=== PATIENT | male | born 1970 | race Caucasian/White ===

== ENCOUNTER 2018-04-14 20:06 | Observation (INO) | payer BC ==
[~2018-04-14] VITALS: Ht 182.9 cm; Wt 141.2 kg
[2018-04-14 20:48] LABS: BASOPHILS % 0.5 % (0.0-1.0); EOSINOPHILS # (AUTO) 0.1 (0.0-0.4); EOSINOPHILS % 0.9 % (0.0-6.0); HEMOGLOBIN 12.7 g/dL (14.0-18.0); LYMPHOCYTES # (AUTO) 1.2 (1.0-3.2); LYMPHOCYTES % 21.1 % (18.0-39.1); MEAN CORPUSCULAR HEMOGLOBIN 32.3 pg (28-32); MEAN CORPUSCULAR HGB CONC 34.3 g/dL (31-35); MEAN CORPUSCULAR VOLUME 94.1 fL (81-99); MONOCYTES # (AUTO) 0.5 (0.2-0.8); MONOCYTES % 8.5 % (4.4-11.3); NEUTROPHILS # (AUTO) 3.9 (2.1-6.9); NEUTROPHILS % 68.8 % (38.7-80.0); PLATELET COUNT 179 x10e3/uL (140-360); RED BLOOD COUNT 3.93 x10e6/uL (4.3-5.7); RED CELL DISTRIBUTION WIDTH 13.4 % (11.7-14.4)
[2018-04-14 20:58] LABS: BILIRUBIN,URINE NEGATIVE (NEGATIVE); CLARITY,URINE CLEAR (CLEAR); COLOR,URINE YELLOW (YELLOW); KETONES,URINE NEGATIVE (NEGATIVE); LEUKOCYTE ESTERASE ,URINE NEGATIVE (NEGATIVE); NITRITE,URINE NEGATIVE (NEGATIVE); PROTEIN,URINE DIPSTICK NEGATIVE (NEGATIVE); URINE UROBILINOGEN 0.2 mg/dL (0.2 - 1)
[2018-04-14 21:00] LABS: AMPHETAMINES SCREEN,URINE NEGATIVE (NEGATIVE); PHENCYCLIDINE SCREEN,URINE NEGATIVE (NEGATIVE)
[2018-04-14 21:01] LABS: BENZODIAZEPINES SCREEN,URINE POSITIVE (NEGATIVE)
[2018-04-14 21:09] LABS: ALBUMIN 3.6 g/dL (3.5-5.0); ALBUMIN/GLOBULIN RATIO 1.1 (0.8-2.0); ANION GAP 16.8 mmol/L (8-16); CALCIUM 9.6 mg/dL (8.4-10.2); CREATININE, SERUM 1.48 mg/dL (0.72-1.25); POTASSIUM 4.8 mmol/L (3.5-5.1)
[2018-04-14 21:14] LABS: B-TYPE NATRIURETIC PEPTIDE2 10.2 pg/mL (0-100)
[2018-04-14 21:16] LABS: CREATINE KINASE MB 0.6 ng/mL (0-5.0)
[2018-04-14] MEDS ORDERED: SODIUM CHLORIDE 0.9% 100 ML 100 ML ONE (22:23)
[2018-04-14] MEDS ORDERED: IOPAMIDOL 370 MG/ML 200 ML INFUS..BTL INJ ONE (22:24)
--- NOTE | 2018-04-14 22:24 | Diagnostic Imaging Report ---
EXAMINATION: Head CT without contrast. HISTORY:Dizziness. COMPARISON:None. TECHNIQUE: Multidetector axial images were obtained from the foramen magnum to the vertex without contrast. The images were reconstructed using brain and bone algorithms. Thin section brain images were reformatted into coronal and sagittal planes. Dose modulation, iterative reconstruction, and/or weight based adjustment of the mA/kV was utilized to reduce the radiation dose to as low as reasonably achievable. Intravenous contrast: None IMAGE QUALITY: Acceptable. FINDINGS: Skull/scalp: No lytic or blastic. lesions. No surgical changes. Parenchyma: No abnormal density. No acute hemorrhage, mass or acute major vascular territorial infarct. Arteries: No density suggestive of thrombosis. Dural sinuses: No abnormal density suggestive of thrombosis. Ventricles: No hydrocephalus or displacement. Extra-axial spaces: No abnormal density. Brain volume: Mild to moderate generalized cerebral volume loss. Craniocervical junction: No mass, Chiari malformation, or basilar invagination. Sella: No mass. Paranasal/mastoid sinuses: Imaged portions unremarkable. IMPRESSION: No acute intracranial abnormality. Mild to moderate generalized cerebral volume loss, advanced for patient's given age. Signed by: Dr. Ada Brandt M.D. on 04/14/2018 10:21 PM
--- NOTE | 2018-04-14 22:34 | Diagnostic Imaging Report ---
CHEST SINGLE (PORTABLE), 04/14/2018 8:15 PM Technique: CHEST SINGLE (PORTABLE) Comparison: None Clinical history: Chest pain Findings: Limited by portable technique and soft tissue attenuation. Normal cardiomediastinal silhouette for technique. Low lung volumes with minimal left basilar atelectasis or scar. No effusion or pneumothorax. Impression: 1. Lines/Tubes: None 2. No acute abnormality. Signed by: Dr Carol Roman MD on 04/14/2018 10:31 PM
--- NOTE | 2018-04-14 22:56 | Diagnostic Imaging Report ---
EXAM: CTA ABD/PELVIS, CTA CHEST INDICATION: \S\CHEST PAIN/BACK PAIN BLACKING OUT \S\Y COMPARISON: None. TECHNIQUE: Chest, abdomen and pelvis were scanned utilizing a multidetector helical scanner from the lung apex to the pubic symphysis. Coronal and sagittal reformations were obtained. CT low dose techniques were utilized, as applicable. 3-D reconstructed images of the vasculature were generated using a specialized workstation. IV CONTRAST: 100 mL Isovue 300/370 FINDINGS: LINES and TUBES: None. LUNGS/AIRWAYS/PLEURA: Linear left basilar atelectasis or scarring. No consolidation or edema. Several incidental 1 to 2 mm nodules, for example in the right middle lobe and lower lobes on image 55, 58, 73, 74. The pleural spaces are clear. HEART AND MEDIASTINUM: No mediastinal, hilar or axillary lymphadenopathy. The heart is normal in size.. There is no pericardial effusion. Scattered coronary artery calcification. HEPATOBILIARY/GALLBLADDER: Possible hepatic steatosis with pericholecystic sparing. No focal lesions SPLEEN: No splenomegaly. PANCREAS: No masses or ductal dilation. ADRENALS: No nodules. KIDNEYS/URETERS: No hydronephrosis. GI TRACT: No obstruction or wall thickening. Normal appendix. PELVIC ORGANS/BLADDER: Unremarkable. LYMPH NODES: No lymphadenopathy. VESSELS: The thoracic aorta and central branch vessels are patent, normal caliber. Left vertebral artery arises from the arch. No significant atherosclerotic change. The abdominal aorta, common iliac, external iliac, visualized internal iliac and common femoral arteries arteries are patent, normal caliber. Minimal right common iliac atherosclerotic calcification. The celiac axis, SMA, bilateral renal arteries, and BRETT are patent. [employer] measurements are as follows: Aortic root, 3.5 cm Mid thoracic aorta, 3.1 cm Transverse aorta 2.6 cm Descending aorta distal to the left subclavian artery takeoff, 2.6 cm Aorta at the diaphragmatic hiatus, 2.4 cm Suprarenal abdominal aorta, 2.1 cm Infrarenal abdominal aorta, 1.7 cm Aorta above the bifurcation, 1.5 cm Right common iliac artery, 0.9 cm Left common iliac artery, 1 cm PERITONEUM / RETROPERITONEUM: No free air or fluid. BONES/SOFT TISSUES: No acute findings. Mild cutaneous/subcutaneous inflammatory changes in the right lower quadrant. IMPRESSION: 1. No acute aortic pathology. 2. No acute abnormality in the chest, abdomen or pelvis. Signed by: Dr Carol Roman MD on 04/14/2018 10:52 PM
[2018-04-15] VITALS (7 sets, daily range): BP systolic 109–149; BP diastolic 77–102
[2018-04-15] MEDS ORDERED: INSULIN REGULAR, HUMAN 100 UNIT/1 ML 3ML VIAL SQ ONE (00:45)
[2018-04-15] MEDS ORDERED: INSULIN REGULAR, HUMAN 100 UNIT/1 ML 3ML VIAL IV ONE (00:45)
[2018-04-15] MEDS ORDERED: DEXTROSE 50% SYRINGE 50 ML IV PRN (01:30)
[2018-04-15] MEDS ORDERED: ONDANSETRON HCL INJ 2 MG/ML VIAL IV PRN (01:30)
[2018-04-15] MEDS ORDERED: ACETAMINOPHEN-1 EAC4 PO (04:27)
[2018-04-15] MEDS ORDERED: LOPRESSOR25 MG PO (04:27)
[2018-04-15] MEDS ORDERED: LISINOPRIL10 MG PO (04:27)
[2018-04-15] MEDS ORDERED: METOPROLOL TART50 MG PO (04:27)
[2018-04-15] MEDS ORDERED: METFORMIN HCL1000 MG PO (04:27)
[2018-04-15] MEDS ORDERED: HYDROCODON-ACE1 EAC9 PO (04:27)
[2018-04-15] MEDS ORDERED: NORTRIPTYLINE H50 MG PO (04:27)
[2018-04-15] MEDS ORDERED: GLIPIZIDE10 MG PO (04:27)
[2018-04-15] MEDS ORDERED: CLOPIDOGREL75 MG PO (04:27)
[2018-04-15] MEDS ORDERED: ATORVASTATIN CA40 MG PO (04:27)
[2018-04-15] MEDS ORDERED: METFORMIN HCL500 MG PO (04:27)
[2018-04-15] MEDS ORDERED: TRAZODONE HCL100 MG PO (04:27)
[2018-04-15] MEDS ORDERED: ZYVOX600 MG (04:27)
[2018-04-15] MEDS ORDERED: PRAZOSIN HCL2 MG PO (04:27)
[2018-04-15] MEDS ORDERED: GABAPENTIN300 MG PO (04:27)
[2018-04-15] MEDS ORDERED: TYLENOL # 31 EA PO (04:27)
[2018-04-15] MEDS ORDERED: DOXAZOSIN MESYLA1 MG (04:27)
[2018-04-15] MEDS ORDERED: PAROXETINE HCL30 MG PO (04:27)
[2018-04-15] MEDS ORDERED: SODIUM CHLORIDE 0.9% 500ML 500 ML IV ONE (04:30)
[2018-04-15 05:37] LABS: CREATINE KINASE MB 0.4 ng/mL (0-5.0)
[2018-04-15 08:05] LABS: BASOPHILS % 0.4 % (0.0-1.0); EOSINOPHILS # (AUTO) 0.1 (0.0-0.4); EOSINOPHILS % 1.6 % (0.0-6.0); HEMATOCRIT 36.8 % (38.2-49.6); HEMOGLOBIN 12.6 g/dL (14.0-18.0); LYMPHOCYTES # (AUTO) 1.7 (1.0-3.2); LYMPHOCYTES % 33.9 % (18.0-39.1); MEAN CORPUSCULAR HEMOGLOBIN 32.1 pg (28-32); MEAN CORPUSCULAR HGB CONC 34.2 g/dL (31-35); MEAN CORPUSCULAR VOLUME 93.6 fL (81-99); MONOCYTES # (AUTO) 0.5 (0.2-0.8); MONOCYTES % 9.4 % (4.4-11.3); NEUTROPHILS # (AUTO) 2.7 (2.1-6.9); NEUTROPHILS % 54.3 % (38.7-80.0); PLATELET COUNT 176 x10e3/uL (140-360); RED BLOOD COUNT 3.93 x10e6/uL (4.3-5.7); RED CELL DISTRIBUTION WIDTH 13.5 % (11.7-14.4)
[2018-04-15 08:25] LABS: ALANINE AMINOTRANSFERASE 43 IU/L (0-55); ALBUMIN 3.6 g/dL (3.5-5.0); ALBUMIN/GLOBULIN RATIO 1.2 (0.8-2.0); ALKALINE PHOSPHATASE 58 IU/L (40-150); ANION GAP 14.1 mmol/L (8-16); BLOOD UREA NITROGEN 12 mg/dL (7-26); BUN/CREATININE RATIO 11 (6-25); CALCIUM 9.7 mg/dL (8.4-10.2); CARBON DIOXIDE 25 mmol/L (22-29); CHLORIDE 99 mmol/L (98-107); CREATININE, SERUM 1.08 mg/dL (0.72-1.25); EST GLOMERULAR FILTRATION RATE > 60 ML/MIN (60-); GLUCOSE 242 mg/dL (74-118); POTASSIUM 4.1 mmol/L (3.5-5.1); SODIUM 134 mmol/L (136-145)
[2018-04-15] MEDS: ASPIRIN 81 MG ENTERIC COATED PO SCH (09:24)
[2018-04-15] MEDS: INSULIN REGULAR, HUMAN 100 UNIT/1 ML 3ML VIAL SQ SCH ×4 (09:24→19:46)
[2018-04-15] MEDS ORDERED: LORAZEPAM INJ 2 MG/ML VIAL IV ONE (13:00)
[2018-04-15] MEDS ORDERED: LORAZEPAM INJ 2 MG/ML VIAL ONE (13:05)
[2018-04-15] MEDS: LORAZEPAM INJ 2 MG/ML VIAL IV PRN ×2 (13:58→19:39)
--- NOTE | 2018-04-15 14:35 | Diagnostic Imaging Report ---
Exam: Brain MRI without IV contrast History: Seizure like activity Comparison studies: Head CT 04/14/2018 Technique: Sagittal axial T2 FS, axial T1, axial DWI, axial T2*GRE and axial T2 FLAIR as well as dedicated coronal T2 and T2 FLAIR sequences through the temporal lobes an hippocampi. Intravenous contrast: None Findings: Exam is moderately limited by artifacts related to patient motion. In spite of this limitation: Scalp: Normal in signal. No masses. Bone marrow: Normal in signal intensity. Brain sulci: Appropriate for age. Ventricles: Normal in size. No hydrocephalus. Extra axial spaces: No mass, no fluid collection. Parenchyma: No mass or hemorrhage. The inferior cerebellum lies outside the imaged [id number] on the DWI sequence. No abnormal restricted diffusion within the included imaged sections through the brain on the DWI sequence. Moreover, no gross signal abnormalities in the cerebellum on the remaining pulse sequences. The hippocampi, forniceal columns and mamillary bodies are grossly normal in size and without gross signal abnormalities. No gross abnormalities of cortical development/cortical migration though the exam is moderately limited evaluation these abnormalities due to degree of motion artifacts. Suprasellar region: No abnormalities. Craniocervical junction: Patent foramen magnum. No Chiari malformation. Vessels: Normal flow-voids in the arteries and sinuses. IMPRESSION: 1. Exam is moderately limited by artifacts related to patient motion. 2. No mass or gross acute abnormalities. If symptoms persist, recommend follow-up MRI when clinically appropriate to further evaluate given the limitations of this exam. Signed by: Dr. Breezy Mena M.D. on 04/15/2018 2:31 PM
[2018-04-15 15:40] LABS: CREATINE KINASE 37 IU/L (30-200)
--- NOTE | 2018-04-15 16:06 | History and Physical ---
Patient in ICU admission. PRIMARY CARE PROVIDER: Is not known. FLIGHT COORDINATOR: Dr. Marion Wilkinson. CHIEF COMPLAINT: Multiple syncopal episodes as evidenced on the emergency room intake. Patient is lethargic now status post MRI of the brain that was done which is unremarkable. The patient may have received benzodiazepines for anxiety and claustrophobia while taking the MRI. HISTORY OF PRESENT ILLNESS: Patient is a 47-year-old male, basically presented through the emergency room with multiple passing-out episodes occurred approximately 2 p.m. on the day of his presentation. The patient subsequently recovered. Event was witnessed by other people. Apparently he may have had episodes apparent of possible seizure. The patient had no seizure activity in the emergency room. He is morbidly obese. Much history is not able to obtain at this time. The patient is only telling that he has lower back pain and he has stopped pain medication some time ago. Baseline diabetes. When he came into the emergency room, his blood sugar was greater than 500. The patient is otherwise stable at this time. PAST MEDICAL HISTORY: Per chart including hypertension, obesity, diabetes type 2, possible COPD, congestive heart failure, recurrent chronic disease spell, osteoarthritis, chronic lower back pain, history of left knee surgery, left wrist surgery, diabetic neuropathy, dyslipidemia, anxiety disorder, possible depression, insomnia, obstructive sleep apnea, morbid obesity. SOCIAL HISTORY: Not available. HOME MEDICATIONS: Prazosin, trazodone, Paxil, nortriptyline, Lipitor, Tylenol No. 4, metoprolol tartrate, metformin, lisinopril, [place], gabapentin, Plavix and Tylenol No. 3. PHYSICAL EXAMINATION: VITAL SIGNS: Temperature is 98. Blood pressure 122/79. Pulse rate is 98. Respirations 20. GENERAL: The patient is sleeping, mildly arousable. HEENT: Normocephalic, atraumatic, anicteric. NECK: Supple grossly. PULMONARY: Diminished breath sounds. CARDIOVASCULAR: Regular rate and rhythm. ABDOMEN: Soft. Morbidly obese. EXTREMITIES: No cyanosis or edema. NEUROLOGIC: Moving all extremities. There is no gross focal deficit. LABORATORY: Urine toxicology including positive for opioid. Valproic acid level is less than 2. Positive for benzodiazepines. Chemistry: Sodium is 134, potassium 4.1, chloride 99, bicarb 25, BUN is 12, creatinine 1.0, glucose is 555. WBC is 5.6, hemoglobin 12.7, hematocrit is 37 and platelet is 179. Urinalysis positive for glucose. IMAGING DONE: Including brain MRI, abdominal and pelvic CTA, brain CT, chest x-ray, chest CTA, otherwise no evidence of acute findings. IMPRESSION: 1. Seizing episode, etiology unclear. This could be drug withdrawal or seizure versus other etiology. 2. Multiple chronic baseline problems, diabetes, hypertension, obesity, obstructive sleep apnea, depression/anxiety, et cetera. 3. Severe hyperglycemia may have contributed to the patient's symptoms as well. PLAN: Insulin sliding-scale coverage. Glycohemoglobin, A1c, TSH. Multiple imaging that is already done, no need for new testing unless needed by Dr. Marion Wilkinson, neurology in consultation. Patient also had an EEG done just now. The results are still pending. The patient is stable. Continue to monitor closely at this time. Resume home medication as appropriate. Job#: [id number] SOL
[2018-04-15] MEDS ORDERED: METOPROLOL TARTRATE 25 MG TAB PO SCH (21:00)
[2018-04-15] MEDS ORDERED: ATORVASTATIN 40 MG TAB PO SCH (21:00)
--- NOTE | 2018-04-15 21:47 | Electroencephalogram ---
DATE OF STUDY: April 15, 2018 REQUESTING PHYSICIAN: Marion Wilkinson MD PATIENT HISTORY: This 47-year-old man with history of possible seizures and posttraumatic stress disorder is having an EEG for evaluation of epileptiform activity. The patient is taking the following medications that might affect the EEG: Ativan. TECHNIQUE: This is a routine, portable EEG, recorded digitally, using the International 10/20 Electrode Placement System, and done in the inpatient setting with the patient awake and drowsy. The EEG is technically limited because of muscle and electrical artifact. DESCRIPTION: Well-organized, well-sustained, 6-7 Hz activity is best seen symmetrically in the posterior head regions. Beta frequency activity is intermixed and is likely due to medication effect. No focal or epileptiform activity is recorded. Sleep is not recorded. Photic stimulation does not produce a driving response. Hyperventilation is not performed. INTERPRETATION: This EEG is abnormal with the patient awake and drowsy due to diffuse slowing of background electrocortical activity compatible with a mild generalized encephalopathy. No epileptiform discharges are seen. Clinical correlation is recommended. Job#: [id number]
[2018-04-15 21:52] LABS: CREATINE KINASE 35 IU/L (30-200)
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
[2018-04-16] VITALS (7 sets, daily range): BP systolic 101–124; BP diastolic 70–89
[2018-04-16] MEDS: ACETAMINOPHEN 325 MG TAB PO PRN ×2 (00:19→08:19)
[2018-04-16 04:37] LABS: BASOPHILS % 0.5 % (0.0-1.0); EOSINOPHILS # (AUTO) 0.1 (0.0-0.4); EOSINOPHILS % 1.5 % (0.0-6.0); HEMATOCRIT 37.5 % (38.2-49.6); HEMOGLOBIN 12.8 g/dL (14.0-18.0); LYMPHOCYTES % 33.5 % (18.0-39.1); MEAN CORPUSCULAR HEMOGLOBIN 32.1 pg (28-32); MEAN CORPUSCULAR HGB CONC 34.1 g/dL (31-35); MONOCYTES # (AUTO) 0.4 (0.2-0.8); MONOCYTES % 6.9 % (4.4-11.3); NEUTROPHILS # (AUTO) 3.4 (2.1-6.9); NEUTROPHILS % 57.3 % (38.7-80.0); PLATELET COUNT 182 x10e3/uL (140-360); RED BLOOD COUNT 3.99 x10e6/uL (4.3-5.7); RED CELL DISTRIBUTION WIDTH 13.5 % (11.7-14.4)
[2018-04-16 05:00] LABS: ALANINE AMINOTRANSFERASE 42 IU/L (0-55); ALBUMIN 3.5 g/dL (3.5-5.0); ALBUMIN/GLOBULIN RATIO 1.1 (0.8-2.0); ALKALINE PHOSPHATASE 52 IU/L (40-150); ANION GAP 15.4 mmol/L (8-16); BLOOD UREA NITROGEN 13 mg/dL (7-26); BUN/CREATININE RATIO 12 (6-25); CALCIUM 9.7 mg/dL (8.4-10.2); CARBON DIOXIDE 25 mmol/L (22-29); CHLORIDE 101 mmol/L (98-107); CREATININE, SERUM 1.08 mg/dL (0.72-1.25); EST GLOMERULAR FILTRATION RATE > 60 ML/MIN (60-); GLUCOSE 205 mg/dL (74-118); POTASSIUM 4.4 mmol/L (3.5-5.1); SODIUM 137 mmol/L (136-145)
[2018-04-16 05:14] LABS: MAGNESIUM 2.2 MG/DL (1.3-2.1); PHOSPHORUS 4.7 MG/DL (2.3-4.7)
[2018-04-16 05:36] LABS: THYROID STIMULATING HORMONE 0.423 uIU/mL (0.350-4.940)
[2018-04-16] MEDS: INSULIN REGULAR, HUMAN 100 UNIT/1 ML 3ML VIAL SQ SCH ×2 (07:30→11:55)
[2018-04-16] MEDS: ASPIRIN 81 MG ENTERIC COATED PO SCH (08:19)
[2018-04-16] MEDS ORDERED: CLOPIDOGREL BISULFATE 75 MG TAB PO SCH (09:00)
[2018-04-16] MEDS ORDERED: LISINOPRIL 10 MG TAB PO SCH (09:00)
--- NOTE | 2018-04-16 16:48 | Discharge Summary ---
FINAL DIAGNOSES: 1. Seizure. 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 2. Multiple chronic baseline problems including posttraumatic stress disorder psychiatric disorder. 3. Chronic pain secondary to lower back pain. SUMMARY: A 47-year-old male came in with a witnessed seizure. Please review the extensive complete comprehensive evaluation by Dr. Marion Wilkinson regarding the patient's both medical and social problems. Patient had a pretty much unremarkable MRI of the brain without any acute finding. He also has a negative EEG as well. The symptoms and event most likely secondary to pseudoseizure. I did discuss with the patient this issue, and he is agreeable to discuss with his psychiatrist upon followup. Patient stable. I will discharge the patient home today. I discussed with the patient at length to follow up with his psychiatrist, and he is very agreeable and expressed understanding of his condition. The patient will discharge home today. Resume home medication. Job#: [id number] EV
== END 2018-04-16 15:13 | disposition home or self-care (01) ==
LOC: ER 20:06 → ERHOLD 04-15 01:36 → ICU 04-15 08:04 → MED/SURG 04-16 13:11
PROVIDERS: ADMIT Internal Medicine; ATTEND Internal Medicine
DX: G40.89 Other seizures (principal); R07.9 Chest pain, unspecified; I50.9 Heart failure, unspecified; E66.01 Morbid (severe) obesity due to excess calories; G47.33 Obstructive sleep apnea (adult) (pediatric); I11.0 Hypertensive heart disease with heart failure; E11.65 Type 2 diabetes mellitus with hyperglycemia; F43.10 Post-traumatic stress disorder, unspecified; Z88.5 Allergy status to narcotic agent; E11.42 Type 2 diabetes mellitus with diabetic polyneuropathy; Z88.0 Allergy status to penicillin; Z82.49 Family history of ischemic heart disease and other diseases of the circulatory system; Z83.3 Family history of diabetes mellitus; Z68.41 Body mass index [BMI] 40.0-44.9, adult
CPT/HCPCS: 36415 ×3; 70450; 70551; 71045; 71275; 74174; 80053 ×3; 80164; 80307; 81001; 82550 ×2; 82553 ×2; 82948 ×2; 83036; 83605; 83735; 83880; 84100; 84443; 84484 ×2; 85025 ×3; 93005; 95812; 99284; G0378 ×2; J2060; J2405 ×2; Q9967

== ENCOUNTER 2018-05-06 01:57 | Emergency (ER) | payer BC ==
[~2018-05-06] VITALS: Ht 182.9 cm; Wt 141.1 kg
[~2018-05-06 01:57] MED LIST: ACETAMINOPHEN-1 EAC4 PO; ATORVASTATIN CA40 MG PO; CLOPIDOGREL75 MG PO; DOXAZOSIN MESYLA1 MG; GABAPENTIN300 MG PO; GLIPIZIDE10 MG PO; HYDROCODON-ACE1 EAC9 PO; LISINOPRIL10 MG PO; LOPRESSOR25 MG PO; METFORMIN HCL1000 MG PO; METFORMIN HCL500 MG PO; METOPROLOL TART50 MG PO; NORTRIPTYLINE H50 MG PO; PAROXETINE HCL30 MG PO; PRAZOSIN HCL2 MG PO; TRAZODONE HCL100 MG PO; TYLENOL # 31 EA PO; ZYVOX600 MG
[2018-05-06] MEDS ORDERED: SODIUM CHLORIDE 0.9% 1000ML 1,000 ML IV STA (02:03)
[2018-05-06] MEDS ORDERED: ASPIRIN 81 MG CHEW TAB PO ONE (02:15)
[2018-05-06 02:29] LABS: BASOPHILS % 0.3 % (0.0-1.0); EOSINOPHILS # (AUTO) 0.1 (0.0-0.4); EOSINOPHILS % 0.7 % (0.0-6.0); HEMATOCRIT 33.9 % (38.2-49.6); HEMOGLOBIN 11.7 g/dL (14.0-18.0); LYMPHOCYTES # (AUTO) 1.4 (1.0-3.2); LYMPHOCYTES % 20.4 % (18.0-39.1); MEAN CORPUSCULAR HEMOGLOBIN 32.1 pg (28-32); MEAN CORPUSCULAR HGB CONC 34.5 g/dL (31-35); MEAN CORPUSCULAR VOLUME 92.9 fL (81-99); MONOCYTES # (AUTO) 0.4 (0.2-0.8); NEUTROPHILS % 72.2 % (38.7-80.0); PLATELET COUNT 154 x10e3/uL (140-360); RED BLOOD COUNT 3.65 x10e6/uL (4.3-5.7); RED CELL DISTRIBUTION WIDTH 13.2 % (11.7-14.4)
--- NOTE | 2018-05-06 02:47 | Diagnostic Imaging Report ---
EXAM: CHEST SINGLE (PORTABLE), AP 1 view INDICATION: Dizzy, fall COMPARISON: AP view the chest vertebra 2017 FINDINGS: LINES/TUBES: None LUNGS: No consolidations or edema. PLEURA: No effusions or pneumothorax. HEART AND MEDIASTINUM: Normal size and contour. BONES AND SOFT TISSUES: No acute findings. IMPRESSION: No acute thoracic abnormality. Signed by: Dr. Erma Calderon M.D. on 05/06/2018 2:44 AM
[2018-05-06 02:50] LABS: ALANINE AMINOTRANSFERASE 36 IU/L (0-55); ALBUMIN 3.6 g/dL (3.5-5.0); ALBUMIN/GLOBULIN RATIO 1.2 (0.8-2.0); ALKALINE PHOSPHATASE 72 IU/L (40-150); BLOOD UREA NITROGEN 10 mg/dL (7-26); BUN/CREATININE RATIO 9 (6-25); CALCIUM 9.5 mg/dL (8.4-10.2); CARBON DIOXIDE 21 mmol/L (22-29); CHLORIDE 100 mmol/L (98-107); CREATINE KINASE 58 IU/L (30-200); CREATININE, SERUM 1.16 mg/dL (0.72-1.25); EST GLOMERULAR FILTRATION RATE > 60 ML/MIN (60-); GLUCOSE 251 mg/dL (74-118); SODIUM 135 mmol/L (136-145)
[2018-05-06] MEDS ORDERED: TETANUS/DIPHTHERIA TOX ADULT 0.5 ML SYR ONE (02:52)
[2018-05-06 03:05] LABS: BILIRUBIN,URINE NEGATIVE (NEGATIVE); CLARITY,URINE CLEAR (CLEAR); COLOR,URINE YELLOW (YELLOW); KETONES,URINE NEGATIVE (NEGATIVE); LEUKOCYTE ESTERASE ,URINE NEGATIVE (NEGATIVE); NITRITE,URINE NEGATIVE (NEGATIVE); PROTEIN,URINE DIPSTICK NEGATIVE (NEGATIVE); RBC,URINE 0-5 /HPF (0-5); URINE UROBILINOGEN 0.2 mg/dL (0.2 - 1); WBC,URINE (MAN) 0-5 /HPF (0-5)
[2018-05-06 03:06] LABS: MUCUS,URINE FEW (RARE)
[2018-05-06] MEDS ORDERED: NITROGLYCERIN0.4 MG SL (03:21)
[2018-05-06] MEDS ORDERED: METOPROLOL TART50 MG PO (03:21)
[2018-05-06] MEDS ORDERED: GABITRIL4 MG PO (03:21)
[2018-05-06] MEDS ORDERED: ATORVASTATIN CA80 MG PO (03:21)
[2018-05-06] MEDS ORDERED: ASPIRIN81 MG PO (03:21)
[2018-05-06] MEDS ORDERED: DIAZEPAM10 MG PO (03:21)
[2018-05-06] MEDS ORDERED: TRAZODONE HCL300 MG PO (03:21)
[2018-05-06] MEDS ORDERED: DOXEPIN HCL25 MG PO (03:21)
[2018-05-06] MEDS ORDERED: DOXAZOSIN MESYLA1 MG PO (03:21)
[2018-05-06] MEDS ORDERED: GLIPIZIDE10 MG PO (03:21)
[2018-05-06] MEDS ORDERED: JANUVIA50 MG PO (03:21)
[2018-05-06] MEDS ORDERED: NORTRIPTYLINE H25 MG PO (03:21)
[2018-05-06] MEDS ORDERED: METOPROLOL SUCC25 MG PO (03:21)
[2018-05-06 05:28] LABS: CREATINE KINASE MB 0.4 ng/mL (0-5.0)
[2018-05-06] MEDS ORDERED: HYDROCODONE/APAP 7.5MG-325MG 1 EA TAB PO STA (06:13)
== END 2018-05-06 06:33 | disposition home or self-care (01) ==
LOC: ER 01:57
DX: R42 Dizziness and giddiness (principal); R53.1 Weakness; R07.2 Precordial pain
CPT/HCPCS: 36415; 71045; 80053; 81001; 82550; 82553; 84484; 85025; 90471; 90714; 93005; 99284; J7030

== ENCOUNTER 2018-05-27 15:43 | Emergency (ER) | payer BC ==
[~2018-05-27] VITALS: Ht 182.9 cm; Wt 141.1 kg
[~2018-05-27 15:43] MED LIST changes: +ASPIRIN81 MG PO; +ATORVASTATIN CA80 MG PO; +DIAZEPAM10 MG PO; +DOXAZOSIN MESYLA1 MG PO; +DOXEPIN HCL25 MG PO; +GABITRIL4 MG PO; +JANUVIA50 MG PO; +METOPROLOL SUCC25 MG PO; +NITROGLYCERIN0.4 MG SL; +NORTRIPTYLINE H25 MG PO; +TRAZODONE HCL300 MG PO
--- OUTSIDE RECORDS SUMMARY | 2018-05-27 15:46 | XMS REPORT | Clinical Summary ---
Author Author [facility] Address Unknown Phone Unavailable Care Team Providers Care Stock And Station Agent Name Role Phone PCP Unavailable Allergies Active Allergy Reactions Severity Noted Date Comments Codeine 05/07/2018 Methylprednisolone Itching 12/24/2016 Penicillins Itching 12/24/2016 Ketorolac Itching 12/24/2016 Current Medications Prescription Sig. Disp. Refills Start End Date Status Date hydrOXYzine (VISTARIL) 50 Take 50 mg by mouth 3 Active MG capsule (three) times daily as needed for Itching. PARoxetine (PAXIL) 40 MG Take 60 mg by mouth every Active tabletIndications: morning. Depression associated with Bipolar Disorder gabapentin (NEURONTIN) Take 300 mg by mouth. Active 300 MG capsule nortriptyline (PAMELOR) Take 50 mg by mouth Active 50 MG capsuleIndications: nightly. depression albuterol HFA (VENTOLIN Inhale 1 puff by mouth Active HFA) 90 mcg/actuation via inhaler every 6 (six) inhaler hours as needed for Wheezing. metoprolol (TOPROL-XL) 25 Take 1.5 tablets (37.5 mg 135 tablet 0 05/09/20 08/07/20 Active MG 24 hr tablet total) by mouth daily for 18 18 90 days. aspirin 81 MG chewable Take 1 tablet (81 mg 30 tablet 1 05/10/20 Active tablet total) by mouth daily. 18 isosorbide mononitrate Take 1 tablet (30 mg 90 tablet 1 05/10/20 Active (IMDUR) 30 MG 24 hr total) by mouth daily. 18 tablet insulin pen needles (BD Use as directed. Dispense 100 each 0 05/09/20 Active ULTRA-FINE LUZ) 4 mm x as written, do not 18 32 G substitute. Brand medically necessary.. HYDROcodone-acetaminophen Take 1 tablet by mouth 2 15 tablet 0 05/09/20 Active (NORCO 5-325) 5-325 mg (two) times daily as 18 per tablet needed for Pain. Max Daily Amount: 2 tablets metFORMIN (GLUCOPHAGE) Take 1 tablet (1,000 mg 60 tablet 0 05/11/20 05/11/20 Active 1000 MG tablet total) by mouth 2 (two) 18 19 times daily with breakfast and dinner. SITagliptin (JANUVIA) 100 Take 1 tablet (100 mg 30 tablet 0 05/11/20 05/11/20 Active MG tablet total) by mouth daily. 18 19 insulin glargine (LANTUS) Inject 25 Units 15 mL 0 05/11/20 06/10/20 Active 100 unit/mL (3 mL) InPn subcutaneously 2 (two) 18 18 times daily for 30 days. insulin lispro (HUMALOG Inject 18 Units 20 mL 0 05/11/20 Active KWIKPEN INSULIN) 100 subcutaneously 3 (three) 18 unit/mL InPn times daily with meals. valsartan (DIOVAN) 160 MG Take 160 mg by mouth 05/09/20 Discontin tablet daily. 18 ued lisinopril Take 10 mg by mouth 05/09/20 Discontin (PRINIVIL,ZESTRIL) 5 MG daily. 18 ued tablet metoprolol (TOPROL-XL) 25 Take 25 mg by mouth. 05/09/20 Discontin MG 24 hr tablet 18 ued glipiZIDE-metFORMIN Take 1 tablet by mouth 2 05/10/20 Discontin (METAGLIP) 5-500 mg per (two) times daily before 18 ued tablet meals. norethindrone (MICRONOR) Take 1 tablet by mouth 05/08/20 Discontin 0.35 mg per tablet daily. 18 ued insulin glargine (LANTUS) Inject 20 Units 6 mL 1 05/09/20 05/11/20 Discontin 100 unit/mL (3 mL) InPn subcutaneously every 18 18 ued morning for 30 days. metFORMIN (GLUCOPHAGE) Take 1 tablet (500 mg 0 05/10/20 05/11/20 Discontin 500 MG tablet total) by mouth 2 (two) 18 18 ued times daily with breakfast and dinner. SITagliptin (JANUVIA) 25 Take 1 tablet (25 mg 0 05/10/20 05/11/20 Discontin MG tablet total) by mouth daily. 18 18 ued Active Problems Problem Noted Date Hyperglycemia 05/10/2018 Chest pain 12/25/2016 Tobacco abuse 12/25/2016 CAD (coronary artery disease) 12/25/2016 Anxiety 12/25/2016 PTSD (post-traumatic stress disorder) 12/25/2016 Encounters Date Type Specialty Care Team Description 05/20/2018 Telephone Cardiology Mouna Krishna RN Diabetes 05/19/2018 Telephone Cardiology Mouna Krishna RN Diabetes 05/07/2018 Hospital Cardiology Juli Saenz MD Precordial pain (Primary - Encounter Jelani Rao);Tobacco abuse;History 05/11/2018 MD [place] of [place] (myocardial MarthaTesfaye MD infarction);Dizziness;Anx iety;Coronary artery disease involving [place] coronary artery of [place] heart with unstable angina pectoris (HCC);PTSD (post-traumatic stress disorder);Hyperglycemia;T ype 2 diabetes mellitus treated with insulin (HCC) 05/07/2018 Orders Only General Internal Medicine after 05/26/2017 Immunizations Name Dates Previously Given Next Due Pneumococcal Conjugate 05/11/2018 (Prevnar) 13-Valent Social History Tobacco Use Types Packs/Day Years Used Date Current Some Day Smoker Sex Assigned at Date Recorded Not on file Last Filed Vital Signs Vital Sign Reading Time Taken Blood Pressure 112/63 05/11/2018 11:51 AM CDT Pulse 92 05/11/2018 11:51 AM CDT Temperature 36.7 C (98.1 F) 05/11/2018 11:51 AM CDT Respiratory Rate 18 05/11/2018 11:51 AM CDT Oxygen Saturation 96% 05/11/2018 11:51 AM CDT Inhaled Oxygen - - Concentration Weight 142 kg (313 lb 1.6 oz) 05/11/2018 8:00 AM CDT Height 182.9 cm (6') 05/07/2018 6:46 PM CDT Body Mass Index 42.46 05/11/2018 8:00 AM CDT Plan of Treatment Not on file Implants Implanted Type Area Manager Supply Chain Device Expiration Model / Identifier Date Serial / Lot Closure Sys Perclose Progl 6fr Cardiovasc Right: GARCIA [employer]:VASC 05/09/2018 [id number] / [id number] - [id number] yanna Partida DEV / Implanted: Qty: 1 on 12/26/2016 by [id number] Kate Loving MD Results * RHYTHM STRIP - SCAN (05/13/2018 2:01 PM) * POC-Glucose meter (05/11/2018 1:59 PM) Only the most recent of 22 results within the time period is included. Component Value Ref Range POC-Glucose Meter 219 (H)Comment: TESTED AT [address] 70 - 110 mg/dL [place] [address] Specimen Performing [place] [address] * Basic metabolic panel (05/10/2018 5:55 AM) Only the most recent of 4 results within the time period is included. Component Value Ref Range Sodium 133 (L) 136 - 145 meq/L Potassium 4.1 3.5 - 5.1 meq/L Chloride 97 (L) 98 - 107 meq/L CO2 26 22 - 29 meq/L BUN 14 7 - 21 mg/dL Creatinine 1.14 0.57 - 1.25 mg/dL Glucose 304 (H) 70 - 105 mg/dL Calcium 9.5 8.4 - 10.2 mg/dL EGFR 69Comment: ESTIMATED GFR IS NOT ACCURATE mL/min/1.73 sq m CREATININE CLEARANCE IN PREDICTING GLOMERULAR FILTRATION RATE. ESTIMATED GFR IS NOT APPLICABLE FOR DIALYSIS PATIENTS. Specimen Performing Laboratory [facility], [place] [address] * Hemoglobin A1c (05/09/2018 1:09 PM) Component Value Ref Range Hemoglobin A1C 8.3 (H) 4.3 - 6.1 % Specimen Performing Laboratory [facility], [place] [address] * MR brain without IV contrast (05/09/2018 12:49 PM) Specimen Performing Laboratory JW Player RIS Narrative FINAL REPORT MRI brain without contrast INDICATION: Headache, dizziness. TECHNIQUE: Multiplanar, multisequence MR imaging of the brain was performed utilizing the following imaging sequences: Axial T2, FLAIR, GRE, and DWI; sagittal and coronal T1 COMPARISON: None available FINDINGS: There is no acute infarct, hematoma, extra-axial collection, hydrocephalus, or mass effect. The major vascular flow voids are maintained. No significant white matter disease is evident. There is generalized parenchymal volume loss. There is minimal chronic sinus mucosal thickening with well aerated mastoid air cells. The globes appear proptotic. The sella, craniocervical junction, and calvarium are unremarkable. IMPRESSION: 1. No evidence of acute infarct, hemorrhage, or hydrocephalus. 2. Additional chronic appearing findings as discussed above. Signed: Raffi Mendez MD Report Verified Date/Time:05/09/2018 11:23:03 Reading Location: [address] Neuro Reading Room Procedure Note Interface, External Ris In - 05/09/2018 12:50 PM CDT FINAL REPORT MRI brain without contrast INDICATION: Headache, dizziness. TECHNIQUE: Multiplanar, multisequence MR imaging of the brain was performed utilizing the following imaging sequences: Axial T2, FLAIR, GRE, and DWI; sagittal and coronal T1 COMPARISON: None available FINDINGS: There is no acute infarct, hematoma, extra-axial collection, hydrocephalus, or mass effect. The major vascular flow voids are maintained. No significant white matter disease is evident. There is generalized parenchymal volume loss. There is minimal chronic sinus mucosal thickening with well aerated mastoid air cells. The globes appear proptotic. The sella, craniocervical junction, and calvarium are unremarkable. IMPRESSION: 1. No evidence of acute infarct, hemorrhage, or hydrocephalus. 2. Additional chronic appearing findings as discussed above. Signed: Raffi Mendez MD Report Verified Date/Time: 05/09/2018 11:23:03 Reading Location: [address] Neuro Reading Room * EEG AWAKE AND DROWSY (05/08/2018 2:27 PM) Specimen Performing Laboratory [facility] Narrative Neurophysiology Electroencephalogram Report DATE OF REPORT: 05/08/18 Date(s) of Study: 05/08/2018 ACC: [id number] Start time: 05/08/2018 at 13:55 Stop time: 05/08/2018 at 14:16 ICD-10: R56.9 CPT Code: 63502 HISTORY: 47 y old male with h/o obesity, HTN, DM, CAD s/p PCI presented with chest pressure. He has h/o dizziness and falls. MEDICATIONS THAT COULD AFFECT EEG: aspirin, gabapentin, metoprolol TECHNICAL SUMMARY: This is a digital video EEG recorded with 32 input channels reviewed with bipolar and referential montages using the modified combinatorial system nomenclature. DESCRIPTION OF RECORD: BACKGROUND: The entire recording is obtained in sleep. There are symmetric sleep spindles and K-complexes. There is no posterior dominant rhythm or anterior-posterior gradient. There are no ictal or inter-ictal epileptiform discharges. HYPERVENTILATION: Hyperventilation was not performed. PHOTIC STIMULATION: Photic stimulation was not performed. EVENTS: None ELECTROCARDIOGRAM: A single lead EKG showed a normal rate, rhythm, and appearance. IMPRESSION:Normal EEG in sleep CLINICAL COMMENT: An EEG without epileptiform discharges does not exclude the possibility of epilepsy.If the clinical suspicion of epilepsy remains, consider additional EEG recordings. Consider further EEG recordings to capture awake state. Wicho Salazar MD Clinical Neurophysiology Fellow oRcky Leija MD, MS Clinical Neurophysiology/Epilepsy Attending Procedure Note Interface, External Ris In - 05/08/2018 3:19 PM CDT Neurophysiology Electroencephalogram Report DATE OF REPORT: 05/08/18 Date(s) of Study: 05/08/2018 ACC: [id number] Start time: 05/08/2018 at 13:55 Stop time: 05/08/2018 at 14:16 ICD-10: R56.9 CPT Code: 01736 HISTORY: 47 y old male with h/o obesity, HTN, DM, CAD s/p PCI presented with chest pressure. He has h/o dizziness and falls. MEDICATIONS THAT COULD AFFECT EEG: aspirin, gabapentin, metoprolol TECHNICAL SUMMARY: This is a digital video EEG recorded with 32 input channels reviewed with bipolar and referential montages using the modified combinatorial system nomenclature. DESCRIPTION OF RECORD: BACKGROUND: The entire recording is obtained in sleep. There are symmetric sleep spindles and K-complexes. There is no posterior dominant rhythm or anterior-posterior gradient. There are no ictal or inter-ictal epileptiform discharges. HYPERVENTILATION: Hyperventilation was not performed. PHOTIC STIMULATION: Photic stimulation was not performed. EVENTS: None ELECTROCARDIOGRAM: A single lead EKG showed a normal rate, rhythm, and appearance. IMPRESSION: Normal EEG in sleep CLINICAL COMMENT: An EEG without epileptiform discharges does not exclude the possibility of epilepsy. If the clinical suspicion of epilepsy remains, consider additional EEG recordings. Consider further EEG recordings to capture awake state. Wicho Salazar MD Clinical Neurophysiology Fellow Rocky Leija MD, MS Clinical Neurophysiology/Epilepsy Attending * CBC with platelet count + automated diff (05/08/2018 6:07 AM) Only the most recent of 2 results within the time period is included. Component Value Ref Range WBC 5.5 3.5 - 10.5 K/L RBC 3.92 (L) 4.63 - 6.08 M/L Hemoglobin 12.2 (L) 13.7 - 17.5 GM/DL Hematocrit 37.5 (L) 40.1 - 51.0 % MCV 95.7 (H) 79.0 - 92.2 fL MCH 31.1 25.7 - 32.2 pg MCHC 32.5 32.3 - 36.5 GM/DL RDW 13.6 11.6 - 14.4 % Platelets 181 150 - 450 K/CU MM MPV 9.0 (L) 9.4 - 12.4 fL nRBC 0 0 - 0 /100 WBC % Neutros 58 % % Lymphs 33 % % Monos 7 % % Eos 1 % % Baso 0 % # Neutros 3.14 1.78 - 5.38 K/L # Lymphs 1.82 1.32 - 3.57 K/L # Monos 0.37 0.30 - 0.82 K/L # Eos 0.07 0.04 - 0.54 K/L # Baso 0.02 0.01 - 0.08 K/L Immature 1 0 - 1 % Granulocytes-Relative Specimen Performing Laboratory [facility] [place], [address] [address] * Troponin I (05/08/2018 6:07 AM) Only the most recent of 3 results within the time period is included. Component Value Ref Range Troponin I <0.01 0.00 - 0.03 ng/mL Specimen Performing Laboratory [facility] [place], [address] [address] Narrative Troponin I (TnI) levels must be interpreted in the context of the presenting symptoms and the clinical findings. Elevated TnI levels indicate myocardial damage, but are not specific for ischemic heart disease. Elevated TnI levels are seen in patients with other cardiac conditions (including myocarditis and congestive heart failure), and slight TnI elevations occur in patients with other conditions, including sepsis, renal failure, acidosis, acute neurological disease, and persistent tachyarrhythmia. * CBC with platelet count + automated diff (05/08/2018 6:07 AM) Only the most recent of 2 results within the time period is included. Specimen Performing Laboratory Blood Narrative The following orders were created for panel order CBC with platelet count + automated diff. Procedure Abnormality Status --------- ------ CBC with platelet count ...[[id number]]AbnormalFinal result Please view results for these tests on the individual orders. * Lipid panel (05/08/2018 6:07 AM) Component Value Ref Range Triglycerides 285 mg/dL Cholesterol 147 mg/dL HDL 35 mg/dL LDL Calculated 55 mg/dL Specimen Performing Laboratory [facility] [place], [address] [address] Narrative Triglyceride Reference Range: Low Risk <150 [id number] High Risk 200-499 Very High Risk>=500 Cholesterol Reference Range: Low Risk <200 [id number] High Risk>240 HDL Cholesterol Reference Range: Low Risk >=60 High Risk <40 LDL Cholesterol Reference Range: Optimal<100 Near [id number] [id number] [id number] Very High >=190 * PT/PTT (05/07/2018 2:01 PM) Component Value Ref Range Protime 13.2 11.7 - 14.7 seconds INR 1.0 <=5.9 PTT 24.3 22.5 - 36.0 seconds Specimen Performing Laboratory [facility] [place], [address] [address] Narrative RECOMMENDED COUMADIN/WARFARIN INR THERAPY RANGES STANDARD DOSE: 2.0 - 3.0 Includes: PROPHYLAXIS for venous thrombosis, systemic embolization; TREATMENT for venous thrombosis and/or pulmonary embolus. HIGH RISK: Target INR is 2.5-3.5 for patients with mechanical heart valves. * B-type Natriuretic Factor (BNP) (05/07/2018 2:01 PM) Component Value Ref Range BNP 20 0 - 100 pg/mL Specimen Performing Laboratory [facility] [place], [address] [address] * Magnesium (05/07/2018 2:01 PM) Component Value Ref Range Magnesium 1.8 1.6 - 2.6 mg/dL Specimen Performing Laboratory [facility] [place], [address] [address] * Creatine Kinase (CK), Total and MB (not available at [facility] [place]) (05/07/2018 2:01 PM) Component Value Ref Range Total CK 56 29 - 200 U/L CK-MB 0.5 0.0 - 6.6 ng/mL MB Relative Index 0.9 % Specimen Performing Laboratory [facility] [place], [address] [address] Narrative CK-MB Reference Range: <6.7Normal 6.7-10.0Borderline >10.0 Abnormal * XR chest 1 view portable / bedside (05/07/2018 1:55 PM) Specimen Performing Laboratory GE RIS Narrative FINAL REPORT TECHNIQUE: Single view of the chest. COMPARISON: 12/31/2016 FINDINGS: The cardiac silhouette is within normal limits.Mediastinum is unremarkable. Lungs are clear.No acute skeletal abnormality. There is mild thoracolumbar scoliosis. Soft tissues appear unremarkable. IMPRESSION: No acute cardiopulmonary disease. Signed: Osiel Snow MD Report Verified Date/Time:05/07/2018 14:53:36 Reading Location: [address] Consult Reading Room Procedure Note Interface, External Ris In - 05/07/2018 3:25 PM CDT FINAL REPORT TECHNIQUE: Single view of the chest. COMPARISON: 12/31/2016 FINDINGS: The cardiac silhouette is within normal limits. Mediastinum is unremarkable. Lungs are clear. No acute skeletal abnormality. There is mild thoracolumbar scoliosis. Soft tissues appear unremarkable. IMPRESSION: No acute cardiopulmonary disease. Signed: Osiel Snow MD Report Verified Date/Time: 05/07/2018 14:53:36 Reading Location: [facility] [id number] Consult Reading Room * ECG 12 lead (05/07/2018 1:36 PM) Specimen Performing Laboratory GE MUSE Narrative Ventricular Rate 100 BPM Atrial Rate 100 BPM P-R Interval 194 ms QRS Duration 114 ms Q-T Interval 346 ms QTC Calculation(Bazett) 446 ms P [place] 59 degrees R [place] 63 degrees T [place] 62 degrees Sinus rhythm with occasional Premature ventricular complexes and Fusion complexes Otherwise normal ECG When compared with ECG of 31-DEC-2016 17:43, Fusion complexes are now Present Premature ventricular complexes are now Present QRS duration has increased ST no longer depressed in Anterior leads Confirmed by MD TELLO JOSEPH P ([id number]) on 05/10/2018 6:12:11 AM Procedure Note Interface, External Ris In - 05/10/2018 6:12 AM CDT Ventricular Rate 100 BPM Atrial Rate 100 BPM P-R Interval 194 ms QRS Duration 114 ms Q-T Interval 346 ms QTC Calculation(Bazett) 446 ms P [place] 59 degrees R [place] 63 degrees T [place] 62 degrees Sinus rhythm with occasional Premature ventricular complexes and Fusion complexes Otherwise normal ECG When compared with ECG of 31-DEC-2016 17:43, Fusion complexes are now Present Premature ventricular complexes are now Present QRS duration has increased ST no longer depressed in Anterior leads Confirmed by MD TELLO JOSEPH P ([id number]) on 05/10/2018 6:12:11 AM after 05/26/2017
--- OUTSIDE RECORDS SUMMARY | 2018-05-27 15:47 | XMS REPORT ---
Author Author [facility] Address Unknown Phone Unavailable Care Team Providers Care Library Customer Service Clerk Name Role Phone UNKNOWN, REFFERING PP Unavailable Maximus YO Unavailable Unavailable Massimo GREER Unavailable Unavailable ERIC BRO Unavailable Unavailable BONITA RODRIGES Unavailable Unavailable AURORA GUERRERO Unavailable Unavailable Payers Payer Name Policy Type Policy Number Effective Date Expiration Date Problems This patient has no known problems. Allergies, Adverse Reactions, Alerts Allergy Name Allergy Type Status Severity Reaction(s) Onset Date Inactive Date Treating Clinician Comments ketorolac tromethamine DA Active MN 2018-05-13 00:00:00 Penicillins DA Active U 2018-05-13 00:00:00 codeine DA Active MO 2018-05-13 00:00:00 hydrocodone DA Active MO 2018-05-13 00:00:00 acetaminophen DA Active MO 2018-05-13 00:00:00 methylprednisolone DA Active SV 2018-05-13 00:00:00 ketorolac tromethamine DA Active MN 2018-05-05 00:00:00 Penicillins DA Active U 2018-05-05 00:00:00 codeine DA Active MO 2018-05-05 00:00:00 methylprednisolone DA Active SV 2018-05-05 00:00:00 ketorolac tromethamine DA Active MN 2018-05-04 00:00:00 Penicillins DA Active U 2018-05-04 00:00:00 codeine DA Active MO 2018-05-04 00:00:00 methylprednisolone DA Active SV 2018-05-04 00:00:00 ketorolac tromethamine DA Active MN 2017-03-21 00:00:00 Penicillins DA Active U 2017-03-21 00:00:00 methylprednisolone DA Active SV 2017-03-21 00:00:00 Medications This patient has no known medications. Encounters Start Date/Time End Date/Time Encounter Type Admission Type Attending [facility] Care Facility Care Department Encounter ID 2017-04-12 23:48:00 2017-04-12 23:48:00 Emergency E BONITA RODRIGES [facility] [id number] Results Test Description Test Time Test Comments Text Results Atomic Results Result Comments POCT-GLUCOSE METER 2018-05-11 20:58:00 POC-GLUCOSE METER (BEAKER) (test zjnz=2040) 219 mg/dL 70-110 TESTED AT [address] [address] POCT-GLUCOSE [id number] 11:52:00* Test Item Value Reference Range Comments POC-GLUCOSE METER (BEAKER) (test lhmq=1867) 259 mg/dL 70-110 TESTED AT [address] [address] POCT-GLUCOSE [id number] 09:29:00* Test Item Value Reference Range Comments POC-GLUCOSE METER (BEAKER) (test qifv=6545) 194 mg/dL 70-110 TESTED AT [address] [address] POCT-GLUCOSE [id number] 08:13:00* Test Item Value Reference Range Comments POC-GLUCOSE METER (BEAKER) (test ckws=9396) 210 mg/dL 70-110 TESTED AT [address] [address] POCT-GLUCOSE [id number] 21:43:00* Test Item Value Reference Range Comments POC-GLUCOSE METER (BEAKER) (test pqqt=3661) 370 mg/dL 70-110 TESTED AT [address] [address] POCT-GLUCOSE [id number] 16:54:00* Test Item Value Reference Range Comments POC-GLUCOSE METER (BEAKER) (test bnwx=4589) 391 mg/dL 70-110 TESTED AT [address] [address] POCT-GLUCOSE [id number] 15:01:00* Test Item Value Reference Range Comments POC-GLUCOSE METER (BEAKER) (test aemp=0188) 482 mg/dL 70-110 Notified RN MD/TESTED AT [address] [address] POCT-GLUCOSE [id number] 14:57:00* Test Item Value Reference Range Comments POC-GLUCOSE METER (BEAKER) (test ffmz=0325) 489 mg/dL 70-110 Notified RN MD/TESTED AT [address] [address] POCT-GLUCOSE [id number] 13:47:00* Test Item Value Reference Range Comments POC-GLUCOSE METER (BEAKER) (test jrbd=4029) 422 mg/dL 70-110 Notified RN MD/TESTED AT [address] [address] POCT-GLUCOSE [id number] 12:20:00* Test Item Value Reference Range Comments POC-GLUCOSE METER (BEAKER) (test reej=3020) 373 mg/dL 70-110 Notified SHANTAL MD/TESTED AT [address] [address] POCT-GLUCOSE [id number] 07:59:00* Test Item Value Reference Range Comments POC-GLUCOSE METER (BEAKER) (test okok=1305) 260 mg/dL 70-110 TESTED AT [address] [address] BASIC METABOLIC [id number] 07:14:00* Test Item Value Reference Range Comments SODIUM (BEAKER) (test ahth=176) 133 meq/L 136-145 POTASSIUM (BEAKER) (test sfrg=523) 4.1 meq/L 3.5-5.1 CHLORIDE (BEAKER) (test sgie=561) 97 meq/L 98-107 CO2 (BEAKER) (test oiyd=310) 26 meq/L 22-29 BLOOD UREA NITROGEN (BEAKER) (test vnuy=037) 14 mg/dL 7-21 CREATININE (BEAKER) (test xjef=374) 1.14 mg/dL 0.57-1.25 GLUCOSE RANDOM (BEAKER) (test wsoh=575) 304 mg/dL 70-105 CALCIUM (BEAKER) (test njbi=237) 9.5 mg/dL 8.4-10.2 EGFR (BEAKER) (test jbiq=6408) 69 mL/min/1.73 sq m ESTIMATED GFR IS NOT ACCURATE CREATININE CLEARANCE IN PREDICTING GLOMERULAR FILTRATION RATE. ESTIMATED GFR IS NOT APPLICABLE FOR DIALYSIS PATIENTS. POCT-GLUCOSE [id number] 21:52:00* Test Item Value Reference Range Comments POC-GLUCOSE METER (BEAKER) (test xdpo=9153) 228 mg/dL 70-110 TESTED AT [place] [address] POCT-GLUCOSE [id number] 19:01:00* Test Item Value Reference Range Comments POC-GLUCOSE METER (BEAKER) (test acnn=7564) 350 mg/dL 70-110 Will Repeat Test/TESTED AT [place] [address] POCT-GLUCOSE [id number] 16:08:00* Test Item Value Reference Range Comments POC-GLUCOSE METER (BEAKER) (test nxzj=9357) 397 mg/dL 70-110 Will Repeat Test/TESTED AT [place] [address] HEMOGLOBIN [id number] 14:30:00* Test Item Value Reference Range Comments HEMOGLOBIN A1C (BEAKER) (test jzyu=554) 8.3 % 4.3-6.1 POCT-GLUCOSE [id number] 14:11:00* Test Item Value Reference Range Comments POC-GLUCOSE METER (BEAKER) (test eupm=0030) 376 mg/dL 70-110 Will Repeat Test/TESTED AT [place] [address] POCT-GLUCOSE [id number] 12:54:00* Test Item Value Reference Range Comments POC-GLUCOSE METER (BEAKER) (test awog=2043) 412 mg/dL 70-110 Will Repeat Test/TESTED AT [place] [address] MR, BRAIN, WITHOUT [id number] 11:23:00FINAL REPORT MRI brain without contrast INDICATION: Headache, dizziness. TECHNIQUE: Multiplanar, multisequence MR imaging of the brain was performed utilizing the following imaging sequences: Axial T2, FLAIR, GRE, and DWI; sagittal and coronal T1 COMPARISON: None available FINDINGS:There is no acute infarct, hematoma, extra-axial collection, [...] findings as discussed above. Signed: Raffi Mendez MDReport Verified Date/Time: 05/09/2018 11:23:03 Reading Location: [address] Neuro Reading Room -GLUCOSE [id number] 07:58:00* Test Item Value Reference Range Comments POC-GLUCOSE METER (BEAKER) (test msyh=6287) 212 mg/dL 70-110 TESTED AT [address] [address] BASIC METABOLIC [id number] 06:19:00* Test Item Value Reference Range Comments SODIUM (BEAKER) (test mwld=125) 133 meq/L 136-145 POTASSIUM (BEAKER) (test yjps=681) 4.2 meq/L 3.5-5.1 CHLORIDE (BEAKER) (test cpjc=967) 98 meq/L 98-107 CO2 (BEAKER) (test kpug=230) 25 meq/L 22-29 BLOOD UREA NITROGEN (BEAKER) (test lmxz=925) 14 mg/dL 7-21 CREATININE (BEAKER) (test kquj=704) 1.11 mg/dL 0.57-1.25 GLUCOSE RANDOM (BEAKER) (test kkky=037) 269 mg/dL 70-105 CALCIUM (BEAKER) (test lrtp=723) 9.7 mg/dL 8.4-10.2 EGFR (BEAKER) (test bzky=0720) 71 mL/min/1.73 sq m ESTIMATED GFR IS NOT ACCURATE CREATININE CLEARANCE IN PREDICTING GLOMERULAR FILTRATION RATE. ESTIMATED GFR IS NOT APPLICABLE FOR DIALYSIS PATIENTS. POCT-GLUCOSE [id number] 21:12:00* Test Item Value Reference Range Comments POC-GLUCOSE METER (BEAKER) (test tyjz=7255) 307 mg/dL 70-110 TESTED AT [place] [id number] [facility] [address] POCT-GLUCOSE [id number] 16:53:00* Test Item Value Reference Range Comments POC-GLUCOSE METER (BEAKER) (test bfcb=0720) 246 mg/dL 70-110 TESTED AT [facility] [address] [facility] [address] EEG AWAKE AND [id number] 15:19:00Reason for exam:->Dizziness with staring spellsNeurophysiology Electroencephalogram Report DATE OF REPORT: 05/08/18Date(s) of Study: 05/08/2018ACC: [id number]: [id number] time: 05/08/2018 at 13:55Stop time: 05/08/2018 at 14:16ICD-10: R56.9CPT Code: 18068 HISTORY: 47 y old male with h/o obesity, HTN, DM, CAD s/p PCI presented with chest pressure. He has h/o dizziness and falls.MEDICATIONS THAT COULD AFFECT EEG: aspirin, gabapentin, metoprolol TECHNICAL SUMMARY: This is a digital video EEG recorded with 32 input channels reviewed with bipolar and referential montages using the modified combinatorial system nomenclature. DESCRIPTION OF RECORD: BACKGROUND: The entire recording is obtained in sleep. There are symmetric sleep spindles and K- complexes. There is no posterior dominant rhythm or anterior-posterior gradient.There are no ictal or inter-ictal epileptiform discharges. HYPERVENTILATION: Hyperventilation was not performed. PHOTIC STIMULATION: Photic stimulation was not performed.EVENTS: NoneELECTROCARDIOGRAM: A single lead EKG showed a normal rate, rhythm, and appearance. IMPRESSION: Normal EEG in sleepCLINICAL COMMENT: An EEG without epileptiform discharges does not exclude the possibility of epilepsy. If the clinical suspicion of epilepsy remains, consider additional EEG recordings. Consider further EEG recordings to capture awake state. Wicho Salazar , [facility] ANTLERSlinical Neurophysiology Fellow Rocky Leija MD, MSClinical Neurophysiology/Epilepsy Attending -GLUCOSE METER 2018-05-08 11:29:00* Test Item Value Reference Range Comments POC-GLUCOSE METER (BEAKER) (test havl=6221) 310 mg/dL 70-110 Notified SHANTAL RUIZ/TESTED AT [place] [id number] [facility] [address] POCT-GLUCOSE [id number] 08:04:00* Test Item Value Reference Range Comments POC-GLUCOSE METER (BEAKER) (test htnh=2670) 321 mg/dL 70-110 Notified SHANTAL RUIZ/TESTED AT [facility] [address] [facility] [address] LIPID [id number] 07:28:00* Test Item Value Reference Range Comments TRIGLYCERIDES (BEAKER) (test wwjt=114) 285 mg/dL CHOLESTEROL (BEAKER) (test habd=695) 147 mg/dL HDL CHOLESTEROL (BEAKER) (test dame=731) 35 mg/dL LDL CHOLESTEROL CALCULATED (BEAKER) (test kyjj=192) 55 mg/dL Triglyceride Reference Range: Low Risk <150 Borderline 150-199 High Risk 200-499 Very High Risk >=500Cholesterol Reference Range: Low Risk <200 Borderline 200-239 High Risk >240HDL Cholesterol Reference Range: Low Risk >=60 High Risk <40LDL Cholesterol Reference Range: Optimal <100 Near Optimal 100-129 Borderline 130-159 High 160-189 Very High >=190 BASIC METABOLIC [id number] 07:28:00* Test Item Value Reference Range Comments SODIUM (BEAKER) (test xrzw=863) 135 meq/L 136-145 POTASSIUM (BEAKER) (test wfou=207) 4.1 meq/L 3.5-5.1 CHLORIDE (BEAKER) (test zlui=588) 99 meq/L 98-107 CO2 (BEAKER) (test hnhq=825) 28 meq/L 22-29 BLOOD UREA NITROGEN (BEAKER) (test avem=708) 12 mg/dL 7-21 CREATININE (BEAKER) (test kqsv=829) 1.17 mg/dL 0.57-1.25 GLUCOSE RANDOM (BEAKER) (test quaw=397) 302 mg/dL 70-105 CALCIUM (BEAKER) (test ikrw=111) 9.9 mg/dL 8.4-10.2 EGFR (BEAKER) (test htdn=4922) 67 mL/min/1.73 sq m ESTIMATED GFR IS NOT ACCURATE CREATININE CLEARANCE IN PREDICTING GLOMERULAR FILTRATION RATE. ESTIMATED GFR IS NOT APPLICABLE FOR DIALYSIS PATIENTS. TROPONIN [id number] 07:26:00* Test Item Value Reference Range Comments TROPONIN I (BEAKER) (test anut=352) < ng/mL 0.00-0.03 Troponin I (TnI) levels must be interpreted in the context of the presenting sym ptoms and the clinical findings. Elevated TnI levels indicate myocardial damage, but are not specific for ischemic heart disease. Elevated TnI levels are seen in patients with other cardiac conditions (including myocarditis and congestive h eart failure), and slight TnI elevations occur in patients with other conditions , including sepsis, renal failure, acidosis, acute neurological disease, and per sistent tachyarrhythmia.CBC W/PLT COUNT & AUTO [id number] 07:06:00* Test Item Value Reference Range Comments WHITE BLOOD CELL COUNT (BEAKER) (test ucow=342) 5.5 K/ L 3.5-10.5 RED BLOOD CELL COUNT (BEAKER) (test yrqb=298) 3.92 M/ L 4.63-6.08 HEMOGLOBIN (BEAKER) (test hafy=370) 12.2 GM/DL 13.7-17.5 HEMATOCRIT (BEAKER) (test eoly=802) 37.5 % 40.1-51.0 MEAN CORPUSCULAR VOLUME (BEAKER) (test zzjt=244) 95.7 fL 79.0-92.2 MEAN CORPUSCULAR HEMOGLOBIN (BEAKER) (test pmmn=164) 31.1 pg 25.7-32.2 MEAN CORPUSCULAR HEMOGLOBIN CONC (BEAKER) (test urmt=095) 32.5 GM/DL 32.3-36.5 RED CELL DISTRIBUTION WIDTH (BEAKER) (test tpdb=632) 13.6 % 11.6-14.4 PLATELET COUNT (BEAKER) (test zrzj=970) 181 K/CU MM 150-450 MEAN PLATELET VOLUME (BEAKER) (test zxmt=976) 9.0 fL 9.4-12.4 NUCLEATED RED BLOOD CELLS (BEAKER) (test arvm=136) 0 /100 WBC 0-0 NEUTROPHILS RELATIVE PERCENT (BEAKER) (test piyd=100) 58 % LYMPHOCYTES RELATIVE PERCENT (BEAKER) (test gyda=980) 33 % MONOCYTES RELATIVE PERCENT (BEAKER) (test gvxa=386) 7 % EOSINOPHILS RELATIVE PERCENT (BEAKER) (test pqne=981) 1 % BASOPHILS RELATIVE PERCENT (BEAKER) (test shjp=844) 0 % NEUTROPHILS ABSOLUTE COUNT (BEAKER) (test csew=877) 3.14 K/ L 1.78-5.38 LYMPHOCYTES ABSOLUTE COUNT (BEAKER) (test rqoz=509) 1.82 K/ L 1.32-3.57 MONOCYTES ABSOLUTE COUNT (BEAKER) (test vpmr=430) 0.37 K/ L 0.30-0.82 EOSINOPHILS ABSOLUTE COUNT (BEAKER) (test hvhd=783) 0.07 K/ L 0.04-0.54 BASOPHILS ABSOLUTE COUNT (BEAKER) (test ncei=470) 0.02 K/ L 0.01-0.08 IMMATURE GRANULOCYTES-RELATIVE PERCENT (BEAKER) (test okau=5298) 1 % 0-1 POCT-GLUCOSE [id number] 19:22:00* Test Item Value Reference Range Comments POC-GLUCOSE METER (BEAKER) (test ogng=2697) 194 mg/dL 70-110 TESTED AT [facility] [address] [facility] [address] TROPONIN [id number] 18:15:00* Test Item Value Reference Range Comments TROPONIN I (BEAKER) (test knhx=732) < ng/mL 0.00-0.03 Troponin I (TnI) levels must be interpreted in the context of the presenting sym ptoms and the clinical findings. Elevated TnI levels indicate myocardial damage, but are not specific for ischemic heart disease. Elevated TnI levels are seen in patients with other cardiac conditions (including myocarditis and congestive h eart failure), and slight TnI elevations occur in patients with other conditions , including sepsis, renal failure, acidosis, acute neurological disease, and per sistent tachyarrhythmia.RAD, CHEST, 1 VIEW, NON [id number] 14:53:00Reason for exam:->CHEST PAINFINAL REPORT TECHNIQUE: Single view of the chest. COMPARISON: 12/31/2016 FINDINGS: The cardiac silhouette is within normal limits. Mediastinum is unremarkable. Lungs are clear. No acute skeletal abnormality. There is mild thoracolumbar scoliosis. Soft tissues appear unremarkable. IMPRESSION: No acute cardiopulmonary disease. Signed: Osiel Snow Verified Date/Time: 05/07/2018 14:53:36 Reading Location: [address] Reading Room TINE KINASE (CK), TOTAL AND [id number] 14:36:00* Test Item Value Reference Range Comments CREATINE KINASE TOTAL (BEAKER) (test tiyd=744) 56 U/L 29-200 CREATINE KINASE-MB (BEAKER) (test drvp=804) 0.5 ng/mL 0.0-6.6 CREATINE KINASE-MB INDEX (BEAKER) (test gmcp=935) 0.9 % CK-MB Reference Range:<6.7 Normal6.7-10.0 Borderline>10.0 Abnormal TROPONIN [id number] 14:36:00* Test Item Value Reference Range Comments TROPONIN I (BEAKER) (test asan=002) < ng/mL 0.00-0.03 Troponin I (TnI) levels must be interpreted in the context of the presenting sym ptoms and the clinical findings. Elevated TnI levels indicate myocardial damage, but are not specific for ischemic heart disease. Elevated TnI levels are seen in patients with other cardiac conditions (including myocarditis and congestive h eart failure), and slight TnI elevations occur in patients with other conditions , including sepsis, renal failure, acidosis, acute neurological disease, and per sistent tachyarrhythmia.B-TYPE NATRIURETIC FACTOR (BNP)2018-05-07 14:36:00* Test Item Value Reference Range Comments B-TYPE NATRIURETIC PEPTIDE (BEAKER) (test ootr=836) 20 pg/mL 0-100 [id number] 14:30:00* Test Item Value Reference Range Comments MAGNESIUM (BEAKER) (test pnwu=580) 1.8 mg/dL 1.6-2.6 BASIC METABOLIC [id number] 14:30:00* Test Item Value Reference Range Comments SODIUM (BEAKER) (test gmga=102) 132 meq/L 136-145 POTASSIUM (BEAKER) (test vfwq=068) 4.6 meq/L 3.5-5.1 CHLORIDE (BEAKER) (test raxt=554) 99 meq/L 98-107 CO2 (BEAKER) (test hxlz=149) 22 meq/L 22-29 BLOOD UREA NITROGEN (BEAKER) (test crii=250) 11 mg/dL 7-21 CREATININE (BEAKER) (test llvr=553) 1.23 mg/dL 0.57-1.25 GLUCOSE RANDOM (BEAKER) (test rcll=064) 282 mg/dL 70-105 CALCIUM (BEAKER) (test ucui=818) 9.5 mg/dL 8.4-10.2 EGFR (BEAKER) (test okrt=6895) 63 mL/min/1.73 sq m ESTIMATED GFR IS NOT ACCURATE CREATININE CLEARANCE IN PREDICTING GLOMERULAR FILTRATION RATE. ESTIMATED GFR IS NOT APPLICABLE FOR DIALYSIS PATIENTS. PT/[id number] 14:17:00* Test Item Value Reference Range Comments PROTIME (BEAKER) (test poaq=521) 13.2 seconds 11.7-14.7 INR (BEAKER) (test vrer=569) 1.0 <=5.9 PARTIAL THROMBOPLASTIN TIME (BEAKER) (test hwvq=141) 24.3 seconds 22.5-36.0 RECOMMENDED COUMADIN/WARFARIN INR THERAPY RANGESSTANDARD DOSE: 2.0 - 3.0 Inclu odin: PROPHYLAXIS for venous thrombosis, systemic embolization; TREATMENT for dipti ous thrombosis and/or pulmonary embolus.HIGH RISK: Target INR is 2.5-3.5 for pat ients with mechanical heart valves.CBC W/PLT COUNT & AUTO [id number] 14:07:00* Test Item Value Reference Range Comments WHITE BLOOD CELL COUNT (BEAKER) (test fmxf=923) 7.1 K/ L 3.5-10.5 RED BLOOD CELL COUNT (BEAKER) (test ioit=811) 3.64 M/ L 4.63-6.08 HEMOGLOBIN (BEAKER) (test pcyb=671) 11.6 GM/DL 13.7-17.5 HEMATOCRIT (BEAKER) (test krzm=899) 34.7 % 40.1-51.0 MEAN CORPUSCULAR VOLUME (BEAKER) (test xkto=458) 95.3 fL 79.0-92.2 MEAN CORPUSCULAR HEMOGLOBIN (BEAKER) (test gzwx=143) 31.9 pg 25.7-32.2 MEAN CORPUSCULAR HEMOGLOBIN CONC (BEAKER) (test sywj=256) 33.4 GM/DL 32.3-36.5 RED CELL DISTRIBUTION WIDTH (BEAKER) (test ylxg=421) 13.4 % 11.6-14.4 PLATELET COUNT (BEAKER) (test emkt=971) 162 K/CU MM 150-450 MEAN PLATELET VOLUME (BEAKER) (test uctn=826) 9.2 fL 9.4-12.4 NUCLEATED RED BLOOD CELLS (BEAKER) (test kfwc=745) 0 /100 WBC 0-0 NEUTROPHILS RELATIVE PERCENT (BEAKER) (test nznl=704) 74 % LYMPHOCYTES RELATIVE PERCENT (BEAKER) (test ihid=737) 18 % MONOCYTES RELATIVE PERCENT (BEAKER) (test vizh=408) 7 % EOSINOPHILS RELATIVE PERCENT (BEAKER) (test opoz=245) 1 % BASOPHILS RELATIVE PERCENT (BEAKER) (test saeo=654) 0 % NEUTROPHILS ABSOLUTE COUNT (BEAKER) (test znzi=162) 5.20 K/ L 1.78-5.38 LYMPHOCYTES ABSOLUTE COUNT (BEAKER) (test bjnx=142) 1.26 K/ L 1.32-3.57 MONOCYTES ABSOLUTE COUNT (BEAKER) (test eblr=065) 0.46 K/ L 0.30-0.82 EOSINOPHILS ABSOLUTE COUNT (BEAKER) (test ucgt=907) 0.07 K/ L 0.04-0.54 BASOPHILS ABSOLUTE COUNT (BEAKER) (test osae=400) 0.03 K/ L 0.01-0.08 IMMATURE GRANULOCYTES-RELATIVE PERCENT (BEAKER) (test wctt=0554) 1 % 0-1 CHEST SINGLE (PORTABLE)2018-05-06 02:43:00 [place] [address] Patient Name: DAVID SAMUELS MR #: [id number] : 1970 Age/Sex: 47/M Req #: [id number] Adm Physician: Ordered by: MARGE GREER MD Report #: [id number] Location: ER Room/Bed: Procedure: [id number] DX/CHEST SINGLE (PORTABLE) Lester mohr Date: 05/06/18 Exam Time: 0232 REPORT STATUS: Signed EXAM: CHEST SINGLE (PORTABLE), AP 1 view INDICATION: Dizzy, fall COMPARISON: AP view the chest vertebra 2017 FINDINGS: LINES/TUBES: None LUNGS: No consolidations or edema. PLEURA: No effusions or pneum othorax. HEART AND MEDIASTINUM: Normal size and contour. BONES AND SOF T TISSUES: No acute findings. IMPRESSION: No acute thoracic abnormality. Signed by: Dr. Todd Calderon M.D. on 05/06/2018 2:44 AM D ictated By: TODD CALDERON MD 3 COPY TO: DARIUS GREER MD MRI BRAIN [id number] 14:22:00 [place] [address] Patient Name: DAVID SAMUELS MR #: [id number] : 1970 Age/Sex: 47/M Req #: [id number] Adm Physician: ERIC BRO MD Ordered by: VIDHI DAI MD Report #: [id number] Location: ICU Room/Bed: ICU [facility] Procedure: [id number] MRI /MRI BRAIN WO Exam Date: Exam Time: REPORT S TATUS: Signed Exam: Brain MRI without IV contrast History: Seizure like activity Comparison studies: Head CT 04/14/2018 Technique: Sagittal axia l T2 FS, axial T1, axial DWI, axial T2*GRE and axial T2 FLAIR as well as dedic ated coronal T2 and T2 FLAIR sequences through the temporal lobes an hippocamp i. Intravenous contrast: None Findings: Exam is moderately limite d by artifacts related to patient motion. In spite of this limitation: Scalp: Normal in signal. No masses. Bone marrow: Normal in signal intensity. Brain sulci: Appropriate for age. Ventricles: Normal in size. No hydrocep halus. Extra axial spaces: No mass, no fluid collection. Parenchyma: No mass or hemorrhage. The inferior cerebellum lies outside the imaged field- of-view on the DWI sequence. No abnormal restricted diffusion within the inclu ded imaged sections through the brain on the DWI sequence. Moreover, no gross signal abnormalities in the cerebellum on the remaining pulse sequences. Th e hippocampi, forniceal columns and mamillary bodies are grossly normal in siz e and without gross signal abnormalities. No gross abnormalities of cortica l development/cortical migration though the exam is moderately limited evaluat ion these abnormalities due to degree of motion artifacts. Suprasellar re gion: No abnormalities. Craniocervical junction: Patent foramen magnum. No Ch iari malformation. Vessels: Normal flow-voids in the arteries and sinuses. IMPRESSION: 1. Exam is moderately limited by artifacts related to patient motion. 2. No mass or gross acute abnormalities. If symptoms persist, recommend follow-up MRI when clinically appropriate to further evaluate given the limitations of this exam. Signed by: Dr. Shawn Clarke M.D. on 8 2:31 PM Dictated By: SHAWN CLARKE MD 1431 Transcribed By: HARSHA on 04/15/18 1431 COPY TO: VIDHI DAI MD [facility] [id number] 22:37:00 [place] [address] Patient Name: DAVID SAMUELS MR #: [id number] : 02/1971 Age/Sex: 47/M Req #: [id number] Adm Physician: Ordered by: VIDHI DAI MD Report #: [id number] Location: Room /Bed: Procedure: [id number] CT/CTA CHEST Exam Date: 04/14/18 Exam Time: 2143 REPORT STATUS: Signed EXAM: CTA ABD/PELVIS, CTA CHEST INDICATION: S CHEST PAIN/BACK PAIN BLACKING OUT S Y COMPARISON: None. TECHNIQUE: Chest, abdomen and pelvis were scanned utilizing a multidetector helical scanner from the lung apex to the pubic sy mphysis. Coronal and sagittal reformations were obtained. CT low dose techniq ues were utilized, as applicable. 3-D reconstructed images of the vasculature were generated using a specialized workstation. IV CONTRAST: 100 mL Isovue 300/370 FINDINGS: LINES and TUBES: None. LUNGS/AIRWAYS /PLEURA: Linear left basilar atelectasis or scarring. No consolidation or sarita a. Several incidental 1 to 2 mm nodules, for example in the right middle lobe and lower lobes on image 55, 58, 73, 74. The pleural spaces are clear. HE ART AND MEDIASTINUM: No mediastinal, hilar or axillary lymphadenopathy. The h eart is normal in size.. There is no pericardial effusion. Scattered coronary artery calcification. HEPATOBILIARY/GALLBLADDER: Possible hepatic steatosis with pericholecystic sparing. No focal lesions SPLEEN: No splenome alverto. PANCREAS: No masses or ductal dilation. ADRENALS: No nodules. KIDNEYS/URETERS: No hydronephrosis. GI TRACT: No obstruction or wall thickening. Normal appendix. PELVIC ORGANS/BLADDER: Unremarkable. LYMPH NODES: No lymphadenopathy. VESSELS: The thoracic aorta and central branch vessels are patent, normal caliber. Left vertebral artery arises from the arch. No significant atherosclerotic change. The abdominal aorta, commo n iliac, external iliac, visualized internal iliac and common femoral arteries arteries are patent, normal caliber. Minimal right common iliac atherosclerot ic calcification. The celiac axis, SMA, bilateral renal arteries, and BRETT are patent. Network Liaison measurements are as follows: Aortic root, 3.5 cm Mid thoracic aorta, 3.1 cm Transverse aorta 2.6 cm Descending aorta distal to the left subclavian artery takeoff, 2.6 cm Aorta at the diaphragmatic hiatu s, 2.4 cm Suprarenal abdominal aorta, 2.1 cm Infrarenal abdominal aorta, 1.7 cm Aorta above the bifurcation, 1.5 cm Right common iliac artery, 0.9 cm Left common iliac artery, 1 cm PERITONEUM / RETROPERITONEUM: No free air or fluid. BONES/SOFT TISSUES: No acute findings. Mild cutaneous/subcutaneous inflammatory changes in the right lower quadrant. IMPRESSION: 1. No a cute aortic pathology. 2. No acute abnormality in the chest, abdomen or pelvi s. Signed by: Dr Jaun Combs MD on 04/14/2018 10:52 PM Dictated By: JAUN COMBS MD 52 Transcribed By: HARSHA on 04/14/18 1751 COPY TO: VIDHI DAI MD CTA ABD/[id number] 22:37:00 [place] [id number] Patient Name: DAVID SAMUELS MR #: [id number] : 1970 Age/Sex: 47/M Req #: [id number] Adm Physician: Ordered by: VIDHI DAI MD Report #: [id number] Location: ER Room/Bed: Procedure: CT/CTA ABD/PELVIS Exam Da te: 04/14/18 Exam Time: 2143 REPORT STATUS: Sig joel EXAM: CTA ABD/PELVIS, CTA CHEST INDICATION: S CHEST PAIN/BACK PAIN FLOWER CKING OUT S Y COMPARISON: None. TECHNIQUE: Chest, abdomen and pelvis were s canned utilizing a multidetector helical scanner from the lung apex to the pub ic symphysis. Coronal and sagittal reformations were obtained. CT low dose te chniques were utilized, as applicable. 3-D reconstructed images of the vascula ture were generated using a specialized workstation. IV CONTRAST : 100 mL Isovue 300/370 FINDINGS: LINES and TUBES: None. LUNGS/AI RWAYS/PLEURA: Linear left basilar atelectasis or scarring. No consolidation or edema. Several incidental 1 to 2 mm nodules, for example in the right middle lobe and lower lobes on image 55, 58, 73, 74. The pleural spaces are clear. HEART AND MEDIASTINUM: No mediastinal, hilar or axillary lymphadenopathy. The heart is normal in size.. There is no pericardial effusion. Scattered coron charlie artery calcification. HEPATOBILIARY/GALLBLADDER: Possible hepatic tegan atosis with pericholecystic sparing. No focal lesions SPLEEN: No spl enomegaly. PANCREAS: No masses or ductal dilation. ADRENALS: No nod ules. KIDNEYS/URETERS: No hydronephrosis. GI TRACT: No obstruction or wall thickening. Normal appendix. PELVIC ORGANS/BLADDER: Unremarkable. LYMPH NODES: No lymphadenopathy. VESSELS: The thoracic aorta and ce ntral branch vessels are patent, normal caliber. Left vertebral artery arises from the arch. No significant atherosclerotic change. The abdominal aorta, common iliac, external iliac, visualized internal iliac and common femoral art eries arteries are patent, normal caliber. Minimal right common iliac atherosc lerotic calcification. The celiac axis, SMA, bilateral renal arteries, and BRETT are patent. Network Liaison measurements are as follows: Aortic root, 3.5 cm Mid thoracic aorta, 3.1 cm Transverse aorta 2.6 cm Descending aorta di stal to the left subclavian artery takeoff, 2.6 cm Aorta at the diaphragmatic hiatus, 2.4 cm Suprarenal abdominal aorta, 2.1 cm Infrarenal abdominal aorta , 1.7 cm Aorta above the bifurcation, 1.5 cm Right common iliac artery, 0.9 cm Left common iliac artery, 1 cm PERITONEUM / RETROPERITONEUM: No free a ir or fluid. BONES/SOFT TISSUES: No acute findings. Mild cutaneous/subcutan eous inflammatory changes in the right lower quadrant. IMPRESSION: 1. No acute aortic pathology. 2. No acute abnormality in the chest, abdomen or pelvis. Signed by: Dr Jaun Combs MD on 04/14/2018 10:52 PM Dictate d By: JAUN COMBS MD 51 COPY TO: HARLEY DAI MD CHEST SINGLE (PORTABLE)2018-04-14 22:30:00 [place] [address] Patient Name: DAVID SAMUELS MR #: [id number] : 1970 Age/Sex: 47/M Req #: [id number] Adm Physician: Ordered by: VIDHI DAI MD Report #: [id number] Location: ER Room /Bed: Procedure: [id number] DX/CHEST SINGLE (PORTABLE) Exam Date: 04/14/18 Exam Time: [address] ATUS: Signed CHEST SINGLE (PORTABLE), 04/14/2018 8:15 PM Technique: CHEST SINGLE (PORTABLE) Comparison: None Clinical history: Chest pain Find ings: Limited by portable technique and soft tissue attenuation. Normal card iomediastinal silhouette for technique. Low lung volumes with minimal left bas ilar atelectasis or scar. No effusion or pneumothorax. Impression: 1. Loan es/Tubes: None 2. No acute abnormality. Signed by: Dr Jaun Combs MD o n 04/14/2018 10:31 PM Dictated By: JAUN COMBS MD Electronically Alisa d By: JAUN COMBS MD on 04/14/182230 Transcribed By: HARSHA on 04/14/18 2 231 COPY TO: VIDHI DAI MD CT BRAIN [id number] 22:17:00 [place] [address] Patient Name: DAVID SAMUELS MR #: [id number] : 1970 Age/Sex: 47/M Req #: [id number] Adm Physician: Ordered by: VIDHI DAI MD Report #: [id number] Location: ER Room/Bed: Procedure: CT/CT BRAIN WO Exam Date: Exam Time: REPORT STATUS: Signed EXAMINAT ION: Head CT without contrast. HISTORY:Dizziness. COMPARISON:None . TECHNIQUE: Multidetector axial images were obtained from the foramen magnum to the vertex without contrast. The images were reconstructed using brain and bone algorithms. Thin section brain images were reformatted into coronal and sagittal planes. Dose modulation, iterative reconstruction, and/or weight ba sed adjustment of the mA/kV was utilized to reduce the radiation dose to as lo w as reasonably achievable. Intravenous contrast: None IMAGE QUALI TY: Acceptable. FINDINGS: Skull/scalp: No lytic or blastic. lesions. No surgical changes. Parenchyma: No abnormal density. No acute hemorrha ge, mass or acute major vascular territorial infarct. Arteries: No density suggestive of thrombosis. Dural sinuses: No abnormal density suggestive of thrombosis. Ventricles: No hydrocephalus or displacement. Extra- axial spaces: No abnormal density. Brain volume: Mild to moderate gene ralized cerebral volume loss. Craniocervical junction: No mass, Chiari mal formation, or basilar invagination. Sella: No mass. Paranasal/mas toid sinuses: Imaged portions unremarkable. IMPRESSION: No acute intracra nial abnormality. Mild to moderate generalized cerebral volume loss, advanc ed for patient's given age. Signed by: Dr. Ada Brandt M.D. on 018 10:21 PM Dictated By: ADA BRANDT MD 20 Transcribed By: HARSHA on 04/14/182220 COPY TO: VIDHI DAI MD CT LUMBAR SPINE LTD W/O CONTRAST 2017-04-13 01:39:44AFTER HOURS SERVICE ON: 04/13/2017 1:39 AMCT of the Lumbar Spine Without ContrastLocation Code [id number]: PainTechnique: Axial and reconstructed coronal and sagittal scans wereobtained on a helical scanner pre IV contrast only. One or more of the following dose reduction techniques were used:Automated exposure control, adjustment of the mA and/or kV according topatient size, and/or utilization of iterative reconstruction technique.Findings:Thoracolumbar junction is intact. There is normal lumbar alignmentwithout spondylolisthesis. No compression fracture or pathologiclesions.There is L4-L5 and L5-S1 facet arthrosis. Mild broad-based bulge isnoted at L4-L5 and L5-S1 without significant stenosis. Pedicles, la efrem,transverse processes and spinous processes are intact. 2 mmnonobstructing r ight upper pole renal calculus is noted.Impression:1. Mild lumbar spondylosis.2 . 2 mm nonobstructing right renal calculus.CT CERVICAL SPINE LTD W/O CONTRAS 2017-04-13 01:36:26AFTER HOURS SERVICE ON: 04/13/2017 1:36 AMCT Scan of the Brain Without ContrastLocation Code [id number]: PainTechnique: Scans were performed on a helical scanner pre IV contrastonly. The study is limited secondary to lack of intravenous contrast,particularly for evaluation of masses. CT images were performed hours at arrival to the facility. One or more of the following dose reduction techniques were used:Automated exposure control, adjustment of the mA and/or kV according topatient size, and/or utilization of iterative reconstruction technique.Findings: There is no hydrocephalus. Basal cisterns are patent. There is nointracranial hyperdense hemorrhage. There is no midline shift or masseffect. No effacement of the soriano-white matter junction to indicateacute infarction. Impression:No acute intracranial CT findings.AFTER HOURS SERVICE ON: 04/13/2017 1:36 AMCT of the Cervical Spine Without ContrastLocation Code [id number]: PainTechnique: Axial and reconstructed coronal and sagittal scans wereobtained on a helical scanner pre IV contrast only. One or more of the following dose reduction techniques were used:Automated exposure control, adjustment of the mA and/or kV according topatient size, and/or utilization of iterative reconstruction technique.Findings:Craniocervical junction is intact. Atlantoaxial joint is unremarkable.C1 ring is normal. Dens is intact. Transverse processes, pedicles andlamina are intact. No compression fracture or pathologic lesions.Impression:Unremarkable cervical spine CT.CT HEAD OR BRAIN WO CONTRAST 2017-04-13 01:36:26AFTER HOURS SERVICE ON: 04/13/2017 1:36 AMCT Scan of the Brain Without ContrastLocation Code [id number]: PainTechnique: Scans were performed on a helical scanner pre IV contrastonly. The study is limited secondary to lack of intravenous contrast,particularly for evaluation of masses. CT images were performed [id number] hours at arrival to the facility. One or more of the following dose reduction techniques were used:Automated exposure control, adjustment of the mA and/or kV according topatient size, and/or utilization of iterative reconstruction technique.Findings: There is no hydrocephalus. Basal cisterns are patent. There is nointracranial hyperdense hemorrhage. There is no midline shift or masseffect. No effacement of the soriano-white matter junction to indicateacute infarction. Impression:No acute intracranial CT findings.AFTER HOURS SERVICE ON: 04/13/2017 1:36 AMCT of the Cervical Spine Without ContrastLocation Code [id number]: PainTechnique: Axial and reconstructed coronal and sagittal scans wereobtained on a helical scanner pre IV contrast only. One or more of the following dose reduction techniques were used:Automated exposure control, adjustment of the mA and/or kV according topatient size, and/or utilization of iterative reconstruction technique.Findings:Craniocervical junction is intact. Atlantoaxial joint is unremarkable.C1 ring is normal. Dens is intact. Transverse processes, pedicles andlamina are intact. No compression fracture or pathologic lesions.Impression:Unremarkable cervical spine CT.CBC with Differential 2017-04-13 01:27:00* Test Item Value Reference Range Comments WBC (test code=WBC) 6.0 K/cumm 4.4-10.5 RBC (test code=RBC) 4.39 M/cumm 4.10-5.70 Hemoglobin (test code=HGB) 13.5 gm/dL 13.4-17.4 Hematocrit (test code=HCT) 38.7 % 38.7-52.0 MCV (test code=MCV) 88.0 fL 80-100 MCH (test code=MCH) 30.8 pg 27.0-32.5 MCHC (test code=MCHC) 35.0 g/dL 32.0-37.5 RDW (test code=RDW) 13.2 % 11.5-14.5 Platelet Count (test code=PLTCT) 175 K/cumm 140-440 MPV (test code=MPV) 6.6 fL Diff Method (test code=DIFFM) Auto Neutrophil (test code=NEUT) 61.4 % 36-70 Lymphocyte (test code=LYMPH) 32.7 % 12-44 Monocyte (test code=MONO) 4.3 % 0-11 Eosinophil (test code=EOS) 1.3 % 0-7 Basophil (test code=BASO) 0.3 % 0-2 Neutro Abs (test code=ANEUT) 3.7 K/cumm 1.6-7.4 Lymph Abs (test code=ALYMPH) 2.0 K/cumm 0.5-4.6 [place] Abs (test code=AMONO) 0.3 K/cumm 0.0-1.2 Eos Abs (test code=AEOS) 0.08 K/cumm 0.00-0.74 Baso Abs (test code=ABASO) 0.0 K/cumm 0.00-0.21 Comprehensive Metabolic [id number] 00:59:00* Test Item Value Reference Range Comments Sodium (test code=NA) 137 mmol/L 135-145 Potassium (test code=K) 3.8 mmol/L 3.5-5.1 Chloride (test code=CL) 103 mmol/L 98-105 Carbon Dioxide (test code=CO2) 22 mmol/L 22-29 Glucose (test code=GLU) 150 mg/dL 70-115 Blood Urea Nitrogen (test code=BUN) 14 mg/dL 6-20 Creatinine (test code=CREAT) 1.3 mg/dL 0.7-1.2 Calcium (test code=CA) 9.4 mg/dL 8.3-10.5 Prot Total (test code=TP) 6.4 g/dL 6.4-8.3 Albumin (test code=ALB) 4.2 g/dL 3.5-5.2 A/G Ratio (test code=AGRATIO) 1.9 Ratio Globulin (test code=GLOB) 2.2 2.9-3.1 Bili Total (test code=TBIL) 0.2 mg/dL 0.1-0.9 Alk Phos (test code=APHOS) 52 U/L 40-129 AST (test code=AST) 23 U/L 1-40 ALT (test code=ALT) 32 U/L 1-41 BUN/Creatinine Ratio (test code=BCRATIO) 10.8 Anion Gap (test code=AGAP) 12 mmol/L 7-16 Estimated GFR (test code=GFR) >60 mL/min/1.73m2 eGFR (estimated Glomerular Filtration Rate) is an estimated value,calculated from the patient's serum creatinine using the MDRD equation.It is NOT the patient's actual GFR. The eGFR provides a more clinicallyuseful measure of kidney disease than serum creatinine alone.This calculation takes sex and race into account, if the informationis provided. If the race is not provided, and the patient isAfrican-Iraqi, multiply by 1.212. If sex is not provided, and thepatient is female, multiply by 0.742. Results for patients <18 years ofage have not been validated by the MDRD study and should be interpretedwith caution.eGFR Result Interpretation:eGFR > or=60 is in the Normal RangeeGFR < 60 may mean kidney diseaseeGFR < 15 may mean kidney failureRanges recommended by the National Kidney Foundat ion,http://nkdep.nih.gov CK [id number] 00:59:00* Test Item Value Reference Range Comments CK (test code=CK) 133 U/L 39-308 Troponin [id number] 00:57:00* Test Item Value Reference Range Comments Troponin T (test code=AIRAM) <0.010 ng/mL 0.000-0.090 XR CHEST 1 [id number] 00:49:38AFTER HOURS SERVICE ON: 04/13/2017 12:49 AMAP Portable ChestLocation Code [id number]: TraumaFINDINGS: Atelectatic changes noted in the lung bases. Inspiration is shallowlimiting the lung bases. There are no pleural effusions. There is nopneumothorax. Cardiac silhouette and mediastinum appear within normallimits. IMPRESSION: Mild bibasilar subsegmental atelectasis.B-TYPE NATRIURETIC FACTOR (BNP)2016-12-31 18:59:00* Test Item Value Reference Range Comments B-TYPE NATRIURETIC PEPTIDE (BEAKER) (test iwvr=279) 15 pg/mL 0-100 CREATINE KINASE (CK), TOTAL AND [id number] 18:59:00* Test Item Value Reference Range Comments CREATINE KINASE TOTAL (BEAKER) (test bbfr=719) 43 U/L 29-200 CREATINE KINASE-MB (BEAKER) (test bzed=860) 0.5 ng/mL 0.0-6.6 CREATINE KINASE-MB INDEX (BEAKER) (test qqgh=869) 1.2 % Effective 06/27/2014: CK-MB Reference Range ChangeNew: 0.0-6.6 Previous: 0.0- 4.9CK-MB Reference Range:<6.7 Normal6.7-10.0 Borderline>10.0 Abnormal TROPONIN [id number] 18:59:00* Test Item Value Reference Range Comments TROPONIN I (BEAKER) (test oubg=009) < ng/mL 0.00-0.03 Effective 06/27/2014: Reference Range ChangeNew: 0.00-0.03 Previous 0.00-0.15T roponin I (TnI) levels must be interpreted in the context of the presenting symp toms and the clinical findings. Elevated TnI levels indicate myocardial damage, but are not specific for ischemic heart disease. Elevated TnI levels are seen in patients with other cardiac conditions (including myocarditis and congestive he art failure), and slight TnI elevations occur in patients with other conditions, including sepsis, renal failure, acidosis, acute neurological disease, and pers istent tachyarrhythmia.[id number] 18:52:00* Test Item Value Reference Range Comments MAGNESIUM (BEAKER) (test jzrn=420) 2.0 mg/dL 1.6-2.6 BASIC METABOLIC [id number] 18:52:00* Test Item Value Reference Range Comments SODIUM (BEAKER) (test kayk=602) 138 meq/L 136-145 POTASSIUM (BEAKER) (test oubk=930) 3.6 meq/L 3.5-5.1 CHLORIDE (BEAKER) (test hxrf=172) 107 meq/L 98-107 CO2 (BEAKER) (test uqxh=880) 21 meq/L 22-29 BLOOD UREA NITROGEN (BEAKER) (test fmvj=162) 11 mg/dL 7-21 CREATININE (BEAKER) (test uuye=002) 1.12 mg/dL 0.57-1.25 GLUCOSE RANDOM (BEAKER) (test imum=316) 110 mg/dL 70-105 CALCIUM (BEAKER) (test pqoc=813) 9.5 mg/dL 8.4-10.2 EGFR (BEAKER) (test vyts=2695) 71 mL/min/1.73 sq m ESTIMATED GFR IS NOT ACCURATE CREATININE CLEARANCE IN PREDICTING GLOMERULAR FILTRATION RATE. ESTIMATED GFR IS NOT APPLICABLE FOR DIALYSIS PATIENTS. PT/[id number] 18:45:00* Test Item Value Reference Range Comments PROTIME (BEAKER) (test mdih=576) 13.5 seconds 11.7-14.7 INR (BEAKER) (test gqma=978) 1.0 <=5.9 PARTIAL THROMBOPLASTIN TIME (BEAKER) (test uzuo=871) 25.8 seconds 22.5-36.0 RECOMMENDED COUMADIN/WARFARIN INR THERAPY RANGESSTANDARD DOSE: 2.0 - 3.0 Inclu odin: PROPHYLAXIS for venous thrombosis, systemic embolization; TREATMENT for dipti ous thrombosis and/or pulmonary embolus.HIGH RISK: Target INR is 2.5-3.5 for pat ients with mechanical heart valves.CBC W/PLT COUNT & AUTO [id number] 18:39:00* Test Item Value Reference Range Comments WHITE BLOOD CELL COUNT (BEAKER) (test ggbe=076) 10.5 K/ L 4.0-10.0 RED BLOOD CELL COUNT (BEAKER) (test autj=671) 4.94 M/ L 4.20-5.80 HEMOGLOBIN (BEAKER) (test hvlz=276) 16.1 GM/DL 13.0-16.8 HEMATOCRIT (BEAKER) (test zedq=799) 47.1 % 40.0-50.0 MEAN CORPUSCULAR VOLUME (BEAKER) (test aofm=479) 95.4 fL 82.0-98.0 MEAN CORPUSCULAR HEMOGLOBIN (BEAKER) (test bmpv=298) 32.6 pg 27.0-33.0 MEAN CORPUSCULAR HEMOGLOBIN CONC (BEAKER) (test rutk=728) 34.2 GM/DL 32.0-36.0 RED CELL DISTRIBUTION WIDTH (BEAKER) (test pjpc=738) 11.9 % 10.3-14.2 PLATELET COUNT (BEAKER) (test ifue=745) 251 K/CU MM 150-430 MEAN PLATELET VOLUME (BEAKER) (test fjah=335) 5.7 fL 6.5-10.5 NUCLEATED RED BLOOD CELLS (BEAKER) (test xeby=157) 0 /100 WBC 0-0 NEUTROPHILS RELATIVE PERCENT (BEAKER) (test hwok=164) 76 % LYMPHOCYTES RELATIVE PERCENT (BEAKER) (test lwxn=787) 18 % MONOCYTES RELATIVE PERCENT (BEAKER) (test ijuf=031) 5 % EOSINOPHILS RELATIVE PERCENT (BEAKER) (test yshi=099) 0 % BASOPHILS RELATIVE PERCENT (BEAKER) (test bvrg=755) 0 % NEUTROPHILS ABSOLUTE COUNT (BEAKER) (test kfne=547) 8.04 K/ L 1.80-8.00 LYMPHOCYTES ABSOLUTE COUNT (BEAKER) (test dtpc=061) 1.88 K/ L 1.48-4.50 MONOCYTES ABSOLUTE COUNT (BEAKER) (test gawp=787) 0.53 K/ L 0.00-1.30 EOSINOPHILS ABSOLUTE COUNT (BEAKER) (test ncbo=366) 0.04 K/ L 0.00-0.50 BASOPHILS ABSOLUTE COUNT (BEAKER) (test ykhd=386) 0.02 K/ L 0.00-0.20 0.00CBC W/PLT COUNT & AUTO [id number] 06:13:00* Test Item Value Reference Range Comments WHITE BLOOD CELL COUNT (BEAKER) (test rjfr=940) 6.8 K/ L 4.0-10.0 RED BLOOD CELL COUNT (BEAKER) (test tabm=902) 4.60 M/ L 4.20-5.80 HEMOGLOBIN (BEAKER) (test nkoa=687) 14.9 GM/DL 13.0-16.8 HEMATOCRIT (BEAKER) (test tiaa=942) 44.5 % 40.0-50.0 MEAN CORPUSCULAR VOLUME (BEAKER) (test lfvr=887) 96.6 fL 82.0-98.0 MEAN CORPUSCULAR HEMOGLOBIN (BEAKER) (test wnzc=918) 32.3 pg 27.0-33.0 MEAN CORPUSCULAR HEMOGLOBIN CONC (BEAKER) (test kotk=582) 33.5 GM/DL 32.0-36.0 RED CELL DISTRIBUTION WIDTH (BEAKER) (test jnat=739) 11.9 % 10.3-14.2 PLATELET COUNT (BEAKER) (test rpnl=054) 167 K/CU MM 150-430 MEAN PLATELET VOLUME (BEAKER) (test gzxm=954) 6.0 fL 6.5-10.5 NUCLEATED RED BLOOD CELLS (BEAKER) (test bllm=571) 0 /100 WBC 0-0 NEUTROPHILS RELATIVE PERCENT (BEAKER) (test kqsb=173) 65 % LYMPHOCYTES RELATIVE PERCENT (BEAKER) (test dtns=201) 27 % MONOCYTES RELATIVE PERCENT (BEAKER) (test qtif=316) 7 % EOSINOPHILS RELATIVE PERCENT (BEAKER) (test tpgu=529) 1 % BASOPHILS RELATIVE PERCENT (BEAKER) (test gvmq=407) 0 % NEUTROPHILS ABSOLUTE COUNT (BEAKER) (test ibln=058) 4.45 K/ L 1.80-8.00 LYMPHOCYTES ABSOLUTE COUNT (BEAKER) (test woni=821) 1.84 K/ L 1.48-4.50 MONOCYTES ABSOLUTE COUNT (BEAKER) (test estz=174) 0.48 K/ L 0.00-1.30 EOSINOPHILS ABSOLUTE COUNT (BEAKER) (test gbpv=602) 0.04 K/ L 0.00-0.50 BASOPHILS ABSOLUTE COUNT (BEAKER) (test xikg=790) 0.00 K/ L 0.00-0.20 [id number] 05:58:00* Test Item Value Reference Range Comments PHOSPHORUS (BEAKER) (test peuq=730) 4.1 mg/dL 2.3-4.7 BASIC METABOLIC [id number] 05:58:00* Test Item Value Reference Range Comments SODIUM (BEAKER) (test rkxk=885) 138 meq/L 136-145 POTASSIUM (BEAKER) (test reov=071) 4.4 meq/L 3.5-5.1 CHLORIDE (BEAKER) (test kvcm=989) 107 meq/L 98-107 CO2 (BEAKER) (test prmn=540) 22 meq/L 22-29 BLOOD UREA NITROGEN (BEAKER) (test hwpq=478) 13 mg/dL 7-21 CREATININE (BEAKER) (test llmd=437) 1.04 mg/dL 0.57-1.25 GLUCOSE RANDOM (BEAKER) (test nfpu=015) 87 mg/dL 70-105 CALCIUM (BEAKER) (test uqxm=638) 9.1 mg/dL 8.4-10.2 EGFR (BEAKER) (test enso=3599) 77 mL/min/1.73 sq m ESTIMATED GFR IS NOT ACCURATE CREATININE CLEARANCE IN PREDICTING GLOMERULAR FILTRATION RATE. ESTIMATED GFR IS NOT APPLICABLE FOR DIALYSIS PATIENTS. HEPATIC FUNCTION [id number] 05:58:00* Test Item Value Reference Range Comments TOTAL PROTEIN (BEAKER) (test jrun=980) 6.5 gm/dL 6.0-8.3 ALBUMIN (BEAKER) (test angb=6536) 4.0 g/dL 3.5-5.0 BILIRUBIN TOTAL (BEAKER) (test prmr=029) 0.8 mg/dL 0.2-1.2 BILIRUBIN DIRECT (BEAKER) (test umgv=678) 0.3 mg/dL 0.1-0.5 ALKALINE PHOSPHATASE (BEAKER) (test ewhh=451) 44 U/L 40-150 AST (SGOT) (BEAKER) (test ksnb=617) 11 U/L 5-34 ALT (SGPT) (BEAKER) (test eorh=298) 15 U/L 6-55 SEDIMENTATION [id number] 11:40:00* Test Item Value Reference Range Comments SEDIMENTATION RATE, ERYTHROCYTE (BEAKER) (test edme=206) 8 mm/HR 0-15 [id number] 04:48:00* Test Item Value Reference Range Comments PHOSPHORUS (BEAKER) (test ykuj=683) 4.2 mg/dL 2.3-4.7 BASIC METABOLIC [id number] 04:48:00* Test Item Value Reference Range Comments SODIUM (BEAKER) (test tjsj=040) 135 meq/L 136-145 POTASSIUM (BEAKER) (test flte=175) 4.1 meq/L 3.5-5.1 CHLORIDE (BEAKER) (test reck=481) 106 meq/L 98-107 CO2 (BEAKER) (test fhie=097) 19 meq/L 22-29 BLOOD UREA NITROGEN (BEAKER) (test kden=024) 18 mg/dL 7-21 CREATININE (BEAKER) (test qave=791) 1.13 mg/dL 0.57-1.25 GLUCOSE RANDOM (BEAKER) (test nwyl=693) 104 mg/dL 70-105 CALCIUM (BEAKER) (test wtgg=662) 9.2 mg/dL 8.4-10.2 EGFR (BEAKER) (test exom=8468) 70 mL/min/1.73 sq m ESTIMATED GFR IS NOT ACCURATE CREATININE CLEARANCE IN PREDICTING GLOMERULAR FILTRATION RATE. ESTIMATED GFR IS NOT APPLICABLE FOR DIALYSIS PATIENTS. HEPATIC FUNCTION [id number] 04:48:00* Test Item Value Reference Range Comments TOTAL PROTEIN (BEAKER) (test puuu=458) 6.4 gm/dL 6.0-8.3 ALBUMIN (BEAKER) (test mrcr=6686) 3.9 g/dL 3.5-5.0 BILIRUBIN TOTAL (BEAKER) (test kdvv=069) 1.0 mg/dL 0.2-1.2 BILIRUBIN DIRECT (BEAKER) (test lwpd=866) 0.4 mg/dL 0.1-0.5 ALKALINE PHOSPHATASE (BEAKER) (test ifoi=091) 40 U/L 40-150 AST (SGOT) (BEAKER) (test icoh=150) 11 U/L 5-34 ALT (SGPT) (BEAKER) (test wqhs=308) 14 U/L 6-55 CBC W/PLT COUNT & AUTO [id number] 04:41:00* Test Item Value Reference Range Comments WHITE BLOOD CELL COUNT (BEAKER) (test zapi=638) 8.5 K/ L 4.0-10.0 RED BLOOD CELL COUNT (BEAKER) (test zbkh=307) 4.44 M/ L 4.20-5.80 HEMOGLOBIN (BEAKER) (test iswa=869) 14.4 GM/DL 13.0-16.8 HEMATOCRIT (BEAKER) (test ssnn=843) 41.8 % 40.0-50.0 MEAN CORPUSCULAR VOLUME (BEAKER) (test fmzc=054) 94.2 fL 82.0-98.0 MEAN CORPUSCULAR HEMOGLOBIN (BEAKER) (test etyw=521) 32.5 pg 27.0-33.0 MEAN CORPUSCULAR HEMOGLOBIN CONC (BEAKER) (test pdff=917) 34.5 GM/DL 32.0-36.0 RED CELL DISTRIBUTION WIDTH (BEAKER) (test iykf=565) 13.0 % 10.3-14.2 PLATELET COUNT (BEAKER) (test kiga=568) 195 K/CU MM 150-430 MEAN PLATELET VOLUME (BEAKER) (test tvwg=808) 6.0 fL 6.5-10.5 NUCLEATED RED BLOOD CELLS (BEAKER) (test vgat=723) 0 /100 WBC 0-0 NEUTROPHILS RELATIVE PERCENT (BEAKER) (test tpbb=252) 63 % LYMPHOCYTES RELATIVE PERCENT (BEAKER) (test vdet=859) 28 % MONOCYTES RELATIVE PERCENT (BEAKER) (test hnbq=296) 8 % EOSINOPHILS RELATIVE PERCENT (BEAKER) (test nbem=197) 1 % BASOPHILS RELATIVE PERCENT (BEAKER) (test nsft=140) 1 % NEUTROPHILS ABSOLUTE COUNT (BEAKER) (test rljv=675) 5.36 K/ L 1.80-8.00 LYMPHOCYTES ABSOLUTE COUNT (BEAKER) (test lfiu=068) 2.37 K/ L 1.48-4.50 MONOCYTES ABSOLUTE COUNT (BEAKER) (test ysse=564) 0.65 K/ L 0.00-1.30 EOSINOPHILS ABSOLUTE COUNT (BEAKER) (test jhby=223) 0.10 K/ L 0.00-0.50 BASOPHILS ABSOLUTE COUNT (BEAKER) (test chpw=322) 0.05 K/ L 0.00-0.20 0.00CREATINE KINASE (CK), TOTAL AND [id number] 18:27:00* Test Item Value Reference Range Comments CREATINE KINASE TOTAL (BEAKER) (test imar=205) 47 U/L 29-200 CREATINE KINASE-MB (BEAKER) (test tnnv=449) 0.8 ng/mL 0.0-6.6 CREATINE KINASE-MB INDEX (BEAKER) (test ydun=429) 1.7 % Effective 06/27/2014: CK-MB Reference Range ChangeNew: 0.0-6.6 Previous: 0.0- 4.9CK-MB Reference Range:<6.7 Normal6.7-10.0 Borderline>10.0 Abnormal TROPONIN [id number] 18:27:00* Test Item Value Reference Range Comments TROPONIN I (BEAKER) (test ihyj=277) < ng/mL 0.00-0.03 Effective 06/27/2014: Reference Range ChangeNew: 0.00-0.03 Previous 0.00-0.15T roponin I (TnI) levels must be interpreted in the context of the presenting symp toms and the clinical findings. Elevated TnI levels indicate myocardial damage, but are not specific for ischemic heart disease. Elevated TnI levels are seen in patients with other cardiac conditions (including myocarditis and congestive he art failure), and slight TnI elevations occur in patients with other conditions, including sepsis, renal failure, acidosis, acute neurological disease, and pers istent tachyarrhythmia.RAPID DRUG SCREEN, [id number] 15:19:00* Test Item Value Reference Range Comments BARBITURATE URINE (BEAKER) (test bghe=725) Negative Negative BENZODIAZEPINE SCREEN URINE (BEAKER) (test wlom=342) Negative Negative COCAINE (METAB.) SCREEN (BEAKER) (test hsnq=3132) Negative Negative METHADONE SCREEN (BEAKER) (test gelr=6997) Negative Negative OPIATE SCREEN URINE (BEAKER) (test bxhp=709) Positive Negative CANNABINOID SCREEN URINE (BEAKER) (test zbrx=401) Negative Negative AMPH/METHAMPH SCREEN (BEAKER) (test uvue=9658) Negative Negative PHENCYCLIDINE SCREEN URINE (BEAKER) (test rdlq=378) Negative Negative OXYCODONE SCREEN URINE (BEAKER) (test rasf=5371) Negative Negative DRUG CUTOFF CONC.Cocaine 300 ng/mL Cannabinoid 50 ng/mL Benzodiazepine 200 ng/mLBarbiturate 200 ng/mLPh encyclidine 25 ng/mLOpiate 300 ng/mLMethadone 300 ng/mLAmphetamine/ 1000 ng/mL MethamphetamineOxycodone 300 ng/mLEOSINOPHIL SMEAR, [id number] 14:54:00* Test Item Value Reference Range Comments EOSINOPHIL SMEAR, URINE (BEAKER) (test xfzw=6658) No EOS seen No EOS seen URINALYSIS W/ [id number] 14:50:00* Test Item Value Reference Range Comments COLOR (BEAKER) (test wdsj=194) Yellow CLARITY (BEAKER) (test wzqf=084) Clear SPECIFIC GRAVITY UA (BEAKER) (test rpkg=741) 1.018 1.001-1.035 PH UA (BEAKER) (test iaup=889) 6.0 5.0-8.0 PROTEIN UA (BEAKER) (test msjn=656) 10 mg/dL Negative GLUCOSE UA (BEAKER) (test klcb=421) Negative Negative KETONES UA (BEAKER) (test ezcr=425) 40 mg/dL Negative BILIRUBIN UA (BEAKER) (test hvbx=714) Negative Negative BLOOD UA (BEAKER) (test zfvn=240) Negative Negative NITRITE UA (BEAKER) (test evlw=381) Negative Negative LEUKOCYTE ESTERASE UA (BEAKER) (test iewt=014) Negative Negative UROBILINOGEN UA (BEAKER) (test ddqs=145) 4.0 mg/dL 0.2-1.0 RBC UA (BEAKER) (test vlhf=607) 1 /HPF WBC UA (BEAKER) (test fonq=397) 1 /HPF MUCUS (BEAKER) (test frjk=9822) Moderate HYALINE CASTS (BEAKER) (test blfj=575) 2 /LPF SOURCE(BEAKER) (test bets=9162) TSH/FREE T4 IF [id number] 13:03:00* Test Item Value Reference Range Comments THYROID STIMULATING HORMONE (BEAKER) (test cbmu=315) 0.56 uIU/mL 0.35-4.94 HEMOGLOBIN [id number] 11:36:00* Test Item Value Reference Range Comments HEMOGLOBIN A1C (BEAKER) (test vkhs=596) 4.6 % 4.3-6.1 CREATINE KINASE (CK), TOTAL AND [id number] 10:49:00* Test Item Value Reference Range Comments CREATINE KINASE TOTAL (BEAKER) (test kiyx=733) 46 U/L 29-200 CREATINE KINASE-MB (BEAKER) (test cklp=248) 0.8 ng/mL 0.0-6.6 CREATINE KINASE-MB INDEX (BEAKER) (test hctc=703) 1.7 % Effective 06/27/2014: CK-MB Reference Range ChangeNew: 0.0-6.6 Previous: 0.0- 4.9CK-MB Reference Range:<6.7 Normal6.7-10.0 Borderline>10.0 Abnormal TROPONIN [id number] 10:49:00* Test Item Value Reference Range Comments TROPONIN I (BEAKER) (test dfza=800) < ng/mL 0.00-0.03 Effective 06/27/2014: Reference Range ChangeNew: 0.00-0.03 Previous 0.00-0.15T roponin I (TnI) levels must be interpreted in the context of the presenting symp toms and the clinical findings. Elevated TnI levels indicate myocardial damage, but are not specific for ischemic heart disease. Elevated TnI levels are seen in patients with other cardiac conditions (including myocarditis and congestive he art failure), and slight TnI elevations occur in patients with other conditions, including sepsis, renal failure, acidosis, acute neurological disease, and pers istent tachyarrhythmia.[id number] 10:42:00* Test Item Value Reference Range Comments MAGNESIUM (BEAKER) (test qbgj=486) 2.3 mg/dL 1.6-2.6 BASIC METABOLIC [id number] 10:42:00* Test Item Value Reference Range Comments SODIUM (BEAKER) (test lqbt=756) 139 meq/L 136-145 POTASSIUM (BEAKER) (test fbnl=938) 4.0 meq/L 3.5-5.1 CHLORIDE (BEAKER) (test evgf=427) 104 meq/L 98-107 CO2 (BEAKER) (test larm=048) 24 meq/L 22-29 BLOOD UREA NITROGEN (BEAKER) (test smdh=090) 17 mg/dL 7-21 CREATININE (BEAKER) (test sery=108) 1.17 mg/dL 0.57-1.25 GLUCOSE RANDOM (BEAKER) (test pabu=724) 125 mg/dL 70-105 CALCIUM (BEAKER) (test toiv=378) 9.5 mg/dL 8.4-10.2 EGFR (BEAKER) (test nuew=3850) 67 mL/min/1.73 sq m ESTIMATED GFR IS NOT ACCURATE CREATININE CLEARANCE IN PREDICTING GLOMERULAR FILTRATION RATE. ESTIMATED GFR IS NOT APPLICABLE FOR DIALYSIS PATIENTS. LIPID [id number] 10:42:00* Test Item Value Reference Range Comments TRIGLYCERIDES (BEAKER) (test erql=097) 111 mg/dL CHOLESTEROL (BEAKER) (test yhoa=429) 163 mg/dL HDL CHOLESTEROL (BEAKER) (test hutt=109) 40 mg/dL LDL CHOLESTEROL CALCULATED (BEAKER) (test ahqt=774) 101 mg/dL Triglyceride Reference Range: Low Risk <150 Borderline 150-199 High Risk 200-499 Very High Risk >=500Cholesterol Reference Range: Low Risk <200 Borderline 200-239 High Risk >240HDL Cholesterol Reference Range: Low Risk >=60 High Risk <40LDL Cholesterol Reference Range: Optimal <100 Near Optimal 100-129 Borderline 130-159 High 160-189 Very High >=190 HEPATIC FUNCTION [id number] 10:42:00* Test Item Value Reference Range Comments TOTAL PROTEIN (BEAKER) (test froa=988) 7.1 gm/dL 6.0-8.3 ALBUMIN (BEAKER) (test srjr=2856) 4.4 g/dL 3.5-5.0 BILIRUBIN TOTAL (BEAKER) (test nmbe=275) 1.2 mg/dL 0.2-1.2 BILIRUBIN DIRECT (BEAKER) (test wxri=313) 0.4 mg/dL 0.1-0.5 ALKALINE PHOSPHATASE (BEAKER) (test awij=005) 45 U/L 40-150 AST (SGOT) (BEAKER) (test cfkg=783) 10 U/L 5-34 ALT (SGPT) (BEAKER) (test pxao=844) 12 U/L 6-55 C-REACTIVE [id number] 10:42:00* Test Item Value Reference Range Comments C-REACTIVE PROTEIN (BEAKER) (test ohca=777) 0.33 mg/dL 0.00-0.50 CBC W/PLT COUNT & AUTO [id number] 10:26:00* Test Item Value Reference Range Comments WHITE BLOOD CELL COUNT (BEAKER) (test mimy=510) 10.7 K/ L 4.0-10.0 RED BLOOD CELL COUNT (BEAKER) (test nwqn=510) 4.66 M/ L 4.20-5.80 HEMOGLOBIN (BEAKER) (test fugk=125) 15.5 GM/DL 13.0-16.8 HEMATOCRIT (BEAKER) (test ubrg=823) 43.8 % 40.0-50.0 MEAN CORPUSCULAR VOLUME (BEAKER) (test gvnm=449) 94.1 fL 82.0-98.0 MEAN CORPUSCULAR HEMOGLOBIN (BEAKER) (test zrox=252) 33.3 pg 27.0-33.0 MEAN CORPUSCULAR HEMOGLOBIN CONC (BEAKER) (test lysh=224) 35.4 GM/DL 32.0-36.0 RED CELL DISTRIBUTION WIDTH (BEAKER) (test bqkg=736) 12.9 % 10.3-14.2 PLATELET COUNT (BEAKER) (test wzxm=333) 192 K/CU MM 150-430 MEAN PLATELET VOLUME (BEAKER) (test vnzo=204) 5.7 fL 6.5-10.5 NUCLEATED RED BLOOD CELLS (BEAKER) (test dzfe=569) 0 /100 WBC 0-0 NEUTROPHILS RELATIVE PERCENT (BEAKER) (test twgm=327) 79 % LYMPHOCYTES RELATIVE PERCENT (BEAKER) (test jjih=053) 15 % MONOCYTES RELATIVE PERCENT (BEAKER) (test ibws=928) 5 % EOSINOPHILS RELATIVE PERCENT (BEAKER) (test wfpy=767) 0 % BASOPHILS RELATIVE PERCENT (BEAKER) (test xccz=128) 0 % NEUTROPHILS ABSOLUTE COUNT (BEAKER) (test vpqs=277) 8.44 K/ L 1.80-8.00 LYMPHOCYTES ABSOLUTE COUNT (BEAKER) (test wkxu=559) 1.65 K/ L 1.48-4.50 MONOCYTES ABSOLUTE COUNT (BEAKER) (test vuow=644) 0.55 K/ L 0.00-1.30 EOSINOPHILS ABSOLUTE COUNT (BEAKER) (test erze=180) 0.05 K/ L 0.00-0.50 BASOPHILS ABSOLUTE COUNT (BEAKER) (test wkgp=092) 0.05 K/ L 0.00-0.20 0.00CREATINE KINASE (CK), TOTAL AND [id number] 02:08:00* Test Item Value Reference Range Comments CREATINE KINASE TOTAL (BEAKER) (test qhfx=607) 50 U/L 29-200 CREATINE KINASE-MB (BEAKER) (test pqqu=321) 0.7 ng/mL 0.0-6.6 CREATINE KINASE-MB INDEX (BEAKER) (test oqvi=168) 1.4 % Effective 06/27/2014: CK-MB Reference Range ChangeNew: 0.0-6.6 Previous: 0.0- 4.9CK-MB Reference Range:<6.7 Normal6.7-10.0 Borderline>10.0 Abnormal TROPONIN [id number] 02:08:00* Test Item Value Reference Range Comments TROPONIN I (BEAKER) (test drpd=285) 0.01 ng/mL 0.00-0.03 Effective 06/27/2014: Reference Range ChangeNew: 0.00-0.03 Previous 0.00-0.15T roponin I (TnI) levels must be interpreted in the context of the presenting symp toms and the clinical findings. Elevated TnI levels indicate myocardial damage, but are not specific for ischemic heart disease. Elevated TnI levels are seen in patients with other cardiac conditions (including myocarditis and congestive he art failure), and slight TnI elevations occur in patients with other conditions, including sepsis, renal failure, acidosis, acute neurological disease, and pers istent tachyarrhythmia.[id number] 01:36:00* Test Item Value Reference Range Comments D-DIMER QUANTITATIVE (BEAKER) (test znmd=371) < MG/L FEU <0.50 Intended Use: The D-Dimer Assay can be used to aid in the diagnosis of Deep Vein Thrombosis (DVT) and Pulmonary Embolism Disease (PED).In patients with low pre- test probability, various studies concerning STA Liatest D-dimer test have repor dionisio that with a cutoff value of 0.50 MG/L FEU, the Negative Predictive Value (FARMHAND V) regarding the exclusion of thrombosis is within 95-100% range.COMPREHENSIVE METABOLIC [id number] 21:22:00* Test Item Value Reference Range Comments TOTAL PROTEIN (BEAKER) (test zelu=143) 7.6 gm/dL 6.0-8.3 ALBUMIN (BEAKER) (test wqie=2375) 4.6 g/dL 3.5-5.0 ALKALINE PHOSPHATASE (BEAKER) (test uruj=253) 51 U/L 40-150 BILIRUBIN TOTAL (BEAKER) (test nvao=307) 0.9 mg/dL 0.2-1.2 SODIUM (BEAKER) (test yhkr=044) 139 meq/L 136-145 POTASSIUM (BEAKER) (test codd=102) 3.8 meq/L 3.5-5.1 CHLORIDE (BEAKER) (test kaax=385) 106 meq/L 98-107 CO2 (BEAKER) (test yxvj=489) 21 meq/L 22-29 BLOOD UREA NITROGEN (BEAKER) (test npef=096) 12 mg/dL 7-21 CREATININE (BEAKER) (test ccuk=882) 1.05 mg/dL 0.57-1.25 GLUCOSE RANDOM (BEAKER) (test pnua=310) 99 mg/dL 70-105 CALCIUM (BEAKER) (test hojs=126) 9.8 mg/dL 8.4-10.2 AST (SGOT) (BEAKER) (test tavx=544) 11 U/L 5-34 ALT (SGPT) (BEAKER) (test njgy=572) 16 U/L 6-55 EGFR (BEAKER) (test buhd=4676) mL/min/1.73 sq m INSUFFICIENT CLINICAL DATA TO CALCULATE ESTIMATED GFR. [id number] 21:19:00* Test Item Value Reference Range Comments PROTIME (BEAKER) (test aohf=472) 12.7 seconds 11.7-14.7 INR (BEAKER) (test gghz=443) 1.0 <=5.9 PARTIAL THROMBOPLASTIN TIME (BEAKER) (test gnzb=700) 25.3 seconds 22.5-36.0 RECOMMENDED COUMADIN/WARFARIN INR THERAPY RANGESSTANDARD DOSE: 2.0 - 3.0 Inclu odin: PROPHYLAXIS for venous thrombosis, systemic embolization; TREATMENT for dipti ous thrombosis and/or pulmonary embolus.HIGH RISK: Target INR is 2.5-3.5 for pat ients with mechanical heart valves.CREATINE KINASE (CK), TOTAL AND [id number] 21:17:00* Test Item Value Reference Range Comments CREATINE KINASE TOTAL (BEAKER) (test nshz=550) 52 U/L 29-200 CREATINE KINASE-MB (BEAKER) (test hayk=512) 0.7 ng/mL 0.0-6.6 CREATINE KINASE-MB INDEX (BEAKER) (test sdec=065) 1.3 % Effective 06/27/2014: CK-MB Reference Range ChangeNew: 0.0-6.6 Previous: 0.0- 4.9CK-MB Reference Range:<6.7 Normal6.7-10.0 Borderline>10.0 Abnormal TROPONIN [id number] 21:17:00* Test Item Value Reference Range Comments TROPONIN I (BEAKER) (test ignk=070) < ng/mL 0.00-0.03 Effective 06/27/2014: Reference Range ChangeNew: 0.00-0.03 Previous 0.00-0.15T roponin I (TnI) levels must be interpreted in the context of the presenting symp toms and the clinical findings. Elevated TnI levels indicate myocardial damage, but are not specific for ischemic heart disease. Elevated TnI levels are seen in patients with other cardiac conditions (including myocarditis and congestive he art failure), and slight TnI elevations occur in patients with other conditions, including sepsis, renal failure, acidosis, acute neurological disease, and pers istent tachyarrhythmia.CBC W/PLT COUNT & AUTO [id number] 20:57:00* Test Item Value Reference Range Comments WHITE BLOOD CELL COUNT (BEAKER) (test dkgq=580) 9.7 K/ L 4.0-10.0 RED BLOOD CELL COUNT (BEAKER) (test rayt=124) 4.90 M/ L 4.20-5.80 HEMOGLOBIN (BEAKER) (test lpgd=911) 16.0 GM/DL 13.0-16.8 HEMATOCRIT (BEAKER) (test ynjm=536) 45.9 % 40.0-50.0 MEAN CORPUSCULAR VOLUME (BEAKER) (test uwjl=888) 93.8 fL 82.0-98.0 MEAN CORPUSCULAR HEMOGLOBIN (BEAKER) (test svuc=286) 32.7 pg 27.0-33.0 MEAN CORPUSCULAR HEMOGLOBIN CONC (BEAKER) (test wcwg=586) 34.9 GM/DL 32.0-36.0 RED CELL DISTRIBUTION WIDTH (BEAKER) (test abzt=906) 12.9 % 10.3-14.2 PLATELET COUNT (BEAKER) (test nzqx=437) 195 K/CU MM 150-430 MEAN PLATELET VOLUME (BEAKER) (test wxzj=237) 5.7 fL 6.5-10.5 NUCLEATED RED BLOOD CELLS (BEAKER) (test sycz=881) 0 /100 WBC 0-0 NEUTROPHILS RELATIVE PERCENT (BEAKER) (test xnxs=333) 70 % LYMPHOCYTES RELATIVE PERCENT (BEAKER) (test wwmt=887) 22 % MONOCYTES RELATIVE PERCENT (BEAKER) (test tepr=124) 7 % EOSINOPHILS RELATIVE PERCENT (BEAKER) (test nrlj=537) 1 % BASOPHILS RELATIVE PERCENT (BEAKER) (test svzd=233) 0 % NEUTROPHILS ABSOLUTE COUNT (BEAKER) (test slqp=410) 6.81 K/ L 1.80-8.00 LYMPHOCYTES ABSOLUTE COUNT (BEAKER) (test fpcy=837) 2.13 K/ L 1.48-4.50 MONOCYTES ABSOLUTE COUNT (BEAKER) (test jyoa=989) 0.68 K/ L 0.00-1.30 EOSINOPHILS ABSOLUTE COUNT (BEAKER) (test mzvv=882) 0.05 K/ L 0.00-0.50 BASOPHILS ABSOLUTE COUNT (BEAKER) (test xbws=297) 0.01 K/ L 0.00-0.20 0.00
--- NOTE | 2018-05-27 18:34 | Diagnostic Imaging Report ---
EXAMINATION: CHEST SINGLE (PORTABLE) INDICATION: Dizziness. Passed out. ^dyspnea COMPARISON: Chest radiograph 05/06/2018 FINDINGS: AP view TUBES and LINES: None. LUNGS: Lungs are well inflated. Lungs are clear. There is no evidence of pneumonia or pulmonary edema. PLEURA: No pleural effusion or pneumothorax. HEART AND MEDIASTINUM: The cardiomediastinal silhouette is unremarkable. BONES AND SOFT TISSUES: No acute osseous lesion. Soft tissues are unremarkable. UPPER ABDOMEN: No free air under the diaphragm. IMPRESSION: No acute thoracic abnormality. Signed by: DR. Cecilio Durand MD on 05/27/2018 6:30 PM
[2018-05-27 19:12] LABS: BASOPHILS % 0.3 % (0.0-1.0); EOSINOPHILS # (AUTO) 0.1 (0.0-0.4); EOSINOPHILS % 0.8 % (0.0-6.0); HEMATOCRIT 39.5 % (38.2-49.6); HEMOGLOBIN 13.6 g/dL (14.0-18.0); LYMPHOCYTES # (AUTO) 1.5 (1.0-3.2); MEAN CORPUSCULAR HEMOGLOBIN 31.3 pg (28-32); MEAN CORPUSCULAR HGB CONC 34.4 g/dL (31-35); MONOCYTES # (AUTO) 0.4 (0.2-0.8); MONOCYTES % 5.8 % (4.4-11.3); NEUTROPHILS # (AUTO) 5.2 (2.1-6.9); NEUTROPHILS % 71.6 % (38.7-80.0); PLATELET COUNT 233 x10e3/uL (140-360); RED BLOOD COUNT 4.34 x10e6/uL (4.3-5.7); RED CELL DISTRIBUTION WIDTH 13.2 % (11.7-14.4)
[2018-05-27] MEDS ORDERED: HYDROCODONE/APAP 10MG-325MG TAB PO NR (19:30)
[2018-05-27 19:33] LABS: ALBUMIN 4.1 g/dL (3.5-5.0); ALBUMIN/GLOBULIN RATIO 1.2 (0.8-2.0); ANION GAP 17.4 mmol/L (8-16); CALCIUM 10.3 mg/dL (8.4-10.2); CREATININE, SERUM 1.33 mg/dL (0.72-1.25); MAGNESIUM 2.2 MG/DL (1.3-2.1); POTASSIUM 4.4 mmol/L (3.5-5.1)
[2018-05-27 19:39] LABS: CREATINE KINASE MB 0.5 ng/mL (0-5.0)
== END 2018-05-27 19:45 | disposition left against medical advice (07) ==
LOC: ER 15:43
DX: R06.00 Dyspnea, unspecified (principal); E10.65 Type 1 diabetes mellitus with hyperglycemia; I50.9 Heart failure, unspecified; I10 Essential (primary) hypertension; E78.5 Hyperlipidemia, unspecified; F43.10 Post-traumatic stress disorder, unspecified; E66.9 Obesity, unspecified
CPT/HCPCS: 36415; 71045; 80053; 82550; 82553; 83735; 84484; 85025; 93005

== ENCOUNTER 2018-09-20 13:31 | Emergency (ER) | payer BC ==
[~2018-09-20] VITALS: Ht 182.9 cm; Wt 141.1 kg
--- OUTSIDE RECORDS SUMMARY | 2018-09-20 13:34 | XMS REPORT | Clinical Summary ---
Author Author [facility] Address Unknown Phone Unavailable Care Team Providers Care Automatic Clipper Name Role Phone Pcp, No PCP Unavailable Allergies Comments Active Allergy Reactions Severity Noted Date Codeine Rash Low 04/29/2018 Ketorolac Tromethamine Itching 01/26/2016 Methylprednisolone Itching, 01/27/2016 Hives Mirtazapine Itching 04/22/2017 Penicillin Itching 11/30/2016 Penicillins Itching 12/24/2016 Ketorolac Itching 12/24/2016 Medications End Date Status Medication Sig Dispensed Refills Start Date Active hydrOXYzine (VISTARIL) 50 Take 50 mg by 0 MG capsule mouth 3 (three) times daily as needed for Itching. Active PARoxetine (PAXIL) 40 MG Take 60 mg by 0 tabletIndications: mouth every Depression associated morning. with Bipolar Disorder Active gabapentin (NEURONTIN) Take 300 mg 0 300 MG capsule by mouth. Active nortriptyline (PAMELOR) Take 50 mg by 0 50 MG capsuleIndications: mouth depression nightly. Active albuterol HFA (VENTOLIN Inhale 1 puff 0 HFA) 90 mcg/actuation by mouth via inhaler inhaler every 6 (six) hours as needed for Wheezing. Active aspirin 81 MG chewable Take 1 tablet 30 tablet 1 tablet (81 mg total) 8 by mouth daily. Active isosorbide mononitrate Take 1 tablet 90 tablet 1 (IMDUR) 30 MG 24 hr (30 mg total) 8 tablet by mouth daily. Active insulin pen needles (BD Use as 100 each 0 ULTRA-FINE LUZ) 4 mm x directed. 8 32 G Dispense as written, do not substitute. Brand medically necessary.. Active HYDROcodone-acetaminophen Take 1 tablet 15 tablet 0 (NORCO 5-325) 5-325 mg by mouth 2 8 per tablet (two) times daily as needed for Pain. Max Daily Amount: 2 tablets 05/11/2019 Active metFORMIN (GLUCOPHAGE) Take 1 tablet 60 tablet 0 1000 MG tablet (1,000 mg 8 total) by mouth 2 (two) times daily with breakfast and dinner. 05/11/2019 Active SITagliptin (JANUVIA) 100 Take 1 tablet 30 tablet 0 MG tablet (100 mg 8 total) by mouth daily. Active insulin lispro (HUMALOG Inject 18 20 mL 0 KWIKPEN INSULIN) 100 Units 8 unit/mL InPn subcutaneousl y 3 (three) times daily with meals. 05/31/2019 Active atorvastatin (LIPITOR) 40 Take 1 tablet 30 tablet 2 MG tablet (40 mg total) 8 by mouth nightly. 05/09/2018 Discontinued valsartan (DIOVAN) 160 MG Take 160 mg 0 tablet by mouth daily. 05/09/2018 Discontinued lisinopril Take 10 mg by 0 (PRINIVIL,ZESTRIL) 5 MG mouth daily. tablet 05/09/2018 Discontinued metoprolol (TOPROL-XL) 25 Take 25 mg by 0 MG 24 hr tablet mouth. 05/10/2018 Discontinued glipiZIDE-metFORMIN Take 1 tablet 0 (METAGLIP) 5-500 mg per by mouth 2 tablet (two) times daily before meals. 05/08/2018 Discontinued norethindrone (MICRONOR) Take 1 tablet 0 0.35 mg per tablet by mouth daily. 08/07/2018 metoprolol (TOPROL-XL) 25 Take 1.5 135 tablet 0 MG 24 hr tablet tablets (37.5 8 mg total) by mouth daily for 90 days. 05/11/2018 Discontinued insulin glargine (LANTUS) Inject 20 6 mL 1 100 unit/mL (3 mL) InPn Units 8 subcutaneousl y every morning for 30 days. 05/11/2018 Discontinued metFORMIN (GLUCOPHAGE) Take 1 tablet 0 500 MG tablet (500 mg 8 total) by mouth 2 (two) times daily with breakfast and dinner. 05/11/2018 Discontinued SITagliptin (JANUVIA) 25 Take 1 tablet 0 MG tablet (25 mg total) 8 by mouth daily. 06/10/2018 insulin glargine (LANTUS) Inject 25 15 mL 0 100 unit/mL (3 mL) InPn Units 8 subcutaneousl y 2 (two) times daily for 30 days. 06/30/2018 lidocaine (LIDODERM) 5 % Place 1 patch 30 patch 0 patch onto the skin 8 daily for 30 days Remove & Discard patch within 12 hours or as directed by MD. Active Problems Problem Noted Date Syncope and collapse 05/29/2018 Hyperglycemia 05/10/2018 Chest pain 12/25/2016 Tobacco abuse 12/25/2016 CAD (coronary artery disease) 12/25/2016 Anxiety 12/25/2016 PTSD (post-traumatic stress disorder) 12/25/2016 Encounters Care Team Description Date Type Specialty Reji Naranjo MD Hyperglycemia (Primary Dx); Other chronic pain 06/06/2018 Emergency Emergency Medicine [facility]/2018 [facility] 06/05/2018 Emergency Emergency Medicine Gagan Mai MD Adio, Titilola R., MD Kulkarni, Mark Anthony Delgado MD Syncope and collapse (Primary Dx); Head injury, acute, initial encounter; Neck pain, acute; Acute bilateral back pain, unspecified back location; Acute hyperglycemia; Tobacco abuse; Coronary artery disease involving [place] coronary artery of [place] heart without angina pectoris; Precordial pain 05/29/2018 Emergency Cardiology - 05/31/2018 Mouna Krishna RN Diabetes 05/20/2018 Telephone Cardiology Mouna Krishna RN Diabetes 05/19/2018 Telephone Cardiology Juli Saenz MD Tirukkovalluri, Srilakshmi, MD Agrawal, Neeraj, MD Precordial pain (Primary Dx); Tobacco abuse; History of [place] (myocardial infarction); Dizziness; Anxiety; Coronary artery disease involving [place] coronary artery of [place] heart with unstable angina pectoris (HCC); PTSD (post-traumatic stress disorder); Hyperglycemia; Type 2 diabetes mellitus treated with insulin (HCC) 05/07/2018 Hospital Cardiology - Encounter 05/11/2018 05/07/2018 Orders Only General Internal Medicine after 09/19/2017 Immunizations Name Dates Previously Given Next Due Pneumococcal Conjugate 05/11/2018 (Prevnar) 13-Valent Social History Date Tobacco Use Types Packs/Day Years Used Former Smoker Smokeless Tobacco: Former User Tobacco Cessation: Counseling Given: No Alcohol Use Drinks/Week oz/Week Comments Yes occasional Sex Assigned at Date Recorded Not on file Industry Job Start Date Occupation Not on file Not on file Not on file Travel End Travel History Travel Start No recent travel history available. Last Filed Vital Signs Time Taken Vital Sign Reading 06/06/2018 7:45 PM CDT Blood Pressure 131/81 06/06/2018 7:45 PM CDT Pulse 97 06/06/2018 7:45 PM CDT Temperature 36.9 C (98.4 F) 06/06/2018 8:15 PM CDT Respiratory Rate 16 06/06/2018 7:45 PM CDT Oxygen Saturation 97% 05/08/2018 3:19 AM CDT Inhaled Oxygen 21% Concentration 06/06/2018 4:46 PM CDT Weight 140.6 kg (310 lb) 06/06/2018 4:46 PM CDT Height 182.9 cm (6') 06/06/2018 4:46 PM CDT Body Mass Index 42.04 Plan of Treatment Not on file Implants Device Identifier Shelf Expiration Date Model / Serial / 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 05/09/2018 [id number] / / [id number] Closure Sys Perclose Progl 6fr Cardiovasc Right: Groin [place] [id number] - [id number] [facility] LAB:VASC Implanted: Qty: 1 on 12/26/2016 by Kate Celeste MD Procedures Comments Procedure Name Priority Date/Time Associated Diagnosis POCT-GLUCOSE METER Routine 06/06/2018 8:02 PM CDT TROPONIN I STAT 06/06/2018 7:18 PM CDT ECG 12-LEAD STAT 06/06/2018 6:44 PM CDT ED ECG INTERPRETATION Routine 06/06/2018 6:32 PM CDT CBC W/PLT COUNT & AUTO STAT 06/06/2018 DIFFERENTIAL 4:36 PM CDT KETONE, BLOOD STAT 06/06/2018 4:36 PM CDT BASIC METABOLIC PANEL (7) STAT 06/06/2018 4:36 PM CDT CBC W/PLT COUNT & AUTO STAT 06/06/2018 DIFFERENTIAL 4:36 PM CDT POCT-GLUCOSE METER Routine 06/06/2018 4:33 PM CDT CBC W/PLT COUNT & AUTO STAT 06/04/2018 DIFFERENTIAL 9:11 PM CDT TROPONIN I STAT 06/04/2018 9:11 PM CDT BASIC METABOLIC PANEL (7) STAT 06/04/2018 9:11 PM CDT CBC W/PLT COUNT & AUTO STAT 06/04/2018 DIFFERENTIAL 9:11 PM CDT PT/APTT STAT 06/04/2018 9:11 PM CDT ECG 12-LEAD Routine 06/04/2018 7:29 PM CDT ECG 12-LEAD Routine 06/04/2018 7:29 PM CDT Procedure Note - Interface, External Ris In - 06/04/2018 7:49 PM CDT Ventricula r Rate 81 BPM Atrial Rate 81 BPM P-R Interval 168 ms QRS Duration 112 ms Q-T Interval 366 ms QTC Calculatio n(Bazett) 425 ms P [place] 17 degrees R [place] 40 degrees T [place] 56 degrees Normal sinus rhythm Incomplete right bundle branch block Borderline ECG When compared with ECG of 8 16:46, Aberrant conduction is no longer Present CT BRAIN WITHOUT IV STAT 06/04/2018 CONTRAST 7:23 PM CDT RHYTHM STRIP - SCAN 06/01/2018 2:40 PM CDT POCT-GLUCOSE METER Routine 05/31/2018 8:43 AM CDT CBC W/PLT COUNT & AUTO Routine 05/31/2018 DIFFERENTIAL 4:37 AM CDT CBC W/PLT COUNT & AUTO Routine 05/31/2018 DIFFERENTIAL 4:37 AM CDT MAGNESIUM Routine 05/31/2018 4:37 AM CDT BASIC METABOLIC PANEL (7) Routine 05/31/2018 4:37 AM CDT POCT-GLUCOSE METER Routine 05/30/2018 11:23 PM CDT URINALYSIS W/ MICROSCOPIC Routine 05/30/2018 8:31 PM CDT RAPID DRUG SCREEN, URINE Routine 05/30/2018 8:31 PM CDT POCT-GLUCOSE METER Routine 05/30/2018 5:42 PM CDT POCT-GLUCOSE METER Routine 05/30/2018 4:08 PM CDT POCT-GLUCOSE METER Routine 05/30/2018 1:29 PM CDT TROPONIN I Routine 05/30/2018 11:07 AM CDT POCT-GLUCOSE METER Routine 05/30/2018 9:30 AM CDT CBC W/PLT COUNT & AUTO Routine 05/30/2018 DIFFERENTIAL 2:45 AM CDT CBC W/PLT COUNT & AUTO Routine 05/30/2018 DIFFERENTIAL 2:45 AM CDT MAGNESIUM Routine 05/30/2018 2:45 AM CDT LIPID PANEL Routine 05/30/2018 2:45 AM CDT BASIC METABOLIC PANEL (7) Routine 05/30/2018 2:45 AM CDT TROPONIN I Routine 05/30/2018 2:45 AM CDT POCT-GLUCOSE METER Routine 05/29/2018 10:50 PM CDT POCT-GLUCOSE METER Routine 05/29/2018 8:29 PM CDT XR SPINE LUMBAR COMPLETE STAT 05/29/2018 MIN 4 VIEWS 6:38 PM CDT XR PELVIS 1 OR 2 VIEWS STAT 05/29/2018 6:37 PM CDT XR RIBS LEFT W/PA CHEST STAT 05/29/2018 MIN 3 VIEWS 6:[address] SPINE CERVICAL WITHOUT STAT 05/29/2018 IV CONTRAST 5:[address] BRAIN WITHOUT IV STAT 05/29/2018 CONTRAST 5:34 PM CDT ECG 12-LEAD Routine 05/29/2018 4:46 PM CDT Procedure Note - Interface, External Ris In - 05/29/2018 7:31 PM CDT Ventricula r Rate 83 BPM Atrial Rate 83 BPM P-R Interval 178 ms QRS Duration 118 ms Q-T Interval 388 ms QTC Calculatio n(Bazett) 455 ms P [place] 38 degrees R [place] 42 degrees T [place] 42 degrees Sinus rhythm with Possible Premature atrial complexes with Aberrant conduction Incomplete right bundle branch block Borderline ECG When compared with ECG of 8 13:36, Fusion complexes are no longer Present Premature ventricula r complexes are no longer Present Aberrant conduction is now Present Incomplete right bundle branch block is now Present ECG 12-LEAD STAT 05/29/2018 4:46 PM CDT CBC W/PLT COUNT & AUTO STAT 05/29/2018 DIFFERENTIAL 4:46 PM CDT CREATINE KINASE (CK), STAT 05/29/2018 TOTAL AND MB 4:46 PM CDT COMPREHENSIVE METABOLIC STAT 05/29/2018 PANEL 4:46 PM CDT TROPONIN I STAT 05/29/2018 4:46 PM CDT CBC W/PLT COUNT & AUTO STAT 05/29/2018 DIFFERENTIAL 4:46 PM CDT PT/APTT STAT 05/29/2018 4:46 PM CDT PHOSPHORUS STAT 05/29/2018 4:46 PM CDT MAGNESIUM STAT 05/29/2018 4:46 PM CDT POCT-GLUCOSE METER Routine 05/29/2018 4:43 PM CDT RHYTHM STRIP - SCAN 05/13/2018 2:01 PM CDT POCT-GLUCOSE METER Routine 05/11/2018 1:59 PM CDT POCT-GLUCOSE METER Routine 05/11/2018 11:50 AM CDT POCT-GLUCOSE METER Routine 05/11/2018 9:28 AM CDT POCT-GLUCOSE METER Routine 05/11/2018 8:10 AM CDT POCT-GLUCOSE METER Routine 05/10/2018 9:41 PM CDT POCT-GLUCOSE METER Routine 05/10/2018 4:52 PM CDT POCT-GLUCOSE METER Routine 05/10/2018 3:00 PM CDT POCT-GLUCOSE METER Routine 05/10/2018 2:56 PM CDT POCT-GLUCOSE METER Routine 05/10/2018 1:46 PM CDT POCT-GLUCOSE METER Routine 05/10/2018 12:17 PM CDT POCT-GLUCOSE METER Routine 05/10/2018 7:58 AM CDT BASIC METABOLIC PANEL (7) Routine 05/10/2018 5:55 AM CDT POCT-GLUCOSE METER Routine 05/09/2018 9:48 PM CDT POCT-GLUCOSE METER Routine 05/09/2018 6:34 PM CDT POCT-GLUCOSE METER Routine 05/09/2018 4:04 PM CDT POCT-GLUCOSE METER Routine 05/09/2018 2:09 PM CDT HEMOGLOBIN A1C Routine 05/09/2018 1:09 PM CDT MR BRAIN WITHOUT IV Routine 05/09/2018 CONTRAST 12:49 PM CDT POCT-GLUCOSE METER Routine 05/09/2018 12:17 PM CDT POCT-GLUCOSE METER Routine 05/09/2018 7:56 AM CDT BASIC METABOLIC PANEL (7) Routine 05/09/2018 5:30 AM CDT POCT-GLUCOSE METER Routine 05/08/2018 9:10 PM CDT POCT-GLUCOSE METER Routine 05/08/2018 4:45 PM CDT EEG AWAKE AND DROWSY Routine 05/08/2018 2:27 PM CDT POCT-GLUCOSE METER Routine 05/08/2018 11:27 AM CDT POCT-GLUCOSE METER Routine 05/08/2018 8:01 AM CDT CBC W/PLT COUNT & AUTO Routine 05/08/2018 DIFFERENTIAL 6:07 AM CDT LIPID PANEL Routine 05/08/2018 6:07 AM CDT CBC W/PLT COUNT & AUTO Routine 05/08/2018 DIFFERENTIAL 6:07 AM CDT BASIC METABOLIC PANEL (7) Routine 05/08/2018 6:07 AM CDT TROPONIN I Routine 05/08/2018 6:07 AM CDT POCT-GLUCOSE METER Routine 05/07/2018 7:21 PM CDT TROPONIN I Routine 05/07/2018 5:46 PM CDT CBC W/PLT COUNT & AUTO STAT 05/07/2018 DIFFERENTIAL 2:01 PM CDT CREATINE KINASE (CK), STAT 05/07/2018 TOTAL AND MB 2:01 PM CDT B-TYPE NATRIURETIC FACTOR STAT 05/07/2018 (BNP) 2:01 PM CDT PT/APTT STAT 05/07/2018 2:01 PM CDT CBC W/PLT COUNT & AUTO STAT 05/07/2018 DIFFERENTIAL 2:01 PM CDT TROPONIN I STAT 05/07/2018 2:01 PM CDT MAGNESIUM STAT 05/07/2018 2:01 PM CDT BASIC METABOLIC PANEL (7) STAT 05/07/2018 2:01 PM CDT XR CHEST 1 VIEW STAT 05/07/2018 PORTABLE/BEDSIDE 1:55 PM CDT ECG 12-LEAD STAT 05/07/2018 1:36 PM CDT after 09/19/2017 Results * POC-Glucose meter (06/06/2018 8:02 PM CDT) Only the most recent of 33 results within the time period is included. POC-Glucose Meter 186 (H)Comment: TESTED AT 70 - 110 mg/dL [address] [id number] Specimen Blood Performing Organization Address City/State/Zipcode Phone Number [address] [address] [facility] * Troponin I (not available at [facility] [place]) (06/06/2018 7:18 PM CDT) Only the most recent of 8 results within the time period is included. Troponin I <0.01 0.00 - 0.03 ng/mL [facility] Specimen Blood Narrative Performed At Troponin I (TnI) levels must be interpreted in the context of the presenting [facility] symptoms and the clinical findings. Elevated TnI levels indicate myocardial [facility] damage, but are not specific for ischemic heart disease. Elevated TnI levels are seen in patients with other cardiac conditions (including myocarditis and congestive heart failure), and slight TnI elevations occur in patients with other conditions, including sepsis, renal failure, acidosis, acute neurological disease, and persistent tachyarrhythmia. Performing Organization Address City/State/Zipcode Phone Number [facility] [address] [place] [address] [facility] * ECG 12 lead (06/06/2018 6:44 PM CDT) Only the most recent of 4 results within the time period is included. Narrative Performed At Ventricular Rate 97 BPM GE MUSE Atrial Rate 97 BPM P-R Interval 172 ms QRS Duration 106 ms Q-T Interval 356 ms QTC Calculation(Bazett) 452 ms P [place] 53 degrees R [place] 125 degrees T [place] 32 degrees Normal sinus rhythm Left posterior fascicular block Incomplete right bundle branch block Inferior infarct , age undetermined Abnormal ECG When compared with ECG of 04-JUN-2018 19:29, Left posterior fascicular block is now Present Inferior infarct is now Present Confirmed by MD ALDANA YOCHAI ([id number]) on 06/07/2018 6:33:54 AM Procedure Note Interface, External Ris In - 06/07/2018 6:34 AM CDT Ventricular Rate 97 BPM Atrial Rate 97 BPM P-R Interval 172 ms QRS Duration 106 ms Q-T Interval 356 ms QTC Calculation(Bazett) 452 ms P [place] 53 degrees R [place] 125 degrees T [place] 32 degrees Normal sinus rhythm Left posterior fascicular block Incomplete right bundle branch block Inferior infarct , age undetermined Abnormal ECG When compared with ECG of 04-JUN-2018 19:29, Left posterior fascicular block is now Present Inferior infarct is now Present Confirmed by MD ALDANA YOCHAI ([id number]) on 06/07/2018 6:33:54 AM Performing Organization Address City/State/[facility] Phone Number GE MUSE * ECG/EKG Interpretation (06/06/2018 6:32 PM CDT) Narrative Performed At Reji Naranjo MD 06/07/2018 10:26 AM ECG/EKG Interpretation Date/Time: 06/06/2018 6:44 PM Performed by: Reji Naranjo MD Authorized by: Reji Naranjo MD The ECG was interpreted by ED physician. The ECG is interpreted as sinus rhythm. Rate is normal rate. Heart rate is 97 BPM. Abnormal conduction noted: LAFB. ST segments normal. T waves abnormal. [place] is normal. Other findings: no other findings. Clinical Impression: abnormal ECGECG reviewed and does not meet STEMI criteria. Patient tolerance: Patient tolerated the procedure well with no immediate complications * CBC with platelet count + automated diff (06/06/2018 4:36 PM CDT) Only the most recent of 7 results within the time period is included. WBC 6.6 3.5 - 10.5 K/L [facility] RBC 4.20 (L) 4.63 - 6.08 M/L [facility] Hemoglobin 12.9 (L) 13.7 - 17.5 GM/DL [facility] Hematocrit 37.6 (L) 40.1 - 51.0 % [facility] MCV 89.5 79.0 - 92.2 fL [facility] MCH 30.7 25.7 - 32.2 pg [facility] MCHC 34.3 32.3 - 36.5 GM/DL [facility] RDW 13.1 11.6 - 14.4 % [facility] Platelets 142 (L) 150 - 450 K/CU MM [facility] MPV 9.0 (L) 9.4 - 12.4 fL [facility] nRBC 0 0 - 0 /100 WBC [facility] % Neutros 74 % [facility] % Lymphs 18 % [facility] % Monos 7 % [facility] % Eos 1 % [facility] % Baso 0 % [facility] # Neutros 4.92 1.78 - 5.38 K/L [facility] # Lymphs 1.20 (L) 1.32 - 3.57 K/L [facility] # Monos 0.44 0.30 - 0.82 K/L [facility] # Eos 0.03 (L) 0.04 - 0.54 K/L [facility] # Baso 0.02 0.01 - 0.08 K/L [facility] Immature 0 0 - 1 % [facility] Granulocytes-Relative [facility] Specimen Blood Performing Organization Address City/State/Zipcode Phone Number [address] [address] [facility] * Ketones, blood (06/06/2018 4:36 PM CDT) Ketones, Blood 0.1 <0.4 mmol/L [facility] Specimen Blood Performing Organization Address City/[facility] [place] [address] [phone] [place] [address] * Basic metabolic panel (Na, K+, Cl, CO2, Glu, Ca, BUN, Cr) (06/06/2018 4:36 PM CDT) Only the most recent of 8 results within the time period is included. Sodium 132 (L) 136 - 145 meq/L [facility] Potassium 3.9 3.5 - 5.1 meq/L [facility] Chloride 103 98 - 107 meq/L [facility] CO2 18 (L) 22 - 29 meq/L [facility] BUN 11 7 - 21 mg/dL [facility] Creatinine 1.25 0.57 - 1.25 mg/dL [facility] Glucose 355 (H) 70 - 105 mg/dL [facility] Calcium 10.3 (H) 8.4 - 10.2 mg/dL [facility] EGFR 62Comment: ESTIMATED GFR IS mL/min/1.[address] [facility] NOT ACCURATE CREATININE [facility] CLEARANCE IN PREDICTING GLOMERULAR FILTRATION RATE. ESTIMATED GFR IS NOT APPLICABLE FOR DIALYSIS PATIENTS. Specimen Blood Performing Organization Address City/State/Zipcode Phone Number [facility] [address] [place] [address] [facility] * PT/aPTT (06/04/2018 9:11 PM CDT) Only the most recent of 3 results within the time period is included. Protime 12.5 11.7 - 14.7 seconds [facility] INR 0.9 <=5.9 [facility] PTT 23.9 22.5 - 36.0 seconds [facility] Specimen Blood Narrative Performed At RECOMMENDED COUMADIN/WARFARIN INR THERAPY RANGES [facility] STANDARD DOSE: 2.0 - 3.0 Includes: PROPHYLAXIS for venous thrombosis, [facility] systemic embolization; TREATMENT for venous thrombosis and/or pulmonary embolus. HIGH RISK: Target INR is 2.5-3.5 for patients with mechanical heart valves. Performing Organization Address City/[facility] Cent[facility] Phone Number [facility] [address] [place], [place] [phone] [facility] * CT brain without IV contrast (06/04/2018 7:23 PM CDT) Only the most recent of 2 results within the time period is included. Narrative Performed At FINAL REPORT [employer] [facility] CT head without contrast INDICATION: Ataxia, head trauma, fall TECHNIQUE: Axial noncontrast CT images through the head were obtained. This exam was performed according to our departmental dose optimization program which includes automated exposure control, adjustment of the mA and/or kV according to patient size and/or use of iterative reconstruction technique. COMPARISON: CT head 05/29/2018 FINDINGS: There is no scalp hematoma or acute calvarial fracture. No acute intra or extra-axial hemorrhage is seen. Generalized parenchymal volume loss is greater than expected for age. Mild vascular calcifications are present. There is no hydrocephalus, mass effect, or midline shift. There is minimal chronic sinus mucosal thickening with well aerated mastoid air cells. The globes remain proptotic. IMPRESSION: No acute intracranial hemorrhage or calvarial fracture. Additional chronic appearing findings as discussed above. Signed: Raffi Mendez MD Report Verified Date/Time:06/04/2018 19:34:16 Reading Location: [facility] Radiology Reading Room Procedure Note Interface, External Ris In - 06/04/2018 7:36 PM CDT FINAL REPORT CT head without contrast INDICATION: Ataxia, head trauma, fall TECHNIQUE: Axial noncontrast CT images through the head were obtained. This exam was performed according to our departmental dose optimization program which includes automated exposure control, adjustment of the mA and/or kV according to patient size and/or use of iterative reconstruction technique. COMPARISON: CT head 05/29/2018 FINDINGS: There is no scalp hematoma or acute calvarial fracture. No acute intra or extra-axial hemorrhage is seen. Generalized parenchymal volume loss is greater than expected for age. Mild vascular calcifications are present. There is no hydrocephalus, mass effect, or midline shift. There is minimal chronic sinus mucosal thickening with well aerated mastoid air cells. The globes remain proptotic. IMPRESSION: No acute intracranial hemorrhage or calvarial fracture. Additional chronic appearing findings as discussed above. Signed: Raffi Mendez MD Report Verified Date/Time: 06/04/2018 19:34:16 Reading Location: [facility] Radiology Reading Room Performing Organization Address City/[facility]/Zipcode Phone Number GE RIS * RHYTHM STRIP - SCAN (06/01/2018 2:40 PM CDT) Only the most recent of 2 results within the time period is included. Narrative Performed At * Magnesium (05/31/2018 4:37 AM CDT) Only the most recent of 4 results within the time period is included. Magnesium 2.4Comment: Specimen slightly 1.6 - 2.6 mg/dL [facility] hemolyzed [facility] Specimen Blood - Arm, Left Performing Organization Address City/[facility]/Zipcode Phone Number [place] [phone] [place] [address] [facility] * Rapid drug screen, urine (05/30/2018 8:31 PM CDT) Barbiturate Screen Negative Negative [facility] Benzodiazepine Screen Positive (A) Negative [facility] Cocaine (Metab.) Screen Negative Negative [facility] Methadone Screen Negative Negative [facility] Opiate Screen Positive (A) Negative [facility] Cannabinoid Screen Negative Negative [facility] Amph/Methamph Screen Negative Negative [facility] Phencyclidine Screen Negative Negative [facility] Oxycodone Screen Negative Negative [facility] Specimen Urine - Urine, Clean Catch Narrative Performed At [facility] Cocaine 300 ng/mL [facility] [id number] ng/mL [id number] ng/mL Barbiturate 200 ng/mL [id number] ng/mL Mebvia029 ng/mL Methadone 300 ng/mL Amphetamine/ 1000 ng/mL Methamphetamine Oxycodone 300 ng/mL This assay provides an unconfirmed qualitative test result for the clinical management of patients in emergency situations. Chain of custody not maintained. Some [id number] medications, as well as adulterants, may cause inaccurate results. Clinical correlation should be applied. A more comprehensive drug screen or confirmation of a detected drug may be performed upon request. Performing Organization Address City/State/Zipcode Phone Number [facility] [address] [place] [address] [facility] * Urinalysis w/Microscopic (05/30/2018 8:31 PM CDT) Color, UA Light Yellow [facility] Clarity, UA Clear [facility] Specific [place], UA 1.013 1.001 - 1.035 [facility] pH, UA 6.0 5.0 - 8.0 [facility] Protein, UA Negative Negative [facility] Glucose, UA >1000 mg/dL (A) Negative [facility] Ketones, UA Negative Negative [facility] Bilirubin, UA Negative Negative [facility] Blood, UA Negative Negative [facility] Nitrite, UA Negative Negative [facility] Leukocytes, UA Negative Negative [facility] Urobilinogen, UA 0.2 0.2 - 1.0 mg/dL [facility] RBC, UA <1 /HPF [facility] WBC, UA 0 /HPF [facility] Specimen Source Urine, Clean Catch [facility] Specimen Urine - Urine, Clean Catch Performing Organization Address [facility] Phone Number [address] [address] [facility] * Lipid panel (05/30/2018 2:45 AM CDT) Only the most recent of 2 results within the time period is included. Triglycerides 287Comment: Specimen slightly mg/dL [facility] Cholesterol 146Comment: Specimen slightly mg/dL [facility] HDL 32 mg/dL [facility] LDL Calculated 57 mg/dL [facility] Specimen Blood - Arm, Right Narrative Performed At Triglyceride Reference Range: [facility] Low Risk <150 [facility] [id number] High Risk 200-499 Very High Risk>=500 Cholesterol Reference Range: Low Risk <200 [id number] High Risk>240 HDL Cholesterol Reference Range: Low Risk >=60 High Risk <40 LDL Cholesterol Reference Range: Optimal<100 Near [id number] Very High >=190 Performing Organization Address City/[facility] Phone Number [facility] [address] [place] [address] [facility] * XR spine lumbar complete 4 views min (05/29/2018 6:38 PM CDT) Narrative Performed At FINAL REPORT [facility] RAD, SPINE, LUMBAR, COMPLETE (MIN 4 VIEWS) CLINICAL INDICATION: FALL FALL COMPARISON: None FINDINGS: Oblique, frontal, lateral and coned lateral radiographs of the lumbar spine. No fracture or loss of vertebral height is identified. The disc spaces are preserved. The lumbar spine alignment is normal.Psoas shadows are in place. IMPRESSION: No acute abnormality of the lumbar spine. Signed: JR Servin Robert MD Report Verified Date/Time:05/29/2018 19:24:24 Reading Location: [facility] C013Y CT Body Reading Room Procedure Note Interface, External Ris In - 05/29/2018 7:26 PM CDT FINAL REPORT RAD, SPINE, LUMBAR, COMPLETE (MIN 4 VIEWS) CLINICAL INDICATION: FALL FALL COMPARISON: None FINDINGS: Oblique, frontal, lateral and coned lateral radiographs of the lumbar spine. No fracture or loss of vertebral height is identified. The disc spaces are preserved. The lumbar spine alignment is normal. Psoas shadows are in place. IMPRESSION: No acute abnormality of the lumbar spine. Signed: JR Servin Robert MD Report Verified Date/Time: 05/29/2018 19:24:24 Reading Location: [facility] C013Y CT Body Reading Room Performing Organization Address City/State/Zipcode Phone Number [facility] * XR pelvis 1 or 2 views (05/29/2018 6:37 PM CDT) Narrative Performed At FINAL REPORT [facility] CLINICAL HISTORY: Trauma and pain. A single view of the pelvis is submitted without comparison. There is no acute fracture or malalignment. No destructive bony lesion, significant degenerative change or radiopaque foreign body is present. The surrounding soft tissues are normal. IMPRESSION: No acute abnormality. Signed: Christian Anderson MD Report Verified Date/Time:05/29/2018 19:16:28 Reading Location: [address] Reading Room Procedure Note Interface, External Ris In - 05/29/2018 7:18 PM CDT FINAL REPORT CLINICAL HISTORY: Trauma and pain. A single view of the pelvis is submitted without comparison. There is no acute fracture or malalignment. No destructive bony lesion, significant degenerative change or radiopaque foreign body is present. The surrounding soft tissues are normal. IMPRESSION: No acute abnormality. Signed: Christian Anderson MD Report Verified Date/Time: 05/29/2018 19:16:28 Reading Location: [address] Reading Room Performing Organization Address City/State/Zipcode Phone Number [facility] * XR ribs with pa chest 3 views min left (05/29/2018 6:33 PM CDT) Narrative Performed At FINAL REPORT [facility] RAD, RIBS, LEFT \T\ PA CHEST, MIN 3 VIEWS INDICATION: FALL FALL COMPARISON: None FINDINGS: Frontal and multiple oblique views of the left rib cage. Dual-energy views were also obtained. Frontal view of the chest reveals clear lungs. There is no effusion or pneumothorax. Mediastinal contours are within normal limits. No rib fracture is identified. The intercostal spaces are preserved and symmetric. IMPRESSION: No rib fracture. Signed: JR Servin Robert MD Report Verified Date/Time:05/29/2018 19:12:04 Reading Location: [facility] C013Y CT Body Reading Room Procedure Note Interface, External Ris In - 05/29/2018 7:20 PM CDT FINAL REPORT RAD, RIBS, LEFT \T\ PA CHEST, MIN 3 VIEWS INDICATION: FALL FALL COMPARISON: None FINDINGS: Frontal and multiple oblique views of the left rib cage. Dual-energy views were also obtained. Frontal view of the chest reveals clear lungs. There is no effusion or pneumothorax. Mediastinal contours are within normal limits. No rib fracture is identified. The intercostal spaces are preserved and symmetric. IMPRESSION: No rib fracture. Signed: JR Servin Robert MD Report Verified Date/Time: 05/29/2018 19:12:04 Reading Location: [facility] C013Y CT Body Reading Room Performing Organization Address City/State/Zipcode Phone Number [facility] * CT spine cervical without IV contrast (05/29/2018 5:34 PM CDT) Narrative Performed At FINAL REPORT [facility] CT cervical spine without contrast INDICATION: DIZZINESS LOSS OF CONSCIOUSNESS trauma COMPARISON: No priors TECHNIQUE: Multiple axial CT images of the cervical spine were obtained without contrast. Sagittal and coronal 2D reconstructions were provided as well. This exam was performed according to our departmental dose optimization program which includes automated exposure control, adjustment of the mA and/or kV according to patient's size and/or use of iterative reconstructive technique. FINDINGS: Vertebral body height is normal, and alignment is maintained. No evidence of acute fracture or dislocation in the cervical spine. Mild levocurvature could be positional. There is no prevertebral edema. No hematoma, or abnormal fluid collection is identified. Visualized paraspinal soft tissues are unremarkable. Visualized thyroid gland and lung apices are unremarkable. IMPRESSION: No acute fracture, or dislocation identified in the cervical spine. CT head without contrast. Reason for exam: DIZZINESS LOSS OF CONSCIOUSNESS trauma Comparisons: MRI dated May 09, 2018 Discussion: Multiple axial CT images of the head are provided without contrast evaluated in brain and bone windows. This exam was performed according to our departmental dose optimization program which includes automated exposure control, adjustment of the mA and/or kV according to patient's size and/or use of iterative reconstructive technique. The soriano-white differentiation is maintained. There is no CT evidence of intracranial hemorrhage, mass-effect, hydrocephalus, shift, or extra-axial collections. The visualized orbital contents, bones and surrounding soft tissues are unremarkable. The visualized paranasal sinuses and mastoid air cells are unremarkable. Impressions: No CT evidence of acute intracranial process. Signed: Todd Hartley MD Report Verified Date/Time:05/29/2018 17:30:29 Reading Location: [facility] C013 Neuro Reading Room Procedure Note Interface, External Ris In - 05/29/2018 5:34 PM CDT FINAL REPORT CT cervical spine without contrast INDICATION: DIZZINESS LOSS OF CONSCIOUSNESS trauma COMPARISON: No priors TECHNIQUE: Multiple axial CT images of the cervical spine were obtained without contrast. Sagittal and coronal 2D reconstructions were provided as well. This exam was performed according to our departmental dose optimization program which includes automated exposure control, adjustment of the mA and/or kV according to patient's size and/or use of iterative reconstructive technique. FINDINGS: Vertebral body height is normal, and alignment is maintained. No evidence of acute fracture or dislocation in the cervical spine. Mild levocurvature could be positional. There is no prevertebral edema. No hematoma, or abnormal fluid collection is identified. Visualized paraspinal soft tissues are unremarkable. Visualized thyroid gland and lung apices are unremarkable. IMPRESSION: No acute fracture, or dislocation identified in the cervical spine. CT head without contrast. Reason for exam: DIZZINESS LOSS OF CONSCIOUSNESS trauma Comparisons: MRI dated May 09, 2018 Discussion: Multiple axial CT images of the head are provided without contrast evaluated in brain and bone windows. This exam was performed according to our departmental dose optimization program which includes automated exposure control, adjustment of the mA and/or kV according to patient's size and/or use of iterative reconstructive technique. The soriano-white differentiation is maintained. There is no CT evidence of intracranial hemorrhage, mass-effect, hydrocephalus, shift, or extra-axial collections. The visualized orbital contents, bones and surrounding soft tissues are unremarkable. The visualized paranasal sinuses and mastoid air cells are unremarkable. Impressions: No CT evidence of acute intracranial process. Signed: Todd Hartley MD Report Verified Date/Time: 05/29/2018 17:30:29 Reading Location: [address] Neuro Reading Room Performing Organization Address City/State/Zipcode Phone Number [facility] * Phosphorus (05/29/2018 4:46 PM CDT) Phosphorus 3.4Comment: Specimen markedly 2.3 - 4.7 mg/dL [facility] hemolyzed [facility] Specimen Blood - Arm, Right Performing Organization Address City/[facility]/Zipcode Phone Number [facility] [address] [place] [address] [facility] * Creatine Kinase (CK), Total and MB (05/29/2018 4:46 PM CDT) Only the most recent of 2 results within the time period is included. Total CK 199 29 - 200 U/L [facility] CK-MB 4.8 0.0 - 6.6 ng/mL [facility] MB Relative Index 2.4 % [facility] Specimen Blood - Arm, Right Narrative Performed At CK-MB Reference Range: [facility] <6.7Normal [facility] 6.7-10.0Borderline >10.0 Abnormal Performing Organization Address City/State/Zipcode Phone Number [facility] [address] [place] [address] [facility] * Comprehensive metabolic panel (05/29/2018 4:46 PM CDT) Protein, Total 7.7Comment: Specimen markedly 6.0 - 8.3 gm/dL [facility] Albumin 4.3Comment: Specimen markedly 3.5 - 5.0 g/dL [facility] Alkaline Phosphatase 71 40 - 150 U/L [facility] Total Bilirubin 0.7Comment: Specimen markedly 0.2 - 1.2 mg/dL [facility] Sodium 132 (L) 136 - 145 meq/L [facility] Potassium 5.2 (H)Comment: Specimen 3.5 - 5.1 meq/L [facility] markedly hemolyzed [facility] Chloride 99 98 - 107 meq/L [facility] CO2 22 22 - 29 meq/L [facility] BUN 13 7 - 21 mg/dL [facility] Creatinine 1.33 (H)Comment: Specimen 0.57 - 1.25 mg/dL [facility] Glucose 261 (H) 70 - 105 mg/dL [facility] Calcium 10.0 8.4 - 10.2 mg/dL [facility] AST 60 (H)Comment: Specimen 5 - 34 U/L [facility] markedly hemolyzed [facility] ALT 39Comment: Specimen markedly 6 - 55 U/L [facility] hemolyzed [facility] EGFR 58Comment: ESTIMATED GFR IS mL/min/1.[address] [facility] NOT ACCURATE CREATININE [facility] CLEARANCE IN PREDICTING GLOMERULAR FILTRATION RATE. ESTIMATED GFR IS NOT APPLICABLE FOR DIALYSIS PATIENTS. Specimen Blood - Arm, Right Performing Organization Address City/State/[place] [address] [phone] [place] [address] * Hemoglobin A1c (05/09/2018 1:09 PM CDT) Hemoglobin A1C 8.3 (H) 4.3 - 6.1 % [facility] Specimen Blood - Arm, Right Performing Organization Address [facility] [place] [address] [phone] * MR brain without IV contrast (05/09/2018 12:49 PM CDT) Narrative Performed At FINAL REPORT [employer] MRI brain without contrast INDICATION: Headache, dizziness. [...] MD Report Verified Date/Time:05/09/2018 11:23:03 Reading Location: [address] Neuro Reading Room Procedure Note Interface, [...] Report Verified Date/Time: 05/09/2018 11:23:03 Reading Location: [address] Neuro Reading Room Performing Organization Address City/State/Zipcode Phone Number [facility] * EEG AWAKE AND DROWSY (05/08/2018 2:27 PM CDT) Narrative Performed At Neurophysiology Electroencephalogram Report [facility] DATE OF REPORT: 05/08/18 Date(s) of Study: 05/08/2018 ACC: [id number] Start time: 05/08/2018 at 13:55 Stop time: 05/08/2018 at 14:16 ICD-10: R56.9 CPT Code: 39574 HISTORY: 47 y old male with h/o [...] Rocky Leija MD, MS Clinical Neurophysiology/Epilepsy Attending Procedure Note Interface, External Ris In - 05/08/2018 3:19 PM CDT Neurophysiology Electroencephalogram Report DATE OF REPORT: 05/08/18 Date(s) of Study: 05/08/2018 ACC: [id number] Start time: 05/08/2018 at 13:55 Stop time: 05/08/2018 at 14:16 ICD-10: R56.9 CPT Code: 53896 HISTORY: 47 y old male with h/o [...] Rocky Leija MD, MS Clinical Neurophysiology/Epilepsy Attending Performing Organization Address City/State/Zipcode Phone Number [facility] * B-type Natriuretic Factor (BNP) (05/07/2018 2:01 PM CDT) BNP 20 0 - 100 pg/mL [facility] Specimen Blood - Arm, Right Performing Organization Address City/State/Zipcode Phone Number [facility] [address] [place] [address] [facility] * XR chest 1 view portable / bedside (05/07/2018 1:55 PM CDT) Narrative Performed At FINAL REPORT [facility] TECHNIQUE: Single view of the chest. COMPARISON: 12/31/2016 FINDINGS: The cardiac silhouette is within normal limits.Mediastinum is unremarkable. Lungs are clear.No acute skeletal abnormality. There is mild thoracolumbar scoliosis. Soft tissues appear unremarkable. IMPRESSION: No acute cardiopulmonary disease. Signed: Osiel Snow MD Report Verified Date/Time:05/07/2018 14:53:36 Reading Location: [facility] C013 Consult Reading Room Procedure Note Interface, External [...] Report Verified Date/Time: 05/07/2018 14:53:36 Reading Location: [facility] B1 C013W Consult Reading Room Performing Organization Address City/State/Zipcode Phone Number ERLINDA after 09/19/2017 Insurance Payer Benefit Subscriber ID Type Phone Address Plan / Group [employer]UE [employer] BCBS ADV xxxxxxxxxxxx [phone] [address] [place] [address] EXCHANGE Advance Directives For more information, please contact: [facility] [address] [place] [id number] Date Inactivated Comments Code Status Date Activated 05/31/2018 2:13 PM Full Code 05/29/2018 8:14 PM This code status was determined by: Patient 05/11/2018 6:00 PM Full Code 05/07/2018 4:35 PM This code status was determined by: Patient 12/27/2016 2:48 PM Full Code 12/25/2016 6:06 AM This code status was determined by: Patient
--- OUTSIDE RECORDS SUMMARY | 2018-09-20 13:35 | XMS REPORT | Continuity of Care Document ---
Author Author [facility] Interface Address Unknown Phone Unavailable Problems Problem Status Onset Date Classification Date Reported Comments Source Wrist pain Active 08/25/2018 Diagnosis 09/11/2018 [facility] Dermatitis due to drug reaction Active 07/23/2018 Diagnosis 09/11/2018 [facility] Acute right otitis media Inactive 07/22/2018 Problem 09/11/2018 [facility] Pain in right shoulder Inactive 07/19/2018 Problem 09/11/2018 [facility] Chronic back pain Active 06/23/2018 Diagnosis 09/11/2018 [facility] Syncope Active 06/15/2018 Diagnosis 09/11/2018 [facility] Congestive heart failure Active 04/23/2018 Diagnosis 09/11/2018 [facility] Tachycardia Active 04/23/2018 Diagnosis 09/11/2018 [facility] DEPRESSIVE DISORDER, MAJOR, RECURRENT EPISODE, UNSPECIFIED Active 04/23/2018 Diagnosis 09/11/2018 [facility] MORBID OBESITY Active 04/12/2018 Diagnosis 09/11/2018 [facility] BMI 40.0-44.9 Active 04/12/2018 Diagnosis 09/11/2018 [facility] Dizziness Active 04/09/2018 Diagnosis 09/11/2018 [facility] Hyperlipidemia Active 03/26/2018 Diagnosis 09/11/2018 [facility] CAD Active 03/26/2018 Diagnosis 09/11/2018 [facility] Insomnia Active 03/26/2018 Diagnosis 09/11/2018 [facility] PTSD Active 03/26/2018 Diagnosis 09/11/2018 [facility] Restless leg syndrome Active 03/26/2018 Diagnosis 09/11/2018 [facility] Hypertension Active 03/26/2018 Diagnosis 09/11/2018 [facility] Seasonal allergies Active 03/26/2018 Diagnosis 09/11/2018 [facility] Diabetes mellitus type II Active 03/26/2018 Diagnosis 09/11/2018 [facility] Panic attack Active 03/26/2018 Diagnosis 09/11/2018 [facility] Generalized anxiety disorder Active 03/26/2018 Diagnosis 09/11/2018 [facility] Diabetic neuropathy Active 03/26/2018 Diagnosis 09/11/2018 [facility] 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 Diagnosis 09/11/2018 [facility] Depression, chronic Inactive 03/26/2018 [facility] 09/11/2018 [facility], type II Inactive 02/18/2018 Problem 09/11/2018 [facility] CHEST PAIN Active 11/30/2016 [facility] Chest pain Active Problem 05/06/2018 [facility] Seizure-like activity Active Problem 05/06/2018 [facility] Hypertension Resolved Problem 12/04/2016 [facility] PTSD (<span ID="[id number]">Confirmed</span>) Resolved Problem 12/04/2016 [facility] Medications Medication Details Route Status Patient Instructions Ordering Provider Order Date Source LANTUS 100 UNIT/ML SUBCUTANEOUS SOLUTION 42 units sq daily Active 42 units sq daily 08/25/2018 [facility] LISINOPRIL 1 by mouth every day Active 1 by mouth every day 08/25/2018 [facility] INSULIN PEN NEEDLE use as directed Active use as directed 08/25/2018 [facility] LANTUS SOLOSTAR 100 UNIT/ML SUBCUTANEOUS SOLUTION PEN-INJECTOR 42 unit sq daily Active 42 unit sq daily 08/25/2018 [facility] VIIBRYD 40 MG ORAL TABLET Take 1 tablet by mouth daily. Active Take 1 tablet by mouth daily. 08/25/2018 [facility] LANTUS SOLOSTAR 100 UNIT/ML SUBCUTANEOUS SOLUTION PEN-INJECTOR 42 unit sq daily No Longer Active 42 unit sq daily 08/25/2018 [facility] AZITHROMYCIN 2 tablets by mouth on day one then one tablet by mouth each day for a total of 5 days No Longer Active 2 tablets by mouth on day one then one tablet by mouth each day for a total of 5 days 07/23/2018 [facility] INSULIN PEN NEEDLE Please use new needle for pen Active Please use new needle for pen 07/22/2018 [facility] CEFDINIR 2 tablets by mouth every day for 10 days No Longer Active 2 tablets by mouth every day for 10 days 07/22/2018 [facility] TYLENOL WITH CODEINE #3 300-30 MG ORAL TABLET 1 by mouth every 8 hours as needed Active 1 by mouth every 8 hours as needed 07/19/2018 [facility] TYLENOL WITH CODEINE #3 300-30 MG ORAL TABLET 1 by mouth every 8 hours as needed No Longer Active 1 by mouth every 8 hours as needed 07/19/2018 [facility] VIIBRYD 20 MG ORAL TABLET Take 1 tablet by mouth daily. Active Take 1 tablet by mouth daily. 06/25/2018 [facility] VIIBRYD 20 MG ORAL TABLET Take 1 tablet by mouth daily. No Longer Active Take 1 tablet by mouth daily. 06/25/2018 [facility] MECLIZINE HCL 1 by mouth 3 times a day as needed for dizziness Active 1 by mouth 3 times a day as needed for dizziness 06/15/2018 [facility] ASPIRIN 1 by mouth every day Active 1 by mouth every day 06/15/2018 [facility] GABITRIL 4 MG ORAL TABLET Take one tablet by mouth twice a day. Active Take one tablet by mouth twice a day. 04/23/2018 [facility] DOXEPIN HCL Take 1-2 capsules at bedtime as needed for sleep. Active Take 1-2 capsules at bedtime as needed for sleep. 04/23/2018 [facility] PAXIL 30 MG ORAL TABLET Take 2 tablets by mouth daily. Active Take 2 tablets by mouth daily. 04/23/2018 [facility] GABITRIL 4 MG ORAL TABLET Take one tablet by mouth twice a day. No Longer Active Take one tablet by mouth twice a day. 04/23/2018 [facility] Doxazosin Mesylate 1 Mg Tablet, Active 04/15/2018 [facility] Glipizide 10 Mg Tablet, 10 Mg Oral Twice A Day Active 04/15/2018 [facility] Linezolid (Zyvox) 600 Mg Tablet, Active 04/15/2018 [facility] Metformin Hcl 1,000 Mg Tablet, 1 Tab Oral Twice A Day Active 04/15/2018 [facility] Metoprolol Tartrate 50 Mg Tablet, 25 Mg Oral Daily Active 04/15/2018 [facility] JANUVIA 100 MG ORAL TABLET 1 tab By Mouth daily Active 1 tab By Mouth daily 03/26/2018 [facility] ATORVASTATIN CALCIUM Take one tablet By Mouth Every Day Active Take one tablet By Mouth Every Day 03/26/2018 [facility] DIVALPROEX SODIUM ER 500 MG ORAL TABLET EXTENDED RELEASE 24 HOUR Takes 3 tablets in the morning and take at bedtime Active Takes 3 tablets in the morning and take at bedtime 03/26/2018 [facility] METOPROLOL TARTRATE 1 by mouth twice a day Active 1 by mouth twice a day 03/26/2018 [facility] METFORMIN HCL 1 by mouth twice a day Active 1 by mouth twice a day 03/26/2018 [facility] LORATADINE 1 By Mouth once a day as needed for allergies Active 1 By Mouth once a day as needed for allergies 03/26/2018 [facility] PLAVIX 75 MG ORAL TABLET 1 by mouth every day Active 1 by mouth every day 03/26/2018 [facility] NORTRIPTYLINE HCL Take one tablet By Mouth take at bedtime Inactive Take one tablet By Mouth take at bedtime 03/26/2018 [facility] GLIPIZIDE Takes one tablet Twice a Day No Longer Active Takes one tablet Twice a Day 03/26/2018 Jesse Molina TRAZODONE HCL 1 by mouth every night No Longer Active 1 by mouth every night 03/26/2018 Jesse Molina PAROXETINE HCL Take 3 tablets By Mouth Every Morning No Longer Active Take 3 tablets By Mouth Every Morning 03/26/2018 [facility]ina[facility] GABAPENTIN take three tablets Every Morning and three tablets take at bedtime No Longer Active take three tablets Every Morning and three tablets take at bedtime 03/26/2018 Jesse Molina DIVALPROEX SODIUM ER 500 MG ORAL TABLET EXTENDED RELEASE 24 HOUR Takes 3 tablets in the morning and take at bedtime No Longer Active Takes 3 tablets in the morning and take at bedtime 03/26/2018 [facility] PRAZOSIN HCL Take 2 tablets By Mouth take at bedtime No Longer Active Take 2 tablets By Mouth take at bedtime 03/26/2018 Jesse Molina JANUVIA 100 MG ORAL TABLET 1 tab By Mouth daily No Longer Active 1 tab By Mouth daily 03/26/2018 [facility] LISINOPRIL 1 by mouth every day No Longer Active 1 by mouth every day 03/26/2018 Jesse Molina Imdur 30 mg, Route: PO, Drug form: ERTAB, QAM, Dosing Weight 112.6, kg, Start date: 12/02/16 9:00:00 CDT, Duration: 30 day, Stop date: 12/31/16 9:00:00 CDT No Longer Active 12/02/2016 [facility] atorvastatin 80 mg oral tablet 80 mg=1 tab, PO, Bedtime, # 30 tab, 0 Refill(s) Active 12/01/2016 [facility] Nitroglycerin 0.4 MG Sublingual Tablet 0.4 mg, 1 tab, Route: SL, Drug form: TAB, PRN, Dosing Weight 112.6, kg, PRN Chest Pain, Start date: 12/01/16 16:53:00 CDT, Duration: 30 day, Stop date: 12/31/16 16:52:00 CDTNotes: (Same as:Nitroquick, Nitrostat) "Do Not Crush" Sublingual tablet Inactive 12/01/2016 [facility] Tylenol 650 mg, 2 tab, Route: PO, Drug form: TAB, Q6H, Dosing Weight 112.6, kg, PRN Pain Score 1-3, Start date: 12/01/16 16:53:00 CDT, Duration: 30 day, Stop date: 12/31/16 16:52:00 CDTNotes: Do not exceed 4 gm/day. (Same as: Tylenol) Inactive 12/01/2016 [facility] pneumococcal capsular polysaccharide type 1 vaccine / pneumococcal capsular polysaccharide type 10A vaccine / pneumococcal capsular polysaccharide type 11A vaccine / pneumococcal capsular polysaccharide type 12F vaccine / pneumococcal capsular polysacchar 0.5 mL, Route: IM, Drug Form: INJ, Daily, Start date: 12/01/16 9:00:00 CDT, Duration: 1 doses or times, Stop date: 12/01/16 9:00:00 CDTNotes: (Same as: Pneumovax 23) Refrigerate Inactive 12/01/2016 [facility] Plavix 75 mg, 1 tab, Route: PO, Drug form: TAB, Daily, Dosing Weight 112.6, kg, Start date: 12/01/16 9:00:00 CDT, Duration: 30 day, Stop date: 12/30/16 9:00:00 CDTNotes: (Same As: Plavix) Inactive 12/01/2016 [facility] metoprolol extended release 25 mg, 1 tab, Route: PO, Drug form: ERTAB, Daily, Start date: 12/01/16 9:00:00 CDT, Duration: 30 day, Stop date: 12/30/16 9:00:00 CDTNotes: (Same as: Toprol XL) Do Not Crush Inactive 12/01/2016 [facility] Lisinopril 10 mg, 1 tab, Route: PO, Drug form: TAB, Daily, Dosing Weight 112.6, kg, Start date: 12/01/16 9:00:00 CDT, Duration: 30 day, Stop date: 12/30/16 9:00:00 CDTNotes: (Same as: Prinivil, Zestril) Inactive 12/01/2016 [facility] Aspirin 81 MG Chewable Tablet 81 mg, 1 tab, Route: PO, Drug form: CHEWTAB, Daily, Dosing Weight 112.6, kg, Start date: 12/01/16 9:00:00 CDT, Duration: 30 day, Stop date: 12/30/16 9:00:00 CDTNotes: Take with food. Inactive 12/01/2016 [facility] atorvastatin 80 mg, 1 tab, Route: PO, Drug form: TAB, Bedtime, Dosing Weight 112.6, kg, Start date: 11/30/16 21:00:00 CDT, Duration: 30 day, Stop date: 12/29/16 21:00:00 CDTNotes: Same as Lipitor No Longer Active 12/01/2016 [facility] Nortriptyline 75 mg, 3 cap, Route: PO, Drug form: CAP, Daily, Dosing Weight 112.6, kg, Start date: 11/30/16 21:00:00 CDT, Duration: 30 day, Stop date: 12/30/16 9:00:00 CDTNotes: (Same as:Pamelor, Aventyl) No Longer Active 12/01/2016 [facility] Tylenol 650 mg, 20.3 mL, Route: PO, Drug form: LIQ, ONCE, Dosing Weight 112.6, kg, Start date: 11/30/16 19:04:00 CDT, Stop date: 11/30/16 19:04:00 CDTNotes: Max [id number]/day (4 gm/day). (Same as: Tylenol) Inactive 12/01/2016 [facility] Lexapro 10 mg, 1 tab, Route: PO, Drug form: TAB, BID, Dosing Weight 112.6, kg, Start date: 11/30/16 17:00:00 CDT, Duration: 30 day, Stop date: 12/30/16 9:00:00 CDTNotes: (Same as: Lexapro) No Longer Active 11/30/2016 [facility] Nitroglycerin 100 mg, 250 mL, Rate: Titrate, Start Dose: 0.25 microgram/kg/min, Titration: 0.2 microgram/kg/min every 5 minutes, Goal(s): Chest pain and SBP between 100 - 150 mmHg, Max Dose: 3 microgram/kg/min, Route: IV, Dosing Weight 112.6 kg, Total Volume: 250,...Notes: (Same as:Tridil) Final conc=0.4 mg/ml. Premix bottle. No Longer Active 11/30/2016 [facility] Morphine 4 mg, 1 mL, Route: IVP, Drug form: INJ, Q6H, Dosing Weight 112.6, kg, PRN Pain Score 7-10, Start date: 11/30/16 15:10:00 CDT, Duration: 30 day, Stop date: 12/30/16 15:09:00 CDTNotes: (Same as:MORPhine Sulfate) No Longer Active 11/30/2016 [facility] Plavix 300 mg, 1 tab, Route: PO, Drug form: TAB, ONCE, Dosing Weight 112.6, kg, Start date: 11/30/16 14:31:00 CDT, Duration: 1 doses or times, Stop date: 11/30/16 14:31:00 CDTNotes: ( Same as: Plavix) Inactive 11/30/2016 [facility] Aspirin 325 mg, Route: PO, ONCE, Dosing Weight 112.6, kg, Start date: 11/30/16 14:22:00 CDT, Stop date: 11/30/16 14:22:00 CDT Inactive 11/30/2016 [facility] Plavix 300 mg, Route: PO, Drug form: TAB, ONCE, Dosing Weight 112.6, kg, Start date: 11/30/16 14:21:00 CDT, Duration: 1 doses or times, Stop date: 11/30/16 14:21:00 CDT Inactive 11/30/2016 [facility] heparin additive 25,000 unit [12 unit/kg/hr] + Premix Diluent Dextrose 5% 500 mL 500 mL, Rate: 21.98 ml/hr, Infuse over: 22.7 hr, Route: IV, Dosing Weight 91.6 kg, Total Volume: 500 mL, Start date: 11/30/16 13:59:00 CDT, Duration: 30 day, Stop date: 12/30/16 13:58:00 CDT No Longer Active 11/30/2016 [facility] Heparin 60 unit/kg Bolus (Heparin Dosing Weight) Route: IVP, PRN, 4,000 unit, 4 mL, Drug form: INJ, PRN, Heparin Protocol, Start date: 11/30/16 13:59:00 CDT Stop date: 12/30/16 13:58:00 CDT, 30 day No Longer Active 11/30/2016 [facility] Heparin 30 unit/kg Bolus (Heparin Dosing Weight) Route: IVP, PRN, 2,700 unit, 2.7 mL, Drug form: INJ, PRN, Heparin Protocol, Start date: 11/30/16 13:59:00 CDT Stop date: 12/30/16 13:58:00 CDT, 30 day No Longer Active 11/30/2016 [facility] Heparin - one time bolus for ACS 4,000 unit, 4 mL, Route: IVP, Drug form: INJ, ONCE, Dosing Weight 112.6, kg, Priority: STAT, Start date: 11/30/16 13:59:00 CDT, Stop date: 11/30/16 13:59:00 CDT Inactive 11/30/2016 [facility] Aspirin 81 MG Chewable Tablet 81 mg=1 tab, PO, Daily, tab, 0 Refill(s) Active 11/30/2016 [facility] Escitalopram 10 MG Oral Tablet [Lexapro] 10 mg=1 tab, PO, BID, 0 Refill(s) Active 11/30/2016 [facility] nortriptyline 75 mg oral capsule 75 mg=1 cap, PO, Daily, # 90 cap, 0 Refill(s) Active 11/30/2016 [facility] lisinopril 10 mg oral tablet 10 mg=1 tab, PO, Daily, # 30 tab, 0 Refill(s) Active 11/30/2016 [facility] metoprolol extended release 25 mg, PO, Daily, 0 Refill(s) Active 11/30/2016 [facility] Acetaminophen With Codeine (Acetaminophen-Cod #4 Tablet) 1 Each Tablet Three Times A Day Active [facility] Acetaminophen/Codeine Phosphate (Tylenol # 3*) 1 Ea Tab Every 6 Hours Active [facility] Atorvastatin Calcium 40 Mg Tablet Bedtime Active [facility] Clopidogrel Bisulfate (Clopidogrel) 75 Mg Tablet Daily Active [facility] Gabapentin 300 Mg Capsule Three Times A Day Active am, noon and bedtime [facility] Hydrocodone Bit/Acetaminophen (Hydrocodon-Acetaminophn 10-325) 1 Each Tablet Every 6 Hours Active [facility] Lisinopril 10 Mg Tablet Daily Active [facility] Metformin Hcl 500 Mg Tablet Twice A Day Active [facility] Metoprolol Tartrate (Lopressor) 25 Mg Tab Bedtime Active Metoprolol ER 25mg PO QHS [facility] Nortriptyline Hcl 50 Mg Capsule Bedtime Active [facility] Paroxetine Hcl 30 Mg Tablet Before Breakfast Active [facility] Prazosin Hcl 2 Mg Capsule Bedtime Active [facility] Trazodone Hcl 100 Mg Tablet Bedtime Active [facility] Aspirin 81 Mg Tab.chew Daily Active [facility] Atorvastatin Calcium 80 Mg Tablet Daily Active [facility] Diazepam 10 Mg Tablet Daily as needed for Anxiety Active [facility] Doxazosin Mesylate 1 Mg Tablet Twice A Day Active [facility] Doxepin Hcl 25 Mg Capsule Bedtime Active [facility] Glipizide 10 Mg Tablet Twice A Day Active [facility] Metoprolol Succinate 25 Mg Tab.er.24h Daily Active [facility] Metoprolol Tartrate 50 Mg Tablet Twice A Day Active [facility] Nitroglycerin 0.4 Mg Tab.subl Every 5 Minutes as needed for Chest Pain Active X3 DOSES [facility] Nortriptyline Hcl 25 Mg Capsule Bedtime Active [facility] Sitagliptin Phosphate (Januvia) 50 Mg Tablet Daily Active [facility] Tiagabine Hcl (Gabitril) 4 Mg Tablet Twice A Day Active [facility] Trazodone Hcl 300 Mg Tablet Daily Active [facility] DIAZEPAM TAKE 1/2 TO 1 TABLET BY MOUTH DAILY NEEDED FOR ANXIETY Active TAKE 1/2 TO 1 TABLET BY MOUTH DAILY NEEDED FOR ANXIETY [facility] Allergies, Adverse Reactions, Alerts Substance Category Reaction Severity Reaction type Status Date Reported Comments Source MEDROL DOSE PACK drug allergy 02/18/2018 [facility] PENICILLIN drug allergy 02/18/2018 [facility] TORADOL drug allergy 02/18/2018 [facility] Penicillin Severe Allergy to Substance Active 04/14/2018 [facility] Methylprednisolone Unknown Allergy to Substance Active 04/14/2018 [facility] Ketorolac Unknown Allergy to Substance Active 04/14/2018 [facility] TYLENOL WITH CODEINE #3 drug allergy Hives 07/14/2018 [facility] CEFDINIR drug allergy - Generalized itching that resolved with Benadryl. 07/23/2018 [facility] penicillins Assertion Drug allergy Active [facility] Toradol Assertion Drug allergy Active [facility] Immunizations Immunization Date Given Site Status Last Updated Comments Source pneumococcal 23-valent vaccine 12/01/2016 Not Given [facility] Results Order Name Results Value Reference Range Date Interpretation Comments Source blood glucose, fasting 177 mg/dL 09/09/2018 [facility] blood glucose, random 202 mg/dL 08/25/2018 [facility] blood glucose, random 202 mg/dL 08/25/2018 [facility] benzodiazepine screen, urine Positive Ixzrrc=745 07/23/2018 [facility] amphetamine screen, urine Negative Adrhtg=[id number] 07/23/2018 [facility] cannabinoid screen, urine Negative Cutoff=50 07/23/2018 [facility] phencyclidine screen, urine Negative Cutoff=25 07/23/2018 [facility] cocaine, urine Negative Jxyyom=079 07/23/2018 [facility] cocaine, urine Negative Mjlvfv=865 07/23/2018 [facility] opiates, urine, semiquantitative See Final Results Ajernv=070 07/23/2018 [facility] barbiturates screen, urine Negative Syivoh=241 07/23/2018 [facility] opiates, urine, semiquantitative See Final Results Wabmjy=[id number] 07/23/2018 [facility] blood glucose, random 233 mg/dL 07/19/2018 [facility] hemoglobin A1C, blood, as % of total hemoglobin 9.3 % 07/14/2018 [facility] hemoglobin A1C, blood, as % of total hemoglobin 9.3 % 07/14/2018 [facility] blood glucose, random 244 mg/dL 06/15/2018 [facility] Serum or plasma creatine kinase MB measurement (mass/volume) Serum or plasma creatine kinase MB measurement (mass/volume) 0.40 0 - 5.0 05/06/2018 [facility] Serum or plasma creatine kinase measurement (enzymatic activity/volume) Serum or plasma creatine kinase measurement (enzymatic activity/volume) 58 30 - 200 05/06/2018 [facility] Troponin I measurement by highly sensitive enzyme immunoassay Troponin I measurement by highly sensitive enzyme immunoassay 0.003 0 - 0.300 05/06/2018 [facility] Automated blood basophil count (count/volume) Automated blood basophil count (count/volume) 0.0 0.0 - 0.1 05/06/2018 [facility] Automated blood basophil count as percentage of total leukocytes Automated blood basophil count as percentage of total leukocytes 0.3 0.0 - 1.0 05/06/2018 [facility] Automated blood eosinophil count Automated blood eosinophil count 0.1 0.0 - 0.4 05/06/2018 [facility] Automated blood eosinophil count as percentage of total leukocytes Automated blood eosinophil count as percentage of total leukocytes 0.7 0.0 - 6.0 05/06/2018 [facility] Automated blood hematocrit (volume fraction) Automated blood hematocrit (volume fraction) 33.9 38.2 - 49.6 05/06/2018 [facility] Automated blood lymphocyte count as percentage ot total leukocytes Automated blood lymphocyte count as percentage ot total leukocytes 20.4 18.0 - 39.1 05/06/2018 [facility] Automated blood monocyte count as percentage of total leukocytes Automated blood monocyte count as percentage of total leukocytes 6.0 4.4 - 11.3 05/06/2018 [facility] Automated blood neutrophil count Automated blood neutrophil count 5.0 2.1 - 6.9 05/06/2018 [facility] Automated blood platelet count (count/volume) Automated blood platelet count (count/volume) 154 140 - 360 05/06/2018 [facility] Automated blood segmented neutrophil count as percentage of total leukocytes Automated blood segmented neutrophil count as percentage of total leukocytes 72.2 38.7 - 80.0 05/06/2018 [facility] Automated erythrocyte mean corpuscular hemoglobin (mass per erythrocyte) Automated erythrocyte mean corpuscular hemoglobin (mass per erythrocyte) 32.1 28 - 32 05/06/2018 [facility] Automated erythrocyte mean corpuscular hemoglobin concentration measurement (mass/volume) Automated erythrocyte mean corpuscular hemoglobin concentration measurement (mass/volume) 34.5 31 - 35 05/06/2018 [facility] Automated erythrocyte mean corpuscular volume Automated erythrocyte mean corpuscular volume 92.9 81 - 99 05/06/2018 [facility] Blood erythrocytes automated count (number/volume) Blood erythrocytes automated count (number/volume) 3.65 4.3 - 5.7 05/06/2018 [facility] Blood hemoglobin measurement (moles/volume) Blood hemoglobin measurement (moles/volume) 11.7 14.0 - 18.0 05/06/2018 [facility] Blood leukocytes automated count (number/volume) Blood leukocytes automated count (number/volume) 6.86 4.8 - 10.8 05/06/2018 [facility] Blood lymphocytes count (number/volume) Blood lymphocytes count (number/volume) 1.4 1.0 - 3.2 05/06/2018 [facility] Blood monocytes automated count (number/volume) Blood monocytes automated count (number/volume) 0.4 0.2 - 0.8 05/06/2018 [facility] Estimated glomerular filtration rate (GFR) determination Estimated glomerular filtration rate (GFR) determination null 60 05/06/2018 [facility] Glucose measurement Glucose measurement 251 74 - 118 05/06/2018 [facility] Plasma globulin measurement (mass/volume) Plasma globulin measurement (mass/volume) 3.0 2.3 - 3.5 05/06/2018 [facility] Serum or plasma alanine aminotransferase measurement (enzymatic activity/volume) Serum or plasma alanine aminotransferase measurement (enzymatic activity/volume) 36 0 - 55 05/06/2018 [facility] Serum or plasma albumin measurement (mass/volume) Serum or plasma albumin measurement (mass/volume) 3.6 3.5 - 5.0 05/06/2018 [facility] Serum or plasma albumin/globulin mass ratio Serum or plasma albumin/globulin mass ratio 1.2 0.8 - 2.0 05/06/2018 [facility] Serum or plasma alkaline phosphatase measurement (enzymatic activity/volume) Serum or plasma alkaline phosphatase measurement (enzymatic activity/volume) 72 40 - 150 05/06/2018 [facility] Serum or plasma anion gap Serum or plasma anion gap 18.0 8 - 16 05/06/2018 [facility] Serum or plasma calcium measurement (mass/volume) Serum or plasma calcium measurement (mass/volume) 9.5 8.4 - 10.2 05/06/2018 [facility] Serum or plasma carbon dioxide, total measurement (moles/volume) Serum or plasma carbon dioxide, total measurement (moles/volume) 21 22 - 29 05/06/2018 [facility] Serum or plasma chloride measurement (moles/volume) Serum or plasma chloride measurement (moles/volume) 100 98 - 107 05/06/2018 [facility] Serum or plasma creatinine measurement (mass/volume) Serum or plasma creatinine measurement (mass/volume) 1.16 0.72 - 1.25 05/06/2018 [facility] Serum or plasma potassium measurement (moles/volume) Serum or plasma potassium measurement (moles/volume) 4.0 3.5 - 5.1 05/06/2018 [facility] Serum or plasma protein measurement (mass/volume) Serum or plasma protein measurement (mass/volume) 6.6 6.5 - 8.1 05/06/2018 [facility] Serum or plasma sodium measurement (moles/volume) Serum or plasma sodium measurement (moles/volume) 135 136 - 145 05/06/2018 [facility] Serum or plasma total bilirubin measurement (mass/volume) Serum or plasma total bilirubin measurement (mass/volume) 0.6 0.2 - 1.2 05/06/2018 [facility] Serum or plasma urea nitrogen measurement (mass/volume) Serum or plasma urea nitrogen measurement (mass/volume) 10 7 - 26 05/06/2018 [facility] Serum or plasma urea nitrogen/creatinine mass ratio Serum or plasma urea nitrogen/creatinine mass ratio 9 6 - 25 05/06/2018 [facility] Red Cell Distribution Width 13.2 11.7 - 14.4 05/06/2018 [facility] IM GRANULOCYTES % 0.4 0.0 - 1.0 05/06/2018 [facility] Absolute Immature Granulocyte (auto 0.03 0 - 0.1 05/06/2018 [facility] Aspartate Amino Transf (AST/SGOT) 27 5 - 34 05/06/2018 [facility] Automated urine sediment leukocyte count by microscopy (number/high power field) Automated urine sediment leukocyte count by microscopy (number/high power field) null 0 - 5 05/06/2018 [facility] Bacteria detection in urine sediment by light microscopy Bacteria detection in urine sediment by light microscopy NONE NONE 05/06/2018 [facility] Epithelial cells detection in urine sediment by light microscopy Epithelial cells detection in urine sediment by light microscopy NONE NONE 05/06/2018 [facility] Erythrocytes detection in urine sediment by light microscopy Erythrocytes detection in urine sediment by light microscopy null 0 - 5 05/06/2018 [facility] Mucus detection in urine sediment by light microscopy Mucus detection in urine sediment by light microscopy FEW RARE 05/06/2018 [facility] Specific gravity of Urine by Test strip Specific gravity of Urine by Test strip 1.005 1.010 - 1.025 05/06/2018 [facility] Urine clarity Urine clarity CLEAR CLEAR 05/06/2018 [facility] Urine color determination Urine color determination YELLOW YELLOW 05/06/2018 [facility] Urine erythrocytes detection Urine erythrocytes detection NEGATIVE NEGATIVE 05/06/2018 [facility] Urine glucose detection Urine glucose detection 3+ NEGATIVE 05/06/2018 [facility] Urine ketones detection by automated test strip Urine ketones detection by automated test strip NEGATIVE NEGATIVE 05/06/2018 [facility] Urine leukocyte esterase detection by dipstick Urine leukocyte esterase detection by dipstick NEGATIVE NEGATIVE 05/06/2018 [facility] Urine nitrite detection Urine nitrite detection NEGATIVE NEGATIVE 05/06/2018 [facility] Urine pH measurement by automated test strip Urine pH measurement by automated test strip 6 5 - 7 05/06/2018 [facility] Urine protein measurement by test strip (mass/volume) Urine protein measurement by test strip (mass/volume) NEGATIVE NEGATIVE 05/06/2018 [facility] Urine total bilirubin measurement (mass/volume) Urine total bilirubin measurement (mass/volume) NEGATIVE NEGATIVE 05/06/2018 [facility] Urine urobilinogen measurement by test strip (mass/volume) Urine urobilinogen measurement by test strip (mass/volume) 0.2 0.2 - 1 05/06/2018 [facility] Capillary blood glucose measurement by glucometer (mass/volume) Capillary blood glucose measurement by glucometer (mass/volume) 226 70 - 120 04/16/2018 [facility] Capillary blood glucose measurement by glucometer (mass/volume) Capillary blood glucose measurement by glucometer (mass/volume) 226 70 - 120 04/16/2018 [facility] Automated blood basophil count (count/volume) Automated blood basophil count (count/volume) 0.0 0.0 - 0.1 04/16/2018 [facility] Automated blood basophil count as percentage of total leukocytes Automated blood basophil count as percentage of total leukocytes 0.5 0.0 - 1.0 04/16/2018 [facility] Automated blood eosinophil count Automated blood eosinophil count 0.1 0.0 - 0.4 04/16/2018 [facility] Automated blood eosinophil count as percentage of total leukocytes Automated blood eosinophil count as percentage of total leukocytes 1.5 0.0 - 6.0 04/16/2018 [facility] Automated blood hematocrit (volume fraction) Automated blood hematocrit (volume fraction) 37.5 38.2 - 49.6 04/16/2018 [facility] Automated blood lymphocyte count as percentage ot total leukocytes Automated blood lymphocyte count as percentage ot total leukocytes 33.5 18.0 - 39.1 04/16/2018 [facility] Automated blood monocyte count as percentage of total leukocytes Automated blood monocyte count as percentage of total leukocytes 6.9 4.4 - 11.3 04/16/2018 [facility] Automated blood neutrophil count Automated blood neutrophil count 3.4 2.1 - 6.9 04/16/2018 [facility] Automated blood platelet count (count/volume) Automated blood platelet count (count/volume) 182 140 - 360 04/16/2018 [facility] Automated blood segmented neutrophil count as percentage of total leukocytes Automated blood segmented neutrophil count as percentage of total leukocytes 57.3 38.7 - 80.0 04/16/2018 [facility] Automated erythrocyte mean corpuscular hemoglobin (mass per erythrocyte) Automated erythrocyte mean corpuscular hemoglobin (mass per erythrocyte) 32.1 28 - 32 04/16/2018 [facility] Automated erythrocyte mean corpuscular hemoglobin concentration measurement (mass/volume) Automated erythrocyte mean corpuscular hemoglobin concentration measurement (mass/volume) 34.1 31 - 35 04/16/2018 [facility] Automated erythrocyte mean corpuscular volume Automated erythrocyte mean corpuscular volume 94.0 81 - 99 04/16/2018 [facility] Blood erythrocytes automated count (number/volume) Blood erythrocytes automated count (number/volume) 3.99 4.3 - 5.7 04/16/2018 [facility] Blood hemoglobin measurement (moles/volume) Blood hemoglobin measurement (moles/volume) 12.8 14.0 - 18.0 04/16/2018 [facility] Blood leukocytes automated count (number/volume) Blood leukocytes automated count (number/volume) 5.94 4.8 - 10.8 04/16/2018 [facility] Blood lymphocytes count (number/volume) Blood lymphocytes count (number/volume) 2.0 1.0 - 3.2 04/16/2018 [facility] Blood monocytes automated count (number/volume) Blood monocytes automated count (number/volume) 0.4 0.2 - 0.8 04/16/2018 [facility] Estimated glomerular filtration rate (GFR) determination Estimated glomerular filtration rate (GFR) determination null 60 04/16/2018 [facility] Glucose measurement Glucose measurement 205 74 - 118 04/16/2018 [facility] Phosphorus measurement Phosphorus measurement 4.7 2.3 - 4.7 04/16/2018 [facility] Phosphorus measurement Phosphorus measurement 4.7 2.3 - 4.7 04/16/2018 [facility] Plasma globulin measurement (mass/volume) Plasma globulin measurement (mass/volume) 3.1 2.3 - 3.5 04/16/2018 [facility] Serum or plasma alanine aminotransferase measurement (enzymatic activity/volume) Serum or plasma alanine aminotransferase measurement (enzymatic activity/volume) 42 0 - 55 04/16/2018 [facility] Serum or plasma albumin measurement (mass/volume) Serum or plasma albumin measurement (mass/volume) 3.5 3.5 - 5.0 04/16/2018 [facility] Serum or plasma albumin/globulin mass ratio Serum or plasma albumin/globulin mass ratio 1.1 0.8 - 2.0 04/16/2018 [facility] Serum or plasma alkaline phosphatase measurement (enzymatic activity/volume) Serum or plasma alkaline phosphatase measurement (enzymatic activity/volume) 52 40 - 150 04/16/2018 [facility] Serum or plasma anion gap Serum or plasma anion gap 15.4 8 - 16 04/16/2018 [facility] Serum or plasma calcium measurement (mass/volume) Serum or plasma calcium measurement (mass/volume) 9.7 8.4 - 10.2 04/16/2018 [facility] Serum or plasma carbon dioxide, total measurement (moles/volume) Serum or plasma carbon dioxide, total measurement (moles/volume) 25 22 - 29 04/16/2018 [facility] Serum or plasma chloride measurement (moles/volume) Serum or plasma chloride measurement (moles/volume) 101 98 - 107 04/16/2018 [facility] Serum or plasma creatinine measurement (mass/volume) Serum or plasma creatinine measurement (mass/volume) 1.08 0.72 - 1.25 04/16/2018 [facility] Serum or plasma magnesium measurement (mass/volume) Serum or plasma magnesium measurement (mass/volume) 2.2 1.3 - 2.1 04/16/2018 [facility] Serum or plasma magnesium measurement (mass/volume) Serum or plasma magnesium measurement (mass/volume) 2.2 1.3 - 2.1 04/16/2018 [facility] Serum or plasma potassium measurement (moles/volume) Serum or plasma potassium measurement (moles/volume) 4.4 3.5 - 5.1 04/16/2018 [facility] Serum or plasma protein measurement (mass/volume) Serum or plasma protein measurement (mass/volume) 6.6 6.5 - 8.1 04/16/2018 [facility] Serum or plasma sodium measurement (moles/volume) Serum or plasma sodium measurement (moles/volume) 137 136 - 145 04/16/2018 [facility] Serum or plasma thyrotropin measurement by detection limit <=0.005 miu/l (units/volume) Serum or plasma thyrotropin measurement by detection limit <=0.005 miu/l (units/volume) 0.423 0.350 - 4.940 04/16/2018 [facility] Serum or plasma thyrotropin measurement by detection limit <=0.005 miu/l (units/volume) Serum or plasma thyrotropin measurement by detection limit <=0.005 miu/l (units/volume) 0.423 0.350 - 4.940 04/16/2018 [facility] Serum or plasma total bilirubin measurement (mass/volume) Serum or plasma total bilirubin measurement (mass/volume) 0.4 0.2 - 1.2 04/16/2018 [facility] Serum or plasma urea nitrogen measurement (mass/volume) Serum or plasma urea nitrogen measurement (mass/volume) 13 7 - 26 04/16/2018 [facility] Serum or plasma urea nitrogen/creatinine mass ratio Serum or plasma urea nitrogen/creatinine mass ratio 12 6 - 25 04/16/2018 [facility] Red Cell Distribution Width 13.5 11.7 - 14.4 04/16/2018 [facility] IM GRANULOCYTES % 0.3 0.0 - 1.0 04/16/2018 [facility] Absolute Immature Granulocyte (auto 0.02 0 - 0.1 04/16/2018 [facility] Hemoglobin A1c Percent 7.0 4.0 - 7.0 04/16/2018 [facility] Aspartate Amino Transf (AST/SGOT) 22 5 - 34 04/16/2018 [facility] Hemoglobin A1c Percent 7.0 4.0 - 7.0 04/16/2018 [facility] sodium, serum 134 mmol/L 134 - 144 04/16/2018 [facility] thyroid stimulating hormone, serum 0.989 u[iU]/mL 0.450 - 4.500 04/16/2018 [facility] thyroid stimulating hormone, serum 0.989 u[iU]/mL 0.450 - 4.500 04/16/2018 [facility] carbon dioxide, venous blood 22 mmol/L 20 - 29 04/16/2018 [facility] very low density lipoproteins 60 mg/dL 5 - 40 04/16/2018 [facility] triglyceride, serum, fasting 298 mg/dL 0 - 149 04/16/2018 [facility] carbon dioxide, venous blood 22 mmol/L 20 - 29 04/16/2018 [facility] urea nitrogen, blood 15 mg/dL 6 - 24 04/16/2018 [facility] chloride, serum 97 mmol/L 96 - 106 04/16/2018 [facility] triglyceride, serum, fasting 298 mg/dL 0 - 149 04/16/2018 [facility] calcium, serum 10.3 mg/dL 8.7 - 10.2 04/16/2018 [facility] urea nitrogen, blood 15 mg/dL 6 - 24 04/16/2018 [facility] alanine aminotransferase (SGPT), serum 50 U/L 0 - 44 04/16/2018 [facility] protein, total, serum 7.2 g/dL 6.0 - 8.5 04/16/2018 [facility] protein, total, serum 7.2 g/dL 6.0 - 8.5 04/16/2018 [facility] alkaline phosphatase, serum 67 U/L 39 - 117 04/16/2018 [facility] LDL cholesterol, serum 89 mg/dL 0 - 99 04/16/2018 [facility] urea nitrogen/creatinine ratio, serum 14 9 - 20 04/16/2018 [facility] albumin/globulin ratio, serum 1.9 1.2 - 2.2 04/16/2018 [facility] creatinine, serum 1.06 mg/dL 0.76 - 1.27 04/16/2018 [facility] HDL cholesterol, serum 53 mg/dL >39 04/16/2018 [facility] HDL cholesterol, serum 53 mg/dL >39 04/16/2018 [facility] eGFR if 97 mL/min/1.73m2 >59 04/16/2018 [facility] globulin, serum 2.5 1.5 - 4.5 04/16/2018 [facility] creatinine, serum 1.06 mg/dL 0.76 - 1.27 04/16/2018 [facility] Estimated Glomerular Filtration Rate (calc) 84 mL/min/1.73m2 >59 04/16/2018 [facility] thyroxine, serum, free 1.16 ng/dL 0.82 - 1.77 04/16/2018 [facility] albumin/globulin ratio, serum 1.9 1.2 - 2.2 04/16/2018 [facility] cholesterol, serum 202 mg/dL 100 - 199 04/16/2018 [facility] aspartate aminotransferase (SGOT), serum 32 U/L 0 - 40 04/16/2018 [facility] aspartate aminotransferase (SGOT), serum 32 U/L 0 - 40 04/16/2018 [facility] potassium, serum 4.6 mmol/L 3.5 - 5.2 04/16/2018 [facility] bilirubin, serum, total 0.3 mg/dL 0.0 - 1.2 04/16/2018 [facility] albumin, serum 4.7 g/dL 3.5 - 5.5 04/16/2018 [facility] Serum or plasma creatine kinase MB measurement (mass/volume) Serum or plasma creatine kinase MB measurement (mass/volume) 0.40 0 - 5.0 04/15/2018 [facility] Serum or plasma creatine kinase measurement (enzymatic activity/volume) Serum or plasma creatine kinase measurement (enzymatic activity/volume) 35 30 - 200 04/15/2018 [facility] Troponin I measurement by highly sensitive enzyme immunoassay Troponin I measurement by highly sensitive enzyme immunoassay null 0 - 0.300 04/15/2018 [facility] Automated urine sediment leukocyte count by microscopy (number/high power field) Automated urine sediment leukocyte count by microscopy (number/high power field) NONE 0 - 5 04/14/2018 [facility] Bacteria detection in urine sediment by light microscopy Bacteria detection in urine sediment by light microscopy NONE NONE 04/14/2018 [facility] Barbiturates screen, urine Barbiturates screen, urine NEGATIVE NEGATIVE 04/14/2018 [facility] Barbiturates screen, urine Barbiturates screen, urine NEGATIVE NEGATIVE 04/14/2018 [facility] Epithelial cells detection in urine sediment by light microscopy Epithelial cells detection in urine sediment by light microscopy NONE NONE 04/14/2018 [facility] Erythrocytes detection in urine sediment by light microscopy Erythrocytes detection in urine sediment by light microscopy NONE 0 - 5 04/14/2018 [facility] Specific gravity of Urine by Test strip Specific gravity of Urine by Test strip 1.005 1.010 - 1.025 04/14/2018 [facility] Urine amphetamines detection by screen method > 1000 ng/mL Urine amphetamines detection by screen method > 1000 ng/mL NEGATIVE NEGATIVE 04/14/2018 [facility] Urine amphetamines detection by screen method > 1000 ng/mL Urine amphetamines detection by screen method > 1000 ng/mL NEGATIVE NEGATIVE 04/14/2018 [facility] Urine benzodiazepines detection by screening method Urine benzodiazepines detection by screening method POSITIVE NEGATIVE 04/14/2018 [facility] Urine benzodiazepines detection by screening method Urine benzodiazepines detection by screening method POSITIVE NEGATIVE 04/14/2018 [facility] Urine cannabinoids detection by screening method Urine cannabinoids detection by screening method NEGATIVE NEGATIVE 04/14/2018 [facility] Urine cannabinoids detection by screening method Urine cannabinoids detection by screening method NEGATIVE NEGATIVE 04/14/2018 [facility] Urine clarity Urine clarity CLEAR CLEAR 04/14/2018 [facility] Urine cocaine measurement (mass/volume) Urine cocaine measurement (mass/volume) NEGATIVE NEGATIVE 04/14/2018 [facility] Urine cocaine measurement (mass/volume) Urine cocaine measurement (mass/volume) NEGATIVE NEGATIVE 04/14/2018 [facility] Urine color determination Urine color determination YELLOW YELLOW 04/14/2018 [facility] Urine erythrocytes detection Urine erythrocytes detection NEGATIVE NEGATIVE 04/14/2018 [facility] Urine glucose detection Urine glucose detection 3+ NEGATIVE 04/14/2018 [facility] Urine ketones detection by automated test strip Urine ketones detection by automated test strip NEGATIVE NEGATIVE 04/14/2018 [facility] Urine leukocyte esterase detection by dipstick Urine leukocyte esterase detection by dipstick NEGATIVE NEGATIVE 04/14/2018 [facility] Urine nitrite detection Urine nitrite detection NEGATIVE NEGATIVE 04/14/2018 [facility] Urine opiates screening test Urine opiates screening test POSITIVE NEGATIVE 04/14/2018 [facility] Urine opiates screening test Urine opiates screening test POSITIVE NEGATIVE 04/14/2018 [facility] Urine pH measurement by automated test strip Urine pH measurement by automated test strip 5 5 - 7 04/14/2018 [facility] Urine phencyclidine detection by screening method Urine phencyclidine detection by screening method NEGATIVE NEGATIVE 04/14/2018 [facility] Urine phencyclidine detection by screening method Urine phencyclidine detection by screening method NEGATIVE NEGATIVE 04/14/2018 [facility] Urine protein measurement by test strip (mass/volume) Urine protein measurement by test strip (mass/volume) NEGATIVE NEGATIVE 04/14/2018 [facility] Urine total bilirubin measurement (mass/volume) Urine total bilirubin measurement (mass/volume) NEGATIVE NEGATIVE 04/14/2018 [facility] Urine urobilinogen measurement by test strip (mass/volume) Urine urobilinogen measurement by test strip (mass/volume) 0.2 0.2 - 1 04/14/2018 [facility] Urine Methamphetamines Screen NEGATIVE NEGATIVE 04/14/2018 [facility] Urine Methamphetamines Screen NEGATIVE NEGATIVE 04/14/2018 [facility] Serum or plasma valproate measurement (mass/volume) Serum or plasma valproate measurement (mass/volume) 2 50 - 100 04/14/2018 [facility] Serum or plasma valproate measurement (mass/volume) Serum or plasma valproate measurement (mass/volume) 2 50 - 100 04/14/2018 [facility] Lactic Acid Level 47.2 4.5 - 19.8 04/14/2018 [facility] B-Type Natriuretic Peptide 10.2 0 - 100 04/14/2018 [facility] Lactic Acid Level 47.2 4.5 - 19.8 04/14/2018 [facility] B-Type Natriuretic Peptide 10.2 0 - 100 04/14/2018 [facility] 12 LEAD EKG 12 LEAD EKG FOR [facility] Test Date:2017-05-24 Pat Name: DAVID SAMUELS Department: : Gender: MTechnician: [id number] :1970 Requested By: Order Number:Reading MD: Nader Conrad M.D. Measurements IntervalsAxis Rate: 61 P:-10 MI: 180QRS:38 QRSD: 115T:30 QT: 404 QTc:409 Interpretive Statements SINUS RHYTHM INCOMPLETE RIGHT BUNDLE BRANCH BLOCK Electronically Signed On 05-25-17 05:56:28 CDT by Nader Conrad M.D. 05/25/2017 [facility] TROPONIN I POC Troponin POC 0.00 ng/mL 0 - 0.08 05/25/2017 [facility] BMP POC CO2 POC 29 mmol/L 21 - 32 05/25/2017 [facility] POC Chloride POC 100 mmol/L 98 - 107 05/25/2017 [facility] POC Potassium POC 5.0 mmol/L 3.5 - 5.1 05/25/2017 [facility] POC Sodium POC 137 mmol/L 136 - 145 05/25/2017 [facility] POC Glucose POC 138 mg/dL 74 - 106 05/25/2017 [facility] POC Urea Nitrogen POC 20 mg/dL 7 - 18 05/25/2017 [facility] POC Creatinine POC 1.4 mg/dL 0.6 - 1.3 05/25/2017 [facility] POC Calcium Ionized POC 1.22 mmol/L 1.15 - 1.29 05/25/2017 [facility] POC Hemoglobin POC 15.6 g/dL 14 - 18 05/25/2017 [facility] POC Hematocrit POC 46.0 % 40 - 54 05/25/2017 [facility] POC GFR, Estimated 55 mL/min/1.73 m2 05/25/2017 [facility] POC GFR, Estim, Afr-Am >60 mL/min/1.73 m2 05/25/2017 [facility] POC Lab Interpretation Abnormal 05/25/2017 [facility] POC CO2 POC 29 mmol/L 21 - 32 05/24/2017 [facility] POC Chloride POC 100 mmol/L 98 - 107 05/24/2017 [facility] POC Potassium POC 5.0 mmol/L 3.5 - 5.1 05/24/2017 [facility] POC Sodium POC 137 mmol/L 136 - 145 05/24/2017 [facility] POC Glucose POC 138 mg/dL 74 - 106 05/24/2017 [facility] POC Urea Nitrogen POC 20 mg/dL 7 - 18 05/24/2017 [facility] POC Creatinine POC 1.4 mg/dL 0.6 - 1.3 05/24/2017 [facility] POC Calcium Ionized POC 1.22 mmol/L 1.15 - 1.29 05/24/2017 [facility] POC Hemoglobin POC 15.6 g/dL 14 - 18 05/24/2017 [facility] POC Hematocrit POC 46.0 % 40 - 54 05/24/2017 [facility] POC GFR, Estimated 55 mL/min/1.73 m2 05/24/2017 [facility] POC GFR, Estim, Afr-Am >60 mL/min/1.73 m2 05/24/2017 [facility] BMP POC Lab Interpretation Abnormal 05/24/2017 [facility] TROPONIN I POC Troponin POC 0.00 ng/mL 0 - 0.08 05/24/2017 [facility] 12 LEAD EKG 12 LEAD EKG FOR P [facility] Test Date:2017-05-24 Pat Name: DAVID SAMUELS Department: : Gender: MTechnician: [id number] :1970 Requested By: Order Number:Reading MD: Nader Conrad M.D. Measurements IntervalsAxis Rate: 61 P:-10 MI: 180QRS:38 QRSD: 115T:30 QT: 404 QTc:409 Interpretive Statements SINUS RHYTHM INCOMPLETE RIGHT BUNDLE BRANCH BLOCK Electronically Signed On 05-25-17 05:56:28 CDT by Nader Conrad M.D. 05/24/2017 [facility] CHEM PANEL Magnesium Lvl 2.2 mg/dL 1.8 - 2.4 12/01/2016 [facility] CHEM PANEL eGFR 79 mL/min/1.73m2 12/01/2016 Result Comment: The eGFR is calculated using the CKD-EPI formula. In most young, healthy individuals the eGFR will be >90 mL/min/1.73m2. The eGFR declines with age. An eGFR of 60-89 may be normal in some populations, particularly the elderly, for whom the CKD-EPI formula has not been extensively validated. Use of the eGFR is not recommended in the following populations: Individuals with unstable creatinine concentrations, including patients and those with serious co-morbid conditions. Patients with extremes in muscle mass or diet. The data above are obtained from the National Kidney Disease Education Program (NKDEP) which additionally recommends that when the eGFR is used in patients with extremes of body mass index for purposes of drug dosing, the eGFR should be multiplied by the estimated BMI. [facility] CHEM PANEL Calcium Lvl 8.9 mg/dL 8.5 - 10.5 12/01/2016 [facility] CHEM PANEL CO2 25 meq/L 24 - 32 12/01/2016 [facility] CHEM PANEL Chloride Lvl 104 meq/L 95 - 109 12/01/2016 [facility] CHEM PANEL Sodium Lvl 139 meq/L 135 - 145 12/01/2016 [facility] CHEM PANEL Potassium Lvl 4.1 meq/L 3.5 - 5.1 12/01/2016 [facility] CHEM PANEL Glucose Lvl 85 mg/dL 70 - 99 12/01/2016 [facility] CHEM PANEL Creatinine Lvl 1.12 mg/dL 0.50 - 1.40 12/01/2016 [facility] CHEM PANEL BUN 15 mg/dL 7 - 22 12/01/2016 [facility] CHEM PANEL AGAP 14.1 meq/L 10.0 - 20.0 12/01/2016 [facility] HEMATOLOGY Eosinophils 0.6 % 0.0 - 4.0 12/01/2016 [facility] HEMATOLOGY Basophils 0.6 % 0.0 - 1.0 12/01/2016 [facility] HEMATOLOGY Monocytes # 0.6 K/CMM 0.0 - 0.8 12/01/2016 [facility] HEMATOLOGY Eosinophils # 0.1 K/CMM 0.0 - 0.5 12/01/2016 [facility] HEMATOLOGY Segs-Bands # 5.9 K/CMM 1.5 - 8.1 12/01/2016 [facility] HEMATOLOGY Lymphocytes # 2.4 K/CMM 1.0 - 5.5 12/01/2016 [facility] HEMATOLOGY Basophils # 0.1 K/CMM 0.0 - 0.2 12/01/2016 [facility] HEMATOLOGY Lymphocytes 27.0 % 20.0 - 40.0 12/01/2016 [facility] HEMATOLOGY Monocytes 6.3 % 2.0 - 12.0 12/01/2016 [facility] HEMATOLOGY Segs 65.5 % 45.0 - 75.0 12/01/2016 [facility] HEMATOLOGY MPV 6.9 fL 7.4 - 10.4 12/01/2016 [facility] HEMATOLOGY Platelet 209 K/CMM 133 - 450 12/01/2016 [facility] HEMATOLOGY MCHC 34.1 g/dL 32.0 - 36.0 12/01/2016 [facility] HEMATOLOGY RDW 13.7 % 11.5 - 14.5 12/01/2016 [facility] HEMATOLOGY WBC 9.0 K/CMM 3.7 - 10.4 12/01/2016 [facility] HEMATOLOGY MCH 31.5 pg 27.0 - 31.0 12/01/2016 [facility] HEMATOLOGY MCV 92.5 fL 80.0 - 94.0 12/01/2016 [facility] HEMATOLOGY Hct 43.3 % 42.0 - 54.0 12/01/2016 [facility] HEMATOLOGY Hgb 14.8 g/dL 14.0 - 18.0 12/01/2016 [facility] HEMATOLOGY RBC 4.68 M/CMM 4.70 - 6.10 12/01/2016 [facility] HEMATOLOGY PTT 45.0 s 22.9 - 35.8 12/01/2016 [facility] HEMATOLOGY INR 1.02 0.85 - 1.17 12/01/2016 [facility] HEMATOLOGY PT 13.6 s 12.0 - 14.7 12/01/2016 [facility] CARDIAC ENZYMES Troponin-I null 0.00 - 0.40 12/01/2016 [facility] CARDIAC ENZYMES Troponin-T null 0.000 - 0.100 12/01/2016 [facility] CARDIAC ENZYMES Total CK 51 unit/L 12 - 191 12/01/2016 [facility] HEMATOLOGY PTT 46.4 s 22.9 - 35.8 12/01/2016 [facility] CARDIAC ENZYMES Total CK 47 unit/L 12 - 191 11/30/2016 [facility] CARDIAC ENZYMES Troponin-I null 0.00 - 0.40 11/30/2016 [facility] CARDIAC ENZYMES Troponin-T null 0.000 - 0.100 11/30/2016 [facility] DRUG SCREEN U Amph Scr Negative *NA* (11/30/16 3:30 PM) Negative 11/30/2016 [facility] DRUG SCREEN U Noemi Scr Negative *NA* (11/30/16 3:30 PM) Negative 11/30/2016 [facility] DRUG SCREEN U Cannab Scr Negative *NA* (11/30/16 3:30 PM) Negative 11/30/2016 [facility] DRUG SCREEN U Phencyc Scr Negative *NA* (11/30/16 3:30 PM) Negative 11/30/2016 [facility] DRUG SCREEN U Opiate Scr Positive *ABN* (11/30/16 3:30 PM) Negative 11/30/2016 [facility] DRUG SCREEN U Benzodia Scr Negative *NA* (11/30/16 3:30 PM) Negative 11/30/2016 [facility] DRUG SCREEN U Cocaine Scr Negative *NA* (11/30/16 3:30 PM) Negative 11/30/2016 [facility] DRUG SCREEN UDS Note See Note (11/30/16 3:30 PM) 11/30/2016 [facility] HEMATOLOGY PT 13.3 s 12.0 - 14.7 11/30/2016 [facility] HEMATOLOGY INR 0.99 0.85 - 1.17 11/30/2016 [facility] HEMATOLOGY PTT 31.1 s 22.9 - 35.8 11/30/2016 [facility] CARDIAC ENZYMES Troponin-I null 0.00 - 0.40 11/30/2016 [facility] CARDIAC ENZYMES Total CK 48 unit/L 12 - 191 11/30/2016 [facility] CARDIAC ENZYMES Troponin-T null 0.000 - 0.100 11/30/2016 [facility] CHEM PANEL eGFR 73 mL/min/1.73m2 11/30/2016 Result Comment: The eGFR is calculated using the CKD-EPI formula. In most young, healthy individuals the eGFR will be >90 mL/min/1.73m2. The eGFR declines with age. An eGFR of 60-89 may be normal in some populations, particularly the elderly, for whom the CKD-EPI formula has not been extensively validated. Use of the eGFR is not recommended in the following populations: Individuals with unstable creatinine concentrations, including patients and those with serious co-morbid conditions. Patients with extremes in muscle mass or diet. The data above are obtained from the National Kidney Disease Education Program (NKDEP) which additionally recommends that when the eGFR is used in patients with extremes of body mass index for purposes of drug dosing, the eGFR should be multiplied by the estimated BMI. [facility] CHEM PANEL CO2 29 meq/L 24 - 32 11/30/2016 [facility] CHEM PANEL Calcium Lvl 9.3 mg/dL 8.5 - 10.5 11/30/2016 [facility] CHEM PANEL BUN 15 mg/dL 7 - 22 11/30/2016 [facility] CHEM PANEL Creatinine Lvl 1.19 mg/dL 0.50 - 1.40 11/30/2016 [facility] CHEM PANEL Glucose Lvl 100 mg/dL 70 - 99 11/30/2016 [facility] CHEM PANEL Chloride Lvl 102 meq/L 95 - 109 11/30/2016 [facility] CHEM PANEL Potassium Lvl 4.5 meq/L 3.5 - 5.1 11/30/2016 [facility] CHEM PANEL Sodium Lvl 140 meq/L 135 - 145 11/30/2016 [facility] CHEM PANEL AGAP 13.5 meq/L 10.0 - 20.0 11/30/2016 [facility] HEMATOLOGY RBC 4.73 M/CMM 4.70 - 6.10 11/30/2016 [facility] HEMATOLOGY Hgb 14.9 g/dL 14.0 - 18.0 11/30/2016 [facility] HEMATOLOGY WBC 9.0 K/CMM 3.7 - 10.4 11/30/2016 [facility] HEMATOLOGY MPV 6.9 fL 7.4 - 10.4 11/30/2016 [facility] HEMATOLOGY MCV 92.0 fL 80.0 - 94.0 11/30/2016 [facility] HEMATOLOGY Hct 43.5 % 42.0 - 54.0 11/30/2016 [facility] HEMATOLOGY MCH 31.6 pg 27.0 - 31.0 11/30/2016 [facility] HEMATOLOGY Platelet 213 K/CMM 133 - 450 11/30/2016 [facility] HEMATOLOGY MCHC 34.3 g/dL 32.0 - 36.0 11/30/2016 [facility] HEMATOLOGY RDW 13.7 % 11.5 - 14.5 11/30/2016 [facility] HEMATOLOGY Lymphocytes # 2.0 K/CMM 1.0 - 5.5 11/30/2016 [facility] HEMATOLOGY Monocytes # 0.5 K/CMM 0.0 - 0.8 11/30/2016 [facility] HEMATOLOGY Basophils 0.7 % 0.0 - 1.0 11/30/2016 [facility] HEMATOLOGY Segs-Bands # 6.4 K/CMM 1.5 - 8.1 11/30/2016 [facility] HEMATOLOGY Basophils # 0.1 K/CMM 0.0 - 0.2 11/30/2016 [facility] HEMATOLOGY Segs 71.4 % 45.0 - 75.0 11/30/2016 [facility] HEMATOLOGY Lymphocytes 21.8 % 20.0 - 40.0 11/30/2016 [facility] HEMATOLOGY Monocytes 5.8 % 2.0 - 12.0 11/30/2016 [facility] HEMATOLOGY Eosinophils 0.3 % 0.0 - 4.0 11/30/2016 [facility] Vital Signs Vital Sign Value Date Comments Source Diastolic (mm Hg) 79 09/09/2018 [facility] Systolic (mm Hg) 118 09/09/2018 [facility] Height 72 09/09/2018 [facility] Heart Rate 82 09/09/2018 [facility] Respitory Rate 19 09/09/2018 [facility] Temperature Oral (F) 98.0 F 09/09/2018 [facility] Weight 305.40 09/09/2018 [facility] Diastolic (mm Hg) 87 08/25/2018 [facility] Systolic (mm Hg) 119 08/25/2018 [facility] Height 72 08/25/2018 [facility] Heart Rate 96 08/25/2018 [facility] Respitory Rate 22 08/25/2018 [facility] Temperature Oral (F) 97.4 F 08/25/2018 [facility] Weight 302.20 08/25/2018 [facility] Diastolic (mm Hg) 92 08/19/2018 [facility] Systolic (mm Hg) 134 08/19/2018 [facility] Height 72 08/19/2018 [facility] Heart Rate 86 08/19/2018 [facility] Respitory Rate 21 08/19/2018 [facility] Temperature Oral (F) 97.8 F 08/19/2018 [facility] Weight 306 08/19/2018 [facility] Diastolic (mm Hg) 80 07/23/2018 [facility] Systolic (mm Hg) 118 07/23/2018 [facility] Height 72 07/23/2018 [facility] Heart Rate 80 07/23/2018 [facility] Respitory Rate 18 07/23/2018 [facility] Temperature Oral (F) 98.5 F 07/23/2018 [facility] Weight 308.40 07/23/2018 [facility] Diastolic (mm Hg) 76 07/22/2018 [facility] Systolic (mm Hg) 115 07/22/2018 [facility] Height 72 07/22/2018 [facility] Heart Rate 84 07/22/2018 [facility] Respitory Rate 16 07/22/2018 [facility] Temperature Oral (F) 98.1 F 07/22/2018 [facility] Weight 291 07/22/2018 [facility] Diastolic (mm Hg) 86 07/19/2018 [facility] Systolic (mm Hg) 119 07/19/2018 [facility] Height 72 07/19/2018 [facility] Heart Rate 103 07/19/2018 [facility] Respitory Rate 20 07/19/2018 [facility] Temperature Oral (F) 97.8 F 07/19/2018 [facility] Weight 300 07/19/2018 [facility] Diastolic (mm Hg) 80 07/14/2018 [facility] Systolic (mm Hg) 116 07/14/2018 [facility] Height 72 07/14/2018 [facility] Heart Rate 69 07/14/2018 [facility] Respitory Rate 18 07/14/2018 [facility] Temperature Oral (F) 97.8 F 07/14/2018 [facility] Weight 310 07/14/2018 [facility] Diastolic (mm Hg) 109 06/25/2018 [facility] Systolic (mm Hg) 173 06/25/2018 [facility] Height 72 06/25/2018 [facility] Heart Rate 111 06/25/2018 [facility] Weight 309 06/25/2018 [facility] Diastolic (mm Hg) 84 06/15/2018 [facility] Systolic (mm Hg) 124 06/15/2018 [facility] Height 72 06/15/2018 [facility] Heart Rate 104 06/15/2018 [facility] Respitory Rate 26 06/15/2018 [facility] Temperature Oral (F) 97.8 F 06/15/2018 [facility] Weight 308 06/15/2018 [facility] Diastolic (mm Hg) 87 05/28/2018 [facility] Systolic (mm Hg) 129 05/28/2018 [facility] Height 72 05/28/2018 [facility] Heart Rate 125 05/28/2018 [facility] Weight 312.80 05/28/2018 [facility] Diastolic (mm Hg) 92 04/23/2018 [facility] Systolic (mm Hg) 137 04/23/2018 [facility] Height 72 04/23/2018 [facility] Heart Rate 99 04/23/2018 [facility] Weight 312.50 04/23/2018 [facility] Temperature Oral (F) 98.2 F 04/23/2018 [facility] Diastolic (mm Hg) 92 04/16/2018 [facility] Systolic (mm Hg) 126 04/16/2018 [facility] Height 72 04/16/2018 [facility] Heart Rate 82 04/16/2018 [facility] Respitory Rate 17 04/16/2018 [facility] Temperature Oral (F) 98.8 F 04/16/2018 [facility] Weight 310.20 04/16/2018 [facility] Diastolic (mm Hg) 85 04/09/2018 [facility] Systolic (mm Hg) 137 04/09/2018 [facility] Height 72 04/09/2018 [facility] Heart Rate 94 04/09/2018 [facility] Respitory Rate 21 04/09/2018 [facility] Temperature Oral (F) 98.2 F 04/09/2018 [facility] Weight 318.60 04/09/2018 [facility] Diastolic (mm Hg) 77 03/26/2018 [facility] Systolic (mm Hg) 118 03/26/2018 [facility] Height 72 03/26/2018 [facility] Heart Rate 106 03/26/2018 [facility] Respitory Rate 24 03/26/2018 [facility] Temperature Oral (F) 98.5 F 03/26/2018 [facility] Weight 308.80 03/26/2018 [facility] Diastolic (mm Hg) 86 02/18/2018 [facility] Systolic (mm Hg) 127 02/18/2018 [facility] Height 72 02/18/2018 [facility] Heart Rate 73 02/18/2018 [facility] Respitory Rate 18 02/18/2018 [facility] Temperature Oral (F) 97.9 F 02/18/2018 [facility] Weight 315 02/18/2018 [facility] Systolic (mm Hg) 126 05/25/2017 [facility] Diastolic (mm Hg) 82 05/25/2017 [facility] Heart Rate 66 05/25/2017 [facility] Temperature Oral (F) 36.94 Muna 05/25/2017 [facility] Respitory Rate 18 05/25/2017 [facility] Temperature Oral (F) 98.2 F 12/01/2016 [facility] Respitory Rate 18 12/01/2016 [facility] Systolic (mm Hg) 129 12/01/2016 [facility] Diastolic (mm Hg) 75 12/01/2016 [facility] Systolic (mm Hg) 129 12/01/2016 [facility] Diastolic (mm Hg) 88 12/01/2016 [facility] Respitory Rate 20 12/01/2016 [facility] Respitory Rate 18 12/01/2016 [facility] Systolic (mm Hg) 99 12/01/2016 [facility] Diastolic (mm Hg) 67 12/01/2016 [facility] Temperature Oral (F) 97.9 F 12/01/2016 [facility] Temperature Oral (F) 97.1 F 12/01/2016 [facility] Height 182.88 cm 11/30/2016 [facility] BMI Calculated 33.67 11/30/2016 [facility] Weight 112.6 11/30/2016 [facility] Encounters Location Location Details Encounter Type Encounter Number Reason For Visit Attending Provider ADM Date DC Date Status Source [facility] Inpatient [id number] Parveen Johnson 11/30/2016 12/01/2016 [facility] BT Emergency [id number] 05/25/2017 05/25/2017 [facility] New Patient Detailed - 13168 [id number] Pepito Boyd MD 02/18/2018 [facility] Est Patient Exp Problem - 85401 [id number] Paula Clay MD 03/27/2018 [facility] Est Patient Exp Problem - 33240 [id number] Oscar Nielson MD (res) 04/09/2018 [facility] (obs) [id number] ERIC BRO MD 04/15/2018 04/16/2018 [facility] Est Patient Detailed - 07256 [id number] Paula Clay MD 04/18/2018 [facility] Est Patient Detailed - 95719 [id number] Lele Suárez MD 04/23/2018 [facility] [id number] MARGE GREER MD 05/06/2018 05/06/2018 [facility] Est Patient Exp Problem - 59909 [id number] Lele Suárez MD 05/28/2018 [facility] Est Patient Exp Problem - 77678 [id number] Juliann Worley MD (res) 06/15/2018 [facility] Est Patient Exp Problem - 01513 [id number] Lele Suárez MD 06/25/2018 [facility] Est Patient Exp Problem - 42657 [id number] Juliann Worley MD (res) 07/14/2018 [facility] Est Patient Exp Problem - 09697 [id number] Bandar Garcia MD R3 07/19/2018 [facility] Est Patient Exp Problem - 06282 [id number] Delicia Meraz MD (res) 07/22/2018 [facility] Est Patient Exp Problem - 49244 [id number] Lele Suárez MD 07/23/2018 [facility] Est Patient Exp Problem - 82336 [id number] Joe Mcmullen MD 07/23/2018 [facility] Est Patient Exp Problem - 41674 [id number] Lele Suárez MD 08/25/2018 [facility] Est Patient Detailed - 24860 [id number] Snehal Gutierrez MD 09/09/2018 [facility] Est Patient Exp Problem - 18400 [id number] Snehal Gutierrez MD 09/09/2018 [facility] Procedure Code Date Perfomer Comments Source Psychotherapy 45 (38-52*) min - 10211 (with patient and/or family member) 19905 08/19/2018 Robert ASSET LIABILITY ANALYST-S, COMMUNITY HEALTH DIRECTOR [facility] INTV Indiv - 85683 95053 07/26/2018 Tarik [id number] [facility] HEMOGLOBIN A1C - In House 61080 07/14/2018 Meir RUIZ (res) [facility] Diagnostic evaluation (no medical) - 37628 18844 07/14/2018 Robert CHARLESFT-S, COMMUNITY HEALTH DIRECTOR [facility] Glucose Stick 19826 06/16/2018 Meir RUIZ (res) [facility] evaluation with medical - 22112 29302 04/23/2018 Kamini RUIZ [facility] Magnetic resonance imaging of brain without contrast [id number] 04/15/[address] [facility] [address] angiography of chest [id number] 04/14/2018 [facility] Computed tomography of brain without radiopaque contrast [id number] 04/14/2018 [facility] Computed tomography angiography of abdomen and pelvis without then withcontrast [id number] 04/14/2018 [facility] BMP POC 53678 05/25/2017 Unknown [facility] TROPONIN I POC 31376 05/25/2017 Unknown [facility] 12 LEAD EKG 25785 05/25/2017 Rai [facility] Hernia repair [id number] [facility] Knee joint operation [id number] [facility] Wrist reconstruction [id number] [facility]
--- OUTSIDE RECORDS SUMMARY | 2018-09-20 13:36 | XMS REPORT ---
Author Author Admin, [place] Organization [facility] Address [address] [address] Phone Allergies, Adverse Reactions, Alerts Allergy Name Reaction Description Start Date Severity Status Provider CEFDINIR - Generalized itching that resolved with Benadryl. Moderate Active Joe Mcmullen MD TYLENOL WITH CODEINE #3 Hives Moderate Active Geovanna Payne MD MEDROL DOSE PACK Critical Active Pepito Boyd MD PENICILLIN Critical Active Pepito Boyd MD TORADOL Critical Active Pepito Boyd MD Conditions or Problems Problem Name Problem Code Onset Date Status Entry Date Provider Comment Standard Description Annotate Dermatitis due to drug reaction 693.0 Active Joe Mcmullen MD Dermatitis due to drugs and medicines taken internally Acute right otitis media 382.9 Active Thalia Jerome D.O. Unspecified otitis media Pain in right shoulder 719.41 Active Paula Clay MD Pain in joint involving shoulder region Chronic back pain 724.5 Active Juliann Worley MD (res) Backache, unspecified Syncope 780.2 Active Juliann Worley MD (res) Syncope and collapse Congestive heart failure 428.0 Active Lele Suárez MD Congestive heart failure, unspecified DEPRESSIVE DISORDER, MAJOR, RECURRENT EPISODE, UNSPECIFIED Active Lele Suárez MD Major depressive disorder, recurrent episode, unspecified degree Tachycardia 785.0 Active Lele Suárez MD Tachycardia, unspecified BMI 40.0-44.9 Active Fredrick Ron MD Body Mass Index 40.0-44.9, adult MORBID OBESITY Active Fredrick Ron MD Morbid obesity Dizziness 780.4 Active Fredrick Ron MD Dizziness and giddiness CAD (coronary artery disease) 414.00 Active Paula Clay MD Coronary atherosclerosis of unspecified type of vessel, mi'kmaq or graft Diabetes mellitus type II 250.00 Active Paula Clay MD Diabetes mellitus without mention of complication, type II or unspecified type, not stated as uncontrolled Diabetic neuropathy 250.60 Active Paula Clay MD Diabetes mellitus with neurological manifestations, type II or unspecified type, not stated as uncontrolled Generalized anxiety disorder 300.02 Active Paula Clay MD Generalized anxiety disorder Hyperlipidemia 272.4 Active Paula Clay MD Other and unspecified hyperlipidemia Hypertension 401.9 Active Paula Clay MD Unspecified essential hypertension Insomnia 780.52 Active Paula Clay MD Insomnia, unspecified 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 Active Paula Clay MD Other dysfunctions of sleep stages or arousal from sleep Panic attack 300.01 Active Paula Caly MD Panic disorder without agoraphobia PTSD 309.81 Active Paula Clay MD Posttraumatic stress disorder Restless leg syndrome 333.94 Active Paula Clay MD Restless legs syndrome (RLS) Seasonal allergies 477.9 Active Paula Clay MD Allergic rhinitis, cause unspecified Depression, chronic ICD-311 Inactive Lele Suárez MD Diabetes mellitus, type II ICD-250.00 Inactive Juliann Worley MD (res) Depression, chronic 311 Resolved Lele Suárez MD Depressive disorder, not elsewhere classified Diabetes mellitus, type II 250.00 Resolved Juliann Worley MD (res) Diabetes mellitus without mention of complication, type II or unspecified type, not stated as uncontrolled Medication List Medication Instructions Start Date Stop Date Generic Name NDC Status Provider Patient Instruction AZITHROMYCIN 250 MG ORAL TABLET 2 tablets by mouth on day one then one tablet by mouth each day for a total of 5 days AZITHROMYCIN 29927910916 Active Joe Mcmullen MD Active BD PEN NEEDLE LUZ U/F 32G X 4 MM Please use new needle for pen INSULIN PEN NEEDLE 78292018970 Active Delicia Meraz MD (res) Active TYLENOL WITH CODEINE #3 300-30 MG ORAL TABLET 1 by mouth every 8 hours as needed ACETAMINOPHEN-CODEINE 77652623187 Active aBndar Garcia MD R3 Active VIIBRYD 20 MG ORAL TABLET Take 1 tablet by mouth daily. VILAZODONE HCL 00731109408 Active Lele Suárez MD Active ASPIRIN 81 MG ORAL TABLET DELAYED RELEASE 1 by mouth every day ASPIRIN 94879590982 Active Juliann Worley MD (res) Active MECLIZINE HCL 25 MG ORAL TABLET 1 by mouth 3 times a day as needed for dizziness MECLIZINE HCL 39427408862 Active Juliann Worley MD (res) Active DOXEPIN HCL 25 MG ORAL CAPSULE Take 1-2 capsules at bedtime as needed for sleep. DOXEPIN HCL 72003644462 Active Lele Suárez MD Active PAXIL 30 MG ORAL TABLET Take 2 tablets by mouth daily. PAROXETINE HCL 95045934786 Active Lele Suárez MD Active ATORVASTATIN CALCIUM 80 MG ORAL TABLET Take one tablet By Mouth Every Day ATORVASTATIN CALCIUM 17558979193 Active Orestes Carrillo MD (res) Active JANUVIA 100 MG ORAL TABLET 1 tab By Mouth daily SITAGLIPTIN PHOSPHATE 88019621429 Active Juliann Worley MD (res) Active LISINOPRIL 10 MG ORAL TABLET 1 by mouth every day LISINOPRIL 09882520538 Active Paula Clay MD Active LORATADINE 10 MG ORAL TABLET 1 By Mouth once a day as needed for allergies LORATADINE 40336470999 Active Paula Clay MD Active METFORMIN HCL 1000 MG ORAL TABLET 1 by mouth twice a day METFORMIN HCL 40684828983 Active Paula Clay MD Active METOPROLOL TARTRATE 25 MG ORAL TABLET 1 by mouth twice a day METOPROLOL TARTRATE 92426422766 Active Orestes Carrillo MD (res) Active PLAVIX 75 MG ORAL TABLET 1 by mouth every day CLOPIDOGREL BISULFATE 52933978807 Active Paula Clay MD Active DIAZEPAM 10 MG TABS TAKE 1/2 TO 1 TABLET BY MOUTH DAILY NEEDED FOR ANXIETY DIAZEPAM 67096306464 Active Lele Suárez MD Active CEFDINIR 300 MG ORAL CAPSULE 2 tablets by mouth every day for 10 days CEFDINIR 300 MG ORAL CAPSULE 091193 CEFDINIR Inactive GABITRIL 4 MG ORAL TABLET Take one tablet by mouth twice a day. GABITRIL 4 MG ORAL TABLET 0740935 TIAGABINE HCL Inactive DIVALPROEX SODIUM ER 500 MG ORAL TABLET EXTENDED RELEASE 24 HOUR Takes 3 tablets in the morning and take at bedtime DIVALPROEX SODIUM ER 500 MG ORAL TABLET EXTENDED RELEASE 24 HOUR DIVALPROEX SODIUM Inactive GABAPENTIN 300 MG ORAL CAPSULE take three tablets Every Morning and three tablets take at bedtime GABAPENTIN 300 MG ORAL CAPSULE 045709 GABAPENTIN Inactive GLIPIZIDE 10 MG ORAL TABLET Takes one tablet Twice a Day GLIPIZIDE 10 MG ORAL TABLET 932259 GLIPIZIDE Inactive NORTRIPTYLINE HCL 25 MG ORAL CAPSULE Take one tablet By Mouth take at bedtime NORTRIPTYLINE HCL 25 MG ORAL CAPSULE 955407 NORTRIPTYLINE HCL Inactive NORTRIPTYLINE HCL 25 MG ORAL CAPSULE Take 2 capsules by mouth at bedtime as needed for sleep. NORTRIPTYLINE HCL 25 MG ORAL CAPSULE 436343 NORTRIPTYLINE HCL Inactive PAROXETINE HCL 20 MG ORAL TABLET Take 3 tablets By Mouth Every Morning PAROXETINE HCL 20 MG ORAL TABLET 0681133 PAROXETINE HCL Inactive PRAZOSIN HCL 2 MG ORAL CAPSULE Take 2 tablets By Mouth take at bedtime PRAZOSIN HCL 2 MG ORAL CAPSULE 571981 PRAZOSIN HCL Inactive TRAZODONE HCL 300 MG ORAL TABLET 1 by mouth every night TRAZODONE HCL 300 MG ORAL TABLET 856708 TRAZODONE HCL Inactive CEFDINIR 300 MG ORAL CAPSULE 2 tablets by mouth every day for 10 days CEFDINIR 90707520127 No Longer Active Joe Mcmullen MD Active GABITRIL 4 MG ORAL TABLET Take one tablet by mouth twice a day. TIAGABINE HCL 91240011090 No Longer Active Lele Suárez MD Active DIVALPROEX SODIUM ER 500 MG ORAL TABLET EXTENDED RELEASE 24 HOUR Takes 3 tablets in the morning and take at bedtime DIVALPROEX SODIUM 15425335306 No Longer Active Lele Suárez MD Active GABAPENTIN 300 MG ORAL CAPSULE take three tablets Every Morning and three tablets take at bedtime GABAPENTIN 22630657177 No Longer Active Lele Suárez MD Active GLIPIZIDE 10 MG ORAL TABLET Takes one tablet Twice a Day GLIPIZIDE 88355846800 No Longer Active Paula Clay MD Active NORTRIPTYLINE HCL 25 MG ORAL CAPSULE Take 2 capsules by mouth at bedtime as needed for sleep. NORTRIPTYLINE HCL 01943033179 No Longer Active Lele Suárez MD Active NORTRIPTYLINE HCL 25 MG ORAL CAPSULE Take one tablet By Mouth take at bedtime NORTRIPTYLINE HCL 09446490898 No Longer Active Paula Clay MD Active PAROXETINE HCL 20 MG ORAL TABLET Take 3 tablets By Mouth Every Morning PAROXETINE HCL 88123756693 No Longer Active Lele Suárez MD Active PRAZOSIN HCL 2 MG ORAL CAPSULE Take 2 tablets By Mouth take at bedtime PRAZOSIN HCL 08607456476 No Longer Active Juliann Worley MD (res) Active TRAZODONE HCL 300 MG ORAL TABLET 1 by mouth every night TRAZODONE HCL 39463410323 No Longer Active Lele Suárez MD Active Vital Signs Date Name Value Unit Range Description blood pressure, diastolic 80 mm[Hg] BP [place] blood pressure, systolic 118 mm[Hg] BP sys height E&M 72 [in_us] Bdy height pulse rate E&M 80 /min Heart rate respiratory rate E&M 18 /min Resp rate temperature E&M 98.5 [degF] Body temperature weight E&M 308.40 [lb_av] Weight Measured blood pressure, diastolic 74 mm[Hg] BP [place] blood pressure, systolic 122 mm[Hg] BP sys height E&M 72 [in_us] Bdy height pulse rate E&M 88 /min Heart rate weight E&M 311.40 [lb_av] Weight Measured blood pressure, diastolic 76 mm[Hg] BP [place] blood pressure, systolic 115 mm[Hg] BP sys height E&M 72 [in_us] Bdy height pulse rate E&M 84 /min Heart rate respiratory rate E&M 16 /min Resp rate temperature E&M 98.1 [degF] Body temperature weight E&M 291 [lb_av] Weight Measured blood pressure, diastolic 86 mm[Hg] BP [place] blood pressure, systolic 119 mm[Hg] BP sys height E&M 72 [in_us] Bdy height pulse rate E&M 103 /min Heart rate respiratory rate E&M 20 /min Resp rate temperature E&M 97.8 [degF] Body temperature weight E&M 300 [lb_av] Weight Measured blood pressure, diastolic 80 mm[Hg] BP [place] blood pressure, systolic 116 mm[Hg] BP sys height E&M 72 [in_us] Bdy height pulse rate E&M 69 /min Heart rate respiratory rate E&M 18 /min Resp rate temperature E&M 97.8 [degF] Body temperature weight E&M 310 [lb_av] Weight Measured blood pressure, diastolic 109 mm[Hg] BP [place] blood pressure, systolic 173 mm[Hg] BP sys height E&M 72 [in_us] Bdy height pulse rate E&M 111 /min Heart rate weight E&M 309 [lb_av] Weight Measured blood pressure, diastolic, second observation 84 mm[Hg] BP [place] blood pressure, diastolic 90 mm[Hg] BP [place] blood pressure, systolic, second observation 124 mm[Hg] BP sys blood pressure, systolic 130 mm[Hg] BP sys height E&M 72 [in_us] Bdy height pulse rate E&M 104 /min Heart rate pulse rate #2 88 Heart rate respiratory rate E&M 26 /min Resp rate temperature E&M 97.8 [degF] Body temperature weight E&M 308 [lb_av] Weight Measured blood pressure, diastolic 87 mm[Hg] BP [place] blood pressure, systolic 129 mm[Hg] BP sys height E&M 72 [in_us] Bdy height pulse rate E&M 125 /min Heart rate weight E&M 312.80 [lb_av] Weight Measured blood pressure, diastolic 92 mm[Hg] BP [place] blood pressure, systolic 137 mm[Hg] BP sys height E&M 72 [in_us] Bdy height pulse rate E&M 99 /min Heart rate weight E&M 312.50 [lb_av] Weight Measured blood pressure, diastolic, second observation 91 mm[Hg] BP [place] blood pressure, diastolic 91 mm[Hg] BP [place] blood pressure, systolic, second observation 136 mm[Hg] BP sys blood pressure, systolic 136 mm[Hg] BP sys height E&M 72 [in_us] Bdy height pulse rate E&M 107 /min Heart rate temperature E&M 98.2 [degF] Body temperature weight E&M 313 [lb_av] Weight Measured blood pressure, diastolic 92 mm[Hg] BP [place] blood pressure, systolic 126 mm[Hg] BP sys height E&M 72 [in_us] Bdy height pulse rate E&M 82 /min Heart rate respiratory rate E&M 17 /min Resp rate temperature E&M 98.8 [degF] Body temperature weight E&M 310.20 [lb_av] Weight Measured blood pressure, diastolic 85 mm[Hg] BP [place] blood pressure, systolic 137 mm[Hg] BP sys height E&M 72 [in_us] Bdy height pulse rate E&M 94 /min Heart rate respiratory rate E&M 21 /min Resp rate temperature E&M 98.2 [degF] Body temperature weight E&M 318.60 [lb_av] Weight Measured blood pressure, diastolic 77 mm[Hg] BP [place] blood pressure, systolic 118 mm[Hg] BP sys height E&M 72 [in_us] Bdy height pulse rate E&M 106 /min Heart rate respiratory rate E&M 24 /min Resp rate temperature E&M 98.5 [degF] Body temperature weight E&M 308.80 [lb_av] Weight Measured blood pressure, diastolic 86 mm[Hg] BP [place] blood pressure, systolic 127 mm[Hg] BP sys height E&M 72 [in_us] Bdy height pulse rate E&M 73 /min Heart rate respiratory rate E&M 18 /min Resp rate temperature E&M 97.9 [degF] Body temperature weight E&M 315 [lb_av] Weight Measured Diagnostic Results Date Name Value Unit Range Description Lab Report: TSH+Free T4, Comp. Metabolic Panel (14), Lipid Panel, Hemogl ... - Chemistry sodium, serum 134 mmol/L 134-144 Lab Report: [id number] 7+Alc-Unbund, Amphetamines Confirmation, Ur, [id number] 7 ... - Toxicology benzodiazepine screen, urine Positive Grxvuh=207 Lab Report: TSH+Free T4, Comp. Metabolic Panel (14), Lipid Panel, Hemogl ... - Chemistry thyroid stimulating hormone, serum 0.989 u[iU]/mL 0.450-4.500 Lab Report: [id number] 7+Alc-Unbund, Amphetamines Confirmation, Ur, [id number] 7 ... - Toxicology amphetamine screen, urine Negative Flcdgr=[id number] Lab Report: TSH+Free T4, Comp. Metabolic Panel (14), Lipid Panel, Hemogl ... - Chemistry very low density lipoproteins 60 mg/dL 5-40 Lab Report: [id number] 7+Alc-Unbund, Amphetamines Confirmation, Ur, [id number] 7 ... - Chemistry cannabinoid screen, urine Negative ng/mL Cutoff=50 Lab Report: TSH+Free T4, Comp. Metabolic Panel (14), Lipid Panel, Hemogl ... - Chemistry carbon dioxide, venous blood 22 mmol/L 20-29 Lab Report: [id number] 7+Alc-Unbund, Amphetamines Confirmation, Ur, [id number] 7 ... - Toxicology phencyclidine screen, urine Negative ng/mL Cutoff=25 Lab Report: TSH+Free T4, Comp. Metabolic Panel (14), Lipid Panel, Hemogl ... - Chemistry chloride, serum 97 mmol/L 96-106 triglyceride, serum, fasting 298 mg/dL 0-149 calcium, serum 10.3 mg/dL 8.7-10.2 urea nitrogen, blood 15 mg/dL 6-24 alanine aminotransferase (SGPT), serum 50 U/L 0-44 protein, total, serum 7.2 g/dL 6.0-8.5 alkaline phosphatase, serum 67 U/L 39-117 LDL cholesterol, serum 89 mg/dL 0-99 urea nitrogen/creatinine ratio, serum 14 9-20 Office Visit: Adult Follow up Dr. Worley - Chemistry hemoglobin A1C, blood, as % of total hemoglobin 9.3 % Lab Report: [id number] 7+Alc-Unbund, Amphetamines Confirmation, Ur, [id number] 7 ... - Toxicology barbiturates screen, urine Negative Vwowzd=010 cocaine, urine Negative Ygewsy=247 Lab Report: TSH+Free T4, Comp. Metabolic Panel (14), Lipid Panel, Hemogl ... - Chemistry HDL cholesterol, serum 53 mg/dL >39 Lab Report: TSH+Free T4, Comp. Metabolic Panel (14), Lipid Panel, Hemogl ... - Genetics/fertility eGFR if 97 mL/min/1.73m2 >59 Lab Report: TSH+Free T4, Comp. Metabolic Panel (14), Lipid Panel, Hemogl ... - Chemistry thyroxine, serum, free 1.16 ng/dL 0.82-1.77 globulin, serum 2.5 1.5-4.5 creatinine, serum 1.06 mg/dL 0.76-1.27 Estimated Glomerular Filtration Rate (calc) 84 mL/min/1.73m2 >59 albumin/globulin ratio, serum 1.9 1.2-2.2 cholesterol, serum 202 mg/dL 655-420 7699/09/07 bilirubin, serum, total 0.3 mg/dL 0.0-1.2 Office Visit: Acute Visit Rm1 - Chemistry blood glucose, random 233 mg/dL Lab Report: TSH+Free T4, Comp. Metabolic Panel (14), Lipid Panel, Hemogl ... - Chemistry aspartate aminotransferase (SGOT), serum 32 U/L 0-40 potassium, serum 4.6 mmol/L 3.5-5.2 albumin, serum 4.7 g/dL 3.5-5.5 Lab Report: [id number] 7+Alc-Unbund, Amphetamines Confirmation, Ur, [id number] 7 ... - Toxicology opiates, urine, semiquantitative See Final Results Ryqwxa=397 Encounters Date Encounter Provider Code Facility 16:17:36 [facility] Est Patient Exp Problem - 48631 Joe Mcmullen MD CPT-09926 [facility] 15:02:34 [facility] Est Patient Exp Problem - 13964 Lele Suárez MD CPT-01827 [facility] 17:20:36 [facility] Est Patient Exp Problem - 34461 Delicia Meraz MD (res) CPT-61060 [facility] 16:35:53 [facility] Est Patient Exp Problem - 76045 Bandar Garcia MD R3 CPT-99718 [facility] 10:34:23 [facility] Est Patient Exp Problem - 13793 Juliann Worley MD (res) CPT-12548 [facility] 15:34:44 [facility] Est Patient Exp Problem - 47737 Lele Suárez MD CPT-52728 [facility] 15:35:27 [facility] Est Patient Exp Problem - 53195 Juliann Worley MD (res) CPT-04195 [facility] 15:12:46 CDT Est Patient Exp Problem - 64736 Lele Suárez MD CPT-52737 [facility] 13:08:51 CDT Est Patient Detailed - 82837 Lele Suárez MD CPT-50329 [facility] 23:10:36 CDT Est Patient Detailed - 25321 Paula Clay MD CPT-26234 [facility] 14:28:27 CDT Est Patient Exp Problem - 76683 Oscar Nielson MD (res) CPT-58950 [facility] 15:02:09 CDT Est Patient Exp Problem - 86897 Paula Clay MD CPT-82997 [facility] 10:56:53 CDT New Patient Detailed - 91115 Pepito Boyd MD CPT-33387 [facility] Procedures Code Procedure Name Date Entry Date Standard Description CPT-01483 Health & Behavior [facility] Indiv - 17473 14:47:42 [facility] CPT-77637 HEMOGLOBIN A1C - In House 10:34:23 [facility] CPT-83506 Diagnostic evaluation (no medical) - 29117 08:53:47 [facility] CPT-64882 Glucose Stick 15:55:29 [facility] CPT-76740 Diagnostic evaluation with medical - 39366 13:48:41 CDT
--- OUTSIDE RECORDS SUMMARY | 2018-09-20 13:36 | XMS REPORT ---
Author Author Admin, [place] Organization [facility] Practice Address [address] [place] [address] Phone Allergies, Adverse Reactions, Alerts Allergy Name [...] Coronary atherosclerosis of unspecified type of vessel, ken[place]ze or graft Diabetes mellitus type II 250.00 [...] from sleep Panic attack 300.01 Active Paula Clay MD Panic disorder without agoraphobia PTSD 309.81 [...] Instructions Start Date Stop Date Generic Name ND Status Provider Patient Instruction AZITHROMYCIN 250 MG ORAL TABLET 2 tablets by mouth on day one then one tablet by mouth each day for a total of 5 days AZITHROMYCIN 69880603001 Active Joe Mcmullen MD Active BD PEN NEEDLE LUZ U/F 32G X 4 MM Please use new needle for pen INSULIN PEN NEEDLE 36243705545 Active Delicia Meraz MD (res) Active TYLENOL WITH CODEINE #3 300-30 MG ORAL TABLET 1 by mouth every 8 hours as needed ACETAMINOPHEN-CODEINE 16477194223 Active Bandar Garcia MD R3 Active VIIBRYD 20 MG ORAL TABLET Take 1 tablet by mouth daily. VILAZODONE HCL 58740659981 Active Lele Suárez MD Active ASPIRIN 81 MG ORAL TABLET DELAYED RELEASE 1 by mouth every day ASPIRIN 41688906398 Active Juliann Worley MD (res) Active MECLIZINE HCL 25 MG ORAL TABLET 1 by mouth 3 times a day as needed for dizziness MECLIZINE HCL 03381326806 Active Juliann Worley MD (res) Active DOXEPIN HCL 25 MG ORAL CAPSULE Take 1-2 capsules at bedtime as needed for sleep. DOXEPIN HCL 30247217607 Active Lele Suárez MD Active PAXIL 30 MG ORAL TABLET Take 2 tablets by mouth daily. PAROXETINE HCL 56601310614 Active Lele Suárez MD Active ATORVASTATIN CALCIUM 80 MG ORAL TABLET Take one tablet By Mouth Every Day ATORVASTATIN CALCIUM 94252200098 Active Orestes Carrillo MD (res) Active JANUVIA 100 MG ORAL TABLET 1 tab By Mouth daily SITAGLIPTIN PHOSPHATE 26730219323 Active Juliann Worley MD (res) Active LISINOPRIL 10 MG ORAL TABLET 1 by mouth every day LISINOPRIL 81010817877 Active Paula Clay MD Active LORATADINE 10 MG ORAL TABLET 1 By Mouth once a day as needed for allergies LORATADINE 04082188608 Active Paula Clay MD Active METFORMIN HCL 1000 MG ORAL TABLET 1 by mouth twice a day METFORMIN HCL 38798376417 Active Paula Clay MD Active METOPROLOL TARTRATE 25 MG ORAL TABLET 1 by mouth twice a day METOPROLOL TARTRATE 47133996962 Active Orestes Carrillo MD (res) Active PLAVIX 75 MG ORAL TABLET 1 by mouth every day CLOPIDOGREL BISULFATE 08416214423 Active Paula Clay MD Active DIAZEPAM 10 MG TABS TAKE 1/2 TO 1 TABLET BY MOUTH DAILY NEEDED FOR ANXIETY DIAZEPAM 92820881375 Active Lele Suárez MD Active CEFDINIR 300 MG ORAL CAPSULE 2 tablets by mouth every day for 10 days CEFDINIR 300 MG ORAL CAPSULE 419416 CEFDINIR Inactive GABITRIL 4 MG ORAL TABLET Take one tablet by mouth twice a day. GABITRIL 4 MG ORAL TABLET 8827104 TIAGABINE HCL Inactive DIVALPROEX SODIUM ER 500 MG ORAL TABLET EXTENDED RELEASE 24 HOUR Takes 3 tablets in the morning and take at bedtime DIVALPROEX SODIUM ER 500 MG ORAL TABLET EXTENDED RELEASE 24 HOUR DIVALPROEX SODIUM Inactive GABAPENTIN 300 MG ORAL CAPSULE take three tablets Every Morning and three tablets take at bedtime GABAPENTIN 300 MG ORAL CAPSULE 555118 GABAPENTIN Inactive GLIPIZIDE 10 MG ORAL TABLET Takes one tablet Twice a Day GLIPIZIDE 10 MG ORAL TABLET 467045 GLIPIZIDE Inactive NORTRIPTYLINE HCL 25 MG ORAL CAPSULE Take one tablet By Mouth take at bedtime NORTRIPTYLINE HCL 25 MG ORAL CAPSULE 239812 NORTRIPTYLINE HCL Inactive NORTRIPTYLINE HCL 25 MG ORAL CAPSULE Take 2 capsules by mouth at bedtime as needed for sleep. NORTRIPTYLINE HCL 25 MG ORAL CAPSULE 097217 NORTRIPTYLINE HCL Inactive PAROXETINE HCL 20 MG ORAL TABLET Take 3 tablets By Mouth Every Morning PAROXETINE HCL 20 MG ORAL TABLET 5875950 PAROXETINE HCL Inactive PRAZOSIN HCL 2 MG ORAL CAPSULE Take 2 tablets By Mouth take at bedtime PRAZOSIN HCL 2 MG ORAL CAPSULE 854208 PRAZOSIN HCL Inactive TRAZODONE HCL 300 MG ORAL TABLET 1 by mouth every night TRAZODONE HCL 300 MG ORAL TABLET 215773 TRAZODONE HCL Inactive CEFDINIR 300 MG ORAL CAPSULE 2 tablets by mouth every day for 10 days CEFDINIR 36195149156 No Longer Active Joe Mcmullen MD Active GABITRIL 4 MG ORAL TABLET Take one tablet by mouth twice a day. TIAGABINE HCL 92498664475 No Longer Active Lele Suárez MD Active DIVALPROEX SODIUM ER 500 MG ORAL TABLET EXTENDED RELEASE 24 HOUR Takes 3 tablets in the morning and take at bedtime DIVALPROEX SODIUM 87202808765 No Longer Active Lele Suárez MD Active GABAPENTIN 300 MG ORAL CAPSULE take three tablets Every Morning and three tablets take at bedtime GABAPENTIN 31219553783 No Longer Active Lele Suárez MD Active GLIPIZIDE 10 MG ORAL TABLET Takes one tablet Twice a Day GLIPIZIDE 01135943091 No Longer Active Paula Clay MD Active NORTRIPTYLINE HCL 25 MG ORAL CAPSULE Take 2 capsules by mouth at bedtime as needed for sleep. NORTRIPTYLINE HCL 10346647751 No Longer Active Lele Suárez MD Active NORTRIPTYLINE HCL 25 MG ORAL CAPSULE Take one tablet By Mouth take at bedtime NORTRIPTYLINE HCL 69927420142 No Longer Active Paula Clay MD Active PAROXETINE HCL 20 MG ORAL TABLET Take 3 tablets By Mouth Every Morning PAROXETINE HCL 51355759579 No Longer Active Lele Suárez MD Active PRAZOSIN HCL 2 MG ORAL CAPSULE Take 2 tablets By Mouth take at bedtime PRAZOSIN HCL 80427603602 No Longer Active Juliann Worley MD (res) Active TRAZODONE HCL 300 MG ORAL TABLET 1 by mouth every night TRAZODONE HCL 82097417681 No Longer Active Lele Suárez MD Active [...] sodium, serum 134 mmol/L 134-144 Lab Report: [id number] 7+Alc-Unbund, Amphetamines Confirmation, Ur, 846579 7 ... - Toxicology benzodiazepine screen, urine Positive Jiadko=151 Lab Report: TSH+Free T4, Comp. Metabolic Panel (14), Lipid Panel, Hemogl ... - Chemistry thyroid stimulating hormone, serum 0.989 u[iU]/mL 0.450-4.500 Lab Report: [id number] 7+Alc-Unbund, Amphetamines Confirmation, Ur, 275434 7 ... - Toxicology amphetamine screen, urine Negative Atlasb=1589 Lab Report: TSH+Free T4, Comp. Metabolic Panel (14), Lipid Panel, Hemogl ... - Chemistry very low density lipoproteins 60 mg/dL 5-40 Lab Report: [id number] 7+Alc-Unbund, Amphetamines Confirmation, Ur, 030147 7 ... - Chemistry cannabinoid screen, urine Negative ng/mL Cutoff=50 Lab Report: TSH+Free T4, Comp. Metabolic Panel (14), Lipid Panel, Hemogl ... - Chemistry carbon dioxide, venous blood 22 mmol/L 20-29 Lab Report: [id number] 7+Alc-Unbund, Amphetamines Confirmation, Ur, 599711 7 ... - Toxicology phencyclidine screen, urine [...] of total hemoglobin 9.3 % Lab Report: [id number] 7+Alc-Unbund, Amphetamines Confirmation, Ur, 654468 7 ... - Toxicology cocaine, urine Negative Xpzdql=913 barbiturates screen, urine Negative Jwaeuz=701 Lab Report: TSH+Free T4, Comp. Metabolic Panel [...] serum 1.9 1.2-2.2 cholesterol, serum 202 mg/dL [phone]/09/07 bilirubin, serum, total 0.3 mg/dL 0.0-1.2 Office Visit: Acute Visit Rm1 - Chemistry blood glucose, random 233 mg/dL Lab Report: TSH+Free T4, Comp. Metabolic Panel (14), Lipid Panel, Hemogl ... - Chemistry aspartate aminotransferase (SGOT), serum 32 U/L 0-40 potassium, serum 4.6 mmol/L 3.5-5.2 albumin, serum 4.7 g/dL 3.5-5.5 Lab Report: [id number] 7+Alc-Unbund, Amphetamines Confirmation, Ur, 856980 7 ... - Toxicology opiates, urine, semiquantitative See Final Results Znwiot=573 Encounters Date Encounter Provider Code Facility 16:17:36 DEXTRINE MIXER Est Patient Exp Problem - 71484 Joe Mcmullen MD CPT-67027 [facility] 15:02:34 DEXTRINE MIXER Est Patient Exp Problem - 48695 Lele Suárez MD CPT-81449 [facility] 17:20:36 DEXTRINE MIXER Est Patient Exp Problem - 49176 Delicia Meraz MD (res) CPT-39361 [facility] 16:35:53 DEXTRINE MIXER Est Patient Exp Problem - 52138 Bandar Garcia MD R3 CPT-13944 [facility] 10:34:23 DEXTRINE MIXER Est Patient Exp Problem - 22654 Juliann Worley MD (res) CPT-29848 [facility] 15:34:44 DEXTRINE MIXER Est Patient Exp Problem - 31772 Lele Suárez MD CPT-89134 [facility] 15:35:27 DEXTRINE MIXER Est Patient Exp Problem - 36307 Juliann Worley MD (res) CPT-34337 [facility] 15:12:46 CDT Est Patient Exp Problem - 31741 Lele Suárez MD CPT-74137 [facility] 13:08:51 CDT Est Patient Detailed - 28989 Lele Suárez MD CPT-07583 [facility] 23:10:36 CDT Est Patient Detailed - 90529 Paula Clay MD CPT-21540 [facility] 14:28:27 CDT Est Patient Exp Problem - 00784 Oscar Nielson MD (res) CPT-77142 [facility] 15:02:09 CDT Est Patient Exp Problem - 47507 Paula Clay MD CPT-65159 [facility] 10:56:53 CDT New Patient Detailed - 23282 Pepito Boyd MD CPT-44423 [facility] Procedures Code Procedure Name Date Entry Date Standard Description CPT-16781 [facility] Indiv - 09151 14:47:42 DEXTRINE MIXER CPT-57882 HEMOGLOBIN A1C - In House 10:34:23 DEXTRINE MIXER CPT-69815 Diagnostic evaluation (no medical) - 36768 08:53:47 DEXTRINE MIXER CPT-26917 Glucose Stick 15:55:29 DEXTRINE MIXER CPT-11457 Diagnostic evaluation with medical - 47063 13:48:41 CDT
--- OUTSIDE RECORDS SUMMARY | 2018-09-20 13:36 | XMS REPORT ---
Author Author Admin, [place] Organization [facility] Practice Address [address] [place] [address] Phone Allergies, Adverse Reactions, Alerts Allergy Name Reaction Description Start Date Severity Status Provider CEFDINIR - Generalized itching that resolved with Benadryl. Moderate Active Joe Mcmullen MD TYLENOL WITH CODEINE #3 Hives Moderate Active Geovanna Payne MD MEDROL DOSE PACK Critical Active Pepito Boyd MD PENICILLIN Critical Active Pepito Body MD TORADOL Critical Active Pepito Boyd MD [...] Coronary atherosclerosis of unspecified type of vessel, [place] or graft Diabetes mellitus type II 250.00 [...] for a total of 5 days AZITHROMYCIN 86304821816 Active Joe Mcmullen MD Active BD PEN NEEDLE LUZ U/F 32G X 4 MM Please use new needle for pen INSULIN PEN NEEDLE 59413516904 Active Delicia Meraz MD (res) Active TYLENOL WITH CODEINE #3 300-30 MG ORAL TABLET 1 by mouth every 8 hours as needed ACETAMINOPHEN-CODEINE 18585324423 Active Bandar Garcia MD R3 Active VIIBRYD 20 MG ORAL TABLET Take 1 tablet by mouth daily. VILAZODONE HCL 06376127100 Active Lele Suárez MD Active ASPIRIN 81 MG ORAL TABLET DELAYED RELEASE 1 by mouth every day ASPIRIN 11744646611 Active Juliann Worley MD (res) Active MECLIZINE HCL 25 MG ORAL TABLET 1 by mouth 3 times a day as needed for dizziness MECLIZINE HCL 18689441072 Active Juliann Worley MD (res) Active DOXEPIN HCL 25 MG ORAL CAPSULE Take 1-2 capsules at bedtime as needed for sleep. DOXEPIN HCL 46919130056 Active Lele Suárez MD Active PAXIL 30 MG ORAL TABLET Take 2 tablets by mouth daily. PAROXETINE HCL 86208714215 Active Lele Suárez MD Active ATORVASTATIN CALCIUM 80 MG ORAL TABLET Take one tablet By Mouth Every Day ATORVASTATIN CALCIUM 78597239318 Active Orestes Carrillo MD (res) Active JANUVIA 100 MG ORAL TABLET 1 tab By Mouth daily SITAGLIPTIN PHOSPHATE 74234392225 Active Juliann Worley MD (res) Active LISINOPRIL 10 MG ORAL TABLET 1 by mouth every day LISINOPRIL 29971365390 Active Paula Clay MD Active LORATADINE 10 MG ORAL TABLET 1 By Mouth once a day as needed for allergies LORATADINE 45686192365 Active Paula Clay MD Active METFORMIN HCL 1000 MG ORAL TABLET 1 by mouth twice a day METFORMIN HCL 92925531536 Active Paula Clay MD Active METOPROLOL TARTRATE 25 MG ORAL TABLET 1 by mouth twice a day METOPROLOL TARTRATE 88582290111 Active Orestes Carrillo MD (res) Active PLAVIX 75 MG ORAL TABLET 1 by mouth every day CLOPIDOGREL BISULFATE 56987458374 Active Paula Clay MD Active DIAZEPAM 10 MG TABS TAKE 1/2 TO 1 TABLET BY MOUTH DAILY NEEDED FOR ANXIETY DIAZEPAM 23196369319 Active Lele Suárez MD Active CEFDINIR 300 MG ORAL CAPSULE 2 tablets by mouth every day for 10 days CEFDINIR 300 MG ORAL CAPSULE 233922 CEFDINIR Inactive GABITRIL 4 MG ORAL TABLET Take one tablet by mouth twice a day. GABITRIL 4 MG ORAL TABLET 0706176 TIAGABINE HCL Inactive DIVALPROEX SODIUM ER 500 MG ORAL TABLET EXTENDED RELEASE 24 HOUR Takes 3 tablets in the morning and take at bedtime DIVALPROEX SODIUM ER 500 MG ORAL TABLET EXTENDED RELEASE 24 HOUR DIVALPROEX SODIUM Inactive GABAPENTIN 300 MG ORAL CAPSULE take three tablets Every Morning and three tablets take at bedtime GABAPENTIN 300 MG ORAL CAPSULE 520164 GABAPENTIN Inactive GLIPIZIDE 10 MG ORAL TABLET Takes one tablet Twice a Day GLIPIZIDE 10 MG ORAL TABLET 844684 GLIPIZIDE Inactive NORTRIPTYLINE HCL 25 MG ORAL CAPSULE Take one tablet By Mouth take at bedtime NORTRIPTYLINE HCL 25 MG ORAL CAPSULE 370914 NORTRIPTYLINE HCL Inactive NORTRIPTYLINE HCL 25 MG ORAL CAPSULE Take 2 capsules by mouth at bedtime as needed for sleep. NORTRIPTYLINE HCL 25 MG ORAL CAPSULE 153270 NORTRIPTYLINE HCL Inactive PAROXETINE HCL 20 MG ORAL TABLET Take 3 tablets By Mouth Every Morning PAROXETINE HCL 20 MG ORAL TABLET 2539883 PAROXETINE HCL Inactive PRAZOSIN HCL 2 MG ORAL CAPSULE Take 2 tablets By Mouth take at bedtime PRAZOSIN HCL 2 MG ORAL CAPSULE 935388 PRAZOSIN HCL Inactive TRAZODONE HCL 300 MG ORAL TABLET 1 by mouth every night TRAZODONE HCL 300 MG ORAL TABLET 721578 TRAZODONE HCL Inactive CEFDINIR 300 MG ORAL CAPSULE 2 tablets by mouth every day for 10 days CEFDINIR 59900408495 No Longer Active Joe Mcmullen MD Active GABITRIL 4 MG ORAL TABLET Take one tablet by mouth twice a day. TIAGABINE HCL 01677630044 No Longer Active Lele Suárze MD Active DIVALPROEX SODIUM ER 500 MG ORAL TABLET EXTENDED RELEASE 24 HOUR Takes 3 tablets in the morning and take at bedtime DIVALPROEX SODIUM 18196009552 No Longer Active Lele Suárez MD Active GABAPENTIN 300 MG ORAL CAPSULE take three tablets Every Morning and three tablets take at bedtime GABAPENTIN 94742888692 No Longer Active Lele Suárez MD Active GLIPIZIDE 10 MG ORAL TABLET Takes one tablet Twice a Day GLIPIZIDE 52752857602 No Longer Active Paula Clay MD Active NORTRIPTYLINE HCL 25 MG ORAL CAPSULE Take 2 capsules by mouth at bedtime as needed for sleep. NORTRIPTYLINE HCL 84257099458 No Longer Active Lele Suárez MD Active NORTRIPTYLINE HCL 25 MG ORAL CAPSULE Take one tablet By Mouth take at bedtime NORTRIPTYLINE HCL 85386967163 No Longer Active Paula Clay MD Active PAROXETINE HCL 20 MG ORAL TABLET Take 3 tablets By Mouth Every Morning PAROXETINE HCL 29024898711 No Longer Active Lele Suárez MD Active PRAZOSIN HCL 2 MG ORAL CAPSULE Take 2 tablets By Mouth take at bedtime PRAZOSIN HCL 83241884168 No Longer Active Juliann Worley MD (res) Active TRAZODONE HCL 300 MG ORAL TABLET 1 by mouth every night TRAZODONE HCL 73398917932 No Longer Active Lele Suárez MD Active [...] sodium, serum 134 mmol/L 134-144 Lab Report: [id number] 7+Alc-Unbund, Amphetamines Confirmation, Ur, 825175 7 ... - Toxicology benzodiazepine screen, urine Positive Nyseng=855 Lab Report: TSH+Free T4, Comp. Metabolic Panel (14), Lipid Panel, Hemogl ... - Chemistry thyroid stimulating hormone, serum 0.989 u[iU]/mL 0.450-4.500 Lab Report: [id number] 7+Alc-Unbund, Amphetamines Confirmation, Ur, 326391 7 ... - Toxicology amphetamine screen, urine Negative Ilbykb=5136 Lab Report: TSH+Free T4, Comp. Metabolic Panel (14), Lipid Panel, Hemogl ... - Chemistry very low density lipoproteins 60 mg/dL 5-40 Lab Report: [id number] 7+Alc-Unbund, Amphetamines Confirmation, Ur, 825622 7 ... - Chemistry cannabinoid screen, urine Negative ng/mL Cutoff=50 Lab Report: TSH+Free T4, Comp. Metabolic Panel (14), Lipid Panel, Hemogl ... - Chemistry carbon dioxide, venous blood 22 mmol/L 20-29 Lab Report: [id number] 7+Alc-Unbund, Amphetamines Confirmation, Ur, 111170 7 ... - Toxicology phencyclidine screen, urine [...] of total hemoglobin 9.3 % Lab Report: [id number] 7+Alc-Unbund, Amphetamines Confirmation, Ur, 437889 7 ... - Toxicology cocaine, urine Negative Wsyiyn=246 barbiturates screen, urine Negative Wtrnxy=020 Lab Report: TSH+Free T4, Comp. Metabolic Panel [...] serum 1.9 1.2-2.2 cholesterol, serum 202 mg/dL 724-173 0753/09/07 bilirubin, serum, total 0.3 mg/dL 0.0-1.2 Office Visit: Acute Visit Rm1 - Chemistry blood glucose, random 233 mg/dL Lab Report: TSH+Free T4, Comp. Metabolic Panel (14), Lipid Panel, Hemogl ... - Chemistry aspartate aminotransferase (SGOT), serum 32 U/L 0-40 potassium, serum 4.6 mmol/L 3.5-5.2 albumin, serum 4.7 g/dL 3.5-5.5 Lab Report: [id number] 7+Alc-Unbund, Amphetamines Confirmation, Ur, 867239 7 ... - Toxicology opiates, urine, semiquantitative See Final Results Gwxsut=355 Encounters Date Encounter Provider Code Facility 16:17:36 EXTERMINATION SUPERVISOR Est Patient Exp Problem - 79747 Joe Mcmullen MD CPT-54647 [facility] 15:02:34 EXTERMINATION SUPERVISOR Est Patient Exp Problem - 26904 Lele Suárez MD CPT-86868 [facility] 17:20:36 EXTERMINATION SUPERVISOR Est Patient Exp Problem - 76318 Delicia Meraz MD (res) CPT-70772 [facility] 16:35:53 EXTERMINATION SUPERVISOR Est Patient Exp Problem - 03773 Bandar Garcia MD R3 CPT-72340 [facility] 10:34:23 EXTERMINATION SUPERVISOR Est Patient Exp Problem - 40750 Juliann Worley MD (res) CPT-14312 [facility] 15:34:44 EXTERMINATION SUPERVISOR Est Patient Exp Problem - 64193 Lele Suárez MD CPT-60609 [facility] 15:35:27 EXTERMINATION SUPERVISOR Est Patient Exp Problem - 54520 Juliann Worley MD (res) CPT-86156 [facility] 15:12:46 CDT Est Patient Exp Problem - 55848 Lele Suárez MD CPT-93242 [facility] 13:08:51 CDT Est Patient Detailed - 85529 Lele Suárez MD CPT-75799 [facility] 23:10:36 CDT Est Patient Detailed - 17721 Paula Clay MD CPT-83593 [facility] 14:28:27 CDT Est Patient Exp Problem - 77418 Oscar Nielson MD (res) CPT-17167 [facility] 15:02:09 CDT Est Patient Exp Problem - 75088 Paula Clay MD CPT-71390 [facility] 10:56:53 CDT New Patient Detailed - 86698 Pepito Boyd MD CPT-34836 [facility] Procedures Code Procedure Name Date Entry Date Standard Description CPT-66978 Health & Behavior [facility] Indiv - 06518 14:47:42 EXTERMINATION SUPERVISOR CPT-18381 HEMOGLOBIN A1C - In House 10:34:23 EXTERMINATION SUPERVISOR CPT-08957 Diagnostic evaluation (no medical) - 70127 08:53:47 EXTERMINATION SUPERVISOR CPT-98296 Glucose Stick 15:55:29 EXTERMINATION SUPERVISOR CPT-74439 Diagnostic evaluation with medical - 85491 13:48:41 CDT
--- OUTSIDE RECORDS SUMMARY | 2018-09-20 13:36 | XMS REPORT ---
Author Author Admin, Sterling Organization [facility] Address [address] [address] Phone Allergies, Adverse Reactions, Alerts Allergy Name Reaction Description Start Date Severity Status Provider MEDROL DOSE PACK Critical Active Pepito Boyd MD PENICILLIN Critical Active Pepito Boyd MD TORADOL Critical Active Pepito Boyd MD Conditions or Problems Problem Name Problem Code Onset Date Status Entry Date Provider Comment Standard Description Annotate Chronic back pain 724.5 Active Juliann Worley [...] Coronary atherosclerosis of unspecified type of vessel, pilot point or graft Diabetes mellitus type II [...] Paula Clay MD Allergic rhinitis, cause unspecified Diabetes mellitus, type II 250.00 Active Pepito Boyd MD Diabetes mellitus without mention of complication, type II or unspecified type, not stated as uncontrolled Depression, chronic ICD-311 Inactive Lele Suárez MD Depression, chronic 311 Resolved Lele Suárez MD Depressive disorder, not elsewhere classified Medication List Medication Instructions Start Date Stop Date Generic Name NDC Status Provider Patient Instruction [id number] 20 MG ORAL TABLET Take 1 tablet by mouth daily. VILAZODONE HCL 70724859079 Active Lele Suárez MD Active ASPIRIN 81 MG ORAL TABLET DELAYED RELEASE 1 by mouth every day ASPIRIN 11509787407 Active Juliann Worley MD (res) Active MECLIZINE HCL 25 MG ORAL TABLET 1 by mouth 3 times a day as needed for dizziness MECLIZINE HCL 56585900123 Active Juliann Worley MD (res) Active DOXEPIN HCL 25 MG ORAL CAPSULE Take 1-2 capsules at bedtime as needed for sleep. DOXEPIN HCL 99007277095 Active Lele Suárez MD Active PAXIL 30 MG ORAL TABLET Take 2 tablets by mouth daily. PAROXETINE HCL 40522952736 Active Lele Suárez MD Active ATORVASTATIN CALCIUM 80 MG ORAL TABLET Take one tablet By Mouth Every Day ATORVASTATIN CALCIUM 70037682091 Active Orestes Carrillo MD (res) Active JANUVIA 100 MG ORAL TABLET 1 tab By Mouth daily SITAGLIPTIN PHOSPHATE 57437654450 Active Juliann Worley MD (res) Active LISINOPRIL 10 MG ORAL TABLET 1 by mouth every day LISINOPRIL 74770622872 Active Paula Clay MD Active LORATADINE 10 MG ORAL TABLET 1 By Mouth once a day as needed for allergies LORATADINE 11098769427 Active Paula Clay MD Active METFORMIN HCL 1000 MG ORAL TABLET 1 by mouth twice a day METFORMIN HCL 59258291065 Active Paula Clay MD Active METOPROLOL TARTRATE 25 MG ORAL TABLET 1 by mouth twice a day METOPROLOL TARTRATE 91549957143 Active Orestes Carrillo MD (res) Active PLAVIX 75 MG ORAL TABLET 1 by mouth every day CLOPIDOGREL BISULFATE 78872127448 Active Paula Clay MD Active DIAZEPAM 10 MG TABS TAKE 1/2 TO 1 TABLET BY MOUTH DAILY NEEDED FOR ANXIETY DIAZEPAM 14086114958 Active Lele Suárez MD Active GABITRIL 4 MG ORAL TABLET Take one tablet by mouth twice a day. GABITRIL 4 MG ORAL TABLET 2265155 TIAGABINE HCL Inactive DIVALPROEX SODIUM ER 500 MG ORAL TABLET EXTENDED RELEASE 24 HOUR Takes 3 tablets in the morning and take at bedtime DIVALPROEX SODIUM ER 500 MG ORAL TABLET EXTENDED RELEASE 24 HOUR DIVALPROEX SODIUM Inactive GABAPENTIN 300 MG ORAL CAPSULE take three tablets Every Morning and three tablets take at bedtime GABAPENTIN 300 MG ORAL CAPSULE 358111 GABAPENTIN Inactive GLIPIZIDE 10 MG ORAL TABLET Takes one tablet Twice a Day GLIPIZIDE 10 MG ORAL TABLET 544422 GLIPIZIDE Inactive NORTRIPTYLINE HCL 25 MG ORAL CAPSULE Take one tablet By Mouth take at bedtime NORTRIPTYLINE HCL 25 MG ORAL CAPSULE 090863 NORTRIPTYLINE HCL Inactive NORTRIPTYLINE HCL 25 MG ORAL CAPSULE Take 2 capsules by mouth at bedtime as needed for sleep. NORTRIPTYLINE HCL 25 MG ORAL CAPSULE 041386 NORTRIPTYLINE HCL Inactive PAROXETINE HCL 20 MG ORAL TABLET Take 3 tablets By Mouth Every Morning PAROXETINE HCL 20 MG ORAL TABLET 0803957 PAROXETINE HCL Inactive PRAZOSIN HCL 2 MG ORAL CAPSULE Take 2 tablets By Mouth take at bedtime PRAZOSIN HCL 2 MG ORAL CAPSULE 997522 PRAZOSIN HCL Inactive TRAZODONE HCL 300 MG ORAL TABLET 1 by mouth every night TRAZODONE HCL 300 MG ORAL TABLET 275431 TRAZODONE HCL Inactive GABITRIL 4 MG ORAL TABLET Take one tablet by mouth twice a day. TIAGABINE HCL 29717399351 No Longer Active Lele Suárez MD Active DIVALPROEX SODIUM ER 500 MG ORAL TABLET EXTENDED RELEASE 24 HOUR Takes 3 tablets in the morning and take at bedtime DIVALPROEX SODIUM 08406463663 No Longer Active Lele Suárez MD Active GABAPENTIN 300 MG ORAL CAPSULE take three tablets Every Morning and three tablets take at bedtime GABAPENTIN 63494951731 No Longer Active Lele Suárez MD Active GLIPIZIDE 10 MG ORAL TABLET Takes one tablet Twice a Day GLIPIZIDE 56236980429 No Longer Active Paula Clay MD Active NORTRIPTYLINE HCL 25 MG ORAL CAPSULE Take 2 capsules by mouth at bedtime as needed for sleep. NORTRIPTYLINE HCL 21711157288 No Longer Active Lele Suárez MD Active NORTRIPTYLINE HCL 25 MG ORAL CAPSULE Take one tablet By Mouth take at bedtime NORTRIPTYLINE HCL 59304567806 No Longer Active Paula Clay MD Active PAROXETINE HCL 20 MG ORAL TABLET Take 3 tablets By Mouth Every Morning PAROXETINE HCL 19702368720 No Longer Active Lele Suárez MD Active PRAZOSIN HCL 2 MG ORAL CAPSULE Take 2 tablets By Mouth take at bedtime PRAZOSIN HCL 01394637467 No Longer Active Juliann Worley MD (res) Active TRAZODONE HCL 300 MG ORAL TABLET 1 by mouth every night TRAZODONE HCL 53968773853 No Longer Active Lele Suárez MD Active Vital Signs Date Name Value Unit Range Description blood pressure, diastolic - 8462-4 109 mm[Hg] BP [place] blood pressure, systolic - 8480-6 173 mm[Hg] BP sys height E&M - 8302-2 72 [in_us] Bdy height pulse rate E&M - 8867-4 111 /min Heart rate weight E&M - 3141-9 309 [lb_av] Weight Measured blood pressure, diastolic, second observation 84 mm[Hg] BP [place] blood pressure, diastolic - 8462-4 90 mm[Hg] BP [place] blood pressure, systolic, second observation 124 mm[Hg] BP sys blood pressure, systolic - 8480-6 130 mm[Hg] BP sys height E&M - 8302-2 72 [in_us] Bdy height pulse rate E&M - 8867-4 104 /min Heart rate pulse rate #2 88 Heart rate respiratory rate E&M - 9279-1 26 /min Resp rate temperature E&M 97.8 [degF] Body temperature weight E&M - 3141-9 308 [lb_av] Weight Measured blood pressure, diastolic - 8462-4 87 mm[Hg] BP [place] blood pressure, systolic - 8480-6 129 mm[Hg] BP sys height E&M - 8302-2 72 [in_us] Bdy height pulse rate E&M - 8867-4 125 /min Heart rate weight E&M - 3141-9 312.80 [lb_av] Weight Measured blood pressure, diastolic - 8462-4 92 mm[Hg] BP [place] blood pressure, systolic - 8480-6 137 mm[Hg] BP sys height E&M - 8302-2 72 [in_us] Bdy height pulse rate E&M - 8867-4 99 /min Heart rate weight E&M - 3141-9 312.50 [lb_av] Weight Measured blood pressure, diastolic, second observation 91 mm[Hg] BP [place] blood pressure, diastolic - 8462-4 91 mm[Hg] BP [place] blood pressure, systolic, second observation 136 mm[Hg] BP sys blood pressure, systolic - 8480-6 136 mm[Hg] BP sys height E&M - 8302-2 72 [in_us] Bdy height pulse rate E&M - 8867-4 107 /min Heart rate temperature E&M 98.2 [degF] Body temperature weight E&M - 3141-9 313 [lb_av] Weight Measured blood pressure, diastolic - 8462-4 92 mm[Hg] BP [place] blood pressure, systolic - 8480-6 126 mm[Hg] BP sys height E&M - 8302-2 72 [in_us] Bdy height pulse rate E&M - 8867-4 82 /min Heart rate respiratory rate E&M - 9279-1 17 /min Resp rate temperature E&M 98.8 [degF] Body temperature weight E&M - 3141-9 310.20 [lb_av] Weight Measured blood pressure, diastolic - 8462-4 85 mm[Hg] BP [place] blood pressure, systolic - 8480-6 137 mm[Hg] BP sys height E&M - 8302-2 72 [in_us] Bdy height pulse rate E&M - 8867-4 94 /min Heart rate respiratory rate E&M - 9279-1 21 /min Resp rate temperature E&M 98.2 [degF] Body temperature weight E&M - 3141-9 318.60 [lb_av] Weight Measured blood pressure, diastolic - 8462-4 77 mm[Hg] BP [place] blood pressure, systolic - 8480-6 118 mm[Hg] BP sys height E&M - 8302-2 72 [in_us] Bdy height pulse rate E&M - 8867-4 106 /min Heart rate respiratory rate E&M - 9279-1 24 /min Resp rate temperature E&M 98.5 [degF] Body temperature weight E&M - 3141-9 308.80 [lb_av] Weight Measured blood pressure, diastolic - 8462-4 86 mm[Hg] BP [place] blood pressure, systolic - 8480-6 127 mm[Hg] BP sys height E&M - 8302-2 72 [in_us] Bdy height pulse rate E&M - 8867-4 73 /min Heart rate respiratory rate E&M - 9279-1 18 /min Resp rate temperature E&M 97.9 [degF] Body temperature weight E&M - 3141-9 315 [lb_av] Weight Measured Diagnostic Results Date Name Value Unit Range Description Lab Report: TSH+Free T4, Comp. Metabolic Panel (14), Lipid Panel, Hemogl ... - Chemistry sodium, serum 134 mmol/L 688-621 9398/09/07 thyroid stimulating hormone, serum 0.989 u[iU]/mL 0.450-4.500 very low density lipoproteins 60 mg/dL 5-40 carbon dioxide, venous blood 22 mmol/L 20-29 chloride, serum 97 mmol/L 96-106 triglyceride, serum, fasting 298 mg/dL 0-149 calcium, serum 10.3 mg/dL 8.7-10.2 urea nitrogen, blood 15 mg/dL 6-24 alanine aminotransferase (SGPT), serum 50 U/L 0-44 protein, total, serum 7.2 g/dL 6.0-8.5 alkaline phosphatase, serum 67 U/L 39-117 LDL cholesterol, serum 89 mg/dL 0-99 urea nitrogen/creatinine ratio, serum 14 9-20 hemoglobin A1C, blood, as % of total hemoglobin 7.5 % 4.8-5.6 HDL cholesterol, serum 53 mg/dL >39 Lab Report: TSH+Free T4, Comp. Metabolic Panel (14), Lipid Panel, Hemogl ... - Genetics/fertility eGFR if 97 mL/min/1.73m2 >59 Lab Report: TSH+Free T4, Comp. Metabolic Panel (14), Lipid Panel, Hemogl ... - Chemistry thyroxine, serum, free 1.16 ng/dL 0.82-1.77 globulin, serum 2.5 1.5-4.5 albumin/globulin ratio, serum 1.9 1.2-2.2 creatinine, serum 1.06 mg/dL 0.76-1.27 Estimated Glomerular Filtration Rate (calc) 84 mL/min/1.73m2 >59 cholesterol, serum 202 mg/dL 889-770 3645/09/07 bilirubin, serum, total 0.3 mg/dL 0.0-1.2 Office Visit: Acute Visit rm 7 - Chemistry blood glucose, random 244 mg/dL Lab Report: TSH+Free T4, Comp. Metabolic Panel (14), Lipid Panel, Hemogl ... - Chemistry aspartate aminotransferase (SGOT), serum 32 U/L 0-40 potassium, serum 4.6 mmol/L 3.5-5.2 albumin, serum 4.7 g/dL 3.5-5.5 Encounters Date Encounter Provider Code Facility 15:34:44 PATTERN DUPLICATOR Est Patient Exp Problem - 23911 Lele Suárez MD CPT-11176 [facility] 15:35:27 PATTERN DUPLICATOR Est Patient Exp Problem - 95472 Juliann Worley MD (res) CPT-73243 [facility] 15:12:46 CDT Est Patient Exp Problem - 29022 Lele Suárez MD CPT-83346 [facility] 13:08:51 CDT Est Patient Detailed - 37517 Lele Suárez MD CPT-83917 [facility] 23:10:36 CDT Est Patient Detailed - 63102 Paula Clay MD CPT-54067 [facility] 14:28:27 CDT Est Patient Exp Problem - 97497 Oscar Nielson MD (res) CPT-27102 [facility] 15:02:09 CDT Est Patient Exp Problem - 51237 Paula Clay MD CPT-59023 [facility] 10:56:53 CDT New Patient Detailed - 20987 Pepito Boyd MD CPT-82373 [facility] Procedures Code Procedure Name Date Entry Date Standard Description CPT-02972 Glucose Stick 15:55:29 PATTERN DUPLICATOR CPT-42112 Diagnostic evaluation with medical - 71270 13:48:41 CDT
--- OUTSIDE RECORDS SUMMARY | 2018-09-20 13:37 | XMS REPORT | Clinical Summary ---
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 Name Role Phone PCP Unavailable Allergies Not on File Current Medications Not on file Active Problems Not on file Encounters Date Type Specialty Care Team Description 05/24/2017 Emergency Emergency Medicine after 03/03/2017 Social History Tobacco Use Types Packs/Day Years Used Date Never Assessed Sex Assigned at Date Recorded Not on file Last Filed Vital Signs Vital Sign Reading Time Taken Blood Pressure 126/82 05/24/2017 7:47 PM CDT Pulse 66 05/24/2017 7:47 PM CDT Temperature 36.9 C (98.5 F) 05/24/2017 7:47 PM CDT Respiratory Rate 18 05/24/2017 7:47 PM CDT Oxygen Saturation 98% 05/24/2017 7:47 PM CDT Inhaled Oxygen - - Concentration Weight - - Height - - Body Mass Index - - Plan of Treatment Health Maintenance Due Date Last Done Comments IMM Influenza Seasonal 05/10/2018May to October (>/=19 yrs) Results * BMP POC (05/24/2017 7:58 PM) Component Value Ref Range CO2 POC 29 21 - 32 mmol/L Chloride POC 100 98 - 107 mmol/L Potassium POC 5.0 3.50 - 5.10 mmol/L Sodium POC 137 136 - 145 mmol/L Glucose POC 138 (H) 74 - 106 mg/dL Urea Nitrogen POC 20 (H) 7 - 18 mg/dL Creatinine POC 1.4 (H) 0.6 - 1.3 mg/dL Calcium Ionized POC 1.22 1.15 - 1.29 mmol/L Hemoglobin POC 15.6 14.0 - 18.0 g/dL Hematocrit POC 46.0 40.0 - 54.0 % GFR, Estimated 55 mL/min/1.73 m2 GFR, Estim, Afr-Am >60 mL/min/1.73 m2 Specimen Performing Laboratory [facility] * TROPONIN I POC (05/24/2017 7:56 PM) Component Value Ref Range Troponin POC 0.00 0.00 - 0.08 ng/mL Specimen Performing Laboratory [facility] * 12 LEAD EKG (05/24/2017 7:52 PM) Component Value Ref Range 12 LEAD EKG FOR [facility] Test Date:2017-05-24 Pat Name: TEJINDER WELSH Department: : Gender: [employer]: [id number] :1970 Requested By: Order Number: Reading MD: Nader Conrad M.D. Measurements Intervals [place] Rate: 61 P:-10 AL: 180QRS :38 QRSD: 115T: 30 QT: 404 QTc:409 Interpretive Statements SINUS RHYTHM INCOMPLETE RIGHT BUNDLE BRANCH BLOCK Electronically Signed On 05-25-17 05:56:28 CDT by Nader Conrad M.D. Specimen Performing Laboratory SMS after 03/03/2017
--- OUTSIDE RECORDS SUMMARY | 2018-09-20 13:37 | XMS REPORT ---
Author Author Admin, [place] Organization [facility] Address [address] [address] Phone Allergies, Adverse Reactions, Alerts Allergy Name [...] Entry Date Provider Comment Standard Description Annotate Wrist pain 719.43 Active Snehal Gutierrez MD Pain in joint involving forearm Dermatitis due to drug reaction 693.0 Active Joe Mcmullen MD Dermatitis due to drugs and medicines taken internally Chronic back pain 724.5 Active Juliann Worley [...] Coronary atherosclerosis of unspecified type of vessel, [place] or graft Diabetes mellitus type II 250.00 [...] Paula Clay MD Allergic rhinitis, cause unspecified Acute right otitis media ICD-382.9 Inactive Bandar Garcia MD R3 Pain in right shoulder ICD-719.41 Inactive Bandar Garcia MD R3 Depression, chronic ICD-311 Inactive Lele Suárez MD Diabetes mellitus, type II ICD-250.00 Inactive Juliann Worley MD (res) Acute right otitis media 382.9 Resolved Snehal Gutierrez MD Unspecified otitis media Pain in right shoulder 719.41 Resolved Snehal Gutierrez MD Pain in joint involving shoulder region Depression, chronic 311 Resolved Lele Suárez MD Depressive disorder, not elsewhere classified Diabetes mellitus, type II 250.00 Resolved Juliann Worley MD (res) Diabetes mellitus without mention of complication, type II or unspecified type, not stated as uncontrolled Medication List Medication Instructions Start Date Stop Date Generic Name NDC Status Provider Patient Instruction LANTUS 100 UNIT/ML SUBCUTANEOUS SOLUTION 42 units sq daily INSULIN GLARGINE 42448013638 Active Snehal Gutierrez MD Active LISINOPRIL 5 MG ORAL TABLET 1 by mouth every day LISINOPRIL 22502916737 Active Snehal Gutierrez MD Active SURE COMFORT PEN NEEDLES 31G X 5 MM use as directed INSULIN PEN NEEDLE 11920297389 Active Snehal Gutierrez MD Active VIIBRYD 40 MG ORAL TABLET Take 1 tablet by mouth daily. VILAZODONE HCL 23483654904 Active Lele Suárez MD Active BD PEN NEEDLE LUZ U/F 32G X 4 MM Please use new needle for pen INSULIN PEN NEEDLE 20574257379 Active Delicia Meraz MD (res) Active ASPIRIN 81 MG ORAL TABLET DELAYED RELEASE 1 by mouth every day ASPIRIN 17679729086 Active Juliann Worley MD (res) Active MECLIZINE HCL 25 MG ORAL TABLET 1 by mouth 3 times a day as needed for dizziness MECLIZINE HCL 14453894359 Active Juliann Worley MD (res) Active DOXEPIN HCL 25 MG ORAL CAPSULE Take 1-2 capsules at bedtime as needed for sleep. DOXEPIN HCL 86955146826 Active Lele Suárez MD Active PAXIL 30 MG ORAL TABLET Take 2 tablets by mouth daily. PAROXETINE HCL 49959352167 Active Lele Suárez MD Active ATORVASTATIN CALCIUM 80 MG ORAL TABLET Take one tablet By Mouth Every Day ATORVASTATIN CALCIUM 85669913373 Active Orestes Carrillo MD (res) Active LORATADINE 10 MG ORAL TABLET 1 By Mouth once a day as needed for allergies LORATADINE 92994242877 Active Paula Clay MD Active METFORMIN HCL 1000 MG ORAL TABLET 1 by mouth twice a day METFORMIN HCL 35538236245 Active Paula Clay MD Active METOPROLOL TARTRATE 25 MG ORAL TABLET 1 by mouth twice a day METOPROLOL TARTRATE 86317374433 Active Orestes Carrillo MD (res) Active PLAVIX 75 MG ORAL TABLET 1 by mouth every day CLOPIDOGREL BISULFATE 38784460448 Active Snehal Gutierrez MD Active DIAZEPAM 10 MG TABS TAKE 1/2 TO 1 TABLET BY MOUTH DAILY NEEDED FOR ANXIETY DIAZEPAM 49735835225 Active Lele Suárez MD Active LANTUS SOLOSTAR 100 UNIT/ML SUBCUTANEOUS SOLUTION PEN-INJECTOR 42 unit sq daily LANTUS SOLOSTAR 100 UNIT/ML SUBCUTANEOUS SOLUTION PEN-INJECTOR INSULIN GLARGINE Inactive AZITHROMYCIN 250 MG ORAL TABLET 2 tablets by mouth on day one then one tablet by mouth each day for a total of 5 days AZITHROMYCIN 250 MG ORAL TABLET 020262 AZITHROMYCIN Inactive CEFDINIR 300 MG ORAL CAPSULE 2 tablets by mouth every day for 10 days CEFDINIR 300 MG ORAL CAPSULE 726759 CEFDINIR Inactive TYLENOL WITH CODEINE #3 300-30 MG ORAL TABLET 1 by mouth every 8 hours as needed TYLENOL WITH CODEINE #3 300-30 MG ORAL TABLET ACETAMINOPHEN-CODEINE Inactive VIIBRYD 20 MG ORAL TABLET Take 1 tablet by mouth daily. VIIBRYD 20 MG ORAL TABLET VILAZODONE HCL Inactive GABITRIL 4 MG ORAL TABLET Take one tablet by mouth twice a day. GABITRIL 4 MG ORAL TABLET 5913526 TIAGABINE HCL Inactive DIVALPROEX SODIUM ER 500 MG ORAL TABLET EXTENDED RELEASE 24 HOUR Takes 3 tablets in the morning and take at bedtime DIVALPROEX SODIUM ER 500 MG ORAL TABLET EXTENDED RELEASE 24 HOUR DIVALPROEX SODIUM Inactive GABAPENTIN 300 MG ORAL CAPSULE take three tablets Every Morning and three tablets take at bedtime GABAPENTIN 300 MG ORAL CAPSULE 454683 GABAPENTIN Inactive GLIPIZIDE 10 MG ORAL TABLET Takes one tablet Twice a Day GLIPIZIDE 10 MG ORAL TABLET 630866 GLIPIZIDE Inactive JANUVIA 100 MG ORAL TABLET 1 tab By Mouth daily JANUVIA 100 MG ORAL TABLET SITAGLIPTIN PHOSPHATE Inactive LISINOPRIL 10 MG ORAL TABLET 1 by mouth every day LISINOPRIL 10 MG ORAL TABLET 749516 LISINOPRIL Inactive NORTRIPTYLINE HCL 25 MG ORAL CAPSULE Take one tablet By Mouth take at bedtime NORTRIPTYLINE HCL 25 MG ORAL CAPSULE 112803 NORTRIPTYLINE HCL Inactive NORTRIPTYLINE HCL 25 MG ORAL CAPSULE Take 2 capsules by mouth at bedtime as needed for sleep. NORTRIPTYLINE HCL 25 MG ORAL CAPSULE 826343 NORTRIPTYLINE HCL Inactive PAROXETINE HCL 20 MG ORAL TABLET Take 3 tablets By Mouth Every Morning PAROXETINE HCL 20 MG ORAL TABLET 5007292 PAROXETINE HCL Inactive PRAZOSIN HCL 2 MG ORAL CAPSULE Take 2 tablets By Mouth take at bedtime PRAZOSIN HCL 2 MG ORAL CAPSULE 285404 PRAZOSIN HCL Inactive TRAZODONE HCL 300 MG ORAL TABLET 1 by mouth every night TRAZODONE HCL 300 MG ORAL TABLET 432024 TRAZODONE HCL Inactive LANTUS SOLOSTAR 100 UNIT/ML SUBCUTANEOUS SOLUTION PEN-INJECTOR 42 unit sq daily INSULIN GLARGINE 51511877064 No Longer Active Snehal Gutierrez MD Active AZITHROMYCIN 250 MG ORAL TABLET 2 tablets by mouth on day one then one tablet by mouth each day for a total of 5 days AZITHROMYCIN 17277777495 No Longer Active Snehal Gutierrez MD Active CEFDINIR 300 MG ORAL CAPSULE 2 tablets by mouth every day for 10 days CEFDINIR 01920066918 No Longer Active Joe Mcmullen MD Active TYLENOL WITH CODEINE #3 300-30 MG ORAL TABLET 1 by mouth every 8 hours as needed ACETAMINOPHEN-CODEINE 09050843066 No Longer Active Snehal Gutiererz MD Active VIIBRYD 20 MG ORAL TABLET Take 1 tablet by mouth daily. VILAZODONE HCL 42342759947 No Longer Active Lele Suárez MD Active GABITRIL 4 MG ORAL TABLET Take one tablet by mouth twice a day. TIAGABINE HCL 95755338185 No Longer Active Lele Suárez MD Active DIVALPROEX SODIUM ER 500 MG ORAL TABLET EXTENDED RELEASE 24 HOUR Takes 3 tablets in the morning and take at bedtime DIVALPROEX SODIUM 60223065482 No Longer Active Lele Suárez MD Active GABAPENTIN 300 MG ORAL CAPSULE take three tablets Every Morning and three tablets take at bedtime GABAPENTIN 16380176440 No Longer Active Lele Suárez MD Active GLIPIZIDE 10 MG ORAL TABLET Takes one tablet Twice a Day GLIPIZIDE 42901896988 No Longer Active Paula Clay MD Active JANUVIA 100 MG ORAL TABLET 1 tab By Mouth daily SITAGLIPTIN PHOSPHATE 09332786525 No Longer Active Snehal Gutierrez MD Active LISINOPRIL 10 MG ORAL TABLET 1 by mouth every day LISINOPRIL 26377709633 No Longer Active Snehal Gutierrez MD Active NORTRIPTYLINE HCL 25 MG ORAL CAPSULE Take 2 capsules by mouth at bedtime as needed for sleep. NORTRIPTYLINE HCL 04704456835 No Longer Active Lele Suárez MD Active NORTRIPTYLINE HCL 25 MG ORAL CAPSULE Take one tablet By Mouth take at bedtime NORTRIPTYLINE HCL 53919314785 No Longer Active Paula Clay MD Active PAROXETINE HCL 20 MG ORAL TABLET Take 3 tablets By Mouth Every Morning PAROXETINE HCL 52534661739 No Longer Active Lele Suárez MD Active PRAZOSIN HCL 2 MG ORAL CAPSULE Take 2 tablets By Mouth take at bedtime PRAZOSIN HCL 54541796186 No Longer Active Juliann Worley MD (res) Active TRAZODONE HCL 300 MG ORAL TABLET 1 by mouth every night TRAZODONE HCL 57372161013 No Longer Active Lele Suárez MD Active Vital Signs Date Name Value Unit Range Description blood pressure, diastolic 79 mm[Hg] BP [place] blood pressure, systolic 118 mm[Hg] BP sys height E&M 72 [in_us] Bdy height pulse rate E&M 82 /min Heart rate respiratory rate E&M 19 /min Resp rate temperature E&M 98.0 [degF] Body temperature weight E&M 305.40 [lb_av] Weight Measured blood pressure, diastolic 87 mm[Hg] BP [place] blood pressure, systolic 119 mm[Hg] BP sys height E&M 72 [in_us] Bdy height pulse rate E&M 96 /min Heart rate respiratory rate E&M 22 /min Resp rate temperature E&M 97.4 [degF] Body temperature weight E&M 302.20 [lb_av] Weight Measured blood pressure, diastolic 85 mm[Hg] BP [place] blood pressure, systolic 138 mm[Hg] BP sys height E&M 72 [in_us] Bdy height pulse rate E&M 97 /min Heart rate weight E&M 300 [lb_av] Weight Measured blood pressure, diastolic 92 mm[Hg] BP [place] blood pressure, systolic 134 mm[Hg] BP sys height E&M 72 [in_us] Bdy height pulse rate E&M 86 /min Heart rate respiratory rate E&M 21 /min Resp rate temperature E&M 97.8 [degF] Body temperature weight E&M 306 [lb_av] Weight Measured blood pressure, diastolic 80 [...] sodium, serum 134 mmol/L 134-144 Lab Report: [id number] 7+Alc-Unbund, Amphetamines Confirmation, Ur, [id number] 7 ... - Toxicology benzodiazepine screen, urine Positive Aewpih=500 Lab Report: TSH+Free T4, Comp. Metabolic Panel (14), Lipid Panel, Hemogl ... - Chemistry thyroid stimulating hormone, serum 0.989 u[iU]/mL 0.450-4.500 Lab Report: [id number] 7+Alc-Unbund, Amphetamines Confirmation, Ur, 276578 7 ... - Toxicology amphetamine screen, urine Negative Bmzfcr=6356 Lab Report: TSH+Free T4, Comp. Metabolic Panel (14), Lipid Panel, Hemogl ... - Chemistry very low density lipoproteins 60 mg/dL 5-40 Lab Report: [id number] 7+Alc-Unbund, Amphetamines Confirmation, Ur, 465930 7 ... - Chemistry cannabinoid screen, urine Negative ng/mL Cutoff=50 Lab Report: TSH+Free T4, Comp. Metabolic Panel (14), Lipid Panel, Hemogl ... - Chemistry carbon dioxide, venous blood 22 mmol/L 20-29 Lab Report: [id number] 7+Alc-Unbund, Amphetamines Confirmation, Ur, 274214 7 ... - Toxicology phencyclidine screen, urine Negative ng/mL Cutoff=25 Lab Report: TSH+Free T4, Comp. Metabolic Panel (14), Lipid Panel, Hemogl ... - Chemistry chloride, serum 97 mmol/L 96-106 triglyceride, serum, fasting 298 mg/dL 0-149 calcium, serum 10.3 mg/dL 8.7-10.2 urea nitrogen, blood 15 mg/dL 6-24 alanine aminotransferase (SGPT), serum 50 U/L 0-44 Office Visit: Acute Visit Rm3 [facility] - Chemistry blood glucose, fasting 177 mg/dL Lab Report: TSH+Free T4, Comp. Metabolic Panel (14), Lipid Panel, Hemogl ... - Chemistry protein, total, serum 7.2 g/dL 6.0-8.5 alkaline phosphatase, serum 67 U/L 39-117 LDL cholesterol, serum 89 mg/dL 0-99 urea nitrogen/creatinine ratio, serum 14 9-20 Office Visit: Adult Follow up Dr. Worley - Chemistry hemoglobin A1C, blood, as % of total hemoglobin 9.3 % Lab Report: [id number] 7+Alc-Unbund, Amphetamines Confirmation, Ur, [id number] 7 ... - Toxicology cocaine, urine Negative Fswydq=362 barbiturates screen, urine Negative Bixgdc=692 Lab Report: TSH+Free T4, Comp. Metabolic Panel [...] serum 1.9 1.2-2.2 cholesterol, serum 202 mg/dL 222-513 9031/09/07 bilirubin, serum, total 0.3 mg/dL 0.0-1.2 Office Visit: Adult Followup rm 2 - Chemistry blood glucose, random 202 mg/dL Lab Report: TSH+Free T4, Comp. Metabolic Panel (14), Lipid Panel, Hemogl ... - Chemistry aspartate aminotransferase (SGOT), serum 32 U/L 0-40 potassium, serum 4.6 mmol/L 3.5-5.2 albumin, serum 4.7 g/dL 3.5-5.5 Lab Report: [id number] 7+Alc-Unbund, Amphetamines Confirmation, Ur, [id number] 7 ... - Toxicology opiates, urine, semiquantitative See Final Results Ibjiph=345 Encounters Date Encounter Provider Code Facility 13:05:06 HVAC PROJECT ENGINEER Est Patient Exp Problem - 44157 Snehal Gutierrez MD CPT-00518 [facility] 11:06:52 HVAC PROJECT ENGINEER Est Patient Detailed - 66393 Snehal Gutierrez MD CPT-37882 [facility] 14:01:37 HVAC PROJECT ENGINEER Est Patient Exp Problem - 24147 Lele Suárez MD CPT-66595 [facility] 16:17:36 HVAC PROJECT ENGINEER Est Patient Exp Problem - 27137 Joe Mcmullen MD CPT-77757 [facility] 15:02:34 HVAC PROJECT ENGINEER Est Patient Exp Problem - 81790 Lele Suárez MD CPT-18179 [facility] 17:20:36 HVAC PROJECT ENGINEER Est Patient Exp Problem - 60101 Delicia Meraz MD (res) CPT-27519 [facility] 16:35:53 HVAC PROJECT ENGINEER Est Patient Exp Problem - 09621 Bandar Garcia MD R3 CPT-92933 [facility] 10:34:23 HVAC PROJECT ENGINEER Est Patient Exp Problem - 77384 Juliann Worley MD (res) CPT-06023 [facility] 15:34:44 HVAC PROJECT ENGINEER Est Patient Exp Problem - 88528 Lele Suárez MD CPT-97700 [facility] 15:35:27 HVAC PROJECT ENGINEER Est Patient Exp Problem - 94677 Juliann Worley MD (res) CPT-91400 [facility] 15:12:46 CDT Est Patient Exp Problem - 50607 Lele Suárez MD CPT-45897 [facility] 13:08:51 CDT Est Patient Detailed - 55550 Lele Suárez MD CPT-71324 [facility] 23:10:36 CDT Est Patient Detailed - 93018 Paula Clay MD CPT-23577 [facility] 14:28:27 CDT Est Patient Exp Problem - 25332 Oscar Nielson MD (res) CPT-22520 [facility] 15:02:09 CDT Est Patient Exp Problem - 68753 Paula Clay MD CPT-89465 [facility] 10:56:53 CDT New Patient Detailed - 06598 Pepito Boyd MD CPT-94398 [facility] Procedures Code Procedure Name Date Entry Date Standard Description CPT-69305 Psychotherapy 45 (38-52*) min - 64207 (with patient and/or family member) 09:39:01 HVAC PROJECT ENGINEER CPT-52845 [facility] Indiv - 93210 14:47:42 HVAC PROJECT ENGINEER CPT-78661 HEMOGLOBIN A1C - In House 10:34:23 HVAC PROJECT ENGINEER CPT-14879 Diagnostic evaluation (no medical) - 64131 08:53:47 HVAC PROJECT ENGINEER CPT-12013 Glucose Stick 15:55:29 HVAC PROJECT ENGINEER CPT-71864 Diagnostic evaluation with medical - 57519 13:48:41 CDT
--- OUTSIDE RECORDS SUMMARY | 2018-09-20 13:37 | XMS REPORT | Clinical Summary ---
Author Author [facility] Organization [facility] Address Unknown Phone Unavailable Care Team Providers Care Staff Genetic Counselor Name Role Phone PCP Unavailable Allergies Not on File Current Medications Not on file Active Problems Not on file Encounters Date Type Specialty Care Team Description 05/24/2017 Emergency Emergency Medicine after 05/03/2017 Social History Tobacco Use Types Packs/Day Years [...] Influenza Seasonal 05/10/2018May to October (>/=19 yrs) Procedures Procedure Name Priority Date/Time Associated Diagnosis Comments BMP POC Routine 05/24/2017 Results for this 7:58 PM CDT procedure are in the results section. TROPONIN I POC Routine 05/24/2017 Results for this 7:56 PM CDT procedure are in the results section. 12 LEAD EKG Routine 05/24/2017 Results for this 7:52 PM CDT procedure are in the results section. after 05/03/2017 Results * BMP POC (05/24/2017 7:58 PM) CO2 POC 29 21 - 32 mmol/L BT MAIN-STATION 1 Chloride POC 100 98 - 107 mmol/L BT MAIN-STATION 1 Potassium POC 5.0 3.50 - 5.10 mmol/L BT MAIN-STATION 1 Sodium POC 137 136 - 145 mmol/L BT MAIN-STATION 1 Glucose POC 138 (H) 74 - 106 mg/dL BT MAIN[facility]ST[facility] 1 Urea Nitrogen POC 20 (H) 7 - 18 mg/dL BT [facility]IN[facility]ATION 1 Creatinine POC 1.4 (H) 0.6 - 1.3 mg/dL BT MAIN-STATION 1 Calcium Ionized POC 1.22 1.15 - 1.29 mmol/L BT MAIN-STATION 1 Hemoglobin POC 15.6 14.0 - 18.0 g/dL BT MAIN-STATION 1 Hematocrit POC 46.0 40.0 - 54.0 % BT MAIN-STATION 1 GFR, Estimated 55 mL/min/1.73 m2 BT MAIN-STATION 1 GFR, Estim, Afr-Am >60 mL/min/1.73 m2 BT MAIN-STATION 1 Performing Organization Address City/State/[employer] Phone Number MISYS [facility] 1 * TROPONIN I POC (05/24/2017 7:56 PM) Troponin POC 0.00 0.00 - 0.08 ng/mL BT MAIN-STATION 1 Performing Organization Address City/[facility]/[employer] Phone Number [facility]-ST[facility] 1 * 12 LEAD EKG (05/24/2017 7:52 PM) 12 LEAD EKG FOR [facility] Test Date:2017-05-24 Pat Name: TEJINDER WELSH Department: Room: Gender: M 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 Measurements Intervals [place] Rate: 61 P:-10 SC: 180 QRS: 38 QRSD: 115 T: 30 QT: 404 QTc:409 Interpretive Statements SINUS RHYTHM INCOMPLETE RIGHT BUNDLE BRANCH BLOCK Electronically Signed On 05-25-17 05:56:28 CDT by Nader Conrad M.D. Performing Organization Address City/State/[employer] Phone Number [facility] after 05/03/2017
--- OUTSIDE RECORDS SUMMARY | 2018-09-20 13:37 | XMS REPORT | Clinical Summary ---
Author Author [facility] Organization [facility] Address Unknown Phone Unavailable Care Team Providers Care Outreach Director Name Role Phone PCP Unavailable Allergies Not on File Current Medications Not on file Active Problems Not on file Encounters Date Type Specialty Care Team Description 05/24/2017 Emergency Emergency Medicine after 05/14/2017 Social History Tobacco Use Types Packs/Day Years [...] procedure are in the results section. after 05/14/2017 Results * BMP POC (05/24/2017 7:58 PM) [...] m2 BT MAIN-STATION 1 Performing Organization Address City/State/[employer] Phone Number MISYS BT MAIN-STATION 1 * TROPONIN I POC (05/24/2017 7:56 PM) Troponin POC 0.00 0.00 - 0.08 ng/mL BT MAIN-STATION 1 Performing Organization Address City/[facility]/[employer] Phone Number MISYS BT MAIN-STATION 1 * 12 LEAD EKG (05/24/2017 7:52 PM) 12 LEAD EKG FOR [facility] Test Date:2017-05-24 Pat Name: TEJINDER WELSH Department: Room: Gender: M 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 Measurements Intervals [place] Rate: 61 P:-10 [place]: 180 QRS: 38 QRSD: 115 T: 30 QT: 404 QTc:409 Interpretive Statements SINUS RHYTHM INCOMPLETE RIGHT BUNDLE BRANCH BLOCK Electronically Signed On 05-25-17 05:56:28 CDT by Nader Conrad M.D. Performing Organization Address City/State/[employer] Phone Number [facility] after 05/14/2017
--- OUTSIDE RECORDS SUMMARY | 2018-09-20 13:37 | XMS REPORT | Clinical Summary ---
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 Measurements Intervals [place] Rate: 61 P:-10 OK: 180QRS :38 QRSD: 115T: 30 QT: 404 QTc:409 Interpretive Statements SINUS RHYTHM INCOMPLETE RIGHT BUNDLE BRANCH BLOCK Electronically Signed On 05-25-17 05:56:28 CDT by Nader Conrad M.D. Specimen Performing Laboratory SMS after 02/27/2017
--- OUTSIDE RECORDS SUMMARY | 2018-09-20 13:37 | XMS REPORT ---
Author Author Admin, Stigler Organization [facility] Address [address] [address] Phone Allergies, Adverse Reactions, Alerts Allergy Name [...] Acute right otitis media 382.9 Active Thalia SousaORoldan Unspecified otitis media Pain in right shoulder [...] Coronary atherosclerosis of unspecified type of vessel, [place] or graft Diabetes mellitus type II 250.00 [...] SOLUTION 42 units sq daily INSULIN GLARGINE 65181696248 Active Snehal Gutierrez MD Active LANTUS SOLOSTAR 100 UNIT/ML SUBCUTANEOUS SOLUTION PEN-INJECTOR 42 unit sq daily INSULIN GLARGINE 81795283907 Active Snehal Gutierrez MD Active LISINOPRIL 5 MG ORAL TABLET 1 by mouth every day LISINOPRIL 44303446583 Active Snehal Gutierrez MD Active SURE COMFORT PEN NEEDLES 31G X 5 MM use as directed INSULIN PEN NEEDLE 12531205763 Active Snehal Gutierrez MD Active VIIBRYD 40 MG ORAL TABLET Take 1 tablet by mouth daily. VILAZODONE HCL 10099509027 Active Lele Suárez MD Active AZITHROMYCIN 250 MG ORAL TABLET 2 tablets by mouth on day one then one tablet by mouth each day for a total of 5 days AZITHROMYCIN 29044412388 Active Joe Mcmullen MD Active BD PEN NEEDLE LUZ U/F 32G X 4 MM Please use new needle for pen INSULIN PEN NEEDLE 99364770244 Active Delicia Meraz MD (res) Active TYLENOL WITH CODEINE #3 300-30 MG ORAL TABLET 1 by mouth every 8 hours as needed ACETAMINOPHEN-CODEINE 61254607516 Active Bandar Garcia MD R3 Active ASPIRIN 81 MG ORAL TABLET DELAYED RELEASE 1 by mouth every day ASPIRIN 85338272539 Active Juliann Worley MD (res) Active MECLIZINE HCL 25 MG ORAL TABLET 1 by mouth 3 times a day as needed for dizziness MECLIZINE HCL 83689230843 Active Juliann Worley MD (res) Active DOXEPIN HCL 25 MG ORAL CAPSULE Take 1-2 capsules at bedtime as needed for sleep. DOXEPIN HCL 21409587967 Active Lele Suárez MD Active PAXIL 30 MG ORAL TABLET Take 2 tablets by mouth daily. PAROXETINE HCL 47839089567 Active Lele Suárez MD Active ATORVASTATIN CALCIUM 80 MG ORAL TABLET Take one tablet By Mouth Every Day ATORVASTATIN CALCIUM 41582436009 Active Orestes Carrillo MD (res) Active JANUVIA 100 MG ORAL TABLET 1 tab By Mouth daily SITAGLIPTIN PHOSPHATE 94924317468 Active Juliann Worley MD (res) Active LISINOPRIL 10 MG ORAL TABLET 1 by mouth every day LISINOPRIL 23320577612 Active Paula Clay MD Active LORATADINE 10 MG ORAL TABLET 1 By Mouth once a day as needed for allergies LORATADINE 08746475593 Active Paula Clay MD Active METFORMIN HCL 1000 MG ORAL TABLET 1 by mouth twice a day METFORMIN HCL 17874630744 Active Paula Clay MD Active METOPROLOL TARTRATE 25 MG ORAL TABLET 1 by mouth twice a day METOPROLOL TARTRATE 62475792263 Active Orestes Carrillo MD (res) Active PLAVIX 75 MG ORAL TABLET 1 by mouth every day CLOPIDOGREL BISULFATE 15131192623 Active Snehal Gutierrez MD Active DIAZEPAM 10 MG TABS TAKE 1/2 TO 1 TABLET BY MOUTH DAILY NEEDED FOR ANXIETY DIAZEPAM 65463613918 Active Lele Suárze MD Active CEFDINIR 300 MG ORAL CAPSULE 2 tablets by mouth every day for 10 days CEFDINIR 300 MG ORAL CAPSULE 495831 CEFDINIR Inactive VIIBRYD 20 MG ORAL TABLET Take 1 tablet by mouth daily. VIIBRYD 20 MG ORAL TABLET VILAZODONE HCL Inactive GABITRIL 4 MG ORAL TABLET Take one tablet by mouth twice a day. GABITRIL 4 MG ORAL TABLET 6069109 TIAGABINE HCL Inactive DIVALPROEX SODIUM ER 500 MG ORAL TABLET EXTENDED RELEASE 24 HOUR Takes 3 tablets in the morning and take at bedtime DIVALPROEX SODIUM ER 500 MG ORAL TABLET EXTENDED RELEASE 24 HOUR DIVALPROEX SODIUM Inactive GABAPENTIN 300 MG ORAL CAPSULE take three tablets Every Morning and three tablets take at bedtime GABAPENTIN 300 MG ORAL CAPSULE 153147 GABAPENTIN Inactive GLIPIZIDE 10 MG ORAL TABLET Takes one tablet Twice a Day GLIPIZIDE 10 MG ORAL TABLET 524444 GLIPIZIDE Inactive NORTRIPTYLINE HCL 25 MG ORAL CAPSULE Take one tablet By Mouth take at bedtime NORTRIPTYLINE HCL 25 MG ORAL CAPSULE 683300 NORTRIPTYLINE HCL Inactive NORTRIPTYLINE HCL 25 MG ORAL CAPSULE Take 2 capsules by mouth at bedtime as needed for sleep. NORTRIPTYLINE HCL 25 MG ORAL CAPSULE 740911 NORTRIPTYLINE HCL Inactive PAROXETINE HCL 20 MG ORAL TABLET Take 3 tablets By Mouth Every Morning PAROXETINE HCL 20 MG ORAL TABLET 7023317 PAROXETINE HCL Inactive PRAZOSIN HCL 2 MG ORAL CAPSULE Take 2 tablets By Mouth take at bedtime PRAZOSIN HCL 2 MG ORAL CAPSULE 997280 PRAZOSIN HCL Inactive TRAZODONE HCL 300 MG ORAL TABLET 1 by mouth every night TRAZODONE HCL 300 MG ORAL TABLET 590307 TRAZODONE HCL Inactive CEFDINIR 300 MG ORAL CAPSULE 2 tablets by mouth every day for 10 days CEFDINIR 58641241869 No Longer Active Joe Mcmullen MD Active VIIBRYD 20 MG ORAL TABLET Take 1 tablet by mouth daily. VILAZODONE HCL 93001972277 No Longer Active Lele Suárez MD Active GABITRIL 4 MG ORAL TABLET Take one tablet by mouth twice a day. TIAGABINE HCL 83369288595 No Longer Active Lele Suárez MD Active DIVALPROEX SODIUM ER 500 MG ORAL TABLET EXTENDED RELEASE 24 HOUR Takes 3 tablets in the morning and take at bedtime DIVALPROEX SODIUM 62420102755 No Longer Active Lele Suárez MD Active GABAPENTIN 300 MG ORAL CAPSULE take three tablets Every Morning and three tablets take at bedtime GABAPENTIN 35132961509 No Longer Active Lele Suárez MD Active GLIPIZIDE 10 MG ORAL TABLET Takes one tablet Twice a Day GLIPIZIDE 20562495567 No Longer Active Paula Clay MD Active NORTRIPTYLINE HCL 25 MG ORAL CAPSULE Take 2 capsules by mouth at bedtime as needed for sleep. NORTRIPTYLINE HCL 87052063711 No Longer Active Lele Suárez MD Active NORTRIPTYLINE HCL 25 MG ORAL CAPSULE Take one tablet By Mouth take at bedtime NORTRIPTYLINE HCL 48982323978 No Longer Active Paula Clay MD Active PAROXETINE HCL 20 MG ORAL TABLET Take 3 tablets By Mouth Every Morning PAROXETINE HCL 07104366032 No Longer Active Lele Suárez MD Active PRAZOSIN HCL 2 MG ORAL CAPSULE Take 2 tablets By Mouth take at bedtime PRAZOSIN HCL 52668731382 No Longer Active Juliann Worley MD (res) Active TRAZODONE HCL 300 MG ORAL TABLET 1 by mouth every night TRAZODONE HCL 68721639086 No Longer Active Lele Suárez MD Active Vital Signs Date Name Value Unit Range Description blood pressure, diastolic 87 mm[Hg] BP [place] [...] sodium, serum 134 mmol/L 134-144 Lab Report: [id number] 7+Alc-Unbund, Amphetamines Confirmation, Ur, 695756 7 ... - Toxicology benzodiazepine screen, urine Positive Cicvao=782 Lab Report: TSH+Free T4, Comp. Metabolic Panel (14), Lipid Panel, Hemogl ... - Chemistry thyroid stimulating hormone, serum 0.989 u[iU]/mL 0.450-4.500 Lab Report: [id number] 7+Alc-Unbund, Amphetamines Confirmation, Ur, 150456 7 ... - Toxicology amphetamine screen, urine Negative Bhtyjf=0117 Lab Report: TSH+Free T4, Comp. Metabolic Panel (14), Lipid Panel, Hemogl ... - Chemistry very low density lipoproteins 60 mg/dL 5-40 Lab Report: [id number] 7+Alc-Unbund, Amphetamines Confirmation, Ur, 787498 7 ... - Chemistry cannabinoid screen, urine Negative ng/mL Cutoff=50 Lab Report: TSH+Free T4, Comp. Metabolic Panel (14), Lipid Panel, Hemogl ... - Chemistry carbon dioxide, venous blood 22 mmol/L 20-29 Lab Report: [id number] 7+Alc-Unbund, Amphetamines Confirmation, Ur, 333153 7 ... - Toxicology phencyclidine screen, urine [...] of total hemoglobin 9.3 % Lab Report: [id number] 7+Alc-Unbund, Amphetamines Confirmation, Ur, 512635 7 ... - Toxicology cocaine, urine Negative Bxyhwd=732 barbiturates screen, urine Negative Qkbkvf=376 Lab Report: TSH+Free T4, Comp. Metabolic Panel (14), Lipid Panel, Hemogl ... - Chemistry HDL cholesterol, serum 53 mg/dL >39 Lab Report: TSH+Free T4, Comp. Metabolic Panel (14), Lipid Panel, Hemogl ... - Genetics/fertility eGFR if 97 mL/min/1.73m2 >59 Lab Report: TSH+Free T4, Comp. Metabolic Panel (14), Lipid Panel, Hemogl ... - Chemistry thyroxine, serum, free 1.16 ng/dL 0.82-1.77 globulin, serum 2.5 1.5-4.5 Estimated Glomerular Filtration Rate (calc) 84 mL/min/1.73m2 >59 creatinine, serum 1.06 mg/dL 0.76-1.27 albumin/globulin ratio, serum 1.9 1.2-2.2 cholesterol, serum 202 mg/dL 652-224 3339/09/07 bilirubin, serum, total 0.3 mg/dL 0.0-1.2 Office Visit: Adult Followup rm 2 - Chemistry blood glucose, random 202 mg/dL Lab Report: TSH+Free T4, Comp. Metabolic Panel (14), Lipid Panel, Hemogl ... - Chemistry aspartate aminotransferase (SGOT), serum 32 U/L 0-40 potassium, serum 4.6 mmol/L 3.5-5.2 albumin, serum 4.7 g/dL 3.5-5.5 Lab Report: [id number] 7+Alc-Unbund, Amphetamines Confirmation, Ur, 100656 7 ... - Toxicology opiates, urine, semiquantitative See Final Results Ycrind=146 Encounters Date Encounter Provider Code Facility 11:06:52 PUTTY WORKER Est Patient Detailed - 92367 Snehal Gutierrez MD CPT-28320 [facility] 14:01:37 PUTTY WORKER Est Patient Exp Problem - 08160 Lele Suárez MD CPT-98139 [facility] 16:17:36 PUTTY WORKER Est Patient Exp Problem - 63704 Joe Mcmullen MD CPT-43894 [facility] 15:02:34 PUTTY WORKER Est Patient Exp Problem - 65872 Lele Suárez MD CPT-18494 [facility] 17:20:36 PUTTY WORKER Est Patient Exp Problem - 64842 Delicia Meraz MD (res) CPT-00502 [facility] 16:35:53 PUTTY WORKER Est Patient Exp Problem - 52712 Bandar Garcia MD R3 CPT-14521 [facility] 10:34:23 PUTTY WORKER Est Patient Exp Problem - 37187 Juliann Worley MD (res) CPT-14431 [facility] 15:34:44 PUTTY WORKER Est Patient Exp Problem - 69807 Lele Suárez MD CPT-39581 [facility] 15:35:27 PUTTY WORKER Est Patient Exp Problem - 43381 Juliann Worley MD (res) CPT-89982 [facility] 15:12:46 CDT Est Patient Exp Problem - 01592 Lele Suárez MD CPT-28444 [facility] 13:08:51 CDT Est Patient Detailed - 07370 Lele Suárez MD CPT-22691 [facility] 23:10:36 CDT Est Patient Detailed - 93618 Paula Clay MD CPT-12575 [facility] 14:28:27 CDT Est Patient Exp Problem - 83927 Oscar Nielson MD (res) CPT-40792 [facility] 15:02:09 CDT Est Patient Exp Problem - 32589 Paula Clay MD CPT-11574 [facility] 10:56:53 CDT New Patient Detailed - 16995 Pepito Boyd MD CPT-24372 [facility] Procedures Code Procedure Name Date Entry Date Standard Description CPT-94074 Psychotherapy 45 (38-52*) min - 42917 (with patient and/or family member) 09:39:01 PUTTY WORKER CPT-75768 Health & Behavior [employer] Indiv - 68236 14:47:42 PUTTY WORKER CPT-45297 HEMOGLOBIN A1C - In House 10:34:23 PUTTY WORKER CPT-36074 Diagnostic evaluation (no medical) - 65015 08:53:47 PUTTY WORKER CPT-47314 Glucose Stick 15:55:29 PUTTY WORKER CPT-90566 Diagnostic evaluation with medical - 63819 13:48:41 CDT
--- OUTSIDE RECORDS SUMMARY | 2018-09-20 13:37 | XMS REPORT | Clinical Summary ---
Author Author [facility] Organization [facility] Address Unknown Phone Unavailable Care Team Providers Care Station Supervisor Name Role Phone PCP Unavailable Allergies Not on File Current Medications Not on file Active Problems Not on file Encounters Date Type Specialty Care Team Description 05/24/2017 Emergency Emergency Medicine after 04/29/2017 Social History Tobacco Use Types Packs/Day Years [...] procedure are in the results section. 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 Measurements Intervals [place] Rate: 61 P:-10 MT: 180 QRS: 38 QRSD: 115 T: 30 QT: 404 QTc:409 Interpretive Statements SINUS RHYTHM INCOMPLETE RIGHT BUNDLE BRANCH BLOCK Electronically Signed On 05-25-17 05:56:28 CDT by Nader Conrad M.D. Performing Organization Address City/State/[employer] Phone Number [facility] after 04/29/2017
--- OUTSIDE RECORDS SUMMARY | 2018-09-20 13:37 | XMS REPORT | Clinical Summary ---
Author Author [facility] Organization [facility] Address Unknown Phone Unavailable Care Team Providers Care Mop Man Name Role Phone PCP Unavailable Allergies Not on File Current Medications Not on file Active Problems Not on file Encounters Date Type Specialty Care Team Description 05/24/2017 Emergency Emergency Medicine after 04/10/2017 Social History Tobacco Use Types Packs/Day Years [...] procedure are in the results section. 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 Measurements Intervals [place] Rate: 61 P:-10 [place]: 180 QRS: 38 QRSD: 115 T: 30 QT: 404 QTc:409 Interpretive Statements SINUS RHYTHM INCOMPLETE RIGHT BUNDLE BRANCH BLOCK Electronically Signed On 05-25-17 05:56:28 CDT by Nader Conrad M.D. Performing Organization Address City/State/[employer] Phone Number [facility] after 04/10/2017
--- OUTSIDE RECORDS SUMMARY | 2018-09-20 13:38 | XMS REPORT | Summary of Care ---
Author Author [facility] Organization [facility] Address Unknown Phone Unavailable Encounter ALL Garcia(BETZAIDA) [id number] Date(s): 11/30/16 - 12/01/16 [facility] [address] [facility] [employer] provided by [facility] [place] [address]- Discharge Disposition: Home or Self Care Attending Physician: Parveen Johnson MD Admitting Physician: Parveen Johnson MD Referring Physician: Judson Liao MD Vital Signs 1 2 3 Most recent to oldest [Reference Range]: 182.88 cm (11/30/16 11:58 AM) Height 98.2 DegF (12/01/16 5:02 PM) 97.9 DegF (12/01/16 4:00 AM) 97.1 DegF (12/01/16 12:00 AM) Temperature Oral [96.4-99.1 DegF] 129/75 mmHg (12/01/16 5:00 PM) 129/88 mmHg (12/01/16 2:00 PM) 99/67 mmHg (12/01/16 7:00 AM) Blood Pressure [90-140/60-90 mmHg] 18 BRMIN (12/01/16 5:00 PM) 20 BRMIN (12/01/16 2:00 PM) 18 BRMIN (12/01/16 7:00 AM) Respiratory Rate [14-20 BRMIN] 112.6 kg (11/30/16 11:58 AM) Weight 33.67 m2 (11/30/16 11:58 AM) Body Mass Index Problem List Condition Effective Dates Status Health Status Informant Chest Resolved pain(Confirmed) Hypertension(Confirm Resolved ed) PTSD (post-traumatic Resolved stress disorder)(Confirmed) Allergies, Adverse Reactions, Alerts Substance Reaction Severity Status penicillins Active Toradol Active Medications aspirin 325 mg, Route: PO, ONCE, Dosing Weight 112.6, kg, Start date: 11/30/16 14:22:00 CDT, Stop date: 11/30/16 14:22:00 CDT Start Date: 11/30/16 Stop Date: 11/30/16 Status: Discontinued aspirin 81 mg tablet, chewable 81 mg=1 tab, PO, Daily, tab, 0 Refill(s) Start Date: 11/30/16 Status: Ordered aspirin 81 mg tablet, chewable 81 mg, 1 tab, Route: PO, Drug form: CHEWTAB, Daily, Dosing Weight 112.6, kg, Sta rt date: 12/01/16 9:00:00 CDT, Duration: 30 day, Stop date: 12/30/16 9:00:00 CDT Notes: Take with food. Start Date: 12/01/16 Stop Date: 12/01/16 Status: Discontinued atorvastatin 80 mg, 1 tab, Route: PO, Drug form: TAB, Bedtime, Dosing Weight 112.6, kg, Start date: 11/30/16 21:00:00 CDT, Duration: 30 day, Stop date: 12/29/16 21:00:00 CDT Notes: Same as Lipitor Start Date: 11/30/16 Stop Date: 12/01/16 Status: Discontinued atorvastatin 80 mg oral tablet 80 mg=1 tab, PO, Bedtime, # 30 tab, 0 Refill(s) Start Date: 12/01/16 Stop Date: 12/31/16 Status: Ordered Heparin - one time bolus for ACS 4,000 unit, 4 mL, Route: IVP, Drug form: INJ, ONCE, Dosing Weight 112.6, kg, Maricruz ority: STAT, Start date: 11/30/16 13:59:00 CDT, Stop date: 11/30/16 13:59:00 CDT Start Date: 11/30/16 Stop Date: 11/30/16 Status: Completed Heparin 30 unit/kg Bolus (Heparin Dosing Weight) Route: IVP, PRN, 2,700 unit, 2.7 mL, Drug form: INJ, PRN, Heparin Protocol, Star t date: 11/30/16 13:59:00 CDT Stop date: 12/30/16 13:58:00 CDT, 30 day Start Date: 11/30/16 Stop Date: 12/01/16 Status: Discontinued Heparin 60 unit/kg Bolus (Heparin Dosing Weight) Route: IVP, PRN, 4,000 unit, 4 mL, Drug form: INJ, PRN, Heparin Protocol, Start date: 11/30/16 13:59:00 CDT Stop date: 12/30/16 13:58:00 CDT, 30 day Start Date: 11/30/16 Stop Date: 12/01/16 Status: Discontinued heparin additive 25,000 unit [12 unit/kg/hr] + Premix Diluent Dextrose 5% 500 mL 500 mL, Rate: 21.98 ml/hr, Infuse over: 22.7 hr, Route: IV, Dosing Weight 91.6 k g, Total Volume: 500 mL, Start date: 11/30/16 13:59:00 CDT, Duration: 30 day, St op date: 12/30/16 13:58:00 CDT Start Date: 11/30/16 Stop Date: 12/01/16 Status: Discontinued Imdur 30 mg, Route: PO, Drug form: ERTAB, QAM, Dosing Weight 112.6, kg, Start date: 9:00:00 CDT, Duration: 30 day, Stop date: 12/31/16 9:00:00 CDT Start Date: 12/02/16 Stop Date: 12/01/16 Status: Canceled Lexapro 10 mg, 1 tab, Route: PO, Drug form: TAB, BID, Dosing Weight 112.6, kg, Start jihan e: 11/30/16 17:00:00 CDT, Duration: 30 day, Stop date: 12/30/16 9:00:00 CDT Notes: (Same as: Lexapro) Start Date: 11/30/16 Stop Date: 12/01/16 Status: Discontinued Lexapro 10 mg oral tablet 10 mg=1 tab, PO, BID, 0 Refill(s) Start Date: 11/30/16 Status: Ordered lisinopril 10 mg, 1 tab, Route: PO, Drug form: TAB, Daily, Dosing Weight 112.6, kg, Start d ate: 12/01/16 9:00:00 CDT, Duration: 30 day, Stop date: 12/30/16 9:00:00 CDT Notes: (Same as: Prinivil, Zestril) Start Date: 12/01/16 Stop Date: 12/01/16 Status: Discontinued lisinopril 10 mg oral tablet 10 mg=1 tab, PO, Daily, # 30 tab, 0 Refill(s) Start Date: 11/30/16 Status: Ordered metoprolol extended release 25 mg, 1 tab, Route: PO, Drug form: ERTAB, Daily, Start date: 12/01/16 9:00:00 C DT, Duration: 30 day, Stop date: 12/30/16 9:00:00 CDT Notes: (Same as: Toprol XL) Do Not Crush Start Date: 12/01/16 Stop Date: 12/01/16 Status: Discontinued metoprolol extended release 25 mg, PO, Daily, 0 Refill(s) Start Date: 11/30/16 Status: Ordered morphine Sulfate 4 mg, 1 mL, Route: IVP, Drug form: INJ, Q6H, Dosing Weight 112.6, kg, PRN Pain S core 7-10, Start date: 11/30/16 15:10:00 CDT, Duration: 30 day, Stop date: 12/30 15:09:00 CDT Notes: (Same as:MORPhine Sulfate) Start Date: 11/30/16 Stop Date: 12/01/16 Status: Discontinued nitroglycerin 0.4 mg sublingual tablet 0.4 mg, 1 tab, Route: SL, Drug form: TAB, PRN, Dosing Weight 112.6, kg, PRN Ches t Pain, Start date: 12/01/16 16:53:00 CDT, Duration: 30 day, Stop date: 12/31/16 16:52:00 CDT Notes: (Same as:Nitroquick, Nitrostat)"Do Not Crush" Sublingual tablet Start Date: 12/01/16 Stop Date: 12/01/16 Status: Discontinued nitroglycerin 100 mg/250ml D5W INJ 100 mg 100 mg, 250 mL, Rate: Titrate, Start Dose: 0.25 microgram/kg/min, Titration: 0.2 microgram/kg/min every 5 minutes, Goal(s): Chest pain and SBP between 100 - 150 mmHg, Max Dose: 3 microgram/kg/min, Route: IV, Dosing Weight 112.6 kg, Total Vo lume: 250,... Notes: (Same as:Tridil) Final conc=0.4 mg/ml. Premix bottle. Start Date: 11/30/16 Stop Date: 12/01/16 Status: Discontinued nortriptyline 75 mg, 3 cap, Route: PO, Drug form: CAP, Daily, Dosing Weight 112.6, kg, Start d ate: 11/30/16 21:00:00 CDT, Duration: 30 day, Stop date: 12/30/16 9:00:00 CDT Notes: (Same as:Pamelor Aventyl) Start Date: 11/30/16 Stop Date: 12/01/16 Status: Discontinued nortriptyline 75 mg oral capsule 75 mg=1 cap, PO, Daily, # 90 cap, 0 Refill(s) Start Date: 11/30/16 Status: Ordered Plavix 300 mg, 1 tab, Route: PO, Drug form: TAB, ONCE, Dosing Weight 112.6, kg, Start d ate: 11/30/16 14:31:00 CDT, Duration: 1 doses or times, Stop date: 11/30/16 14:3 1:00 CDT Notes: ( Same as: Plavix) Start Date: 11/30/16 Stop Date: 11/30/16 Status: Completed Plavix 75 mg, 1 tab, Route: PO, Drug form: TAB, Daily, Dosing Weight 112.6, kg, Start d ate: 12/01/16 9:00:00 CDT, Duration: 30 day, Stop date: 12/30/16 9:00:00 CDT Notes: (Same As: Plavix) Start Date: 12/01/16 Stop Date: 12/01/16 Status: Discontinued Plavix 300 mg, Route: PO, Drug form: TAB, ONCE, Dosing Weight 112.6, kg, Start date: 14:21:00 CDT, Duration: 1 doses or times, Stop date: 11/30/16 14:21:00 CD T Start Date: 11/30/16 Stop Date: 11/30/16 Status: Discontinued pneumococcal 23-valent vaccine 0.5 mL, Route: IM, Drug Form: INJ, Daily, Start date: 12/01/16 9:00:00 CDT, Dura tion: 1 doses or times, Stop date: 12/01/16 9:00:00 CDT Notes: (Same as: Pneumovax 23) Refrigerate Start Date: 12/01/16 Stop Date: 12/01/16 Status: Completed Tylenol 650 mg, 2 tab, Route: PO, Drug form: TAB, Q6H, Dosing Weight 112.6, kg, PRN Pain Score 1-3, Start date: 12/01/16 16:53:00 CDT, Duration: 30 day, Stop date: 12/09 11/24 16:52:00 CDT Notes: Do not exceed 4 gm/day. (Same as: Tylenol) Start Date: 12/01/16 Stop Date: 12/01/16 Status: Discontinued Tylenol 650 mg, 20.3 mL, Route: PO, Drug form: LIQ, ONCE, Dosing Weight 112.6, kg, Start date: 11/30/16 19:04:00 CDT, Stop date: 11/30/16 19:04:00 CDT Notes: Max vjobvkiibinqq=3687rd/day (4 gm/day). (Same as: Tylenol) Start Date: 11/30/16 Stop Date: 11/30/16 Status: Completed Results ELECTROLYTES 1 2 3 Most recent to oldest [Reference Range]: 139 mEq/L (12/01/16 4:05 AM) 140 mEq/L (11/30/16 1:22 PM) Sodium Lvl [135-145 mEq/L] 4.1 mEq/L (12/01/16 4:05 AM) 4.5 mEq/L (11/30/16 1:22 PM) Potassium Lvl [3.5-5.1 mEq/L] 104 mEq/L (12/01/16 4:05 AM) 102 mEq/L (11/30/16 1:22 PM) Chloride Lvl [95-109 mEq/L] 25 mEq/L (12/01/16 4:05 AM) 29 mEq/L (11/30/16 1:22 PM) CO2 [24-32 mEq/L] 14.1 mEq/L (12/01/16 4:05 AM) 13.5 mEq/L (11/30/16 1:22 PM) AGAP [10.0-20.0 mEq/L] CHEM PANEL 1 2 3 Most recent to oldest [Reference Range]: 1.12 mg/dL (12/01/16 4:05 AM) 1.19 mg/dL (11/30/16 1:22 PM) Creatinine Lvl [0.50-1.40 mg/dL] 79 mL/min/1.73m2 1 *NA* (12/01/16 4:05 AM) 73 mL/min/1.73m2 2 *NA* (11/30/16 1:22 PM) eGFR 15 mg/dL (12/01/16 4:05 AM) 15 mg/dL (11/30/16 1:22 PM) BUN [7-22 mg/dL] 85 mg/dL (12/01/16 4:05 AM) 100 mg/dL *HI* (11/30/16 1:22 PM) Glucose Lvl [70-99 mg/dL] 8.9 mg/dL (12/01/16 4:05 AM) 9.3 mg/dL (11/30/16 1:22 PM) Calcium Lvl [8.5-10.5 mg/dL] 2.2 mg/dL (12/01/16 4:05 AM) Magnesium Lvl [1.8-2.4 mg/dL] 1Result Comment: The eGFR is calculated using the [...] from the National Kidney Disease Education Program ( NKDEP) which additionally recommends that when the eGFR is used in patients with extremes of body mass index for purposes of drug dosing, the eGFR should be mul tiplied by the estimated BMI. 2Result Comment: The eGFR is calculated using the [...] from the National Kidney Disease Education Program ( NKDEP) which additionally recommends that when the eGFR is used in patients with extremes of body mass index for purposes of drug dosing, the eGFR should be mul tiplied by the estimated BMI. CARDIAC ENZYMES 1 2 3 Most recent to oldest [Reference Range]: 51 unit/L (11/30/16 9:14 PM) 47 unit/L (11/30/16 5:34 PM) 48 unit/L (11/30/16 1:22 PM) Total CK [12-191 unit/L] <0.010 ng/mL (11/30/16 9:14 PM) <0.010 ng/mL (11/30/16 5:34 PM) <0.010 ng/mL (11/30/16 1:22 PM) Troponin-T [0.000-0.100 ng/mL] <0.02 ng/mL (11/30/16 9:14 PM) <0.02 ng/mL (11/30/16 5:34 PM) <0.02 ng/mL (11/30/16 1:22 PM) Troponin-I [0.00-0.40 ng/mL] DRUG SCREEN 1 2 3 Most recent to oldest [Reference Range]: Negative *NA* (11/30/16 3:30 PM) U Amph Scr [Negative] Negative *NA* (11/30/16 3:30 PM) U Noemi Scr [Negative] Negative *NA* (11/30/16 3:30 PM) U Benzodia Scr [Negative] Negative *NA* (11/30/16 3:30 PM) U Cocaine Scr [Negative] Positive *ABN* (11/30/16 3:30 PM) U Opiate Scr [Negative] Negative *NA* (11/30/16 3:30 PM) U Phencyc Scr [Negative] Negative *NA* (11/30/16 3:30 PM) U Cannab Scr [Negative] See Note (11/30/16 3:30 PM) UDS Note HEMATOLOGY 1 2 3 Most recent to oldest [Reference Range]: 9.0 K/CMM (12/01/16 4:05 AM) 9.0 K/CMM (11/30/16 1:22 PM) WBC [3.7-10.4 K/CMM] 4.68 M/CMM *LOW* (12/01/16 4:05 AM) 4.73 M/CMM (11/30/16 1:22 PM) RBC [4.70-6.10 M/CMM] 14.8 g/dL (12/01/16 4:05 AM) 14.9 g/dL (11/30/16 1:22 PM) Hgb [14.0-18.0 g/dL] 43.3 % (12/01/16 4:05 AM) 43.5 % (11/30/16 1:22 PM) Hct [42.0-54.0 %] 92.5 fL (12/01/16 4:05 AM) 92.0 fL (11/30/16 1:22 PM) MCV [80.0-94.0 fL] 31.5 pg *HI* (12/01/16 4:05 AM) 31.6 pg *HI* (11/30/16 1:22 PM) MCH [27.0-31.0 pg] 34.1 g/dL (12/01/16 4:05 AM) 34.3 g/dL (11/30/16 1:22 PM) MCHC [32.0-36.0 g/dL] 13.7 % (12/01/16 4:05 AM) 13.7 % (11/30/16 1:22 PM) RDW [11.5-14.5 %] 209 K/CMM (12/01/16 4:05 AM) 213 K/CMM (11/30/16 1:22 PM) Platelet [133-450 K/CMM] 6.9 fL *LOW* (12/01/16 4:05 AM) 6.9 fL *LOW* (11/30/16 1:22 PM) MPV [7.4-10.4 fL] 65.5 % (12/01/16 4:05 AM) 71.4 % (11/30/16 1:22 PM) Segs [45.0-75.0 %] 27.0 % (12/01/16 4:05 AM) 21.8 % (11/30/16 1:22 PM) Lymphocytes [20.0-40.0 %] 6.3 % (12/01/16 4:05 AM) 5.8 % (11/30/16 1:22 PM) Monocytes [2.0-12.0 %] 0.6 % (12/01/16 4:05 AM) 0.3 % (11/30/16 1:22 PM) Eosinophils [0.0-4.0 %] 0.6 % (12/01/16 4:05 AM) 0.7 % (11/30/16 1:22 PM) Basophils [0.0-1.0 %] 5.9 K/CMM (12/01/16 4:05 AM) 6.4 K/CMM (11/30/16 1:22 PM) Segs-Bands # [1.5-8.1 K/CMM] 2.4 K/CMM (12/01/16 4:05 AM) 2.0 K/CMM (11/30/16 1:22 PM) Lymphocytes # [1.0-5.5 K/CMM] 0.6 K/CMM (12/01/16 4:05 AM) 0.5 K/CMM (11/30/16 1:22 PM) Monocytes # [0.0-0.8 K/CMM] 0.1 K/CMM (12/01/16 4:05 AM) Eosinophils # [0.0-0.5 K/CMM] 0.1 K/CMM (12/01/16 4:05 AM) 0.1 K/CMM (11/30/16 1:22 PM) Basophils # [0.0-0.2 K/CMM] 13.6 seconds (12/01/16 4:05 AM) 13.3 seconds (11/30/16 2:27 PM) PT [12.0-14.7 seconds] 1.02 (12/01/16 4:05 AM) 0.99 (11/30/16 2:27 PM) INR [0.85-1.17] 45.0 seconds *HI* (12/01/16 4:05 AM) 46.4 seconds *HI* (11/30/16 9:14 PM) 31.1 seconds (11/30/16 2:27 PM) PTT [22.9-35.8 seconds] Immunizations Not Given Vaccine Date Status Refusal Reason pneumococcal 23-valent vaccine 12/01/16 Not Given Patient Refuses Procedures Procedure Date Related Diagnosis Body Site Hernia repair Knee joint operation Wrist reconstruction Social History Social History Type Response Substance Abuse Use: Past. Type: Prescription medications. Recreational Drug Route: Oral. IV drug use: No. Drug use interferes with work/home: Yes. Ready to change: Yes. Household substance abuse concerns: No. Cessation Education Provided: Yes. Smoking Status Smoker, current status unknown; Type: Chewing tobacco; Tobacco use per day: 1; Ready to change: Yes; Exposure to Tobacco Smoke None; Cigarette Smoking Last 365 Days Yes; Reg Smoking Cessation Counseling Yes Assessment and Plan Extracted from: Title: CCU Progress Note Author: Perfecto Singh MD Date: 12/01/16 Impression and Plan 46 yo M PMH HTN, HLD, PTSD, anxiety, MN x3 s/p PCI c/o substernal chest pain/pressure, nausea, SOB, L arm numbness. Transferred here from OSH for concern for ACS. CV #Chest pain - Pt still w/ active CP after nitro and morphine at OSH - Given ASA, 100 mg lovenox at OSH - H/o MN, intermittently takes aspirin - TTE pending - Trop neg x 3 - Aspirin/plavix daily starting tomorrow - Stress test today #HTN - Continue home lisinopril, metoprolol Code: Full Diet: NPO for possible cath Dispo: Pending echo and stress Perfecto Singh MD, MPH Emergency Medicine, PGY-1 # [id number] Extracted from: Title: [facility] History & Physical Author: Jack Núñez MD Date: 11/30/16 Patient: ORIANA MONTILLA## Age: 46 years Sex: Male : 1970 Associated Diagnoses: None Author: Jack Núñez MD Chief Complaint "My chest hurts." History of Present Illness 46 yo M PMH HTN, HLD, PTSD, anxiety, MN x3 s/p PCI c/o substernal chest pain/pressure, nausea, SOB, L arm numbness. Pt felt this way on Thursday night, was relieved w/ 3 nitro. Pt felt this way again while sitting in bed this morning, pain was not relieved by nitro. Says this feels worse than prior MIs. Denies V/D/F. Seen at OSH, transferred here. Pt currently incarcerated, does not get aspirin every day. 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 Review of Systems Constitutional: No fever. Eye: No recent visual problem, No double vision. Ear/Nose/Mouth/Throat: Negative. Respiratory: Shortness of breath, No cough. Cardiovascular: Chest pain, No peripheral edema, No syncope. Gastrointestinal: Nausea, No vomiting, No diarrhea. Genitourinary: No dysuria, No hematuria. Hematology/Lymphatics: Negative. Endocrine: Negative. Immunologic: Negative. Musculoskeletal: No back pain. Integumentary: No rash. Neurologic: Alert and oriented X4. Psychiatric: Negative. Health Status Allergies: No allergies have been recorded., No qualifying data available Current medications: (Selected) Inpatient Medications Ordered pneumococcal 23-valent vaccine: 0.5 mL, IM, Daily Documented Medications Documented Lexapro 10 mg oral tablet: 10 mg, 1 tab, PO, BID, 0 Refill(s) lisinopril 10 mg oral tablet: 10 mg, 1 tab, PO, Daily, 30 tab, 0 Refill(s) metoprolol extended release: 25 mg, PO, Daily, 0 Refill(s) nortriptyline 75 mg oral capsule: 75 mg, 1 cap, PO, Daily, 90 cap, 0 Refill(s), Medications (1) Active Scheduled: (1) pneumococcal 23-polyvalent vaccine SOLN 0.5 mL, IM, Daily Continuous: (0) PRN: (0) Problem list: No qualifying data available Histories Past Medical History: Resolved Hypertension ([id number]): Resolved. Chest pain ([id number]): Resolved. PTSD (post-traumatic stress disorder) ([id number]): Resolved. Family History: COPD Mother Heart attack Father Mother Cardiac arrest Father Procedure history: Knee joint operation ([id number]). Wrist reconstruction ([id number]). Hernia repair ([id number]). Social History Social & Psychosocial Habits Substance Abuse 11/30/2016 Use: Past Type: Prescription medications Route Oral IV drug use: No Has drug use interfered with your work or home life? Yes Ready to change: Yes Concerns about substance abuse in household: No Drug Cessation Education Provided Yes Tobacco 11/30/2016 Use: Smoker, current status un Type: Chewing tobacco Tobacco use per day: 1 Ready to change: Yes Exposure to Tobacco Smoke None Cigarette Smoking Last 365 Days Yes Reg Smoking Cessation Counseling Yes . Physical Examination VS/Measurements Vital Signs (last 24 hrs) Last Charted Temp Oral97.7 DegF (NOV 30 12:00) Heart Rate ApicalL 58bpm (NOV 30:30) Resp Rate 20 BRMIN (NOV 30:) NYN518 mmHg (NOV 30:) DBPH 91mmHg (NOV 30:) Ulszio433.6 kg (NOV 30:58) Upbdji380.88 cm (NOV 30:) BMI33.67 (NOV 30:) General: Alert and oriented, No acute distress. Eye: Pupils are equal, round and reactive to light, Extraocular movements are intact. HENT: Normocephalic. Neck: Supple, Non-tender. Respiratory: Lungs are clear to auscultation, Respirations are non-labored, Breath sounds are equal, Symmetrical chest wall expansion, No chest wall tenderness. Cardiovascular: Normal rate, Regular rhythm, No murmur, Good pulses equal in all extremities, Normal peripheral perfusion, No edema. Gastrointestinal: Soft, Non-tender, Non-distended, Normal bowel sounds. Musculoskeletal Normal range of motion. Integumentary: Warm, Dry, [place], Intact. Neurologic: Alert, Oriented. Cognition and Speech: Oriented, Speech clear and coherent. Psychiatric: Cooperative, Appropriate mood & affect. Review / Management Results review: No qualifying data available. Impression and Plan 46 yo M PMH HTN, HLD, PTSD, anxiety, MN x3 s/p PCI c/o substernal chest pain/pressure, nausea, SOB, L arm numbness. Transferred here from OSH for concern for ACS. CV #Chest pain - Pt still w/ active CP after nitro and morphine at OSH - Given ASA, 100 mg lovenox at OSH - H/o MN, intermittently takes aspirin - TTE pending - Trop <0.034 at OSH, will trend here - EKG w/ no ST/T wave changes - On ACS heparin protocol - Aspirin/plavix daily starting tomorrow #HTN - Continue home lisinopril, metoprolol Code: Full Diet: NPO for possible cath Dispo: Pending further w/u or cath Addendum Case was discussed with the team in detail by Will treat medically for now, trend troponins and plan for stress test in am if trops Carlakiraf negative , Will obtain OSH files regarding prior MIs Say Please obtain TTE today os on 11/30/2016 18:53
--- OUTSIDE RECORDS SUMMARY | 2018-09-20 13:39 | XMS REPORT ---
Author Author [facility] Address Unknown Phone Unavailable Care Team Providers Care Dough Maker Name Role Phone UNKNOWN, REFFERING PP Unavailable Michael Burk Unavailable Unavailable Sorin Pool Unavailable Unavailable OCTAVIO STANTON Unavailable Unavailable BASHIR JIMENEZ Unavailable Unavailable Massimo GREER Unavailable Unavailable Maximus SAENZ Unavailable Unavailable ERIC BRO Unavailable Unavailable BONITA RODRIGES Unavailable Unavailable AURORA GUERRERO Unavailable Unavailable Payers Payer Name Policy Type Policy Number Effective Date Expiration Date Problems This patient has no known problems. Allergies, Adverse Reactions, Alerts Allergy Name Allergy Type Status Severity Reaction(s) Onset Date Inactive Date Treating Clinician Comments ciprofloxacin DA Active SV 2018-09-07 00:00:00 ketorolac tromethamine DA Active WI 2018-09-06 00:00:00 Penicillins DA Active U 2018-09-06 00:00:00 codeine DA Active MO 2018-09-06 00:00:00 hydrocodone DA Active MO 2018-09-06 00:00:00 methylprednisolone DA Active SV 2018-09-06 00:00:00 ketorolac DA Active SV 2018-09-06 00:00:00 ketorolac tromethamine DA Active WI 2018-08-19 00:00:00 Penicillins DA Active U 2018-08-19 00:00:00 codeine DA Active MO 2018-08-19 00:00:00 hydrocodone DA Active MO 2018-08-19 00:00:00 methylprednisolone DA Active SV 2018-08-19 00:00:00 ketorolac DA Active SV 2018-08-19 00:00:00 ketorolac tromethamine DA Active WI 2018-08-17 00:00:00 Penicillins DA Active U 2018-08-17 00:00:00 codeine DA Active MO 2018-08-17 00:00:00 hydrocodone DA Active MO 2018-08-17 00:00:00 methylprednisolone DA Active SV 2018-08-17 00:00:00 ketorolac DA Active SV 2018-08-17 00:00:00 ketorolac tromethamine DA Active WI 2018-08-02 00:00:00 Penicillins DA Active U 2018-08-02 00:00:00 codeine DA Active MO 2018-08-02 00:00:00 hydrocodone DA Active MO 2018-08-02 00:00:00 methylprednisolone DA Active SV 2018-08-02 00:00:00 ketorolac DA Active SV 2018-08-02 00:00:00 ketorolac tromethamine DA Active WI 2018-07-29 00:00:00 Penicillins DA Active U 2018-07-29 00:00:00 codeine DA Active MO 2018-07-29 00:00:00 hydrocodone DA Active MO 2018-07-29 00:00:00 methylprednisolone DA Active SV 2018-07-29 00:00:00 ketorolac DA Active SV 2018-07-29 00:00:00 ketorolac tromethamine DA Active WI 2018-07-27 00:00:00 Penicillins DA Active U 2018-07-27 00:00:00 codeine DA Active MO 2018-07-27 00:00:00 hydrocodone DA Active MO 2018-07-27 00:00:00 methylprednisolone DA Active SV 2018-07-27 00:00:00 ketorolac DA Active SV 2018-07-27 00:00:00 hydrocodone DA Active U 2018-07-20 00:00:00 Penicillins DA Active SV 2018-07-19 00:00:00 codeine DA Active SV 2018-07-19 00:00:00 methylprednisolone DA Active SV 2018-07-19 00:00:00 ketorolac DA Active SV 2018-07-19 00:00:00 ketorolac tromethamine DA Active WI 2018-07-17 00:00:00 Penicillins DA Active U 2018-07-17 00:00:00 morphine DA Active U 2018-07-17 00:00:00 codeine DA Active MO 2018-07-17 00:00:00 hydrocodone DA Active MO 2018-07-17 00:00:00 methylprednisolone DA Active SV 2018-07-17 00:00:00 ketorolac tromethamine DA Active WI 2018-07-11 00:00:00 Penicillins DA Active U 2018-07-11 00:00:00 morphine DA Active U 2018-07-11 00:00:00 codeine DA Active MO 2018-07-11 00:00:00 hydrocodone DA Active MO 2018-07-11 00:00:00 methylprednisolone DA Active SV 2018-07-11 00:00:00 morphine DA Active U 2018-07-09 00:00:00 ketorolac tromethamine DA Active WI 2018-06-29 00:00:00 Penicillins DA Active U 2018-06-29 00:00:00 codeine DA Active MO 2018-06-29 00:00:00 hydrocodone DA Active MO 2018-06-29 00:00:00 methylprednisolone DA Active SV 2018-06-29 00:00:00 acetaminophen DA Active MO 2018-06-29 00:00:00 ketorolac tromethamine DA Active WI 2018-06-13 00:00:00 Penicillins DA Active U 2018-06-13 00:00:00 codeine DA Active MO 2018-06-13 00:00:00 hydrocodone DA Active MO 2018-06-13 00:00:00 acetaminophen DA Active MO 2018-06-13 00:00:00 methylprednisolone DA Active SV 2018-06-13 00:00:00 Penicillins DA Active SV 2018-06-10 00:00:00 codeine DA Active SV 2018-06-10 00:00:00 methylprednisolone DA Active SV 2018-06-10 00:00:00 ketorolac DA Active SV 2018-06-10 00:00:00 ketorolac tromethamine DA Active WI 2018-05-13 00:00:00 Penicillins DA Active U 2018-05-13 00:00:00 codeine DA Active MO 2018-05-13 00:00:00 hydrocodone DA Active MO 2018-05-13 00:00:00 acetaminophen DA Active MO 2018-05-13 00:00:00 methylprednisolone DA Active SV 2018-05-13 00:00:00 ketorolac tromethamine DA Active WI 2018-05-05 00:00:00 Penicillins DA Active U 2018-05-05 00:00:00 codeine DA Active MO 2018-05-05 00:00:00 methylprednisolone DA Active SV 2018-05-05 00:00:00 ketorolac tromethamine DA Active WI 2018-05-04 00:00:00 Penicillins DA Active U 2018-05-04 00:00:00 codeine DA Active MO 2018-05-04 00:00:00 methylprednisolone DA Active 2018-05-04 00:00:00 ketorolac tromethamine DA Active WI 2017-03-21 00:00:00 Penicillins DA Active U 2017-03-21 00:00:00 methylprednisolone DA Active SV 2017-03-21 00:00:00 Medications This patient has no known medications. Encounters Start Date/Time End Date/Time Encounter Type Admission Type Attending [facility] Care Department Encounter ID 2017-04-12 23:48:00 2017-04-12 23:48:00 Emergency E BONITA RODRIGES [facility] MED [id number] Results Test Description Test Time Test Comments Text Results Atomic Results Result Comments COMPREHENSIVE METABOLIC PANEL 2018 17:42:00 SODIUM (test code=NA) 134 mmol/L 134-147 POTASSIUM (test code=K) 4.2 mmol/L 3.4-5.0 CHLORIDE (test code=CL) 101 mmol/L 100-108 CARBON DIOXIDE (test code=CO2) 26 mmol/L 21-32 ANION GAP (test code=GAP) 7.0 GAP calc 4.0-15.0 GLUCOSE (test code=GLU) 342 MG/DL 70-110 BLOOD UREA NITROGEN (test code=BUN) 13 MG/DL 7-18 GLOMERULAR FILTRATION RATE (test code=GFR) >=60 max estimate estGFR >60 CREATININE (test code=CREAT) 1.2 MG/DL 0.8-1.3 TOTAL PROTEIN (test code=PROT) 7.1 G/DL 6.4-8.2 ALBUMIN (test code=ALB) 3.6 G/DL 3.4-5.0 GLOBULIN (test code=GLOB) 3.5 GM/dL ALBUMIN/GLOBULIN RATIO (test code=A/G) 1.0 RATIO 1.2-2.2 CALCIUM (test code=CA) 8.6 MG/DL 8.5-10.1 BILIRUBIN TOTAL (test code=BILT) 0.30 MG/DL 0.2-1.2 SGOT/AST (test code=AST) 12 Unit/L 15-37 SGPT/ALT (test code=ALT) 27 Unit/L 12-78 ALKALINE PHOSPHATASE TOTAL (test code=ALKP) 78 Unit/L 50-136 Completed by Nursing: [id number] 17:42:00* Test Item Value Reference Range Comments TROPONIN-I (test code=TROPI) < 0.015 NG/ML 0.000-0.045 Negative: </=0.045 Positive: >/=0.046 Correlation with serial results, other cardiac markers, and clinical findings is necessary to determine the clinical significance of this result. Quantitative results using different methodologies should not be compared to one another as numerical results may varyby method. Completed by Nursing: NOCOMPREHENSIVE METABOLIC [id number] 17:41:00* Test Item Value Reference Range Comments SODIUM (test code=NA) 134 mmol/L 134-147 POTASSIUM (test code=K) 4.2 mmol/L 3.4-5.0 CHLORIDE (test code=CL) 101 mmol/L 100-108 CARBON DIOXIDE (test code=CO2) 26 mmol/L 21-32 ANION GAP (test code=GAP) 7.0 GAP calc 4.0-15.0 GLUCOSE (test code=GLU) 342 MG/DL 70-110 BLOOD UREA NITROGEN (test code=BUN) 13 MG/DL 7-18 GLOMERULAR FILTRATION RATE (test code=GFR) estGFR >60 CREATININE (test code=CREAT) MG/DL 0.8-1.3 TOTAL PROTEIN (test code=PROT) G/DL 6.4-8.2 ALBUMIN (test code=ALB) G/DL 3.4-5.0 GLOBULIN (test code=GLOB) GM/dL ALBUMIN/GLOBULIN RATIO (test code=A/G) RATIO 1.2-2.2 CALCIUM (test code=CA) 8.6 MG/DL 8.5-10.1 BILIRUBIN TOTAL (test code=BILT) MG/DL 0.2-1.2 SGOT/AST (test code=AST) Unit/L 15-37 SGPT/ALT (test code=ALT) Unit/L 12-78 ALKALINE PHOSPHATASE TOTAL (test code=ALKP) Unit/L 50-136 Completed by Nursing: [id number] 17:41:00* Test Item Value Reference Range Comments TROPONIN-I (test code=TROPI) NG/ML 0.000-0.045 Completed by Nursing: NOCBC W/AUTO [id number] 17:34:00* Test Item Value Reference Range Comments WHITE BLOOD CELL (test code=WBC) 4.8 K/mm3 3.5-11.0 RED BLOOD CELL (test code=RBC) 4.47 M/mm3 4.70-6.10 HEMOGLOBIN (test code=HGB) 13.2 G/DL 12.3-15.9 HEMATOCRIT (test code=HCT) 38.4 % 35.8-46.7 MEAN CELL VOLUME (test code=MCV) 85.9 Fl 86.3-98.9 MEAN CELL HGB (test code=MCH) 29.5 pg 28.9-34.4 MEAN CELL HGB CONCETRATION (test code=MCHC) 34.4 G/DL 32.1-34.5 RED CELL DISTRIBUTION WIDTH (test code=RDW) 14.6 SD 11.5-14.5 PLATELET COUNT (test code=PLT) 169.0 K/mm3 150-450 MEAN PLATELET VOLUME (test code=MPV) 8.70 fL 7.0-9.6 NEUTROPHIL % (test code=NT%) 69.8 % 40-76 LYMPHOCYTE % (test code=LY%) 24.0 % 20.5-51.1 MONOCYTE % (test code=MO%) 4.8 % 1.7-9.3 EOSINOPHIL % (test code=EO%) 1.0 % 0.0-6.0 BASOPHIL % (test code=BA%) 0.4 % 0.0-2.0 NEUTROPHIL # (test code=NT#) 3.37 K/mm3 1.8-7.6 LYMPHOCYTE # (test code=LY#) 1.2 K/mm3 0.6-3.0 MONOCYTE # (test code=MO#) 0.2 K/mm3 0.2-1.5 EOSINOPHIL # (test code=EO#) 0.1 K/mm3 0.0-0.4 BASOPHIL # (test code=BA#) 0.0 K/mm3 0.0-0.2 MANUAL DIFF REQUIRED (test code=MDIFF) NO DIFF/SCN CRITERIA - XR CHEST 1 [id number] 17:12:00 Name: DAVID SAMUELS [facility] : 1970 Age/S: 48 / M [address] Unit #: [id number] Loc: [place] [address] Phys: Ben Griggs MD Acct: [id number] Dis Date: Status: REG ER PHONE #: [phone] Exam Date: 2018 1710 FAX #: Reason: chest pain EXAMS: CPT: [id number] XR CHEST 1 V 70747 Fluoro Time: DAP (Gy m2): Air Kerma (mGy): CHEST X-RAY 1 VIEW Location: N13 CLINICAL HISTORY: chest pain Technique: A single frontal view of the chest was obtained. Comparison made to prior study at 2122 hours FINDINGS: Bony structures are unremarkable. The aortic, hilar and cardiac outlines are normal. The lungs are clear of infiltrates or suspicious nodules. No pleural effusion or pneumothorax. IMPRESSION: Normal chest x-ray. at 1712 Reported and signed by: Jaz Stuart M.D. CC: Ben Griggs MD; Paula Clay MD; Naty Nicolas NP PAGE 1 Signed Report Name: DAVID SAMUELS [facility] : 1970 Age/S: 48 / M [address] Unit #: [id number] Loc: [place] [address] Phys: Ben Griggs MD Acct: [id number] Dis Date: Status: REG ER PHONE #: [phone] Exam Date: 2018 1710 FAX #: Reason: chest pain EXAMS: CPT: [id number] XR CHEST 1 V 27077 Fluoro Time: DAP (Gy m2): Air Kerma (mGy): <Continued> Technologist: Lele Zaldivar, RT(R)(CT) Trnscb Elmo e/Time: 2018 (380) [email or web address] Orig Print D/T: S: (8842) PAGE 2 Signed Report B-TYPE NATRIURETIC PEPTIDE 2018-09-14 02:05:00* Test Item Value Reference Range Comments B-TYPE NATRIURETIC PEPTIDE (test code=BNP) 16.2 PG/ML 0-100 URINALYSIS [id number] 01:58:00* Test Item Value Reference Range Comments UA COLOR (test code=COLU) YELLOW YEL/STRAW UA APPEARANCE (test code=APPU) CLEAR CLEAR UA GLUCOSE DIPSTICK (test code=DGLUU) 3+ NEGATIVE UA BILIRUBIN DIPSTICK (test code=BILU) NEGATIVE NEGATIVE UA KETONE DIPSTICK (test code=KETU) NEGATIVE NEGATIVE UA SPECIFIC GRAVITY (test code=SGU) 1.030 1.005-1.030 UA BLOOD DIPSTICK (test code=KARLOS) NEGATIVE NEGATIVE UA PH DIPSTICK (test code=DARRION) 5.0 5.0-7.0 UA PROTEIN DIPSTICK (test code=PROU) NEGATIVE NEGATIVE UA UROBILINIOGEN DIPSTICK (test code=URO) 0.2 mg/dL 0.2-1.0 UA NITRITE DIPSTICK (test code=JM) NEGATIVE NEGATIVE UA LEUKOCYTE ESTERASE DIPSTICK (test code=LEUU) NEGATIVE NEGATIVE UA WBC (test code=WBCU) 0-3 WBC/HPF 0-3 UA RBC (test code=RBCU) 0-3 RBC/HPF 0-3 UA BACTERIA (test code=BACU) NONE SEEN /HPF NONE SEEN UA SQUAMOUS CELLS (test code=SQU) NONE SEEN /HPF NONE SEEN UA MUCUS (test code=MUCU) TRACE /LPF NONE SEEN COMMENTS: Clean CatchPROTHROMBIN [id number] 01:42:00* Test Item Value Reference Range Comments PROTHROMBIN TIME PATIENT (test code=PTP) 11.9 SECONDS 9.3-12.9 INTERNATIONAL NORMAL RATIO (test code=INR) 1.1 0.8-1.2 TARGET INR BY INDICATION Indication INR1. Prophylaxis of venous thrombosis 2.0 - 3.0 (orthopedic surgery), Prophylaxis of venous thrombosis (other than high-risk surgery), Treatment of Deep Vein Thrombosis/Pulmonary Embolism, Prevention of systemic embolism - Tissue heart valves, Acute Myocardial Infarction (to prevent systemic embolism), Valvular heart disease, Atrial Fibrillation, Bileaflet mechanical valve in aortic position.2. Mechanical prosthetic valves (high risk), 2.5 - 3.5 Presence of Lupus Anticoagulant or Antiphospholipid Antibodies, Prevention of systemic embolism - Acute Myocardial Infarction (to prevent recurrent infarct). THROMBOPLASTIN TIME [id number] 01:42:00* Test Item Value Reference Range Comments THROMBOPLASTIN TIME PARTIAL (test code=PTT) 35.2 Seconds 25.0-39.5 Therapeutic Range: 61.8-83.8 Sec Effective 09/07/2013 CBC W/AUTO [id number] 01:41:00* Test Item Value Reference Range Comments WHITE BLOOD CELL (test code=WBC) 6.60 x10 3/uL 4.5-11.0 RED BLOOD CELL (test code=RBC) 4.58 x10 6/uL 4.00-5.60 HEMOGLOBIN (test code=HGB) 13.6 g/dL 12.5-16.9 HEMATOCRIT (test code=HCT) 41.0 % 37.5-50.7 MEAN CELL VOLUME (test code=MCV) 89.5 fL 81.0-99.0 MEAN CELL HGB (test code=MCH) 29.7 pg 27.0-33.0 MEAN CELL HGB CONCETRATION (test code=MCHC) 33.2 g/dL 33.0-37.0 RED CELL DISTRIBUTION WIDTH CV (test code=RDW) 14.5 % 11.5-14.5 RED CELL DISTRIBUTION WIDTH SD (test code=RDW-SD) 46.7 fL 37.0-54.0 PLATELET COUNT (test code=PLT) 233 x10 3/uL 150-400 MEAN PLATELET VOLUME (test code=MPV) 9.0 fL 7.0-9.0 NEUTROPHIL % (test code=NT%) 62.4 % 56.0-77.0 IMMATURE GRANULOCYTE % (test code=IG%) 0.2 % 0.0-2.0 LYMPHOCYTE % (test code=LY%) 28.8 % 14.0-32.0 MONOCYTE % (test code=MO%) 7.0 % 4.8-9.0 EOSINOPHIL % (test code=EO%) 1.1 % 0.3-3.7 BASOPHIL % (test code=BA%) 0.5 % 0.0-2.0 NUCLEATED RBC % (test code=NRBC%) 0.0 % 0-0 NEUTROPHIL # (test code=NT#) 4.13 x10 3/uL 2.0-7.6 IMMATURE GRANULOCYTE # (test code=IG#) 0.01 x10 3/uL 0.00-0.03 LYMPHOCYTE # (test code=LY#) 1.90 x10 3/uL 1.0-3.8 MONOCYTE # (test code=MO#) 0.46 x10 3/uL 0.1-0.8 EOSINOPHIL # (test code=EO#) 0.07 x10 3/uL 0.0-0.2 BASOPHIL # (test code=BA#) 0.03 x10 3/uL 0.0-0.2 NUCLEATED RBC # (test code=NRBC#) 0.00 x10 3/uL 0.0-0.1 MANUAL DIFF REQUIRED (test code=MDIFF) NO TROPONIN-I [id number] 01:24:00* Test Item Value Reference Range Comments TROPONIN-I RAPID (test code=TROPIRAP) 0.00 ng/mL 0.00-0.08 Performed by certified metal bending machine operator [facility] Global Task Force with joint leadership from the EuropeanSociety of Cardiology (ESC), the [place] [employer] (ACCF), the [place] [employer](AHA) and the World Heart Federation (WHF) refined past criteria of myocardial infarction (WI) with a universal definition of myocardial infarction that supports the use of cTnI as a preferred biomarker for myocardial injury. The universal definition of WI, according to this taskforce, is defined as a typical rise and gradual fall ofcardiac biomarkers (preferably troponin) with at least onevalue above the 99th percentile of the upper reference limit (URL) together with evidence of myocardial ischemia with at least one of the following:* ischemic symptoms,* pathological Q waves on electrocardiogram (ECG),* ischemic ECG changes,* or imaging evidence of new loss of viable myocardium or new regional wall motion abnormality. An elevated troponin value alone is not sufficient todiagnose a myocardial infarction. Rather, the patient sclinical presentation (history, physical exam) and ECGshould be used in conjunction with troponin in thediagnostic evaluation of suspected myocardial infarction. Aserial sampling protocol is recommended to facilitate the identification of temporal changes in troponin levels characteristic of WI. CHEMISTRY 8 [id number] 01:17:00* Test Item Value Reference Range Comments ISTAT-SODIUM (test code=NAP) MMOL/L 134-147 ISTAT-POTASSIUM (test code=KP) MMOL/L 3.4-5.0 ISTAT-CHLORIDE (test code=CLP) MMOL/L 100-108 ISTAT CARBON DIOXIDE (test code=ISTAT-CO2) mmol/L 21-33 ISTAT CALCIUM IONIZED (test code=ISTAT-ZANE) MG/DL 1.12-1.32 ISTAT-GLUCOSE (test code=GLUP) MG/DL 70-110 ISTAT-BUN (test code=BUNP) MG/DL 7-18 BEDSIDE CREATININE (test code=CREATBED) MG/DL 0.6-1.3 GLOMERULAR FILTRATION RATE POC (test code=GFRBED) 77 ML/MIN CHEMISTRY 8 [id number] 01:17:00* Test Item Value Reference Range Comments ISTAT-SODIUM (test code=NAP) 134 MMOL/L 134-147 ISTAT-POTASSIUM (test code=KP) 4.4 MMOL/L 3.4-5.0 ISTAT-CHLORIDE (test code=CLP) 100 MMOL/L 100-108 Performed by certified metal bending machine operator at [facility] ISTAT CARBON DIOXIDE (test code=ISTAT-CO2) 23.0 mmol/L 21-33 ISTAT CALCIUM IONIZED (test code=ISTAT-ZANE) 1.23 MG/DL 1.12-1.32 ISTAT-GLUCOSE (test code=GLUP) 342 MG/DL 70-110 ISTAT-BUN (test code=BUNP) 14 MG/DL 7-18 BEDSIDE CREATININE (test code=CREATBED) 1.1 MG/DL 0.6-1.3 GLOMERULAR FILTRATION RATE POC (test code=GFRBED) 77 ML/MIN - CT L-SPINE W/O [id number] 21:58:00 Name: DAVID SAMUELS [facility] : 1970 Age/S: 47 / M [address] [place], [place] [address] Unit #: [id number] Loc: [place] [address] Phys: Eric Zheng MD Acct: [id number] Dis Date: Status: REG ER PHONE #: [phone] Exam Date: 09/13/20182128 FAX #: [phone] Reason: fall on plavix EXAMS: CPT CODE: [id number] CT L-SPINE W/O CONTRAST 74032 Clinical Indication: fall on Plavix; Comparison: CT lumbar spine September 08, 2018 TECHNIQUE: Sequential trans-axial images were obtained of the lumbar spine with a multi-detector helical CT. Coronal and sagittal reconstructions reconstructions were obtained. CT radiation dose DLP: 2289 mGy-cm. FINDINGS: There are 5 nonrib-bearing lumbar vertebral segments. There is normal alignment of the lumbar spine without fractures or spondylolisthesis. The facet joints are unremarkable. There are no pars interarticularis defects noted. The anterior and posterior paraspinal soft tissues are unremarkable. There are no central or foraminal sten oses. CT myelogram or MRI of the lumbar spine may be performed, if there is further concern. IMPRESSION: No acute fracture or dislocation of the lumbar spine. SL: [id number] at 2158 Reported and signed by: Eddie Saenz M.D. CC: Eric Zheng MD; Paula Clay MD T echnologist:Yessenia Valerio, RT(R) CTDI: DLP: Trnscb Date /Time: 09/13/2018 (2157) [email or web address] Orig Print D/T: S: 11/2018 (2202) CTDI: DLP: PAGE 1 Signed Report - CT C-SPINE W/O [id number] 21:56:00 Name: DAVID SAMUELS [facility] : 1970 Age/S: 47 / M [address] [place] [address] Unit #: [id number] Loc: [place] [address] Phys: Eric Zheng MD Acct: [id number] Dis Date: Status: REG ER PHONE #: [phone] Exam Date: 09/13/20182128 FAX #: [phone] Reason: fall on plavix EXAMS: CPT CODE: [id number] CT C-SPINE W/O CONT 77142 Clinical Indication: fall on Plavix; Comparison: CT head and CT neck September 08, 2018 TECHNIQUE: CT images of the head and cervical neck were obtained. Coronal and sagittal reconstructions were obtained. CT radiation dose DLP: 419 mGy-cm for CT Head. CT radiation dose DLP: 385 mGy-cm for CT Cervical Spine. FINDINGS: CT HEAD: BRAIN PARENCHYMA: There are normal armstrong-white interfaces, sulci and gyri. There are no focal mass lesions on this noncontrast head CT. There is no mass effect, midline shift or edema. There are no intra-axial or extra-axial fluid collections, intraventricular or intraparenchymal hemorrhage. The pineal, sellar, brainstem, cerebellum and skull base regions appear unremarkable. VENTRICLES: The lateral ventricles, third and fourth ventricles appear unremarkable. The basilar cisterns are normal. ORBITS, MASTOIDS AND PARANASAL SINUSES: The visualized orbits and paranasal sinuses are unremarkable. The mastoid air cells are clear. SKULL: There are no osseous abnormalities. If there is further concern for intracranial pathology or acute stroke, MRI of the brain may be performed for complete assessment. CT CERVICAL SPINE There is normal alignment of the cervical spine. The prevertebral soft tissues, atlanto-dental interspace and craniocervical junction are normal. The posterior elements and spinous processes are normal. The facet joint, spinolaminar and spinous process alignment are normal. There are no fractures or subluxations of the cervical spine. The C2-C3 to C7-T1 disc space levels show no disc protrusions within the limits of CT modality assessment. There are no central or foraminal stenoses. The visualized lung apices are unremarkable. PAGE 1 Signed Report (CONTINUED) [facility] 1970 Age/S: 47 / M [address] [place] [address] Unit #: [id number] Loc: [place] [address] Phys: Eric Zheng MD Acct: [id number] Dis Date: Status: REG ER PHONE #: [phone] Exam Date: 09/13/20182128 FAX #: [phone] Reason: fall on plavix EXAMS: CPT CODE: [id number] CT C-SPINE W/O CONT 80535 < Continued> CT myelogram or MRI of the cervical spine may be performed, if there is further concern. IMPRESSION: 1. Unremarkable noncontrast head CT with no mass, hemorrhage or subacute stroke. 2. No acute fracture or dislocation of the cervical spine. SL: [id number] at 2156 Reported and signed by: Eddie Saenz M.D. CC: Eric Zheng MD; Paula Clay MD Technologist:Yessenia Valerio, RT(R) CTDI: DLP: Trnscb Date/Time: 09/13/2018 (2155) [email or web address] Orig Print D/T: S: 09/13/2018 (2158) CTDI: DLP: PAGE 2 Signed Report - CT HEAD/BRAIN W/O [id number] 21:56:00 Name: DAVID SAMUELS [facility] Luke Panda : 1970 Age/S: 47 / M [address] [place] [address] Unit #: [id number] Loc: [place] [address] Phys: Kota Zheng MD Acct: [id number] Di s Date: Status: REG ER PHONE #: [phone] Exam Date: 09/13/20182128 FAX #: Reason: fall on plavix EXAMS: CPT CODE: [id number] CT HEAD/BRAIN W/O CONT 20555 Clinical Indication: fall on Plavix; Comparison: CT head and CT neck September 08, 2018 TECHNIQUE: CT images of the head and cervical neck were obtained. Coronal and sagittal reconstructions were obtained. CT radiation dose DLP: 419 mGy-cm for CT Head. CT radiation dose DLP: 385 mGy-cm for CT Cervical S pine. FINDINGS: CT HEAD: BRAIN PARENCH YMA: There are normal armstrong-white interfaces, sulci and gyri. There are no focal mass lesions on this noncontrast head CT. There is no mass effect, m idline shift or edema. There are no intra-axial or extra-axial fluid colle ctions, intraventricular or intraparenchymal hemorrhage. The pineal, sella r, brainstem, cerebellum and skull base regions appear unremarkable. VENTRICLES: The lateral ventricles, third and fourth ventricles appear unremarkable. The basilar cisterns are normal. ORBITS, MAST OIDS AND PARANASAL SINUSES: The visualized orbits and paranasal sinuses ar e unremarkable. The mastoid air cells are clear. SKULL: There are no osseous abnormalities. If there is further concern for intracr anial pathology or acute stroke, MRI of the brain may be performed for com plete assessment. CT CERVICAL SPINE There is normal alignment of the cervical spine. The prevertebral soft tissues, a tlanto-dental interspace and craniocervical junction are normal. The post erior elements and spinous processes are normal. The facet joint, spinolam inar and spinous process alignment are normal. There are no fractures or s ubluxations of the cervical spine. The C2-C3 to C7-T1 disc space levels show no disc protrusions within the limits of CT modality assessmen t. There are no central or foraminal stenoses. The visualize d lung apices are unremarkable. PAGE 1 Signed Report (CONTINUED) Name: DAVID SAMUELS [facility] : 1970 Age/S: 47 / M [address] [facility] Unit #: [id number] Loc: [place] [address] Phys: Eric Zheng MD Acct: [id number] Dis Date: Status: REG ER PHONE #: [phone] Exam Date: 09/13/20182128 FAX #: [phone] Reason: fall on plavix EXAMS: CPT CODE: [id number] CT HEAD/BRAIN W/O CONT 26819 <Continued> CT myelogram or MRI of the cervical spine may be performed, if there is further concern. IMPRESSION: 1. Unremarkable noncontrast head CT with no mass, hemorrhage or subacute stroke. 2. No acute fracture or dislocation of the cervical spine. SL: [id number] at 2156 Reported and signed by: Edide Saenz M.D. CC: Eric Zheng MD; Paula Clay MD Technologist:Yessenia Valerio, (R) CTDI: DLP: Trnscb Date/Time: 09/13/2018 (2155) [email or web address] Orig Print D/T: S: 09/13/2018 (2158) CTDI: DLP: PAGE 2 Signed Report - XR CHEST 1 [id number] 21:29:00 FAX: Eric Morse MD [phone] [place]: St: REG FAX: Paula Pagan MD [phone] Name: DAVID SAMUELS [facility] : 1970 Age/S: 47/M [address] [place] [address] Unit #: [id number] Loc: [place] [address] Phys: Eric Zheng MD Acct: [id number] Dis Date: Status: REG ER PHONE #: [phone] Exam Date: 09/13/20182124 FAX #: [phone] Reason: Syncope EXAMS: CPT CODE: [id number] XR CHEST 1 V 60968 Clinical Indication: Syncope Comparison: Chest x-ray September 06, 2018 FINDINGS: The frontal chest radiograph shows normal lung volumes without interstitial or airspace opacities, pleu ral effusions or pneumothorax. The heart is normal in size. The tr achea is midline. There are no clinically significant osseous abn ormalities noted. IMPRESSION: No chest radiographic jah dence of acute cardiopulmonary disease. SL: [id number] at 2128 Reported and signed by: Eddie Saenz M.D. CC: Eric Zheng MD; Paula Clay MD Technologist: Kamla Gaspar, RT(R)(M) Trnscrd Date/Time/By: 09/13/2018 (2128) : By: Pat.LNV Orig Print D/T: S: 09/13/2018 (2131) PAGE 1 Signed Report - CT L-SPINE W/O [id number] 19:26:00 Name: DAVID SAMUELS [facility] : 1970 Age/S: 47 / M [address] [place] [address] Unit #: [id number] Loc: [place] [address] Phys: Jace Lan MD Acct: [id number] Dis Date: Status: REG ER PHONE #: [phone] Exam Date: 09/08/2018 1854 FAX #: [phone] Reason: pain - s/p syncopal episode EXAMS: CPT CODE: [id number] CT L-SPINE W/O CONTRAST [address] WITHOUT CONTRAST WITH MULTIPLANAR REFORMATS 09/08/2018 AT 1904 HOURS. CLINICAL HISTORY: Pain. Syncopal episode. COMPARISON STUDIES: Visualized lumbosacral spine in the abdomen CT from 08/13/2018. ADMINISTERED CONTRAST: None. DLP: 1810.46 mGy-cm FINDINGS: Contiguous 2.5 mm axial images of the lumbosacral spine were obtained without IV contrast. The acquired data was used to create sagittal and coronal reformatted images. There is satisfactory alignment of the lumbar vertebral bodies without signs of fracture or subluxation. No vertebral collapse or retropulsion. No perching of the articular facets. Broad-based 2 mm posterior central and bilateral paracentral disc bulges are noted at L4-L5 and L5-S1 with no spinal canal or foraminal stenosis. No acute retroperitoneal findings. Minimal punctate nonobstructive right nephrolithiasis. Urine distended bladder, partially imaged, without filling defects or diverticula along the visualized segments. IMPRESSION: 1. No signs of lumbosacral spine fracture or dislocation. 2. Broad-based 2 mm posterior disc bulges at L4-L5 and L5-S1. No spinal canal or foraminal stenosis. 3. Urine distended bladder, partially imaged. Large bladder capacity versus urinary retention. Correlate with history. ____ CT imaging performed at this location utilizes radiation dose optimization techniques which include one or more of the following: - Automated exposure control -Adjustment of the mA and/or kV according to patient size -Use of iterative reconstruction technique SL: - at 1926 Reported and signed by: Omi Anthony M.D. PAGE 1 Signed Report (CONTINUED) Name: DAVID SAMUELS [facility] : 1970 Age/S: 47 / M [address] [place] [address] Unit #: [id number] Loc: [place] [address] Phys: Jace Lan MD Acct: [id number] Dis Date: Status: REG ER PHONE #: [phone] Exam Date: 09/08/2018 1854 FAX #: [phone] Reason: pain - s/p syncopal episode EXAMS: CPT CODE: [id number] CT L-SPINE W/O CONTRAST 87509 <Continued> CC: Paula Clya MD; Jace Lan MD Technologist:Jossie Berry, RT(R) CTDI: DLP: Trnscb Date/Time: 09/08/2018 (1925) [email or web address] Orig Print D/T: S: 09/08/2018 (1928) CTDI: DLP: PAGE 2 Signed Report - CT HEAD/BRAIN W/O [id number] 19:22:00 Name: DAVID SAMUELS [facility] : 1970 Age/S: 47 / M [address] [place] [address] Unit #: [id number] Loc: [place] [address] Phys: Rossy Lan MD Acct: [id number] Di s Date: Status: REG ER PHONE #: Exam Date: 09/08/2018 1854 FAX #: Reason: pain - s/p syncopal episode EXAMS: CPT CODE: [id number] CT HEAD/BRAIN W/O CONT [address] HEAD, UNENH ANCED CT CERVICAL SPINE INDICATION: Syncope and fall. Head and ne ck pain. TECHNIQUE: Unenhanced CT was performed from the skull danyelle yousif to the foramen magnum with axial, coronal and sagittal reconstructions . Radiation dose length product 420 mGy-cm. Unenhanced CT was performed of the cervical spine with axial, coronal and sagittal reconstructio ns. Radiation dose length product 341 mGy-cm. COMPARISONS: CT hea d 08/31/2018. CT cervical spine 08/31/2018. FINDINGS: CT HEAD: The paranasal sinuses are clear as visualized. The mastoid air c ells and middle ears appear clear as visualized. There is no acute d epressed skull fracture. The cerebral ventricles are normal calibe r. There is mild generalized brain parenchymal volume loss. There is no ce rebral mass effect, midline shift, intracranial hemorrhage or acute large vessel territory cerebral cortical edema. CT CERVICAL SPIN E: There is no acute cervical spine fracture or dislocation. There is suggestion of mild spinal canal stenosis at C5-C6 and C6-C7 due to disc osteophyte bulge complexes. There is no cervical lymphadenopathy, mass or organized fluid collection. IMPRESSION: CT HEAD: 1. There is no acute intracranial process. CT CERVICAL SPINE: 1. There is no acute cervical spine fracture or dislocation. 2. There is sugges tion of mild spinal canal stenosis at C5-C6 and C6-C7 due to disc osteop hyte bulge complexes. PAGE 1 Signed Report (CONTINUED) Name: DAVID SAMUELS [facility] : 1970 Age/S: 47 / M [address] [place] [address] Unit #: [id number] Loc: [place] [address] Phys: Jace Lan MD Acct: [id number] Dis Date: Status: REG ER PHONE #: [phone] Exam Date: 09/08/2018 185 FAX #: [phone] Reason: pain - s/p syncopal episode EXAMS: CPT CODE: [id number] HEAD/BRAIN W/O CONT 18400 < Continued> at 1922 Reported and signed by: Moi Jaramillo D.O. CC: Paula Clay MD; Jace Lan MD Technologist:Jossie Berry, RT(R) CTDI: DLP: Trnscb Date/Time: 09/08/2018 (1921) [email or web address] Orig Print D/T: S: 09/08/2018 (1924) CTDI: DLP: PAGE 2 Signed Report - CT C-SPINE W/O [id number] 19:22:00 Name: DAVID SAMUELS [facility] : 1970 Age/S: 47 / M [address] [place] [address] Blvd Unit #: [id number] Loc: [place] [address] Phys: Rossy Lan MD Acct: [id number] Di s Date: Status: REG ER PHONE #: Exam Date: 09/08/2018 185 FAX #: Reason: pain - s/p syncopal episode EXAMS: CPT CODE: [id number] CT C-SPINE W/O CONT [address] HEAD, UNENH ANCED CT CERVICAL SPINE INDICATION: Syncope and fall. Head and ne ck pain. TECHNIQUE: Unenhanced CT was performed from the skull danyelle yousif to the foramen magnum with axial, coronal and sagittal reconstructions . Radiation dose length product 420 mGy-cm. Unenhanced CT was performed of the cervical spine with axial, coronal and sagittal reconstructio ns. Radiation dose length product 341 mGy-cm. COMPARISONS: CT hea d 08/31/2018. CT cervical spine 08/31/2018. FINDINGS: CT HEAD: The paranasal sinuses are clear as visualized. The mastoid air c ells and middle ears appear clear as visualized. There is no acute d epressed skull fracture. The cerebral ventricles are normal calibe r. There is mild generalized brain parenchymal volume loss. There is no ce rebral mass effect, midline shift, intracranial hemorrhage or acute large vessel territory cerebral cortical edema. CT CERVICAL SPIN E: There is no acute cervical spine fracture or dislocation. There is suggestion of mild spinal canal stenosis at C5-C6 and C6-C7 due to disc osteophyte bulge complexes. There is no cervical lymphadenopathy, mass or organized fluid collection. IMPRESSION: CT HEAD: 1. There is no acute intracranial process. CT CERVICAL SPINE: 1. There is no acute cervical spine fracture or dislocation. 2. There is sugges tion of mild spinal canal stenosis at C5-C6 and C6-C7 due to disc osteop hyte bulge complexes. PAGE 1 Signed Report (CONTINUED) Name: DAVID SAMUELS [facility] : 1970 Age/S: 47 / M [address] [place] [address] Blvd Unit #: [id number] Loc: [place] [address] Phys: Jace Lan MD Acct: [id number] Dis Date: Status: REG ER PHONE #: [phone] Exam Date: 09/08/2018 1853 FAX #: [phone] Reason: pain - s/p syncopal episode EXAMS: CPT CODE: [id number] C-SPINE W/O CONT 37071 < Continued> at 1922 Reported and signed by: Moi Jaramillo D.O. CC: Paula Clay MD; Jace Lan MD Technologist:RT Kavon(R) CTDI: DLP: Trnscb Date/Time: 09/08/2018 (1921) [email or web address] Orig Print D/T: S: 09/08/2018 (1924) CTDI: DLP: PAGE 2 Signed Report COMPREHENSIVE METABOLIC [id number] 18:56:00* Test Item Value Reference Range Comments SODIUM (test code=NA) 137 mEq/L 134-147 POTASSIUM (test code=K) 4.5 mEq/L 3.4-5.0 CHLORIDE (test code=CL) 103 mEq/L 100-108 CARBON DIOXIDE (test code=CO2) 27 mEq/L 21-33 ANION GAP (test code=GAP) 12 0-20 GLUCOSE (test code=GLU) 209 mg/dL 70-110 BLOOD UREA NITROGEN (test code=BUN) 12 mg/dL 7-18 GLOMERULAR FILTRATION RATE (test code=GFR) 65.2 95-105 Units of measure=ml/min/1.73 m2 CREATININE (test code=CREAT) 1.2 mg/dL 0.6-1.3 TOTAL PROTEIN (test code=PROT) 7.1 g/dL 6.4-8.2 ALBUMIN (test code=ALB) 3.60 g/dL 3.4-5.0 CALCIUM (test code=CA) 9.1 mg/dL 8.0-10.5 BILIRUBIN TOTAL (test code=BILT) 0.30 mg/dL 0.0-1.0 SGOT/AST (test code=AST) 20 IUnit/L 15-37 SGPT/ALT (test code=ALT) 38 IUnit/L 15-65 ALKALINE PHOSPHATASE TOTAL (test code=ALKP) 83 IUnit/L 20-125 [id number] 18:56:00* Test Item Value Reference Range Comments TROPONIN-I (test code=TROPI) < 0.015 ng/mL 0.000-0.045 Negative: <=0.045 Positive: >=0.046 Correlation with serial results, other cardiac markers andclinical findings is necessary to determine the clinicalsignificance of this result. Results using different methodologies should not be comparedto one another as quantitative results may vary by method. [id number] 18:56:00* Test Item Value Reference Range Comments ALCOHOL (test code=ALC) < 0.003 G/dL <0.003 Ethyl Alcohol Interpretation: 0.100 gm/dL - Legally Intoxicated 0.300-0.400 gm/dL - Severely Intoxicated >0.400 gm/dL - Potentially LethalResults are for Medical purposes only, and not for Legal orEmployment evaluation purposes. PROTHROMBIN [id number] 18:42:00* Test Item Value Reference Range Comments PROTHROMBIN TIME PATIENT (test code=PTP) 12.8 SECONDS 9.3-12.9 INTERNATIONAL NORMAL RATIO (test code=INR) 1.2 0.8-1.2 TARGET INR BY INDICATION Indication INR1. Prophylaxis of venous thrombosis 2.0 - 3.0 (orthopedic surgery), Prophylaxis of venous thrombosis (other than high-risk surgery), Treatment of Deep Vein Thrombosis/Pulmonary Embolism, Prevention of systemic embolism - Tissue heart valves, Acute Myocardial Infarction (to prevent systemic embolism), Valvular heart disease, Atrial Fibrillation, Bileaflet mechanical valve in aortic position.2. Mechanical prosthetic valves (high risk), 2.5 - 3.5 Presence of Lupus Anticoagulant or Antiphospholipid Antibodies, Prevention of systemic embolism - Acute Myocardial Infarction (to prevent recurrent infarct). CBC W/AUTO [id number] 18:19:00* Test Item Value Reference Range Comments WHITE BLOOD CELL (test code=WBC) 5.54 x10 3/uL 4.5-11.0 RED BLOOD CELL (test code=RBC) 4.26 x10 6/uL 4.00-5.60 HEMOGLOBIN (test code=HGB) 12.5 g/dL 12.5-16.9 HEMATOCRIT (test code=HCT) 38.3 % 37.5-50.7 MEAN CELL VOLUME (test code=MCV) 89.9 fL 81.0-99.0 MEAN CELL HGB (test code=MCH) 29.3 pg 27.0-33.0 MEAN CELL HGB CONCETRATION (test code=MCHC) 32.6 g/dL 33.0-37.0 RED CELL DISTRIBUTION WIDTH CV (test code=RDW) 14.2 % 11.5-14.5 RED CELL DISTRIBUTION WIDTH SD (test code=RDW-SD) 46.3 fL 37.0-54.0 PLATELET COUNT (test code=PLT) 177 x10 3/uL 150-400 MEAN PLATELET VOLUME (test code=MPV) 8.7 fL 7.0-9.0 NEUTROPHIL % (test code=NT%) 74.2 % 56.0-77.0 IMMATURE GRANULOCYTE % (test code=IG%) 0.5 % 0.0-2.0 LYMPHOCYTE % (test code=LY%) 19.0 % 14.0-32.0 MONOCYTE % (test code=MO%) 5.4 % 4.8-9.0 EOSINOPHIL % (test code=EO%) 0.5 % 0.3-3.7 BASOPHIL % (test code=BA%) 0.4 % 0.0-2.0 NUCLEATED RBC % (test code=NRBC%) 0.4 % 0-0 NEUTROPHIL # (test code=NT#) 4.11 x10 3/uL 2.0-7.6 IMMATURE GRANULOCYTE # (test code=IG#) 0.03 x10 3/uL 0.00-0.03 LYMPHOCYTE # (test code=LY#) 1.05 x10 3/uL 1.0-3.8 MONOCYTE # (test code=MO#) 0.30 x10 3/uL 0.1-0.8 EOSINOPHIL # (test code=EO#) 0.03 x10 3/uL 0.0-0.2 BASOPHIL # (test code=BA#) 0.02 x10 3/uL 0.0-0.2 NUCLEATED RBC # (test code=NRBC#) 0.02 x10 3/uL 0.0-0.1 MANUAL DIFF REQUIRED (test code=MDIFF) NO GLUCOSE BEDSIDE [id number] 16:31:00* Test Item Value Reference Range Comments GLUCOSE BEDSIDE TESTING (test code=GLUBED) 331 mg/dL 70-110 GLUCOSE BEDSIDE [id number] 12:02:00* Test Item Value Reference Range Comments GLUCOSE BEDSIDE TESTING (test code=GLUBED) 221 mg/dL 70-110 GLUCOSE BEDSIDE [id number] 07:44:00* Test Item Value Reference Range Comments GLUCOSE BEDSIDE TESTING (test code=GLUBED) 193 mg/dL 70-110 CPK-MB [id number] 05:46:00* Test Item Value Reference Range Comments CREATINE KINASE (CK) (test code=CK) 44 Unit/L 26-192 CKMB (test code=CKMBT) < 1.0 NG/ML 0.0-4.9 RELATIVE % INDEX (test code=REL%) 2.2 % 0.0-2.5 Completed by Nursing: [id number] 05:46:00* Test Item Value Reference Range Comments TROPONIN-I (test code=TROPI) < 0.015 NG/ML 0.000-0.045 Negative: </=0.045 Positive: >/=0.046 Correlation with serial results, other cardiac markers, and clinical findings is necessary to determine the clinical significance of this result. Quantitative results using different methodologies should not be compared to one another as numerical results may varyby method. Completed by Nursing: NOCPK-MB [id number] 02:03:00* Test Item Value Reference Range Comments CREATINE KINASE (CK) (test code=CK) 38 Unit/L 26-192 CKMB (test code=CKMBT) < 1.0 NG/ML 0.0-4.9 RELATIVE % INDEX (test code=REL%) 2.6 % 0.0-2.5 Completed by Nursing: [id number] 02:03:00* Test Item Value Reference Range Comments TROPONIN-I (test code=TROPI) < 0.015 NG/ML 0.000-0.045 Negative: </=0.045 Positive: >/=0.046 Correlation with serial results, other cardiac markers, and clinical findings is necessary to determine the clinical significance of this result. Quantitative results using different methodologies should not be compared to one another as numerical results may varyby method. Completed by Nursing: NOURINALYSIS [id number] 00:36:00* Test Item Value Reference Range Comments UA COLOR (test code=COLU) YELLOW discript YEL/STRAW UA APPEARANCE (test code=APPU) CLEAR discript CLEAR UA GLUCOSE DIPSTICK (test code=DGLUU) 3+ mg/dL NEG UA BILIRUBIN DIPSTICK (test code=BILU) NEGATIVE mg/dL NEG UA KETONE DIPSTICK (test code=KETU) NEGATIVE mg/dL NEG UA SPECIFIC GRAVITY (test code=SGU) 1.010 SG 1.005-1.030 UA BLOOD DIPSTICK (test code=KARLOS) NEGATIVE mg/DL NEG UA PH DIPSTICK (test code=DARRION) 8.0 pH UNITS 5.0-7.0 UA PROTEIN DIPSTICK (test code=PROU) NEGATIVE mg/dL NEG UA UROBILINIOGEN DIPSTICK (test code=URO) 0.2 mg/dL <2.0 UA NITRITE DIPSTICK (test code=JM) NEGATIVE SCREEN NEG UA LEUKOCYTE ESTERASE DIPSTICK (test code=LEUU) NEGATIVE Leuk/mcL NEGATIVE HEPATIC FUNCTION [id number] 21:42:00* Test Item Value Reference Range Comments TOTAL PROTEIN (test code=PROT) 7.3 G/DL 6.4-8.2 ALBUMIN (test code=ALB) 3.6 G/DL 3.4-5.0 BILIRUBIN TOTAL (test code=BILT) 0.30 MG/DL 0.2-1.2 BILIRUBIN DIRECT (test code=BILD) < 0.10 MG/DL 0.00-0.30 BILIRUBIN INDIRECT (test code=BILIND) 0.20 MG/DL 0.2-1.2 SGOT/AST (test code=AST) 23 Unit/L 15-37 SGPT/ALT (test code=ALT) 41 Unit/L 12-78 ALKALINE PHOSPHATASE TOTAL (test code=ALKP) 81 Unit/L 50-136 [id number] 21:42:00* Test Item Value Reference Range Comments LIPASE (test code=LIP) 157 Unit/L 114-286 NT PRO-BRAIN NATRIURETIC [id number] 21:42:00* Test Item Value Reference Range Comments NT PRO-BRAIN NATRIURETIC PEPTI (test code=PROBNP) 83 PG/ML 0-100 CPK-MB [id number] 21:42:00* Test Item Value Reference Range Comments CREATINE KINASE (CK) (test code=CK) 51 Unit/L 26-192 CKMB (test code=CKMBT) < 1.0 NG/ML 0.0-4.9 RELATIVE % INDEX (test code=REL%) 1.9 % 0.0-2.5 - XR CHEST 1 [id number] 21:36:00 Name: DAVID SAMUELS [facility] : 1970 Age/S: 47 / M [address] Unit #: [id number] Loc: [place] [address] Phys: Toney Castaneda MD Acct: [id number] Dis Date: Status: REG ER PHONE #: [phone] Exam Date: 09/06/20182120 FAX #: Reason: chest pain EXAMS: CPT: [id number] XR CHEST 1 V 27321 Fluoro Time: DAP (Gy m2): Air Kerma (mGy): EXAM: - XR CHEST 1 V LOCATION: C3 HISTORY: chest pain COMPARISON: 08/31/2018 FINDINGS: Single view of the chest. No indwelling lines or tubes. No pneumothorax. The lungs are clear. No pleural effusions are present. The mediastinal contours are unremarkable. No acute osseous findings are present. IMPRESSION: No acute cardiopulmonary abnormality. at 2135 Reported and signed by: JOSE HERRERA M.D. CC: Paula Clay MD PAGE 1 Signed Report [place]: [place] : 1970 Age/S: 47 / M [address] Unit #: [id number] Loc: [place] [address] Phys: Toeny Castaneda MD Acct: [id number] Dis Date: Status: REG ER PHONE #: [phone] Exam Date: 09/06/20182120 FAX #: Reason: chest pain EXAMS: CPT: [id number] XR CHEST 1 V 64905 Fluoro Time: DAP (Gy m2): Air Kerma (mGy): <Continued> Technologist: Alpesh Curiel RT(R)(CT) Trnscb Date/Time: 09/06/2018 (2135) [id number] Orig Print D/T: S: 09/06/2018 (2139) PAGE 2 Signed Report TROPONIN I [id number] 21:33:00* Test Item Value Reference Range Comments TROPONIN I RAPID (test code=TROPIRAP) 0.00 ng/mL 0.00-0.08 - The use of serial sampling and testing protocol is a recommended practice- An elevated troponin level alone is often not sufficient for diagnosis of myocardial infarction. CHEMISTRY 8 [id number] 21:26:00* Test Item Value Reference Range Comments ISTAT-SODIUM (test code=NAP) mmol/L 135-146 ISTAT-POTASSIUM (test code=KP) mmol/L 3.5-4.9 ISTAT-CHLORIDE (test code=CLP) mmol/L 98-109 ISTAT-CARBON DIOXIDE (test code=ISTAT-CO2) mmol/L 24-29 ISTAT CALCIUM IONIZED (test code=ISTAT-ZANE) mmol/L 1.12-1.32 ISTAT-GLUCOSE (test code=GLUP) mg/dL 70-105 ISTAT-BUN (test code=BUNP) mg/dL 8-26 BEDSIDE CREATININE (test code=CREATBED) mg/dL 0.6-1.3 GLOMERULAR FILTRATION RATE POC (test code=GFRBED) 69 63-147 CHEMISTRY 8 [id number] 21:26:00* Test Item Value Reference Range Comments ISTAT-SODIUM (test code=NAP) 138 mmol/L 135-146 ISTAT-POTASSIUM (test code=KP) 3.9 mmol/L 3.5-4.9 ISTAT-CHLORIDE (test code=CLP) 96 mmol/L 98-109 ISTAT-CARBON DIOXIDE (test code=ISTAT-CO2) 26 mmol/L 24-29 ISTAT CALCIUM IONIZED (test code=ISTAT-ZANE) 1.24 mmol/L 1.12-1.32 ISTAT-GLUCOSE (test code=GLUP) 312 mg/dL 70-105 ISTAT-BUN (test code=BUNP) 11 mg/dL 8-26 BEDSIDE CREATININE (test code=CREATBED) 1.2 mg/dL 0.6-1.3 GLOMERULAR FILTRATION RATE POC (test code=GFRBED) 69 63-147 CBC W/O [id number] 21:25:00* Test Item Value Reference Range Comments WHITE BLOOD CELL (test code=WBC) 6.0 K/mm3 3.5-11.0 RED BLOOD CELL (test code=RBC) 4.32 M/mm3 4.70-6.10 HEMOGLOBIN (test code=HGB) 13.3 G/DL 12.3-15.9 HEMATOCRIT (test code=HCT) 37.9 % 35.8-46.7 MEAN CELL VOLUME (test code=MCV) 87.7 Fl 86.3-98.9 MEAN CELL HGB (test code=MCH) 30.8 pg 28.9-34.4 MEAN CELL HGB CONCETRATION (test code=MCHC) 35.1 G/DL 32.1-34.5 RED CELL DISTRIBUTION WIDTH (test code=RDW) 14.9 SD 11.5-14.5 PLATELET COUNT (test code=PLT) 172.0 K/mm3 150-450 MEAN PLATELET VOLUME (test code=MPV) 8.20 fL 7.0-9.6 Basic Metabolic [id number] 20:33:00* Test Item Value Reference Range Comments Serum or plasma sodium measurement (moles/volume) (test ttmb=2957-8) 136 mmol/L 136-145 Potassium [Moles/volume] in Serum or Plasma (test bipz=5153-4) 3.7 mmol/L 3.5-5.1 Chloride [Moles/volume] in Serum or Plasma (test ndre=6449-8) 99 mmol/L 98-107 Carbon dioxide, total [Moles/volume] in Serum or Plasma (test xdtu=1118-0) 29 mmol/L 21-32 Glucose [Mass/volume] in Serum or Plasma (test tjij=1673-9) 263 mg/dL 74-106 Urea nitrogen [Mass/volume] in Serum or Plasma (test hwrs=1863-2) 8 mg/dL 7-18 Creatinine [Mass/volume] in Serum or Plasma (test rxid=3549-3) 1.26 mg/dL 0.55-1.3 Glomerular Filtration Rate (test code=GFR) 62 mL =/>90 FOR CHRONIC KIDNEY DISEASE: GFR STAGE DESCRIPTION=/>90 STAGE 1 NORMAL--OR-- MINIMAL KIDNEY DAMAGE WITH NORMAL GFR 60-89 STAGE 2 MILD DECREASE IN GFR 30-59 STAGE 3 MODERATE DECREASE IN GFR 15-29 STAGE 4 SEVERE DECREASE IN GFR <15 STAGE 5 KIDNEY FAILURE The Glomerular Filtration Rate (GFR) has been calculated using the IDMS-Traceable MDRD Study Equation. Calcium [Mass/volume] in Serum or Plasma (test vzdp=48972-3) 8.8 mg/dL 8.5-10.1 Comment Bed:6 Test Ordered to Rule Out VTE/DVT? NLiver (Hepatic) Function 2018-09-04 20:33:00* Test Item Value Reference Range Comments Aspartate aminotransferase [Enzymatic activity/volume] in Serum or Plasma by With P-5 (test lavq=24419-0) 21 U/L 15-37 Alanine aminotransferase [Enzymatic activity/volume] in Serum or Plasma by With P-5'- (test qxaa=5704-4) 35 U/L 12-78 Alkaline phosphatase [Enzymatic activity/volume] in Serum or Plasma (test pqub=3210-8) 87 U/L 45-117 Bilirubin.total [Mass/volume] in Serum or Plasma (test xtpk=9894-8) 0.4 mg/dL 0.2-1.0 Bilirubin.direct [Mass/volume] in Serum or Plasma (test thqp=0123-1) 0.1 mg/dL 0-0.2 Protein [Mass/volume] in Serum or Plasma (test zkkn=1572-3) 6.9 g/dL 6.4-8.2 Albumin [Mass/volume] in Serum or Plasma by Bromocresol purple (BCP) dye binding meth (test cuea=41776-9) 3.6 g/dL 3.4-5.0 Globulin (test code=GLOB) 3.3 g/dL 2.3-3.5 Albumin/Globulin Ratio (test code=A/G) 1.1 1.1-1.8 Comment Bed:6 Test Ordered to Rule Out VTE/DVT? NTroponin I.cardiac [Mass/volume] in Serum or [id number] 20:33:00* Test Item Value Reference Range Comments Troponin I.cardiac [Mass/volume] in Serum or Plasma (test mfoh=76250-8) <0.02 ng/mL 0.0-0.045 Comment Bed:6 Test Ordered to Rule Out VTE/DVT? NNatriuretic peptide.B prohormone N-Terminal [Mass/volume] in Serum or [id number] 20:33:00* Test Item Value Reference Range Comments Natriuretic peptide.B prohormone N-Terminal [Mass/volume] in Serum or Plasma (test fpuz=60437-5) 115 pg/mL <125 Comment Bed:6 Test Ordered to Rule Out VTE/DVT? NMagnesium [Mass/volume] in Serum or [id number] 20:33:00* Test Item Value Reference Range Comments Magnesium [Mass/volume] in Serum or Plasma (test jplp=17107-0) 2.1 mg/dL 1.8-2.4 Comment Bed:6 Test Ordered to Rule Out VTE/DVT? NProthrombin time (PT) with international normalized ratio (INR)2018-09-04 20:06:00* Test Item Value Reference Range Comments PT Prothrombin Time (test code=PROTIME) 11.0 s 9.5-12.5 INR in Blood by Coagulation assay (test krhd=22236-7) 0.93 Monitor pts using INR value (not prothrombin time) INR Coumadin Therapy: Low Range (prophylaxis) 2.0-3.0 High Range (high risk of clot formation) 2.5-3.5 NComplete blood count (CBC) with automated white blood cell (WBC) differential 2018-09-04 19:59:00* Test Item Value Reference Range Comments White blood cell count (test mxuq=EZC0785) 4.9 4.3-10.9 Blood erythrocytes count (number/volume) (test hyyb=84839-5) 4.13 M/ul 4.33-5.43 Hemoglobin measurement (test acbm=OXF8258) 12.3 g/dL 13.6-17.9 Blood hematocrit (volume fraction) (test rkit=05066-9) 36.7 % 39.6-49.0 MCV (test rhre=MSK5626) 88.7 fL 80-100 29.8 MCHC (test code=MCHC) 33.6 g/dL 32.0-36.0 Platelets (test code=PLT) 175 152-406 Red Cell Distribution Width (test code=RDW) 15.7 % 12.1-15.2 Blood platelet mean volume (test aiaa=14211-3) 6.8 fL 7.6-11.3 Neutrophils % (test code=TEJA%) 67.9 % 41.7-73.7 Lymphocytes/leuk NFr Bld (test bmom=75338-9) 21.7 % 15.3-44.8 Monocyte percentage (test lmir=6612-2) 8.4 % 3.3-12.3 Eosinophil % (test smmw=938-8) 1.4 % 0-4.4 Basophil % (test rllc=14478-9) 0.6 % 0-1.3 Absolute neutrophil count (test jjkg=946-3) 3.3 1.8-8.0 Absolute lymphocyte count (test chmq=01450-9) 1.1 0.7-4.9 Absolute monocyte count (test eszl=318-0) 0.4 0.1-1.3 Absolute Eosinophils (test code=EOA) 0.1 0-0.5 Absolute Basophils (test code=BASA) 0.0 0-0.5 Chest Single Iymo3985-68-31 19:09:[address] [address] RADIOLOGY SERVICES REPORT Name: DAVID SAMUELS Acct Number: [id number] :1970 Age:47 Sex:M Ord Phys: Igor Valdivia Unit Number: [id number] [place] [facility] [address]: NONE Status: REG ER ER Exam Date: 09/04/18 EXAM DESCRIPTION: RAD - Chest Single View - 09/04/2018 6:53 pm CLINICAL HISTORY: Chest pain COMPARISON: September 02 TECHNIQUE: AP portable chest image was obtained 1832 hours . FINDINGS: No acute lung parenchymal process. Interstitial pattern is similar to comparison. Heart and vasculature are normal. No measurable pleural effusion and no pneumothorax. No acute bony abnormality seen. No acute aortic findings suspected. IMPRESSION: No acute cardiopulmonary process. No significant interval change. Signed By: Jose Castillo MD Signed AT: 09/04/181909 Epes blmyv9581-42-02 08:25:00Comment Bed:7 Test Ordered to Rule Out VTE/DVT? N<10,000 CFU/ML.^<10,000 CFU/ML.^LUrine culture 2018-09-04 08:25:00* Test Item Value Reference Range Comments Urine culture (test zqqw=883-1) MIXED MEREDITH. Comment Bed:7 Test Ordered to Rule Out VTE/DVT? NGlucose blood fingerstick 2018-09-03 08:26:00* Test Item Value Reference Range Comments Glucose blood fingerstick (test vzyk=ZVC0252) 190 mg/dL 65-120 Hemoglobin A1c/Hemoglobin.total in Snyco1819-41-67 05:37:00* Test Item Value Reference Range Comments Hemoglobin A1c/Hemoglobin.total in Blood (test hbvz=9833-2) 9.5 % 4.2-6.3 Primary Language EnglishMagnesium [Mass/volume] in Serum or Nybaud8001-19-46 05:03:00* Test Item Value Reference Range Comments Magnesium [Mass/volume] in Serum or Plasma (test bmlr=33584-3) 1.7 mg/dL 1.8-2.4 Glucose blood skmszjcshnh2841-42-94 23:33:00* Test Item Value Reference Range Comments Glucose blood fingerstick (test wqil=XZT3437) 241 mg/dL 65-120 Troponin I.cardiac [Mass/volume] in Serum or Buxvqf5293-78-27 19:34:00* Test Item Value Reference Range Comments Troponin I.cardiac [Mass/volume] in Serum or Plasma (test fvzy=96382-9) <0.02 ng/mL 0.0-0.045 Primary Language EnglishGlucose blood ronljmoidwq9352-79-13 17:23:00* Test Item Value Reference Range Comments Glucose blood fingerstick (test xwvw=QFQ6763) 331 mg/dL 65-120 Basic Metabolic Wahxz6388-96-75 16:19:00* Test Item Value Reference Range Comments Serum or plasma sodium measurement (moles/volume) (test gsay=4839-4) 138 mmol/L 136-145 Potassium [Moles/volume] in Serum or Plasma (test rvsw=7982-9) 4.4 mmol/L 3.5-5.1 Chloride [Moles/volume] in Serum or Plasma (test nofy=4271-8) 103 mmol/L 98-107 Carbon dioxide, total [Moles/volume] in Serum or Plasma (test wojr=9641-4) 26 mmol/L 21-32 Glucose [Mass/volume] in Serum or Plasma (test lpsb=1153-4) 292 mg/dL 74-106 Urea nitrogen [Mass/volume] in Serum or Plasma (test vbrf=1499-9) 11 mg/dL 7-18 Creatinine [Mass/volume] in Serum or Plasma (test fwtv=5021-1) 1.32 mg/dL 0.55-1.3 Glomerular Filtration Rate (test code=GFR) 58 mL =/>90 FOR CHRONIC KIDNEY DISEASE: GFR STAGE DESCRIPTION=/>90 STAGE 1 NORMAL--OR-- MINIMAL KIDNEY DAMAGE WITH NORMAL GFR 60-89 STAGE 2 MILD DECREASE IN GFR 30-59 STAGE 3 MODERATE DECREASE IN GFR 15-29 STAGE 4 SEVERE DECREASE IN GFR <15 STAGE 5 KIDNEY FAILURE The Glomerular Filtration Rate (GFR) has been calculated using the IDMS-Traceable MDRD Study Equation. Calcium [Mass/volume] in Serum or Plasma (test cawe=63628-6) 8.5 mg/dL 8.5-10.1 Primary Language EnglishTroponin I.cardiac [Mass/volume] in Serum or Plasma 2018-09-02 13:00:00* Test Item Value Reference Range Comments Troponin I.cardiac [Mass/volume] in Serum or Plasma (test nhoe=65855-0) <0.02 ng/mL 0.0-0.045 Primary Language EnglishGlucose blood mjpctbcuhnc5355-58-99 11:41:00* Test Item Value Reference Range Comments Glucose blood fingerstick (test svps=UOF6727) 304 mg/dL 65-120 Carotid Artery Izahnhiae1217-32-53 11:29:00[place] [address] RADIOLOGY SERVICES REPORT Name: DAVID SAMUELS Acct Number: [id number] :1970 Age:47 Sex:M Ord Phys: Sorin Pool MD Unit Number: [id number] [place] [facility] [address]: NONE Status: ADM IN Exam Date: 09/02/18 EXAM DESCRIPTION: - - 09/02/2018 11:20 am CLINICAL HISTORY: syncope Headache, syncope, head injury COMPARISON: No comparisons TECHNIQUE: Real-time sonographic evaluation of both carotid systems was performed. Doppler interrogation was performed with waveform tracing bilaterally. FINDINGS: Normal high resistance waveforms are noted in both external carotid arteries. The common carotid arteries and internal carotid arteries show normal low resistance waveforms. No significant plaque formation is seen. Peak systolic and end diastolic velocity values and the ICA/CCA ratios are in the non-hemodynamically significant range. Antegrade flow seen in both vertebral arteries. IMPRESSION: No significant atherosclerotic changes noted. No evidence of a hemodynami chi significant stenosis. Signed By: Pantera Bliss MD Signed AT: 0 09/02/18 1130 Glucose blood wahquyuppty1976-58-22 09:12:00* Test Item Value Reference Range Comments Glucose blood fingerstick (test biof=MIX0485) 318 mg/dL 65-120 Angio Aorta For Yrejnmiubt4049-88-63 08:34:00[place] [address] RADIOLOGY SERVICES REPORT Name: DAVID SAMUELS Acct Number: [id number] :1970 Age:47 Sex:M Ord Phys: Judson Liao MD Unit Number: [id number] [address] [facility] [address]: NONE Status: ADM IN Exam Date: 09/01/18 EXAM DESCRIPTION: CT - Angio Aorta For Dissection - 09/02/2018 1:54 am CLINICAL HISTORY: Chest pain radiating to the left side A preliminary report was provided at the time of the study and reviewed prior to final report. COMPARISON: Chest films same date TECHNIQUE: Dynamically enhanced 3 mm thick images of the chest, abdomen, and upper pelvis were obtained during administration of approximately 150mL Isovue 370 IV contrast. Sagittal and coronal reconstruction images were generated using MIP and reviewed. Exam utilizes a protocol to evaluate entire course of the aorta. All CT scans are performed using dose optimization technique as appropriate and may include automated exposure control or mA/KV adjustment according to patient size. FINDINGS: Aorta is normal in d iameter with no dissection or other acute aortic findings. Reconstruction images show no significant findings. Pulmonary arteries are normal as well. No c ardiomegaly, pericardial thickening or pericardial effusion. No mass or in filtrate in the lung parenchyma. No pleural thickening, pleural effusion or pneu mothorax. No abnormal mediastinal or hilar mass or lymphadenopathy seen. N o chest wall mass or abnormal axillary lymphadenopathy. Celiac, SMA and re nal arteries show no suspicious findings. Liver is prominent in size with fatty infiltration. No focal liver lesions seen. Spleen and pancreas without suspiciou s finding. No gallbladder or biliary tree abnormality. No mass or abnormal lymp hadenopathy. No free air, free fluid or inflammatory stranding. No urinary bladd er abnormality. IMPRESSION: No aneurysm, dissection or acute aortic f inding. No other acute or emergent chest abdomen or pelvis findings. Nonac algaaciq findings detailed in the body of the report. Signed By: Jose Castillo MD Signed AT: 09/02/18 0835 Head Brain Wo Htny9216-60-27 07:27:00[place] [address] RADIOLOGY SERVICES REPORT Name: DAVID SAMUELS Acct Number: [id number] :1970 Age:47 Sex:M Ord Phys: Judson Liao MD Unit Number: [id number] [facility] [address]: NONE Status: ADM IN [address] [place] [address]-A Exam Date: 09/01/18 EXAM DESCRIPTION: CT - Head Brain Wo Cont - 09/02/2018 1:54 am CLINICAL HISTORY: Syncope, dizziness, headache A preliminary report was provided at the time of the study and reviewed prior to final report. COMPARISON: None. TECHNIQUE: Axial 5 mm thick images of the head were obtained without IV contrast. All CT scans are performed using dose optimization technique as appropriate and may include automated exposure control or mA/KV adjustment according to patient size. FINDINGS: No intracranial hemorrhage, mass, edema or shift of mid-line structures. No acute infarction changes seen. No abnormal extra-axial fluid collections. Ventricles are normal. Mastoid air cells and visualized portions of the paranasal sinuses are clear. No acute bony findings. IMPRESSION: Negative non- contrast CT head examination. Signed By: Jose Castillo MD Signed AT: 09/02/18 0728 Chest Single Sqld0938-22-00 06:41:00[facility] [place] [address] RADIOLOGY SERVICES REPORT Name: DAVID SAMUELS Acct Number: [id number] :1970 Age:47 Sex:M Ord Phys: Judson Liao MD Unit Number: [id number] [place] [facility] [address]: NONE Status: ADM IN -A Exam Date: 09/01/18 EXAM DESCRIPTIO N: RAD - Chest Single View - 09/02/2018 12:19 am CLINICAL HISTORY: Chest pain COMPARISON: None. TECHNIQUE: AP portable chest image was obta ined 0015 hours . FINDINGS: Lung volumes are low. No focal lung parenchym al process. Interstitial markings are mildly prominent but probably chronic. Hea rt and vasculature are normal. No measurable pleural effusion and no pneumothora x. No acute bony abnormality seen. No acute aortic findings suspected. IMP RESSION: No acute cardiopulmonary process. Signed By: Jose Castillo MD Signed AT: 09/02/18 0641 Hemoglobin A1c/Hemoglobin.total in Rupok2197-04-30 06:09:00* Test Item Value Reference Range Comments Hemoglobin A1c/Hemoglobin.total in Blood (test iokt=0127-6) 9.3 % 4.2-6.3 Primary Language EnglishGlucose blood pgahoazngmj6685-13-49 05:29:00* Test Item Value Reference Range Comments Glucose blood fingerstick (test ijys=JFG8488) 212 mg/dL 65-120 Troponin I.cardiac [Mass/volume] in Serum or Bsfnqf1403-65-69 04:54:00* Test Item Value Reference Range Comments Troponin I.cardiac [Mass/volume] in Serum or Plasma (test mcon=94522-1) <0.02 ng/mL 0.0-0.045 Primary Language EnglishBaarh [facility] Metabolic Qwxkk8661-29-46 01:08:00* Test Item Value Reference Range Comments Serum or plasma sodium measurement (moles/volume) (test pjle=3321-5) 134 mmol/L 136-145 Potassium [Moles/volume] in Serum or Plasma (test wxsi=3565-2) 4.2 mmol/L 3.5-5.1 Chloride [Moles/volume] in Serum or Plasma (test stgu=6451-7) 99 mmol/L 98-107 Carbon dioxide, total [Moles/volume] in Serum or Plasma (test yyfh=3238-7) 24 mmol/L 21-32 Glucose [Mass/volume] in Serum or Plasma (test bwih=0915-2) 414 mg/dL 74-106 Repeated & Called to MICHAEL MASON RN on 09/02/18 at 0108 by ROHINICH1 Was there 100% Readback? Y Urea nitrogen [Mass/volume] in Serum or Plasma (test ovmz=2177-0) 12 mg/dL 7-18 Creatinine [Mass/volume] in Serum or Plasma (test thzh=0786-7) 1.65 mg/dL 0.55-1.3 Glomerular Filtration Rate (test code=GFR) 45 mL =/>90 FOR CHRONIC KIDNEY DISEASE: GFR STAGE DESCRIPTION=/>90 STAGE 1 NORMAL--OR-- MINIMAL KIDNEY DAMAGE WITH NORMAL GFR 60-89 STAGE 2 MILD DECREASE IN GFR 30-59 STAGE 3 MODERATE DECREASE IN GFR 15-29 STAGE 4 SEVERE DECREASE IN GFR <15 STAGE 5 KIDNEY FAILURE The Glomerular Filtration Rate (GFR) has been calculated using the IDMS-Traceable MDRD Study Equation. Calcium [Mass/volume] in Serum or Plasma (test sdot=37647-1) 9.0 mg/dL 8.5-10.1 Test Ordered to Rule Out VTE/DVT? N Test Ordered to Rule Out VTE/DVT? NLiver (Hepatic) Theptixf9673-48-20 01:08:00* Test Item Value Reference Range Comments Aspartate aminotransferase [Enzymatic activity/volume] in Serum or Plasma by With P-5 (test ihoi=68225-6) 17 U/L 15-37 Alanine aminotransferase [Enzymatic activity/volume] in Serum or Plasma by With P-5'- (test dfpd=3123-2) 31 U/L 12-78 Alkaline phosphatase [Enzymatic activity/volume] in Serum or Plasma (test ybrr=7235-9) 86 U/L 45-117 Bilirubin.total [Mass/volume] in Serum or Plasma (test pjpa=5487-2) 0.4 mg/dL 0.2-1.0 Bilirubin.direct [Mass/volume] in Serum or Plasma (test qrjo=7647-0) 0.1 mg/dL 0-0.2 Protein [Mass/volume] in Serum or Plasma (test lyac=4786-5) 6.8 g/dL 6.4-8.2 Albumin [Mass/volume] in Serum or Plasma by Bromocresol purple (BCP) dye binding meth (test thvx=20104-8) 3.5 g/dL 3.4-5.0 Globulin (test code=GLOB) 3.3 g/dL 2.3-3.5 Albumin/Globulin Ratio (test code=A/G) 1.1 1.1-1.8 Test Ordered to Rule Out VTE/DVT? N Test Ordered to Rule Out VTE/DVT? NTroponin I.cardiac [Mass/volume] in Serum or Vawitn0710-91-08 01:08:00* Test Item Value Reference Range Comments Troponin I.cardiac [Mass/volume] in Serum or Plasma (test eeyw=92493-1) <0.02 ng/mL 0.0-0.045 Test Ordered to Rule Out VTE/DVT? N Test Ordered to Rule Out VTE/DVT? N Natriuretic peptide.B prohormone N-Terminal [Mass/volume] in Serum or Plasma 2018-09-02 01:08:00* Test Item Value Reference Range Comments Natriuretic peptide.B prohormone N-Terminal [Mass/volume] in Serum or Plasma (test rufe=91383-1) 23 pg/mL <125 Test Ordered to Rule Out VTE/DVT? N Test Ordered to Rule Out VTE/DVT? NMagnesium [Mass/volume] in Serum or Zgvkdh0542-90-16 01:08:00* Test Item Value Reference Range Comments Magnesium [Mass/volume] in Serum or Plasma (test yate=70108-0) 1.6 mg/dL 1.8-2.4 Test Ordered to Rule Out VTE/DVT? N Test Ordered to Rule Out VTE/DVT? NLipase [Enzymatic activity/volume] in Serum or Vmksrr6375-69-01 01:08:00* Test Item Value Reference Range Comments Lipase [Enzymatic activity/volume] in Serum or Plasma (test cwqs=2784-7) 108 U/L 73-393 Test Ordered to Rule Out VTE/DVT? N Test Ordered to Rule Out VTE/DVT? N Prothrombin time (PT) with international normalized ratio (INR)2018-09-02 00:43:00* Test Item Value Reference Range Comments PT Prothrombin Time (test code=PROTIME) 10.9 s 9.5-12.5 INR in Blood by Coagulation assay (test eofv=08548-6) 0.92 Monitor pts using INR value (not prothrombin time) INR Coumadin Therapy: Low Range (prophylaxis) 2.0-3.0 High Range (high risk of clot formation) 2.5-3.5 NUrine dipstick testing at lalaz-dq-zcke9160-01-24 00:38:00* Test Item Value Reference Range Comments Urine specific gravity measurement (test rcxi=5958-0) 1.010 1.005-1.030 Urine glucose detection (test ezwk=6465-2) 2+ NEG Urine Ketones (test code=UKET) NEGATIVE NEG Urine blood detection (test hurh=78699-1) Negative NEG Urine pH (test zhwy=9966-6) 6.5 5.0-7.0 Urinalysis with microscopy (test atsc=17780-5) NEGATIVE NEG Urine Nitrate (test code=UNIT) NEGATIVE NEG Urine Leukocyte Esterase (test code=UESTR) NEGATIVE NEG Comment Bed:7 aa NEG 2+ NEG NEG NEG 6.5 NEG Y 1.010Complete blood count (CBC) with automated white blood cell (WBC) fkvkcclnnuws3243-75-81 00:36:00* Test Item Value Reference Range Comments White blood cell count (test uhva=VPE6145) 8.0 4.3-10.9 Blood erythrocytes count (number/volume) (test hpyh=69262-8) 4.23 M/ul 4.33-5.43 Hemoglobin measurement (test jlwa=YMW6137) 12.5 g/dL 13.6-17.9 Blood hematocrit (volume fraction) (test cfxg=88798-3) 37.4 % 39.6-49.0 MCV (test jofx=AUI2273) 88.4 fL 80-100 29.6 MCHC (test code=MCHC) 33.5 g/dL 32.0-36.0 Platelets (test code=PLT) 187 152-406 Red Cell Distribution Width (test code=RDW) 16.0 % 12.1-15.2 Blood platelet mean volume (test vahx=99715-5) 7.2 fL 7.6-11.3 Neutrophils % (test code=TEJA%) 73.1 % 41.7-73.7 Lymphocytes/leuk NFr Bld (test sbbi=30210-7) 19.4 % 15.3-44.8 Monocyte percentage (test jbbu=6046-2) 5.8 % 3.3-12.3 Eosinophil % (test tqkn=436-2) 0.9 % 0-4.4 Basophil % (test ktep=97065-7) 0.8 % 0-1.3 Absolute neutrophil count (test mfia=582-5) 5.8 1.8-8.0 Absolute lymphocyte count (test zzzb=30228-3) 1.5 0.7-4.9 Absolute monocyte count (test byyx=481-1) 0.5 0.1-1.3 Absolute Eosinophils (test code=EOA) 0.1 0-0.5 Absolute Basophils (test code=BASA) 0.1 0-0.5 Arterial blood gas tfbnbyhqetj3592-47-67 00:25:00* Test Item Value Reference Range Comments Blood gas pH assay (test yqrw=93680-2) 7.41 7.35-7.45 Blood partial pressure of carbon dioxide measurement (test vtyp=57446-7) 38.3 mm[Hg] 35-45 Blood partial pressure of oxygen measurement (test kedh=23179-8) 77.5 mm[Hg] 75-100 Blood Gas HCO3 (test code=ABGHCO3) 23.7 mmol/L 22-28 Blood base excess determination (test yudv=2578-2) -0.3 mmol/L Arterial blood oxygen saturation measurement (test ilia=8580-2) 95.6 % 92-98.5 Arterial blood fractional oxyhemoglobin (test xxgr=5008-4) 93.2 % 94-97 Arterial blood carboxyhemoglobin measurement (test csiq=4682-0) 1.5 % 0-1.5 Blood Gas Methemoglobin (test code=ABGMETHB) 1.0 % 0-1.5 Blood Gas THB (test code=ABGTHB) 12.3 g/dL 12-18 Blood Gas Inspired Oxygen (test code=ABGFIO2) 21.0 % Repeated & Called to dr. liao on 09/02/18 at 0025 by MALENA Was there 100% Readback? y Comment Bed:7 on room air. + /id/allens test. [facility]. [facility] CNZAZ4212-15-78 23:21:00* Test Item Value Reference Range Comments SODIUM (test code=NA) 138 mEq/L 134-147 POTASSIUM (test code=K) 4.6 mEq/L 3.4-5.0 CHLORIDE (test code=CL) 100 mEq/L 100-108 CARBON DIOXIDE (test code=CO2) 28 mEq/L 21-33 ANION GAP (test code=GAP) 15 0-20 GLUCOSE (test code=GLU) 289 mg/dL 70-110 BLOOD UREA NITROGEN (test code=BUN) 10 mg/dL 7-18 GLOMERULAR FILTRATION RATE (test code=GFR) 65.2 95-105 Units of measure=ml/min/1.73 m2 CREATININE (test code=CREAT) 1.2 mg/dL 0.6-1.3 CALCIUM (test code=CA) 8.8 mg/dL 8.0-10.5 OIXORFXD-S1579-48-22 23:21:00* Test Item Value Reference Range Comments TROPONIN-I (test code=TROPI) < 0.015 ng/mL 0.000-0.045 Negative: <=0.045 Positive: >=0.046 Correlation with serial results, other cardiac markers andclinical findings is necessary to determine the clinicalsignificance of this result. Results using different methodologies should not be comparedto one another as quantitative results may vary by method. JPUDWBJ2250-91-54 23:21:00* Test Item Value Reference Range Comments ALCOHOL (test code=ALC) < 0.003 G/dL <0.003 Ethyl Alcohol Interpretation: 0.100 gm/dL - Legally Intoxicated 0.300-0.400 gm/dL - Severely Intoxicated >0.400 gm/dL - Potentially LethalResults are for Medical purposes only, and not for Legal orEmployment evaluation purposes. M-YHXQP5798-37NAGVB7356-96-10 23:16:00* Test Item Value Reference Range Comments D-DIMER (test code=DDIMER) < 215 ng/mlFEU <=500 THROMBOSIS AND/OR PULMONARY EMBOLISM AND THE CLINICAL CUT- OFF VALUE FOR EXCLUSION (500 ng/mL FEU) OF THESE CONDITIONSIS VALIDATED BY THE REPLENISHMENT MERCHANDISING ASSOCIATE OF THE METHOD. A NEGATIVE D-DIMER RESULT WHEN COMBINED WITH A CLINICALASSESSMENT OF LOW PRETEST PROBABILITY HAS BEEN SHOWN TO HAVEA HIGH NEGATIVE PREDICTIVE VALUE OF DVT OR PE. D-DIMER VALUES >500 ng/mL FEU ARE NOT DIAGNOSTIC FOR DVT, PEor DIC WITHOUT OTHER CONFIRMATORY TESTS AND APPROPRIATECLINICAL EUALUATIONS. CBC W/AUTO BOOR9979-73-02 23:04:00* Test Item Value Reference Range Comments WHITE BLOOD CELL (test code=WBC) 7.13 x10 3/uL 4.5-11.0 RED BLOOD CELL (test code=RBC) 4.51 x10 6/uL 4.00-5.60 HEMOGLOBIN (test code=HGB) 13.2 g/dL 12.5-16.9 HEMATOCRIT (test code=HCT) 40.4 % 37.5-50.7 MEAN CELL VOLUME (test code=MCV) 89.6 fL 81.0-99.0 MEAN CELL HGB (test code=MCH) 29.3 pg 27.0-33.0 MEAN CELL HGB CONCETRATION (test code=MCHC) 32.7 g/dL 33.0-37.0 RED CELL DISTRIBUTION WIDTH CV (test code=RDW) 14.2 % 11.5-14.5 RED CELL DISTRIBUTION WIDTH SD (test code=RDW-SD) 45.8 fL 37.0-54.0 PLATELET COUNT (test code=PLT) 186 x10 3/uL 150-400 MEAN PLATELET VOLUME (test code=MPV) 8.8 fL 7.0-9.0 NEUTROPHIL % (test code=NT%) 74.3 % 56.0-77.0 IMMATURE GRANULOCYTE % (test code=IG%) 0.3 % 0.0-2.0 LYMPHOCYTE % (test code=LY%) 18.5 % 14.0-32.0 MONOCYTE % (test code=MO%) 5.8 % 4.8-9.0 EOSINOPHIL % (test code=EO%) 0.7 % 0.3-3.7 BASOPHIL % (test code=BA%) 0.4 % 0.0-2.0 NUCLEATED RBC % (test code=NRBC%) 0.0 % 0-0 NEUTROPHIL # (test code=NT#) 5.30 x10 3/uL 2.0-7.6 IMMATURE GRANULOCYTE # (test code=IG#) 0.02 x10 3/uL 0.00-0.03 LYMPHOCYTE # (test code=LY#) 1.32 x10 3/uL 1.0-3.8 MONOCYTE # (test code=MO#) 0.41 x10 3/uL 0.1-0.8 EOSINOPHIL # (test code=EO#) 0.05 x10 3/uL 0.0-0.2 BASOPHIL # (test code=BA#) 0.03 x10 3/uL 0.0-0.2 NUCLEATED RBC # (test code=NRBC#) 0.00 x10 3/uL 0.0-0.1 MANUAL DIFF REQUIRED (test code=MDIFF) NO - XR CHEST 1 [id number] 22:47:00 FAX: Paula Pagan MD [phone] [place]: [facility]: [facility] FAX: Medardo Berman MD Name: DAVID SAMUELS [facility] : 1970 Age/S: 47/M [address] [place] [address] Unit #: [id number] Loc: [place] [address] Phys: Medardo Berman MD Acct: [id number] Dis Date: Status: REG ER PHONE #: [phone] Exam Date: 08/31/20188 FAX #: [phone] Reason: CHEST PAIN EXAMS: CPT CODE: [id number] XR CHEST 1 V 76385 Clinical Indication: CHEST PAIN Comparison: Chest x-ray August 29, 2018 FINDINGS: The patient is rotated to the right. The frontal chest radiograph shows normal lung volumes without interstitial or airspace opacities, pleural effusions or pneumothorax. The heart is normal in size. The trachea is midline. There are no clinically significant osseous abnormalities noted. IMPRESSION: No chest radiographic evidence of acute cardiopulmonary disease. SL: [id number] at 3327 Reported and signed by: Eddie Saenz M.D. CC: Paula Clay MD; Medardo Berman MD Technologist: RT Nadya(R) Trnscrd Date/Time/By: 08/31/2018 (918) : By: KushalLNV Orig Print D/T: S: 08/31/2018 (6607) PAGE 1 Signed Report - CT C-SPINE W/O [id number] 22:36:00 Name: DAVDI SAMUELS [facility] : 1970 Age/S: 47 / M [address] [place] [address] Unit #: [id number] Loc: [place] [address] Phys: Medardo Berman MD Acct: [id number] Dis Date: Status: REG ER PHONE #: [phone] Exam Date: 08/31/2018 2216 FAX #: [phone] Reason: NECK PAIN EXAMS: CPT CODE: [id number] CT C-SPINE W/O CONT 50219 Clinical Indication: NECK PAIN; Comparison: CT cervical spine August 13, 2018 Technique: Multi-detector CT imaging of the cervical spine is performed. Coronal and sagittal reconstructions were obtained. CT Radiation Dose DLP: 368 mGy-cm FINDINGS: There is normal alignment of the cervical spine. The prevertebral soft tissues, atlanto-dental interspace and craniocervical junction are normal. The posterior elements and spinous processes are normal. The facet joint, spinolaminar and spinous process alignment are normal. There are no fractures or subluxations of the cervical spine. The C2-C3 to C7- T1 disc space levels show no disc protrusions within the limits of CT modality assessment. There are no central or foraminal stenoses. Nonspecific groundglass opacity is seen in the right lung apex. CT myelogram or MRI of the cervical spine may be performed, if there is further concern. IMPRESSION: No fracture or subluxation of the cervical spine. SL: [id number] at 2236 Reported and signed by: Eddie Saenz M.D. CC: Paula Clay MD; Medardo Berman MD Technologist:RT Scot(R) CTDI: DLP: Trnscb Date/Time: 08/31/2018 (2235) [email or web address] Orig Print D/T: S: 08/31/2018 (4745) CTDI: DLP: PAGE 1 Signed Report - CT HEAD/BRAIN W/O CONT 2018-08-31 22:35:00 Name: DAVID SAMUELS [facility] : 1970 Age/S: 47 / M [address] [place] [address] Unit #: [id number] Loc: [place] [address] Phys: Medardo Berman MD Acct: [id number] Dis Date: Status: REG ER PHONE #: [phone] Exam Date: 08/31/20182215 FAX #: [phone] Reason: HEADACHE EXAMS: CPT CODE: [id number] CT HEAD/BRAIN W/O CONT 53560 CT HEAD WITHOUT CONTRAST INDICATION: Acute headache post injury. Seizure. COMPARISON: 08/30/2018 CT head TECHNIQUE: Noncontrast CT head was performed from skull base to vertex at 3 mm slice collimation. Coronal and sagittal reconstructions performed. DOSE: CT imaging performed at this location utilizes radiation dose optimization technique which includes one or more of the followin) Automated exposure control; 2) Adjustment of the mA and/or kV according to patient's size; 3) Use of iterative reconstruction techniques. DLP: 419 mGy-cm FINDINGS: Motion artifact degrades image quality. BRAIN PARENCHYMA AND VENTRICLES: Armstrong-white matter differentiation is preserved. Ventricles are normal in size. No mass effect or midline shift. No extra-axial fluid collections. No acute intraparenchymal hemorrhage. Posterior fossa and midline structures appear normal. ORBITS, PARANASAL SINUSES, AND MASTOIDS: Visualized portions of the paranasal sinuses and mastoid air cells are clear. SKULL: Calvarium is intact. IMPRESSION: Motion limited study. No acute intracranial findings. SL: GÓMEZ at 2235 Reported and signed by: Alfred Gongora M.D. CC: Paula Clay MD; Medardo Berman MD Technologist:RT Scot(R) CTDI: DLP: Trnscb Date/Time: 08/31/2018 (2234) [email or web address] Orig Print D/T: S: 08/31/2018 (2237) CTDI: DLP: PAGE 1 Signed Report RULE OUT WI PROFILE 2018-08-31 12:26:00* Test Item Value Reference Range Comments CREATINE KINASE (CK) (test code=CK) 43 Unit/L 26-192 TROPONIN-I (test code=TROPI) < 0.015 NG/ML 0.000-0.045 Negative: </=0.045 Positive: >/=0.046 Correlation with serial results, other cardiac markers, and clinical findings is necessary to determine the clinical significance of this result. Quantitative results using different methodologies should not be compared to one another as numerical results may varyby method. GLUCOSE BEDSIDE [id number] 11:46:00* Test Item Value Reference Range Comments GLUCOSE BEDSIDE TESTING (test code=GLUBED) 233 mg/dL 70-110 GLUCOSE BEDSIDE [id number] 08:12:00* Test Item Value Reference Range Comments GLUCOSE BEDSIDE TESTING (test code=GLUBED) 245 mg/dL 70-110 GLUCOSE BEDSIDE [id number] 21:38:00* Test Item Value Reference Range Comments GLUCOSE BEDSIDE TESTING (test code=GLUBED) 198 mg/dL 70-110 - CT HEAD/BRAIN W/O [id number] 18:42:00 Name: DAVID SAMUELS [facility] : 1970 Age/S: 47 / M [address] Unit #: [id number] Loc: [place] [address] Phys: Charlie Brandt MD Acct: [id number] Dis Date: Status: ADM IN PHONE #: [phone] Exam Date: 08/30/20181833 FAX #: Reason: to R/o CVA EXAMS: CPT: [id number] CT HEAD/BRAIN W/O CONT 74678 EXAM: - CT HEAD/BRAIN W/O CONT Location code:B2 HISTORY: 47-year-old male R/o CVA TECHNIQUE: Axial CT images from the skull base to the vertex without intravenous contrast. Coronal and sagittal reformatted images were created from the data set. One or more of the following dose reduction techniques were used: Automated exposure control, adjustment of the mA and/or kV according to patient size, and/or utilization of iter ative reconstruction technique. DLP: 704 mGy-cm. COMPARISO N: Head CT 22 hours earlier FINDINGS: Intracranial: No abnormal brain parenchymal density. No evidence of acute infarction, int racranial hemorrhage, mass or mass effect, or abnormal extra-axial fluid c ollection. The ventricular system and sulci are age appropriate. The density in the larger dural sinuses is grossly normal. Bones: There is no evidence of acute displaced calvarial fracture. Sinuses: The visualized portions of the paranasal sinuses of si gnificant opacification.The mastoid air cells are clear. Orbits/So ft Tissues: The visualized orbits show no significant abnormalities. The visualized soft tissues are unremarkable. IMPRESSION: 1. No CT evidence of acute intracranial abnormality. Elect ronically Signed by Callie Hayward on 08/30/2018 at 1842 Reported and signed by: Nandini Hayward M.D. PAGE 1 Signed Report (CONTINUED) Name: DAVID SAMUELS [facility] : 1970 Age/S: 47 / M [address] Unit #: [id number] Loc: [place] [address] Phys: Charlie Brandt MD Acct: [id number] Dis Date: Status: ADM IN PHONE #: [phone] Exam Date: 2018 1834 FAX #: Reason: to R/o CVA EXAMS: CPT: [id number] CT HEAD/BRAIN W/O CONT 704 50 <Continued> CC: Paula Clay MD; Charlie Brandt MD Technologist:Shawn Saavedra, RT(R)(CT); .. CTDI: DLP: Trnscb Date/Time: 08/30/2018 (1841) t.SDR.JSL Orig Print D/T: S: 08/30/2018 (1845) CTDI: DLP: PAGE 2 Signed Report GLUCOSE BEDSIDE [id number] 17:50:00* Test Item Value Reference Range Comments GLUCOSE BEDSIDE TESTING (test code=GLUBED) 148 mg/dL 70-110 GLUCOSE BEDSIDE [id number] 16:39:00* Test Item Value Reference Range Comments GLUCOSE BEDSIDE TESTING (test code=GLUBED) 168 mg/dL 70-110 - DUP EXTRACRANIAL [id number] 16:03:00 Name: DAVID SAMUELS [facility] : 1970 Age/S: 47 / M [address] Unit #: [id number] Loc: [place] [address] Phys: Ana Alvarez TRACTOR TRAILER OPERATOR Acct: [id number] Dis Date: Status: ADM IN PHONE #: [phone] Exam Date: 08/30/2018 1406 FAX #: Reason: SYNCOPE EXAMS: CPT: [id number] DUP EXTRACRANIAL YAS 83044 R16 CAROTID DUPLEX ULTRASOUND HISTORY: SYNCOPE TECHNIQUE: Grayscale real-time B-mode imaging with spectral and color flow Doppler analysis was performed of the neck to evaluate the extracranial carotid system. COMPARISON: None FINDINGS: Peak systolic velocities in cm/sec: Right CCA: 165 Right ICA: 100 Right ECA: 118 Left CCA: 113 Left ICA: 98 Left ECA: 119 Right IC/CC ratio: 0.6 Left IC/CC ratio: 0.9 Mild scattered atherosclerotic plaque in the right carotid bulb without hemodynamically significant stenosis. Antegrade flow seen in both vertebral arteri es. IMPRESSION: No hemodynamically sig nificant stenosis (greater than 50%) within the extracranial internal ca rotid arteries. NOTE: Degree of stenosis is based on veloci ty criteria as defined by the Society of Radiologists in Ultrasound Cons ensus Conference Radiology 2003. at 1603 Reported and alisa d by: Teddy Bolanos M.D. PAGE 1 Signed Report (CONTINUED) Name: DAVID SAMUELS [facility] : 1970 Age/S: 47 / M [address] Unit #: [id number] Loc: [place] [address] Phys: Ana Alvarez TRACTOR TRAILER OPERATOR Acct: [id number] Dis Date: Status: ADM IN PHONE #: [phone] Exam Date: 08/30/2018 1406 FAX #: Reason: SYNCOPE EXAMS: CPT: [id number] DUP EXTRACRANIAL YAS 90353 < Continued> CC: Paula Clay MD; Charlie Brandt MD; Ana Alvarez NP Technologist: Silva Ortiz [facility] Date/Time: 08/30/2018 (5303) KushalVB7 PAGE 2 Signed Report Name: DAVID SAMUELS [facility] : 1970 Age/S: 47 / M [address] Unit #: [id number] Loc: [place] [address] Phys: Ana Alvarez TRACTOR TRAILER OPERATOR Acct: [id number] Dis Date: Status: ADM IN PHONE #: [phone] Exam Date: 08/30/2018 1406 FAX #: Reason: SYNCOPE EXAMS: CPT: [id number] DUP EXTRACRANIAL YAS 76642 < Continued> Orig Print D/T: S: 08/30/2018 (1606) Probe: PAGE 3 Signed Report LIPID PROFILE (CORONARY RISK)2018-08-30 11:56:00* Test Item Value Reference Range Comments TRIGLYCERIDES (test code=TRIG) 216 MG/DL 0-150 CHOLESTEROL (test code=CHOL) 140 MG/DL 133-200 CHOLESTEROL/HDL RATIO (test code=CHOLHDL) 3.50 RATIO >0 HDL CHOLESTEROL (test code=HDL) 40 MG/DL 40-59 NON-HDL CHOLESTEROL (test code=NHDL) 100 mg/dL <130 LIPOPROTEIN LDL (test code=LDL) 79 MG/DL 0-129 LDL/HDL (test code=LDL/HDL) 1.97 Ratio 1.48-3.22 Avg THYROID STIMULATING [id number] 11:56:00* Test Item Value Reference Range Comments THYROID STIMULATING HORMONE (test code=TSH) 2.500 mcIU/ML 0.340-4.820 GLUCOSE BEDSIDE [id number] 11:36:00* Test Item Value Reference Range Comments GLUCOSE BEDSIDE TESTING (test code=GLUBED) 260 mg/dL 70-110 GLUCOSE BEDSIDE [id number] 07:50:00* Test Item Value Reference Range Comments GLUCOSE BEDSIDE TESTING (test code=GLUBED) 334 mg/dL 70-110 BASIC METABOLIC [id number] 06:20:00* Test Item Value Reference Range Comments SODIUM (test code=NA) 136 mmol/L 134-147 POTASSIUM (test code=K) 3.8 mmol/L 3.4-5.0 CHLORIDE (test code=CL) 102 mmol/L 100-108 CARBON DIOXIDE (test code=CO2) 27 mmol/L 21-32 ANION GAP (test code=GAP) 7.0 GAP calc 4.0-15.0 GLUCOSE (test code=GLU) 200 MG/DL 70-110 BLOOD UREA NITROGEN (test code=BUN) 13 MG/DL 7-18 GLOMERULAR FILTRATION RATE (test code=GFR) >=60 max estimate estGFR >60 CREATININE (test code=CREAT) 1.2 MG/DL 0.8-1.3 CALCIUM (test code=CA) 8.6 MG/DL 8.5-10.1 CBC W/AUTO [id number] 06:04:00* Test Item Value Reference Range Comments WHITE BLOOD CELL (test code=WBC) 6.2 K/mm3 3.5-11.0 RED BLOOD CELL (test code=RBC) 4.36 M/mm3 4.70-6.10 HEMOGLOBIN (test code=HGB) 13.5 G/DL 12.3-15.9 HEMATOCRIT (test code=HCT) 38.7 % 35.8-46.7 MEAN CELL VOLUME (test code=MCV) 88.8 Fl 86.3-98.9 MEAN CELL HGB (test code=MCH) 31.0 pg 28.9-34.4 MEAN CELL HGB CONCETRATION (test code=MCHC) 34.9 G/DL 32.1-34.5 RED CELL DISTRIBUTION WIDTH (test code=RDW) 15.0 SD 11.5-14.5 PLATELET COUNT (test code=PLT) 167.0 K/mm3 150-450 MEAN PLATELET VOLUME (test code=MPV) 8.40 fL 7.0-9.6 NEUTROPHIL % (test code=NT%) 63.2 % 40-76 LYMPHOCYTE % (test code=LY%) 29.1 % 20.5-51.1 MONOCYTE % (test code=MO%) 6.1 % 1.7-9.3 EOSINOPHIL % (test code=EO%) 1.4 % 0.0-6.0 BASOPHIL % (test code=BA%) 0.2 % 0.0-2.0 NEUTROPHIL # (test code=NT#) 3.93 K/mm3 1.8-7.6 LYMPHOCYTE # (test code=LY#) 1.8 K/mm3 0.6-3.0 MONOCYTE # (test code=MO#) 0.4 K/mm3 0.2-1.5 EOSINOPHIL # (test code=EO#) 0.1 K/mm3 0.0-0.4 BASOPHIL # (test code=BA#) 0.0 K/mm3 0.0-0.2 MANUAL DIFF REQUIRED (test code=MDIFF) NO DIFF/SCN CRITERIA [id number] 00:57:00* Test Item Value Reference Range Comments TROPONIN-I (test code=TROPI) < 0.015 NG/ML 0.000-0.045 Negative: </=0.045 Positive: >/=0.046 Correlation with serial results, other cardiac markers, and clinical findings is necessary to determine the clinical significance of this result. Quantitative results using different methodologies should not be compared to one another as numerical results may varyby method. Completed by Nursing: NOCOMPREHENSIVE METABOLIC [id number] 20:28:00* Test Item Value Reference Range Comments SODIUM (test code=NA) 136 mmol/L 134-147 POTASSIUM (test code=K) 3.9 mmol/L 3.4-5.0 CHLORIDE (test code=CL) 103 mmol/L 100-108 CARBON DIOXIDE (test code=CO2) 24 mmol/L 21-32 ANION GAP (test code=GAP) 9.0 GAP calc 4.0-15.0 GLUCOSE (test code=GLU) 148 MG/DL 70-110 BLOOD UREA NITROGEN (test code=BUN) 15 MG/DL 7-18 GLOMERULAR FILTRATION RATE (test code=GFR) >=60 max estimate estGFR >60 CREATININE (test code=CREAT) 1.1 MG/DL 0.8-1.3 TOTAL PROTEIN (test code=PROT) 7.0 G/DL 6.4-8.2 ALBUMIN (test code=ALB) 3.5 G/DL 3.4-5.0 GLOBULIN (test code=GLOB) 3.5 GM/dL ALBUMIN/GLOBULIN RATIO (test code=A/G) 1.0 RATIO 1.2-2.2 CALCIUM (test code=CA) 9.1 MG/DL 8.5-10.1 BILIRUBIN TOTAL (test code=BILT) 0.20 MG/DL 0.2-1.2 SGOT/AST (test code=AST) 23 Unit/L 15-37 SGPT/ALT (test code=ALT) 32 Unit/L 12-78 ALKALINE PHOSPHATASE TOTAL (test code=ALKP) 78 Unit/L 50-136 Completed by Nursing: [id number] 20:28:00* Test Item Value Reference Range Comments LIPASE (test code=LIP) 137 Unit/L 114-286 Completed by Nursing: [id number] 20:28:00* Test Item Value Reference Range Comments TROPONIN-I (test code=TROPI) < 0.015 NG/ML 0.000-0.045 Negative: </=0.045 Positive: >/=0.046 Correlation with serial results, other cardiac markers, and clinical findings is necessary to determine the clinical significance of this result. Quantitative results using different methodologies should not be compared to one another as numerical results may varyby method. Completed by Nursing: NOCOMPREHENSIVE METABOLIC [id number] 20:23:00* Test Item Value Reference Range Comments SODIUM (test code=NA) 136 mmol/L 134-147 POTASSIUM (test code=K) 3.9 mmol/L 3.4-5.0 CHLORIDE (test code=CL) 103 mmol/L 100-108 CARBON DIOXIDE (test code=CO2) 24 mmol/L 21-32 ANION GAP (test code=GAP) 9.0 GAP calc 4.0-15.0 GLUCOSE (test code=GLU) 148 MG/DL 70-110 BLOOD UREA NITROGEN (test code=BUN) 15 MG/DL 7-18 GLOMERULAR FILTRATION RATE (test code=GFR) estGFR >60 CREATININE (test code=CREAT) MG/DL 0.8-1.3 TOTAL PROTEIN (test code=PROT) G/DL 6.4-8.2 ALBUMIN (test code=ALB) G/DL 3.4-5.0 GLOBULIN (test code=GLOB) GM/dL ALBUMIN/GLOBULIN RATIO (test code=A/G) RATIO 1.2-2.2 CALCIUM (test code=CA) 9.1 MG/DL 8.5-10.1 BILIRUBIN TOTAL (test code=BILT) MG/DL 0.2-1.2 SGOT/AST (test code=AST) Unit/L 15-37 SGPT/ALT (test code=ALT) Unit/L 12-78 ALKALINE PHOSPHATASE TOTAL (test code=ALKP) Unit/L 50-136 Completed by Nursing: [id number] 20:23:00* Test Item Value Reference Range Comments LIPASE (test code=LIP) 137 Unit/L 114-286 Completed by Nursing: [id number] 20:23:00* Test Item Value Reference Range Comments TROPONIN-I (test code=TROPI) NG/ML 0.000-0.045 Completed by Nursing: NOCOMPREHENSIVE METABOLIC [id number] 20:16:00* Test Item Value Reference Range Comments SODIUM (test code=NA) 136 mmol/L 134-147 POTASSIUM (test code=K) 3.9 mmol/L 3.4-5.0 CHLORIDE (test code=CL) 103 mmol/L 100-108 CARBON DIOXIDE (test code=CO2) 24 mmol/L 21-32 ANION GAP (test code=GAP) 9.0 GAP calc 4.0-15.0 GLUCOSE (test code=GLU) 148 MG/DL 70-110 BLOOD UREA NITROGEN (test code=BUN) MG/DL 7-18 GLOMERULAR FILTRATION RATE (test code=GFR) estGFR >60 CREATININE (test code=CREAT) MG/DL 0.8-1.3 TOTAL PROTEIN (test code=PROT) G/DL 6.4-8.2 ALBUMIN (test code=ALB) G/DL 3.4-5.0 GLOBULIN (test code=GLOB) GM/dL ALBUMIN/GLOBULIN RATIO (test code=A/G) RATIO 1.2-2.2 CALCIUM (test code=CA) 9.1 MG/DL 8.5-10.1 BILIRUBIN TOTAL (test code=BILT) MG/DL 0.2-1.2 SGOT/AST (test code=AST) Unit/L 15-37 SGPT/ALT (test code=ALT) Unit/L 12-78 ALKALINE PHOSPHATASE TOTAL (test code=ALKP) Unit/L 50-136 Completed by Nursing: [id number] 20:16:00* Test Item Value Reference Range Comments LIPASE (test code=LIP) 137 Unit/L 114-286 Completed by Nursing: [id number] 20:16:00* Test Item Value Reference Range Comments TROPONIN-I (test code=TROPI) NG/ML 0.000-0.045 Completed by Nursing: NOCBC W/AUTO [id number] 20:07:00* Test Item Value Reference Range Comments WHITE BLOOD CELL (test code=WBC) 8.0 K/mm3 3.5-11.0 RED BLOOD CELL (test code=RBC) 4.23 M/mm3 4.70-6.10 HEMOGLOBIN (test code=HGB) 13.1 G/DL 12.3-15.9 HEMATOCRIT (test code=HCT) 37.2 % 35.8-46.7 MEAN CELL VOLUME (test code=MCV) 87.9 Fl 86.3-98.9 MEAN CELL HGB (test code=MCH) 31.0 pg 28.9-34.4 MEAN CELL HGB CONCETRATION (test code=MCHC) 35.2 G/DL 32.1-34.5 RED CELL DISTRIBUTION WIDTH (test code=RDW) 14.6 SD 11.5-14.5 PLATELET COUNT (test code=PLT) 167.0 K/mm3 150-450 MEAN PLATELET VOLUME (test code=MPV) 8.50 fL 7.0-9.6 NEUTROPHIL % (test code=NT%) 75.4 % 40-76 LYMPHOCYTE % (test code=LY%) 17.8 % 20.5-51.1 MONOCYTE % (test code=MO%) 5.6 % 1.7-9.3 EOSINOPHIL % (test code=EO%) 0.8 % 0.0-6.0 BASOPHIL % (test code=BA%) 0.4 % 0.0-2.0 NEUTROPHIL # (test code=NT#) 6.04 K/mm3 1.8-7.6 LYMPHOCYTE # (test code=LY#) 1.4 K/mm3 0.6-3.0 MONOCYTE # (test code=MO#) 0.5 K/mm3 0.2-1.5 EOSINOPHIL # (test code=EO#) 0.1 K/mm3 0.0-0.4 BASOPHIL # (test code=BA#) 0.0 K/mm3 0.0-0.2 MANUAL DIFF REQUIRED (test code=MDIFF) NO DIFF/SCN CRITERIA - CT HEAD/BRAIN W/O [id number] 19:49:00 Name: DAVID SAMUELS [facility] : 1970 Age/S: 47 / M [address] Unit #: [id number] Loc: [place] [address] Phys: Ben Griggs MD Acct: [id number] Dis Date: Status: REG ER PHONE #: [phone] Exam Date: 08/29/2018 193 FAX #: Reason: fall, multiple blood thinners, syncopy EXAMS: CPT: [id number] CT HEAD/BRAIN W/O CONT 25195 C3 TIME OF STUDY: 08/29/2018 7:17 PM REASON FOR EXAM: fall, multiple blood thinners, syncope COMPARISON: 1 day prior. TECHNIQUE: Routine non contrast enhanced axial images were obtained from the skull base to the vertex.Sagittal and coronal reformats were obtained and reviewed. One or more of the following radiation dose reduction techniques was used: automated exposure control, adjustment of mA and/or KV according to patient size, and/or utilization of iterative reconstruction technique. FINDINGS: The ventricles and cortical sulci are age-appropriate. There is no midline shift or mass-effect. No acute intra-axial h emorrhage is seen. There are no abnormal areas of increased or decreased density to suggest acute hemorrhage or edema. No extra-axial masses or co llections are present. The bony calvarium is intact. The visuali zed paranasal sinuses are clear. IMPRESSION: No acute intracranial abnormality. No CT evidence of large acute cortical infarction. No hemorrhage or focal intra-axial mass. at 1949 Reporte d and signed by: Suresh Akers M.D. CC: Ben Griggs MD; Paula carrasco MD Technologist:Judy Marte, RT(R)(CT); .. CTDI: DLP: Trnscb Date/Time: 08/29/2018 (1948) t.SDR.SI1 Orig Print D/T: S: 08/29/2018 (1951) CTDI: DLP: PAGE 1 Signed Report - XR CHEST 1 [id number] 19:44:00 Name: DAVID SAMUELS [facility] : 1970 Age/S: 47 / M [address] Unit #: [id number] Loc: [place] [address] Phys: Ben Griggs MD Acct: [id number] Dis Date: Status: REG ER PHONE #: [phone] Exam Date: 08/29/2018 193 FAX #: Reason: fall, chest pain EXAMS: CPT: [id number] XR CHEST 1 V 27578 Fluoro Time: DAP (Gy m2): Air Kerma (mGy): AFTER HOURS SERVICE ON: 08/29/2018 7:43 PM AP Portable Chest Location Code M12 HISTORY: fall, chest pain FINDINGS: There are no infiltrates. There are no pleural effusions. There is no pneumothorax. Cardiac silhouette and mediastinum appear within normal limits. IMPRESSION: No active intrathoracic findings. at 1944 Reported and signed by: Charmaine Montenegro M.D. CC: Ben Griggs MD; Paula Clay MD PAGE 1 Signed Report Name: DAVID SAMUELS [facility] : 1970 Age/S: 47 / M [address] Unit #: [id number] Loc: [place] [address] Phys: Ben Griggs MD Acct: [id number] Dis Date: Status: REG ER PHONE #: [phone] Exam Date: 08/29/2018 193 FAX #: Reason: fall, chest pain EXAMS: CPT: [id number] XR CHEST 1 V 23783 Fluoro Time: DAP (Gy m2): Air Kerma (mGy): <Continued> Technologist: Judy Marte, RT(R)(CT); ... Trnscb Emlo e/Time: 08/29/2018 (1943) [id number] Orig Print D/T: S: (1946) PAGE 2 Signed Report [id number] 21:09:00 * Test Item Value Reference Range Comments GLUBED (test code=GLUBED) 314 MG/DL 70-110 Performed by certified metal bending machine operator at [facility] DRUGS OF ABUSE SCREEN [id number] 20:44:00* Test Item Value Reference Range Comments URN COCAINE (test code=COCAURN) NEGATIVE NEGATIVE URN CANNABINOIDS (test code=CANNABURN) NEGATIVE NEGATIVE URN AMPHETAMINE (test code=AMPHETURN) NEGATIVE NEGATIVE URN BARBITURATE (test code=BARBITURN) NEGATIVE NEGATIVE URN BENZODIAZEPINE (test code=BENZOURN) POSITIVE NEGATIVE Cut-off value:200 ng/mL URN OPIATES (test code=OPIATURN) NEGATIVE NEGATIVE Cut-off value:2000 ng/mL URN PHENCYCLIDINE (PCP) (test code=PHENCURN) NEGATIVE NEGATIVE Cutoffs:Barbiturates 200 ng/mLBenzodiazepines 200 ng/mLTHC Cannabinoids 50 ng/mLOpiates(Morphine) 2000 ng/mLAmphetamine 1000 ng/mLCocaine 300 ng/mLPCP phencyclidine 25 ng/mL Unconfirmed screening results shouldnot be used for non-medical purposes. DRUGS OF ABUSE SCREEN [id number] 20:32:00* Test Item Value Reference Range Comments URN COCAINE (test code=COCAURN) NEGATIVE NEGATIVE URN CANNABINOIDS (test code=CANNABURN) NEGATIVE NEGATIVE URN AMPHETAMINE (test code=AMPHETURN) NEGATIVE NEGATIVE URN BARBITURATE (test code=BARBITURN) NEGATIVE NEGATIVE URN BENZODIAZEPINE (test code=BENZOURN) NEGATIVE URN OPIATES (test code=OPIATURN) NEGATIVE NEGATIVE Cut-off value:2000 ng/mL URN PHENCYCLIDINE (PCP) (test code=PHENCURN) NEGATIVE NEGATIVE Cutoffs:Barbiturates 200 ng/mLBenzodiazepines 200 ng/mLTHC Cannabinoids 50 ng/mLOpiates(Morphine) 2000 ng/mLAmphetamine 1000 ng/mLCocaine 300 ng/mLPCP phencyclidine 25 ng/mL Unconfirmed screening results shouldnot be used for non-medical purposes. - XR T-SPINE [id number] 20:20:00 FAX: Paula Pagan MD [phone] [place]: St: REG FAX: Dee Henley NP [phone] Name: DAVID SAMUELS [facility] : 1970 Age/S: 47/M [address] [place] [address] Unit #: [id number] Loc: [place] [address] Phys: Dee Henley NP Acct: [id number] Dis Date: Status: REG ER PHONE #: [phone] Exam Date: 08/28/2018 1838 FAX #: [phone] Reason: BACK PAIN EXAMS: CPT CODE: [id number] XR T-SPINE 3V 50702 PROCEDURE: Thoracic spine series radiographs, 3 views and 3 imag es. AP, lateral and swimmer's views. INDICATION: Back pain and syncope. COMPARISON: CT cervical spine dated 08/28/2018. Lumba r spine radiographs dated 08/28/2018. Thoracic spine radiographs dated 07/11/2018. FINDINGS: Stable mild dextroscoliosis of the mid to upper thoracic spine. No spondylolisthesis or dislocation. Multilevel mi nimal endplate osteophytes in the spine. Mediastinal silhouette is unremarkable. No vertebral body compression deformity. No significant ch leslie. IMPRESSION: No acute abnormality identified. SL: [place] at 2020 Reported and signed by: Vidhi Grayson M.D. CC: Paula Clay MD; Dee Henley NP Technolog ist: RT Adryan(R) Trnscrd Date/Time/By : 08/28/2018 (2019) : By: KushalMSR4 Orig Print D/T: S: 08/28/2018 (202 3) PAGE 1 Signed Report URINALYSIS [id number] 20:16:00* Test Item Value Reference Range Comments UA COLOR (test code=COLU) STRAW YEL/STRAW UA APPEARANCE (test code=APPU) CLEAR CLEAR UA GLUCOSE DIPSTICK (test code=DGLUU) 3+ NEGATIVE UA BILIRUBIN DIPSTICK (test code=BILU) NEGATIVE NEGATIVE UA KETONE DIPSTICK (test code=KETU) TRACE NEGATIVE UA SPECIFIC GRAVITY (test code=SGU) 1.020 1.005-1.030 UA BLOOD DIPSTICK (test code=KARLOS) NEGATIVE NEGATIVE UA PH DIPSTICK (test code=DARRION) 5.0 5.0-7.0 UA PROTEIN DIPSTICK (test code=PROU) NEGATIVE NEGATIVE UA UROBILINIOGEN DIPSTICK (test code=URO) 0.2 mg/dL 0.2-1.0 UA NITRITE DIPSTICK (test code=JM) NEGATIVE NEGATIVE UA LEUKOCYTE ESTERASE DIPSTICK (test code=LEUU) NEGATIVE NEGATIVE UA WBC (test code=WBCU) 0-3 WBC/HPF 0-3 UA RBC (test code=RBCU) 0-3 RBC/HPF 0-3 UA BACTERIA (test code=BACU) NONE SEEN /HPF NONE SEEN UA SQUAMOUS CELLS (test code=SQU) 0-5 /HPF NONE SEEN UA MUCUS (test code=MUCU) TRACE /LPF NONE SEEN COMMENTS: Clean Catch- CT C-SPINE W/O [id number] 19:20:00 Name: ARVINDDAVID SAMANTHA [facility] : 1970 Age/S: 47 / M [address] [place] [address] Unit #: [id number] Loc: [place] [address] Phys: Najma Henley TRACTOR TRAILER OPERATOR Acct: [id number] Di s Date: Status: REG ER PHONE #: Exam Date: 08/28/2018 190 FAX #: Reason: NECK PAIN EXAMS: CPT CODE: [id number] CT C-SPINE W/ O CONT 96768 PROCEDURE: CT cerv ical spine without contrast. Reconstruction images. INDICATION: N ila pain. Syncope. TECHNIQUE: Multidetector CT imaging of the ce rvical spine was performed. Coronal and sagittal reconstructions were obt ained. COMPARISON: None. FINDINGS: ALIGNMENT AND GENERAL ASSESSMENT: No visualized fractures. Craniocervical junc tion demonstrates normal alignment. No spondylolisthesis throughout the c ervical spine. Facet joints and spinous processes demonstrate normal alig nment. No dislocation. DISK SPACES AND SOFT TISSUES: Multil evel mild degenerative changes identified. MRI is the gold standard to ass ess for disc disease, central canal and foraminal narrowing. The paravertebral soft tissues are normal. VISUALIZED LUNG APICES : Unremarkable. IMPRESSION: 1. No acute abnormality id entified. SL: [place] Electronically S igned by Callie Grayson on 08/28/2018 at 1920 Reported and signed by: Vidhi osborne M.D. CC: Paula Clay MD; Dee Henley NP Technologist:RT Ronnie(R)(CT) CTDI: DLP: Trnscb D ate/Time: 08/28/2018 (1919) [email or web address] Orig Print D/T: S: 08/28/2018 (1922) CTDI: DLP: PAGE 1 Signed Report B-TYPE NATRIURETIC PEPTIDE 2018-08-28 19:16:00* Test Item Value Reference Range Comments B-TYPE NATRIURETIC PEPTIDE (test code=BNP) 22.2 PG/ML 0-100 - CT HEAD/BRAIN W/O [id number] 19:08:00 Name: DAVID SAMUELS [facility] : 1970 Age/S: 47 / M [address] [place] [address] Unit #: [id number] Loc: [place] [address] Phys: Dee Henley NP Acct: [id number] Dis Date: Status: REG ER PHONE #: [phone] Exam Date: 08/28/20181900 FAX #: [phone] Reason: HEADACHE EXAMS: CPT CODE: [id number] CT HEAD/BRAIN W/O CONT 91737 PROCEDURE: CT head without contrast INDICATION: Headache. Syncope. COMPARISON: CT head without contrast dated 08/19/2018, 08/17/2018. TECHNIQUE: Noncontrast helical imaging performed skull base to the vertex. FINDINGS: BRAIN PARENCHYMA: No evidence for acute infarct. Normal armstrong-white interfaces. No focal mass lesions. No mass effect, midline shift or edema. There are no intra-axial or extra-axial fluid collections, intraventricular or intraparenchymal hemorrhage. Pineal, sellar, brainstem, cerebellum and skull base regions appear unremarkable. VENTRICLES AND CISTERNS: Lateral ventricles, 3rd and 4th ventricles appear unremarkable. Basilar cisterns are normal. ORBITS, MASTOIDS AND PARANASAL SINUSES: The visualized aspects of the orbits appear unremarkable. Visualized aspects of the paranasal sinuses appear un remarkable. The mastoid air cells are clear. SKULL: No acut e osseous abnormalities. IMPRESSION: 1. No evidence for acute intracranial abnormality. SL: BEST-Ophelia at 190 Reported and signed by: Vidhi Grayson M.D. CC: Paula Clay MD; Dee Henley NP Technologist:Corinne Gross, RT(R)(CT) CTDI: DLP: Trnscb Date/Time: 08/28/2018 (1907) [email or web address] Orig Print D/T: S: 08/28/2018 (1910) CTDI: DLP: PAGE 1 Signed Report - XR WRIST 3 + V [id number] 18:54:00 FAX: Neha Ramírez DO [phone] [place]: St: [facility] FAX: Paula Pagan MD [phone] FAX: Dee Henley NP [phone] Name: DAVID SAMUELS [facility] : 1970 Age/S: 47/M [address] [place] [address] Unit #: [id number] Loc: [place] [address] Phys: Dee Henley NP Acct: [id number] Dis Date: Status: REG ER PH ONE #: [phone] Exam Date: 08/28/2018 1839 FAX #: [phone] Reason: fall, wrist pain EXAMS: CPT CODE: [id number] XR WRIST 3 + V RT [id number] Procedure: Rig ht Wrist Radiographs. Clinical Indication: Right wrist pain. Comparison: None. FINDINGS: The 3 views o f the right wrist show dorsal soft tissue swelling. No acute displaced fr acture is identified. IMPRESSION: 1. Soft tissue swelling. SL: KAMRONH at 1854 * * Reported and signed by: Ran Alonso M.D. CC: Neha Clements DO; Paula Clay MD; Dee Henley NP Technologist: Luciano Deleon, RT(R) Trnscrd Date/Time/By: 2018 (1853) : By: KushalTDO Orig Print D/T: S: 08/28/2018 (1857) PAGE 1 Signed Report BASIC METABOLIC [id number] 18:52:00* Test Item Value Reference Range Comments SODIUM (test code=NA) 132 mEq/L 134-147 POTASSIUM (test code=K) 4.9 mEq/L 3.4-5.0 CHLORIDE (test code=CL) 99 mEq/L 100-108 CARBON DIOXIDE (test code=CO2) 23 mEq/L 21-33 ANION GAP (test code=GAP) 15 0-20 GLUCOSE (test code=GLU) 430 mg/dL 70-110 BLOOD UREA NITROGEN (test code=BUN) 17 mg/dL 7-18 GLOMERULAR FILTRATION RATE (test code=GFR) 54.6 95-105 Units of measure=ml/min/1.73 m2 CREATININE (test code=CREAT) 1.4 mg/dL 0.6-1.3 CALCIUM (test code=CA) 8.7 mg/dL 8.0-10.5 CPK-MB [id number] 18:52:00* Test Item Value Reference Range Comments CREATINE KINASE (CK) (test code=CK) 73 35-232 Result is in INTERNATIONAL UNITS/LITER CKMB (test code=CKMBT) < 1.0 ng/mL 0-5.0 CUT OFF:>5 ng/mL is suggested as being consistent with AMI. RELATIVE % INDEX (test code=REL%) 1.3 % 0.0-2.5 *CK-MB INTERPRETATION* NORMAL: <5 ng/ml & <2.5% INDEX ABNORMAL: >5 ng/ml & >2.5% INDEX SANTAMARIA ZONE: >5 ng/ml & <2.5% INDEX - SUGGEST CPK ISOENZYME BY ELECTROPHORESIS *PLEASE NOTE* A LOW TOTAL CK MAY CALCULATE TO A FALSELY ELEVATED INDEX. [id number] 18:52:00* Test Item Value Reference Range Comments ALCOHOL (test code=ALC) < 0.003 G/dL <0.003 Ethyl Alcohol Interpretation: 0.100 gm/dL - Legally Intoxicated 0.300-0.400 gm/dL - Severely Intoxicated >0.400 gm/dL - Potentially LethalResults are for Medical purposes only, and not for Legal orEmployment evaluation purposes. PROTHROMBIN [id number] 18:50:00* Test Item Value Reference Range Comments PROTHROMBIN TIME PATIENT (test code=PTP) 12.3 SECONDS 9.3-12.9 INTERNATIONAL NORMAL RATIO (test code=INR) 1.1 0.8-1.2 TARGET INR BY INDICATION Indication INR1. Prophylaxis of venous thrombosis 2.0 - 3.0 (orthopedic surgery), Prophylaxis of venous thrombosis (other than high-risk surgery), Treatment of Deep Vein Thrombosis/Pulmonary Embolism, Prevention of systemic embolism - Tissue heart valves, Acute Myocardial Infarction (to prevent systemic embolism), Valvular heart disease, Atrial Fibrillation, Bileaflet mechanical valve in aortic position.2. Mechanical prosthetic valves (high risk), 2.5 - 3.5 Presence of Lupus Anticoagulant or Antiphospholipid Antibodies, Prevention of systemic embolism - Acute Myocardial Infarction (to prevent recurrent infarct). THROMBOPLASTIN TIME [id number] 18:50:00* Test Item Value Reference Range Comments THROMBOPLASTIN TIME PARTIAL (test code=PTT) 33.9 Seconds 25.0-39.5 Therapeutic Range: 61.8-83.8 Sec Effective 09/07/2013 - XR L-SPINE 2/3 [id number] 18:49:00 FAX: Paula Pagan MD [phone] [place]: St: [facility] FAX: Dee Henley NP [phone] Name: DAVID SAMUELS [facility] : 1970 Age/S: 47/M [address] [place] [address] Blvd Unit #: [id number] Loc: [place] [address] Phys: Dee Henley NP Acct: [id number] Dis Date: Status: REG ER PHONE #: [phone] Exam Date: 08/28/2018 1839 FAX #: [phone] Reason: BACK PAIN EXAMS: CPT CODE: [id number] XR L-SPINE 2/3 VIEWS [id number] Procedure: Lumbar Spine Radiographs. Clinical Venecia cation: Back pain, syncope. Comparison: Radiographs of the lumbar spine 08/19/2018. FINDINGS: The 3 views of th e lumbar spine show five non rib bearing lumbar vertebral segments. There are no fractures, pars defects, or spondylolisthesis. The disc spaces are normal. The posterior elements, spinous processes and transverse processes are normal. The paraspinal soft tissues are unremarkable. The visualized sacroiliac joints are unremarkable. IMPRESSION: 1 . Unremarkable lumbar spine series. SL: JAMILA at 1844 Reported and signed by: Ran Alonso M.D. CC: Paula Clay MD; Mikael Henley NP Technologist: RT Adryan(R) Trnscrd Date/Time/By: 08/28/2018 (745) : By: Yvon Orig Print D/T: S: 08/28/2018 (3657) PAGE 1 Signed Report CBC W/AUTO DIFF 2018-08-28 18:37:00* Test Item Value Reference Range Comments WHITE BLOOD CELL (test code=WBC) 7.31 x10 3/uL 4.5-11.0 RED BLOOD CELL (test code=RBC) 4.37 x10 6/uL 4.00-5.60 HEMOGLOBIN (test code=HGB) 13.1 g/dL 12.5-16.9 HEMATOCRIT (test code=HCT) 38.9 % 37.5-50.7 MEAN CELL VOLUME (test code=MCV) 89.0 fL 81.0-99.0 MEAN CELL HGB (test code=MCH) 30.0 pg 27.0-33.0 MEAN CELL HGB CONCETRATION (test code=MCHC) 33.7 g/dL 33.0-37.0 RED CELL DISTRIBUTION WIDTH CV (test code=RDW) 13.8 % 11.5-14.5 RED CELL DISTRIBUTION WIDTH SD (test code=RDW-SD) 44.6 fL 37.0-54.0 PLATELET COUNT (test code=PLT) 191 x10 3/uL 150-400 MEAN PLATELET VOLUME (test code=MPV) 9.0 fL 7.0-9.0 NEUTROPHIL % (test code=NT%) 81.6 % 56.0-77.0 IMMATURE GRANULOCYTE % (test code=IG%) 0.7 % 0.0-2.0 LYMPHOCYTE % (test code=LY%) 12.9 % 14.0-32.0 MONOCYTE % (test code=MO%) 4.1 % 4.8-9.0 EOSINOPHIL % (test code=EO%) 0.3 % 0.3-3.7 BASOPHIL % (test code=BA%) 0.4 % 0.0-2.0 NUCLEATED RBC % (test code=NRBC%) 0.0 % 0-0 NEUTROPHIL # (test code=NT#) 5.97 x10 3/uL 2.0-7.6 IMMATURE GRANULOCYTE # (test code=IG#) 0.05 x10 3/uL 0.00-0.03 LYMPHOCYTE # (test code=LY#) 0.94 x10 3/uL 1.0-3.8 MONOCYTE # (test code=MO#) 0.30 x10 3/uL 0.1-0.8 EOSINOPHIL # (test code=EO#) 0.02 x10 3/uL 0.0-0.2 BASOPHIL # (test code=BA#) 0.03 x10 3/uL 0.0-0.2 NUCLEATED RBC # (test code=NRBC#) 0.00 x10 3/uL 0.0-0.1 MANUAL DIFF REQUIRED (test code=MDIFF) NO TROPONIN-I [id number] 18:28:00* Test Item Value Reference Range Comments TROPONIN-I RAPID (test code=TROPIRAP) 0.00 ng/mL 0.00-0.08 Performed by certified metal bending machine operator [facility] Global Task Force with joint leadership from the EuropeanSociety of Cardiology (ESC), the [place] [employer] (ACCF), the [place] [employer](AHA) and the World Heart Federation (WHF) refined past criteria of myocardial infarction (WI) with a universal definition of myocardial infarction that supports the use of cTnI as a preferred biomarker for myocardial injury. The universal definition of WI, according to this taskforce, is defined as a typical rise and gradual fall ofcardiac biomarkers (preferably troponin) with at least onevalue above the 99th percentile of the upper reference limit (URL) together with evidence of myocardial ischemia with at least one of the following:* ischemic symptoms,* pathological Q waves on electrocardiogram (ECG),* ischemic ECG changes,* or imaging evidence of new loss of viable myocardium or new regional wall motion abnormality. An elevated troponin value alone is not sufficient todiagnose a myocardial infarction. Rather, the patient sclinical presentation (history, physical exam) and ECGshould be used in conjunction with troponin in thediagnostic evaluation of suspected myocardial infarction. Aserial sampling protocol is recommended to facilitate the identification of temporal changes in troponin levels characteristic of WI. POCT-GLUCOSE [id number] 20:05:00* Test Item Value Reference Range Comments POC-GLUCOSE METER (BEAKER) (test okio=4223) 186 mg/dL 70-110 TESTED AT [facility] [address] [facility] [address] TROPONIN [id number] 19:45:00* Test Item Value Reference Range Comments TROPONIN I (BEAKER) (test aolm=875) < ng/mL 0.00-0.03 Troponin I (TnI) levels must be interpreted in the context of the presenting sym ptoms and the clinical findings. Elevated TnI levels indicate myocardial damage, but are not specific for ischemic heart disease. Elevated TnI levels are seen i n patients with other cardiac conditions (including myocarditis and congestive h eart failure), and slight TnI elevations occur in patients with other conditions , including sepsis, renal failure, acidosis, acute neurological disease, and per sistent tachyarrhythmia.BASIC METABOLIC [id number] 17:19:00* Test Item Value Reference Range Comments SODIUM (BEAKER) (test khgr=032) 132 meq/L 136-145 POTASSIUM (BEAKER) (test ykbx=388) 3.9 meq/L 3.5-5.1 CHLORIDE (BEAKER) (test vggt=187) 103 meq/L 98-107 CO2 (BEAKER) (test nhip=619) 18 meq/L 22-29 BLOOD UREA NITROGEN (BEAKER) (test ctxu=463) 11 mg/dL 7-21 CREATININE (BEAKER) (test nnyc=418) 1.25 mg/dL 0.57-1.25 GLUCOSE RANDOM (BEAKER) (test rwah=193) 355 mg/dL 70-105 CALCIUM (BEAKER) (test fofb=193) 10.3 mg/dL 8.4-10.2 EGFR (BEAKER) (test fdwm=3963) 62 mL/min/1.73 sq m ESTIMATED GFR IS NOT ACCURATE CREATININE CLEARANCE IN PREDICTING GLOMERULAR FILTRATION RATE. ESTIMATED GFR IS NOT APPLICABLE FOR DIALYSIS PATIENTS. CBC W/PLT COUNT & AUTO [id number] 16:59:00* Test Item Value Reference Range Comments WHITE BLOOD CELL COUNT (BEAKER) (test hyhl=033) 6.6 K/ L 3.5-10.5 RED BLOOD CELL COUNT (BEAKER) (test kcru=922) 4.20 M/ L 4.63-6.08 HEMOGLOBIN (BEAKER) (test yqlr=105) 12.9 GM/DL 13.7-17.5 HEMATOCRIT (BEAKER) (test arzi=333) 37.6 % 40.1-51.0 MEAN CORPUSCULAR VOLUME (BEAKER) (test vigt=551) 89.5 fL 79.0-92.2 MEAN CORPUSCULAR HEMOGLOBIN (BEAKER) (test iebq=301) 30.7 pg 25.7-32.2 MEAN CORPUSCULAR HEMOGLOBIN CONC (BEAKER) (test ejui=161) 34.3 GM/DL 32.3-36.5 RED CELL DISTRIBUTION WIDTH (BEAKER) (test mijt=044) 13.1 % 11.6-14.4 PLATELET COUNT (BEAKER) (test hdsp=924) 142 K/CU MM 150-450 MEAN PLATELET VOLUME (BEAKER) (test aone=131) 9.0 fL 9.4-12.4 NUCLEATED RED BLOOD CELLS (BEAKER) (test tboc=195) 0 /100 WBC 0-0 NEUTROPHILS RELATIVE PERCENT (BEAKER) (test vmac=811) 74 % LYMPHOCYTES RELATIVE PERCENT (BEAKER) (test rpvt=863) 18 % MONOCYTES RELATIVE PERCENT (BEAKER) (test hrud=570) 7 % EOSINOPHILS RELATIVE PERCENT (BEAKER) (test augo=253) 1 % BASOPHILS RELATIVE PERCENT (BEAKER) (test roxq=836) 0 % NEUTROPHILS ABSOLUTE COUNT (BEAKER) (test xyjz=222) 4.92 K/ L 1.78-5.38 LYMPHOCYTES ABSOLUTE COUNT (BEAKER) (test jqns=290) 1.20 K/ L 1.32-3.57 MONOCYTES ABSOLUTE COUNT (BEAKER) (test adyv=383) 0.44 K/ L 0.30-0.82 EOSINOPHILS ABSOLUTE COUNT (BEAKER) (test nrmz=886) 0.03 K/ L 0.04-0.54 BASOPHILS ABSOLUTE COUNT (BEAKER) (test jkfo=123) 0.02 K/ L 0.01-0.08 IMMATURE GRANULOCYTES-RELATIVE PERCENT (BEAKER) (test hgmy=9220) 0 % 0-1 KETONE, [id number] 16:58:00* Test Item Value Reference Range Comments KETONES, BLOOD (BEAKER) (test esyh=8726) 0.1 mmol/L <0.4 POCT-GLUCOSE [id number] 16:50:00* Test Item Value Reference Range Comments POC-GLUCOSE METER (BEAKER) (test dvsf=4169) 337 mg/dL 70-110 TESTED AT [facility] [address] [facility] [address] TROPONIN [id number] 21:45:00* Test Item Value Reference Range Comments TROPONIN I (BEAKER) (test mhgy=824) < ng/mL 0.00-0.03 Troponin I (TnI) levels must be interpreted in the context of the presenting sym ptoms and the clinical findings. Elevated TnI levels indicate myocardial damage, but are not specific for ischemic heart disease. Elevated TnI levels are seen i n patients with other cardiac conditions (including myocarditis and congestive h eart failure), and slight TnI elevations occur in patients with other conditions , including sepsis, renal failure, acidosis, acute neurological disease, and per sistent tachyarrhythmia.BASIC METABOLIC [id number] 21:36:00* Test Item Value Reference Range Comments SODIUM (BEAKER) (test idqc=818) 132 meq/L 136-145 POTASSIUM (BEAKER) (test oocw=882) 4.3 meq/L 3.5-5.1 CHLORIDE (BEAKER) (test sufi=382) 103 meq/L 98-107 CO2 (BEAKER) (test eder=733) 20 meq/L 22-29 BLOOD UREA NITROGEN (BEAKER) (test xais=668) 13 mg/dL 7-21 CREATININE (BEAKER) (test ymta=590) 1.29 mg/dL 0.57-1.25 GLUCOSE RANDOM (BEAKER) (test zsow=693) 279 mg/dL 70-105 CALCIUM (BEAKER) (test rnqo=959) 9.0 mg/dL 8.4-10.2 EGFR (BEAKER) (test njlo=7075) 60 mL/min/1.73 sq m ESTIMATED GFR IS NOT ACCURATE CREATININE CLEARANCE IN PREDICTING GLOMERULAR FILTRATION RATE. ESTIMATED GFR IS NOT APPLICABLE FOR DIALYSIS PATIENTS. [id number] 21:29:00* Test Item Value Reference Range Comments PROTIME (BEAKER) (test wvhq=392) 12.5 seconds 11.7-14.7 INR (BEAKER) (test ccjt=741) 0.9 <=5.9 PARTIAL THROMBOPLASTIN TIME (BEAKER) (test qmhg=043) 23.9 seconds 22.5-36.0 RECOMMENDED COUMADIN/WARFARIN INR THERAPY RANGESSTANDARD DOSE: 2.0 - 3.0 Inclu odin: PROPHYLAXIS for venous thrombosis, systemic embolization; TREATMENT for dipti ous thrombosis and/or pulmonary embolus.HIGH RISK: Target INR is 2.5-3.5 for pat ients with mechanical heart valves.CBC W/PLT COUNT & AUTO [id number] 21:17:00* Test Item Value Reference Range Comments WHITE BLOOD CELL COUNT (BEAKER) (test oesp=207) 6.3 K/ L 3.5-10.5 RED BLOOD CELL COUNT (BEAKER) (test gevp=485) 3.84 M/ L 4.63-6.08 HEMOGLOBIN (BEAKER) (test jrot=735) 11.8 GM/DL 13.7-17.5 HEMATOCRIT (BEAKER) (test bzzw=076) 35.2 % 40.1-51.0 MEAN CORPUSCULAR VOLUME (BEAKER) (test xyeh=521) 91.7 fL 79.0-92.2 MEAN CORPUSCULAR HEMOGLOBIN (BEAKER) (test qors=526) 30.7 pg 25.7-32.2 MEAN CORPUSCULAR HEMOGLOBIN CONC (BEAKER) (test iewu=108) 33.5 GM/DL 32.3-36.5 RED CELL DISTRIBUTION WIDTH (BEAKER) (test asbo=614) 13.2 % 11.6-14.4 PLATELET COUNT (BEAKER) (test xcpi=732) 156 K/CU MM 150-450 MEAN PLATELET VOLUME (BEAKER) (test jyrn=754) 9.0 fL 9.4-12.4 NUCLEATED RED BLOOD CELLS (BEAKER) (test zdrp=263) 0 /100 WBC 0-0 NEUTROPHILS RELATIVE PERCENT (BEAKER) (test ddts=402) 68 % LYMPHOCYTES RELATIVE PERCENT (BEAKER) (test wmpb=581) 24 % MONOCYTES RELATIVE PERCENT (BEAKER) (test twff=163) 6 % EOSINOPHILS RELATIVE PERCENT (BEAKER) (test magk=984) 1 % BASOPHILS RELATIVE PERCENT (BEAKER) (test djzp=800) 1 % NEUTROPHILS ABSOLUTE COUNT (BEAKER) (test dfsi=901) 4.23 K/ L 1.78-5.38 LYMPHOCYTES ABSOLUTE COUNT (BEAKER) (test ienk=216) 1.52 K/ L 1.32-3.57 MONOCYTES ABSOLUTE COUNT (BEAKER) (test zsjq=596) 0.38 K/ L 0.30-0.82 EOSINOPHILS ABSOLUTE COUNT (BEAKER) (test emwe=038) 0.06 K/ L 0.04-0.54 BASOPHILS ABSOLUTE COUNT (BEAKER) (test jrmp=539) 0.03 K/ L 0.01-0.08 IMMATURE GRANULOCYTES-RELATIVE PERCENT (BEAKER) (test cbfc=6777) 1 % 0-1 CT, BRAIN, WITHOUT [id number] 19:34:00Reason for exam:->FALLWhat is the patient's sedation requirement?->No SedationFINAL REPORT CT head without contrast INDICATION: Ataxia, head trauma, fall TECHNIQUE: Axial noncontrast CT images through the head were obtained. This exam was performed according to our departmental dose optimization program which includes automated exposure control, adjustment of the mA and/or kV according to patient size and/or use of iterative reconstruction technique. COMPARISON: CT head 05/29/2018 FINDINGS:There is no scalp hematoma or acute calvarial [...] chronic appearing findings as discussed above. Signed: Fei Mendez MDReport Verified Date/Time: 06/04/2018 19:34:16 Reading Location: [facility] Radiology Reading Room -GLUCOSE [id number] 08:45:00* Test Item Value Reference Range Comments POC-GLUCOSE METER (BEAKER) (test wovk=4955) 172 mg/dL 70-110 TESTED AT [facility] [address] [facility] [address] [id number] 06:06:00* Test Item Value Reference Range Comments MAGNESIUM (BEAKER) (test wfbb=823) 2.4 mg/dL 1.6-2.6 Specimen slightly hemolyzed BASIC METABOLIC [id number] 06:06:00* Test Item Value Reference Range Comments SODIUM (BEAKER) (test heze=626) 136 meq/L 136-145 POTASSIUM (BEAKER) (test uzrq=352) 4.8 meq/L 3.5-5.1 Specimen slightly hemolyzed CHLORIDE (BEAKER) (test nfej=220) 101 meq/L 98-107 CO2 (BEAKER) (test djxo=002) 26 meq/L 22-29 BLOOD UREA NITROGEN (BEAKER) (test jaji=467) 12 mg/dL 7-21 CREATININE (BEAKER) (test plub=605) 1.26 mg/dL 0.57-1.25 Specimen slightly hemolyzed GLUCOSE RANDOM (BEAKER) (test xasv=674) 166 mg/dL 70-105 CALCIUM (BEAKER) (test lgve=089) 10.1 mg/dL 8.4-10.2 EGFR (BEAKER) (test vwox=6563) 62 mL/min/1.73 sq m ESTIMATED GFR IS NOT ACCURATE CREATININE CLEARANCE IN PREDICTING GLOMERULAR FILTRATION RATE. ESTIMATED GFR IS NOT APPLICABLE FOR DIALYSIS PATIENTS. CBC W/PLT COUNT & AUTO [id number] 05:18:00* Test Item Value Reference Range Comments WHITE BLOOD CELL COUNT (BEAKER) (test tony=931) 6.1 K/ L 3.5-10.5 RED BLOOD CELL COUNT (BEAKER) (test flcx=728) 4.19 M/ L 4.63-6.08 HEMOGLOBIN (BEAKER) (test pglk=903) 12.9 GM/DL 13.7-17.5 HEMATOCRIT (BEAKER) (test kmcw=827) 38.7 % 40.1-51.0 MEAN CORPUSCULAR VOLUME (BEAKER) (test ivcn=867) 92.4 fL 79.0-92.2 MEAN CORPUSCULAR HEMOGLOBIN (BEAKER) (test qrdg=932) 30.8 pg 25.7-32.2 MEAN CORPUSCULAR HEMOGLOBIN CONC (BEAKER) (test jefl=942) 33.3 GM/DL 32.3-36.5 RED CELL DISTRIBUTION WIDTH (BEAKER) (test eida=581) 13.0 % 11.6-14.4 PLATELET COUNT (BEAKER) (test uwzx=053) 198 K/CU MM 150-450 MEAN PLATELET VOLUME (BEAKER) (test gbjw=082) 9.1 fL 9.4-12.4 NUCLEATED RED BLOOD CELLS (BEAKER) (test sajy=313) 0 /100 WBC 0-0 NEUTROPHILS RELATIVE PERCENT (BEAKER) (test hbcz=649) 50 % LYMPHOCYTES RELATIVE PERCENT (BEAKER) (test qvmb=129) 39 % MONOCYTES RELATIVE PERCENT (BEAKER) (test qwei=375) 8 % EOSINOPHILS RELATIVE PERCENT (BEAKER) (test wixk=646) 1 % BASOPHILS RELATIVE PERCENT (BEAKER) (test kcdv=570) 1 % NEUTROPHILS ABSOLUTE COUNT (BEAKER) (test eqte=213) 3.05 K/ L 1.78-5.38 LYMPHOCYTES ABSOLUTE COUNT (BEAKER) (test updg=929) 2.38 K/ L 1.32-3.57 MONOCYTES ABSOLUTE COUNT (BEAKER) (test jlcb=212) 0.50 K/ L 0.30-0.82 EOSINOPHILS ABSOLUTE COUNT (BEAKER) (test sbwp=155) 0.08 K/ L 0.04-0.54 BASOPHILS ABSOLUTE COUNT (BEAKER) (test kifm=319) 0.04 K/ L 0.01-0.08 IMMATURE GRANULOCYTES-RELATIVE PERCENT (BEAKER) (test ogwq=6336) 1 % 0-1 POCT-GLUCOSE [id number] 23:25:00* Test Item Value Reference Range Comments POC-GLUCOSE METER (BEAKER) (test atjr=2331) 318 mg/dL 70-110 TESTED AT [facility] [address] [facility] [address] RAPID DRUG SCREEN, [id number] 21:29:00* Test Item Value Reference Range Comments BARBITURATE URINE (BEAKER) (test zhvd=866) Negative Negative BENZODIAZEPINE SCREEN URINE (BEAKER) (test owrh=563) Positive Negative COCAINE (METAB.) SCREEN (BEAKER) (test dpup=8974) Negative Negative METHADONE SCREEN (BEAKER) (test otfq=4479) Negative Negative OPIATE SCREEN URINE (BEAKER) (test czlh=433) Positive Negative CANNABINOID SCREEN URINE (BEAKER) (test leqf=736) Negative Negative AMPH/METHAMPH SCREEN (BEAKER) (test vwip=4166) Negative Negative PHENCYCLIDINE SCREEN URINE (BEAKER) (test zwqd=194) Negative Negative OXYCODONE SCREEN URINE (BEAKER) (test pdpc=6208) Negative Negative DRUG CUTOFF CONC.Cocaine 300 ng/mL Cannabinoid 50 ng/mL Benzodiazepine 200 ng/mLBarbiturate 200 ng/mLPh encyclidine 25 ng/mLOpiate 300 ng/mLMethadone 300 ng/mLAmphetamine/ 1000 ng/mL MethamphetamineOxycodone 300 ng/mLThis assay provides an unconfirmed qualitative test result for the cli nical management of patients in emergency situations. Chain of custody not maint ained. Some umws-uii-iqbwpkz medications, as well as adulterants, may cause inac curate results. Clinical correlation should be applied. A more comprehensive viry g screen or confirmation of a detected drug may be performed upon request. URINALYSIS W/ [id number] 21:04:00* Test Item Value Reference Range Comments COLOR (BEAKER) (test thgh=993) Light Yellow CLARITY (BEAKER) (test jrse=221) Clear SPECIFIC GRAVITY UA (BEAKER) (test aifk=795) 1.013 1.001-1.035 PH UA (BEAKER) (test zxty=024) 6.0 5.0-8.0 PROTEIN UA (BEAKER) (test owjv=048) Negative Negative GLUCOSE UA (BEAKER) (test brxp=666) >1000 mg/dL Negative KETONES UA (BEAKER) (test xirf=658) Negative Negative BILIRUBIN UA (BEAKER) (test owsf=370) Negative Negative BLOOD UA (BEAKER) (test ixbo=926) Negative Negative NITRITE UA (BEAKER) (test wjut=702) Negative Negative LEUKOCYTE ESTERASE UA (BEAKER) (test zkzz=486) Negative Negative UROBILINOGEN UA (BEAKER) (test luqc=079) 0.2 mg/dL 0.2-1.0 RBC UA (BEAKER) (test sxnf=718) < /HPF WBC UA (BEAKER) (test zngp=864) 0 /HPF SOURCE(BEAKER) (test qcok=3742) Urine, Clean Catch POCT-GLUCOSE [id number] 18:06:00* Test Item Value Reference Range Comments POC-GLUCOSE METER (BEAKER) (test mjjr=9047) 315 mg/dL 70-110 Notified SHANTAL RUIZ/TESTED AT [address] [address] POCT-GLUCOSE [id number] 16:10:00* Test Item Value Reference Range Comments POC-GLUCOSE METER (BEAKER) (test gmzk=8587) 325 mg/dL 70-110 TESTED AT [place] [id number] POCT-GLUCOSE [id number] 13:33:00* Test Item Value Reference Range Comments POC-GLUCOSE METER (BEAKER) (test xswn=5018) 334 mg/dL 70-110 TESTED AT [place] [address] TROPONIN [id number] 11:47:00* Test Item Value Reference Range Comments TROPONIN I (BEAKER) (test buto=404) < ng/mL 0.00-0.03 Troponin I (TnI) levels must be interpreted in the context of the presenting sym ptoms and the clinical findings. Elevated TnI levels indicate myocardial damage, but are not specific for ischemic heart disease. Elevated TnI levels are seen i n patients with other cardiac conditions (including myocarditis and congestive h eart failure), and slight TnI elevations occur in patients with other conditions , including sepsis, renal failure, acidosis, acute neurological disease, and per sistent tachyarrhythmia.POCT-GLUCOSE [id number] 09:38:00* Test Item Value Reference Range Comments POC-GLUCOSE METER (BEAKER) (test letf=0068) 257 mg/dL 70-110 TESTED AT [address] [address] POCT-GLUCOSE [id number] 07:50:00* Test Item Value Reference Range Comments POC-GLUCOSE METER (BEAKER) (test zmwq=2950) 251 mg/dL 70-110 TESTED AT [address] [address] TROPONIN [id number] 04:07:00* Test Item Value Reference Range Comments TROPONIN I (BEAKER) (test uagl=638) < ng/mL 0.00-0.03 Troponin I (TnI) levels must be interpreted in the context of the presenting sym ptoms and the clinical findings. Elevated TnI levels indicate myocardial damage, but are not specific for ischemic heart disease. Elevated TnI levels are seen i n patients with other cardiac conditions (including myocarditis and congestive h eart failure), and slight TnI elevations occur in patients with other conditions , including sepsis, renal failure, acidosis, acute neurological disease, and per sistent tachyarrhythmia.[id number] 04:02:00* Test Item Value Reference Range Comments MAGNESIUM (BEAKER) (test vflo=167) 2.0 mg/dL 1.6-2.6 Specimen slightly hemolyzed BASIC METABOLIC [id number] 04:02:00* Test Item Value Reference Range Comments SODIUM (BEAKER) (test atoj=437) 131 meq/L 136-145 POTASSIUM (BEAKER) (test qiyf=399) 4.4 meq/L 3.5-5.1 Specimen slightly hemolyzed CHLORIDE (BEAKER) (test algc=840) 97 meq/L 98-107 CO2 (BEAKER) (test filz=340) 24 meq/L 22-29 BLOOD UREA NITROGEN (BEAKER) (test bgma=059) 13 mg/dL 7-21 CREATININE (BEAKER) (test xodb=624) 1.31 mg/dL 0.57-1.25 Specimen slightly hemolyzed GLUCOSE RANDOM (BEAKER) (test ilin=017) 329 mg/dL 70-105 CALCIUM (BEAKER) (test qhxd=464) 9.3 mg/dL 8.4-10.2 EGFR (BEAKER) (test qpkn=1796) 59 mL/min/1.73 sq m ESTIMATED GFR IS NOT ACCURATE CREATININE CLEARANCE IN PREDICTING GLOMERULAR FILTRATION RATE. ESTIMATED GFR IS NOT APPLICABLE FOR DIALYSIS PATIENTS. LIPID [id number] 04:02:00* Test Item Value Reference Range Comments TRIGLYCERIDES (BEAKER) (test fzxl=589) 287 mg/dL Specimen slightly hemolyzed CHOLESTEROL (BEAKER) (test sbqh=235) 146 mg/dL Specimen slightly hemolyzed HDL CHOLESTEROL (BEAKER) (test yawj=052) 32 mg/dL LDL CHOLESTEROL CALCULATED (BEAKER) (test kgzx=814) 57 mg/dL Triglyceride Reference Range: Low Risk <150 Borderline 150-199 High Risk 200-499 Very High Risk >=500Cholesterol Reference Range: Low Risk <200 Borderline 200-239 High Risk >240HDL Cholesterol Reference Range: Low Risk >=60 High Risk <40LDL Cholesterol Reference Range: Optimal <100 Near Optimal 100-129 Borderline 130-159 High 160-189 Very High >=190 CBC W/PLT COUNT & AUTO [id number] 03:40:00* Test Item Value Reference Range Comments WHITE BLOOD CELL COUNT (BEAKER) (test qveu=279) 5.6 K/ L 3.5-10.5 RED BLOOD CELL COUNT (BEAKER) (test ssva=693) 3.75 M/ L 4.63-6.08 HEMOGLOBIN (BEAKER) (test dwax=408) 11.4 GM/DL 13.7-17.5 HEMATOCRIT (BEAKER) (test dwnj=127) 34.9 % 40.1-51.0 MEAN CORPUSCULAR VOLUME (BEAKER) (test pwve=831) 93.1 fL 79.0-92.2 MEAN CORPUSCULAR HEMOGLOBIN (BEAKER) (test ytig=059) 30.4 pg 25.7-32.2 MEAN CORPUSCULAR HEMOGLOBIN CONC (BEAKER) (test vyzh=267) 32.7 GM/DL 32.3-36.5 RED CELL DISTRIBUTION WIDTH (BEAKER) (test fcrv=318) 13.2 % 11.6-14.4 PLATELET COUNT (BEAKER) (test obon=161) 183 K/CU MM 150-450 MEAN PLATELET VOLUME (BEAKER) (test yycb=869) 9.0 fL 9.4-12.4 NUCLEATED RED BLOOD CELLS (BEAKER) (test xzjj=317) 0 /100 WBC 0-0 NEUTROPHILS RELATIVE PERCENT (BEAKER) (test bvgh=558) 62 % LYMPHOCYTES RELATIVE PERCENT (BEAKER) (test awpf=802) 29 % MONOCYTES RELATIVE PERCENT (BEAKER) (test obbn=396) 8 % EOSINOPHILS RELATIVE PERCENT (BEAKER) (test vjxr=294) 1 % BASOPHILS RELATIVE PERCENT (BEAKER) (test qeea=203) 0 % NEUTROPHILS ABSOLUTE COUNT (BEAKER) (test uepb=827) 3.42 K/ L 1.78-5.38 LYMPHOCYTES ABSOLUTE COUNT (BEAKER) (test mqcq=143) 1.60 K/ L 1.32-3.57 MONOCYTES ABSOLUTE COUNT (BEAKER) (test gjik=529) 0.43 K/ L 0.30-0.82 EOSINOPHILS ABSOLUTE COUNT (BEAKER) (test wfyv=049) 0.06 K/ L 0.04-0.54 BASOPHILS ABSOLUTE COUNT (BEAKER) (test nccf=556) 0.02 K/ L 0.01-0.08 IMMATURE GRANULOCYTES-RELATIVE PERCENT (JEANNIE) (test pgyh=2011) 0 % 0-1 POCT-GLUCOSE [id number] 22:41:00* Test Item Value Reference Range Comments POC-GLUCOSE METER (JEANNIE) (test ebgk=4226) 186 mg/dL 70-110 TESTED AT [facility] [address] [facility] [address] RAD, SPINE, LUMBAR, COMPLETE (MIN 4 VIEWS)2018-05-29 19:24:00Reason for exam:-> FALLReason for exam:->FALLFINAL REPORT RAD, SPINE, LUMBAR, COMPLETE (MIN 4 VIEWS) CLINICAL INDICATION: FALLFALL COMPARISON: None FINDINGS: Oblique, frontal, lateral and coned lateral radiographs of the lumbar spine. No fracture or loss of vertebral height is identified. The disc spaces are preserved. The lumbar spine alignment is normal. Psoas shadows are in place. IMPRESSION: No acute abnormality of the lumbar spine. Signed: JR Servin Robert MDReport Verified Date/Time: 05/29/2018 19:24:24 Reading Location: [address] Body Reading Room , PELVIS, 1 OR 2 VIEWS 2018-05-29 19:16:00Reason for exam:->FALLReason for exam:->FALLFINAL REPORT CLINICAL HISTORY: Trauma and pain. A single view of the pelvis is submitted without comparison. There is no acute fracture or malalignment. No destructive bony lesion, significant degenerative change or radiopaque foreign body is present. The surrounding soft tissues are normal. IM PRESSION: No acute abnormality. Signed: Jose Anderson Verified Date/Caden e: 05/29/2018 19:16:28 Reading Location: [address] Reading Room , RIBS, [id number] 19:12:00Reason for exam:->FALLReason for exam:->FALLFINAL REPORT RAD, RIBS, LEFT \T\ PA CHEST, MIN 3 VIEWS IN DICATION: FALLFALL COMPARISON: None FINDINGS:Frontal and multiple oblique views of the left rib cage. Dual-energy views were also obtained. Frontal view of the chest reveals clear lungs. There is no effusion or pneumothorax. Mediastinal con tours are within normal limits. No rib fracture is identified. The intercostal spaces are preserved and symmetric. IMPRESSION: No rib fracture. Signed: Sherri merrill JR, Jessica Mondragon Verified Date/Time: 05/29/2018 19:12:04 Reading Loca tion: [facility] B1 C013Y CT Body Reading Room TINE KINASE (CK), TOTAL AND [id number] 19:07:00* Test Item Value Reference Range Comments CREATINE KINASE TOTAL (BEAKER) (test vkfq=708) 199 U/L 29-200 CREATINE KINASE-MB (BEAKER) (test soil=272) 4.8 ng/mL 0.0-6.6 CREATINE KINASE-MB INDEX (BEAKER) (test eacq=615) 2.4 % CK-MB Reference Range:<6.7 Normal6.7-10.0 Borderline>10.0 Abnormal POCT-GLUCOSE [id number] 18:17:00* Test Item Value Reference Range Comments POC-GLUCOSE METER (BEAKER) (test zkmh=5251) 269 mg/dL 70-110 TESTED AT [address] [address] [address], BRAIN, WITHOUT [id number] 17:30:00Reason for exam:->DIZZINESSReason for exam:->LOSS OF CONSCIOUSNESSWhat is the patient's sedation requirement?->No SedationFINAL REPORT CT cervical spine without contrast INDICATION: DIZZINESSLOSS OF CONSCIOUSNESStrauma COMPARISON: No priors TECHNIQUE: Multiple axial CT images of the cervical spine were obtained without contrast. Sagittal and coronal 2D reconstructions were provided as well. This exam was performed according to our departmental dose optimization program which includes automated exposure control, adjustment of the mA and/or kV according to patient's size and/or use of iterative reconstructive technique. FINDINGS:Vertebral body height is normal, and alignment is [...] CT head without contrast. Reason for exam: DIZZINESSLOSS OF CONSCIOUSNESStrauma Comparisons: MRI dated May 09, 2018 Discussion: Multiple axial CT images of the head are provided without contrast evaluated in brain and bone windows. This exam was performed according to our departmental dose optimization program which includes automated exposure control, adjustment of the mA and/or kV according to patient's size and/or use of iterative recon structive technique. The armstrong-white differentiation is maintained. There is no C T evidence of intracranial hemorrhage, mass-effect, hydrocephalus, shift, or ext ra-axial collections. The visualized orbital contents, bones and surrounding sof t tissues are unremarkable. The visualized paranasal sinuses and mastoid air garcia ls are unremarkable. Impressions: No CT evidence of acute intracranial process. Signed: Todd Hartley MDReport Verified Date/Time: 05/29/2018 17:30:29 Reading Loc ation: [facility] B1 C013V Neuro Reading Room , SPINE, CERVICAL, WO [id number] 17:30:00Reason for exam:->DIZZINESSReason for exam:->LOSS OF CONSCIOUSNESSWhat is the patient's sedation requirement?->No SedationFINAL REPORT CT cervical spine without contrast INDICATION: DIZZINESSLOSS OF CONSCIOUSNESStrauma COMPARISON: No priors TECHNIQUE: Multiple axial CT images of the cervical spine were obtained without contrast. Sagittal and coronal 2D reconstructions were provided as well. This exam was performed according to our departmental dose optimization program which includes automated exposure control, adjustment of the mA and/or kV according to patient's size and/or use of iterative reconstructive technique. FINDINGS:Vertebral body height is normal, and alignment is maintained. No evidence of acute fracture or dislocation in the cervical spine. Mild levocurvature could be positional. There is no pr evertebral edema. No hematoma, or abnormal fluid collection is identified. Visua lized paraspinal soft tissues are unremarkable. Visualized thyroid gland and demetrius g apices are unremarkable. IMPRESSION: No acute fracture, or dislocation identif ied in the cervical spine. CT head without contrast. Reason for exam: DIZZIN ESSLOSS OF CONSCIOUSNESStrauma Comparisons: MRI dated May 09, 2018 Discuss ion: Multiple axial CT images of the head are provided without contrast evaluate d in brain and bone windows. This exam was performed according to our department al dose optimization program which includes automated exposure control, adjustme nt of the mA and/or kV according to patient's size and/or use of iterative recon structive technique. The armstrong-white differentiation is maintained. There is no C T evidence of intracranial hemorrhage, mass-effect, hydrocephalus, shift, or ext ra-axial collections. The visualized orbital contents, bones and surrounding sof t tissues are unremarkable. The visualized paranasal sinuses and mastoid air garcia ls are unremarkable. Impressions: No CT evidence of acute intracranial process. Signed: Todd Hartleyort Verified Date/Time: 05/29/2018 17:30:29 Reading Loc ation: [facility] B1 C013V Neuro Reading Room ONIN [id number] 17:22:00* Test Item Value Reference Range Comments TROPONIN I (BEAKER) (test lskk=743) < ng/mL 0.00-0.03 Troponin I (TnI) levels must be interpreted in the context of the presenting sym ptoms and the clinical findings. Elevated TnI levels indicate myocardial damage, but are not specific for ischemic heart disease. Elevated TnI levels are seen i n patients with other cardiac conditions (including myocarditis and congestive h eart failure), and slight TnI elevations occur in patients with other conditions , including sepsis, renal failure, acidosis, acute neurological disease, and per sistent tachyarrhythmia.[id number] 17:16:00* Test Item Value Reference Range Comments MAGNESIUM (BEAKER) (test bbsu=885) 2.9 mg/dL 1.6-2.6 Specimen markedly hemolyzed [id number] 17:16:00* Test Item Value Reference Range Comments PHOSPHORUS (BEAKER) (test sjbq=649) 3.4 mg/dL 2.3-4.7 Specimen markedly hemolyzed COMPREHENSIVE METABOLIC [id number] 17:16:00* Test Item Value Reference Range Comments TOTAL PROTEIN (BEAKER) (test fupd=359) 7.7 gm/dL 6.0-8.3 Specimen markedly hemolyzed ALBUMIN (BEAKER) (test apeh=7139) 4.3 g/dL 3.5-5.0 Specimen markedly hemolyzed ALKALINE PHOSPHATASE (BEAKER) (test sesp=822) 71 U/L 40-150 BILIRUBIN TOTAL (BEAKER) (test izaq=278) 0.7 mg/dL 0.2-1.2 Specimen markedly hemolyzed SODIUM (BEAKER) (test nvho=686) 132 meq/L 136-145 POTASSIUM (BEAKER) (test xaji=210) 5.2 meq/L 3.5-5.1 Specimen markedly hemolyzed CHLORIDE (BEAKER) (test nnsc=131) 99 meq/L 98-107 CO2 (BEAKER) (test egam=097) 22 meq/L 22-29 BLOOD UREA NITROGEN (BEAKER) (test yzfi=519) 13 mg/dL 7-21 CREATININE (BEAKER) (test ymcn=519) 1.33 mg/dL 0.57-1.25 Specimen markedly hemolyzed GLUCOSE RANDOM (BEAKER) (test rrmk=876) 261 mg/dL 70-105 CALCIUM (BEAKER) (test mvej=019) 10.0 mg/dL 8.4-10.2 AST (SGOT) (BEAKER) (test zmbq=785) 60 U/L 5-34 Specimen markedly hemolyzed ALT (SGPT) (BEAKER) (test lxma=073) 39 U/L 6-55 Specimen markedly hemolyzed EGFR (BEAKER) (test obji=2073) 58 mL/min/1.73 sq m ESTIMATED GFR IS NOT ACCURATE CREATININE CLEARANCE IN PREDICTING GLOMERULAR FILTRATION RATE. ESTIMATED GFR IS NOT APPLICABLE FOR DIALYSIS PATIENTS. PT/[id number] 17:02:00* Test Item Value Reference Range Comments PROTIME (BEAKER) (test jpql=560) 13.4 seconds 11.7-14.7 INR (BEAKER) (test ypzi=011) 1.0 <=5.9 PARTIAL THROMBOPLASTIN TIME (BEAKER) (test kdpd=519) 24.8 seconds 22.5-36.0 RECOMMENDED COUMADIN/WARFARIN INR THERAPY RANGESSTANDARD DOSE: 2.0 - 3.0 Inclu odin: PROPHYLAXIS for venous thrombosis, systemic embolization; TREATMENT for dipti ous thrombosis and/or pulmonary embolus.HIGH RISK: Target INR is 2.5-3.5 for pat ients with mechanical heart valves.CBC W/PLT COUNT & AUTO [id number] 16:53:00* Test Item Value Reference Range Comments WHITE BLOOD CELL COUNT (BEAKER) (test bdrp=195) 5.0 K/ L 3.5-10.5 RED BLOOD CELL COUNT (BEAKER) (test rksy=623) 4.23 M/ L 4.63-6.08 HEMOGLOBIN (BEAKER) (test rwft=473) 13.0 GM/DL 13.7-17.5 HEMATOCRIT (BEAKER) (test xpcy=942) 39.5 % 40.1-51.0 MEAN CORPUSCULAR VOLUME (BEAKER) (test uzko=915) 93.4 fL 79.0-92.2 MEAN CORPUSCULAR HEMOGLOBIN (BEAKER) (test xmgo=179) 30.7 pg 25.7-32.2 MEAN CORPUSCULAR HEMOGLOBIN CONC (BEAKER) (test cdzp=355) 32.9 GM/DL 32.3-36.5 RED CELL DISTRIBUTION WIDTH (BEAKER) (test cdew=316) 13.2 % 11.6-14.4 PLATELET COUNT (BEAKER) (test ptjf=659) 235 K/CU MM 150-450 MEAN PLATELET VOLUME (BEAKER) (test fzsk=659) 9.9 fL 9.4-12.4 NUCLEATED RED BLOOD CELLS (BEAKER) (test fstv=291) 0 /100 WBC 0-0 NEUTROPHILS RELATIVE PERCENT (BEAKER) (test wktu=277) 70 % LYMPHOCYTES RELATIVE PERCENT (BEAKER) (test sxmx=759) 21 % MONOCYTES RELATIVE PERCENT (BEAKER) (test rezh=754) 7 % EOSINOPHILS RELATIVE PERCENT (BEAKER) (test jnlr=725) 1 % BASOPHILS RELATIVE PERCENT (BEAKER) (test qjsk=751) 0 % NEUTROPHILS ABSOLUTE COUNT (BEAKER) (test vvxb=413) 3.46 K/ L 1.78-5.38 LYMPHOCYTES ABSOLUTE COUNT (BEAKER) (test ilyr=701) 1.06 K/ L 1.32-3.57 MONOCYTES ABSOLUTE COUNT (BEAKER) (test dssn=356) 0.35 K/ L 0.30-0.82 EOSINOPHILS ABSOLUTE COUNT (BEAKER) (test raij=041) 0.04 K/ L 0.04-0.54 BASOPHILS ABSOLUTE COUNT (BEAKER) (test ycay=649) 0.02 K/ L 0.01-0.08 IMMATURE GRANULOCYTES-RELATIVE PERCENT (BEAKER) (test zywd=9086) 1 % 0-1 CHEST SINGLE (PORTABLE)2018-05-27 18:29:00 [place] [id number] Patient Name: DAVID SAMUELS MR #: [id number] : 1970 Age/Sex: 47/M Req #: [id number] Adm Physician: Ordered by: EMILY PARHAM NP Report #: [id number] Location: ER Room/Bed: Procedure: 1018-005 1 DX/CHEST SINGLE (PORTABLE) Exam Date: Exam Time: REPORT STATUS: Signed EXAMINATI ON: CHEST SINGLE (PORTABLE) INDICATION: Dizziness. Passed out. dy spnea COMPARISON: Chest radiograph 05/06/2018 FINDINGS: AP view TUBES and LINES: None. LUNGS: Lungs are well inflated. Lungs are clear. There is no evidence of pneumonia or pulmonary edema. PLEURA: No pleural effusion or pneumothorax. HEART AND MEDIASTINUM: The cardiomedi astinal silhouette is unremarkable. BONES AND SOFT TISSUES: No acute o sseous lesion. Soft tissues are unremarkable. UPPER ABDOMEN: No free air under the diaphragm. IMPRESSION: No acute thoracic abnormality. Signed by: DR. Cecilio Durand MD on 05/27/2018 6:30 PM Dictated By: CECILIO DURAND MD 29 T ranscribed By: HARSHA on 05/27/181829 COPY TO: PARHAM,EMILY L TRACTOR TRAILER OPERATOR POCT-GLUCOSE [id number] 20:58:00* Test Item Value Reference Range Comments POC-GLUCOSE METER (BEAKER) (test dwcm=9989) 219 mg/dL 70-110 TESTED AT [address] [address] POCT-GLUCOSE [id number] 11:52:00* Test Item Value Reference Range Comments POC-GLUCOSE METER (BEAKER) (test itku=6415) 259 mg/dL 70-110 TESTED AT [address] [address] POCT-GLUCOSE [id number] 09:29:00* Test Item Value Reference Range Comments POC-GLUCOSE METER (BEAKER) (test vrza=2143) 194 mg/dL 70-110 TESTED AT [address] [address] POCT-GLUCOSE [id number] 08:13:00* Test Item Value Reference Range Comments POC-GLUCOSE METER (BEAKER) (test urtk=4766) 210 mg/dL 70-110 TESTED AT [address] [address] POCT-GLUCOSE [id number] 21:43:00* Test Item Value Reference Range Comments POC-GLUCOSE METER (BEAKER) (test sjgq=7038) 370 mg/dL 70-110 TESTED AT [address] [address] POCT-GLUCOSE [id number] 16:54:00* Test Item Value Reference Range Comments POC-GLUCOSE METER (BEAKER) (test zxkz=9877) 391 mg/dL 70-110 TESTED AT [address] [address] POCT-GLUCOSE [id number] 15:01:00* Test Item Value Reference Range Comments POC-GLUCOSE METER (BEAKER) (test rhyx=2269) 482 mg/dL 70-110 Notified SHANTAL RUIZ/TESTED AT [address] [address] POCT-GLUCOSE [id number] 14:57:00* Test Item Value Reference Range Comments POC-GLUCOSE METER (BEAKER) (test ilnr=2695) 489 mg/dL 70-110 Notified SHANTAL RUIZ/TESTED AT [address] [address] POCT-GLUCOSE [id number] 13:47:00* Test Item Value Reference Range Comments POC-GLUCOSE METER (BEAKER) (test doir=4357) 422 mg/dL 70-110 Notified SHANTAL RUIZ/TESTED AT [place] [id number] POCT-GLUCOSE [id number] 12:20:00* Test Item Value Reference Range Comments POC-GLUCOSE METER (BEAKER) (test iovc=7608) 373 mg/dL 70-110 Notified SHANTAL RUIZ/TESTED AT [place] [address] POCT-GLUCOSE [id number] 07:59:00* Test Item Value Reference Range Comments POC-GLUCOSE METER (BEAKER) (test soea=7043) 260 mg/dL 70-110 TESTED AT [place] [address] BASIC METABOLIC [id number] 07:14:00* Test Item Value Reference Range Comments SODIUM (BEAKER) (test zrqy=349) 133 meq/L 136-145 POTASSIUM (BEAKER) (test vlol=545) 4.1 meq/L 3.5-5.1 CHLORIDE (BEAKER) (test xqsb=435) 97 meq/L 98-107 CO2 (BEAKER) (test zpbm=605) 26 meq/L 22-29 BLOOD UREA NITROGEN (BEAKER) (test fsyd=551) 14 mg/dL 7-21 CREATININE (BEAKER) (test ejjs=387) 1.14 mg/dL 0.57-1.25 GLUCOSE RANDOM (BEAKER) (test niwh=396) 304 mg/dL 70-105 CALCIUM (BEAKER) (test nfib=285) 9.5 mg/dL 8.4-10.2 EGFR (BEAKER) (test ucqa=8554) 69 mL/min/1.73 sq m ESTIMATED GFR IS NOT ACCURATE CREATININE CLEARANCE IN PREDICTING GLOMERULAR FILTRATION RATE. ESTIMATED GFR IS NOT APPLICABLE FOR DIALYSIS PATIENTS. POCT-GLUCOSE [id number] 21:52:00* Test Item Value Reference Range Comments POC-GLUCOSE METER (BEAKER) (test gepy=6512) 228 mg/dL 70-110 TESTED AT [address] [address] POCT-GLUCOSE [id number] 19:01:00* Test Item Value Reference Range Comments POC-GLUCOSE METER (BEAKER) (test yjti=5685) 350 mg/dL 70-110 Will Repeat Test/TESTED AT [address] [address] POCT-GLUCOSE [id number] 16:08:00* Test Item Value Reference Range Comments POC-GLUCOSE METER (BEAKER) (test lida=1127) 397 mg/dL 70-110 Will Repeat Test/TESTED AT [address] [address] HEMOGLOBIN [id number] 14:30:00* Test Item Value Reference Range Comments HEMOGLOBIN A1C (BEAKER) (test znwa=876) 8.3 % 4.3-6.1 POCT-GLUCOSE [id number] 14:11:00* Test Item Value Reference Range Comments POC-GLUCOSE METER (BEAKER) (test ikdz=4183) 376 mg/dL 70-110 Will Repeat Test/TESTED AT [address] [address] POCT-GLUCOSE [id number] 12:54:00* Test Item Value Reference Range Comments POC-GLUCOSE METER (BEAKER) (test nwrh=7595) 412 mg/dL 70-110 Will Repeat Test/TESTED AT [address] [address] MR, BRAIN, WITHOUT [id number] 11:23:00FINAL REPORT MRI brain without contrast INDICATION: [...] chronic appearing findings as discussed above. Signed: Fei Mendez Verified Date/Time: 05/09/2018 11:23:03 Reading Location: [address] Neuro Reading Room -GLUCOSE [id number] 07:58:00* Test Item Value Reference Range Comments POC-GLUCOSE METER (BEAKER) (test bdgl=4853) 212 mg/dL 70-110 TESTED AT [address] [address] BASIC METABOLIC [id number] 06:19:00* Test Item Value Reference Range Comments SODIUM (BEAKER) (test mkua=738) 133 meq/L 136-145 POTASSIUM (BEAKER) (test xuim=501) 4.2 meq/L 3.5-5.1 CHLORIDE (BEAKER) (test bebb=295) 98 meq/L 98-107 CO2 (BEAKER) (test oygx=291) 25 meq/L 22-29 BLOOD UREA NITROGEN (BEAKER) (test sikc=544) 14 mg/dL 7-21 CREATININE (BEAKER) (test kfhg=745) 1.11 mg/dL 0.57-1.25 GLUCOSE RANDOM (BEAKER) (test jtbb=765) 269 mg/dL 70-105 CALCIUM (BEAKER) (test ixmo=720) 9.7 mg/dL 8.4-10.2 EGFR (BEAKER) (test ttmu=7628) 71 mL/min/1.73 sq m ESTIMATED GFR IS NOT ACCURATE CREATININE CLEARANCE IN PREDICTING GLOMERULAR FILTRATION RATE. ESTIMATED GFR IS NOT APPLICABLE FOR DIALYSIS PATIENTS. POCT-GLUCOSE [id number] 21:12:00* Test Item Value Reference Range Comments POC-GLUCOSE METER (BEAKER) (test qfls=5899) 307 mg/dL 70-110 TESTED AT [address] [address] POCT-GLUCOSE [id number] 16:53:00* Test Item Value Reference Range Comments POC-GLUCOSE METER (BEAKER) (test hado=1172) 246 mg/dL 70-110 TESTED AT [address] [address] EEG AWAKE AND [id number] 15:19:00Reason for exam:->Dizziness with staring spellsNeurophysiology Electroencephalogram Report DATE OF REPORT: 05/08/18Date(s) of Study: 05/08/2018ACC: [id number]: [id number] time: 05/08/2018 at 13:55Stop time: 05/08/2018 at 14:16ICD-10: R56.9CPT Code: 28526 HISTORY: 47 y old male with h/o [...] to capture awake state. Wicho Salazar , [facility] [place] Rocky Worley MD, [facility] [place]/Epilepsy Attending -GLUCOSE METER 2018-05-08 11:29:00* Test Item Value Reference Range Comments POC-GLUCOSE METER (BEAKER) (test gutw=7006) 310 mg/dL 70-110 Notified SHANTAL RUIZ/TESTED AT [address] [address] POCT-GLUCOSE [id number] 08:04:00* Test Item Value Reference Range Comments POC-GLUCOSE METER (BEAKER) (test vylt=1194) 321 mg/dL 70-110 Notified SHANTAL RUIZ/TESTED AT [address] [address] LIPID [id number] 07:28:00* Test Item Value Reference Range Comments TRIGLYCERIDES (BEAKER) (test nois=524) 285 mg/dL CHOLESTEROL (BEAKER) (test iaac=781) 147 mg/dL HDL CHOLESTEROL (BEAKER) (test xzer=017) 35 mg/dL LDL CHOLESTEROL CALCULATED (BEAKER) (test hlsr=336) 55 mg/dL Triglyceride Reference Range: Low Risk <150 Borderline 150-199 High Risk 200-499 Very High Risk >=500Cholesterol Reference Range: Low Risk <200 Borderline 200-239 High Risk >240HDL Cholesterol Reference Range: Low Risk >=60 High Risk <40LDL Cholesterol Reference Range: Optimal <100 Near Optimal 100-129 Borderline 130-159 High 160-189 Very High >=190 BASIC METABOLIC [id number] 07:28:00* Test Item Value Reference Range Comments SODIUM (BEAKER) (test xnsg=683) 135 meq/L 136-145 POTASSIUM (BEAKER) (test yuih=548) 4.1 meq/L 3.5-5.1 CHLORIDE (BEAKER) (test zazn=608) 99 meq/L 98-107 CO2 (BEAKER) (test rqtl=202) 28 meq/L 22-29 BLOOD UREA NITROGEN (BEAKER) (test rriv=325) 12 mg/dL 7-21 CREATININE (BEAKER) (test wesv=651) 1.17 mg/dL 0.57-1.25 GLUCOSE RANDOM (BEAKER) (test ztfc=862) 302 mg/dL 70-105 CALCIUM (BEAKER) (test dwxn=920) 9.9 mg/dL 8.4-10.2 EGFR (BEAKER) (test tufr=9240) 67 mL/min/1.73 sq m ESTIMATED GFR IS NOT ACCURATE CREATININE CLEARANCE IN PREDICTING GLOMERULAR FILTRATION RATE. ESTIMATED GFR IS NOT APPLICABLE FOR DIALYSIS PATIENTS. TROPONIN [id number] 07:26:00* Test Item Value Reference Range Comments TROPONIN I (BEAKER) (test bmzi=439) < ng/mL 0.00-0.03 Troponin I (TnI) levels must be interpreted in the context of the presenting sym ptoms and the clinical findings. Elevated TnI levels indicate myocardial damage, but are not specific for ischemic heart disease. Elevated TnI levels are seen i n patients with other cardiac conditions (including myocarditis and congestive h eart failure), and slight TnI elevations occur in patients with other conditions , including sepsis, renal failure, acidosis, acute neurological disease, and per sistent tachyarrhythmia.CBC W/PLT COUNT & AUTO [id number] 07:06:00* Test Item Value Reference Range Comments WHITE BLOOD CELL COUNT (BEAKER) (test pstx=278) 5.5 K/ L 3.5-10.5 RED BLOOD CELL COUNT (BEAKER) (test vaja=777) 3.92 M/ L 4.63-6.08 HEMOGLOBIN (BEAKER) (test ncuk=091) 12.2 GM/DL 13.7-17.5 HEMATOCRIT (BEAKER) (test adjy=916) 37.5 % 40.1-51.0 MEAN CORPUSCULAR VOLUME (BEAKER) (test fbkf=635) 95.7 fL 79.0-92.2 MEAN CORPUSCULAR HEMOGLOBIN (BEAKER) (test hzrl=605) 31.1 pg 25.7-32.2 MEAN CORPUSCULAR HEMOGLOBIN CONC (BEAKER) (test jppr=727) 32.5 GM/DL 32.3-36.5 RED CELL DISTRIBUTION WIDTH (BEAKER) (test wwty=798) 13.6 % 11.6-14.4 PLATELET COUNT (BEAKER) (test pbzh=886) 181 K/CU MM 150-450 MEAN PLATELET VOLUME (BEAKER) (test fhab=833) 9.0 fL 9.4-12.4 NUCLEATED RED BLOOD CELLS (BEAKER) (test hduj=019) 0 /100 WBC 0-0 NEUTROPHILS RELATIVE PERCENT (BEAKER) (test qzuh=775) 58 % LYMPHOCYTES RELATIVE PERCENT (BEAKER) (test pjwv=476) 33 % MONOCYTES RELATIVE PERCENT (BEAKER) (test yknc=677) 7 % EOSINOPHILS RELATIVE PERCENT (BEAKER) (test sdbf=796) 1 % BASOPHILS RELATIVE PERCENT (BEAKER) (test msha=126) 0 % NEUTROPHILS ABSOLUTE COUNT (BEAKER) (test jxet=039) 3.14 K/ L 1.78-5.38 LYMPHOCYTES ABSOLUTE COUNT (BEAKER) (test lmpc=695) 1.82 K/ L 1.32-3.57 MONOCYTES ABSOLUTE COUNT (BEAKER) (test jrmf=382) 0.37 K/ L 0.30-0.82 EOSINOPHILS ABSOLUTE COUNT (BEAKER) (test grwq=272) 0.07 K/ L 0.04-0.54 BASOPHILS ABSOLUTE COUNT (BEAKER) (test viao=843) 0.02 K/ L 0.01-0.08 IMMATURE GRANULOCYTES-RELATIVE PERCENT (BEAKER) (test blst=3177) 1 % 0-1 POCT-GLUCOSE [id number] 19:22:00* Test Item Value Reference Range Comments POC-GLUCOSE METER (BEAKER) (test hnyh=0043) 194 mg/dL 70-110 TESTED AT [facility] [address] [facility] [id number] TROPONIN [id number] 18:15:00* Test Item Value Reference Range Comments TROPONIN I (BEAKER) (test bzsl=667) < ng/mL 0.00-0.03 Troponin I (TnI) levels must be interpreted in the context of the presenting sym ptoms and the clinical findings. Elevated TnI levels indicate myocardial damage, but are not specific for ischemic heart disease. Elevated TnI levels are seen i n patients with other cardiac conditions (including myocarditis and congestive h eart failure), and slight TnI elevations occur in patients with other conditions , including sepsis, renal failure, acidosis, acute neurological disease, and per sistent tachyarrhythmia.RAD, CHEST, 1 VIEW, NON [id number] 14:53:00Reason for exam:->CHEST PAINFINAL REPORT TECHNIQUE: Single view of the chest. COMPARISON: 12/31/2016 FINDINGS: The cardiac silhouette is within normal limits. Mediastinum is unremarkable. Lungs are clear. No acute skeletal abnormality. There is mild thoracolumbar scoliosis. Soft tissues appear unremarkable. IMPRESSION: No acute cardiopulmonary disease. Signed: Osiel Snow Verified Date/Time: 05/07/2018 14:53:36 Reading Location: [address] Consult Reading Room TINE KINASE (CK), TOTAL AND [id number] 14:36:00* Test Item Value Reference Range Comments CREATINE KINASE TOTAL (BEAKER) (test pixh=573) 56 U/L 29-200 CREATINE KINASE-MB (BEAKER) (test hdyb=878) 0.5 ng/mL 0.0-6.6 CREATINE KINASE-MB INDEX (BEAKER) (test yzaf=248) 0.9 % CK-MB Reference Range:<6.7 Normal6.7-10.0 Borderline>10.0 Abnormal TROPONIN [id number] 14:36:00* Test Item Value Reference Range Comments TROPONIN I (BEAKER) (test kbbv=451) < ng/mL 0.00-0.03 Troponin I (TnI) levels must be interpreted in the context of the presenting sym ptoms and the clinical findings. Elevated TnI levels indicate myocardial damage, but are not specific for ischemic heart disease. Elevated TnI levels are seen i n patients with other cardiac conditions (including myocarditis and congestive h eart failure), and slight TnI elevations occur in patients with other conditions , including sepsis, renal failure, acidosis, acute neurological disease, and per sistent tachyarrhythmia.B-TYPE NATRIURETIC FACTOR (BNP)2018-05-07 14:36:00* Test Item Value Reference Range Comments B-TYPE NATRIURETIC PEPTIDE (BEAKER) (test fvdx=235) 20 pg/mL 0-100 [id number] 14:30:00* Test Item Value Reference Range Comments MAGNESIUM (BEAKER) (test wvbu=487) 1.8 mg/dL 1.6-2.6 BASIC METABOLIC [id number] 14:30:00* Test Item Value Reference Range Comments SODIUM (BEAKER) (test atqa=250) 132 meq/L 136-145 POTASSIUM (BEAKER) (test btwo=690) 4.6 meq/L 3.5-5.1 CHLORIDE (BEAKER) (test ibso=094) 99 meq/L 98-107 CO2 (BEAKER) (test jqzi=863) 22 meq/L 22-29 BLOOD UREA NITROGEN (BEAKER) (test nuzt=819) 11 mg/dL 7-21 CREATININE (BEAKER) (test mxzs=076) 1.23 mg/dL 0.57-1.25 GLUCOSE RANDOM (BEAKER) (test bjwe=927) 282 mg/dL 70-105 CALCIUM (BEAKER) (test wmhu=831) 9.5 mg/dL 8.4-10.2 EGFR (BEAKER) (test etrh=2631) 63 mL/min/1.73 sq m ESTIMATED GFR IS NOT ACCURATE CREATININE CLEARANCE IN PREDICTING GLOMERULAR FILTRATION RATE. ESTIMATED GFR IS NOT APPLICABLE FOR DIALYSIS PATIENTS. PT/[id number] 14:17:00* Test Item Value Reference Range Comments PROTIME (BEAKER) (test xtez=671) 13.2 seconds 11.7-14.7 INR (BEAKER) (test wakx=012) 1.0 <=5.9 PARTIAL THROMBOPLASTIN TIME (BEAKER) (test rjzp=255) 24.3 seconds 22.5-36.0 RECOMMENDED COUMADIN/WARFARIN INR THERAPY RANGESSTANDARD DOSE: 2.0 - 3.0 Inclu odin: PROPHYLAXIS for venous thrombosis, systemic embolization; TREATMENT for dipti ous thrombosis and/or pulmonary embolus.HIGH RISK: Target INR is 2.5-3.5 for pat ients with mechanical heart valves.CBC W/PLT COUNT & AUTO [id number] 14:07:00* Test Item Value Reference Range Comments WHITE BLOOD CELL COUNT (BEAKER) (test ygry=085) 7.1 K/ L 3.5-10.5 RED BLOOD CELL COUNT (BEAKER) (test kscj=048) 3.64 M/ L 4.63-6.08 HEMOGLOBIN (BEAKER) (test aceg=101) 11.6 GM/DL 13.7-17.5 HEMATOCRIT (BEAKER) (test rvcu=668) 34.7 % 40.1-51.0 MEAN CORPUSCULAR VOLUME (BEAKER) (test bfec=307) 95.3 fL 79.0-92.2 MEAN CORPUSCULAR HEMOGLOBIN (BEAKER) (test rxuc=522) 31.9 pg 25.7-32.2 MEAN CORPUSCULAR HEMOGLOBIN CONC (BEAKER) (test iaos=414) 33.4 GM/DL 32.3-36.5 RED CELL DISTRIBUTION WIDTH (BEAKER) (test bkzx=724) 13.4 % 11.6-14.4 PLATELET COUNT (BEAKER) (test sfwb=663) 162 K/CU MM 150-450 MEAN PLATELET VOLUME (BEAKER) (test oqop=217) 9.2 fL 9.4-12.4 NUCLEATED RED BLOOD CELLS (BEAKER) (test rtor=480) 0 /100 WBC 0-0 NEUTROPHILS RELATIVE PERCENT (BEAKER) (test sjgp=916) 74 % LYMPHOCYTES RELATIVE PERCENT (BEAKER) (test qlyo=061) 18 % MONOCYTES RELATIVE PERCENT (BEAKER) (test gulu=746) 7 % EOSINOPHILS RELATIVE PERCENT (BEAKER) (test chrr=281) 1 % BASOPHILS RELATIVE PERCENT (BEAKER) (test ubip=561) 0 % NEUTROPHILS ABSOLUTE COUNT (BEAKER) (test oahb=132) 5.20 K/ L 1.78-5.38 LYMPHOCYTES ABSOLUTE COUNT (BEAKER) (test oyum=116) 1.26 K/ L 1.32-3.57 MONOCYTES ABSOLUTE COUNT (BEAKER) (test kgjg=414) 0.46 K/ L 0.30-0.82 EOSINOPHILS ABSOLUTE COUNT (BEAKER) (test kgjl=440) 0.07 K/ L 0.04-0.54 BASOPHILS ABSOLUTE COUNT (BEAKER) (test nada=588) 0.03 K/ L 0.01-0.08 IMMATURE GRANULOCYTES-RELATIVE PERCENT (BEAKER) (test elkh=9190) 1 % 0-1 CHEST SINGLE (PORTABLE)2018-05-06 02:43:00 [place] [address] Patient Name: DAVID SAMUELS MR #: [id number] : 1970 Age/Sex: 47/M Req #: [id number] Adm Physician: Ordered by: MARGE GREER MD Report #: [id number] Location: ER Room/Bed: Procedure: [id number] DX/CHEST SINGLE (PORTABLE) Exa fani Date: 05/06/18 Exam Time: 023 REPORT STATUS: Signed EXAM: CHEST SINGLE (PORTABLE), [...] COPY TO: DARIUS GREER MD MRI BRAIN [id number] 14:22:00 [place] [address] Patient Name: DAVID SAMUELS MR #: [id number] : 1970 Age/Sex: 47/M Req #: [id number] Adm Physician: ERIC BRO MD Ordered by: VIDHI DAI MD Report #: [id number] Location: ICU Room/Bed: ICU 192 Procedure: [id number] MRI /MRI BRAIN WO Exam Date: Exam [...] is moderately limited by artifacts related to patien t motion. 2. No mass or gross acute abnormalities. If symptoms persist, recommend follow-up MRI when clinically appropriate to further evaluate given the limitations of this exam. Signed by: Dr. Shawn Clarke M.D. on 8 2:31 PM Dictated By: SHAWN CLARKE MD 143 Transcribed By: HARSHA on 04/15/181430 COPY TO: VIDHI DAI MD CTA [id number] 22:37:00 [place] [address] Patient Name: DAVID SAMUELS MR #: [id number] : 02/1971 Age/Sex: 47/M Req #: [id number] Adm Physician: Ordered by: VIDHI DAI MD Report #: [id number] Location: ER Room /Bed: Procedure: [id number] CT/CTA CHEST Exam Date: 04/14/18 Exam Time: 2143 REPORT STATUS: Signed EXAM: CTA ABD/PELVIS, CTA CHEST INDICATION: S CHEST PAIN/BACK PAIN BLACKING OUT S Y COMPARISON: None. TECHNIQUE: Chest, abdomen and pelvis were scanne d utilizing a multidetector helical scanner from the [...] Scattered coronary artery calcification. HEPATOBILIARY/GALLBLADDER: Possible hepatic steatosi s with pericholecystic sparing. No focal lesions SPLEEN: [...] bilateral renal arteries, and BRETT are patent. 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 Th e heart is normal in size.. There is no pericardial effusion. Scattered coron charlie artery calcification. HEPATOBILIARY/GALLBLADDER: Possible hepatic luciano atosis with pericholecystic sparing. No focal lesions [...] bilateral renal arteries, and BRETT are patent. Side Seam Envelope Machine Operator measurements are as follows: Aortic root, 3.5 [...] HARLEY DAI MD CHEST SINGLE (PORTABLE)2018-04-14 22:30:00 [place] [address] Patient Name: DAVID SAMUELS MR #: [id number] : 1970 Age/Sex: 47/M Req #: [id number] Adm Physician: Ordered by: VIDHI DAI MD Report #: [id number] Location: ER Room /Bed: Procedure: [id number] DX/CHEST SINGLE (PORTABLE) Exam Date: 04/14/18 Exam [...] Alisa d By: JAUN COMBS MD on 04/14/18 2231 Transcribed By: HARSHA on 04/14/18 2 231 COPY TO: VIDHI DAI MD CT BRAIN [id number] 22:17:00 [place] [address] Patient Name: DAVID SAMUELS MR #: [id number] : 1970 Age/Sex: 47/M Req #: [id number] Adm Physician: Ordered by: VIDHI DAI MD Report #: [id number] Location: ER Room/Bed: Procedure: [id number] CT/CT BRAIN WO Exam Date: Exam Time: [...] of thrombosis. Dural sinuses: No abnormal density suggestiv e of thrombosis. Ventricles: No hydrocephalus or displacement. Extr a-axial spaces: No abnormal density. Brain volume: Mild to moderate gene ralized cerebral volume loss. Craniocervical junction: No mass, Chiari mal formation, or basilar invagination. Sella: No mass. Paranasal/mas toid sinuses: Imaged portions unremarkable. IMPRESSION: No acute intracra nial abnormality. Mild to moderate generalized cerebral volume loss, advanc ed for patient's given age. Signed by: Dr. Matthew Brandt M.D. on 018 10:21 PM Dictated By: MATTHEW BRANDT MD 20 Transcribed By: HARSHA on 04/14/182220 COPY TO: VIDHI DAI MD CT LUMBAR SPINE LTD W/O CONTRAST 2017-04-13 01:39:44AFTER HOURS SERVICE ON: 04/13/2017 1:39 AMCT of the Lumbar Spine Without ContrastLocation Code L40Bmbsnxd: PainTechnique: Axial and reconstructed coronal and sagittal [...] Scan of the Brain Without ContrastLocation Code Z45Jwsoenx: PainTechnique: Scans were performed on a helical scanner pre IV contrastonly. The study is limited secondary to lack of intravenous contrast,particularly for evaluation of masses. CT images were performed cbkavr93 hours at arrival to the facility. One or more of the following dose reduction techniques were used:Automated exposure control, adjustment of the mA and/or kV according topatient size, and/or utilization of iterative reconstruction technique.Findings: There is no hydrocephalus. Basal cisterns are patent. There is nointracranial hyperdense hemorrhage. There is no midline shift or masseffect. No effacement of the armstrong-white matter junction to indicateacute infarction. Impression:No acute intracranial CT findings.AFTER HOURS SERVICE ON: 04/13/2017 1:36 AMCT of the Cervical Spine Without ContrastLocation Code H01Dxadwah: PainTechnique: Axial and reconstructed coronal and sagittal [...] Scan of the Brain Without ContrastLocation Code G74Lvratwt: PainTechnique: Scans were performed on a helical scanner pre IV contrastonly. The study is limited secondary to lack of intravenous contrast,particularly for evaluation of masses. CT images were performed pozrmq12 hours at arrival to the facility. One or more of the following dose reduction techniques were used:Automated exposure control, adjustment of the mA and/or kV according topatient size, and/or utilization of iterative reconstruction technique.Findings: There is no hydrocephalus. Basal cisterns are patent. There is nointracranial hyperdense hemorrhage. There is no midline shift or masseffect. No effacement of the armstrong-white matter junction to indicateacute infarction. Impression:No acute intracranial CT findings.AFTER HOURS SERVICE ON: 04/13/2017 1:36 AMCT of the Cervical Spine Without ContrastLocation Code H90Vdaazel: PainTechnique: Axial and reconstructed coronal and sagittal [...] Lymph Abs (test code=ALYMPH) 2.0 K/cumm 0.5-4.6 Armstrong Abs (test code=AMONO) 0.3 K/cumm 0.0-1.2 Eos Abs (test code=AEOS) 0.08 K/cumm 0.00-0.74 Baso Abs (test code=ABASO) 0.0 K/cumm 0.00-0.21 Comprehensive Metabolic [id number] 00:59:00* Test Item Value Reference Range Comments [...] race is not provided, and the patient isAfrican-Equatorial [place], multiply by 1.212. If sex is not provided, and thepatient is female, multiply by 0.742. Results for patients <18 years ofage have not been validated by the MDRD study and should be interpretedwith caution.eGFR Result Interpretation:eGFR > or=60 is in the Normal RangeeGFR < 60 may mean kidney diseaseeGFR < 15 may mean kidney failureRanges recommended by the National Kidney Foundat ion,http://nkdep.nih.gov CK [id number] 00:59:00* Test Item Value Reference Range Comments CK (test code=CK) 133 U/L 39-308 Troponin [id number] 00:57:00* Test Item Value Reference Range Comments Troponin T (test code=AIRAM) <0.010 ng/mL 0.000-0.090 XR CHEST 1 [id number] 00:49:38AFTER HOURS SERVICE ON: 04/13/2017 12:49 AMAP Portable ChestLocation Code [id number]: TraumaFINDINGS: Atelectatic changes noted in the lung bases. Inspiration is shallowlimiting the lung bases. There are no pleural effusions. There is nopneumothorax. Cardiac silhouette and mediastinum appear within normallimits. IMPRESSION: Mild bibasilar subsegmental atelectasis.B-TYPE NATRIURETIC FACTOR (BNP)2016-12-31 18:59:00* Test Item Value Reference Range Comments B-TYPE NATRIURETIC PEPTIDE (BEAKER) (test tjzy=977) 15 pg/mL 0-100 CREATINE KINASE (CK), TOTAL AND [id number] 18:59:00* Test Item Value Reference Range Comments CREATINE KINASE TOTAL (BEAKER) (test pfum=779) 43 U/L 29-200 CREATINE KINASE-MB (BEAKER) (test yuiq=755) 0.5 ng/mL 0.0-6.6 CREATINE KINASE-MB INDEX (BEAKER) (test gdrq=480) 1.2 % Effective 06/27/2014: CK-MB Reference Range ChangeNew: 0.0-6.6 Previous: 0.0- 4.9CK-MB Reference Range:<6.7 Normal6.7-10.0 Borderline>10.0 Abnormal TROPONIN [id number] 18:59:00* Test Item Value Reference Range Comments TROPONIN I (BEAKER) (test hqvx=849) < ng/mL 0.00-0.03 Effective 06/27/2014: Reference Range [...] acidosis, acute neurological disease, and pers istent tachyarrhythmia.[id number] 18:52:00* Test Item Value Reference Range Comments MAGNESIUM (BEAKER) (test enaz=502) 2.0 mg/dL 1.6-2.6 BASIC METABOLIC [id number] 18:52:00* Test Item Value Reference Range Comments SODIUM (BEAKER) (test pfux=711) 138 meq/L 136-145 POTASSIUM (BEAKER) (test ixvl=317) 3.6 meq/L 3.5-5.1 CHLORIDE (BEAKER) (test kynh=581) 107 meq/L 98-107 CO2 (BEAKER) (test lngj=004) 21 meq/L 22-29 BLOOD UREA NITROGEN (BEAKER) (test ikor=099) 11 mg/dL 7-21 CREATININE (BEAKER) (test sqbj=500) 1.12 mg/dL 0.57-1.25 GLUCOSE RANDOM (BEAKER) (test cain=201) 110 mg/dL 70-105 CALCIUM (BEAKER) (test lgbh=682) 9.5 mg/dL 8.4-10.2 EGFR (BEAKER) (test ttht=2501) 71 mL/min/1.73 sq m ESTIMATED GFR IS NOT ACCURATE CREATININE CLEARANCE IN PREDICTING GLOMERULAR FILTRATION RATE. ESTIMATED GFR IS NOT APPLICABLE FOR DIALYSIS PATIENTS. PT/[id number] 18:45:00* Test Item Value Reference Range Comments PROTIME (BEAKER) (test qern=175) 13.5 seconds 11.7-14.7 INR (BEAKER) (test tcfl=073) 1.0 <=5.9 PARTIAL THROMBOPLASTIN TIME (BEAKER) (test znbv=839) 25.8 seconds 22.5-36.0 RECOMMENDED COUMADIN/WARFARIN INR THERAPY RANGESSTANDARD DOSE: 2.0 - 3.0 Inclu odin: PROPHYLAXIS for venous thrombosis, systemic embolization; TREATMENT for dipti ous thrombosis and/or pulmonary embolus.HIGH RISK: Target INR is 2.5-3.5 for pat ients with mechanical heart valves.CBC W/PLT COUNT & AUTO [id number] 18:39:00* Test Item Value Reference Range Comments WHITE BLOOD CELL COUNT (BEAKER) (test zuvt=873) 10.5 K/ L 4.0-10.0 RED BLOOD CELL COUNT (BEAKER) (test zlqy=899) 4.94 M/ L 4.20-5.80 HEMOGLOBIN (BEAKER) (test clhj=480) 16.1 GM/DL 13.0-16.8 HEMATOCRIT (BEAKER) (test yfek=785) 47.1 % 40.0-50.0 MEAN CORPUSCULAR VOLUME (BEAKER) (test kfvh=187) 95.4 fL 82.0-98.0 MEAN CORPUSCULAR HEMOGLOBIN (BEAKER) (test mdax=476) 32.6 pg 27.0-33.0 MEAN CORPUSCULAR HEMOGLOBIN CONC (BEAKER) (test ekch=863) 34.2 GM/DL 32.0-36.0 RED CELL DISTRIBUTION WIDTH (BEAKER) (test xxoy=363) 11.9 % 10.3-14.2 PLATELET COUNT (BEAKER) (test eoph=889) 251 K/CU MM 150-430 MEAN PLATELET VOLUME (BEAKER) (test njio=812) 5.7 fL 6.5-10.5 NUCLEATED RED BLOOD CELLS (BEAKER) (test zmjn=624) 0 /100 WBC 0-0 NEUTROPHILS RELATIVE PERCENT (BEAKER) (test ylpp=544) 76 % LYMPHOCYTES RELATIVE PERCENT (BEAKER) (test ewzs=440) 18 % MONOCYTES RELATIVE PERCENT (BEAKER) (test uptf=522) 5 % EOSINOPHILS RELATIVE PERCENT (BEAKER) (test hgpd=566) 0 % BASOPHILS RELATIVE PERCENT (BEAKER) (test ldjo=775) 0 % NEUTROPHILS ABSOLUTE COUNT (BEAKER) (test obvz=524) 8.04 K/ L 1.80-8.00 LYMPHOCYTES ABSOLUTE COUNT (BEAKER) (test mbdr=666) 1.88 K/ L 1.48-4.50 MONOCYTES ABSOLUTE COUNT (BEAKER) (test sgll=943) 0.53 K/ L 0.00-1.30 EOSINOPHILS ABSOLUTE COUNT (BEAKER) (test siej=305) 0.04 K/ L 0.00-0.50 BASOPHILS ABSOLUTE COUNT (BEAKER) (test bkwy=114) 0.02 K/ L 0.00-0.20 0.00CBC W/PLT COUNT & AUTO [id number] 06:13:00* Test Item Value Reference Range Comments WHITE BLOOD CELL COUNT (BEAKER) (test jway=097) 6.8 K/ L 4.0-10.0 RED BLOOD CELL COUNT (BEAKER) (test myoc=510) 4.60 M/ L 4.20-5.80 HEMOGLOBIN (BEAKER) (test smrw=865) 14.9 GM/DL 13.0-16.8 HEMATOCRIT (BEAKER) (test zegs=500) 44.5 % 40.0-50.0 MEAN CORPUSCULAR VOLUME (BEAKER) (test ulvp=613) 96.6 fL 82.0-98.0 MEAN CORPUSCULAR HEMOGLOBIN (BEAKER) (test jimv=908) 32.3 pg 27.0-33.0 MEAN CORPUSCULAR HEMOGLOBIN CONC (BEAKER) (test zyrd=018) 33.5 GM/DL 32.0-36.0 RED CELL DISTRIBUTION WIDTH (BEAKER) (test ktow=030) 11.9 % 10.3-14.2 PLATELET COUNT (BEAKER) (test ymrf=455) 167 K/CU MM 150-430 MEAN PLATELET VOLUME (BEAKER) (test vkir=516) 6.0 fL 6.5-10.5 NUCLEATED RED BLOOD CELLS (BEAKER) (test jcak=286) 0 /100 WBC 0-0 NEUTROPHILS RELATIVE PERCENT (BEAKER) (test ncxl=188) 65 % LYMPHOCYTES RELATIVE PERCENT (BEAKER) (test unfa=394) 27 % MONOCYTES RELATIVE PERCENT (BEAKER) (test ebez=888) 7 % EOSINOPHILS RELATIVE PERCENT (BEAKER) (test expf=448) 1 % BASOPHILS RELATIVE PERCENT (BEAKER) (test lyvh=515) 0 % NEUTROPHILS ABSOLUTE COUNT (BEAKER) (test pqtw=499) 4.45 K/ L 1.80-8.00 LYMPHOCYTES ABSOLUTE COUNT (BEAKER) (test keoe=861) 1.84 K/ L 1.48-4.50 MONOCYTES ABSOLUTE COUNT (BEAKER) (test divr=843) 0.48 K/ L 0.00-1.30 EOSINOPHILS ABSOLUTE COUNT (BEAKER) (test zies=304) 0.04 K/ L 0.00-0.50 BASOPHILS ABSOLUTE COUNT (BEAKER) (test cniz=594) 0.00 K/ L 0.00-0.20 [id number] 05:58:00* Test Item Value Reference Range Comments PHOSPHORUS (BEAKER) (test maiz=678) 4.1 mg/dL 2.3-4.7 BASIC METABOLIC [id number] 05:58:00* Test Item Value Reference Range Comments SODIUM (BEAKER) (test ldnb=959) 138 meq/L 136-145 POTASSIUM (BEAKER) (test ldii=697) 4.4 meq/L 3.5-5.1 CHLORIDE (BEAKER) (test efwf=708) 107 meq/L 98-107 CO2 (BEAKER) (test vahw=281) 22 meq/L 22-29 BLOOD UREA NITROGEN (BEAKER) (test qdmt=097) 13 mg/dL 7-21 CREATININE (BEAKER) (test yfxw=058) 1.04 mg/dL 0.57-1.25 GLUCOSE RANDOM (BEAKER) (test srbn=903) 87 mg/dL 70-105 CALCIUM (BEAKER) (test oacx=158) 9.1 mg/dL 8.4-10.2 EGFR (BEAKER) (test yidw=3075) 77 mL/min/1.73 sq m ESTIMATED GFR IS NOT ACCURATE CREATININE CLEARANCE IN PREDICTING GLOMERULAR FILTRATION RATE. ESTIMATED GFR IS NOT APPLICABLE FOR DIALYSIS PATIENTS. HEPATIC FUNCTION [id number] 05:58:00* Test Item Value Reference Range Comments TOTAL PROTEIN (BEAKER) (test uzjx=557) 6.5 gm/dL 6.0-8.3 ALBUMIN (BEAKER) (test lqfx=6128) 4.0 g/dL 3.5-5.0 BILIRUBIN TOTAL (BEAKER) (test dvfb=205) 0.8 mg/dL 0.2-1.2 BILIRUBIN DIRECT (BEAKER) (test pvpr=061) 0.3 mg/dL 0.1-0.5 ALKALINE PHOSPHATASE (BEAKER) (test zusr=020) 44 U/L 40-150 AST (SGOT) (BEAKER) (test krxp=479) 11 U/L 5-34 ALT (SGPT) (BEAKER) (test zkpn=931) 15 U/L 6-55 SEDIMENTATION [id number] 11:40:00* Test Item Value Reference Range Comments SEDIMENTATION RATE, ERYTHROCYTE (BEAKER) (test abmt=581) 8 mm/HR 0-15 [id number] 04:48:00* Test Item Value Reference Range Comments PHOSPHORUS (BEAKER) (test gahj=532) 4.2 mg/dL 2.3-4.7 BASIC METABOLIC [id number] 04:48:00* Test Item Value Reference Range Comments SODIUM (BEAKER) (test ubur=942) 135 meq/L 136-145 POTASSIUM (BEAKER) (test dtqc=636) 4.1 meq/L 3.5-5.1 CHLORIDE (BEAKER) (test itfq=982) 106 meq/L 98-107 CO2 (BEAKER) (test rtyy=734) 19 meq/L 22-29 BLOOD UREA NITROGEN (BEAKER) (test fhsi=005) 18 mg/dL 7-21 CREATININE (BEAKER) (test lylc=836) 1.13 mg/dL 0.57-1.25 GLUCOSE RANDOM (BEAKER) (test dsag=827) 104 mg/dL 70-105 CALCIUM (BEAKER) (test ggjg=718) 9.2 mg/dL 8.4-10.2 EGFR (BEAKER) (test orbc=1666) 70 mL/min/1.73 sq m ESTIMATED GFR IS NOT ACCURATE CREATININE CLEARANCE IN PREDICTING GLOMERULAR FILTRATION RATE. ESTIMATED GFR IS NOT APPLICABLE FOR DIALYSIS PATIENTS. HEPATIC FUNCTION [id number] 04:48:00* Test Item Value Reference Range Comments TOTAL PROTEIN (BEAKER) (test uxza=205) 6.4 gm/dL 6.0-8.3 ALBUMIN (BEAKER) (test uhun=3068) 3.9 g/dL 3.5-5.0 BILIRUBIN TOTAL (BEAKER) (test qpnm=566) 1.0 mg/dL 0.2-1.2 BILIRUBIN DIRECT (BEAKER) (test hlsx=094) 0.4 mg/dL 0.1-0.5 ALKALINE PHOSPHATASE (BEAKER) (test mttg=540) 40 U/L 40-150 AST (SGOT) (BEAKER) (test jamp=660) 11 U/L 5-34 ALT (SGPT) (BEAKER) (test aqnp=444) 14 U/L 6-55 CBC W/PLT COUNT & AUTO [id number] 04:41:00* Test Item Value Reference Range Comments WHITE BLOOD CELL COUNT (BEAKER) (test dlqh=670) 8.5 K/ L 4.0-10.0 RED BLOOD CELL COUNT (BEAKER) (test ywdf=015) 4.44 M/ L 4.20-5.80 HEMOGLOBIN (BEAKER) (test wihr=377) 14.4 GM/DL 13.0-16.8 HEMATOCRIT (BEAKER) (test cegk=502) 41.8 % 40.0-50.0 MEAN CORPUSCULAR VOLUME (BEAKER) (test gypy=339) 94.2 fL 82.0-98.0 MEAN CORPUSCULAR HEMOGLOBIN (BEAKER) (test vcot=219) 32.5 pg 27.0-33.0 MEAN CORPUSCULAR HEMOGLOBIN CONC (BEAKER) (test empa=290) 34.5 GM/DL 32.0-36.0 RED CELL DISTRIBUTION WIDTH (BEAKER) (test vqmo=290) 13.0 % 10.3-14.2 PLATELET COUNT (BEAKER) (test dged=170) 195 K/CU MM 150-430 MEAN PLATELET VOLUME (BEAKER) (test lrjj=619) 6.0 fL 6.5-10.5 NUCLEATED RED BLOOD CELLS (BEAKER) (test dncd=306) 0 /100 WBC 0-0 NEUTROPHILS RELATIVE PERCENT (BEAKER) (test pkpy=516) 63 % LYMPHOCYTES RELATIVE PERCENT (BEAKER) (test hdsf=046) 28 % MONOCYTES RELATIVE PERCENT (BEAKER) (test bdny=890) 8 % EOSINOPHILS RELATIVE PERCENT (BEAKER) (test rkjl=458) 1 % BASOPHILS RELATIVE PERCENT (BEAKER) (test fxtt=899) 1 % NEUTROPHILS ABSOLUTE COUNT (BEAKER) (test nofq=503) 5.36 K/ L 1.80-8.00 LYMPHOCYTES ABSOLUTE COUNT (BEAKER) (test efyq=241) 2.37 K/ L 1.48-4.50 MONOCYTES ABSOLUTE COUNT (BEAKER) (test mdla=247) 0.65 K/ L 0.00-1.30 EOSINOPHILS ABSOLUTE COUNT (BEAKER) (test ryba=941) 0.10 K/ L 0.00-0.50 BASOPHILS ABSOLUTE COUNT (BEAKER) (test zndn=835) 0.05 K/ L 0.00-0.20 0.00CREATINE KINASE (CK), TOTAL AND [id number] 18:27:00* Test Item Value Reference Range Comments CREATINE KINASE TOTAL (BEAKER) (test dbwq=128) 47 U/L 29-200 CREATINE KINASE-MB (BEAKER) (test sszs=540) 0.8 ng/mL 0.0-6.6 CREATINE KINASE-MB INDEX (BEAKER) (test nneq=723) 1.7 % Effective 06/27/2014: CK-MB Reference Range ChangeNew: 0.0-6.6 Previous: 0.0- 4.9CK-MB Reference Range:<6.7 Normal6.7-10.0 Borderline>10.0 Abnormal TROPONIN [id number] 18:27:00* Test Item Value Reference Range Comments TROPONIN I (BEAKER) (test vsig=988) < ng/mL 0.00-0.03 Effective 06/27/2014: Reference Range [...] disease, and pers istent tachyarrhythmia.RAPID DRUG SCREEN, [id number] 15:19:00* Test Item Value Reference Range Comments BARBITURATE URINE (BEAKER) (test shrq=219) Negative Negative BENZODIAZEPINE SCREEN URINE (BEAKER) (test ceit=959) Negative Negative COCAINE (METAB.) SCREEN (BEAKER) (test weyq=9517) Negative Negative METHADONE SCREEN (BEAKER) (test zlxc=8734) Negative Negative OPIATE SCREEN URINE (BEAKER) (test wpue=767) Positive Negative CANNABINOID SCREEN URINE (BEAKER) (test ahqj=540) Negative Negative AMPH/METHAMPH SCREEN (BEAKER) (test eaex=6047) Negative Negative PHENCYCLIDINE SCREEN URINE (BEAKER) (test cxls=115) Negative Negative OXYCODONE SCREEN URINE (BEAKER) (test sxyq=6945) Negative Negative DRUG CUTOFF CONC.Cocaine 300 ng/mL Cannabinoid 50 ng/mL Benzodiazepine 200 ng/mLBarbiturate 200 ng/mLPh encyclidine 25 ng/mLOpiate 300 ng/mLMethadone 300 ng/mLAmphetamine/ 1000 ng/mL MethamphetamineOxycodone 300 ng/mLEOSINOPHIL SMEAR, [id number] 14:54:00* Test Item Value Reference Range Comments EOSINOPHIL SMEAR, URINE (BEAKER) (test wauo=2316) No EOS seen No EOS seen URINALYSIS W/ [id number] 14:50:00* Test Item Value Reference Range Comments COLOR (BEAKER) (test dcky=189) Yellow CLARITY (BEAKER) (test xhpm=325) Clear SPECIFIC GRAVITY UA (BEAKER) (test pyar=560) 1.018 1.001-1.035 PH UA (BEAKER) (test ffgy=215) 6.0 5.0-8.0 PROTEIN UA (BEAKER) (test uvve=433) 10 mg/dL Negative GLUCOSE UA (BEAKER) (test biaj=515) Negative Negative KETONES UA (BEAKER) (test oqjv=380) 40 mg/dL Negative BILIRUBIN UA (BEAKER) (test vptm=351) Negative Negative BLOOD UA (BEAKER) (test umsp=211) Negative Negative NITRITE UA (BEAKER) (test sneb=598) Negative Negative LEUKOCYTE ESTERASE UA (BEAKER) (test takw=112) Negative Negative UROBILINOGEN UA (BEAKER) (test ukyp=955) 4.0 mg/dL 0.2-1.0 RBC UA (BEAKER) (test jgus=645) 1 /HPF WBC UA (BEAKER) (test qifa=595) 1 /HPF MUCUS (BEAKER) (test ijlj=3521) Moderate HYALINE CASTS (BEAKER) (test znde=329) 2 /LPF SOURCE(BEAKER) (test gqft=2097) TSH/FREE T4 IF [id number] 13:03:00* Test Item Value Reference Range Comments THYROID STIMULATING HORMONE (BEAKER) (test wssg=861) 0.56 uIU/mL 0.35-4.94 HEMOGLOBIN [id number] 11:36:00* Test Item Value Reference Range Comments HEMOGLOBIN A1C (BEAKER) (test ztgp=769) 4.6 % 4.3-6.1 CREATINE KINASE (CK), TOTAL AND [id number] 10:49:00* Test Item Value Reference Range Comments CREATINE KINASE TOTAL (BEAKER) (test isfm=349) 46 U/L 29-200 CREATINE KINASE-MB (BEAKER) (test bzfn=022) 0.8 ng/mL 0.0-6.6 CREATINE KINASE-MB INDEX (BEAKER) (test nqxh=715) 1.7 % Effective 06/27/2014: CK-MB Reference Range ChangeNew: 0.0-6.6 Previous: 0.0- 4.9CK-MB Reference Range:<6.7 Normal6.7-10.0 Borderline>10.0 Abnormal TROPONIN [id number] 10:49:00* Test Item Value Reference Range Comments TROPONIN I (BEAKER) (test hbdw=208) < ng/mL 0.00-0.03 Effective 06/27/2014: Reference Range [...] acidosis, acute neurological disease, and pers istent tachyarrhythmia.[id number] 10:42:00* Test Item Value Reference Range Comments MAGNESIUM (BEAKER) (test qfiv=733) 2.3 mg/dL 1.6-2.6 BASIC METABOLIC [id number] 10:42:00* Test Item Value Reference Range Comments SODIUM (BEAKER) (test jkas=205) 139 meq/L 136-145 POTASSIUM (BEAKER) (test zxyb=879) 4.0 meq/L 3.5-5.1 CHLORIDE (BEAKER) (test tnyj=149) 104 meq/L 98-107 CO2 (BEAKER) (test zrxh=287) 24 meq/L 22-29 BLOOD UREA NITROGEN (BEAKER) (test cvoi=553) 17 mg/dL 7-21 CREATININE (BEAKER) (test luex=064) 1.17 mg/dL 0.57-1.25 GLUCOSE RANDOM (BEAKER) (test ridj=876) 125 mg/dL 70-105 CALCIUM (BEAKER) (test ezjo=775) 9.5 mg/dL 8.4-10.2 EGFR (BEAKER) (test akyc=1949) 67 mL/min/1.73 sq m ESTIMATED GFR IS NOT ACCURATE CREATININE CLEARANCE IN PREDICTING GLOMERULAR FILTRATION RATE. ESTIMATED GFR IS NOT APPLICABLE FOR DIALYSIS PATIENTS. LIPID [id number] 10:42:00* Test Item Value Reference Range Comments TRIGLYCERIDES (BEAKER) (test rlcq=503) 111 mg/dL CHOLESTEROL (BEAKER) (test eekd=054) 163 mg/dL HDL CHOLESTEROL (BEAKER) (test yebc=293) 40 mg/dL LDL CHOLESTEROL CALCULATED (BEAKER) (test zmyi=341) 101 mg/dL Triglyceride Reference Range: Low Risk <150 Borderline 150-199 High Risk 200-499 Very High Risk >=500Cholesterol Reference Range: Low Risk <200 Borderline 200-239 High Risk >240HDL Cholesterol Reference Range: Low Risk >=60 High Risk <40LDL Cholesterol Reference Range: Optimal <100 Near Optimal 100-129 Borderline 130-159 High 160-189 Very High >=190 HEPATIC FUNCTION [id number] 10:42:00* Test Item Value Reference Range Comments TOTAL PROTEIN (BEAKER) (test fgnt=070) 7.1 gm/dL 6.0-8.3 ALBUMIN (BEAKER) (test hitc=2501) 4.4 g/dL 3.5-5.0 BILIRUBIN TOTAL (BEAKER) (test afvc=324) 1.2 mg/dL 0.2-1.2 BILIRUBIN DIRECT (BEAKER) (test igng=159) 0.4 mg/dL 0.1-0.5 ALKALINE PHOSPHATASE (BEAKER) (test quzz=312) 45 U/L 40-150 AST (SGOT) (BEAKER) (test bxqi=259) 10 U/L 5-34 ALT (SGPT) (BEAKER) (test ewnm=939) 12 U/L 6-55 C-REACTIVE [id number] 10:42:00* Test Item Value Reference Range Comments C-REACTIVE PROTEIN (BEAKER) (test emrx=854) 0.33 mg/dL 0.00-0.50 CBC W/PLT COUNT & AUTO [id number] 10:26:00* Test Item Value Reference Range Comments WHITE BLOOD CELL COUNT (BEAKER) (test wlff=080) 10.7 K/ L 4.0-10.0 RED BLOOD CELL COUNT (BEAKER) (test qjlq=599) 4.66 M/ L 4.20-5.80 HEMOGLOBIN (BEAKER) (test vtbw=476) 15.5 GM/DL 13.0-16.8 HEMATOCRIT (BEAKER) (test xilb=867) 43.8 % 40.0-50.0 MEAN CORPUSCULAR VOLUME (BEAKER) (test kngt=380) 94.1 fL 82.0-98.0 MEAN CORPUSCULAR HEMOGLOBIN (BEAKER) (test puyd=438) 33.3 pg 27.0-33.0 MEAN CORPUSCULAR HEMOGLOBIN CONC (BEAKER) (test hluq=657) 35.4 GM/DL 32.0-36.0 RED CELL DISTRIBUTION WIDTH (BEAKER) (test lplm=068) 12.9 % 10.3-14.2 PLATELET COUNT (BEAKER) (test eqhl=944) 192 K/CU MM 150-430 MEAN PLATELET VOLUME (BEAKER) (test ahzm=843) 5.7 fL 6.5-10.5 NUCLEATED RED BLOOD CELLS (BEAKER) (test balh=040) 0 /100 WBC 0-0 NEUTROPHILS RELATIVE PERCENT (BEAKER) (test sbjd=120) 79 % LYMPHOCYTES RELATIVE PERCENT (BEAKER) (test tmjo=679) 15 % MONOCYTES RELATIVE PERCENT (BEAKER) (test kbqs=062) 5 % EOSINOPHILS RELATIVE PERCENT (BEAKER) (test wdus=906) 0 % BASOPHILS RELATIVE PERCENT (BEAKER) (test wsbr=716) 0 % NEUTROPHILS ABSOLUTE COUNT (BEAKER) (test izeu=889) 8.44 K/ L 1.80-8.00 LYMPHOCYTES ABSOLUTE COUNT (BEAKER) (test qkci=449) 1.65 K/ L 1.48-4.50 MONOCYTES ABSOLUTE COUNT (BEAKER) (test kkkc=528) 0.55 K/ L 0.00-1.30 EOSINOPHILS ABSOLUTE COUNT (BEAKER) (test wnxa=040) 0.05 K/ L 0.00-0.50 BASOPHILS ABSOLUTE COUNT (BEAKER) (test abgw=034) 0.05 K/ L 0.00-0.20 0.00CREATINE KINASE (CK), TOTAL AND [id number] 02:08:00* Test Item Value Reference Range Comments CREATINE KINASE TOTAL (BEAKER) (test unic=870) 50 U/L 29-200 CREATINE KINASE-MB (BEAKER) (test blqv=477) 0.7 ng/mL 0.0-6.6 CREATINE KINASE-MB INDEX (BEAKER) (test ifhj=723) 1.4 % Effective 06/27/2014: CK-MB Reference Range ChangeNew: 0.0-6.6 Previous: 0.0- 4.9CK-MB Reference Range:<6.7 Normal6.7-10.0 Borderline>10.0 Abnormal TROPONIN [id number] 02:08:00* Test Item Value Reference Range Comments TROPONIN I (BEAKER) (test lnoh=715) 0.01 ng/mL 0.00-0.03 Effective 06/27/2014: Reference Range [...] acidosis, acute neurological disease, and pers istent tachyarrhythmia.[id number] 01:36:00* Test Item Value Reference Range Comments D-DIMER QUANTITATIVE (BEAKER) (test pxsa=349) < MG/L FEU <0.50 Intended Use: The D-Dimer Assay can be used to aid in the diagnosis of Deep Vein Thrombosis (DVT) and Pulmonary Embolism Disease (PED).In patients with low pre- test probability, various studies concerning STA Liatest D-dimer test have repor dionisio that with a cutoff value of 0.50 MG/L FEU, the Negative Predictive Value (TRACTOR TRAILER OPERATOR V) regarding the exclusion of thrombosis is within 95-100% range.COMPREHENSIVE METABOLIC [id number] 21:22:00* Test Item Value Reference Range Comments TOTAL PROTEIN (BEAKER) (test awtn=320) 7.6 gm/dL 6.0-8.3 ALBUMIN (BEAKER) (test onpp=9554) 4.6 g/dL 3.5-5.0 ALKALINE PHOSPHATASE (BEAKER) (test uruh=734) 51 U/L 40-150 BILIRUBIN TOTAL (BEAKER) (test tqwh=811) 0.9 mg/dL 0.2-1.2 SODIUM (BEAKER) (test arsy=623) 139 meq/L 136-145 POTASSIUM (BEAKER) (test zqde=284) 3.8 meq/L 3.5-5.1 CHLORIDE (BEAKER) (test quim=528) 106 meq/L 98-107 CO2 (BEAKER) (test ajki=979) 21 meq/L 22-29 BLOOD UREA NITROGEN (BEAKER) (test jszl=737) 12 mg/dL 7-21 CREATININE (BEAKER) (test nfvt=875) 1.05 mg/dL 0.57-1.25 GLUCOSE RANDOM (BEAKER) (test potu=206) 99 mg/dL 70-105 CALCIUM (BEAKER) (test fvwy=118) 9.8 mg/dL 8.4-10.2 AST (SGOT) (BEAKER) (test oyqy=739) 11 U/L 5-34 ALT (SGPT) (BEAKER) (test csib=768) 16 U/L 6-55 EGFR (BEAKER) (test etdh=2087) mL/min/1.73 sq m INSUFFICIENT CLINICAL DATA TO CALCULATE ESTIMATED GFR. PT/[id number] 21:19:00* Test Item Value Reference Range Comments PROTIME (BEAKER) (test ocul=366) 12.7 seconds 11.7-14.7 INR (BEAKER) (test mako=740) 1.0 <=5.9 PARTIAL THROMBOPLASTIN TIME (BEAKER) (test zlgx=159) 25.3 seconds 22.5-36.0 RECOMMENDED COUMADIN/WARFARIN INR THERAPY RANGESSTANDARD DOSE: 2.0 - 3.0 Inclu odin: PROPHYLAXIS for venous thrombosis, systemic embolization; TREATMENT for dipti ous thrombosis and/or pulmonary embolus.HIGH RISK: Target INR is 2.5-3.5 for pat ients with mechanical heart valves.CREATINE KINASE (CK), TOTAL AND [id number] 21:17:00* Test Item Value Reference Range Comments CREATINE KINASE TOTAL (BEAKER) (test lmuv=781) 52 U/L 29-200 CREATINE KINASE-MB (BEAKER) (test ztqk=600) 0.7 ng/mL 0.0-6.6 CREATINE KINASE-MB INDEX (BEAKER) (test szsn=789) 1.3 % Effective 06/27/2014: CK-MB Reference Range ChangeNew: 0.0-6.6 Previous: 0.0- 4.9CK-MB Reference Range:<6.7 Normal6.7-10.0 Borderline>10.0 Abnormal TROPONIN [id number] 21:17:00* Test Item Value Reference Range Comments TROPONIN I (BEAKER) (test jphm=704) < ng/mL 0.00-0.03 Effective 06/27/2014: Reference Range [...] pers istent tachyarrhythmia.CBC W/PLT COUNT & AUTO [id number] 20:57:00* Test Item Value Reference Range Comments WHITE BLOOD CELL COUNT (BEAKER) (test jozy=759) 9.7 K/ L 4.0-10.0 RED BLOOD CELL COUNT (BEAKER) (test vklb=454) 4.90 M/ L 4.20-5.80 HEMOGLOBIN (BEAKER) (test hqye=242) 16.0 GM/DL 13.0-16.8 HEMATOCRIT (BEAKER) (test cezg=882) 45.9 % 40.0-50.0 MEAN CORPUSCULAR VOLUME (BEAKER) (test mqei=547) 93.8 fL 82.0-98.0 MEAN CORPUSCULAR HEMOGLOBIN (BEAKER) (test derp=431) 32.7 pg 27.0-33.0 MEAN CORPUSCULAR HEMOGLOBIN CONC (BEAKER) (test babq=220) 34.9 GM/DL 32.0-36.0 RED CELL DISTRIBUTION WIDTH (BEAKER) (test gugn=248) 12.9 % 10.3-14.2 PLATELET COUNT (BEAKER) (test mosd=024) 195 K/CU MM 150-430 MEAN PLATELET VOLUME (BEAKER) (test awws=786) 5.7 fL 6.5-10.5 NUCLEATED RED BLOOD CELLS (BEAKER) (test augg=976) 0 /100 WBC 0-0 NEUTROPHILS RELATIVE PERCENT (BEAKER) (test auaf=107) 70 % LYMPHOCYTES RELATIVE PERCENT (BEAKER) (test esxc=047) 22 % MONOCYTES RELATIVE PERCENT (BEAKER) (test tmee=311) 7 % EOSINOPHILS RELATIVE PERCENT (BEAKER) (test qpln=764) 1 % BASOPHILS RELATIVE PERCENT (BEAKER) (test bewq=570) 0 % NEUTROPHILS ABSOLUTE COUNT (BEAKER) (test iadw=104) 6.81 K/ L 1.80-8.00 LYMPHOCYTES ABSOLUTE COUNT (BEAKER) (test oveg=124) 2.13 K/ L 1.48-4.50 MONOCYTES ABSOLUTE COUNT (BEAKER) (test mbef=632) 0.68 K/ L 0.00-1.30 EOSINOPHILS ABSOLUTE COUNT (BEAKER) (test uuvn=995) 0.05 K/ L 0.00-0.50 BASOPHILS ABSOLUTE COUNT (BEAKER) (test tyyi=956) 0.01 K/ L 0.00-0.20 0.00
--- OUTSIDE RECORDS SUMMARY | 2018-09-20 13:40 | XMS REPORT ---
Author Author Admin, Lynd Organization [facility] Address [address] [place] [address] Phone Allergies, Adverse Reactions, Alerts Allergy Name [...] Coronary atherosclerosis of unspecified type of vessel, [place] or graft Diabetes mellitus type II 250.00 [...] SOLUTION 42 units sq daily INSULIN GLARGINE 40900454808 Active Snehal Gutierrez MD Active LISINOPRIL 5 MG ORAL TABLET 1 by mouth every day LISINOPRIL 33774686041 Active Snehal Gutierrez MD Active SURE COMFORT PEN NEEDLES 31G X 5 MM use as directed INSULIN PEN NEEDLE 24605562453 Active Snehal Gutierrez MD Active VIIBRYD 40 MG ORAL TABLET Take 1 tablet by mouth daily. VILAZODONE HCL 37220075444 Active Lele Suárez MD Active BD PEN NEEDLE LUZ U/F 32G X 4 MM Please use new needle for pen INSULIN PEN NEEDLE 45739384526 Active Delicia Meraz MD (res) Active ASPIRIN 81 MG ORAL TABLET DELAYED RELEASE 1 by mouth every day ASPIRIN 94688631910 Active Juliann Worley MD (res) Active MECLIZINE HCL 25 MG ORAL TABLET 1 by mouth 3 times a day as needed for dizziness MECLIZINE HCL 81101960048 Active Juliann Worley MD (res) Active DOXEPIN HCL 25 MG ORAL CAPSULE Take 1-2 capsules at bedtime as needed for sleep. DOXEPIN HCL 49929920193 Active Lele Suárez MD Active PAXIL 30 MG ORAL TABLET Take 2 tablets by mouth daily. PAROXETINE HCL 18502888497 Active Lele Suárez MD Active ATORVASTATIN CALCIUM 80 MG ORAL TABLET Take one tablet By Mouth Every Day ATORVASTATIN CALCIUM 01386732041 Active Orestes Carrillo MD (res) Active LORATADINE 10 MG ORAL TABLET 1 By Mouth once a day as needed for allergies LORATADINE 26265189881 Active Paula Clay MD Active METFORMIN HCL 1000 MG ORAL TABLET 1 by mouth twice a day METFORMIN HCL 60072515598 Active Paula Clay MD Active METOPROLOL TARTRATE 25 MG ORAL TABLET 1 by mouth twice a day METOPROLOL TARTRATE 84769826121 Active Orestes Carrillo MD (res) Active PLAVIX 75 MG ORAL TABLET 1 by mouth every day CLOPIDOGREL BISULFATE 15079593289 Active Snehal Gutierrez MD Active DIAZEPAM 10 MG TABS TAKE 1/2 TO 1 TABLET BY MOUTH DAILY NEEDED FOR ANXIETY DIAZEPAM 68913368980 Active Lele Suárez MD Active LANTUS SOLOSTAR 100 UNIT/ML SUBCUTANEOUS SOLUTION PEN-INJECTOR 42 unit sq daily LANTUS SOLOSTAR 100 UNIT/ML SUBCUTANEOUS SOLUTION PEN-INJECTOR INSULIN GLARGINE Inactive AZITHROMYCIN 250 MG ORAL TABLET 2 tablets by mouth on day one then one tablet by mouth each day for a total of 5 days AZITHROMYCIN 250 MG ORAL TABLET 569710 AZITHROMYCIN Inactive CEFDINIR 300 MG ORAL CAPSULE 2 tablets by mouth every day for 10 days CEFDINIR 300 MG ORAL CAPSULE 788228 CEFDINIR Inactive TYLENOL WITH CODEINE #3 300-30 [...] a day. GABITRIL 4 MG ORAL TABLET 4489254 TIAGABINE HCL Inactive DIVALPROEX SODIUM ER 500 MG ORAL TABLET EXTENDED RELEASE 24 HOUR Takes 3 tablets in the morning and take at bedtime DIVALPROEX SODIUM ER 500 MG ORAL TABLET EXTENDED RELEASE 24 HOUR DIVALPROEX SODIUM Inactive GABAPENTIN 300 MG ORAL CAPSULE take three tablets Every Morning and three tablets take at bedtime GABAPENTIN 300 MG ORAL CAPSULE 628656 GABAPENTIN Inactive GLIPIZIDE 10 MG ORAL TABLET Takes one tablet Twice a Day GLIPIZIDE 10 MG ORAL TABLET 462931 GLIPIZIDE Inactive JANUVIA 100 MG ORAL TABLET 1 tab By Mouth daily JANUVIA 100 MG ORAL TABLET SITAGLIPTIN PHOSPHATE Inactive LISINOPRIL 10 MG ORAL TABLET 1 by mouth every day LISINOPRIL 10 MG ORAL TABLET 017717 LISINOPRIL Inactive NORTRIPTYLINE HCL 25 MG ORAL CAPSULE Take one tablet By Mouth take at bedtime NORTRIPTYLINE HCL 25 MG ORAL CAPSULE 418601 NORTRIPTYLINE HCL Inactive NORTRIPTYLINE HCL 25 MG ORAL CAPSULE Take 2 capsules by mouth at bedtime as needed for sleep. NORTRIPTYLINE HCL 25 MG ORAL CAPSULE 242272 NORTRIPTYLINE HCL Inactive PAROXETINE HCL 20 MG ORAL TABLET Take 3 tablets By Mouth Every Morning PAROXETINE HCL 20 MG ORAL TABLET 0244752 PAROXETINE HCL Inactive PRAZOSIN HCL 2 MG ORAL CAPSULE Take 2 tablets By Mouth take at bedtime PRAZOSIN HCL 2 MG ORAL CAPSULE 547670 PRAZOSIN HCL Inactive TRAZODONE HCL 300 MG ORAL TABLET 1 by mouth every night TRAZODONE HCL 300 MG ORAL TABLET 256738 TRAZODONE HCL Inactive LANTUS SOLOSTAR 100 UNIT/ML SUBCUTANEOUS SOLUTION PEN-INJECTOR 42 unit sq daily INSULIN GLARGINE 44178946997 No Longer Active Snehal Gutierrez MD Active AZITHROMYCIN 250 MG ORAL TABLET 2 tablets by mouth on day one then one tablet by mouth each day for a total of 5 days AZITHROMYCIN 61823571262 No Longer Active Snehal Gutierrez MD Active CEFDINIR 300 MG ORAL CAPSULE 2 tablets by mouth every day for 10 days CEFDINIR 81848994553 No Longer Active Joe Mcmullen MD Active TYLENOL WITH CODEINE #3 300-30 MG ORAL TABLET 1 by mouth every 8 hours as needed ACETAMINOPHEN-CODEINE 90706938739 No Longer Active Snehal Gutierrez MD Active VIIBRYD 20 MG ORAL TABLET Take 1 tablet by mouth daily. VILAZODONE HCL 81066591180 No Longer Active Lele Suárez MD Active GABITRIL 4 MG ORAL TABLET Take one tablet by mouth twice a day. TIAGABINE HCL 51861435069 No Longer Active Lele Suárez MD Active DIVALPROEX SODIUM ER 500 MG ORAL TABLET EXTENDED RELEASE 24 HOUR Takes 3 tablets in the morning and take at bedtime DIVALPROEX SODIUM 81777329883 No Longer Active Lele Suárez MD Active GABAPENTIN 300 MG ORAL CAPSULE take three tablets Every Morning and three tablets take at bedtime GABAPENTIN 31094138618 No Longer Active Lele Suárez MD Active GLIPIZIDE 10 MG ORAL TABLET Takes one tablet Twice a Day GLIPIZIDE 93384957365 No Longer Active Paula Clay MD Active JANUVIA 100 MG ORAL TABLET 1 tab By Mouth daily SITAGLIPTIN PHOSPHATE 97859150437 No Longer Active Snehal Gutierrez MD Active LISINOPRIL 10 MG ORAL TABLET 1 by mouth every day LISINOPRIL 15375961112 No Longer Active Snehal Gutierrez MD Active NORTRIPTYLINE HCL 25 MG ORAL CAPSULE Take 2 capsules by mouth at bedtime as needed for sleep. NORTRIPTYLINE HCL 85274875683 No Longer Active Lele Suárez MD Active NORTRIPTYLINE HCL 25 MG ORAL CAPSULE Take one tablet By Mouth take at bedtime NORTRIPTYLINE HCL 31489988687 No Longer Active Paula Clay MD Active PAROXETINE HCL 20 MG ORAL TABLET Take 3 tablets By Mouth Every Morning PAROXETINE HCL 79429982671 No Longer Active Lele Suárez MD Active PRAZOSIN HCL 2 MG ORAL CAPSULE Take 2 tablets By Mouth take at bedtime PRAZOSIN HCL 30925581285 No Longer Active Juliann Worley MD (res) Active TRAZODONE HCL 300 MG ORAL TABLET 1 by mouth every night TRAZODONE HCL 81750775092 No Longer Active Lele Suárez MD Active [...] sodium, serum 134 mmol/L 134-144 Lab Report: [id number] 7+Alc-Unbund, Amphetamines Confirmation, Ur, 862735 7 ... - Toxicology benzodiazepine screen, urine Positive Ppvpzd=105 Lab Report: TSH+Free T4, Comp. Metabolic Panel (14), Lipid Panel, Hemogl ... - Chemistry thyroid stimulating hormone, serum 0.989 u[iU]/mL 0.450-4.500 Lab Report: [id number] 7+Alc-Unbund, Amphetamines Confirmation, Ur, [id number] 7 ... - Toxicology amphetamine screen, urine Negative Cgywif=2732 Lab Report: TSH+Free T4, Comp. Metabolic Panel (14), Lipid Panel, Hemogl ... - Chemistry very low density lipoproteins 60 mg/dL 5-40 Lab Report: [id number] 7+Alc-Unbund, Amphetamines Confirmation, Ur, 096964 7 ... - Chemistry cannabinoid screen, urine Negative ng/mL Cutoff=50 Lab Report: TSH+Free T4, Comp. Metabolic Panel (14), Lipid Panel, Hemogl ... - Chemistry carbon dioxide, venous blood 22 mmol/L 20-29 Lab Report: [id number] 7+Alc-Unbund, Amphetamines Confirmation, Ur, [id number] 7 ... - Toxicology phencyclidine screen, urine Negative ng/mL Cutoff=25 Lab Report: TSH+Free T4, Comp. Metabolic Panel (14), Lipid Panel, Hemogl ... - Chemistry chloride, serum 97 mmol/L 96-106 triglyceride, serum, fasting 298 mg/dL 0-149 calcium, serum 10.3 mg/dL 8.7-10.2 urea nitrogen, blood 15 mg/dL 6-24 alanine aminotransferase (SGPT), serum 50 U/L 0-44 Office Visit: Acute Visit [facility] - Chemistry blood glucose, fasting 177 mg/dL [...] of total hemoglobin 9.3 % Lab Report: [id number] 7+Alc-Unbund, Amphetamines Confirmation, Ur, [id number] 7 ... - Toxicology barbiturates screen, urine Negative Yimsmv=685 cocaine, urine Negative Xinlqg=991 Lab Report: TSH+Free T4, Comp. Metabolic Panel [...] serum 1.9 1.2-2.2 cholesterol, serum 202 mg/dL 859-143 7650/09/07 bilirubin, serum, total 0.3 mg/dL 0.0-1.2 Office Visit: Adult Followup rm 2 - Chemistry blood glucose, random 202 mg/dL Lab Report: TSH+Free T4, Comp. Metabolic Panel (14), Lipid Panel, Hemogl ... - Chemistry aspartate aminotransferase (SGOT), serum 32 U/L 0-40 potassium, serum 4.6 mmol/L 3.5-5.2 albumin, serum 4.7 g/dL 3.5-5.5 Lab Report: [id number] 7+Alc-Unbund, Amphetamines Confirmation, Ur, 375731 7 ... - Toxicology opiates, urine, semiquantitative See Final Results Sfoykm=579 Encounters Date Encounter Provider Code Facility 13:05:06 ADHESION TESTER Est Patient Exp Problem - 93401 Snehal Gutierrez MD CPT-86691 [facility] 11:06:52 ADHESION TESTER Est Patient Detailed - 18459 Snehal Gutierrez MD CPT-07709 [facility] 14:01:37 ADHESION TESTER Est Patient Exp Problem - 52194 Lele Suárez MD CPT-24267 [facility] 16:17:36 ADHESION TESTER Est Patient Exp Problem - 47933 Joe Mcmullen MD CPT-46522 [facility] 15:02:34 ADHESION TESTER Est Patient Exp Problem - 83125 Lele Suárez MD CPT-66182 [facility] 17:20:36 ADHESION TESTER Est Patient Exp Problem - 70123 Delicia Meraz MD (res) CPT-20481 [facility] 16:35:53 ADHESION TESTER Est Patient Exp Problem - 17277 Bandar Garcia MD R3 CPT-45992 [facility] 10:34:23 ADHESION TESTER Est Patient Exp Problem - 59535 Juliann Worley MD (res) CPT-52956 [facility] 15:34:44 ADHESION TESTER Est Patient Exp Problem - 88634 Lele Suárez MD CPT-69186 [facility] 15:35:27 ADHESION TESTER Est Patient Exp Problem - 05889 Juliann Worley MD (res) CPT-15116 [facility] 15:12:46 CDT Est Patient Exp Problem - 15281 Lele Suárez MD CPT-32393 [facility] 13:08:51 CDT Est Patient Detailed - 47038 Lele Suárez MD CPT-01046 [facility] 23:10:36 CDT Est Patient Detailed - 36860 Paula Clay MD CPT-95506 [facility] 14:28:27 CDT Est Patient Exp Problem - 69498 Oscar Nielson MD (res) CPT-03990 [facility] 15:02:09 CDT Est Patient Exp Problem - 90610 Paula Clay MD CPT-39585 [facility] 10:56:53 CDT New Patient Detailed - 78187 Pepito Boyd MD CPT-99963 [facility] Procedures Code Procedure Name Date Entry Date Standard Description CPT-70189 Psychotherapy 45 (38-52*) min - 22511 (with patient and/or family member) 09:39:01 ADHESION TESTER CPT-69924 [facility] Indiv - 05868 14:47:42 ADHESION TESTER CPT-26431 HEMOGLOBIN A1C - In House 10:34:23 ADHESION TESTER CPT-04830 Diagnostic evaluation (no medical) - 33698 08:53:47 ADHESION TESTER CPT-59903 Glucose Stick 15:55:29 ADHESION TESTER CPT-33861 Diagnostic evaluation with medical - 39448 13:48:41 CDT
[2018-09-20] MEDS ORDERED: ASPIRIN 81 MG CHEW TAB PO ONE (14:15)
--- NOTE | 2018-09-20 14:39 | NUR ---
BLOOD HEMOLYZED . REDRAWN
[2018-09-20 15:07] LABS: BASOPHILS # (AUTO) 0.1 (0.0-0.1); BASOPHILS % 0.6 % (0.0-1.0); EOSINOPHILS # (AUTO) 0.1 (0.0-0.4); EOSINOPHILS % 0.6 % (0.0-6.0); HEMATOCRIT 40.6 % (38.2-49.6); HEMOGLOBIN 14.2 g/dL (14.0-18.0); LYMPHOCYTES # (AUTO) 1.5 (1.0-3.2); LYMPHOCYTES % 17.7 % (18.0-39.1); MEAN CORPUSCULAR HEMOGLOBIN 29.4 pg (28-32); MEAN CORPUSCULAR VOLUME 84.1 fL (81-99); MONOCYTES # (AUTO) 0.5 (0.2-0.8); MONOCYTES % 5.7 % (4.4-11.3); NEUTROPHILS # (AUTO) 6.4 (2.1-6.9); NEUTROPHILS % 75.2 % (38.7-80.0); PLATELET COUNT 244 x10e3/uL (140-360); RED BLOOD COUNT 4.83 x10e6/uL (4.3-5.7); RED CELL DISTRIBUTION WIDTH 14.4 % (11.7-14.4)
[2018-09-20 15:20] LABS: INR 0.92; PARTIAL THROMBOPLASTIN TIME 30.7 seconds (23.8-35.5); PROTHROMBIN TIME 13.2 seconds (11.9-14.5)
--- NOTE | 2018-09-20 15:32 | Diagnostic Imaging Report ---
EXAMINATION: CHEST SINGLE (PORTABLE) INDICATION: Chest pain. COMPARISON: Chest radiograph 05/27/18. FINDINGS: TUBES and LINES: None. LUNGS: Lungs are well inflated. Lungs are clear. There is no evidence of pneumonia or pulmonary edema. PLEURA: No pleural effusion or pneumothorax. HEART AND MEDIASTINUM: The cardiomediastinal silhouette is unremarkable. BONES AND SOFT TISSUES: No acute osseous lesion. Soft tissues are unremarkable. UPPER ABDOMEN: No free air under the diaphragm. IMPRESSION: No acute radiographic abnormality. Signed by: Dr. Radha Hilliard MD on 09/20/2018 3:29 PM
[2018-09-20 15:33] LABS: ALBUMIN 3.9 g/dL (3.5-5.0); ALBUMIN/GLOBULIN RATIO 1.2 (0.8-2.0); ANION GAP 18.6 mmol/L (8-16); CALCIUM 9.7 mg/dL (8.4-10.2); CREATININE, SERUM 1.48 mg/dL (0.72-1.25); POTASSIUM 4.6 mmol/L (3.5-5.1)
[2018-09-20 15:42] LABS: CREATINE KINASE MB 0.6 ng/mL (0-5.0)
[2018-09-20] MEDS ORDERED: KEPPRA500 MG PO (15:46)
[2018-09-20] MEDS ORDERED: NOVOLOG100 UNIT/1 (15:46)
[2018-09-20] MEDS ORDERED: ELOQUIS PO (15:46)
[2018-09-20] MEDS ORDERED: VYBRID PO (15:46)
[2018-09-20] MEDS ORDERED: LISINOPRIL2.5 MG PO (15:46)
[2018-09-20] MEDS ORDERED: NOVOLOG100 UNIT/1 SC (15:46)
[2018-09-20] MEDS ORDERED: LANTUS 3ML100 UNITS/ SC (15:46)
[2018-09-20] MEDS ORDERED: ONDANSETRON HCL INJ 2MG/ML 2ML 2 MG/ML VIAL IV STA (15:56)
[2018-09-20] MEDS ORDERED: MORPHINE SULFATE 2 MG/ML SYR 1ML IV STA (15:56)
[2018-09-20 16:11] LABS: CLARITY,URINE CLEAR (CLEAR); COLOR,URINE YELLOW (YELLOW); LEUKOCYTE ESTERASE ,URINE NEGATIVE (NEGATIVE); NITRITE,URINE NEGATIVE (NEGATIVE)
[2018-09-20 16:12] LABS: BILIRUBIN,URINE NEGATIVE (NEGATIVE); KETONES,URINE NEGATIVE (NEGATIVE); PROTEIN,URINE DIPSTICK NEGATIVE (NEGATIVE); URINE UROBILINOGEN 0.2 mg/dL (0.2 - 1)
[2018-09-20] MEDS ORDERED: MORPHINE SULFATE INJ 4 MG/ML INJ 1ML IV NR (16:15)
--- NOTE | 2018-09-20 17:26 | NUR ---
Patient has history of visits to [facility] every other day for 'falls' 'syncope' and back pain He has been admitted and worked up and never found problems He was prescribed Hydrocodone 09/09/18 and has received hydrocodone 2-3 time in this ED and now states he is 'allergic' He is exhibiting significant drug-seeking behaviour
== END 2018-09-20 17:59 | disposition home or self-care (01) ==
LOC: ER 13:31
DX: R07.89 Other chest pain (principal); I10 Essential (primary) hypertension; E11.65 Type 2 diabetes mellitus with hyperglycemia; Z79.4 Long term (current) use of insulin; Z79.84 Long term (current) use of oral hypoglycemic drugs; J44.9 Chronic obstructive pulmonary disease, unspecified; F43.10 Post-traumatic stress disorder, unspecified; I45.10 Unspecified right bundle-branch block
CPT/HCPCS: 36415; 71045; 80053; 81001; 82550; 82553; 83880; 84484; 85025; 85610; 85730; 93005; 99284; J2270; J2405

== ENCOUNTER 2018-10-04 21:31 | Emergency (ER) | payer BC ==
[~2018-10-04 21:31] MED LIST changes: +ELOQUIS PO; +KEPPRA500 MG PO; +LANTUS 3ML100 UNITS/ SC; +LISINOPRIL2.5 MG PO; +NOVOLOG100 UNIT/1; +NOVOLOG100 UNIT/1 SC; +VYBRID PO
--- OUTSIDE RECORDS SUMMARY | 2018-10-04 21:34 | XMS REPORT | Clinical Summary ---
Author Author [facility] Address Unknown Phone Unavailable Care Team Providers Care Adz Worker Name Role Phone Pcp, No PCP Unavailable [...] pain 06/06/2018 Emergency Emergency Medicine [facility]2018 [facility] 06/05/2018 Emergency Emergency Medicine Gagan Mai MD Adio, Titilola R., MD Kulkarni, Mark Anthony Delgado MD Syncope and collapse (Primary Dx); Head injury, acute, initial encounter; Neck pain, acute; Acute bilateral back pain, unspecified back location; Acute hyperglycemia; Tobacco abuse; Coronary artery disease involving togiak coronary artery of [place]gi[place] heart without angina pectoris; Precordial pain 05/29/2018 Emergency Cardiology - 05/31/2018 Mouna Krishna RN Diabetes 05/20/2018 Telephone Cardiology Mouna Krishna RN Diabetes 05/19/2018 Telephone Cardiology Juli Saenz MD Tirukkovalluri, Srilakshmi, MD Agrawal, Neeraj, MD Precordial pain (Primary Dx); Tobacco abuse; History of CA (myocardial infarction); Dizziness; Anxiety; 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 (HCC); PTSD (post-traumatic stress disorder); Hyperglycemia; Type 2 diabetes mellitus treated with insulin (HCC) 05/07/2018 Hospital Cardiology - Encounter 05/11/2018 05/07/2018 Orders Only General Internal Medicine after 10/03/2017 Immunizations Name Dates Previously Given Next Due [...] 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 05/09/2018 [id number] / / [id number] Closure Sys Perclose Progl 6fr Cardiovasc Right: Groin HADDAM [id number] - [id number] [facility] LAB:VASC Implanted: Qty: 1 on 12/26/2016 [...] ms QTC Calculatio n(Bazett) 425 ms P Rowlett 17 degrees R Rowlett 40 degrees T Rowlett 56 degrees Normal sinus rhythm Incomplete right [...] ms QTC Calculatio n(Bazett) 455 ms P Rowlett 38 degrees R Rowlett 42 degrees T Rowlett 42 degrees Sinus rhythm with Possible Premature [...] 12-LEAD STAT 05/07/2018 1:36 PM CDT after 10/03/2017 Results * POC-Glucose meter (06/06/2018 8:02 PM CDT) Only the most recent of 33 results within the time period is included. POC-Glucose Meter 186 (H)Comment: TESTED AT 70 - 110 mg/dL [address] [address] Specimen Blood Performing Organization Address City/State/Zipcode Phone Number [address] [address] [facility] * Troponin I (not available at [facility] [employer]) (06/06/2018 7:18 PM CDT) Only the most recent of 8 results within the time period is included. Troponin I <0.01 0.00 - 0.03 ng/mL [facility] Specimen Blood Narrative Performed At Troponin I (TnI) levels must be interpreted in the context of the presenting [facility] symptoms and the clinical findings. Elevated TnI levels indicate myocardial [facility] damage, but are not specific for ischemic heart disease. Elevated TnI levels are seen in patients with other cardiac conditions (including myocarditis and congestive heart failure), and slight TnI elevations occur in patients with other conditions, including sepsis, renal failure, acidosis, acute neurological disease, and persistent tachyarrhythmia. Performing Organization Address City/State/Zipcode Phone Number [facility] [address] [place] [address] [facility] * ECG 12 lead (06/06/2018 6:44 PM CDT) Only the most recent of 4 results within the time period is included. Narrative Performed At Ventricular Rate 97 BPM GE MUSE Atrial Rate 97 BPM P-R Interval 172 ms QRS Duration 106 ms Q-T Interval 356 ms QTC Calculation(Bazett) 452 ms P Rowlett 53 degrees R Rowlett 125 degrees T Rowlett 32 degrees Normal sinus rhythm Left posterior [...] 356 ms QTC Calculation(Bazett) 452 ms P Rowlett 53 degrees R Rowlett 125 degrees T Rowlett 32 degrees Normal sinus rhythm Left posterior fascicular block Incomplete right bundle branch block Inferior infarct , age undetermined Abnormal ECG When compared with ECG of 04-JUN-2018 19:29, Left posterior fascicular block is now Present Inferior infarct is now Present Confirmed by MD ALDANA YOCHAI ([id number]) on 06/07/2018 6:33:54 AM Performing Organization Address City/State/[facility] Phone Number GE MUSE * ECG/EKG Interpretation [...] LAFB. ST segments normal. T waves abnormal. Rowlett is normal. Other findings: no other findings. Clinical Impression: abnormal ECGECG reviewed and does not meet STEMI criteria. Patient tolerance: Patient tolerated the procedure well with no immediate complications * CBC with platelet count + automated diff (06/06/2018 4:36 PM CDT) Only the most recent of 7 results within the time period is included. WBC 6.6 3.5 - 10.5 K/L [facility] RBC 4.20 (L) 4.63 - 6.08 M/L [facility] Hemoglobin 12.9 (L) 13.7 - 17.5 GM/DL [facility] Hematocrit 37.6 (L) 40.1 - 51.0 % [facility] MCV 89.5 79.0 - 92.2 fL [facility] MCH 30.7 25.7 - 32.2 pg [facility] MCHC 34.3 32.3 - 36.5 GM/DL [facility] RDW 13.1 11.6 - 14.4 % [facility] Platelets 142 (L) 150 - 450 K/CU MM [facility] MPV 9.0 (L) 9.4 - 12.4 fL [facility] nRBC 0 0 - 0 /100 WBC [facility] % Neutros 74 % [facility] % Lymphs 18 % [facility] % Monos 7 % [facility] % Eos 1 % [facility] % Baso 0 % [facility] # Neutros 4.92 1.78 - 5.38 K/L [facility] # Lymphs 1.20 (L) 1.32 - 3.57 K/L [facility] # Monos 0.44 0.30 - 0.82 K/L [facility] # Eos 0.03 (L) 0.04 - 0.54 K/L [facility] # Baso 0.02 0.01 - 0.08 K/L [facility] Immature 0 0 - 1 % [facility] Granulocytes-Relative [facility] Specimen Blood Performing Organization Address City/State/Zipcode Phone Number [address] [address] [facility] * Ketones, blood (06/06/2018 4:36 PM CDT) Ketones, Blood 0.1 <0.4 mmol/L [facility] Specimen Blood Performing Organization Address City/[facility] [place] [address] [phone] [place] [address] * Basic metabolic panel (Na, K+, Cl, CO2, Glu, Ca, BUN, Cr) (06/06/2018 4:36 PM CDT) Only the most recent of 8 results within the time period is included. Sodium 132 (L) 136 - 145 meq/L [facility] Potassium 3.9 3.5 - 5.1 meq/L [facility] Chloride 103 98 - 107 meq/L [facility] CO2 18 (L) 22 - 29 meq/L [facility] BUN 11 7 - 21 mg/dL [facility] Creatinine 1.25 0.57 - 1.25 mg/dL [facility] Glucose 355 (H) 70 - 105 mg/dL [facility] Calcium 10.3 (H) 8.4 - 10.2 mg/dL [facility] EGFR 62Comment: ESTIMATED GFR IS mL/min/1.73 sq m [facility] NOT ACCURATE CREATININE [facility] CLEARANCE IN PREDICTING GLOMERULAR FILTRATION RATE. ESTIMATED GFR IS NOT APPLICABLE FOR DIALYSIS PATIENTS. Specimen Blood Performing Organization Address City/State/Zipcode Phone Number [facility] [address] [place] [address] [facility] * PT/aPTT (06/04/2018 9:11 PM CDT) Only the most recent of 3 results within the time period is included. Protime 12.5 11.7 - 14.7 seconds [facility] INR 0.9 <=5.9 [facility] PTT 23.9 22.5 - 36.0 seconds [facility] Specimen Blood Narrative Performed At RECOMMENDED COUMADIN/WARFARIN INR THERAPY RANGES [facility] STANDARD DOSE: 2.0 - 3.0 Includes: PROPHYLAXIS for venous thrombosis, [facility] systemic embolization; TREATMENT for venous thrombosis and/or pulmonary embolus. HIGH RISK: Target INR is 2.5-3.5 for patients with mechanical heart valves. Performing Organization Address City/[facility] Phone Number [facility] [address] [place], [place] [id number] [facility] * CT brain without IV contrast (06/04/2018 7:23 PM CDT) Only the most recent of 2 results within the time period is included. Narrative Performed At FINAL REPORT Barcoding [facility] CT head without contrast INDICATION: Ataxia, head [...] MD Report Verified Date/Time:06/04/2018 19:34:16 Reading Location: [facility] Radiology Reading Room Procedure Note Interface, External [...] Report Verified Date/Time: 06/04/2018 19:34:16 Reading Location: [facility] Radiology Reading Room Performing Organization Address City/[facility]/Zipcode Phone Number GE RIS * RHYTHM STRIP - SCAN (06/01/2018 2:40 PM CDT) Only the most recent of 2 results within the time period is included. Narrative Performed At * Magnesium (05/31/2018 4:37 AM CDT) Only the most recent of 4 results within the time period is included. Magnesium 2.4Comment: Specimen slightly 1.6 - 2.6 mg/dL [facility] hemolyzed [facility] Specimen Blood - Arm, Left Performing Organization Address City/[facility]/Zipcode Phone Number [place] [phone] [place] [address] [facility] * Rapid drug screen, urine (05/30/2018 8:31 PM CDT) Barbiturate Screen Negative Negative [facility] Benzodiazepine Screen Positive (A) Negative [facility] Cocaine (Metab.) Screen Negative Negative [facility] Methadone Screen Negative Negative [facility] Opiate Screen Positive (A) Negative [facility] Cannabinoid Screen Negative Negative [facility] Amph/Methamph Screen Negative Negative [facility] Phencyclidine Screen Negative Negative [facility] Oxycodone Screen Negative Negative [facility] Specimen Urine - Urine, Clean Catch Narrative Performed At [facility] Cocaine 300 ng/mL [facility] Mazettgbwkj29 ng/mL Adwcjguaawtnrz655 ng/mL Barbiturate 200 ng/mL Eemhhdvsaiafs94 ng/mL Llvxmh431 ng/mL Methadone 300 ng/mL Amphetamine/ 1000 ng/mL Methamphetamine Oxycodone 300 ng/mL This assay provides an unconfirmed qualitative test result for the clinical management of patients in emergency situations. Chain of custody not maintained. Some pnpu-eqh-sjrwvdv medications, as well as adulterants, may cause inaccurate results. Clinical correlation should be applied. A more comprehensive drug screen or confirmation of a detected drug may be performed upon request. Performing Organization Address City/State/Zipcode Phone Number [facility] [address] [place] [address] [facility] * Urinalysis w/Microscopic (05/30/2018 8:31 PM CDT) Color, UA Light Yellow [facility] Clarity, UA Clear [facility] Specific [place], UA 1.013 1.001 - 1.035 [facility] pH, UA 6.0 5.0 - 8.0 [facility] Protein, UA Negative Negative [facility] Glucose, UA >1000 mg/dL (A) Negative [facility] Ketones, UA Negative Negative [facility] Bilirubin, UA Negative Negative [facility] Blood, UA Negative Negative [facility] Nitrite, UA Negative Negative [facility] Leukocytes, UA Negative Negative [facility] Urobilinogen, UA 0.2 0.2 - 1.0 mg/dL [facility] RBC, UA <1 /HPF [facility] WBC, UA 0 /HPF [facility] Specimen Source Urine, Clean Catch [facility] Specimen Urine - Urine, Clean Catch Performing Organization Address [facility] Phone Number [address] [address] [facility] * Lipid panel (05/30/2018 2:45 AM CDT) Only the most recent of 2 results within the time period is included. Triglycerides 287Comment: Specimen slightly mg/dL [facility] Cholesterol 146Comment: Specimen slightly mg/dL [facility] HDL 32 mg/dL [facility] LDL Calculated 57 mg/dL [facility] Specimen Blood - Arm, Right Narrative Performed At Triglyceride Reference Range: [facility] Low Risk <150 [facility] Ruyquygbef182-313 High Risk 200-499 Very High Risk>=500 Cholesterol Reference Range: Low Risk <200 Mdnsbyfofg524-816 High Risk>240 HDL Cholesterol Reference Range: Low Risk >=60 High Risk <40 LDL Cholesterol Reference Range: Optimal<100 Near Zyikwnr608-447 Oxhqsudtwb961-944 Badd257-985 Very High >=190 Performing Organization Address City/[facility] Phone Number [facility] [address] [place] [address] [facility] * XR spine lumbar complete 4 views [...] MD Report Verified Date/Time:05/29/2018 19:24:24 Reading Location: [facility] C013Y CT Body Reading Room Procedure Note [...] Report Verified Date/Time: 05/29/2018 19:24:24 Reading Location: [facility] C013Y CT Body Reading Room Performing Organization [...] MD Report Verified Date/Time:05/29/2018 19:16:28 Reading Location: [address] Reading Room Procedure Note Interface, External [...] Report Verified Date/Time: 05/29/2018 19:16:28 Reading Location: [address] Reading Room Performing Organization Address City/State/Zipcode [...] MD Report Verified Date/Time:05/29/2018 19:12:04 Reading Location: [facility] C013Y CT Body Reading Room Procedure Note [...] Report Verified Date/Time: 05/29/2018 19:12:04 Reading Location: [facility] C013Y CT Body Reading Room Performing Organization [...] MD Report Verified Date/Time:05/29/2018 17:30:29 Reading Location: [facility] C013 Neuro Reading Room Procedure Note Interface, [...] Report Verified Date/Time: 05/29/2018 17:30:29 Reading Location: [address] Neuro Reading Room Performing Organization Address City/State/Zipcode Phone Number GE RIS * Phosphorus (05/29/2018 4:46 PM CDT) Phosphorus 3.4Comment: Specimen markedly 2.3 - 4.7 mg/dL [facility] hemolyzed [facility] Specimen Blood - Arm, Right Performing Organization Address City/[facility]/Zipcode Phone Number [facility] [address] [place] [address] [facility] * Creatine Kinase (CK), Total and MB (05/29/2018 4:46 PM CDT) Only the most recent of 2 results within the time period is included. Total CK 199 29 - 200 U/L [facility] CK-MB 4.8 0.0 - 6.6 ng/mL [facility] MB Relative Index 2.4 % [facility] Specimen Blood - Arm, Right Narrative Performed At CK-MB Reference Range: [facility] <6.7Normal [facility] 6.7-10.0Borderline >10.0 Abnormal Performing Organization Address City/State/Zipcode Phone Number [facility] [address] [place] [address] [facility] * Comprehensive metabolic panel (05/29/2018 4:46 PM CDT) Protein, Total 7.7Comment: Specimen markedly 6.0 - 8.3 gm/dL [facility] Albumin 4.3Comment: Specimen markedly 3.5 - 5.0 g/dL [facility] Alkaline Phosphatase 71 40 - 150 U/L [facility] Total Bilirubin 0.7Comment: Specimen markedly 0.2 - 1.2 mg/dL [facility] Sodium 132 (L) 136 - 145 meq/L [facility] Potassium 5.2 (H)Comment: Specimen 3.5 - 5.1 meq/L [facility] markedly hemolyzed [facility] Chloride 99 98 - 107 meq/L [facility] CO2 22 22 - 29 meq/L [facility] BUN 13 7 - 21 mg/dL [facility] Creatinine 1.33 (H)Comment: Specimen 0.57 - 1.25 mg/dL [facility] Glucose 261 (H) 70 - 105 mg/dL [facility] Calcium 10.0 8.4 - 10.2 mg/dL [facility] AST 60 (H)Comment: Specimen 5 - 34 U/L [facility] markedly hemolyzed [facility] ALT 39Comment: Specimen markedly 6 - 55 U/L [facility] hemolyzed [facility] EGFR 58Comment: ESTIMATED GFR IS mL/min/1.73 sq m [facility] NOT ACCURATE CREATININE [facility] CLEARANCE IN PREDICTING GLOMERULAR FILTRATION RATE. ESTIMATED GFR IS NOT APPLICABLE FOR DIALYSIS PATIENTS. Specimen Blood - Arm, Right Performing Organization Address City/State/[place] [address] [phone] [place] [address] * Hemoglobin A1c (05/09/2018 1:09 PM CDT) Hemoglobin A1C 8.3 (H) 4.3 - 6.1 % [facility] Specimen Blood - Arm, Right Performing Organization Address [facility] [place] [address] [phone] * MR brain without IV contrast (05/09/2018 12:49 PM CDT) Narrative Performed At FINAL REPORT [facility] MRI brain without contrast INDICATION: Headache, dizziness. [...] MD Report Verified Date/Time:05/09/2018 11:23:03 Reading Location: [address] Neuro Reading Room Procedure Note Interface, [...] Report Verified Date/Time: 05/09/2018 11:23:03 Reading Location: [address] Neuro Reading Room Performing Organization Address City/State/Zipcode Phone Number [facility] * EEG AWAKE AND DROWSY (05/08/2018 2:27 PM CDT) Narrative Performed At Neurophysiology Electroencephalogram Report [facility] DATE OF REPORT: 05/08/18 Date(s) of Study: 05/08/2018 ACC: [id number] Start time: 05/08/2018 at 13:55 Stop time: 05/08/2018 at 14:16 ICD-10: R56.9 CPT Code: 16681 HISTORY: 47 y old male with h/o [...] REPORT: 05/08/18 Date(s) of Study: 05/08/2018 ACC: [id number] Start time: 05/08/2018 at 13:55 Stop time: 05/08/2018 at 14:16 ICD-10: R56.9 CPT Code: 78692 HISTORY: 47 y old male with h/o [...] CDT) BNP 20 0 - 100 pg/mL [facility] Specimen Blood - Arm, Right Performing Organization Address City/State/Zipcode Phone Number [facility] [address] [place] [address] [facility] * XR chest 1 view [...] MD Report Verified Date/Time:05/07/2018 14:53:36 Reading Location: [facility] C013 Consult Reading Room Procedure Note Interface, [...] Report Verified Date/Time: 05/07/2018 14:53:36 Reading Location: [facility] B1 C013W Consult Reading Room Performing Organization Address City/State/Zipcode Phone Number [place] after 10/03/2017 Insurance Payer Benefit Subscriber ID Type Phone Address Plan / Group BLUE CROSS/BLUE SHIELD BCBS ADV xxxxxxxxxxxx [phone] [address] [place] [address] EXCHANGE Advance Directives For more information, please contact: [facility] [address] [place] [id number] Date Inactivated Comments Code Status Date Activated 05/31/2018 2:13 PM Full Code 05/29/2018 8:14 PM This code status was determined by: Patient 05/11/2018 6:00 PM Full Code 05/07/2018 4:35 PM This code status was determined by: Patient 12/27/2016 2:48 PM Full Code 12/25/2016 6:06 AM This code status was determined by: Patient
--- OUTSIDE RECORDS SUMMARY | 2018-10-04 21:35 | XMS REPORT | Continuity of Care Document ---
Author Author [facility] Interface Address Unknown Phone Unavailable Problems Problem Status Onset Date Classification Date Reported Comments Source Wrist pain Active 08/25/2018 Diagnosis 09/11/2018 [facility] Dermatitis due to drug reaction Active 07/23/2018 Diagnosis 09/11/2018 [facility] Acute right otitis media Inactive 07/22/2018 Problem 09/11/2018 [facility] Pain in right shoulder Inactive 07/19/2018 Problem 09/11/2018 [facility] Chronic back pain Active 06/23/2018 Diagnosis [...] [facility] Depression, chronic Inactive 03/26/2018 [facility] Diabetes mellitus, type II Inactive 02/18/2018 Problem 09/11/2018 [facility] CHEST PAIN Active 11/30/2016 [facility] Chest pain Active Problem 05/06/2018 [facility] Seizure-like activity Active Problem 05/06/2018 [facility] Hypertension Resolved Problem 12/04/2016 [facility] PTSD (<span ID="[id number]">Confirmed</span>) Resolved Problem 12/04/2016 [facility] Medications Medication Details Route Status Patient Instructions [...] Doxazosin Mesylate 1 Mg Tablet, Active 04/15/2018 [facility] Glipizide 10 Mg Tablet, 10 Mg Oral Twice A Day Active 04/15/2018 [facility] Linezolid (Zyvox) 600 Mg Tablet, Active 04/15/2018 [facility] Metformin Hcl 1,000 Mg Tablet, 1 Tab Oral Twice A Day Active 04/15/2018 [facility] Metoprolol Tartrate 50 Mg Tablet, 25 Mg Oral Daily Active 04/15/2018 [facility] JANUVIA 100 MG ORAL TABLET 1 tab [...] 12/31/16 9:00:00 CDT No Longer Active 12/02/2016 [facility] atorvastatin 80 mg oral tablet 80 mg=1 tab, PO, Bedtime, # 30 tab, 0 Refill(s) Active 12/01/2016 [facility] Nitroglycerin 0.4 MG Sublingual Tablet 0.4 mg, 1 tab, Route: SL, Drug form: TAB, PRN, Dosing Weight 112.6, kg, PRN Chest Pain, Start date: 12/01/16 16:53:00 CDT, Duration: 30 day, Stop date: 12/31/16 16:52:00 CDTNotes: (Same as:Nitroquick, Nitrostat) "Do Not Crush" Sublingual tablet Inactive 12/01/2016 [facility] Tylenol 650 mg, 2 tab, Route: PO, Drug form: TAB, Q6H, Dosing Weight 112.6, kg, PRN Pain Score 1-3, Start date: 12/01/16 16:53:00 CDT, Duration: 30 day, Stop date: 12/31/16 16:52:00 CDTNotes: Do not exceed 4 gm/day. (Same as: Tylenol) Inactive 12/01/2016 [facility] pneumococcal capsular polysaccharide type 1 vaccine / pneumococcal capsular polysaccharide type 10A vaccine / pneumococcal capsular polysaccharide type 11A vaccine / pneumococcal capsular polysaccharide type 12F vaccine / pneumococcal capsular polysacchar 0.5 mL, Route: IM, Drug Form: INJ, Daily, Start date: 12/01/16 9:00:00 CDT, Duration: 1 doses or times, Stop date: 12/01/16 9:00:00 CDTNotes: (Same as: Pneumovax 23) Refrigerate Inactive 12/01/2016 [facility] Plavix 75 mg, 1 tab, Route: PO, Drug form: TAB, Daily, Dosing Weight 112.6, kg, Start date: 12/01/16 9:00:00 CDT, Duration: 30 day, Stop date: 12/30/16 9:00:00 CDTNotes: (Same As: Plavix) Inactive 12/01/2016 [facility] metoprolol extended release 25 mg, 1 tab, Route: PO, Drug form: ERTAB, Daily, Start date: 12/01/16 9:00:00 CDT, Duration: 30 day, Stop date: 12/30/16 9:00:00 CDTNotes: (Same as: Toprol XL) Do Not Crush Inactive 12/01/2016 [facility] Lisinopril 10 mg, 1 tab, Route: PO, Drug form: TAB, Daily, Dosing Weight 112.6, kg, Start date: 12/01/16 9:00:00 CDT, Duration: 30 day, Stop date: 12/30/16 9:00:00 CDTNotes: (Same as: Prinivil, Zestril) Inactive 12/01/2016 [facility] Aspirin 81 MG Chewable Tablet 81 mg, 1 tab, Route: PO, Drug form: CHEWTAB, Daily, Dosing Weight 112.6, kg, Start date: 12/01/16 9:00:00 CDT, Duration: 30 day, Stop date: 12/30/16 9:00:00 CDTNotes: Take with food. Inactive 12/01/2016 [facility] atorvastatin 80 mg, 1 tab, Route: PO, Drug form: TAB, Bedtime, Dosing Weight 112.6, kg, Start date: 11/30/16 21:00:00 CDT, Duration: 30 day, Stop date: 12/29/16 21:00:00 CDTNotes: Same as Lipitor No Longer Active 12/01/2016 [facility] Nortriptyline 75 mg, 3 cap, Route: PO, Drug form: CAP, Daily, Dosing Weight 112.6, kg, Start date: 11/30/16 21:00:00 CDT, Duration: 30 day, Stop date: 12/30/16 9:00:00 CDTNotes: (Same as:Pamelor, Aventyl) No Longer Active 12/01/2016 [facility] Tylenol 650 mg, 20.3 mL, Route: PO, Drug form: LIQ, ONCE, Dosing Weight 112.6, kg, Start date: 11/30/16 19:04:00 CDT, Stop date: 11/30/16 19:04:00 CDTNotes: Max [id number]/day (4 gm/day). (Same as: Tylenol) Inactive 12/01/2016 [facility] Lexapro 10 mg, 1 tab, Route: PO, Drug form: TAB, BID, Dosing Weight 112.6, kg, Start date: 11/30/16 17:00:00 CDT, Duration: 30 day, Stop date: 12/30/16 9:00:00 CDTNotes: (Same as: Lexapro) No Longer Active 11/30/2016 [facility] Nitroglycerin 100 mg, 250 mL, Rate: Titrate, Start Dose: 0.25 microgram/kg/min, Titration: 0.2 microgram/kg/min every 5 minutes, Goal(s): Chest pain and SBP between 100 - 150 mmHg, Max Dose: 3 microgram/kg/min, Route: IV, Dosing Weight 112.6 kg, Total Volume: 250,...Notes: (Same as:Tridil) Final conc=0.4 mg/ml. Premix bottle. No Longer Active 11/30/2016 [facility] Morphine 4 mg, 1 mL, Route: IVP, Drug form: INJ, Q6H, Dosing Weight 112.6, kg, PRN Pain Score 7-10, Start date: 11/30/16 15:10:00 CDT, Duration: 30 day, Stop date: 12/30/16 15:09:00 CDTNotes: (Same as:MORPhine Sulfate) No Longer Active 11/30/2016 [facility] Plavix 300 mg, 1 tab, Route: PO, Drug form: TAB, ONCE, Dosing Weight 112.6, kg, Start date: 11/30/16 14:31:00 CDT, Duration: 1 doses or times, Stop date: 11/30/16 14:31:00 CDTNotes: ( Same as: Plavix) Inactive 11/30/2016 [facility] Aspirin 325 mg, Route: PO, ONCE, Dosing Weight 112.6, kg, Start date: 11/30/16 14:22:00 CDT, Stop date: 11/30/16 14:22:00 CDT Inactive 11/30/2016 [facility] Plavix 300 mg, Route: PO, Drug form: TAB, ONCE, Dosing Weight 112.6, kg, Start date: 11/30/16 14:21:00 CDT, Duration: 1 doses or times, Stop date: 11/30/16 14:21:00 CDT Inactive 11/30/2016 [facility] heparin additive 25,000 unit [12 unit/kg/hr] + Premix Diluent Dextrose 5% 500 mL 500 mL, Rate: 21.98 ml/hr, Infuse over: 22.7 hr, Route: IV, Dosing Weight 91.6 kg, Total Volume: 500 mL, Start date: 11/30/16 13:59:00 CDT, Duration: 30 day, Stop date: 12/30/16 13:58:00 CDT No Longer Active 11/30/2016 [facility] Heparin 60 unit/kg Bolus (Heparin Dosing Weight) Route: IVP, PRN, 4,000 unit, 4 mL, Drug form: INJ, PRN, Heparin Protocol, Start date: 11/30/16 13:59:00 CDT Stop date: 12/30/16 13:58:00 CDT, 30 day No Longer Active 11/30/2016 [facility] Heparin 30 unit/kg Bolus (Heparin Dosing Weight) Route: IVP, PRN, 2,700 unit, 2.7 mL, Drug form: INJ, PRN, Heparin Protocol, Start date: 11/30/16 13:59:00 CDT Stop date: 12/30/16 13:58:00 CDT, 30 day No Longer Active 11/30/2016 [facility] Heparin - one time bolus for ACS 4,000 unit, 4 mL, Route: IVP, Drug form: INJ, ONCE, Dosing Weight 112.6, kg, Priority: STAT, Start date: 11/30/16 13:59:00 CDT, Stop date: 11/30/16 13:59:00 CDT Inactive 11/30/2016 [facility] Aspirin 81 MG Chewable Tablet 81 mg=1 tab, PO, Daily, tab, 0 Refill(s) Active 11/30/2016 [facility] Escitalopram 10 MG Oral Tablet [Lexapro] 10 mg=1 tab, PO, BID, 0 Refill(s) Active 11/30/2016 [facility] nortriptyline 75 mg oral capsule 75 mg=1 cap, PO, Daily, # 90 cap, 0 Refill(s) Active 11/30/2016 [facility] lisinopril 10 mg oral tablet 10 mg=1 tab, PO, Daily, # 30 tab, 0 Refill(s) Active 11/30/2016 [facility] metoprolol extended release 25 mg, PO, Daily, 0 Refill(s) Active 11/30/2016 [facility] Aspirin 81 Mg Tab.chew Daily Active [facility] Atorvastatin Calcium 80 Mg Tablet Daily Active [facility] Clopidogrel Bisulfate (Clopidogrel) 75 Mg Tablet Daily Active [facility] Diazepam 10 Mg Tablet Daily as needed for Anxiety Active [facility] Doxazosin Mesylate 1 Mg Tablet Twice A Day Active [facility] Doxepin Hcl 25 Mg Capsule Bedtime Active [facility] Gabapentin 300 Mg Capsule Three Times A Day Active am, noon and bedtime [facility] Glipizide 10 Mg Tablet Twice A Day Active [facility] Lisinopril 10 Mg Tablet Daily Active [facility] Metformin Hcl 500 Mg Tablet Twice A Day Active [facility] Metoprolol Succinate 25 Mg Tab.er.24h Daily Active [facility] Metoprolol Tartrate 50 Mg Tablet Twice A Day Active [facility] Nitroglycerin 0.4 Mg Tab.subl Every 5 Minutes as needed for Chest Pain Active X3 DOSES [facility] Nortriptyline Hcl 25 Mg Capsule Bedtime Active [facility] Paroxetine Hcl 30 Mg Tablet Before Breakfast Active [facility] Sitagliptin Phosphate (Januvia) 50 Mg Tablet Daily Active [facility] Tiagabine Hcl (Gabitril) 4 Mg Tablet Twice A Day Active [facility] Trazodone Hcl 300 Mg Tablet Daily Active [facility] Acetaminophen With Codeine (Acetaminophen-Cod #4 Tablet) 1 Each Tablet Three Times A Day Active [facility] Acetaminophen/Codeine Phosphate (Tylenol # 3*) 1 Ea Tab Every 6 Hours Active [facility] Atorvastatin Calcium 40 Mg Tablet Bedtime Active [facility] Hydrocodone Bit/Acetaminophen (Hydrocodon-Acetaminophn 10-325) 1 Each Tablet Every 6 Hours Active [facility] Metoprolol Tartrate (Lopressor) 25 Mg Tab Bedtime Active Metoprolol ER 25mg PO QHS [facility] Nortriptyline Hcl 50 Mg Capsule Bedtime Active [facility] Prazosin Hcl 2 Mg Capsule Bedtime Active [facility] Trazodone Hcl 100 Mg Tablet Bedtime Active [facility] DIAZEPAM TAKE 1/2 TO 1 TABLET BY [...] Penicillin Severe Allergy to Substance Active 04/14/2018 [facility] Methylprednisolone Unknown Allergy to Substance Active 04/14/2018 [facility] Ketorolac Unknown Allergy to Substance Active 04/14/2018 [facility] TYLENOL WITH CODEINE #3 drug allergy Hives 07/14/2018 [facility] CEFDINIR drug allergy - Generalized itching that resolved with Benadryl. 07/23/2018 [facility] penicillins Assertion Drug allergy Active [facility] Toradol Assertion Drug allergy Active [facility] Immunizations Immunization Date Given Site Status Last Updated Comments Source pneumococcal 23-valent vaccine 12/01/[address] [facility] Results Order Name Results Value Reference Range Date Interpretation Comments Source blood glucose, fasting 177 mg/dL 09/09/2018 [facility] blood glucose, random 202 mg/dL 08/25/2018 [facility] blood glucose, random 202 mg/dL 08/25/2018 [facility] benzodiazepine screen, urine Positive Flnhhs=008 07/23/2018 [facility] amphetamine screen, urine Negative Epzchh=[id number] 07/23/2018 [facility] cannabinoid screen, urine Negative Cutoff=50 07/23/2018 [facility] phencyclidine screen, urine Negative Cutoff=25 07/23/2018 [facility] cocaine, urine Negative Hmjnfj=940 07/23/2018 [facility] cocaine, urine Negative Yulzdy=682 07/23/2018 [facility] opiates, urine, semiquantitative See Final Results Mmostj=290 07/23/2018 [facility] barbiturates screen, urine Negative Lvtdjv=587 07/23/2018 [facility] opiates, urine, semiquantitative See Final Results Lgydxu=180 07/23/2018 [facility] blood glucose, random 233 mg/dL 07/19/2018 [facility] hemoglobin A1C, blood, as % of total hemoglobin 9.3 % 07/14/2018 [facility] hemoglobin A1C, blood, as % of total hemoglobin 9.3 % 07/14/2018 [facility] blood glucose, random 244 mg/dL 06/15/2018 [facility] Serum or plasma creatine kinase MB measurement (mass/volume) Serum or plasma creatine kinase MB measurement (mass/volume) 0.40 0 - 5.0 05/06/2018 [facility] Serum or plasma creatine kinase measurement (enzymatic activity/volume) Serum or plasma creatine kinase measurement (enzymatic activity/volume) 58 30 - 200 05/06/2018 [facility] Troponin I measurement by highly sensitive enzyme immunoassay Troponin I measurement by highly sensitive enzyme immunoassay 0.003 0 - 0.300 05/06/2018 [facility] Automated blood basophil count (count/volume) Automated blood basophil count (count/volume) 0.0 0.0 - 0.1 05/06/2018 [facility] Automated blood basophil count as percentage of total leukocytes Automated blood basophil count as percentage of total leukocytes 0.3 0.0 - 1.0 05/06/2018 [facility] Automated blood eosinophil count Automated blood eosinophil count 0.1 0.0 - 0.4 05/06/2018 [facility] Automated blood eosinophil count as percentage of total leukocytes Automated blood eosinophil count as percentage of total leukocytes 0.7 0.0 - 6.0 05/06/2018 [facility] Automated blood hematocrit (volume fraction) Automated blood hematocrit (volume fraction) 33.9 38.2 - 49.6 05/06/2018 [facility] Automated blood lymphocyte count as percentage ot total leukocytes Automated blood lymphocyte count as percentage ot total leukocytes 20.4 18.0 - 39.1 05/06/2018 [facility] Automated blood monocyte count as percentage of total leukocytes Automated blood monocyte count as percentage of total leukocytes 6.0 4.4 - 11.3 05/06/2018 [facility] Automated blood neutrophil count Automated blood neutrophil count 5.0 2.1 - 6.9 05/06/2018 [facility] Automated blood platelet count (count/volume) Automated blood platelet count (count/volume) 154 140 - 360 05/06/2018 [facility] Automated blood segmented neutrophil count as percentage of total leukocytes Automated blood segmented neutrophil count as percentage of total leukocytes 72.2 38.7 - 80.0 05/06/2018 [facility] Automated erythrocyte mean corpuscular hemoglobin (mass per erythrocyte) Automated erythrocyte mean corpuscular hemoglobin (mass per erythrocyte) 32.1 28 - 32 05/06/2018 [facility] Automated erythrocyte mean corpuscular hemoglobin concentration measurement (mass/volume) Automated erythrocyte mean corpuscular hemoglobin concentration measurement (mass/volume) 34.5 31 - 35 05/06/2018 [facility] Automated erythrocyte mean corpuscular volume Automated erythrocyte mean corpuscular volume 92.9 81 - 99 05/06/2018 [facility] Blood erythrocytes automated count (number/volume) Blood erythrocytes automated count (number/volume) 3.65 4.3 - 5.7 05/06/2018 [facility] Blood hemoglobin measurement (moles/volume) Blood hemoglobin measurement (moles/volume) 11.7 14.0 - 18.0 05/06/2018 [facility] Blood leukocytes automated count (number/volume) Blood leukocytes automated count (number/volume) 6.86 4.8 - 10.8 05/06/2018 [facility] Blood lymphocytes count (number/volume) Blood lymphocytes count (number/volume) 1.4 1.0 - 3.2 05/06/2018 [facility] Blood monocytes automated count (number/volume) Blood monocytes automated count (number/volume) 0.4 0.2 - 0.8 05/06/2018 [facility] Estimated glomerular filtration rate (GFR) determination Estimated glomerular filtration rate (GFR) determination null 60 05/06/2018 [facility] Glucose measurement Glucose measurement 251 74 - 118 05/06/2018 [facility] Plasma globulin measurement (mass/volume) Plasma globulin measurement (mass/volume) 3.0 2.3 - 3.5 05/06/2018 [facility] Serum or plasma alanine aminotransferase measurement (enzymatic activity/volume) Serum or plasma alanine aminotransferase measurement (enzymatic activity/volume) 36 0 - 55 05/06/2018 [facility] Serum or plasma albumin measurement (mass/volume) Serum or plasma albumin measurement (mass/volume) 3.6 3.5 - 5.0 05/06/2018 [facility] Serum or plasma albumin/globulin mass ratio Serum or plasma albumin/globulin mass ratio 1.2 0.8 - 2.0 05/06/2018 [facility] Serum or plasma alkaline phosphatase measurement (enzymatic activity/volume) Serum or plasma alkaline phosphatase measurement (enzymatic activity/volume) 72 40 - 150 05/06/2018 [facility] Serum or plasma anion gap Serum or plasma anion gap 18.0 8 - 16 05/06/2018 [facility] Serum or plasma calcium measurement (mass/volume) Serum or plasma calcium measurement (mass/volume) 9.5 8.4 - 10.2 05/06/2018 [facility] Serum or plasma carbon dioxide, total measurement (moles/volume) Serum or plasma carbon dioxide, total measurement (moles/volume) 21 22 - 29 05/06/2018 [facility] Serum or plasma chloride measurement (moles/volume) Serum or plasma chloride measurement (moles/volume) 100 98 - 107 05/06/2018 [facility] Serum or plasma creatinine measurement (mass/volume) Serum or plasma creatinine measurement (mass/volume) 1.16 0.72 - 1.25 05/06/2018 [facility] Serum or plasma potassium measurement (moles/volume) Serum or plasma potassium measurement (moles/volume) 4.0 3.5 - 5.1 05/06/2018 [facility] Serum or plasma protein measurement (mass/volume) Serum or plasma protein measurement (mass/volume) 6.6 6.5 - 8.1 05/06/2018 [facility] Serum or plasma sodium measurement (moles/volume) Serum or plasma sodium measurement (moles/volume) 135 136 - 145 05/06/2018 [facility] Serum or plasma total bilirubin measurement (mass/volume) Serum or plasma total bilirubin measurement (mass/volume) 0.6 0.2 - 1.2 05/06/2018 [facility] Serum or plasma urea nitrogen measurement (mass/volume) Serum or plasma urea nitrogen measurement (mass/volume) 10 7 - 26 05/06/2018 [facility] Serum or plasma urea nitrogen/creatinine mass ratio Serum or plasma urea nitrogen/creatinine mass ratio 9 6 - 25 05/06/2018 [facility] Red Cell Distribution Width 13.2 11.7 - 14.4 05/06/2018 [facility] IM GRANULOCYTES % 0.4 0.0 - 1.0 05/06/2018 [facility] Absolute Immature Granulocyte (auto 0.03 0 - 0.1 05/06/2018 [facility] Aspartate Amino Transf (AST/SGOT) 27 5 - 34 05/06/2018 [facility] Automated urine sediment leukocyte count by microscopy (number/high power field) Automated urine sediment leukocyte count by microscopy (number/high power field) null 0 - 5 05/06/2018 [facility] Bacteria detection in urine sediment by light microscopy Bacteria detection in urine sediment by light microscopy NONE NONE 05/06/2018 [facility] Epithelial cells detection in urine sediment by light microscopy Epithelial cells detection in urine sediment by light microscopy NONE NONE 05/06/2018 [facility] Erythrocytes detection in urine sediment by light microscopy Erythrocytes detection in urine sediment by light microscopy null 0 - 5 05/06/2018 [facility] Mucus detection in urine sediment by light microscopy Mucus detection in urine sediment by light microscopy FEW RARE 05/06/2018 [facility] Specific gravity of Urine by Test strip Specific gravity of Urine by Test strip 1.005 1.010 - 1.025 05/06/2018 [facility] Urine clarity Urine clarity CLEAR CLEAR 05/06/2018 [facility] Urine color determination Urine color determination YELLOW YELLOW 05/06/2018 [facility] Urine erythrocytes detection Urine erythrocytes detection NEGATIVE NEGATIVE 05/06/2018 [facility] Urine glucose detection Urine glucose detection 3+ NEGATIVE 05/06/2018 [facility] Urine ketones detection by automated test strip Urine ketones detection by automated test strip NEGATIVE NEGATIVE 05/06/2018 [facility] Urine leukocyte esterase detection by dipstick Urine leukocyte esterase detection by dipstick NEGATIVE NEGATIVE 05/06/2018 [facility] Urine nitrite detection Urine nitrite detection NEGATIVE NEGATIVE 05/06/2018 [facility] Urine pH measurement by automated test strip Urine pH measurement by automated test strip 6 5 - 7 05/06/2018 [facility] Urine protein measurement by test strip (mass/volume) Urine protein measurement by test strip (mass/volume) NEGATIVE NEGATIVE 05/06/2018 [facility] Urine total bilirubin measurement (mass/volume) Urine total bilirubin measurement (mass/volume) NEGATIVE NEGATIVE 05/06/2018 [facility] Urine urobilinogen measurement by test strip (mass/volume) Urine urobilinogen measurement by test strip (mass/volume) 0.2 0.2 - 1 05/06/2018 [facility] Capillary blood glucose measurement by glucometer (mass/volume) Capillary blood glucose measurement by glucometer (mass/volume) 226 70 - 120 04/16/2018 [facility] Capillary blood glucose measurement by glucometer (mass/volume) Capillary blood glucose measurement by glucometer (mass/volume) 226 70 - 120 04/16/2018 [facility] Automated blood basophil count (count/volume) Automated blood basophil count (count/volume) 0.0 0.0 - 0.1 04/16/2018 [facility] Automated blood basophil count as percentage of total leukocytes Automated blood basophil count as percentage of total leukocytes 0.5 0.0 - 1.0 04/16/2018 [facility] Automated blood eosinophil count Automated blood eosinophil count 0.1 0.0 - 0.4 04/16/2018 [facility] Automated blood eosinophil count as percentage of total leukocytes Automated blood eosinophil count as percentage of total leukocytes 1.5 0.0 - 6.0 04/16/2018 [facility] Automated blood hematocrit (volume fraction) Automated blood hematocrit (volume fraction) 37.5 38.2 - 49.6 04/16/2018 [facility] Automated blood lymphocyte count as percentage ot total leukocytes Automated blood lymphocyte count as percentage ot total leukocytes 33.5 18.0 - 39.1 04/16/2018 [facility] Automated blood monocyte count as percentage of total leukocytes Automated blood monocyte count as percentage of total leukocytes 6.9 4.4 - 11.3 04/16/2018 [facility] Automated blood neutrophil count Automated blood neutrophil count 3.4 2.1 - 6.9 04/16/2018 [facility] Automated blood platelet count (count/volume) Automated blood platelet count (count/volume) 182 140 - 360 04/16/2018 [facility] Automated blood segmented neutrophil count as percentage of total leukocytes Automated blood segmented neutrophil count as percentage of total leukocytes 57.3 38.7 - 80.0 04/16/2018 [facility] Automated erythrocyte mean corpuscular hemoglobin (mass per erythrocyte) Automated erythrocyte mean corpuscular hemoglobin (mass per erythrocyte) 32.1 28 - 32 04/16/2018 [facility] Automated erythrocyte mean corpuscular hemoglobin concentration measurement (mass/volume) Automated erythrocyte mean corpuscular hemoglobin concentration measurement (mass/volume) 34.1 31 - 35 04/16/2018 [facility] Automated erythrocyte mean corpuscular volume Automated erythrocyte mean corpuscular volume 94.0 81 - 99 04/16/2018 [facility] Blood erythrocytes automated count (number/volume) Blood erythrocytes automated count (number/volume) 3.99 4.3 - 5.7 04/16/2018 [facility] Blood hemoglobin measurement (moles/volume) Blood hemoglobin measurement (moles/volume) 12.8 14.0 - 18.0 04/16/2018 [facility] Blood leukocytes automated count (number/volume) Blood leukocytes automated count (number/volume) 5.94 4.8 - 10.8 04/16/2018 [facility] Blood lymphocytes count (number/volume) Blood lymphocytes count (number/volume) 2.0 1.0 - 3.2 04/16/2018 [facility] Blood monocytes automated count (number/volume) Blood monocytes automated count (number/volume) 0.4 0.2 - 0.8 04/16/2018 [facility] [facility] Estimated glomerular filtration rate (GFR) determination Estimated glomerular filtration rate (GFR) determination null 60 04/16/2018 [facility] Glucose measurement Glucose measurement 205 74 - 118 04/16/2018 [facility] Phosphorus measurement Phosphorus measurement 4.7 2.3 - 4.7 04/16/2018 [facility] Phosphorus measurement Phosphorus measurement 4.7 2.3 - 4.7 04/16/2018 [facility] Plasma globulin measurement (mass/volume) Plasma globulin measurement (mass/volume) 3.1 2.3 - 3.5 04/16/2018 [facility] Serum or plasma alanine aminotransferase measurement (enzymatic activity/volume) Serum or plasma alanine aminotransferase measurement (enzymatic activity/volume) 42 0 - 55 04/16/2018 [facility] Serum or plasma albumin measurement (mass/volume) Serum or plasma albumin measurement (mass/volume) 3.5 3.5 - 5.0 04/16/2018 [facility] Serum or plasma albumin/globulin mass ratio Serum or plasma albumin/globulin mass ratio 1.1 0.8 - 2.0 04/16/2018 [facility] Serum or plasma alkaline phosphatase measurement (enzymatic activity/volume) Serum or plasma alkaline phosphatase measurement (enzymatic activity/volume) 52 40 - 150 04/16/2018 [facility] Serum or plasma anion gap Serum or plasma anion gap 15.4 8 - 16 04/16/2018 [facility] Serum or plasma calcium measurement (mass/volume) Serum or plasma calcium measurement (mass/volume) 9.7 8.4 - 10.2 04/16/2018 [facility] Serum or plasma carbon dioxide, total measurement (moles/volume) Serum or plasma carbon dioxide, total measurement (moles/volume) 25 22 - 29 04/16/2018 [facility] Serum or plasma chloride measurement (moles/volume) Serum or plasma chloride measurement (moles/volume) 101 98 - 107 04/16/2018 [facility] Serum or plasma creatinine measurement (mass/volume) Serum or plasma creatinine measurement (mass/volume) 1.08 0.72 - 1.25 04/16/2018 [facility] Serum or plasma magnesium measurement (mass/volume) Serum or plasma magnesium measurement (mass/volume) 2.2 1.3 - 2.1 04/16/2018 [facility] Serum or plasma magnesium measurement (mass/volume) Serum or plasma magnesium measurement (mass/volume) 2.2 1.3 - 2.1 04/16/2018 [facility] Serum or plasma potassium measurement (moles/volume) Serum or plasma potassium measurement (moles/volume) 4.4 3.5 - 5.1 04/16/2018 [facility] Serum or plasma protein measurement (mass/volume) Serum or plasma protein measurement (mass/volume) 6.6 6.5 - 8.1 04/16/2018 [facility] Serum or plasma sodium measurement (moles/volume) Serum or plasma sodium measurement (moles/volume) 137 136 - 145 04/16/2018 [facility] Serum or plasma thyrotropin measurement by detection limit <=0.005 miu/l (units/volume) Serum or plasma thyrotropin measurement by detection limit <=0.005 miu/l (units/volume) 0.423 0.350 - 4.940 04/16/2018 [facility] Serum or plasma thyrotropin measurement by detection limit <=0.005 miu/l (units/volume) Serum or plasma thyrotropin measurement by detection limit <=0.005 miu/l (units/volume) 0.423 0.350 - 4.940 04/16/2018 [facility] Serum or plasma total bilirubin measurement (mass/volume) Serum or plasma total bilirubin measurement (mass/volume) 0.4 0.2 - 1.2 04/16/2018 [facility] Serum or plasma urea nitrogen measurement (mass/volume) Serum or plasma urea nitrogen measurement (mass/volume) 13 7 - 26 04/16/2018 [facility] Serum or plasma urea nitrogen/creatinine mass ratio Serum or plasma urea nitrogen/creatinine mass ratio 12 6 - 25 04/16/2018 [facility] Hemoglobin A1c Percent 7.0 4.0 - 7.0 04/16/2018 [facility] Red Cell Distribution Width 13.5 11.7 - 14.4 04/16/2018 [facility] IM GRANULOCYTES % 0.3 0.0 - 1.0 04/16/2018 [facility] Absolute Immature Granulocyte (auto 0.02 0 - 0.1 04/16/2018 [facility] Hemoglobin A1c Percent 7.0 4.0 - 7.0 04/16/2018 [facility] Aspartate Amino Transf (AST/SGOT) 22 5 - 34 04/16/2018 [facility] sodium, serum 134 mmol/L 134 - 144 [...] measurement (mass/volume) 0.40 0 - 5.0 04/15/2018 [facility] Serum or plasma creatine kinase measurement (enzymatic activity/volume) Serum or plasma creatine kinase measurement (enzymatic activity/volume) 35 30 - 200 04/15/2018 [facility] Troponin I measurement by highly sensitive enzyme immunoassay Troponin I measurement by highly sensitive enzyme immunoassay null 0 - 0.300 04/15/2018 [facility] Automated urine sediment leukocyte count by microscopy (number/high power field) Automated urine sediment leukocyte count by microscopy (number/high power field) NONE 0 - 5 04/14/2018 [facility] Bacteria detection in urine sediment by light microscopy Bacteria detection in urine sediment by light microscopy NONE NONE 04/14/2018 [facility] Barbiturates screen, urine Barbiturates screen, urine NEGATIVE NEGATIVE 04/14/2018 [facility] Barbiturates screen, urine Barbiturates screen, urine NEGATIVE NEGATIVE 04/14/2018 [facility] Epithelial cells detection in urine sediment by light microscopy Epithelial cells detection in urine sediment by light microscopy NONE NONE 04/14/2018 [facility] Erythrocytes detection in urine sediment by light microscopy Erythrocytes detection in urine sediment by light microscopy NONE 0 - 5 04/14/2018 [facility] Specific gravity of Urine by Test strip Specific gravity of Urine by Test strip 1.005 1.010 - 1.025 04/14/2018 [facility] Urine amphetamines detection by screen method > 1000 ng/mL Urine amphetamines detection by screen method > 1000 ng/mL NEGATIVE NEGATIVE 04/14/2018 [facility] Urine amphetamines detection by screen method > 1000 ng/mL Urine amphetamines detection by screen method > 1000 ng/mL NEGATIVE NEGATIVE 04/14/2018 [facility] Urine benzodiazepines detection by screening method Urine benzodiazepines detection by screening method POSITIVE NEGATIVE 04/14/2018 [facility] Urine benzodiazepines detection by screening method Urine benzodiazepines detection by screening method POSITIVE NEGATIVE 04/14/2018 [facility] Urine cannabinoids detection by screening method Urine cannabinoids detection by screening method NEGATIVE NEGATIVE 04/14/2018 [facility] Urine cannabinoids detection by screening method Urine cannabinoids detection by screening method NEGATIVE NEGATIVE 04/14/2018 [facility] Urine clarity Urine clarity CLEAR CLEAR 04/14/2018 [facility] Urine cocaine measurement (mass/volume) Urine cocaine measurement (mass/volume) NEGATIVE NEGATIVE 04/14/2018 [facility] Urine cocaine measurement (mass/volume) Urine cocaine measurement (mass/volume) NEGATIVE NEGATIVE 04/14/2018 [facility] Urine color determination Urine color determination YELLOW YELLOW 04/14/2018 [facility] Urine erythrocytes detection Urine erythrocytes detection NEGATIVE NEGATIVE 04/14/2018 [facility] Urine glucose detection Urine glucose detection 3+ NEGATIVE 04/14/2018 [facility] Urine ketones detection by automated test strip Urine ketones detection by automated test strip NEGATIVE NEGATIVE 04/14/2018 [facility] Urine leukocyte esterase detection by dipstick Urine leukocyte esterase detection by dipstick NEGATIVE NEGATIVE 04/14/2018 [facility] Urine nitrite detection Urine nitrite detection NEGATIVE NEGATIVE 04/14/2018 [facility] Urine opiates screening test Urine opiates screening test POSITIVE NEGATIVE 04/14/2018 [facility] Urine opiates screening test Urine opiates screening test POSITIVE NEGATIVE 04/14/2018 [facility] Urine pH measurement by automated test strip Urine pH measurement by automated test strip 5 5 - 7 04/14/2018 [facility] Urine phencyclidine detection by screening method Urine phencyclidine detection by screening method NEGATIVE NEGATIVE 04/14/2018 [facility] Urine phencyclidine detection by screening method Urine phencyclidine detection by screening method NEGATIVE NEGATIVE 04/14/2018 [facility] Urine protein measurement by test strip (mass/volume) Urine protein measurement by test strip (mass/volume) NEGATIVE NEGATIVE 04/14/2018 [facility] Urine total bilirubin measurement (mass/volume) Urine total bilirubin measurement (mass/volume) NEGATIVE NEGATIVE 04/14/2018 [facility] Urine urobilinogen measurement by test strip (mass/volume) Urine urobilinogen measurement by test strip (mass/volume) 0.2 0.2 - 1 04/14/2018 [facility] Urine Methamphetamines Screen NEGATIVE NEGATIVE 04/14/2018 [facility] Urine Methamphetamines Screen NEGATIVE NEGATIVE 04/14/2018 [facility] Serum or plasma valproate measurement (mass/volume) Serum or plasma valproate measurement (mass/volume) 2 50 - 100 04/14/2018 [facility] Serum or plasma valproate measurement (mass/volume) Serum or plasma valproate measurement (mass/volume) 2 50 - 100 04/14/2018 [facility] Lactic Acid Level 47.2 4.5 - 19.8 04/14/2018 [facility] B-Type Natriuretic Peptide 10.2 0 - 100 04/14/2018 [facility] Lactic Acid Level 47.2 4.5 - 19.8 04/14/2018 [facility] B-Type Natriuretic Peptide 10.2 0 - 100 04/14/2018 [facility] 12 LEAD EKG 12 LEAD EKG FOR [facility] Test Date:2017-05-24 Pat Name: DAVID SAMUELS Department: : Gender: MTechnician: [id number] :1970 Requested By: Order Number:Reading MD: Nader Conrad M.D. Measurements IntervalsAxis Rate: 61 P:-10 CA: 180QRS:38 QRSD: 115T:30 QT: 404 QTc:409 Interpretive Statements SINUS RHYTHM INCOMPLETE RIGHT BUNDLE BRANCH BLOCK Electronically Signed On 05-25-17 05:56:28 CDT by Nader Conrad M.D. 05/25/2017 [facility] TROPONIN I POC Troponin POC 0.00 ng/mL 0 - 0.08 05/25/2017 [facility] BMP POC CO2 POC 29 mmol/L 21 - 32 05/25/2017 [facility] POC Chloride POC 100 mmol/L 98 - 107 05/25/2017 [facility] POC Potassium POC 5.0 mmol/L 3.5 - 5.1 05/25/2017 [facility] POC Sodium POC 137 mmol/L 136 - 145 05/25/2017 [facility] POC Glucose POC 138 mg/dL 74 - 106 05/25/2017 [facility] POC Urea Nitrogen POC 20 mg/dL 7 - 18 05/25/2017 [facility] POC Creatinine POC 1.4 mg/dL 0.6 - 1.3 05/25/2017 [facility] POC Calcium Ionized POC 1.22 mmol/L 1.15 - 1.29 05/25/2017 [facility] POC Hemoglobin POC 15.6 g/dL 14 - 18 05/25/2017 [facility] POC Hematocrit POC 46.0 % 40 - 54 05/25/2017 [facility] POC GFR, Estimated 55 mL/min/1.73 m2 05/25/2017 [facility] POC GFR, Estim, Afr-Am >60 mL/min/1.73 m2 05/25/2017 [facility] POC Lab Interpretation Abnormal 05/25/2017 [facility] POC CO2 POC 29 mmol/L 21 - 32 05/24/2017 [facility] POC Chloride POC 100 mmol/L 98 - 107 05/24/2017 [facility] POC Potassium POC 5.0 mmol/L 3.5 - 5.1 05/24/2017 [facility] POC Sodium POC 137 mmol/L 136 - 145 05/24/2017 [facility] POC Glucose POC 138 mg/dL 74 - 106 05/24/2017 [facility] POC Urea Nitrogen POC 20 mg/dL 7 - 18 05/24/2017 [facility] POC Creatinine POC 1.4 mg/dL 0.6 - 1.3 05/24/2017 [facility] POC Calcium Ionized POC 1.22 mmol/L 1.15 - 1.29 05/24/2017 [facility] POC Hemoglobin POC 15.6 g/dL 14 - 18 05/24/2017 [facility] POC Hematocrit POC 46.0 % 40 - 54 05/24/2017 [facility] POC GFR, Estimated 55 mL/min/1.73 m2 05/24/2017 [facility] POC GFR, Estim, Afr-Am >60 mL/min/1.73 m2 05/24/2017 [facility] BMP POC Lab Interpretation Abnormal 05/24/2017 [facility] TROPONIN I POC Troponin POC 0.00 ng/mL 0 - 0.08 05/24/2017 [facility] 12 LEAD EKG 12 LEAD EKG FOR P [facility] Test Date:2017-05-24 Pat Name: DAVID SAMUELS Department: : Gender: MTechnician: [id number] :1970 Requested By: Order Number:Reading MD: Nader Conrad M.D. Measurements IntervalsAxis Rate: 61 P:-10 CA: 180QRS:38 QRSD: 115T:30 QT: 404 QTc:409 Interpretive Statements SINUS RHYTHM INCOMPLETE RIGHT BUNDLE BRANCH BLOCK Electronically Signed On 05-25-17 05:56:28 CDT by Nader Conrad M.D. 05/24/2017 [facility] CHEM PANEL Magnesium Lvl 2.2 mg/dL 1.8 - 2.4 12/01/2016 [facility] CHEM PANEL eGFR 79 mL/min/1.73m2 12/01/2016 Result [...] should be multiplied by the estimated BMI. [facility] CHEM PANEL Calcium Lvl 8.9 mg/dL 8.5 - 10.5 12/01/2016 [facility] CHEM PANEL CO2 25 meq/L 24 - 32 12/01/2016 [facility] CHEM PANEL Chloride Lvl 104 meq/L 95 - 109 12/01/2016 [facility] CHEM PANEL Sodium Lvl 139 meq/L 135 - 145 12/01/2016 [facility] CHEM PANEL Potassium Lvl 4.1 meq/L 3.5 - 5.1 12/01/2016 [facility] CHEM PANEL Glucose Lvl 85 mg/dL 70 - 99 12/01/2016 [facility] CHEM PANEL Creatinine Lvl 1.12 mg/dL 0.50 - 1.40 12/01/2016 [facility] CHEM PANEL BUN 15 mg/dL 7 - 22 12/01/2016 [facility] CHEM PANEL AGAP 14.1 meq/L 10.0 - 20.0 12/01/2016 [facility] HEMATOLOGY Eosinophils 0.6 % 0.0 - 4.0 12/01/2016 [facility] HEMATOLOGY Basophils 0.6 % 0.0 - 1.0 12/01/2016 [facility] HEMATOLOGY Monocytes # 0.6 K/CMM 0.0 - 0.8 12/01/2016 [facility] HEMATOLOGY Eosinophils # 0.1 K/CMM 0.0 - 0.5 12/01/2016 [facility] HEMATOLOGY Segs-Bands # 5.9 K/CMM 1.5 - 8.1 12/01/2016 [facility] HEMATOLOGY Lymphocytes # 2.4 K/CMM 1.0 - 5.5 12/01/2016 [facility] HEMATOLOGY Basophils # 0.1 K/CMM 0.0 - 0.2 12/01/2016 [facility] HEMATOLOGY Lymphocytes 27.0 % 20.0 - 40.0 12/01/2016 [facility] HEMATOLOGY Monocytes 6.3 % 2.0 - 12.0 12/01/2016 [facility] HEMATOLOGY Segs 65.5 % 45.0 - 75.0 12/01/2016 [facility] HEMATOLOGY MPV 6.9 fL 7.4 - 10.4 12/01/2016 [facility] HEMATOLOGY Platelet 209 K/CMM 133 - 450 12/01/2016 [facility] HEMATOLOGY MCHC 34.1 g/dL 32.0 - 36.0 12/01/2016 [facility] HEMATOLOGY RDW 13.7 % 11.5 - 14.5 12/01/2016 [facility] HEMATOLOGY WBC 9.0 K/CMM 3.7 - 10.4 12/01/2016 [facility] HEMATOLOGY MCH 31.5 pg 27.0 - 31.0 12/01/2016 [facility] HEMATOLOGY MCV 92.5 fL 80.0 - 94.0 12/01/2016 [facility] HEMATOLOGY Hct 43.3 % 42.0 - 54.0 12/01/2016 [facility] HEMATOLOGY Hgb 14.8 g/dL 14.0 - 18.0 12/01/2016 [facility] HEMATOLOGY RBC 4.68 M/CMM 4.70 - 6.10 12/01/2016 [facility] HEMATOLOGY PTT 45.0 s 22.9 - 35.8 12/01/2016 [facility] HEMATOLOGY INR 1.02 0.85 - 1.17 12/01/2016 [facility] HEMATOLOGY PT 13.6 s 12.0 - 14.7 12/01/2016 [facility] CARDIAC ENZYMES Troponin-I null 0.00 - 0.40 12/01/2016 [facility] CARDIAC ENZYMES Troponin-T null 0.000 - 0.100 12/01/2016 [facility] CARDIAC ENZYMES Total CK 51 unit/L 12 - 191 12/01/2016 [facility] HEMATOLOGY PTT 46.4 s 22.9 - 35.8 12/01/2016 [facility] CARDIAC ENZYMES Total CK 47 unit/L 12 - 191 11/30/2016 [facility] CARDIAC ENZYMES Troponin-I null 0.00 - 0.40 11/30/2016 [facility] CARDIAC ENZYMES Troponin-T null 0.000 - 0.100 11/30/2016 [facility] DRUG SCREEN U Amph Scr Negative *NA* (11/30/16 3:30 PM) Negative 11/30/2016 [facility] DRUG SCREEN U Noemi Scr Negative *NA* (11/30/16 3:30 PM) Negative 11/30/2016 [facility] DRUG SCREEN U Cannab Scr Negative *NA* (11/30/16 3:30 PM) Negative 11/30/2016 [facility] DRUG SCREEN U Phencyc Scr Negative *NA* (11/30/16 3:30 PM) Negative 11/30/2016 [facility] DRUG SCREEN U Opiate Scr Positive *ABN* (11/30/16 3:30 PM) Negative 11/30/2016 [facility] DRUG SCREEN U Benzodia Scr Negative *NA* (11/30/16 3:30 PM) Negative 11/30/2016 [facility] DRUG SCREEN U Cocaine Scr Negative *NA* (11/30/16 3:30 PM) Negative 11/30/2016 [facility] DRUG SCREEN UDS Note See Note (11/30/16 3:30 PM) 11/30/2016 [facility] HEMATOLOGY PT 13.3 s 12.0 - 14.7 11/30/2016 [facility] HEMATOLOGY INR 0.99 0.85 - 1.17 11/30/2016 [facility] HEMATOLOGY PTT 31.1 s 22.9 - 35.8 11/30/2016 [facility] CARDIAC ENZYMES Troponin-I null 0.00 - 0.40 11/30/2016 [facility] CARDIAC ENZYMES Total CK 48 unit/L 12 - 191 11/30/2016 [facility] CARDIAC ENZYMES Troponin-T null 0.000 - 0.100 11/30/2016 [facility] CHEM PANEL eGFR 73 mL/min/1.73m2 11/30/2016 Result [...] should be multiplied by the estimated BMI. [facility] CHEM PANEL CO2 29 meq/L 24 - 32 11/30/2016 [facility] CHEM PANEL Calcium Lvl 9.3 mg/dL 8.5 - 10.5 11/30/2016 [facility] CHEM PANEL BUN 15 mg/dL 7 - 22 11/30/2016 [facility] CHEM PANEL Creatinine Lvl 1.19 mg/dL 0.50 - 1.40 11/30/2016 [facility] CHEM PANEL Glucose Lvl 100 mg/dL 70 - 99 11/30/2016 [facility] CHEM PANEL Chloride Lvl 102 meq/L 95 - 109 11/30/2016 [facility] CHEM PANEL Potassium Lvl 4.5 meq/L 3.5 - 5.1 11/30/2016 [facility] CHEM PANEL Sodium Lvl 140 meq/L 135 - 145 11/30/2016 [facility] CHEM PANEL AGAP 13.5 meq/L 10.0 - 20.0 11/30/2016 [facility] HEMATOLOGY RBC 4.73 M/CMM 4.70 - 6.10 11/30/2016 [facility] HEMATOLOGY Hgb 14.9 g/dL 14.0 - 18.0 11/30/2016 [facility] HEMATOLOGY WBC 9.0 K/CMM 3.7 - 10.4 11/30/2016 [facility] HEMATOLOGY MPV 6.9 fL 7.4 - 10.4 11/30/2016 [facility] HEMATOLOGY MCV 92.0 fL 80.0 - 94.0 11/30/2016 [facility] HEMATOLOGY Hct 43.5 % 42.0 - 54.0 11/30/2016 [facility] HEMATOLOGY MCH 31.6 pg 27.0 - 31.0 11/30/2016 [facility] HEMATOLOGY Platelet 213 K/CMM 133 - 450 11/30/2016 [facility] HEMATOLOGY MCHC 34.3 g/dL 32.0 - 36.0 11/30/2016 [facility] HEMATOLOGY RDW 13.7 % 11.5 - 14.5 11/30/2016 [facility] HEMATOLOGY Lymphocytes # 2.0 K/CMM 1.0 - 5.5 11/30/2016 [facility] HEMATOLOGY Monocytes # 0.5 K/CMM 0.0 - 0.8 11/30/2016 [facility] HEMATOLOGY Basophils 0.7 % 0.0 - 1.0 11/30/2016 [facility] HEMATOLOGY Segs-Bands # 6.4 K/CMM 1.5 - 8.1 11/30/2016 [facility] HEMATOLOGY Basophils # 0.1 K/CMM 0.0 - 0.2 11/30/2016 [facility] HEMATOLOGY Segs 71.4 % 45.0 - 75.0 11/30/2016 [facility] HEMATOLOGY Lymphocytes 21.8 % 20.0 - 40.0 11/30/2016 [facility] HEMATOLOGY Monocytes 5.8 % 2.0 - 12.0 11/30/2016 [facility] HEMATOLOGY Eosinophils 0.3 % 0.0 - 4.0 11/30/2016 [facility] Vital Signs Vital Sign Value Date Comments [...] 02/18/2018 [facility] Systolic (mm Hg) 126 05/25/2017 [facility] Diastolic (mm Hg) 82 05/25/2017 [facility] Heart Rate 66 05/25/2017 [facility] Temperature Oral (F) 36.94 Muna 05/25/2017 [facility] Respitory Rate 18 05/25/2017 [facility] Temperature Oral (F) 98.2 F 12/01/2016 [facility] Respitory Rate 18 12/01/2016 [facility] Systolic (mm Hg) 129 12/01/2016 [facility] Diastolic (mm Hg) 75 12/01/2016 [facility] Systolic (mm Hg) 129 12/01/2016 [facility] Diastolic (mm Hg) 88 12/01/2016 [facility] Respitory Rate 20 12/01/2016 [facility] Respitory Rate 18 12/01/2016 [facility] Systolic (mm Hg) 99 12/01/2016 [facility] Diastolic (mm Hg) 67 12/01/2016 [facility] Temperature Oral (F) 97.9 F 12/01/2016 [facility] Temperature Oral (F) 97.1 F 12/01/2016 [facility] Height 182.88 cm 11/30/2016 [facility] BMI Calculated 33.67 11/30/2016 [facility] Weight 112.6 11/30/2016 [facility] Encounters Location Location Details Encounter Type Encounter Number Reason For Visit Attending Provider ADM Date DC Date Status Source [facility] Inpatient [id number] Parveen Johnson 11/30/2016 12/01/2016 [facility] Emergency Center BT Emergency [id number] 05/25/2017 05/25/2017 [facility] New Patient Detailed - 54058 [id number] Pepito Boyd MD 02/18/2018 [facility] Est Patient Exp Problem - 65512 [id number] Paula Clay MD 03/27/2018 [facility] Est Patient Exp Problem - 09811 [id number] Oscar Nielson MD (res) 04/09/2018 [facility] Discharged Inpatient (obs) [id number] ERIC BRO MD 04/15/2018 04/16/2018 [facility] Est Patient Detailed - 86374 [id number] Paula Clay MD 04/18/2018 [facility] Est Patient Detailed - 26396 [id number] Lele Suárez MD 04/23/2018 [facility] Depart[facility] Room [id number] MARGE GREER MD 05/06/2018 05/06/2018 [facility] Est Patient Exp Problem - 64866 [id number] Lele Suárez MD 05/28/2018 [facility] Est Patient Exp Problem - 20507 [id number] Juliann Worley MD (res) 06/15/2018 [facility] Est Patient Exp Problem - 40660 [id number] Lele Suárez MD 06/25/2018 [facility] Est Patient Exp Problem - 10882 [id number] Juliann Worley MD (res) 07/14/2018 [facility] Est Patient Exp Problem - 41596 [id number] Bandar Garcia MD R3 07/19/2018 [facility] Est Patient Exp Problem - 82301 [id number] Delicia Meraz MD (res) 07/22/2018 [facility] Est Patient Exp Problem - 10051 [id number] Lele Suárez MD 07/23/2018 [facility] Est Patient Exp Problem - 25095 [id number] Joe Mcmullen MD 07/23/2018 [facility] Est Patient Exp Problem - 31712 [id number] Lele Suárez MD 08/25/2018 [facility] Est Patient Detailed - 73306 [id number] Snehal Gutierrez MD 09/09/2018 [facility] Est Patient Exp Problem - 19738 [id number] Snehal Gutierrez MD 09/09/2018 [facility] Procedure Code Date Perfomer Comments Source Psychotherapy 45 (38-52*) min - 14459 (with patient and/or family member) 83962 08/19/2018 Robert ASSEMBLER ARRANGER-S, PUMPMAN [facility] INTV Indiv - 20410 58700 07/26/2018 Tarik TOMPKINSW [facility] HEMOGLOBIN A1C - In House 22700 07/14/2018 Meir RUIZ (res) [facility] Diagnostic evaluation (no medical) - 81156 79441 07/14/2018 Robert CHARLESFT-S, PUMPMAN [facility] Glucose Stick 45340 06/16/2018 Meir RUIZ (res) [facility] evaluation with medical - 95607 70115 04/23/2018 Kamini RUIZ [facility] Magnetic resonance imaging of brain without contrast [id number] 04/15/2018 [facility] CT angiography of chest [id number] 04/14/2018 [facility] Computed tomography of brain without radiopaque contrast [id number] 04/14/2018 [facility] Computed tomography angiography of abdomen and pelvis without then withcontrast [id number] 04/14/2018 [facility] BMP POC 37832 05/25/2017 [facility] [place] [facility] TROPONIN I POC [id number] 05/25/2017 Unknown [facility] 12 LEAD EKG [id number] 05/25/2017 Rai [facility] Hernia repair [id number] [facility] Knee joint operation [id number] [facility] Wrist reconstruction [id number] [facility]
--- OUTSIDE RECORDS SUMMARY | 2018-10-04 21:39 | XMS REPORT ---
Author Author Admin, [place] Organization [facility] Address [address] [address] Phone Allergies, Adverse Reactions, Alerts Allergy Name [...] Coronary atherosclerosis of unspecified type of vessel, [place] or graft Diabetes mellitus type II 250.00 [...] Generic Name NDC Status Provider Patient Instruction TOPAMAX 25 MG ORAL TABLET Take one tablet by mouth twice a day. TOPIRAMATE [id number] Active Lele Suárez MD Active ATIVAN 1 MG ORAL TABLET Take 1-2 tablets by mouth daily as needed for anxiety. LORAZEPAM 33004259707 Active Lele Suárez MD Active LANTUS 100 UNIT/ML SUBCUTANEOUS SOLUTION 42 units sq daily INSULIN GLARGINE 91745910221 Active Snehal Gutierrez MD Active LISINOPRIL 5 MG ORAL TABLET 1 by mouth every day LISINOPRIL 03275411490 Active Gertrude Hickey [facility] IT ACCOUNT MANAGER Active SURE COMFORT PEN NEEDLES 31G X 5 MM use as directed INSULIN PEN NEEDLE 20568172193 Active Snehal Gutierrez MD Active VIIBRYD 40 MG ORAL TABLET Take 1 tablet by mouth daily. VILAZODONE HCL 40514450626 Active Lele Suárez MD Active BD PEN NEEDLE LUZ U/F 32G X 4 MM Please use new needle for pen INSULIN PEN NEEDLE 58858818768 Active Delicia Meraz MD (res) Active ASPIRIN 81 MG ORAL TABLET DELAYED RELEASE 1 by mouth every day ASPIRIN 84040125875 Active Juliann Worley MD (res) Active MECLIZINE HCL 25 MG ORAL TABLET 1 by mouth 3 times a day as needed for dizziness MECLIZINE HCL 93269162382 Active Juliann Worley MD (res) Active DOXEPIN HCL 25 MG ORAL CAPSULE Take 1-2 capsules at bedtime as needed for sleep. DOXEPIN HCL 36407030107 Active Lele Suárez MD Active PAXIL 30 MG ORAL TABLET Take 2 tablets by mouth daily. PAROXETINE HCL 67744915155 Active Lele Suárez MD Active ATORVASTATIN CALCIUM 80 MG ORAL TABLET Take one tablet By Mouth Every Day ATORVASTATIN CALCIUM 21172660336 Active Orestes Carrillo MD (res) Active LORATADINE 10 MG ORAL TABLET 1 By Mouth once a day as needed for allergies LORATADINE 89657947198 Active Paula Clay MD Active METFORMIN HCL 1000 MG ORAL TABLET 1 by mouth twice a day METFORMIN HCL 96030542395 Active Paula Clay MD Active METOPROLOL TARTRATE 25 MG ORAL TABLET 1 by mouth twice a day METOPROLOL TARTRATE 51309628547 Active Orestes Carrillo MD (res) Active PLAVIX 75 MG ORAL TABLET 1 by mouth every day CLOPIDOGREL BISULFATE 46234205496 Active Snehal Gutierrez MD Active ATIVAN 2 MG ORAL TABLET Take 1 tablet by mouth daily as needed for anxiety. ATIVAN 2 MG ORAL TABLET 566012 LORAZEPAM Inactive LANTUS SOLOSTAR 100 UNIT/ML SUBCUTANEOUS SOLUTION PEN-INJECTOR 42 unit sq daily LANTUS SOLOSTAR 100 UNIT/ML SUBCUTANEOUS SOLUTION PEN-INJECTOR INSULIN GLARGINE Inactive AZITHROMYCIN 250 MG ORAL TABLET 2 tablets by mouth on day one then one tablet by mouth each day for a total of 5 days AZITHROMYCIN 250 MG ORAL TABLET 827054 AZITHROMYCIN Inactive CEFDINIR 300 MG ORAL CAPSULE 2 tablets by mouth every day for 10 days CEFDINIR 300 MG ORAL CAPSULE 168128 CEFDINIR Inactive TYLENOL WITH CODEINE #3 300-30 [...] a day. GABITRIL 4 MG ORAL TABLET 3248337 TIAGABINE HCL Inactive DIVALPROEX SODIUM ER 500 MG ORAL TABLET EXTENDED RELEASE 24 HOUR Takes 3 tablets in the morning and take at bedtime DIVALPROEX SODIUM ER 500 MG ORAL TABLET EXTENDED RELEASE 24 HOUR DIVALPROEX SODIUM Inactive GABAPENTIN 300 MG ORAL CAPSULE take three tablets Every Morning and three tablets take at bedtime GABAPENTIN 300 MG ORAL CAPSULE 248675 GABAPENTIN Inactive GLIPIZIDE 10 MG ORAL TABLET Takes one tablet Twice a Day GLIPIZIDE 10 MG ORAL TABLET 287944 GLIPIZIDE Inactive JANUVIA 100 MG ORAL TABLET 1 tab By Mouth daily JANUVIA 100 MG ORAL TABLET SITAGLIPTIN PHOSPHATE Inactive LISINOPRIL 10 MG ORAL TABLET 1 by mouth every day LISINOPRIL 10 MG ORAL TABLET 295114 LISINOPRIL Inactive NORTRIPTYLINE HCL 25 MG ORAL CAPSULE Take one tablet By Mouth take at bedtime NORTRIPTYLINE HCL 25 MG ORAL CAPSULE 539989 NORTRIPTYLINE HCL Inactive NORTRIPTYLINE HCL 25 MG ORAL CAPSULE Take 2 capsules by mouth at bedtime as needed for sleep. NORTRIPTYLINE HCL 25 MG ORAL CAPSULE 558885 NORTRIPTYLINE HCL Inactive PAROXETINE HCL 20 MG ORAL TABLET Take 3 tablets By Mouth Every Morning PAROXETINE HCL 20 MG ORAL TABLET 0381025 PAROXETINE HCL Inactive PRAZOSIN HCL 2 MG ORAL CAPSULE Take 2 tablets By Mouth take at bedtime PRAZOSIN HCL 2 MG ORAL CAPSULE 530604 PRAZOSIN HCL Inactive TRAZODONE HCL 300 MG ORAL TABLET 1 by mouth every night TRAZODONE HCL 300 MG ORAL TABLET 155883 TRAZODONE HCL Inactive DIAZEPAM 10 MG TABS TAKE 1/2 TO 1 TABLET BY MOUTH DAILY NEEDED FOR ANXIETY DIAZEPAM 10 MG TABS 190745 DIAZEPAM Inactive ATIVAN 2 MG ORAL TABLET Take 1 tablet by mouth daily as needed for anxiety. LORAZEPAM 27921778517 No Longer Active Lele Suárez MD Active LANTUS SOLOSTAR 100 UNIT/ML SUBCUTANEOUS SOLUTION PEN-INJECTOR 42 unit sq daily INSULIN GLARGINE 11101759285 No Longer Active Snehal Gutierrez MD Active AZITHROMYCIN 250 MG ORAL TABLET 2 tablets by mouth on day one then one tablet by mouth each day for a total of 5 days AZITHROMYCIN 45030673417 No Longer Active Snehal Gutierrez MD Active CEFDINIR 300 MG ORAL CAPSULE 2 tablets by mouth every day for 10 days CEFDINIR 92202931036 No Longer Active Joe Mcmullen MD Active TYLENOL WITH CODEINE #3 300-30 MG ORAL TABLET 1 by mouth every 8 hours as needed ACETAMINOPHEN-CODEINE 17968311711 No Longer Active Snehal Gutierrez MD Active VIIBRYD 20 MG ORAL TABLET Take 1 tablet by mouth daily. VILAZODONE HCL 82742544668 No Longer Active Lele Suárez MD Active GABITRIL 4 MG ORAL TABLET Take one tablet by mouth twice a day. TIAGABINE HCL 24061760623 No Longer Active Lele Suárez MD Active DIVALPROEX SODIUM ER 500 MG ORAL TABLET EXTENDED RELEASE 24 HOUR Takes 3 tablets in the morning and take at bedtime DIVALPROEX SODIUM 96030455550 No Longer Active Lele Suárez MD Active GABAPENTIN 300 MG ORAL CAPSULE take three tablets Every Morning and three tablets take at bedtime GABAPENTIN 10616540562 No Longer Active Leel Suárez MD Active GLIPIZIDE 10 MG ORAL TABLET Takes one tablet Twice a Day GLIPIZIDE 51805175357 No Longer Active Paula Clay MD Active JANUVIA 100 MG ORAL TABLET 1 tab By Mouth daily SITAGLIPTIN PHOSPHATE 62789886721 No Longer Active Snehal Gutierrez MD Active LISINOPRIL 10 MG ORAL TABLET 1 by mouth every day LISINOPRIL 76861123397 No Longer Active Snehal Gutierrez MD Active NORTRIPTYLINE HCL 25 MG ORAL CAPSULE Take 2 capsules by mouth at bedtime as needed for sleep. NORTRIPTYLINE HCL 96783009425 No Longer Active Lele Suárez MD Active NORTRIPTYLINE HCL 25 MG ORAL CAPSULE Take one tablet By Mouth take at bedtime NORTRIPTYLINE HCL 56075643627 No Longer Active Paula Clay MD Active PAROXETINE HCL 20 MG ORAL TABLET Take 3 tablets By Mouth Every Morning PAROXETINE HCL 94219213324 No Longer Active Lele Suárez MD Active PRAZOSIN HCL 2 MG ORAL CAPSULE Take 2 tablets By Mouth take at bedtime PRAZOSIN HCL 33533881480 No Longer Active Juliann Worley MD (res) Active TRAZODONE HCL 300 MG ORAL TABLET 1 by mouth every night TRAZODONE HCL 71965918583 No Longer Active Lele Suárez MD Active DIAZEPAM 10 MG TABS TAKE 1/2 TO 1 TABLET BY MOUTH DAILY NEEDED FOR ANXIETY DIAZEPAM 40863039277 No Longer Active Lele Suárez MD Active Vital Signs Date Name Value Unit Range Description blood pressure, diastolic 81 mm[Hg] BP [place] blood pressure, systolic 121 mm[Hg] BP sys height E&M 72 [in_us] Bdy height pulse rate E&M 84 /min Heart rate weight E&M 291.40 [lb_av] Weight Measured blood pressure, diastolic 67 mm[Hg] BP [place] blood pressure, systolic 96 mm[Hg] BP sys height E&M 72 [in_us] Bdy height pulse rate E&M 120 /min Heart rate weight E&M 300.50 [lb_av] Weight Measured blood pressure, diastolic 79 mm[Hg] BP [place] [...] sodium, serum 134 mmol/L 134-144 Lab Report: [id number] 7+Alc-Unbund, Amphetamines Confirmation, Ur, [id number] 7 ... - Toxicology benzodiazepine screen, urine Positive Fzdifr=304 Lab Report: TSH+Free T4, Comp. Metabolic Panel (14), Lipid Panel, Hemogl ... - Chemistry thyroid stimulating hormone, serum 0.989 u[iU]/mL 0.450-4.500 Lab Report: [id number] 7+Alc-Unbund, Amphetamines Confirmation, Ur, [id number] 7 ... - Toxicology amphetamine screen, urine Negative Pnoail=3791 Lab Report: TSH+Free T4, Comp. Metabolic Panel (14), Lipid Panel, Hemogl ... - Chemistry very low density lipoproteins 60 mg/dL 5-40 Lab Report: [id number] 7+Alc-Unbund, Amphetamines Confirmation, Ur, [id number] 7 ... - Chemistry cannabinoid screen, urine Negative ng/mL Cutoff=50 Lab Report: TSH+Free T4, Comp. Metabolic Panel (14), Lipid Panel, Hemogl ... - Chemistry carbon dioxide, venous blood 22 mmol/L 20-29 Lab Report: [id number] 7+Alc-Unbund, Amphetamines Confirmation, Ur, [id number] 7 ... - Toxicology phencyclidine screen, urine Negative ng/mL Cutoff=25 Lab Report: TSH+Free T4, Comp. Metabolic Panel (14), Lipid Panel, Hemogl ... - Chemistry chloride, serum 97 mmol/L 96-106 triglyceride, serum, fasting 298 mg/dL 0-149 calcium, serum 10.3 mg/dL 8.7-10.2 urea nitrogen, blood 15 mg/dL 6-24 alanine aminotransferase (SGPT), serum 50 U/L 0-44 Office Visit: Acute Visit Rm3 Jose - Chemistry blood glucose, fasting 177 mg/dL [...] of total hemoglobin 9.3 % Lab Report: [id number] 7+Alc-Unbund, Amphetamines Confirmation, Ur, [id number] 7 ... - Toxicology barbiturates screen, urine Negative Lajvuy=824 cocaine, urine Negative Mdgnin=158 Lab Report: TSH+Free T4, Comp. Metabolic Panel [...] 2.5 1.5-4.5 albumin/globulin ratio, serum 1.9 1.2-2.2 Estimated Glomerular Filtration Rate (calc) 84 mL/min/1.73m2 >59 creatinine, serum 1.06 mg/dL 0.76-1.27 cholesterol, serum 202 mg/dL 106-247 7467/09/07 bilirubin, serum, total 0.3 mg/dL 0.0-1.2 Office Visit: Adult Followup 2 - Chemistry blood glucose, random 202 mg/dL Lab Report: TSH+Free T4, Comp. Metabolic Panel (14), Lipid Panel, Hemogl ... - Chemistry aspartate aminotransferase (SGOT), serum 32 U/L 0-40 potassium, serum 4.6 mmol/L 3.5-5.2 albumin, serum 4.7 g/dL 3.5-5.5 Lab Report: [id number] 7+Alc-Unbund, Amphetamines Confirmation, Ur, [id number] 7 ... - Toxicology opiates, urine, semiquantitative See Final Results Qturaq=[id number] Encounters Date Encounter Provider Code Facility 14:28:44 FIELD TECHNICIAN Est Patient Exp Problem - 02133 Lele Suárez MD CPT-36131 [facility] 14:43:22 FIELD TECHNICIAN Est Patient Exp Problem - 58712 Lele Suárez MD CPT-99702 [facility] 13:05:06 FIELD TECHNICIAN Est Patient Exp Problem - 07543 Snehal Gutierrez MD CPT-63498 [facility] 11:06:52 FIELD TECHNICIAN Est Patient Detailed - 51165 Snehal Gutierrez MD CPT-10834 [facility] 14:01:37 FIELD TECHNICIAN Est Patient Exp Problem - 48992 Lele Suárez MD CPT-15883 [facility] 16:17:36 FIELD TECHNICIAN Est Patient Exp Problem - 86757 Joe Mcmullen MD CPT-78318 [facility] 15:02:34 FIELD TECHNICIAN Est Patient Exp Problem - 55708 Lele Suárez MD CPT-76434 [facility] 17:20:36 FIELD TECHNICIAN Est Patient Exp Problem - 18187 Delicia Meraz MD (res) CPT-14805 [facility] 16:35:53 FIELD TECHNICIAN Est Patient Exp Problem - 03627 Bandar Garcia MD R3 CPT-24412 [facility] 10:34:23 FIELD TECHNICIAN Est Patient Exp Problem - 25864 Juliann Worley MD (res) CPT-26653 [facility] 15:34:44 FIELD TECHNICIAN Est Patient Exp Problem - 65864 Lele Suárez MD CPT-29249 [facility] 15:35:27 FIELD TECHNICIAN Est Patient Exp Problem - 79912 Juliann Worley MD (res) CPT-08772 [facility] 15:12:46 CDT Est Patient Exp Problem - 03626 Lele Suárez MD CPT-92280 [facility] 13:08:51 CDT Est Patient Detailed - 18864 Lele Suárez MD CPT-61228 [facility] 23:10:36 CDT Est Patient Detailed - 80771 Paula Clay MD CPT-81914 [facility] 14:28:27 CDT Est Patient Exp Problem - 33941 Oscar Nielson MD (res) CPT-64334 [facility] 15:02:09 CDT Est Patient Exp Problem - 63592 Paula Clay MD CPT-36880 [facility] 10:56:53 CDT New Patient Detailed - 65518 Pepito Boyd MD CPT-88211 [facility] Practice Procedures Code Procedure Name Date Entry Date Standard Description CPT-47555 Psychotherapy 45 (38-52*) min - 94799 (with patient and/or family member) 14:03:04 FIELD TECHNICIAN CPT-89155 Psychotherapy 45 (38-52*) min - 12109 (with patient and/or family member) 09:39:01 FIELD TECHNICIAN CPT-65746 [facility] - 86091 14:47:42 FIELD TECHNICIAN CPT-39485 HEMOGLOBIN A1C - In House 10:34:23 FIELD TECHNICIAN CPT-48133 Diagnostic evaluation (no medical) - 41377 08:53:47 FIELD TECHNICIAN CPT-10467 Gl[facility] 15:55:29 FIELD TECHNICIAN CPT-96312 Diagnostic evaluation with medical - 68435 13:48:41 CDT
== END 2018-10-04 22:30 | disposition left against medical advice (07) ==
LOC: ER 21:31
DX: S99.912A Unspecified injury of left ankle, initial encounter (principal); W23.0XXA Caught, crushed, jammed, or pinched between moving objects, initial encounter; Y92.003 Bedroom of unspecified non-institutional (private) residence as the place of occurrence of the external cause; E11.9 Type 2 diabetes mellitus without complications; I11.0 Hypertensive heart disease with heart failure; I50.9 Heart failure, unspecified; E78.5 Hyperlipidemia, unspecified; I25.10 Atherosclerotic heart disease of native coronary artery without angina pectoris; J44.9 Chronic obstructive pulmonary disease, unspecified; I25.2 Old myocardial infarction; M54.9 Dorsalgia, unspecified; G89.29 Other chronic pain; Z79.01 Long term (current) use of anticoagulants; Z79.02 Long term (current) use of antithrombotics/antiplatelets; Z79.4 Long term (current) use of insulin; Z88.5 Allergy status to narcotic agent; Z88.8 Allergy status to other drugs, medicaments and biological substances

== ENCOUNTER → 2018-10-20 | Outpatient (CLI) | payer BC ==
--- NOTE | 2018-10-20 16:10 | Diagnostic Imaging Report ---
Exam: Left knee radiographs-3 views History: Left knee pain Comparison: None. Findings: No evidence of acute fracture, malalignment, or soft tissue abnormality. There are minimal medial and patellofemoral compartment degenerative changes. Impression: No acute radiographic abnormality. Minimal medial and patellofemoral compartment osteoarthritis. Signed by: Dr. Radha Hilliard MD on 10/20/2018 4:06 PM
== END ==
LOC: RAD 13:43
PROVIDERS: ATTEND Internal Medicine
DX: M25.562 Pain in left knee (principal); S89.92XA Unspecified injury of left lower leg, initial encounter

== ENCOUNTER 2018-11-16 16:33 | Emergency (ER) | payer BC ==
[~2018-11-16] VITALS: Ht 182.9 cm; Wt 133.8 kg
--- OUTSIDE RECORDS SUMMARY | 2018-11-16 16:36 | XMS REPORT | Clinical Summary ---
Author Author [facility] Address Unknown Phone Unavailable Care Team Providers Care Telephone Service Adviser Name Role Phone Pcp, No PCP Unavailable [...] pain 06/06/2018 Emergency Emergency Medicine [facility]2018 [facility] 06/05/2018 Emergency Emergency Medicine Gagan Mai MD Adio, Titilola R., MD Kulkarni, Mark Anthony Delgado MD Syncope and collapse (Primary Dx); Head injury, acute, initial encounter; Neck pain, acute; Acute bilateral back pain, unspecified back location; Acute hyperglycemia; Tobacco abuse; Coronary artery disease involving [place] coronary artery of [place] heart without angina pectoris; Precordial pain 05/29/2018 Emergency Cardiology - 05/31/2018 Mouna Krishna RN Diabetes 05/20/2018 Telephone Cardiology Mouna Krishna RN Diabetes 05/19/2018 Telephone Cardiology Juli Saenz MD Tirukkovalluri, Srilakshmi, MD Agrawal, Neeraj, MD Precordial pain (Primary Dx); Tobacco abuse; History of VA (myocardial infarction); Dizziness; Anxiety; Coronary artery disease involving [place] coronary artery of [place] heart with unstable angina pectoris (HCC); PTSD (post-traumatic stress disorder); Hyperglycemia; Type 2 diabetes mellitus treated with insulin (HCC) 05/07/2018 Hospital Cardiology - Encounter 05/11/2018 05/07/2018 Orders Only General Internal Medicine after 11/15/2017 Immunizations Name Dates Previously Given Next Due [...] 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 05/09/2018 [id number] / / [id number] Closure Sys Perclose Progl 6fr Cardiovasc Right: Groin WILDWOOD [id number] - [id number] [facility] LAB:VASC Implanted: Qty: 1 on 12/26/2016 by Kate Celeste MD Procedures Comments Procedure Name Priority Date/Time Associated Diagnosis REPORT OF PROCEDURE - 11/11/2018 ENDOSCOPY SCAN 11:34 AM CDT POCT-GLUCOSE METER Routine 06/06/2018 8:02 PM CDT [...] ms QTC Calculatio n(Bazett) 425 ms P [place] 17 degrees R [place] 40 degrees T [place] 56 degrees Normal sinus rhythm Incomplete right [...] ms QTC Calculatio n(Bazett) 455 ms P [place] 38 degrees R [place] 42 degrees T [place] 42 degrees Sinus rhythm with Possible Premature [...] 12-LEAD STAT 05/07/2018 1:36 PM CDT after 11/15/2017 Results * EKG-SCANNED (11/11/2018 11:34 AM CDT) Narrative Performed At * POC-Glucose meter (06/06/2018 8:02 PM CDT) Only the most recent of 33 results within the time period is included. POC-Glucose Meter 186 (H)Comment: TESTED AT 70 - 110 mg/dL [facility] [address] [facility] [address] Specimen Blood Performing Organization Address City/State/Zipcode Phone Number [address] [phone] [facility] * Troponin I (not available at [facility] [place]) (06/06/2018 7:18 PM CDT) Only the most recent of 8 results within the time period is included. Troponin I <0.01 0.00 - 0.03 ng/mL [facility] Specimen Blood Narrative Performed At Troponin I (TnI) levels must be interpreted in the context of the presenting [facility] symptoms and the clinical findings. Elevated TnI levels indicate myocardial [facility] damage, but are not specific for ischemic heart disease. Elevated TnI levels are seen in patients with other cardiac conditions (including myocarditis and congestive heart failure), and slight TnI elevations occur in patients with other conditions, including sepsis, renal failure, acidosis, acute neurological disease, and persistent tachyarrhythmia. Performing Organization Address City/State/Zipcode Phone Number [facility] [address] [place] [address] [facility] * ECG 12 lead (06/06/2018 6:44 PM CDT) Only the most recent of 4 results within the time period is included. Narrative Performed At Ventricular Rate 97 BPM [facility] Atrial Rate 97 BPM P-R Interval 172 ms QRS Duration 106 ms Q-T Interval 356 ms QTC Calculation(Bazett) 452 ms P [place] 53 degrees R [place] 125 degrees T [place] 32 degrees Normal sinus rhythm Left posterior [...] 356 ms QTC Calculation(Bazett) 452 ms P [place] 53 degrees R [place] 125 degrees T [place] 32 degrees Normal sinus rhythm Left posterior fascicular block Incomplete right bundle branch block Inferior infarct , age undetermined Abnormal ECG When compared with ECG of 04-JUN-2018 19:29, Left posterior fascicular block is now Present Inferior infarct is now Present Confirmed by MD ALDANA YOCHAI ([id number]) on 06/07/2018 6:33:54 AM Performing Organization Address City/State/Zipcode Phone Number [facility] * ECG/EKG Interpretation [...] LAFB. ST segments normal. T waves abnormal. [place] is normal. Other findings: no other findings. Clinical Impression: abnormal ECGECG reviewed and does not meet STEMI criteria. Patient tolerance: Patient tolerated the procedure well with no immediate complications * CBC with platelet count + automated diff (06/06/2018 4:36 PM CDT) Only the most recent of 7 results within the time period is included. WBC 6.6 3.5 - 10.5 K/L [facility] RBC 4.20 (L) 4.63 - 6.08 M/L [facility] Hemoglobin 12.9 (L) 13.7 - 17.5 GM/DL [facility] Hematocrit 37.6 (L) 40.1 - 51.0 % [facility] MCV 89.5 79.0 - 92.2 fL [facility] MCH 30.7 25.7 - 32.2 pg [facility] MCHC 34.3 32.3 - 36.5 GM/DL [facility] RDW 13.1 11.6 - 14.4 % [facility] Platelets 142 (L) 150 - 450 K/CU MM [facility] MPV 9.0 (L) 9.4 - 12.4 fL [facility] nRBC 0 0 - 0 /100 WBC [facility] % Neutros 74 % [facility] % Lymphs 18 % [facility] % Monos 7 % [facility] % Eos 1 % [facility] % Baso 0 % [facility] # Neutros 4.92 1.78 - 5.38 K/L [facility] # Lymphs 1.20 (L) 1.32 - 3.57 K/L [facility] # Monos 0.44 0.30 - 0.82 K/L [facility] # Eos 0.03 (L) 0.04 - 0.54 K/L [facility] # Baso 0.02 0.01 - 0.08 K/L [facility] Immature 0 0 - 1 % [facility] Granulocytes-[facility] Specimen Blood Performing Organization Address City/State/[place] [address] [phone] [place] [address] * Ketones, blood (06/06/2018 4:36 PM CDT) Ketones, Blood 0.1 <0.4 mmol/L [facility] Specimen Blood Performing Organization Address City/State/Zipcode Phone Number [address] [address] [phone] [place] [address] * Basic metabolic panel (Na, K+, Cl, CO2, Glu, Ca, BUN, Cr) (06/06/2018 4:36 PM CDT) Only the most recent of 8 results within the time period is included. Sodium 132 (L) 136 - 145 meq/L [facility] Potassium 3.9 3.5 - 5.1 meq/L [facility] Chloride 103 98 - 107 meq/L [facility] CO2 18 (L) 22 - 29 meq/L [facility] BUN 11 7 - 21 mg/dL [facility] Creatinine 1.25 0.57 - 1.25 mg/dL [facility] Glucose 355 (H) 70 - 105 mg/dL [facility] Calcium 10.3 (H) 8.4 - 10.2 mg/dL [facility] EGFR 62Comment: ESTIMATED GFR IS mL/min/1.73 sq m [facility] NOT ACCURATE CREATININE [facility] CLEARANCE IN PREDICTING GLOMERULAR FILTRATION RATE. ESTIMATED GFR IS NOT APPLICABLE FOR DIALYSIS PATIENTS. Specimen Blood Performing Organization Address [facility] Phone Number [place] [phone] [place] [address] [facility] * PT/aPTT (06/04/2018 9:11 PM CDT) Only the most recent of 3 results within the time period is included. Protime 12.5 11.7 - 14.7 seconds [facility] INR 0.9 <=5.9 [facility] PTT 23.9 22.5 - 36.0 seconds [facility] Specimen Blood Narrative Performed At RECOMMENDED COUMADIN/WARFARIN INR THERAPY RANGES [facility] STANDARD DOSE: 2.0 - 3.0 Includes: PROPHYLAXIS for venous thrombosis, [facility] systemic embolization; TREATMENT for venous thrombosis and/or pulmonary embolus. HIGH RISK: Target INR is 2.5-3.5 for patients with mechanical heart valves. Performing Organization Address [facility] Phone Number [address] [phone] [facility] * CT brain without IV contrast (06/04/2018 7:23 PM CDT) Only the most recent of 2 results within the time period is included. Narrative Performed At FINAL REPORT [facility] CT head without contrast INDICATION: Ataxia, head [...] MD Report Verified Date/Time:06/04/2018 19:34:16 Reading Location: [facility] Radiology Reading Room Procedure Note Interface, [...] Report Verified Date/Time: 06/04/2018 19:34:16 Reading Location: [facility] Radiology Reading Room Performing Organization Address City/State/Zipcode Phone Number [facility] * RHYTHM STRIP - SCAN (06/01/2018 2:40 PM CDT) Only the most recent of 2 results within the time period is included. Narrative Performed At * Magnesium (05/31/2018 4:37 AM CDT) Only the most recent of 4 results within the time period is included. Magnesium 2.4Comment: Specimen slightly 1.6 - 2.6 mg/dL [facility] hemolyzed [facility] Specimen Blood - Arm, Left Performing Organization Address [facility]/Zipcode Phone Number [facility] [address] [place] [address] [facility] * Rapid drug screen, urine (05/30/2018 8:31 PM CDT) Barbiturate Screen Negative Negative [facility] Benzodiazepine Screen Positive (A) Negative [facility] Cocaine (Metab.) Screen Negative Negative [facility] Methadone Screen Negative Negative [facility] Opiate Screen Positive (A) Negative [facility] Cannabinoid Screen Negative Negative [facility] Amph/Methamph Screen Negative Negative [facility] Phencyclidine Screen Negative Negative [facility] Oxycodone Screen Negative Negative [facility] Specimen Urine - Urine, Clean Catch Narrative Performed At [facility] Cocaine 300 ng/mL [facility] Gselnajffms07 ng/mL Fyuiaidgfwikki894 ng/mL Barbiturate 200 ng/mL Yvronybisafbx23 ng/mL Dqhlkm817 ng/mL Methadone 300 ng/mL Amphetamine/ 1000 ng/mL Methamphetamine Oxycodone 300 ng/mL This assay provides an unconfirmed qualitative test result for the clinical management of patients in emergency situations. Chain of custody not maintained. Some ulan-rsn-smelnpy medications, as well as adulterants, may cause inaccurate results. Clinical correlation should be applied. A more comprehensive drug screen or confirmation of a detected drug may be performed upon request. Performing Organization Address [facility]/Zipcode Phone Number [facility] [address] [place] [address] [facility] * Urinalysis w/Microscopic (05/30/2018 8:31 PM CDT) Color, UA Light Yellow [facility] Clarity, UA Clear [facility] Specific [place], UA 1.013 1.001 - 1.035 [facility] pH, UA 6.0 5.0 - 8.0 [facility] Protein, UA Negative Negative [facility] Glucose, UA >1000 mg/dL (A) Negative [facility] Ketones, UA Negative Negative [facility] Bilirubin, UA Negative Negative [facility] Blood, UA Negative Negative [facility] Nitrite, UA Negative Negative [facility] Leukocytes, UA Negative Negative [facility] Urobilinogen, UA 0.2 0.2 - 1.0 mg/dL [facility] RBC, UA <1 /HPF [facility] WBC, UA 0 /HPF [facility] Specimen Source Urine, Clean Catch [facility] Specimen Urine - Urine, Clean Catch Performing Organization Address [facility] Phone Number [facility] [address] [place] [address] [facility] * Lipid panel (05/30/2018 2:45 AM CDT) Only the most recent of 2 results within the time period is included. Triglycerides 287Comment: Specimen slightly mg/dL [facility] Cholesterol 146Comment: Specimen slightly mg/dL [facility] HDL 32 mg/dL [facility] LDL Calculated 57 mg/dL [facility] Specimen Blood - Arm, Right Narrative Performed At Triglyceride Reference Range: [facility] Low Risk <150 [facility] [id number] High Risk 200-499 Very High Risk>=500 Cholesterol Reference Range: Low Risk <200 Nslzaawyvs223-944 High Risk>240 HDL Cholesterol Reference Range: Low Risk >=60 High Risk <40 LDL Cholesterol Reference Range: Optimal<100 Near Haohlse370-309 Bxykhkxukj295-759 Vdoa140-770 Very High >=190 Performing Organization Address [facility]/State/Zipcode Phone Number [facility] [address] [place] [address] [facility] * XR spine lumbar complete 4 views min (05/29/2018 6:38 PM CDT) Narrative Performed At FINAL REPORT CodeEval RAD, SPINE, LUMBAR, COMPLETE (MIN 4 VIEWS) [...] MD Report Verified Date/Time:05/29/2018 19:24:24 Reading Location: [facility] C013 CT Body Reading Room Procedure Note Interface, [...] Report Verified Date/Time: 05/29/2018 19:24:24 Reading Location: [facility] C013Y CT Body Reading Room Performing Organization Address City/State/Zipcode Phone Number [facility] * XR pelvis 1 or 2 views (05/29/2018 6:37 PM CDT) Narrative Performed At FINAL REPORT CodeEval CLINICAL HISTORY: Trauma and pain. A single view of the pelvis is submitted without comparison. There is no acute fracture or malalignment. No destructive bony lesion, significant degenerative change or radiopaque foreign body is present. The surrounding soft tissues are normal. IMPRESSION: No acute abnormality. Signed: Christian Anderson MD Report Verified Date/Time:05/29/2018 19:16:28 Reading Location: [address] Reading Room Procedure Note Interface, External [...] Report Verified Date/Time: 05/29/2018 19:16:28 Reading Location: [address] Reading Room Performing Organization Address City/State/Zipcode [...] MD Report Verified Date/Time:05/29/2018 19:12:04 Reading Location: [facility] B1 C013Y CT Body Reading Room Procedure Note [...] Report Verified Date/Time: 05/29/2018 19:12:04 Reading Location: [facility] C013Y CT Body Reading Room Performing Organization Address City/State/Zipcode Phone Number [facility] * CT spine cervical without IV contrast (05/29/2018 5:34 PM CDT) Narrative Performed At FINAL REPORT GlySure CT cervical spine without contrast INDICATION: DIZZINESS [...] MD Report Verified Date/Time:05/29/2018 17:30:29 Reading Location: [facility] B1 C013V Neuro Reading Room Procedure Note Interface, External [...] Report Verified Date/Time: 05/29/2018 17:30:29 Reading Location: [facility] C013V Neuro Reading Room Performing Organization Address City/State/Zipcode Phone Number RIS * Phosphorus (05/29/2018 4:46 PM CDT) Phosphorus 3.4Comment: Specimen markedly 2.3 - 4.7 mg/dL [facility] hemolyzed [facility] Specimen Blood - Arm, Right Performing Organization Address City/[facility]/Zipcode Phone Number [facility] [address] [place], [place] [phone] [facility] * Creatine Kinase (CK), Total and MB (05/29/2018 4:46 PM CDT) Only the most recent of 2 results within the time period is included. Total CK 199 29 - 200 U/L [facility] CK-MB 4.8 0.0 - 6.6 ng/mL [facility] MB Relative Index 2.4 % [facility] Specimen Blood - Arm, Right Narrative Performed At CK-MB Reference Range: [facility] <6.7Normal [facility] 6.7-10.0Borderline >10.0 Abnormal Performing Organization Address City/State/Zipcode Phone Number [facility] [address] [place] [address] [facility] * Comprehensive metabolic panel (05/29/2018 4:46 PM CDT) Protein, Total 7.7Comment: Specimen markedly 6.0 - 8.3 gm/dL [facility] Albumin 4.3Comment: Specimen markedly 3.5 - 5.0 g/dL [facility] Alkaline Phosphatase 71 40 - 150 U/L [facility] Total Bilirubin 0.7Comment: Specimen markedly 0.2 - 1.2 mg/dL [facility] Sodium 132 (L) 136 - 145 meq/L [facility] Potassium 5.2 (H)Comment: Specimen 3.5 - 5.1 meq/L [facility] markedly hemolyzed [facility] Chloride 99 98 - 107 meq/L [facility] CO2 22 22 - 29 meq/L [facility] BUN 13 7 - 21 mg/dL [facility] Creatinine 1.33 (H)Comment: Specimen 0.57 - 1.25 mg/dL [facility] markedly hemolyzed [facility] Glucose 261 (H) 70 - 105 mg/dL [facility] Calcium 10.0 8.4 - 10.2 mg/dL [facility] AST 60 (H)Comment: Specimen 5 - 34 U/L [facility] markedly hemolyzed [facility] ALT 39Comment: Specimen markedly 6 - 55 U/L [facility] hemolyzed [facility] EGFR 58Comment: ESTIMATED GFR IS mL/min/1.73 sq m [facility] NOT ACCURATE CREATININE [facility] CLEARANCE IN PREDICTING GLOMERULAR FILTRATION RATE. ESTIMATED GFR IS NOT APPLICABLE FOR DIALYSIS PATIENTS. Specimen Blood - Arm, Right Performing Organization Address City/State/[place] [address] [phone] [place] [address] * Hemoglobin A1c (05/09/2018 1:09 PM CDT) Hemoglobin A1C 8.3 (H) 4.3 - 6.1 % [facility] Specimen Blood - Arm, Right Performing Organization Address [facility] Phone Number [address] [address] [phone] [place] [address] * MR brain without IV contrast (05/09/2018 12:49 PM CDT) Narrative Performed At FINAL REPORT [employer] MRI brain without contrast INDICATION: Headache, dizziness. [...] MD Report Verified Date/Time:05/09/2018 11:23:03 Reading Location: [facility] C013V Neuro Reading Room Procedure Note Interface, External [...] Report Verified Date/Time: 05/09/2018 11:23:03 Reading Location: [facility] C013V Neuro Reading Room Performing Organization Address City/State/Zipcode Phone Number [facility] * EEG AWAKE AND DROWSY (05/08/2018 2:27 PM CDT) Narrative Performed At Neurophysiology Electroencephalogram Report [facility] DATE OF REPORT: 05/08/18 Date(s) of Study: 05/08/2018 ACC: [id number] Start time: 05/08/2018 at 13:55 Stop time: 05/08/2018 at 14:16 ICD-10: R56.9 CPT Code: 73658 HISTORY: 47 y old male with h/o [...] REPORT: 05/08/18 Date(s) of Study: 05/08/2018 ACC: [id number] Start time: 05/08/2018 at 13:55 Stop time: 05/08/2018 at 14:16 ICD-10: R56.9 CPT Code: 31426 HISTORY: 47 y old male with h/o [...] CDT) BNP 20 0 - 100 pg/mL [facility] Specimen Blood - Arm, Right Performing Organization Address [facility]/Zipcode Phone Number [facility] [address] [place] [address] [facility] * XR chest 1 view [...] MD Report Verified Date/Time:05/07/2018 14:53:36 Reading Location: [facility] C013 Consult Reading Room Procedure Note Interface, [...] Report Verified Date/Time: 05/07/2018 14:53:36 Reading Location: [facility] B1 C013W Consult Reading Room Performing Organization Address City/[facility]/Zipcode Phone Number [facility] after 11/15/2017 Insurance Payer Benefit Subscriber ID Type Phone Address Plan / Group BLUE CROSS/[employer]UE SHIELD BCBS ADV xxxxxxxxxxxx [phone] [address] [place] [address] EXCHANGE Advance Directives For more information, please contact: [facility] [address] [place] [address] Date Inactivated Comments Code Status Date Activated 05/31/2018 2:13 PM Full Code 05/29/2018 8:14 PM This code status was determined by: Patient 05/11/2018 6:00 PM Full Code 05/07/2018 4:35 PM This code status was determined by: Patient 12/27/2016 2:48 PM Full Code 12/25/2016 6:06 AM This code status was determined by: Patient
--- OUTSIDE RECORDS SUMMARY | 2018-11-16 16:41 | XMS REPORT ---
Author Author Admin, [place] Organization [facility] Address [address] [place] [address] Phone Allergies, Adverse Reactions, Alerts Allergy Name [...] Coronary atherosclerosis of unspecified type of vessel, [place] or graft Diabetes mellitus type II 250.00 [...] Generic Name NDC Status Provider Patient Instruction CLONAZEPAM 2 MG ORAL TABLET Take 1/2 - 1 tablet by mouth daily as needed for anxiety. CLONAZEPAM 12733524146 Active Lele Suárez MD Active TOPAMAX 50 MG ORAL TABLET Take one tablet by mouth twice a day. 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 VILAZODONE HCL 92937352068 Active Lele Suárez MD Active BD PEN NEEDLE LUZ U/F 32G X 4 MM Please use new needle for pen INSULIN PEN NEEDLE 72806472279 Active Delicia Meraz MD (res) Active ASPIRIN 81 MG ORAL TABLET DELAYED RELEASE 1 by mouth every day ASPIRIN 66557221259 Active Juliann Worley MD (res) Active MECLIZINE HCL 25 MG ORAL TABLET 1 by mouth 3 times a day as needed for dizziness MECLIZINE HCL 04933987787 Active Juliann Worley MD (res) Active DOXEPIN HCL 25 MG ORAL CAPSULE Take 1-2 capsules at bedtime as needed for sleep. DOXEPIN HCL 61623381019 Active Lele Suárez MD Active PAXIL 30 MG ORAL TABLET Take 2 tablets by mouth daily. PAROXETINE HCL 48234403486 Active Lele Suárez MD Active ATORVASTATIN CALCIUM 80 MG ORAL TABLET Take one tablet By Mouth Every Day ATORVASTATIN CALCIUM 05500399628 Active Orestes Carrillo MD (res) Active LORATADINE 10 MG ORAL TABLET 1 By Mouth once a day as needed for allergies LORATADINE 09151346639 Active Paula Clay MD Active METFORMIN HCL 1000 MG ORAL TABLET 1 by mouth twice a day METFORMIN HCL 17202964050 Active Paula Clay MD Active METOPROLOL TARTRATE 25 MG ORAL TABLET 1 by mouth twice a day METOPROLOL TARTRATE 93890109227 Active Orestes Carrillo MD (res) Active PLAVIX 75 MG ORAL TABLET 1 by mouth every day CLOPIDOGREL BISULFATE 84674538671 Active Snehal Gutierrez MD Active TOPAMAX 25 MG ORAL TABLET Take one tablet by mouth twice a day. TOPAMAX 25 MG ORAL TABLET 740602 TOPIRAMATE Inactive ATIVAN 1 MG ORAL TABLET Take 1-2 tablets by mouth daily as needed for anxiety. ATIVAN 1 MG ORAL TABLET LORAZEPAM Inactive ATIVAN 2 MG ORAL TABLET Take 1 tablet by mouth daily as needed for anxiety. ATIVAN 2 MG ORAL TABLET LORAZEPAM Inactive LANTUS SOLOSTAR 100 UNIT/ML SUBCUTANEOUS SOLUTION PEN-INJECTOR 42 unit sq daily LANTUS SOLOSTAR 100 UNIT/ML SUBCUTANEOUS SOLUTION PEN-INJECTOR INSULIN GLARGINE Inactive AZITHROMYCIN 250 MG ORAL TABLET 2 tablets by mouth on day one then one tablet by mouth each day for a total of 5 days AZITHROMYCIN 250 MG ORAL TABLET 464211 AZITHROMYCIN Inactive CEFDINIR 300 MG ORAL CAPSULE 2 tablets by mouth every day for 10 days CEFDINIR 300 MG ORAL CAPSULE 738793 CEFDINIR Inactive TYLENOL WITH CODEINE #3 300-30 [...] a day. GABITRIL 4 MG ORAL TABLET 5208774 TIAGABINE HCL Inactive DIVALPROEX SODIUM ER 500 MG ORAL TABLET EXTENDED RELEASE 24 HOUR Takes 3 tablets in the morning and take at bedtime DIVALPROEX SODIUM ER 500 MG ORAL TABLET EXTENDED RELEASE 24 HOUR DIVALPROEX SODIUM Inactive GABAPENTIN 300 MG ORAL CAPSULE take three tablets Every Morning and three tablets take at bedtime GABAPENTIN 300 MG ORAL CAPSULE 057995 GABAPENTIN Inactive GLIPIZIDE 10 MG ORAL TABLET Takes one tablet Twice a Day GLIPIZIDE 10 MG ORAL TABLET 940230 GLIPIZIDE Inactive JANUVIA 100 MG ORAL TABLET 1 tab By Mouth daily JANUVIA 100 MG ORAL TABLET SITAGLIPTIN PHOSPHATE Inactive LISINOPRIL 10 MG ORAL TABLET 1 by mouth every day LISINOPRIL 10 MG ORAL TABLET 640548 LISINOPRIL Inactive NORTRIPTYLINE HCL 25 MG ORAL CAPSULE Take one tablet By Mouth take at bedtime NORTRIPTYLINE HCL 25 MG ORAL CAPSULE 758993 NORTRIPTYLINE HCL Inactive NORTRIPTYLINE HCL 25 MG ORAL CAPSULE Take 2 capsules by mouth at bedtime as needed for sleep. NORTRIPTYLINE HCL 25 MG ORAL CAPSULE 051584 NORTRIPTYLINE HCL Inactive PAROXETINE HCL 20 MG ORAL TABLET Take 3 tablets By Mouth Every Morning PAROXETINE HCL 20 MG ORAL TABLET 8667020 PAROXETINE HCL Inactive PRAZOSIN HCL 2 MG ORAL CAPSULE Take 2 tablets By Mouth take at bedtime PRAZOSIN HCL 2 MG ORAL CAPSULE 242793 PRAZOSIN HCL Inactive TRAZODONE HCL 300 MG ORAL TABLET 1 by mouth every night TRAZODONE HCL 300 MG ORAL TABLET 665300 TRAZODONE HCL Inactive DIAZEPAM 10 MG TABS TAKE 1/2 TO 1 TABLET BY MOUTH DAILY NEEDED FOR ANXIETY DIAZEPAM 10 MG TABS 764847 DIAZEPAM Inactive TOPAMAX 25 MG ORAL TABLET Take one tablet by mouth twice a day. TOPIRAMATE 73963316874 No Longer Active Lele Suárez MD Active ATIVAN 1 MG ORAL TABLET Take 1-2 tablets by mouth daily as needed for anxiety. LORAZEPAM 65270068860 No Longer Active Lele Suárez MD Active ATIVAN 2 MG ORAL TABLET Take 1 tablet by mouth daily as needed for anxiety. LORAZEPAM 03697643586 No Longer Active Lele Suárez MD Active LANTUS SOLOSTAR 100 UNIT/ML SUBCUTANEOUS SOLUTION PEN-INJECTOR 42 unit sq daily INSULIN GLARGINE 83874831542 No Longer Active Snehal Gutierrez MD Active AZITHROMYCIN 250 MG ORAL TABLET 2 tablets by mouth on day one then one tablet by mouth each day for a total of 5 days AZITHROMYCIN 59830201270 No Longer Active Snehal Gutierrez MD Active CEFDINIR 300 MG ORAL CAPSULE 2 tablets by mouth every day for 10 days CEFDINIR 98998262739 No Longer Active Joe Mcmullen MD Active TYLENOL WITH CODEINE #3 300-30 MG ORAL TABLET 1 by mouth every 8 hours as needed ACETAMINOPHEN-CODEINE 33114013625 No Longer Active Snehal Gutierrez MD Active VIIBRYD 20 MG ORAL TABLET Take 1 tablet by mouth daily. VILAZODONE HCL 25073742266 No Longer Active Lele Suárez MD Active GABITRIL 4 MG ORAL TABLET Take one tablet by mouth twice a day. TIAGABINE HCL 95713903024 No Longer Active Lele Suárez MD Active DIVALPROEX SODIUM ER 500 MG ORAL TABLET EXTENDED RELEASE 24 HOUR Takes 3 tablets in the morning and take at bedtime DIVALPROEX SODIUM 38877972218 No Longer Active Lele Suárez MD Active GABAPENTIN 300 MG ORAL CAPSULE take three tablets Every Morning and three tablets take at bedtime GABAPENTIN 39955860543 No Longer Active Lele Suárez MD Active GLIPIZIDE 10 MG ORAL TABLET Takes one tablet Twice a Day GLIPIZIDE 56520056454 No Longer Active Paula Clay MD Active JANUVIA 100 MG ORAL TABLET 1 tab By Mouth daily SITAGLIPTIN PHOSPHATE 55375221825 No Longer Active Snehal Gutierrez MD Active LISINOPRIL 10 MG ORAL TABLET 1 by mouth every day LISINOPRIL 76740576801 No Longer Active Snehal Gutierrez MD Active NORTRIPTYLINE HCL 25 MG ORAL CAPSULE Take 2 capsules by mouth at bedtime as needed for sleep. NORTRIPTYLINE HCL 99028361051 No Longer Active Lele Suárez MD Active NORTRIPTYLINE HCL 25 MG ORAL CAPSULE Take one tablet By Mouth take at bedtime NORTRIPTYLINE HCL 68461648934 No Longer Active Paula Clay MD Active PAROXETINE HCL 20 MG ORAL TABLET Take 3 tablets By Mouth Every Morning PAROXETINE HCL 82107294707 No Longer Active Lele Suárez MD Active PRAZOSIN HCL 2 MG ORAL CAPSULE Take 2 tablets By Mouth take at bedtime PRAZOSIN HCL 08393011826 No Longer Active Juliann Worley MD (res) Active TRAZODONE HCL 300 MG ORAL TABLET 1 by mouth every night TRAZODONE HCL 56811942237 No Longer Active Lele Suárez MD Active DIAZEPAM 10 MG TABS TAKE 1/2 TO 1 TABLET BY MOUTH DAILY NEEDED FOR ANXIETY DIAZEPAM 99092606374 No Longer Active Lele Suárez MD Active Vital Signs Date Name Value Unit Range Description blood pressure, diastolic 90 mm[Hg] BP [place] blood pressure, systolic 122 mm[Hg] BP sys height E&M 72 [in_us] Bdy height pulse rate E&M 114 /min Heart rate weight E&M 295 [lb_av] Weight Measured blood pressure, diastolic 81 mm[Hg] BP [place] [...] sodium, serum 134 mmol/L 134-144 Lab Report: [id number] 7+Alc-Unbund, Amphetamines Confirmation, Ur, 763213 7 ... - Toxicology benzodiazepine screen, urine Positive Dixhmf=910 Lab Report: TSH+Free T4, Comp. Metabolic Panel (14), Lipid Panel, Hemogl ... - Chemistry thyroid stimulating hormone, serum 0.989 u[iU]/mL 0.450-4.500 Lab Report: [id number] 7+Alc-Unbund, Amphetamines Confirmation, Ur, 543852 7 ... - Toxicology amphetamine screen, urine Negative Cyevvx=0894 Lab Report: TSH+Free T4, Comp. Metabolic Panel (14), Lipid Panel, Hemogl ... - Chemistry very low density lipoproteins 60 mg/dL 5-40 Lab Report: [id number] 7+Alc-Unbund, Amphetamines Confirmation, Ur, 935827 7 ... - Chemistry cannabinoid screen, urine Negative ng/mL Cutoff=50 Lab Report: TSH+Free T4, Comp. Metabolic Panel (14), Lipid Panel, Hemogl ... - Chemistry carbon dioxide, venous blood 22 mmol/L 20-29 Lab Report: [id number] 7+Alc-Unbund, Amphetamines Confirmation, Ur, 584256 7 ... - Toxicology phencyclidine screen, urine Negative ng/mL Cutoff=25 Lab Report: TSH+Free T4, Comp. Metabolic Panel (14), Lipid Panel, Hemogl ... - Chemistry chloride, serum 97 mmol/L 96-106 triglyceride, serum, fasting 298 mg/dL 0-149 calcium, serum 10.3 mg/dL 8.7-10.2 urea nitrogen, blood 15 mg/dL 6-24 alanine aminotransferase (SGPT), serum 50 U/L 0-44 Office Visit: Acute Visit [facility] - Chemistry blood glucose, fasting 177 [...] of total hemoglobin 9.3 % Lab Report: [id number] 7+Alc-Unbund, Amphetamines Confirmation, Ur, [id number] 7 ... - Toxicology barbiturates screen, urine Negative Eeqlbd=578 cocaine, urine Negative Uajjnz=880 Lab Report: TSH+Free T4, Comp. Metabolic Panel [...] mL/min/1.73m2 >59 albumin/globulin ratio, serum 1.9 1.2-2.2 creatinine, serum 1.06 mg/dL 0.76-1.27 cholesterol, serum 202 mg/dL [phone]/09/07 bilirubin, serum, total 0.3 mg/dL 0.0-1.2 Office Visit: Adult Followup 2 - Chemistry blood glucose, random 202 mg/dL Lab Report: TSH+Free T4, Comp. Metabolic Panel (14), Lipid Panel, Hemogl ... - Chemistry aspartate aminotransferase (SGOT), serum 32 U/L 0-40 potassium, serum 4.6 mmol/L 3.5-5.2 albumin, serum 4.7 g/dL 3.5-5.5 Lab Report: [id number] 7+Alc-Unbund, Amphetamines Confirmation, Ur, [id number] 7 ... - Toxicology opiates, urine, semiquantitative See Final Results Cuqpgb=546 Encounters Date Encounter Provider Code Facility 14:36:35 CDT Est Patient Exp Problem - 85323 Lele Suárez MD CPT-04781 [facility] 14:28:44 GLASS UNLOADING EQUIPMENT TENDER Est Patient Exp Problem - 14751 Lele Suárez MD CPT-87367 [facility] 14:43:22 GLASS UNLOADING EQUIPMENT TENDER Est Patient Exp Problem - 71997 Lele Suárez MD CPT-57721 [facility] 13:05:06 GLASS UNLOADING EQUIPMENT TENDER Est Patient Exp Problem - 18020 Snehal Gutierrez MD CPT-32992 [facility] 11:06:52 GLASS UNLOADING EQUIPMENT TENDER Est Patient Detailed - 48636 Snehal Gutierrez MD CPT-10288 [facility] 14:01:37 GLASS UNLOADING EQUIPMENT TENDER Est Patient Exp Problem - 93100 Lele Suárez MD CPT-28070 [facility] 16:17:36 GLASS UNLOADING EQUIPMENT TENDER Est Patient Exp Problem - 85797 Joe Mcmullen MD CPT-80561 [facility] 15:02:34 GLASS UNLOADING EQUIPMENT TENDER Est Patient Exp Problem - 37065 Lele Suárez MD CPT-51903 [facility] 17:20:36 GLASS UNLOADING EQUIPMENT TENDER Est Patient Exp Problem - 73745 Delicia Meraz MD (res) CPT-59420 [facility] 16:35:53 GLASS UNLOADING EQUIPMENT TENDER Est Patient Exp Problem - 50551 Bandar Garcia MD R3 CPT-15191 [facility] 10:34:23 GLASS UNLOADING EQUIPMENT TENDER Est Patient Exp Problem - 73136 Juliann Worley MD (res) CPT-64432 [facility] 15:34:44 GLASS UNLOADING EQUIPMENT TENDER Est Patient Exp Problem - 21534 Lele Suárez MD CPT-40330 [facility] 15:35:27 GLASS UNLOADING EQUIPMENT TENDER Est Patient Exp Problem - 63996 Juliann Worley MD (res) CPT-00867 [facility] 15:12:46 CDT Est Patient Exp Problem - 66193 Lele Suárez MD CPT-59573 [facility] 13:08:51 CDT Est Patient Detailed - 20845 Lele Suárez MD CPT-13963 [facility] 23:10:36 CDT Est Patient Detailed - 53097 Paula Clay MD CPT-31523 [facility] 14:28:27 CDT Est Patient Exp Problem - 50292 Oscar Nielson MD (res) CPT-88042 [facility] 15:02:09 CDT Est Patient Exp Problem - 44756 Paula Clay MD CPT-91715 [facility] 10:56:53 CDT New Patient Detailed - 69137 Pepito Boyd MD CPT-83859 [facility] Practice Procedures Code Procedure Name Date Entry Date Standard Description CPT-18996 Psychotherapy 45 (38-52*) min - 02317 (with patient and/or family member) 14:06:54 CDT CPT-55104 Psychotherapy 30 (16-37*) min - 79539 (with patient and/or family member) 13:25:55 GLASS UNLOADING EQUIPMENT TENDER CPT-25953 Psychotherapy 45 (38-52*) min - 20718 (with patient and/or family member) 14:03:04 GLASS UNLOADING EQUIPMENT TENDER CPT-47213 Psychotherapy 45 (38-52*) min - 67314 (with patient and/or family member) 09:39:01 GLASS UNLOADING EQUIPMENT TENDER CPT-83723 [facility] - 90370 14:47:42 GLASS UNLOADING EQUIPMENT TENDER CPT-41465 HEMOGLOBIN A1C - In House 10:34:23 GLASS UNLOADING EQUIPMENT TENDER CPT-09178 Diagnostic evaluation (no medical) - 86354 08:53:47 GLASS UNLOADING EQUIPMENT TENDER CPT-87209 Glucose Stick 15:55:29 GLASS UNLOADING EQUIPMENT TENDER CPT-78141 Diagnostic evaluation with medical - 19401 13:48:41 CDT
--- NOTE | 2018-11-16 17:00 | NUR ---
Pt informed of hospital & ER being full & work up to be initiated in lobby. Pt immediately became upset stating "I guess I don't get any pain medications." Informed him of need to be monitored with narcotic administration. Then declined to have any futher eval done. Informed of need for AMA signature. Pt got up from & walked out of ED. ER CERAMIST & MD notified.
[2018-11-16] MEDS ORDERED: MORPHINE SULFATE INJ 4 MG/ML INJ 1ML IV STA (17:01)
[2018-11-16] MEDS ORDERED: ONDANSETRON HCL INJ 2MG/ML 2ML 2 MG/ML VIAL IV STA (17:01)
[2018-11-16] MEDS ORDERED: ASPIRIN 81 MG CHEW TAB PO ONE (17:15)
== END 2018-11-16 17:07 | disposition left against medical advice (07) ==
LOC: ER 16:33
DX: R07.89 Other chest pain (principal)
CPT/HCPCS: 99281

== ENCOUNTER 2019-02-18 01:13 | Emergency (ER) | payer BC, MEDICARE ==
[~2019-02-18] VITALS: Ht 182.9 cm; Wt 133.8 kg
--- OUTSIDE RECORDS SUMMARY | 2019-02-18 01:18 | XMS REPORT | Clinical Summary ---
Author Author [facility] Organization [facility] Address Unknown Phone Unavailable Care Team Providers Care Energy Scheduler Name Role Phone Paula lCay MD PCP Allergies Comments Active Allergy Reactions Severity Noted Date Cefdinir Rash Low 08/01/2018 Codeine Rash Low 04/29/2018 Hydrocodone 08/01/2018 Methylprednisolone 01/22/2018 Penicillins 01/22/2018 Ketorolac 01/22/2018 Medications End Date Status Medication Sig Dispensed Refills Start Date Active lisinopril Take 1 tablet 30 tablet 0 (PRINIVIL,ZESTRIL) 10 mg (10 mg total) 8 tablet by mouth daily for 30 days. Active nortriptyline (PAMELOR) Take 50 mg by 0 50 MG capsule mouth nightly. Active sitaGLIPtin (JANUVIA) 100 Take 100 mg 0 MG tablet by mouth every morning. Active PARoxetine (PAXIL) 30 MG Take 30 mg by 0 tablet mouth every morning. Active diazePAM (VALIUM) 10 MG Take 10 mg by 0 tablet mouth 2 (two) times a day. Active metFORMIN (GLUCOPHAGE) Take 1,000 mg 0 1,000 mg tablet by mouth 2 (two) times a day with meals. This med is on hold until 08/02/18 am Active meclizine (ANTIVERT) 25 Take 25 mg by 0 mg tablet mouth 3 (three) times a day. Active doxepin (SINEquan) 25 MG Take 50 mg by 0 capsule mouth nightly. Active apixaban (ELIQUIS) 5 mg Take 5 mg by 0 tablet mouth 2 (two) times a day. Active insulin GLARGINE (LANTUS) Inject 38 0 100 unit/mL injection Units under (vial) the skin 2 (two) times a day. Active insulin ASPART (NovoLOG) Inject 28 0 100 unit/mL injection Units under the skin 3 (three) times a day before meals. Active gabapentin (NEURONTIN) Take 900 mg 0 300 mg capsule by mouth 3 (three) times a day. Active atorvastatin (LIPITOR) 80 Take 80 mg by 0 MG tablet mouth daily. Active clopidogrel (PLAVIX) 75 Take 75 mg by 0 mg tablet mouth nightly. Active lisinopril Take 10 mg by 0 (PRINIVIL,ZESTRIL) 10 mg mouth every tablet morning. Active AFLURIA QUAD 1328-5504, ADM 0.5ML IM 0 PF, 60 mcg/0.5 mL syringe UTD 8 Active tiaGABine (GABITRIL) 4 MG Take 1 tablet 0 tablet by mouth 2 8 (two) times a day. Active VIIBRYD 20 mg tablet Take 1 tablet 1 by mouth 8 daily. Active traMADol (ULTRAM) 50 mg Take 1 tablet 0 tablet by mouth 8 every 6 (six) hours as needed. Active oxyCODone (ROXICODONE) 5 Take 1 tablet 0 MG immediate release by mouth 8 tablet every 6 (six) hours as needed. Active metoprolol succinate XL Take 37.5 mg 0 (TOPROL-XL) 25 mg 24 hr by mouth 8 tablet nightly. Active isosorbide mononitrate Take 1 tablet 1 (IMDUR) 30 MG 24 hr by mouth 8 tablet every morning. Active azithromycin (ZITHROMAX) Take 1 tablet 0 250 MG tablet by mouth 8 daily. FOR 5 DAYS 04/14/2018 Discontinued prazosin (MINIPRESS) 2 MG Take 4 mg by 0 capsule mouth nightly. 04/14/2018 Discontinued PARoxetine (PAXIL) 20 MG Take 60 mg by 0 tablet mouth every morning. 04/14/2018 Discontinued lisinopril Take 10 mg by 0 (PRINIVIL,ZESTRIL) 10 mg mouth daily. tablet 04/27/2018 Discontinued divalproex (DEPAKOTE) 500 Take 1,500 mg 0 MG 24 hr tablet by mouth 2 (two) times a day. 03/26/2018 Discontinued divalproex (DEPAKOTE) 500 Take 1,500 mg 0 MG 24 hr tablet by mouth nightly. 03/26/2018 Discontinued loratadine (CLARITIN) 10 Take 10 mg by 0 mg tablet mouth daily. 04/14/2018 Discontinued metoprolol tartrate Take 25 mg by 0 (LOPRESSOR) 25 mg tablet mouth daily. 04/14/2018 Discontinued traZODone (DESYREL) 100 Take 300 mg 0 MG tablet by mouth nightly. 04/14/2018 Discontinued atorvastatin (LIPITOR) 40 Take 40 mg by 0 MG tablet mouth nightly. 03/10/2018 Discontinued glipiZIDE (GLUCOTROL) 10 Take 10 mg by 0 MG tablet mouth 2 (two) times a day before meals. 02/26/2018 aspirin (ECOTRIN) 81 MG Take 1 tablet 30 tablet 0 enteric coated tablet (81 mg total) 8 by mouth daily for 30 days. 02/26/2018 clopidogrel (PLAVIX) 75 Take 1 tablet 30 tablet 0 mg tablet (75 mg total) 8 by mouth daily for 30 days. 02/26/2018 nitroglycerin (NITROSTAT) Place 1 90 tablet 12 0.4 MG SL tablet tablet (0.4 8 mg total) under the tongue every 5 (five) minutes as needed for chest pain for up to 30 days. 03/10/2018 Discontinued metFORMIN (GLUCOPHAGE) Take 1,000 mg 0 500 mg tablet by mouth 2 (two) times a day with meals. 03/26/2018 Discontinued nortriptyline (PAMELOR) Take 25 mg by 0 25 MG capsule mouth nightly. 03/10/2018 Discontinued gabapentin (NEURONTIN) Take 100 mg 0 100 mg capsule by mouth 3 (three) times a day. 03/12/2018 linezolid (ZYVOX) 600 mg Take 1 tablet 20 tablet 0 tablet (600 mg 8 total) by mouth 2 (two) times a day for 10 days. 04/14/2018 Discontinued clopidogrel (PLAVIX) 75 Take 75 mg by 0 mg tablet mouth daily. 03/10/2018 Discontinued doxazosin (CARDURA) 2 MG Take 2 mg by 0 tablet mouth nightly. 03/26/2018 Discontinued gabapentin (NEURONTIN) Take 1 90 capsule 0 300 mg capsule capsule (300 8 mg total) by mouth 3 (three) times a day for 30 days. 04/09/2018 metFORMIN (GLUCOPHAGE) Take 1 tablet 60 tablet 0 1,000 mg tablet (1,000 mg 8 total) by mouth 2 (two) times a day with meals for 30 days. 03/30/2018 Discontinued glipiZIDE (GLUCOTROL) 10 Take 1 tablet 60 tablet 0 MG tablet (10 mg total) 8 by mouth 2 (two) times a day with meals for 30 days. 03/26/2018 Discontinued insulin NPH (HumuLIN-N) Inject 15 10 mL 12 100 unit/mL injection Units under 8 the skin 2 (two) times a day before meals for 30 days. 03/26/2018 Discontinued HYDROcodone-acetaminophen Take 1 tablet 50 tablet 0 (NORCO) 5-325 mg per by mouth 8 tablet every 6 (six) hours as needed for moderate pain for up to 20 days. Max Daily Amount: 4 tablets 03/26/2018 Discontinued linezolid (ZYVOX) 600 mg Take 600 mg 0 tablet by mouth 2 (two) times a day. 03/18/2018 Discontinued HYDROcodone-acetaminophen Take 1 tablet 50 tablet 0 (NORCO) 10-325 mg per by mouth 8 tablet every 6 (six) hours as needed for moderate pain for up to 15 days. Max Daily Amount: 4 tablets 04/14/2018 Discontinued aspirin 81 mg chewable Chew 1 tablet 30 tablet 0 tablet (81 mg total) 8 daily for 30 days. 03/26/2018 Discontinued HYDROcodone-acetaminophen Take 1 tablet 50 tablet 0 (NORCO) 10-325 mg per by mouth 8 tablet every 6 (six) hours as needed for moderate pain for up to 15 days. Max Daily Amount: 4 tablets 03/26/2018 Discontinued acetaminophen-codeine Take 1-2 15 tablet 0 (TYLENOL WITH CODEINE #3) tablets by 8 300-30 mg per tablet mouth every 6 (six) hours as needed for moderate pain for up to 15 days. 04/07/2018 traMADol (ULTRAM) 50 mg Take 1 tablet 15 tablet 0 tablet (50 mg total) 8 by mouth every 6 (six) hours as needed for moderate pain for up to 15 days. 03/26/2018 Discontinued acetaminophen-codeine Take 1-2 15 tablet 0 (TYLENOL WITH CODEINE #3) tablets by 8 300-30 mg per tablet mouth every 6 (six) hours as needed for moderate pain for up to 15 days. 04/14/2018 Discontinued gabapentin (NEURONTIN) Take 900 mg 0 300 mg capsule by mouth 3 (three) times a day. Morning and evening 03/30/2018 Discontinued gabapentin (NEURONTIN) Take 600 mg 0 300 mg capsule by mouth nightly. 04/14/2018 Discontinued nortriptyline (PAMELOR) Take 50 mg by 0 50 MG capsule mouth nightly. 03/30/2018 Discontinued acetaminophen-codeine Take 1-2 15 tablet 0 (TYLENOL WITH CODEINE #3) tablets by 8 300-30 mg per tablet mouth every 6 (six) hours as needed for moderate pain for up to 5 days. 04/27/2018 Discontinued valproic acid (DEPAKENE) Take 1,500 mg 0 250 mg capsule by mouth every morning. 04/12/2018 Discontinued valproic acid (DEPAKENE) Take 500 mg 0 250 mg capsule by mouth nightly. 04/14/2018 Discontinued doxazosin (CARDURA) 1 MG Take 3 90 tablet 0 tablet tablets (3 mg 8 total) by mouth daily for 30 days. 04/14/2018 Discontinued gabapentin (NEURONTIN) Take 3 270 capsule 0 300 mg capsule capsules (900 8 mg total) by mouth 3 (three) times a day for 30 days. 04/14/2018 Discontinued atorvastatin (LIPITOR) 40 Take 1 tablet 30 tablet 0 MG tablet (40 mg total) 8 by mouth nightly for 30 days. 04/14/2018 Discontinued metoprolol tartrate Take 1 tablet 30 tablet 0 (LOPRESSOR) 25 mg tablet (25 mg total) 8 by mouth nightly for 30 days. 04/14/2018 Discontinued HYDROcodone-acetaminophen Take 1 tablet 20 tablet 0 (NORCO) 10-325 mg per by mouth 8 tablet every 4 (four) hours as needed for moderate pain for up to 15 days. Max Daily Amount: 6 tablets 04/14/2018 Discontinued aspirin 81 mg chewable Chew 1 tablet 30 tablet 0 tablet (81 mg total) 8 daily for 30 days. 04/14/2018 Discontinued clopidogrel (PLAVIX) 75 Take 1 tablet 30 tablet 0 mg tablet (75 mg total) 8 by mouth nightly for 30 days. 04/14/2018 Discontinued PARoxetine (PAXIL) 30 MG Take 2 60 tablet 0 tablet tablets (60 8 mg total) by mouth every morning for 30 days. 04/14/2018 Discontinued traZODone (DESYREL) 300 Take 1 tablet 30 tablet 0 MG tablet (300 mg 8 total) by mouth nightly for 30 days. 04/14/2018 Discontinued nortriptyline (PAMELOR) Take 1 30 capsule 0 50 MG capsule capsule (50 8 mg total) by mouth nightly for 30 days. 04/14/2018 Discontinued nitroglycerin (NITROSTAT) Place 1 90 tablet 12 0.4 MG SL tablet tablet (0.4 8 mg total) under the tongue every 5 (five) minutes as needed for chest pain for up to 30 days. 05/02/2018 Discontinued doxazosin (CARDURA) 1 MG Take 3 90 tablet 0 tablet tablets (3 mg 8 total) by mouth daily for 30 days. 04/27/2018 Discontinued gabapentin (NEURONTIN) Take 3 270 capsule 0 300 mg capsule capsules (900 8 mg total) by mouth 3 (three) times a day for 30 days. 05/14/2018 atorvastatin (LIPITOR) 40 Take 1 tablet 30 tablet 0 MG tablet (40 mg total) 8 by mouth nightly for 30 days. 05/14/2018 metoprolol tartrate Take 1 tablet 30 tablet 0 (LOPRESSOR) 25 mg tablet (25 mg total) 8 by mouth nightly for 30 days. 05/15/2018 aspirin 81 mg chewable Chew 1 tablet 30 tablet 0 tablet (81 mg total) 8 daily for 30 days. 05/14/2018 clopidogrel (PLAVIX) 75 Take 1 tablet 30 tablet 0 mg tablet (75 mg total) 8 by mouth nightly for 30 days. 05/15/2018 PARoxetine (PAXIL) 30 MG Take 2 60 tablet 0 tablet tablets (60 8 mg total) by mouth every morning for 30 days. 04/28/2018 Discontinued traZODone (DESYREL) 300 Take 1 tablet 30 tablet 0 MG tablet (300 mg 8 total) by mouth nightly for 30 days. 04/28/2018 Discontinued nortriptyline (PAMELOR) Take 1 30 capsule 0 50 MG capsule capsule (50 8 mg total) by mouth nightly for 30 days. 05/14/2018 nitroglycerin (NITROSTAT) Place 1 90 tablet 12 0.4 MG SL tablet tablet (0.4 8 mg total) under the tongue every 5 (five) minutes as needed for chest pain for up to 30 days. 05/13/2018 Discontinued sennosides-docusate Take 1 tablet 28 tablet 0 sodium (SENOKOT-S) 8.6-50 by mouth 2 8 mg per tablet (two) times a day as needed for constipation for up to 14 days. 04/29/2018 Discontinued acetaminophen-codeine Take 1 tablet 28 tablet 0 (TYLENOL WITH CODEINE #3) by mouth 8 300-30 mg per tablet every 4 (four) hours as needed for moderate pain for up to 7 days. 07/14/2018 Discontinued sitaGLIPtin (JANUVIA) 50 Take 50 mg by 0 MG tablet mouth nightly. 08/01/2018 Discontinued trimethobenzamide (TIGAN) Take 300 mg 0 300 mg capsule by mouth daily. 06/01/2018 tamsulosin (FLOMAX) 0.4 Take 1 30 capsule 0 mg capsule capsule (0.4 8 mg total) by mouth daily for 30 days. 05/13/2018 Discontinued ranolazine (RANEXA) 500 Take 1 tablet 60 tablet 0 MG 12 hr ER tablet (500 mg 8 total) by mouth 2 (two) times a day for 30 days. 06/12/2018 ranolazine (RANEXA) 500 Take 1 tablet 60 tablet 0 MG 12 hr ER tablet (500 mg 8 total) by mouth 2 (two) times a day for 30 days. 07/14/2018 Discontinued cyclobenzaprine Take 1 tablet 20 tablet 0 (FLEXERIL) 10 mg tablet (10 mg total) 8 by mouth 2 (two) times a day as needed for muscle spasms for up to 30 days. 07/14/2018 Discontinued acetaminophen-codeine Take 1-2 10 tablet 0 (TYLENOL WITH CODEINE #3) tablets by 8 300-30 mg per tablet mouth every 6 (six) hours as needed for moderate pain for up to 3 days. 08/01/2018 Discontinued gabapentin (NEURONTIN) Take 300 mg 0 300 mg capsule by mouth. 08/01/2018 Discontinued diazePAM (VALIUM) 10 MG TAKE 1/2 TO 1 0 tablet TABLET BY MOUTH DAILY NEEDED FOR ANXIETY Active Problems Problem Noted Date Fainting spell 05/01/2018 Syncope 04/27/2018 Anxiety 04/27/2018 PTSD (post-traumatic stress disorder) 04/27/2018 Chest pain 04/13/2018 CKD stage 2 due to type 2 diabetes mellitus 03/09/2018 Uncontrolled type 2 diabetes mellitus 03/02/2018 Chest pain, rule out acute myocardial infarction 03/01/2018 Acute coronary insufficiency 01/24/2018 COPD (chronic obstructive pulmonary disease) Resolved Problems Problem Noted Date Resolved Date Chest pain 01/22/2018 03/30/2018 Encounters Care Team Description Date Type Specialty Braxton Ramirez MD Syncope, unspecified syncope type (Primary Dx) 08/19/2018 Emergency Emergency Medicine 08/19/2018 Julio Dueñas MD Thoracic back sprain, initial encounter (Primary Dx) 08/17/2018 Emergency Emergency Medicine Cal Johnson MD Dehydration (Primary Dx); Near syncope; Right wrist pain; Fall from standing, initial encounter 08/01/2018 Emergency Emergency Medicine Gagan Wilks MD Nwachukwu, Ernest Chukwuemeka Jr., MD Drug-seeking behavior (Primary Dx); Acute generalized abdominal pain 07/18/2018 Emergency Emergency Medicine Tai Rivero MD Syncope, unspecified syncope type (Primary Dx); Drug-seeking behavior 07/14/2018 Emergency Emergency Medicine Mario Lovelace MD Syncope, unspecified syncope type (Primary Dx) 07/14/2018 Emergency Emergency Medicine 07/14/2018 Suzanna Medina MD Chronic back pain, unspecified back location, unspecified back pain laterality (Primary Dx) 07/13/2018 Emergency Emergency Medicine - 07/14/2018 Tai Rivero MD Back spasm (Primary Dx) 06/23/2018 Emergency Emergency Medicine Mark Garcia Jr., MD Syncope, unspecified syncope type (Primary Dx); Atypical chest pain 06/03/2018 Emergency Emergency Medicine - 06/04/2018 Daniel Del Angel MD 06/02/2018 Emergency Emergency Medicine Gagan Wilks MD Syncope, unspecified syncope type (Primary Dx); Acute chest pain; Drug-seeking behavior 05/20/2018 Emergency Emergency Medicine Suzanna Saavedra MD Teqwimuah, Remy, DO Chest pain, unspecified type (Primary Dx); Lightheaded; Hyperglycemia; Precordial pain 05/12/2018 Emergency General Internal Medicine - 05/13/2018 Braxton Ramirez MD Chest pain, unspecified type (Primary Dx); Essential hypertension; Drug-seeking behavior 05/06/2018 Emergency Emergency Medicine Bridger Scales Jr., MD Syncope and collapse (Primary Dx) 05/03/2018 Emergency Emergency Medicine - 05/04/2018 Bridger Scales Jr., MD Roberts, Matthew Thomas, DO Abouelseoud, Tanseem Hamad Mohamed A, MD Syncope, unspecified syncope type (Primary Dx); Drug-seeking behavior 05/01/2018 Emergency General Internal Medicine - 05/02/2018 Elia Sagastume DO Dizziness (Primary Dx) 04/29/2018 Emergency Emergency Medicine Kai Thomason MD Bavare, Arusha Amod, MD Syncope, unspecified syncope type (Primary Dx); Chronic bilateral back pain, unspecified back location; Dehydration 04/27/2018 Emergency General Internal Medicine - 04/28/2018 Julio Rocha MD Palpitations (Primary Dx); Lumbar radiculopathy, acute 04/22/2018 Emergency Emergency Medicine - 04/23/2018 Daniel Del Angel MD Syncope, unspecified syncope type (Primary Dx) 04/21/2018 Emergency Emergency Medicine - 04/22/2018 04/21/2018 Emergency Emergency Medicine Juan Lorenzo MD Bavare, Arusha Amod, MD Roberts, Matthew Thomas, DO Chest pain, unspecified type (Primary Dx) 04/12/2018 Emergency General Internal Medicine - 04/14/2018 Daniel Del Angel MD Chest pain, unspecified type (Primary Dx); Near syncope 04/11/2018 Emergency Emergency Medicine 04/07/2018 Clinical Home Health Services Support Josh Berumen, PhD 04/07/2018 Telephone Home Health Services Josh Berumen, PhD 04/06/2018 Telephone Home Health Services Rehan Padgett DO Bavare, Arusha Amod, MD Abouelseoud, Tanseem Hamad Mohamed A, MD Chest pain, unspecified type (Primary Dx); Dizziness 03/29/2018 Emergency General Internal Medicine - 03/30/2018 Julio Rocha MD Hypoglycemia (Primary Dx) 03/28/2018 Emergency Emergency Medicine Kel Betts MD Fall, initial encounter (Primary Dx); Acute midline low back pain, with sciatica presence unspecified; Acute knee pain, unspecified laterality 03/26/2018 Emergency Emergency Medicine Josh Berumen, PhD 03/25/2018 Telephone Home Health Services Josh Berumen, PhD 03/24/2018 Telephone Home Health Services Julio Rocha MD Encounter for post surgical wound check (Primary Dx) 03/22/2018 Emergency Emergency Medicine - 03/23/2018 Keesha Watts DO Joglekar, Swati, MD Bavare, Arusha Amod, MD Chest pain, unspecified type (Primary Dx) 03/17/2018 Emergency General Internal Medicine - 03/18/2018 Daniel Del Angel MD Encounter for post surgical wound check (Primary Dx) 03/14/2018 Emergency Emergency Medicine Kamla Luis MD 03/03/2018 Anesthesia General Surgery Event Lars Duke MD Debridement THIGH-LEFT 03/03/2018 Surgery General Surgery Julio Rocha MD Li, Xiao Hong, MD Bavare, Arusha Amod, MD Roberts, Matthew Thomas, DO Chest pain, rule out acute myocardial infarction (Primary Dx); Staphylococcal infection of skin; Uncontrolled type 2 diabetes mellitus with hyperglycemia, without long-term current use of insulin 02/28/2018 Hospital General Surgery - Encounter 03/10/2018 after 02/17/2018 Immunizations Name Dates Previously Given Next Due FLUCELVAX QUAD PF (0.5mL 04/28/2018 (Deferred: ) syringe) Pneumococcal Conjugate 03/18/2018 (Deferred: ) 13-Valent Family History Medical History Relation Name Comments Heart disease Father Heart disease Mother Relation Name Status Comments Father Mother Alive Social History Date Tobacco Use Types Packs/Day Years Used Former Smoker Cigarettes Smokeless Tobacco: Chew Current User Comments: several months Alcohol Use Drinks/Week oz/Week Comments No socially Sex Assigned at Date Recorded Not on file Industry Job Start Date Occupation Not on file Not on file Not on file Travel End Travel History Travel Start No recent travel history available. Last Filed Vital Signs Time Taken Vital Sign Reading 08/19/2018 12:16 PM [employer] Blood Pressure 124/78 08/19/2018 12:16 PM [employer] Pulse 76 08/19/2018 12:16 PM [employer] Temperature 36.4 C (97.5 F) 08/19/2018 12:16 PM [employer] Respiratory Rate 20 08/19/2018 12:16 PM [employer] Oxygen Saturation 96% - Inhaled Oxygen - Concentration 08/19/2018 12:18 PM [employer] Weight 140 kg (308 lb 10.3 oz) 08/19/2018 12:18 PM [employer] Height 182.9 cm (6') 08/19/2018 12:18 PM [employer] TE[employer] Body Mass Index 41.86 Plan of Treatment Health Maintenance Due Date Last Done Comments DIABETIC RETINAL EYE EXAM 1971 DIABETIC FOOT EXAM 1981 INFLUENZA VACCINE 03/10/2019 Implants Device Identifier Shelf Expiration Date Model / Serial / Lot Implanted Type Area [facility] 12/08/2019 [id number] / / [id number] Device Vasclr Clsr Baln Cath 10ml Cardiovasc N/A: N/A CARDINAL Lkng Syr 6fr 7fr [facility] [id number] Implants Implanted: 01/25/2018 (Quantity not on file) Metal Procedures Comments Procedure Name Priority Date/Time Associated Diagnosis ECG ED PRELIMINARY Routine 08/19/2018 INTERPRETATION 12:32 PM [employer]FANT TE[employer] ECG 12-LEAD STAT 08/19/2018 12:[address] THORACIC SPINE WO STAT 08/17/2018 CONTRAST 2:[address] HEAD WO CONTRAST STAT 08/17/2018 2:15 AM INFANT TEACHER ECG ED PRELIMINARY Routine 08/17/2018 INTERPRETATION 1:51 AM INFANT TEACHER ESTIMATED GFR STAT 08/17/2018 1:51 AM INFANT TEACHER B NATRIURETIC PEPTIDE STAT 08/17/2018 1:51 AM INFANT TEACHER TROPONIN STAT 08/17/2018 1:51 AM INFANT TEACHER COMPREHENSIVE METABOLIC STAT 08/17/2018 PANEL 1:51 AM INFANT TEACHER HC COMPLETE BLD COUNT STAT 08/17/2018 W/AUTO DIFF 1:51 AM INFANT TEACHER ECG 12-LEAD STAT 08/17/2018 12:36 AM INFANT TE[employer]ER URINALYSIS SCREEN AND STAT 08/01/2018 MICROSCOPY, WITH REFLEX 11:00 PM INFANT TE[employer] TO CULTURE URINE DRUGS OF ABUSE STAT 08/01/2018 SCREEN 11:00 PM INFANT TE[employer]ER URINE CULTURE STAT 08/01/2018 11:00 PM INFANT TEACHER ESTIMATED GFR STAT 08/01/2018 10:28 PM INFANT TEACHER CREATINE KINASE, TOTAL STAT 08/01/2018 (CPK) 10:28 PM INFANT TEACHER B NATRIURETIC PEPTIDE STAT 08/01/2018 10:28 PM INFANT TEACHER TROPONIN STAT 08/01/2018 10:28 PM INFANT TEACHER MAGNESIUM LEVEL STAT 08/01/2018 10:28 PM INFANT TE[employer]ER PHOSPHORUS LEVEL STAT 08/01/2018 10:28 PM INFANT TEACHER COMPREHENSIVE METABOLIC STAT 08/01/2018 PANEL 10:28 PM INFANT TEACHER HC COMPLETE BLD COUNT STAT 08/01/2018 W/AUTO DIFF 10:[address] CERVICAL SPINE WO STAT 08/01/2018 CONTRAST 10:[address] HEAD WO CONTRAST STAT 08/01/2018 10:25 PM INFANT TEACHER XR FOREARM 2 VW RIGHT STAT 08/01/2018 10:11 PM INFANT TEACHER XR WRIST 3+ VW RIGHT STAT 08/01/2018 10:10 PM INFANT TEACHER XR CHEST 1 VW PORTABLE STAT 08/01/2018 10:10 PM INFANT TEACHER ECG 12-LEAD STAT 08/01/2018 9:48 PM INFANT TEACHER ECG ED PRELIMINARY Routine 08/01/2018 INTERPRETATION 9:[address] ABDOMEN PELVIS WO STAT 07/18/2018 CONTRAST 7:[address] HEAD WO CONTRAST STAT 07/18/2018 7:42 PM INFANT TEACHER XR CHEST 1 VW PORTABLE STAT 07/18/2018 7:22 PM INFANT TEACHER POC GLUCOSE Routine 07/18/2018 7:15 PM INFANT TEACHER ECG 12-LEAD STAT 07/18/2018 7:07 PM INFANT TEACHER ECG ED PRELIMINARY Routine 07/18/2018 INTERPRETATION 6:[address] HEAD WO CONTRAST STAT 07/14/2018 8:[address] CERVICAL SPINE WO STAT 07/14/2018 CONTRAST 8:44 PM INFANT TEACHER ECG ED PRELIMINARY Routine 07/14/2018 INTERPRETATION 1:51 PM INFANT TEACHER ECG 12-LEAD STAT 07/14/2018 12:15 PM INFANT TEACHER ESTIMATED GFR STAT 07/14/2018 12:00 PM INFANT TEACHER PROTHROMBIN TIME WITH INR STAT 07/14/2018 12:00 PM INFANT TEACHER PARTIAL THROMBOPLASTIN STAT 07/14/2018 TIME (PTT) 12:00 PM INFANT TEACHER B NATRIURETIC PEPTIDE STAT 07/14/2018 12:00 PM INFANT TEACHER TROPONIN STAT 07/14/2018 12:00 PM INFANT TEACHER COMPREHENSIVE METABOLIC STAT 07/14/2018 PANEL 12:00 PM INFANT TEACHER HC COMPLETE BLD COUNT STAT 07/14/2018 W/AUTO DIFF 12:[address] THORACIC SPINE WO STAT 07/13/2018 CONTRAST 11:[address] CERVICAL SPINE WO STAT 07/13/2018 CONTRAST 11:[address] LUMBAR SPINE WO STAT 07/13/2018 CONTRAST 11:[address] HEAD WO CONTRAST STAT 07/13/2018 11:34 PM INFANT TEACHER ECG 12-LEAD STAT 07/13/2018 10:50 PM INFANT TEACHER ECG ED PRELIMINARY Routine 07/13/2018 INTERPRETATION 10:32 PM INFANT TEACHER XR CERVICAL SPINE STAT 06/23/2018 COMPLETE 2:42 PM INFANT TEACHER XR LUMBAR SPINE 2 OR 3 VW STAT 06/23/2018 2:42 PM INFANT TEACHER XR CHEST 2 VW STAT 06/23/2018 2:41 PM INFANT TEACHER ECG ED PRELIMINARY Routine 06/23/2018 INTERPRETATION 1:08 PM INFANT TEACHER ECG 12-LEAD STAT 06/23/2018 12:54 PM INFANT TEACHER TROPONIN Timed 06/04/2018 12:46 AM CDT ECG 12-LEAD Routine 06/04/2018 12:[address] HEAD WO CONTRAST STAT 06/03/2018 11:00 PM CDT XR CHEST 1 VW PORTABLE STAT 06/03/2018 10:52 PM CDT ESTIMATED GFR STAT 06/03/2018 10:35 PM CDT B NATRIURETIC PEPTIDE STAT 06/03/2018 10:35 PM CDT TROPONIN Timed 06/03/2018 10:35 PM CDT COMPREHENSIVE METABOLIC STAT 06/03/2018 PANEL 10:35 PM CDT PARTIAL THROMBOPLASTIN STAT 06/03/2018 TIME (PTT) 10:35 PM CDT PROTHROMBIN TIME WITH INR STAT 06/03/2018 10:35 PM CDT HC COMPLETE BLD COUNT STAT 06/03/2018 W/AUTO DIFF 10:35 PM CDT ECG 12-LEAD STAT 06/03/2018 10:21 PM CDT ECG ED PRELIMINARY Routine 06/03/2018 INTERPRETATION 10:20 PM CDT ECG ED PRELIMINARY Routine 06/03/2018 INTERPRETATION 10:20 PM CDT ECG 12-LEAD STAT 06/02/2018 8:27 PM CDT TROPONIN STAT 05/20/2018 3:[address] HEAD WO CONTRAST STAT 05/20/2018 12:58 AM CDT XR CHEST 1 VW PORTABLE STAT 05/20/2018 12:49 AM CDT ESTIMATED GFR Routine 05/20/2018 12:37 AM CDT B NATRIURETIC PEPTIDE Routine 05/20/2018 12:37 AM CDT LIPASE LEVEL Routine 05/20/2018 12:37 AM CDT TROPONIN Routine 05/20/2018 12:37 AM CDT COMPREHENSIVE METABOLIC Routine 05/20/2018 PANEL 12:37 AM CDT PROTHROMBIN TIME WITH INR Routine 05/20/2018 12:37 AM CDT HC COMPLETE BLD COUNT Routine 05/20/2018 W/AUTO DIFF 12:37 AM CDT ECG 12-LEAD STAT 05/20/2018 12:32 AM CDT ECG ED PRELIMINARY Routine 05/20/2018 INTERPRETATION 12:13 AM CDT POC GLUCOSE Routine 05/13/2018 12:10 PM CDT LIPID PANEL Routine 05/13/2018 7:28 AM CDT MAGNESIUM LEVEL Routine 05/13/2018 7:28 AM CDT ESTIMATED GFR Timed 05/13/2018 7:28 AM CDT COMPREHENSIVE METABOLIC Timed 05/13/2018 PANEL 7:28 AM CDT HC COMPLETE BLD COUNT Timed 05/13/2018 W/AUTO DIFF 7:28 AM CDT TROPONIN Timed 05/13/2018 7:28 AM CDT POC GLUCOSE Routine 05/13/2018 5:50 AM CDT TROPONIN Timed 05/13/2018 4:25 AM CDT POC GLUCOSE Routine 05/13/2018 12:44 AM CDT ESTIMATED GFR STAT 05/12/2018 10:20 PM CDT LIPASE LEVEL STAT 05/12/2018 10:20 PM CDT COMPREHENSIVE METABOLIC STAT 05/12/2018 PANEL 10:20 PM CDT HC COMPLETE BLD COUNT STAT 05/12/2018 W/AUTO DIFF 10:20 PM CDT TROPONIN Timed 05/12/2018 10:19 PM CDT XR CHEST 2 VW STAT 05/12/2018 10:12 PM CDT ECG ED PRELIMINARY Routine 05/12/2018 INTERPRETATION 9:31 PM CDT ECG 12-LEAD STAT 05/12/2018 9:26 PM CDT ECG ED PRELIMINARY Routine 05/06/2018 INTERPRETATION 9:01 PM CDT ESTIMATED GFR STAT 05/06/2018 8:55 PM CDT B NATRIURETIC PEPTIDE STAT 05/06/2018 8:55 PM CDT TROPONIN STAT 05/06/2018 8:55 PM CDT COMPREHENSIVE METABOLIC STAT 05/06/2018 PANEL 8:55 PM CDT HC COMPLETE BLD COUNT STAT 05/06/2018 W/AUTO DIFF 8:55 PM CDT XR CHEST 2 VW STAT 05/06/2018 8:53 PM CDT ECG 12-LEAD STAT 05/06/2018 8:27 PM CDT ECG ED PRELIMINARY Routine 05/04/2018 INTERPRETATION 12:06 AM CDT TROPONIN Timed 05/03/2018 11:[address] HEAD WO CONTRAST STAT 05/03/2018 6:52 PM CDT ESTIMATED GFR STAT 05/03/2018 6:47 PM CDT B NATRIURETIC PEPTIDE STAT 05/03/2018 6:47 PM CDT TROPONIN STAT 05/03/2018 6:47 PM CDT COMPREHENSIVE METABOLIC STAT 05/03/2018 PANEL 6:47 PM CDT HC COMPLETE BLD COUNT STAT 05/03/2018 W/AUTO DIFF 6:47 PM CDT ECG 12-LEAD STAT 05/03/2018 6:06 PM CDT URINE CULTURE Routine 05/03/2018 6:04 PM CDT URINE DRUGS OF ABUSE STAT 05/03/2018 SCREEN 6:01 PM CDT URINALYSIS SCREEN AND Routine 05/03/2018 MICROSCOPY, WITH REFLEX 6:01 PM CDT TO CULTURE XR SHOULDER 2+ VW LEFT STAT 05/02/2018 5:58 PM CDT POC GLUCOSE Routine 05/02/2018 4:01 PM CDT URINALYSIS SCREEN AND STAT 05/02/2018 MICROSCOPY, WITH REFLEX 3:24 PM CDT TO CULTURE URINE CULTURE STAT 05/02/2018 3:[address] HEAD WO CONTRAST STAT 05/02/2018 10:40 AM CDT POC GLUCOSE Routine 05/02/2018 6:27 AM CDT ESTIMATED GFR Routine 05/02/2018 5:55 AM CDT HEMOGLOBIN A1C Routine 05/02/2018 5:55 AM CDT T4, FREE Routine 05/02/2018 5:55 AM CDT B NATRIURETIC PEPTIDE Routine 05/02/2018 5:55 AM CDT BASIC METABOLIC PANEL Routine 05/02/2018 5:55 AM CDT PROTHROMBIN TIME WITH INR Routine 05/02/2018 5:55 AM CDT HC COMPLETE BLD COUNT Routine 05/02/2018 W/AUTO DIFF 5:55 AM CDT TROPONIN Timed 05/02/2018 1:27 AM CDT POC GLUCOSE Routine 05/02/2018 1:12 AM CDT XR LUMBAR SPINE 2 OR 3 VW STAT 05/02/2018 12:20 AM CDT XR KNEE 4+ VW LEFT STAT 05/02/2018 12:19 AM CDT XR CHEST 1 VW PORTABLE STAT 05/02/2018 12:19 AM CDT POC GLUCOSE Routine 05/01/2018 11:31 PM CDT ECG ED PRELIMINARY Routine 05/01/2018 INTERPRETATION 11:21 PM CDT ESTIMATED GFR STAT 05/01/2018 9:28 PM CDT B NATRIURETIC PEPTIDE STAT 05/01/2018 9:28 PM CDT TROPONIN STAT 05/01/2018 9:28 PM CDT COMPREHENSIVE METABOLIC STAT 05/01/2018 PANEL 9:28 PM CDT HC COMPLETE BLD COUNT STAT 05/01/2018 W/AUTO DIFF 9:28 PM CDT ECG 12-LEAD STAT 05/01/2018 9:[address] HEAD WO CONTRAST STAT 04/29/2018 11:08 PM CDT POC GLUCOSE Routine 04/29/2018 10:02 PM CDT ESTIMATED GFR STAT 04/29/2018 9:40 PM CDT TROPONIN STAT 04/29/2018 9:40 PM CDT CREATINE KINASE, TOTAL STAT 04/29/2018 (CPK) 9:40 PM CDT ALCOHOL LEVEL, BLOOD STAT 04/29/2018 9:40 PM CDT BASIC METABOLIC PANEL STAT 04/29/2018 9:40 PM CDT HC COMPLETE BLD COUNT STAT 04/29/2018 W/AUTO DIFF 9:40 PM CDT ECG 12-LEAD STAT 04/29/2018 9:32 PM CDT ECG ED PRELIMINARY Routine 04/29/2018 INTERPRETATION 9:29 PM CDT POC GLUCOSE Routine 04/28/2018 4:20 PM CDT VALPROIC ACID LEVEL Routine 04/28/2018 1:45 PM CDT POC GLUCOSE Routine 04/28/2018 11:32 AM CDT POC GLUCOSE Routine 04/28/2018 6:24 AM CDT ESTIMATED GFR Routine 04/28/2018 5:28 AM CDT HC COMPLETE BLD COUNT Routine 04/28/2018 W/AUTO DIFF 5:28 AM CDT BASIC METABOLIC PANEL Routine 04/28/2018 5:28 AM CDT POC GLUCOSE Routine 04/27/2018 9:25 PM CDT POC GLUCOSE Routine 04/27/2018 6:19 PM CDT KEPPRA (LEVETIRACETAM) Routine 04/27/2018 LEVEL 2:20 PM CDT TROPONIN Timed 04/27/2018 2:20 PM CDT POC GLUCOSE Routine 04/27/2018 1:45 PM CDT TROPONIN Timed 04/27/2018 8:45 AM CDT POC GLUCOSE Routine 04/27/2018 8:30 AM CDT ECG 12-LEAD Routine 04/27/2018 8:15 AM CDT TROPONIN Timed 04/27/2018 4:42 AM CDT LA CRITICAL CARE, E/M Routine 04/27/2018 30-74 MINUTES 4:14 AM CDT ECG 12-LEAD Routine 04/27/2018 4:11 AM CDT URINALYSIS SCREEN AND Routine 04/27/2018 MICROSCOPY, WITH REFLEX 2:37 AM CDT TO CULTURE URINE CULTURE Routine 04/27/2018 2:[address] ANGIOGRAM PE CHEST STAT 04/27/2018 2:35 AM CDT ECG ED PRELIMINARY Routine 04/27/2018 INTERPRETATION 1:26 AM CDT XR CHEST 1 VW PORTABLE STAT 04/27/2018 1:14 AM CDT ESTIMATED GFR STAT 04/27/2018 12:44 AM CDT D-DIMER STAT 04/27/2018 12:44 AM CDT B NATRIURETIC PEPTIDE STAT 04/27/2018 12:44 AM CDT TROPONIN STAT 04/27/2018 12:44 AM CDT MAGNESIUM LEVEL STAT 04/27/2018 12:44 AM CDT HC COMPLETE BLD COUNT STAT 04/27/2018 W/AUTO DIFF 12:44 AM CDT BASIC METABOLIC PANEL STAT 04/27/2018 12:44 AM CDT ECG 12-LEAD STAT 04/26/2018 8:[address] LUMBAR SPINE WO STAT 04/22/2018 CONTRAST 10:[address] HEAD WO CONTRAST STAT 04/22/2018 10:[address] CERVICAL SPINE WO STAT 04/22/2018 CONTRAST 10:52 PM CDT ECG ED PRELIMINARY Routine 04/22/2018 INTERPRETATION 9:50 PM CDT ECG 12-LEAD STAT 04/22/2018 9:23 PM CDT ESTIMATED GFR STAT 04/22/2018 9:22 PM CDT B NATRIURETIC PEPTIDE STAT 04/22/2018 9:22 PM CDT TROPONIN STAT 04/22/2018 9:22 PM CDT COMPREHENSIVE METABOLIC STAT 04/22/2018 PANEL 9:22 PM CDT HC COMPLETE BLD COUNT STAT 04/22/2018 W/AUTO DIFF 9:22 PM CDT TROPONIN Timed 04/22/2018 1:08 AM CDT LACTIC ACID LEVEL, SEPSIS Timed 04/22/2018 - NOW AND REPEAT 2X EVERY 1:08 AM CDT 3 HOURS ECG ED PRELIMINARY Routine 04/21/2018 INTERPRETATION 10:28 PM CDT ECG 12-LEAD STAT 04/21/2018 10:18 PM CDT VALPROIC ACID LEVEL STAT 04/21/2018 9:50 PM CDT ESTIMATED GFR STAT 04/21/2018 9:50 PM CDT CREATINE KINASE, TOTAL STAT 04/21/2018 (CPK) 9:50 PM CDT TROPONIN STAT 04/21/2018 9:50 PM CDT B NATRIURETIC PEPTIDE STAT 04/21/2018 9:50 PM CDT LACTIC ACID LEVEL, SEPSIS STAT 04/21/2018 - NOW AND REPEAT 2X EVERY 9:50 PM CDT 3 HOURS COMPREHENSIVE METABOLIC STAT 04/21/2018 PANEL 9:50 PM CDT HC COMPLETE BLD COUNT STAT 04/21/2018 W/AUTO DIFF 9:50 PM CDT POC GLUCOSE Routine 04/14/2018 3:05 PM CDT EEG AWAKE/ASLEEP LESS Routine 04/14/2018 THAN 41 MIN 2:30 PM CDT POC GLUCOSE Routine 04/14/2018 11:11 AM CDT POC GLUCOSE Routine 04/14/2018 7:08 AM CDT POC GLUCOSE Routine 04/13/2018 8:18 PM CDT MRA NECK WO CONTRAST Routine 04/13/2018 6:59 PM CDT MRA HEAD WO CONTRAST Routine 04/13/2018 6:44 PM CDT MRI BRAIN WO CONTRAST Routine 04/13/2018 6:41 PM CDT POC GLUCOSE Routine 04/13/2018 4:14 PM CDT POC GLUCOSE Routine 04/13/2018 11:20 AM CDT POC GLUCOSE Routine 04/13/2018 7:50 AM CDT VALPROIC ACID LEVEL Routine 04/13/2018 6:47 AM CDT LIPID PANEL Timed 04/13/2018 6:47 AM CDT TROPONIN Timed 04/13/2018 6:47 AM CDT TROPONIN Timed 04/13/2018 3:39 AM CDT POC GLUCOSE Routine 04/13/2018 1:31 AM CDT URINALYSIS, AUTOMATED Routine 04/13/2018 WITH MICROSCOPY 12:09 AM CDT ZZESTIMATED GFR STAT 04/12/2018 10:45 PM CDT VALPROIC ACID LEVEL STAT 04/12/2018 10:45 PM CDT LIPASE LEVEL STAT 04/12/2018 10:45 PM CDT CREATINE KINASE, TOTAL STAT 04/12/2018 (CPK) 10:45 PM CDT B NATRIURETIC PEPTIDE STAT 04/12/2018 10:45 PM CDT TROPONIN STAT 04/12/2018 10:45 PM CDT COMPREHENSIVE METABOLIC STAT 04/12/2018 PANEL 10:45 PM CDT PARTIAL THROMBOPLASTIN STAT 04/12/2018 TIME (PTT) 10:45 PM CDT PROTHROMBIN TIME WITH INR STAT 04/12/2018 10:45 PM CDT HC COMPLETE BLD COUNT STAT 04/12/2018 W/AUTO DIFF 10:45 PM CDT XR CHEST 2 VW STAT 04/12/2018 10:17 PM CDT ECG ED PRELIMINARY Routine 04/12/2018 INTERPRETATION 9:59 PM CDT ECG 12-LEAD STAT 04/12/2018 9:50 PM CDT XR CHEST 1 VW PORTABLE STAT 04/11/2018 1:59 AM CDT VALPROIC ACID LEVEL STAT 04/11/2018 1:46 AM CDT ZZESTIMATED GFR STAT 04/11/2018 1:46 AM CDT B NATRIURETIC PEPTIDE STAT 04/11/2018 1:46 AM CDT TROPONIN STAT 04/11/2018 1:46 AM CDT COMPREHENSIVE METABOLIC STAT 04/11/2018 PANEL 1:46 AM CDT HC COMPLETE BLD COUNT STAT 04/11/2018 W/AUTO DIFF 1:46 AM CDT ECG 12-LEAD STAT 04/11/2018 1:40 AM CDT ECG ED PRELIMINARY Routine 04/11/2018 INTERPRETATION 1:27 AM CDT POC GLUCOSE Routine 04/11/2018 1:24 AM CDT POC GLUCOSE Routine 03/30/2018 11:22 AM CDT VALPROIC ACID LEVEL Routine 03/30/2018 6:35 AM CDT POC GLUCOSE Routine 03/30/2018 5:16 AM CDT POC GLUCOSE Routine 03/30/2018 1:04 AM CDT POC GLUCOSE Routine 03/29/2018 9:24 PM CDT POC GLUCOSE Routine 03/29/2018 8:52 PM CDT POC GLUCOSE Routine 03/29/2018 7:46 PM CDT TROPONIN Timed 03/29/2018 7:[address] HEAD WO CONTRAST STAT 03/29/2018 6:01 PM CDT XR CHEST 2 VW STAT 03/29/2018 5:55 PM CDT ECG 12-LEAD STAT 03/29/2018 5:14 PM CDT CREATINE KINASE, TOTAL STAT 03/29/2018 (CPK) 5:14 PM CDT TROPONIN STAT 03/29/2018 5:14 PM CDT B NATRIURETIC PEPTIDE STAT 03/29/2018 5:14 PM CDT ECG ED PRELIMINARY Routine 03/29/2018 INTERPRETATION 5:11 PM CDT ZZESTIMATED GFR STAT 03/29/2018 4:16 PM CDT HEMOGLOBIN A1C STAT 03/29/2018 4:16 PM CDT BETA HYDROXYBUTYRATE STAT 03/29/2018 4:16 PM CDT LIPASE LEVEL STAT 03/29/2018 4:16 PM CDT COMPREHENSIVE METABOLIC STAT 03/29/2018 PANEL 4:16 PM CDT HC COMPLETE BLD COUNT STAT 03/29/2018 W/AUTO DIFF 4:16 PM CDT URINALYSIS SCREEN AND STAT 03/29/2018 MICROSCOPY, WITH REFLEX 3:55 PM CDT TO CULTURE URINE CULTURE STAT 03/29/2018 3:52 PM CDT POC GLUCOSE Routine 03/29/2018 3:30 PM CDT POC GLUCOSE Routine 03/28/2018 10:20 PM CDT POC GLUCOSE Routine 03/28/2018 9:03 PM CDT POC GLUCOSE Routine 03/28/2018 7:[address] HEAD WO CONTRAST STAT 03/28/2018 7:18 PM CDT ZZESTIMATED GFR STAT 03/28/2018 6:47 PM CDT TROPONIN STAT 03/28/2018 6:47 PM CDT COMPREHENSIVE METABOLIC STAT 03/28/2018 PANEL 6:47 PM CDT HC COMPLETE BLD COUNT STAT 03/28/2018 W/AUTO DIFF 6:47 PM CDT POC GLUCOSE Routine 03/28/2018 6:34 PM CDT ECG ED PRELIMINARY Routine 03/28/2018 INTERPRETATION 6:31 PM CDT POC GLUCOSE Routine 03/28/2018 6:12 PM CDT ECG 12-LEAD Routine 03/28/2018 5:49 PM CDT POC GLUCOSE Routine 03/28/2018 5:49 PM CDT POC GLUCOSE Routine 03/28/2018 5:37 PM CDT XR HUMERUS RIGHT STAT 03/26/2018 8:42 PM CDT XR KNEE 4+ VW LEFT STAT 03/26/2018 8:[address] LUMBAR SPINE WO STAT 03/26/2018 CONTRAST 7:[address] HEAD WO CONTRAST STAT 03/26/2018 7:[address] ABDOMEN PELVIS W STAT 03/23/2018 CONTRAST 1:25 AM CDT ZZESTIMATED GFR STAT 03/22/2018 10:24 PM CDT COMPREHENSIVE METABOLIC STAT 03/22/2018 PANEL 10:24 PM CDT HC COMPLETE BLD COUNT STAT 03/22/2018 W/AUTO DIFF 10:24 PM CDT URINALYSIS SCREEN AND STAT 03/22/2018 MICROSCOPY, WITH REFLEX 9:39 PM CDT TO CULTURE GRAM STAIN STAT 03/22/2018 9:39 PM CDT URINE CULTURE STAT 03/22/2018 9:39 PM CDT POC GLUCOSE Routine 03/18/2018 7:02 AM CDT ZZESTIMATED GFR Routine 03/18/2018 5:23 AM CDT LIPID PANEL Routine 03/18/2018 5:23 AM CDT BASIC METABOLIC PANEL Routine 03/18/2018 5:23 AM CDT HC COMPLETE BLD COUNT Routine 03/18/2018 W/AUTO DIFF 5:23 AM CDT POC GLUCOSE Routine 03/17/2018 9:10 PM CDT TROPONIN Timed 03/17/2018 4:01 PM CDT POC GLUCOSE Routine 03/17/2018 3:49 PM CDT TROPONIN Timed 03/17/2018 11:45 AM CDT POC GLUCOSE Routine 03/17/2018 11:03 AM CDT TROPONIN Timed 03/17/2018 7:49 AM CDT POC GLUCOSE Routine 03/17/2018 7:14 AM CDT ECG ED PRELIMINARY Routine 03/17/2018 INTERPRETATION 3:00 AM CDT XR CHEST 1 VW PORTABLE STAT 03/17/2018 2:38 AM CDT ZZESTIMATED GFR STAT 03/17/2018 2:34 AM CDT B NATRIURETIC PEPTIDE STAT 03/17/2018 2:34 AM CDT TROPONIN STAT 03/17/2018 2:34 AM CDT COMPREHENSIVE METABOLIC STAT 03/17/2018 PANEL 2:34 AM CDT HC COMPLETE BLD COUNT STAT 03/17/2018 W/AUTO DIFF 2:34 AM CDT ECG 12-LEAD STAT 03/17/2018 2:06 AM CDT POC GLUCOSE Routine 03/10/2018 11:34 AM CDT POC GLUCOSE Routine 03/10/2018 9:20 AM CDT POC GLUCOSE Routine 03/10/2018 6:10 AM CDT POC GLUCOSE Routine 03/09/2018 8:17 PM CDT POC GLUCOSE Routine 03/09/2018 4:47 PM CDT POC GLUCOSE Routine 03/09/2018 1:45 PM CDT POC GLUCOSE Routine 03/09/2018 11:35 AM CDT ZZESTIMATED GFR Routine 03/09/2018 6:40 AM CDT BASIC METABOLIC PANEL Routine 03/09/2018 6:40 AM CDT HC COMPLETE BLD COUNT Routine 03/09/2018 W/AUTO DIFF 6:40 AM CDT POC GLUCOSE Routine 03/09/2018 6:22 AM CDT POC GLUCOSE Routine 03/08/2018 8:21 PM CDT POC GLUCOSE Routine 03/08/2018 4:43 PM CDT POC GLUCOSE Routine 03/08/2018 11:16 AM CDT POC GLUCOSE Routine 03/08/2018 6:22 AM CDT POC GLUCOSE Routine 03/08/2018 12:46 AM CDT POC GLUCOSE Routine 03/07/2018 8:21 PM CDT POC GLUCOSE Routine 03/07/2018 8:20 PM CDT POC GLUCOSE Routine 03/07/2018 4:45 PM CDT POC GLUCOSE Routine 03/07/2018 11:27 AM CDT ZZESTIMATED GFR Routine 03/07/2018 10:32 AM CDT BASIC METABOLIC PANEL Routine 03/07/2018 10:32 AM CDT HC COMPLETE BLD COUNT Routine 03/07/2018 W/AUTO DIFF 10:32 AM CDT POC GLUCOSE Routine 03/07/2018 6:41 AM CDT POC GLUCOSE Routine 03/06/2018 8:22 PM CDT POC GLUCOSE Routine 03/06/2018 4:45 PM CDT POC GLUCOSE Routine 03/06/2018 12:50 PM CDT POC GLUCOSE Routine 03/06/2018 6:23 AM CDT ZZESTIMATED GFR Routine 03/06/2018 4:20 AM CDT BASIC METABOLIC PANEL Routine 03/06/2018 4:20 AM CDT HC COMPLETE BLD COUNT Routine 03/06/2018 W/AUTO DIFF 4:20 AM CDT POC GLUCOSE Routine 03/05/2018 9:06 PM CDT POC GLUCOSE Routine 03/05/2018 5:00 PM CDT POC GLUCOSE Routine 03/05/2018 12:21 PM CDT ZZESTIMATED GFR STAT 03/05/2018 9:07 AM CDT BASIC METABOLIC PANEL STAT 03/05/2018 9:07 AM CDT HC COMPLETE BLD COUNT STAT 03/05/2018 W/AUTO DIFF 9:07 AM CDT POC GLUCOSE Routine 03/05/2018 6:32 AM CDT POC GLUCOSE Routine 03/04/2018 10:25 PM CDT POC GLUCOSE Routine 03/04/2018 8:29 PM CDT POC GLUCOSE Routine 03/04/2018 8:26 PM CDT POC GLUCOSE Routine 03/04/2018 3:29 PM CDT POC GLUCOSE Routine 03/04/2018 11:19 AM CDT B NATRIURETIC PEPTIDE Routine 03/04/2018 9:57 AM CDT ZZESTIMATED GFR Routine 03/04/2018 9:57 AM CDT BASIC METABOLIC PANEL Routine 03/04/2018 9:57 AM CDT HC COMPLETE BLD COUNT Routine 03/04/2018 W/AUTO DIFF 9:57 AM CDT POC GLUCOSE Routine 03/04/2018 6:37 AM CDT POC GLUCOSE Routine 03/03/2018 8:46 PM CDT POC GLUCOSE Routine 03/03/2018 2:56 PM CDT GRAM STAIN Timed 03/03/2018 2:31 PM CDT AEROBIC CULTURE Timed 03/03/2018 2:31 PM CDT ANAEROBIC CULTURE Timed 03/03/2018 2:31 PM CDT SURGICAL PATHOLOGY Routine 03/03/2018 REQUEST 2:28 PM CDT LA AN ELECTIVE Routine 03/03/2018 ENDOTRACHEAL AIRWAY 2:13 PM CDT Procedure Note - Peng Ortiz MD - 03/03/2018 2:13 PM CDT Airway Performed by: PENG ORTIZ Authorized by: PENG ORTIZ Location: OR Urgency: Elective Difficult Airway: Yes Anesthesio logist: PENG ROTIZ Performed by: anesthesio logist Preoxygena dionisio with 100% O2: No C-spine Precaution s Maintained Throughout : No Mask Ventilatio n: Easy mask Final Airway Type: Endotrache al airway Final Endotrache al Airway: ETT Cuffed: Yes Technique Used: Direct laryngosco py Insertion Site: Oral Blade Type: Alicia Laryngosco pe Blade/Vide olaryngosc ope Blade Size: 3 ETT Size (mm): 8.0 Cuff at minimum occlusion pressure: Yes Measured from: Lips ETT to Lips (cm): 23 Placement Verified by: CO2 detection, direct visualizat ion and equal breath sounds Laryngosco pic view: Grade IIa - partial view of glottis Rapid Sequence Induction (RSI): No Modified RSI: No Number of Attempts at Approach: 1 POC GLUCOSE Routine 03/03/2018 11:24 AM CDT ZZESTIMATED GFR STAT 03/03/2018 9:05 AM CDT COMPREHENSIVE METABOLIC STAT 03/03/2018 PANEL 9:05 AM CDT HC COMPLETE BLD COUNT STAT 03/03/2018 W/AUTO DIFF 9:05 AM CDT POC GLUCOSE Routine 03/03/2018 6:44 AM CDT POC GLUCOSE Routine 03/02/2018 9:00 PM CDT POC GLUCOSE Routine 03/02/2018 4:33 PM CDT POC GLUCOSE Routine 03/02/2018 12:12 PM CDT ZZESTIMATED GFR STAT 03/02/2018 11:00 AM CDT HC COMPLETE BLD COUNT STAT 03/02/2018 W/AUTO DIFF 11:00 AM CDT BASIC METABOLIC PANEL STAT 03/02/2018 11:00 AM CDT POC GLUCOSE Routine 03/02/2018 4:21 AM CDT POC GLUCOSE Routine 03/01/2018 8:38 PM CDT POC GLUCOSE Routine 03/01/2018 3:55 PM CDT POC GLUCOSE Routine 03/01/2018 12:11 PM CDT BLOOD CULTURE, AEROBIC & Routine 03/01/2018 ANAEROBIC 11:10 AM CDT VALPROIC ACID LEVEL STAT 03/01/2018 11:06 AM CDT B NATRIURETIC PEPTIDE Routine 03/01/2018 11:06 AM CDT LACTIC ACID LEVEL Routine 03/01/2018 11:06 AM CDT T4, FREE Routine 03/01/2018 11:06 AM CDT THYROID STIMULATING Routine 03/01/2018 HORMONE 11:06 AM CDT PHOSPHORUS LEVEL Routine 03/01/2018 11:06 AM CDT MAGNESIUM LEVEL Routine 03/01/2018 11:06 AM CDT LIPID PANEL Routine 03/01/2018 11:06 AM CDT HEMOGLOBIN A1C Routine 03/01/2018 11:06 AM CDT CREATINE KINASE, TOTAL Routine 03/01/2018 (CPK) 11:06 AM CDT BLOOD CULTURE, AEROBIC & Routine 03/01/2018 ANAEROBIC 11:06 AM CDT TROPONIN STAT 03/01/2018 9:20 AM CDT POC GLUCOSE Routine 03/01/2018 6:14 AM CDT ZZESTIMATED GFR STAT 02/28/2018 11:44 PM CDT B NATRIURETIC PEPTIDE STAT 02/28/2018 11:44 PM CDT TROPONIN STAT 02/28/2018 11:44 PM CDT COMPREHENSIVE METABOLIC STAT 02/28/2018 PANEL 11:44 PM CDT HC COMPLETE BLD COUNT STAT 02/28/2018 W/AUTO DIFF 11:44 PM CDT ECG ED PRELIMINARY Routine 02/28/2018 INTERPRETATION 11:26 PM CDT XR CHEST 1 VW PORTABLE STAT 02/28/2018 10:54 PM CDT ECG 12-LEAD STAT 02/28/2018 10:42 PM CDT after 02/17/2018 Results * ECG ED Preliminary Interpretation - Not an Order (08/19/2018 12:32 PM INFANT TEACHER) Only the most recent of 24 results within the time period is included. Narrative Performed At Braxton Ramirez MD 08/20/20186:51 AM ECG ED Preliminary Interpretation - Not an Order Performed by: Braxton Ramirez MD Authorized by: Braxton Ramirez MD ECG reviewed by ED Physician in the absence of a restaurant expeditor: yes Rate: ECG rate:77 ECG rate assessment: normal Rhythm: Rhythm: sinus rhythm Ectopy: Ectopy: none QRS: QRS axis:Normal Conduction: Conduction: abnormal Abnormal conduction: incomplete RBBB ST segments: ST segments:Normal T waves: T waves: normal * ECG 12 lead (08/19/2018 12:32 PM INFANT TEACHER) Only the most recent of 27 results within the time period is included. Ventricular 77 [facility] rate Atrial rate 77 [facility] LA interval 198 [facility] QRSD interval 114 [facility] QT interval 388 [facility] QTC interval 439 [facility] P axis 1 20 [facility] QRS axis 1 37 [facility] T wave axis 49 [facility] EKG impression Normal sinus rhythm-Incomplete [facility] right bundle branch block-Borderline ECG-In automated comparison with ECG of 17-AUG-2018 00:36,-No significant change was found- Specimen Narrative Performed At Performing Organization Address City/State/Zipcode Phone Number [facility] [place] [address] [place] [address] * CT Thoracic Spine Wo Contrast (08/17/2018 2:19 AM INFANT TEACHER) Only the most recent of 2 results within the time period is included. Specimen Narrative Performed At EXAM: CT THORACIC SPINE WO CONTRAST RADIANT CLINICAL HISTORY: back pain TECHNIQUE: Noncontrast enhanced imaging through the thoracic spine was performed with coronal and sagittal reconstructed images. CT scans are performed using radiation dose reduction techniques (iterative reconstruction and/or automated exposure control). Technical factors are evaluated and adjusted to ensure appropriate moderation of exposure. Automated dose management technology is applied to adjust radiation exposure while achieving a diagnostic quality image. COMPARISON:None FINDINGS: Thoracic alignment and vertebral body height are within normal limits. There is no evidence of acute fracture, suspicious osteolytic lesion, or suspicious osteoblastic lesion. Minimal thoracic spondylosis is noted. IMPRESSION: 1.No acute osseous abnormality of the thoracic spine. [facility]-[id number] Procedure Note Hm Interface, Radiology Results Incoming - 08/17/2018 2:26 AM INFANT TEACHER EXAM: CT THORACIC SPINE WO CONTRAST CLINICAL HISTORY: back pain TECHNIQUE: Noncontrast enhanced imaging through the thoracic spine was performed with coronal and sagittal reconstructed images. CT scans are performed using radiation dose reduction techniques (iterative reconstruction and/or automated exposure control). Technical factors are evaluated and adjusted to ensure appropriate moderation of exposure. Automated dose management technology is applied to adjust radiation exposure while achieving a diagnostic quality image. COMPARISON: None FINDINGS: Thoracic alignment and vertebral body height are within normal limits. There is no evidence of acute fracture, suspicious osteolytic lesion, or suspicious osteoblastic lesion. Minimal thoracic spondylosis is noted. IMPRESSION: 1. No acute osseous abnormality of the thoracic spine. [facility]-[id number] Performing Organization Address City/State/Zipcode Phone Number [facility] [address] [place] [address] * CT Head Wo Contrast (08/17/2018 2:15 AM INFANT TEACHER) Only the most recent of 14 results within the time period is included. Specimen Narrative Performed At EXAM: CT HEAD WO CONTRAST RADIANT CLINICAL HISTORY: syncope TECHNIQUE: Noncontrast enhanced images of the brain were obtained from the skull base to the vertex. Both soft tissue and bone reconstruction algorithms were performed. CT scans are performed using radiation dose reduction techniques (iterative reconstruction and/or automated exposure control). Technical factors are evaluated and adjusted to ensure appropriate moderation of exposure. Automated dose management technology is applied to adjust radiation exposure while achieving a diagnostic quality image. COMPARISON:08/01/2018. FINDINGS: The soriano-white matter differentiation is preserved and without evidence of acute territorial infarction. There is no evidence for acute intracranial hemorrhage, mass, mass effect, hydrocephalus, or extra-axial fluid collection. Orbits are unremarkable.Paranasal sinuses are clear.Mastoid air cells are normally pneumatized.Osseous structures are intact. IMPRESSION: No CT evidence for acute intracranial abnormality. [facility]-[id number] Procedure Note Hm Interface, Radiology Results Incoming - 08/17/2018 2:24 AM INFANT TEACHER EXAM: CT HEAD WO CONTRAST CLINICAL HISTORY: syncope TECHNIQUE: Noncontrast enhanced images of the brain were obtained from the skull base to the vertex. Both soft tissue and bone reconstruction algorithms were performed. CT scans are performed using radiation dose reduction techniques (iterative reconstruction and/or automated exposure control). Technical factors are evaluated and adjusted to ensure appropriate moderation of exposure. Automated dose management technology is applied to adjust radiation exposure while achieving a diagnostic quality image. COMPARISON: 08/01/2018. FINDINGS: The soriano-white matter differentiation is preserved and without evidence of acute territorial infarction. There is no evidence for acute intracranial hemorrhage, mass, mass effect, hydrocephalus, or extra-axial fluid collection. Orbits are unremarkable. Paranasal sinuses are clear. Mastoid air cells are normally pneumatized. Osseous structures are intact. IMPRESSION: No CT evidence for acute intracranial abnormality. [facility]-[id number] Performing Organization Address City/State/Zipcode Phone Number [facility] [phone] [place] [address] * Estimated GFR (08/17/2018 1:51 AM INFANT TEACHER) Only the most recent of 16 results within the time period is included. [facility] Signature Estimated GFR 80 mL/min/1.73 m2 [place] Comment: ANASTASIYA [facility] G1 >=90 Normal or high G2 60-89Mildly decreased [id number] Mildly to moderately decreased [id number] Moderately to severely decreased G4 15-29Severely decreased G5 <15Kidney failure The eGFR was calculated using the Chronic Kidney Disease Epidemiology Collaboration (CKD-EPI) equation. Interpretation is based on recommendations of the National Kidney Foundation-Kidney Disease Outcomes Quality Initiative (NKF-KDOQI) published in 2014. Specimen Plasma specimen Performing Organization Address City/State/[place] [address] [facility] [address] * Troponin (08/17/2018 1:51 AM INFANT TEACHER) Only the most recent of 36 results within the time period is included. Pathologist [facility] Troponin <0.30 0.00 - 0.30 ng/mL [facility] 0.11 - 1.49 [facility] [facility] indicate increased risk of acute coronary syndrome. >=1.5 ng/ml Consistent with acute myocardial infarction. The diagnostic value of a single normal or non-diagnostic result is questionable.Serial samples at 2-6 hour intervals are required to rule out acute myocardial injury. Specimen Plasma specimen Performing Organization Address City/[facility] Centercode Phone Number [address] AND [address] * CBC with platelet and differential (08/17/2018 1:51 AM INFANT TEACHER) Only the most recent of 31 results within the time period is included. Pathologist [facility] WBC 6.1 4.2 - 11.0 k/uL [facility] RBC 4.39 4.04 - 5.86 m/uL [facility] HGB 12.8 (L) 13.0 - 17.3 g/dL [facility] HCT 39.3 34.0 - 45.0 % [facility] MCV 89.5 80.0 - 98.0 fL [facility] MCH 29.2 27.0 - 34.0 pg [facility] MCHC 32.6 31.5 - 36.5 g/dL [facility] RDW - SD 45.1 37.0 - 51.0 fL [facility] MPV 8.9 7.4 - 10.4 fL [facility] Platelet count 217 150 - 400 k/uL [facility] Nucleated RBC 0.00 /100 WBC [facility] Neutrophils 65.3 36.0 - 66.0 % [facility] Lymphocytes 26.2 24.0 - 44.0 % [facility] Monocytes 6.3 (H) 0.0 - 6.0 % [facility] Eosinophils 1.2 0.0 - 6.0 % [facility] Basophils 0.5 0.0 - 1.2 % [facility] Immature 0.5 0.0 - 1.0 % [place] granulocytes [facility] Specimen Blood Performing Organization Address City/[facility] [place] [address] PATHOLOGY AND GENOMIC MEDICINE [address] * B natriuretic peptide (08/17/2018 1:51 AM INFANT TEACHER) Only the most recent of 19 results within the time period is included. [facility] BNP 47 0 - 100 pg/mL [facility] Specimen Blood Performing Organization Address City/[facility]/Zipcode Phone Number [facility] [place] [place] [address] PATHOLOGY AND GENOMIC MEDICINE [address] * Comprehensive metabolic panel (08/17/2018 1:51 AM INFANT TEACHER) Only the most recent of 20 results within the time period is included. [facility] Sodium 141 135 - 150 mEq/L [facility] Potassium 3.8 3.5 - 5.0 mEq/L [facility] Chloride 101 98 - 112 mEq/L [facility] CO2 28 24 - 31 mmol/L [facility] Anion gap 12@ANIO 7 - 15 mEq/L [facility] BUN 8 7 - 18 mg/dL [facility] Creatinine 1.10 0.70 - 1.20 mg/dL [facility] Glucose 165 (H) 65 - 100 mg/dL [facility] Calcium 10.1 8.3 - 10.2 mg/dL [facility] Protein 6.9 6.3 - 8.3 g/dL [facility] Albumin 3.6 3.5 - 5.0 g/dL [facility] A/G ratio 1.1 0.7 - 3.8 [facility] Alkaline 76 0 - 129 U/L [place] phosphatase [facility] AST 17 10 - 50 U/L [facility] ALT 24 5 - 50 U/L [facility] Total bilirubin <0.3 0.2 - 1.2 mg/dL [facility] Specimen Plasma specimen Performing Organization Address City/State/Zipcode Phone Number [facility] OF [address] [facility] [place] [address] PATHOLOGY AND GENOMIC MEDICINE [address] * Urinalysis screen and microscopy, with reflex to culture (08/01/2018 11:00 PM INFANT TEACHER) Only the most recent of 6 results within the time period is included. Specimen site Clean catch [facility] Color, UA Straw [facility] Appearance, UA Clear [facility] Specific 1.008 1.001 - 1.035 [place] gravity, UA [facility] pH, UA 5.0 5.0 - 8.5 [facility] Protein, UA Negative Negative [facility] Glucose, UA Negative Negative [facility] Ketones, UA Negative Negative [facility] Bilirubin, UA Negative Negative [facility] Blood, UA Negative Negative [facility] Nitrite, UA Negative Negative [facility] Urobilinogen, Negative <2.0 [place] UA [facility] Leukocyte Negative Negative [place] esterase, UA [facility] WBC, UA 0-5 0 - 1 /HPF [facility] RBC, UA 0-5 0 - 5 /HPF [facility] Bacteria, UA None seen None seen [facility] Yeast, UA None seen [facility] Yeast with None seen [place] pseudohyphae, [facility] Specimen Urine Performing Organization Address City/[facility] Centercode Phone Number [address] [place] [address] PATHOLOGY AND GENOMIC MEDICINE [address] * Urine drugs of abuse screen (08/01/2018 11:00 PM INFANT TEACHER) Only the most recent of 2 results within the time period is included. Amphetamine Negative [place] screen, urine [facility] Methamphetamine Negative [place] screen, urine [facility] Barbiturate Negative [place] screen, urine [facility] Benzodiazepine Positive (A) [place] screen, urine [facility] Cocaine screen, Negative [place] urine [facility] Methadone Negative [place] screen, urine [facility] Opiates screen, Negative [place] urine [facility] Phencyclidine Negative [place] screen, urine [facility] Cannabinoid Negative [place] screen, urine [facility] Tricyclic Positive (A) [place] screen, urine Comment: [facility] Drug screen [facility] concentration of detectability Amphetamines 1000 ng/mL Methamphetamines 1000 ng/mL Barbiturates 300 ng/mL Benzodiazepines 300 ng/mL Cocaine 300 ng/mL Methadone 300 ng/mL Opiates 300 ng/mL Phencyclidine 25 ng/mL Cannabinoids 50 ng/mL Tricyclics 1000 ng/mL Negative test results indicates presumptive evidence of lack of clinically significant drug concentration in this urine specimen. Positive test results are presumptive evidence of clinically significant drug concentration in this urine specimen. Testing performed for medical purposes only. Specimen Urine Performing Organization Address [facility] Centercode Phone Number [address] [place] [address] PATHOLOGY AND GENOMIC MEDICINE [address] * Urine culture (08/01/2018 11:00 PM INFANT TEACHER) Only the most recent of 6 results within the time period is included. Urine culture SEE COMMENTComment: [place] Bacteriuria screen negative. [facility] Specimen Urine Performing Organization Address [facility] Phone Number [address] [place] [address] PATHOLOGY AND GENOMIC MEDICINE [address] * Phosphorus level (08/01/2018 10:28 PM INFANT TEACHER) Only the most recent of 2 results within the time period is included. Phosphorus 2.7 2.4 - 4.5 mg/dL [facility] Specimen Plasma specimen Performing Organization Address [facility] Phone Number [address] [place] [address] PATHOLOGY AND GENOMIC MEDICINE [address] * Magnesium level (08/01/2018 10:28 PM INFANT TEACHER) Only the most recent of 4 results within the time period is included. Magnesium 1.8 1.6 - 2.6 mg/dL [facility] Specimen Plasma specimen Performing Organization Address [facility] Phone Number [address] [place] [address] PATHOLOGY AND GENOMIC MEDICINE [address] * Creatine kinase, total (CPK) (08/01/2018 10:28 PM INFANT TEACHER) Only the most recent of 6 results within the time period is included. Creatine kinase 42 39 - 308 U/L [facility] Specimen Plasma specimen Performing Organization Address [facility] Phone Number [place] [address] [place] [address] PATHOLOGY AND GENOMIC MEDICINE [address] [place] [address] * CT Cervical Spine Wo Contrast (08/01/2018 10:27 PM INFANT TEACHER) Only the most recent of 4 results within the time period is included. Specimen Narrative Performed At EXAMINATION: CT CERVICAL SPINE WO CONTRAST [facility] CLINICAL HISTORY: syncopefall COMPARISON:None TECHNIQUE: Noncontrast enhanced imaging through the cervical spine was performed with coronal and sagittal reconstructed images. CT scans are performed using radiation dose reduction techniques (iterative reconstruction and/or automated exposure control). Technical factors are evaluated and adjusted to ensure appropriate moderation of exposure. Automated dose management technology is applied to adjust radiation exposure while achieving a diagnostic quality image. FINDINGS: Cervical lordosis is straightened.No acute fractures or subluxations.No soft tissue abnormalities are seen. No significant posterior disc disease, spinal canal or neural foraminal stenosis. No incidental thyroid nodules are noted. IMPRESSION: No acute osseous abnormality of the cervical spine. [id number] Procedure Note Interface, Radiology Results Incoming - 08/01/2018 10:40 PM INFANT TEACHER EXAMINATION: CT CERVICAL SPINE WO CONTRAST CLINICAL HISTORY: syncope fall COMPARISON: None TECHNIQUE: Noncontrast enhanced imaging through the cervical spine was performed with coronal and sagittal reconstructed images. CT scans are performed using radiation dose reduction techniques (iterative reconstruction and/or automated exposure control). Technical factors are evaluated and adjusted to ensure appropriate moderation of exposure. Automated dose management technology is applied to adjust radiation exposure while achieving a diagnostic quality image. FINDINGS: Cervical lordosis is straightened. No acute fractures or subluxations. No soft tissue abnormalities are seen. No significant posterior disc disease, spinal canal or neural foraminal stenosis. No incidental thyroid nodules are noted. IMPRESSION: No acute osseous abnormality of the cervical spine. [facility]-[id number] Performing Organization Address City/State/Zipcode Phone Number [facility] [address] [place] [address] * XR Forearm 2 Vw Right (08/01/2018 10:11 PM INFANT TEACHER) Specimen Narrative Performed At EXAMINATION:XR FOREARM 2 VW RIGHT [facility] CLINICAL HISTORY:R forearm pain COMPARISON:None. IMPRESSION: No evidence of acute right forearm fracture or dislocation. Bone mineralization is normal. Forearm soft tissue swelling. [id number] Procedure Note Interface, Radiology Results Incoming - 08/01/2018 10:16 PM INFANT TEACHER EXAMINATION: XR FOREARM 2 VW RIGHT CLINICAL HISTORY: R forearm pain COMPARISON: None. IMPRESSION: No evidence of acute right forearm fracture or dislocation. Bone mineralization is normal. Forearm soft tissue swelling. [facility]-[id number] Performing Organization Address [facility] Centercomo Phone Number [facility] [address] [place] [address] * XR Wrist 3+ Vw Right (08/01/2018 10:10 PM INFANT TEACHER) Specimen Narrative Performed At EXAMINATION:XR WRIST 3VW RIGHT [facility] CLINICAL HISTORY:right wrist pain COMPARISON:None. IMPRESSION: No evidence of acute right wrist fracture or dislocation. Soft tissues are normal. [facility]-[id number] Procedure Note Interface, Radiology Results Incoming - 08/01/2018 10:16 PM INFANT TEACHER EXAMINATION: XR WRIST 3 VW RIGHT CLINICAL HISTORY: right wrist pain COMPARISON: None. IMPRESSION: No evidence of acute right wrist fracture or dislocation. Soft tissues are normal. [facility]-[id number] Performing Organization Address [facility] Phone Number [facility] [address] [place] [address] * XR Chest 1 Vw Portable (08/01/2018 10:10 PM INFANT TEACHER) Only the most recent of 9 results within the time period is included. Specimen Narrative Performed At EXAMINATION: XR CHEST 1 VW PORTABLE [facility] INDICATION: syncope COMPARISON: 07/18/2018 IMPRESSION: No pulmonary edema or acute airspace disease. No pleural effusion or pneumothorax. Normal cardiomediastinal silhouette for portable technique. [facility]-[id number] Procedure Note Interface, Radiology Results Incoming - 08/01/2018 10:20 PM INFANT TEACHER EXAMINATION: XR CHEST 1 VW PORTABLE INDICATION: syncope COMPARISON: 07/18/2018 IMPRESSION: No pulmonary edema or acute airspace disease. No pleural effusion or pneumothorax. Normal cardiomediastinal silhouette for portable technique. [facility]-[id number] Performing Organization Address [facility] Centercomo Phone Number [facility] [address] [place] [address] * CT Abdomen Pelvis Wo Contrast (07/18/2018 7:42 PM INFANT TEACHER) Specimen Narrative Performed At EXAMINATION:CT ABDOMEN PELVIS WO CONTRAST [facility] CLINICAL HISTORY:abd pain TECHNIQUE: Noncontrast images of the abdomen and pelvis were obtained without intravenous iodinated contrast. The lack of intravenous contrast limits assessment of the solid organs. CT imaging was performed with iterative reconstruction technique and/or automated exposure control to reduce radiation dose. COMPARISON: March 23, 2018 FINDINGS: LOWER THORAX: Atelectatic changes of lung bases. ABDOMEN: Liver: There is fatty infiltration of liver which is enlarged. No focal mass. Gallbladder: The gallbladder is normal. Spleen: The spleen is not enlarged. Small calcified granulomas present. Pancreas: The pancreas is unremarkable. Adrenal Glands: The adrenal glands are unremarkable. Kidneys: Punctate 2-3 mm calculus is present within the superior pole of the right kidney. No hydronephrosis. No masses within limitations of this noncontrast exam. There is mild bilateral perinephric stranding, nonspecific. Abdominal Aorta: The abdominal aorta is nonaneurysmal. Nodes: No enlarged retroperitoneal or mesenteric lymphadenopathy. Bowel: No bowel obstruction or inflammatory changes of the large or small bowel. Appendix is normal. Ascites: No ascites or fluid collections. PELVIS: Pelvis: No mass, fluid collection or significant adenopathy. Nonspecific stranding/granulation is present within the anterior abdominal wall at the site of prior laceration. Bones and soft tissues: Degenerative changes of the osseous structures. No suspicious lesions. Old posttraumatic deformity of the coccyx. IMPRESSION: 1.Nonobstructive right nephrolithiasis. Nonspecific bilateral perinephric stranding. Please correlate for signs of infection. 2.Hepatic steatosis. [facility]-[id number] Procedure Note [facility], Radiology Results Incoming - 07/18/2018 8:00 PM INFANT TEACHER EXAMINATION: CT ABDOMEN PELVIS WO CONTRAST CLINICAL HISTORY: abd pain TECHNIQUE: Noncontrast images of the abdomen and pelvis were obtained without intravenous iodinated contrast. The lack of intravenous contrast limits assessment of the solid organs. CT imaging was performed with iterative reconstruction technique and/or automated exposure control to reduce radiation dose. COMPARISON: March 23, 2018 FINDINGS: LOWER THORAX: Atelectatic changes of lung bases. ABDOMEN: Liver: There is fatty infiltration of liver which is enlarged. No focal mass. Gallbladder: The gallbladder is normal. Spleen: The spleen is not enlarged. Small calcified granulomas present. Pancreas: The pancreas is unremarkable. Adrenal Glands: The adrenal glands are unremarkable. Kidneys: Punctate 2-3 mm calculus is present within the superior pole of the right kidney. No hydronephrosis. No masses within limitations of this noncontrast exam. There is mild bilateral perinephric stranding, nonspecific. Abdominal Aorta: The abdominal aorta is nonaneurysmal. Nodes: No enlarged retroperitoneal or mesenteric lymphadenopathy. Bowel: No bowel obstruction or inflammatory changes of the large or small bowel. Appendix is normal. Ascites: No ascites or fluid collections. PELVIS: Pelvis: No mass, fluid collection or significant adenopathy. Nonspecific stranding/granulation is present within the anterior abdominal wall at the site of prior laceration. Bones and soft tissues: Degenerative changes of the osseous structures. No suspicious lesions. Old posttraumatic deformity of the coccyx. IMPRESSION: 1. Nonobstructive right nephrolithiasis. Nonspecific bilateral perinephric stranding. Please correlate for signs of infection. 2. Hepatic steatosis. [facility]-[id number] Performing Organization Address City/State/Zipcode Phone Number [facility] [address] [place] [address] * POC glucose (07/18/2018 7:15 PM INFANT TEACHER) Only the most recent of 88 results within the time period is included. [facility] POC glucose 283 (H) 65 - 100 mg/dL [place] Comment: ANASTASIYA QUINN Meter ID: [id number] [facility] Parks Worker: [facility] Specimen Performing Organization Address City/[facility]/Zipcode Phone Number [facility] [place] [address] PATHOLOGY AND [facility] MEDICINE [facility] [address] * Partial thromboplastin time, activated (07/14/2018 12:00 PM INFANT TEACHER) Only the most recent of 3 results within the time period is included. [facility] PTT 31.0 23.0 - 36.0 sec [place] Comment: ANASTASIYA QUINN PTT therapeutic range for [facility] unfractionated heparin is HOSPITAL 61.0-112.0 seconds which corresponds to Anti-Xa 0.3-0.7 U/ml. Note:Change in Panic Value The PTT Panic Value is changing from 110 sec. to 100 sec. due to new instrumentation and reagents. Correlation studies have been performed to validate this result. Specimen Blood Performing Organization Address City/[facility]/Zipcode Phone Number [facility] [place] [address] PATHOLOGY AND [facility] MEDICINE [place] [address] [address] * Prothrombin time with INR (07/14/2018 12:00 PM INFANT TEACHER) Only the most recent of 5 results within the time period is included. [facility] Prothrombin 13.4 11.5 - 14.5 sec [place] time [facility] INR 1.05 [place] Comment: ANASTASIYA QUINN For patients on anticoagulant DEREJE therapy, reference ranges [facility]OSPITAL below: Indication: INR Value Treatment of Venous Thrombosis, 2.0-3.0 pulmonary emboli, or prophylaxis of a venous thrombosis, or systemic emboli. High dose, high risk patients 3.0-4.5 with mechanical valves. NOTE:INR values over 3.0 are sometimes associated with gastrointestinal hemorrhage, especially values over 4.0. Specimen Blood Performing Organization Address City/State/Zipcode Phone Number [facility] OF [address] [place] [address] PATHOLOGY AND GENOMIC MEDICINE [facility] [address] [place], [place] [id number] [place] [address] * CT Lumbar Spine Wo Contrast (07/13/2018 11:35 PM INFANT TEACHER) Only the most recent of 3 results within the time period is included. Specimen Narrative Performed At EXAMINATION: CT LUMBAR SPINE WO CONTRAST [facility] CLINICAL HISTORY: fall. Lumbar spine trauma COMPARISON:Lumbar spine x-rays from June 23, 2018. CT lumbar spine from April 22, 2018. TECHNIQUE: Axial noncontrast enhanced images of lumbar spine was performed with coronal sagittal reconstruction algorithms. CT scans are performed using radiation dose reduction techniques. Technical factors are evaluated and adjusted to ensure appropriate moderation of exposure. Automated dose management technology is applied to adjust radiation exposure while achieving a diagnostic quality image. FINDINGS: There is no evidence of acute fracture in the lumbar spine. The vertebral and disc space height, alignment and degenerative changes are relatively stable. There is greater posterior disc space narrowing at L5-S1. There is facet hypertrophic changes greater in the lower lumbar region. There is severe left and moderate to severe right L5-S1 foramen stenosis with asymmetric spondylosis in the left paracentral, foramen and extraforaminal region. There is less foramen stenosis at the other levels from degenerative changes and in part congenital in nature. The study was not performed for proper imaging of structures in the abdomen and pelvis. There is mild calcification of wells of some of the arteries. There is nonspecific partially visualized dilated bladder. There is a punctate right kidney stone. 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 There is mild nonspecific acute angulation of the sacrum at the upper S2 level. This is stable compared to the CT lumbar spine from March 26, 2018. IMPRESSION: No evidence of acute fracture in the lumbar spine. [facility]-[id number] Procedure Note Hm Interface, Radiology Results Incoming - 07/13/2018 11:48 PM INFANT TEACHER EXAMINATION: CT LUMBAR SPINE WO CONTRAST CLINICAL HISTORY: fall. Lumbar spine trauma COMPARISON: Lumbar spine x-rays from June 23, 2018. CT lumbar spine from April 22, 2018. TECHNIQUE: Axial noncontrast enhanced images of lumbar spine was performed with coronal sagittal reconstruction algorithms. CT scans are performed using radiation dose reduction techniques. Technical factors are evaluated and adjusted to ensure appropriate moderation of exposure. Automated dose management technology is applied to adjust radiation exposure while achieving a diagnostic quality image. FINDINGS: There is no evidence of acute fracture in the lumbar spine. The vertebral and disc space height, alignment and degenerative changes are relatively stable. There is greater posterior disc space narrowing at L5-S1. There is facet hypertrophic changes greater in the lower lumbar region. There is severe left and moderate to severe right L5-S1 foramen stenosis with asymmetric spondylosis in the left paracentral, foramen and extraforaminal region. There is less foramen stenosis at the other levels from degenerative changes and in part congenital in nature. The study was not performed for proper imaging of structures in the abdomen and pelvis. There is mild calcification of wells of some of the arteries. There is nonspecific partially visualized dilated bladder. There is a punctate right kidney stone. 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 There is mild nonspecific acute angulation of the sacrum at the upper S2 level. This is stable compared to the CT lumbar spine from March 26, 2018. IMPRESSION: No evidence of acute fracture in the lumbar spine. [facility]-[id number] Performing Organization Address City/State/Zipcode Phone Number [facility] [address] [place] [address] * XR Cervical Spine Complete (06/23/2018 2:42 PM INFANT TEACHER) Specimen Narrative Performed At EXAMINATION: XR CERVICAL SPINE COMPLETE [facility] CLINICAL HISTORY: Neck paininitial exam COMPARISON:None IMPRESSION: 5 views of the cervical spine are interpreted. Vertebral heights are preserved. No fracture or aggressive bone lesion is seen. No significant spondylosis is seen. No significant spondylotic canal or foraminal stenosis is suggested. The prevertebral soft tissues are unremarkable. [id number] Procedure Note Interface, Radiology Results Incoming - 06/23/2018 2:47 PM INFANT TEACHER EXAMINATION: XR CERVICAL SPINE COMPLETE CLINICAL HISTORY: Neck pain initial exam COMPARISON: None IMPRESSION: 5 views of the cervical spine are interpreted. Vertebral heights are preserved. No fracture or aggressive bone lesion is seen. No significant spondylosis is seen. No significant spondylotic canal or foraminal stenosis is suggested. The prevertebral soft tissues are unremarkable. [facility]-[id number] Performing Organization Address [facility] Centercode Phone Number [facility] [address] [place] [address] * XR Lumbar Spine 2 Or 3 Vw (06/23/2018 2:42 PM INFANT TEACHER) Only the most recent of 2 results within the time period is included. Specimen Narrative Performed At EXAMINATION:XR LUMBAR SPINE 2 OR 3 VW [facility] CLINICAL HISTORY:Back [id number] red flagsno prior management COMPARISON:None. IMPRESSION: 3 views of the lumbar spine demonstrate 5 nonrib-bearing lumbar vertebrae with mild disc space narrowing at L4-5 and L5-S1 and moderate disc space narrowing at T11-12 associated with anterior osteophyte formation. There is no definite spondylolysis or spondylolisthesis or compression fracture deformity. [facility]-[id number] Procedure Note Interface, Radiology Results Incoming - 06/23/2018 2:47 PM INFANT TEACHER EXAMINATION: XR LUMBAR SPINE 2 OR 3 VW CLINICAL HISTORY: Back pain 6wks no red flags no prior management COMPARISON: None. IMPRESSION: 3 views of the lumbar spine demonstrate 5 nonrib-bearing lumbar vertebrae with mild disc space narrowing at L4-5 and L5-S1 and moderate disc space narrowing at T11-12 associated with anterior osteophyte formation. There is no definite spondylolysis or spondylolisthesis or compression fracture deformity. [facility]-[id number] Performing Organization Address [facility]/Zipcode Phone Number [facility] [address] [place] [address] * XR Chest 2 Vw (06/23/2018 2:41 PM INFANT TEACHER) Only the most recent of 5 results within the time period is included. Specimen Narrative Performed At EXAMINATION:XR CHEST 2 VW [facility] CLINICAL HISTORY:Abd traumabluntstable COMPARISON:06/03/2018 IMPRESSION: PA and lateral radiographs of the chest are reviewed. The heart size is normal. Lungs are clear. There is no pleural effusion or pneumothorax. There is no acute osseous abnormality. [facility]-[id number] Procedure Note Hm Interface, Radiology Results Incoming - 06/23/2018 2:46 PM INFANT TEACHER EXAMINATION: XR CHEST 2 VW CLINICAL HISTORY: Abd trauma blunt stable COMPARISON: 06/03/2018 IMPRESSION: PA and lateral radiographs of the chest are reviewed. The heart size is normal. Lungs are clear. There is no pleural effusion or pneumothorax. There is no acute osseous abnormality. [facility]-[id number] Performing Organization Address City/[facility]/Zipcode Phone Number [facility] [address] [place] [address] * Lipase level (05/20/2018 12:37 AM CDT) Only the most recent of 4 results within the time period is included. Lipase 38 13 - 60 U/L [facility] DE[facility] OF PATHOLOGY AND GENOMIC MEDICINE Specimen Plasma specimen Performing Organization Address City/[facility]/Zipcode Phone Number [facility] DE[facility] [address] [address] PATHOLOGY AND GENOMIC MEDICINE * Lipid panel (05/13/2018 7:28 AM CDT) Only the most recent of 4 results within the time period is included. Cholesterol 168 <200 mg/dL [facility] DEPARTMENT OF PATHOLOGY AND GENOMIC MEDICINE Triglycerides 303 (H) <150 mg/dL [facility] DEPARTMENT OF PATHOLOGY AND GENOMIC MEDICINE HDL cholesterol 34 (L) >40 mg/dL [facility] DEPARTMENT OF PATHOLOGY AND GENOMIC MEDICINE LDL cholesterol 109 (H)Comment: Result <100 mg/dL [facility] obtained by direct LDL DEPARTMENT OF measurement PATHOLOGY AND GENOMIC MEDICINE Lipid panel SeeBelow [facility] interpretation Comment: DEPARTMENT OF Total Cholesterol PATHOLOGY AND (mg/dL) GENOMIC <200 MEDICINE Desirable 200-239Borderline -high >=240High Triglycerides (mg/dL) <150 Normal 150-199Borderline -high 200-499High >=500Very high HDL Cholesterol (mg/dL) <40Low (male) <40Low (female) LDL Cholesterol (mg/dL) <100 Optimal 100-129Near or above optimal 130-159Borderline -high 160-189High >=190Very high Risk Catergories that modify LDL goals. Risk Catergories LDL goal (mg/dL) CHD and CHD risk equivalent<100 (10-year risk >20%) Multiple (2+) risk factors <130 (10-year risk=<20%) 0-1 risk factors <160 (<10-year risk) Defining levels of lipids in metabolic syndrome Triglycerides >=150 mg/dL HDL Cholesterol Men <40 mg/dL Women <40 mg/dL Non-HDL cholesterol is a second target for therapy in persons with high triglycerides (>=200 mg/dL) Specimen Plasma specimen Performing Organization Address City/[facility]/Zipcode Phone Number [facility] DEPARTMENT [address] [place] [address] PATHOLOGY AND GENOMIC MEDICINE * XR Shoulder 2+ Vw Left (05/02/2018 5:58 PM CDT) Specimen Narrative Performed At EXAMINATION:XR SHOULDER 2VW LEFT [facility] CLINICAL HISTORY:Shoulder paininitial exam COMPARISON:None. IMPRESSION: There is no evidence of acute left shoulder fracture or dislocation. [facility]-[id number] Procedure Note Hm Interface, Radiology Results Incoming - 05/02/2018 6:08 PM CDT EXAMINATION: XR SHOULDER 2 VW LEFT CLINICAL HISTORY: Shoulder pain initial exam COMPARISON: None. IMPRESSION: There is no evidence of acute left shoulder fracture or dislocation. [facility]-[id number] Performing Organization Address [facility]/Zipcode Phone Number [facility] [address] [place] [address] * T4, free (05/02/2018 5:55 AM CDT) Only the most recent of 2 results within the time period is included. T4, free 0.91 0.90 - 1.70 ng/dL [facility] DEPARTMENT OF PATHOLOGY AND GENOMIC MEDICINE Specimen Plasma specimen Performing Organization Address City/[facility]/Zipcode Phone Number [facility] [address] [facility] [place] [address] PATHOLOGY AND GENOMIC MEDICINE * Hemoglobin A1c (05/02/2018 5:55 AM CDT) Only the most recent of 3 results within the time period is included. Hemoglobin A1C 7.2 (H) 4.0 - 6.0 % [facility] Comment: OF PATHOLOGY AND GENOMIC MEDICINE Less than 6% - Goal of therapy for Type II Diabetes Less than 7%-Goal of therapy for Type I Diabetes Less than 8%-Accepta ble control for Type I or Type II Diabetes Greater than 8%-Unacceptabl e control; action indicated. (ADA94) Specimen Blood Performing Organization Address City/[facility] Centercode Phone Number [facility] [address] [place] [address] PATHOLOGY AND GENOMIC MEDICINE * Basic metabolic panel (05/02/2018 5:55 AM CDT) Only the most recent of 11 results within the time period is included. Sodium 138 135 - 150 mEq/L [facility] DEPARTMENT OF PATHOLOGY AND GENOMIC MEDICINE Potassium 4.2 3.5 - 5.0 mEq/L [facility] DEPARTMENT OF PATHOLOGY AND GENOMIC MEDICINE Chloride 100 98 - 112 mEq/L [facility] DEPARTMENT OF PATHOLOGY AND GENOMIC MEDICINE CO2 26 24 - 31 mmol/L [facility] DEPARTMENT OF PATHOLOGY AND GENOMIC MEDICINE Anion gap 12@ANIO 7 - 15 mEq/L [facility] DEPARTMENT OF PATHOLOGY AND GENOMIC MEDICINE BUN 11 7 - 18 mg/dL [facility] DEPARTMENT OF PATHOLOGY AND GENOMIC MEDICINE Creatinine 1.10 0.70 - 1.20 mg/dL [facility] DEPARTMENT OF PATHOLOGY AND GENOMIC MEDICINE Glucose 135 (H) 65 - 100 mg/dL [facility] DEPARTMENT OF PATHOLOGY AND GENOMIC MEDICINE Calcium 9.3 8.3 - 10.2 mg/dL [facility] DEPARTMENT OF PATHOLOGY AND GENOMIC MEDICINE Specimen Plasma specimen Performing Organization Address City/[facility] Centercode Phone Number [facility] [address] [place] [address] PATHOLOGY AND GENOMIC MEDICINE * XR Knee 4+ Vw Left (05/02/2018 12:19 AM CDT) Only the most recent of 2 results within the time period is included. Specimen Narrative Performed At XR KNEE 4VW LEFT [facility] CLINICAL INDICATION:left knee injury COMPARISON:None. IMPRESSION: There is no acute fracture or dislocation. There is no knee joint effusion. There is mild osteoarthrosis of the knee. Osseous mineralization is normal. [facility]-[id number] Procedure Note Hm Interface, Radiology Results Incoming - 05/02/2018 12:27 AM CDT XR KNEE 4 VW LEFT CLINICAL INDICATION: left knee injury COMPARISON: None. IMPRESSION: There is no acute fracture or dislocation. There is no knee joint effusion. There is mild osteoarthrosis of the knee. Osseous mineralization is normal. [facility]-[id number] Performing Organization Address City/State/Zipcode Phone Number [facility] [address] [place] [address] * Alcohol level, blood (04/29/2018 9:40 PM CDT) Alcohol None Detected mg/dL [facility] Comment: DEPARTMENT OF Normal PATHOLOGY AND None GENOMIC Detected MEDICINE Legal Intoxication in [place]80 mg/dL (0.08%) - Whole Blood Toxic Concentration 200 mg/dL (0.2%) Potentially Fatal3 50 - 500 mg/dL (0.35 - 0.5%) Alcohol percent None Detected % [facility] DEPARTMENT OF PATHOLOGY AND GENOMIC MEDICINE Specimen Plasma specimen Performing Organization Address City/[facility] Centercode Phone Number [facility] DEPARTMENT [address] [place] [address] [place] [address] PATHOLOGY AND GENOMIC MEDICINE * Valproic acid level (04/28/2018 1:45 PM CDT) Only the most recent of 7 results within the time period is included. Pathologist [facility] Valproic acid <3.1 (L) 50.0 - 100.0 ug/mL [facility] Comment: OF PATHOLOGY Therapeutic Range: AND GENOMIC 50 - 100 ug/mL MEDICINE Specimen Blood Performing Organization Address City/[facility]/Zipcode Phone Number [facility] [address] [place] [address] PATHOLOGY AND GENOMIC MEDICINE * Keppra (Levetiracetam) level (04/27/2018 2:20 PM CDT) Levetiracetam <2 (L) 12 - 46 ug/mL [facility] Comment: INTERPRETIVE INFORMATION: Keppra (Levetiracetam) Therapeutic Range:12-46 ug/mL Toxic: Not well Established Pharmacokinetics of levetiracetam are affected by renal function. Adverse effects may include somnolence, weakness, headache and vomiting. This levetiracetam (Keppra) immunoassay uses the [employer] reagents, which has known cross-reactivity with the drug brivaracetam (Briviact) and may report inaccurate results. Patients transitioning from levetiracetam to brivaracetam or those who are using both medications should not monitor drug concentrations with the [facility] assay. These patients should be monitored using a validated chromatographic methodology that distinguishes between drugs to determine drug concentrations. Performed by [facility], [address] [place] [address] [email or web address] Kevin Herrera MD - Lab. Director Specimen Serum Performing Organization Address City/State/Zipcode Phone Number [facility] [address] [place] [address] * CRITICAL CARE (04/27/2018 4:14 AM CDT) Narrative Performed At Kai Thomason MD 04/27/20184:14 AM Critical Care Performed by: KAI THOMASON Authorized by: KAI THOMASON Critical care provider statement: Critical care time (minutes):33 Critical care start time:04/27/2018 1:00 AM Critical care end time:04/27/2018 4:14 AM Critical care time was exclusive of:Separately billable procedures and treating other patients and teaching time Critical care was necessary to treat or prevent imminent or life-threatening deterioration of the following conditions:Circulatory failure, respiratory failure and dehydration Critical care was time spent personally by me on the following activities:Blood draw for specimens, development of treatment plan with patient or surrogate, discussions with primary provider, evaluation of patient's response to treatment, examination of patient, obtaining history from patient or surrogate, ordering and performing treatments and interventions, ordering and review of laboratory studies, ordering and review of radiographic studies, pulse oximetry, re-evaluation of patient's condition and review of old charts Vinayak 'yes' if you are taking over critical care for this patient from another provider.: no * CT Angiogram Pe Chest (04/27/2018 2:35 AM CDT) Specimen Narrative Performed At CT ANGIOGRAM PE CHEST [facility] CLINICAL INDICATION: r o PE COMPARISON:Chest radiograph 04/27/2018. TECHNIQUE:CT angiographic images of the chest were obtained during intravenous administration of iodinated contrast.Computerized, reformatted images and 3-D MIP images were obtained and archived (per CT pulmonary embolism protocol). CT scans are performed using radiation dose reduction techniques (iterative reconstruction and/or automated exposure control). Technical factors are evaluated and adjusted to ensure appropriate moderation of exposure. Automated dose management technology is applied to adjust radiation exposure while achieving a diagnostic quality image. FINDINGS: Pulmonary arteries: Diagnostic quality of study is adequate for the evaluation of pulmonary embolism. There is no evidence of acute or chronic pulmonary embolism.No evidence of right heart strain. The main pulmonary artery measures 29 mm in luminal diameter. Aorta:No aneurysm or dissection. Lungs and large airways:Few punctate calcified granulomas. Dependent subsegmental atelectasis/scarring. No focal or confluent airspace consolidation. Pleura:No pleural effusion, pleural thickening, or pneumothorax. Heart and pericardium:Heart size is normal. No pericardial effusion. Mediastinum and douglas:No mass or hematoma. Lymph nodes:No pathological adenopathy in the douglas, axilla or mediastinum. Chest wall:Unremarkable. Bones:Mild degenerative changes. Upper abdomen: Hepatic steatosis. Spleen is enlarged up to 16.7 cm. IMPRESSION: 1. Negative CTA examination for pulmonary embolism. 2. Lungs without focal or confluent airspace consolidation. 3. Hepatic steatosis. Splenomegaly. [facility]-[id number] Procedure Note [facility], Radiology Results - 04/27/2018 2:[address] ANGIOGRAM PE CHEST CLINICAL INDICATION: r o PE COMPARISON: Chest radiograph 04/27/2018. TECHNIQUE: CT angiographic images of the chest were obtained during intravenous administration of iodinated contrast. Computerized, reformatted images and 3-D MIP images were obtained and archived (per CT pulmonary embolism protocol). CT scans are performed using radiation dose reduction techniques (iterative reconstruction and/or automated exposure control). Technical factors are evaluated and adjusted to ensure appropriate moderation of exposure. Automated dose management technology is applied to adjust radiation exposure while achieving a diagnostic quality image. FINDINGS: Pulmonary arteries: Diagnostic quality of study is adequate for the evaluation of pulmonary embolism. There is no evidence of acute or chronic pulmonary embolism. No evidence of right heart strain. The main pulmonary artery measures 29 mm in luminal diameter. Aorta: No aneurysm or dissection. Lungs and large airways: Few punctate calcified granulomas. Dependent subsegmental atelectasis/scarring. No focal or confluent airspace consolidation. Pleura: No pleural effusion, pleural thickening, or pneumothorax. Heart and pericardium: Heart size is normal. No pericardial effusion. Mediastinum and douglas: No mass or hematoma. Lymph nodes: No pathological adenopathy in the douglas, axilla or mediastinum. Chest wall: Unremarkable. Bones: Mild degenerative changes. Upper abdomen: Hepatic steatosis. Spleen is enlarged up to 16.7 cm. IMPRESSION: 1. Negative CTA examination for pulmonary embolism. 2. Lungs without focal or confluent airspace consolidation. 3. Hepatic steatosis. Splenomegaly. [facility]-[id number] Performing Organization Address City/[facility]/Zipcode Phone Number [facility] [address] [place] [address] * D-dimer (04/27/2018 12:44 AM CDT) D-dimer <0.27 0.00 - 0.40 ug/mL [facility] Comment: FEU OF PATHOLOGY Units are ug/ml Fibrinogen AND GENOMIC Equivalent Unit. MEDICINE When combined with low clinical probability, D-dimer results of less than 0.5 ug/ml FEU have a good negativepredictive value in excluding PE or DVT. For D-dimer results greater than 0.5ug/ml FEU further testing is indicated if PE or DVT is suspectedclinically. Elevated D-dimer results have been reported in DVT, PE, and DIC cases and may indicate the presence of a clot. D-dimer results may be elevated due to old age, , inflammatory diseases, trauma, post-operative states, sepsis, and malignancies. Specimen Blood Performing Organization Address [facility] Centercomo Phone Number [place] [address] [place] [address] PATHOLOGY AND GENOMIC MEDICINE * Lactic acid level, SEPSIS - Now and repeat 2x every 3 hours (04/22/2018 1:08 AM CDT) Only the most recent of 2 results within the time period is included. Lactic acid 1.7 0.5 - 2.2 mmol/L [facility] DEPARTMENT OF PATHOLOGY AND GENOMIC MEDICINE Specimen Blood Performing Organization Address [facility] Centercode Phone Number [place] [phone] PATHOLOGY AND GENOMIC MEDICINE * EEG (routine) (04/14/2018 2:30 PM CDT) Narrative Performed At ROUTINE EEG REPORT Patient Name: Tejinder Welsh Date of : 1970 Gender: male Date of Procedure: 04/14/2018 Indication Chest pain Background activity 5-6 c/s. Central activity 4-6 c/s. No focal or lateralizing features detected. Awake Recording: was performed, no abnormality detected Sleep Recording: was performed, no abnormality detected Hyperventilation: was not performed Photic Stimulation: was performed, no abnormality detected Impression Mild slowness of background activity compatible with diffuse encephalopathic process. Clinical correlation required for full interpretation of these findings. ICD10 Code/Diagnosis: Chest pain * MRA Neck Wo Contrast (04/13/2018 6:59 PM CDT) Specimen Narrative Performed At EXAMINATION:MRA NECK WO CONTRAST [facility] CLINICAL HISTORY:possible SZ COMPARISON: Carotid Doppler ultrasound dated 02/21/2018. FINDINGS: Noncontrast MRA of the neck is performed. Source images and three-dimensional reformats are provided. Motion degrades the exam. The common and internal carotid arteries appear normal in caliber. Evaluation for mild contour irregularity is limited by motion. The vertebral arteries are patent. No vertebral artery stenosis or dissection is seen. IMPRESSION: Unremarkable MRA of the neck. Motion mildly degrades the exam. [facility]-[id number] Procedure Note Interface, Radiology Results Incoming - 04/13/2018 10:04 PM CDT EXAMINATION: MRA NECK WO CONTRAST CLINICAL HISTORY: possible SZ COMPARISON: Carotid Doppler ultrasound dated 02/21/2018. FINDINGS: Noncontrast MRA of the neck is performed. Source images and three- dimensional reformats are provided. Motion degrades the exam. The common and internal carotid arteries appear normal in caliber. Evaluation for mild contour irregularity is limited by motion. The vertebral arteries are patent. No vertebral artery stenosis or dissection is seen. IMPRESSION: Unremarkable MRA of the neck. Motion mildly degrades the exam. [facility]-[id number] Performing Organization Address City/State/Zipcode Phone Number [facility] [address] [place] [address] * MRA Head Wo Contrast (04/13/2018 6:44 PM CDT) Specimen Narrative Performed At EXAMINATION:MRA HEAD WO CONTRAST [facility] CLINICAL HISTORY:possible sz COMPARISON:None. TECHNIQUE: Head MRA using 3D [id number]-bt-[id number] technique with multi-planar MIP and 3D reconstruction. FINDINGS: There is normal flow-related signal with no significant stenosis or occlusion along bilateral intracranial ICAs, ACAs, and MCAs. The anterior communicating artery complex is unremarkable. There is normal flow-related signal with no significant stenosis or occlusion along bilateral vertebral arteries, basilar artery, cerebellar arteries, and vmware architect. The right vertebral artery is dominant. The posterior communicating arteries are not well visualized. There is no evidence of cerebral aneurysm in the proximal [place] within limits of MRA technique. IMPRESSION: Unremarkable head MRA with no significant stenosis or occlusion in the proximal [place]. [facility]-[id number] Procedure Note Interface, Radiology Results - 04/13/2018 7:01 PM CDT EXAMINATION: MRA HEAD WO CONTRAST CLINICAL HISTORY: possible sz COMPARISON: None. TECHNIQUE: Head MRA using 3D [id number]-ly-azodmp technique with multi-planar MIP and 3D reconstruction. FINDINGS: There is normal flow-related signal with no significant stenosis or occlusion along bilateral intracranial ICAs, ACAs, and MCAs. The anterior communicating artery complex is unremarkable. There is normal flow-related signal with no significant stenosis or occlusion along bilateral vertebral arteries, basilar artery, cerebellar arteries, and vmware architect. The right vertebral artery is dominant. The posterior communicating arteries are not well visualized. There is no evidence of cerebral aneurysm in the proximal [place] within limits of MRA technique. IMPRESSION: Unremarkable head MRA with no significant stenosis or occlusion in the proximal [place]. [facility]-[id number] Performing Organization Address City/State/Zipcode Phone Number [facility] [address] [place] [address] * MRI Brain Wo Contrast (04/13/2018 6:41 PM CDT) Specimen Narrative Performed At [facility] EXAMINATION:MRI BRAIN WO CONTRAST CLINICAL HISTORY:SZ COMPARISON: CT brain dated 03/29/2018. FINDINGS: Noncontrast MRI of the brain is performed per seizure protocol. Motion degrades the exam. Diffusion imaging demonstrates no abnormal restricted diffusion. Involutional changes of brain are present. No evidence of cortical dysplasia, mass, chronic insult, heterotopic soriano matter, or mesial temporal sclerosis is seen. No extra-axial collection or mass effect is seen. No hemorrhage is identified. Major vascular flow-voids are preserved. IMPRESSION: Unremarkable MRI of the brain. [facility]-[id number] Procedure Note [facility], Radiology Results - 04/13/2018 10:02 PM CDT EXAMINATION: MRI BRAIN WO CONTRAST CLINICAL HISTORY: SZ COMPARISON: CT brain dated 03/29/2018. FINDINGS: Noncontrast MRI of the brain is performed per seizure protocol. Motion degrades the exam. Diffusion imaging demonstrates no abnormal restricted diffusion. Involutional changes of brain are present. No evidence of cortical dysplasia, mass, chronic insult, heterotopic soriano matter, or mesial temporal sclerosis is seen. No extra-axial collection or mass effect is seen. No hemorrhage is identified. Major vascular flow-voids are preserved. IMPRESSION: Unremarkable MRI of the brain. [facility]-[id number] Performing Organization Address City/State/Zipcode Phone Number [facility] [address] [place] [address] * Urinalysis, automated with microscopy (04/13/2018 12:09 AM CDT) Color, UA Straw [facility] DEPART[facility] OF PATHOLOGY AND GENOMIC MEDICINE Appearance, UA Clear [facility] DE[facility] OF PATHOLOGY AND GENOMIC MEDICINE Specific 1.007 1.001 - 1.035 [facility] DEPARTMENT gravity, OF PATHOLOGY AND GENOMIC MEDICINE pH, UA 5.0 5.0 - 8.5 [facility] OF PATHOLOGY AND GENOMIC MEDICINE Protein, UA Negative Negative [facility] DE[facility]MENT OF PATHOLOGY AND GENOMIC MEDICINE Glucose, UA 3+ (A) Negative [facility] OF PATHOLOGY AND GENOMIC MEDICINE Ketones, UA Negative Negative [facility]MENT OF PATHOLOGY AND GENOMIC MEDICINE Bilirubin, UA Negative Negative [facility]MENT OF PATHOLOGY AND GENOMIC MEDICINE Blood, UA Small (A) Negative [facility] DE[facility]MENT OF PATHOLOGY AND GENOMIC MEDICINE Nitrite, UA Negative Negative [facility] DEPARTMENT OF PATHOLOGY AND GENOMIC MEDICINE Urobilinogen, Negative <2.0 [facility] UA OF PATHOLOGY AND GENOMIC MEDICINE Leukocyte Negative Negative [facility] esterase, OF PATHOLOGY AND GENOMIC MEDICINE WBC, UA <1 0 - 1 /HPF [facility]MENT OF PATHOLOGY AND GENOMIC MEDICINE RBC, UA 1 0 - 5 /HPF [facility] OF PATHOLOGY AND GENOMIC MEDICINE Bacteria, UA None seen None seen [facility] DE[facility] OF PATHOLOGY AND GENOMIC MEDICINE Yeast, UA None seen [facility] OF PATHOLOGY AND GENOMIC MEDICINE Yeast with None seen [facility] DEPARTMENT pseudohyphae, OF PATHOLOGY UA AND GENOMIC MEDICINE Specimen Urine Performing Organization Address City/State/Zipcode Phone Number [facility] [address] [place] [address] PATHOLOGY AND GENOMIC MEDICINE * Estimated GFR (04/12/2018 10:45 PM CDT) Only the most recent of 15 results within the time period is included. GFR Non Af Amer 80 mL/min/1.73 m2 [facility] OF PATHOLOGY AND GENOMIC MEDICINE GFR Af Amer >90 mL/min/1.73 m2 [facility] DEPARTMENT Comment: OF PATHOLOGY Chronic kidney disease: <60 AND GENOMIC mL/min/1.73m2 MEDICINE Kidney failure: <15 mL/min/1.73m2 The estimated GFR is calculated from the IDMS-traceable Modification of Diet in Renal Disease Equation. The accuracy of the calculation is poor when the creatinine is normal. Calculated values >90 mL/min/1.73m2 are not reported. This equation has not been validated in children (<18 years), women, the elderly (>70 years), or ethnic groups other than Caucasians and Americans. Specimen Plasma specimen Performing Organization Address City/State/Zipcode Phone Number [facility] DEPARTMENT OF [address] [facility] [place] [address] PATHOLOGY AND GENOMIC MEDICINE * Beta hydroxybutyrate (03/29/2018 4:16 PM CDT) Beta 0.27 0.02 - 0.27 mmol/L [facility] DEPARTMENT hydroxybutyrate OF PATHOLOGY AND GENOMIC MEDICINE Specimen Blood Performing Organization Address [facility] Phone Number [address] [place] [address] PATHOLOGY AND GENOMIC MEDICINE * XR Humerus Right (03/26/2018 8:42 PM CDT) Specimen Narrative Performed At EXAMINATION: [facility] XR HUMERUS RIGHT CLINICAL HISTORY: arm pain COMPARISON: Right shoulder radiographs, obtained on 02/14/2018. FINDINGS: Mineralization is within normal limits. Fracture, subluxation and periosteal reaction are not seen. The glenohumeral and elbow joint appear anatomically aligned. Visualized portions of the chest are normal. IMPRESSION: Normal right humerus. [Report Create Workstation] Procedure Note Interface, Radiology Results Incoming - 03/26/2018 8:52 PM CDT EXAMINATION: XR HUMERUS RIGHT CLINICAL HISTORY: arm pain COMPARISON: Right shoulder radiographs, obtained on 02/14/2018. FINDINGS: Mineralization is within normal limits. Fracture, subluxation and periosteal reaction are not seen. The glenohumeral and elbow joint appear anatomically aligned. Visualized portions of the chest are normal. IMPRESSION: Normal right humerus. [Report Create Workstation] Performing Organization Address City/[facility]/Zipcode Phone Number [facility] [address] [place] [address] * CT Abdomen Pelvis W Contrast (03/23/2018 1:25 AM CDT) Specimen Narrative Performed At EXAMINATION:CT ABDOMEN PELVIS W CONTRAST [facility] CLINICAL HISTORY:abdominal painevaluate for possible intraabdominal abscess TECHNIQUE: Multiple axial images of the abdomen and pelvis were obtained following intravenous administration of iodinated contrast. Sagittal and coronal computerized reformatted images were also obtained. CT imaging was performed with iterative reconstruction technique and/or automated exposure control to reduce radiation dose. COMPARISON:None. IMPRESSION: Diffuse fatty infiltration of the liver, which is enlarged measuring 19.7 cm in length. Focal fatty sparing about the gallbladder fossa is seen. Gallbladder, spleen, pancreas, and adrenal glands are normal. Simple cyst is seen of interpolar region of the right kidney. Left kidney is normal. No hydronephrosis or hydroureter. The bladder is normal. No free intraperitoneal fluid or air. Appendix is normal. No gastrointestinal tract obstruction. No acute osseous abnormalities. Soft tissue defect is seen of the right lower abdomen subcutaneous tissues, with suggestion of laceration or ulcerative defect. Some underlying fat stranding is seen. No fluid collections are identified. CONCLUSION: Soft tissue defect is seen of the right lower abdomen subcutaneous tissues, with suggestion of laceration or ulcerative defect. Some underlying fat stranding is seen. No fluid collections are identified. [facility]-[id number] Procedure Note Interface, Radiology Results Incoming - 03/23/2018 1:39 AM CDT EXAMINATION: CT ABDOMEN PELVIS W CONTRAST CLINICAL HISTORY: abdominal pain evaluate for possible intraabdominal abscess TECHNIQUE: Multiple axial images of the abdomen and pelvis were obtained following intravenous administration of iodinated contrast. Sagittal and coronal computerized reformatted images were also obtained. CT imaging was performed with iterative reconstruction technique and/or automated exposure control to reduce radiation dose. COMPARISON: None. IMPRESSION: Diffuse fatty infiltration of the liver, which is enlarged measuring 19.7 cm in length. Focal fatty sparing about the gallbladder fossa is seen. Gallbladder, spleen, pancreas, and adrenal glands are normal. Simple cyst is seen of interpolar region of the right kidney. Left kidney is normal. No hydronephrosis or hydroureter. The bladder is normal. No free intraperitoneal fluid or air. Appendix is normal. No gastrointestinal tract obstruction. No acute osseous abnormalities. Soft tissue defect is seen of the right lower abdomen subcutaneous tissues, with suggestion of laceration or ulcerative defect. Some underlying fat stranding is seen. No fluid collections are identified. CONCLUSION: Soft tissue defect is seen of the right lower abdomen subcutaneous tissues, with suggestion of laceration or ulcerative defect. Some underlying fat stranding is seen. No fluid collections are identified. [facility]-[id number] Performing Organization Address City/State/Zipcode Phone Number [facility] [address] [place] [id number] * Gram stain (03/22/2018 9:39 PM CDT) Only the most recent of 2 results within the time period is included. Gram stain No WBC's or organisms seen. [facility] DEPARTMENT result Comment: OF PATHOLOGY Specimen Information AND GENOMIC Specimen Source: Urine MEDICINE Specimen Site: Clean catch Specimen Urine Performing Organization Address City/[facility]/Zipcode Phone Number [facility] DEPARTMENT OF [address] [place] [address] PATHOLOGY AND GENOMIC MEDICINE * Aerobic culture (03/03/2018 2:31 PM CDT) Aerobic culture Staphylococcus aureus [facility] DEPARTMENT isolate Occasional OF PATHOLOGY , susceptibility to follow AND GENOMIC This organism is Methicillin MEDICINE Resistant. (A) Comment: Specimen Information Specimen Source: Abscess Specimen Site: Abdomen Specimen Tissue - Other- Detailed Description Required Antibiotic Method Susceptibility Organism Ampicillin LIVAN mcg/mL: Resistant Staphylococcus aureus Clindamycin LIVAN >2 mcg/mL: Resistant Staphylococcus aureus Cefazolin LIVAN mcg/mL: Resistant Staphylococcus aureus Erythromycin LIVAN >4 mcg/mL: Resistant Staphylococcus aureus Levofloxacin LIVAN >4 mcg/mL: Resistant Staphylococcus aureus Linezolid LIVAN 2 mcg/mL: Susceptible Staphylococcus aureus Minocycline LIVAN <=1 mcg/mL: Susceptible Staphylococcus aureus Oxacillin LIVAN >2 mcg/mL: Resistant Staphylococcus aureus Penicillin G LIVAN >1 mcg/mL: Resistant Staphylococcus aureus Rifampin LIVAN <=0.5 mcg/mL: Susceptible Staphylococcus aureus Trimethoprim/Sulfamethoxazole LIVAN <=0.5/9.5 mcg/mL: Susceptible Staphylococcus aureus Tetracycline LIVAN <=0.5 mcg/mL: Susceptible Staphylococcus aureus Vancomycin LIVAN 1 mcg/mL: Susceptible Staphylococcus aureus Performing Organization Address City/State/Zipcode Phone Number [facility] DEPARTMENT OF [address] [place] [address] PATHOLOGY AND GENOMIC MEDICINE * Anaerobic culture (03/03/2018 2:31 PM CDT) Anaerobic No anaerobic organisms [facility] DEPARTMENT culture isolate isolated. OF PATHOLOGY Comment: AND GENOMIC Specimen Information MEDICINE Specimen Source: Abscess Specimen Site: Abdomen Specimen Tissue - Other- Detailed Description Required Performing Organization Address City/State/Zipcode Phone Number [facility] DEPARTMENT OF [address] [place] [address] PATHOLOGY AND GENOMIC MEDICINE * Surgical pathology request (03/03/2018 2:28 PM CDT) [facility] OF PATHOLOGY AND GENOMIC MEDICINE Surgical See link below for PDF Lab [facility] DEPARTMENT pathology Report OF PATHOLOGY report AND GENOMIC MEDICINE Result status This is Final Report to [facility] DEPARTMENT [id number] OF PATHOLOGY AND GENOMIC MEDICINE Specimen Performing Organization Address City/[facility] Phone Number [facility] [place] [address] PATHOLOGY AND GENOMIC MEDICINE * Blood culture, aerobic & anaerobic (03/01/2018 11:10 AM CDT) Only the most recent of 2 results within the time period is included. Pathologist [facility] Blood culture No growth after 5 days of [facility] DEPARTMENT isolate incubation. OF PATHOLOGY Comment: AND GENOMIC Specimen Information MEDICINE Specimen Source: Blood Specimen Site: r wrist Specimen Blood Performing Organization Address City/[facility] Phone Number [facility] DEPARTMENT OF [address] [place] [address] PATHOLOGY AND GENOMIC MEDICINE * Thyroid stimulating hormone (03/01/2018 11:06 AM CDT) Pathologist [facility] TSH 1.48 0.27 - 4.20 uIU/mL [facility] DEPARTMENT OF PATHOLOGY AND GENOMIC MEDICINE Specimen Plasma specimen Performing Organization Address City/[facility] Phone Number [facility] [place] [address] PATHOLOGY AND GENOMIC MEDICINE * Lactic acid level (03/01/2018 11:06 AM CDT) Pathologist [facility] Lactic acid 1.0 0.5 - 2.2 mmol/L [facility] DEPARTMENT OF PATHOLOGY AND GENOMIC MEDICINE Specimen Blood Performing Organization Address City/State/[place] [address] PATHOLOGY AND GENOMIC MEDICINE after 02/17/2018 Insurance Type Payer Benefit Subscriber ID Effective Phone Address Plan / Dates Group Exchange BCBS EXCHANGE BLUE xxxxxxxxxxxx [id number] ADVANTAGE resent HMO EXCH Advance Directives Patient has advance care planning documents, and code status on file. For more i nformation, please contact: Ernst Enamorado [address] [place] [address] Date Inactivated Comments Code Status Date Activated 04/28/2018 11:40 PM Full Code 04/27/2018 2:10 AM Code Status decision reached by: Patient
--- OUTSIDE RECORDS SUMMARY | 2019-02-18 01:24 | XMS REPORT | Clinical Summary ---
Author Author ELYSE OneSpin SolutionsEastern Idaho Regional Medical CenterCode Blue [facility] Organization [facility] Address Unknown Phone Unavailable Care Team Providers Care Gristmiller Name Role Phone Pcp, No PCP Unavailable Allergies Comments Active Allergy Reactions Severity Noted Date Codeine Rash Low 04/29/2018 Cephalexin 11/20/2018 Ketorolac Tromethamine Itching 01/26/2016 Methylprednisolone Itching, 01/27/2016 Hives Mirtazapine Itching 04/22/2017 Penicillin Itching 11/30/2016 Penicillins Itching 12/24/2016 Ketorolac Itching 12/24/2016 Medications End Date Status Medication Sig Dispensed Refills Start Date Active hydrOXYzine (VISTARIL) 50 Take 50 mg by 0 MG capsule mouth 3 (three) times daily as needed for Itching. Active PARoxetine (PAXIL) 40 MG Take 60 mg by 0 tabletIndications: mouth nightly Depression associated . with Bipolar Disorder Active gabapentin (NEURONTIN) Take 300 mg 0 300 MG capsule by mouth 3 (three) times daily . Active nortriptyline (PAMELOR) Take 50 mg by 0 50 MG capsuleIndications: mouth 2 (two) depression times daily . Active albuterol HFA (VENTOLIN Inhale 1 puff 0 HFA) 90 mcg/actuation by mouth via inhaler inhaler every 6 (six) hours as needed for Wheezing. Active insulin pen needles (BD Use as 100 each 0 ULTRA-FINE LUZ) 4 mm x directed. 8 32 G Dispense as written, do not substitute. Brand medically necessary.. 05/11/2019 Active metFORMIN (GLUCOPHAGE) Take 1 tablet 60 tablet 0 1000 MG tablet (1,000 mg 8 total) by mouth 2 (two) times daily with breakfast and dinner. Active insulin lispro (HUMALOG Inject 18 20 mL 0 KWIKPEN INSULIN) 100 Units 8 unit/mL InPn subcutaneousl y 3 (three) times daily with meals. 05/31/2019 Active atorvastatin (LIPITOR) 40 Take 1 tablet 30 tablet 2 MG tablet (40 mg total) 8 by mouth nightly. Active clopidogrel (PLAVIX) 75 TK 1 T PO QD 2 mg tablet 9 Active apixaban (ELIQUIS) 5 mg Eliquis 5 mg 0 Tab tablet tablet Active vilazodone HCl (VIIBRYD 40 mg. 0 ORAL) 9 Active TOPIRAMATE ORAL Take one 0 tablet by 9 mouth twice a day. 50 mg twice daily Active clonazePAM (KLONOPIN) 2 Take 2 mg by 0 11/01/ MG tablet mouth 2 (two) 9 times daily as needed for Anxiety . Active INVOKANA 100 mg tablet TK 1 T PO QD 0 9 Active meclizine (ANTIVERT) 25 Take 25 mg by 0 MG tablet mouth 3 (three) times daily as needed. Active lisinopril Take 5 mg by 0 (PRINIVIL,ZESTRIL) 5 MG mouth daily. tablet Active doxepin (SINEQUAN) 25 MG Take 50 mg by 0 capsule mouth nightly. 11/21/2019 Active metoprolol (LOPRESSOR) 25 Take 0.5 90 tablet 0 MG tabletIndications: pt tablets (12.5 9 states taking one time a mg total) by day at HS mouth 2 (two) times daily. 05/09/2018 Discontinued valsartan (DIOVAN) 160 MG Take [...] total) by mouth daily for 90 days. 11/20/2018 Discontinued aspirin 81 MG chewable Take 1 tablet 30 tablet 1 tablet (81 mg total) 8 by mouth daily. 11/20/2018 Discontinued isosorbide mononitrate Take 1 tablet 90 tablet 1 (IMDUR) 30 MG 24 hr (30 mg total) 8 tablet by mouth daily. 05/11/2018 Discontinued insulin glargine (LANTUS) Inject 20 6 mL 1 100 unit/mL (3 mL) InPn Units 8 subcutaneousl y every morning for 30 days. 11/20/2018 Discontinued HYDROcodone-acetaminophen Take 1 tablet 15 tablet 0 (NORCO 5-325) 5-325 mg by mouth 2 8 per tablet (two) times daily as needed for Pain. Max Daily Amount: 2 tablets 05/11/2018 Discontinued metFORMIN (GLUCOPHAGE) Take 1 tablet 0 500 MG tablet (500 mg 8 total) by mouth 2 (two) times daily with breakfast and dinner. 05/11/2018 Discontinued SITagliptin (JANUVIA) 25 Take 1 tablet 0 MG tablet (25 mg total) 8 by mouth daily. 11/20/2018 Discontinued SITagliptin (JANUVIA) 100 Take 1 tablet 30 tablet 0 MG tablet (100 mg 8 total) by mouth daily. 06/10/2018 insulin glargine (LANTUS) Inject 25 15 mL 0 100 unit/mL (3 mL) InPn Units 8 subcutaneousl y 2 (two) times daily for 30 days. 06/30/2018 lidocaine (LIDODERM) 5 % Place 1 patch 30 patch 0 patch onto the skin 8 daily for 30 days Remove & Discard patch within 12 hours or as directed by . 11/21/2018 Discontinued metoprolol (LOPRESSOR) 50 Take 37.5 mg 0 MG tabletIndications: pt by mouth states taking one time a daily . day at HS 12/21/2018 lidocaine (LIDODERM) 5 % Place 2 30 patch 0 patch patches onto 9 the skin daily for 30 days Remove & Discard patch within 12 hours or as directed by MD. 12/01/2018 HYDROcodone-acetaminophen Take 1 tablet 30 tablet 0 (NORCO 5-325) 5-325 mg by mouth 9 per tablet every 6 (six) hours as needed for up to 10 days. Max Daily Amount: 4 tablets Active Problems Problem Noted Date Syncope and collapse 05/29/2018 Hyperglycemia 05/10/2018 Chest pain 12/25/2016 Tobacco abuse 12/25/2016 CAD (coronary artery disease) 12/25/2016 Anxiety 12/25/2016 PTSD (post-traumatic stress disorder) 12/25/2016 Encounters Care Team Description Date Type Specialty Jean Carlos Jones MD Henderson, MD Gerda Ceja Sahar, MD Chest pain, unspecified type (Primary Dx); Myocardial bridge; Obesity, unspecified classification, unspecified obesity type, unspecified whether serious comorbidity present; Acute pain of left knee; Abrasion of left knee, initial encounter; Tobacco abuse; Coronary artery disease involving samish coronary artery of samish heart without angina pectoris 11/20/2018 Emergency Cardiology - 11/21/2018 11/20/2018 Orders Only General Internal Medicine 11/20/2018 Travel Reji Naranjo MD Hyperglycemia (Primary Dx); Other chronic pain 06/06/2018 Emergency Emergency Medicine 06/06/2018 Travel Mac Arreola MD Anxiety 06/05/2018 Emergency Emergency Medicine Gagan Mai MD Adio, MD Nuvia Ward, Mark Anthony Delgado MD Syncope and collapse (Primary Dx); Head injury, acute, initial encounter; Neck pain, acute; Acute bilateral back pain, unspecified back location; Acute hyperglycemia; Tobacco abuse; Coronary artery disease involving samish coronary artery of samish heart without angina pectoris; Precordial pain 05/29/2018 Emergency Cardiology - 05/31/2018 Mouna Krishna RN Diabetes 05/20/2018 Telephone Cardiology Mouna Krishna RN Diabetes 05/19/2018 Telephone Cardiology Juli Saenz MD Tirukkovalluri, Srilakshmi, MD Agrawal, Neeraj, MD Precordial pain (Primary Dx); Tobacco abuse; History of IN (myocardial infarction); Dizziness; Anxiety; Coronary artery disease involving samish coronary artery of samish heart with unstable angina pectoris (HCC); PTSD (post-traumatic stress disorder); Hyperglycemia; Type 2 diabetes mellitus treated with insulin ([facility]) 05/07/2018 Hospital Cardiology - Encounter 05/11/2018 05/07/2018 Orders Only General Internal Medicine after 02/17/2018 Immunizations Name Dates Previously Given Next Due Pneumococcal Conjugate 05/11/2018 (Prevnar) 13-Valent Tdap 11/20/2018 Social History Date Tobacco Use Types Packs/Day Years Used Light Tobacco Smoker 0.25 Smokeless Tobacco: Chew Current User Tobacco Cessation: Ready to Quit: No; Counseling Given: Yes Comments: 1 pack/ q3-4 days Alcohol Use Drinks/Week oz/Week Comments Yes occasional Sex Assigned at Date Recorded Not on file Industry Job Start Date Occupation Not on file Not on file Not on file Travel End Travel History Travel Start No recent travel history available. Last Filed Vital Signs Time Taken Vital Sign Reading 11/21/2018 7:00 AM CDT Blood Pressure 115/70 11/21/2018 7:00 AM CDT Pulse 76 11/21/2018 7:00 AM CDT Temperature 36.4 C (97.6 F) 11/21/2018 11:01 AM CDT Respiratory Rate 18 11/21/2018 11:01 AM CDT Oxygen Saturation 98% 05/08/2018 3:19 AM CDT Inhaled Oxygen 21% Concentration 11/20/2018 5:26 AM CDT Weight 131.3 kg (289 lb 6.4 oz) 11/20/2018 5:26 AM CDT Height 182.9 cm (6') 11/20/2018 5:26 AM CDT Body Mass Index 39.25 Plan of Treatment Not on file Implants Device Identifier Shelf Expiration Date Model / Serial / 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 05/09/2018 [id number] / / [id number] Closure Sys Perclose Progl 6fr Cardiovasc Right: Groin GARCIA [id number] - [id number] [facility] LAB:VASC Implanted: Qty: 1 on 12/26/2016 by Kate Celeste MD Procedures Comments Procedure Name Priority Date/Time Associated Diagnosis RHYTHM STRIP - SCAN 11/22/2018 3:00 PM CDT REPORT OF PROCEDURE - 11/22/2018 ENDOSCOPY SCAN 3:00 PM CDT POCT-GLUCOSE METER Routine 11/21/2018 7:36 AM CDT POCT-GLUCOSE METER Routine 11/20/2018 9:32 PM CDT ECHOCARDIOGRAM REPORT - 11/20/2018 SCAN 9:21 PM CDT RAPID DRUG SCREEN, URINE STAT 11/20/2018 8:15 PM CDT 2D ECHO W/ DOPPLER Routine 11/20/2018 (CW/PW/COLOR) 2:13 PM CDT POCT-GLUCOSE METER Routine 11/20/2018 1:14 PM CDT TROPONIN I Routine 11/20/2018 12:04 PM CDT POCT-GLUCOSE METER Routine 11/20/2018 10:48 AM CDT ECG 12-LEAD Routine 11/20/2018 5:54 AM CDT Procedure Note - Interface, External Ris In - 11/20/2018 5:56 AM CDT Ventricula r Rate 53 BPM Atrial Rate 53 BPM P-R Interval 206 ms QRS Duration 102 ms Q-T Interval 446 ms QTC Calculatio n(Bazett) 418 ms P [place] 26 degrees R [place] 90 degrees T [place] 51 degrees Sinus bradycardi a Rightward axis Nonspecifi c T wave abnormalit y Abnormal ECG When compared with ECG of 8 18:44, Vent. rate has decreased BY 44 BPM Criteria for Inferior infarct are no longer Present Nonspecifi c T wave abnormalit y, worse in Anterior leads ECG 12-LEAD STAT 11/20/2018 5:54 AM CDT LIPID PANEL Routine 11/20/2018 4:07 AM CDT HEMOGLOBIN A1C Routine 11/20/2018 4:07 AM CDT COMPREHENSIVE METABOLIC Routine 11/20/2018 PANEL 4:07 AM CDT CBC W/PLT COUNT & AUTO STAT 11/20/2018 DIFFERENTIAL 1:46 AM CDT MAGNESIUM STAT 11/20/2018 1:46 AM CDT TROPONIN I STAT 11/20/2018 1:46 AM CDT BASIC METABOLIC PANEL (7) STAT 11/20/2018 1:46 AM CDT CBC W/PLT COUNT & AUTO STAT 11/20/2018 DIFFERENTIAL 1:46 AM CDT XR KNEE LEFT COMPLETE (4 STAT 11/20/2018 VIEWS) 1:22 AM CDT XR CHEST 1 VIEW STAT 11/20/2018 PORTABLE/BEDSIDE 1:21 AM CDT ED ECG INTERPRETATION Routine 11/20/2018 1:17 AM CDT ECG 12-LEAD Routine 11/19/2018 11:50 PM CDT REPORT OF PROCEDURE - 11/11/2018 ENDOSCOPY SCAN [...] ms QTC Calculatio n(Bazett) 425 ms P [place] 17 degrees R [place] 40 degrees T [place] 56 degrees Normal sinus rhythm Incomplete right [...] ms QTC Calculatio n(Bazett) 455 ms P [place] 38 degrees R [place] 42 degrees T [place] 42 degrees Sinus rhythm with Possible Premature [...] 12-LEAD STAT 05/07/2018 1:36 PM CDT after 02/17/2018 Results * RHYTHM STRIP - SCAN (11/22/2018 3:00 PM CDT) Only the most recent of 3 results within the time period is included. Narrative Performed At * EKG-SCANNED (11/22/2018 3:00 PM CDT) Only the most recent of 2 results within the time period is included. Narrative Performed At * POC-Glucose meter (11/21/2018 7:36 AM CDT) Only the most recent of 37 results within the time period is included. POC-Glucose Meter 149 (H)Comment: TESTED AT 70 - 110 mg/dL [facility] [place] [address] [facility] [id number] Specimen Blood Performing Organization Address City/State/Zipcode Phone Number [address] [phone] [facility] * ECHOCARDIOGRAM REPORT - SCAN (11/20/2018 9:21 PM CDT) Narrative Performed At * Rapid drug screen, urine (11/20/2018 8:15 PM CDT) Only the most recent of 2 results within the time period is included. Barbiturate Screen Negative Negative [facility] Benzodiazepine Screen Negative Negative [facility] Cocaine (Metab.) Screen Negative Negative [facility] Methadone Screen Negative Negative [facility] Opiate Screen Positive (A) Negative [facility] Cannabinoid Screen Negative Negative [facility] Amph/Methamph Screen Negative Negative [facility] Phencyclidine Screen Negative Negative [facility] Oxycodone Screen Negative Negative [facility] Specimen Urine Narrative Performed At [facility] Cocaine 300 ng/mL [facility] Ltafqurbdiu34 ng/mL Brkjrralbxlfew063 ng/mL Barbiturate 200 ng/mL Xpcirwmflcpce53 ng/mL Axzybu108 ng/mL Methadone 300 ng/mL Amphetamine/ 1000 ng/mL Methamphetamine Oxycodone 300 ng/mL This assay provides an unconfirmed qualitative test result for the clinical management of patients in emergency situations. Chain of custody not maintained. Some ihpo-jdf-fksxujp medications, as well as adulterants, may cause inaccurate results. Clinical correlation should be applied. A more comprehensive drug screen or confirmation of a detected drug may be performed upon request. Performing Organization Address City/State/Zipcode Phone Number [facility] [address] [place] [address] [facility] * Transthoracic 2D echo w/ doppler (cw/pw/color) (11/20/2018 2:13 PM CDT) Ejection Fraction [facility] Specimen Narrative Performed At Transthoracic Echocardiography Report (TTE) [facility] Demographics [facility] Patient Name Junior SAMUELS of Study 11/20/2018 SAMANTHA [id number] GenderMale Visit Number [id number] RaceUnknown [id number] Number [id number] Number Date of Birth1970 Referring Physician Ayala Teague MD Age48 year(s) 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 Clinical History HGB 13.8 HCT 41.4 % COPD HTN DM TOBACCO ABUSE CAD SYNCOPE PTSD Height: 72 inches Weight: 131.09 kg (289 lbs) BSA: 2.49 m^2 BMI: 39.2 kg/m^2 HR: 54 bpm BP: 124/80 mmHg Summary 1. All of the LV segments contract normally Estimated LVEF by qualitative assessment is normal (>60%) . 2. Normal diastolic function. LA size is normal (16-34 ml/m2) 3. Unable to estimate peak systolic PA pressure Previous Study In comparison with the prior exam on 12-25-16 there are no significant changes. Signature Findings Technical Quality: Technically adequate exam. Left Ventricle The left ventricle is chamber size (by PSLAX dimension) is normal (male - LVIDd 4.2-5.8cm) . Mild concentric LV hypertrophy. All of the LV segments contract normally . Global LV systolic function normal . Estimated LVEF by qualitative assessment is normal (>60%) . Normal diastolic function. Normal (cardiac index 2-3 L/min/m2) cardiac output state at rest is noted. Left AtriumLA size is normal (16-34 ml/m2) . Right VentricleThe right ventricular chamber size and systolic function are within normal limits. Right Atrium RA cavity size is normal . Aortic Valve Normal AoV structure and function. Mitral Valve Normal MV structure. Trace mitral regurgitation. Tricuspid ValveUnable to estimate peak systolic PA pressure; inadequate TR velocity signal. Pulmonic Valve PV is not well visualized; function appears normal by Doppler visualized. AortaAortic root size (SInus of Valsalva diameter) is normal . Proximal ascending aorta size is normal . PericardiumA trivial pericardial effusion is present . An echo lucent space is noted consistent with prominent pericardial fat pad. IVC/SVC/PA/PV/PleuralThe right upper pulmonary vein (RUPV) is normal . The estimated RA pressure by IVC dynamics 5-10mmHg . Chambers/Structures Left Atrium LA Volume: 63.04 ml LA Area: 18.79 cm^2 LA Vol. Index: 25 ml/m^2 Left Ventricle LVIDd: 5.65 cm LV Septum Diastolic: 1.24 cm LV PW Diastolic: 1.23 cm LVEDV Peña's:94.13 mlLV Length: 9 cm LVESV Peña's:29.75 ml LVEF Peña's: 68.4 %LVEDVI: 38 ml/m^2 LVESVI: 12 ml/m^2 LVOT Diameter: 2.42 cm Right Ventricle TAPSE: 1.69 cm Aorta Ao Root S of [place].: 3.43 cmAscending Aorta: 3.17 cm Doppler/Quantitative Measurements Mitral Valve MV Peak E-Wave: 0.72 m/sMV Peak A-Wave: 0.57 m/s E/A Ratio: 1.26 Peak Gradient: 2.07 mmHg Deceleration Time: 207.3 msec MV Maciel. Peak: Tissue Doppler E' Lateral Velocity: 0.1 m/sE/E': 7.34 Aortic Valve Peak Velocity: 1.14 m/sMean Velocity: 0.71 m/s Peak Gradient: 5.19 mmHg Mean Gradient: 2.48 mmHg AV Area (continuity): 4.82 cm^2 AV VTI: 21.12 cm AV DVI: 1.05 LVOT Peak Velocity: 1.03 m/s Peak Gradient: 4.25 mmHg Mean Velocity: 0.69 m/s Mean Gradient: 2.2 mmHg LVOT Diameter: 2.42 cmLVOT VTI: 22.15 cm LVOT Area: 4.6 cm^2 LVOT SV:101.83 ml LVOT CO: 5.5 l/minLVOT CI: 2.21 l/min/m^2 Procedure Note Interface, External Ris In - 11/20/2018 3:36 PM CDT Transthoracic Echocardiography Report (TTE) Demographics Patient Name DAVID SAMUELS Date of Study 11/20/2018 SAMANTHA Gender Male Visit Number [id number] Race Unknown Room Number 1450 Number Date of 1970 Referring Physician Ayala Teague MD Age 48 year(s) 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 Clinical History HGB 13.8 HCT 41.4 % COPD HTN DM TOBACCO ABUSE CAD SYNCOPE PTSD Height: 72 inches Weight: 131.09 kg (289 lbs) BSA: 2.49 m^2 BMI: 39.2 kg/m^2 HR: 54 bpm BP: 124/80 mmHg Summary 1. All of the LV segments contract normally Estimated LVEF by qualitative assessment is normal (>60%) . 2. Normal diastolic function. LA size is normal (16-34 ml/m2) 3. Unable to estimate peak systolic PA pressure Previous Study In comparison with the prior exam on 12-25-16 there are no significant changes. Signature Findings Technical Quality: Technically adequate exam. Left Ventricle The left ventricle is chamber size (by PSLAX dimension) is normal (male - LVIDd 4.2-5.8cm) . Mild concentric LV hypertrophy. All of the LV segments contract normally . Global LV systolic function normal . Estimated LVEF by qualitative assessment is normal (>60%) . Normal diastolic function. Normal (cardiac index 2-3 L/min/m2) cardiac output state at rest is noted. Left Atrium LA size is normal (16-34 ml/m2) . Right Ventricle The right ventricular chamber size and systolic function are within normal limits. Right Atrium RA cavity size is normal . Aortic Valve Normal AoV structure and function. Mitral Valve Normal MV structure. Trace mitral regurgitation. Tricuspid Valve Unable to estimate peak systolic PA pressure; inadequate TR velocity signal. Pulmonic Valve PV is not well visualized; function appears normal by Doppler visualized. Aorta Aortic root size (SInus of Valsalva diameter) is normal . Proximal ascending aorta size is normal . Pericardium A trivial pericardial effusion is present . An echo lucent space is noted consistent with prominent pericardial fat pad. IVC/SVC/PA/PV/Pleural The right upper pulmonary vein (RUPV) is normal . The estimated RA pressure by IVC dynamics 5-10mmHg . Chambers/Structures Left Atrium LA Volume: 63.04 ml LA Area: 18.79 cm^2 LA Vol. Index: 25 ml/m^2 Left Ventricle LVIDd: 5.65 cm LV Septum Diastolic: 1.24 cm LV PW Diastolic: 1.23 cm LVEDV Peña's:94.13 ml LV Length: 9 cm LVESV Peña's:29.75 ml LVEF Peña's: 68.4 % LVEDVI: 38 ml/m^2 LVESVI: 12 ml/m^2 LVOT Diameter: 2.42 cm Right Ventricle TAPSE: 1.69 cm Aorta Ao Root S of [place].: 3.43 cm Ascending Aorta: 3.17 cm Doppler/Quantitative Measurements Mitral Valve MV Peak E-Wave: 0.72 m/s MV Peak A-Wave: 0.57 m/s E/A Ratio: 1.26 Peak Gradient: 2.07 mmHg Deceleration Time: 207.3 msec MV Maciel. Peak: Tissue Doppler E' Lateral Velocity: 0.1 m/s E/E': 7.34 Aortic Valve Peak Velocity: 1.14 m/s Mean Velocity: 0.71 m/s Peak Gradient: 5.19 mmHg Mean Gradient: 2.48 mmHg AV Area (continuity): 4.82 cm^2 AV VTI: 21.12 cm AV DVI: 1.05 LVOT Peak Velocity: 1.03 m/s Peak Gradient: 4.25 mmHg Mean Velocity: 0.69 m/s Mean Gradient: 2.2 mmHg LVOT Diameter: 2.42 cm LVOT VTI: 22.15 cm LVOT Area: 4.6 cm^2 LVOT SV:101.83 ml LVOT CO: 5.5 l/min LVOT CI: 2.21 l/min/m^2 Performing Organization Address City/State/Zipcode Phone Number [facility] * Troponin I (11/20/2018 12:04 PM CDT) Only the most recent of 10 results within the time period is included. Troponin I <0.01 0.00 - 0.03 ng/mL [facility] Specimen Blood Narrative Performed At Troponin I (TnI) levels must be interpreted in the context of the presenting [facility] symptoms and the clinical findings. Elevated TnI levels indicate myocardial [facility] damage, but are not specific for ischemic heart disease. Elevated TnI levels are seen in patients with other cardiac conditions (including myocarditis and congestive heart failure), and slight TnI elevations occur in patients with other conditions, including sepsis, renal failure, acidosis, acute neurological disease, and persistent tachyarrhythmia. Performing Organization Address City/State/Zipcode Phone Number [facility] [address] [place] [address] [facility] * ECG 12 lead (11/20/2018 5:54 AM CDT) Only the most recent of 6 results within the time period is included. Specimen Narrative Performed At Ventricular Rate 53 BPM GE MUSE Atrial Rate 53 BPM P-R Interval 206 ms QRS Duration 102 ms Q-T Interval 446 ms QTC Calculation(Bazett) 418 ms P [place] 26 degrees R [place] 90 degrees T [place] 51 degrees Sinus bradycardia Nonspecific T wave abnormality Abnormal ECG When compared with ECG of 06-JUN-2018 18:44, Vent. rate has decreased BY44 BPM Criteria for Inferior infarct are no longer Present Nonspecific T wave abnormality, worse in Anterior leads Confirmed by MD Christy Roberto ([id number]) on 11/20/2018 4:23:20 PM Procedure Note Interface, External Ris In - 11/20/2018 4:23 PM CDT Ventricular Rate 53 BPM Atrial Rate 53 BPM P-R Interval 206 ms QRS Duration 102 ms Q-T Interval 446 ms QTC Calculation(Bazett) 418 ms P [place] 26 degrees R [place] 90 degrees T [place] 51 degrees Sinus bradycardia Nonspecific T wave abnormality Abnormal ECG When compared with ECG of 06-JUN-2018 18:44, Vent. rate has decreased BY 44 BPM Criteria for Inferior infarct are no longer Present Nonspecific T wave abnormality, worse in Anterior leads Confirmed by MD Christy Roberto ([id number]) on 11/20/2018 4:23:20 PM Performing Organization Address City/State/Zipcode Phone Number [facility] * Hemoglobin A1c (11/20/2018 4:07 AM CDT) Only the most recent of 2 results within the time period is included. Hemoglobin A1C 7.7 (H) 4.3 - 6.1 % [facility] Specimen Blood Performing Organization Address [facility] Phone Number [address] [address] [facility] * Lipid panel (11/20/2018 4:07 AM CDT) Only the most recent of 3 results within the time period is included. Triglycerides 110 mg/dL [facility] Cholesterol 162 mg/dL [facility] HDL 42 mg/dL [facility] LDL Calculated 98 mg/dL [facility] Specimen Blood Narrative Performed At Triglyceride Reference Range: [facility] Low Risk <150 [facility] [id number] High Risk 200-499 Very High Risk>=500 Cholesterol Reference Range: Low Risk <200 [id number] High Risk>240 HDL Cholesterol Reference Range: Low Risk >=60 High Risk <40 LDL Cholesterol Reference Range: Optimal<100 Near [id number] Ahkg103-563 Very High >=190 Performing Organization Address City/[facility] Phone Number [facility] [address] [place] [address] [facility] * Comprehensive metabolic panel (11/20/2018 4:07 AM CDT) Only the most recent of 2 results within the time period is included. Protein, Total 6.3 6.0 - 8.3 gm/dL [facility] Albumin 3.8 3.5 - 5.0 g/dL [facility] Alkaline Phosphatase 60 40 - 150 U/L [facility] Total Bilirubin 0.3 0.2 - 1.2 mg/dL [facility] Sodium 136 136 - 145 meq/L [facility] Potassium 4.0 3.5 - 5.1 meq/L [facility] Chloride 107 98 - 107 meq/L [facility] CO2 23 22 - 29 meq/L [facility] BUN 18 7 - 21 mg/dL [facility] Creatinine 1.17 0.57 - 1.25 mg/dL [facility] Glucose 131 (H) 70 - 105 mg/dL [facility] Calcium 9.2 8.4 - 10.2 mg/dL [facility] AST 23 5 - 34 U/L [facility] ALT 31 6 - 55 U/L [facility] EGFR 67Comment: ESTIMATED GFR IS mL/min/1.73 sq m [facility] NOT ACCURATE CREATININE [facility] CLEARANCE IN PREDICTING GLOMERULAR FILTRATION RATE. ESTIMATED GFR IS NOT APPLICABLE FOR DIALYSIS PATIENTS. Specimen Blood Performing Organization Address City/State/Zipcode Phone Number [facility] [address] [place] [address] [facility] * CBC with platelet count + automated diff (11/20/2018 1:46 AM CDT) Only the most recent of 8 results within the time period is included. WBC 7.7 3.5 - 10.5 K/L [facility] RBC 4.64 4.63 - 6.08 M/L [facility] Hemoglobin 13.8 13.7 - 17.5 GM/DL [facility] Hematocrit 41.4 40.1 - 51.0 % [facility] MCV 89.2 79.0 - 92.2 fL [facility] MCH 29.7 25.7 - 32.2 pg [facility] MCHC 33.3 32.3 - 36.5 GM/DL [facility] RDW 14.6 (H) 11.6 - 14.4 % [facility] Platelets 190 150 - 450 K/CU MM [facility] MPV 8.4 (L) 9.4 - 12.4 fL [facility] nRBC 0 0 - 0 /100 WBC [facility] % Neutros 66 % [facility] % Lymphs 26 % [facility] % Monos 6 % [facility] % Eos 1 % [facility] % Baso 0 % [facility] # Neutros 5.07 1.78 - 5.38 K/L [facility] # Lymphs 2.00 1.32 - 3.57 K/L [facility] # Monos 0.49 0.30 - 0.82 K/L [facility] # Eos 0.04 0.04 - 0.54 K/L [facility] # Baso 0.03 0.01 - 0.08 K/L [facility] Immature 0 0 - 1 % [facility] Granulocytes-[facility] Specimen Blood Performing Organization Address City/[facility]/[place] [address] [phone] [place] [address] * Magnesium (11/20/2018 1:46 AM CDT) Only the most recent of 5 results within the time period is included. Magnesium 2.2 1.6 - 2.6 mg/dL [facility] Specimen Blood Performing Organization Address City/[facility]/Zipcode Phone Number [address] [address] [facility] * Basic Metabolic Panel (11/20/2018 1:46 AM CDT) Only the most recent of 9 results within the time period is included. Sodium 135 (L) 136 - 145 meq/L [facility] Potassium 3.9 3.5 - 5.1 meq/L [facility] Chloride 106 98 - 107 meq/L [facility] CO2 21 (L) 22 - 29 meq/L [facility] BUN 19 7 - 21 mg/dL [facility] Creatinine 1.20 0.57 - 1.25 mg/dL [facility] Glucose 126 (H) 70 - 105 mg/dL [facility] Calcium 9.1 8.4 - 10.2 mg/dL [facility] EGFR 65Comment: ESTIMATED GFR IS mL/min/1.73 sq m [facility] NOT ACCURATE CREATININE [facility] CLEARANCE IN PREDICTING GLOMERULAR FILTRATION RATE. ESTIMATED GFR IS NOT APPLICABLE FOR DIALYSIS PATIENTS. Specimen Blood Performing Organization Address City/State/Zipcode Phone Number [facility] [address] [place] [address] [facility] * XR knee complete 4 views left (11/20/2018 1:22 AM CDT) Specimen Narrative Performed At FINAL REPORT [facility] CLINICAL HISTORY: Pain 4 views of the left knee are submitted without comparison. There is no acute fracture or malalignment. No destructive bony lesion, significant degenerative change or radiopaque foreign body is present. The surrounding soft tissues are normal. IMPRESSION: No acute abnormality. Signed: Christian Anderson MD Report Verified Date/Time:11/20/2018 01:52:22 Reading Location: [address] Reading Room Procedure Note Interface, External Ris In - 11/20/2018 1:54 AM CDT FINAL REPORT CLINICAL HISTORY: Pain 4 views of the left knee are submitted without comparison. There is no acute fracture or malalignment. No destructive bony lesion, significant degenerative change or radiopaque foreign body is present. The surrounding soft tissues are normal. IMPRESSION: No acute abnormality. Signed: Christian Anderson MD Report Verified Date/Time: 11/20/2018 01:52:22 Reading Location: [address] Reading Room Performing Organization Address [facility] Phone Number [facility] * XR chest 1 view portable / bedside (11/20/2018 1:21 AM CDT) Only the most recent of 2 results within the time period is included. Specimen Narrative Performed At FINAL REPORT [facility] History: Shortness of breath. Comparison: 05/07/2018 Findings: A single view of the chest is submitted. The cardiomediastinal contours are unremarkable. There is no focal consolidation, pneumothorax, large pleural effusion or evidence of overt pulmonary edema. There is no acute bony abnormality. Impression: No acute abnormality. Signed: Christian Anderson MD Report Verified Date/Time:11/20/2018 01:59:03 Reading Location: [address] Reading Room Procedure Note Interface, External Ris In - 11/20/2018 2:01 AM CDT FINAL REPORT History: Shortness of breath. Comparison: 05/07/2018 Findings: A single view of the chest is submitted. The cardiomediastinal contours are unremarkable. There is no focal consolidation, pneumothorax, large pleural effusion or evidence of overt pulmonary edema. There is no acute bony abnormality. Impression: No acute abnormality. Signed: Christian Anderson MD Report Verified Date/Time: 11/20/2018 01:59:03 Reading Location: [address] Reading Room Performing Organization Address [facility] Phone Number [facility] * ECG/EKG Interpretation (11/20/2018 1:17 AM CDT) Only the most recent of 2 results within the time period is included. Narrative Performed At Jean Carlos Jones MD 11/20/20183:22 AM ECG/EKG Interpretation Date/Time: 11/20/2018 11:50 PM Performed by: Jean Carlos Jones MD Authorized by: Jean Carlos Jones MD The ECG was interpreted by ED physician. This ECG was not compared with previous ECG(s).The ECG is interpreted as sinus bradycardia. Rate is bradycardic. Heart rate is 58 BPM. Conduction: conduction normal. ST segments normal. T waves abnormal. T-wave inversion in lead(s) V3 and V4. T-wave flattening in lead(s) V5, V6 and aVL. Clinical Impression: abnormal ECGECG reviewed and does not meet STEMI criteria. Patient tolerance: Patient tolerated the procedure well with no immediate complications * Ketones, blood (06/06/2018 4:36 PM CDT) Ketones, Blood 0.1 <0.4 mmol/L [facility] Specimen Blood Performing Organization Address [facility] Phone Number [facility] [address] [place] [address] [facility] * PT/aPTT (06/04/2018 9:11 PM CDT) Only the most recent of 3 results within the time period is included. Protime 12.5 11.7 - 14.7 seconds [facility] INR 0.9 <=5.9 [facility] PTT 23.9 22.5 - 36.0 seconds [facility] Specimen Blood Narrative Performed At RECOMMENDED COUMADIN/WARFARIN INR THERAPY RANGES [facility] STANDARD DOSE: 2.0 - 3.0 Includes: PROPHYLAXIS for venous thrombosis, [facility] systemic embolization; TREATMENT for venous thrombosis and/or pulmonary embolus. HIGH RISK: Target INR is 2.5-3.5 for patients with mechanical heart valves. Performing Organization Address [facility] Phone Number [facility] [address] [place] [address] [facility] * CT brain without IV contrast (06/04/2018 7:23 PM CDT) Only the most recent of 2 results within the time period is included. Specimen Narrative Performed At FINAL REPORT [facility] head without contrast INDICATION: Ataxia, head [...] MD Report Verified Date/Time:06/04/2018 19:34:16 Reading Location: [facility] Radiology Reading Room Procedure Note Interface, [...] Report Verified Date/Time: 06/04/2018 19:34:16 Reading Location: [facility] Radiology Reading Room Performing Organization Address City/State/Zipcode Phone Number [facility] * Urinalysis w/Microscopic (05/30/2018 8:31 PM CDT) Color, UA Light Yellow [facility] Clarity, UA Clear [facility] Specific [place], UA 1.013 1.001 - 1.035 [facility] pH, UA 6.0 5.0 - 8.0 [facility] Protein, UA Negative Negative [facility] Glucose, UA >1000 mg/dL (A) Negative [facility] Ketones, UA Negative Negative [facility] Bilirubin, UA Negative Negative [facility] Blood, UA Negative Negative [facility] Nitrite, UA Negative Negative [facility] Leukocytes, UA Negative Negative [facility] Urobilinogen, UA 0.2 0.2 - 1.0 mg/dL [facility] RBC, UA <1 /HPF [facility] WBC, UA 0 /HPF [facility] Specimen Source Urine, Clean Catch [facility] Specimen Urine Performing Organization Address City/State/Zipcode Phone Number [facility] [address] [phone] [facility] * XR spine lumbar complete 4 views min (05/29/2018 6:38 PM CDT) Specimen Narrative Performed At FINAL REPORT [facility] RAD, SPINE, LUMBAR, COMPLETE (MIN 4 VIEWS) [...] MD Report Verified Date/Time:05/29/2018 19:24:24 Reading Location: [facility] C013Y CT Body Reading Room Procedure [...] Report Verified Date/Time: 05/29/2018 19:24:24 Reading Location: [facility] C013Y CT Body Reading Room Performing Organization Address [facility] Phone Number [facility] * XR pelvis 1 or 2 views (05/29/2018 6:37 PM CDT) Specimen Narrative Performed At FINAL REPORT [facility] CLINICAL HISTORY: Trauma and pain. A single view of the pelvis is submitted without comparison. There is no acute fracture or malalignment. No destructive bony lesion, significant degenerative change or radiopaque foreign body is present. The surrounding soft tissues are normal. IMPRESSION: No acute abnormality. Signed: Christian Anderson MD Report Verified Date/Time:05/29/2018 19:16:28 Reading Location: [address] Reading Room Procedure Note Interface, External [...] Report Verified Date/Time: 05/29/2018 19:16:28 Reading Location: [address] Reading Room Performing Organization Address [facility] Phone Number [facility] * XR ribs with pa chest 3 views min left (05/29/2018 6:33 PM CDT) Specimen Narrative Performed At FINAL REPORT [facility] RAD, RIBS, LEFT \T\ PA CHEST, MIN [...] MD Report Verified Date/Time:05/29/2018 19:12:04 Reading Location: [facility] C0[facility] CT Body Reading Room Procedure Note Interface, [...] Report Verified Date/Time: 05/29/2018 19:12:04 Reading Location: [facility] C013Y CT Body Reading Room Performing Organization Address [facility] Phone Number [facility] * CT spine cervical without IV contrast (05/29/2018 5:34 PM CDT) Specimen Narrative Performed At FINAL REPORT [facility] cervical spine without contrast INDICATION: DIZZINESS [...] MD Report Verified Date/Time:05/29/2018 17:30:29 Reading Location: [address] Neuro Reading Room Procedure Note Interface, [...] Report Verified Date/Time: 05/29/2018 17:30:29 Reading Location: [facility] C0[facility] Neuro Reading Room Performing Organization Address City/[facility] Phone Number [facility] * Phosphorus (05/29/2018 4:46 PM CDT) Phosphorus 3.4Comment: Specimen markedly 2.3 - 4.7 mg/dL [facility] hemolyzed [facility] Specimen Blood Performing Organization Address [facility] Phone Number [address] [address] [phone] [place] [address] * Creatine Kinase (CK), Total and MB (05/29/2018 4:46 PM CDT) Only the most recent of 2 results within the time period is included. Total CK 199 29 - 200 U/L [facility] CK-MB 4.8 0.0 - 6.6 ng/mL [facility] MB Relative Index 2.4 % [facility] Specimen Blood Narrative Performed At CK-MB Reference Range: [facility] <6.7Normal [facility] 6.7-10.0Borderline >10.0 Abnormal Performing Organization Address [facility] Phone Number [facility] [address] [place] [address] [facility] * MR brain without IV contrast (05/09/2018 12:49 PM CDT) Specimen Narrative Performed At FINAL REPORT [facility] MRI brain without contrast INDICATION: Headache, dizziness. [...] MD Report Verified Date/Time:05/09/2018 11:23:03 Reading Location: [address] Neuro Reading Room Procedure Note Interface, [...] Report Verified Date/Time: 05/09/2018 11:23:03 Reading Location: [address] Neuro Reading Room Performing Organization Address City/State/Zipcode Phone Number [facility] * EEG AWAKE AND DROWSY (05/08/2018 2:27 PM CDT) Specimen Narrative Performed At Neurophysiology Electroencephalogram Report [facility] DATE OF REPORT: 05/08/18 Date(s) of Study: 05/08/2018 ACC: [id number] EE Start time: 05/08/2018 at 13:55 Stop time: 05/08/2018 at 14:16 ICD-10: R56.9 CPT Code: 28145 HISTORY: 47 y old male with h/o [...] REPORT: 05/08/18 Date(s) of Study: 05/08/2018 ACC: [id number] EE Start time: 05/08/2018 at 13:55 Stop time: 05/08/2018 at 14:16 ICD-10: R56.9 CPT Code: 68504 HISTORY: 47 y old male with h/o [...] MS Clinical Neurophysiology/Epilepsy Attending Performing Organization Address City/[facility]/Zipcode Phone Number [facility] * B-type Natriuretic Factor (BNP) (05/07/2018 2:01 PM CDT) BNP 20 0 - 100 pg/mL [facility] Specimen Blood Performing Organization Address [facility]/Zipcode Phone Number [phone] [place] [address] [facility] after 02/17/2018 Insurance Payer Benefit Subscriber ID Type Phone Address Plan / Group [employer]UE [employer] BCBS ADV xxxxxxxxxxxx [phone] [address] [place] [address] EXCHANGE Advance Directives For more information, please contact: [address] [address] Date Inactivated Comments Code Status Date Activated 05/31/2018 2:13 PM Full Code 05/29/2018 8:14 PM This code status was determined by: Patient 05/11/2018 6:00 PM Full Code 05/07/2018 4:35 PM This code status was determined by: Patient 12/27/2016 2:48 PM Full Code 12/25/2016 6:06 AM This code status was determined by: Patient
--- OUTSIDE RECORDS SUMMARY | 2019-02-18 01:29 | XMS REPORT ---
Author Author [facility] Address Unknown Phone Unavailable Care Team Providers Care Refractory Specialist Name Role Phone UNKNOWN, REFFERING PP Unavailable ANGELA PADRON Unavailable Unavailable Rosendo, Poyani Unavailable Unavailable PETER CLARK Unavailable Unavailable Patrick DELONG Unavailable Unavailable Michael Burk Unavailable Unavailable Sorin Pool [...] Onset Date Inactive Date Treating Clinician Comments tramadol DA Active MO 2019-02-12 00:00:00 ciprofloxacin DA Active 2018-09-07 00:00:00 ketorolac tromethamine DA Active DE 2018-09-06 00:00:00 Penicillins DA Active U 2018-09-06 00:00:00 codeine DA Active MO 2018-09-06 00:00:00 hydrocodone DA Active MO 2018-09-06 00:00:00 methylprednisolone DA Active 2018-09-06 00:00:00 ketorolac DA Active 2018-09-06 00:00:00 ketorolac tromethamine DA Active DE 2018-08-19 00:00:00 Penicillins DA Active U 2018-08-19 00:00:00 codeine DA Active AR 2018-08-19 00:00:00 hydrocodone DA Active AR 2018-08-19 00:00:00 methylprednisolone DA Active 2018-08-19 00:00:00 ketorolac DA Active 2018-08-19 00:00:00 ketorolac tromethamine DA Active DE 2018-08-17 00:00:00 Penicillins DA Active U 2018-08-17 00:00:00 codeine DA Active AR 2018-08-17 00:00:00 hydrocodone DA Active AR 2018-08-17 00:00:00 methylprednisolone DA Active 2018-08-17 00:00:00 ketorolac DA Active 2018-08-17 00:00:00 ketorolac tromethamine DA Active DE 2018-08-02 00:00:00 Penicillins DA Active U 2018-08-02 00:00:00 codeine DA Active AR 2018-08-02 00:00:00 hydrocodone DA Active AR 2018-08-02 00:00:00 methylprednisolone DA Active 2018-08-02 00:00:00 ketorolac DA Active 2018-08-02 00:00:00 ketorolac tromethamine DA Active DE 2018-07-29 00:00:00 Penicillins DA Active U 2018-07-29 00:00:00 codeine DA Active AR 2018-07-29 00:00:00 hydrocodone DA Active AR 2018-07-29 00:00:00 methylprednisolone DA Active SV 2018-07-29 00:00:00 ketorolac DA Active SV 2018-07-29 00:00:00 ketorolac tromethamine DA Active DE 2018-07-27 00:00:00 Penicillins DA Active U 2018-07-27 00:00:00 codeine DA Active MO 2018-07-27 00:00:00 hydrocodone DA Active MO 2018-07-27 00:00:00 methylprednisolone DA Active SV 2018-07-27 00:00:00 ketorolac DA Active SV 2018-07-27 00:00:00 hydrocodone DA Active U 2018-07-20 00:00:00 ketorolac DA Active SV 2018-07-19 00:00:00 Penicillins DA Active SV 2018-07-19 00:00:00 codeine DA Active SV 2018-07-19 00:00:00 methylprednisolone DA Active SV 2018-07-19 00:00:00 ketorolac tromethamine DA Active DE 2018-07-17 00:00:00 Penicillins DA Active U 2018-07-17 00:00:00 morphine DA Active U 2018-07-17 00:00:00 codeine DA Active MO 2018-07-17 00:00:00 hydrocodone DA Active MO 2018-07-17 00:00:00 methylprednisolone DA Active SV 2018-07-17 00:00:00 ketorolac tromethamine DA Active DE 2018-07-11 00:00:00 Penicillins DA Active U 2018-07-11 00:00:00 morphine DA Active U 2018-07-11 00:00:00 codeine DA Active MO 2018-07-11 00:00:00 hydrocodone DA Active MO 2018-07-11 00:00:00 methylprednisolone DA Active SV 2018-07-11 00:00:00 morphine DA Active U 2018-07-09 00:00:00 ketorolac tromethamine DA Active DE 2018-06-29 00:00:00 Penicillins DA Active U 2018-06-29 00:00:00 codeine DA Active MO 2018-06-29 00:00:00 hydrocodone DA Active MO 2018-06-29 00:00:00 methylprednisolone DA Active SV 2018-06-29 00:00:00 acetaminophen DA Active MO 2018-06-29 00:00:00 ketorolac tromethamine DA Active DE 2018-06-13 00:00:00 Penicillins DA Active U 2018-06-13 00:00:00 codeine DA Active MO 2018-06-13 00:00:00 hydrocodone DA Active MO 2018-06-13 00:00:00 acetaminophen DA Active MO 2018-06-13 00:00:00 methylprednisolone DA Active SV 2018-06-13 00:00:00 Penicillins DA Active SV 2018-06-10 00:00:00 codeine DA Active SV 2018-06-10 00:00:00 methylprednisolone DA Active SV 2018-06-10 00:00:00 ketorolac DA Active SV 2018-06-10 00:00:00 ketorolac tromethamine DA Active DE 2018-05-13 00:00:00 Penicillins DA Active U 2018-05-13 00:00:00 codeine DA Active MO 2018-05-13 00:00:00 hydrocodone DA Active MO 2018-05-13 00:00:00 acetaminophen DA Active MO 2018-05-13 00:00:00 methylprednisolone DA Active SV 2018-05-13 00:00:00 ketorolac tromethamine DA Active DE 2018-05-05 00:00:00 Penicillins DA Active U 2018-05-05 00:00:00 codeine DA Active MO 2018-05-05 00:00:00 methylprednisolone DA Active SV 2018-05-05 00:00:00 ketorolac tromethamine DA Active DE 2018-05-04 00:00:00 Penicillins DA Active U 2018-05-04 00:00:00 codeine DA Active MO 2018-05-04 00:00:00 methylprednisolone DA Active SV 2018-05-04 00:00:00 ketorolac tromethamine DA Active DE 2017-03-21 00:00:00 Penicillins DA Active U 2017-03-21 00:00:00 methylprednisolone DA Active SV 2017-03-21 00:00:00 Medications This patient has no known medications. Encounters Start Date/Time End Date/Time Encounter Type Admission Type Attending [facility] Care Department Encounter ID 2019-02-17 20:54:00 2019-02-17 20:54:00 [id number] 2019-01-18 22:46:00 2019-01-18 22:46:00 Emergency E [facility] 7528 2019-01-15 21:55:00 2019-01-15 21:55:00 Emergency E [facility] 7527 2017-04-12 23:48:00 2017-04-12 23:48:00 Emergency E [facility] [id number] Results Test Description Test Time Test Comments Text Results Atomic Results Result Comments B-TYPE NATRIURETIC PEPTIDE 2019-02-16 16:36:00 B-TYPE NATRIURETIC PEPTIDE (test code=BNP) 26.7 PG/ML 0-100 BASIC METABOLIC [id number] 16:24:00* Test Item Value Reference Range Comments SODIUM (test code=NA) 141 mEq/L 134-147 POTASSIUM (test code=K) 3.6 mEq/L 3.4-5.0 CHLORIDE (test code=CL) 111 mEq/L 100-108 CARBON DIOXIDE (test code=CO2) 23 mEq/L 21-33 ANION GAP (test code=GAP) 11 0-20 GLUCOSE (test code=GLU) 162 mg/dL 70-110 BLOOD UREA NITROGEN (test code=BUN) 21 mg/dL 7-18 GLOMERULAR FILTRATION RATE (test code=GFR) 59.2 95-105 Units of measure=ml/min/1.73 m2 CREATININE (test code=CREAT) 1.3 mg/dL 0.6-1.3 CALCIUM (test code=CA) 8.7 mg/dL 8.0-10.5 HEPATIC FUNCTION [id number] 16:24:00* Test Item Value Reference Range Comments TOTAL PROTEIN (test code=PROT) 6.6 g/dL 6.4-8.2 ALBUMIN (test code=ALB) 3.40 g/dL 3.4-5.0 BILIRUBIN TOTAL (test code=BILT) 0.50 mg/dL 0.0-1.0 BILIRUBIN DIRECT (test code=BILD) < 0.10 MG/DL 0.0-0.30 BILIRUBIN INDIRECT (test code=BILIND) 0.40 MG/DL SGOT/AST (test code=AST) 7 IUnit/L 15-37 SGPT/ALT (test code=ALT) 26 IUnit/L 15-65 ALKALINE PHOSPHATASE TOTAL (test code=ALKP) 58 IUnit/L 20-125 [id number] 16:24:00* Test Item Value Reference Range Comments TROPONIN-I (test code=TROPI) < 0.015 ng/mL 0.000-0.045 Negative: <=0.045 Positive: >=0.046 Correlation with serial results, other cardiac markers andclinical findings is necessary to determine the clinicalsignificance of this result. Results using different methodologies should not be comparedto one another as quantitative results may vary by method. CBC W/AUTO [id number] 16:05:00* Test Item Value Reference Range Comments WHITE BLOOD CELL (test code=WBC) 9.16 x10 3/uL 4.5-11.0 RED BLOOD CELL (test code=RBC) 4.03 x10 6/uL 4.00-5.60 HEMOGLOBIN (test code=HGB) 12.6 g/dL 12.5-16.9 HEMATOCRIT (test code=HCT) 37.5 % 37.5-50.7 MEAN CELL VOLUME (test code=MCV) 93.1 fL 81.0-99.0 MEAN CELL HGB (test code=MCH) 31.3 pg 27.0-33.0 MEAN CELL HGB CONCETRATION (test code=MCHC) 33.6 g/dL 33.0-37.0 RED CELL DISTRIBUTION WIDTH CV (test code=RDW) 14.6 % 11.5-14.5 RED CELL DISTRIBUTION WIDTH SD (test code=RDW-SD) 49.2 fL 37.0-54.0 PLATELET COUNT (test code=PLT) 147 x10 3/uL 150-400 MEAN PLATELET VOLUME (test code=MPV) 8.5 fL 7.0-9.0 NEUTROPHIL % (test code=NT%) 81.0 % 56.0-77.0 IMMATURE GRANULOCYTE % (test code=IG%) 0.5 % 0.0-2.0 LYMPHOCYTE % (test code=LY%) 12.8 % 14.0-32.0 MONOCYTE % (test code=MO%) 5.1 % 4.8-9.0 EOSINOPHIL % (test code=EO%) 0.4 % 0.3-3.7 BASOPHIL % (test code=BA%) 0.2 % 0.0-2.0 NUCLEATED RBC % (test code=NRBC%) 0.0 % 0-0 NEUTROPHIL # (test code=NT#) 7.41 x10 3/uL 2.0-7.6 IMMATURE GRANULOCYTE # (test code=IG#) 0.05 x10 3/uL 0.00-0.03 LYMPHOCYTE # (test code=LY#) 1.17 x10 3/uL 1.0-3.8 MONOCYTE # (test code=MO#) 0.47 x10 3/uL 0.1-0.8 EOSINOPHIL # (test code=EO#) 0.04 x10 3/uL 0.0-0.2 BASOPHIL # (test code=BA#) 0.02 x10 3/uL 0.0-0.2 NUCLEATED RBC # (test code=NRBC#) 0.00 x10 3/uL 0.0-0.1 MANUAL DIFF REQUIRED (test code=MDIFF) NO PROTHROMBIN [id number] 15:57:00* Test Item Value Reference Range Comments PROTHROMBIN TIME PATIENT (test code=PTP) 13.9 SECONDS 9.3-12.9 INTERNATIONAL NORMAL RATIO (test code=INR) [...] Acute Myocardial Infarction (to prevent recurrent infarct). - CT HEAD/BRAIN W/O [id number] 15:51:00 Name: GERMANDEONDAVID SAMANTHA [facility] : 1970 Age/S: 48 / M [address] [place] [address] Unit #: [id number] Loc: [place] [address] Phys: Neha Clements DO Acct: [id number] Dis Date: Status: REG ER PHONE #: [phone] Exam Date: 02/16/2019 1522 FAX #: [phone] Reason: Syncope EXAMS: CPT CODE: [id number] CT HEAD/BRAIN W/O CONT 63846 EXAM: CT CERVICAL SPINE WITHOUT CONTRAST DATE: 02/16/2019 2:33 PM : 1970; Age: 48 years y/o Male INDICATION: neck pain COMPARISON: February 12, 2019 TECHNIQUE: Volumetric CT of the cervical spine is acquired without contrast. Axial, coronal and sagittal images are provided. IV contrast: None. DLP: 345 mGy-cm CT imaging performed at this location utilizes radiation dose optimization techniques which include one or more of the following: -Automated exposure control -Adjustment of the mA and/or kV according to patient size -Use of iterative reconstruction technique FINDINGS: No acute fracture, traumatic malalignment or other acute bony abnormality is identified. No acute soft tissue abnormality is identified. IMPRESSION: No acute bony abnormality. Clinical Indication: Syncope, fall Comparison: CT brain February 12, 2019 TECHNIQUE: Multiple contiguous transaxial noncont rast CT images were obtained through the head. Coronal and sagittal refo rmatted images were prepared. DOSE: CT imaging perfor med at this location utilizes radiation dose optimization technique whic h includes one or more of the followin) Automated exposure control; 2) Adjustment of the mA and/or kV according to patient's size; 3) Use of iterative reconstruction techniques. DLP (mGy-cm): 832 P AGE 2 Signed Report (CONTINUED) Name : DAVID SAMUELS [facility] : 02/1971 Age/S: 48 / M [address] [place] [address] Unit #: [id number] Loc: [place] [address] Phys: Neha Clements DO Acct: [id number] Dis Date : Status: REG ER PHONE #: Exam Date: 02/16/2019 1522 FAX #: [phone] Reason: Syncope EXAMS: CPT CODE: [id number] CT HEAD/[place] [address] <Continued> FINDINGS: Study is limited due to artifact. Streak artifacts persist on repeat examination. Mild diffuse atrophy is present associated with minimal nonspecific periventricular low attenuation most consistent with old microangiopathic ischemic change. No gross evidence of acute intracranial hemorrhage, mass lesion, mass effect, midline shift, or extra-axial fluid collection. The lateral ventricles, third ventricle, fourth ventricle, and basilar cisterns are appropriate for degree of atrophy present. The visualized portions of the paranasal sinuses are clear. Mastoids are clear. IMPRESSION: No gross acute intracranial abnormality. Study is limited due to streak artifacts. SL: [id number] at 1551 Reported and signed by: Kris Pang D.O. CC: Neha Clements DO; Peter Clark MD Technologist:Iris Boyd, RT(R) CTDI: DLP: Trnscb Elmo e/Time: 02/16/2019 (7491) [email or web address] Orig Print D/T: S: (4952) PAGE 2 Signed Report - CT C-SPINE W/O [id number] 15:51:00 Name: DAVID SAMUELS [facility] : 1970 Age/S: 48 / M [address] [place] [address] Unit #: [id number] Loc: [place] [address] Phys: Neha Clements DO Acct: [id number] Dis Date: Status: REG ER PHONE #: [phone] Exam Date: 02/16/2019 1522 FAX #: [phone] Reason: neck pain EXAMS: CPT CODE: [id number] CT C-SPINE W/O CONT 00038 EXAM: CT CERVICAL SPINE WITHOUT CONTRAST DATE: 02/16/2019 2:33 PM : 1970; Age: 48 years y/o Male INDICATION: neck pain COMPARISON: February 12, 2019 TECHNIQUE: Volumetric CT of the cervical spine is acquired without contrast. Axial, coronal and sagittal images are provided. IV contrast: None. DLP: 345 mGy-cm CT imaging performed at this location utilizes radiation dose optimization techniques which include one or more of the following: -Automated exposure control -Adjustment of the mA and/or kV according to patient size -Use of iterative reconstruction technique FINDINGS: No acute fracture, traumatic malalignment or other acute bony abnormality is identified. No acute soft tissue abnormality is identified. IMPRESSION: No acute bony abnormality. Clinical Indication: Syncope, fall Comparison: CT brain February 12, 2019 TECHNIQUE: Multiple contiguous transaxial noncont rast CT images were obtained through the head. Coronal and sagittal refo rmatted images were prepared. DOSE: CT imaging perfor med at this location utilizes radiation dose optimization technique whic h includes one or more of the followin) Automated exposure control; 2) Adjustment of the mA and/or kV according to patient's size; 3) Use of iterative reconstruction techniques. DLP (mGy-cm): 832 P AGE 2 Signed Report (CONTINUED) Name : DAVID SAMUELS [facility] : 02/1971 Age/S: 48 / M [address] [place] [address] Unit #: [id number] Loc: [place] [address] Phys: Neha Clements DO Acct: [id number] Dis Date : Status: REG ER PHONE #: Exam Date: 02/16/2019 1522 FAX #: [phone] Reason: neck pain EXAMS: CPT CODE: [id number] CT C-SPINE W/O CONT 65091 <Continued> FINDINGS: Study is limited due to artifact. Streak artifacts persist on repeat examination. Mild diffuse atrophy is present associated with minimal nonspecific periventricular low attenuation most consistent with old microangiopathic ischemic change. No gross evidence of acute intracranial hemorrhage, mass lesion, mass effect, midline shift, or extra-axial fluid collection. The lateral ventricles, third ventricle, fourth ventricle, and basilar cisterns are appropriate for degree of atrophy present. The visualized portions of the paranasal sinuses are clear. Mastoids are clear. IMPRESSION: No gross acute intracranial abnormality. Study is limited due to streak artifacts. SL: [id number] at 1551 Reported and signed by: Kris Pang D.O. CC: Neha Clements DO; Peter Clark MD Technologist:Iris Boyd, RT(R) CTDI: DLP: Trnscb Elmo e/Time: 02/16/2019 (1551) [email or web address] Orig Print D/T: S: (1378) PAGE 2 Signed Report - XR CHEST 1 [id number] 15:37:00 FAX: Neha Ramírez DO [phone] [place]: St: REG FAX: Peter Schafer MD [phone] Name: DAVID SAMUELS [facility] : 1970 Age/S: 48/M [address] [place], [place] [address] Unit #: [id number] Loc: [place] [address] Phys: Neha Clements DO Acct: [id number] Dis Date: Status: REG ER PHONE #: [phone] Exam Date: 02/16/20191533 FAX #: [phone] Reason: Syncope EXAMS: CPT CODE: [id number] XR CHEST 1 V 17569 EXAM: XR CHEST 1 VIEW DATE: 02/16/2019 2:33 PM : 1970; Age: 48 years y/o Male INDICATION: Syncope COMPARISON: February 12, 2019 TECHNIQUE: AP chest. FIN DINGS/ IMPRESSION: Lines, tubes and hardware: None. Heart, mediastinum and lungs: The heart size is normal for tech nique. The mediastinal contours are normal. Pulmonary vascularity is nor mal. No consolidation. No pneumothorax. SL: [id number] at 1537 Reported and signed by: Kris Pang D.O. CC: Jennifer Clements DO; Peter Clark MD Technologist: Lucita Cordero(Lucita) Trnscrd Date/Time/By: 02/16/2019 (1539) : By: [email or web address] Orig Print D/T: S: 02/16/2019 (5743) PAGE 1 Signed Report [id number] 18:46:00* Test Item Value Reference Range Comments GLUBED (test code=GLUBED) 100 MG/DL 70-110 Performed by certified high speed printer operator at [facility] [id number] 12:04:00* Test Item Value Reference Range Comments GLUBED (test code=GLUBED) 114 MG/DL 70-110 Performed by certified high speed printer operator at [facility] BASIC METABOLIC [id number] 11:27:00* Test Item Value Reference Range Comments SODIUM (test code=NA) 137 mEq/L 134-147 POTASSIUM (test code=K) 4.9 mEq/L 3.4-5.0 CHLORIDE (test code=CL) 110 mEq/L 100-108 CARBON DIOXIDE (test code=CO2) 24 mEq/L 21-33 ANION GAP (test code=GAP) 8 0-20 GLUCOSE (test code=GLU) 116 mg/dL 70-110 BLOOD UREA NITROGEN (test code=BUN) 22 mg/dL 7-18 GLOMERULAR FILTRATION RATE (test code=GFR) 90.4 95-105 Units of measure=ml/min/1.73 m2 CREATININE (test code=CREAT) 0.9 mg/dL 0.6-1.3 CALCIUM (test code=CA) 8.8 mg/dL 8.0-10.5 [id number] 11:27:00* Test Item Value Reference Range Comments MAGNESIUM (test code=MAG) 2.10 mg/dL 1.8-2.4 CBC W/AUTO [id number] 11:12:00* Test Item Value Reference Range Comments WHITE BLOOD CELL (test code=WBC) 7.22 x10 3/uL 4.5-11.0 RED BLOOD CELL (test code=RBC) 4.33 x10 6/uL 4.00-5.60 HEMOGLOBIN (test code=HGB) 13.5 g/dL 12.5-16.9 HEMATOCRIT (test code=HCT) 41.2 % 37.5-50.7 MEAN CELL VOLUME (test code=MCV) 95.2 fL 81.0-99.0 MEAN CELL HGB (test code=MCH) 31.2 pg 27.0-33.0 MEAN CELL HGB CONCETRATION (test code=MCHC) 32.8 g/dL 33.0-37.0 RED CELL DISTRIBUTION WIDTH CV (test code=RDW) 14.6 % 11.5-14.5 RED CELL DISTRIBUTION WIDTH SD (test code=RDW-SD) 50.2 fL 37.0-54.0 PLATELET COUNT (test code=PLT) 141 x10 3/uL 150-400 MEAN PLATELET VOLUME (test code=MPV) 8.6 fL 7.0-9.0 NEUTROPHIL % (test code=NT%) 76.7 % 56.0-77.0 IMMATURE GRANULOCYTE % (test code=IG%) 1.1 % 0.0-2.0 LYMPHOCYTE % (test code=LY%) 16.2 % 14.0-32.0 MONOCYTE % (test code=MO%) 5.1 % 4.8-9.0 EOSINOPHIL % (test code=EO%) 0.6 % 0.3-3.7 BASOPHIL % (test code=BA%) 0.3 % 0.0-2.0 NUCLEATED RBC % (test code=NRBC%) 0.0 % 0-0 NEUTROPHIL # (test code=NT#) 5.54 x10 3/uL 2.0-7.6 IMMATURE GRANULOCYTE # (test code=IG#) 0.08 x10 3/uL 0.00-0.03 LYMPHOCYTE # (test code=LY#) 1.17 x10 3/uL 1.0-3.8 MONOCYTE # (test code=MO#) 0.37 x10 3/uL 0.1-0.8 EOSINOPHIL # (test code=EO#) 0.04 x10 3/uL 0.0-0.2 BASOPHIL # (test code=BA#) 0.02 x10 3/uL 0.0-0.2 NUCLEATED RBC # (test code=NRBC#) 0.00 x10 3/uL 0.0-0.1 MANUAL DIFF REQUIRED (test code=MDIFF) NO [id number] 07:42:00* Test Item Value Reference Range Comments GLUBED (test code=GLUBED) 125 MG/DL 70-110 Performed by certified high speed printer operator at [facility] [id number] 22:04:00* Test Item Value Reference Range Comments GLUBED (test code=GLUBED) 117 MG/DL 70-110 Performed by certified high speed printer operator at [facility] [id number] 18:30:00* Test Item Value Reference Range Comments GLUBED (test code=GLUBED) 142 MG/DL 70-110 Performed by certified high speed printer operator at [facility] [id number] 12:09:00* Test Item Value Reference Range Comments GLUBED (test code=GLUBED) 104 MG/DL 70-110 Performed by certified high speed printer operator at [facility] [id number] 08:26:00* Test Item Value Reference Range Comments GLUBED (test code=GLUBED) 106 MG/DL 70-110 Performed by certified high speed printer operator at [facility] [id number] 22:29:00* Test Item Value Reference Range Comments GLUBED (test code=GLUBED) 144 MG/DL 70-110 Performed by certified high speed printer operator at [facility] [id number] 16:28:00* Test Item Value Reference Range Comments GLUBED (test code=GLUBED) 87 MG/DL 70-110 Performed by certified high speed printer operator at [facility] [id number] 14:13:00* Test Item Value Reference Range Comments TROPONIN-I (test code=TROPI) < 0.015 ng/mL 0.000-0.045 Negative: <=0.045 Positive: >=0.046 Correlation with serial results, other cardiac markers andclinical findings is necessary to determine the clinicalsignificance of this result. Results using different methodologies should not be comparedto one another as quantitative results may vary by method. COMMENTS: 3 troponins total (including troponin done in ED)[id number] 10:40:00* Test Item Value Reference Range Comments TROPONIN-I (test code=TROPI) < 0.015 ng/mL 0.000-0.045 Negative: <=0.045 Positive: >=0.046 Correlation with serial results, other cardiac markers andclinical findings is necessary to determine the clinicalsignificance of this result. Results using different methodologies should not be comparedto one another as quantitative results may vary by method. COMMENTS: 3 troponins total (including troponin done in ED)DRUGS OF ABUSE SCREEN [id number] 06:48:00* Test Item Value Reference Range Comments URN [...] for non-medical purposes. DRUGS OF ABUSE SCREEN [id number] 06:35:00* Test Item Value Reference Range Comments URN [...] results shouldnot be used for non-medical purposes. LACTIC [id number] 06:21:00* Test Item Value Reference Range Comments LACTIC ACID (test code=LACT) 0.9 mmol/L 0.4-1.9 URINALYSIS [id number] 06:13:00* Test Item Value Reference Range Comments UA COLOR (test code=COLU) STRAW YEL/STRAW UA APPEARANCE (test code=APPU) CLEAR CLEAR UA GLUCOSE DIPSTICK (test code=DGLUU) 3+ NEGATIVE UA BILIRUBIN DIPSTICK (test code=BILU) NEGATIVE NEGATIVE UA KETONE DIPSTICK (test code=KETU) NEGATIVE NEGATIVE UA SPECIFIC GRAVITY (test code=SGU) 1.010 1.005-1.030 UA BLOOD DIPSTICK (test code=KARLOS) NEGATIVE NEGATIVE UA PH DIPSTICK (test code=DARRION) 7.0 5.0-7.0 UA PROTEIN DIPSTICK (test code=PROU) NEGATIVE [...] (test code=SQU) NONE SEEN /HPF NONE SEEN COMMENTS: Clean Catch- XR L-SPINE 2/3 [id number] 06:07:00 FAX: Peter Schafer MD [phone] [place]: St: REG FAX: Corona Garcia MD [phone] Name: DAVID SAMUELS [facility] : 1970 Age/S: 48/M [address] [place] [address] Unit #: [id number] Loc: [address] [place] [address] Phys: Corona Steiner MD Acct: [id number] Dis Date: Status: REG ER PHONE #: [phone] Exam Date: 02/12/2019 0532 FAX #: [phone] Reason: LOWER BACK PAIN EXAMS: CPT CODE: [id number] XR L-SPINE 2/3 VIEWS 99454 EXAM: CR, XR L-SPINE 2/3 VIEWS: 02/12/2019, 0527 hours History: Lower back pain. Fall. COMPARISON: CT scan dated 02/05. FINDINGS: Frontal and lateral radiograph of the lumbar spin e is submitted. 5 nonrib-bearing lumbar type vertebral humberto s are present with slight right scoliosis. There is mild exaggerated lumb ar lordosis, positional versus due to muscle spasm. There is normal align ment and height of the lumbar spine vertebral bodies. Intervertebral disc spaces are well-maintained. Mild degenerative changes of the poste rior elements. Sacroiliac joints are intact. No acute fractu re or dislocation of the lumbar spine seen. Mild degenerative changes of bilateral hip joints. IMPRESSION: 1. No acute fracture or dislocation of the lumbar spine seen SL:[id number]-Ophelia at 0607 Reported and signed by: Ruperto Sagastume M.D. CC: Peter Clark MD; Corona Steiner MD Technologist: Cara Pedersen age, RT(R) Trnscrd Date/Time/By: 02/12/2019 (606) : By: [email or web address] Orig Print D/T: S: 02/12/2019 (609) PAGE 1 Signed Report - CT C-SPINE W/O [id number] 06:02:00 Name: DAVID SAMUELS [facility] : 1970 Age/S: 48 / M [address] [place] [address] Unit #: [id number] Loc: [facility] [place] [address] Phys: Corona Steiner MD Acct: [id number] Dis Date: Status: REG ER PHONE #: [phone] Exam Date: 02/12/2019 05 FAX #: [phone] Reason: Neck Pain EXAMS: CPT CODE: [id number] CT C-SPINE W/O CONT 76617 EXAM: CT, CT HEAD/BRAIN W/O CONTRAST: 02/12/2019, 0536 hours Clinical Indication: Fall. Head pain. Neck pain. Seizure. Comparison: 01/02/2019. TECHNIQUE: CT images were obtained from the foramen magnum to the vertex without the use of intravenous contrast on a multidetector CT. CT imaging was performed with exposure control parameters to reduce radiation dose. Coronal and sagittal reconstructions were obtained. CT radiation dose DLP: 419.70 mGy-cm FINDINGS: Beam hardening and streaky artifact limits the optimal evaluation of base of brain and posterior fossa. BRAIN PARENCHYMA: The brain parenchyma is normal with normal santamaria and white interfaces. The periventricular white matter appears unremarkable. No focal mass lesions on this noncontrast head CT. No mass effect, midline shift or edema. There are no intra-axial or extra-axial fluid collections, intraventricular or intraparenchymal hemorrhage. No low attenuation demarcating areas on this non-contrast CT to suggest subacute stroke. VENTRICLES: The lateral ventricles, third and fourth ventricles appear unremarkable. The basilar cisterns are normal. ORBITS, MASTOIDS AND PARANASAL SINUSES: The visualized orbits are unremarkable. The visualized paranasal sinuses are unremarkable. The masto id air cells are clear. SKULL: There are no osseous abnor malities. If there is further concern for intracranial pathology o r acute stroke, MRI of the brain may be performed for complete assessment. IMPRESSION: 1. Limited due to artifact. 2. No acute intracranial abnormality. No noncontrast CT evidence of mass, hemorrhage or subacute stroke. PAGE 1 Signed Report (CONTINUED) Name: DAVID SAMUELS [facility] : 1970 Age/S: 48 / M [address] [place] [address] Unit #: [id number] Loc: [place] [address] Phys: Corona Steiner MD Acct: [id number] Dis Date: Status: REG ER PHONE #: [phone] Exam Date: 019 0533 FAX #: [phone] Reason: Neck Pain EXAMS: CPT CODE: [id number] CT C-SPINE W/O CONT 74629 <Continued> SL: JSYED-H EXAM: CT, CT C-SPINE W/O CONTRAST: 02/12/2019, 0538 hours Clinical Indication: Fall. Head pain. Neck pain. Seizure. Comparison: None Technique: Multi-detector CT imaging of the cervical spine is performed. Coronal and sagittal reconstructions were obtained. CT imaging was performed with exposure control parameters to reduce radiation dose. CT Radiation Dose DLP 347.01 mGy-cm FINDINGS: ALIGNMENT AND GENERAL ASSESSMENT: There is mild left scoliosis of the cervical spine, which may be positional or due to muscle spasm. There are no fractures or subluxations. The craniocervical junction is normal. The atlanto- dental alignment appears unremarkable. The facet joint, spinolaminar and spinous process alignment are normal. DISK SPACES AND SOFT TISSUES: The prevertebral soft tissues are normal. C2-C3 to C7-T1 disc space levels show no definite disc protrusions on CT. There is no central or foraminal stenosis. MRI is the gold standard to assess for disk disease. VISUALIZED LUNG APICES: Unremarkable. CT myelogram or MRI of the cervical spine may be performed, if there is further concern. IMPRESSION: 1. No fractures or subluxations of the cervical spine. PAGE 2 Signed Report (CONTINUED) Name: DAVID SAMUELS [facility] : 1970 Age/S: 48 / M [address] [place] [address] Unit #: [id number] Loc: [place] [address] Phys: Corona Steiner MD Acct: [id number] Dis Date: Status: REG ER PHONE #: [phone] Exam Date: 02/12/2019532 FAX #: [phone] Reason: Neck Pain EXAMS: CPT CODE: [id number] CT C-SPINE W/O CONT 17171 < Continued> SL: JOSE MANUEL at 0602 Reported and signed by: Ruperto Sagastume M.D. CC: Peter Clark MD; Corona Steiner MD Technologist:Jose Rojo RT(R)(CT) CTDI: DLP: Trnscb Date/Time: 02/12/2019 (601) [email or web address] Orig Print D/T: S: 02/12/2019 (604) PAGE 3 Signed Report - CT HEAD/BRAIN W/O CONT 2019-02-12 06:02:00 Name: DAVID SAMUELS [facility] : 1970 Age/S: 48 / M [address] [place] [address] Unit #: [id number] Loc: [place] [address] Phys: Corona Steiner MD Acct: [id number] Dis Date: Status: REG ER PHONE #: [phone] Exam Date: 02/12/2019532 FAX #: [phone] Reason: Seizure EXAMS: CPT CODE: [id number] CT HEAD/BRAIN W/O CONT 03512 EXAM: CT, CT HEAD/BRAIN W/O CONTRAST: 02/12/2019, 0536 hours Clinical Indication: Fall. Head pain. Neck pain. Seizure. Comparison: 01/02/2019. TECHNIQUE: CT images were obtained from the foramen magnum to the vertex without the use of intravenous contrast on a multidetector CT. CT imaging was performed with exposure control parameters to reduce radiation dose. Coronal and sagittal reconstructions were obtained. CT radiation dose DLP: 419.70 mGy-cm FINDINGS: Beam hardening and streaky artifact limits the optimal evaluation of base of brain and posterior fossa. BRAIN PARENCHYMA: The brain parenchyma is normal with normal santamaria and white interfaces. The periventricular white matter appears unremarkable. No focal mass lesions on this noncontrast head CT. No mass effect, midline shift or edema. There are no intra-axial or extra-axial fluid collections, intraventricular or intraparenchymal hemorrhage. No low attenuation demarcating areas on this non-contrast CT to suggest subacute stroke. VENTRICLES: The lateral ventricles, third and fourth ventricles appear unremarkable. The basilar cisterns are normal. ORBITS, MASTOIDS AND PARANASAL SINUSES: The visualized orbits are unremarkable. The visualized paranasal sinuses are unremarkable. The masto id air cells are clear. SKULL: There are no osseous abnor malities. If there is further concern for intracranial pathology o r acute stroke, MRI of the brain may be performed for complete assessment. IMPRESSION: 1. Limited due to artifact. 2. No acute intracranial abnormality. No noncontrast CT evidence of mass, hemorrhage or subacute stroke. PAGE 1 Signed Report (CONTINUED) Name: DAVID SAMUELS [facility] : 1970 Age/S: 48 / M [address] [place] [address] Unit #: [id number] Loc: [place] [address] Phys: Corona Steiner MD Acct: [id number] Dis Date: Status: REG ER PHONE #: [phone] Exam Date: 532 FAX #: [phone] Reason: Seizure EXAMS: CPT CODE: [id number] CT HEAD/BRAIN W/O CONT 17907 <Continued> SL: JSYED-H EXAM: CT, CT C-SPINE W/O CONTRAST: 02/12/2019, 0538 hours Clinical Indication: Fall. Head pain. Neck pain. Seizure. Comparison: None Technique: Multi-detector CT imaging of the cervical spine is performed. Coronal and sagittal reconstructions were obtained. CT imaging was performed with exposure control parameters to reduce radiation dose. CT Radiation Dose DLP 347.01 mGy-cm FINDINGS: ALIGNMENT AND GENERAL ASSESSMENT: There is mild left scoliosis of the cervical spine, which may be positional or due to muscle spasm. There are no fractures or subluxations. The craniocervical junction is normal. The atlanto- dental alignment appears unremarkable. The facet joint, spinolaminar and spinous process alignment are normal. DISK SPACES AND SOFT TISSUES: The prevertebral soft tissues are normal. C2-C3 to C7-T1 disc space levels show no definite disc protrusions on CT. There is no central or foraminal stenosis. MRI is the gold standard to assess for disk disease. VISUALIZED LUNG APICES: Unremarkable. CT myelogram or MRI of the cervical spine may be performed, if there is further concern. IMPRESSION: 1. No fractures or subluxations of the cervical spine. PAGE 2 Signed Report (CONTINUED) Name: DAVID SAMUELS [facility] : 1970 Age/S: 48 / M [address] [place] [address] Blvd Unit #: [id number] Loc: [place] [address] Phys: Corona Steiner MD Acct: [id number] Dis Date: Status: REG ER PHONE #: [phone] Exam Date: 02/12/2019 0533 FAX #: [phone] Reason: Seizure EXAMS: CPT CODE: [id number] CT HEAD/BRAIN W/O CONT 22467 < Continued> SL: JSYED-H at 0602 Reported and signed by: Ruperto Sagastume M.D. CC: Peter Clark MD; Corona Steiner MD Technologist:Jose Rojo, RT(R)(CT) CTDI: DLP: Trnscb Date/Time: 02/12/2019 (06) [email or web address] Orig Print D/T: S: 02/12/2019 (604) PAGE 3 Signed Report - XR CHEST 1 [id number] 05:52:00 FAX: Peter Schafer MD [phone] [place]: St: REG FAX: Corona Garcia MD [phone] Name: DAVID SAMUELS [facility] : 1970 Age/S: 48/M [address] [place] [address] Unit #: [id number] Loc: [address] [address] Phys: Corona Steiner MD Acct: [id number] Dis Date: Status: REG ER PHONE #: [phone] Exam Date: 02/12/2019 0503 FAX #: [phone] Reason: Seizure Adult EXAMS: CPT CODE: [id number] XR CHEST 1 V 23556 EXAM: CR, XR chest one view: 02/12/2019, 0453 hours HISTORY: Seizure Adult TECHNIQUE: 1 view of the chest. COMPARISON: 12/17/2018 FINDINGS: Trachea is midline. Heart is normal in size. Pulmonary vascularity is unremarkable. There is no airspace consolidation, pleural effusion or pneumothorax. Osseous structures are stable. IMPRESSION: No acute cardiopulmonary disease seen. SL: [JSYED-H] at 0552 Reported and signed by: Ruperto Sagastume M.D. CC: Peter Clark MD; Corona Steiner MD Technologist: Khushbu Mason RT(R) Trnscrd Date/Time/By: 02/12/2019 (0552) : By: [email or web address] Orig Print D/T: S: 02/12/2019 (0555) PAGE 1 Signed Report BASIC METABOLIC [id number] 05:48:00* Test Item Value Reference Range Comments SODIUM (test code=NA) 141 mEq/L 134-147 POTASSIUM (test code=K) 4.0 mEq/L 3.4-5.0 CHLORIDE (test code=CL) 108 mEq/L 100-108 CARBON DIOXIDE (test code=CO2) 26 mEq/L 21-33 ANION GAP (test code=GAP) 11 0-20 GLUCOSE (test code=GLU) 110 mg/dL 70-110 BLOOD UREA NITROGEN (test code=BUN) 23 mg/dL 7-18 GLOMERULAR FILTRATION RATE (test code=GFR) 64.9 95-105 Units of measure=ml/min/1.73 m2 CREATININE (test code=CREAT) 1.2 mg/dL 0.6-1.3 CALCIUM (test code=CA) 8.6 mg/dL 8.0-10.5 HEPATIC FUNCTION [id number] 05:48:00* Test Item Value Reference Range Comments TOTAL PROTEIN (test code=PROT) 6.5 g/dL 6.4-8.2 ALBUMIN (test code=ALB) 3.60 g/dL 3.4-5.0 BILIRUBIN TOTAL (test code=BILT) 0.40 mg/dL 0.0-1.0 BILIRUBIN DIRECT (test code=BILD) 0.10 MG/DL 0.0-0.30 BILIRUBIN INDIRECT (test code=BILIND) 0.30 MG/DL SGOT/AST (test code=AST) 4 IUnit/L 15-37 SGPT/ALT (test code=ALT) 31 IUnit/L 15-65 ALKALINE PHOSPHATASE TOTAL (test code=ALKP) 60 IUnit/L 20-125 CREATINE KINASE (CK)2019-02-12 05:48:00* Test Item Value Reference Range Comments CREATINE KINASE (CK) (test code=CK) 36 35-232 Result is in INTERNATIONAL UNITS/LITER [id number] 05:48:00* Test Item Value Reference Range Comments TROPONIN-I (test code=TROPI) < 0.015 ng/mL 0.000-0.045 Negative: <=0.045 Positive: >=0.046 Correlation with serial results, other cardiac markers andclinical findings is necessary to determine the clinicalsignificance of this result. Results using different methodologies should not be comparedto one another as quantitative results may vary by method. [id number] 05:48:00* Test Item Value Reference Range Comments ALCOHOL (test code=ALC) < 0.003 G/dL <0.003 Ethyl Alcohol Interpretation: 0.100 gm/dL - Legally Intoxicated 0.300-0.400 gm/dL - Severely Intoxicated >0.400 gm/dL - Potentially LethalResults are for Medical purposes only, and not for Legal orEmployment evaluation purposes. PROTHROMBIN [id number] 05:35:00* Test Item Value Reference Range Comments PROTHROMBIN TIME PATIENT (test code=PTP) 11.1 SECONDS 9.3-12.9 INTERNATIONAL NORMAL RATIO (test code=INR) 1.0 0.8-1.2 TARGET INR BY INDICATION Indication INR1. [...] Infarction (to prevent recurrent infarct). THROMBOPLASTIN TIME [id number] 05:35:00* Test Item Value Reference Range Comments THROMBOPLASTIN TIME PARTIAL (test code=PTT) 29.2 Seconds 25.0-39.5 Therapeutic Range: 50.4 - 88.3 Seconds Effective 11/23/2018 CBC W/AUTO [id number] 05:25:00* Test Item Value Reference Range Comments WHITE BLOOD CELL (test code=WBC) 7.84 x10 3/uL 4.5-11.0 RED BLOOD CELL (test code=RBC) 4.51 x10 6/uL 4.00-5.60 HEMOGLOBIN (test code=HGB) 13.9 g/dL 12.5-16.9 HEMATOCRIT (test code=HCT) 41.9 % 37.5-50.7 MEAN CELL VOLUME (test code=MCV) 92.9 fL 81.0-99.0 MEAN CELL HGB (test code=MCH) 30.8 pg 27.0-33.0 MEAN CELL HGB CONCETRATION (test code=MCHC) 33.2 g/dL 33.0-37.0 RED CELL DISTRIBUTION WIDTH CV (test code=RDW) 14.3 % 11.5-14.5 RED CELL DISTRIBUTION WIDTH SD (test code=RDW-SD) 48.4 fL 37.0-54.0 PLATELET COUNT (test code=PLT) 156 x10 3/uL 150-400 MEAN PLATELET VOLUME (test code=MPV) 8.6 fL 7.0-9.0 NEUTROPHIL % (test code=NT%) 75.1 % 56.0-77.0 IMMATURE GRANULOCYTE % (test code=IG%) 0.8 % 0.0-2.0 LYMPHOCYTE % (test code=LY%) 17.6 % 14.0-32.0 MONOCYTE % (test code=MO%) 5.7 % 4.8-9.0 EOSINOPHIL % (test code=EO%) 0.5 % 0.3-3.7 BASOPHIL % (test code=BA%) 0.3 % 0.0-2.0 NUCLEATED RBC % (test code=NRBC%) 0.0 % 0-0 NEUTROPHIL # (test code=NT#) 5.89 x10 3/uL 2.0-7.6 IMMATURE GRANULOCYTE # (test code=IG#) 0.06 x10 3/uL 0.00-0.03 LYMPHOCYTE # (test code=LY#) 1.38 x10 3/uL 1.0-3.8 MONOCYTE # (test code=MO#) 0.45 x10 3/uL 0.1-0.8 EOSINOPHIL # (test code=EO#) 0.04 x10 3/uL 0.0-0.2 BASOPHIL # (test code=BA#) 0.02 x10 3/uL 0.0-0.2 NUCLEATED RBC # (test code=NRBC#) 0.00 x10 3/uL 0.0-0.1 MANUAL DIFF REQUIRED (test code=MDIFF) NO BASIC METABOLIC [id number] 03:03:00* Test Item Value Reference Range Comments SODIUM (test code=NA) 144 mEq/L 134-147 POTASSIUM (test code=K) 4.8 mEq/L 3.4-5.0 CHLORIDE (test code=CL) 114 mEq/L 100-108 CARBON DIOXIDE (test code=CO2) 22 mEq/L 21-33 ANION GAP (test code=GAP) 13 0-20 GLUCOSE (test code=GLU) 139 mg/dL 70-110 BLOOD UREA NITROGEN (test code=BUN) 13 mg/dL 7-18 GLOMERULAR FILTRATION RATE (test code=GFR) 64.9 95-105 Units of measure=ml/min/1.73 m2 CREATININE (test code=CREAT) 1.2 mg/dL 0.6-1.3 CALCIUM (test code=CA) 8.9 mg/dL 8.0-10.5 - CT L-SPINE W/O [id number] 02:05:00 Name: DAVID SAMUELS [facility] : 1970 Age/S: 48 / M [address] [place] [address] Unit #: [id number] Loc: [place] [address] Phys: Shawn Davis MD Acct: [id number] Dis Date: Status: REG ER PHONE #: [phone] Exam Date: 02/05/2019 0139 FAX #: [phone] Reason: Fall s/p lumbar injections EXAMS: CPT CODE: [id number] CT L-SPINE W/O CONTRAST 57548 - CT L-SPINE W/O CONTRAST History: Fall. Status post lumbar injections. Technique: Noncontrast imaging of the lumbar spine was obtained. Axial, sagittal and coronal coned down imaging of the lumbar spine are provided. This exam was performed according to our departmental dose optimization program which includes automated exposure control, adjustment of the mA and/or kV according to patient size and/or use of iterative reconstruction technique. Comparison: CT lumbar spine 09/13/2018 Findings: The lumbar vertebral body heights and alignment are m aintained. The posterior elements are intact. No high-grade bony central canal narrowing or bony neural foraminal narrowing. No sign ificant facet arthrosis is identified. Minimal marginal osteophyto sis is noted along the superior lumbar spine. Minimal L4-L5 broad-based disc bulge is redemonstrated. Coned-down imaging of th e partially visualized paraspinal soft tissues demonstrate no overt fluid collection on this noncontrast study. Minimal calcified plaque is noted scattered along the aorta and iliac arteries. Impression: No lumbar fracture or subluxation. Minimal L4-L5 broad-based disc bulge is redemonstrated. PAGE 1 Signed Report (CONTINUED) Na me: DAVID SAMUELS [facility] : Age/S: 48 / M [address] [place] [address] Unit #: [id number] Loc: [place] [address] Phys: Shawn Davis MD Acct: [id number] Dis Da te: Status: REG ER PHONE #: Exam Date: 02/05/2019 0139 FAX #: [phone] Reason: Fall s/p lumbar injections EXAMS: CPT CODE: [id number] CT L-SPINE W/O CO NTRAST 98855 <Continued> at 0205 Reported and signed by: Jose Bean M.D. CC: Peter Clark MD; Shawn Davis MD Technologist:RT Mykel(R)(CT) CTDI: DLP: Trnscb Date/Time: 02/05/2019 (0205) [email or web address] PAGE 2 Signed Report CBC W/AUTO [id number] 01:42:00* Test Item Value Reference Range Comments WHITE BLOOD CELL (test code=WBC) 9.64 x10 3/uL 4.5-11.0 RED BLOOD CELL (test code=RBC) 4.44 x10 6/uL 4.00-5.60 HEMOGLOBIN (test code=HGB) 13.6 g/dL 12.5-16.9 HEMATOCRIT (test code=HCT) 41.0 % 37.5-50.7 MEAN CELL VOLUME (test code=MCV) 92.3 fL 81.0-99.0 MEAN CELL HGB (test code=MCH) 30.6 pg 27.0-33.0 MEAN CELL HGB CONCETRATION (test code=MCHC) 33.2 g/dL 33.0-37.0 RED CELL DISTRIBUTION WIDTH CV (test code=RDW) 15.4 % 11.5-14.5 RED CELL DISTRIBUTION WIDTH SD (test code=RDW-SD) 52.3 fL 37.0-54.0 PLATELET COUNT (test code=PLT) 164 x10 3/uL 150-400 MEAN PLATELET VOLUME (test code=MPV) 9.7 fL 7.0-9.0 NEUTROPHIL % (test code=NT%) 89.7 % 56.0-77.0 IMMATURE GRANULOCYTE % (test code=IG%) 0.5 % 0.0-2.0 LYMPHOCYTE % (test code=LY%) 5.8 % 14.0-32.0 MONOCYTE % (test code=MO%) 3.6 % 4.8-9.0 EOSINOPHIL % (test code=EO%) 0.2 % 0.3-3.7 BASOPHIL % (test code=BA%) 0.2 % 0.0-2.0 NUCLEATED RBC % (test code=NRBC%) 0.0 % 0-0 NEUTROPHIL # (test code=NT#) 8.64 x10 3/uL 2.0-7.6 IMMATURE GRANULOCYTE # (test code=IG#) 0.05 x10 3/uL 0.00-0.03 LYMPHOCYTE # (test code=LY#) 0.56 x10 3/uL 1.0-3.8 MONOCYTE # (test code=MO#) 0.35 x10 3/uL 0.1-0.8 EOSINOPHIL # (test code=EO#) 0.02 x10 3/uL 0.0-0.2 BASOPHIL # (test code=BA#) 0.02 x10 3/uL 0.0-0.2 NUCLEATED RBC # (test code=NRBC#) 0.00 x10 3/uL 0.0-0.1 MANUAL DIFF REQUIRED (test code=MDIFF) NO TROPONIN-I [id number] 02:42:00* Test Item Value Reference Range Comments TROPONIN-I RAPID (test code=TROPIRAP) 0.01 ng/mL 0.00-0.08 Performed by certified high speed printer operator at [facility] Negative: <=0.08 Positive: >=0.09An elevated troponin value alone is not sufficient todiagnose a myocardial infarction. Rather, the patient sclinical presentation (history, physical exam) and ECGshould be used in conjunction with troponin in thediagnostic evaluation of suspected myocardial infarction. Aserial sampling protocol is recommended to facilitate the identification of temporal changes in troponin levels characteristic of DE. - XR KNEE 1 OR 2 V [id number] 22:57:00 FAX: Jonathan Santillan [phone] [place]: St: REG Name: DAVID DUQUE [facility] [place] : [birth year] Age/S: 48/M [address] [place] [address] Bl Unit #: [id number] Loc: [address] [place] [address] Phys: Jonathan Royal Acct: [id number] Dis Date: Status: REG ER PHONE #: [phone] Exam Date: 01/02/20192240 FAX #: [phone] Reason: pain s/p fall EXAMS: CPT CODE: [id number] XR KNEE 1 [place] [address] 2 RADIOGRAPHIC VIEWS RIGHT KNEE, 2 RADIOGRAPHIC VIEWS LEFT KNEE INDICATION: pain s/p fall. TECHNIQUE: 2 radiographic views right knee, 2 radiographic views left knee COMPARISONS: Left knee radiographs 11/03/2018 F INDINGS: Left knee: There is no osseous fracture or dislocation. There is no joint effusion. The joint spaces are preserved. There is minimal osteophyte formation of the patellar undersurface. There is no subcutaneous emphysema or unintentional retained rad iodense foreign body. Right knee: There is no osseou s fracture or dislocation. There is no joint effusion. The joint spaces are preserved. There is calcific tendinosis of the patellar tendon insert ion. There is no subcutaneous emphysema or unintentional retained radiodense foreign body. IMPRESSION: 1. Intact left knee. 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 2. Intact right knee. Calcific te ndinosis of the right patellar tendon insertion. at 0229 Reported and signed by: Moi Jaramillo D.O. PAGE 1 Signed Report (CONTINUED) FAX: Karson LeleJonathan TOMAS [phone] [place]: St: REG Name: DAVID SAMUELS [facility] : 1970 Age/S: 48/M [address] [place], [place] [address]vd Unit #: [id number] Loc: [address] [place] [address] P hys: Jonathan Royal DO Acct: [id number] Dis Date: Status: REG ER PHONE #: [phone] Exam Date: 01/02/20192240 FAX #: [phone] Reason: pain s/p fall EXAMS: CPT CODE: [id number] XR KNEE 1 [place] [address] [place] [address] <Continued> CC: Jonathan Royal DO Technologist: RT Kalee(R) Vilma Date/Time/By: 01/02/2019 (2313) : By: [email or web address] Orig Print D/T: S: 01/02/2019 (3057) PAGE 2 Signed Report - XR T-SPINE [id number] 22:54:00 FAX: Jonathan Santillan DO [phone] [place]: St: REG Name: DAVID DUQUE [facility] : [birth year] Age/S: 48/M [address] [place], [place] [address] Unit #: [id number] Loc: [address] [place] [address] Phys: Jonathan Royal DO Acct: [id number] Dis Date: Status: REG ER PHONE #: [phone] Exam Date: 01/02/20192240 FAX #: [phone] Reason: pain s/p fall EXAMS: CPT CODE: [id number] XR T-SPINE 3V 00971 3 RADIOGRAPHIC VIEWS THORACIC SPINE INDICATION: pain s/p fall. TECHNIQUE: 3 radiographic views thoracic spine COMPARISONS: Chest radiographs 12/17/2018 FINDINGS: There is a stable mild apex rightward thoracic scoliosis with apex at the T4 level. The vertebral body heights are p reserved. Anterior to posterior spinal alignment is preserved. There is n o acute thoracic spine fracture or dislocation. IMPRESSI ON: 1. There is no acute thoracic spine fracture or dislocat ion. 2. There is a stable mild apex rightward thoracic scoliotic curvature. at 2831 Reported and signed by: Moi Jaramillo D.O. CC: Jonathan Royal DO Technologist: RT Kalee(R) Trnscrd Date/Time/By: 01/02/2019 (5177) : By: [email or web address] Orig Print D/T: S: 01/02/2019 (4266) PAGE 1 Signed Report - XR L-SPINE 2/3 [id number] 22:52:00 FAX: Jonathan Santillan DO [phone] [place]: St: REG Name: Mag DAVID VIDES [facility] : [birth year] Age/S: 48/M [address] [place] [address] Unit #: [id number] Loc: [address] [address] Phys: Jonathan Royla DO Acct: [id number] Dis Date: Status: REG ER PHONE #: [phone] Exam Date: 01/02/20192241 FAX #: [phone] Reason: pain s/p fall EXAMS: CPT CODE: [id number] XR L-SPINE 2/3 VIEWS 63918 Procedure: Lumbar Spine Radiographs. Clinical Indication: Back pain post fall. Comparison: None. FINDINGS: The 3 views of the lumbar spine show five non rib bearing lumbar vertebral segments. There are no fractures, pars defects, or spondylolisthesis. The disc spaces are normal. The posterior elements, spinous processes and transverse processes are n ormal. The paraspinal soft tissues are unremarkable. The visualized sacroi liac joints are unremarkable. There is degenerative change from L3 throug h S1 including marginal osteophyte formation and facet joint hypertrophy. IMPRESSION: 1. Minimal degenerative change. SL: K56-H at 6232 Reported and signed by: Ran Alonso M.D. CC: Jonathan Royal DO Technologist: RT Negin(R) Trnscrd Date/Time/By: 01/02 (2570) : By: Yvon Orig Print D/T: S: 01/02/2019 (7886) PAGE 1 Signed Report - XR C-SPINE 2-3 [id number] 22:48:00 FAX: Jonathan Santillan DO [phone] [place]: St: REG Name: DAVID DUQUE [facility] : [birth year] Age/S: 48/M [address] [place] [address] Unit #: [id number] Loc: [address] [address] Phys: Jonathan Royal DO Acct: [id number] Dis Date: Status: REG ER PHONE #: [phone] Exam Date: 01/02/20192241 FAX #: [phone] Reason: pain s/p fall EXAMS: CPT CODE: [id number] XR C-SPINE 2-3 VIEWS 12584 Procedure. Cervical Spine Radiogra phs. Clinical Indication: Neck pain post fall. Comp arison: None. FINDINGS: The 5 views of the cervical spine show normal alignment of the cervical spine. There are no fractures or subluxations. The prevertebral soft tissues and atlanto-dental intersp [place] are normal. The facet joint, spinolaminar line and spinous process ali gnment is normal. The vertebral body heights and disk spaces are unremarka ble. IMPRESSION: 1. Unremarkable cervical spine. SL: K56-H Electro nically Signed by Callie Alonso on 01/03/20 19 at 2248 Reported and signed by: Ran Ford M.D. CC: Jonathan Royal DO Technologist: RT Kalee(Lucita) Trnscrd Date/Time/By: 01/02/2019 (1) : By: [email or web address] Orig Print D/T : S: 01/02/2019 (2968) PAGE 1 Sig joel Report [id number] 21:33:00* Test Item Value Reference Range Comments TROPONIN-I (test code=TROPI) < 0.015 ng/mL 0.000-0.045 Negative: <=0.045 Positive: >=0.046 Correlation with serial results, other cardiac markers andclinical findings is necessary to determine the clinicalsignificance of this result. Results using different methodologies should not be comparedto one another as quantitative results may vary by method. [id number] METABOLIC [id number] 21:15:00* Test Item Value Reference Range Comments SODIUM (test code=NA) 136 mEq/L 134-147 POTASSIUM (test code=K) 3.7 mEq/L 3.4-5.0 CHLORIDE (test code=CL) 107 mEq/L 100-108 CARBON DIOXIDE (test code=CO2) 23 mEq/L 21-33 ANION GAP (test code=GAP) 10 0-20 GLUCOSE (test code=GLU) 85 mg/dL 70-110 BLOOD UREA NITROGEN (test code=BUN) 12 mg/dL 7-18 GLOMERULAR FILTRATION RATE (test code=GFR) 59.2 95-105 Units of measure=ml/min/1.73 m2 CREATININE (test code=CREAT) 1.3 mg/dL 0.6-1.3 CALCIUM (test code=CA) 8.8 mg/dL 8.0-10.5 [id number] 21:15:00* Test Item Value Reference Range Comments ALCOHOL (test code=ALC) < 0.003 G/dL <0.003 Ethyl Alcohol Interpretation: 0.100 gm/dL - Legally Intoxicated 0.300-0.400 gm/dL - Severely Intoxicated >0.400 gm/dL - Potentially LethalResults are for Medical purposes only, and not for Legal orEmployment evaluation purposes. - CT HEAD/BRAIN W/O [id number] 21:05:00 Name: DAVID SAMUELS [facility] : 1970 Age/S: 48 / M [address] [place] [address] Unit #: [id number] Loc: [place] [address] Phys: Jonathan Royal DO Acct: [id number] Dis Date: Status: REG ER PHONE #: [phone] Exam Date: 01/02/20192047 FAX #: [phone] Reason: HEADACHE EXAMS: CPT CODE: [id number] CT HEAD/BRAIN W/O CONT [address] HEAD INDICATION: Fall, headache. Anticoagulant therapy. TECHNIQUE: Unenhanced CT was performed from the skull vertex to the foramen magnum with axial, coronal and sagittal reconstructions. Radiation dose length product 465 mGy-cm. COMPARISONS: CT brain 11/03/2018 FINDINGS: The paranasal sinuses are clear as visualized. The mastoid air cells and middle ears appear clear as visualized. There is no acute depressed skull fracture. The cerebral ventricles are normal caliber. There is mild generalized brain parenchymal volume loss. There is no cerebral mass effect, midline shift, intracranial hemorrhage or acute large vessel territory cerebral cortical edema. IMPRESSION: 1. There is no acute intracranial process. at 2105 Reported and signed by: Moi Jaramillo D.O. CC: Jonathan Royal DO Technologist:Chris Wharton, RT(R) CTDI: DLP: Trnscb Date/Time: 01/02/2019 (2104) [email or web address] Orig Print D/T: S: 01/02/2019 (7274) PAGE 1 Signed Report CBC W/AUTO [id number] 20:56:00* Test Item Value Reference Range Comments WHITE BLOOD CELL (test code=WBC) 8.76 x10 3/uL 4.5-11.0 RED BLOOD CELL (test code=RBC) 4.63 x10 6/uL 4.00-5.60 HEMOGLOBIN (test code=HGB) 14.0 g/dL 12.5-16.9 HEMATOCRIT (test code=HCT) 40.2 % 37.5-50.7 MEAN CELL VOLUME (test code=MCV) 86.8 fL 81.0-99.0 MEAN CELL HGB (test code=MCH) 30.2 pg 27.0-33.0 MEAN CELL HGB CONCETRATION (test code=MCHC) 34.8 g/dL 33.0-37.0 RED CELL DISTRIBUTION WIDTH CV (test code=RDW) 14.7 % 11.5-14.5 RED CELL DISTRIBUTION WIDTH SD (test code=RDW-SD) 46.9 fL 37.0-54.0 PLATELET COUNT (test code=PLT) 194 x10 3/uL 150-400 MEAN PLATELET VOLUME (test code=MPV) 8.3 fL 7.0-9.0 NEUTROPHIL % (test code=NT%) 74.8 % 56.0-77.0 IMMATURE GRANULOCYTE % (test code=IG%) 0.3 % 0.0-2.0 LYMPHOCYTE % (test code=LY%) 18.3 % 14.0-32.0 MONOCYTE % (test code=MO%) 6.1 % 4.8-9.0 EOSINOPHIL % (test code=EO%) 0.2 % 0.3-3.7 BASOPHIL % (test code=BA%) 0.3 % 0.0-2.0 NUCLEATED RBC % (test code=NRBC%) 0.0 % 0-0 NEUTROPHIL # (test code=NT#) 6.55 x10 3/uL 2.0-7.6 IMMATURE GRANULOCYTE # (test code=IG#) 0.03 x10 3/uL 0.00-0.03 LYMPHOCYTE # (test code=LY#) 1.60 x10 3/uL 1.0-3.8 MONOCYTE # (test code=MO#) 0.53 x10 3/uL 0.1-0.8 EOSINOPHIL # (test code=EO#) 0.02 x10 3/uL 0.0-0.2 BASOPHIL # (test code=BA#) 0.03 x10 3/uL 0.0-0.2 NUCLEATED RBC # (test code=NRBC#) 0.00 x10 3/uL 0.0-0.1 MANUAL DIFF REQUIRED (test code=MDIFF) NO TROPONIN-I [id number] 01:34:00* Test Item Value Reference Range Comments TROPONIN-I RAPID (test code=TROPIRAP) 0.00 ng/mL 0.00-0.08 Performed by certified high speed printer operator at [facility] Negative: <=0.08 Positive: >=0.09An elevated troponin value alone is not sufficient todiagnose a myocardial infarction. Rather, the patient sclinical presentation (history, physical exam) and ECGshould be used in conjunction with troponin in thediagnostic evaluation of suspected myocardial infarction. Aserial sampling protocol is recommended to facilitate the identification of temporal changes in troponin levels characteristic of DE. DRUGS OF ABUSE SCREEN [id number] 22:47:00* Test Item Value Reference Range Comments URN COCAINE (test code=COCAURN) NEGATIVE NEGATIVE URN CANNABINOIDS (test code=CANNABURN) NEGATIVE NEGATIVE URN AMPHETAMINE (test code=AMPHETURN) NEGATIVE NEGATIVE URN BARBITURATE (test code=BARBITURN) NEGATIVE NEGATIVE URN BENZODIAZEPINE (test code=BENZOURN) NEGATIVE NEGATIVE Cut-off value:200 ng/mL URN OPIATES (test code=OPIATURN) NEGATIVE NEGATIVE Cut-off value:2000 ng/mL URN PHENCYCLIDINE (PCP) (test code=PHENCURN) NEGATIVE NEGATIVE Cutoffs:Barbiturates 200 ng/mLBenzodiazepines 200 ng/mLTHC Cannabinoids 50 ng/mLOpiates(Morphine) 2000 ng/mLAmphetamine 1000 ng/mLCocaine 300 ng/mLPCP phencyclidine 25 ng/mL Unconfirmed screening results shouldnot be used for non-medical purposes. URINALYSIS [id number] 22:37:00* Test Item Value Reference Range Comments UA COLOR (test code=COLU) STRAW YEL/STRAW UA APPEARANCE (test code=APPU) CLEAR CLEAR UA GLUCOSE DIPSTICK (test code=DGLUU) 2+ NEGATIVE UA BILIRUBIN DIPSTICK (test code=BILU) NEGATIVE NEGATIVE UA KETONE DIPSTICK (test code=KETU) NEGATIVE NEGATIVE UA SPECIFIC GRAVITY (test code=SGU) 1.011 1.005-1.030 UA BLOOD DIPSTICK (test code=KARLOS) NEGATIVE NEGATIVE UA PH DIPSTICK (test code=DARRION) 6.0 5.0-7.0 UA PROTEIN DIPSTICK (test code=PROU) NEGATIVE NEGATIVE UA UROBILINIOGEN DIPSTICK (test code=URO) 0.2 mg/dL 0.2-1.0 UA NITRITE DIPSTICK (test code=JM) NEGATIVE NEGATIVE UA LEUKOCYTE ESTERASE DIPSTICK (test code=LEUU) NEGATIVE NEGATIVE UA WBC (test code=WBCU) 0-3 WBC/HPF 0-3 UA RBC (test code=RBCU) 0-3 RBC/HPF 0-3 UA BACTERIA (test code=BACU) TRACE /HPF NONE SEEN UA SQUAMOUS CELLS (test code=SQU) NONE SEEN /HPF NONE SEEN COMMENTS: Clean CatchHEPATIC FUNCTION [id number] 20:47:00* Test Item Value Reference Range Comments TOTAL PROTEIN (test code=PROT) 6.6 g/dL 6.4-8.2 ALBUMIN (test code=ALB) 3.70 g/dL 3.4-5.0 BILIRUBIN TOTAL (test code=BILT) 0.40 mg/dL 0.0-1.0 BILIRUBIN DIRECT (test code=BILD) < 0.10 MG/DL 0.0-0.30 BILIRUBIN INDIRECT (test code=BILIND) 0.30 MG/DL SGOT/AST (test code=AST) 12 IUnit/L 15-37 SGPT/ALT (test code=ALT) 25 IUnit/L 15-65 ALKALINE PHOSPHATASE TOTAL (test code=ALKP) 63 IUnit/L 20-125 [id number] 20:47:00* Test Item Value Reference Range Comments ACETAMINOPHEN (test code=ACET) < 2 ug/mL 10-30 [id number] 20:47:00* Test Item Value Reference Range Comments SALICYLATE (test code=THIEN) < 1.7 mg/dL 2.8-20.0 [id number] 20:47:00* Test Item Value Reference Range Comments ALCOHOL (test code=ALC) < 0.003 G/dL <0.003 Ethyl Alcohol Interpretation: 0.100 gm/dL - Legally Intoxicated 0.300-0.400 gm/dL - Severely Intoxicated >0.400 gm/dL - Potentially LethalResults are for Medical purposes only, and not for Legal orEmployment evaluation purposes. CBC W/AUTO [id number] 20:30:00* Test Item Value Reference Range Comments WHITE BLOOD CELL (test code=WBC) 6.21 x10 3/uL 4.5-11.0 RED BLOOD CELL (test code=RBC) 4.54 x10 6/uL 4.00-5.60 HEMOGLOBIN (test code=HGB) 13.5 g/dL 12.5-16.9 HEMATOCRIT (test code=HCT) 41.1 % 37.5-50.7 MEAN CELL VOLUME (test code=MCV) 90.5 fL 81.0-99.0 MEAN CELL HGB (test code=MCH) 29.7 pg 27.0-33.0 MEAN CELL HGB CONCETRATION (test code=MCHC) 32.8 g/dL 33.0-37.0 RED CELL DISTRIBUTION WIDTH CV (test code=RDW) 15.0 % 11.5-14.5 RED CELL DISTRIBUTION WIDTH SD (test code=RDW-SD) 49.7 fL 37.0-54.0 PLATELET COUNT (test code=PLT) 169 x10 3/uL 150-400 MEAN PLATELET VOLUME (test code=MPV) 8.7 fL 7.0-9.0 NEUTROPHIL % (test code=NT%) 74.0 % 56.0-77.0 IMMATURE GRANULOCYTE % (test code=IG%) 0.3 % 0.0-2.0 LYMPHOCYTE % (test code=LY%) 18.5 % 14.0-32.0 MONOCYTE % (test code=MO%) 6.6 % 4.8-9.0 EOSINOPHIL % (test code=EO%) 0.3 % 0.3-3.7 BASOPHIL % (test code=BA%) 0.3 % 0.0-2.0 NUCLEATED RBC % (test code=NRBC%) 0.0 % 0-0 NEUTROPHIL # (test code=NT#) 4.59 x10 3/uL 2.0-7.6 IMMATURE GRANULOCYTE # (test code=IG#) 0.02 x10 3/uL 0.00-0.03 LYMPHOCYTE # (test code=LY#) 1.15 x10 3/uL 1.0-3.8 MONOCYTE # (test code=MO#) 0.41 x10 3/uL 0.1-0.8 EOSINOPHIL # (test code=EO#) 0.02 x10 3/uL 0.0-0.2 BASOPHIL # (test code=BA#) 0.02 x10 3/uL 0.0-0.2 NUCLEATED RBC # (test code=NRBC#) 0.00 x10 3/uL 0.0-0.1 MANUAL DIFF REQUIRED (test code=MDIFF) NO CHEMISTRY 8 [id number] 20:10:00* Test Item Value Reference Range Comments ISTAT-SODIUM (test code=NAP) MMOL/L 134-147 ISTAT-POTASSIUM (test code=KP) MMOL/L 3.4-5.0 ISTAT-CHLORIDE (test code=CLP) MMOL/L 100-108 ISTAT CARBON DIOXIDE (test code=ISTAT-CO2) mmol/L 21-33 ISTAT CALCIUM IONIZED (test code=ISTAT-ZANE) MG/DL 1.12-1.32 ISTAT-GLUCOSE (test code=GLUP) MG/DL 70-110 ISTAT-BUN (test code=BUNP) MG/DL 7-18 BEDSIDE CREATININE (test code=CREATBED) MG/DL 0.6-1.3 GLOMERULAR FILTRATION RATE POC (test code=GFRBED) 69 ML/MIN CHEMISTRY 8 [id number] 20:10:00* Test Item Value Reference Range Comments ISTAT-SODIUM (test code=NAP) 140 MMOL/L 134-147 ISTAT-POTASSIUM (test code=KP) 3.7 MMOL/L 3.4-5.0 ISTAT-CHLORIDE (test code=CLP) 105 MMOL/L 100-108 Performed by certified high speed printer operator at [facility] ISTAT CARBON DIOXIDE (test code=ISTAT-CO2) 21.0 mmol/L 21-33 ISTAT CALCIUM IONIZED (test code=ISTAT-ZANE) 1.27 MG/DL 1.12-1.32 ISTAT-GLUCOSE (test code=GLUP) 90 MG/DL 70-110 ISTAT-BUN (test code=BUNP) 19 MG/DL 7-18 BEDSIDE CREATININE (test code=CREATBED) 1.2 MG/DL 0.6-1.3 GLOMERULAR FILTRATION RATE POC (test code=GFRBED) 69 ML/MIN TROPONIN-I [id number] 19:46:00* Test Item Value Reference Range Comments TROPONIN-I RAPID (test code=TROPIRAP) 0.00 ng/mL 0.00-0.08 Performed by certified high speed printer operator at [facility] Negative: <=0.08 Positive: >=0.09An elevated troponin value alone is not sufficient todiagnose a myocardial infarction. Rather, the patient sclinical presentation (history, physical exam) and ECGshould be used in conjunction with troponin in thediagnostic evaluation of suspected myocardial infarction. Aserial sampling protocol is recommended to facilitate the identification of temporal changes in troponin levels characteristic of DE. - XR CHEST 2 [id number] 19:46:00 FAX: Marilu Betancourt MD [phone] [place]: St: [facility] FAX: Paula Pagan MD [phone] Name: DAVID SAMUELS [facility] : 1970 Age/S: 48/M [address] [place] [address] Unit #: [id number] Loc: [address] [address] Phys: Marilu Mcelroy MD Acct: [id number] Dis Date: Status: REG ER PHONE #: [phone] Exam Date: 12/17/20181939 FAX #: [phone] Reason: acute CP EXAMS: CPT CODE: [id number] XR CHEST 2 V 33761 PROCEDURE: - XR CHEST 2 V INDICATION: 48 years Male, acute chest pain. COMPARISON: Chest x-ray 11/03/2018 FINDINGS: The cardiac silhouette and pulmonary vasculature are normal for projection and degree of inspiration. No lobar consolidation, effusion, or pneumothorax. No pleural abnormalities are seen. No acute bony abnormalities. IMPRESSION: No acute intrathoracic abnormalities. SL: JH-H at 1946 Reported and signed by: Jose Valdez M.D. CC: Marilu Mcelroy MD; Paula Clay MD Technologist: RT Kalee(Lucita) Trnscrd Date/Time/By: 12/17/2018 (1945) : By: [email or web address] Orig Print D/T: S: 12/17/2018 (1948) PAGE 1 Signed Report POCT-GLUCOSE [id number] 07:40:00* Test Item Value Reference Range Comments POC-GLUCOSE METER (BEAKER) (test tzwl=1332) 149 mg/dL 70-110 [address]ED AT [address] [address] RAPID DRUG SCREEN, [id number] 22:07:00* Test Item Value Reference Range Comments BARBITURATE URINE (BEAKER) (test ytop=032) Negative Negative BENZODIAZEPINE SCREEN URINE (BEAKER) (test jyka=805) Negative Negative COCAINE (METAB.) SCREEN (BEAKER) (test ijab=1331) Negative Negative METHADONE SCREEN (BEAKER) (test jqyi=0512) Negative Negative OPIATE SCREEN URINE (BEAKER) (test hphi=744) Positive Negative CANNABINOID SCREEN URINE (BEAKER) (test ebgm=263) Negative Negative AMPH/METHAMPH SCREEN (BEAKER) (test fanr=7466) Negative Negative PHENCYCLIDINE SCREEN URINE (BEAKER) (test goug=476) Negative Negative OXYCODONE SCREEN URINE (BEAKER) (test nwqt=3413) Negative Negative DRUG CUTOFF CONC.Cocaine 300 ng/mL Cannabinoid 50 ng/mL Benzodiazepine 200 ng/mLBarbiturate 200 ng/mLPh encyclidine 25 ng/mLOpiate 300 ng/mLMethadone 300 ng/mLAmphetamine/ 1000 ng/mL MethamphetamineOxycodone 300 ng/mLThis assay provides an unconfirmed qualitative test result for the cli nical management of patients in emergency situations. Chain of custody not maint ained. Some dmxa-fpa-ramxyhz medications, as well as adulterants, may cause inac curate results. Clinical correlation should be applied. A more comprehensive viry g screen or confirmation of a detected drug may be performed upon request.POCT- GLUCOSE [id number] 21:39:00* Test Item Value Reference Range Comments POC-GLUCOSE METER (BEAKER) (test dbxn=8038) 86 mg/dL 70-110 TESTED AT [address] [address] POCT-GLUCOSE [id number] 13:18:00* Test Item Value Reference Range Comments POC-GLUCOSE METER (BEAKER) (test ejdf=4814) 104 mg/dL 70-110 TESTED AT [address] [address] TROPONIN [id number] 13:06:00* Test Item Value Reference Range Comments TROPONIN I (BEAKER) (test nhxy=717) < ng/mL 0.00-0.03 Troponin I (TnI) levels [...] acute neurological disease, and per sistent tachyarrhythmia.POCT-GLUCOSE [id number] 10:50:00* Test Item Value Reference Range Comments POC-GLUCOSE METER (BEAKER) (test nzjr=0410) 92 mg/dL 70-110 TESTED AT [address] [address] HEMOGLOBIN [id number] 08:48:00* Test Item Value Reference Range Comments HEMOGLOBIN A1C (BEAKER) (test nala=006) 7.7 % 4.3-6.1 LIPID [id number] 04:51:00* Test Item Value Reference Range Comments TRIGLYCERIDES (BEAKER) (test oeyj=160) 110 mg/dL CHOLESTEROL (BEAKER) (test ucij=540) 162 mg/dL HDL CHOLESTEROL (BEAKER) (test zwtu=068) 42 mg/dL LDL CHOLESTEROL CALCULATED (BEAKER) (test kzfa=829) 98 mg/dL Triglyceride Reference Range: Low Risk <150 Borderline 150-199 High Risk 200-499 Very High Risk >=500Cholesterol Reference Range: Low Risk <200 Borderline 200-239 High Risk >240HDL Cholesterol Reference Range: Low Risk >=60 High Risk <40LDL Cholesterol Reference Range: Optimal <100 Near Optimal 100-129 Borderline 130-159 High 160-189 Very High >=190 COMPREHENSIVE METABOLIC [id number] 04:51:00* Test Item Value Reference Range Comments TOTAL PROTEIN (BEAKER) (test capl=943) 6.3 gm/dL 6.0-8.3 ALBUMIN (BEAKER) (test coux=4929) 3.8 g/dL 3.5-5.0 ALKALINE PHOSPHATASE (BEAKER) (test hgdp=414) 60 U/L 40-150 BILIRUBIN TOTAL (BEAKER) (test izkg=022) 0.3 mg/dL 0.2-1.2 SODIUM (BEAKER) (test kyrw=597) 136 meq/L 136-145 POTASSIUM (BEAKER) (test aqpw=378) 4.0 meq/L 3.5-5.1 CHLORIDE (BEAKER) (test tcti=341) 107 meq/L 98-107 CO2 (BEAKER) (test ngjo=402) 23 meq/L 22-29 BLOOD UREA NITROGEN (BEAKER) (test izof=557) 18 mg/dL 7-21 CREATININE (BEAKER) (test skoj=425) 1.17 mg/dL 0.57-1.25 GLUCOSE RANDOM (BEAKER) (test lqib=525) 131 mg/dL 70-105 CALCIUM (BEAKER) (test wmky=140) 9.2 mg/dL 8.4-10.2 AST (SGOT) (BEAKER) (test bzqr=866) 23 U/L 5-34 ALT (SGPT) (BEAKER) (test jwle=099) 31 U/L 6-55 EGFR (BEAKER) (test tfog=2530) 67 mL/min/1.73 sq m ESTIMATED GFR IS NOT ACCURATE CREATININE CLEARANCE IN PREDICTING GLOMERULAR FILTRATION RATE. ESTIMATED GFR IS NOT APPLICABLE FOR DIALYSIS PATIENTS. TROPONIN [id number] 02:21:00* Test Item Value Reference Range Comments TROPONIN I (BEAKER) (test okfd=736) < ng/mL 0.00-0.03 Troponin I (TnI) levels [...] acidosis, acute neurological disease, and per sistent tachyarrhythmia.[id number] 02:12:00* Test Item Value Reference Range Comments MAGNESIUM (BEAKER) (test xese=767) 2.2 mg/dL 1.6-2.6 BASIC METABOLIC [id number] 02:12:00* Test Item Value Reference Range Comments SODIUM (BEAKER) (test txlq=722) 135 meq/L 136-145 POTASSIUM (BEAKER) (test oeky=410) 3.9 meq/L 3.5-5.1 CHLORIDE (BEAKER) (test escz=250) 106 meq/L 98-107 CO2 (BEAKER) (test wkkx=018) 21 meq/L 22-29 BLOOD UREA NITROGEN (BEAKER) (test awvi=658) 19 mg/dL 7-21 CREATININE (BEAKER) (test cpkl=923) 1.20 mg/dL 0.57-1.25 GLUCOSE RANDOM (BEAKER) (test nprm=183) 126 mg/dL 70-105 CALCIUM (BEAKER) (test dumj=864) 9.1 mg/dL 8.4-10.2 EGFR (BEAKER) (test wqvh=6037) 65 mL/min/1.73 sq m ESTIMATED GFR IS NOT ACCURATE CREATININE CLEARANCE IN PREDICTING GLOMERULAR FILTRATION RATE. ESTIMATED GFR IS NOT APPLICABLE FOR DIALYSIS PATIENTS. RAD, CHEST, 1 VIEW, NON [id number] 01:59:00Reason for exam:->sobShould this be performed at the bedside?->NoFINAL REPORT History: Shortness of breath. Comparison: 05/07/2018 Findings: A single view of the chest is submitted. The cardiomediastinal contours are unremarkable. There is no focal consolidation, pneumothorax, large pleural effusion or evidence of overt pulmonary edema. There is no acute bony abnormality. Impression: No acute abnormality. Signed: Jose [place] Verified Date/Time: 11/20/2018 01:59:03 Reading Location: [address] Reading Room W/PLT COUNT & AUTO [id number] 01:53:00* Test Item Value Reference Range Comments WHITE BLOOD CELL COUNT (BEAKER) (test serx=226) 7.7 K/ L 3.5-10.5 RED BLOOD CELL COUNT (BEAKER) (test oene=178) 4.64 M/ L 4.63-6.08 HEMOGLOBIN (BEAKER) (test vkrp=391) 13.8 GM/DL 13.7-17.5 HEMATOCRIT (BEAKER) (test difj=909) 41.4 % 40.1-51.0 MEAN CORPUSCULAR VOLUME (BEAKER) (test ywmb=863) 89.2 fL 79.0-92.2 MEAN CORPUSCULAR HEMOGLOBIN (BEAKER) (test twdm=638) 29.7 pg 25.7-32.2 MEAN CORPUSCULAR HEMOGLOBIN CONC (BEAKER) (test bojl=510) 33.3 GM/DL 32.3-36.5 RED CELL DISTRIBUTION WIDTH (BEAKER) (test ynno=861) 14.6 % 11.6-14.4 PLATELET COUNT (BEAKER) (test qrpk=877) 190 K/CU MM 150-450 MEAN PLATELET VOLUME (BEAKER) (test jpzp=893) 8.4 fL 9.4-12.4 NUCLEATED RED BLOOD CELLS (BEAKER) (test qelh=375) 0 /100 WBC 0-0 NEUTROPHILS RELATIVE PERCENT (BEAKER) (test kzkn=348) 66 % LYMPHOCYTES RELATIVE PERCENT (BEAKER) (test ufsy=159) 26 % MONOCYTES RELATIVE PERCENT (BEAKER) (test apmx=604) 6 % EOSINOPHILS RELATIVE PERCENT (BEAKER) (test wama=076) 1 % BASOPHILS RELATIVE PERCENT (BEAKER) (test qmux=075) 0 % NEUTROPHILS ABSOLUTE COUNT (BEAKER) (test eawy=620) 5.07 K/ L 1.78-5.38 LYMPHOCYTES ABSOLUTE COUNT (BEAKER) (test ekzq=000) 2.00 K/ L 1.32-3.57 MONOCYTES ABSOLUTE COUNT (BEAKER) (test zybj=239) 0.49 K/ L 0.30-0.82 EOSINOPHILS ABSOLUTE COUNT (BEAKER) (test pzcb=300) 0.04 K/ L 0.04-0.54 BASOPHILS ABSOLUTE COUNT (BEAKER) (test fsne=566) 0.03 K/ L 0.01-0.08 IMMATURE GRANULOCYTES-RELATIVE PERCENT (BEAKER) (test igvq=8777) 0 % 0-1 RAD, KNEE, COMPLETE (4 VIEWS), [id number] 01:52:00Reason for exam:->CHEST PAINShould this be performed at the bedside?->NoFINAL REPORT CLINICAL HISTORY: Pain 4 views of the left knee are submitted without comparison. There is no acute fracture or malalignment. No destructive bony lesion, significant degenerative change or radiopaque foreign body is present. The surrounding soft tissues are normal. IMPRESSION: No acute abnormality. Signed: Jose Anderson MDR[place] Verified Date/Time: 11/20/2018 01:52:22 Reading Location: [address] Reading Room - XR KNEE 3 V [id number] 22:13:00 Name: DAVID SAMUELS [facility] : 1970 Age/S: 48 / M [address] [place] Unit #: [id number] Loc: [place] [address] Phys: Griggs,And ryland R Acct: [id number] Di s Date: Status: PRE ER PHONE #: Exam Date: 11/18/2018 220 FAX #: Reason: fall EXAMS: CPT: [id number] XR KNEE 3 [place] [address] Fluoro Time: DAP (Gy m2): Air Kerma (mGy): AFTER HOURS SERVICE ON: 11/18/2018 10:13 PM Left Knee, 3 Views Location Code M12 History: fall Findings: There is normal anatomic alignment. There is no fracture. No significant arthritic kramer ges are seen. There is no chondrocalcinosis. Impression: Unremarkable knee. at 2213 Reported and signed by: Charmaine Montenegro M.D. CC: Ben Griggs MD; Paula Clay MD PAGE 1 Signed Report [place]: [place] : 1970 Age/S: 48 / M [address] [place] Unit #: [id number] Loc: [place] [address] Phys: Avelino Griggs MD Acct: [id number] Di s Date: Status: PRE ER PHONE #: Exam Date: 11/18/2018 220 FAX #: Reason: fall EXAMS: CPT: [id number] XR KNEE 3 [place] [address] Fluoro Time: DAP (Gy m2): Air Kerma (mGy): <Continued> Technologist: Alpesh Curiel RT(R)(CT) Trnscb Date/Time: 11/18/2018 (2212) [email or web address] Orig Print D/T: S: 11/18/2018 (2215) PAGE 2 Signed Report - CT ABD PELVIS W/O [id number] 22:12:00 Name: DAVID SAMUELS [place] : 1970 Age/S: 48 / M [address] [place] Unit #: [id number] Loc: [place] [address] Phys: Avelino Griggs MD Acct: [id number] Di s Date: Status: PRE ER PHONE #: Exam Date: 11/18/2018 2200 FAX #: Reason: lower abdominal pain EXAMS: CPT: [id number] CT ABD PELVIS W/O CONT 87189 AFTER HOURS SERVICE ON: 10:[address] Scan of the Abdomen and Pelvis Without Contra st Location Code M12 History: lower abdominal pain Technique: Axial and reconstructed coronal scans were performed on a helical scanner pre oral and IV contrast. Study is limited secondary to lack of oral and IV contrast. One or more of the following dose reduction techniques were used: Automated exposure control, adjustme nt of the mA and/or kV according to patient size, and/or utilization of it erative reconstruction technique. Findings: L iver: No significant findings. Gallbladder/Biliary: No significant findin gs. Pancreas: No significant findings. Spleen: No significant fin dings. Adrenals: No significant findings. Kidneys: No nephrolithias is or hydronephrosis. Bladder: Again noted is mild circumferential wall t hickening of the bladder was smooth consistent with cystitis. Comparison made to the prior of 07/29/2018. Bowel: No significant findings. The appendix is unremarkable. Impression: No acute findings in the abdomen or pelvis. Persistent mild circumferential flower dder wall thickening. at 2212 Reported and signed by: Charmaine Montenegro M.D. CC: Ben Griggs MD; Paula Clay MD Technologist:Lucita Trinidad(Lucita)(CT) CTDI: DLP: Trnscb Date/Time: 11/18/2018 (2211) Pat MontillaMA50 Orig Print D/T: S: 11/18/2018 (2214) CTDI: DLP: PAGE 1 Signed Report Glucose blood afvonikcfnd3201-79-61 17:19:00* Test Item Value Reference Range Comments Glucose blood fingerstick (test qejg=UBO3216) 231 mg/dL 65-120 Glucose blood aflezxpcgvx6507-93-15 12:04:00* Test Item Value Reference Range Comments Glucose blood fingerstick (test yuet=WYN4640) 105 mg/dL 65-120 Glucose blood hqavktkoiim5640-75-23 12:03:00* Test Item Value Reference Range Comments Glucose blood fingerstick (test jcrx=XPJ2230) 121 mg/dL 65-120 Glucose blood fvsqsdginuc9760-65-29 08:06:00* Test Item Value Reference Range Comments Glucose blood fingerstick (test btxk=JCB5501) 137 mg/dL 65-120 Glucose blood jepwnamzkan6077-57-69 18:53:00* Test Item Value Reference Range Comments Glucose blood fingerstick (test brcr=CFV6868) 79 mg/dL 65-120 Glucose blood lxemtpxtpdq9241-39-46 11:50:00* Test Item Value Reference Range Comments Glucose blood fingerstick (test gyru=XSH4302) 90 mg/dL 65-120 Knee Left 2 Doxm6428-07-45 08:06:00[place] [id number] [facility] REPORT Name: DAVID SAMUELS Acct Number: [id number] :1970 Age:48 Sex:M Ord Phys: Charmaine Manriquez MD Unit Number: [id number] [facility]: MADELEINE Status: ADM IN Exam Date: 11/07/18 EXAM DESCRIPTION: RAD - Knee Left 2 View - 11/07/2018 6:03 am CLINICAL HISTORY: Fall, knee pain COMPARISON: None. FINDINGS: No fracture, dislocation or periosteal reaction.No joint effusion seen. No joint space narrowing. No soft tissue abnormality. IMPRESSION: Negative left knee. Clinical concerns for internal derangement or occult bony injury could be further assessed with MR imaging. Signed By: Jose Castillo MD Signed AT: 11/07/18 0806 Basic Metabolic Otiyx7658-85-56 06:04:00* Test Item Value Reference Range Comments Serum or plasma sodium measurement (moles/volume) (test sglw=2214-4) 141 mmol/L 136-145 Potassium [Moles/volume] in Serum or Plasma (test yizq=4581-7) 3.9 mmol/L 3.5-5.1 Chloride [Moles/volume] in Serum or Plasma (test gzky=1171-1) 110 mmol/L 98-107 Carbon dioxide, total [Moles/volume] in Serum or Plasma (test cmql=2456-2) 26 mmol/L 21-32 Glucose [Mass/volume] in Serum or Plasma (test rnms=0928-7) 91 mg/dL 74-106 Urea nitrogen [Mass/volume] in Serum or Plasma (test bzma=4202-7) 21 mg/dL 7-18 Creatinine [Mass/volume] in Serum or Plasma (test elxp=3246-2) 1.42 mg/dL 0.55-1.3 Glomerular Filtration Rate (test code=GFR) 53 mL =/>90 FOR CHRONIC KIDNEY DISEASE: GFR [...] Calcium [Mass/volume] in Serum or Plasma (test pslk=44135-4) 8.6 mg/dL 8.5-10.1 Primary Language EnglishComplete blood count (CBC) with automated white blood cell (WBC) jbplenhzbhsm7919-03-06 06:04:00* Test Item Value Reference Range Comments White blood cell count (test uatk=XBW9290) 6.9 4.3-10.9 Blood erythrocytes count (number/volume) (test owux=68406-5) 4.53 M/ul 4.33-5.43 Hemoglobin measurement (test utbn=LOA8921) 13.6 g/dL 13.6-17.9 Blood hematocrit (volume fraction) (test jzah=03978-2) 40.4 % 39.6-49.0 MCV (test nira=RHA4097) 89.2 fL 80-100 30.0 MCHC (test code=MCHC) 33.6 g/dL 32.0-36.0 Platelets (test code=PLT) 199 152-406 Red Cell Distribution Width (test code=RDW) 15.5 % 12.1-15.2 Blood platelet mean volume (test grye=70347-7) 6.8 fL 7.6-11.3 Neutrophils % (test code=TEJA%) 69.0 % 41.7-73.7 Lymphocytes/leuk NFr Bld (test cgkk=40212-8) 21.4 % 15.3-44.8 Monocyte percentage (test ygxl=9363-0) 8.5 % 3.3-12.3 Eosinophil % (test hcda=639-8) 0.5 % 0-4.4 Basophil % (test lubu=13193-2) 0.6 % 0-1.3 Absolute neutrophil count (test vkhn=786-6) 4.8 1.8-8.0 Absolute lymphocyte count (test jbxg=06196-8) 1.5 0.7-4.9 Absolute monocyte count (test cvbw=491-3) 0.6 0.1-1.3 Absolute Eosinophils (test code=EOA) 0.0 0-0.5 Absolute Basophils (test code=BASA) 0.0 0-0.5 Primary Language [facility] Metabolic Rmroz5184-92-67 18:58:00* Test Item Value Reference Range Comments Serum or plasma sodium measurement (moles/volume) (test cxwc=2726-7) 140 mmol/L 136-145 Potassium [Moles/volume] in Serum or Plasma (test jfwa=9900-9) 3.4 mmol/L 3.5-5.1 Chloride [Moles/volume] in Serum or Plasma (test njdh=4998-5) 108 mmol/L 98-107 Carbon dioxide, total [Moles/volume] in Serum or Plasma (test lidb=2601-3) 22 mmol/L 21-32 Glucose [Mass/volume] in Serum or Plasma (test lkaf=3725-0) 201 mg/dL 74-106 Urea nitrogen [Mass/volume] in Serum or Plasma (test vtsw=6676-4) 21 mg/dL 7-18 Creatinine [Mass/volume] in Serum or Plasma (test gasq=8128-2) 1.52 mg/dL 0.55-1.3 Glomerular Filtration Rate (test code=GFR) 49 mL =/>90 FOR CHRONIC KIDNEY DISEASE: GFR [...] Calcium [Mass/volume] in Serum or Plasma (test caco=63576-8) 8.6 mg/dL 8.5-10.1 Comment Bed:7 Test Ordered to Rule Out VTE/DVT? NLiver (Hepatic) Function 2018-11-06 18:58:00* Test Item Value Reference Range Comments Aspartate aminotransferase [Enzymatic activity/volume] in Serum or Plasma by With P-5 (test nliu=94081-2) 13 U/L 15-37 Alanine aminotransferase [Enzymatic activity/volume] in Serum or Plasma by With P-5'- (test pnvk=0465-9) 28 U/L 12-78 Alkaline phosphatase [Enzymatic activity/volume] in Serum or Plasma (test wtkh=6884-0) 73 U/L 45-117 Bilirubin.total [Mass/volume] in Serum or Plasma (test ckdq=1547-2) 0.3 mg/dL 0.2-1.0 Bilirubin.direct [Mass/volume] in Serum or Plasma (test yhuo=3789-9) 0.1 mg/dL 0-0.2 Protein [Mass/volume] in Serum or Plasma (test sulo=6341-3) 7.0 g/dL 6.4-8.2 Albumin [Mass/volume] in Serum or Plasma by Bromocresol purple (BCP) dye binding meth (test ywyt=33479-5) 3.8 g/dL 3.4-5.0 Globulin (test code=GLOB) 3.2 g/dL 2.3-3.5 Albumin/Globulin Ratio (test code=A/G) 1.2 1.1-1.8 Comment Bed:7 Test Ordered to Rule Out VTE/DVT? NTroponin I.cardiac [Mass/volume] in Serum or Kxjpbj6367-61-98 18:58:00* Test Item Value Reference Range Comments Troponin I.cardiac [Mass/volume] in Serum or Plasma (test neje=21381-0) <0.02 ng/mL 0.0-0.045 Comment Bed:7 Test Ordered to Rule Out VTE/DVT? NNatriuretic peptide.B prohormone N-Terminal [Mass/volume] in Serum or Wlkhal1627-80-37 18:58:00* Test Item Value Reference Range Comments Natriuretic peptide.B prohormone N-Terminal [Mass/volume] in Serum or Plasma (test xqtj=27177-1) 47 pg/mL <125 Comment Bed:7 Test Ordered to Rule Out VTE/DVT? NMagnesium [Mass/volume] in Serum or Cprrly1106-10-50 18:58:00* Test Item Value Reference Range Comments Magnesium [Mass/volume] in Serum or Plasma (test vqrf=10996-1) 2.0 mg/dL 1.8-2.4 Comment Bed:7 Test Ordered to Rule Out VTE/DVT? NProthrombin time (PT) with international normalized ratio (INR)2018-11-06 18:55:00* Test Item Value Reference Range Comments PT Prothrombin Time (test code=PROTIME) 14.3 s 9.5-12.5 INR in Blood by Coagulation assay (test qkdy=23571-6) 1.22 Monitor pts using INR value (not prothrombin time) INR Coumadin Therapy: Low Range (prophylaxis) 2.0-3.0 High Range (high risk of clot formation) 2.5-3.5 NComplete blood count (CBC) with automated white blood cell (WBC) differential 2018-11-06 18:54:00* Test Item Value Reference Range Comments White blood cell count (test uqud=XEK5999) 7.9 4.3-10.9 Blood erythrocytes count (number/volume) (test ozvo=03718-0) 4.78 M/ul 4.33-5.43 Hemoglobin measurement (test nsuo=QPH9264) 14.0 g/dL 13.6-17.9 Blood hematocrit (volume fraction) (test bnbb=90749-0) 42.7 % 39.6-49.0 MCV (test vmck=GLE8469) 89.4 fL 80-100 29.3 MCHC (test code=MCHC) 32.8 g/dL 32.0-36.0 Platelets (test code=PLT) 218 152-406 Red Cell Distribution Width (test code=RDW) 15.4 % 12.1-15.2 Blood platelet mean volume (test msbx=11165-7) 6.8 fL 7.6-11.3 Neutrophils % (test code=TEJA%) 73.8 % 41.7-73.7 Lymphocytes/leuk NFr Bld (test qukd=36973-1) 19.9 % 15.3-44.8 Monocyte percentage (test qbfd=3479-4) 5.0 % 3.3-12.3 Eosinophil % (test rfnh=210-7) 0.5 % 0-4.4 Basophil % (test edgx=03470-7) 0.8 % 0-1.3 Absolute neutrophil count (test zyak=842-6) 5.8 1.8-8.0 Absolute lymphocyte count (test jzdb=37052-6) 1.6 0.7-4.9 Absolute monocyte count (test umkn=298-7) 0.4 0.1-1.3 Absolute Eosinophils (test code=EOA) 0.0 0-0.5 Absolute Basophils (test code=BASA) 0.1 0-0.5 Chest Single Xqoc1231-92-02 18:26:00[place] [address] [facility] REPORT Name: DAVID SAMUELS Acct Number: [id number] :1970 Age:48 Sex:M Ord Phys: Moi Alegre Unit Number: [id number] [facility]: MADELEINE Status: REG ER ER Exam Date: 11/06/18 EXAM DESCRIPTION: RAD - Chest Single View - 11/06/2018 6:20 pm CLINICAL HISTORY: CHEST PAIN Chest pain. COMPARISON: Chest Single View dated 09/04/2018; Chest Single View dated 09/02/2018 FINDINGS: Portable technique limits examination quality. The lungs are grossly clear. The heart is normal in size. No displaced fractures. IMPRESSION: No acute intrathoracic process suspected. Signed By: Pantera Bliss MD Signed AT: 11/06/18 1826 DRUGS OF ABUSE SCREEN [id number] 16:04:00 * Test Item Value Reference Range Comments URN COCAINE (test code=COCAURN) NEGATIVE NEGATIVE URN CANNABINOIDS (test code=CANNABURN) NEGATIVE NEGATIVE URN AMPHETAMINE (test code=AMPHETURN) NEGATIVE NEGATIVE URN BARBITURATE (test code=BARBITURN) NEGATIVE NEGATIVE URN BENZODIAZEPINE (test code=BENZOURN) POSITIVE NEGATIVE Cut-off value:200 ng/mL URN OPIATES (test code=OPIATURN) POSITIVE NEGATIVE Cut-off value:2000 ng/mL URN PHENCYCLIDINE (PCP) (test code=PHENCURN) NEGATIVE NEGATIVE Cutoffs:Barbiturates 200 ng/mLBenzodiazepines 200 ng/mLTHC Cannabinoids 50 ng/mLOpiates(Morphine) 2000 ng/mLAmphetamine 1000 ng/mLCocaine 300 ng/mLPCP phencyclidine 25 ng/mL Unconfirmed screening results shouldnot be used for non-medical purposes. DRUGS OF ABUSE SCREEN [id number] 15:55:00* Test Item Value Reference Range Comments URN COCAINE (test code=COCAURN) NEGATIVE NEGATIVE URN CANNABINOIDS (test code=CANNABURN) NEGATIVE NEGATIVE URN AMPHETAMINE (test code=AMPHETURN) NEGATIVE NEGATIVE URN BARBITURATE (test code=BARBITURN) NEGATIVE NEGATIVE URN BENZODIAZEPINE (test code=BENZOURN) NEGATIVE URN OPIATES (test code=OPIATURN) NEGATIVE URN PHENCYCLIDINE (PCP) (test code=PHENCURN) NEGATIVE NEGATIVE Cutoffs:Barbiturates 200 ng/mLBenzodiazepines 200 ng/mLTHC Cannabinoids 50 ng/mLOpiates(Morphine) 2000 ng/mLAmphetamine 1000 ng/mLCocaine 300 ng/mLPCP phencyclidine 25 ng/mL Unconfirmed screening results shouldnot be used for non-medical purposes. URINALYSIS [id number] 15:55:00* Test Item Value Reference Range Comments UA COLOR (test code=COLU) YELLOW YEL/STRAW UA APPEARANCE (test code=APPU) CLEAR CLEAR UA GLUCOSE DIPSTICK (test code=DGLUU) 3+ NEGATIVE UA BILIRUBIN DIPSTICK (test code=BILU) NEGATIVE NEGATIVE UA KETONE DIPSTICK (test code=KETU) NEGATIVE NEGATIVE UA SPECIFIC GRAVITY (test code=SGU) 1.039 1.005-1.030 UA BLOOD DIPSTICK (test code=KARLOS) NEGATIVE [...] (test code=SQU) NONE SEEN /HPF NONE SEEN COMPREHENSIVE METABOLIC [id number] 12:44:00* Test Item Value Reference Range Comments SODIUM (test code=NA) 136 mEq/L 134-147 POTASSIUM (test code=K) 4.0 mEq/L 3.4-5.0 CHLORIDE (test code=CL) 106 mEq/L 100-108 CARBON DIOXIDE (test code=CO2) 24 mEq/L 21-33 ANION GAP (test code=GAP) 10 0-20 GLUCOSE (test code=GLU) 169 mg/dL 70-110 BLOOD UREA NITROGEN (test code=BUN) 19 mg/dL 7-18 GLOMERULAR FILTRATION RATE (test code=GFR) 54.3 95-105 Units of measure=ml/min/1.73 m2 CREATININE (test code=CREAT) 1.4 mg/dL 0.6-1.3 TOTAL PROTEIN (test code=PROT) 7.6 g/dL 6.4-8.2 ALBUMIN (test code=ALB) 4.10 g/dL 3.4-5.0 CALCIUM (test code=CA) 9.4 mg/dL 8.0-10.5 BILIRUBIN TOTAL (test code=BILT) 0.30 mg/dL 0.0-1.0 SGOT/AST (test code=AST) 13 IUnit/L 15-37 SGPT/ALT (test code=ALT) 37 IUnit/L 15-65 ALKALINE PHOSPHATASE TOTAL (test code=ALKP) 89 IUnit/L 20-125 [id number] 12:44:00* Test Item Value Reference Range Comments AMYLASE (test code=KENNY) 34 UNITS/L 25-115 COMPREHENSIVE METABOLIC [id number] 12:42:00* Test Item Value Reference Range Comments SODIUM (test code=NA) 136 mEq/L 134-147 POTASSIUM (test code=K) 4.0 mEq/L 3.4-5.0 CHLORIDE (test code=CL) 106 mEq/L 100-108 CARBON DIOXIDE (test code=CO2) 24 mEq/L 21-33 ANION GAP (test code=GAP) 10 0-20 GLUCOSE (test code=GLU) 169 mg/dL 70-110 BLOOD UREA NITROGEN (test code=BUN) 19 mg/dL 7-18 GLOMERULAR FILTRATION RATE (test code=GFR) 54.3 95-105 Units of measure=ml/min/1.73 m2 CREATININE (test code=CREAT) 1.4 mg/dL 0.6-1.3 TOTAL PROTEIN (test code=PROT) g/dL 6.4-8.2 ALBUMIN (test code=ALB) 4.10 g/dL 3.4-5.0 CALCIUM (test code=CA) 9.4 mg/dL 8.0-10.5 BILIRUBIN TOTAL (test code=BILT) mg/dL 0.0-1.0 SGOT/AST (test code=AST) 13 IUnit/L 15-37 SGPT/ALT (test code=ALT) 37 IUnit/L 15-65 ALKALINE PHOSPHATASE TOTAL (test code=ALKP) IUnit/L 20-125 [id number] 12:42:00* Test Item Value Reference Range Comments AMYLASE (test code=KENNY) 34 UNITS/L 25-115 CBC W/AUTO [id number] 12:30:00* Test Item Value Reference Range Comments WHITE BLOOD CELL (test code=WBC) 10.48 x10 3/uL 4.5-11.0 RED BLOOD CELL (test code=RBC) 5.23 x10 6/uL 4.00-5.60 HEMOGLOBIN (test code=HGB) 15.3 g/dL 12.5-16.9 HEMATOCRIT (test code=HCT) 48.3 % 37.5-50.7 MEAN CELL VOLUME (test code=MCV) 92.4 fL 81.0-99.0 MEAN CELL HGB (test code=MCH) 29.3 pg 27.0-33.0 MEAN CELL HGB CONCETRATION (test code=MCHC) 31.7 g/dL 33.0-37.0 RED CELL DISTRIBUTION WIDTH CV (test code=RDW) 14.0 % 11.5-14.5 RED CELL DISTRIBUTION WIDTH SD (test code=RDW-SD) 47.9 fL 37.0-54.0 PLATELET COUNT (test code=PLT) 289 x10 3/uL 150-400 MEAN PLATELET VOLUME (test code=MPV) 8.3 fL 7.0-9.0 NEUTROPHIL % (test code=NT%) 71.7 % 56.0-77.0 IMMATURE GRANULOCYTE % (test code=IG%) 0.7 % 0.0-2.0 LYMPHOCYTE % (test code=LY%) 20.6 % 14.0-32.0 MONOCYTE % (test code=MO%) 5.6 % 4.8-9.0 EOSINOPHIL % (test code=EO%) 0.7 % 0.3-3.7 BASOPHIL % (test code=BA%) 0.7 % 0.0-2.0 NUCLEATED RBC % (test code=NRBC%) 0.0 % 0-0 NEUTROPHIL # (test code=NT#) 7.52 x10 3/uL 2.0-7.6 IMMATURE GRANULOCYTE # (test code=IG#) 0.07 x10 3/uL 0.00-0.03 LYMPHOCYTE # (test code=LY#) 2.16 x10 3/uL 1.0-3.8 MONOCYTE # (test code=MO#) 0.59 x10 3/uL 0.1-0.8 EOSINOPHIL # (test code=EO#) 0.07 x10 3/uL 0.0-0.2 BASOPHIL # (test code=BA#) 0.07 x10 3/uL 0.0-0.2 NUCLEATED RBC # (test code=NRBC#) 0.00 x10 3/uL 0.0-0.1 MANUAL DIFF REQUIRED (test code=MDIFF) NO TROPONIN I [id number] 19:13:00* Test Item Value Reference Range Comments TROPONIN I RAPID (test code=TROPIRAP) 0.01 ng/mL 0.00-0.08 - The use of serial sampling and testing protocol is a recommended practice- An elevated troponin level alone is often not sufficient for diagnosis of myocardial infarction. TROPONIN I [id number] 17:57:00* Test Item Value Reference Range Comments TROPONIN I RAPID (test code=TROPIRAP) 0.00 ng/mL 0.00-0.08 - The use of serial sampling and testing protocol is a recommended practice- An elevated troponin level alone is often not sufficient for diagnosis of myocardial infarction. CPK-MB [id number] 17:52:00* Test Item Value Reference Range Comments CREATINE KINASE (CK) (test code=CK) 57 Unit/L 26-192 CKMB (test code=CKMBT) < 1.0 NG/ML 0.0-4.9 RELATIVE % INDEX (test code=REL%) 1.7 % 0.0-2.5 CHEMISTRY 8 [id number] 17:45:00* Test Item Value Reference Range Comments ISTAT-SODIUM (test code=NAP) mmol/L 135-146 ISTAT-POTASSIUM (test code=KP) mmol/L 3.5-4.9 ISTAT-CHLORIDE (test code=CLP) mmol/L 98-109 ISTAT-CARBON DIOXIDE (test code=ISTAT-CO2) mmol/L 24-29 ISTAT CALCIUM IONIZED (test code=ISTAT-ZANE) mmol/L 1.12-1.32 ISTAT-GLUCOSE (test code=GLUP) mg/dL 70-105 ISTAT-BUN (test code=BUNP) mg/dL 8-26 BEDSIDE CREATININE (test code=CREATBED) mg/dL 0.6-1.3 GLOMERULAR FILTRATION RATE POC (test code=GFRBED) 63 63-147 CHEMISTRY 8 [id number] 17:45:00* Test Item Value Reference Range Comments ISTAT-SODIUM (test code=NAP) 137 mmol/L 135-146 ISTAT-POTASSIUM (test code=KP) 4.1 mmol/L 3.5-4.9 ISTAT-CHLORIDE (test code=CLP) 101 mmol/L 98-109 ISTAT-CARBON DIOXIDE (test code=ISTAT-CO2) 24 mmol/L 24-29 ISTAT CALCIUM IONIZED (test code=ISTAT-ZANE) 1.31 mmol/L 1.12-1.32 ISTAT-GLUCOSE (test code=GLUP) 143 mg/dL 70-105 ISTAT-BUN (test code=BUNP) 19 mg/dL 8-26 BEDSIDE CREATININE (test code=CREATBED) 1.3 mg/dL 0.6-1.3 GLOMERULAR FILTRATION RATE POC (test code=GFRBED) 63 63-147 - XR CHEST 1 [id number] 17:42:00 Name: DAVID SAMUELS Formerly [facility] : 1970 Age/S: 48 / M [address] [address] Unit #: [id number] Loc: [place] [address] Phys: Vidhi Rioz MD Acct: [id number] Dis Date: Status: PRE ER PHONE #: [phone] Exam Date: 11/03/2018 1705 FAX #: Reason: chest pain EXAMS: CPT: [id number] XR CHEST 1 V 56503 Fluoro Time: DAP (Gy m2): Air Kerma (mGy): Location code: B2 Chest 1 view Indication: chest pain. Comparison: 2018 Findings: The heart and mediastinum are not remarkable. Costophrenic angles are clear. Lungs are clear. Bone is unremarkable for age. Impression: 1. No radiographic evidence of acute cardiopulmonary disease. at 1742 Reported and signed by: Juan Melgoza M.D. CC: Paula Clay MD; Vidhi Rizo MD PAGE 1 Signed Report Name: DAVID SAMUELS [place] : 1970 Age/S: 48 / M [address] [address] Unit #: [id number] Loc: [place] [address] Phys: Vidhi Rizo MD Acct: [id number] Dis Date: Status: PRE ER PHONE #: [phone] Exam Date: 11/03/2018 1709 FAX #: Reason: chest pain EXAMS: CPT: [id number] XR CHEST 1 V 27773 Fluoro Time: DAP (Gy m2): Air Kerma (mGy): <Continued> Technologist: Bello Olivarez, RT(R)(CT)(MRI) Trnscb Elmo e/Time: 11/03/2018 (174) t.MARKR.DRB1 Orig Print D/T: S: (2389) PAGE 2 Signed Report - XR KNEE 3 V [id number] 17:41:00 Name: DAVID SAMUELS [employer] : 1970 Age/S: 48 / M [address] [address] Unit #: [id number] Loc: [place] [address] Phys: Vidhi Rizo MD Acct: [id number] Dis Date: Status: PRE ER PHONE #: [phone] Exam Date: 11/03/2018 1711 FAX #: Reason: fall EXAMS: CPT: [id number] XR KNEE 3 [place] [address] Fluoro Time: DAP (Gy m2): Air Kerma (mGy): Location code: B2 Left knee 3 views: Indication: fall Comparison: none Findings : No evidence of fracture, subluxation, or dislocation. Joint space is preserved. Articular surfaces are smooth. No evidence of joint effusion. Soft tissues are unremarkable. Impression: 1. Normal exam. at 1741 Reported and signed by: Juan Melgoza M.D. CC: Paula Clay MD; Vidhi Rizo MD PAGE 1 Signed Report Name: DAVID SAMUELS : 1970 Age/S: 48 / M [address] [address] [place] Unit #: [id number] Loc: [place] [address] Phys: Vidhi Rizo MD Acct: [id number] Dis Date: Status: PRE ER PHONE #: [phone] Exam Date: 11/03/2018 2257 FAX #: Reason: fall EXAMS: CPT: [id number] XR KNEE 3 [place] [address] Fluoro Time: DAP (Gy m2): Air Kerma (mGy): <Continued> Technologist: Bello Olivarez, RT(R)(CT)(MRI) Trnscb Elmo e/Time: 11/03/2018 (1740) t.SDR.DRB1 Orig Print D/T: S: (1865) PAGE 2 Signed Report CBC W/O [id number] 17:36:00* Test Item Value Reference Range Comments WHITE BLOOD CELL (test code=WBC) 9.7 K/mm3 3.5-11.0 RED BLOOD CELL (test code=RBC) 4.91 M/mm3 4.70-6.10 HEMOGLOBIN (test code=HGB) 14.5 G/DL 12.3-15.9 HEMATOCRIT (test code=HCT) 43.8 % 35.8-46.7 MEAN CELL VOLUME (test code=MCV) 89.2 Fl 86.3-98.9 MEAN CELL HGB (test code=MCH) 29.5 pg 28.9-34.4 MEAN CELL HGB CONCETRATION (test code=MCHC) 33.1 G/DL 32.1-34.5 RED CELL DISTRIBUTION WIDTH (test code=RDW) 14.9 SD 11.5-14.5 PLATELET COUNT (test code=PLT) 199.0 K/mm3 150-450 MEAN PLATELET VOLUME (test code=MPV) 8.50 fL 7.0-9.6 - CT HEAD/BRAIN W/O [id number] 17:35:00 Name: DAVID SAMUELS : 1970 Age/S: 48 / M [address] [facility] Unit #: [id number] Loc: [place] [address] Phys: Vidhi Rizo MD Acct: [id number] Dis Date: Status: PRE ER PHONE #: [phone] Exam Date: 11/03/2018 1730 FAX #: Reason: fall hit head blood thinners EXAMS: CPT: [id number] CT HEAD/BRAIN W/O CONT 96702 Location code: B2 CT Brain Without Contrast Indication: fall hit head blood thinners Comparison: 09/13/2018. Technical factors: Axial images were obtained from the base of the skull to the vertex. Sagittal and coronal reconstruction. This exam was performed according to our departmental dose-optimization program, which includes automated exposure control, adjustment of the mA and/or kV according to patient size and/or use of iterative reconstruction technique. Findings: Ventricles and sulci are of normal caliber for patient age. No hemorrhage, mass-effect, or abnormal extra-axial fluid collection. No evidence of acute infarct. Calvarium is unremarkable. No confluent otomastoid disease. Orbits are normal in appearance. Paranasal sinuses are clear. Impre ssion 1. Normal non contrast CT scan of the brain. at 1735 Repo rted and signed by: Juan Melgoza M.D. PAGE 1 Signed Report (CONTINUED) Name: DAVID SAMUELS Formerly [facility] : 1970 Age/S: 48 / M [address] [facility] Unit #: [id number] Loc: [place] [address] Phys: Vidhi Rizo MD Acct: [id number] Dis Date: Status: PRE ER PHONE #: [phone] Exam Date: 019 1730 FAX #: Reason: fall hit head blo od thinners EXAMS: CPT: [id number] CT HEAD/BRAIN W/O CONT 7045 0 <Continued> CC: Paula Clay MD; Vidhi Rizo MD Technologist:Alpesh Curiel, RT(R)(CT) CTDI: DLP: Trnscb Date/Time: 11/03/2018 (1738) t.SDR.DRB1 Orig Print D/T: S: 11/03/2018 (3217) CTDI: DLP: PAGE 2 Signed Report KNEE LEFT THREE [id number] 16:05:00 [facility] [address] [place], [place] [address] Patient Name: DAVID SAMUELS MR #: [id number] : 1970 Age/Sex: 48/M Req #: [id number] Adm Physician: Ordered by: PETER CLARK MD Report #: [id number] Location: [facility] Room/Bed: Procedure: [id number] DX/ KNEE LEFT THREE VIEWS Exam Date: 10/20/18 Exam Time: 1400 REPORT STATUS: Signed E xam: Left knee radiographs-3 views History: Left knee pain Comparison: None. Findings: No evidence of acute fracture, malalignment, or soft tissu e abnormality. There are minimal medial and patellofemoral compartment degen erative changes. Impression: No acute radiographic abnormality. 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 Signed by: Dr. Massimo Dietz MD on 10/20/2018 4:06 PM Dictated By: PATRICK DIETZ MD Electronic ally Signed By: PATRICK DIETZ MD on 10/20/18 160 Transcribed By: HARSHA on 10/20 1602 COPY TO: PETER CLARK MD - XR TIBIA/FIBULA 2 V LT 2018-10-04 22:59:00 Name: DAVID SAMUELS [facility] : 1970 Age/S: 48 / M [address] Unit #: [id number] Loc: [place] [address] Phys: Toney Castaneda MD Acct: [id number] Dis Date: Status: REG ER PHONE #: [phone] Exam Date: 10/04/20182253 FAX #: Reason: INJURY EXAMS: CPT: [id number] XR TIBIA/FIBULA 2 [place] [address] Fluoro Time: DAP (Gy m2): Air Kerma (mGy): Left tibia and fibula History: INJURY Comparison: None at this time Location: R16 Four views of the left tibia and fibula are submitted. No acute fractures and no dislocations are identified. The soft tissues are unremarkable. IMPRESSION: Unremarkable exam. at 5394 Reported and signed by: Peter Elizabeth M.D. CC: Paula Clay MD PAGE 1 Signed Report Name: DAVID SAMUELS [employer] : 1970 Age/S: 48 / M [address] Unit #: [id number] Loc: [place] [address] Phys: Toney Castaneda MD Acct: [id number] Dis Date: Status: REG ER PHONE #: [phone] Exam Date: 10/04/20182253 FAX #: Reason: INJURY EXAMS: CPT: [id number] XR TIBIA/FIBULA 2 [place] [address] Fluoro Time: DAP (Gy m2): Air Kerma (mGy): <Continued> Technologist: Nadya Oviedo RT(R)(CT)(MRI) Trnscb Date/Time: 10/04/2018 (2258) t.MARKR.PMT Orig Print D/T: S: 10/04/2018 (2301) PAGE 2 Signed Report - XR T-SPINE 2 [id number] 18:59:00 Name: DAVID SAMUELS [employer] : 1970 Age/S: 48 / M [address] [address] [place] Unit #: [id number] Loc: [place] [address] Phys: Shamika Colorado MD Acct: [id number] Dis Date: Status: REG ER PHONE #: [phone] Exam Date: 10/01/2018 1818 FAX #: Reason: fall EXAMS: CPT: [id number] XR T-SPINE 2 VIEWS 03631 Fluoro Time: DAP (Gy m2): Air Kerma (mGy): REASON FOR EXAM: Fall, back pain. Thoracic spine, 3 views. The lateral projection show good alignment with no evidence of fracture. Cervicothoracic junction intact. Frontal view with a mild degree of levoscoliosis. No structural abnormality or fracture supported. IMPRESSION: No fracture seen. Vertebral bodies and disc spaces preserved. Minimal scoliosis. Location: U19 at 1859 Reported and signed by: Jessica velazquez M.D. CC: Shamika Colorado MD; Paula Clay MD PAGE 1 Signed Report Name: DAVID SAMUELS [place] : 1970 Age/S: 48 / M [id number] [address] Unit #: [id number] Loc: [place] [address] P hys: Shamika Colorado MD Acct: [id number] Dis Date: Status: REG ER PHONE #: [phone] Exam Date: 10/01/2018 1818 F AX #: Reason: fall EXAMS: CPT: [id number] XR T-SPINE 2 VIEWS 63172 Fluoro Time: DAP (Gy m2): Air Kerma (mGy): <Continued> Technologist: Bello Olivarez, RT(R)(CT)(MRI) Trnscb Date/Time: 10/01/2018 (1858) [email or web address] Orig Print D/T: S: 10/01/2018 (1901) PAGE 2 Signed Report - XR HIP BI [id number] 18:45:00 Name: DAVID SAMUELS [place] : 1970 Age/S: 48 / M [id number] [address] Unit #: [id number] Loc: [place] [address] Phys: Shamika Colorado MD Acct: [id number] Dis Date: Status: REG ER PHONE #: [phone] Exam Date: 10/01/20181827 FAX #: Reason: fall EXAMS: CPT: [id number] XR HIP BI W/PELVIS 98887 Fluoro Time: DAP (Gy m2): Air Kerma (mGy): EXAMINATION: - XR HIP BI W/PELVIS. LOCATION: B2. HISTORY: fall. COMPARISON: Pelvic radiograph dated 08/19/2018. TECHNIQUE: AP and frog-leg views of bilateral hips were obtained. FINDINGS: No acute fracture or dislocation is identified. Mild bilateral femoroacetabular joint space narrowing is present with widening of the femoral necks. Soft tissue structures appear within normal limits. IMPRESSION: No acute osseous abnormality is identified. at 1845 Reported and signed by: Sheela Rosa M.D. CC: Shamika Colorado MD; Paula Clay MD PAGE 1 Signed Report Name: DAVID SAMUELS [place] : 1970 Age/S: 48 / M [id number] [address] [place] Unit #: [id number] Loc: [place] [address] Phys: Shamika Colorado MD Acct: [id number] Dis Date: Status: REG ER PHONE #: [phone] Exam Date: 10/01/20181827 FAX #: Reason: fall EXAMS: CPT: [id number] XR HIP BI W/PELVIS 30841 Fluoro Time: DAP (Gy m2): Air Kerma (mGy): <Continued> Technologist: Bello Olivarez, RT(R)(CT)(MRI) Rustb Date/Time: 10/01/2018 (1844) [email or web address] Orig Print D/T: S: 10/01/2018 (1847) PAGE 2 Signed Report - XR L-SPINE 2/3 [id number] 18:44:00 Name: DAVID SAMUELS [place] : 1970 Age/S: 48 / M [id number] [address] [place] Unit #: [id number] Loc: [place] [address] Phys: Shamika Colorado MD Acct: [id number] Dis Date: Status: REG ER PHONE #: [phone] Exam Date: 10/01/2018 1823 FAX #: Reason: fall EXAMS: CPT: [id number] XR L-SPINE 2/3 VIEWS 50941 Fluoro Time: DAP (Gy m2): Air Kerma (mGy): EXAM: Lumbar spine 3 views. HISTORY: Back pain R 16 COMPARISON: None available. FINDINGS:AP, lateral and cone-down lateral views of the lumbar spine were obtained. Lumbar spine demonstrates normal alignment. There are 5 nonrib- bearing lumbar vertebral bodies. Vertebral body heights and intervertebral disc spaces are maintained. There is no acute fracture or subluxation. Visualized soft tissues are unremarkable. IMPRESS ION:Unremarkable radiographic evaluation of the lumbar spine. Electr onically Signed by Callie Martino on 10/01/2018 at 1844 Reported and signed by: Michael Martino M.D. CC: Linda Colorado MD; Paula Clay MD PAGE 1 Signed Report Name: DAVID SAMUELS [facility] : 1970 Age/S: 48 / M [address] Unit #: [id number] Loc: [place] [address] Phys: Shamika Colorado MD Acct: [id number] Dis Date: Status: REG ER PHONE #: [phone] Exam Date: 019 1823 FAX #: Reason: fall EXAMS: CPT: [id number] XR L-SPINE 2/3 VIEWS 70193 Fluoro Time: DAP (Gy m2): Air Kerma (mGy): <Continued> Technologist: Bello Olivarez, RT(R)(CT)(MRI) Trnscb Date/Time: 10/01/2018 (184) [email or web address] Orig Print D/T: S: 10/01/2018 (045) PAGE 2 Signed Report CHEST SINGLE (PORTABLE)2018-09-20 15:27:[address] [address] Patient Name: DAVID SAMUELS MR #: [id number] : 1970 Age/Sex: 48/M Req #: [id number] Adm Physician: Ordered by: BEATRIS DELONG MD Report #: [id number] Location: ER Room/Bed: Procedure: [id number] DX/CHEST SINGLE (PORTABLE) Exam Date: Exam Time: REPORT STATUS: Signed EXAMINATIO N: CHEST SINGLE (PORTABLE) INDICATION: Chest pain. COMPARISON: Chest radiograph 05/27/18. FINDINGS: TUBES and LINES: None. LUNGS: Lungs are well inflated. Lungs are clear. There is no evidence of pneumonia or pulmonary edema. PLEURA: No pleural effusion or pneumothorax. HEART AND MEDIASTINUM: The cardiomediastinal silhouette is unremarkable. BONES AND SOFT TISSUES: No acute osseous lesion. Soft tissues are u nremarkable. UPPER ABDOMEN: No free air under the diaphragm. IMPRE SSION: No acute radiographic abnormality. Signed by: Dr. Patrick Dietz MD on 09/20/2018 3:29 PM Dictated By: PATRICK DIETZ MD 152 Transcribed By: HARSHA on 09/20/181528 COPY TO: BEATRIS DELONG MD COMPREHENSIVE METABOLIC [id number] 17:42:00* Test Item Value Reference Range Comments SODIUM [...] code=ALKP) 78 Unit/L 50-136 Completed by Nursing: [id number] 17:42:00* Test Item Value Reference Range Comments TROPONIN-I (test code=TROPI) < 0.015 NG/ML 0.000-0.045 Negative: </=0.045 Positive: >/=0.046 Correlation with serial results, other cardiac markers, and clinical findings is necessary to determine the clinical significance of this result. Quantitative results using different methodologies should not be compared to one another as numerical results may varyby method. Completed by Nursing: [facility] [id number] 17:41:00* Test Item Value Reference Range Comments [...] (test code=ALKP) Unit/L 50-136 Completed by Nursing: [id number] 17:41:00* Test Item Value Reference Range Comments TROPONIN-I (test code=TROPI) NG/ML 0.000-0.045 Completed by Nursing: NOCBC W/AUTO [id number] 17:34:00* Test Item Value Reference Range Comments [...] NO DIFF/SCN CRITERIA - XR CHEST 1 [id number] 17:12:00 Name: DAVID SAMUELS [facility] : 1970 Age/S: 48 / M [address] Unit #: [id number] Loc: [place] [address] Phys: Ben Griggs MD Acct: [id number] Dis Date: Status: REG ER PHONE #: [phone] Exam Date: 2018 1710 FAX #: Reason: chest pain EXAMS: CPT: [id number] XR CHEST 1 V 17051 Fluoro Time: DAP (Gy m2): Air Kerma [...] PAGE 1 Signed Report Name: DAVID SAMUELS [facility] : 1970 Age/S: 48 / M [address] Unit #: [id number] Loc: [place] [address] Phys: Ben Griggs MD Acct: [id number] Dis Date: Status: REG ER PHONE #: [phone] Exam Date: 2018 1710 FAX #: Reason: chest pain EXAMS: CPT: [id number] XR CHEST 1 V 26069 Fluoro Time: DAP (Gy m2): Air Kerma (mGy): <Continued> Technologist: Lele Zaldivar, RT(R)(CT) Trnscb Date/Time: 2018 (8382) ZhaneT Orig Print D/T: S: 2018 (1493) PAGE 2 Signed Report B-TYPE NATRIURETIC [id number] 02:05:00* Test Item Value Reference Range Comments B-TYPE NATRIURETIC PEPTIDE (test code=BNP) 16.2 PG/ML 0-100 URINALYSIS [id number] 01:58:00* Test Item Value Reference Range Comments [...] TRACE /LPF NONE SEEN COMMENTS: Clean CatchPROTHROMBIN [id number] 01:42:00* Test Item Value Reference Range Comments [...] Infarction (to prevent recurrent infarct). THROMBOPLASTIN TIME [id number] 01:42:00* Test Item Value Reference Range Comments THROMBOPLASTIN TIME PARTIAL (test code=PTT) 35.2 Seconds 25.0-39.5 Therapeutic Range: 61.8-83.8 Sec Effective 09/07/2013 CBC W/AUTO [id number] 01:41:00* Test Item Value Reference Range Comments [...] MANUAL DIFF REQUIRED (test code=MDIFF) NO TROPONIN-I [id number] 01:24:00* Test Item Value Reference Range Comments TROPONIN-I RAPID (test code=TROPIRAP) 0.00 ng/mL 0.00-0.08 Performed by certified high speed printer operator at [facility] Global Task Force with joint leadership from the EuropeanSociety of Cardiology (ESC), the [place] [employer] Foundation (ACCF), the [place] Heart Association(AHA) and the World Heart Federation (WHF) refined past criteria of myocardial infarction (DE) with a universal definition of myocardial infarction that supports the use of cTnI as a preferred biomarker for myocardial injury. The universal definition of DE, according to this taskforce, is defined as [...] temporal changes in troponin levels characteristic of DE. CHEMISTRY 8 [id number] 01:17:00* Test Item Value Reference Range Comments ISTAT-SODIUM (test code=NAP) MMOL/L 134-147 ISTAT-POTASSIUM (test code=KP) MMOL/L 3.4-5.0 ISTAT-CHLORIDE (test code=CLP) MMOL/L 100-108 ISTAT CARBON DIOXIDE (test code=ISTAT-CO2) mmol/L 21-33 ISTAT CALCIUM IONIZED (test code=ISTAT-ZANE) MG/DL 1.12-1.32 ISTAT-GLUCOSE (test code=GLUP) MG/DL 70-110 ISTAT-BUN (test code=BUNP) MG/DL 7-18 BEDSIDE CREATININE (test code=CREATBED) MG/DL 0.6-1.3 GLOMERULAR FILTRATION RATE POC (test code=GFRBED) 77 ML/MIN CHEMISTRY 8 [id number] 01:17:00* Test Item Value Reference Range Comments ISTAT-SODIUM (test code=NAP) 134 MMOL/L 134-147 ISTAT-POTASSIUM (test code=KP) 4.4 MMOL/L 3.4-5.0 ISTAT-CHLORIDE (test code=CLP) 100 MMOL/L 100-108 Performed by certified high speed printer operator at [facility] ISTAT CARBON DIOXIDE (test code=ISTAT-CO2) 23.0 mmol/L 21-33 ISTAT CALCIUM IONIZED (test code=ISTAT-ZANE) 1.23 MG/DL 1.12-1.32 ISTAT-GLUCOSE (test code=GLUP) 342 MG/DL 70-110 ISTAT-BUN (test code=BUNP) 14 MG/DL 7-18 BEDSIDE CREATININE (test code=CREATBED) 1.1 MG/DL 0.6-1.3 GLOMERULAR FILTRATION RATE POC (test code=GFRBED) 77 ML/MIN - CT L-SPINE W/O [id number] 21:58:00 Name: DAVID SAMUELS [facility] [place] : 1970 Age/S: 47 / M [address] [place] [address] Unit #: [id number] Loc: [place] [address] Phys: Eric Zheng MD Acct: [id number] Dis Date: Status: REG ER PHONE #: [phone] Exam Date: 09/13/20182128 FAX #: [phone] Reason: fall on plavix EXAMS: CPT CODE: [id number] CT L-SPINE W/O CONTRAST 19682 Clinical Indication: fall on Plavix; Comparison: CT lumbar spine September 08, 2018 TECHNIQUE: Sequential trans-axial images were obtained of the lumbar spine with a multi- detector helical CT. Coronal and sagittal reconstructions reconstructions [...] or dislocation of the lumbar spine. SL: [id number] at 2158 Reported and signed by: Eddie Saenz M.D. CC: Eric Zheng MD; Paula Clay MD T echnologist:Yessenia Valerio, RT(R) CTDI: DLP: Trnscb Date /Time: 09/13/2018 (2157) KushalLNV Orig Print D/T: S: 11/2018 (2201) CTDI: DLP: PAGE 1 Signed Report - CT C-SPINE W/O [id number] 21:56:00 Name: DAVID SAMUELS [facility] [place] : 1970 Age/S: 47 / M [address] [place] [address] Unit #: [id number] Loc: [place] [address] Phys: Eric Zheng MD Acct: [id number] Dis Date: Status: REG ER PHONE #: [phone] Exam Date: 09/13/20182128 FAX #: [phone] Reason: fall on plavix EXAMS: CPT CODE: [id number] CT C-SPINE W/O CONT 80781 Clinical Indication: fall on Plavix; Comparison: CT [...] 1 Signed Report (CONTINUED) Name: DAVID SAMUELS [facility] : 1970 Age/S: 47 / M [address] [place] [address] Unit #: [id number] Loc: [place] [address] Phys: Eric Zheng MD Acct: [id number] Dis Date: Status: REG ER PHONE #: [phone] Exam Date: 09/13/20182128 FAX #: [phone] Reason: fall on plavix EXAMS: CPT CODE: [id number] CT C-SPINE W/O CONT 11098 <Continued> CT myelogram or MRI of the cervical spine may be performed, if there is further concern. IMPRESSION: 1. Unremarkable noncontrast head CT with no mass, hemorrhage or subacute stroke. 2. No acute fracture or dislocation of the cervical spine. SL: [id number] at 2156 Reported and signed by: Eddie Saenz M.D. CC: Eric Zheng MD; Paula Clay MD Technologist:RT John(R) CTDI: DLP: Trnscb Date/Time: 09/13/2018 (2155) [email or web address] Orig Print D/T: S: 09/13/2018 (2158) CTDI: DLP: PAGE 2 Signed Report - CT HEAD/BRAIN W/O CONT 2018-09-13 21:56:00 Name: DAVID SAMUELS [facility] : 1970 Age/S: 47 / M [address] [place] [address] Unit #: [id number] Loc: [place] [address] Phys: Eric Zheng MD Acct: [id number] Dis Date: Status: REG ER PHONE #: [phone] Exam Date: 09/13/20182128 FAX #: [phone] Reason: fall on plavix EXAMS: CPT CODE: [id number] CT HEAD/BRAIN W/O CONT 65140 Clinical Indication: fall on Plavix; Comparison: CT [...] 1 Signed Report (CONTINUED) Name: DAVID SAMUELS [facility] : 1970 Age/S: 47 / M [address] [place] [address] Unit #: [id number] Loc: [place] [address] Phys: Eric Zheng MD Acct: [id number] Dis Date: Status: REG ER PHONE #: [phone] Exam Date: 09/13/20182128 FAX #: [phone] Reason: fall on plavix EXAMS: CPT CODE: [id number] CT HEAD/BRAIN W/O CONT 75540 <Continued> CT myelogram or MRI of the cervical spine may be performed, if there is further concern. IMPRESSION: 1. Unremarkable noncontrast head CT with no mass, hemorrhage or subacute stroke. 2. No acute fracture or dislocation of the cervical spine. SL: [id number] at 2156 Reported and signed by: Eddie Saenz M.D. CC: Eric Zheng MD; Paula Clay MD Technologist:Yessenia Valerio, RT(R) CTDI: DLP: Trnscb Date/Time: 09/13/2018 (2155) KushalLNV Orig Print D/T: S: 09/13/2018 (2158) CTDI: DLP: PAGE 2 Signed Report - XR CHEST 1 [id number] 21:29:00 FAX: Eric Morse MD [phone] [place]: St: REG FAX: Paula Pagan MD [phone] Name: DAVID SAMUELS [facility] : 1970 Age/S: 47/M [address] [place], [place] [address] Unit #: [id number] Loc: [place] [address] Phys: Eric Zheng MD Acct: [id number] Dis Date: Status: REG ER PHONE #: [phone] Exam Date: 09/13/20182124 FAX #: [phone] Reason: Syncope EXAMS: CPT CODE: [id number] XR CHEST 1 V 22991 Clinical Indication: Syncope Comparison: Chest x-ray September 06, 2018 FINDINGS: The frontal chest radiograph shows normal lung volumes without interstitial or airspace opacities, pleural effusions or pneumothorax. The heart is normal in size. The trachea is midline. There are no clinically significant osseous abn ormalities noted. IMPRESSION: No chest radiographic jah dence of acute cardiopulmonary disease. SL: [id number] at 2128 Reported and signed by: Eddie Saenz M.D. CC: Eric Zheng MD; Paula Clay MD Technologist: Kamla Gaspar RT(R)(M) Trnscrd Date/Time/By: 9 (2128) : By: Pat.LNV Orig Print D/T: S: 09/13/2018 (2131) PAGE 1 Signed Report - CT L-SPINE W/O [id number] 19:26:00 Name: DAVID SAMUELS [facility] : 1970 Age/S: 47 / M [address] [place] [address] Unit #: [id number] Loc: [place] [address] Phys: Jace Lan MD Acct: [id number] Dis Date: Status: REG ER PHONE #: [phone] Exam Date: 09/08/2018 1854 FAX #: [phone] Reason: pain - s/p syncopal episode EXAMS: CPT CODE: [id number] CT L-SPINE W/O CONTRAST [address] WITHOUT CONTRAST WITH MULTIPLANAR REFORMATS 09/08/2018 AT 1904 HOURS. CLINICAL HISTORY: Pain. Syncopal episode. COMPARISON STUDIES: Visualized lumbosacral spine in the abdomen CT from 08/13/2018. ADMINISTERED CONTRAST: None. DLP: 1810.46 mGy-cm FINDINGS: Contiguous 2.5 mm axial images of the lumbosacral spine were obtained without IV con trast. The acquired data was used to create sagittal and coronal reformatt ed images. There is satisfactory alignment of the lumbar vertebra l bodies without signs of fracture or subluxation. No vertebral collapse o r retropulsion. No perching of the articular facets. Broad-based 2 mm posterior central and bilateral paracentral disc bulges are noted at L 4-L5 and L5-S1 with no spinal canal or foraminal stenosis. No acute retro peritoneal findings. Minimal punctate nonobstructive right nephrolithiasi s. Urine distended bladder, partially imaged, without filling defects or diverticula along the visualized segments. IMPRESSION: 1 . No signs of lumbosacral spine fracture or dislocation. 2. Broad-based 2 mm posterior disc bulges at L4-L5 and L5-S1. No spinal canal or forami nal stenosis. 3. Urine distended bladder, partially imaged. Large bladd er capacity versus urinary retention. Correlate with history. ____ CT imaging performed at this location utilizes radiation do se optimization techniques which include one or more of the following: -Automated exposure control -Adjustment of the mA and/or kV accor ding to patient size -Use of iterative reconstruction technique SL: ER-H at 1926 Reported and signed by: Omi Anthony M.D. PAGE 1 Signed Report (CONTINUED) Name: DAVID DUQUE [facility] : [birth year] Age/S: 47 / M [address] [place] [address] Unit #: [id number] Loc: [place] [address] Phys: Jace Lan MD Acct: [id number] Dis Date: Status: REG ER PHONE #: Exam Date: 09/08/20181853 FAX #: [phone] Reason: pain - s/p syncopal episode EXAMS: CPT CODE: [id number] CT L-SPINE W/O CONTRAS T 59016 <Continued> CC: Paula Clay MD; Jace Lan MD Technologist:RT Kavon(R) CTDI: DLP: Trnscb Date/Time: 09/08/2018 (1925) [email or web address] Orig Print D/T: S: 09/08/2018 (1928) CTDI: DLP: PAGE 2 Signed Report - CT HEAD/BRAIN W/O CONT 2018-09-08 19:22:00 Name: DAVID SAMUELS [facility] : 1970 Age/S: 47 / M [address] [place], [place] [address]vd Unit #: [id number] Loc: [place] [address] Phys: Jace Lan MD Acct: [id number] Dis Date: Status: REG ER PHONE #: [phone] Exam Date: 09/08/20181853 FAX #: [phone] Reason: pain - s/p syncopal episode EXAMS: CPT CODE: [id number] CT HEAD/BRAIN W/O CONT [address] HEAD, UNENHANCED CT CERVICAL SPINE INDICATION: Syncope and fall. Head and neck pain. TECHNIQUE: Unenhanced CT was performed from the skull vertex to the foramen magnum with axial, coronal and sagittal reconstructions. Radiation dose length product 420 mGy-cm. Unenhanced CT was performed of the cervical spine with axial, coronal and sagittal reconstructions. Radiation dose length product 341 mGy-cm. COMPARISONS: CT head 08/31/2018. CT cervical spine 08/31/2018. FINDINGS: CT HEAD: The paranasal sinuses are clear as visualized. The mastoid air cells and middle ears appear clear as visualized. There is no acute depressed skull fracture. The cerebral ventricles are normal caliber. There is mild generalized brain parenchymal volume loss. There is no cerebral mass effect, midline shift, intracranial hemorrhage or acute large vessel territory cerebral cortical edema. CT CERVICAL SPINE: There is no acute cervical spine fracture [...] 1 Signed Report (CONTINUED) Name: DAVID SAMUELS [facility] [place] : 1970 Age/S: 47 / M [address] [place] [address] d Unit #: [id number] Loc: [place] [address] Phys: Jace Lan MD Acct: [id number] Dis Date: Status: REG ER PHONE #: [phone] Exam Date: 09/08/2018 0497 FAX #: [phone] Reason: pain - s/p syncopal episode EXAMS: CPT CODE: [id number] HEAD/BRAIN W/O CONT 69290 < Continued> at 1922 Reported and signed by: Moi Jaramillo D.O. CC: Paula Clay MD; Jace Lan MD Technologist:Jossie Berry, RT(R) CTDI: DLP: Trnscb Date/Time: 09/08/2018 (1921) [email or web address] Orig Print D/T: S: 09/08/2018 (1924) CTDI: DLP: PAGE 2 Signed Report - CT C-SPINE W/O [id number] 19:22:00 Name: DAVID SAMUELS [facility] : 1970 Age/S: 47 / M [address] [place] [address] Blvd Unit #: [id number] Loc: [place] [address] Phys: Jace Lan MD Acct: [id number] Dis Date: Status: REG ER PHONE #: [phone] Exam Date: 09/08/2018 185 FAX #: [phone] Reason: pain - s/p syncopal episode EXAMS: CPT CODE: [id number] CT C-SPINE W/O CONT [address] HEAD, UNENHANCED CT CERVICAL SPINE INDICATION: Syncope and fall. Head and neck pain. TECHNIQUE: Unenhanced CT was performed from the skull vertex to the foramen magnum with axial, coronal and sagittal reconstructions. Radiation dose length product 420 mGy-cm. Unenhanced CT was performed of the cervical spine with axial, coronal and sagittal reconstructions. Radiation dose length product 341 mGy-cm. COMPARISONS: CT head 08/31/2018. CT cervical spine 08/31/2018. FINDINGS: CT HEAD: The paranasal sinuses are clear as visualized. The mastoid air cells and middle ears appear clear as visualized. There is no acute depressed skull fracture. The cerebral ventricles are normal caliber. There is mild generalized brain parenchymal volume loss. There is no cerebral mass effect, midline shift, intracranial hemorrhage or acute large vessel territory cerebral cortical edema. CT CERVICAL SPINE: There is no acute cervical spine fracture [...] 1 Signed Report (CONTINUED) Name: DAVID SAMUELS : 1970 Age/S: 47 / M [address] [place] [address] Blv d Unit #: [id number] Loc: [place] [address] Phys: Jace Lan MD Acct: [id number] Dis Date: Status: REG ER PHONE #: [phone] Exam Date: 09/08/2018 1853 FAX #: [phone] Reason: pain - s/p syncopal episode EXAMS: CPT CODE: [id number] C-SPINE W/O CONT 80789 < Continued> at 192 Reported and signed by: Moi Jaramillo D.O. CC: Paula Clay MD; Jace Lan MD Technologist:RT Kavon(R) CTDI: DLP: Trnscb Date/Time: 09/08/2018 (1921) [email or web address] Orig Print D/T: S: 09/08/2018 (1924) CTDI: DLP: PAGE 2 Signed Report COMPREHENSIVE METABOLIC PANEL 2018-09-08 18:56:00* Test Item Value Reference Range Comments [...] PHOSPHATASE TOTAL (test code=ALKP) 83 IUnit/L 20-125 [id number] 18:56:00* Test Item Value Reference Range Comments TROPONIN-I (test code=TROPI) < 0.015 ng/mL 0.000-0.045 Negative: <=0.045 Positive: >=0.046 Correlation with serial results, other cardiac markers andclinical findings is necessary to determine the clinicalsignificance of this result. Results using different methodologies should not be comparedto one another as quantitative results may vary by method. [id number] 18:56:00* Test Item Value Reference Range Comments ALCOHOL (test code=ALC) < 0.003 G/dL <0.003 Ethyl Alcohol Interpretation: 0.100 gm/dL - Legally Intoxicated 0.300-0.400 gm/dL - Severely Intoxicated >0.400 gm/dL - Potentially LethalResults are for Medical purposes only, and not for Legal orEmployment evaluation purposes. PROTHROMBIN [id number] 18:42:00* Test Item Value Reference Range Comments [...] Infarction (to prevent recurrent infarct). CBC W/AUTO [id number] 18:19:00* Test Item Value Reference Range Comments [...] DIFF REQUIRED (test code=MDIFF) NO GLUCOSE BEDSIDE [id number] 16:31:00* Test Item Value Reference Range Comments GLUCOSE BEDSIDE TESTING (test code=GLUBED) 331 mg/dL 70-110 GLUCOSE BEDSIDE [id number] 12:02:00* Test Item Value Reference Range Comments GLUCOSE BEDSIDE TESTING (test code=GLUBED) 221 mg/dL 70-110 GLUCOSE BEDSIDE [id number] 07:44:00* Test Item Value Reference Range Comments GLUCOSE BEDSIDE TESTING (test code=GLUBED) 193 mg/dL 70-110 CPK-MB [id number] 05:46:00* Test Item Value Reference Range Comments CREATINE KINASE (CK) (test code=CK) 44 Unit/L 26-192 CKMB (test code=CKMBT) < 1.0 NG/ML 0.0-4.9 RELATIVE % INDEX (test code=REL%) 2.2 % 0.0-2.5 Completed by Nursing: [id number] 05:46:00* Test Item Value Reference Range Comments TROPONIN-I (test code=TROPI) < 0.015 NG/ML 0.000-0.045 Negative: </=0.045 Positive: >/=0.046 Correlation with serial results, other cardiac markers, and clinical findings is necessary to determine the clinical significance of this result. Quantitative results using different methodologies should not be compared to one another as numerical results may varyby method. Completed by Nursing: NOCPK-MB [id number] 02:03:00* Test Item Value Reference Range Comments CREATINE KINASE (CK) (test code=CK) 38 Unit/L 26-192 CKMB (test code=CKMBT) < 1.0 NG/ML 0.0-4.9 RELATIVE % INDEX (test code=REL%) 2.6 % 0.0-2.5 Completed by Nursing: [id number] 02:03:00* Test Item Value Reference Range Comments TROPONIN-I (test code=TROPI) < 0.015 NG/ML 0.000-0.045 Negative: </=0.045 Positive: >/=0.046 Correlation with serial results, other cardiac markers, and clinical findings is necessary to determine the clinical significance of this result. Quantitative results using different methodologies should not be compared to one another as numerical results may varyby method. Completed by Nursing: NOURINALYSIS [id number] 00:36:00* Test Item Value Reference Range Comments [...] (test code=LEUU) NEGATIVE Leuk/mcL NEGATIVE HEPATIC FUNCTION [id number] 21:42:00* Test Item Value Reference Range Comments TOTAL PROTEIN (test code=PROT) 7.3 G/DL 6.4-8.2 ALBUMIN (test code=ALB) 3.6 G/DL 3.4-5.0 BILIRUBIN TOTAL (test code=BILT) 0.30 MG/DL 0.2-1.2 BILIRUBIN DIRECT (test code=BILD) < 0.10 MG/DL 0.00-0.30 BILIRUBIN INDIRECT (test code=BILIND) 0.20 MG/DL 0.2-1.2 SGOT/AST (test code=AST) 23 Unit/L 15-37 SGPT/ALT (test code=ALT) 41 Unit/L 12-78 ALKALINE PHOSPHATASE TOTAL (test code=ALKP) 81 Unit/L 50-136 [id number] 21:42:00* Test Item Value Reference Range Comments LIPASE (test code=LIP) 157 Unit/L 114-286 NT PRO-BRAIN NATRIURETIC [id number] 21:42:00* Test Item Value Reference Range Comments NT PRO-BRAIN NATRIURETIC PEPTI (test code=PROBNP) 83 PG/ML 0-100 CPK-MB [id number] 21:42:00* Test Item Value Reference Range Comments CREATINE KINASE (CK) (test code=CK) 51 Unit/L 26-192 CKMB (test code=CKMBT) < 1.0 NG/ML 0.0-4.9 RELATIVE % INDEX (test code=REL%) 1.9 % 0.0-2.5 - XR CHEST 1 [id number] 21:36:00 Name: DAVID SAMUELS [facility] : 1970 Age/S: 47 / M [address] Unit #: [id number] Loc: [place] [address] Phys: Toney Castaneda MD Acct: [id number] Dis Date: Status: REG ER PHONE #: [phone] Exam Date: 09/06/20182120 FAX #: Reason: chest pain EXAMS: CPT: [id number] XR CHEST 1 V 29910 Fluoro Time: DAP (Gy m2): Air Kerma (mGy): EXAM: - XR CHEST 1 V LOCATION: C3 HISTORY: chest pain COMPARISON: 08/31/2018 FINDINGS: Single view of the chest. No indwelling lines or tubes. No pneumothorax. The lungs are clear. No pleural effusions are present. The mediastinal contours are unremarkable. No acute osseous findings are present. IMPRESSION: No acute cardiopulmonary abnormality. at 2136 Reported and signed by: JOSE HERRERA M.D. CC: Paula Clay MD PAGE 1 Signed Report Name: DAVID SAMUELS [facility] : 1970 Age/S: 47 / M [address] Unit #: [id number] Loc: [place] [address] Phys: Toney Castaneda MD Acct: [id number] Dis Date: Status: REG ER PHONE #: [phone] Exam Date: 09/06/20182120 FAX #: Reason: chest pain EXAMS: CPT: [id number] XR CHEST 1 V 81571 Fluoro Time: DAP (Gy m2): Air Kerma (mGy): <Continued> Technologist: Alpesh Curiel RT(R)(CT) Trnscb Date/Time: 09/06/2018 (2135) KushalHV2 Orig Print D/T: S: 09/06/2018 (2139) PAGE 2 Signed Report TROPONIN I ROUWK1309-36-29 21:33:00* Test Item Value Reference Range Comments TROPONIN I RAPID (test code=TROPIRAP) 0.00 ng/mL 0.00-0.08 - The use of serial sampling and testing protocol is a recommended practice- An elevated troponin level alone is often not sufficient for diagnosis of myocardial infarction. CHEMISTRY 8 ZYNIHAA9472-84-34 21:26:00* Test Item Value Reference Range Comments ISTAT-SODIUM (test code=NAP) mmol/L 135-146 ISTAT-POTASSIUM (test code=KP) mmol/L 3.5-4.9 ISTAT-CHLORIDE (test code=CLP) mmol/L 98-109 ISTAT-CARBON DIOXIDE (test code=ISTAT-CO2) mmol/L 24-29 ISTAT CALCIUM IONIZED (test code=ISTAT-ZANE) mmol/L 1.12-1.32 ISTAT-GLUCOSE (test code=GLUP) mg/dL 70-105 ISTAT-BUN (test code=BUNP) mg/dL 8-26 BEDSIDE CREATININE (test code=CREATBED) mg/dL 0.6-1.3 GLOMERULAR FILTRATION RATE POC (test code=GFRBED) 69 63-147 CHEMISTRY 8 UETANMO7500-73-64 21:26:00* Test Item Value Reference Range Comments [...] POC (test code=GFRBED) 69 63-147 CBC W/O ESHZ1191-67-87 21:25:00* Test Item Value Reference Range Comments [...] (test code=MPV) 8.20 fL 7.0-9.6 Basic Metabolic Mgojs3759-05-65 20:33:00* Test Item Value Reference Range Comments Serum or plasma sodium measurement (moles/volume) (test subu=3758-7) 136 mmol/L 136-145 Potassium [Moles/volume] in Serum or Plasma (test efpv=8411-4) 3.7 mmol/L 3.5-5.1 Chloride [Moles/volume] in Serum or Plasma (test qsum=5897-9) 99 mmol/L 98-107 Carbon dioxide, total [Moles/volume] in Serum or Plasma (test shkl=1087-2) 29 mmol/L 21-32 Glucose [Mass/volume] in Serum or Plasma (test woaw=4087-2) 263 mg/dL 74-106 Urea nitrogen [Mass/volume] in Serum or Plasma (test psxr=9936-6) 8 mg/dL 7-18 Creatinine [Mass/volume] in Serum or Plasma (test bntm=5520-7) 1.26 mg/dL 0.55-1.3 Glomerular Filtration Rate (test [...] Calcium [Mass/volume] in Serum or Plasma (test kagx=65656-3) 8.8 mg/dL 8.5-10.1 Comment Bed:6 Test Ordered to Rule Out VTE/DVT? NLiver (Hepatic) Function 2018-09-04 20:33:00* Test Item Value Reference Range Comments Aspartate aminotransferase [Enzymatic activity/volume] in Serum or Plasma by With P-5 (test bkbh=12196-5) 21 U/L 15-37 Alanine aminotransferase [Enzymatic activity/volume] in Serum or Plasma by With P-5'- (test xtov=0608-6) 35 U/L 12-78 Alkaline phosphatase [Enzymatic activity/volume] in Serum or Plasma (test lkxl=7728-7) 87 U/L 45-117 Bilirubin.total [Mass/volume] in Serum or Plasma (test dkgf=1498-4) 0.4 mg/dL 0.2-1.0 Bilirubin.direct [Mass/volume] in Serum or Plasma (test jlfp=4609-8) 0.1 mg/dL 0-0.2 Protein [Mass/volume] in Serum or Plasma (test lrqp=6926-0) 6.9 g/dL 6.4-8.2 Albumin [Mass/volume] in Serum or Plasma by Bromocresol purple (BCP) dye binding meth (test wrye=15337-2) 3.6 g/dL 3.4-5.0 Globulin (test code=GLOB) 3.3 g/dL 2.3-3.5 Albumin/Globulin Ratio (test code=A/G) 1.1 1.1-1.8 Comment Bed:6 Test Ordered to Rule Out VTE/DVT? NTroponin I.cardiac [Mass/volume] in Serum or Sfhbhf1259-61-38 20:33:00* Test Item Value Reference Range Comments Troponin I.cardiac [Mass/volume] in Serum or Plasma (test ckvb=81522-2) <0.02 ng/mL 0.0-0.045 Comment Bed:6 Test Ordered to Rule Out VTE/DVT? NNatriuretic peptide.B prohormone N-Terminal [Mass/volume] in Serum or Zepvaj2953-32-07 20:33:00* Test Item Value Reference Range Comments Natriuretic peptide.B prohormone N-Terminal [Mass/volume] in Serum or Plasma (test rkzt=39757-6) 115 pg/mL <125 Comment Bed:6 Test Ordered to Rule Out VTE/DVT? NMagnesium [Mass/volume] in Serum or Yghyvv6257-03-59 20:33:00* Test Item Value Reference Range Comments Magnesium [Mass/volume] in Serum or Plasma (test ijvx=40694-1) 2.1 mg/dL 1.8-2.4 Comment Bed:6 Test Ordered to Rule Out VTE/DVT? NProthrombin time (PT) with international normalized ratio (INR)2018-09-04 20:06:00* Test Item Value Reference Range Comments PT Prothrombin Time (test code=PROTIME) 11.0 s 9.5-12.5 INR in Blood by Coagulation assay (test uhvg=15829-4) 0.93 Monitor pts using INR value (not prothrombin time) INR Coumadin Therapy: Low Range (prophylaxis) 2.0-3.0 High Range (high risk of clot formation) 2.5-3.5 NComplete blood count (CBC) with automated white blood cell (WBC) differential 2018-09-04 19:59:00* Test Item Value Reference Range Comments White blood cell count (test rpfo=VCC0862) 4.9 4.3-10.9 Blood erythrocytes count (number/volume) (test gmwf=16999-7) 4.13 M/ul 4.33-5.43 Hemoglobin measurement (test fzry=FQY1826) 12.3 g/dL 13.6-17.9 Blood hematocrit (volume fraction) (test zmjb=67947-6) 36.7 % 39.6-49.0 MCV (test dhuz=JXD4142) 88.7 fL 80-100 29.8 MCHC (test code=MCHC) 33.6 g/dL 32.0-36.0 Platelets (test code=PLT) 175 152-406 Red Cell Distribution Width (test code=RDW) 15.7 % 12.1-15.2 Blood platelet mean volume (test wiwo=93622-2) 6.8 fL 7.6-11.3 Neutrophils % (test code=TEJA%) 67.9 % 41.7-73.7 Lymphocytes/leuk NFr Bld (test kncu=43713-1) 21.7 % 15.3-44.8 Monocyte percentage (test gpto=7432-8) 8.4 % 3.3-12.3 Eosinophil % (test ctls=042-5) 1.4 % 0-4.4 Basophil % (test kdhv=47522-8) 0.6 % 0-1.3 Absolute neutrophil count (test twhz=229-0) 3.3 1.8-8.0 Absolute lymphocyte count (test zwss=27936-2) 1.1 0.7-4.9 Absolute monocyte count (test pchs=115-0) 0.4 0.1-1.3 Absolute Eosinophils (test code=EOA) 0.1 0-0.5 Absolute Basophils (test code=BASA) 0.0 0-0.5 Chest Single Zeet3102-91-95 19:09:00[place] [address] [facility] REPORT Name: DAVID SAMUELS Acct Number: [id number] :1970 Age:47 Sex:M Ord Phys: Igor Valdivia Unit Number: [id number] [facility] [address]: NONE Status: REG ER ER [...] By: Jose Castillo MD Signed AT: 09/04/181909 [place] mafcr0312-27-04 08:25:00Comment Bed:7 Test Ordered to Rule Out VTE/DVT? N<10,000 CFU/ML.^<10,000 CFU/ML.^LUrine culture 2018-09-04 08:25:00* Test Item Value Reference Range Comments Urine culture (test avcm=513-9) MIXED MEREDITH. Comment Bed:7 Test Ordered to Rule Out VTE/DVT? NGlucose blood fingerstick 2018-09-03 08:26:00* Test Item Value Reference Range Comments Glucose blood fingerstick (test qyaz=SOM9154) 190 mg/dL 65-120 Hemoglobin A1c/Hemoglobin.total in Xwcku7315-66-53 05:37:00* Test Item Value Reference Range Comments Hemoglobin A1c/Hemoglobin.total in Blood (test uibi=2290-2) 9.5 % 4.2-6.3 Primary Language EnglishMagnesium [Mass/volume] in Serum or Wphnal3927-81-74 05:03:00* Test Item Value Reference Range Comments Magnesium [Mass/volume] in Serum or Plasma (test mvnj=04217-4) 1.7 mg/dL 1.8-2.4 Glucose blood dbbdvhqkygi0531-47-01 23:33:00* Test Item Value Reference Range Comments Glucose blood fingerstick (test ajiw=CLZ7595) 241 mg/dL 65-120 Troponin I.cardiac [Mass/volume] in Serum or Pwffxl3261-62-99 19:34:00* Test Item Value Reference Range Comments Troponin I.cardiac [Mass/volume] in Serum or Plasma (test tjfc=08432-3) <0.02 ng/mL 0.0-0.045 Primary Language EnglishGlucose blood glordghqddq5514-39-75 17:23:00* Test Item Value Reference Range Comments Glucose blood fingerstick (test vwae=RVA5081) 331 mg/dL 65-120 Basic Metabolic Zqlhv9004-51-65 16:19:00* Test Item Value Reference Range Comments Serum or plasma sodium measurement (moles/volume) (test qxzm=6863-9) 138 mmol/L 136-145 Potassium [Moles/volume] in Serum or Plasma (test noie=9185-5) 4.4 mmol/L 3.5-5.1 Chloride [Moles/volume] in Serum or Plasma (test oimn=3546-0) 103 mmol/L 98-107 Carbon dioxide, total [Moles/volume] in Serum or Plasma (test vswi=7489-0) 26 mmol/L 21-32 Glucose [Mass/volume] in Serum or Plasma (test nvuh=2769-1) 292 mg/dL 74-106 Urea nitrogen [Mass/volume] in Serum or Plasma (test ajbo=0472-4) 11 mg/dL 7-18 Creatinine [Mass/volume] in Serum or Plasma (test chvv=5515-5) 1.32 mg/dL 0.55-1.3 Glomerular Filtration Rate (test [...] Calcium [Mass/volume] in Serum or Plasma (test xstu=78566-0) 8.5 mg/dL 8.5-10.1 Primary Language EnglishTroponin I.cardiac [Mass/volume] in Serum or Plasma 2018-09-02 13:00:00* Test Item Value Reference Range Comments Troponin I.cardiac [Mass/volume] in Serum or Plasma (test psdw=35489-5) <0.02 ng/mL 0.0-0.045 Primary Language EnglishGlucose blood cxgdgbmmosc6451-24-38 11:41:00* Test Item Value Reference Range Comments Glucose blood fingerstick (test pnio=YGG0989) 304 mg/dL 65-120 Carotid Artery Ruwwdhrzk9591-73-86 11:29:00[facility] [place] [address] [facility] REPORT Name: ARVINDDAVID SAMANTHA Acct Number: [id number] :1970 Age:47 Sex:M Ord Phys: Sorin Pool MD Unit Number: [id number] [facility] Dr: NONE Status: ADM IN Exam Date: 09/02/18 EXAM DESCRIPTION: US - CP - 09/02/2018 11:20 am CLINICAL HISTORY: syncope [...] Signed AT: 0 09/02/18 1130 Glucose blood yzfrtrmrtkh3322-80-87 09:12:00* Test Item Value Reference Range Comments Glucose blood fingerstick (test zmtr=CHD1956) 318 mg/dL 65-120 Angio Aorta For Iwgysrgjoq4611-10-74 08:34:00[facility] [place] [address] [facility] REPORT Name: DAVID SAMUELS Acct Number: [id number] :1970 Age:47 Sex:M Ord Phys: Judson Liao MD Unit Number: [id number] [facility] Dr: NONE Status: ADM IN Exam Date: [...] emergent chest abdomen or pelvis findings. [place] findings detailed in the body of the report. Signed By: Jose Castillo MD Signed AT: 09/02/18 0835 Head Brain Wo Tjsw3700-12-02 07:27:00[place] [address] [facility] REPORT Name: DAVID SAMUELS Acct Number: [id number] :1970 Age:47 Sex:M Ord Phys: Judson Liao MD Unit Number: [id number] [facility] Dr: NONE Status: ADM IN [address] [place] [address]-A Exam Date: 09/01/18 EXAM DESCRIPTION: CT - [...] MD Signed AT: 09/02/18 0728 Chest Single Swzl6719-46-55 06:41:00[facility] [place] [address] [facility] REPORT Name: DAVID SAMUELS Acct Number: [id number] :1970 Age:47 Sex:M Ord Phys: Judson Liao MD Unit Number: [id number] [facility]: NONE Status: ADM IN Exam Date: 09/01/18 EXAM DESCRIPTIO N: RAD [...] Signed AT: 09/02/18 0641 Hemoglobin A1c/Hemoglobin.total in Btrvf7885-18-00 06:09:00* Test Item Value Reference Range Comments Hemoglobin A1c/Hemoglobin.total in Blood (test yxhe=1975-7) 9.3 % 4.2-6.3 Primary Language EnglishGlucose blood qzantysdxgp5879-35-68 05:29:00* Test Item Value Reference Range Comments Glucose blood fingerstick (test hbpf=AJN4858) 212 mg/dL 65-120 Troponin I.cardiac [Mass/volume] in Serum or Idiecc8505-16-95 04:54:00* Test Item Value Reference Range Comments Troponin I.cardiac [Mass/volume] in Serum or Plasma (test hrkd=71543-0) <0.02 ng/mL 0.0-0.045 Primary Language EnglishBasic Metabolic Zuvja6573-43-74 01:08:00* Test Item Value Reference Range Comments Serum or plasma sodium measurement (moles/volume) (test wrkh=0356-0) 134 mmol/L 136-145 Potassium [Moles/volume] in Serum or Plasma (test wxxh=1752-7) 4.2 mmol/L 3.5-5.1 Chloride [Moles/volume] in Serum or Plasma (test duff=9742-3) 99 mmol/L 98-107 Carbon dioxide, total [Moles/volume] in Serum or Plasma (test jwot=5785-3) 24 mmol/L 21-32 Glucose [Mass/volume] in Serum or Plasma (test pbzn=0862-2) 414 mg/dL 74-106 Repeated & Called to MICHAEL MASON RN on 09/02/18 at 0108 by ROHINICH1 Was there 100% Readback? Y Urea nitrogen [Mass/volume] in Serum or Plasma (test vraj=4753-0) 12 mg/dL 7-18 Creatinine [Mass/volume] in Serum or Plasma (test zjlw=8673-5) 1.65 mg/dL 0.55-1.3 Glomerular Filtration Rate (test [...] Calcium [Mass/volume] in Serum or Plasma (test zkcx=46465-3) 9.0 mg/dL 8.5-10.1 Test Ordered to Rule Out VTE/DVT? N Test Ordered to Rule Out VTE/DVT? NLiver (Hepatic) Sdcvcany0466-76-28 01:08:00* Test Item Value Reference Range Comments Aspartate aminotransferase [Enzymatic activity/volume] in Serum or Plasma by With P-5 (test unxj=44002-0) 17 U/L 15-37 Alanine aminotransferase [Enzymatic activity/volume] in Serum or Plasma by With P-5'- (test ugju=9174-2) 31 U/L 12-78 Alkaline phosphatase [Enzymatic activity/volume] in Serum or Plasma (test gldk=8623-8) 86 U/L 45-117 Bilirubin.total [Mass/volume] in Serum or Plasma (test oatw=2281-9) 0.4 mg/dL 0.2-1.0 Bilirubin.direct [Mass/volume] in Serum or Plasma (test fhyl=6698-2) 0.1 mg/dL 0-0.2 Protein [Mass/volume] in Serum or Plasma (test ujns=9644-7) 6.8 g/dL 6.4-8.2 Albumin [Mass/volume] in Serum or Plasma by Bromocresol purple (BCP) dye binding meth (test awrq=55459-4) 3.5 g/dL 3.4-5.0 Globulin (test code=GLOB) 3.3 g/dL 2.3-3.5 Albumin/Globulin Ratio (test code=A/G) 1.1 1.1-1.8 Test Ordered to Rule Out VTE/DVT? N Test Ordered to Rule Out VTE/DVT? NTroponin I.cardiac [Mass/volume] in Serum or Ntbdmd9298-76-47 01:08:00* Test Item Value Reference Range Comments Troponin I.cardiac [Mass/volume] in Serum or Plasma (test mhaf=79551-5) <0.02 ng/mL 0.0-0.045 Test Ordered to Rule Out VTE/DVT? N Test Ordered to Rule Out VTE/DVT? N Natriuretic peptide.B prohormone N-Terminal [Mass/volume] in Serum or Plasma 2018-09-02 01:08:00* Test Item Value Reference Range Comments Natriuretic peptide.B prohormone N-Terminal [Mass/volume] in Serum or Plasma (test aenh=08618-2) 23 pg/mL <125 Test Ordered to Rule Out VTE/DVT? N Test Ordered to Rule Out VTE/DVT? NMagnesium [Mass/volume] in Serum or Krujfj3053-15-97 01:08:00* Test Item Value Reference Range Comments Magnesium [Mass/volume] in Serum or Plasma (test cvzf=96211-6) 1.6 mg/dL 1.8-2.4 Test Ordered to Rule Out VTE/DVT? N Test Ordered to Rule Out VTE/DVT? NLipase [Enzymatic activity/volume] in Serum or Elmxma7518-55-44 01:08:00* Test Item Value Reference Range Comments Lipase [Enzymatic activity/volume] in Serum or Plasma (test rkus=9361-6) 108 U/L 73-393 Test Ordered to Rule Out VTE/DVT? N Test Ordered to Rule Out VTE/DVT? N Prothrombin time (PT) with international normalized ratio (INR)2018-09-02 00:43:00* Test Item Value Reference Range Comments PT Prothrombin Time (test code=PROTIME) 10.9 s 9.5-12.5 INR in Blood by Coagulation assay (test mzwe=65984-6) 0.92 Monitor pts using INR value (not prothrombin time) INR Coumadin Therapy: Low Range (prophylaxis) 2.0-3.0 High Range (high risk of clot formation) 2.5-3.5 NUrine dipstick testing at iowtm-pn-vcnp4990-01-24 00:38:00* Test Item Value Reference Range Comments Urine specific gravity measurement (test gngn=3423-4) 1.010 1.005-1.030 Urine glucose detection (test cxzo=3302-1) 2+ NEG Urine Ketones (test code=UKET) NEGATIVE NEG Urine blood detection (test hqxt=37275-1) Negative NEG Urine pH (test htae=0941-2) 6.5 5.0-7.0 Urinalysis with microscopy (test mccs=44851-2) NEGATIVE NEG Urine Nitrate (test code=UNIT) NEGATIVE NEG Urine Leukocyte Esterase (test code=UESTR) NEGATIVE NEG Comment Bed:7 aa NEG 2+ NEG NEG NEG 6.5 NEG Y 1.010Complete blood count (CBC) with automated white blood cell (WBC) azzoqvkkzxqn9759-27-90 00:36:00* Test Item Value Reference Range Comments White blood cell count (test ogac=FRE3672) 8.0 4.3-10.9 Blood erythrocytes count (number/volume) (test jobs=52208-0) 4.23 M/ul 4.33-5.43 Hemoglobin measurement (test rtje=ADS2214) 12.5 g/dL 13.6-17.9 Blood hematocrit (volume fraction) (test wcuf=17979-0) 37.4 % 39.6-49.0 MCV (test mokb=RJT7304) 88.4 fL 80-100 29.6 MCHC (test code=MCHC) 33.5 g/dL 32.0-36.0 Platelets (test code=PLT) 187 152-406 Red Cell Distribution Width (test code=RDW) 16.0 % 12.1-15.2 Blood platelet mean volume (test nyqc=83382-4) 7.2 fL 7.6-11.3 Neutrophils % (test code=TEJA%) 73.1 % 41.7-73.7 Lymphocytes/leuk NFr Bld (test gxdt=74355-7) 19.4 % 15.3-44.8 Monocyte percentage (test quqb=2146-1) 5.8 % 3.3-12.3 Eosinophil % (test dtmh=195-0) 0.9 % 0-4.4 Basophil % (test emzk=89592-9) 0.8 % 0-1.3 Absolute neutrophil count (test gwqk=441-7) 5.8 1.8-8.0 Absolute lymphocyte count (test zeew=11859-0) 1.5 0.7-4.9 Absolute monocyte count (test hkvm=615-1) 0.5 0.1-1.3 Absolute Eosinophils (test code=EOA) 0.1 0-0.5 Absolute Basophils (test code=BASA) 0.1 0-0.5 Arterial blood gas pbejqcvkyif2848-11-27 00:25:00* Test Item Value Reference Range Comments Blood gas pH assay (test hcvz=80914-7) 7.41 7.35-7.45 Blood partial pressure of carbon dioxide measurement (test indw=38171-4) 38.3 mm[Hg] 35-45 Blood partial pressure of oxygen measurement (test ukrd=66360-7) 77.5 mm[Hg] 75-100 Blood Gas HCO3 (test code=ABGHCO3) 23.7 mmol/L 22-28 Blood base excess determination (test rkps=5067-5) -0.3 mmol/L Arterial blood oxygen saturation measurement (test ydug=3714-0) 95.6 % 92-98.5 Arterial blood fractional oxyhemoglobin (test uumc=9632-1) 93.2 % 94-97 Arterial blood carboxyhemoglobin measurement (test smhw=9406-6) 1.5 % 0-1.5 Blood Gas Methemoglobin (test code=ABGMETHB) 1.0 % 0-1.5 Blood Gas THB (test code=ABGTHB) 12.3 g/dL 12-18 Blood Gas Inspired Oxygen (test code=ABGFIO2) 21.0 % Repeated & Called to dr. liao on 09/02/18 at 0025 by MALENA Was there 100% Readback? y Comment Bed:7 on room air. + /id/allens test. l-radial. felipe crtBASIC METABOLIC FDYYV4549-67-95 23:21:00* Test Item Value Reference Range Comments [...] 0.6-1.3 CALCIUM (test code=CA) 8.8 mg/dL 8.0-10.5 EKOHMUFC-Z4621-24-22 23:21:00* Test Item Value Reference Range Comments TROPONIN-I (test code=TROPI) < 0.015 ng/mL 0.000-0.045 Negative: <=0.045 Positive: >=0.046 Correlation with serial results, other cardiac markers andclinical findings is necessary to determine the clinicalsignificance of this result. Results using different methodologies should not be comparedto one another as quantitative results may vary by method. YNBGTKC5726-48-04 23:21:00* Test Item Value Reference Range Comments ALCOHOL (test code=ALC) < 0.003 G/dL <0.003 Ethyl Alcohol Interpretation: 0.100 gm/dL - Legally Intoxicated 0.300-0.400 gm/dL - Severely Intoxicated >0.400 gm/dL - Potentially LethalResults are for Medical purposes only, and not for Legal orEmployment evaluation purposes. C-ZDPMW0670-80YYAEQ5134-78-87 23:16:00* Test Item Value Reference Range Comments D-DIMER (test code=DDIMER) < 215 ng/mlFEU <=500 THROMBOSIS AND/OR PULMONARY EMBOLISM AND THE CLINICAL CUT- OFF VALUE FOR EXCLUSION (500 ng/mL FEU) OF THESE CONDITIONSIS VALIDATED BY THE [employer] SUPERVISOR OF THE METHOD. A NEGATIVE D-DIMER RESULT WHEN COMBINED WITH A CLINICALASSESSMENT OF LOW PRETEST PROBABILITY HAS BEEN SHOWN TO HAVEA HIGH NEGATIVE PREDICTIVE VALUE OF DVT OR PE. D-DIMER VALUES >500 ng/mL FEU ARE NOT DIAGNOSTIC FOR DVT, PEor DIC WITHOUT OTHER CONFIRMATORY TESTS AND APPROPRIATECLINICAL EUALUATIONS. CBC W/AUTO AFOZ1742-02-54 23:04:00* Test Item Value Reference Range Comments [...] (test code=MDIFF) NO - XR CHEST 1 [id number] 22:47:00 FAX: Paula Pagan MD [phone] [place]: St: [facility] FAX: Medardo Berman MD Name: DAVID SAMUELS [facility] : 1970 Age/S: 47/M [address] [place] [address] Unit #: [id number] Loc: [place] [address] Phys: Medardo Berman MD Acct: [id number] Dis Date: Status: REG ER PHONE #: [phone] Exam Date: 08/31/20184 FAX #: [phone] Reason: CHEST PAIN EXAMS: CPT CODE: [id number] XR CHEST 1 V 23937 Clinical Indication: CHEST PAIN Comparison: Chest x-ray August 29, 2018 FINDINGS: The patient is rotated to the right. The frontal chest radiograph shows normal lung volumes without interstitial or airspace opacities, pleural effusions or pneumothorax. The heart is normal in size. The trachea is midline. There are no clinically significant osseous abnormalities noted. IMPRESSION: No chest radiographic evidence of acute cardiopulmonary disease. SL: [id number] at 2247 Reported and signed by: Eddie Saenz M.D. CC: Paula Clay MD; Medardo Berman MD Technologist: RT Nadya(R) Trnscrd Date/Time/By: 08/31/2018 (8863) : By: KushalLNV Orig Print D/T: S: 08/31/2018 (5904) PAGE 1 Signed Report - CT C-SPINE W/O [id number] 22:36:00 Name: ADVID SAMUELS [facility] : 1970 Age/S: 47 / M [address] [place] [address] Unit #: [id number] Loc: [place] [address] Phys: Medardo Berman MD Acct: [id number] Dis Date: Status: REG ER PHONE #: [phone] Exam Date: 08/31/20182215 FAX #: [phone] Reason: NECK PAIN EXAMS: CPT CODE: [id number] CT C-SPINE W/O CONT 63425 Clinical Indication: NECK PAIN; Comparison: CT cervical [...] or subluxation of the cervical spine. SL: [id number] at 2236 Reported and signed by: Eddie Saenz M.D. CC: Paula Clay MD; Medardo Berman MD Technologist:Iris Boyd, RT(R) CTDI: DLP: Trnscb Date/Time: 08/31/2018 (2236) t.SDR.LNV Orig Print D/T: S: 08/31/2018 (5684) CTDI: DLP: PAGE 1 Signed Report - CT HEAD/BRAIN W/O CONT 2018-08-31 22:35:00 Name: DAVID SAMUELS [facility] : 1970 Age/S: 47 / M [address] [place] [address] Unit #: [id number] Loc: [place] [address] Phys: Medardo Berman MD Acct: [id number] Dis Date: Status: REG ER PHONE #: [phone] Exam Date: 08/31/20182215 FAX #: [phone] Reason: HEADACHE EXAMS: CPT CODE: [id number] CT HEAD/BRAIN W/O CONT 58654 CT HEAD WITHOUT CONTRAST INDICATION: Acute headache [...] limited study. No acute intracranial findings. SL: SG-H at 2235 Reported and signed by: Alfred Gongora M.D. CC: Paula Clay MD; Medardo Berman MD Technologist:Iris Boyd RT(R) CTDI: DLP: Trnscb Date/Time: 08/31/2018 (2234) FlaviaR.SG9 Orig Print D/T: S: 08/31/2018 (2237) CTDI: DLP: PAGE 1 Signed Report RULE OUT DE PROFILE 2018-08-31 12:26:00* Test Item Value Reference [...] numerical results may varyby method. GLUCOSE BEDSIDE DEBAFZD6511-17-94 11:46:00* Test Item Value Reference Range Comments GLUCOSE BEDSIDE TESTING (test code=GLUBED) 233 mg/dL 70-110 GLUCOSE BEDSIDE WXRDWKK6453-18-61 08:12:00* Test Item Value Reference Range Comments GLUCOSE BEDSIDE TESTING (test code=GLUBED) 245 mg/dL 70-110 GLUCOSE BEDSIDE PRRUUPT5697-11-76 21:38:00* Test Item Value Reference Range Comments GLUCOSE BEDSIDE TESTING (test code=GLUBED) 198 mg/dL 70-110 - CT HEAD/BRAIN W/O [id number] 18:42:00 Name: DAVID SAMUELS [facility] : 1970 Age/S: 47 / M [address] [place] Unit #: [id number] Loc: [place] [address] Phys: Charlie Brandt MD Acct: [id number] Dis Date: Status: ADM IN PHONE #: [phone] Exam Date: 08/30/2018 3580 FAX #: Reason: to R/o CVA EXAMS: CPT: [id number] CT HEAD/BRAIN W/O CONT 82272 EXAM: - CT HEAD/BRAIN W/O CONT Location [...] 1 Signed Report (CONTINUED) Name: DAVID SAMUELS [facility] : 1970 Age/S: 47 / M [address] [facility] Unit #: [id number] Loc: [place] [address] Phys: Charlie Brandt MD Acct: [id number] Dis Date: Status: ADM IN PHONE #: [phone] Exam Date: 2018 183 FAX #: Reason: to R/o CVA EXAMS: CPT: [id number] CT HEAD/BRAIN W/O CONT 704 50 <Continued> CC: Paula Clay MD; Charlie Brandt MD Technologist:Shawn Saavedra, RT(R)(CT); .. CTDI: DLP: Trnscb Date/Time: 08/30/2018 (184) [email or web address] Orig Print D/T: S: 08/30/2018 (1846) CTDI: DLP: PAGE 2 Signed Report GLUCOSE BEDSIDE [id number] 17:50:00* Test Item Value Reference Range Comments GLUCOSE BEDSIDE TESTING (test code=GLUBED) 148 mg/dL 70-110 GLUCOSE BEDSIDE [id number] 16:39:00* Test Item Value Reference Range Comments GLUCOSE BEDSIDE TESTING (test code=GLUBED) 168 mg/dL 70-110 - DUP EXTRACRANIAL [id number] 16:03:00 Name: DAVID [facility] : 1970 Age/S: 47 / M [address] [address] [facility] Unit #: [id number] Loc: [place] [address] Phys: Ana Alvarez TOP SPOTTER Acct: [id number] Dis Date: Status: ADM IN PHONE #: [phone] Exam Date: 08/30/2018 1408 FAX #: Reason: SYNCOPE EXAMS: CPT: [id number] DUP EXTRACRANIAL YAS [id number] R16 CAROTID DUPLEX ULTRASOUND HISTORY: SYNCOPE TECHNIQUE: [...] 1 Signed Report (CONTINUED) Name: DAVID SAMUEL[facility] : 1970 Age/S: 47 / M [address] [address] [facility] [place] Unit #: [id number] Loc: [place] [address] Phys: Ana Alvarez [employer] SP[employer]TER Acct: [id number] Dis Date: Status: ADM IN PHONE #: [phone] Exam Date: 08/30/2018 1406 FAX #: Reason: SYNCOPE EXAMS: CPT: [id number] DUP EXTRACRANIAL YAS 42522 < Continued> CC: Paula Clay MD; Charlie Brandt MD; Ana Alvarez NP Technologist: Silva Ortiz Trnscb Date/Time: 08/30/2018 (9453) [email or web address] PAGE 2 Signed Report Name: DAVID SAMUELS [facility] [employer] : 1970 Age/S: 47 / M [address] [address] [facility] [place] Unit #: [id number] Loc: [place] [address] Phys: Ana Alvarez NP Acct: [id number] Dis Date: Status: ADM IN PHONE #: [phone] Exam Date: 08/30/2018 1406 FAX #: Reason: SYNCOPE EXAMS: CPT: [id number] DUP EXTRACRANIAL YAS 37864 < Continued> Orig Print D/T: S: 08/30/2018 (1488) Probe: PAGE 3 Signed Report LIPID PROFILE [...] code=LDL/HDL) 1.97 Ratio 1.48-3.22 Avg THYROID STIMULATING [id number] 11:56:00* Test Item Value Reference Range Comments THYROID STIMULATING HORMONE (test code=TSH) 2.500 mcIU/ML 0.340-4.820 GLUCOSE BEDSIDE [id number] 11:36:00* Test Item Value Reference Range Comments GLUCOSE BEDSIDE TESTING (test code=GLUBED) 260 mg/dL 70-110 GLUCOSE BEDSIDE [id number] 07:50:00* Test Item Value Reference Range Comments GLUCOSE BEDSIDE TESTING (test code=GLUBED) 334 mg/dL 70-110 BASIC METABOLIC [id number] 06:20:00* Test Item Value Reference Range Comments [...] (test code=CA) 8.6 MG/DL 8.5-10.1 CBC W/AUTO [id number] 06:04:00* Test Item Value Reference Range Comments [...] DIFF REQUIRED (test code=MDIFF) NO DIFF/SCN CRITERIA [id number] 00:57:00* Test Item Value Reference Range Comments TROPONIN-I (test code=TROPI) < 0.015 NG/ML 0.000-0.045 Negative: </=0.045 Positive: >/=0.046 Correlation with serial results, other cardiac markers, and clinical findings is necessary to determine the clinical significance of this result. Quantitative results using different methodologies should not be compared to one another as numerical results may varyby method. Completed by Nursing: NOCOMPREHENSIVE METABOLIC [id number] 20:28:00* Test Item Value Reference Range Comments [...] code=ALKP) 78 Unit/L 50-136 Completed by Nursing: [id number] 20:28:00* Test Item Value Reference Range Comments LIPASE (test code=LIP) 137 Unit/L 114-286 Completed by Nursing: [id number] 20:28:00* Test Item Value Reference Range Comments TROPONIN-I (test code=TROPI) < 0.015 NG/ML 0.000-0.045 Negative: </=0.045 Positive: >/=0.046 Correlation with serial results, other cardiac markers, and clinical findings is necessary to determine the clinical significance of this result. Quantitative results using different methodologies should not be compared to one another as numerical results may varyby method. Completed by Nursing: NOCOMPREHENSIVE METABOLIC [id number] 20:23:00* Test Item Value Reference Range Comments [...] (test code=ALKP) Unit/L 50-136 Completed by Nursing: [id number] 20:23:00* Test Item Value Reference Range Comments LIPASE (test code=LIP) 137 Unit/L 114-286 Completed by Nursing: [id number] 20:23:00* Test Item Value Reference Range Comments TROPONIN-I (test code=TROPI) NG/ML 0.000-0.045 Completed by Nursing: NOCOMPREHENSIVE METABOLIC [id number] 20:16:00* Test Item Value Reference Range Comments [...] (test code=ALKP) Unit/L 50-136 Completed by Nursing: [id number] 20:16:00* Test Item Value Reference Range Comments LIPASE (test code=LIP) 137 Unit/L 114-286 Completed by Nursing: [id number] 20:16:00* Test Item Value Reference Range Comments TROPONIN-I (test code=TROPI) NG/ML 0.000-0.045 Completed by Nursing: NOCBC W/AUTO [id number] 20:07:00* Test Item Value Reference Range Comments [...] NO DIFF/SCN CRITERIA - CT HEAD/BRAIN W/O [id number] 19:49:00 Name: DAVID SAMUELS [employer] : 1970 Age/S: 47 / M [address] [place] Unit #: [id number] Loc: [place] [address] Phys: Ben Griggs MD Acct: [id number] Dis Date: Status: REG ER PHONE #: [phone] Exam Date: 08/29/20181929 FAX #: Reason: fall, multiple blood thinners, syncopy EXAMS: CPT: [id number] CT HEAD/BRAIN W/O CONT 72966 C3 TIME OF STUDY: 08/29/2018 7:17 PM [...] 1 Signed Report - XR CHEST 1 [id number] 19:44:00 Name: DAVID SAMUELS [facility] : 1970 Age/S: 47 / M [address] [address] [place] Unit #: [id number] Loc: [place] [address] Phys: Ben Griggs MD Acct: [id number] Dis Date: Status: REG ER PHONE #: [phone] Exam Date: 08/29/20181935 FAX #: Reason: fall, chest pain EXAMS: CPT: [id number] XR CHEST 1 V 97473 Fluoro Time: DAP (Gy m2): Air Kerma [...] PAGE 1 Signed Report Name: DAVID SAMUELS [facility] : 1970 Age/S: 47 / M [address] [address] [place] Unit #: [id number] Loc: [place] [address] Phys: Ben Griggs MD Acct: [id number] Dis Date: Status: REG ER PHONE #: [phone] Exam Date: 08/29/20181935 FAX #: Reason: fall, chest pain EXAMS: CPT: [id number] XR CHEST 1 V 21711 Fluoro Time: DAP (Gy m2): Air Kerma (mGy): <Continued> Technologist: Judy Marte, RT(R)(CT); ... Trnscb Elmo e/Time: 08/29/2018 (1943) KushalMA50 Orig Print D/T: S: (1946) PAGE 2 Signed Report [id number] 21:09:00 * Test Item Value Reference Range Comments GLUBED (test code=GLUBED) 314 MG/DL 70-110 Performed by certified high speed printer operator at [facility] DRUGS OF ABUSE SCREEN [id number] 20:44:00* Test Item Value Reference Range Comments [...] for non-medical purposes. DRUGS OF ABUSE SCREEN [id number] 20:32:00* Test Item Value Reference Range Comments [...] used for non-medical purposes. - XR T-SPINE [id number] 20:20:00 FAX: Paula Pagan MD [phone] [place]: St: REG FAX: Dee Henley NP [phone] Name: DAVID SAMUELS [facility] : 1970 Age/S: 47/M [address] [place] [address] Blvd Unit #: [id number] Loc: [place] [address] Phys: Dee Henley NP Acct: [id number] Dis Date: Status: REG ER PHONE #: [phone] Exam Date: 08/28/2018 183 FAX #: [phone] Reason: BACK PAIN EXAMS: CPT CODE: [id number] XR T-SPINE 3V 14845 PROCEDURE: Thoracic spine series radiographs, 3 views [...] (202 3) PAGE 1 Signed Report URINALYSIS [id number] 20:16:00* Test Item Value Reference Range Comments [...] SEEN COMMENTS: Clean Catch- CT C-SPINE W/O [id number] 19:20:00 Name: DAVID SAMUELS [facility] : 1970 Age/S: 47 / M [address] [place] [address] Unit #: [id number] Loc: [place] [address] Phys: Najma Henley TOP SPOTTER Acct: [id number] Di s Date: Status: REG ER PHONE #: Exam Date: 08/28/2018 190 FAX #: [phone] Reason: NECK PAIN EXAMS: CPT CODE: [id number] CT C-SPINE W/ O CONT 74946 PROCEDURE: CT cerv ical spine without contrast. [...] Paula Clay MD; Dee Henley NP Technologist:Corinne Gross RT(R)(CT) CTDI: DLP: Trnscb D ate/Time: 08/28/2018 (1919) tCHRISTOPHERR.MSR4 Orig Print D/T: S: 08/28/2018 (1922) CTDI: DLP: PAGE 1 Signed Report B-TYPE NATRIURETIC PEPTIDE 2018-08-28 19:16:00* Test Item Value Reference Range Comments B-TYPE NATRIURETIC PEPTIDE (test code=BNP) 22.2 PG/ML 0-100 - CT HEAD/BRAIN W/O [id number] 19:08:00 Name: DAVID SAMUELS [facility] : 1970 Age/S: 47 / M [address] [place] [address] Unit #: [id number] Loc: [place] [address] Phys: Dee Henley NP Acct: [id number] Dis Date: Status: REG ER PHONE #: [phone] Exam Date: 08/28/2018 190 FAX #: [phone] Reason: HEADACHE EXAMS: CPT CODE: [id number] CT HEAD/BRAIN W/O CONT 09854 PROCEDURE: CT head without contrast INDICATION: Headache. [...] No evidence for acute intracranial abnormality. SL: ODBRITTANY-H at 190 Reported and signed by: Vidhi Grayson M.D. CC: Paula Clay MD; Dee Henley NP Technologist:Corinne Gross, RT(R)(CT) CTDI: DLP: Trnscb Date/Time: 08/28/2018 (1907) t.SDR.MSR4 Orig Print D/T: S: 08/28/2018 (1910) CTDI: DLP: PAGE 1 Signed Report - XR WRIST 3 + V [id number] 18:54:00 FAX: Neha Ramírez DO [phone] [place]: St: REG FAX: Paula Pagan MD [phone] FAX: Dee Henley NP [phone] Name: DAVID SAMUELS [facility] : 1970 Age/S: 47/M [address] [place] [address] Blvd Unit #: [id number] Loc: [place] [address] Phys: Dee Henley NP Acct: [id number] Dis Date: Status: REG ER PH ONE #: [phone] Exam Date: 08/28/2018 1839 FAX #: [phone] Reason: fall, wrist pain EXAMS: CPT CODE: [id number] XR WRIST 3 + V RT 66271 Procedure: Rig ht Wrist Radiographs. Clinical Indication: Right wrist pain. Comparison: None. FINDINGS: The 3 views o f the right wrist show dorsal soft tissue swelling. No acute displaced fr acture is identified. IMPRESSION: 1. Soft tissue swelling. SL: WYATT-H at 1854 * * Reported and signed by: Ran Alonso M.D. CC: Neha Clements DO; Paula Clay MD; Dee Henley NP Technologist: Luciano Deleon RT(R) Trnscrd Date/Time/By: 2018 (1853) : By: KushalTDO Orig Print D/T: S: 08/28/2018 (1857) PAGE 1 Signed Report BASIC METABOLIC [id number] 18:52:00* Test Item Value Reference Range Comments [...] CALCIUM (test code=CA) 8.7 mg/dL 8.0-10.5 CPK-MB [id number] 18:52:00* Test Item Value Reference Range Comments [...] MAY CALCULATE TO A FALSELY ELEVATED INDEX. [id number] 18:52:00* Test Item Value Reference Range Comments ALCOHOL (test code=ALC) < 0.003 G/dL <0.003 Ethyl Alcohol Interpretation: 0.100 gm/dL - Legally Intoxicated 0.300-0.400 gm/dL - Severely Intoxicated >0.400 gm/dL - Potentially LethalResults are for Medical purposes only, and not for Legal orEmployment evaluation purposes. PROTHROMBIN [id number] 18:50:00* Test Item Value Reference Range Comments [...] Infarction (to prevent recurrent infarct). THROMBOPLASTIN TIME [id number] 18:50:00* Test Item Value Reference Range Comments THROMBOPLASTIN TIME PARTIAL (test code=PTT) 33.9 Seconds 25.0-39.5 Therapeutic Range: 61.8-83.8 Sec Effective 09/07/2013 - XR L-SPINE 2/3 [id number] 18:49:00 FAX: Paula Pagan MD [phone] [place]: St: REG FAX: Dee Henley NP [phone] Name: DAVID SAMUELS [facility] : 1970 Age/S: 47/M [address] [place] [address] Blvd Unit #: [id number] Loc: [place] [address] Phys: Dee Henley NP Acct: [id number] Dis Date: Status: REG ER PHONE #: [phone] Exam Date: 08/28/2018 183 FAX #: [phone] Reason: BACK PAIN EXAMS: CPT CODE: [id number] XR L-SPINE 2/3 VIEWS 86163 Procedure: Lumbar Spine Radiographs. Clinical Venecia cation: [...] 1 . Unremarkable lumbar spine series. SL: CY-H at 1849 Reported and signed by: Ran Alonso M.D. CC: Paula Clay MD; Mikael Henley NP Technologist: RT Adryan(Lucita) Trnbrenda Date/Time/By: 08/28/2018 (1848) : By: Yvon Orig Print D/T: S: 08/28/2018 (1851) PAGE 1 Signed Report CBC W/AUTO DIFF [...] MANUAL DIFF REQUIRED (test code=MDIFF) NO TROPONIN-I [id number] 18:28:00* Test Item Value Reference Range Comments TROPONIN-I RAPID (test code=TROPIRAP) 0.00 ng/mL 0.00-0.08 Performed by certified high speed printer operator [facility] Global Task Force with joint leadership from the EuropeanSociety of Cardiology (ESC), the [place] [employer] Foundation (ACCF), the [place] Heart Association(AHA) and the World Heart Federation (WHF) refined past criteria of myocardial infarction (DE) with a universal definition of myocardial infarction that supports the use of cTnI as a preferred biomarker for myocardial injury. The universal definition of DE, according to this taskforce, is defined as [...] temporal changes in troponin levels characteristic of DE. POCT-GLUCOSE [id number] 20:05:00* Test Item Value Reference Range Comments POC-GLUCOSE METER (BEAKER) (test fjsh=7974) 186 mg/dL 70-110 TESTED AT [facility] [address] [facility] [address] TROPONIN [id number] 19:45:00* Test Item Value Reference Range Comments TROPONIN I (BEAKER) (test qxgq=684) < ng/mL 0.00-0.03 Troponin I (TnI) levels [...] neurological disease, and per sistent tachyarrhythmia.BASIC METABOLIC [id number] 17:19:00* Test Item Value Reference Range Comments SODIUM (BEAKER) (test oyzp=515) 132 meq/L 136-145 POTASSIUM (BEAKER) (test wegw=523) 3.9 meq/L 3.5-5.1 CHLORIDE (BEAKER) (test sizt=906) 103 meq/L 98-107 CO2 (BEAKER) (test mtts=592) 18 meq/L 22-29 BLOOD UREA NITROGEN (BEAKER) (test wean=125) 11 mg/dL 7-21 CREATININE (BEAKER) (test nvjp=421) 1.25 mg/dL 0.57-1.25 GLUCOSE RANDOM (BEAKER) (test jjvo=098) 355 mg/dL 70-105 CALCIUM (BEAKER) (test zvob=978) 10.3 mg/dL 8.4-10.2 EGFR (BEAKER) (test zfrx=2451) 62 mL/min/1.73 sq m ESTIMATED GFR IS NOT ACCURATE CREATININE CLEARANCE IN PREDICTING GLOMERULAR FILTRATION RATE. ESTIMATED GFR IS NOT APPLICABLE FOR DIALYSIS PATIENTS. CBC W/PLT COUNT & AUTO [id number] 16:59:00* Test Item Value Reference Range Comments WHITE BLOOD CELL COUNT (BEAKER) (test jyuk=216) 6.6 K/ L 3.5-10.5 RED BLOOD CELL COUNT (BEAKER) (test ehii=269) 4.20 M/ L 4.63-6.08 HEMOGLOBIN (BEAKER) (test alml=428) 12.9 GM/DL 13.7-17.5 HEMATOCRIT (BEAKER) (test nhym=771) 37.6 % 40.1-51.0 MEAN CORPUSCULAR VOLUME (BEAKER) (test jpvr=648) 89.5 fL 79.0-92.2 MEAN CORPUSCULAR HEMOGLOBIN (BEAKER) (test bbbi=449) 30.7 pg 25.7-32.2 MEAN CORPUSCULAR HEMOGLOBIN CONC (BEAKER) (test jwqx=315) 34.3 GM/DL 32.3-36.5 RED CELL DISTRIBUTION WIDTH (BEAKER) (test yjzx=429) 13.1 % 11.6-14.4 PLATELET COUNT (BEAKER) (test qbjk=807) 142 K/CU MM 150-450 MEAN PLATELET VOLUME (BEAKER) (test oqez=033) 9.0 fL 9.4-12.4 NUCLEATED RED BLOOD CELLS (BEAKER) (test vvmu=579) 0 /100 WBC 0-0 NEUTROPHILS RELATIVE PERCENT (BEAKER) (test nfcu=726) 74 % LYMPHOCYTES RELATIVE PERCENT (BEAKER) (test unui=350) 18 % MONOCYTES RELATIVE PERCENT (BEAKER) (test nlpi=451) 7 % EOSINOPHILS RELATIVE PERCENT (BEAKER) (test hbcs=430) 1 % BASOPHILS RELATIVE PERCENT (BEAKER) (test bnlt=339) 0 % NEUTROPHILS ABSOLUTE COUNT (BEAKER) (test bdgr=841) 4.92 K/ L 1.78-5.38 LYMPHOCYTES ABSOLUTE COUNT (BEAKER) (test mtoy=592) 1.20 K/ L 1.32-3.57 MONOCYTES ABSOLUTE COUNT (BEAKER) (test nxyz=080) 0.44 K/ L 0.30-0.82 EOSINOPHILS ABSOLUTE COUNT (BEAKER) (test hzhg=946) 0.03 K/ L 0.04-0.54 BASOPHILS ABSOLUTE COUNT (BEAKER) (test fqrc=351) 0.02 K/ L 0.01-0.08 IMMATURE GRANULOCYTES-RELATIVE PERCENT (BEAKER) (test dzqr=9873) 0 % 0-1 KETONE, [id number] 16:58:00* Test Item Value Reference Range Comments KETONES, BLOOD (BEAKER) (test mebr=3730) 0.1 mmol/L <0.4 POCT-GLUCOSE [id number] 16:50:00* Test Item Value Reference Range Comments POC-GLUCOSE METER (BEAKER) (test edho=2425) 337 mg/dL 70-110 TESTED AT [facility] [address] [facility] [address] TROPONIN [id number] 21:45:00* Test Item Value Reference Range Comments TROPONIN I (BEAKER) (test qyij=872) < ng/mL 0.00-0.03 Troponin I (TnI) levels [...] neurological disease, and per sistent tachyarrhythmia.BASIC METABOLIC [id number] 21:36:00* Test Item Value Reference Range Comments SODIUM (BEAKER) (test cynf=474) 132 meq/L 136-145 POTASSIUM (BEAKER) (test oqfw=031) 4.3 meq/L 3.5-5.1 CHLORIDE (BEAKER) (test sfun=998) 103 meq/L 98-107 CO2 (BEAKER) (test hvxp=959) 20 meq/L 22-29 BLOOD UREA NITROGEN (BEAKER) (test dtav=354) 13 mg/dL 7-21 CREATININE (BEAKER) (test zvdo=918) 1.29 mg/dL 0.57-1.25 GLUCOSE RANDOM (BEAKER) (test mnen=848) 279 mg/dL 70-105 CALCIUM (BEAKER) (test tvnb=326) 9.0 mg/dL 8.4-10.2 EGFR (BEAKER) (test wosf=2003) 60 mL/min/1.73 sq m ESTIMATED GFR IS NOT ACCURATE CREATININE CLEARANCE IN PREDICTING GLOMERULAR FILTRATION RATE. ESTIMATED GFR IS NOT APPLICABLE FOR DIALYSIS PATIENTS. PT/[id number] 21:29:00* Test Item Value Reference Range Comments PROTIME (BEAKER) (test adel=927) 12.5 seconds 11.7-14.7 INR (BEAKER) (test xfkx=622) 0.9 <=5.9 PARTIAL THROMBOPLASTIN TIME (BEAKER) (test typv=044) 23.9 seconds 22.5-36.0 RECOMMENDED COUMADIN/WARFARIN INR THERAPY RANGESSTANDARD DOSE: 2.0 - 3.0 Inclu odin: PROPHYLAXIS for venous thrombosis, systemic embolization; TREATMENT for dipti ous thrombosis and/or pulmonary embolus.HIGH RISK: Target INR is 2.5-3.5 for pat ients with mechanical heart valves.CBC W/PLT COUNT & AUTO [id number] 21:17:00* Test Item Value Reference Range Comments WHITE BLOOD CELL COUNT (BEAKER) (test afnu=414) 6.3 K/ L 3.5-10.5 RED BLOOD CELL COUNT (BEAKER) (test rdkw=838) 3.84 M/ L 4.63-6.08 HEMOGLOBIN (BEAKER) (test spvv=965) 11.8 GM/DL 13.7-17.5 HEMATOCRIT (BEAKER) (test hlzd=128) 35.2 % 40.1-51.0 MEAN CORPUSCULAR VOLUME (BEAKER) (test zdno=703) 91.7 fL 79.0-92.2 MEAN CORPUSCULAR HEMOGLOBIN (BEAKER) (test rfvn=449) 30.7 pg 25.7-32.2 MEAN CORPUSCULAR HEMOGLOBIN CONC (BEAKER) (test redk=138) 33.5 GM/DL 32.3-36.5 RED CELL DISTRIBUTION WIDTH (BEAKER) (test inaa=960) 13.2 % 11.6-14.4 PLATELET COUNT (BEAKER) (test enqw=377) 156 K/CU MM 150-450 MEAN PLATELET VOLUME (BEAKER) (test rejl=088) 9.0 fL 9.4-12.4 NUCLEATED RED BLOOD CELLS (BEAKER) (test sgif=438) 0 /100 WBC 0-0 NEUTROPHILS RELATIVE PERCENT (BEAKER) (test zizw=132) 68 % LYMPHOCYTES RELATIVE PERCENT (BEAKER) (test kfgu=785) 24 % MONOCYTES RELATIVE PERCENT (BEAKER) (test htsz=598) 6 % EOSINOPHILS RELATIVE PERCENT (BEAKER) (test wcye=926) 1 % BASOPHILS RELATIVE PERCENT (BEAKER) (test wqcv=361) 1 % NEUTROPHILS ABSOLUTE COUNT (BEAKER) (test pjen=661) 4.23 K/ L 1.78-5.38 LYMPHOCYTES ABSOLUTE COUNT (BEAKER) (test ughp=500) 1.52 K/ L 1.32-3.57 MONOCYTES ABSOLUTE COUNT (BEAKER) (test sbih=828) 0.38 K/ L 0.30-0.82 EOSINOPHILS ABSOLUTE COUNT (BEAKER) (test jqhz=647) 0.06 K/ L 0.04-0.54 BASOPHILS ABSOLUTE COUNT (BEAKER) (test drii=636) 0.03 K/ L 0.01-0.08 IMMATURE GRANULOCYTES-RELATIVE PERCENT (BEAKER) (test bqpx=9167) 1 % 0-1 CT, BRAIN, WITHOUT [id number] 19:34:00Reason for exam:->FALLWhat is the patient's sedation [...] findings as discussed above. Signed: Fei Mendez [facility] Verified Date/Time: 06/04/2018 19:34:16 Reading Location: [facility] Radiology Reading Room -GLUCOSE [id number] 08:45:00* Test Item Value Reference Range Comments POC-GLUCOSE METER (BEAKER) (test itea=2416) 172 mg/dL 70-110 TESTED AT [facility] [address] [facility] [address] [id number] 06:06:00* Test Item Value Reference Range Comments MAGNESIUM (BEAKER) (test kvct=455) 2.4 mg/dL 1.6-2.6 Specimen slightly hemolyzed BASIC METABOLIC [id number] 06:06:00* Test Item Value Reference Range Comments SODIUM (BEAKER) (test koiw=551) 136 meq/L 136-145 POTASSIUM (BEAKER) (test fvdk=692) 4.8 meq/L 3.5-5.1 Specimen slightly hemolyzed CHLORIDE (BEAKER) (test phex=394) 101 meq/L 98-107 CO2 (BEAKER) (test zfip=276) 26 meq/L 22-29 BLOOD UREA NITROGEN (BEAKER) (test lcjr=324) 12 mg/dL 7-21 CREATININE (BEAKER) (test ebka=627) 1.26 mg/dL 0.57-1.25 Specimen slightly hemolyzed GLUCOSE RANDOM (BEAKER) (test ldqh=515) 166 mg/dL 70-105 CALCIUM (BEAKER) (test quzm=869) 10.1 mg/dL 8.4-10.2 EGFR (BEAKER) (test hned=9651) 62 mL/min/1.73 sq m ESTIMATED GFR IS NOT ACCURATE CREATININE CLEARANCE IN PREDICTING GLOMERULAR FILTRATION RATE. ESTIMATED GFR IS NOT APPLICABLE FOR DIALYSIS PATIENTS. CBC W/PLT COUNT & AUTO [id number] 05:18:00* Test Item Value Reference Range Comments WHITE BLOOD CELL COUNT (BEAKER) (test yoxq=142) 6.1 K/ L 3.5-10.5 RED BLOOD CELL COUNT (BEAKER) (test cnso=552) 4.19 M/ L 4.63-6.08 HEMOGLOBIN (BEAKER) (test djis=698) 12.9 GM/DL 13.7-17.5 HEMATOCRIT (BEAKER) (test lose=518) 38.7 % 40.1-51.0 MEAN CORPUSCULAR VOLUME (BEAKER) (test cqou=993) 92.4 fL 79.0-92.2 MEAN CORPUSCULAR HEMOGLOBIN (BEAKER) (test gjll=259) 30.8 pg 25.7-32.2 MEAN CORPUSCULAR HEMOGLOBIN CONC (BEAKER) (test ouhr=768) 33.3 GM/DL 32.3-36.5 RED CELL DISTRIBUTION WIDTH (BEAKER) (test ujth=347) 13.0 % 11.6-14.4 PLATELET COUNT (BEAKER) (test vshy=160) 198 K/CU MM 150-450 MEAN PLATELET VOLUME (BEAKER) (test tpua=262) 9.1 fL 9.4-12.4 NUCLEATED RED BLOOD CELLS (BEAKER) (test vumt=967) 0 /100 WBC 0-0 NEUTROPHILS RELATIVE PERCENT (BEAKER) (test mlkz=929) 50 % LYMPHOCYTES RELATIVE PERCENT (BEAKER) (test nxrc=636) 39 % MONOCYTES RELATIVE PERCENT (BEAKER) (test xouo=727) 8 % EOSINOPHILS RELATIVE PERCENT (BEAKER) (test pdih=531) 1 % BASOPHILS RELATIVE PERCENT (BEAKER) (test fnrr=399) 1 % NEUTROPHILS ABSOLUTE COUNT (BEAKER) (test qllj=230) 3.05 K/ L 1.78-5.38 LYMPHOCYTES ABSOLUTE COUNT (BEAKER) (test pgrm=518) 2.38 K/ L 1.32-3.57 MONOCYTES ABSOLUTE COUNT (BEAKER) (test kaak=912) 0.50 K/ L 0.30-0.82 EOSINOPHILS ABSOLUTE COUNT (BEAKER) (test vqrd=968) 0.08 K/ L 0.04-0.54 BASOPHILS ABSOLUTE COUNT (BEAKER) (test ocwn=588) 0.04 K/ L 0.01-0.08 IMMATURE GRANULOCYTES-RELATIVE PERCENT (BEAKER) (test rxjg=6330) 1 % 0-1 POCT-GLUCOSE [id number] 23:25:00* Test Item Value Reference Range Comments POC-GLUCOSE METER (BEAKER) (test vxet=7107) 318 mg/dL 70-110 TESTED AT [facility] [address] [facility] [address] RAPID DRUG SCREEN, [id number] 21:29:00* Test Item Value Reference Range Comments BARBITURATE URINE (BEAKER) (test itmh=939) Negative Negative BENZODIAZEPINE SCREEN URINE (BEAKER) (test emum=515) Positive Negative COCAINE (METAB.) SCREEN (BEAKER) (test afsh=3481) Negative Negative METHADONE SCREEN (BEAKER) (test barb=4866) Negative Negative OPIATE SCREEN URINE (BEAKER) (test wwkd=162) Positive Negative CANNABINOID SCREEN URINE (BEAKER) (test xuvw=937) Negative Negative AMPH/METHAMPH SCREEN (BEAKER) (test peem=8493) Negative Negative PHENCYCLIDINE SCREEN URINE (BEAKER) (test chdj=092) Negative Negative OXYCODONE SCREEN URINE (BEAKER) (test wikd=7316) Negative Negative DRUG CUTOFF CONC.Cocaine 300 ng/mL Cannabinoid 50 ng/mL Benzodiazepine 200 ng/mLBarbiturate 200 ng/mLPh encyclidine 25 ng/mLOpiate 300 ng/mLMethadone 300 ng/mLAmphetamine/ 1000 ng/mL MethamphetamineOxycodone 300 ng/mLThis assay provides an unconfirmed qualitative test result for the cli nical management of patients in emergency situations. Chain of custody not maint ained. Some iysp-kuh-gwnbjoi medications, as well as adulterants, may cause inac curate results. Clinical correlation should be applied. A more comprehensive viry g screen or confirmation of a detected drug may be performed upon request. URINALYSIS W/ [id number] 21:04:00* Test Item Value Reference Range Comments COLOR (BEAKER) (test adsj=519) Light Yellow CLARITY (BEAKER) (test tpzk=337) Clear SPECIFIC GRAVITY UA (BEAKER) (test brqj=294) 1.013 1.001-1.035 PH UA (BEAKER) (test dtvr=084) 6.0 5.0-8.0 PROTEIN UA (BEAKER) (test tvlx=148) Negative Negative GLUCOSE UA (BEAKER) (test gdyn=734) >1000 mg/dL Negative KETONES UA (BEAKER) (test meot=956) Negative Negative BILIRUBIN UA (BEAKER) (test rhvt=536) Negative Negative BLOOD UA (BEAKER) (test ofyf=898) Negative Negative NITRITE UA (BEAKER) (test ekua=313) Negative Negative LEUKOCYTE ESTERASE UA (BEAKER) (test cpyq=735) Negative Negative UROBILINOGEN UA (BEAKER) (test egwt=450) 0.2 mg/dL 0.2-1.0 RBC UA (BEAKER) (test lbad=312) < /HPF WBC UA (BEAKER) (test pxgo=654) 0 /HPF SOURCE(BEAKER) (test sgyl=1214) Urine, Clean Catch POCT-GLUCOSE [id number] 18:06:00* Test Item Value Reference Range Comments POC-GLUCOSE METER (BEAKER) (test fgeg=4986) 315 mg/dL 70-110 Notified SHANTAL RUIZ/TESTED AT [place] [id number] POCT-GLUCOSE [id number] 16:10:00* Test Item Value Reference Range Comments POC-GLUCOSE METER (BEAKER) (test qrta=0905) 325 mg/dL 70-110 TESTED AT [address] [address] POCT-GLUCOSE [id number] 13:33:00* Test Item Value Reference Range Comments POC-GLUCOSE METER (BEAKER) (test fjzi=1965) 334 mg/dL 70-110 TESTED AT [address] [address] TROPONIN [id number] 11:47:00* Test Item Value Reference Range Comments TROPONIN I (BEAKER) (test dmrd=988) < ng/mL 0.00-0.03 Troponin I (TnI) levels [...] acute neurological disease, and per sistent tachyarrhythmia.POCT-GLUCOSE [id number] 09:38:00* Test Item Value Reference Range Comments POC-GLUCOSE METER (BEAKER) (test xjjl=0686) 257 mg/dL 70-110 TESTED AT [facility] [address] [facility] [address] POCT-GLUCOSE [id number] 07:50:00* Test Item Value Reference Range Comments POC-GLUCOSE METER (BEAKER) (test azpk=1439) 251 mg/dL 70-110 TESTED AT [facility] [address] [facility] [address] TROPONIN [id number] 04:07:00* Test Item Value Reference Range Comments TROPONIN I (BEAKER) (test ypik=864) < ng/mL 0.00-0.03 Troponin I (TnI) levels [...] acidosis, acute neurological disease, and per sistent tachyarrhythmia.[id number] 04:02:00* Test Item Value Reference Range Comments MAGNESIUM (BEAKER) (test tqdp=103) 2.0 mg/dL 1.6-2.6 Specimen slightly hemolyzed BASIC METABOLIC [id number] 04:02:00* Test Item Value Reference Range Comments SODIUM (BEAKER) (test rckp=316) 131 meq/L 136-145 POTASSIUM (BEAKER) (test zjyo=808) 4.4 meq/L 3.5-5.1 Specimen slightly hemolyzed CHLORIDE (BEAKER) (test npdc=748) 97 meq/L 98-107 CO2 (BEAKER) (test izoa=830) 24 meq/L 22-29 BLOOD UREA NITROGEN (BEAKER) (test cxsd=997) 13 mg/dL 7-21 CREATININE (BEAKER) (test ikoz=910) 1.31 mg/dL 0.57-1.25 Specimen slightly hemolyzed GLUCOSE RANDOM (BEAKER) (test ncyt=320) 329 mg/dL 70-105 CALCIUM (BEAKER) (test aivs=777) 9.3 mg/dL 8.4-10.2 EGFR (BEAKER) (test odhw=5206) 59 mL/min/1.73 sq m ESTIMATED GFR IS NOT ACCURATE CREATININE CLEARANCE IN PREDICTING GLOMERULAR FILTRATION RATE. ESTIMATED GFR IS NOT APPLICABLE FOR DIALYSIS PATIENTS. LIPID [id number] 04:02:00* Test Item Value Reference Range Comments TRIGLYCERIDES (BEAKER) (test zeor=791) 287 mg/dL Specimen slightly hemolyzed CHOLESTEROL (BEAKER) (test psqc=427) 146 mg/dL Specimen slightly hemolyzed HDL CHOLESTEROL (BEAKER) (test vxfm=034) 32 mg/dL LDL CHOLESTEROL CALCULATED (BEAKER) (test tddt=074) 57 mg/dL Triglyceride Reference Range: Low Risk <150 Borderline 150-199 High Risk 200-499 Very High Risk >=500Cholesterol Reference Range: Low Risk <200 Borderline 200-239 High Risk >240HDL Cholesterol Reference Range: Low Risk >=60 High Risk <40LDL Cholesterol Reference Range: Optimal <100 Near Optimal 100-129 Borderline 130-159 High 160-189 Very High >=190 CBC W/PLT COUNT & AUTO [id number] 03:40:00* Test Item Value Reference Range Comments WHITE BLOOD CELL COUNT (BEAKER) (test nkuc=506) 5.6 K/ L 3.5-10.5 RED BLOOD CELL COUNT (BEAKER) (test jkez=671) 3.75 M/ L 4.63-6.08 HEMOGLOBIN (BEAKER) (test dkvd=536) 11.4 GM/DL 13.7-17.5 HEMATOCRIT (BEAKER) (test rpek=372) 34.9 % 40.1-51.0 MEAN CORPUSCULAR VOLUME (BEAKER) (test uqas=735) 93.1 fL 79.0-92.2 MEAN CORPUSCULAR HEMOGLOBIN (BEAKER) (test nomb=734) 30.4 pg 25.7-32.2 MEAN CORPUSCULAR HEMOGLOBIN CONC (BEAKER) (test qsle=200) 32.7 GM/DL 32.3-36.5 RED CELL DISTRIBUTION WIDTH (BEAKER) (test itqm=909) 13.2 % 11.6-14.4 PLATELET COUNT (BEAKER) (test smrn=855) 183 K/CU MM 150-450 MEAN PLATELET VOLUME (BEAKER) (test hzoy=637) 9.0 fL 9.4-12.4 NUCLEATED RED BLOOD CELLS (BEAKER) (test ethg=186) 0 /100 WBC 0-0 NEUTROPHILS RELATIVE PERCENT (BEAKER) (test ngad=502) 62 % LYMPHOCYTES RELATIVE PERCENT (BEAKER) (test cbca=507) 29 % MONOCYTES RELATIVE PERCENT (BEAKER) (test bspd=085) 8 % EOSINOPHILS RELATIVE PERCENT (BEAKER) (test bawo=315) 1 % BASOPHILS RELATIVE PERCENT (BEAKER) (test mzzc=463) 0 % NEUTROPHILS ABSOLUTE COUNT (BEAKER) (test uydl=001) 3.42 K/ L 1.78-5.38 LYMPHOCYTES ABSOLUTE COUNT (BEAKER) (test ubnv=088) 1.60 K/ L 1.32-3.57 MONOCYTES ABSOLUTE COUNT (BEAKER) (test uvfh=048) 0.43 K/ L 0.30-0.82 EOSINOPHILS ABSOLUTE COUNT (BEAKER) (test bmup=483) 0.06 K/ L 0.04-0.54 BASOPHILS ABSOLUTE COUNT (BEAKER) (test gmkp=515) 0.02 K/ L 0.01-0.08 IMMATURE GRANULOCYTES-RELATIVE PERCENT (BEAKER) (test wpet=7080) 0 % 0-1 POCT-GLUCOSE [id number] 22:41:00* Test Item Value Reference Range Comments POC-GLUCOSE METER (BEAKER) (test avkr=3689) 186 mg/dL 70-110 TESTED AT [facility] [address] [facility] [address] RAD, SPINE, LUMBAR, COMPLETE (MIN 4 VIEWS)2018-05-29 [...] MDReport Verified Date/Time: 05/29/2018 19:24:24 Reading Location: [facility] C013 CT Body Reading Room , PELVIS, 1 [...] Verified Date/Caden e: 05/29/2018 19:16:28 Reading Location: [address] Reading Room , RIBS, [id number] 19:12:00Reason for exam:->FALLReason for exam:->FALLFINAL REPORT RAD, [...] No rib fracture. Signed: Sherri merrill JR, Robert MDReport Verified Date/Time: 05/29/2018 19:12:04 Reading Loca tion: [facility] C013Y CT Body Reading Room TINE KINASE (CK), TOTAL AND [id number] 19:07:00* Test Item Value Reference Range Comments CREATINE KINASE TOTAL (BEAKER) (test jwlm=217) 199 U/L 29-200 CREATINE KINASE-MB (BEAKER) (test xrsb=510) 4.8 ng/mL 0.0-6.6 CREATINE KINASE-MB INDEX (BEAKER) (test kuws=917) 2.4 % CK-MB Reference Range:<6.7 Normal6.7-10.0 Borderline>10.0 Abnormal POCT-GLUCOSE [id number] 18:17:00* Test Item Value Reference Range Comments POC-GLUCOSE METER (BEAKER) (test fcyk=8468) 269 mg/dL 70-110 TESTED AT [address] [address] [address], BRAIN, WITHOUT [id number] 17:30:00Reason for exam:->DIZZINESSReason for exam:->LOSS OF CONSCIOUSNESSWhat [...] Verified Date/Time: 05/29/2018 17:30:29 Reading Loc ation: [facility] B1 C013V Neuro Reading Room , SPINE, CERVICAL, WO [id number] 17:30:00Reason for exam:->DIZZINESSReason for exam:->LOSS OF CONSCIOUSNESSWhat [...] evidence of acute intracranial process. Signed: Todd Hartleyeport Verified Date/Time: 05/29/2018 17:30:29 Reading Loc ation: [facility] B1 C013V Neuro Reading Room ONIN [id number] 17:22:00* Test Item Value Reference Range Comments TROPONIN I (BEAKER) (test jxej=610) < ng/mL 0.00-0.03 Troponin I (TnI) levels [...] acidosis, acute neurological disease, and per sistent tachyarrhythmia.[id number] 17:16:00* Test Item Value Reference Range Comments MAGNESIUM (BEAKER) (test kwoe=097) 2.9 mg/dL 1.6-2.6 Specimen markedly hemolyzed [id number] 17:16:00* Test Item Value Reference Range Comments PHOSPHORUS (BEAKER) (test ycbm=099) 3.4 mg/dL 2.3-4.7 Specimen markedly hemolyzed COMPREHENSIVE METABOLIC [id number] 17:16:00* Test Item Value Reference Range Comments TOTAL PROTEIN (BEAKER) (test nhnx=164) 7.7 gm/dL 6.0-8.3 Specimen markedly hemolyzed ALBUMIN (BEAKER) (test kyze=8773) 4.3 g/dL 3.5-5.0 Specimen markedly hemolyzed ALKALINE PHOSPHATASE (BEAKER) (test xijn=195) 71 U/L 40-150 BILIRUBIN TOTAL (BEAKER) (test afhu=383) 0.7 mg/dL 0.2-1.2 Specimen markedly hemolyzed SODIUM (BEAKER) (test aukf=399) 132 meq/L 136-145 POTASSIUM (BEAKER) (test xgwv=844) 5.2 meq/L 3.5-5.1 Specimen markedly hemolyzed CHLORIDE (BEAKER) (test wdtn=325) 99 meq/L 98-107 CO2 (BEAKER) (test kjpp=462) 22 meq/L 22-29 BLOOD UREA NITROGEN (BEAKER) (test iutg=964) 13 mg/dL 7-21 CREATININE (BEAKER) (test gcbd=895) 1.33 mg/dL 0.57-1.25 Specimen markedly hemolyzed GLUCOSE RANDOM (BEAKER) (test udij=186) 261 mg/dL 70-105 CALCIUM (BEAKER) (test udoq=351) 10.0 mg/dL 8.4-10.2 AST (SGOT) (BEAKER) (test kkxg=773) 60 U/L 5-34 Specimen markedly hemolyzed ALT (SGPT) (BEAKER) (test qyir=288) 39 U/L 6-55 Specimen markedly hemolyzed EGFR (BEAKER) (test lqbd=8776) 58 mL/min/1.73 sq m ESTIMATED GFR IS NOT ACCURATE CREATININE CLEARANCE IN PREDICTING GLOMERULAR FILTRATION RATE. ESTIMATED GFR IS NOT APPLICABLE FOR DIALYSIS PATIENTS. PT/[id number] 17:02:00* Test Item Value Reference Range Comments PROTIME (BEAKER) (test ypbv=739) 13.4 seconds 11.7-14.7 INR (BEAKER) (test fsjo=499) 1.0 <=5.9 PARTIAL THROMBOPLASTIN TIME (BEAKER) (test fhfm=956) 24.8 seconds 22.5-36.0 RECOMMENDED COUMADIN/WARFARIN INR THERAPY RANGESSTANDARD DOSE: 2.0 - 3.0 Inclu odin: PROPHYLAXIS for venous thrombosis, systemic embolization; TREATMENT for dipti ous thrombosis and/or pulmonary embolus.HIGH RISK: Target INR is 2.5-3.5 for pat ients with mechanical heart valves.CBC W/PLT COUNT & AUTO [id number] 16:53:00* Test Item Value Reference Range Comments WHITE BLOOD CELL COUNT (BEAKER) (test orok=639) 5.0 K/ L 3.5-10.5 RED BLOOD CELL COUNT (BEAKER) (test amst=263) 4.23 M/ L 4.63-6.08 HEMOGLOBIN (BEAKER) (test cwxw=987) 13.0 GM/DL 13.7-17.5 HEMATOCRIT (BEAKER) (test ldyh=308) 39.5 % 40.1-51.0 MEAN CORPUSCULAR VOLUME (BEAKER) (test lmyt=911) 93.4 fL 79.0-92.2 MEAN CORPUSCULAR HEMOGLOBIN (BEAKER) (test flyt=478) 30.7 pg 25.7-32.2 MEAN CORPUSCULAR HEMOGLOBIN CONC (BEAKER) (test befk=382) 32.9 GM/DL 32.3-36.5 RED CELL DISTRIBUTION WIDTH (BEAKER) (test scct=271) 13.2 % 11.6-14.4 PLATELET COUNT (BEAKER) (test tgly=039) 235 K/CU MM 150-450 MEAN PLATELET VOLUME (BEAKER) (test lann=689) 9.9 fL 9.4-12.4 NUCLEATED RED BLOOD CELLS (BEAKER) (test lgqj=628) 0 /100 WBC 0-0 NEUTROPHILS RELATIVE PERCENT (BEAKER) (test actj=811) 70 % LYMPHOCYTES RELATIVE PERCENT (BEAKER) (test vaxh=811) 21 % MONOCYTES RELATIVE PERCENT (BEAKER) (test qsam=512) 7 % EOSINOPHILS RELATIVE PERCENT (BEAKER) (test oigx=972) 1 % BASOPHILS RELATIVE PERCENT (BEAKER) (test dllv=282) 0 % NEUTROPHILS ABSOLUTE COUNT (BEAKER) (test njlb=773) 3.46 K/ L 1.78-5.38 LYMPHOCYTES ABSOLUTE COUNT (BEAKER) (test slvc=653) 1.06 K/ L 1.32-3.57 MONOCYTES ABSOLUTE COUNT (BEAKER) (test ftqp=771) 0.35 K/ L 0.30-0.82 EOSINOPHILS ABSOLUTE COUNT (BEAKER) (test jlta=457) 0.04 K/ L 0.04-0.54 BASOPHILS ABSOLUTE COUNT (BEAKER) (test tfep=067) 0.02 K/ L 0.01-0.08 IMMATURE GRANULOCYTES-RELATIVE PERCENT (BEAKER) (test qoqs=0900) 1 % 0-1 CHEST SINGLE (PORTABLE)2018-05-27 18:29:00 [place] [address] Patient Name: DAVID SAMUELS MR #: [id number] : 1970 Age/Sex: 47/M Req #: [id number] Adm Physician: Ordered by: EMILY PARHAM NP [...] ranscribed By: HARSHA on 05/27/181829 COPY TO: EMILY PARHAM NP POCT-GLUCOSE [id number] 20:58:00* Test Item Value Reference Range Comments POC-GLUCOSE METER (BEAKER) (test ombl=2213) 219 mg/dL 70-110 TESTED AT [place] [id number] [facility] [address] POCT-GLUCOSE [id number] 11:52:00* Test Item Value Reference Range Comments POC-GLUCOSE METER (BEAKER) (test ljyf=7260) 259 mg/dL 70-110 TESTED AT [facility] [address] [facility] [address] POCT-GLUCOSE [id number] 09:29:00* Test Item Value Reference Range Comments POC-GLUCOSE METER (BEAKER) (test rgxg=0686) 194 mg/dL 70-110 TESTED AT [address] [address] POCT-GLUCOSE [id number] 08:13:00* Test Item Value Reference Range Comments POC-GLUCOSE METER (BEAKER) (test smxd=2245) 210 mg/dL 70-110 TESTED AT [address] [address] POCT-GLUCOSE [id number] 21:43:00* Test Item Value Reference Range Comments POC-GLUCOSE METER (BEAKER) (test ayas=5954) 370 mg/dL 70-110 TESTED AT [address] [address] POCT-GLUCOSE [id number] 16:54:00* Test Item Value Reference Range Comments POC-GLUCOSE METER (BEAKER) (test kdcp=9650) 391 mg/dL 70-110 TESTED AT [address] [address] POCT-GLUCOSE [id number] 15:01:00* Test Item Value Reference Range Comments POC-GLUCOSE METER (BEAKER) (test wgnn=1196) 482 mg/dL 70-110 Notified SHANTAL RUIZ/TESTED AT [address] [address] POCT-GLUCOSE [id number] 14:57:00* Test Item Value Reference Range Comments POC-GLUCOSE METER (BEAKER) (test agpc=1316) 489 mg/dL 70-110 Notified SHANTAL RUIZ/TESTED AT [address] [address] POCT-GLUCOSE [id number] 13:47:00* Test Item Value Reference Range Comments POC-GLUCOSE METER (BEAKER) (test ftfr=2757) 422 mg/dL 70-110 Notified SHANTAL RUIZ/TESTED AT [address] [address] POCT-GLUCOSE [id number] 12:20:00* Test Item Value Reference Range Comments POC-GLUCOSE METER (BEAKER) (test pejl=0549) 373 mg/dL 70-110 Notified SHANTAL RUIZ/TESTED AT [address] [address] POCT-GLUCOSE [id number] 07:59:00* Test Item Value Reference Range Comments POC-GLUCOSE METER (BEAKER) (test zqcs=0530) 260 mg/dL 70-110 TESTED AT [address] [address] BASIC METABOLIC [id number] 07:14:00* Test Item Value Reference Range Comments SODIUM (BEAKER) (test cmok=509) 133 meq/L 136-145 POTASSIUM (BEAKER) (test spvw=448) 4.1 meq/L 3.5-5.1 CHLORIDE (BEAKER) (test stfe=166) 97 meq/L 98-107 CO2 (BEAKER) (test indl=049) 26 meq/L 22-29 BLOOD UREA NITROGEN (BEAKER) (test tkww=119) 14 mg/dL 7-21 CREATININE (BEAKER) (test mkan=906) 1.14 mg/dL 0.57-1.25 GLUCOSE RANDOM (BEAKER) (test yqqh=775) 304 mg/dL 70-105 CALCIUM (BEAKER) (test fhpr=225) 9.5 mg/dL 8.4-10.2 EGFR (BEAKER) (test ujkg=6143) 69 mL/min/1.73 sq m ESTIMATED GFR IS NOT ACCURATE CREATININE CLEARANCE IN PREDICTING GLOMERULAR FILTRATION RATE. ESTIMATED GFR IS NOT APPLICABLE FOR DIALYSIS PATIENTS. POCT-GLUCOSE [id number] 21:52:00* Test Item Value Reference Range Comments POC-GLUCOSE METER (BEAKER) (test opmi=0602) 228 mg/dL 70-110 TESTED AT [address] [address] POCT-GLUCOSE [id number] 19:01:00* Test Item Value Reference Range Comments POC-GLUCOSE METER (BEAKER) (test dwbj=9652) 350 mg/dL 70-110 Will Repeat Test/TESTED AT [address] [address] POCT-GLUCOSE [id number] 16:08:00* Test Item Value Reference Range Comments POC-GLUCOSE METER (BEAKER) (test qqsr=6428) 397 mg/dL 70-110 Will Repeat Test/TESTED AT [address] [address] HEMOGLOBIN [id number] 14:30:00* Test Item Value Reference Range Comments HEMOGLOBIN A1C (BEAKER) (test kdau=635) 8.3 % 4.3-6.1 POCT-GLUCOSE [id number] 14:11:00* Test Item Value Reference Range Comments POC-GLUCOSE METER (BEAKER) (test atfl=2582) 376 mg/dL 70-110 Will Repeat Test/TESTED AT [address] [address] POCT-GLUCOSE [id number] 12:54:00* Test Item Value Reference Range Comments POC-GLUCOSE METER (BEAKER) (test zmds=5879) 412 mg/dL 70-110 Will Repeat Test/TESTED AT [place] [id number] MR, BRAIN, WITHOUT [id number] 11:23:00FINAL REPORT MRI brain without contrast INDICATION: [...] Mendez Verified Date/Time: 05/09/2018 11:23:03 Reading Location: [address] Neuro Reading Room -GLUCOSE [id number] 07:58:00* Test Item Value Reference Range Comments POC-GLUCOSE METER (BEAKER) (test poyp=3134) 212 mg/dL 70-110 TESTED AT [address] [address] BASIC METABOLIC [id number] 06:19:00* Test Item Value Reference Range Comments SODIUM (BEAKER) (test biat=305) 133 meq/L 136-145 POTASSIUM (BEAKER) (test vsjx=295) 4.2 meq/L 3.5-5.1 CHLORIDE (BEAKER) (test hxim=783) 98 meq/L 98-107 CO2 (BEAKER) (test oqlb=645) 25 meq/L 22-29 BLOOD UREA NITROGEN (BEAKER) (test zzjm=074) 14 mg/dL 7-21 CREATININE (BEAKER) (test ocit=643) 1.11 mg/dL 0.57-1.25 GLUCOSE RANDOM (BEAKER) (test cdjq=843) 269 mg/dL 70-105 CALCIUM (BEAKER) (test fpcu=057) 9.7 mg/dL 8.4-10.2 EGFR (BEAKER) (test nlfd=9722) 71 mL/min/1.73 sq m ESTIMATED GFR IS NOT ACCURATE CREATININE CLEARANCE IN PREDICTING GLOMERULAR FILTRATION RATE. ESTIMATED GFR IS NOT APPLICABLE FOR DIALYSIS PATIENTS. POCT-GLUCOSE [id number] 21:12:00* Test Item Value Reference Range Comments POC-GLUCOSE METER (BEAKER) (test ymee=4712) 307 mg/dL 70-110 TESTED AT [facility] [address] [facility] [address] POCT-GLUCOSE [id number] 16:53:00* Test Item Value Reference Range Comments POC-GLUCOSE METER (BEAKER) (test qnuc=8411) 246 mg/dL 70-110 TESTED AT [place] [id number] [facility] [address] EEG AWAKE AND [id number] 15:19:00Reason for exam:->Dizziness with staring spellsNeurophysiology Electroencephalogram Report DATE OF REPORT: 05/08/18Date(s) of Study: 05/08/2018ACC: [id number]: [id number] time: 05/08/2018 at 13:55Stop time: 05/08/2018 at 14:16ICD-10: R56.9CPT Code: 88046 HISTORY: 47 y old male with h/o [...] to capture awake state. Wicho Salazar , [facility]ANTlinical Neurophysiology Fellow Rocky Worley MD, [facility]iology/Epilepsy Attending -GLUCOSE METER 2018-05-08 11:29:00* Test Item Value Reference Range Comments POC-GLUCOSE METER (BEAKER) (test zhvn=2302) 310 mg/dL 70-110 Notified SHANTAL RUIZ/TESTED AT [place] [address] POCT-GLUCOSE [id number] 08:04:00* Test Item Value Reference Range Comments POC-GLUCOSE METER (BEAKER) (test nooy=2081) 321 mg/dL 70-110 Notified SHANTAL RUIZ/TESTED AT [address] [address] LIPID [id number] 07:28:00* Test Item Value Reference Range Comments TRIGLYCERIDES (BEAKER) (test nhpa=500) 285 mg/dL CHOLESTEROL (BEAKER) (test lnsg=026) 147 mg/dL HDL CHOLESTEROL (BEAKER) (test atah=746) 35 mg/dL LDL CHOLESTEROL CALCULATED (BEAKER) (test ncfi=281) 55 mg/dL Triglyceride Reference Range: Low Risk <150 Borderline 150-199 High Risk 200-499 Very High Risk >=500Cholesterol Reference Range: Low Risk <200 Borderline 200-239 High Risk >240HDL Cholesterol Reference Range: Low Risk >=60 High Risk <40LDL Cholesterol Reference Range: Optimal <100 Near Optimal 100-129 Borderline 130-159 High 160-189 Very High >=190 BASIC METABOLIC [id number] 07:28:00* Test Item Value Reference Range Comments SODIUM (BEAKER) (test ylwp=000) 135 meq/L 136-145 POTASSIUM (BEAKER) (test rddk=488) 4.1 meq/L 3.5-5.1 CHLORIDE (BEAKER) (test nrut=626) 99 meq/L 98-107 CO2 (BEAKER) (test yrax=059) 28 meq/L 22-29 BLOOD UREA NITROGEN (BEAKER) (test komw=765) 12 mg/dL 7-21 CREATININE (BEAKER) (test krzq=442) 1.17 mg/dL 0.57-1.25 GLUCOSE RANDOM (BEAKER) (test vshq=524) 302 mg/dL 70-105 CALCIUM (BEAKER) (test syzd=340) 9.9 mg/dL 8.4-10.2 EGFR (BEAKER) (test jykx=4896) 67 mL/min/1.73 sq m ESTIMATED GFR IS NOT ACCURATE CREATININE CLEARANCE IN PREDICTING GLOMERULAR FILTRATION RATE. ESTIMATED GFR IS NOT APPLICABLE FOR DIALYSIS PATIENTS. TROPONIN [id number] 07:26:00* Test Item Value Reference Range Comments TROPONIN I (BEAKER) (test renk=411) < ng/mL 0.00-0.03 Troponin I (TnI) levels [...] per sistent tachyarrhythmia.CBC W/PLT COUNT & AUTO [id number] 07:06:00* Test Item Value Reference Range Comments WHITE BLOOD CELL COUNT (BEAKER) (test khmi=491) 5.5 K/ L 3.5-10.5 RED BLOOD CELL COUNT (BEAKER) (test lbcb=910) 3.92 M/ L 4.63-6.08 HEMOGLOBIN (BEAKER) (test eicd=903) 12.2 GM/DL 13.7-17.5 HEMATOCRIT (BEAKER) (test gbzu=467) 37.5 % 40.1-51.0 MEAN CORPUSCULAR VOLUME (BEAKER) (test ddra=742) 95.7 fL 79.0-92.2 MEAN CORPUSCULAR HEMOGLOBIN (BEAKER) (test nwer=101) 31.1 pg 25.7-32.2 MEAN CORPUSCULAR HEMOGLOBIN CONC (BEAKER) (test bdyz=617) 32.5 GM/DL 32.3-36.5 RED CELL DISTRIBUTION WIDTH (BEAKER) (test itce=215) 13.6 % 11.6-14.4 PLATELET COUNT (BEAKER) (test shdb=419) 181 K/CU MM 150-450 MEAN PLATELET VOLUME (BEAKER) (test vraa=907) 9.0 fL 9.4-12.4 NUCLEATED RED BLOOD CELLS (BEAKER) (test saku=876) 0 /100 WBC 0-0 NEUTROPHILS RELATIVE PERCENT (BEAKER) (test sxnt=510) 58 % LYMPHOCYTES RELATIVE PERCENT (BEAKER) (test uhrk=908) 33 % MONOCYTES RELATIVE PERCENT (BEAKER) (test ogda=365) 7 % EOSINOPHILS RELATIVE PERCENT (BEAKER) (test twgr=093) 1 % BASOPHILS RELATIVE PERCENT (BEAKER) (test yzed=707) 0 % NEUTROPHILS ABSOLUTE COUNT (BEAKER) (test szus=998) 3.14 K/ L 1.78-5.38 LYMPHOCYTES ABSOLUTE COUNT (BEAKER) (test cglu=870) 1.82 K/ L 1.32-3.57 MONOCYTES ABSOLUTE COUNT (BEAKER) (test xctw=905) 0.37 K/ L 0.30-0.82 EOSINOPHILS ABSOLUTE COUNT (BEAKER) (test cdvg=981) 0.07 K/ L 0.04-0.54 BASOPHILS ABSOLUTE COUNT (BEAKER) (test dcbr=853) 0.02 K/ L 0.01-0.08 IMMATURE GRANULOCYTES-RELATIVE PERCENT (BEAKER) (test thdq=0245) 1 % 0-1 POCT-GLUCOSE [id number] 19:22:00* Test Item Value Reference Range Comments POC-GLUCOSE METER (BEAKER) (test euaq=3885) 194 mg/dL 70-110 TESTED AT [facility] [address] [facility] [address] TROPONIN [id number] 18:15:00* Test Item Value Reference Range Comments TROPONIN I (BEAKER) (test uryw=775) < ng/mL 0.00-0.03 Troponin I (TnI) levels [...] per sistent tachyarrhythmia.RAD, CHEST, 1 VIEW, NON [id number] 14:53:00Reason for exam:->CHEST PAINFINAL REPORT TECHNIQUE: Single view of the chest. COMPARISON: 12/31/2016 FINDINGS: The cardiac silhouette is within normal limits. Mediastinum is unremarkable. Lungs are clear. No acute skeletal abnormality. There is mild thoracolumbar scoliosis. Soft tissues appear unremarkable. IMPRESSION: No acute cardiopulmonary disease. Signed: Osiel Snow Verified Date/Time: 05/07/2018 14:53:36 Reading Location: [address] Consult Reading Room TINE KINASE (CK), TOTAL AND [id number] 14:36:00* Test Item Value Reference Range Comments CREATINE KINASE TOTAL (BEAKER) (test zkwt=650) 56 U/L 29-200 CREATINE KINASE-MB (BEAKER) (test isac=090) 0.5 ng/mL 0.0-6.6 CREATINE KINASE-MB INDEX (BEAKER) (test fqoi=554) 0.9 % CK-MB Reference Range:<6.7 Normal6.7-10.0 Borderline>10.0 Abnormal TROPONIN [id number] 14:36:00* Test Item Value Reference Range Comments TROPONIN I (BEAKER) (test ncpk=522) < ng/mL 0.00-0.03 Troponin I (TnI) levels [...] Range Comments B-TYPE NATRIURETIC PEPTIDE (BEAKER) (test auie=692) 20 pg/mL 0-100 [id number] 14:30:00* Test Item Value Reference Range Comments MAGNESIUM (BEAKER) (test yyvt=308) 1.8 mg/dL 1.6-2.6 BASIC METABOLIC [id number] 14:30:00* Test Item Value Reference Range Comments SODIUM (BEAKER) (test haio=898) 132 meq/L 136-145 POTASSIUM (BEAKER) (test gzis=144) 4.6 meq/L 3.5-5.1 CHLORIDE (BEAKER) (test utyf=493) 99 meq/L 98-107 CO2 (BEAKER) (test wuin=742) 22 meq/L 22-29 BLOOD UREA NITROGEN (BEAKER) (test urqs=571) 11 mg/dL 7-21 CREATININE (BEAKER) (test ptcd=814) 1.23 mg/dL 0.57-1.25 GLUCOSE RANDOM (BEAKER) (test lnss=501) 282 mg/dL 70-105 CALCIUM (BEAKER) (test clfg=834) 9.5 mg/dL 8.4-10.2 EGFR (BEAKER) (test utlg=8343) 63 mL/min/1.73 sq m ESTIMATED GFR IS NOT ACCURATE CREATININE CLEARANCE IN PREDICTING GLOMERULAR FILTRATION RATE. ESTIMATED GFR IS NOT APPLICABLE FOR DIALYSIS PATIENTS. PT/[id number] 14:17:00* Test Item Value Reference Range Comments PROTIME (BEAKER) (test aiir=550) 13.2 seconds 11.7-14.7 INR (BEAKER) (test fhax=389) 1.0 <=5.9 PARTIAL THROMBOPLASTIN TIME (BEAKER) (test nqwf=413) 24.3 seconds 22.5-36.0 RECOMMENDED COUMADIN/WARFARIN INR THERAPY RANGESSTANDARD DOSE: 2.0 - 3.0 Inclu odin: PROPHYLAXIS for venous thrombosis, systemic embolization; TREATMENT for dipti ous thrombosis and/or pulmonary embolus.HIGH RISK: Target INR is 2.5-3.5 for pat ients with mechanical heart valves.CBC W/PLT COUNT & AUTO [id number] 14:07:00* Test Item Value Reference Range Comments WHITE BLOOD CELL COUNT (BEAKER) (test zqcb=298) 7.1 K/ L 3.5-10.5 RED BLOOD CELL COUNT (BEAKER) (test sbep=781) 3.64 M/ L 4.63-6.08 HEMOGLOBIN (BEAKER) (test ebow=063) 11.6 GM/DL 13.7-17.5 HEMATOCRIT (BEAKER) (test ppgd=869) 34.7 % 40.1-51.0 MEAN CORPUSCULAR VOLUME (BEAKER) (test cjag=464) 95.3 fL 79.0-92.2 MEAN CORPUSCULAR HEMOGLOBIN (BEAKER) (test urvs=018) 31.9 pg 25.7-32.2 MEAN CORPUSCULAR HEMOGLOBIN CONC (BEAKER) (test jihc=867) 33.4 GM/DL 32.3-36.5 RED CELL DISTRIBUTION WIDTH (BEAKER) (test pbiu=137) 13.4 % 11.6-14.4 PLATELET COUNT (BEAKER) (test eaym=783) 162 K/CU MM 150-450 MEAN PLATELET VOLUME (BEAKER) (test yolo=934) 9.2 fL 9.4-12.4 NUCLEATED RED BLOOD CELLS (BEAKER) (test mohx=963) 0 /100 WBC 0-0 NEUTROPHILS RELATIVE PERCENT (BEAKER) (test vksc=601) 74 % LYMPHOCYTES RELATIVE PERCENT (BEAKER) (test tkhe=240) 18 % MONOCYTES RELATIVE PERCENT (BEAKER) (test vjri=239) 7 % EOSINOPHILS RELATIVE PERCENT (BEAKER) (test trdj=091) 1 % BASOPHILS RELATIVE PERCENT (BEAKER) (test xoie=221) 0 % NEUTROPHILS ABSOLUTE COUNT (BEAKER) (test nrsk=463) 5.20 K/ L 1.78-5.38 LYMPHOCYTES ABSOLUTE COUNT (BEAKER) (test qodh=189) 1.26 K/ L 1.32-3.57 MONOCYTES ABSOLUTE COUNT (BEAKER) (test ibnf=999) 0.46 K/ L 0.30-0.82 EOSINOPHILS ABSOLUTE COUNT (BEAKER) (test qlnh=466) 0.07 K/ L 0.04-0.54 BASOPHILS ABSOLUTE COUNT (BEAKER) (test olye=902) 0.03 K/ L 0.01-0.08 IMMATURE GRANULOCYTES-RELATIVE PERCENT (BEAKER) (test uscj=9148) 1 % 0-1 CHEST SINGLE (PORTABLE)2018-05-06 02:43:00 [place] [address] Patient Name: DAVID SAMUELS MR #: [id number] : 1970 Age/Sex: 47/M Req #: [id number] Adm Physician: Ordered by: MARGE GREER MD Report #: [id number] Location: ER Room/Bed: Procedure: [id number] DX/CHEST SINGLE (PORTABLE) Lester mohr Date: 05/06/18 Exam Time: 231 REPORT STATUS: Signed EXAM: CHEST SINGLE (PORTABLE), [...] COPY TO: DARIUS GREER MD MRI BRAIN [id number] 14:22:00 [place] [address] Patient Name: DAVID SAMUELS MR #: [id number] : 1970 Age/Sex: 47/M Req #: [id number] Adm Physician: ERIC BRO MD Ordered by: VIDHI DAI MD Report #: [id number] Location: ICU Room/Bed: ICU 192-1 Procedure: [id number] MRI /MRI BRAIN WO Exam Date: Exam [...] 2:31 PM Dictated By: SHAWN CLARKE MD 30 Transcribed By: HARSHA on 04/15/181430 COPY TO: VIDHI DAI MD CTA [id number] 22:37:00 [place] [address] Patient Name: DAVID SAMUELS MR #: [id number] : 02/1971 Age/Sex: 47/M Req #: [id number] Adm Physician: Ordered by: VIDHI DAI MD Report #: [id number] Location: ER Room /Bed: Procedure: [id number] CT/CTA CHEST Exam Date: 04/14/18 Exam Time: [...] bilateral renal arteries, and BRETT are patent. 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 as follows: Aortic root, [...] HARLEY DAI MD CHEST SINGLE (PORTABLE)2018-04-14 22:30:00 [place] [address] Patient Name: DAVID SAMUELS MR #: [id number] : 1970 Age/Sex: 47/M Req #: [id number] Adm Physician: Ordered by: VIDHI DAI MD Report #: [id number] Location: ER Room /Bed: Procedure: [id number] DX/CHEST SINGLE (PORTABLE) Exam Date: 04/14/18 Exam [...] d By: JAUN COMBS MD on 04/14/18 [id number] Transcribed By: HARSHA on 04/14/18 2 231 COPY TO: VIDHI DAI MD CT BRAIN [id number] 22:17:00 [place] [address] Patient Name: DAVID SAMUELS MR #: [id number] : 1970 Age/Sex: 47/M Req #: [id number] Adm Physician: Ordered by: VIDHI DAI MD Report #: [id number] Location: ER Room/Bed: Procedure: [id number] CT/CT BRAIN WO Exam Date: Exam Time: [...] of the Lumbar Spine Without ContrastLocation Code R66Itmtimb: PainTechnique: Axial and reconstructed coronal and sagittal [...] Scan of the Brain Without ContrastLocation Code Y75Bptmzqc: PainTechnique: Scans were performed on a helical scanner pre IV contrastonly. The study is limited secondary to lack of intravenous contrast,particularly for evaluation of masses. CT images were performed perfwk93 hours at arrival to the facility. One [...] of the Cervical Spine Without ContrastLocation Code G19Jregpix: PainTechnique: Axial and reconstructed coronal and sagittal [...] Scan of the Brain Without ContrastLocation Code G18Wqomlbo: PainTechnique: Scans were performed on a helical scanner pre IV contrastonly. The study is limited secondary to lack of intravenous contrast,particularly for evaluation of masses. CT images were performed ycprst02 hours at arrival to the facility. One [...] of the Cervical Spine Without ContrastLocation Code L09Tjaaxcl: PainTechnique: Axial and reconstructed coronal and sagittal [...] Lymph Abs (test code=ALYMPH) 2.0 K/cumm 0.5-4.6 [place] Abs (test code=AMONO) 0.3 K/cumm 0.0-1.2 Eos Abs (test code=AEOS) 0.08 K/cumm 0.00-0.74 Baso Abs (test code=ABASO) 0.0 K/cumm 0.00-0.21 Comprehensive Metabolic [id number] 00:59:00* Test Item Value Reference Range Comments [...] race is not provided, and the patient isAfrican-Cam[place]onian, multiply by 1.212. If sex is not provided, and thepatient is female, multiply by 0.742. Results for patients <18 years ofage have not been validated by the MDRD study and should be interpretedwith caution.eGFR Result Interpretation:eGFR > or=60 is in the Normal RangeeGFR < 60 may mean kidney diseaseeGFR < 15 may mean kidney failureRanges recommended by the National Kidney Foundat ion,http://nkdep.nih.gov CK [id number] 00:59:00* Test Item Value Reference Range Comments CK (test code=CK) 133 U/L 39-308 Troponin [id number] 00:57:00* Test Item Value Reference Range Comments Troponin T (test code=AIRAM) <0.010 ng/mL 0.000-0.090 XR CHEST 1 [id number] 00:49:38AFTER HOURS SERVICE ON: 04/13/2017 12:49 AMAP Portable ChestLocation Code [id number]: TraumaFINDINGS: Atelectatic changes noted in the lung bases. Inspiration is shallowlimiting the lung bases. There are no pleural effusions. There is nopneumothorax. Cardiac silhouette and mediastinum appear within normallimits. IMPRESSION: Mild bibasilar subsegmental atelectasis.B-TYPE NATRIURETIC FACTOR (BNP)2016-12-31 18:59:00* Test Item Value Reference Range Comments B-TYPE NATRIURETIC PEPTIDE (BEAKER) (test xjqq=290) 15 pg/mL 0-100 CREATINE KINASE (CK), TOTAL AND [id number] 18:59:00* Test Item Value Reference Range Comments CREATINE KINASE TOTAL (BEAKER) (test bncc=749) 43 U/L 29-200 CREATINE KINASE-MB (BEAKER) (test yetk=577) 0.5 ng/mL 0.0-6.6 CREATINE KINASE-MB INDEX (BEAKER) (test vawp=916) 1.2 % Effective 06/27/2014: CK-MB Reference Range ChangeNew: 0.0-6.6 Previous: 0.0- 4.9CK-MB Reference Range:<6.7 Normal6.7-10.0 Borderline>10.0 Abnormal TROPONIN [id number] 18:59:00* Test Item Value Reference Range Comments TROPONIN I (BEAKER) (test lxyx=156) < ng/mL 0.00-0.03 Effective 06/27/2014: Reference Range [...] acidosis, acute neurological disease, and pers istent tachyarrhythmia.[id number] 18:52:00* Test Item Value Reference Range Comments MAGNESIUM (BEAKER) (test wgkz=544) 2.0 mg/dL 1.6-2.6 BASIC METABOLIC [id number] 18:52:00* Test Item Value Reference Range Comments SODIUM (BEAKER) (test bocb=376) 138 meq/L 136-145 POTASSIUM (BEAKER) (test wsrp=820) 3.6 meq/L 3.5-5.1 CHLORIDE (BEAKER) (test jktx=463) 107 meq/L 98-107 CO2 (BEAKER) (test grre=075) 21 meq/L 22-29 BLOOD UREA NITROGEN (BEAKER) (test jzja=090) 11 mg/dL 7-21 CREATININE (BEAKER) (test wvyq=515) 1.12 mg/dL 0.57-1.25 GLUCOSE RANDOM (BEAKER) (test bylk=227) 110 mg/dL 70-105 CALCIUM (BEAKER) (test imrs=929) 9.5 mg/dL 8.4-10.2 EGFR (BEAKER) (test llst=7631) 71 mL/min/1.73 sq m ESTIMATED GFR IS NOT ACCURATE CREATININE CLEARANCE IN PREDICTING GLOMERULAR FILTRATION RATE. ESTIMATED GFR IS NOT APPLICABLE FOR DIALYSIS PATIENTS. PT/[id number] 18:45:00* Test Item Value Reference Range Comments PROTIME (BEAKER) (test qvlt=603) 13.5 seconds 11.7-14.7 INR (BEAKER) (test irbr=517) 1.0 <=5.9 PARTIAL THROMBOPLASTIN TIME (BEAKER) (test abfo=417) 25.8 seconds 22.5-36.0 RECOMMENDED COUMADIN/WARFARIN INR THERAPY RANGESSTANDARD DOSE: 2.0 - 3.0 Inclu odin: PROPHYLAXIS for venous thrombosis, systemic embolization; TREATMENT for dipti ous thrombosis and/or pulmonary embolus.HIGH RISK: Target INR is 2.5-3.5 for pat ients with mechanical heart valves.CBC W/PLT COUNT & AUTO [id number] 18:39:00* Test Item Value Reference Range Comments WHITE BLOOD CELL COUNT (BEAKER) (test zmuq=052) 10.5 K/ L 4.0-10.0 RED BLOOD CELL COUNT (BEAKER) (test godz=466) 4.94 M/ L 4.20-5.80 HEMOGLOBIN (BEAKER) (test tnkv=742) 16.1 GM/DL 13.0-16.8 HEMATOCRIT (BEAKER) (test dvur=393) 47.1 % 40.0-50.0 MEAN CORPUSCULAR VOLUME (BEAKER) (test paxy=047) 95.4 fL 82.0-98.0 MEAN CORPUSCULAR HEMOGLOBIN (BEAKER) (test bowd=327) 32.6 pg 27.0-33.0 MEAN CORPUSCULAR HEMOGLOBIN CONC (BEAKER) (test sydy=168) 34.2 GM/DL 32.0-36.0 RED CELL DISTRIBUTION WIDTH (BEAKER) (test zmoa=934) 11.9 % 10.3-14.2 PLATELET COUNT (BEAKER) (test znqn=963) 251 K/CU MM 150-430 MEAN PLATELET VOLUME (BEAKER) (test ixcs=020) 5.7 fL 6.5-10.5 NUCLEATED RED BLOOD CELLS (BEAKER) (test cugr=808) 0 /100 WBC 0-0 NEUTROPHILS RELATIVE PERCENT (BEAKER) (test ndef=975) 76 % LYMPHOCYTES RELATIVE PERCENT (BEAKER) (test aobp=590) 18 % MONOCYTES RELATIVE PERCENT (BEAKER) (test ytrx=769) 5 % EOSINOPHILS RELATIVE PERCENT (BEAKER) (test picj=225) 0 % BASOPHILS RELATIVE PERCENT (BEAKER) (test inix=447) 0 % NEUTROPHILS ABSOLUTE COUNT (BEAKER) (test mrpf=030) 8.04 K/ L 1.80-8.00 LYMPHOCYTES ABSOLUTE COUNT (BEAKER) (test fgbg=324) 1.88 K/ L 1.48-4.50 MONOCYTES ABSOLUTE COUNT (BEAKER) (test kztr=324) 0.53 K/ L 0.00-1.30 EOSINOPHILS ABSOLUTE COUNT (BEAKER) (test opah=704) 0.04 K/ L 0.00-0.50 BASOPHILS ABSOLUTE COUNT (BEAKER) (test pcvc=246) 0.02 K/ L 0.00-0.20 0.00CBC W/PLT COUNT & AUTO [id number] 06:13:00* Test Item Value Reference Range Comments WHITE BLOOD CELL COUNT (BEAKER) (test tjnj=581) 6.8 K/ L 4.0-10.0 RED BLOOD CELL COUNT (BEAKER) (test vhzz=128) 4.60 M/ L 4.20-5.80 HEMOGLOBIN (BEAKER) (test uxvk=635) 14.9 GM/DL 13.0-16.8 HEMATOCRIT (BEAKER) (test drfz=626) 44.5 % 40.0-50.0 MEAN CORPUSCULAR VOLUME (BEAKER) (test ufoj=301) 96.6 fL 82.0-98.0 MEAN CORPUSCULAR HEMOGLOBIN (BEAKER) (test jlsc=864) 32.3 pg 27.0-33.0 MEAN CORPUSCULAR HEMOGLOBIN CONC (BEAKER) (test ljso=555) 33.5 GM/DL 32.0-36.0 RED CELL DISTRIBUTION WIDTH (BEAKER) (test cxea=975) 11.9 % 10.3-14.2 PLATELET COUNT (BEAKER) (test evud=722) 167 K/CU MM 150-430 MEAN PLATELET VOLUME (BEAKER) (test hrnr=684) 6.0 fL 6.5-10.5 NUCLEATED RED BLOOD CELLS (BEAKER) (test elnm=393) 0 /100 WBC 0-0 NEUTROPHILS RELATIVE PERCENT (BEAKER) (test hyxj=224) 65 % LYMPHOCYTES RELATIVE PERCENT (BEAKER) (test cjve=635) 27 % MONOCYTES RELATIVE PERCENT (BEAKER) (test czms=443) 7 % EOSINOPHILS RELATIVE PERCENT (BEAKER) (test jhbi=531) 1 % BASOPHILS RELATIVE PERCENT (BEAKER) (test xbxz=600) 0 % NEUTROPHILS ABSOLUTE COUNT (BEAKER) (test sznf=560) 4.45 K/ L 1.80-8.00 LYMPHOCYTES ABSOLUTE COUNT (BEAKER) (test tiuo=542) 1.84 K/ L 1.48-4.50 MONOCYTES ABSOLUTE COUNT (BEAKER) (test rvrq=478) 0.48 K/ L 0.00-1.30 EOSINOPHILS ABSOLUTE COUNT (BEAKER) (test bpja=572) 0.04 K/ L 0.00-0.50 BASOPHILS ABSOLUTE COUNT (BEAKER) (test sofi=898) 0.00 K/ L 0.00-0.20 [id number] 05:58:00* Test Item Value Reference Range Comments PHOSPHORUS (BEAKER) (test hrqw=502) 4.1 mg/dL 2.3-4.7 BASIC METABOLIC [id number] 05:58:00* Test Item Value Reference Range Comments SODIUM (BEAKER) (test iali=176) 138 meq/L 136-145 POTASSIUM (BEAKER) (test dpld=944) 4.4 meq/L 3.5-5.1 CHLORIDE (BEAKER) (test voxq=949) 107 meq/L 98-107 CO2 (BEAKER) (test kbwz=496) 22 meq/L 22-29 BLOOD UREA NITROGEN (BEAKER) (test rlxi=243) 13 mg/dL 7-21 CREATININE (BEAKER) (test gkue=727) 1.04 mg/dL 0.57-1.25 GLUCOSE RANDOM (BEAKER) (test nvks=779) 87 mg/dL 70-105 CALCIUM (BEAKER) (test urla=155) 9.1 mg/dL 8.4-10.2 EGFR (BEAKER) (test wjfb=3490) 77 mL/min/1.73 sq m ESTIMATED GFR IS NOT ACCURATE CREATININE CLEARANCE IN PREDICTING GLOMERULAR FILTRATION RATE. ESTIMATED GFR IS NOT APPLICABLE FOR DIALYSIS PATIENTS. HEPATIC FUNCTION [id number] 05:58:00* Test Item Value Reference Range Comments TOTAL PROTEIN (BEAKER) (test ccbl=228) 6.5 gm/dL 6.0-8.3 ALBUMIN (BEAKER) (test iqif=9994) 4.0 g/dL 3.5-5.0 BILIRUBIN TOTAL (BEAKER) (test ohke=299) 0.8 mg/dL 0.2-1.2 BILIRUBIN DIRECT (BEAKER) (test xarg=925) 0.3 mg/dL 0.1-0.5 ALKALINE PHOSPHATASE (BEAKER) (test guto=948) 44 U/L 40-150 AST (SGOT) (BEAKER) (test tjtb=760) 11 U/L 5-34 ALT (SGPT) (BEAKER) (test gyru=500) 15 U/L 6-55 SEDIMENTATION [id number] 11:40:00* Test Item Value Reference Range Comments SEDIMENTATION RATE, ERYTHROCYTE (BEAKER) (test pbwj=437) 8 mm/HR 0-15 [id number] 04:48:00* Test Item Value Reference Range Comments PHOSPHORUS (BEAKER) (test pmst=601) 4.2 mg/dL 2.3-4.7 BASIC METABOLIC [id number] 04:48:00* Test Item Value Reference Range Comments SODIUM (BEAKER) (test sxux=477) 135 meq/L 136-145 POTASSIUM (BEAKER) (test cakh=719) 4.1 meq/L 3.5-5.1 CHLORIDE (BEAKER) (test osaj=407) 106 meq/L 98-107 CO2 (BEAKER) (test xcya=850) 19 meq/L 22-29 BLOOD UREA NITROGEN (BEAKER) (test oaoy=155) 18 mg/dL 7-21 CREATININE (BEAKER) (test acho=511) 1.13 mg/dL 0.57-1.25 GLUCOSE RANDOM (BEAKER) (test hdem=458) 104 mg/dL 70-105 CALCIUM (BEAKER) (test falb=467) 9.2 mg/dL 8.4-10.2 EGFR (BEAKER) (test njgc=3438) 70 mL/min/1.73 sq m ESTIMATED GFR IS NOT ACCURATE CREATININE CLEARANCE IN PREDICTING GLOMERULAR FILTRATION RATE. ESTIMATED GFR IS NOT APPLICABLE FOR DIALYSIS PATIENTS. HEPATIC FUNCTION [id number] 04:48:00* Test Item Value Reference Range Comments TOTAL PROTEIN (BEAKER) (test osdm=020) 6.4 gm/dL 6.0-8.3 ALBUMIN (BEAKER) (test lzlo=7443) 3.9 g/dL 3.5-5.0 BILIRUBIN TOTAL (BEAKER) (test zbca=686) 1.0 mg/dL 0.2-1.2 BILIRUBIN DIRECT (BEAKER) (test cnyu=934) 0.4 mg/dL 0.1-0.5 ALKALINE PHOSPHATASE (BEAKER) (test hdfn=014) 40 U/L 40-150 AST (SGOT) (BEAKER) (test rfrl=188) 11 U/L 5-34 ALT (SGPT) (BEAKER) (test rjom=319) 14 U/L 6-55 CBC W/PLT COUNT & AUTO [id number] 04:41:00* Test Item Value Reference Range Comments WHITE BLOOD CELL COUNT (BEAKER) (test sruo=999) 8.5 K/ L 4.0-10.0 RED BLOOD CELL COUNT (BEAKER) (test hxbq=052) 4.44 M/ L 4.20-5.80 HEMOGLOBIN (BEAKER) (test vvuf=188) 14.4 GM/DL 13.0-16.8 HEMATOCRIT (BEAKER) (test deiv=971) 41.8 % 40.0-50.0 MEAN CORPUSCULAR VOLUME (BEAKER) (test qnrh=167) 94.2 fL 82.0-98.0 MEAN CORPUSCULAR HEMOGLOBIN (BEAKER) (test csxb=427) 32.5 pg 27.0-33.0 MEAN CORPUSCULAR HEMOGLOBIN CONC (BEAKER) (test dvxj=407) 34.5 GM/DL 32.0-36.0 RED CELL DISTRIBUTION WIDTH (BEAKER) (test rfcv=398) 13.0 % 10.3-14.2 PLATELET COUNT (BEAKER) (test ctxy=878) 195 K/CU MM 150-430 MEAN PLATELET VOLUME (BEAKER) (test kyrz=865) 6.0 fL 6.5-10.5 NUCLEATED RED BLOOD CELLS (BEAKER) (test hzvr=603) 0 /100 WBC 0-0 NEUTROPHILS RELATIVE PERCENT (BEAKER) (test uysa=390) 63 % LYMPHOCYTES RELATIVE PERCENT (BEAKER) (test vziy=216) 28 % MONOCYTES RELATIVE PERCENT (BEAKER) (test qojm=180) 8 % EOSINOPHILS RELATIVE PERCENT (BEAKER) (test lvki=473) 1 % BASOPHILS RELATIVE PERCENT (BEAKER) (test nfqm=211) 1 % NEUTROPHILS ABSOLUTE COUNT (BEAKER) (test qxyw=556) 5.36 K/ L 1.80-8.00 LYMPHOCYTES ABSOLUTE COUNT (BEAKER) (test ayoh=279) 2.37 K/ L 1.48-4.50 MONOCYTES ABSOLUTE COUNT (BEAKER) (test oqrp=707) 0.65 K/ L 0.00-1.30 EOSINOPHILS ABSOLUTE COUNT (BEAKER) (test wbzz=982) 0.10 K/ L 0.00-0.50 BASOPHILS ABSOLUTE COUNT (BEAKER) (test wprd=859) 0.05 K/ L 0.00-0.20 0.00CREATINE KINASE (CK), TOTAL AND [id number] 18:27:00* Test Item Value Reference Range Comments CREATINE KINASE TOTAL (BEAKER) (test fkio=275) 47 U/L 29-200 CREATINE KINASE-MB (BEAKER) (test onzz=803) 0.8 ng/mL 0.0-6.6 CREATINE KINASE-MB INDEX (BEAKER) (test qnht=885) 1.7 % Effective 06/27/2014: CK-MB Reference Range ChangeNew: 0.0-6.6 Previous: 0.0- 4.9CK-MB Reference Range:<6.7 Normal6.7-10.0 Borderline>10.0 Abnormal TROPONIN [id number] 18:27:00* Test Item Value Reference Range Comments TROPONIN I (BEAKER) (test dnov=145) < ng/mL 0.00-0.03 Effective 06/27/2014: Reference Range [...] disease, and pers istent tachyarrhythmia.RAPID DRUG SCREEN, [id number] 15:19:00* Test Item Value Reference Range Comments BARBITURATE URINE (BEAKER) (test kreu=219) Negative Negative BENZODIAZEPINE SCREEN URINE (BEAKER) (test ffbu=089) Negative Negative COCAINE (METAB.) SCREEN (BEAKER) (test erru=2081) Negative Negative METHADONE SCREEN (BEAKER) (test wqtt=2756) Negative Negative OPIATE SCREEN URINE (BEAKER) (test jphg=816) Positive Negative CANNABINOID SCREEN URINE (BEAKER) (test ltot=690) Negative Negative AMPH/METHAMPH SCREEN (BEAKER) (test zzvj=2542) Negative Negative PHENCYCLIDINE SCREEN URINE (BEAKER) (test jzxy=697) Negative Negative OXYCODONE SCREEN URINE (BEAKER) (test sxhy=4524) Negative Negative DRUG CUTOFF CONC.Cocaine 300 ng/mL Cannabinoid 50 ng/mL Benzodiazepine 200 ng/mLBarbiturate 200 ng/mLPh encyclidine 25 ng/mLOpiate 300 ng/mLMethadone 300 ng/mLAmphetamine/ 1000 ng/mL MethamphetamineOxycodone 300 ng/mLEOSINOPHIL SMEAR, [id number] 14:54:00* Test Item Value Reference Range Comments EOSINOPHIL SMEAR, URINE (BEAKER) (test xqdc=5727) No EOS seen No EOS seen URINALYSIS W/ [id number] 14:50:00* Test Item Value Reference Range Comments COLOR (BEAKER) (test xell=877) Yellow CLARITY (BEAKER) (test eiuj=512) Clear SPECIFIC GRAVITY UA (BEAKER) (test kwyt=086) 1.018 1.001-1.035 PH UA (BEAKER) (test rzqj=094) 6.0 5.0-8.0 PROTEIN UA (BEAKER) (test upwo=149) 10 mg/dL Negative GLUCOSE UA (BEAKER) (test dvet=914) Negative Negative KETONES UA (BEAKER) (test sdax=140) 40 mg/dL Negative BILIRUBIN UA (BEAKER) (test phcr=253) Negative Negative BLOOD UA (BEAKER) (test qybf=546) Negative Negative NITRITE UA (BEAKER) (test prem=956) Negative Negative LEUKOCYTE ESTERASE UA (BEAKER) (test qqpv=808) Negative Negative UROBILINOGEN UA (BEAKER) (test fglo=126) 4.0 mg/dL 0.2-1.0 RBC UA (BEAKER) (test umzj=495) 1 /HPF WBC UA (BEAKER) (test gaxm=836) 1 /HPF MUCUS (BEAKER) (test qpqw=7587) Moderate HYALINE CASTS (BEAKER) (test jvvs=070) 2 /LPF SOURCE(BEAKER) (test qhpx=2209) TSH/FREE T4 IF [id number] 13:03:00* Test Item Value Reference Range Comments THYROID STIMULATING HORMONE (BEAKER) (test rjfd=461) 0.56 uIU/mL 0.35-4.94 HEMOGLOBIN [id number] 11:36:00* Test Item Value Reference Range Comments HEMOGLOBIN A1C (BEAKER) (test iuea=529) 4.6 % 4.3-6.1 CREATINE KINASE (CK), TOTAL AND [id number] 10:49:00* Test Item Value Reference Range Comments CREATINE KINASE TOTAL (BEAKER) (test vfqr=893) 46 U/L 29-200 CREATINE KINASE-MB (BEAKER) (test zvxl=219) 0.8 ng/mL 0.0-6.6 CREATINE KINASE-MB INDEX (BEAKER) (test qhig=874) 1.7 % Effective 06/27/2014: CK-MB Reference Range ChangeNew: 0.0-6.6 Previous: 0.0- 4.9CK-MB Reference Range:<6.7 Normal6.7-10.0 Borderline>10.0 Abnormal TROPONIN [id number] 10:49:00* Test Item Value Reference Range Comments TROPONIN I (BEAKER) (test yigk=222) < ng/mL 0.00-0.03 Effective 06/27/2014: Reference Range [...] acidosis, acute neurological disease, and pers istent tachyarrhythmia.[id number] 10:42:00* Test Item Value Reference Range Comments MAGNESIUM (BEAKER) (test avwn=213) 2.3 mg/dL 1.6-2.6 BASIC METABOLIC [id number] 10:42:00* Test Item Value Reference Range Comments SODIUM (BEAKER) (test lntr=314) 139 meq/L 136-145 POTASSIUM (BEAKER) (test whqu=821) 4.0 meq/L 3.5-5.1 CHLORIDE (BEAKER) (test iewr=338) 104 meq/L 98-107 CO2 (BEAKER) (test zdpa=548) 24 meq/L 22-29 BLOOD UREA NITROGEN (BEAKER) (test kbvy=459) 17 mg/dL 7-21 CREATININE (BEAKER) (test vdla=976) 1.17 mg/dL 0.57-1.25 GLUCOSE RANDOM (BEAKER) (test avar=403) 125 mg/dL 70-105 CALCIUM (BEAKER) (test ujba=258) 9.5 mg/dL 8.4-10.2 EGFR (BEAKER) (test gjzw=2766) 67 mL/min/1.73 sq m ESTIMATED GFR IS NOT ACCURATE CREATININE CLEARANCE IN PREDICTING GLOMERULAR FILTRATION RATE. ESTIMATED GFR IS NOT APPLICABLE FOR DIALYSIS PATIENTS. LIPID [id number] 10:42:00* Test Item Value Reference Range Comments TRIGLYCERIDES (BEAKER) (test ljoe=294) 111 mg/dL CHOLESTEROL (BEAKER) (test szaf=259) 163 mg/dL HDL CHOLESTEROL (BEAKER) (test fmkb=346) 40 mg/dL LDL CHOLESTEROL CALCULATED (BEAKER) (test xnkn=596) 101 mg/dL Triglyceride Reference Range: Low Risk <150 Borderline 150-199 High Risk 200-499 Very High Risk >=500Cholesterol Reference Range: Low Risk <200 Borderline 200-239 High Risk >240HDL Cholesterol Reference Range: Low Risk >=60 High Risk <40LDL Cholesterol Reference Range: Optimal <100 Near Optimal 100-129 Borderline 130-159 High 160-189 Very High >=190 HEPATIC FUNCTION [id number] 10:42:00* Test Item Value Reference Range Comments TOTAL PROTEIN (BEAKER) (test acwp=101) 7.1 gm/dL 6.0-8.3 ALBUMIN (BEAKER) (test susv=0719) 4.4 g/dL 3.5-5.0 BILIRUBIN TOTAL (BEAKER) (test chje=312) 1.2 mg/dL 0.2-1.2 BILIRUBIN DIRECT (BEAKER) (test azfl=517) 0.4 mg/dL 0.1-0.5 ALKALINE PHOSPHATASE (BEAKER) (test howj=454) 45 U/L 40-150 AST (SGOT) (BEAKER) (test ckiv=338) 10 U/L 5-34 ALT (SGPT) (BEAKER) (test eewp=153) 12 U/L 6-55 C-REACTIVE [id number] 10:42:00* Test Item Value Reference Range Comments C-REACTIVE PROTEIN (BEAKER) (test nvuc=135) 0.33 mg/dL 0.00-0.50 CBC W/PLT COUNT & AUTO [id number] 10:26:00* Test Item Value Reference Range Comments WHITE BLOOD CELL COUNT (BEAKER) (test apxk=936) 10.7 K/ L 4.0-10.0 RED BLOOD CELL COUNT (BEAKER) (test nqfd=327) 4.66 M/ L 4.20-5.80 HEMOGLOBIN (BEAKER) (test podc=437) 15.5 GM/DL 13.0-16.8 HEMATOCRIT (BEAKER) (test clhw=450) 43.8 % 40.0-50.0 MEAN CORPUSCULAR VOLUME (BEAKER) (test zimr=478) 94.1 fL 82.0-98.0 MEAN CORPUSCULAR HEMOGLOBIN (BEAKER) (test ptxu=215) 33.3 pg 27.0-33.0 MEAN CORPUSCULAR HEMOGLOBIN CONC (BEAKER) (test tvtv=338) 35.4 GM/DL 32.0-36.0 RED CELL DISTRIBUTION WIDTH (BEAKER) (test jxbb=831) 12.9 % 10.3-14.2 PLATELET COUNT (BEAKER) (test bifw=290) 192 K/CU MM 150-430 MEAN PLATELET VOLUME (BEAKER) (test acyu=008) 5.7 fL 6.5-10.5 NUCLEATED RED BLOOD CELLS (BEAKER) (test uzfh=954) 0 /100 WBC 0-0 NEUTROPHILS RELATIVE PERCENT (BEAKER) (test esqg=430) 79 % LYMPHOCYTES RELATIVE PERCENT (BEAKER) (test grmo=666) 15 % MONOCYTES RELATIVE PERCENT (BEAKER) (test borl=849) 5 % EOSINOPHILS RELATIVE PERCENT (BEAKER) (test pksy=683) 0 % BASOPHILS RELATIVE PERCENT (BEAKER) (test fwrc=361) 0 % NEUTROPHILS ABSOLUTE COUNT (BEAKER) (test qwrp=273) 8.44 K/ L 1.80-8.00 LYMPHOCYTES ABSOLUTE COUNT (BEAKER) (test hktm=555) 1.65 K/ L 1.48-4.50 MONOCYTES ABSOLUTE COUNT (BEAKER) (test rzsc=163) 0.55 K/ L 0.00-1.30 EOSINOPHILS ABSOLUTE COUNT (BEAKER) (test edul=632) 0.05 K/ L 0.00-0.50 BASOPHILS ABSOLUTE COUNT (BEAKER) (test qfsi=082) 0.05 K/ L 0.00-0.20 0.00CREATINE KINASE (CK), TOTAL AND [id number] 02:08:00* Test Item Value Reference Range Comments CREATINE KINASE TOTAL (BEAKER) (test nkes=199) 50 U/L 29-200 CREATINE KINASE-MB (BEAKER) (test heno=541) 0.7 ng/mL 0.0-6.6 CREATINE KINASE-MB INDEX (BEAKER) (test lytl=748) 1.4 % Effective 06/27/2014: CK-MB Reference Range ChangeNew: 0.0-6.6 Previous: 0.0- 4.9CK-MB Reference Range:<6.7 Normal6.7-10.0 Borderline>10.0 Abnormal TROPONIN [id number] 02:08:00* Test Item Value Reference Range Comments TROPONIN I (BEAKER) (test qnqx=655) 0.01 ng/mL 0.00-0.03 Effective 06/27/2014: Reference Range [...] acidosis, acute neurological disease, and pers istent tachyarrhythmia.[id number] 01:36:00* Test Item Value Reference Range Comments D-DIMER QUANTITATIVE (BEAKER) (test ogfj=932) < MG/L FEU <0.50 Intended Use: The D-Dimer Assay can be used to aid in the diagnosis of Deep Vein Thrombosis (DVT) and Pulmonary Embolism Disease (PED).In patients with low pre- test probability, various studies concerning STA Liatest D-dimer test have repor dionisio that with a cutoff value of 0.50 MG/L FEU, the Negative Predictive Value (TOP SPOTTER V) regarding the exclusion of thrombosis is within 95-100% range.COMPREHENSIVE METABOLIC [id number] 21:22:00* Test Item Value Reference Range Comments TOTAL PROTEIN (BEAKER) (test hgxh=910) 7.6 gm/dL 6.0-8.3 ALBUMIN (BEAKER) (test edca=9149) 4.6 g/dL 3.5-5.0 ALKALINE PHOSPHATASE (BEAKER) (test pgdi=938) 51 U/L 40-150 BILIRUBIN TOTAL (BEAKER) (test zurr=561) 0.9 mg/dL 0.2-1.2 SODIUM (BEAKER) (test ncnj=510) 139 meq/L 136-145 POTASSIUM (BEAKER) (test vsfw=433) 3.8 meq/L 3.5-5.1 CHLORIDE (BEAKER) (test vxan=246) 106 meq/L 98-107 CO2 (BEAKER) (test cvxm=582) 21 meq/L 22-29 BLOOD UREA NITROGEN (BEAKER) (test mtjq=950) 12 mg/dL 7-21 CREATININE (BEAKER) (test kosp=830) 1.05 mg/dL 0.57-1.25 GLUCOSE RANDOM (BEAKER) (test pewd=828) 99 mg/dL 70-105 CALCIUM (BEAKER) (test wgim=218) 9.8 mg/dL 8.4-10.2 AST (SGOT) (BEAKER) (test snwg=008) 11 U/L 5-34 ALT (SGPT) (BEAKER) (test pswd=781) 16 U/L 6-55 EGFR (ALEXSANDERAKER) (test ztqw=5842) mL/min/1.73 sq m INSUFFICIENT CLINICAL DATA TO CALCULATE ESTIMATED GFR. PT/[id number] 21:19:00* Test Item Value Reference Range Comments PROTIME (JEANNIE) (test pfjq=876) 12.7 seconds 11.7-14.7 INR (ALEXSANDERAKER) (test zoql=576) 1.0 <=5.9 PARTIAL THROMBOPLASTIN TIME (ALEXSANDERAKER) (test nght=522) 25.3 seconds 22.5-36.0 RECOMMENDED COUMADIN/WARFARIN INR THERAPY RANGESSTANDARD DOSE: 2.0 - 3.0 Inclu odin: PROPHYLAXIS for venous thrombosis, systemic embolization; TREATMENT for dipti ous thrombosis and/or pulmonary embolus.HIGH RISK: Target INR is 2.5-3.5 for pat ients with mechanical heart valves.CREATINE KINASE (CK), TOTAL AND [id number] 21:17:00* Test Item Value Reference Range Comments CREATINE KINASE TOTAL (JEANNIE) (test oxqf=093) 52 U/L 29-200 CREATINE KINASE-MB (ALEXSANDERAKER) (test pnrr=823) 0.7 ng/mL 0.0-6.6 CREATINE KINASE-MB INDEX (JEANNIE) (test zxxe=714) 1.3 % Effective 06/27/2014: CK-MB Reference Range ChangeNew: 0.0-6.6 Previous: 0.0- 4.9CK-MB Reference Range:<6.7 Normal6.7-10.0 Borderline>10.0 Abnormal TROPONIN [id number] 21:17:00* Test Item Value Reference Range Comments TROPONIN I (JEANNIE) (test mmyg=116) < ng/mL 0.00-0.03 Effective 06/27/2014: Reference Range [...] pers istent tachyarrhythmia.CBC W/PLT COUNT & AUTO [id number] 20:57:00* Test Item Value Reference Range Comments WHITE BLOOD CELL COUNT (BEAKER) (test ychb=721) 9.7 K/ L 4.0-10.0 RED BLOOD CELL COUNT (BEAKER) (test wtkg=187) 4.90 M/ L 4.20-5.80 HEMOGLOBIN (BEAKER) (test mgti=463) 16.0 GM/DL 13.0-16.8 HEMATOCRIT (BEAKER) (test eslp=212) 45.9 % 40.0-50.0 MEAN CORPUSCULAR VOLUME (BEAKER) (test ukkb=085) 93.8 fL 82.0-98.0 MEAN CORPUSCULAR HEMOGLOBIN (BEAKER) (test olbt=120) 32.7 pg 27.0-33.0 MEAN CORPUSCULAR HEMOGLOBIN CONC (BEAKER) (test kiel=648) 34.9 GM/DL 32.0-36.0 RED CELL DISTRIBUTION WIDTH (BEAKER) (test azqw=318) 12.9 % 10.3-14.2 PLATELET COUNT (BEAKER) (test drrj=220) 195 K/CU MM 150-430 MEAN PLATELET VOLUME (BEAKER) (test dakb=687) 5.7 fL 6.5-10.5 NUCLEATED RED BLOOD CELLS (BEAKER) (test djtz=422) 0 /100 WBC 0-0 NEUTROPHILS RELATIVE PERCENT (BEAKER) (test bmeo=818) 70 % LYMPHOCYTES RELATIVE PERCENT (BEAKER) (test uxim=627) 22 % MONOCYTES RELATIVE PERCENT (BEAKER) (test zbze=803) 7 % EOSINOPHILS RELATIVE PERCENT (BEAKER) (test znwn=260) 1 % BASOPHILS RELATIVE PERCENT (BEAKER) (test wjac=849) 0 % NEUTROPHILS ABSOLUTE COUNT (BEAKER) (test kkgl=268) 6.81 K/ L 1.80-8.00 LYMPHOCYTES ABSOLUTE COUNT (BEAKER) (test hfin=061) 2.13 K/ L 1.48-4.50 MONOCYTES ABSOLUTE COUNT (BEAKER) (test frdh=779) 0.68 K/ L 0.00-1.30 EOSINOPHILS ABSOLUTE COUNT (BEAKER) (test ptsz=765) 0.05 K/ L 0.00-0.50 BASOPHILS ABSOLUTE COUNT (BEAKER) (test ffva=454) 0.01 K/ L 0.00-0.20 0.00
[2019-02-18] MEDS ORDERED: HYDROCODONE/APAP 7.5MG-325MG 1 EA TAB PO PRN (01:30)
--- NOTE | 2019-02-18 01:39 | NUR ---
C-COLLAR PLACED ON PT. NO DISTRESS NOTED.
--- NOTE | 2019-02-18 02:28 | Diagnostic Imaging Report ---
Examination: CT BRAIN WO CONTRAST History:Fall; head injury Comparison studies:04/14/2018 Technique: Axial images were obtained from the skull base to the vertex. Coronal and sagittal images reconstructed from the axial data. Dose modulation, iterative reconstruction, and/or weight based adjustment of the mA/kV was utilized to reduce the radiation dose to as low as reasonably achievable. Intravenous contrast: None Findings: Scalp: No abnormalities. Bones: No fractures, blastic or lytic lesions. Brain sulci: Generalized volume loss for age. Ventricles: Normal in size and configuration. No hydrocephalus. Extra-axial space: No abnormalities. Parenchyma: No abnormal densities. No masses, hemorrhage, or acute or chronic cortical based vascular insults.. Sellar/suprasellar region: No abnormalities. Craniocervical junction: Patent foramen magnum. No Chiari one malformation. Incidental findings: None. Impression: No acute intracranial abnormalities. No change from 04/14/2018. Generalized volume loss for age. Signed by: Dr. Sanjana Katz M.D. on 02/18/2019 2:24 AM
--- NOTE | 2019-02-18 02:30 | Diagnostic Imaging Report ---
Examination: CT CERVICAL SPINE WO HISTORY:Fall; neck injury COMPARISON:None. TECHNIQUE: Multidetector helical axial images were obtained without contrast from the foramen magnum to T1. Coronal and sagittal reformatted images were done. Bone and soft tissue windows were evaluated. Dose modulation, iterative reconstruction, and/or weight based adjustment of the mA/kV was utilized to reduce the radiation dose to as low as reasonably achievable. FINDINGS: Alignment:Normal alignment and lordosis. Vertebrae: Normal height and density. No acute fracture, infection or neoplasm. Disc space heights: Normal height. Caliber of spinal canal: Developmentally normal. Posterior fossa and craniocervical junction: Foramen magnum patent. No Chiari 1 malformation. Soft tissues: No abnormality. Degenerative changes: No disc bulge/ herniation or foraminal or canal stenosis. Visualized lung apices: No abnormalities. IMPRESSION: No acute abnormalities. Signed by: Dr. Sanjana Katz M.D. on 02/18/2019 2:27 AM
--- NOTE | 2019-02-18 03:19 | Diagnostic Imaging Report ---
EXAMINATION: CHEST SINGLE (PORTABLE) INDICATION: Fall COMPARISON: Chest radiograph 09/20/2018 FINDINGS: AP view TUBES and LINES: None. LUNGS: Lungs are well inflated. Lungs are clear. There is no evidence of pneumonia or pulmonary edema. PLEURA: No pleural effusion or pneumothorax. HEART AND MEDIASTINUM: The cardiomediastinal silhouette is unremarkable. BONES AND SOFT TISSUES: No acute osseous lesion. Soft tissues are unremarkable. UPPER ABDOMEN: No free air under the diaphragm. IMPRESSION: No acute thoracic abnormality. Signed by: Moi Bautista DO on 02/18/2019 3:16 AM
--- NOTE | 2019-02-18 03:24 | Diagnostic Imaging Report ---
Thoracic spine radiographs, 3 views, lumbar spine radiographs HISTORY: Pain COMPARISON: None available. DISCUSSION: Some of the osseous structures are partially obscured by stool and bowel gas. Normal normal thoracic and lumbar alignment. There are five non-rib bearing lumbar vertebral bodies. The alignment of the spine is within normal limits. No displaced fracture or compression deformity is identified. Disc Spaces: The disc spaces are well maintained. Mild degenerative changes in the thoracic and lumbar spine. Facets: The facet joints are unremarkable. IMPRESSION: No acute radiographic abnormality. Mild degenerative changes in the thoracic and lumbar spine. Signed by: Moi Bautista DO on 02/18/2019 3:20 AM
[2019-02-18] MEDS ORDERED: KETOROLAC TROMETHAMINE 60 MG/2 ML VIAL IM ONE (03:30)
--- NOTE | 2019-02-18 03:38 | NUR ---
patient demanding stronger pain medications, wants hospital admission for pain managment. States he would like something stronger.
[2019-02-18] MEDS ORDERED: TYLENOL WITH C1 EACH PO (03:41)
[2019-02-18 03:45] VITALS: BP 119/89
[2019-02-18 04:47] LABS: AMPHETAMINES SCREEN,URINE NEGATIVE (NEGATIVE); BENZODIAZEPINES SCREEN,URINE POSITIVE (NEGATIVE); PHENCYCLIDINE SCREEN,URINE NEGATIVE (NEGATIVE)
== END 2019-02-18 04:07 | disposition home or self-care (01) ==
LOC: ER 01:13
DX: S00.83XA Contusion of other part of head, initial encounter (principal); M54.2 Cervicalgia; M54.6 Pain in thoracic spine; M54.5 Low back pain; S16.1XXA Strain of muscle, fascia and tendon at neck level, initial encounter; W01.0XXA Fall on same level from slipping, tripping and stumbling without subsequent striking against object, initial encounter; Y92.008 Other place in unspecified non-institutional (private) residence as the place of occurrence of the external cause
CPT/HCPCS: 70450; 71045; 72072; 72110; 72125; 80307; 99284

== ENCOUNTER 2019-03-30 15:59 | Observation (INO) | payer MEDICARE ==
[~2019-03-30] VITALS: Ht 182.9 cm; Wt 129.3 kg
[~2019-03-30 15:59] MED LIST changes: +TYLENOL WITH C1 EACH PO
--- OUTSIDE RECORDS SUMMARY | 2019-03-30 16:03 | XMS REPORT | Clinical Summary ---
Author Author [facility] Organization [facility] Address Unknown Phone Unavailable Care Team Providers Care Carpenter Assistant Installer Name Role Phone Paula Clay MD PCP Allergies Comments Active Allergy Reactions [...] mouth every tablet morning. Active AFLURIA QUAD [id number], ADM 0.5ML IM 0 PF, 60 mcg/0.5 [...] 8 daily. FOR 5 DAYS 04/14/2018 Discontinued (Stop Taking at Discharge) prazosin (MINIPRESS) 2 MG Take 4 mg by 0 capsule mouth nightly. 04/14/2018 Discontinued (Stop Taking at Discharge) PARoxetine (PAXIL) 20 MG Take 60 mg by 0 tablet mouth every morning. 04/14/2018 Discontinued (Stop Taking at Discharge) lisinopril Take 10 mg by 0 (PRINIVIL,ZESTRIL) 10 mg mouth daily. tablet 04/27/2018 Discontinued divalproex (DEPAKOTE) 500 Take 1,500 mg 0 MG 24 hr tablet by mouth 2 (two) times a day. 04/14/2018 Discontinued (Stop Taking at Discharge) metoprolol tartrate Take 25 mg by 0 (LOPRESSOR) 25 mg tablet mouth daily. 04/14/2018 Discontinued (Stop Taking at Discharge) traZODone (DESYREL) 100 Take 300 mg 0 MG tablet by mouth nightly. 04/14/2018 Discontinued (Stop Taking at Discharge) atorvastatin (LIPITOR) 40 Take 40 mg by 0 MG tablet mouth nightly. 04/14/2018 Discontinued (Stop Taking at Discharge) clopidogrel (PLAVIX) 75 Take 75 mg by 0 mg tablet mouth daily. 04/09/2018 metFORMIN (GLUCOPHAGE) Take 1 tablet 60 tablet 0 1,000 mg tablet (1,000 mg 8 total) by mouth 2 (two) times a day with meals for 30 days. 03/30/2018 Discontinued (Stop Taking at Discharge) glipiZIDE (GLUCOTROL) 10 Take 1 tablet 60 tablet 0 MG tablet (10 mg total) 8 by mouth 2 (two) times a day with meals for 30 days. 04/14/2018 Discontinued (Stop Taking at Discharge) aspirin 81 mg chewable Chew 1 tablet 30 tablet 0 tablet (81 mg total) 8 daily for 30 days. 04/07/2018 traMADol (ULTRAM) 50 mg Take 1 tablet 15 tablet 0 tablet (50 mg total) 8 by mouth every 6 (six) hours as needed for moderate pain for up to 15 days. 04/14/2018 Discontinued (Stop Taking at Discharge) gabapentin (NEURONTIN) Take 900 mg 0 300 mg capsule by mouth 3 (three) times a day. Morning and evening 03/30/2018 Discontinued (Stop Taking at Discharge) gabapentin (NEURONTIN) Take 600 mg 0 300 mg capsule by mouth nightly. 04/14/2018 Discontinued (Stop Taking at Discharge) nortriptyline (PAMELOR) Take 50 mg by 0 50 MG capsule mouth nightly. 03/30/2018 Discontinued (Stop Taking at Discharge) acetaminophen-codeine Take 1-2 15 tablet 0 (TYLENOL WITH CODEINE #3) tablets by 8 300-30 mg per tablet mouth every 6 (six) hours as needed for moderate pain for up to 5 days. 04/27/2018 Discontinued valproic acid (DEPAKENE) Take 1,500 mg 0 250 mg capsule by mouth every morning. 04/12/2018 Discontinued (Discontinued by another clinician) valproic acid (DEPAKENE) Take 500 mg 0 [...] mouth nightly for 30 days. 04/14/2018 Discontinued (Stop Taking at Discharge) HYDROcodone-acetaminophen Take 1 tablet 20 tablet 0 [...] for up to 30 days. 05/02/2018 Discontinued (Stop Taking at Discharge) doxazosin (CARDURA) 1 MG Take 3 90 [...] every morning for 30 days. 04/28/2018 Discontinued (Stop Taking at Discharge) traZODone (DESYREL) 300 Take 1 tablet 30 tablet 0 MG tablet (300 mg 8 total) by mouth nightly for 30 days. 04/28/2018 Discontinued (Stop Taking at Discharge) nortriptyline (PAMELOR) Take 1 30 capsule 0 50 MG capsule capsule (50 8 mg total) by mouth nightly for 30 days. 05/14/2018 nitroglycerin (NITROSTAT) Place 1 90 tablet 12 0.4 MG SL tablet tablet (0.4 8 mg total) under the tongue every 5 (five) minutes as needed for chest pain for up to 30 days. 05/13/2018 Discontinued (Stop Taking at Discharge) sennosides-docusate Take 1 tablet 28 tablet 0 [...] for up to 7 days. 07/14/2018 Discontinued (Med List Cleanup) sitaGLIPtin (JANUVIA) 50 Take 50 mg by 0 MG tablet mouth nightly. 08/01/2018 Discontinued (Med List Cleanup) trimethobenzamide (TIGAN) Take 300 mg 0 300 [...] a day for 30 days. 07/14/2018 Discontinued (Med List Cleanup) cyclobenzaprine Take 1 tablet 20 tablet 0 (FLEXERIL) 10 mg tablet (10 mg total) 8 by mouth 2 (two) times a day as needed for muscle spasms for up to 30 days. 07/14/2018 Discontinued (Med List Cleanup) acetaminophen-codeine Take 1-2 10 tablet 0 (TYLENOL WITH CODEINE #3) tablets by 8 300-30 mg per tablet mouth every 6 (six) hours as needed for moderate pain for up to 3 days. 08/01/2018 Discontinued (Med List Cleanup) gabapentin (NEURONTIN) Take 300 mg 0 300 mg capsule by mouth. 08/01/2018 Discontinued (Med List Cleanup) diazePAM (VALIUM) 10 MG TAKE 1/2 TO [...] Bridger Scales Jr., MD Roberts, Matthew Thomas, Sandra [facility] MD Syncope, unspecified syncope type (Primary Dx); [...] 03/29/2018 Emergency General Internal Medicine - 03/30/2018 after 03/29/2018 Immunizations Name Administration Dates Next Due FLUCELVAX QUAD PF (0.5mL 04/28/2018 () syringe) Pneumococcal Conjugate 03/18/2018 () 13-Valent Family History Medical History Relation Name Comments Heart disease Father Heart disease Mother Relation Name Status Comments Father Mother Alive Social History Date Tobacco Use Types Packs/Day Years Used Former Smoker Cigarettes Smokeless Tobacco: Chew Current User Comments: several months Drinks/Week oz/Week Comments Alcohol Use socially No Sex Assigned at Date Recorded Not on file Industry Job Start Date Occupation Not on file Not on file Not on file Travel End Travel History Travel Start No recent travel history available. Last Filed Vital Signs Reading Time Taken Comments Vital Sign 124/78 08/19/2018 12:16 PM SALES CLERK SUPERVISOR Blood Pressure 76 08/19/2018 12:16 PM SALES CLERK SUPERVISOR Pulse 36.4 C (97.5 F) 08/19/2018 12:16 PM SALES CLERK SUPERVISOR Temperature 20 08/19/2018 12:16 PM SALES CLERK SUPERVISOR Respiratory Rate 96% 08/19/2018 12:16 PM SALES CLERK SUPERVISOR Oxygen Saturation - - Inhaled Oxygen Concentration 140 kg (308 lb 10.3 oz) 08/19/2018 12:18 PM SALES CLERK SUPERVISOR Weight 182.9 cm (6') 08/19/2018 12:18 PM SALES CLERK SUPERVISOR Height 41.86 08/19/2018 12:18 PM SALES CLERK SUPERVISOR Body Mass Index Plan of Treatment Health Maintenance Due Date Last Done Comments DIABETIC RETINAL EYE EXAM 1971 DIABETIC FOOT EXAM 1981 INFLUENZA VACCINE 03/10/2019 Implants Device Identifier Shelf Expiration Date Model / Serial / 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 12/08/2019 [id number] / / [id number] Device Vasclr Clsr Baln Cath 10ml Cardiovasc N/A: N/A CARDINAL Lkng Syr 6fr 7fr [facility] [id number] Implants Implanted: 01/25/[address] [facility] (Quantity not on file) Metal Description:plates and screws on the left wrist Procedures Comments Procedure Name Priority Date/Time Associated Diagnosis ECG ED PRELIMINARY Routine 08/19/2018 INTERPRETATION 12:32 PM SALES CLERK SUPERVISOR ECG 12-LEAD STAT 08/19/2018 12:32 PM SALES CLERK SUPERVISOR CT THORACIC SPINE WO STAT 08/17/2018 CONTRAST 2:19 AM SALES CLERK SUPERVISOR CT HEAD WO CONTRAST STAT 08/17/2018 2:15 AM SALES CLERK SUPERVISOR ECG ED PRELIMINARY Routine 08/17/2018 INTERPRETATION 1:51 AM SALES CLERK SUPERVISOR ESTIMATED GFR STAT 08/17/2018 1:51 AM SALES CLERK SUPERVISOR B NATRIURETIC PEPTIDE STAT 08/17/2018 1:51 AM SALES CLERK SUPERVISOR TROPONIN STAT 08/17/2018 1:51 AM SALES CLERK SUPERVISOR COMPREHENSIVE METABOLIC STAT 08/17/2018 PANEL 1:51 AM SALES CLERK SUPERVISOR HC COMPLETE BLD COUNT STAT 08/17/2018 W/AUTO DIFF 1:51 AM SALES CLERK SUPERVISOR ECG 12-LEAD STAT 08/17/2018 12:36 AM SALES CLERK SUPERVISOR URINALYSIS SCREEN AND STAT 08/01/2018 MICROSCOPY, WITH REFLEX 11:00 PM SALES CLERK SUPERVISOR TO CULTURE URINE DRUGS OF ABUSE STAT 08/01/2018 SCREEN 11:00 PM SALES CLERK SUPERVISOR URINE CULTURE STAT 08/01/2018 11:00 PM SALES CLERK SUPERVISOR ESTIMATED GFR STAT 08/01/2018 10:28 PM SALES CLERK SUPERVISOR CREATINE KINASE, TOTAL STAT 08/01/2018 (CPK) 10:28 PM SALES CLERK SUPERVISOR B NATRIURETIC PEPTIDE STAT 08/01/2018 10:28 PM SALES CLERK SUPERVISOR TROPONIN STAT 08/01/2018 10:28 PM SALES CLERK SUPERVISOR MAGNESIUM LEVEL STAT 08/01/2018 10:28 PM SALES CLERK SUPERVISOR PHOSPHORUS LEVEL STAT 08/01/2018 10:28 PM SALES CLERK SUPERVISOR COMPREHENSIVE METABOLIC STAT 08/01/2018 PANEL 10:28 PM SALES CLERK SUPERVISOR HC COMPLETE BLD COUNT STAT 08/01/2018 W/AUTO DIFF 10:28 PM SALES CLERK SUPERVISOR CT CERVICAL SPINE WO STAT 08/01/2018 CONTRAST 10:27 PM SALES CLERK SUPERVISOR CT HEAD WO CONTRAST STAT 08/01/2018 10:25 PM SALES CLERK SUPERVISOR XR FOREARM 2 VW RIGHT STAT 08/01/2018 10:11 PM SALES CLERK SUPERVISOR XR WRIST 3+ VW RIGHT STAT 08/01/2018 10:10 PM SALES CLERK SUPERVISOR XR CHEST 1 VW PORTABLE STAT 08/01/2018 10:10 PM SALES CLERK SUPERVISOR ECG 12-LEAD STAT 08/01/2018 9:48 PM SALES CLERK SUPERVISOR ECG ED PRELIMINARY Routine 08/01/2018 INTERPRETATION 9:39 PM SALES CLERK SUPERVISOR CT ABDOMEN PELVIS WO STAT 07/18/2018 CONTRAST 7:42 PM SALES CLERK SUPERVISOR CT HEAD WO CONTRAST STAT 07/18/2018 7:42 PM SALES CLERK SUPERVISOR XR CHEST 1 VW PORTABLE STAT 07/18/2018 7:22 PM SALES CLERK SUPERVISOR POC GLUCOSE Routine 07/18/2018 7:15 PM SALES CLERK SUPERVISOR ECG 12-LEAD STAT 07/18/2018 7:07 PM SALES CLERK SUPERVISOR ECG ED PRELIMINARY Routine 07/18/2018 INTERPRETATION 6:56 PM SALES CLERK SUPERVISOR CT HEAD WO CONTRAST STAT 07/14/2018 8:45 PM SALES CLERK SUPERVISOR CT CERVICAL SPINE WO STAT 07/14/2018 CONTRAST 8:44 PM SALES CLERK SUPERVISOR ECG ED PRELIMINARY Routine 07/14/2018 INTERPRETATION 1:51 PM SALES CLERK SUPERVISOR ECG 12-LEAD STAT 07/14/2018 12:15 PM SALES CLERK SUPERVISOR ESTIMATED GFR STAT 07/14/2018 12:00 PM SALES CLERK SUPERVISOR PROTHROMBIN TIME WITH INR STAT 07/14/2018 12:00 PM SALES CLERK SUPERVISOR PARTIAL THROMBOPLASTIN STAT 07/14/2018 TIME (PTT) 12:00 PM SALES CLERK SUPERVISOR B NATRIURETIC PEPTIDE STAT 07/14/2018 12:00 PM SALES CLERK SUPERVISOR TROPONIN STAT 07/14/2018 12:00 PM SALES CLERK SUPERVISOR COMPREHENSIVE METABOLIC STAT 07/14/2018 PANEL 12:00 PM SALES CLERK SUPERVISOR HC COMPLETE BLD COUNT STAT 07/14/2018 W/AUTO DIFF 12:00 PM SALES CLERK SUPERVISOR CT THORACIC SPINE WO STAT 07/13/2018 CONTRAST 11:36 PM SALES CLERK SUPERVISOR CT CERVICAL SPINE WO STAT 07/13/2018 CONTRAST 11:35 PM SALES CLERK SUPERVISOR CT LUMBAR SPINE WO STAT 07/13/2018 CONTRAST 11:35 PM SALES CLERK SUPERVISOR CT HEAD WO CONTRAST STAT 07/13/2018 11:34 PM SALES CLERK SUPERVISOR ECG 12-LEAD STAT 07/13/2018 10:50 PM SALES CLERK SUPERVISOR ECG ED PRELIMINARY Routine 07/13/2018 INTERPRETATION 10:32 PM SALES CLERK SUPERVISOR XR CERVICAL SPINE STAT 06/23/2018 COMPLETE 2:42 PM SALES CLERK SUPERVISOR XR LUMBAR SPINE 2 OR 3 VW STAT 06/23/2018 2:42 PM SALES CLERK SUPERVISOR XR CHEST 2 VW STAT 06/23/2018 2:41 PM SALES CLERK SUPERVISOR ECG ED PRELIMINARY Routine 06/23/2018 INTERPRETATION 1:08 PM SALES CLERK SUPERVISOR ECG 12-LEAD STAT 06/23/2018 12:54 PM SALES CLERK SUPERVISOR TROPONIN Timed 06/04/2018 12:46 AM CDT ECG [...] CDT TROPONIN Timed 04/27/2018 4:42 AM CDT [facility], E/M Routine 04/27/2018 30-74 MINUTES [...] POC GLUCOSE Routine 03/29/2018 3:30 PM CDT after 03/29/2018 Results * ECG ED Preliminary Interpretation - Not an Order (08/19/2018 12:32 PM SALES CLERK SUPERVISOR) Only the most recent of 21 results within the time period is included. Narrative Performed At Braxton Ramirez MD 08/20/20186:51 AM ECG ED Preliminary Interpretation - Not an Order Performed by: Braxton Ramirez MD Authorized by: Braxton Ramirez MD ECG reviewed by ED Physician in the absence of a home appliances mechanic: yes Rate: ECG rate:77 ECG rate assessment: normal Rhythm: Rhythm: sinus rhythm Ectopy: Ectopy: none QRS: QRS axis:Normal Conduction: Conduction: abnormal Abnormal conduction: incomplete RBBB ST segments: ST segments:Normal T waves: T waves: normal * ECG 12 lead (08/19/2018 12:32 PM SALES CLERK SUPERVISOR) Only the most recent of 24 results within the time period is included. Ventricular 77 [facility] rate Atrial rate 77 [facility] [place] interval 198 [facility] QRSD interval 114 [...] At Performing Organization Address City/State/Zipcode Phone Number [facility] MUSE [address] [place] [address] * CT Thoracic Spine Wo Contrast (08/17/2018 2:19 AM SALES CLERK SUPERVISOR) Only the most recent of 2 results within the time period is included. Specimen Narrative Performed At EXAM: CT THORACIC SPINE WO CONTRAST [facility] CLINICAL HISTORY: back pain TECHNIQUE: Noncontrast [...] acute osseous abnormality of the thoracic spine. [facility]-[id number] Procedure Note Hm Interface, Radiology Results Incoming - 08/17/2018 2:26 AM SALES CLERK SUPERVISOR EXAM: CT THORACIC SPINE WO CONTRAST CLINICAL [...] acute osseous abnormality of the thoracic spine. [facility]-[id number] Performing Organization Address City/State/Zipcode Phone Number [facility] [address] [place] [address] * CT Head Wo Contrast (08/17/2018 2:15 AM SALES CLERK SUPERVISOR) Only the most recent of 12 results within the time period is included. [...] No CT evidence for acute intracranial abnormality. [id number] Procedure Note Interface, Radiology Results Incoming - 08/17/2018 2:24 AM SALES CLERK SUPERVISOR EXAM: CT HEAD WO CONTRAST CLINICAL HISTORY: [...] No CT evidence for acute intracranial abnormality. [facility]-[id number] Performing Organization Address City/[facility]/Zipcode Phone Number [facility] [address] [place] [address] * Estimated GFR (08/17/2018 1:51 AM SALES CLERK SUPERVISOR) Only the most recent of 16 results within the time period is included. Estimated GFR 80 mL/min/1.73 m2 [facility] Comment: ANASTASIYA QUINN [facility] G1 >=90 Normal or high G2 60-89Mildly decreased T6l02-05 Mildly to moderately decreased E4c24-02 Moderately to severely decreased G4 15-29Severely decreased G5 <15Kidney failure The eGFR was calculated using the Chronic Kidney Disease Epidemiology Collaboration (CKD-EPI) equation. Interpretation is based on recommendations of the National Kidney Foundation-Kidney Disease Outcomes Quality Initiative (NKF-KDOQI) published in 2014. Specimen Plasma specimen Performing Organization Address City/State/Zipcode Phone Number [facility] [address] [place] [address] PATHOLOGY AND GENOMIC MEDICINE [facility] [address] [place], [place] [id number] [place] [address] * Troponin (08/17/2018 1:51 AM SALES CLERK SUPERVISOR) Only the most recent of 29 results within the time period is included. Troponin <0.30 0.00 - 0.30 ng/mL [facility] Comment: [facility] 0.11 - 1.49 [facility] ng[facility] indicate increased risk of acute coronary syndrome. >=1.5 ng/ml Consistent with acute myocardial infarction. The diagnostic value of a single normal or non-diagnostic result is questionable.Serial samples at 2-6 hour intervals are required to rule out acute myocardial injury. Specimen Plasma specimen Performing Organization Address City/State/Zipcode Phone Number [facility] DEPARTMENT OF [address] [facility] [place] [address] PATHOLOGY AND GENOMIC MEDICINE [facility] [address] [place], [place] [id number] [place] [address] * CBC with platelet and differential (08/17/2018 1:51 AM SALES CLERK SUPERVISOR) Only the most recent of 19 results within the time period is included. [facility] WBC 6.1 4.2 - 11.0 k/uL [facility] RBC 4.39 4.04 - 5.86 m/uL [facility] HGB 12.8 (L) 13.0 - 17.3 g/dL [facility] HCT 39.3 34.0 - 45.0 % [facility] MCV 89.5 80.0 - 98.0 fL [facility] MCH 29.2 27.0 - 34.0 pg [facility] MCHC 32.6 31.5 - 36.5 g/dL [facility] RDW - SD 45.1 37.0 - 51.0 fL [facility] MPV 8.9 7.4 - 10.4 fL [facility] Platelet count 217 150 - 400 k/uL [facility] Nucleated RBC 0.00 /100 WBC [facility] Neutrophils 65.3 36.0 - 66.0 % [facility] Lymphocytes 26.2 24.0 - 44.0 % [facility] Monocytes 6.3 (H) 0.0 - 6.0 % [facility] Eosinophils 1.2 0.0 - 6.0 % [facility] Basophils 0.5 0.0 - 1.2 % [facility] Immature 0.5 0.0 - 1.0 % [facility] granulocytes [facility] Specimen Blood Performing Organization Address City/[facility]/Zipcode Phone Number [facility] [address] [place] [address] PATHOLOGY AND GENOMIC MEDICINE [address] * B natriuretic peptide (08/17/2018 1:51 AM SALES CLERK SUPERVISOR) Only the most recent of 15 results within the time period is included. Pathologist [facility] BNP 47 0 - 100 pg/mL [facility] Specimen Blood Performing Organization Address City/[facility] [place] [address] PATHOLOGY AND [facility] MEDICINE [address] * Comprehensive metabolic panel (08/17/2018 1:51 AM SALES CLERK SUPERVISOR) Only the most recent of 15 results within the time period is included. Sodium 141 135 - 150 mEq/L [facility] Potassium 3.8 3.5 - 5.0 mEq/L [facility] Chloride 101 98 - 112 mEq/L [facility] CO2 28 24 - 31 mmol/L [facility] Anion gap 12@ANIO 7 - 15 mEq/L [facility] BUN 8 7 - 18 mg/dL [facility] Creatinine 1.10 0.70 - 1.20 mg/dL [facility] Glucose 165 (H) 65 - 100 mg/dL [facility] Calcium 10.1 8.3 - 10.2 mg/dL [facility] Protein 6.9 6.3 - 8.3 g/dL [facility] Albumin 3.6 3.5 - 5.0 g/dL [facility] A/G ratio 1.1 0.7 - 3.8 [facility] Alkaline 76 0 - 129 U/L [facility] phosphatase [facility] AST 17 10 - 50 U/L [facility] ALT 24 5 - 50 U/L [facility] Total bilirubin <0.3 0.2 - 1.2 mg/dL [facility] Specimen Plasma specimen Performing Organization Address City/[facility] Cent[facility]ode Phone Number [facility] DEPARTMENT [address] [facility] [place] [address] PATHOLOGY AND GENOMIC MEDICINE [place] [id number] [place] [id number] [place] [address] * Urinalysis screen and microscopy, with reflex to culture (08/01/2018 11:00 PM SALES CLERK SUPERVISOR) Only the most recent of 5 results within the time period is included. Specimen site Clean catch [facility] Color, UA Straw [facility] Appearance, UA Clear [facility] Specific 1.008 1.001 - 1.035 [facility] gravity, UA [facility] pH, UA 5.0 5.0 - 8.5 [facility] Protein, UA Negative Negative [facility] Glucose, UA Negative Negative [facility] Ketones, UA Negative Negative [facility] Bilirubin, UA Negative Negative [facility] Blood, UA Negative Negative [facility] Nitrite, UA Negative Negative [facility] Urobilinogen, Negative <2.0 [facility] Leukocyte Negative Negative [facility] esterase, UA [facility] WBC, UA 0-5 0 - 1 /HPF [facility] RBC, UA 0-5 0 - 5 /HPF [facility] Bacteria, UA None seen None seen [facility] Yeast, UA None seen [facility] Yeast with None seen [facility] Specimen Urine Performing Organization Address City/[facility]/Zipcode Phone Number [facility] DEPARTMENT [address] [place] [address] PATHOLOGY AND GENOMIC MEDICINE [address] [place] [address] [facility] * Urine drugs of abuse screen (08/01/2018 11:00 PM SALES CLERK SUPERVISOR) Only the most recent of 2 results within the time period is included. Amphetamine Negative [facility] screen, urine [facility] Methamphetamine Negative [facility] screen, urine [facility] Barbiturate Negative [facility] screen, urine [facility] Benzodiazepine Positive (A) [facility] screen, urine [facility] Cocaine screen, Negative [facility] urine [facility] Methadone Negative [facility] screen, urine [facility] Opiates screen, Negative [facility] urine [facility] Phencyclidine Negative [facility] screen, urine [facility] Cannabinoid Negative [facility] screen, urine [facility] Tricyclic Positive (A) [facility] screen, urine Comment: [facility] Drug screen [facility] concentration of detectability Amphetamines 1000 ng/mL [...] purposes only. Specimen Urine Performing Organization Address [facility] Phone Number [address] [place] [address] PATHOLOGY AND GENOMIC MEDICINE [address] * Urine culture (08/01/2018 11:00 PM SALES CLERK SUPERVISOR) Only the most recent of 5 results within the time period is included. Pathologist [facility] Urine culture SEE COMMENTComment: [facility] Bacteriuria screen negative. [facility] Specimen Urine Performing Organization Address [facility] Phone Number [address] [place] [address] PATHOLOGY AND GENOMIC MEDICINE [address] * Phosphorus level (08/01/2018 10:28 PM SALES CLERK SUPERVISOR) Phosphorus 2.7 2.4 - 4.5 mg/dL [facility] Specimen Plasma specimen Performing Organization Address [facility] Phone Number [address] [place] [address] PATHOLOGY AND GENOMIC MEDICINE [address] * Magnesium level (08/01/2018 10:28 PM SALES CLERK SUPERVISOR) Only the most recent of 3 results within the time period is included. Magnesium 1.8 1.6 - 2.6 mg/dL [facility] Specimen Plasma specimen Performing Organization Address [facility] Phone Number [address] [place] [address] PATHOLOGY AND GENOMIC MEDICINE [address] * Creatine kinase, total (CPK) (08/01/2018 10:28 PM SALES CLERK SUPERVISOR) Only the most recent of 5 results within the time period is included. Creatine kinase 42 39 - 308 U/L [facility] Specimen Plasma specimen Performing Organization Address [facility] Phone Number [address] [place] [address] PATHOLOGY AND GENOMIC MEDICINE [address] * CT Cervical Spine Wo Contrast (08/01/2018 10:27 PM SALES CLERK SUPERVISOR) Only the most recent of 4 results [...] acute osseous abnormality of the cervical spine. [facility]-[id number] Procedure Note Hm Interface, Radiology Results Incoming - 08/01/2018 10:40 PM SALES CLERK SUPERVISOR EXAMINATION: CT CERVICAL SPINE WO CONTRAST CLINICAL [...] acute osseous abnormality of the cervical spine. [facility]-[id number] Performing Organization Address [facility] Cent[facility] Phone Number [facility] [address] [place] [address] * XR Forearm 2 Vw Right (08/01/2018 10:11 PM SALES CLERK SUPERVISOR) Specimen Narrative Performed At EXAMINATION:XR FOREARM 2 VW RIGHT [facility] CLINICAL HISTORY:R forearm pain COMPARISON:None. IMPRESSION: No evidence of acute right forearm fracture or dislocation. Bone mineralization is normal. Forearm soft tissue swelling. [facility]-[id number] Procedure Note Interface, Radiology Results Incoming - 08/01/2018 10:16 PM SALES CLERK SUPERVISOR EXAMINATION: XR FOREARM 2 VW RIGHT CLINICAL HISTORY: R forearm pain COMPARISON: None. IMPRESSION: No evidence of acute right forearm fracture or dislocation. Bone mineralization is normal. Forearm soft tissue swelling. [facility]-[id number] Performing Organization Address [facility] Phone Number [facility] [address] [place] [address] * XR Wrist 3+ Vw Right (08/01/2018 10:10 PM SALES CLERK SUPERVISOR) Specimen Narrative Performed At EXAMINATION:XR WRIST 3VW RIGHT [facility] CLINICAL HISTORY:right wrist pain COMPARISON:None. IMPRESSION: No evidence of acute right wrist fracture or dislocation. Soft tissues are normal. [facility]-[id number] Procedure Note Interface, Radiology Results Incoming - 08/01/2018 10:16 PM SALES CLERK SUPERVISOR EXAMINATION: XR WRIST 3 VW RIGHT CLINICAL HISTORY: right wrist pain COMPARISON: None. IMPRESSION: No evidence of acute right wrist fracture or dislocation. Soft tissues are normal. [facility]-[id number] Performing Organization Address [facility] CentercoAFTER-M[facility]SE Phone Number [facility] [address] [place] [address] * XR Chest 1 Vw Portable (08/01/2018 10:10 PM SALES CLERK SUPERVISOR) Only the most recent of 7 results within the time period is included. Specimen Narrative Performed At EXAMINATION: XR CHEST 1 VW PORTABLE [facility] INDICATION: syncope COMPARISON: 07/18/2018 IMPRESSION: No pulmonary edema or acute airspace disease. No pleural effusion or pneumothorax. Normal cardiomediastinal silhouette for portable technique. [facility]-[id number] Procedure Note Hm Interface, Radiology Results Incoming - 08/01/2018 10:20 PM SALES CLERK SUPERVISOR EXAMINATION: XR CHEST 1 VW PORTABLE INDICATION: syncope COMPARISON: 07/18/2018 IMPRESSION: No pulmonary edema or acute airspace disease. No pleural effusion or pneumothorax. Normal cardiomediastinal silhouette for portable technique. [facility]-[id number] Performing Organization Address City/State/Zipcode Phone Number [facility] [address] [place] [address] * CT Abdomen Pelvis Wo Contrast (07/18/2018 7:42 PM SALES CLERK SUPERVISOR) Specimen Narrative Performed At EXAMINATION:CT ABDOMEN PELVIS [...] correlate for signs of infection. 2.Hepatic steatosis. [facility]-[id number] Procedure Note Interface, Radiology Results Incoming - 07/18/2018 8:00 PM SALES CLERK SUPERVISOR EXAMINATION: CT ABDOMEN PELVIS WO CONTRAST CLINICAL [...] for signs of infection. 2. Hepatic steatosis. [facility]-[id number] Performing Organization Address City/State/Zipcode Phone Number [facility] [address] [place] [address] * POC glucose (07/18/2018 7:15 PM SALES CLERK SUPERVISOR) Only the most recent of 32 results within the time period is included. POC glucose 283 (H) 65 - 100 mg/dL [facility] Comment: BAPTIST QUINN Meter ID: [id number] [facility] Press Clipper: [facility] Specimen Performing Organization Address City/State/Zipcode Phone Number [facility] DEPARTMENT OF [address] * Partial thromboplastin time, activated (07/14/2018 12:00 PM SALES CLERK SUPERVISOR) Only the most recent of 3 results within the time period is included. Pathologist [facility] PTT 31.0 23.0 - 36.0 sec [facility] Comment: BAPTIST SAN PTT therapeutic range for [facility] unfractionated heparin is HOSPITAL 61.0-112.0 seconds which corresponds to Anti-Xa 0.3-0.7 U/ml. Note:Change in Panic Value The PTT Panic Value is changing from 110 sec. to 100 sec. due to new instrumentation and reagents. Correlation studies have been performed to validate this result. Specimen Blood Performing Organization Address City/[facility] Centercode Phone Number [facility] DEPARTMENT OF [address] * Prothrombin time with INR (07/14/2018 12:00 PM SALES CLERK SUPERVISOR) Only the most recent of 5 results within the time period is included. Pathologist [facility] Prothrombin 13.4 11.5 - 14.5 sec [facility] time [facility] INR 1.05 [facility] Comment: ANASTASIYA QUINN For patients on anticoagulant DEREJE therapy, reference ranges HOSPITAL below: Indication: INR Value Treatment of Venous Thrombosis, 2.0-3.0 pulmonary emboli, or prophylaxis of a venous thrombosis, or systemic emboli. High dose, high risk patients 3.0-4.5 with mechanical valves. NOTE:INR values over 3.0 are sometimes associated with gastrointestinal hemorrhage, especially values over 4.0. Specimen Blood Performing Organization Address City/State/Zipcode Phone Number [facility] DEPARTMENT OF [address] * CT Lumbar Spine Wo Contrast (07/13/2018 11:35 PM SALES CLERK SUPERVISOR) Only the most recent of 2 results within the time period is included. Specimen Narrative Performed At EXAMINATION: CT LUMBAR SPINE WO CONTRAST HM [facility] CLINICAL HISTORY: fall. Lumbar spine trauma [...] of acute fracture in the lumbar spine. [facility]-[id number] Procedure Note Hm Interface, Radiology Results - 07/13/2018 11:48 PM SALES CLERK SUPERVISOR EXAMINATION: CT LUMBAR SPINE WO CONTRAST CLINICAL [...] of acute fracture in the lumbar spine. [id number] Performing Organization Address [facility] Centercode Phone Number [employer] [address] [place] [address] * XR Cervical Spine Complete (06/23/2018 2:42 PM SALES CLERK SUPERVISOR) Specimen Narrative Performed At EXAMINATION: XR CERVICAL SPINE COMPLETE [facility] CLINICAL HISTORY: Neck paininitial exam COMPARISON:None IMPRESSION: 5 views of the cervical spine are interpreted. Vertebral heights are preserved. No fracture or aggressive bone lesion is seen. No significant spondylosis is seen. No significant spondylotic canal or foraminal stenosis is suggested. The prevertebral soft tissues are unremarkable. [facility]-[id number] Procedure Note Interface, Radiology Results Incoming - 06/23/2018 2:47 PM SALES CLERK SUPERVISOR EXAMINATION: XR CERVICAL SPINE COMPLETE CLINICAL HISTORY: Neck pain initial exam COMPARISON: None IMPRESSION: 5 views of the cervical spine are interpreted. Vertebral heights are preserved. No fracture or aggressive bone lesion is seen. No significant spondylosis is seen. No significant spondylotic canal or foraminal stenosis is suggested. The prevertebral soft tissues are unremarkable. [facility]-[id number] Performing Organization Address [facility] Phone Number [employer] [address] [place] [address] * XR Lumbar Spine 2 Or 3 Vw (06/23/2018 2:42 PM SALES CLERK SUPERVISOR) Only the most recent of 2 results within the time period is included. Specimen Narrative Performed At EXAMINATION:XR LUMBAR SPINE 2 OR 3 VW [facility] CLINICAL HISTORY:Back [id number] red flagsno prior management COMPARISON:None. IMPRESSION: 3 views of the lumbar spine demonstrate 5 nonrib-bearing lumbar vertebrae with mild disc space narrowing at L4-5 and L5-S1 and moderate disc space narrowing at T11-12 associated with anterior osteophyte formation. There is no definite spondylolysis or spondylolisthesis or compression fracture deformity. [facility]-[id number] Procedure Note Interface, Radiology Results Incoming - 06/23/2018 2:47 PM SALES CLERK SUPERVISOR EXAMINATION: XR LUMBAR SPINE 2 OR 3 [...] spondylolysis or spondylolisthesis or compression fracture deformity. [facility]-[id number] Performing Organization Address [facility] Phone Number [facility] [address] [place] [address] * XR Chest 2 Vw (06/23/2018 2:41 PM SALES CLERK SUPERVISOR) Only the most recent of 5 results within the time period is included. Specimen Narrative Performed At EXAMINATION:XR CHEST 2 VW [facility] CLINICAL HISTORY:Abd traumabluntstable COMPARISON:06/03/2018 IMPRESSION: PA and lateral radiographs of the chest are reviewed. The heart size is normal. Lungs are clear. There is no pleural effusion or pneumothorax. There is no acute osseous abnormality. [facility]-[id number] Procedure Note Interface, Radiology Results Incoming - 06/23/2018 2:46 PM SALES CLERK SUPERVISOR EXAMINATION: XR CHEST 2 VW CLINICAL HISTORY: Abd trauma blunt stable COMPARISON: 06/03/2018 IMPRESSION: PA and lateral radiographs of the chest are reviewed. The heart size is normal. Lungs are clear. There is no pleural effusion or pneumothorax. There is no acute osseous abnormality. [facility]-[id number] Performing Organization Address [facility] Phone Number [facility] [address] [place] [address] * Lipase level (05/20/2018 12:37 AM CDT) Only the most recent of 4 results within the time period is included. Lipase 38 13 - 60 U/L [facility] DEPARTMENT OF PATHOLOGY AND GENOMIC MEDICINE Specimen Plasma specimen Performing Organization Address City/[facility]/Zipcode Phone Number [facility] DEPARTMENT OF [address] [place] [address] PATHOLOGY AND GENOMIC MEDICINE * Lipid panel (05/13/2018 7:28 AM CDT) Only the most recent of 2 results within the time period is included. Cholesterol 168 <200 mg/dL [facility] DEPARTMENT OF PATHOLOGY AND GENOMIC MEDICINE Triglycerides 303 (H) <150 mg/dL [facility] DEPARTMENT OF PATHOLOGY AND GENOMIC MEDICINE HDL cholesterol 34 (L) >40 mg/dL [facility] DEPARTMENT OF PATHOLOGY AND GENOMIC MEDICINE LDL cholesterol 109 (H)Comment: Result <100 mg/dL [facility] obtained by direct LDL DEPARTMENT OF measurement PATHOLOGY AND GENOMIC MEDICINE Lipid panel SeeBelow [facility] interpretation Comment: DEPARTMENT OF Total Cholesterol PATHOLOGY [...] mg/dL) Specimen Plasma specimen Performing Organization Address City/[facility]/Zipcode Phone Number [facility] [place] [address] [place] [address] PATHOLOGY AND GENOMIC MEDICINE * XR Shoulder 2+ Vw Left (05/02/2018 5:58 PM CDT) Specimen Narrative Performed At EXAMINATION:XR SHOULDER 2VW LEFT HM [facility] CLINICAL HISTORY:Shoulder paininitial exam COMPARISON:None. IMPRESSION: There is no evidence of acute left shoulder fracture or dislocation. [facility]-[id number] Procedure Note Hm Interface, Radiology Results Incoming - 05/02/2018 6:08 PM CDT EXAMINATION: XR SHOULDER 2 VW LEFT CLINICAL HISTORY: Shoulder pain initial exam COMPARISON: None. IMPRESSION: There is no evidence of acute left shoulder fracture or dislocation. [facility]-[id number] Performing Organization Address City/[facility]/Zipcode Phone Number [facility] [address] [place] [address] * T4, free (05/02/2018 5:55 AM CDT) Pathologist [facility] T4, free 0.91 0.90 - 1.70 ng/dL [facility] DEPARTMENT OF PATHOLOGY AND BNI Video MEDICINE Specimen Plasma specimen Performing Organization Address [facility]erc[facility] Phone Number [address] [place] [address] PATHOLOGY AND BNI Video MEDICINE * Hemoglobin A1c (05/02/2018 5:55 AM CDT) Only the most recent of 2 results within the time period is included. [facility] Hemoglobin A1C 7.2 (H) 4.0 - 6.0 % [facility] DEPARTMENT Comment: OF PATHOLOGY AND GENOMIC MEDICINE Less than 6% - Goal of therapy for Type II Diabetes Less than 7%-Goal of therapy for Type I Diabetes Less than 8%-Accepta ble control for Type I or Type II Diabetes Greater than 8%-Unacceptabl e control; action indicated. (ADA94) Specimen Blood Performing Organization Address [facility] Centercode Phone Number [address] [place] [address] PATHOLOGY AND BNI Video MEDICINE * Basic metabolic panel (05/02/2018 5:55 AM CDT) Only the most recent of 4 results within the time period is included. Pathologist [facility] Sodium 138 135 - 150 mEq/L [facility] DEPARTMENT OF PATHOLOGY AND GENOMIC MEDICINE Potassium 4.2 3.5 - 5.0 mEq/L [facility] DEPARTMENT OF PATHOLOGY AND GENOMIC MEDICINE Chloride 100 98 - 112 mEq/L [facility] DEPARTMENT OF PATHOLOGY AND GENOMIC MEDICINE CO2 26 24 - 31 mmol/L [facility] DEPARTMENT OF PATHOLOGY AND GENOMIC MEDICINE Anion gap 12@ANIO 7 - 15 mEq/L [facility] DEPARTMENT OF PATHOLOGY AND GENOMIC MEDICINE BUN 11 7 - 18 mg/dL [facility] DEPARTMENT OF PATHOLOGY AND GENOMIC MEDICINE Creatinine 1.10 0.70 - 1.20 mg/dL [facility] DEPARTMENT OF PATHOLOGY AND GENOMIC MEDICINE Glucose 135 (H) 65 - 100 mg/dL [facility] DEPARTMENT OF PATHOLOGY AND GENOMIC MEDICINE Calcium 9.3 8.3 - 10.2 mg/dL [facility] DEPARTMENT OF PATHOLOGY AND GENOMIC MEDICINE Specimen Plasma specimen Performing Organization Address City/State/Zipcode Phone Number [facility] DEPARTMENT [address] [place] [address] PATHOLOGY AND GENOMIC MEDICINE * XR Knee 4+ Vw Left (05/02/2018 12:19 AM CDT) Specimen Narrative Performed At XR KNEE 4VW LEFT [facility] CLINICAL INDICATION:left knee injury COMPARISON:None. IMPRESSION: There is no acute fracture or dislocation. There is no knee joint effusion. There is mild osteoarthrosis of the knee. Osseous mineralization is normal. [facility]-[id number] Procedure Note Interface, Radiology Results Incoming - 05/02/2018 12:27 AM CDT XR KNEE 4 VW LEFT CLINICAL INDICATION: left knee injury COMPARISON: None. IMPRESSION: There is no acute fracture or dislocation. There is no knee joint effusion. There is mild osteoarthrosis of the knee. Osseous mineralization is normal. [facility]-[id number] Performing Organization Address City/[facility]/Zipcode Phone Number [facility] [address] [place] [address] * Alcohol level, blood (04/29/2018 9:40 PM CDT) Alcohol None Detected mg/dL [facility] Comment: DEPARTMENT OF Normal PATHOLOGY AND None GENOMIC Detected MEDICINE Legal Intoxication in [place]80 mg/dL (0.08%) - Whole Blood Toxic Concentration 200 mg/dL (0.2%) Potentially Fatal3 50 - 500 mg/dL (0.35 - 0.5%) Alcohol percent None Detected % [facility] DEPARTMENT OF PATHOLOGY AND GENOMIC MEDICINE Specimen Plasma specimen Performing Organization Address City/State/Zipcode Phone Number [facility] [place] [address] [place] [address] PATHOLOGY AND GENOMIC MEDICINE * Valproic acid level (04/28/2018 1:45 PM CDT) Only the most recent of 6 results within the time period is included. Valproic acid <3.1 (L) 50.0 - 100.0 ug/mL [facility] DEPARTMENT Comment: OF PATHOLOGY Therapeutic Range: AND GENOMIC 50 - 100 ug/mL MEDICINE Specimen Blood Performing Organization Address City/[facility]/Zipcode Phone Number [facility] DEPARTMENT OF [address] [place] [address] PATHOLOGY AND GENOMIC MEDICINE * Keppra (Levetiracetam) level (04/27/2018 2:20 PM CDT) Levetiracetam <2 (L) 12 - 46 ug/mL [facility] Comment: INTERPRETIVE INFORMATION: Keppra (Levetiracetam) Therapeutic Range:12-46 ug/mL Toxic: Not well Established Pharmacokinetics of levetiracetam are affected by renal function. Adverse effects may include somnolence, weakness, headache and vomiting. This levetiracetam (Keppra) immunoassay uses the [employer] reagents, which has known cross-reactivity with the drug brivaracetam (Briviact) and may report inaccurate results. Patients transitioning from levetiracetam to brivaracetam or those who are using both medications should not monitor drug concentrations with the [employer] assay. These patients should be monitored using a validated chromatographic methodology that distinguishes between drugs to determine drug concentrations. Performed by [facility], [address] [place] [address] [email or web address], Kevin Herrera MD - Lab. Director Specimen Serum Performing Organization Address City/[facility]/Zipcode Phone Number [facility] [address] [place] [address] * CRITICAL CARE (04/27/2018 4:14 AM CDT) [...] Narrative Performed At CT ANGIOGRAM PE CHEST [facility] CLINICAL INDICATION: r o PE COMPARISON:Chest radiograph [...] confluent airspace consolidation. 3. Hepatic steatosis. Splenomegaly. [facility]-[id number] Procedure Note Interface, Radiology Results Incoming - 04/27/2018 2:[address] ANGIOGRAM [...] confluent airspace consolidation. 3. Hepatic steatosis. Splenomegaly. [facility]-[id number] Performing Organization Address City/State/Zipcode Phone Number [facility] [address] [place] [address] * D-dimer (04/27/2018 12:44 AM CDT) D-dimer <0.27 0.00 - 0.40 ug/mL [facility] DEPARTMENT Comment: FEU OF PATHOLOGY Units are [...] and malignancies. Specimen Blood Performing Organization Address City/State/Zipcode Phone Number [facility] [address] [place] [address] PATHOLOGY AND GENOMIC MEDICINE * Lactic acid level, SEPSIS - Now and repeat 2x every 3 hours (04/22/2018 1:08 AM CDT) Only the most recent of 2 results within the time period is included. Lactic acid 1.7 0.5 - 2.2 mmol/L [facility] DEPARTMENT OF PATHOLOGY AND GENOMIC MEDICINE Specimen Blood Performing Organization Address City/State/Zipcode Phone Number [facility] [address] [place] [address] PATHOLOGY AND GENOMIC MEDICINE * EEG (routine) (04/14/2018 2:30 PM CDT) Narrative Performed At ROUTINE EEG REPORT Patient Name: Tejinedr Welsh Date of : 1970 Gender: male [...] Narrative Performed At EXAMINATION:MRA NECK WO CONTRAST HM [facility] CLINICAL HISTORY:possible SZ COMPARISON: Carotid Doppler [...] the neck. Motion mildly degrades the exam. [facility]-[id number] Procedure Note Hm Interface, Radiology Results Incoming - 04/13/2018 10:04 [...] the neck. Motion mildly degrades the exam. [facility]-[id number] Performing Organization Address City/[facility]/Zipcode Phone Number [facility] [address] [place] [address] * MRA Head Wo Contrast (04/13/2018 6:44 PM CDT) Specimen Narrative Performed At EXAMINATION:MRA HEAD WO CONTRAST [facility] CLINICAL HISTORY:possible sz COMPARISON:None. TECHNIQUE: Head MRA using 3D emql-ap-bjeimo technique with multi-planar MIP and 3D reconstruction. FINDINGS: There is normal flow-related signal with no significant stenosis or occlusion along bilateral intracranial ICAs, ACAs, and MCAs. The anterior communicating artery complex is unremarkable. There is normal flow-related signal with no significant stenosis or occlusion along bilateral vertebral arteries, basilar artery, cerebellar arteries, and solder deposit operator. The right vertebral artery is dominant. The posterior communicating arteries are not well visualized. There is no evidence of cerebral aneurysm in the proximal alt[place] of [place] within limits of MRA technique. IMPRESSION: Unremarkable head MRA with no significant stenosis or occlusion in the proximal alturas of [place]. [id number] Procedure Note [facility], Radiology Results Incoming - 04/13/2018 7:01 PM CDT EXAMINATION: MRA HEAD WO CONTRAST CLINICAL HISTORY: possible sz COMPARISON: None. TECHNIQUE: Head MRA using 3D egze-wo-lsblbx technique with multi-planar MIP and 3D reconstruction. FINDINGS: There is normal flow-related signal with no significant stenosis or occlusion along bilateral intracranial ICAs, ACAs, and MCAs. The anterior communicating artery complex is unremarkable. There is normal flow-related signal with no significant stenosis or occlusion along bilateral vertebral arteries, basilar artery, cerebellar arteries, and solder deposit operator. The right vertebral artery is dominant. The posterior communicating arteries are not well visualized. There is no evidence of cerebral aneurysm in the proximal alt[place] of [place] within limits of MRA technique. IMPRESSION: Unremarkable head MRA with no significant stenosis or occlusion in the proximal alturas of [place]. [id number] Performing Organization Address [facility] Cent[facility]ode Phone Number [facility] [address] [place] [address] * MRI Brain Wo Contrast (04/13/2018 6:41 PM CDT) Specimen Narrative Performed At [facility] EXAMINATION:MRI BRAIN WO CONTRAST CLINICAL HISTORY:SZ COMPARISON: [...] preserved. IMPRESSION: Unremarkable MRI of the brain. [facility]-[id number] Procedure Note Interface, Radiology Results Incoming - 04/13/2018 10:02 PM CDT EXAMINATION: MRI [...] preserved. IMPRESSION: Unremarkable MRI of the brain. [facility]-[id number] Performing Organization Address [facility] Cent[facility]ode Phone Number [facility] [address] [place] [address] * Urinalysis, automated with microscopy (04/13/2018 12:09 AM CDT) Color, UA Straw [facility] DEPARTMENT OF PATHOLOGY AND GENOMIC MEDICINE Appearance, UA Clear [facility] DEPARTMENT OF PATHOLOGY AND GENOMIC MEDICINE Specific 1.007 1.001 - 1.035 [facility] DEPARTMENT gravity, OF PATHOLOGY AND GENOMIC MEDICINE pH, UA 5.0 5.0 - 8.5 [facility] DEPARTMENT OF PATHOLOGY AND GENOMIC MEDICINE Protein, UA Negative Negative [facility] DEPARTMENT OF PATHOLOGY AND GENOMIC MEDICINE Glucose, UA 3+ (A) Negative [facility] DEPARTMENT OF PATHOLOGY AND GENOMIC MEDICINE Ketones, UA Negative Negative [facility] [place] DEPARTMENT OF PATHOLOGY AND GENOMIC MEDICINE Bilirubin, UA Negative Negative [facility] [place] DEPARTMENT OF PATHOLOGY AND GENOMIC MEDICINE Blood, UA Small (A) Negative [facility] [place] DEPARTMENT OF PATHOLOGY AND GENOMIC MEDICINE Nitrite, UA Negative Negative [facility] [place] DEPARTMENT OF PATHOLOGY AND GENOMIC MEDICINE Urobilinogen, Negative <2.0 [facility] [place] DEPARTMENT UA OF PATHOLOGY AND GENOMIC MEDICINE Leukocyte Negative Negative [facility] [place] DEPARTMENT esterase, UA OF PATHOLOGY AND GENOMIC MEDICINE WBC, UA <1 0 - 1 /HPF [facility] [place] DEPARTMENT OF PATHOLOGY AND GENOMIC MEDICINE RBC, UA 1 0 - 5 /HPF [facility] [place] DEPARTMENT OF PATHOLOGY AND GENOMIC MEDICINE Bacteria, UA None seen None seen [facility] [place] DEPARTMENT OF PATHOLOGY AND GENOMIC MEDICINE Yeast, UA None seen [facility] [place] DEPARTMENT OF PATHOLOGY AND GENOMIC MEDICINE Yeast with None seen [facility] [place] DEPARTMENT pseudohyphae, OF PATHOLOGY UA AND GENOMIC MEDICINE Specimen Urine Performing Organization Address City/[facility] Phone Number [address] [place] [address] PATHOLOGY AND [facility] * Estimated GFR (04/12/2018 10:45 PM CDT) Only the most recent of 3 results within the time period is included. Pathologist [facility] GFR Non Af Amer 80 mL/min/1.73 m2 [facility] [place] DEPARTMENT OF PATHOLOGY AND GENOMIC MEDICINE GFR Af Amer >90 mL/min/1.73 m2 [facility] [place] DEPARTMENT Comment: OF PATHOLOGY Chronic kidney disease: [...] specimen Performing Organization Address City/State/Zipcode Phone Number [address] [place] [phone] PATHOLOGY [facility] * Beta hydroxybutyrate (03/29/2018 4:16 PM CDT) Beta 0.27 0.02 - 0.27 mmol/L [facility] [place] DEPARTMENT hydroxybutyrate OF PATHOLOGY AND GENOMIC MEDICINE Specimen Blood Performing Organization Address City/State/Zipcode Phone Number [address] [place] [address] PATHOLOGY AND GENOMIC MEDICINE after 03/29/2018 Insurance Type Payer Benefit Subscriber ID Effective Phone Address Plan / Dates Group Exchange BCBS EXCHANGE BLUE xxxxxxxxxxxx 2018-P ADVANTAGE resent HMO EXCH Advance Directives For more information, please contact: [phone] Patient Straightedge Man Explanation Type Date Recorded Advance Directives, 05/20/2018 12:52 AM Living Will and Medical Power of City Planning Aide Advance Directives, 07/18/2018 7:47 PM Living Will and Medical Power of City Planning Aide Date Inactivated Comments Code Status Date Activated 04/28/2018 11:40 PM Full Code 04/27/2018 2:10 AM Code Status decision reached by: Patient
--- OUTSIDE RECORDS SUMMARY | 2019-03-30 16:04 | XMS REPORT | Clinical Summary ---
Author Author ELYSE [email or web address] HealthOkairos [facility] Organization 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 11/20/2018 Emergency Cardiology [...] hyperglycemia; Tobacco abuse; Coronary artery disease involving [place]eca-c[place] coronary artery of seneca[place] heart without angina pectoris; Precordial pain 05/29/2018 Emergency Cardiology - 05/31/2018 Mouna Krishna RN Diabetes 05/20/2018 Telephone Cardiology Mouna Krishna RN Diabetes 05/19/2018 Telephone Cardiology Juli Saenz MD Tirukkovalluri, Srilakshmi, MD Agrawal, Neeraj, MD Precordial pain (Primary Dx); Tobacco abuse; History of MD (myocardial infarction); Dizziness; Anxiety; 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 (HCC); PTSD (post-traumatic stress disorder); Hyperglycemia; Type 2 diabetes mellitus treated with insulin ([facility]) 05/07/2018 Hospital Cardiology - Encounter 05/11/2018 05/07/2018 Orders Only General Internal Medicine after 03/29/2018 Immunizations Name Dates Previously Given Next Due [...] 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 05/09/2018 [id number] / / [id number] Closure Sys Perclose Progl 6fr Cardiovasc Right: Groin GARCIA [id number] - [id number] [facility] LAB:VASC Implanted: Qty: 1 on 12/26/2016 [...] ms QTC Calculatio n(Bazett) 418 ms P [place] 26 degrees R [place] 90 degrees T [place] 51 degrees Sinus bradycardi a Rightward axis [...] ms QTC Calculatio n(Bazett) 425 ms P [place] 17 degrees R [place] 40 degrees T [place] 56 degrees Normal sinus rhythm Incomplete right [...] ms QTC Calculatio n(Bazett) 455 ms P [place] 38 degrees R [place] 42 degrees T [place] 42 degrees Sinus rhythm with Possible Premature [...] 12-LEAD STAT 05/07/2018 1:36 PM CDT after 03/29/2018 Results * RHYTHM STRIP - SCAN (11/22/2018 [...] - 110 mg/dL [facility] [address] [facility] [address] Specimen Blood Performing Organization Address City/State/Zipcode Phone Number [address] [phone] [facility] * ECHOCARDIOGRAM REPORT - SCAN (11/20/2018 9:21 PM CDT) Narrative Performed At * Rapid drug screen, urine (11/20/2018 8:15 PM CDT) Only the most recent of 2 results within the time period is included. Barbiturate Screen Negative Negative [facility] Benzodiazepine Screen Negative Negative [facility] Cocaine (Metab.) Screen Negative Negative [facility] Methadone Screen Negative Negative [facility] Opiate Screen Positive (A) Negative [facility] Cannabinoid Screen Negative Negative [facility] Amph/Methamph Screen Negative Negative [facility] Phencyclidine Screen Negative Negative [facility] Oxycodone Screen Negative Negative [facility] Specimen Urine Narrative Performed At [facility] Cocaine 300 ng/mL [facility] Bbevrxougvd20 ng/mL Uvgatvoogohuus785 ng/mL Barbiturate 200 ng/mL Zxjxekimlfcvr16 ng/mL Ybvtqa990 ng/mL Methadone 300 ng/mL Amphetamine/ 1000 ng/mL Methamphetamine Oxycodone 300 ng/mL This assay provides an unconfirmed qualitative test result for the clinical management of patients in emergency situations. Chain of custody not maintained. Some piqy-bzy-fkfaddq medications, as well as adulterants, may cause inaccurate results. Clinical correlation should be applied. A more comprehensive drug screen or confirmation of a detected drug may be performed upon request. Performing Organization Address City/State/Zipcode Phone Number [facility] [address] [place] [address] [facility] * Transthoracic 2D echo w/ doppler (cw/pw/color) (11/20/2018 2:13 PM CDT) Ejection Fraction [facility] Specimen Narrative Performed At Transthoracic Echocardiography Report (TTE) [facility] Demographics [facility] Patient Name Junior SAMUELS of Study 11/20/2018 SAMANTHA [id number] GenderMale Visit Number [id number] RaceUnknown [id number] Number [id number] Number Date of Birth1970 Referring Physician Ayala Teague MD Age48 year(s) Building Custodial Supervisor Physician SARA Hdez Procedure Type of Study [...] Study 11/20/2018 SAMANTHA Gender Male Visit Number [id number] Race Unknown Room Number [id number] Number Date of 1970 Referring Physician Ayala Teague MD Age 48 year(s) Building Custodial Supervisor Manuel Schuster Technology Education Instructor Jaki Cole Interpreting Cara Villalobos Physician Procedure [...] City/State/Zipcode Phone Number [facility] * Troponin I (11/20/2018 12:04 PM CDT) Only the most recent of 10 results within the time period is included. Troponin I <0.01 0.00 - 0.03 ng/mL [facility] Specimen Blood Narrative Performed At Troponin I (TnI) levels must be interpreted in the context of the presenting [facility] symptoms and the clinical findings. Elevated TnI levels indicate myocardial [facility] damage, but are not specific for ischemic heart disease. Elevated TnI levels are seen in patients with other cardiac conditions (including myocarditis and congestive heart failure), and slight TnI elevations occur in patients with other conditions, including sepsis, renal failure, acidosis, acute neurological disease, and persistent tachyarrhythmia. Performing Organization Address City/State/Zipcode Phone Number [facility] [address] [place] [address] [facility] * ECG 12 lead (11/20/2018 5:54 AM CDT) Only the most recent of 6 results within the time period is included. Specimen Narrative Performed At Ventricular Rate 53 BPM GE MUSE Atrial Rate 53 BPM P-R Interval 206 ms QRS Duration 102 ms Q-T Interval 446 ms QTC Calculation(Bazett) 418 ms P [place] 26 degrees R [place] 90 degrees T [place] 51 degrees Sinus bradycardia Nonspecific T wave [...] 446 ms QTC Calculation(Bazett) 418 ms P [place] 26 degrees R [place] 90 degrees T [place] 51 degrees Sinus bradycardia Nonspecific T wave abnormality Abnormal ECG When compared with ECG of 06-JUN-2018 18:44, Vent. rate has decreased BY 44 BPM Criteria for Inferior infarct are no longer Present Nonspecific T wave abnormality, worse in Anterior leads Confirmed by MD Christy Roberto ([id number]) on 11/20/2018 4:23:20 PM Performing Organization Address City/State/Zipcode Phone Number [employer] * Hemoglobin A1c (11/20/2018 4:07 AM CDT) Only the most recent of 2 results within the time period is included. Hemoglobin A1C 7.7 (H) 4.3 - 6.1 % [facility] Specimen Blood Performing Organization Address [facility] Phone Number [address] [address] [facility] * Lipid panel (11/20/2018 4:07 AM CDT) Only the most recent of 3 results within the time period is included. Triglycerides 110 mg/dL [facility] Cholesterol 162 mg/dL [facility] HDL 42 mg/dL [facility] LDL Calculated 98 mg/dL [facility] Specimen Blood Narrative Performed At Triglyceride Reference Range: [facility] Low Risk <150 [facility] [id number] High Risk 200-499 Very High Risk>=500 Cholesterol Reference Range: Low Risk <200 Cmyzfyvuea961-120 High Risk>240 HDL Cholesterol Reference Range: Low Risk >=60 High Risk <40 LDL Cholesterol Reference Range: Optimal<100 Near Avebvgq391-570 Fknqkkncnh937-258 Isdd507-170 Very High >=190 Performing Organization Address City/[facility] Hospital[facility] Phone Number [facility] [address] [place] [address] [facility] * Comprehensive metabolic panel (11/20/2018 4:07 AM CDT) Only the most recent of 2 results within the time period is included. Protein, Total 6.3 6.0 - 8.3 gm/dL [facility] Albumin 3.8 3.5 - 5.0 g/dL [facility] Alkaline Phosphatase 60 40 - 150 U/L [facility] Total Bilirubin 0.3 0.2 - 1.2 mg/dL [facility] Sodium 136 136 - 145 meq/L [facility] Potassium 4.0 3.5 - 5.1 meq/L [facility] Chloride 107 98 - 107 meq/L [facility] CO2 23 22 - 29 meq/L [facility] BUN 18 7 - 21 mg/dL [facility] Creatinine 1.17 0.57 - 1.25 mg/dL [facility] Glucose 131 (H) 70 - 105 mg/dL [facility] Calcium 9.2 8.4 - 10.2 mg/dL [facility] AST 23 5 - 34 U/L [facility] ALT 31 6 - 55 U/L [facility] EGFR 67Comment: ESTIMATED GFR IS mL/min/1.73 sq m [facility] NOT ACCURATE CREATININE [facility] CLEARANCE IN PREDICTING GLOMERULAR FILTRATION RATE. ESTIMATED GFR IS NOT APPLICABLE FOR DIALYSIS PATIENTS. Specimen Blood Performing Organization Address City/State/Zipcode Phone Number [facility] [address] [place] [address] [facility] * CBC with platelet count + automated diff (11/20/2018 1:46 AM CDT) Only the most recent of 8 results within the time period is included. WBC 7.7 3.5 - 10.5 K/L [facility] RBC 4.64 4.63 - 6.08 M/L [facility] Hemoglobin 13.8 13.7 - 17.5 GM/DL [facility] Hematocrit 41.4 40.1 - 51.0 % [facility] MCV 89.2 79.0 - 92.2 fL [facility] MCH 29.7 25.7 - 32.2 pg [facility] MCHC 33.3 32.3 - 36.5 GM/DL [facility] RDW 14.6 (H) 11.6 - 14.4 % [facility] Platelets 190 150 - 450 K/CU MM [facility] MPV 8.4 (L) 9.4 - 12.4 fL [facility] nRBC 0 0 - 0 /100 WBC [facility] % Neutros 66 % [facility] % Lymphs 26 % [facility] % Monos 6 % [facility] % Eos 1 % [facility] % Baso 0 % [facility] # Neutros 5.07 1.78 - 5.38 K/L [facility] # Lymphs 2.00 1.32 - 3.57 K/L [facility] # Monos 0.49 0.30 - 0.82 K/L [facility] # Eos 0.04 0.04 - 0.54 K/L [facility] # Baso 0.03 0.01 - 0.08 K/L [facility] Immature 0 0 - 1 % [facility] Granulocytes-[facility] Specimen Blood Performing Organization Address City/[facility]/[place] [address] [phone] [place] [address] * Magnesium (11/20/2018 1:46 AM CDT) Only the most recent of 5 results within the time period is included. Magnesium 2.2 1.6 - 2.6 mg/dL [facility] Specimen Blood Performing Organization Address City/[facility]/Zipcode Phone Number [address] [address] [facility] * Basic Metabolic Panel (11/20/2018 1:46 AM CDT) Only the most recent of 9 results within the time period is included. Sodium 135 (L) 136 - 145 meq/L [facility] Potassium 3.9 3.5 - 5.1 meq/L [facility] Chloride 106 98 - 107 meq/L [facility] CO2 21 (L) 22 - 29 meq/L [facility] BUN 19 7 - 21 mg/dL [facility] Creatinine 1.20 0.57 - 1.25 mg/dL [facility] Glucose 126 (H) 70 - 105 mg/dL [facility] Calcium 9.1 8.4 - 10.2 mg/dL [facility] EGFR 65Comment: ESTIMATED GFR IS mL/min/1.73 sq m [facility] NOT ACCURATE CREATININE [facility] CLEARANCE IN PREDICTING GLOMERULAR FILTRATION RATE. ESTIMATED GFR IS NOT APPLICABLE FOR DIALYSIS PATIENTS. Specimen Blood Performing Organization Address City/State/Zipcode Phone Number [facility] [address] [place] [address] [facility] * XR knee complete 4 views left (11/20/2018 1:22 AM CDT) Specimen Narrative Performed At FINAL REPORT [facility] CLINICAL HISTORY: Pain 4 views of the left knee are submitted without comparison. There is no acute fracture or malalignment. No destructive bony lesion, significant degenerative change or radiopaque foreign body is present. The surrounding soft tissues are normal. IMPRESSION: No acute abnormality. Signed: Christian Anderson MD Report Verified Date/Time:11/20/2018 01:52:22 Reading Location: [address] Reading Room Procedure Note Interface, External [...] Report Verified Date/Time: 11/20/2018 01:52:22 Reading Location: [address] Reading Room Performing Organization Address [facility] Phone Number RIS * XR chest 1 view portable / bedside (11/20/2018 1:21 AM CDT) Only the most recent of 2 results within the time period is included. Specimen Narrative Performed At FINAL REPORT [facility] History: Shortness of breath. Comparison: 05/07/2018 Findings: A single view of the chest is submitted. The cardiomediastinal contours are unremarkable. There is no focal consolidation, pneumothorax, large pleural effusion or evidence of overt pulmonary edema. There is no acute bony abnormality. Impression: No acute abnormality. Signed: Christian Anderson MD Report Verified Date/Time:11/20/2018 01:59:03 Reading Location: [address] Reading Room Procedure Note Interface, External [...] Report Verified Date/Time: 11/20/2018 01:59:03 Reading Location: [address] Reading Room Performing Organization Address [facility] Phone Number GE [facility] * ECG/EKG Interpretation [...] PM CDT) Ketones, Blood 0.1 <0.4 mmol/L [facility] Specimen Blood Performing Organization Address [facility] Phone Number [facility] [address] [place] [address] [facility] * PT/aPTT (06/04/2018 9:11 PM CDT) Only the most recent of 3 results within the time period is included. Protime 12.5 11.7 - 14.7 seconds [facility] INR 0.9 <=5.9 [facility] PTT 23.9 22.5 - 36.0 seconds [facility] Specimen Blood Narrative Performed At RECOMMENDED COUMADIN/WARFARIN INR THERAPY RANGES [facility] STANDARD DOSE: 2.0 - 3.0 Includes: PROPHYLAXIS for venous thrombosis, [facility] systemic embolization; TREATMENT for venous thrombosis and/or pulmonary embolus. HIGH RISK: Target INR is 2.5-3.5 for patients with mechanical heart valves. Performing Organization Address [facility] Phone Number [facility] [address] [place] [address] [facility] * CT brain without IV contrast (06/04/2018 7:23 PM CDT) Only the most recent of 2 results within the time period is included. Specimen Narrative Performed At FINAL REPORT [employer] CT head without contrast INDICATION: Ataxia, head [...] MD Report Verified Date/Time:06/04/2018 19:34:16 Reading Location: [facility] Radiology Reading Room Procedure Note Interface, [...] Report Verified Date/Time: 06/04/2018 19:34:16 Reading Location: [facility] Radiology Reading Room Performing Organization Address City/State/Zipcode Phone Number GE [facility] * Urinalysis w/Microscopic (05/30/2018 8:31 PM CDT) Color, UA Light Yellow [facility] Clarity, UA Clear [facility] Specific [place], UA 1.013 1.001 - 1.035 [facility] pH, UA 6.0 5.0 - 8.0 [facility] Protein, UA Negative Negative [facility] Glucose, UA >1000 mg/dL (A) Negative [facility] Ketones, UA Negative Negative [facility] Bilirubin, UA Negative Negative [facility] Blood, UA Negative Negative [facility] Nitrite, UA Negative Negative [facility] Leukocytes, UA Negative Negative [facility] Urobilinogen, UA 0.2 0.2 - 1.0 mg/dL [facility] RBC, UA <1 /HPF [facility] WBC, UA 0 /HPF [facility] Specimen Source Urine, Clean Catch [facility] Specimen Urine Performing Organization Address City/State/Zipcode Phone Number [facility] [address] [phone] MEDICAL CENTER * XR spine lumbar complete 4 views min (05/29/2018 6:38 PM CDT) Specimen Narrative Performed At FINAL REPORT [facility] RAD, SPINE, LUMBAR, COMPLETE (MIN 4 VIEWS) [...] MD Report Verified Date/Time:05/29/2018 19:24:24 Reading Location: [facility] C013Y CT Body Reading Room Procedure [...] Report Verified Date/Time: 05/29/2018 19:24:24 Reading Location: [facility] C013Y CT Body Reading Room Performing Organization Address [facility] Hospital[facility] Phone Number GE [facility] * XR pelvis [...] MD Report Verified Date/Time:05/29/2018 19:16:28 Reading Location: [address] Reading Room Procedure Note Interface, External [...] Report Verified Date/Time: 05/29/2018 19:16:28 Reading Location: [address] Reading Room Performing Organization Address [facility] Phone Number GE [facility] * XR ribs with pa chest 3 views min left (05/29/2018 6:33 PM CDT) Specimen Narrative Performed At FINAL REPORT [employer] RAD, RIBS, LEFT \T\ PA CHEST, MIN [...] MD Report Verified Date/Time:05/29/2018 19:12:04 Reading Location: [facility] C0[facility] CT Body Reading Room Procedure Note Interface, [...] Report Verified Date/Time: 05/29/2018 19:12:04 Reading Location: [facility] C013Y CT Body Reading Room Performing Organization Address [facility] Phone Number [facility] * CT spine cervical without IV contrast (05/29/2018 5:34 PM CDT) Specimen Narrative Performed At FINAL REPORT [employer] CT cervical spine without contrast INDICATION: DIZZINESS [...] MD Report Verified Date/Time:05/29/2018 17:30:29 Reading Location: [address] Neuro Reading Room Procedure Note Interface, [...] Report Verified Date/Time: 05/29/2018 17:30:29 Reading Location: [facility] C0[facility] Neuro Reading Room Performing Organization Address City/[facility] Phone Number [facility] * Phosphorus (05/29/2018 4:46 PM CDT) Phosphorus 3.4Comment: Specimen markedly 2.3 - 4.7 mg/dL [facility] hemolyzed [facility] Specimen Blood Performing Organization Address [facility] Phone Number [address] [address] [phone] [place] [address] * Creatine Kinase (CK), Total and MB (05/29/2018 4:46 PM CDT) Only the most recent of 2 results within the time period is included. Total CK 199 29 - 200 U/L [facility] CK-MB 4.8 0.0 - 6.6 ng/mL [facility] MB Relative Index 2.4 % [facility] Specimen Blood Narrative Performed At CK-MB Reference Range: [facility] <6.7Normal [facility] 6.7-10.0Borderline >10.0 Abnormal Performing Organization Address [facility] Phone Number [facility] [address] [place] [address] [facility] * MR brain without IV contrast (05/09/2018 12:49 PM CDT) Specimen Narrative Performed At FINAL REPORT [facility] MRI brain without contrast INDICATION: Headache, dizziness. [...] MD Report Verified Date/Time:05/09/2018 11:23:03 Reading Location: [address] Neuro Reading Room Procedure Note Interface, [...] Report Verified Date/Time: 05/09/2018 11:23:03 Reading Location: [address] Neuro Reading Room Performing Organization Address City/State/Zipcode Phone Number RIS * EEG AWAKE AND DROWSY (05/08/2018 2:27 PM CDT) Specimen Narrative Performed At Neurophysiology Electroencephalogram Report [facility] DATE OF REPORT: 05/08/18 Date(s) of Study: 05/08/2018 ACC: [id number] EE Start time: 05/08/2018 at 13:55 Stop time: 05/08/2018 at 14:16 ICD-10: R56.9 CPT Code: 49816 HISTORY: 47 y old male with h/o [...] REPORT: 05/08/18 Date(s) of Study: 05/08/2018 ACC: [id number] EE Start time: 05/08/2018 at 13:55 Stop time: 05/08/2018 at 14:16 ICD-10: R56.9 CPT Code: 62548 HISTORY: 47 y old male with h/o [...] MS Clinical Neurophysiology/Epilepsy Attending Performing Organization Address City/[facility]/Zipcode Phone Number GE [facility] * B-type Natriuretic Factor (BNP) (05/07/2018 2:01 PM CDT) BNP 20 0 - 100 pg/mL [facility] [place] Specimen Blood Performing Organization Address [facility]/Zipcode Phone Number [place] [phone] [place] [address] MEDICAL [facility]ENTER after 03/29/2018 Insurance Payer Benefit Subscriber ID Type Phone Address Plan / Group [employer]UE [employer] BCBS ADV xxxxxxxxxxxx [phone] [address] [place] [address] EXCHANGE Advance Directives For more information, please contact: [address] [address] Date Inactivated Comments Code Status Date Activated 05/31/2018 2:13 PM Full Code 05/29/2018 8:14 PM This code status was determined by: Patient 05/11/2018 6:00 PM Full Code 05/07/2018 4:35 PM This code status was determined by: Patient 12/27/2016 2:48 PM Full Code 12/25/2016 6:06 AM This code status was determined by: Patient
--- OUTSIDE RECORDS SUMMARY | 2019-03-30 16:05 | XMS REPORT | Continuity of Care Document ---
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 Name Role Phone MaryJane Distribution Information Exchange Unavailable Unavailable Problems Problem Status Onset Date Classification Date Reported Comments Source Wrist pain Active 08/25/2018 Diagnosis 09/11/2018 [facility] Dermatitis due to drug reaction Active 07/23/2018 Diagnosis 09/11/2018 [facility] Acute right otitis media Inactive 07/22/2018 Problem 09/11/2018 [facility] Pain in right shoulder Inactive 07/19/2018 Problem 09/11/2018 [facility] Chronic back pain Active 06/23/2018 Diagnosis 09/11/2018 [...] [facility] 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 Diagnosis 09/11/2018 [facility] Depression, chronic Inactive 03/26/2018 Problem 09/11/2018 [facility] Diabetes mellitus, type II Inactive 02/18/2018 Problem 09/11/2018 [facility] CHEST PAIN Active 11/30/2016 [facility] Chest pain Active Problem 11/16/2018 [facility] Seizure-like activity Active Problem 11/16/2018 [facility] Hypertension Resolved Problem 12/04/2016 [facility] PTSD (Confirmed) Resolved Problem 12/04/2016 [facility] Medications Medication Details Route Status Patient Instructions Ordering Provider Order Date Source Aspirin 81 Mg Tab.chew, 81 Mg Oral Daily Active 09/20/2018 [facility] Doxazosin Mesylate 1 Mg Tablet, 1 Mg Oral Twice A Day Active 09/20/2018 [facility] Glipizide 10 Mg Tablet, 10 Mg Oral Twice A Day Active 09/20/2018 [facility] Lisinopril 10 Mg Tablet, 10 Mg Oral Daily Active 09/20/2018 [facility] Metoprolol Tartrate 50 Mg Tablet, 50 Mg Oral Twice A Day Active 09/20/2018 [facility] Sitagliptin Phosphate (Januvia) 50 Mg Tablet, 50 Mg Oral Daily Active 09/20/2018 [facility] Tiagabine Hcl (Gabitril) 4 Mg Tablet, 4 Mg Oral Twice A Day Active 09/20/2018 [facility] Trazodone Hcl 300 Mg Tablet, 300 Mg Oral Daily Active 09/20/2018 [facility] LANTUS 100 UNIT/ML SUBCUTANEOUS SOLUTION 42 units [...] Doxazosin Mesylate 1 Mg Tablet, Active 04/15/2018 [facility] Glipizide 10 Mg Tablet, 10 Mg Oral Twice A Day Active 04/15/2018 [facility] Linezolid (Zyvox) 600 Mg Tablet, Active 04/15/2018 [facility] Metformin Hcl 1,000 Mg Tablet, 1 Tab Oral Twice A Day Active 04/15/2018 [facility] Metoprolol Tartrate 50 Mg Tablet, 25 Mg Oral Daily Active 04/15/2018 [facility] Doxazosin Mesylate 1 Mg Tablet, Active 04/15/2018 [facility] Glipizide 10 Mg Tablet, 10 Mg Oral Twice A Day Active 04/15/2018 [facility] Linezolid (Zyvox) 600 Mg Tablet, Active 04/15/2018 [facility] Metformin Hcl 1,000 Mg Tablet, 1 Tab Oral Twice A Day Active 04/15/2018 [facility] Metoprolol Tartrate 50 Mg Tablet, 25 Mg Oral Daily Active 04/15/2018 [facility] JANUVIA 100 MG ORAL TABLET [...] tablet By Mouth take at bedtime 03/26/2018 [facility] GLIPIZIDE Takes one tablet Twice a Day No Longer Active Takes one tablet Twice a Day 03/26/2018 [facility] TRAZODONE HCL 1 by mouth every night No Longer Active 1 by mouth every night 03/26/2018 [facility] PAROXETINE HCL Take 3 tablets By Mouth Every Morning No Longer Active Take 3 tablets By Mouth Every Morning 03/26/2018 [facility] GABAPENTIN take three tablets Every Morning and three tablets take at bedtime No Longer Active take three tablets Every Morning and three tablets take at bedtime 03/26/2018 [facility] DIVALPROEX SODIUM ER 500 MG ORAL TABLET EXTENDED RELEASE 24 HOUR Takes 3 tablets in the morning and take at bedtime No Longer Active Takes 3 tablets in the morning and take at bedtime 03/26/2018 [facility] PRAZOSIN HCL Take 2 tablets By Mouth take at bedtime No Longer Active Take 2 tablets By Mouth take at bedtime 03/26/2018 [facility] JANUVIA 100 MG ORAL TABLET 1 tab By Mouth daily No Longer Active 1 tab By Mouth daily 03/26/2018 [facility] LISINOPRIL 1 by mouth every day No Longer Active 1 by mouth every day 03/26/2018 [facility] Imdur 30 mg, Route: PO, Drug form: ERTAB, QAM, Dosing Weight 112.6, kg, Start date: 12/02/16 9:00:00 CDT, Duration: 30 day, Stop date: 12/31/16 9:00:00 CDT No Longer Active 12/02/2016 [facility] atorvastatin 80 mg oral tablet 80 mg=1 tab, PO, Bedtime, # 30 tab, 0 Refill(s) Active 12/01/2016 [facility] Nitroglycerin 0.4 MG Sublingual Tablet 0.4 mg, 1 tab, Route: SL, Drug form: TAB, PRN, Dosing Weight 112.6, kg, PRN Chest Pain, Start date: 12/01/16 16:53:00 CDT, Duration: 30 day, Stop date: 12/31/16 16:52:00 CDTNotes: (Same as:Nitroquick, Nitrostat) "Do Not Crush" Sublingual tablet Inactive 12/01/2016 [facility] Tylenol 650 mg, 2 tab, Route: PO, Drug form: TAB, Q6H, Dosing Weight 112.6, kg, PRN Pain Score 1-3, Start date: 12/01/16 16:53:00 CDT, Duration: 30 day, Stop date: 12/31/16 16:52:00 CDTNotes: Do not exceed 4 gm/day. (Same as: Tylenol) Inactive 12/01/2016 [facility] pneumococcal capsular polysaccharide type 1 vaccine / pneumococcal capsular polysaccharide type 10A vaccine / pneumococcal capsular polysaccharide type 11A vaccine / pneumococcal capsular polysaccharide type 12F vaccine / pneumococcal capsular polysacchar 0.5 mL, Route: IM, Drug Form: INJ, Daily, Start date: 12/01/16 9:00:00 CDT, Duration: 1 doses or times, Stop date: 12/01/16 9:00:00 CDTNotes: (Same as: Pneumovax 23) Refrigerate Inactive 12/01/2016 [facility] Plavix 75 mg, 1 tab, Route: PO, Drug form: TAB, Daily, Dosing Weight 112.6, kg, Start date: 12/01/16 9:00:00 CDT, Duration: 30 day, Stop date: 12/30/16 9:00:00 CDTNotes: (Same As: Plavix) Inactive 12/01/2016 [facility] metoprolol extended release 25 mg, 1 tab, Route: PO, Drug form: ERTAB, Daily, Start date: 12/01/16 9:00:00 CDT, Duration: 30 day, Stop date: 12/30/16 9:00:00 CDTNotes: (Same as: Toprol XL) Do Not Crush Inactive 12/01/2016 [facility] Lisinopril 10 mg, 1 tab, Route: PO, Drug form: TAB, Daily, Dosing Weight 112.6, kg, Start date: 12/01/16 9:00:00 CDT, Duration: 30 day, Stop date: 12/30/16 9:00:00 CDTNotes: (Same as: Prinivil, Zestril) Inactive 12/01/2016 [facility] Aspirin 81 MG Chewable Tablet 81 mg, 1 tab, Route: PO, Drug form: CHEWTAB, Daily, Dosing Weight 112.6, kg, Start date: 12/01/16 9:00:00 CDT, Duration: 30 day, Stop date: 12/30/16 9:00:00 CDTNotes: Take with food. Inactive 12/01/2016 [facility] atorvastatin 80 mg, 1 tab, Route: PO, Drug form: TAB, Bedtime, Dosing Weight 112.6, kg, Start date: 11/30/16 21:00:00 CDT, Duration: 30 day, Stop date: 12/29/16 21:00:00 CDTNotes: Same as Lipitor No Longer Active 12/01/2016 [facility] Nortriptyline 75 mg, 3 cap, Route: PO, Drug form: CAP, Daily, Dosing Weight 112.6, kg, Start date: 11/30/16 21:00:00 CDT, Duration: 30 day, Stop date: 12/30/16 9:00:00 CDTNotes: (Same as:Pamelor, Aventyl) No Longer Active 12/01/2016 [facility] Tylenol 650 mg, 20.3 mL, Route: PO, Drug form: LIQ, ONCE, Dosing Weight 112.6, kg, Start date: 11/30/16 19:04:00 CDT, Stop date: 11/30/16 19:04:00 CDTNotes: Max [id number]=[id number]/day (4 gm/day). (Same as: Tylenol) Inactive 12/01/2016 [facility] Lexapro 10 mg, 1 tab, Route: PO, Drug form: TAB, BID, Dosing Weight 112.6, kg, Start date: 11/30/16 17:00:00 CDT, Duration: 30 day, Stop date: 12/30/16 9:00:00 CDTNotes: (Same as: Lexapro) No Longer Active 11/30/2016 [facility] Nitroglycerin 100 mg, 250 mL, Rate: Titrate, Start Dose: 0.25 microgram/kg/min, Titration: 0.2 microgram/kg/min every 5 minutes, Goal(s): Chest pain and SBP between 100 - 150 mmHg, Max Dose: 3 microgram/kg/min, Route: IV, Dosing Weight 112.6 kg, Total Volume: 250,...Notes: (Same as:Tridil) Final conc=0.4 mg/ml. Premix bottle. No Longer Active 11/30/2016 [facility] Morphine 4 mg, 1 mL, Route: IVP, Drug form: INJ, Q6H, Dosing Weight 112.6, kg, PRN Pain Score 7-10, Start date: 11/30/16 15:10:00 CDT, Duration: 30 day, Stop date: 12/30/16 15:09:00 CDTNotes: (Same as:MORPhine Sulfate) No Longer Active 11/30/2016 [facility] Plavix 300 mg, 1 tab, Route: PO, Drug form: TAB, ONCE, Dosing Weight 112.6, kg, Start date: 11/30/16 14:31:00 CDT, Duration: 1 doses or times, Stop date: 11/30/16 14:31:00 CDTNotes: ( Same as: Plavix) Inactive 11/30/2016 [facility] Aspirin 325 mg, Route: PO, ONCE, Dosing Weight 112.6, kg, Start date: 11/30/16 14:22:00 CDT, Stop date: 11/30/16 14:22:00 CDT Inactive 11/30/2016 [facility] Plavix 300 mg, Route: PO, Drug form: TAB, ONCE, Dosing Weight 112.6, kg, Start date: 11/30/16 14:21:00 CDT, Duration: 1 doses or times, Stop date: 11/30/16 14:21:00 CDT Inactive 11/30/2016 [facility] heparin additive 25,000 unit [12 unit/kg/hr] + Premix Diluent Dextrose 5% 500 mL 500 mL, Rate: 21.98 ml/hr, Infuse over: 22.7 hr, Route: IV, Dosing Weight 91.6 kg, Total Volume: 500 mL, Start date: 11/30/16 13:59:00 CDT, Duration: 30 day, Stop date: 12/30/16 13:58:00 CDT No Longer Active 11/30/2016 [facility] Heparin 60 unit/kg Bolus (Heparin Dosing Weight) Route: IVP, PRN, 4,000 unit, 4 mL, Drug form: INJ, PRN, Heparin Protocol, Start date: 11/30/16 13:59:00 CDT Stop date: 12/30/16 13:58:00 CDT, 30 day No Longer Active 11/30/2016 [facility] Heparin 30 unit/kg Bolus (Heparin Dosing Weight) Route: IVP, PRN, 2,700 unit, 2.7 mL, Drug form: INJ, PRN, Heparin Protocol, Start date: 11/30/16 13:59:00 CDT Stop date: 12/30/16 13:58:00 CDT, 30 day No Longer Active 11/30/2016 [facility] Heparin - one time bolus for ACS 4,000 unit, 4 mL, Route: IVP, Drug form: INJ, ONCE, Dosing Weight 112.6, kg, Priority: STAT, Start date: 11/30/16 13:59:00 CDT, Stop date: 11/30/16 13:59:00 CDT Inactive 11/30/2016 [facility] Aspirin 81 MG Chewable Tablet 81 mg=1 tab, PO, Daily, tab, 0 Refill(s) Active 11/30/2016 [facility] Escitalopram 10 MG Oral Tablet [Lexapro] 10 mg=1 tab, PO, BID, 0 Refill(s) Active 11/30/2016 [facility] nortriptyline 75 mg oral capsule 75 mg=1 cap, PO, Daily, # 90 cap, 0 Refill(s) Active 11/30/2016 [facility] lisinopril 10 mg oral tablet 10 mg=1 tab, PO, Daily, # 30 tab, 0 Refill(s) Active 11/30/2016 [facility] metoprolol extended release 25 mg, PO, Daily, 0 Refill(s) Active 11/30/2016 [facility] Acetaminophen With Codeine (Acetaminophen-Cod #4 Tablet) 1 Each Tablet Three Times A Day Active [facility] Acetaminophen/Codeine Phosphate (Tylenol # 3*) 1 Ea Tab Every 6 Hours Active [facility] Atorvastatin Calcium 40 Mg Tablet Bedtime Active [facility] Clopidogrel Bisulfate (Clopidogrel) 75 Mg Tablet Daily Active [facility] Gabapentin 300 Mg Capsule Three Times A Day Active am, noon and bedtime [facility] Hydrocodone Bit/Acetaminophen (Hydrocodon-Acetaminophn 10-325) 1 Each Tablet Every 6 Hours Active [facility] Lisinopril 10 Mg Tablet Daily Active [facility] Metformin Hcl 500 Mg Tablet Twice A Day Active [facility] Metoprolol Tartrate (Lopressor) 25 Mg Tab Bedtime Active Metoprolol ER 25mg PO QHS [facility] Nortriptyline Hcl 50 Mg Capsule Bedtime Active [facility] Paroxetine Hcl 30 Mg Tablet Before Breakfast Active [facility] Prazosin Hcl 2 Mg Capsule Bedtime Active [facility] Trazodone Hcl 100 Mg Tablet Bedtime Active [facility] Atorvastatin Calcium 80 Mg Tablet Daily Active [facility] Clopidogrel Bisulfate (Clopidogrel) 75 Mg Tablet Daily Active [facility] Diazepam 10 Mg Tablet Twice A Day as needed for Anxiety Active [facility] Doxepin Hcl 25 Mg Capsule Bedtime Active [facility] Eloquis Twice A Day Active [facility] Gabapentin 300 Mg Capsule Three Times A Day Active am, noon and bedtime [facility] Insulin Aspart (Novolog) 100 Unit/1 Ml Cartridge Before Meals Active [facility] Insulin Glargine (Lantus 3ML Pen) 100 Units/1 Ml Inj Twice A Day Active [facility] Levetiracetam (Keppra) 500 Mg Tablet Three Times A Day Active [facility] Lisinopril 2.5 Mg Tablet Daily Active [facility] Metformin Hcl 500 Mg Tablet Twice A Day Active [facility] Metoprolol Succinate 25 Mg Tab.er.24h Daily Active [facility] Nitroglycerin 0.4 Mg Tab.subl Every 5 Minutes as needed for Chest Pain Active X3 DOSES [facility] Nortriptyline Hcl 25 Mg Capsule Bedtime Active [facility] Paroxetine Hcl 30 Mg Tablet Before Breakfast Active [facility] Vybrid Daily Active [facility] Aspirin 81 Mg Tab.chew Daily Active [facility] Atorvastatin Calcium 80 Mg Tablet Daily Active [facility] Diazepam 10 Mg Tablet Daily as needed for Anxiety Active [facility] Doxazosin Mesylate 1 Mg Tablet Twice A Day Active [facility] Doxepin Hcl 25 Mg Capsule Bedtime Active [facility] Glipizide 10 Mg Tablet Twice A Day Active [facility] Metoprolol Succinate 25 Mg Tab.er.24h Daily Active [facility] Metoprolol Tartrate 50 Mg Tablet Twice A Day Active [facility] Nitroglycerin 0.4 Mg Tab.subl Every 5 Minutes as needed for Chest Pain Active X3 DOSES [facility] Nortriptyline Hcl 25 Mg Capsule Bedtime Active [facility] Sitagliptin Phosphate (Januvia) 50 Mg Tablet Daily Active [facility] Tiagabine Hcl (Gabitril) 4 Mg Tablet Twice A Day Active [facility] Trazodone Hcl 300 Mg Tablet Daily Active [facility] DIAZEPAM TAKE 1/2 TO 1 TABLET BY MOUTH DAILY NEEDED FOR ANXIETY Active TAKE 1/2 TO 1 TABLET BY MOUTH DAILY NEEDED FOR ANXIETY [facility] Allergies, Adverse Reactions, Alerts Substance Category Reaction Severity Reaction type Status Date Reported Comments Source MEDROL DOSE PACK drug allergy 02/18/2018 [facility] PENICILLIN drug allergy 02/18/2018 [facility] TORADOL drug allergy 02/18/2018 [facility] TYLENOL WITH CODEINE #3 drug allergy Hives 07/14/2018 [facility] CEFDINIR drug allergy - Generalized itching that resolved with Benadryl. 07/23/2018 [facility] Penicillin Severe Allergy to Substance Active 11/16/2018 [facility] Methylprednisolone Unknown Allergy to Substance Active 11/16/2018 [facility] Ketorolac Unknown Allergy to Substance Active 11/16/2018 [facility] Hydrocodone Mild Allergy to Substance Active 11/16/2018 [facility] Tramadol Unknown Allergy to Substance Active 11/16/2018 [facility] penicillins [facility] Drug allergy Active [facility] Toradol [facility] Drug allergy Active [facility] Immunizations Immunization Date Given Site Status Last Updated Comments Source pneumococcal 23-valent vaccine 12/01/2016 Not Given [facility] Results Order Name Results Value Reference Range Date Interpretation Comments Source Blood leukocytes automated count (number/volume) 8.48 4.8 - 10.8 09/20/2018 [facility] Blood erythrocytes automated count (number/volume) 4.83 4.3 - 5.7 09/20/2018 [facility] Blood hemoglobin measurement (moles/volume) 14.2 14.0 - 18.0 09/20/2018 [facility] Automated blood hematocrit (volume fraction) 40.6 38.2 - 49.6 09/20/2018 [facility] Automated erythrocyte mean corpuscular volume 84.1 81 - 99 09/20/2018 [facility] Automated erythrocyte mean corpuscular hemoglobin (mass per erythrocyte) 29.4 28 - 32 09/20/2018 [facility] Automated erythrocyte mean corpuscular hemoglobin concentration measurement (mass/volume) 35.0 31 - 35 09/20/2018 [facility] RDW BldCo-Rto 14.4 11.7 - 14.4 09/20/2018 [facility] Automated blood platelet count (count/volume) 244 140 - 360 09/20/2018 [facility] Automated blood segmented neutrophil count as percentage of total leukocytes 75.2 38.7 - 80.0 09/20/2018 [facility] Automated blood lymphocyte count as percentage ot total leukocytes 17.7 18.0 - 39.1 09/20/2018 [facility] Automated blood monocyte count as percentage of total leukocytes 5.7 4.4 - 11.3 09/20/2018 [facility] Automated blood eosinophil count as percentage of total leukocytes 0.6 0.0 - 6.0 09/20/2018 [facility] Automated blood basophil count as percentage of total leukocytes 0.6 0.0 - 1.0 09/20/2018 [facility] IM GRANULOCYTES % 0.2 0.0 - 1.0 09/20/2018 [facility] Automated blood neutrophil count 6.4 2.1 - 6.9 09/20/2018 [facility] Blood lymphocytes count (number/volume) 1.5 1.0 - 3.2 09/20/2018 [facility] Blood monocytes automated count (number/volume) 0.5 0.2 - 0.8 09/20/2018 [facility] Automated blood eosinophil count 0.1 0.0 - 0.4 09/20/2018 [facility] Automated blood basophil count (count/volume) 0.1 0.0 - 0.1 09/20/2018 [facility] Absolute Immature Granulocyte (auto 0.02 0 - 0.1 09/20/2018 [facility] Prothrombin time (PT) in platelet poor plasma by coagulation assay 13.2 11.9 - 14.5 09/20/2018 [facility] INR in Platelet poor plasma by Coagulation assay 0.92 09/20/2018 [facility] Activated partial thromboplastin time (aPTT) in platelet poor plasma bycoagulation assay 30.7 23.8 - 35.5 09/20/2018 [facility] Serum or plasma sodium measurement (moles/volume) 132 136 - 145 09/20/2018 [facility] Serum or plasma potassium measurement (moles/volume) 4.6 3.5 - 5.1 09/20/2018 [facility] Serum or plasma chloride measurement (moles/volume) 98 98 - 107 09/20/2018 [facility] Serum or plasma carbon dioxide, total measurement (moles/volume) 20 22 - 29 09/20/2018 [facility] Serum or plasma anion gap 18.6 8 - 16 09/20/2018 [facility] Serum or plasma urea nitrogen measurement (mass/volume) 14 7 - 26 09/20/2018 [facility] Serum or plasma creatinine measurement (mass/volume) 1.48 0.72 - 1.25 09/20/2018 [facility] Serum or plasma urea nitrogen/creatinine mass ratio 9 6 - 25 09/20/2018 [facility] Estimated glomerular filtration rate (GFR) determination 51 60 09/20/2018 [facility] Glucose measurement 399 74 - 118 09/20/2018 [facility] Serum or plasma calcium measurement (mass/volume) 9.7 8.4 - 10.2 09/20/2018 [facility] Serum or plasma total bilirubin measurement (mass/volume) 0.5 0.2 - 1.2 09/20/2018 [facility] Aspartate Amino Transf (AST/SGOT) 22 5 - 34 09/20/2018 [facility] Serum or plasma alanine aminotransferase measurement (enzymatic activity/volume) 25 0 - 55 09/20/2018 [facility] Serum or plasma protein measurement (mass/volume) 7.1 6.5 - 8.1 09/20/2018 [facility] Serum or plasma albumin measurement (mass/volume) 3.9 3.5 - 5.0 09/20/2018 [facility] Plasma globulin measurement (mass/volume) 3.2 2.3 - 3.5 09/20/2018 [facility] Serum or plasma albumin/globulin mass ratio 1.2 0.8 - 2.0 09/20/2018 [facility] Serum or plasma alkaline phosphatase measurement (enzymatic activity/volume) 70 40 - 150 09/20/2018 [facility] BNP Bld-mCnc < 10.0 0 - 100 09/20/2018 [facility] Serum or plasma creatine kinase measurement (enzymatic activity/volume) 38 30 - 200 09/20/2018 [facility] Serum or plasma creatine kinase MB measurement (mass/volume) 0.60 0 - 5.0 09/20/2018 [facility] Troponin I measurement by highly sensitive enzyme immunoassay 0.004 0 - 0.300 09/20/2018 [facility] Urine color determination YELLOW YELLOW 09/20/2018 [facility] Urine clarity CLEAR CLEAR 09/20/2018 [facility] Specific gravity of Urine by Test strip 1.010 1.010 - 1.025 09/20/2018 [facility] Urine pH measurement by automated test strip 6 5 - 7 09/20/2018 [facility] Urine leukocyte esterase detection by dipstick NEGATIVE NEGATIVE 09/20/2018 [facility] Urine nitrite detection NEGATIVE NEGATIVE 09/20/2018 [facility] Urine protein measurement by test strip (mass/volume) NEGATIVE NEGATIVE 09/20/2018 [facility] Urine glucose detection 3+ NEGATIVE 09/20/2018 [facility] Urine ketones detection by automated test strip NEGATIVE NEGATIVE 09/20/2018 [facility] Urine urobilinogen measurement by test strip (mass/volume) 0.2 0.2 - 1 09/20/2018 [facility] Urine total bilirubin measurement (mass/volume) NEGATIVE NEGATIVE 09/20/2018 [facility] Urine erythrocytes detection NEGATIVE NEGATIVE 09/20/2018 [facility] Automated urine sediment leukocyte count by microscopy (number/high power field) NONE 0 - 5 09/20/2018 [facility] Erythrocytes detection in urine sediment by light microscopy NONE 0 - 5 09/20/2018 [facility] Bacteria detection in urine sediment by light microscopy NONE NONE 09/20/2018 [facility] Epithelial cells detection in urine sediment by light microscopy NONE NONE 09/20/2018 [facility] blood glucose, fasting 177 09/09/2018 [facility] blood glucose, random 202 08/25/2018 [facility] blood glucose, random 202 08/25/2018 [facility] benzodiazepine screen, urine Positive [id number]=[id number] 07/23/2018 [facility] amphetamine screen, urine Negative Sjabwz=[id number] 07/23/2018 [facility] cannabinoid screen, urine Negative Cutoff=50 07/23/2018 [facility] phencyclidine screen, urine Negative Cutoff=25 07/23/2018 [facility] cocaine, urine Negative Hhjlsw=915 07/23/2018 [facility] cocaine, urine Negative Ijwcly=263 07/23/2018 [facility] opiates, urine, semiquantitative See Final Results Eltwzf=724 07/23/2018 [facility] barbiturates screen, urine Negative Infnnc=291 07/23/2018 [facility] opiates, urine, semiquantitative See Final Results Qjhnkm=148 07/23/2018 [facility] blood glucose, random 233 07/19/2018 [facility] hemoglobin A1C, blood, as % of total hemoglobin 9.3 07/14/2018 [facility] hemoglobin A1C, blood, as % of total hemoglobin 9.3 07/14/2018 [facility] blood glucose, random 244 06/15/2018 [facility] Serum or plasma magnesium measurement (mass/volume) 2.2 1.3 - 2.1 05/27/2018 [facility] Serum or plasma creatine kinase MB measurement (mass/volume) Serum or plasma creatine kinase MB measurement (mass/volume) 0.40 0 - 5.0 05/06/2018 [facility] Serum or plasma creatine kinase measurement (enzymatic activity/volume) Serum or plasma creatine kinase measurement (enzymatic activity/volume) 58 30 - 200 05/06/2018 [facility] Troponin I measurement by highly sensitive enzyme immunoassay Troponin I measurement by highly sensitive enzyme immunoassay 0.003 0 - 0.300 05/06/2018 [facility] Automated blood basophil count (count/volume) Automated blood basophil count (count/volume) 0.0 0.0 - 0.1 05/06/2018 [facility] Automated blood basophil count as percentage of total leukocytes Automated blood basophil count as percentage of total leukocytes 0.3 0.0 - 1.0 05/06/2018 [facility] Automated blood eosinophil count Automated blood eosinophil count 0.1 0.0 - 0.4 05/06/2018 [facility] Automated blood eosinophil count as percentage of total leukocytes Automated blood eosinophil count as percentage of total leukocytes 0.7 0.0 - 6.0 05/06/2018 [facility] Automated blood hematocrit (volume fraction) Automated blood hematocrit (volume fraction) 33.9 38.2 - 49.6 05/06/2018 [facility] Automated blood lymphocyte count as percentage ot total leukocytes Automated blood lymphocyte count as percentage ot total leukocytes 20.4 18.0 - 39.1 05/06/2018 [facility] Automated blood monocyte count as percentage of total leukocytes Automated blood monocyte count as percentage of total leukocytes 6.0 4.4 - 11.3 05/06/2018 [facility] Automated blood neutrophil count Automated blood neutrophil count 5.0 2.1 - 6.9 05/06/2018 [facility] Automated blood platelet count (count/volume) Automated blood platelet count (count/volume) 154 140 - 360 05/06/2018 [facility] Automated blood segmented neutrophil count as percentage of total leukocytes Automated blood segmented neutrophil count as percentage of total leukocytes 72.2 38.7 - 80.0 05/06/2018 [facility] Automated erythrocyte mean corpuscular hemoglobin (mass per erythrocyte) Automated erythrocyte mean corpuscular hemoglobin (mass per erythrocyte) 32.1 28 - 32 05/06/2018 [facility] Automated erythrocyte mean corpuscular hemoglobin concentration measurement (mass/volume) Automated erythrocyte mean corpuscular hemoglobin concentration measurement (mass/volume) 34.5 31 - 35 05/06/2018 [facility] Automated erythrocyte mean corpuscular volume Automated erythrocyte mean corpuscular volume 92.9 81 - 99 05/06/2018 [facility] Blood erythrocytes automated count (number/volume) Blood erythrocytes automated count (number/volume) 3.65 4.3 - 5.7 05/06/2018 [facility] Blood hemoglobin measurement (moles/volume) Blood hemoglobin measurement (moles/volume) 11.7 14.0 - 18.0 05/06/2018 [facility] Blood leukocytes automated count (number/volume) Blood leukocytes automated count (number/volume) 6.86 4.8 - 10.8 05/06/2018 [facility] Blood lymphocytes count (number/volume) Blood lymphocytes count (number/volume) 1.4 1.0 - 3.2 05/06/2018 [facility] Blood monocytes automated count (number/volume) Blood monocytes automated count (number/volume) 0.4 0.2 - 0.8 05/06/2018 [facility] Estimated glomerular filtration rate (GFR) determination Estimated glomerular filtration rate (GFR) determination >60 60 05/06/2018 [facility] Glucose measurement Glucose measurement 251 74 - 118 05/06/2018 [facility] Plasma globulin measurement (mass/volume) Plasma globulin measurement (mass/volume) 3.0 2.3 - 3.5 05/06/2018 [facility] Serum or plasma alanine aminotransferase measurement (enzymatic activity/volume) Serum or plasma alanine aminotransferase measurement (enzymatic activity/volume) 36 0 - 55 05/06/2018 [facility] Serum or plasma albumin measurement (mass/volume) Serum or plasma albumin measurement (mass/volume) 3.6 3.5 - 5.0 05/06/2018 [facility] Serum or plasma albumin/globulin mass ratio Serum or plasma albumin/globulin mass ratio 1.2 0.8 - 2.0 05/06/2018 [facility] Serum or plasma alkaline phosphatase measurement (enzymatic activity/volume) Serum or plasma alkaline phosphatase measurement (enzymatic activity/volume) 72 40 - 150 05/06/2018 [facility] Serum or plasma anion gap Serum or plasma anion gap 18.0 8 - 16 05/06/2018 [facility] Serum or plasma calcium measurement (mass/volume) Serum or plasma calcium measurement (mass/volume) 9.5 8.4 - 10.2 05/06/2018 [facility] Serum or plasma carbon dioxide, total measurement (moles/volume) Serum or plasma carbon dioxide, total measurement (moles/volume) 21 22 - 29 05/06/2018 [facility] Serum or plasma chloride measurement (moles/volume) Serum or plasma chloride measurement (moles/volume) 100 98 - 107 05/06/2018 [facility] Serum or plasma creatinine measurement (mass/volume) Serum or plasma creatinine measurement (mass/volume) 1.16 0.72 - 1.25 05/06/2018 [facility] Serum or plasma potassium measurement (moles/volume) Serum or plasma potassium measurement (moles/volume) 4.0 3.5 - 5.1 05/06/2018 [facility] Serum or plasma protein measurement (mass/volume) Serum or plasma protein measurement (mass/volume) 6.6 6.5 - 8.1 05/06/2018 [facility] Serum or plasma sodium measurement (moles/volume) Serum or plasma sodium measurement (moles/volume) 135 136 - 145 05/06/2018 [facility] Serum or plasma total bilirubin measurement (mass/volume) Serum or plasma total bilirubin measurement (mass/volume) 0.6 0.2 - 1.2 05/06/2018 [facility] Serum or plasma urea nitrogen measurement (mass/volume) Serum or plasma urea nitrogen measurement (mass/volume) 10 7 - 26 05/06/2018 [facility] Serum or plasma urea nitrogen/creatinine mass ratio Serum or plasma urea nitrogen/creatinine mass ratio 9 6 - 25 05/06/2018 [facility] Red Cell Distribution Width 13.2 11.7 - 14.4 05/06/2018 [facility] IM GRANULOCYTES % 0.4 0.0 - 1.0 05/06/2018 [facility] Absolute Immature Granulocyte (auto 0.03 0 - 0.1 05/06/2018 [facility] Aspartate Amino Transf (AST/SGOT) 27 5 - 34 05/06/2018 [facility] Mucus detection in urine sediment by light microscopy FEW RARE 05/06/2018 [facility] Automated urine sediment leukocyte count by microscopy (number/high power field) Automated urine sediment leukocyte count by microscopy (number/high power field) <5 0 - 5 05/06/2018 [facility] Bacteria detection in urine sediment by light microscopy Bacteria detection in urine sediment by light microscopy NONE NONE 05/06/2018 [facility] Epithelial cells detection in urine sediment by light microscopy Epithelial cells detection in urine sediment by light microscopy NONE NONE 05/06/2018 [facility] Erythrocytes detection in urine sediment by light microscopy Erythrocytes detection in urine sediment by light microscopy <5 0 - 5 05/06/2018 [facility] Mucus detection in urine sediment by light microscopy Mucus detection in urine sediment by light microscopy FEW RARE 05/06/2018 [facility] Specific gravity of Urine by Test strip Specific gravity of Urine by Test strip 1.005 1.010 - 1.025 05/06/2018 [facility] Urine clarity Urine clarity CLEAR CLEAR 05/06/2018 [facility] Urine color determination Urine color determination YELLOW YELLOW 05/06/2018 [facility] Urine erythrocytes detection Urine erythrocytes detection NEGATIVE NEGATIVE 05/06/2018 [facility] Urine glucose detection Urine glucose detection 3+ NEGATIVE 05/06/2018 [facility] Urine ketones detection by automated test strip Urine ketones detection by automated test strip NEGATIVE NEGATIVE 05/06/2018 [facility] Urine leukocyte esterase detection by dipstick Urine leukocyte esterase detection by dipstick NEGATIVE NEGATIVE 05/06/2018 [facility] Urine nitrite detection Urine nitrite detection NEGATIVE NEGATIVE 05/06/2018 [facility] Urine pH measurement by automated test strip Urine pH measurement by automated test strip 6 5 - 7 05/06/2018 [facility] Urine protein measurement by test strip (mass/volume) Urine protein measurement by test strip (mass/volume) NEGATIVE NEGATIVE 05/06/2018 [facility] Urine total bilirubin measurement (mass/volume) Urine total bilirubin measurement (mass/volume) NEGATIVE NEGATIVE 05/06/2018 [facility] Urine urobilinogen measurement by test strip (mass/volume) Urine urobilinogen measurement by test strip (mass/volume) 0.2 0.2 - 1 05/06/2018 [facility] Capillary blood glucose measurement by glucometer (mass/volume) 226 70 - 120 04/16/2018 [facility] Capillary blood glucose measurement by glucometer (mass/volume) Capillary blood glucose measurement by glucometer (mass/volume) 226 70 - 120 04/16/2018 [facility] Capillary blood glucose measurement by glucometer (mass/volume) Capillary blood glucose measurement by glucometer (mass/volume) 226 70 - 120 04/16/2018 [facility] Hemoglobin A1c Percent 7.0 4.0 - 7.0 04/16/2018 [facility] Phosphorus measurement 4.7 2.3 - 4.7 04/16/2018 [facility] Serum or plasma thyrotropin measurement by detection limit <=0.005 miu/l (units/volume) 0.423 0.350 - 4.940 04/16/2018 [facility] Automated blood basophil count (count/volume) Automated blood basophil count (count/volume) 0.0 0.0 - 0.1 04/16/2018 [facility] Automated blood basophil count as percentage of total leukocytes Automated blood basophil count as percentage of total leukocytes 0.5 0.0 - 1.0 04/16/2018 [facility] Automated blood eosinophil count Automated blood eosinophil count 0.1 0.0 - 0.4 04/16/2018 [facility] Automated blood eosinophil count as percentage of total leukocytes Automated blood eosinophil count as percentage of total leukocytes 1.5 0.0 - 6.0 04/16/2018 [facility] Automated blood hematocrit (volume fraction) Automated blood hematocrit (volume fraction) 37.5 38.2 - 49.6 04/16/2018 [facility] Automated blood lymphocyte count as percentage ot total leukocytes Automated blood lymphocyte count as percentage ot total leukocytes 33.5 18.0 - 39.1 04/16/2018 [facility] Automated blood monocyte count as percentage of total leukocytes Automated blood monocyte count as percentage of total leukocytes 6.9 4.4 - 11.3 04/16/2018 [facility] Automated blood neutrophil count Automated blood neutrophil count 3.4 2.1 - 6.9 04/16/2018 [facility] Automated blood platelet count (count/volume) Automated blood platelet count (count/volume) 182 140 - 360 04/16/2018 [facility] Automated blood segmented neutrophil count as percentage of total leukocytes Automated blood segmented neutrophil count as percentage of total leukocytes 57.3 38.7 - 80.0 04/16/2018 [facility] Automated erythrocyte mean corpuscular hemoglobin (mass per erythrocyte) Automated erythrocyte mean corpuscular hemoglobin (mass per erythrocyte) 32.1 28 - 32 04/16/2018 [facility] Automated erythrocyte mean corpuscular hemoglobin concentration measurement (mass/volume) Automated erythrocyte mean corpuscular hemoglobin concentration measurement (mass/volume) 34.1 31 - 35 04/16/2018 [facility] Automated erythrocyte mean corpuscular volume Automated erythrocyte mean corpuscular volume 94.0 81 - 99 04/16/2018 [facility] Blood erythrocytes automated count (number/volume) Blood erythrocytes automated count (number/volume) 3.99 4.3 - 5.7 04/16/2018 [facility] Blood hemoglobin measurement (moles/volume) Blood hemoglobin measurement (moles/volume) 12.8 14.0 - 18.0 04/16/2018 [facility] Blood leukocytes automated count (number/volume) Blood leukocytes automated count (number/volume) 5.94 4.8 - 10.8 04/16/2018 [facility] Blood lymphocytes count (number/volume) Blood lymphocytes count (number/volume) 2.0 1.0 - 3.2 04/16/2018 [facility] Blood monocytes automated count (number/volume) Blood monocytes automated count (number/volume) 0.4 0.2 - 0.8 04/16/2018 [facility] Estimated glomerular filtration rate (GFR) determination Estimated glomerular filtration rate (GFR) determination >60 60 04/16/2018 [facility] Glucose measurement Glucose measurement 205 74 - 118 04/16/2018 [facility] Phosphorus measurement Phosphorus measurement 4.7 2.3 - 4.7 04/16/2018 [facility] Phosphorus measurement Phosphorus measurement 4.7 2.3 - 4.7 04/16/2018 [facility] Plasma globulin measurement (mass/volume) Plasma globulin measurement (mass/volume) 3.1 2.3 - 3.5 04/16/2018 [facility] Serum or plasma alanine aminotransferase measurement (enzymatic activity/volume) Serum or plasma alanine aminotransferase measurement (enzymatic activity/volume) 42 0 - 55 04/16/2018 [facility] Serum or plasma albumin measurement (mass/volume) Serum or plasma albumin measurement (mass/volume) 3.5 3.5 - 5.0 04/16/2018 [facility] Serum or plasma albumin/globulin mass ratio Serum or plasma albumin/globulin mass ratio 1.1 0.8 - 2.0 04/16/2018 [facility] Serum or plasma alkaline phosphatase measurement (enzymatic activity/volume) Serum or plasma alkaline phosphatase measurement (enzymatic activity/volume) 52 40 - 150 04/16/2018 [facility] Serum or plasma anion gap Serum or plasma anion gap 15.4 8 - 16 04/16/2018 [facility] Serum or plasma calcium measurement (mass/volume) Serum or plasma calcium measurement (mass/volume) 9.7 8.4 - 10.2 04/16/2018 [facility] Serum or plasma carbon dioxide, total measurement (moles/volume) Serum or plasma carbon dioxide, total measurement (moles/volume) 25 22 - 29 04/16/2018 [facility] Serum or plasma chloride measurement (moles/volume) Serum or plasma chloride measurement (moles/volume) 101 98 - 107 04/16/2018 [facility] Serum or plasma creatinine measurement (mass/volume) Serum or plasma creatinine measurement (mass/volume) 1.08 0.72 - 1.25 04/16/2018 [facility] Serum or plasma magnesium measurement (mass/volume) Serum or plasma magnesium measurement (mass/volume) 2.2 1.3 - 2.1 04/16/2018 [facility] Serum or plasma magnesium measurement (mass/volume) Serum or plasma magnesium measurement (mass/volume) 2.2 1.3 - 2.1 04/16/2018 [facility] Serum or plasma potassium measurement (moles/volume) Serum or plasma potassium measurement (moles/volume) 4.4 3.5 - 5.1 04/16/2018 [facility] Serum or plasma protein measurement (mass/volume) Serum or plasma protein measurement (mass/volume) 6.6 6.5 - 8.1 04/16/2018 [facility] Serum or plasma sodium measurement (moles/volume) Serum or plasma sodium measurement (moles/volume) 137 136 - 145 04/16/2018 [facility] Serum or plasma thyrotropin measurement by detection limit <=0.005 miu/l (units/volume) Serum or plasma thyrotropin measurement by detection limit <=0.005 miu/l (units/volume) 0.423 0.350 - 4.940 04/16/2018 [facility] Serum or plasma thyrotropin measurement by detection limit <=0.005 miu/l (units/volume) Serum or plasma thyrotropin measurement by detection limit <=0.005 miu/l (units/volume) 0.423 0.350 - 4.940 04/16/2018 [facility] Serum or plasma total bilirubin measurement (mass/volume) Serum or plasma total bilirubin measurement (mass/volume) 0.4 0.2 - 1.2 04/16/2018 [facility] Serum or plasma urea nitrogen measurement (mass/volume) Serum or plasma urea nitrogen measurement (mass/volume) 13 7 - 26 04/16/2018 [facility] Serum or plasma urea nitrogen/creatinine mass ratio Serum or plasma urea nitrogen/creatinine mass ratio 12 6 - 25 04/16/2018 [facility] Red Cell Distribution Width 13.5 11.7 - 14.4 04/16/2018 [facility] IM GRANULOCYTES % 0.3 0.0 - 1.0 04/16/2018 [facility] Absolute Immature Granulocyte (auto 0.02 0 - 0.1 04/16/2018 [facility] Hemoglobin A1c Percent 7.0 4.0 - 7.0 04/16/2018 [facility] Aspartate Amino Transf (AST/SGOT) 22 5 - 34 04/16/2018 [facility] sodium, serum 134 134 - 144 04/16/2018 [facility] stimulating hormone, serum 0.989 0.450 - 4.500 04/16/2018 [facility] thyroid stimulating hormone, serum 0.989 0.450 - 4.500 04/16/2018 [facility] carbon dioxide, venous blood 22 20 - 29 04/16/2018 [facility] very low density lipoproteins 60 5 - 40 04/16/2018 [facility] triglyceride, serum, fasting 298 0 - 149 04/16/2018 [facility] carbon dioxide, venous blood 22 20 - 29 04/16/2018 [facility] urea nitrogen, blood 15 6 - 24 04/16/2018 [facility] chloride, serum 97 96 - 106 04/16/2018 [facility] triglyceride, serum, fasting 298 0 - 149 04/16/2018 [facility] calcium, serum 10.3 8.7 - 10.2 04/16/2018 [facility] urea nitrogen, blood 15 6 - 24 04/16/2018 [facility] alanine aminotransferase (SGPT), serum 50 0 - 44 04/16/2018 [facility] protein, total, serum 7.2 6.0 - 8.5 04/16/2018 [facility] protein, total, serum 7.2 6.0 - 8.5 04/16/2018 [facility] alkaline phosphatase, serum 67 39 - 117 04/16/2018 [facility] LDL cholesterol, serum 89 0 - 99 04/16/2018 [facility] urea nitrogen/creatinine ratio, serum 14 9 - 20 04/16/2018 [facility] albumin/globulin ratio, serum 1.9 1.2 - 2.2 04/16/2018 [facility] creatinine, serum 1.06 0.76 - 1.27 04/16/2018 [facility] HDL cholesterol, serum 53 >39 04/16/2018 [facility] HDL cholesterol, serum 53 >39 04/16/2018 [facility] eGFR if 97 >59 04/16/2018 [facility] globulin, serum 2.5 1.5 - 4.5 04/16/2018 [facility] creatinine, serum 1.06 0.76 - 1.27 04/16/2018 [facility] Estimated Glomerular Filtration Rate (calc) 84 >59 04/16/2018 [facility] thyroxine, serum, free 1.16 0.82 - 1.77 04/16/2018 [facility] albumin/globulin ratio, serum 1.9 1.2 - 2.2 04/16/2018 [facility] cholesterol, serum 202 100 - 199 04/16/2018 [facility] aspartate aminotransferase (SGOT), serum 32 0 - 40 04/16/2018 [facility] aspartate aminotransferase (SGOT), serum 32 0 - 40 04/16/2018 [facility] potassium, serum 4.6 3.5 - 5.2 04/16/2018 [facility] bilirubin, serum, total 0.3 0.0 - 1.2 04/16/2018 [facility] albumin, serum 4.7 3.5 - 5.5 04/16/2018 [facility] Serum or plasma creatine kinase MB measurement (mass/volume) Serum or plasma creatine kinase MB measurement (mass/volume) 0.40 0 - 5.0 04/15/2018 [facility] Serum or plasma creatine kinase measurement (enzymatic activity/volume) Serum or plasma creatine kinase measurement (enzymatic activity/volume) 35 30 - 200 04/15/2018 [facility] Troponin I measurement by highly sensitive enzyme immunoassay Troponin I measurement by highly sensitive enzyme immunoassay <0.001 0 - 0.300 04/15/2018 [facility] Urine opiates screening test POSITIVE NEGATIVE 04/14/2018 [facility] Barbiturates screen, urine NEGATIVE NEGATIVE 04/14/2018 [facility] Urine phencyclidine detection by screening method NEGATIVE NEGATIVE 04/14/2018 [facility] Urine amphetamines detection by screen method > 1000 ng/mL NEGATIVE NEGATIVE 04/14/2018 [facility] Urine Methamphetamines Screen NEGATIVE NEGATIVE 04/14/2018 [facility] Urine benzodiazepines detection by screening method POSITIVE NEGATIVE 04/14/2018 [facility] Urine cocaine measurement (mass/volume) NEGATIVE NEGATIVE 04/14/2018 [facility] Urine cannabinoids detection by screening method NEGATIVE NEGATIVE 04/14/2018 [facility] Automated urine sediment leukocyte count by microscopy (number/high power field) Automated urine sediment leukocyte count by microscopy (number/high power field) NONE 0 - 5 04/14/2018 [facility] Bacteria detection in urine sediment by light microscopy Bacteria detection in urine sediment by light microscopy NONE NONE 04/14/2018 [facility] Barbiturates screen, urine Barbiturates screen, urine NEGATIVE NEGATIVE 04/14/2018 [facility] Barbiturates screen, urine Barbiturates screen, urine NEGATIVE NEGATIVE 04/14/2018 [facility] Epithelial cells detection in urine sediment by light microscopy Epithelial cells detection in urine sediment by light microscopy NONE NONE 04/14/2018 [facility] Erythrocytes detection in urine sediment by light microscopy Erythrocytes detection in urine sediment by light microscopy NONE 0 - 5 04/14/2018 [facility] Specific gravity of Urine by Test strip Specific gravity of Urine by Test strip 1.005 1.010 - 1.025 04/14/2018 [facility] Urine amphetamines detection by screen method > 1000 ng/mL Urine amphetamines detection by screen method > 1000 ng/mL NEGATIVE NEGATIVE 04/14/2018 [facility] Urine amphetamines detection by screen method > 1000 ng/mL Urine amphetamines detection by screen method > 1000 ng/mL NEGATIVE NEGATIVE 04/14/2018 [facility] Urine benzodiazepines detection by screening method Urine benzodiazepines detection by screening method POSITIVE NEGATIVE 04/14/2018 [facility] Urine benzodiazepines detection by screening method Urine benzodiazepines detection by screening method POSITIVE NEGATIVE 04/14/2018 [facility] Urine cannabinoids detection by screening method Urine cannabinoids detection by screening method NEGATIVE NEGATIVE 04/14/2018 [facility] Urine cannabinoids detection by screening method Urine cannabinoids detection by screening method NEGATIVE NEGATIVE 04/14/2018 [facility] Urine clarity Urine clarity CLEAR CLEAR 04/14/2018 [facility] Urine cocaine measurement (mass/volume) Urine cocaine measurement (mass/volume) NEGATIVE NEGATIVE 04/14/2018 [facility] Urine cocaine measurement (mass/volume) Urine cocaine measurement (mass/volume) NEGATIVE NEGATIVE 04/14/2018 [facility] Urine color determination Urine color determination YELLOW YELLOW 04/14/2018 [facility] Urine erythrocytes detection Urine erythrocytes detection NEGATIVE NEGATIVE 04/14/2018 [facility] Urine glucose detection Urine glucose detection 3+ NEGATIVE 04/14/2018 [facility] Urine ketones detection by automated test strip Urine ketones detection by automated test strip NEGATIVE NEGATIVE 04/14/2018 [facility] Urine leukocyte esterase detection by dipstick Urine leukocyte esterase detection by dipstick NEGATIVE NEGATIVE 04/14/2018 [facility] Urine nitrite detection Urine nitrite detection NEGATIVE NEGATIVE 04/14/2018 [facility] Urine opiates screening test Urine opiates screening test POSITIVE NEGATIVE 04/14/2018 [facility] Urine opiates screening test Urine opiates screening test POSITIVE NEGATIVE 04/14/2018 [facility] Urine pH measurement by automated test strip Urine pH measurement by automated test strip 5 5 - 7 04/14/2018 [facility] Urine phencyclidine detection by screening method Urine phencyclidine detection by screening method NEGATIVE NEGATIVE 04/14/2018 [facility] Urine phencyclidine detection by screening method Urine phencyclidine detection by screening method NEGATIVE NEGATIVE 04/14/2018 [facility] Urine protein measurement by test strip (mass/volume) Urine protein measurement by test strip (mass/volume) NEGATIVE NEGATIVE 04/14/2018 [facility] Urine total bilirubin measurement (mass/volume) Urine total bilirubin measurement (mass/volume) NEGATIVE NEGATIVE 04/14/2018 [facility] Urine urobilinogen measurement by test strip (mass/volume) Urine urobilinogen measurement by test strip (mass/volume) 0.2 0.2 - 1 04/14/2018 [facility] Urine Methamphetamines Screen NEGATIVE NEGATIVE 04/14/2018 [facility] Lactic Acid Level 47.2 4.5 - 19.8 04/14/2018 [facility] Serum or plasma valproate measurement (mass/volume) 2 50 - 100 04/14/2018 [facility] Serum or plasma valproate measurement (mass/volume) Serum or plasma valproate measurement (mass/volume) 2 50 - 100 04/14/2018 [facility] Serum or plasma valproate measurement (mass/volume) Serum or plasma valproate measurement (mass/volume) 2 50 - 100 04/14/2018 [facility] Lactic Acid Level 47.2 4.5 - 19.8 04/14/2018 [facility] B-Type Natriuretic Peptide 10.2 0 - 100 04/14/2018 [facility] 12 LEAD EKG 12 LEAD EKG FOR [facility] Test Date:2017-05-24 Pat Name: DAVID SAMUELS Department: : Gender: MTechnician: [id number] :[id number] Requested By: Order Number:Reading MD: Nader Conrad M.D. Measurements IntervalsAxis Rate: 61 P:-10 RI: 180QRS:38 QRSD: 115T:30 QT: 404 QTc:409 Interpretive Statements SINUS RHYTHM INCOMPLETE RIGHT BUNDLE BRANCH BLOCK Electronically Signed On 05-25-17 05:56:28 CDT by Nader Conrad M.D. 05/25/2017 [facility] TROPONIN I POC Troponin POC 0.00 0 - 0.08 05/25/2017 [facility] POC CO2 POC 29 21 - 32 05/25/2017 [facility] POC Chloride POC 100 98 - 107 05/25/2017 [facility] POC Potassium POC 5.0 3.5 - 5.1 05/25/2017 [facility] POC Sodium POC 137 136 - 145 05/25/2017 [facility] POC Glucose POC 138 74 - 106 05/25/2017 [facility] POC Urea Nitrogen POC 20 7 - 18 05/25/2017 [facility] POC Creatinine POC 1.4 0.6 - 1.3 05/25/2017 [facility] POC Calcium Ionized POC 1.22 1.15 - 1.29 05/25/2017 [facility] POC Hemoglobin POC 15.6 14 - 18 05/25/2017 [facility] POC Hematocrit POC 46.0 40 - 54 05/25/2017 [facility] POC GFR, Estimated 55 mL/min/1.73 m2 05/25/2017 [facility] POC GFR, Estim, Afr-Am >60 mL/min/1.73 m2 05/25/2017 [facility] POC Lab Interpretation Abnormal 05/25/2017 [facility] POC CO2 POC 29 21 - 32 05/24/2017 [facility] POC Chloride POC 100 98 - 107 05/24/2017 [facility] POC Potassium POC 5.0 3.5 - 5.1 05/24/2017 [facility] POC Sodium POC 137 136 - 145 05/24/2017 [facility] POC Glucose POC 138 74 - 106 05/24/[address] [facility] POC Urea Nitrogen POC 20 7 - 18 05/24/[address] [facility] POC Creatinine POC 1.4 0.6 - 1.3 05/24/[address] [facility] POC Calcium Ionized POC 1.22 1.15 - 1.29 05/24/2017 [facility] POC Hemoglobin POC 15.6 14 - 18 05/24/2017 [facility] POC Hematocrit POC 46.0 40 - 54 05/24/2017 [facility] POC GFR, Estimated 55 mL/min/1.73 m2 05/24/2017 [facility] POC GFR, Estim, Afr-Am >60 mL/min/1.73 m2 05/24/2017 [facility] POC Lab Interpretation Abnormal 05/24/2017 [facility] TROPONIN I POC Troponin POC 0.00 0 - 0.08 05/24/2017 [facility] 12 LEAD EKG 12 LEAD EKG FOR [facility] Test Date:2017-05-24 Pat Name: DAVID SAMUELS Department: : Gender: MTechnician: [id number] :1970 Requested By: Order Number:Reading MD: Nader Conrad M.D. Measurements IntervalsAxis Rate: 61 P:-10 RI: 180QRS:38 QRSD: 115T:30 QT: 404 QTc:409 Interpretive Statements SINUS RHYTHM INCOMPLETE RIGHT BUNDLE BRANCH BLOCK Electronically Signed On 05-25-17 05:56:28 CDT by Nader Conrad M.D. 05/24/2017 [facility] CHEM PANEL Magnesium Lvl 2.2 1.8 - 2.4 12/01/2016 [facility] CHEM PANEL eGFR 79 12/01/2016 Result Comment: The eGFR is calculated [...] should be multiplied by the estimated BMI. [facility] CHEM PANEL Calcium Lvl 8.9 8.5 - 10.5 12/01/2016 [facility] CHEM PANEL CO2 25 24 - 32 12/01/2016 [facility] CHEM PANEL Chloride Lvl 104 95 - 109 12/01/2016 [facility] CHEM PANEL Sodium Lvl 139 135 - 145 12/01/2016 [facility] CHEM PANEL Potassium Lvl 4.1 3.5 - 5.1 12/01/2016 [facility] CHEM PANEL Glucose Lvl 85 70 - 99 12/01/2016 [facility] CHEM PANEL Creatinine Lvl 1.12 0.50 - 1.40 12/01/2016 [facility] CHEM PANEL BUN 15 7 - 22 12/01/2016 [facility] CHEM PANEL AGAP 14.1 10.0 - 20.0 12/01/2016 [facility] HEMATOLOGY Eosinophils 0.6 0.0 - 4.0 12/01/2016 [facility] HEMATOLOGY Basophils 0.6 0.0 - 1.0 12/01/2016 [facility] HEMATOLOGY Monocytes # 0.6 0.0 - 0.8 12/01/2016 [facility] HEMATOLOGY Eosinophils # 0.1 0.0 - 0.5 12/01/2016 [facility] HEMATOLOGY Segs-Bands # 5.9 1.5 - 8.1 12/01/2016 [facility] HEMATOLOGY Lymphocytes # 2.4 1.0 - 5.5 12/01/2016 [facility] HEMATOLOGY Basophils # 0.1 0.0 - 0.2 12/01/2016 [facility] HEMATOLOGY Lymphocytes 27.0 20.0 - 40.0 12/01/2016 [facility] HEMATOLOGY Monocytes 6.3 2.0 - 12.0 12/01/2016 [facility] HEMATOLOGY Segs 65.5 45.0 - 75.0 12/01/2016 [facility] HEMATOLOGY MPV 6.9 7.4 - 10.4 12/01/2016 [facility] HEMATOLOGY Platelet 209 133 - 450 12/01/2016 [facility] HEMATOLOGY MCHC 34.1 32.0 - 36.0 12/01/2016 [facility] HEMATOLOGY RDW 13.7 11.5 - 14.5 12/01/2016 [facility] HEMATOLOGY WBC 9.0 3.7 - 10.4 12/01/2016 [facility] HEMATOLOGY MCH 31.5 27.0 - 31.0 12/01/2016 [facility] HEMATOLOGY MCV 92.5 80.0 - 94.0 12/01/2016 [facility] HEMATOLOGY Hct 43.3 42.0 - 54.0 12/01/2016 [facility] HEMATOLOGY Hgb 14.8 14.0 - 18.0 12/01/2016 [facility] HEMATOLOGY RBC 4.68 4.70 - 6.10 12/01/2016 [facility] HEMATOLOGY PTT 45.0 22.9 - 35.8 12/01/2016 [facility] HEMATOLOGY INR 1.02 0.85 - 1.17 12/01/2016 [facility] HEMATOLOGY PT 13.6 12.0 - 14.7 12/01/2016 [facility] CARDIAC ENZYMES Troponin-I <0.02 0.00 - 0.40 12/01/2016 [facility] CARDIAC ENZYMES Troponin-T <0.010 0.000 - 0.100 12/01/2016 [facility] CARDIAC ENZYMES Total CK 51 12 - 191 12/01/2016 [facility] HEMATOLOGY PTT 46.4 22.9 - 35.8 12/01/2016 [facility] CARDIAC ENZYMES Total CK 47 12 - 191 11/30/2016 [facility] CARDIAC ENZYMES Troponin-I <0.02 0.00 - 0.40 11/30/2016 [facility] CARDIAC ENZYMES Troponin-T <0.010 0.000 - 0.100 11/30/2016 [facility] DRUG SCREEN U Amph Scr Negative *NA* (11/30/16 3:30 PM) Negative 11/30/2016 [facility] DRUG SCREEN U Noemi Scr Negative *NA* (11/30/16 3:30 PM) Negative 11/30/2016 [facility] DRUG SCREEN U Cannab Scr Negative *NA* (11/30/16 3:30 PM) Negative 11/30/2016 [facility] DRUG SCREEN U Phencyc Scr Negative *NA* (11/30/16 3:30 PM) Negative 11/30/2016 [facility] DRUG SCREEN U Opiate Scr Positive *ABN* (11/30/16 3:30 PM) Negative 11/30/2016 [facility] DRUG SCREEN U Benzodia Scr Negative *NA* (11/30/16 3:30 PM) Negative 11/30/2016 [facility] DRUG SCREEN U Cocaine Scr Negative *NA* (11/30/16 3:30 PM) Negative 11/30/2016 [facility] DRUG SCREEN UDS Note See Note (11/30/16 3:30 PM) 11/30/2016 [facility] HEMATOLOGY PT 13.3 12.0 - 14.7 11/30/2016 [facility] HEMATOLOGY INR 0.99 0.85 - 1.17 11/30/2016 [facility] HEMATOLOGY PTT 31.1 22.9 - 35.8 11/30/2016 [facility] CARDIAC ENZYMES Troponin-I <0.02 0.00 - 0.40 11/30/2016 [facility] CARDIAC ENZYMES Total CK 48 12 - 191 11/30/2016 [facility] CARDIAC ENZYMES Troponin-T <0.010 0.000 - 0.100 11/30/2016 [facility] CHEM PANEL eGFR 73 11/30/2016 Result Comment: The eGFR is calculated [...] should be multiplied by the estimated BMI. [facility] CHEM PANEL CO2 29 24 - 32 11/30/2016 [facility] CHEM PANEL Calcium Lvl 9.3 8.5 - 10.5 11/30/2016 [facility] CHEM PANEL BUN 15 7 - 22 11/30/2016 [facility] CHEM PANEL Creatinine Lvl 1.19 0.50 - 1.40 11/30/2016 [facility] CHEM PANEL Glucose Lvl 100 70 - 99 11/30/2016 [facility] CHEM PANEL Chloride Lvl 102 95 - 109 11/30/2016 [facility] CHEM PANEL Potassium Lvl 4.5 3.5 - 5.1 11/30/2016 [facility] CHEM PANEL Sodium Lvl 140 135 - 145 11/30/2016 [facility] CHEM PANEL AGAP 13.5 10.0 - 20.0 11/30/2016 [facility] HEMATOLOGY RBC 4.73 4.70 - 6.10 11/30/2016 [facility] HEMATOLOGY Hgb 14.9 14.0 - 18.0 11/30/2016 [facility] HEMATOLOGY WBC 9.0 3.7 - 10.4 11/30/2016 [facility] HEMATOLOGY MPV 6.9 7.4 - 10.4 11/30/2016 [facility] HEMATOLOGY MCV 92.0 80.0 - 94.0 11/30/2016 [facility] HEMATOLOGY Hct 43.5 42.0 - 54.0 11/30/2016 [facility] HEMATOLOGY MCH 31.6 27.0 - 31.0 11/30/2016 [facility] HEMATOLOGY Platelet 213 133 - 450 11/30/2016 [facility] HEMATOLOGY MCHC 34.3 32.0 - 36.0 11/30/2016 [facility] HEMATOLOGY RDW 13.7 11.5 - 14.5 11/30/2016 [facility] HEMATOLOGY Lymphocytes # 2.0 1.0 - 5.5 11/30/2016 [facility] HEMATOLOGY Monocytes # 0.5 0.0 - 0.8 11/30/2016 [facility] HEMATOLOGY Basophils 0.7 0.0 - 1.0 11/30/2016 [facility] HEMATOLOGY Segs-Bands # 6.4 1.5 - 8.1 11/30/2016 [facility] HEMATOLOGY Basophils # 0.1 0.0 - 0.2 11/30/2016 [facility] HEMATOLOGY Segs 71.4 45.0 - 75.0 11/30/2016 [facility] HEMATOLOGY Lymphocytes 21.8 20.0 - 40.0 11/30/2016 [facility] HEMATOLOGY Monocytes 5.8 2.0 - 12.0 11/30/2016 [facility] HEMATOLOGY Eosinophils 0.3 0.0 - 4.0 11/30/2016 [facility] Pathology Reports No Data Provided for This Section Diagnostic Reports No Data Provided for This Section Consultation Notes No Data Provided for This Section Discharge Summaries No Data Provided for This Section History and Physicals No Data Provided for This Section Vital Signs Vital Sign Value Date Comments [...] 02/18/2018 [facility] Systolic (mm Hg) 126 05/25/2017 [facility] Diastolic (mm Hg) 82 05/25/2017 [facility] Heart Rate 66 05/25/2017 [facility] Temperature Oral (F) 36.94 Muna 05/25/2017 [facility] Respitory Rate 18 05/25/2017 [facility] Temperature Oral (F) 98.2 F 12/01/2016 [facility] Respitory Rate 18 12/01/2016 [facility] Systolic (mm Hg) 129 12/01/2016 [facility] Diastolic (mm Hg) 75 12/01/2016 [facility] Systolic (mm Hg) 129 12/01/2016 [facility] Diastolic (mm Hg) 88 12/01/2016 [facility] Respitory Rate 20 12/01/2016 [facility] Respitory Rate 18 12/01/2016 [facility] Systolic (mm Hg) 99 12/01/2016 [facility] Diastolic (mm Hg) 67 12/01/2016 [facility] Temperature Oral (F) 97.9 F 12/01/2016 [facility] Temperature Oral (F) 97.1 F 12/01/2016 [facility] Height 182.88 cm 11/30/2016 [facility] BMI Calculated 33.67 11/30/2016 [facility] Weight 112.6 11/30/2016 [facility] Encounters Location Location Details Encounter Type Encounter Number Reason For Visit Attending Provider ADM Date DC Date Status Source [facility] Inpatient [id number] Parveenerick Johnson 11/30/2016 12/01/2016 [facility] BT Emergency [id number] 05/25/2017 05/25/2017 [facility] New Patient Detailed - [id number] Pepito Boyd MD [facility]18/[facility] Problem - 85493 [id number] Paula Clay MD 03/27/2018 [facility] Est Patient Exp Problem - 01899 [id number] Oscar Nielson MD (res) 04/09/2018 [facility] Discharged Inpatient (obs) [id number] ERIC BRO MD 04/15/2018 04/16/2018 [facility] Est Patient Detailed - 54430 [id number] Paula lCay MD 04/18/2018 [facility] Est Patient Detailed - 28840 [id number] Lele Suárez MD [facility]23[facility] [id number] MARGE GREER MD 05/06/2018 05/06/2018 [facility] Departed Emergency Room [id number] BEATRIS DELONG MD 05/27/2018 05/27/2018 [facility] Est Patient Exp Problem - 54196 [id number] Lele Suárez MD 05/28/2018 [facility] Est Patient Exp Problem - 76112 [id number] Juliann Worley MD (res) 06/15/2018 [facility] Est Patient Exp Problem - 04845 [id number] Lele Suárez MD 06/25/2018 [facility] Est Patient Exp Problem - 50707 [id number] Juliann Worley MD (res) 07/14/2018 [facility] Est Patient Exp Problem - 47620 [id number] Bandar Garcia MD R3 07/19/2018 [facility] Est Patient Exp Problem - 10372 [id number] Delicia Meraz MD (res) 07/22/2018 [facility] Est Patient Exp Problem - 32333 [id number] Lele Suárez MD 07/23/2018 [facility] Est Patient Exp Problem - 03094 [id number] Joe Mcmullen MD 07/23/2018 [facility] Est Patient Exp Problem - 64907 [id number] Lele Suárez MD 08/25/2018 [facility] Est Patient Detailed - 19672 [id number] Snehal Gutierrez MD 09/09/2018 [facility] Est Patient Exp Problem - 72197 [id number] Snehal Gutierrez MD 09/09/2018 [facility] [id number] BEATRIS DELONG MD 09/20/2018 09/20/2018 [facility] Departed Emergency Room [id number] LAKSHMI ZIMMER MD 10/04/2018 10/04/2018 [facility] Registered Clinic [id number] PETER REYES MD 10/20/2018 [facility] Departed Emergency Room [id number] BEATRIS DELONG MD 11/16/2018 11/16/2018 [facility] Procedures Procedure Code Date Perfomer Comments Source Psychotherapy 45 (38-52*) min - 07824 (with patient and/or family member) 78227 08/19/2018 Robert LASCAT [facility] INTV Indiv - 18916 77903 07/26/2018 [place] [employer] [facility] HEMOGLOBIN A1C - In House 51552 07/14/2018 Meir RUIZ (res) [facility] Diagnostic evaluation (no medical) - 95357 48475 07/14/2018 Robert CISNEROS-SCAT [facility] Glucose Stick 60996 06/16/2018 Meir RUIZ (res) [facility] evaluation with medical - 33733 29247 04/23/2018 Kamini RUIZ [facility] Magnetic resonance imaging of brain without contrast [id number] 04/15/2018 [facility] CT angiography of chest [id number] 04/14/2018 [facility] Computed tomography of brain without radiopaque contrast [id number] 04/14/2018 [facility] Computed tomography angiography of abdomen and pelvis without then withcontrast 914976989 04/14/2018 [facility] BMP POC 23771 05/25/2017 Unknown [facility] TROPONIN I POC 62494 05/25/2017 Unknown [facility] 12 LEAD EKG 10125 05/25/2017 Rai [facility] Hernia repair [id number] [facility] Knee joint operation [id number] [facility] Wrist reconstruction [id number] [facility] Assessment and Plan Assessment and Plan Date Source Extracted from:Title: CCU Progress Note Author: Perfecto Singh MD Date: 12/01/16 Impression and Plan 46 yo M PMH HTN, HLD, PTSD, anxiety, MA x3 s/p PCI c/o substernal chest pain/pressure, nausea, SOB, L arm numbness. Transferred here from OSH for concern for ACS. CV #Chest pain - Pt still w/ active CP after nitro and morphine at OSH - Given ASA, 100 mg lovenox at OSH - H/o MA, intermittently takes aspirin - TTE pending - Trop neg x 3 - Aspirin/plavix daily starting tomorrow - Stress test today #HTN - Continue home lisinopril, metoprolol Code: Full Diet: NPO for possible cath Dispo: Pending echo and stress Perfecto Singh MD, MPH Emergency Medicine, PGY-1 # [id number] Extracted from:Title: [facility] History and Physical Author: Jack Núñez MD Date: 11/30/16 Patient: ORIANA MONTILLA## Age: 46 years Sex: Male : 1970 Associated Diagnoses: None Author: Jack Núñez MD Chief Complaint "My chest hurts." History of Present Illness 46 yo M PMH HTN, HLD, PTSD, anxiety, MA x3 s/p PCI c/o substernal chest pain/pressure, [...] get aspirin every day. 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 Review of Systems [...] available Histories Past Medical History: Resolved Hypertension ([id number]): Resolved. Chest pain (09928988): Resolved. PTSD (post-traumatic stress disorder) (288723961): Resolved. Family History: COPD Mother Heart attack Father Mother Cardiac arrest Father Procedure history: Knee joint operation ([id number]). Wrist reconstruction (964994969). Hernia repair (28702941). Social History Social and Psychosocial Habits Substance Abuse 11/30/2016 Use: Past [...] Signs (last 24 hrs) Last Charted Temp Oral 97.7 DegF (NOV 30 12:00) Heart Rate Apical L 58bpm (NOV 30:30) Resp Rate 20 BRMIN (NOV 30:) SBP 134 mmHg (NOV 30:) DBP H 91mmHg (NOV 30:) Weight 112.6 kg (NOV 30:) Height 182.88 cm (NOV 30:) BMI 33.67 (NOV 30:) General: Alert and oriented, No [...] Normal range of motion. Integumentary: Warm, Dry, [place], Intact. Neurologic: Alert, Oriented. Cognition and Speech: Oriented, Speech clear and coherent. Psychiatric: Cooperative, Appropriate mood and affect. Review / Management Results review: No qualifying data available. Impression and Plan 46 yo M PMH HTN, HLD, PTSD, anxiety, MA x3 s/p PCI c/o substernal chest pain/pressure, nausea, SOB, L arm numbness. Transferred here from OSH for concern for ACS. CV #Chest pain - Pt still w/ active CP after nitro and morphine at OSH - Given ASA, 100 mg lovenox at OSH - H/o MA, intermittently takes aspirin - TTE pending - Trop <0.034 at OSH, will trend here - EKG w/ no ST/T wave changes - On ACS heparin protocol - Aspirin/plavix daily starting tomorrow #HTN - Continue home lisinopril, metoprolol Code: Full Diet: NPO for possible cath Dispo: Pending further w/u or cath Addendum by Parveen Johnson MD on 11/30/2016 18:53 Case was discussed with the team in detail Will treat medically for now, trend troponins and plan for stress test in am if trops negative Will obtain OSH files regarding prior MIs Please obtain TTE today 12/01/2016 [facility] Plan of Care Plan of Care Date Source Discharge Date 11/16/18 5:07pm Disposition AGAINST MEDICAL ADVICE Condition at Discharge Other Forms Provided Work/School Excuse Prescriptions See Medication Section 11/16/2018 [facility] IMM Influenza Seasonal May to October (>/=19 yrs) 05/10/2018 [facility] Discharge Date 05/06/18 6:33am Disposition HOME, SELF-CARE Condition at Discharge Stable Instructions/Education Provided Abrasion Angina Contusion Fall Prevention Forms Provided Work/School Excuse Prescriptions See Medication Section Referrals PAULA HALE Order Date: Call for an appointment Address: [address] [place] [address] [address] [place] [address] Additional Instructions/Education FOLLOW-UP WITH YOUR MUSEUM GUIDE 05/06/2018 [facility] Discharge Date 04/16/18 3:13pm Disposition HOME, SELF-CARE Instructions/Education Provided Cardiac Disease Risk Factors Prescriptions See Medication Section Additional Instructions/Education FOLLOW UP WITH PSYCHIATRIST PLANNED DATES OF ADMISSION: 04/15/18 - 04/16/18 04/16/2018 [facility] Social History Social History Date Source No social history information available. 11/16/2018 [facility] Tobacco UseTypesPacks/DayYears UsedDate Never Assessed Sex Assigned at BirthDate Recorded Not on file 05/15/2018 [facility] Social History TypeResponse Substance Abuse Use: Past. Type: Prescription medications. [...] Days Yes; Reg Smoking Cessation Counseling Yes 11/30/2016 [facility] Family History No Data Provided for This Section Advance Directives Order Name Results Value Date Source Advance Directives Advance Directives Directive Response Recorded Date/Time Does the patient have an advance directive? No 04/15/18 7:50am Do you have a Directive to Physician? No 11/16/18 5:22pm Do you have a Medical Power of Sound Controller? No 11/16/18 5:22pm Do you have an out of hospital Do Not Resuscitate Order? No 11/16/18 5:22pm Do you have any special needs we should be aware of? No 11/16/18 5:22pm Do you have a support person here with you today? Yes 11/16/18 5:22pm Did patient receive Notice of Privacy Practices? Yes 11/16/18 5:22pm Did patient receive patient rights and responsibilities? Yes 11/16/18 5:22pm 11/16/2018 [facility] Advance Directives Advance Directives Directive Response Recorded Date/Time Does the patient have an advance directive? No 04/15/18 7:50am If yes, is advance directive on file with [facility]? No 04/14/18 11:03pm If not on file with [facility] will patient provide a copy? No 04/14/18 11:03pm Do you have a Directive to Physician? No 05/06/18 2:15am Do you have a Medical Power of Sound Controller? No 05/06/18 2:15am Do you have an out of hospital Do Not Resuscitate Order? No 05/06/18 2:15am Do you have any special needs we should be aware of? No 05/06/18 2:15am Do you have a support person here with you today? No 05/06/18 2:15am Did patient receive Notice of Privacy Practices? Yes 05/06/18 2:15am Did patient receive patient rights and responsibilities? Yes 05/06/18 2:15am 05/06/2018 [facility] Advance Directives Advance Directives Directive Response Recorded Date/Time Does the patient have an advance directive? No 04/15/18 7:50am If yes, is advance directive on file with [facility]? No 04/14/18 11:03pm If not on file with [facility] will patient provide a copy? No 04/14/18 11:03pm Do you have a Directive to Physician? No 04/14/18 11:04pm Do you have a Medical Power of Sound Controller? No 04/14/18 11:03pm Do you have an out of hospital Do Not Resuscitate Order? No 04/14/18 11:03pm Do you have any special needs we should be aware of? No 04/14/18 11:03pm Do you have a support person here with you today? Yes 04/14/18 11:03pm Did patient receive Notice of Privacy Practices? Yes 04/14/18 11:03pm Did patient receive patient rights and responsibilities? Yes 04/14/18 11:03pm 04/16/2018 [facility] Functional Status No Data Provided for This Section
--- OUTSIDE RECORDS SUMMARY | 2019-03-30 16:09 | XMS REPORT | Summary of Care ---
Author Author [facility] - Health Organization [facility] - Health Address Unknown Phone Unavailable Care Team Providers Care [place] Name Role Phone Eduardo Arturo PCP Reason for Visit * Reason Comments Transition Of Care Encounter Details Care Team Description Date Type Department Tonya Short, RN [phone] Transition Of Care 03/11/2019 Transition of [facility] Allergies Comments Active Allergy Reactions Severity Noted Date Cefazolin Sodium Itching 09/24/2018 Ciprofloxacin Hives 02/28/2019 Patient states he denies codeine allergy Codeine Hives Low 04/29/2018 Cyclobenzaprine Hives 01/08/2019 Methylprednisolone Hives 01/27/2016 Penicillin Itching 11/30/2016 Mirtazapine Itching 04/22/2017 Ketorolac Tromethamine Itching 01/26/2016 Tramadol Hives Medium 12/12/2018 documented as of this encounter (statuses as of 03/11/2019) Medications No known medicationsdocumented as of this encounter (statuses as of 03/11/2019) Active Problems Problem Noted Date Lower extremity weakness 03/10/2019 Syncope 02/20/2019 Syncopal episodes 01/12/2019 Seizure 09/27/2018 Drug-seeking behavior 08/16/2018 COPD (chronic obstructive pulmonary disease) 07/13/2018 Hyperglycemia 05/10/2018 Anxiety 04/27/2018 PTSD (post-traumatic stress disorder) 04/27/2018 Morbid obesity with body mass index of 40.0-49.9 04/25/2018 CKD stage 2 due to type 2 diabetes mellitus 03/09/2018 Uncontrolled type 2 diabetes mellitus 03/02/2018 Depression, unspecified depression type 05/05/2017 Syncope and collapse 04/20/2017 Coronary atherosclerosis 12/25/2016 Obesity (BMI 30-39.9) 11/30/2016 Atypical chest pain 01/28/2016 Essential hypertension 01/28/2016 Dyslipidemia 01/28/2016 Coronary artery disease involving [place] coronary artery without angina 01/28/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 Tobacco abuse 01/28/2016 Chest pain 01/27/2016 Wrist pain 01/27/2016 documented as of this encounter (statuses as of 03/11/2019) Immunizations Name Administration Dates Next Due Influenza Virus Vaccine 07/10/2018 Pneumococcal 13 07/10/2018 Conjugate, PCV13 (Prevnar 13) documented as of this encounter Social History Date Tobacco Use Types Packs/Day Years Used Quit: 02/10/2017 Former Smoker Cigarettes 0.5 20 Smokeless Tobacco: Current User Drinks/Week oz/Week Comments Alcohol Use 0 Standard drinks or equivalent 0.0 occasionally beer Yes Financial Resource Strain Answer Date Recorded How hard is it for you to pay for the very basics Somewhat hard 02/19/2019 like food, housing, medical care, and heating? Food Insecurity Answer Date Recorded Within the past 12 months, you worried that your Often true 02/19/2019 food would run out before you got money to buy more. Within the past 12 months, the food you bought Often true 02/19/2019 just didn't last and you didn't have money to get more. Transportation Needs Answer Date Recorded In the past 12 months, has lack of transportation Yes 02/19/2019 kept you from medical appointments or from getting medications? In the past 12 months, has lack of transportation Yes 02/19/2019 kept you from meetings, work, or getting things needed for daily living? Sex Assigned at Date Recorded Not on file Industry Job Start Date Occupation Not on file Not on file Not on file Travel End Travel History Travel Start No recent travel history available. documented as of this encounter Last Filed Vital Signs Not on filedocumented in this encounter Plan of Treatment Care Team Description Date Type Specialty Kena Rubin MD [address] [place] [address] 05/20/2019 Office Visit Neurology Health Maintenance Due Date Last Done Comments EYE EXAM 1981 URINE MICROALBUMIN 1981 FOOT EXAM 1989 DTaP,Tdap,and Td Vaccines 1990 (1 - Tdap) PNEUMOCOCCAL 0-64 YEARS 09/04/2018 07/10/2018 COMBINED SERIES (1 of 1 - PPSV23) INFLUENZA VACCINE 04/10/2019 07/10/2018 HgA1C 07/10/2019 01/08/2019, 04/25/2018, 01/27/2016 LDL-C 02/20/2020 02/19/2019, 04/20/2017, 01/27/2016 CREATININE (SERUM) 03/09/2020 03/09/2019, 03/04/2019, 02/28/2019, Additional history exists documented as of this encounter Implants Device Identifier Shelf Expiration Date Model / Serial / 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 DVRAS-LEFT / DVRAS-LEFT / DVRAS-LEFT Dvr Left Plate PLATE Left: Arm Hand Implanted: Qty: 1 on 02/04/2016 by Humble Lester MD at [facility] [id number] / / 24 Fully Threaded Pegs Peg screw Left: Arm Hand Implanted: Qty: 2 on 02/04/2016 by Humble Lester MD at [facility] FP20 / 20 / 20 Fullu Threaded Pegs Peg screw Left: Arm Hand Implanted: Qty: 1 on 02/04/2016 by Humble Lester MD at [facility] FP22 / / Fully Threaded Peg Peg screw Left: Arm Hand Implanted: Qty: 1 on 02/04/2016 by Humble Lester MD at [facility] FP24 24 Standard Peg Nonlocking Peg screw Left: Arm Hand Implanted: Qty: 1 on 02/04/2016 by Humble Lester MD at [facility] Standard Peg Nonlocking Peg screw Left: Arm Hand Implanted: Qty: 1 on 02/04/2016 by Humble Lester MD at [facility] [id number] / 14 / 14 Cortical Screw SCREW Left: Arm Hand Implanted: Qty: 3 on 02/04/2016 by Humble Lester MD at [facility] documented as of this encounter Results Not on filedocumented in this encounter Insurance Type Payer Benefit Subscriber ID Effective Phone Address Plan / Dates Group Medicare MEDICARE MEDICARE xxxxxxxxxxx 2019-P [id number] [place]ERMUDEZ [id number] [facility] [id number] 2018-P [facility] resent [facility] documented as of this encounter
--- OUTSIDE RECORDS SUMMARY | 2019-03-30 16:09 | XMS REPORT | Summary of Care ---
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 Name Role Phone Arturo Clark PCP Reason for Referral * MRI/CAT Scan (STAT) Referred By Contact Referred To Contact Status Reason Specialty Diagnoses / Procedures Elzbieta Vidal MD [address] [place] [address] New Request Diagnostic Diagnoses Radiology Weakness of both lower extremities P rocedures MR LUMBAR SPINE WO CONTRAST MR LUMBAR SPINE W WO CONTRAST MR LUMBAR SPINE W WO CONTRAST * Radiology Services ([facility]) Referred By Contact Referred To Contact Status Reason Specialty Diagnoses / Procedures Elzbieta Vidal MD [address] [place] [address] New Request Diagnostic Diagnoses Radiology Stable angina pectoris P rocedures XR CHEST 1 VW * Radiology Services ([facility]) Referred By Contact Referred To Contact Status Reason Specialty Diagnoses / Procedures Elzbieta Vidal MD [address] [place] [address] New Request Diagnostic Diagnoses Radiology Stable angina pectoris P rocedures XR CHEST 1 VW * MRI/CAT Scan (STAT) Referred By Contact Referred To Contact Status Reason Specialty Diagnoses / Procedures Mac Paige, [address] [facility] [address] [place] [address] New Request Diagnostic Diagnoses Radiology Weakness of both lower extremities P rocedures CT ANGIOGRAM HEAD * MRI/CAT Scan (STAT) Referred By Contact Referred To Contact Status Reason Specialty Diagnoses / Procedures Mac Paige, DO [address] [facility] [address] [place] [address] New Request Diagnostic Diagnoses Radiology Weakness of both lower extremities P rocedures CT Head W/O Contrast * MRI/CAT Scan (STAT) Referred By Contact Referred To Contact Status Reason Specialty Diagnoses / Procedures Mac Paige, DO [address] [facility] [address] [place] [address] New Request Diagnostic Diagnoses Radiology Weakness of both lower extremities P rocedures CT ANGIOGRAM HEAD * MRI/CAT Scan (STAT) Referred By Contact Referred To Contact Status Reason Specialty Diagnoses / Procedures Mac Paige, DO [address] [facility] [address] [place] [address] New Request Diagnostic Diagnoses Radiology Weakness of both lower extremities P rocedures CT Head W/O Contrast Reason for Visit * Reason Comments Weakness * Auth/Cert Referred By Contact Referred To Contact Status Reason Specialty Diagnoses / Procedures [facility] Emergency Dept [address] [place] [address] Emergency Medicine Encounter Details Care Team Description Date Type Department Mac Paige, DO [address] [facility] [address] [place] [address] [phone] Elzbieta Vidal MD [address] [place] [address] Lower extremity weakness 03/09/2019 [facility] - Encounter Medicine/Surgery CLC 7B 03/10/2019 [address] [place] [address] Allergies Comments Active Allergy Reactions Severity Noted Date Cefazolin Sodium Itching 09/24/2018 Ciprofloxacin Hives 02/28/2019 Patient states he denies codeine allergy Codeine Hives Low 04/29/2018 Cyclobenzaprine Hives 01/08/2019 Methylprednisolone Hives 01/27/2016 Penicillin Itching 11/30/2016 Mirtazapine Itching 04/22/2017 Ketorolac Tromethamine Itching 01/26/2016 Tramadol Hives Medium 12/12/2018 documented as of this encounter (statuses as of 03/10/2019) Medications End Date Status Medication Sig Dispensed Refills Start Date 03/10/2019 Discontinued atorvastatin 80 mg tablet Take 80 mg by 0 mouth at bedtime. 03/10/2019 Discontinued pantoprazole 40 mg EC Take 40 mg by 0 tablet mouth daily. 03/10/2019 Discontinued nitroglycerin 0.[address] 1 1 Bottle 11 sublingual tablet tablet under 7 the tongue every 5 (five) minutes as needed for Chest pain. 03/10/2019 Discontinued albuterol 90 Inhale 1 0 mcg/actuation inhaler Puff. 03/10/2019 Discontinued Insulin Butner, Use as 0 Disposable, 32 gauge x directed. 8 " Ndle Dispense as written, do not substitute. Brand medically necessary.. 03/10/2019 Discontinued meclizine 25 mg tablet Take 25 mg by 0 mouth. 03/10/2019 Discontinued canagliflozin (INVOKANA) Take 100 mg 0 100 mg tablet by mouth daily. 03/10/2019 Discontinued vilazodone (VIIBRYD) 20 Take 40 mg by 0 mg mouth daily. 03/10/2019 Discontinued insulin detemir U-100 inject 48 0 (LEVEMIR U-100 INSULIN) Units under 100 unit/mL injection the skin every morning and evening. 03/10/2019 Discontinued insulin aspart RAPID inject 38 0 (NOVOLOG U-100 INSULIN Units under ASPART) 100 unit/mL the skin 3 injection (three) times daily before meals. 03/10/2019 Discontinued topiramate 100 mg tablet Take 100 mg 0 by mouth 2 (two) times daily. 03/10/2019 Discontinued apixaban 5 mg Take 1 tablet 30 tablet 0 tabletIndications: Chest by mouth 2 9 pain, unspecified type, (two) times Stable angina pectoris daily. 03/10/2019 Discontinued tamsulosin 0.4 mg 24 hr Take 0.4 mg 0 capsule by mouth every morning and at 1200 (noon). 03/10/2019 Discontinued ARIPiprazole 10 mg Take 20 mg by 0 disintegrating tablet mouth daily. 03/10/2019 Discontinued ALPRAZolam (XANAX XR) 2 Take 2 mg by 0 mg 24 hr tablet mouth 2 (two) times daily. 03/10/2019 Discontinued doxepin 25 mg Take 50 mg by 0 capsuleIndications: at mouth at bedtime for insomnia bedtime. Indications: at bedtime for insomnia 03/10/2019 Discontinued prazosin 1 mg capsule Take 3 mg by 0 mouth at bedtime. 03/10/2019 Discontinued metFORMIN 1,000 mg Take 1 tablet 60 tablet 1 tabletIndications: by mouth 2 9 Syncope, unspecified (two) times syncope type daily with meals. 03/10/2019 Discontinued gabapentin 300 mg Take 1 90 capsule 1 capsuleIndications: capsule by 9 Syncope, unspecified mouth 3 syncope type (three) times daily. documented as of this encounter (statuses as of 03/10/2019) Active Problems Problem Noted Date Lower extremity [...] 01/28/2016 Dyslipidemia 01/28/2016 Coronary artery disease involving [place] coronary artery without angina 01/28/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 Tobacco abuse 01/28/2016 Chest pain 01/27/2016 Wrist pain 01/27/2016 documented as of this encounter (statuses as of 03/10/2019) Immunizations Name Administration Dates Next Due Influenza [...] of this encounter Last Filed Vital Signs Reading Time Taken Comments Vital Sign 132/84 03/10/2019 11:00 AM CDT Blood Pressure 86 03/10/2019 11:09 AM CDT Pulse 36.6 C (97.9 F) 03/10/2019 11:00 AM CDT Temperature 18 03/10/2019 11:09 AM CDT Respiratory Rate 100% 03/10/2019 11:09 AM CDT Oxygen Saturation - - Inhaled Oxygen Concentration 131.1 kg (289 lb 1.6 oz) 03/10/2019 1:23 AM CDT Weight 182.9 cm (6') 03/10/2019 1:23 AM CDT Height 39.21 03/10/2019 1:23 AM CDT Body Mass Index documented in this encounter Discharge Instructions * Attachments The following attachments cannot be sent through Care Everywhere.* Weakness (Uncertain Cause) (Ukrainian) documented in this encounter Progress Notes * Lyndsey Madsen, PT - 03/10/2019 2:18 PM CDT Attempted to see patient again this pm but patient's nurse Blossum informed me p atient had left AMA. Lyndsey Madsen, PT Pt will be followed by P.T., however, this therapist may not be the primary ther apist. Please contact rehab services at [phone]. * Lyndsey Madsen, PT - 03/10/2019 9:04 AM CDT PT Note: Consult received and EPIC reviewed. Attempted to see pt, however was gone for MR Dayana. Will attempt later as time permits. Thank you for this consult. Lyndsey Madsen, PT Pt will be followed by PDoug, however, this therapist may not be the primary ther apist. Please contact rehab services at [phone]. documented in this encounter Plan of Treatment Care Team Description Date Type Specialty Kena Rubni MD [address] [place] [address] 05/20/2019 Office Visit Neurology Order Schedule Name Type Priority Associated Diagnoses STAT for 1 Occurrences starting 03/10/2019 until 03/10/2019 ABG+COOX+NA+K+GLU+CA2+ LAB STAT Health Maintenance Due Date Last Done Comments [...] on 02/04/2016 by Humble Lester MD at [facility] FP Fully Threaded Pegs Peg screw Left: Arm Hand Implanted: Qty: 2 on 02/04/2016 by Humble Lester MD at [facility] [id number] / 20 / 20 Fullu Threaded Pegs Peg screw Left: Arm Hand Implanted: Qty: 1 on 02/04/2016 by Humble Lester MD at [facility] [id number] / / 222 Fully Threaded Peg Peg screw Left: Arm Hand Implanted: Qty: 1 on 02/04/2016 by Humble Lester MD at [facility] FP / 24 Standard Peg Nonlocking Peg screw Left: Arm Hand Implanted: Qty: 1 on 02/04/2016 by Humble Lester MD at [facility] Standard Peg Nonlocking Peg screw Left: Arm Hand Implanted: Qty: 1 on 02/04/2016 by Humble Lester MD at [facility] [id number] / / 14 Cortical Screw SCREW Left: Arm Hand Implanted: Qty: 3 on 02/04/2016 by Humble Lester MD at [facility] documented as of this encounter Procedures Comments Procedure Name Priority Date/Time Associated Diagnosis MR LUMBAR SPINE WO STAT 03/10/2019 Weakness of both lower CONTRAST 9:42 AM CDT extremities XR CHEST 1 VW SACHIN 03/10/2019 Stable angina pectoris 6:[address] HEAD WO CONTRAST STAT 03/09/2019 Weakness of both lower 10:[address] ANGIOGRAM HEAD STAT 03/09/2019 Weakness of both lower 10:55 PM CDT extremities EXTRA TUBE LT. BLUE STAT 03/09/2019 9:43 PM CDT CBC WITH DIFFERENTIAL STAT 03/09/2019 Weakness of both lower 9:32 PM CDT extremities CBC WITH DIFF Routine 03/09/2019 Weakness of both lower 9:32 PM CDT extremities BASIC METABOLIC PANEL STAT 03/09/2019 Weakness of both lower (NA, K, CL, CO2, GLUCOSE, 9:32 PM CDT extremities BUN, CREATININE, CA) TROPONIN I STAT 03/09/2019 Weakness of both lower 9:32 PM CDT extremities EKG-12 LEAD STAT 03/09/2019 9:15 PM CDT documented in this encounter Results * MR LUMBAR SPINE WO CONTRAST (03/10/2019 9:42 AM CDT) Specimen Impressions Performed At 1.No spinal canal or neural foraminal stenosis is identified in the PACS/VR/DOSE lumbar spine. No acute osseous findings are seen. 2.Mild degenerative changes are noted, mainly at L4-L5. Narrative Performed At * * * * * * * * ORIGINAL REPORT * * * * * * * * PACS/VR/DOSE INDICATIONS:L/S-spine stenosis TECHNIQUE:MRI of the lumbar spine was performed without IV contrast. COMPARISON: Radiograph 02/26/2019, CT 02/10/2019. FINDINGS: Numbering assumes 5 lumbar type vertebra. There is normal lumbar lordosis and sagittal alignment. The vertebral body heights are preserved and no acute fractures are seen. Mild disc desiccation is noted without disc height loss at L4-L5. The spinal cord terminates at L1. The distal cord and cauda equina nerve roots are within normal limits. L1-L2 through L3-L4: No spinal canal or neural foraminal stenosis is seen. L4-L5: Bilateral facet arthropathy seen with a shallow disc bulge. There is no spinal canal or neural foraminal stenosis. L5-S1: No spinal canal or neural foraminal stenosis is seen. Procedure Note [facility], Radiant Results Inft User - 03/10/2019 10:00 AM CDT * * * * * * * * ORIGINAL REPORT * * * * * * * * INDICATIONS:L/S-spine stenosis TECHNIQUE:MRI of the lumbar spine was performed without IV contrast. COMPARISON: Radiograph 02/26/2019, CT 02/10/2019. FINDINGS: Numbering assumes 5 lumbar type vertebra. There is normal lumbar lordosis and sagittal alignment. The vertebral body heights are preserved and no acute fractures are seen. Mild disc desiccation is noted without disc height loss at L4-L5. The spinal cord terminates at L1. The distal cord and cauda equina nerve roots are within normal limits. L1-L2 through L3-L4: No spinal canal or neural foraminal stenosis is seen. L4-L5: Bilateral facet arthropathy seen with a shallow disc bulge. There is no spinal canal or neural foraminal stenosis. L5-S1: No spinal canal or neural foraminal stenosis is seen. IMPRESSION 1. No spinal canal or neural foraminal stenosis is identified in the lumbar spine. No acute osseous findings are seen. 2. Mild degenerative changes are noted, mainly at L4-L5. Performing Organization Address [facility] Phone Number PACS/VR/DOSE * XR CHEST 1 VW (03/10/2019 6:44 AM CDT) Specimen Narrative Performed At * * * * * * * * ORIGINAL REPORT * * * * * * * * PACS/VR/DOSE CHEST ONE VIEW HISTORY:Cough TECHNIQUE:AP view of the chest is obtained. COMPARISON: 03/04/2019 FINDINGS: Since the previous examination slight prominence of the vascularity is noted. Linear lung markings are seen in the left lower lobe. Heart size is normal. No pleural effusion or pneumothorax is seen. A loop recorder is seen superimposed over the left heart border CONCLUSIONS: Mild pulmonary venous congestion and mild left lower lobe subsegmental atelectasis Procedure Note [facility], Radiant Results Inft User - 03/10/2019 7:46 AM CDT * * * * * * * * ORIGINAL REPORT * * * * * * * * CHEST ONE VIEW HISTORY: Cough TECHNIQUE: AP view of the chest is obtained. COMPARISON: 03/04/2019 FINDINGS: Since the previous examination slight prominence of the vascularity is noted. Linear lung markings are seen in the left lower lobe. Heart size is normal. No pleural effusion or pneumothorax is seen. A loop recorder is seen superimposed over the left heart border CONCLUSIONS: Mild pulmonary venous congestion and mild left lower lobe subsegmental atelectasis Performing Organization Address [facility] Phone Number PACS/VR/DOSE * CT ANGIOGRAM HEAD (03/09/2019 10:55 PM CDT) Specimen Impressions Performed At Normal CTA of the brain PACS/VR/DOSE RL: 6200 AFC: [id number] Narrative Performed At EXAM: CT ANGIOGRAM HEAD PACS/VR/DOSE ORDERING PHYSICIAN:MAC PAIGE HISTORY:Lower committee weakness COMPARISON: none TECHNIQUE: CT angiogram of the brain after the administration of IV contrast. Coronal and sagittal reformatted images were obtained. Multiplanar MIP reformatted images were obtained. CT performed according to ALARA principles. Findings: There is normal enhancement in the intracranial internal carotid arteries. There is normal contrast enhancement of the anterior cerebral arteries. There is normal enhancement of the middle cerebral arteries. There is normal enhancement of the posterior cerebral arteries. There is normal enhancement of the vertebral and basilar arteries. No focal stenosis or aneurysm identified.There is no intracranial enhancing mass lesion.Armstrong white matter differentiation is preserved without clear CT signs of acute ischemia.Normal contrast enhancement is noted in the dural venous sinuses. Procedure Note [facility], Radiant Results Inft User - 03/09/2019 11:42 PM CDT EXAM: CT ANGIOGRAM HEAD ORDERING PHYSICIAN:MAC PAIGE HISTORY: Lower committee weakness COMPARISON: none TECHNIQUE: CT angiogram of the brain after the administration of IV contrast. Coronal and sagittal reformatted images were obtained. Multiplanar MIP reformatted images were obtained. CT performed according to ALARA principles. Findings: There is normal enhancement in the intracranial internal carotid arteries. There is normal contrast enhancement of the anterior cerebral arteries. There is normal enhancement of the middle cerebral arteries. There is normal enhancement of the posterior cerebral arteries. There is normal enhancement of the vertebral and basilar arteries. No focal stenosis or aneurysm identified. There is no intracranial enhancing mass lesion. Armstrong white matter differentiation is preserved without clear CT signs of acute ischemia. Normal contrast enhancement is noted in the dural venous sinuses. IMPRESSION Normal CTA of the brain RL: 6200 AF: [id number] Performing Organization Address City/State[facility] Phone Number PACS/VR/DOSE * CT Head W/O Contrast (03/09/2019 10:55 PM CDT) Specimen Impressions Performed At Impression: PACS/VR/DOSE 1. No acute intracranial abnormality. RL: 6200 AFC: [id number] Narrative Performed At Clinical statement: Lower extremity weakness PACS/VR/DOSE Ordering physician: Mac Paige Hong-Lac Study: CT head without contrast. CT radiation dose protocol performed in accordance with principles of ALARA. Comparison:None Technique: Axial images were obtained from the skull base to the vertex. Findings: Brain parenchyma is normal in volume and morphology for age. No acute infarct. No intraparenchymal or extra-axial hemorrhage. No hydrocephalus. No midline shift, mass effect, or herniation. Paranasal sinuses and mastoid air cell complexes are clear. No acute osseous abnormality. Subcutaneous soft tissues are normal. Procedure Note [facility], Radiant Results Inft User - 03/09/2019 11:39 PM CDT Clinical statement: Lower extremity weakness Ordering physician: Mac Paige Hong-Lac Study: CT head without contrast. CT radiation dose protocol performed in accordance with principles of ALARA. Comparison:None Technique: Axial images were obtained from the skull base to the vertex. Findings: Brain parenchyma is normal in volume and morphology for age. No acute infarct. No intraparenchymal or extra-axial hemorrhage. No hydrocephalus. No midline shift, mass effect, or herniation. Paranasal sinuses and mastoid air cell complexes are clear. No acute osseous abnormality. Subcutaneous soft tissues are normal. IMPRESSION Impression: 1. No acute intracranial abnormality. RL: 6200 AFC: [id number] Performing Organization Address City/State/Zipcode Phone Number PACS/VR/DOSE * EXTRA TUBE LT. BLUE (03/09/2019 9:43 PM CDT) Specimen Blood Performing Organization Address City/[facility]/Zipcode Phone Number [facility] CLIA: [id number], [address] [place] [address] [facility] * CBC WITH DIFFERENTIAL (03/09/2019 9:32 PM CDT) WBC 7.12 4.20 - 10.70 [facility] 10*3/L [facility] RBC 3.85 (L) 4.26 - 5.52 10*6/L [facility] HGB 11.9 (L) 12.2 - 16.4 g/dL [facility] HCT 36.9 (L) 38.4 - 49.3 % [facility] MCV 95.8 (H) 81.7 - 95.6 fL [facility] MCH 30.9 26.1 - 32.7 pg [facility] MCHC 32.2 31.2 - 35.0 g/dL [facility] RDW-SD 51.3 38.5 - 51.6 fL [facility] RDW-CV 14.7 12.1 - 15.4 % [facility] PLT 147 (L) 150 - 328 10*3/L [facility] MPV 8.6 (L) 9.8 - 13.0 fL [facility] NRBC/100 WBC 0.0 0.0 - 10.0 /100 WBCs [facility] NRBC x10^3 <0.01 10*3/L [facility] GRAN MAT (NEUT) 75.5 % [facility] % [facility] IMM GRAN % 0.10 % [facility] LYMPH % 18.1 % [facility] MONO % 5.3 % [facility] EOS % 0.7 % [facility] BASO % 0.3 % [facility] GRAN MAT 5.37 1.99 - 6.95 10*3/uL [facility] x10^3(ANC) [facility] IMM GRAN x10^3 <0.03 0.00 - 0.06 10*3/uL [facility] LYMPH x10^3 1.29 1.09 - 3.23 10*3/uL [facility] MONO x10^3 0.38 0.36 - 1.02 10*3/uL [facility] EOS x10^3 0.05 (L) 0.06 - 0.53 10*3/uL [facility] BASO x10^3 <0.03 0.01 - 0.09 10*3/uL [facility] Specimen Blood - VENOUS Performing Organization Address City/State/Zipcode Phone Number [facility] CLIA: [id number], [address] [place] [address] [facility] * Basic Metabolic Panel (NA, K, CL, CO2, GLUCOSE, BUN, CREATININE, CA) (03/09/2019 9:32 PM CDT) NA 142 135 - 145 mmol/L [facility] K 3.3 (L) 3.5 - 5.0 mmol/L [facility] CL 111 (H) 98 - 108 mmol/L [facility] CO2 TOTAL 22 (L) 23 - 31 mmol/L [facility] AGAP 9 2 - 16 [facility] BUN 15 7 - 23 mg/dL [facility] GLUCOSE 138 (H) 70 - 110 mg/dL [facility] CREATININE 1.28 (H) 0.60 - 1.25 mg/dL [facility] CALCIUM 9.6 8.6 - 10.6 mg/dL [facility] eGFR 60.2 mL/min/1.73m2 [facility] Calculation [employer] ([facility] [place]) eGFR 73.0 mL/min/1.73m2 [facility] [employer] Calculation [facility]ITAL[facility] ([facility]) Specimen Blood - VENOUS Narrative Performed At [facility] of Glomerular Filtration Rate (GFR) and Staging of Kidney Disease* [facility] + + + + [facility] | GFR (mL/min/1.73 m2)| With Kidney Damage|Without Kidney Damage CAMPUS + + + + |>90|Stage one| Normal + + + + |60-89|Stage two| Decreased GFR + + + + |30-59|Stage three| Stage three + + + + |15-29|Stage four | Stage four + + + + |<15 (or dialysis)|Stage five | Stage five + + + + *Each stage assumes the associated GFR level has been in effect for at least three months.Stages 1 to 5, with or without kidney disease, indicate chronic kidney disease. Notes: Determination of stages one and two (with eGFR >59mL/min/1.73 m2) requires estimation of kidney damage for at least three months as defined by structural or functional abnormalities of the kidney, manifested by either: Pathological abnormalities or Markers of kidney damage (including abnormalities in the composition of the blood or urine or abnormalities in imaging tests). Performing Organization Address City/State/Zipcode Phone Number [facility] CLIA: [id number], [address] [place] [address] [facility] * Troponin I (03/09/2019 9:32 PM CDT) TROPONIN I 0.000 <=0.034 ng/mL [facility] Specimen Blood - VENOUS Narrative Performed At Equal or Less than 0.034 ng/ml---Normal [facility] Note: Cardiac troponin begins to rise 3-4 hours after the onset of ischemia. [facility] Repeat in 4-6 hours if the sample was drawn within 3-4 hours of the onset of the CAMPUS symptom and found normal. Between 0.035 and 0.120 ng/mL--- Borderline. Questionable myocardial injury or necrosis Note: Serial measurement may be necessary to confirm or exclude the diagnosis of myocardial injury or necrosis; Clinical correlation (symptoms, EKGs, imaging studies, and others) required; Repeat in 4-6 hours if clinically indicated. Equal or Higher than 0.121 ng/mL---Abnormal. Myocardial Injury or Necrosis Likely Biotin has been reported to cause a negative bias, interpret results relative to patient's use of biotin. Performing Organization Address City/State/Zipcode Phone Number [facility] CLIA: [id number], [address] [place] [address] [facility] documented in this encounter Visit Diagnoses Diagnosis Weakness of both lower extremities - Primary Stable angina pectoris Lower extremity weakness Other musculoskeletal symptoms referable to limbs documented in this encounter Administered Medications Action Date Dose Rate Site Medication Order MAR Action 03/10/2019 9:57 AM CDT 5 mg apixaban (ELIQUIS) tablet 5 mg Given 5 mg, Oral, BID, First dose on Thu03/10/19 at 0800, Until Discontinued, Routine 03/10/2019 9:57 AM CDT 10 mg ARIPiprazole (ABILIFY) tablet 10 mg Given 10 mg, Oral, DAILY, First dose on Thu03/10/19 at 0900, Until Discontinued 03/10/2019 9:57 AM CDT 300 mg gabapentin (NEURONTIN) capsule 300 mg Given 300 mg, Oral, TID, First dose on Thu03/10/19 at 0800, Until Discontinued, Routine 03/10/2019 12:04 PM CDT 100 mg guaiFENesin 100 mg/5 mL solution 100 mg Given 100 mg, Oral, Q4H, First dose on Thu03/10/19 at 1200, Until Discontinued, Routine 03/10/2019 12:04 PM CDT 1 tablet HYDROcodone-acetaminophen (NORCO 5) Given 5-325 mg tablet 1 tablet 1 tablet, Oral, Q6HPRN, Starting Nina 03/10/19 at 0146, Until 03/12/19 at 0145, Routine, Pain (scale 4-6) 1 tablet Given 03/10/2019 5:41 AM CDT 03/10/2019 10:06 AM CDT 48 Units Abdomen-SC insulin detemir U-100 (LEVEMIR U-100 Given INSULIN) injection 48 Units 48 Units, Subcutaneous, QAM+PM, First dose on Thu03/10/19 at 0900, Until Discontinued, Routine ipratropium-albuterol (DUONEB) 0.5 mg-3 mg(2.5 mg base)/3 mL nebulizer solution 3 mL 3 mL, Inhalation, Q4HPRN, Starting Thu03/10/19 at 1130, Until Discontinued, Routine, Wheezing 03/10/2019 12:04 PM CDT 0.4 mg tamsulosin (FLOMAX) capsule 0.4 mg Given 0.4 mg, Oral, QAM + NOON, First dose on Thu03/10/19 at 0900, Until Discontinued, Routine 0.4 mg Given 03/10/2019 9:58 AM CDT 03/10/2019 9:57 AM CDT 100 mg topiramate (TOPAMAX) tablet 100 mg Given 100 mg, Oral, BID, First dose on Thu03/10/19 at 0800, Until Discontinued, Routine, 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 Restricted medication: ELZBIETA VIDAL Action Date Dose Rate Site Medication Order MAR Action 03/09/2019 11:30 PM CDT 100 mL iohexol (OMNIPAQUE 350 BULK-100 mL) Given injection 100 mL 100 mL, Intravenous, ONCE, 1 dose, [facility] 03/09/19 at 2330, Routine 03/10/2019 10:57 AM CDT 3 mL ipratropium-albuterol (DUONEB) 0.5 mg-3 Given mg(2.5 mg base)/3 mL nebulizer solution 3 mL 3 mL, Inhalation, QID, First dose on Thu03/10/19 at 0800, Until Discontinued, Routine 03/10/2019 8:45 AM CDT 1 mg LORazepam (ATIVAN) tablet 1 mg Given 1 mg, Oral, ONCE, 1 dose, [facility] 03/10/19 at 0830, Routine 03/09/2019 10:31 PM CDT 4 mg morpHINE injection 4 mg Given 4 mg, Slow IV Push, ONCE, 1 dose, Thu03/09/19 at 2330, STAT 03/09/2019 10:31 PM CDT 4 mg ondansetron (ZOFRAN (PF)) injection 4 mg Given 4 mg, Slow IV Push, ONCE, 1 dose, Thu03/09/19 at 2330, SACHIN documented in this encounter Insurance Type Payer Benefit Subscriber ID Effective Phone Address Plan / Dates Group Medicare MEDICARE MEDICARE xxxxxxxxxxx 2019-P [phone] resent [id number] VIKAS BERMUDEZ [id number] documented as of this encounter
--- OUTSIDE RECORDS SUMMARY | 2019-03-30 16:09 | XMS REPORT | Summary of Care ---
Author Author [facility] - Health Organization [facility] - Health Address Unknown Phone Unavailable Care Team Providers Care Warehouse Associate Driver Name Role Phone Eduardo Arturo PCP Reason for Referral * Radiology Services (STAT) Referred By Contact Referred To Contact Status Reason Specialty Diagnoses / Procedures Mca Paige, DO [address] [address] New Request Diagnostic Diagnoses Radiology Chest pain, unspecified type P rocedures Chest 1 View * Radiology Services (STAT) Referred By Contact Referred To Contact Status Reason Specialty Diagnoses / Procedures Mac Paige, DO [address] [address] New Request Diagnostic Diagnoses Radiology Chest pain, unspecified type P rocedures Chest 1 View Reason for Visit * Reason Comments Chest Pain left arm radiating * Auth/Cert Referred By Contact Referred To Contact Status Reason Specialty Diagnoses / Procedures [facility] Emergency Dept [address] [place] [address] Emergency Medicine Encounter Details Care Team Description Date Type Department Mac Paige, DO [address] [place] [address] [phone] Chest pain, unspecified type (Primary Dx) 03/04/2019 Emergency [facility] [address] [place] [address] Allergies Comments Active Allergy Reactions Severity Noted Date Cefazolin Sodium Itching 09/24/2018 Ciprofloxacin Hives 02/28/2019 Patient states he develops hives Codeine Hives Low 04/29/2018 Cyclobenzaprine Hives 01/08/2019 Methylprednisolone Hives 01/27/2016 Penicillin Itching 11/30/2016 Mirtazapine Itching 04/22/2017 Ketorolac Tromethamine Itching 01/26/2016 Tramadol Hives Medium 12/12/2018 documented as of this encounter (statuses as of 03/04/2019) Medications End Date Status Medication Sig Dispensed Refills Start Date Active atorvastatin 80 mg tablet Take 80 mg by 0 mouth at bedtime. Active pantoprazole 40 mg EC Take 40 mg by 0 tablet mouth daily. Active nitroglycerin 0.[address] 1 1 Bottle 11 sublingual tablet tablet under 7 the tongue every 5 (five) minutes as needed for Chest pain. Active albuterol 90 Inhale 1 0 mcg/actuation inhaler Puff. Active Insulin [place], Use as 0 Disposable, 32 gauge x directed. 8 " Ndle Dispense as written, do not substitute. Brand medically necessary.. Active meclizine 25 mg tablet Take 25 mg by 0 mouth. Active canagliflozin (INVOKANA) Take 100 mg 0 100 mg tablet by mouth daily. Active vilazodone (VIIBRYD) 20 Take 40 mg by 0 mg mouth daily. Active insulin detemir U-100 inject 48 0 (LEVEMIR U-100 INSULIN) Units under 100 unit/mL injection the skin every morning and evening. Active insulin aspart RAPID inject 38 0 (NOVOLOG U-100 INSULIN Units under ASPART) 100 unit/mL the skin 3 injection (three) times daily before meals. Active topiramate 100 mg tablet Take 100 mg 0 by mouth 2 (two) times daily. Active apixaban 5 mg Take 1 tablet 30 tablet 0 tabletIndications: Chest by mouth 2 9 pain, unspecified type, (two) times Stable angina pectoris daily. Active tamsulosin 0.4 mg 24 hr Take 0.4 mg 0 capsule by mouth every morning and at 1200 (noon). Active ARIPiprazole 10 mg Take 20 mg by 0 disintegrating tablet mouth daily. Active ALPRAZolam (XANAX XR) 2 Take 2 mg by 0 mg 24 hr tablet mouth 2 (two) times daily. Active doxepin 25 mg Take 50 mg by 0 capsuleIndications: at mouth at bedtime for insomnia bedtime. Indications: at bedtime for insomnia Active prazosin 1 mg capsule Take 3 mg by 0 mouth at bedtime. Active metFORMIN 1,000 mg Take 1 tablet 60 tablet 1 tabletIndications: by mouth 2 9 Syncope, unspecified (two) times syncope type daily with meals. Active gabapentin 300 mg Take 1 90 capsule 1 capsuleIndications: capsule by 9 Syncope, unspecified mouth 3 syncope type (three) times daily. 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 Tobacco abuse 01/28/2016 Chest pain 01/27/2016 Wrist pain 01/27/2016 documented as of this encounter (statuses as of 03/04/2019) Immunizations Name Administration Dates Next Due Influenza [...] Signs Reading Time Taken Comments Vital Sign 136/79 03/04/2019 4:03 AM CDT Blood Pressure 81 03/04/2019 4:03 AM CDT Pulse 37.1 C (98.8 F) 03/04/2019 3:05 AM CDT Temperature 17 03/04/2019 4:03 AM CDT Respiratory Rate 99% 03/04/2019 4:03 AM CDT Oxygen Saturation - - Inhaled Oxygen Concentration 129.7 kg (285 lb 14.4 oz) 03/04/2019 3:05 AM CDT Weight 182.9 cm (6') 03/04/2019 3:05 AM CDT Height 38.78 03/04/2019 3:05 AM CDT Body Mass Index documented in this encounter Discharge Instructions * Attachments The following attachments cannot be sent through Care Everywhere.* Chest Pain, Uncertain Cause ([place]) documented in this encounter Plan of Treatment Care Team Description Date Type Specialty Fernando Rodriguez MD [address] [place] [phone] Outpt-Aye, Pacemaker/Icd 03/10/2019 Appointment Cardiac Electrophysiology Kena Rubin MD [address] [place] [address] [phone] 05/20/2019 Office Visit Neurology Date/Time Name Type Priority Associated Diagnoses 03/04/2019 3:08 AM CDT EXTRA TUBE LT. [facility]UE [facility] ONLY STAT Order Schedule Name Type Priority Associated Diagnoses ONCE for 1 Occurrences starting 03/04/2019 until 03/04/2019 EXTRA TUBE LT. [facility] ONLY Routine Health Maintenance Due Date Last Done Comments EYE EXAM 1981 URINE MICROALBUMIN 1981 FOOT EXAM 1989 DTaP,Tdap,and Td Vaccines 1990 (1 - Tdap) PNEUMOCOCCAL 0-64 YEARS 09/04/2018 07/10/2018 COMBINED SERIES (1 of 1 - PPSV23) INFLUENZA VACCINE 04/10/2019 07/10/2018 HgA1C 07/10/2019 01/08/2019, 04/25/2018, 01/27/2016 LDL-C 02/20/2020 02/19/2019, 04/20/2017, 01/27/2016 CREATININE (SERUM) 02/29/2020 02/28/2019, 02/27/2019, 02/26/2019, Additional history exists documented as of this encounter Implants Device Identifier Shelf Expiration Date Model / Serial / 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 DVRAS-LEFT / DVRAS-LEFT / DVRAS-LEFT Dvr Left Plate PLATE Left: Arm Hand Implanted: Qty: 1 on 02/04/2016 by Humble Lester MD at [facility] FP Fully Threaded Pegs Peg screw Left: Arm Hand Implanted: Qty: 2 on 02/04/2016 by Humble Lester MD at [facility] [id number] Fullu Threaded Pegs Peg screw Left: Arm Hand Implanted: Qty: 1 on 02/04/2016 by Humble Lester MD at [facility] FP Fully Threaded Peg Peg screw Left: Arm Hand Implanted: Qty: 1 on 02/04/2016 by Humble Lester MD at [facility] FP Standard Peg Nonlocking Peg screw Left: Arm Hand Implanted: Qty: 1 on 02/04/2016 by Humble Lester MD at [facility] Standard Peg Nonlocking Peg screw Left: Arm Hand Implanted: Qty: 1 on 02/04/2016 by Humble Lester MD at [facility] [id number] / 14 / 14 Cortical Screw SCREW Left: Arm Hand Implanted: Qty: 3 on 02/04/2016 by Humble Lester MD at [facility] documented as of this encounter Procedures Comments Procedure Name Priority Date/Time Associated Diagnosis XR CHEST 1 VW STAT 03/04/2019 Chest pain, unspecified 3:33 AM CDT type BASIC METABOLIC PANEL STAT 03/04/2019 Chest pain, unspecified (NA, K, CL, CO2, GLUCOSE, 3:09 AM CDT type BUN, CREATININE, CA) TROPONIN I STAT 03/04/2019 Chest pain, unspecified 3:09 AM CDT type CBC WITH DIFFERENTIAL STAT 03/04/2019 Chest pain, unspecified 3:08 AM CDT type CBC WITH DIFF Routine 03/04/2019 Chest pain, unspecified 3:08 AM CDT type EKG-12 LEAD STAT 03/04/2019 3:07 AM CDT documented in this encounter Results * Chest 1 View (03/04/2019 3:33 AM CDT) Specimen Impressions Performed At Impression: PACS/VR/DOSE No radiographic evidence for acute cardiopulmonary disease. RL: [id number] AFC: [id number] Narrative Performed At Indication: Chest pain PACS/VR/DOSE Comparison: None Findings: Single AP view of the chest. The cardiopericardial silhouette is within normal limits. The lungs are clear bilaterally. The visualized bony thorax is intact. Procedure Note [facility], Radiant Results Inft User - 03/04/2019 3:57 AM CDT Indication: Chest pain Comparison: None Findings: Single AP view of the chest. The cardiopericardial silhouette is within normal limits. The lungs are clear bilaterally. The visualized bony thorax is intact. IMPRESSION Impression: No radiographic evidence for acute cardiopulmonary disease. RL: [id number] AFC: [id number] Performing Organization Address City/State/Zipcode Phone Number PACS/VR/DOSE * Basic Metabolic Panel (NA, K, CL, CO2, GLUCOSE, BUN, CREATININE, CA) (03/04/2019 3:09 AM CDT) NA 140 135 - 145 mmol/L [facility] K 3.9 3.5 - 5.0 mmol/L [facility] CL 108 98 - 108 mmol/L [facility] CO2 TOTAL 21 (L) 23 - 31 mmol/L [facility] AGAP 11 2 - 16 [facility] BUN 12 7 - 23 mg/dL [facility] GLUCOSE 105 70 - 110 mg/dL [facility] CREATININE 1.32 (H) 0.60 - 1.25 mg/dL [facility] CALCIUM 9.8 8.6 - 10.6 mg/dL [facility] eGFR 58.1 mL/min/1.73m2 [facility] Calculation [facility] ([facility]) eGFR 70.5 mL/min/1.73m2 [facility] Calculation [facility] ([facility]) Specimen Blood - VENOUS Narrative Performed At [facility] of Glomerular Filtration Rate (GFR) and Staging of Kidney Disease* [facility] + + + + [facility] | GFR (mL/min/1.73 m2)| With [...] tests). Performing Organization Address City/State/Zipcode Phone Number [facility] CLIA: [id number], [address] [place] [address] [facility] * Troponin I (03/04/2019 3:09 AM CDT) TROPONIN I 0.003 <=0.034 ng/mL [facility] Specimen Blood - VENOUS Narrative Performed At Equal or Less than 0.034 ng/ml---Normal [facility] Note: Cardiac troponin begins to rise 3-4 hours after the onset of ischemia. [facility] Repeat in 4-6 hours if the sample was drawn within 3-4 hours of the onset of the [place] symptom and found normal. Between 0.035 and [...] biotin. Performing Organization Address City/State/Zipcode Phone Number [facility] CLIA: [id number], [address], [place] [phone] [facility] * CBC WITH DIFFERENTIAL (03/04/2019 3:08 AM CDT) WBC 7.49 4.20 - 10.70 [facility] 10*3/L [facility] RBC 4.40 4.26 - 5.52 10*6/L [facility] HGB 13.7 12.2 - 16.4 g/dL [facility] HCT 41.8 38.4 - 49.3 % [facility] MCV 95.0 81.7 - 95.6 fL [facility] MCH 31.1 26.1 - 32.7 pg [facility] MCHC 32.8 31.2 - 35.0 g/dL [facility] RDW-SD 48.9 38.5 - 51.6 fL [facility] RDW-CV 14.3 12.1 - 15.4 % [facility] PLT 159 150 - 328 10*3/L [facility] MPV 8.4 (L) 9.8 - 13.0 fL [facility] NRBC/100 WBC 0.0 0.0 - 10.0 /100 WBCs [facility] NRBC x10^3 <0.01 10*3/L [facility] GRAN MAT (NEUT) 66.8 % [facility] IMM GRAN % 0.40 % [facility] LYMPH % 25.4 % [facility] MONO % 6.3 % [facility] EOS % 0.7 % [facility] BASO % 0.4 % [facility] GRAN MAT 5.01 1.99 - 6.95 10*3/uL [facility] x10^3([facility] IMM GRAN x10^3 0.03 0.00 - 0.06 10*3/uL [facility] LYMPH x10^3 1.90 1.09 - 3.23 10*3/uL [facility] MONO x10^3 0.47 0.36 - 1.02 10*3/uL [facility] EOS x10^3 0.05 (L) 0.06 - 0.53 10*3/uL [facility] BASO x10^3 0.03 0.01 - 0.09 10*3/uL [facility] Specimen Blood - VENOUS Performing Organization Address City/State/Zipcode Phone Number [facility] CLIA: [id number], [address] [place] [address] [facility] documented in this encounter Visit Diagnoses Diagnosis Chest pain, unspecified type - Primary documented in this encounter Insurance Type Payer Benefit Subscriber ID Effective Phone Address Plan / Dates Group Medicare MEDICARE MEDICARE xxxxxxxxxxx 2019-P [phone] resent [id number] VIKAS BERMUDEZ [id number] documented as of this encounter
--- OUTSIDE RECORDS SUMMARY | 2019-03-30 16:10 | XMS REPORT | Summary of Care ---
Author Author [facility] - Health Organization [facility] - Health Address Unknown Phone Unavailable Care Team Providers Care Team Automobile Assembler Name Role Phone Peter Clark PCP Reason for Referral * (Routine) Referred By Contact Referred To Contact Status Reason Specialty Diagnoses / Procedures Dexter Vang MD [address] [place] [phone] New Request IM-CLINICAL Diagnoses CARDIAC Syncope, ELECTROPHYSIOLOG unspecified Y syncope type P rocedures Discharge Follow-Up: Specialty Service IM-CLINICAL CARDIAC ELECTROPHYSIOLOGY; 2 Months * (Routine) Referred By Contact Referred To Contact Status Reason Specialty Diagnoses / Procedures Dexter Vang MD [address] [place] [phone] Peter Clark [address] [place] [address] New Request Diagnoses Syncope, unspecified syncope type P rocedures Discharge Follow-up: PCP PETER CLARK; 3-5 Days * MRI/CAT Scan (STAT) Referred By Contact Referred To Contact Status Reason Specialty Diagnoses / Procedures Peng Casey DO [address] [address] New Request Diagnostic Diagnoses Radiology Back pain due to injury P rocedures CT THORACIC SPINE WO CONTRAST * MRI/CAT Scan (STAT) Referred By Contact Referred To Contact Status Reason Specialty Diagnoses / Procedures Peng Casey DO [address] [employer] [facility] [address] [place] [address] New Request Diagnostic Diagnoses Radiology Back pain due to injury P rocedures CT THORACIC SPINE WO CONTRAST * MRI/CAT Scan (STAT) Referred By Contact Referred To Contact Status Reason Specialty Diagnoses / Procedures Peng Casey DO [address] [place] [address] New Request Diagnostic Diagnoses Radiology Head injury with loss of consciousness P rocedures CT CERVICAL SPINE WO CONTRAST * MRI/CAT Scan (STAT) Referred By Contact Referred To Contact Status Reason Specialty Diagnoses / Procedures Peng Casey DO [address] [place] [address] New Request Diagnostic Diagnoses Radiology Head injury with loss of consciousness P rocedures CT HEAD WO CONTRAST * MRI/CAT Scan (STAT) Referred By Contact Referred To Contact Status Reason Specialty Diagnoses / Procedures Peng Casey DO [address] [place] [address] New Request Diagnostic Diagnoses Radiology Head injury with loss of consciousness P rocedures CT CERVICAL SPINE WO CONTRAST * MRI/CAT Scan (STAT) Referred By Contact Referred To Contact Status Reason Specialty Diagnoses / Procedures Peng Casey DO [address] [place] [address] New Request Diagnostic Diagnoses Radiology Head injury with loss of consciousness P rocedures CT HEAD WO CONTRAST Reason for Visit * Reason Comments Other syncopal episode * Auth/Cert Referred By Contact Referred To Contact Status Reason Specialty Diagnoses / Procedures [facility] Emergency Dept [address] [place] [phone] Emergency Medicine Encounter Details Care Team Description Date Type Department Peng Casey [address] [address] [phone] Dexter Vang MD [address] [place] [phone] Princess Sanford MD [address] [place] [id number] Syncope 03/17/2019 Emergency [facility] - [address] [facility] 03/18/2019 [place] [address] Allergies Comments Active Allergy Reactions Severity Noted Date Cefazolin Sodium Itching 09/24/2018 Ciprofloxacin Hives 02/28/2019 Patient states he denies codeine allergy Codeine Hives Low 04/29/2018 Cyclobenzaprine Hives 01/08/2019 Methylprednisolone Hives 01/27/2016 Penicillin Itching 11/30/2016 Mirtazapine Itching 04/22/2017 Ketorolac Tromethamine Itching 01/26/2016 Tramadol Hives Medium 12/12/2018 documented as of this encounter (statuses as of 03/18/2019) Medications End Date Status Medication Sig Dispensed Refills Start Date Active apixaban 5 mg tablet Take 5 mg by 0 mouth 2 (two) times daily. Active HYDROcodone-acetaminophen Take 1 tablet 0 10-325 mg tablet by mouth every 6 (six) hours as needed. Active ALPRAZolam 2 mg 24 hr Take 2 mg by 0 tablet mouth 2 (two) times daily. Active doxepin 25 mg capsule Take 25 mg by 0 mouth at bedtime. Active gabapentin 300 mg capsule Take 300 mg 0 by mouth 3 (three) times daily. Active prazosin 1 mg capsule Take 1 mg by 0 mouth at bedtime. Active metFORMIN 1,000 mg tablet Take 1,000 mg 0 by mouth 2 (two) times daily with meals. Active ARIPiprazole 10 mg Take 10 mg by 0 disintegrating tablet mouth 2 (two) times daily. Active topiramate 100 mg tablet Take 100 mg 0 by mouth 2 (two) times daily. Active insulin detemir U-100 100 inject 44 0 unit/mL injection Units under the skin 2 (two) times daily. Active insulin aspart RAPID 100 inject under 0 unit/mL injection the skin 3 (three) times daily before meals. Active vilazodone (VIIBRYD) 20 Take 20 mg by 0 mg mouth daily. Active meclizine 25 mg tablet Take 25 mg by 0 mouth 3 (three) times daily as needed. Active albuterol 90 Inhale 2 0 mcg/actuation inhaler Puffs every 6 (six) hours as needed for Wheezing or Shortness of Breath. Active atorvastatin 80 mg tablet Take 80 mg by 0 mouth at bedtime. Active nitroglycerin 0.[address] 0.4 mg 0 sublingual tablet under the tongue every 5 (five) minutes as needed for Chest pain. Active pantoprazole 40 mg EC Take 40 mg by 0 tablet mouth daily. 03/18/2019 Discontinued tamsulosin 0.4 mg 24 hr Take 0.4 mg 0 capsule by mouth every morning and at 1200 (noon). documented as of this encounter (statuses as of 03/18/2019) Active Problems Problem Noted Date Lower extremity [...] 01/28/2016 Dyslipidemia 01/28/2016 Coronary artery disease involving mcgrath coronary artery without angina 01/28/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 Tobacco abuse 01/28/2016 Chest pain 01/27/2016 Wrist pain 01/27/2016 documented as of this encounter (statuses as of 03/18/2019) Immunizations Name Administration Dates Next Due Influenza Virus Vaccine 07/10/2018 Pneumococcal 13 07/10/2018 Conjugate, PCV13 (Prevnar 13) documented as of this encounter Social History Date Tobacco Use Types Packs/Day Years Used Quit: 02/10/2017 Former Smoker Cigarettes 0.5 20 Smokeless Tobacco: Current User Tobacco Cessation: Ready to Quit: Yes; Counseling Given: Yes Drinks/Week oz/Week Comments Alcohol Use 0 Standard [...] Reading Time Taken Comments Vital Sign 124/78 03/18/2019 12:00 PM CDT Blood Pressure 65 03/18/2019 12:00 PM CDT Pulse 36.8 C (98.3 F) 03/18/2019 12:00 PM CDT Temperature 18 03/18/2019 12:00 PM CDT Respiratory Rate 99% 03/18/2019 12:00 PM CDT Oxygen Saturation - - Inhaled Oxygen Concentration 130.5 kg (287 lb 12.8 oz) 03/17/2019 5:34 AM CDT Weight 182.9 cm (6') 03/17/2019 5:34 AM CDT Height 39.03 03/17/2019 5:34 AM CDT Body Mass Index documented in this encounter Discharge Summaries * Sylvester Desouza MD - 03/18/2019 12:06 PM CDT Fernando Team Discharge Summary Date of Service: 03/18/19 ADMIT DATE: 03/17/2019 DISCHARGE DATE: 03/18/19 ATTENDING MD: Taj MEDINA MD: Marcos Desouza PCP: Peter Clark REASON FOR ADMISSION syncope FINAL DIAGNOSIS: (the reason, after study, for admitting the patient to the hosp ital) Recurrent syncope likely 2/2 polypharmacy SECONDARY DIAGNOSIS: (any diagnosis that, on this admission, required clinical e valuation, therapeutic treatment, diagnostic procedures, extended hospital stay, or additional nursing care/monitoring) Lethargy Polypharmacy Syncope PTSD Psychogenic Nonepileptic Seizures Type II DM Mellitus, A1C 6% DM Peripheral Neuropathy CKDII HTN HLD BPH H/O PE Diarrhea Active Problems: Syncope (02/20/2019) POA: Yes Resolved Problems: * No resolved hospital problems. * Orders Placed This Encounter CONSULT CARDIAC EP/[facility] CONSULT PSYCHIATRY Discharge Follow-up: PCP PETER CLARK; 3-5 Days No orders of the defined types were placed in this encounter. SIGNIFICANT LAB/X-RAYS: Lab results: CBC BMP PT/INR WBC (10*3/L) Date Value 03/17/2019 7.94 NA (mmol/L) Date Value 03/17/2019 141 No results found for: PT RBC (10*6/L) Date Value 03/17/2019 3.99 (L) K (mmol/L) Date Value 03/17/2019 4.3 INR (no units) Date Value 02/27/2019 1.0 PLT (10*3/L) Date Value 03/17/2019 146 (L) CALCIUM (mg/dL) Date Value 03/17/2019 9.4 HGB (g/dL) Date Value 03/17/2019 12.2 CL (mmol/L) Date Value 03/17/2019 109 (H) aPTT HCT (%) Date Value 03/17/2019 37.2 (L) BUN (mg/dL) Date Value 03/17/2019 14 APTT Patient (Seconds) Date Value 02/27/2019 30 CREATININE (mg/dL) Date Value 03/17/2019 1.22 GLUCOSE (mg/dL) Date Value 03/17/2019 121 (H) CO2 TOTAL (mmol/L) Date Value 03/17/2019 23 X-ray results: Chest 1 View Result Date: 03/04/2019 Impression: No radiographic evidence for acute cardiopulmonary disease. RL: 460 AFC: [id number] Chest 1 View Result Date: 02/26/2019 No acute intrathoracic abnormality. Chest 2 Views Result Date: 02/21/2019 No acute cardiopulmonary abnormality. IOneil MD., have reviewed this s tudy and agree with the above report. Xr Chest 2 Vw Result Date: 02/19/2019 No acute cardiopulmonary process is identified. Ira Anne MD., valera ve reviewed this study and agree with the above report. Ct Cervical Spine Wo Contrast Result Date: 03/17/2019 Impression: No CT evidence for acute intracranial abnormality. No acute fracture or dislocation of the cervical spine. RL: 460 AFC: [id number] Ct Angiogram Head Result Date: 03/09/2019 Normal CTA of the brain RL: 6200 AFC: 50702 Ct Head Wo Contrast Result Date: 03/17/2019 Impression: No CT evidence for acute intracranial abnormality. No acute fracture or dislocation of the cervical spine. RL: 460 AFC: [id number] Ct Head W/o Contrast Result Date: 03/12/2019 Impression: No CT evidence for acute intracranial abnormality. RL: 460 AFC: 99[address] 3 Ct Head W/o Contrast Result Date: 03/09/2019 Impression: 1. No acute intracranial abnormality. RL: 6200 AFC: 28098 Ct Head Wo Contrast Result Date: 02/28/2019 No acute intracranial abnormality. IGlenn have reviewed this cameron dy and agree with the above report. Glenn Anne MD., have reviewed this study and agree with the above report. Ct Head Wo Contrast Result Date: 02/19/2019 No acute intracranial abnormality. IJose MD., have reviewed this s tudy and agree with the above report. Ct Thoracic Spine Wo Contrast Result Date: 03/17/2019 No acute osseous abnormality of the thoracic spine. RL: 460 AFC: 30293 Mr Lumbar Spine Wo Contrast Result Date: 03/10/2019 1. No spinal canal or neural foraminal stenosis is identified in the lumbar spi ne. No acute osseous findings are seen. 2. Mild degenerative changes are noted, mainly at L4-L5. Xr Lumbar Spine 2 Vw Result Date: 02/26/2019 1. No acute fracture or subluxation of the thoracic spine. 2. No acute fracture pars defect or subluxation of the lumbar spine. RL: 5611 AFC: 81351 Xr Spine Thoracic 2 Vw Result Date: 02/26/2019 1. No acute fracture or subluxation of the thoracic spine. 2. No acute fracture pars defect or subluxation of the lumbar spine. RL: 5611 AFC: 76386 Xr Shoulder 2+ Vw Right Result Date: 03/12/2019 No acute osseous abnormality of the right shoulder. RL: 460 AFC: [id number] Radiology study indicated for follow-up? No HOSPITAL COURSE: Tejinder Welsh is a 48 year old male with HTN, HLD, DM2, PTS, psychogenic non -epileptic seizures who is admitted for recurrent syncope. Orthostatics negativ e. Labs unremarkable. CT head and cervical spine unremarkable. In the mornin g after admission, patient lethargic, suspect 2/2 polypharmacy. Requested EP to evaluate loop recorder and no events noted. Psychiatry assisted with evaluating patient's home psychiatric medication regimen and stated to continue all and h ave patient discuss with own psychiatrist. Lethargy continued to improve over t he course of the day. Patient without falls during admission and without dizzine ss. He is clinically stable and safe for discharge with follow-up with PCP, own psychiatrist, and pain doctor for management of polypharmacy. Of note, patient complaining of diarrhea. He has no fever or leukocytosis so do not believe this to be infectious. Can work-up outpatient if continues. ITEMS FOR FOLLOW UP PROVIDER: (including pending labs/cultures/studies, anticipa dionisio problems, etc.) -work on polypharmacy -consider diarrhea work-up if persists and possible referral to GI -re-evaluate need for eliquis -f/u with EP in 8 weeks -f/u with psychiatrist -f/u with pain medicine doctor FUNCTIONAL STATUS: fully ambulatory DISCHARGE CONDITION: fair COGNITIVE STATUS: cognitively intact DIET: low salt ACTIVITY: as tolerated DISCHARGE MEDICATIONS: Current Discharge Medication List CONTINUE these medications which have NOT CHANGED Details albuterol (VENTOLIN) 2 Puffs Inhale 2 Puffs every 6 (six) hours as needed for Wh eezing or Shortness of Breath. ALPRAZolam (XANAX XR) 2 mg Take 2 mg by mouth 2 (two) times daily. apixaban (ELIQUIS) 5 mg Take 5 mg by mouth 2 (two) times daily. ARIPiprazole (ABILIFY) 10 mg Take 10 mg by mouth 2 (two) times daily. atorvastatin (LIPITOR) 80 mg Take 80 mg by mouth at bedtime. doxepin (SINEQUAN) 25 mg Take 25 mg by mouth at bedtime. gabapentin (NEURONTIN) 300 mg Take 300 mg by mouth 3 (three) times daily. HYDROcodone-acetaminophen (NORCO) 1 tablet Take 1 tablet by mouth every 6 (six) hours as needed. insulin aspart RAPID 100 unit/mL injection inject under the skin 3 (three) time s daily before meals. insulin detemir U-100 (LEVEMIR U-100 INSULIN) 44 Units inject 44 Units under the skin 2 (two) times daily. meclizine (TRAVEL-EASE (MECLIZINE)) 25 mg Take 25 mg by mouth 3 (three) times da lovely as needed. metFORMIN (GLUCOPHAGE) 1,000 mg Take 1,000 mg by mouth 2 (two) times daily with meals. nitroglycerin (NITROSTAT) 0.[address] 0.4 mg under the tongue every 5 (five) m inutes as needed for Chest pain. prazosin (MINIPRES) 1 mg Take 1 mg by mouth at bedtime. topiramate (TOPAMAX) 100 mg Take 100 mg by mouth 2 (two) times daily. vilazodone (VIIBRYD) 20 mg Take 20 mg by mouth daily. pantoprazole (PROTONIX) 40 mg Take 40 mg by mouth daily. STOP taking these medications tamsulosin (FLOMAX) 0.4 mg Comments: Reason for Stopping: ANTIBIOTICS: Did this patient receive antibiotics during this admission, or is he/sh being di scharged with antibiotics? No Was the patient given education on antibiotic indication, duration, and adverse effects? COUMADIN: Is the patient being discharged on coumadin? No.. WOUND CARE: none CODE STATUS: full code OXYGEN (is patient being discharged on oxygen): no CORE MEASURES: None VACCINES: 1. Pneumonia Vaccination> 65 years of age or high risk:nursing to address 2. Influenza Vaccine >18 years of age: nursing to address PATIENT EDUCATION PROVIDED: medications DISCHARGE: home self care FOLLOW-UP APPOINTMENT: Future Appointments Provider Department Dept Phone Center 05/20/2019 9:30 AM Kena Rubin MD [facility] PLAN FOR READMISSION: No Discharge Orders Discharge Follow-up: PCP PETER CLARK; 3-5 Days To PCP: PETER CLARK [[id number]] Patient's Preferred Location: Unknown Discharge Disposition: HOME, (AHR) When (Patients with risk for unplanned readmission score over 16 or those noted as Hospital Dependent should follow up within 7 days with PCP or primary DX spec ialist): 3-5 Days Risk of Unplanned Readmission:( Score greater than 16 indicates high risk) 67 Regular Diet; Texture: Regular. Texture Regular. Diabetic: NIDDM Discharge Condition - Discharge Condition: FAIR Discharge Activity Discharge Activity: As Tolerated Discharge Follow-Up: Specialty Service IM-CLINICAL CARDIAC ELECTROPHYSIOLOGY; 2 Months Specialty: IM-CLINICAL CARDIAC ELECTROPHYSIOLOGY [133] Patient's Preferred Location: Unknown Discharge Disposition: HOME, (AHR) When (Patients with risk for unplanned readmission score over 16 or those noted as Hospital Dependent should follow up within 7 days with PCP or primary DX spec ialist): 2 Months Risk of Unplanned Readmission:( Score greater than 16 indicates high risk) 67 Discharge Instructions Order Comments: Follow up with your pain doctor and psychiatrist and consider de creasing some of your medicines as these may be causing falls. Follow up with cardiology in 8 weeks (appointment requested at discharge) for lo op recorder Follow up with your primary care doctor within 3-5 days VTE Propylaxis- Was ordered during hospitalization Please call paging services at [phone] to contact Sylvester Desouza MD with any questions. Associated attestation - Dexter Vang MD - 03/18/2019 12:31 PM CDT I personally examined the patient on 03/18/[address] Desouza's beckai jose rafael note as written. I actively participated in the decision-making process. P leonor see the resident's note for additional details. * Misael Rodríguez MD - 03/17/2019 6:51 AM CDT Internal Medicine Handoff Note 03/17/19 5:47 PM Admitting Resident: Dr. Emerson Current Resident: Dr. Rodríguez Team: Fernando Team Brief HPI: Tejinder Welsh is a 48 year old male with HTN, HLD, DM2, PTS, psyc hogenic non-epileptic seizures who is admitted for recurrent syncope. Orthostat ics negative. Labs unremarkable. CT head and cervical spine unremarkable. In the morning, patient lethargic, suspect 2/2 polypharmacy. Requested EP to eval uate loop recorder for events. Psychiatry assisted with evaluating patient's ho me psychiatric medication regimen. Lethargy continued to improve over the cours e of the day. Assessment/Plan: Lethargy Polypharmacy Syncope PTSD Psychogenic Nonepileptic Seizures Assessment: Orthostatic vitals negative. Patient lethargic this morning but als o got his xananx - will hold & obtain ABG. Will evaluate ILR and request psychiatry assistance narrowing medications Plan: - Outpatient sleep study - EP to evaluate ILR - Psychiatry to evaluate patient's mediations and provide recommendations on red ucing polypharmacy - Hold Xanax - If patient requires BZD, f/u psych recs & order as 1x medication - ETOH, UDS, ABG - c/w Abilify, doxepin, topiramate, vilazodone Type II DM Mellitus, A1C 6% DM Peripheral Neuropathy CKDII - PRN hypoglycemia protocol - Lantus 36u BID - SSI-Aspart TID+HS HTN | HLD - c/w Atorvastatin 80 mg qHS BPH - c/w Flomax H/O PE - c/w Eliquis 5 mg BID Disposition: D/C on 03/17 Misael Rodríguez M.D. Department of Internal Medicine PGY-3, [facility] Team Doctor's Number: [id number] Pager: [phone] documented in this encounter Discharge Instructions * Attachments The following attachments cannot be sent through Care Everywhere.* Dizziness (Vertigo) and Balance Problems: Staying Safe (Azeri) documented in this encounter Progress Notes * Tre Dupree MSW - 03/17/2019 10:49 AM CDT Care Management Social Functional Assessment Patient Name: Tejinder Welsh Age: [age] year old Sex: male 90P Patient's Previous Admission Date at [facility]: 03/10/2019 Current diagnosis and co-morbidities: syncope Readmission Questions: Was patient discharged from any acute care hospital within the last 30 days: Yes Were all questions regarding previous illness/diagnosis answered prior to discha rge: Yes Did you have any difficulties with your discharge instructions: No Were you able to go to your follow-up discharge appointments: Yes Any difficulties after discharge with medications: Yes If Yes, comment: Per family report Pt has difficulty with some psych medications . Psych has been consulted. Any difficulties after discharge with transportation: No Any difficulties after discharge with physical conditions, support, or other hand itations?: No Did patient refuse services that were recommended on the previous admission: No Was patient non-compliant with the previously recommended treatment: No If admitted from the ED did you call your primary MD or place a sick call/reques t with your provider?: Yes Social Functional Assessment: Primary language spoken/preferred: Azeri Mental Status: Lethargic/Stuporous (difficult to arouse) Information given by: Other Name and phone number of person giving information: Skylar Krause, significant other [phone] Patient's support system: Other Name and number of support system: Skylar Krause, significant other [phone] Primary Director Of Manufacturing Operations: Self Living Arrangement: Home Address of living arrangement : [address] [place] [id number] Persons living in home: Self;Same as support system Barriers to returning home: None Baseline functional status- ambulation: Independent Functional status-baseline personal care: Independent Baseline functional status- driving: Dependent Baseline functional status- grocery shopping: Independent Functional status-baseline housekeeping: Independent Functional status-baseline meal prep: Independent Current functional status same as prior: Yes Do you have a PCP?: Yes Name of PCP: PETER CLARK [facility] Agency: No Provider Services: No DME Company: No Hemodialysis: No Funding Resources: Medicare Replacement Prescription coverage plan: Medicare Part D Anticipated services prior to disharge: Psych Eval Expected mode of discharge transportation: Same as support system Recommended discharge plan: Home SFA Complete: Social Functional Assessment complete: Yes Alcohol Use Screening (AUDIT-C) How often do you have a drink containing alcohol?: Never SCORE: 0 Role of Care Management explained. Miguel Dupree LCSW [employer] [phone] documented in this encounter Plan of Treatment Care Team Description Date Type Specialty Kena Rubin MD [address] [place] [address] 05/20/2019 Office Visit Neurology Date/Time Name Type Priority Associated Diagnoses 03/17/2019 11:42 PM CDT URINE DRUG (LCMSMS) - LAB Routine BENZODIAZEPINES PANEL 03/17/2019 11:42 PM CDT URINE DRUG (LCMSMS) - LAB Routine SYNTHETIC OPIATES PANEL 03/17/2019 11:42 PM CDT URINE DRUG (LCMSMS) - LAB Routine OPIATES PANEL Order Schedule Name Type Priority Associated Diagnoses ONCE for 1 Occurrences starting 03/18/2019 until 03/18/2019, 1 completed URINE DRUG (LCMSMS) - LAB Routine BENZODIAZEPINES PANEL ONCE for 1 Occurrences starting 03/18/2019 until 03/18/2019, 1 completed URINE DRUG (LCMSMS) - LAB Routine SYNTHETIC OPIATES PANEL ONCE for 1 Occurrences starting 03/18/2019 until 03/18/2019, 1 completed URINE DRUG (LCMSMS) - LAB Routine OPIATES PANEL Health Maintenance Due Date Last Done Comments EYE EXAM 1981 URINE MICROALBUMIN 1981 FOOT EXAM 1989 DTaP,Tdap,and Td Vaccines 1990 (1 - Tdap) PNEUMOCOCCAL 0-64 YEARS 09/04/2018 07/10/2018 COMBINED SERIES (1 of 1 - PPSV23) INFLUENZA VACCINE 04/10/2019 07/10/2018 HgA1C 07/10/2019 01/08/2019, 04/25/2018, 01/27/2016 LDL-C 02/20/2020 02/19/2019, 04/20/2017, 01/27/2016 CREATININE (SERUM) 03/17/2020 03/17/2019, 03/09/2019, 03/04/2019, Additional history exists documented as of this encounter Implants Device Identifier Shelf Expiration Date Model / Serial / 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 DVRAS-LEFT / DVRAS-LEFT / DVRAS-LEFT Dvr Left Plate PLATE Left: Arm Hand Implanted: Qty: 1 on 02/04/2016 by Humble Lester MD at [facility] FP24 24 Fully Threaded Pegs Peg screw Left: Arm Hand Implanted: Qty: 2 on 02/04/2016 by Humble Lester MD at [facility] FP20 / Fullu Threaded Pegs Peg screw Left: Arm Hand Implanted: Qty: 1 on 02/04/2016 by Humble Lester MD at [facility] FP22 / Fully Threaded Peg Peg screw Left: Arm Hand Implanted: Qty: 1 on 02/04/2016 by Humble Lester MD at [facility] FP24 24 Standard Peg Nonlocking Peg screw Left: Arm Hand Implanted: Qty: 1 on 02/04/2016 by Humble Lester MD at [facility] Standard Peg Nonlocking Peg screw Left: Arm Hand Implanted: Qty: 1 on 02/04/2016 by Humble Lester MD at [facility] [id number] / 14 Cortical Screw SCREW Left: Arm Hand Implanted: Qty: 3 on 02/04/2016 by Humble Lester MD at [facility] documented as of this encounter Procedures Comments Procedure Name Priority Date/Time Associated Diagnosis POCT GLUCOSE (AUTOMATED) Routine 03/18/2019 12:07 PM CDT POCT GLUCOSE (AUTOMATED) Routine 03/18/2019 8:22 AM CDT GALV/CLC ONLY - URINE Routine 03/17/2019 DRUG (IMMUNOASSAY) - 11:42 PM CDT COMPREHENSIVE DRUG SCREEN POCT GLUCOSE (AUTOMATED) Routine 03/17/2019 9:23 PM CDT POCT GLUCOSE (AUTOMATED) Routine 03/17/2019 3:41 PM CDT POCT GLUCOSE (AUTOMATED) Routine 03/17/2019 12:18 PM CDT AC PANEL 20 + LACTIC ACID Routine 03/17/2019 10:56 AM CDT POCT GLUCOSE (AUTOMATED) Routine 03/17/2019 8:[address] THORACIC SPINE WO STAT 03/17/2019 Back pain due to injury CONTRAST 1:[address] HEAD WO CONTRAST STAT 03/17/2019 Head injury with loss of 1:[address] CERVICAL SPINE WO STAT 03/17/2019 Head injury with loss of CONTRAST 1:45 AM CDT consciousness CBC WITH DIFFERENTIAL STAT 03/17/2019 Head injury with loss of 1:15 AM CDT consciousness EXTRA TUBE LT. BLUE STAT 03/17/2019 1:15 AM CDT CBC WITH DIFF Routine 03/17/2019 Head injury with loss of 1:15 AM CDT consciousness ETHANOL Add-on 03/17/2019 1:15 AM CDT BASIC METABOLIC PANEL STAT 03/17/2019 Head injury with loss of (NA, K, CL, CO2, GLUCOSE, 1:15 AM CDT consciousness BUN, CREATININE, CA) HEPATIC FUNCTION PANEL STAT 03/17/2019 Head injury with loss of ([id number]) (ALB,T.PRO,BILI 1:15 AM CDT consciousness T,BU/BC,ALT,AST,ALK PHOS) TROPONIN I STAT 03/17/2019 Head injury with loss of 1:15 AM CDT consciousness EKG-12 LEAD Routine 03/17/2019 1:04 AM CDT EKG-12 LEAD Routine 03/17/2019 1:04 AM CDT EKG-12 LEAD Routine 03/17/2019 1:01 AM CDT EKG-12 LEAD Routine 03/17/2019 12:59 AM CDT documented in this encounter Results * POCT GLUCOSE (AUTOMATED) (03/18/2019 12:07 PM CDT) POCT GLU 109 70 - 110 mg/dL [facility] Specimen Blood Performing Organization Address [facility]/Zipcode Phone Number [facility] CLIA: [id number], [address] [place], [place] [address] [facility] * POCT GLUCOSE (AUTOMATED) (03/18/2019 8:22 AM CDT) POCT GLU 114 (H) 70 - 110 mg/dL [facility] Specimen Blood Performing Organization Address City/[facility]/Zipcode Phone Number [facility] CLIA: [id number], [address] [place], [place] [address] [facility] * GALV/CLC ONLY - URINE DRUG (IMMUNOASSAY) - COMPREHENSIVE DRUG SCREEN (03/17/2019 11:42 PM CDT) AMPHET Negative Negative [facility] TOMA U Negative Negative [facility] BENZO U Presumptive Positive (A) Negative [facility] Cocaine Negative Negative [facility] Metabolite SERVICES METHADONE Negative Negative [facility] OPIATES Presumptive Positive (A) Negative [facility] PCP Negative Negative [facility] THC Negative Negative [facility] Specimen Urine - URINE, CLEAN CATCH Narrative Performed At Urine Drug Cutoff Ranges [facility] Cocaine: 150 ng/mL SERVICES Benzodiazepines: 200 ng/mL Methadone: 300 ng/mL Amphetamine: 1,000 ng/mL Opiates: 300 ng/mL Cannabinoids:50 ng/mL Phencyclidine: 25 ng/mL Barbiturates:200 ng/mL The results are to be used only for medical (i.e., treatment) purposes. Unconfirmed screening results must not be used for non-medical purposes (e.g., employment testing, legal testing). Performing Organization Address City/[facility] Phone Number [facility] CLIA: [id number], [address] [place] [address] [facility] * POCT GLUCOSE (AUTOMATED) (03/17/2019 9:23 PM CDT) POCT GLU 127 (H) 70 - 110 mg/dL [facility] Specimen Blood Performing Organization Address City/[facility] Phone Number [facility] CLIA: [id number], [address] [place] [address] [facility] * POCT GLUCOSE (AUTOMATED) (03/17/2019 3:41 PM CDT) POCT GLU 150 (H) 70 - 110 mg/dL [facility] Specimen Blood Performing Organization Address [facility] Phone Number [facility] CLIA: [id number], [address] [place] [address] [facility] * POCT GLUCOSE (AUTOMATED) (03/17/2019 12:18 PM CDT) POCT GLU 104 70 - 110 mg/dL [facility] Specimen Blood Performing Organization Address City/[facility]/Zipcode Phone Number [facility] CLIA: [id number], [address] [place] [id number] [facility] * AC PANEL 20 + LACTIC ACID (03/17/2019 10:56 AM CDT) PH 7.34 (L) 7.35 - 7.45 [facility] PCO2 36 35 - 45 mmHg [facility] PO2 84 80 - 100 mmHg [facility] HCO3 19 (L) 22 - 26 mEq/L [facility] BE -5.9 (L) -3.0 - 3.0 mEq/L [facility] THB 13.4 (L) 13.5 - 18.0 g/dL [facility] %O2HB 94.5 94.0 - 99.0 % [facility] %COHB ART 0.3 0.0 - 1.5 % [facility] %METHB ART 0.4 0.4 - 1.5 % [facility] VOL%O2 ART 17.9 15.0 - 23.0 % [facility] NA 139 135 - 145 mmol/L [facility] K+ 3.7 3.5 - 5.0 mmol/L [facility] AC CA IONZ 4.90 4.50 - 5.30 mg/dL [facility] GLUCOSE 103 70 - 110 mg/dL [facility] LACTIC ACID 0.92 0.50 - 2.20 mmol/L [facility] Specimen Blood - ARTERIAL Performing Organization Address City/State/Zipcode Phone Number [facility] CLIA: [id number], [address] [place] [phone] [facility] * POCT GLUCOSE (AUTOMATED) (03/17/2019 8:56 AM CDT) POCT GLU 116 (H) 70 - 110 mg/dL [facility] Specimen Blood Performing Organization Address City/[facility]/Zipcode Phone Number [facility] CLIA: [id number], [address] [place] [address] [facility] * CT THORACIC SPINE WO CONTRAST (03/17/2019 1:45 AM CDT) Specimen Impressions Performed At No acute osseous abnormality of the thoracic spine. PACS/VR/DOSE RL: [id number] AFC: [id number] Narrative Performed At Ordering physician: PENG CASEY PACS/VR/DOSE INDICATION: Acute trauma, back pain, radiculopathy COMPARISON: None TECHNIQUE: Axial images of the thoracic spine were performed without the administration of intravenous contrast material. Images were reformatted in the coronal and sagittal plane. CT scan was performed according to ALARA (as low as reasonably achievable) policy. FINDINGS: The thoracic spine is in normal anatomic alignment. There is preservation of normal vertebral body height, without evidence for acute fracture. There is no pneumothorax in the visualized lungs. Procedure Note [facility], Radiant Results Inft User - 03/17/2019 2:10 AM CDT Ordering physician: PENG CASEY INDICATION: Acute trauma, back pain, radiculopathy COMPARISON: None TECHNIQUE: Axial images of the thoracic spine were performed without the administration of intravenous contrast material. Images were reformatted in the coronal and sagittal plane. CT scan was performed according to ALARA (as low as reasonably achievable) policy. FINDINGS: The thoracic spine is in normal anatomic alignment. There is preservation of normal vertebral body height, without evidence for acute fracture. There is no pneumothorax in the visualized lungs. IMPRESSION No acute osseous abnormality of the thoracic spine. RL: [id number] AFC: [id number] Performing Organization Address City/State/Zipcode Phone Number PACS/VR/DOSE * CT CERVICAL SPINE WO CONTRAST (03/17/2019 1:45 AM CDT) Specimen Impressions Performed At Impression: PACS/VR/DOSE No CT evidence for acute intracranial abnormality. No acute fracture or dislocation of the cervical spine. RL: 460 AFC: [id number] Narrative Performed At Indication: Acute head and neck trauma PACS/VR/DOSE Comparison: None Technique: Axial images of the head and cervical spine were performed without administration of intravenous contrast material. Images of the cervical spine were reformatted in the coronal and sagittal plane. CT scan was performed according to ALARA (as low as reasonably achievable) policy. Findings: No acute intracranial abnormality is appreciated. Specifically, there is no acute intracranial hemorrhage, mass, mass effect, extra-axial fluid collection or hydrocephalus. The visualized paranasal sinuses are clear. No middle ear or mastoid effusion is appreciated. There is no calvarial fracture. The cervical spine is in normal anatomic alignment. No acute fracture or dislocation is appreciated. There is no apical pneumothorax. Procedure Note [facility], Radiant Results Inft User - 03/17/2019 2:08 AM CDT Indication: Acute head and neck trauma Comparison: None Technique: Axial images of the head and cervical spine were performed without administration of intravenous contrast material. Images of the cervical spine were reformatted in the coronal and sagittal plane. CT scan was performed according to ALARA (as low as reasonably achievable) policy. Findings: No acute intracranial abnormality is appreciated. Specifically, there is no acute intracranial hemorrhage, mass, mass effect, extra-axial fluid collection or hydrocephalus. The visualized paranasal sinuses are clear. No middle ear or mastoid effusion is appreciated. There is no calvarial fracture. The cervical spine is in normal anatomic alignment. No acute fracture or dislocation is appreciated. There is no apical pneumothorax. IMPRESSION Impression: No CT evidence for acute intracranial abnormality. No acute fracture or dislocation of the cervical spine. RL: 460 AFC: [id number] Performing Organization Address City/State/Zipcode Phone Number PACS/VR/DOSE * CT HEAD WO CONTRAST (03/17/2019 1:45 AM CDT) Specimen Impressions Performed At Impression: PACS/VR/DOSE No CT evidence for acute intracranial abnormality. No acute fracture or dislocation of the cervical spine. RL: 460 AFC: [id number] Narrative Performed At Indication: Acute head and neck trauma PACS/VR/DOSE Comparison: None Technique: Axial images of the head and cervical spine were performed without administration of intravenous contrast material. Images of the cervical spine were reformatted in the coronal and sagittal plane. CT scan was performed according to ALARA (as low as reasonably achievable) policy. Findings: No acute intracranial abnormality is appreciated. Specifically, there is no acute intracranial hemorrhage, mass, mass effect, extra-axial fluid collection or hydrocephalus. The visualized paranasal sinuses are clear. No middle ear or mastoid effusion is appreciated. There is no calvarial fracture. The cervical spine is in normal anatomic alignment. No acute fracture or dislocation is appreciated. There is no apical pneumothorax. Procedure Note [facility], Radiant Results Inft User - 03/17/2019 2:08 AM CDT Indication: Acute head and neck trauma Comparison: None Technique: Axial images of the head and cervical spine were performed without administration of intravenous contrast material. Images of the cervical spine were reformatted in the coronal and sagittal plane. CT scan was performed according to ALARA (as low as reasonably achievable) policy. Findings: No acute intracranial abnormality is appreciated. Specifically, there is no acute intracranial hemorrhage, mass, mass effect, extra-axial fluid collection or hydrocephalus. The visualized paranasal sinuses are clear. No middle ear or mastoid effusion is appreciated. There is no calvarial fracture. The cervical spine is in normal anatomic alignment. No acute fracture or dislocation is appreciated. There is no apical pneumothorax. IMPRESSION Impression: No CT evidence for acute intracranial abnormality. No acute fracture or dislocation of the cervical spine. RL: 460 AF: [id number] Performing Organization Address City/[facility]/Zipcode Phone Number PACS/VR/DOSE * ETHANOL (03/17/2019 1:15 AM CDT) ALCOHOL <10 mg/dL [facility] Specimen Blood - HAND, LEFT Narrative Performed At Toxic Greater than or equal to 80 mg/dL. [facility] NOTE: Whole blood values are approximately 10% to 15% lower than serum and [facility] plasma. CAMPUS Performing Organization Address [facility] Phone Number [facility] CLIA: [id number], [address] [place], [place] [address] [facility] * EXTRA TUBE LT. BLUE (03/17/2019 1:15 AM CDT) Specimen Blood Performing Organization Address [facility] Phone Number [facility] CLIA: [id number], [address] [place] [address] [facility] * CBC WITH DIFFERENTIAL (03/17/2019 1:15 AM CDT) WBC 7.94 4.20 - 10.70 [facility] 10*3/L [facility] RBC 3.99 (L) 4.26 - 5.52 10*6/L [facility] HGB 12.2 12.2 - 16.4 g/dL [facility] HCT 37.2 (L) 38.4 - 49.3 % [facility] MCV 93.2 81.7 - 95.6 fL [facility] MCH 30.6 26.1 - 32.7 pg [facility] MCHC 32.8 31.2 - 35.0 g/dL [facility] RDW-SD 46.5 38.5 - 51.6 fL [facility] RDW-CV 13.9 12.1 - 15.4 % [facility] PLT 146 (L) 150 - 328 10*3/L [facility] MPV 8.6 (L) 9.8 - 13.0 fL [facility] NRBC/100 WBC 0.0 0.0 - 10.0 /100 WBCs [facility] NRBC x10^3 <0.01 10*3/L [facility] GRAN MAT (NEUT) 80.8 % [facility] % [facility] IMM GRAN % 0.10 % [facility] LYMPH % 13.7 % [facility] MONO % 4.7 % [facility] EOS % 0.4 % [facility] BASO % 0.3 % [facility] GRAN MAT 6.42 1.99 - 6.95 10*3/uL [facility] x10^3(ANC) [facility] IMM GRAN x10^3 <0.03 0.00 - 0.06 10*3/uL [facility] LYMPH x10^3 1.09 1.09 - 3.23 10*3/uL [facility] MONO x10^3 0.37 0.36 - 1.02 10*3/uL [facility] EOS x10^3 0.03 (L) 0.06 - 0.53 10*3/uL [facility] BASO x10^3 <0.03 0.01 - 0.09 10*3/uL [facility] Specimen Blood - HAND, LEFT Performing Organization Address City/State/Zipcode Phone Number [facility] CLIA: [id number], [address] [place] [address] [facility] * Troponin I (03/17/2019 1:15 AM CDT) Pathologist [facility] TROPONIN I 0.001 <=0.034 ng/mL [facility] Specimen Blood - HAND, LEFT Narrative Performed At Equal or Less than 0.034 ng/ml---Normal [facility] Note: Cardiac troponin begins to rise 3-4 hours after the onset of ischemia. [facility] Repeat in 4-6 hours if the sample was drawn within 3-4 hours of the onset of the [place] symptom and found normal. Between 0.035 and [...] biotin. Performing Organization Address City/State/Zipcode Phone Number [facility] CLIA: [id number], [address] [place] [address] [facility] * Hepatic Function Panel (ALB, T.PRO, BILI T, BU/BC, ALT, AST, ALK PHOS) (03/17/2019 1:15 AM CDT) Pathologist [facility] TOTAL BILI 0.7 0.1 - 1.1 mg/dL [facility] BILI UNCON 0.5 0.1 - 1.1 mg/dL [facility] BILI CONJ 0.0 0.0 - 0.3 mg/dL [facility] T PROTEIN 6.6 6.3 - 8.2 g/dL [facility] ALBUMIN 3.8 3.5 - 5.0 g/dL [facility] ALK PHOS 38 34 - 122 U/L [facility] ALT(SGPT) 18 9 - 51 U/L [facility] AST(SGOT) 36 13 - 40 U/L [facility] Specimen Blood - HAND, LEFT Narrative Performed At Specimen hemolyzed [facility] Performing Organization Address City/State/Zipcode Phone Number [facility] CLIA: [id number], [address] [place] [address] [facility] * Basic Metabolic Panel (NA, K, CL, CO2, GLUCOSE, BUN, CREATININE, CA) (03/17/2019 1:15 AM CDT) NA 141 135 - 145 mmol/L [facility] K 4.3 3.5 - 5.0 mmol/L [facility] CL 109 (H) 98 - 108 mmol/L [facility] CO2 TOTAL 23 23 - 31 mmol/L [facility] AGAP 9 2 - 16 [facility] BUN 14 7 - 23 mg/dL [facility] GLUCOSE 121 (H) 70 - 110 mg/dL [facility] CREATININE 1.22 0.60 - 1.25 mg/dL [facility] CALCIUM 9.4 8.6 - 10.6 mg/dL [facility] eGFR 63.7 mL/min/1.73m2 [facility] Calculation [facility] ([facility]) eGFR 77.2 mL/min/1.73m2 [facility] Calculation [facility] ([facility]) Specimen Blood - HAND, LEFT Narrative Performed At Specimen hemolyzed [facility] Association of Glomerular Filtration Rate (GFR) and Staging of Kidney Disease* [facility] + + + + [place] | GFR (mL/min/1.73 m2)| With Kidney Damage|Without Kidney Damage + + + + |>90|Stage one| Normal [...] tests). Performing Organization Address City/State/Zipcode Phone Number [facility] CLIA: [id number], [address] [place] [address] [facility] documented in this encounter Visit Diagnoses Diagnosis Syncope, unspecified syncope type - Primary Head injury with loss of consciousness Back pain due to injury documented in this encounter Administered Medications Action Date Dose Rate Site Medication Order MAR Action 03/17/2019 9:43 PM CDT 650 mg acetaminophen (TYLENOL) tablet 650 mg Given 650 mg, Oral, [id number], Starting Nina 03/17/19 at 0459, Until Discontinued, Routine, Pain (scale 1-3) 03/18/2019 9:02 AM CDT 5 mg apixaban (ELIQUIS) tablet 5 mg Given 5 mg, Oral, BID, First dose on Nina 03/17/19 at 0800, Until Discontinued, Routine 5 mg Given 03/17/2019 9:29 PM CDT 5 mg Given 03/17/2019 9:33 AM CDT 03/18/2019 9:03 AM CDT 10 mg ARIPiprazole (ABILIFY) tablet 10 mg Given 10 mg, Oral, BID, First dose on Nina 03/17/19 at 0800, Until Discontinued 10 mg Given 03/17/2019 9:24 PM CDT 10 mg Given 03/17/2019 9:33 AM CDT 03/17/2019 9:27 PM CDT 80 mg atorvastatin (LIPITOR) tablet 80 mg Given 80 mg, Oral, QHS, First dose on Nina 03/17/19 at 2100, Until Discontinued, Routine, managing member approving Restricted medication: PRINCESS [facility]FORD 03/17/2019 9:25 PM CDT 25 mg doxepin (SINEQUAN) capsule 25 mg Given 25 mg, Oral, QHS, First dose on Nina 03/17/19 at 2100, Until Discontinued, Routine 03/18/2019 1:03 PM CDT 300 mg gabapentin (NEURONTIN) capsule 300 mg Given 300 mg, Oral, TID, First dose on Nina 03/17/19 at 0800, Until Discontinued, Routine 300 mg Given 03/18/2019 9:03 AM CDT 300 mg Given 03/17/2019 9:26 PM CDT glucagon (GLUCAGEN DIAGNOSTIC KIT) injection 1 mg 1 mg, Intramuscular, PRN, Starting Nina 03/17/19 at 0540, Until Discontinued, SACHIN, Blood Glucose < or=70 mg/dL and patient is unable to swallow or has mental changes. 03/18/2019 9:03 AM CDT 18 Units Abdomen-SC insulin glargine (LANTUS U-100) Given injection 36 Units 36 Units, Subcutaneous, BID, First dose on Nina 03/17/19 at 0800, Until Discontinued, Routine 18 Units Abdomen-SC Given 03/17/2019 9:20 AM CDT 03/17/2019 3:49 PM CDT 1 Units Abdomen-SC Sliding Scale Insulin - Aspart (NOVOLOG) Given + Fsbg Testing Subcutaneous, TID MEALS+HS, First dose on Nina 03/17/19 at 0800, Until Discontinued, Routine 03/18/2019 1:03 PM CDT 0.4 mg tamsulosin (FLOMAX) capsule 0.4 mg Given 0.4 mg, Oral, QAM + NOON, First dose on Nina 03/17/19 at 0900, Until Discontinued, Routine 0.4 mg Given 03/18/2019 9:03 AM CDT 0.4 mg Given 03/17/2019 1:04 PM CDT 03/18/2019 9:03 AM CDT 100 mg topiramate (TOPAMAX) tablet 100 mg Given 100 mg, Oral, BID, First dose on Nina 03/17/19 at 0800, Until Discontinued, Routine, managing member approving Restricted medication: PRINCESS [facility]FORD 100 mg Given 03/17/2019 9:26 PM CDT 100 mg Given 03/17/2019 9:33 AM CDT Action Date Dose Rate Site Medication Order MAR Action 03/17/2019 3:57 AM CDT 650 mg acetaminophen (TYLENOL) tablet 650 mg Given 650 mg, Oral, ONCE, 1 dose, [facility] 03/17/19 at 0500, SACHIN 03/17/2019 7:45 AM CDT 2 mg ALPRAZolam (XANAX) tablet 2 mg Given 2 mg, Oral, BID, First dose on Nina 03/17/19 at 0800, Until Discontinued 03/17/2019 11:39 PM CDT 3 mg melatonin (MELATIN) tablet 3 mg Given 3 mg, Oral, ONCE, 1 dose, Nina 03/17/19 at 2245, Routine documented in this encounter Insurance Type Payer Benefit Subscriber ID Effective Phone Address Plan / Dates Group Medicare Adv PPO [place] [facility] BCBS OF [id number] 2019-P [address] MEDICARE [place] resent [id number] [place] [id number] documented as of this encounter"
--- OUTSIDE RECORDS SUMMARY | 2019-03-30 16:10 | XMS REPORT | Summary of Care ---
Author Author [facility] - [facility] Organization [facility] - Health Address Unknown Phone Unavailable Care Team Providers Care Community Health Promoter Name Role Phone EduardoArturo PCP Reason for Referral * Radiology Services (STAT) Referred By Contact Referred To Contact Status Reason Specialty Diagnoses / Procedures Cleveland Zabala Jr., PA-C [address] [place] [address] New Request Diagnostic Diagnoses Radiology Contusion of right shoulder, initial encounter P rocedures XR SHOULDER 2+ VW RIGHT * Radiology Services (STAT) Referred By Contact Referred To Contact Status Reason Specialty Diagnoses / Procedures Cleveland Zabala Jr., PA-C [address] [place] [address] New Request Diagnostic Diagnoses Radiology Contusion of right shoulder, initial encounter P rocedures XR SHOULDER 2+ VW RIGHT * MRI/CAT Scan (STAT) Referred By Contact Referred To Contact Status Reason Specialty Diagnoses / Procedures Cleveland Zabala Jr., PA-C [address] [place] [address] New Request Diagnostic Diagnoses Radiology Traumatic injury of head, initial encounter Syncope, unspecified syncope type P rocedures CT Head W/O Contrast * MRI/CAT Scan (STAT) Referred By Contact Referred To Contact Status Reason Specialty Diagnoses / Procedures Cleveland Zabala Jr., PA-C [address] [place] [address] New Request Diagnostic Diagnoses Radiology Traumatic injury of head, initial encounter Syncope, unspecified syncope type P rocedures CT Head W/O Contrast Reason for Visit * Reason Comments Syncope * Auth/Cert Referred By Contact Referred To Contact Status Reason Specialty Diagnoses / Procedures [facility] Emergency Dept [address] [place] [address] Emergency Medicine Encounter Details Care Team Description Date Type Department Cleveland Zabala Jr., PA-C [address] [place] [address] [phone] Traumatic injury of head, initial encounter (Primary Dx); Syncope, unspecified syncope type; Contusion of right shoulder, initial encounter 03/12/2019 Emergency [facility] [address] [place] [address] Allergies Comments Active Allergy Reactions Severity Noted Date Cefazolin Sodium Itching 09/24/2018 Ciprofloxacin Hives 02/28/2019 Patient states he denies codeine allergy Codeine Hives Low 04/29/2018 Cyclobenzaprine Hives 01/08/2019 Methylprednisolone Hives 01/27/2016 Penicillin Itching 11/30/2016 Mirtazapine Itching 04/22/2017 Ketorolac Tromethamine Itching 01/26/2016 Tramadol Hives Medium 12/12/2018 documented as of this encounter (statuses as of 03/12/2019) Medications No known medicationsdocumented as of this encounter (statuses as of 03/12/2019) Active Problems Problem Noted Date Lower extremity [...] 01/28/2016 Dyslipidemia 01/28/2016 Coronary artery disease involving [place] coronary artery without angina 01/28/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 Tobacco abuse 01/28/2016 Chest pain 01/27/2016 Wrist pain 01/27/2016 documented as of this encounter (statuses as of 03/12/2019) Immunizations Name Administration Dates Next Due Influenza [...] Signs Reading Time Taken Comments Vital Sign 133/81 03/12/2019 8:09 PM CDT Blood Pressure 67 03/12/2019 8:09 PM CDT Pulse 37 C (98.6 F) 03/12/2019 8:09 PM CDT Temperature 17 03/12/2019 8:09 PM CDT Respiratory Rate 99% 03/12/2019 8:09 PM CDT Oxygen Saturation - - Inhaled Oxygen Concentration 129.3 kg (285 lb) 03/12/2019 5:48 PM CDT Weight 182.9 cm (6') 03/12/2019 5:48 PM CDT Height 38.65 03/12/2019 5:48 PM CDT Body Mass Index documented in this encounter Discharge Instructions * Instructions* Cleveland Zabala Jr., VIKAS-Marybeth - 03/12/2019 Discharged to home. Follow up with your doctor on THURSDAY March 14, 2019 for recheck. Take your home medication as prescribed. Avoid excessive physical activity. Head injury precautions given. Return to the ER if you have any problems. * Attachments The following attachments cannot be sent through Care Everywhere.* Bone Bruise (Bone Contusion), Understanding (Congolese) * Head Injury (Adult) (Congolese) documented in this encounter Plan of Treatment Care Team Description Date Type Specialty Kena Rubin MD [address] [place] [address] 05/20/2019 Office Visit Neurology Health [...] on 02/04/2016 by Humble Lester MD at [facility] FP24 Fully Threaded Pegs Peg screw Left: Arm Hand Implanted: Qty: 2 on 02/04/2016 by Humble Lester MD at [facility] FP20 Fullu Threaded Pegs Peg screw Left: Arm Hand Implanted: Qty: 1 on 02/04/2016 by Humble Lester MD at [facility] FP22 / / 222 Fully Threaded Peg Peg screw Left: Arm Hand Implanted: Qty: 1 on 02/04/2016 by Humble Lester MD at [facility] FP24 / 24 Standard Peg Nonlocking Peg screw Left: Arm Hand Implanted: Qty: 1 on 02/04/2016 by Humble Lester MD at [facility] Standard Peg Nonlocking Peg screw Left: Arm Hand Implanted: Qty: 1 on 02/04/2016 by Humble Lester MD at [facility] [id number] / 14 / 14 Cortical Screw SCREW Left: Arm Hand Implanted: Qty: 3 on 02/04/2016 by Humble Lester MD at [facility] documented as of this encounter Procedures Comments Procedure Name Priority Date/Time Associated Diagnosis XR SHOULDER 2+ VW RIGHT STAT 03/12/2019 Contusion of right 7:13 PM CDT shoulder, initial encounter CT HEAD WO CONTRAST STAT 03/12/2019 Traumatic injury of head, 7:13 PM CDT initial encounter Syncope, unspecified syncope type EKG-12 LEAD SACHIN 03/12/2019 5:55 PM CDT documented in this encounter Results * XR SHOULDER 2+ VW RIGHT (03/12/2019 7:13 PM CDT) Specimen Impressions Performed At No acute osseous abnormality of the right shoulder. PACS/VR/DOSE RL: 460 AFC: [id number] Narrative Performed At Ordering physician: CLEVELAND ZABALA JR PACS/VR/DOSE INDICATION: Right shoulder pain COMPARISON: None FINDINGS: 3 views of the right shoulder. No acute fracture or dislocation is appreciated. The visualized right lung is clear. Procedure Note [facility], Radiant Results Inft User - 03/12/2019 7:29 PM CDT Ordering physician: CLEVELAND ZABALA JR INDICATION: Right shoulder pain COMPARISON: None FINDINGS: 3 views of the right shoulder. No acute fracture or dislocation is appreciated. The visualized right lung is clear. IMPRESSION No acute osseous abnormality of the right shoulder. RL: 460 AFC: [id number] Performing Organization Address [facility] [place] Number [place]ACS/VR/DOSE * CT Head W/O Contrast (03/12/2019 7:13 PM CDT) Specimen Impressions Performed At Impression: PACS/VR/DOSE No CT evidence for acute intracranial abnormality. RL: 460 AF: [id number] Narrative Performed At Indication: Head trauma, syncope PACS/VR/DOSE Comparison: None Technique: Axial images of the head were performed without administration of intravenous contrast material. CT scan was performed according to ALARA (as low as reasonably achievable) principles. Findings: No acute intracranial abnormality is appreciated. Specifically, there is no acute intracranial hemorrhage, mass, mass effect, extra-axial fluid collection or hydrocephalus. The visualized paranasal sinuses are clear. No middle ear or mastoid effusion is appreciated. There is no calvarial fracture. There are scattered small foci of air in the facial veins, likely related to IV placement. Procedure Note [facility], Radiant Results Inft User - 03/12/2019 7:32 PM CDT Indication: Head trauma, syncope Comparison: None Technique: Axial images of the head were performed without administration of intravenous contrast material. CT scan was performed according to ALARA (as low as reasonably achievable) principles. Findings: No acute intracranial abnormality is appreciated. Specifically, there is no acute intracranial hemorrhage, mass, mass effect, extra-axial fluid collection or hydrocephalus. The visualized paranasal sinuses are clear. No middle ear or mastoid effusion is appreciated. There is no calvarial fracture. There are scattered small foci of air in the facial veins, likely related to IV placement. IMPRESSION Impression: No CT evidence for acute intracranial abnormality. RL: 460 AF: [id number] Performing Organization Address [facility] [place] Phone Number PACS/VR/DOSE documented in this encounter Visit Diagnoses Diagnosis Traumatic injury of head, initial encounter - Primary Syncope, unspecified syncope type Contusion of right shoulder, initial encounter documented in this encounter Administered Medications Action Date Dose Rate Site Medication Order MAR Action 03/12/2019 6:34 PM CDT 4 mg morpHINE injection 4 mg Given 4 mg, Slow IV Push, ONCE, 1 dose, 03/12/19 at 1830, STAT 03/12/2019 6:30 PM CDT 12.5 mg proMETHazine (PHENERGAN) 12.5 mg Given piggyback 12.5 mg, Intravenous, ONCE, 1 dose, 03/12/19 at 1830 documented in this encounter Insurance Type Payer Benefit Subscriber ID Effective Phone Address Plan / Dates Group Medicare Adv PPO [place] [facility] BCBS OF [id number] 2019-P [address] MEDICARE [place] [facility] [id number] [place], [place] [id number] documented as of this encounter
--- OUTSIDE RECORDS SUMMARY | 2019-03-30 16:10 | XMS REPORT ---
Author Author Admin, [place] Organization [facility] Address [address] [place] [address] Phone Allergies, Adverse Reactions, Alerts Allergy Name [...] Entry Date Provider Comment Standard Description Annotate NIKA, adult 327.23 Active Bandar Garcia MD R3 Obstructive sleep apnea (adult) (pediatric) MILD NIKA/Hypoapnea syndrome Wrist pain 719.43 Active Snehal Gutierrez MD [...] Coronary atherosclerosis of unspecified type of vessel, [place] or graft Diabetes mellitus type II 250.00 [...] Generic Name NDC Status Provider Patient Instruction TOPIRAMATE 100MG TABLETS TAKE 1 TABLET BY MOUTH TWICE DAILY TOPIRAMATE 21723949059 Active Lele Suárez MD Active ABILIFY 10 MG ORAL TABLET Take one tablet by mouth twice a day. ARIPIPRAZOLE 93685594640 Active Lele Suárez MD Active ALPRAZOLAM ER 2 MG ORAL TABLET EXTENDED RELEASE 24 HOUR Take 1 tablet by mouth twice a day as needed for anxiety. ALPRAZOLAM 51568631897 Active Lele Suárez MD Active PRAZOSIN HCL 1 MG ORAL CAPSULE Take 3 capsules by mouth at bedtime. PRAZOSIN HCL 01514107388 Active Lele Suárez MD Active LANTUS 100 UNIT/ML SUBCUTANEOUS SOLUTION 42 units sq daily INSULIN GLARGINE 17473616959 Active Snehal Gutierrez MD Active LISINOPRIL 5 MG ORAL TABLET 1 by mouth every day LISINOPRIL 23770061072 [facility] PR[facility] MUSIC THERAPY AGENCY Active SURE COMFORT PEN NEEDLES 31G X 5 MM use as directed INSULIN PEN NEEDLE 02979620701 Active Snehal Gutierrez MD Active VIIBRYD 40 MG ORAL TABLET Take 1 tablet by mouth daily. VILAZODONE HCL 60441253539 Active Lele Suárez MD Active BD PEN NEEDLE LUZ U/F 32G X 4 MM Please use new needle for pen INSULIN PEN NEEDLE 58066100314 Active Delicia Meraz MD (res) Active ASPIRIN 81 MG ORAL TABLET DELAYED RELEASE 1 by mouth every day ASPIRIN 73722533547 Active Juliann Worley MD (res) Active MECLIZINE HCL 25 MG ORAL TABLET 1 by mouth 3 times a day as needed for dizziness MECLIZINE HCL 88320490296 Active Juliann Worley MD (res) Active DOXEPIN HCL 25 MG ORAL CAPSULE Take 1-2 capsules at bedtime as needed for sleep. DOXEPIN HCL 01704974307 Active Lele Suárez MD Active PAXIL 30 MG ORAL TABLET Take 2 tablets by mouth daily. PAROXETINE HCL 63057181732 Active Lele Suárez MD Active ATORVASTATIN CALCIUM 80 MG ORAL TABLET Take one tablet By Mouth Every Day ATORVASTATIN CALCIUM 32565478007 Active Orestes Carrillo MD R3 Active LORATADINE 10 MG ORAL TABLET 1 By Mouth once a day as needed for allergies LORATADINE 95286475500 Active Paula Clay MD Active METFORMIN HCL 1000 MG ORAL TABLET 1 by mouth twice a day METFORMIN HCL 42099533991 Active Paula Clay MD Active METOPROLOL TARTRATE 25 MG ORAL TABLET 1 by mouth twice a day METOPROLOL TARTRATE 34645235063 Active Orestes Carrillo MD R3 Active PLAVIX 75 MG ORAL TABLET 1 by mouth every day CLOPIDOGREL BISULFATE 74429987159 Active Snehal Gutierrez MD Active ALPRAZOLAM ER 1 MG ORAL TABLET EXTENDED RELEASE 24 HOUR Take 1 tablet by mouth daily as needed for anxiety. ALPRAZOLAM ER 1 MG ORAL TABLET EXTENDED RELEASE 24 HOUR ALPRAZOLAM Inactive CLONAZEPAM 2 MG ORAL TABLET Take 1/2 - 1 tablet by mouth daily as needed for anxiety. CLONAZEPAM 2 MG ORAL TABLET 237974 CLONAZEPAM Inactive TOPAMAX 50 MG ORAL TABLET Take one tablet by mouth twice a day. TOPAMAX 50 MG ORAL TABLET 186783 TOPIRAMATE Inactive TOPAMAX 25 MG ORAL TABLET Take one tablet by mouth twice a day. TOPAMAX 25 MG ORAL TABLET 113512 TOPIRAMATE Inactive ATIVAN 1 MG ORAL TABLET [...] 5 days AZITHROMYCIN 250 MG ORAL TABLET 107233 AZITHROMYCIN Inactive CEFDINIR 300 MG ORAL CAPSULE 2 tablets by mouth every day for 10 days CEFDINIR 300 MG ORAL CAPSULE 464501 CEFDINIR Inactive TYLENOL WITH CODEINE #3 300-30 [...] a day. GABITRIL 4 MG ORAL TABLET 1311857 TIAGABINE HCL Inactive DIVALPROEX SODIUM ER 500 MG ORAL TABLET EXTENDED RELEASE 24 HOUR Takes 3 tablets in the morning and take at bedtime DIVALPROEX SODIUM ER 500 MG ORAL TABLET EXTENDED RELEASE 24 HOUR DIVALPROEX SODIUM Inactive GABAPENTIN 300 MG ORAL CAPSULE take three tablets Every Morning and three tablets take at bedtime GABAPENTIN 300 MG ORAL CAPSULE 443767 GABAPENTIN Inactive GLIPIZIDE 10 MG ORAL TABLET Takes one tablet Twice a Day GLIPIZIDE 10 MG ORAL TABLET 454540 GLIPIZIDE Inactive JANUVIA 100 MG ORAL TABLET 1 tab By Mouth daily JANUVIA 100 MG ORAL TABLET SITAGLIPTIN PHOSPHATE Inactive LISINOPRIL 10 MG ORAL TABLET 1 by mouth every day LISINOPRIL 10 MG ORAL TABLET 773328 LISINOPRIL Inactive NORTRIPTYLINE HCL 25 MG ORAL CAPSULE Take one tablet By Mouth take at bedtime NORTRIPTYLINE HCL 25 MG ORAL CAPSULE 219398 NORTRIPTYLINE HCL Inactive NORTRIPTYLINE HCL 25 MG ORAL CAPSULE Take 2 capsules by mouth at bedtime as needed for sleep. NORTRIPTYLINE HCL 25 MG ORAL CAPSULE 941837 NORTRIPTYLINE HCL Inactive PAROXETINE HCL 20 MG ORAL TABLET Take 3 tablets By Mouth Every Morning PAROXETINE HCL 20 MG ORAL TABLET 5404872 PAROXETINE HCL Inactive PRAZOSIN HCL 2 MG ORAL CAPSULE Take 2 tablets By Mouth take at bedtime PRAZOSIN HCL 2 MG ORAL CAPSULE 017658 PRAZOSIN HCL Inactive TRAZODONE HCL 300 MG ORAL TABLET 1 by mouth every night TRAZODONE HCL 300 MG ORAL TABLET 062688 TRAZODONE HCL Inactive DIAZEPAM 10 MG TABS TAKE 1/2 TO 1 TABLET BY MOUTH DAILY NEEDED FOR ANXIETY DIAZEPAM 10 MG TABS 456554 DIAZEPAM Inactive ALPRAZOLAM ER 1 MG ORAL TABLET EXTENDED RELEASE 24 HOUR Take 1 tablet by mouth daily as needed for anxiety. ALPRAZOLAM 52966004696 No Longer Active Lele Suárez MD Active CLONAZEPAM 2 MG ORAL TABLET Take 1/2 - 1 tablet by mouth daily as needed for anxiety. CLONAZEPAM 48026698015 No Longer Active Lele Suárez MD Active TOPAMAX 50 MG ORAL TABLET Take one tablet by mouth twice a day. TOPIRAMATE 52338779989 No Longer Active Lele Suárez MD Active TOPAMAX 25 MG ORAL TABLET Take one tablet by mouth twice a day. TOPIRAMATE 34294748186 No Longer Active Lele Suárez MD Active ATIVAN 1 MG ORAL TABLET Take 1-2 tablets by mouth daily as needed for anxiety. LORAZEPAM 33279455290 No Longer Active Lele Suárez MD Active ATIVAN 2 MG ORAL TABLET Take 1 tablet by mouth daily as needed for anxiety. LORAZEPAM 33308947873 No Longer Active Lele Suárez MD Active LANTUS SOLOSTAR 100 UNIT/ML SUBCUTANEOUS SOLUTION PEN-INJECTOR 42 unit sq daily INSULIN GLARGINE 57472633605 No Longer Active Snehal Gutierrez MD Active AZITHROMYCIN 250 MG ORAL TABLET 2 tablets by mouth on day one then one tablet by mouth each day for a total of 5 days AZITHROMYCIN 76680980760 No Longer Active Snehal Gutierrez MD Active CEFDINIR 300 MG ORAL CAPSULE 2 tablets by mouth every day for 10 days CEFDINIR 60589111615 No Longer Active Joe Mcmullen MD Active TYLENOL WITH CODEINE #3 300-30 MG ORAL TABLET 1 by mouth every 8 hours as needed ACETAMINOPHEN-CODEINE 99325955453 No Longer Active Snehal Gutierrez MD Active VIIBRYD 20 MG ORAL TABLET Take 1 tablet by mouth daily. VILAZODONE HCL 55335921624 No Longer Active Lele Suárez MD Active GABITRIL 4 MG ORAL TABLET Take one tablet by mouth twice a day. TIAGABINE HCL 99993278696 No Longer Active Lele Suárez MD Active DIVALPROEX SODIUM ER 500 MG ORAL TABLET EXTENDED RELEASE 24 HOUR Takes 3 tablets in the morning and take at bedtime DIVALPROEX SODIUM 27993032729 No Longer Active Lele Suárez MD Active GABAPENTIN 300 MG ORAL CAPSULE take three tablets Every Morning and three tablets take at bedtime GABAPENTIN 92793292673 No Longer Active Lele Suárez MD Active GLIPIZIDE 10 MG ORAL TABLET Takes one tablet Twice a Day GLIPIZIDE 65215885881 No Longer Active Paula Clay MD Active JANUVIA 100 MG ORAL TABLET 1 tab By Mouth daily SITAGLIPTIN PHOSPHATE 00000090073 No Longer Active Snehal Gutierrez MD Active LISINOPRIL 10 MG ORAL TABLET 1 by mouth every day LISINOPRIL 20300467906 No Longer Active Snehal Gutierrez MD Active NORTRIPTYLINE HCL 25 MG ORAL CAPSULE Take 2 capsules by mouth at bedtime as needed for sleep. NORTRIPTYLINE HCL 02316703748 No Longer Active Lele Suárez MD Active NORTRIPTYLINE HCL 25 MG ORAL CAPSULE Take one tablet By Mouth take at bedtime NORTRIPTYLINE HCL 89894350546 No Longer Active Paula Clay MD Active PAROXETINE HCL 20 MG ORAL TABLET Take 3 tablets By Mouth Every Morning PAROXETINE HCL 80275466701 No Longer Active Lele Suárez MD Active PRAZOSIN HCL 2 MG ORAL CAPSULE Take 2 tablets By Mouth take at bedtime PRAZOSIN HCL 44453087884 No Longer Active Juliann Worley MD (res) Active TRAZODONE HCL 300 MG ORAL TABLET 1 by mouth every night TRAZODONE HCL 78917529049 No Longer Active Lele Suárez MD Active DIAZEPAM 10 MG TABS TAKE 1/2 TO 1 TABLET BY MOUTH DAILY NEEDED FOR ANXIETY DIAZEPAM 05468934247 No Longer Active Lele Suárez MD Active Vital Signs Date Name Value Unit Range Description blood pressure, diastolic 82 mm[Hg] BP [place] blood pressure, systolic 126 mm[Hg] BP sys height E&M 72 [in_us] Bdy height pulse rate E&M 88 /min Heart rate weight E&M 292.13 [lb_av] Weight Measured blood pressure, diastolic 76 mm[Hg] BP [place] blood pressure, systolic 108 mm[Hg] BP sys height E&M 72 [in_us] Bdy height pulse rate E&M 89 /min Heart rate weight E&M 289.40 [lb_av] Weight Measured blood pressure, diastolic 85 mm[Hg] BP [place] blood pressure, systolic 125 mm[Hg] BP sys height E&M 72 [in_us] Bdy height pulse rate E&M 94 /min Heart rate weight E&M 291.50 [lb_av] Weight Measured blood pressure, diastolic 90 mm[Hg] BP [place] [...] temperature weight E&M 308.80 [lb_av] Weight Measured Diagnostic Results Date Name Value Unit Range Description Lab Report: TSH+Free T4, Comp. Metabolic Panel (14), Lipid Panel, Hemogl ... - Chemistry sodium, serum 134 mmol/L 134-144 Lab Report: [id number] 7+Alc-Unbund, Amphetamines Confirmation, Ur, [id number] 7 ... - Toxicology benzodiazepine screen, urine Positive [place]=460 Lab Report: TSH+Free T4, Comp. Metabolic Panel (14), Lipid Panel, Hemogl ... - Chemistry thyroid stimulating hormone, serum 0.989 u[iU]/mL 0.450-4.500 Lab Report: [id number] 7+Alc-Unbund, Amphetamines Confirmation, Ur, [id number] 7 ... - Toxicology amphetamine screen, urine Negative Pssqeb=0035 Lab Report: TSH+Free T4, Comp. Metabolic Panel (14), Lipid Panel, Hemogl ... - Chemistry very low density lipoproteins 60 mg/dL 5-40 Lab Report: [id number] 7+Alc-Unbund, Amphetamines Confirmation, Ur, [id number] 7 ... - Chemistry cannabinoid screen, urine Negative ng/mL Cutoff=50 Lab Report: TSH+Free T4, Comp. Metabolic Panel (14), Lipid Panel, Hemogl ... - Chemistry carbon dioxide, venous blood 22 mmol/L 20-29 Lab Report: [id number] 7+Alc-Unbund, Amphetamines Confirmation, Ur, [id number] 7 ... - Toxicology phencyclidine screen, urine Negative ng/mL Cutoff=25 Lab Report: TSH+Free T4, Comp. Metabolic Panel (14), Lipid Panel, Hemogl ... - Chemistry chloride, serum 97 mmol/L 96-106 triglyceride, serum, fasting 298 mg/dL 0-149 calcium, serum 10.3 mg/dL 8.7-10.2 urea nitrogen, blood 15 mg/dL 6-24 alanine aminotransferase (SGPT), serum 50 U/L 0-44 Office Visit: Acute Visit [facility] - Chemistry blood glucose, fasting 177 mg/dL [...] of total hemoglobin 9.3 % Lab Report: [id number] 7+Alc-Unbund, Amphetamines Confirmation, Ur, [id number] 7 ... - Toxicology barbiturates screen, urine Negative Cdkxip=697 cocaine, urine Negative Ovcnzu=526 Lab Report: TSH+Free T4, Comp. Metabolic Panel [...] 1.06 mg/dL 0.76-1.27 cholesterol, serum 202 mg/dL 072-045 2441/09/07 bilirubin, serum, total 0.3 mg/dL 0.0-1.2 Office Visit: Adult Followup 2 - Chemistry blood glucose, random 202 mg/dL Lab Report: TSH+Free T4, Comp. Metabolic Panel (14), Lipid Panel, Hemogl ... - Chemistry aspartate aminotransferase (SGOT), serum 32 U/L 0-40 potassium, serum 4.6 mmol/L 3.5-5.2 albumin, serum 4.7 g/dL 3.5-5.5 Lab Report: [id number] 7+Alc-Unbund, Amphetamines Confirmation, Ur, [id number] 7 ... - Toxicology opiates, urine, semiquantitative See Final Results Nlbsul=[id number] Encounters Date Encounter Provider Code Facility 08:23:24 CDT Est Patient Exp Problem - 54020 Lele Suárez MD CPT-66274 [facility] 10:12:41 CDT Est Patient Exp Problem - 37528 Lele Suárez MD CPT-87248 [facility] 14:35:28 CDT Est Patient Exp Problem - 34700 Lele Suárez MD CPT-33655 [facility] 07:09:15 CDT Est Patient Exp Problem - 22538 Snehal Gutierrez MD CPT-87193 [facility] 14:36:35 CDT Est Patient Exp Problem - 91421 Lele Suárez MD CPT-81884 [facility] 14:28:44 SAFETY ASSOCIATE Est Patient Exp Problem - 96682 Lele Suárez MD CPT-50237 [facility] 14:43:22 SAFETY ASSOCIATE Est Patient Exp Problem - 36754 Lele Suárez MD CPT-94279 [facility] 13:05:06 SAFETY ASSOCIATE Est Patient Exp Problem - 75907 Snehal Gutierrez MD CPT-63757 [facility] 11:06:52 SAFETY ASSOCIATE Est Patient Detailed - 94900 Snehal Gutierrez MD CPT-30409 [facility] 14:01:37 SAFETY ASSOCIATE Est Patient Exp Problem - 18964 Lele Suárez MD CPT-08818 [facility] 16:17:36 SAFETY ASSOCIATE Est Patient Exp Problem - 06039 Joe Mcmullen MD CPT-78441 [facility] 15:02:34 SAFETY ASSOCIATE Est Patient Exp Problem - 03239 Lele Suárez MD CPT-46925 [facility] 17:20:36 SAFETY ASSOCIATE Est Patient Exp Problem - 49882 Delicia Meraz MD (res) CPT-78929 [facility] 16:35:53 SAFETY ASSOCIATE Est Patient Exp Problem - 55354 Bandar Garcia MD R3 CPT-59444 [facility] 10:34:23 SAFETY ASSOCIATE Est Patient Exp Problem - 80438 Juliann Worley MD (res) CPT-92225 [facility] 15:34:44 SAFETY ASSOCIATE Est Patient Exp Problem - 74367 Lele Suárez MD CPT-03089 [facility] 15:35:27 SAFETY ASSOCIATE Est Patient Exp Problem - 81583 Juliann Worley MD (res) CPT-72750 [facility] 15:12:46 CDT Est Patient Exp Problem - 08802 Lele Suárez MD CPT-97136 [facility] 13:08:51 CDT Est Patient Detailed - 12273 Lele Suárez MD CPT-30592 [facility] 23:10:36 CDT Est Patient Detailed - 65113 Paula Clay MD CPT-75231 [facility] 14:28:27 CDT Est Patient Exp Problem - 74307 Oscar Nielson MD (res) CPT-67693 [facility] 15:02:09 CDT Est Patient Exp Problem - 86894 Paula Clay MD CPT-82136 [facility] 10:56:53 CDT New Patient Detailed - 44082 Pepito Boyd MD CPT-12829 [facility] Practice Procedures Code Procedure Name Date Entry Date Standard Description CPT-39741 Psychotherapy 30 (16-37*) min - 05265 (with patient and/or family member) 14:06:19 CDT CPT-56544 Psychotherapy 45 (38-52*) min - 56571 (with patient and/or family member) 14:06:54 CDT CPT-67260 Psychotherapy 30 (16-37*) min - 05043 (with patient and/or family member) 13:25:55 SAFETY ASSOCIATE CPT-26429 Psychotherapy 45 (38-52*) min - 10552 (with patient and/or family member) 14:03:04 SAFETY ASSOCIATE CPT-21180 Psychotherapy 45 (38-52*) min - 62578 (with patient and/or family member) 09:39:01 SAFETY ASSOCIATE CPT-56464 [facility] - 04470 14:47:42 SAFETY ASSOCIATE CPT-75147 HEMOGLOBIN A1C - In House 10:34:23 SAFETY ASSOCIATE CPT-65911 Diagnostic evaluation (no medical) - 07124 08:53:47 SAFETY ASSOCIATE CPT-27784 Glucose Stick 15:55:29 SAFETY ASSOCIATE CPT-73979 Diagnostic evaluation with medical - 36511 13:48:41 CDT
--- OUTSIDE RECORDS SUMMARY | 2019-03-30 16:10 | XMS REPORT | Summary of Care ---
Author Author [facility] - Health Organization [facility] - Health Address Unknown Phone Unavailable Care Team Providers Care Patient Care Provider Name Role Phone EduardoArturo PCP Reason for Referral * Radiology Services (STAT) Referred By Contact Referred To Contact Status Reason Specialty Diagnoses / Procedures Medardo Lopez MD [address] [address] New Request Diagnostic Diagnoses Radiology Injury of right shoulder, initial encounter P rocedures XR SHOULDER 2+ VW RIGHT * Radiology Services (STAT) Referred By Contact Referred To Contact Status Reason Specialty Diagnoses / Procedures Medardo Lopez MD [address] [address] New Request Diagnostic Diagnoses Radiology Injury of right shoulder, initial encounter P rocedures XR SHOULDER 2+ VW RIGHT Reason for Visit * Reason Comments Fall Arm Pain Dizziness * Auth/Cert Referred By Contact Referred To Contact Status Reason Specialty Diagnoses / Procedures [facility] Emergency Dept [address] [place] [phone] Emergency Medicine Encounter Details Care Team Description Date Type Department Medardo Lopez MD [address] [address] Jose Turner DO [address] [id number] Injury of right shoulder, initial encounter (Primary Dx); Syncope, unspecified syncope type; Contusion of right shoulder, initial encounter 03/15/2019 Emergency [facility] [address] [place] [address] Allergies Comments Active Allergy Reactions Severity Noted Date Cefazolin Sodium Itching 09/24/2018 Ciprofloxacin Hives 02/28/2019 Patient states he denies codeine allergy Codeine Hives Low 04/29/2018 Cyclobenzaprine Hives 01/08/2019 Methylprednisolone Hives 01/27/2016 Penicillin Itching 11/30/2016 Mirtazapine Itching 04/22/2017 Ketorolac Tromethamine Itching 01/26/2016 Tramadol Hives Medium 12/12/2018 documented as of this encounter (statuses as of 03/15/2019) Medications No known medicationsdocumented as of this encounter (statuses as of 03/15/2019) Active Problems Problem Noted Date Lower extremity [...] 01/28/2016 Dyslipidemia 01/28/2016 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 01/28/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 Tobacco abuse 01/28/2016 Chest pain 01/27/2016 Wrist pain 01/27/2016 documented as of this encounter (statuses as of 03/15/2019) Immunizations Name Administration Dates Next Due Influenza [...] Signs Reading Time Taken Comments Vital Sign 138/90 03/15/2019 7:27 PM CDT Blood Pressure 89 03/15/2019 7:27 PM CDT Pulse 36.7 C (98 F) 03/15/2019 7:27 PM CDT Temperature 18 03/15/2019 7:27 PM CDT Respiratory Rate 99% 03/15/2019 7:27 PM CDT Oxygen Saturation - - Inhaled Oxygen Concentration 129.3 kg (285 lb) 03/15/2019 5:30 PM CDT Weight 182.9 cm (6') 03/15/2019 5:30 PM CDT Height 38.65 03/15/2019 5:30 PM CDT Body Mass Index documented in this encounter Discharge Instructions * Attachments The following attachments cannot be sent through Care Everywhere.* Upper Extremity Contusion (Kyrgyz) * Syncope, Causes of (Kyrgyz) documented in this encounter Plan of Treatment Care Team Description Date Type Specialty Kena Rubin MD [address] [place] [address] 05/20/2019 Office Visit Neurology Date/Time Name Type Priority Associated Diagnoses 03/15/2019 6:32 PM CDT XR SHOULDER 2+ VW RIGHT IMAGING STAT Injury of right shoulder, initial encounter Order Schedule Name Type Priority Associated Diagnoses ONCE for 1 Occurrences starting 03/15/2019 until 03/15/2019 XR SHOULDER 2+ VW RIGHT IMAGING STAT Injury of right shoulder, initial encounter Health Maintenance Due Date Last Done Comments [...] on 02/04/2016 by Humble Lester MD at [facility] FP Fully Threaded Pegs Peg screw Left: Arm Hand Implanted: Qty: 2 on 02/04/2016 by Humble Lester MD at [facility] FP20 / 20 / 20 Fullu Threaded Pegs Peg screw Left: Arm Hand Implanted: Qty: 1 on 02/04/2016 by Humble Lester MD at [facility] FP22 / / Fully Threaded Peg Peg screw Left: Arm Hand Implanted: Qty: 1 on 02/04/2016 by Humble Lester MD at [facility] FP Standard Peg Nonlocking Peg screw Left: Arm Hand Implanted: Qty: 1 on 02/04/2016 by Humble Lester MD at [facility] Standard Peg Nonlocking Peg screw Left: Arm Hand Implanted: Qty: 1 on 02/04/2016 by Humble Lester MD at [facility] [id number] / 14 / 14 Cortical Screw SCREW Left: Arm Hand Implanted: Qty: 3 on 02/04/2016 by Humble Lester MD at [facility] documented as of this encounter Results Not on filedocumented in this encounter Visit Diagnoses Diagnosis Injury of right shoulder, initial encounter - Primary Syncope, unspecified syncope type Contusion of right shoulder, initial encounter documented in this encounter Administered Medications Action Date Dose Rate Site Medication Order MAR Action 03/15/2019 6:28 PM CDT 2 tablets HYDROcodone-acetaminophen (NORCO 5) Given 5-325 mg tablet 2 tablet 2 tablet, Oral, ONCE, 1 dose, Thu03/15/19 at 1930, SACHIN documented in this encounter Insurance Type Payer Benefit Subscriber ID Effective Phone Address Plan / Dates Group Medicare Adv PPO [place] [facility] BCBS OF [id number] 2019-P [address] MEDICARE [place] resent [id number] [place] [id number] documented as of this encounter
--- OUTSIDE RECORDS SUMMARY | 2019-03-30 16:11 | XMS REPORT | Summary of Care ---
Author Author [facility] - Health Organization [facility] - Health Address Unknown Phone Unavailable Care Team Providers Care Lottery Clerk Name Role Phone Arturo Clark PCP Encounter Details Care Team Description Date Type Department Doctor Unassigned, [address] [place] [address] 03/20/2019 Orders Only [facility] [address] [place] [address] Allergies Comments Active Allergy Reactions Severity Noted Date Cefazolin Sodium Itching 09/24/2018 Ciprofloxacin Hives 02/28/2019 Patient states he denies codeine allergy Codeine Hives Low 04/29/2018 Cyclobenzaprine Hives 01/08/2019 Methylprednisolone Hives 01/27/2016 Penicillin Itching 11/30/2016 Mirtazapine Itching 04/22/2017 Ketorolac Tromethamine Itching 01/26/2016 Tramadol Hives Medium 12/12/2018 documented as of this encounter (statuses as of 03/25/2019) Medications End Date Status Medication Sig Dispensed [...] 40 mg by 0 tablet mouth daily. documented as of this encounter (statuses as of 03/25/2019) Active Problems Problem Noted Date Lower extremity [...] 01/28/2016 Dyslipidemia 01/28/2016 Coronary artery disease involving [place] coronary artery without angina 01/28/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 Tobacco abuse 01/28/2016 Chest pain 01/27/2016 Wrist pain 01/27/2016 documented as of this encounter (statuses as of 03/25/2019) Immunizations Name Administration Dates Next Due Influenza [...] Description Date Type Specialty Kena Rubin MD [address] [place] [place], [place] [id number] 05/20/2019 Office Visit Neurology Health Maintenance Due Date Last Done Comments EYE EXAM 1981 URINE MICROALBUMIN 1981 FOOT EXAM 1989 DTaP,Tdap,and Td Vaccines 1990 (1 - Tdap) PNEUMOCOCCAL 0-64 YEARS 09/04/2018 07/10/2018 COMBINED SERIES (1 of 1 - PPSV23) INFLUENZA VACCINE (#1) 2019 07/10/2018 HgA1C 07/10/2019 01/08/2019, 04/25/2018, 01/27/2016 LDL-C 02/20/2020 02/19/2019, 04/20/2017, 01/27/2016 CREATININE (SERUM) 03/17/2020 03/17/2019, 03/09/2019, 03/04/2019, Additional history exists documented as of this encounter Implants Device Identifier Shelf Expiration Date Model / Serial / 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 DVRAS-LEFT / DVRAS-LEFT / DVRAS-LEFT Dvr Left Plate PLATE Left: Arm Hand Implanted: Qty: 1 on 02/04/2016 by Humble Lester MD at [facility] FP24 / 24 Fully Threaded Pegs Peg screw Left: Arm Hand Implanted: Qty: 2 on 02/04/2016 by Humble Lester MD at [facility] FP20 / / 20 Fullu Threaded Pegs Peg screw Left: Arm Hand Implanted: Qty: 1 on 02/04/2016 by Humble Lester MD at [facility] FP22 / Fully Threaded Peg Peg screw Left: Arm Hand Implanted: Qty: 1 on 02/04/2016 by Humble Lester MD at [facility] FP Standard Peg Nonlocking Peg screw Left: Arm Hand Implanted: Qty: 1 on 02/04/2016 by Humble Lester MD at [facility] Standard Peg Nonlocking Peg screw Left: Arm Hand Implanted: Qty: 1 on 02/04/2016 by Humble Lester MD at [facility] [id number] / 14 Cortical Screw SCREW Left: Arm Hand Implanted: Qty: 3 on 02/04/2016 by Humble Lester MD at [facility] documented as of this encounter Procedures Comments Procedure Name Priority Date/Time Associated Diagnosis HOSPITAL ADMISSION MISC - Routine 03/20/2019 MEDICARE PATIENTS RIGHTS 12:01 AM CDT IMPORTANT MESSAGE documented in this encounter Results Not on filedocumented in this encounter Insurance Type Payer Benefit Subscriber ID Effective Phone Address Plan / Dates Group Medicare Adv PPO BCBS OF [place] [facility] BCBS OF [id number] 2019-P [address] MEDICARE [place] [facility] [id number] MED[place] [id number] [facility] [id number] 2018-P HEALTH BEHAVIORAL resent HEALTH documented as of this encounter
--- OUTSIDE RECORDS SUMMARY | 2019-03-30 16:11 | XMS REPORT | Summary of Care ---
Author Author [facility] - Health Organization [facility] - Health Address Unknown Phone Unavailable Care Team Providers Care Manager Ship Name Role Phone Eduardo Arturo PCP Reason for Visit * Reason Comments Transition Of Care Encounter Details Care Team Description Date Type Department Tonya Short, RN [phone] Transition Of Care 03/21/2019 Transition of [facility] Allergies Comments Active Allergy Reactions Severity Noted Date Cefazolin Sodium Itching 09/24/2018 Ciprofloxacin Hives 02/28/2019 Patient states he denies codeine allergy Codeine Hives Low 04/29/2018 Cyclobenzaprine Hives 01/08/2019 Methylprednisolone Hives 01/27/2016 Penicillin Itching 11/30/2016 Mirtazapine Itching 04/22/2017 Ketorolac Tromethamine Itching 01/26/2016 Tramadol Hives Medium 12/12/2018 documented as of this encounter (statuses as of 03/22/2019) Medications End Date Status Medication Sig Dispensed [...] as of this encounter (statuses as of 03/22/2019) Active Problems Problem Noted Date Lower extremity [...] 01/28/2016 Dyslipidemia 01/28/2016 Coronary artery disease involving [place] coronary artery without angina 01/28/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 Tobacco abuse 01/28/2016 Chest pain 01/27/2016 Wrist pain 01/27/2016 documented as of this encounter (statuses as of 03/22/2019) Immunizations Name Administration Dates Next Due Influenza [...] Description Date Type Specialty Kena Rubin MD [address] [place], [place] [id number] 05/20/2019 Office Visit Neurology Health Maintenance Due [...] on 02/04/2016 by Humble Lester MD at [facility] FP24 / / 24 Fully Threaded Pegs Peg screw Left: Arm Hand Implanted: Qty: 2 on 02/04/2016 by Humble Lester MD at [facility] FP20 / 20 / 20 Fullu Threaded Pegs Peg screw Left: Arm Hand Implanted: Qty: 1 on 02/04/2016 by Humble Lester MD at [facility] FP22 / / Fully Threaded Peg Peg screw Left: Arm Hand Implanted: Qty: 1 on 02/04/2016 by Humble Lester MD at [facility] FP24 Standard Peg Nonlocking Peg screw Left: Arm Hand Implanted: Qty: 1 on 02/04/2016 by Humble Lester MD at [facility] Standard Peg Nonlocking Peg screw Left: Arm Hand Implanted: Qty: 1 on 02/04/2016 by Humble Lester MD at [facility] [id number] / 14 Cortical Screw SCREW Left: Arm Hand Implanted: Qty: 3 on 02/04/2016 by Humble Lester MD at [facility] documented as of this encounter Results Not on filedocumented in this encounter Insurance Type Payer Benefit Subscriber ID Effective Phone Address Plan / Dates Group Medicare Adv PPO [place] - [place]ED BCBS OF [id number] 2019-P [address] [place]ICARE [place] [facility] [id number] [place] [id number] [facility] [place] [facility] [id number] 2018-P HEALTH BEHAVIORAL resent HEALTH documented as of this encounter
--- OUTSIDE RECORDS SUMMARY | 2019-03-30 16:11 | XMS REPORT | Summary of Care ---
Author Author [facility] - Health Organization [facility] - Health Address Unknown Phone Unavailable Care Team Providers Care Foundry Supervisor Name Role Phone Eduardo Arturo PCP Reason for Visit * Reason Comments Transition Of Care Encounter Details Care Team Description Date Type Department Tonya Short, RN [phone] Transition Of Care 03/21/2019 Transition of [facility] Allergies Comments Active Allergy Reactions Severity Noted Date Cefazolin Sodium Itching 09/24/2018 Ciprofloxacin Hives 02/28/2019 Patient states he denies codeine allergy Codeine Hives Low 04/29/2018 Cyclobenzaprine Hives 01/08/2019 Methylprednisolone Hives 01/27/2016 Penicillin Itching 11/30/2016 Mirtazapine Itching 04/22/2017 Ketorolac Tromethamine Itching 01/26/2016 Tramadol Hives Medium 12/12/2018 documented as of this encounter (statuses as of 03/21/2019) Medications End Date Status Medication Sig Dispensed [...] as of this encounter (statuses as of 03/21/2019) Active Problems Problem Noted Date Lower extremity [...] 01/28/2016 Dyslipidemia 01/28/2016 Coronary artery disease involving [place] coronary artery without angina 01/28/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 Tobacco abuse 01/28/2016 Chest pain 01/27/2016 Wrist pain 01/27/2016 documented as of this encounter (statuses as of 03/21/2019) Immunizations Name Administration Dates Next Due Influenza [...] Description Date Type Specialty Kena Rubin MD [address] [place], [place] [address] 05/20/2019 Office Visit Neurology Health Maintenance Due [...] on 02/04/2016 by Humble Lester MD at [facility] FP24 / / 24 Fully Threaded Pegs Peg screw Left: Arm Hand Implanted: Qty: 2 on 02/04/2016 by Humble Lester MD at [facility] FP20 / 20 / 20 Fullu Threaded Pegs Peg screw Left: Arm Hand Implanted: Qty: 1 on 02/04/2016 by Humble Lester MD at [facility] FP22 / / Fully Threaded Peg Peg screw Left: Arm Hand Implanted: Qty: 1 on 02/04/2016 by Humble Lester MD at [facility] FP24 Standard Peg Nonlocking Peg screw Left: Arm Hand Implanted: Qty: 1 on 02/04/2016 by Humble Lester MD at [facility] Standard Peg Nonlocking Peg screw Left: Arm Hand Implanted: Qty: 1 on 02/04/2016 by Humble Lester MD at [facility] [id number] / 14 Cortical Screw SCREW Left: Arm Hand Implanted: Qty: 3 on 02/04/2016 by Humble Lester MD at [facility] documented as of this encounter Results Not on filedocumented in this encounter Insurance Type Payer Benefit Subscriber ID Effective Phone Address Plan / Dates Group Medicare Adv PPO BCBS OF [place] - MANAGED BCBS OF [id number] 2019-P [address] MEDICARE [place] [facility] [id number] [place] [id number] [facility] [place] [id number] 2018-P HEALTH BEHAVIORAL resent HEALTH documented as of this encounter
--- NOTE | 2019-03-30 18:06 | NUR ---
PT STATES TO HAVE "URINARY RETENTION", WHEN QUESTIONED ABOUT LAST VOID HE STATES THAT HE URINATED THIS AM, BUT "ONLY DRIBBLING"; BEDSIDE BLADDER SCAN PERFORMED, PER SONOGRAM NOTED TO HAVE APPROX 205 CC OR URINE; INFORMED SUSANNE DARLING AT THIS TIME.
[2019-03-30 18:08] LABS: BASOPHILS % 0.3 % (0.0-1.0); EOSINOPHILS # (AUTO) 0.1 (0.0-0.4); EOSINOPHILS % 0.9 % (0.0-6.0); HEMATOCRIT 33.1 % (38.2-49.6); HEMOGLOBIN 11.1 g/dL (14.0-18.0); LYMPHOCYTES # (AUTO) 1.2 (1.0-3.2); LYMPHOCYTES % 18.6 % (18.0-39.1); MEAN CORPUSCULAR HEMOGLOBIN 30.8 pg (28-32); MEAN CORPUSCULAR HGB CONC 33.5 g/dL (31-35); MEAN CORPUSCULAR VOLUME 91.9 fL (81-99); MONOCYTES # (AUTO) 0.4 (0.2-0.8); MONOCYTES % 5.3 % (4.4-11.3); NEUTROPHILS % 74.6 % (38.7-80.0); PLATELET COUNT 139 x10e3/uL (140-360); RED CELL DISTRIBUTION WIDTH 14.1 % (11.7-14.4)
[2019-03-30 18:15] LABS: INR 0.99; PROTHROMBIN TIME 13.6 seconds (11.9-14.5)
[2019-03-30 18:16] LABS: PARTIAL THROMBOPLASTIN TIME 29.9 seconds (23.8-35.5)
[2019-03-30 18:20] LABS: BILIRUBIN,URINE NEGATIVE (NEGATIVE); CLARITY,URINE SL CLOUDY (CLEAR); COLOR,URINE YELLOW (YELLOW); KETONES,URINE NEGATIVE (NEGATIVE); LEUKOCYTE ESTERASE ,URINE NEGATIVE (NEGATIVE); NITRITE,URINE NEGATIVE (NEGATIVE); PROTEIN,URINE DIPSTICK NEGATIVE (NEGATIVE); URINE UROBILINOGEN 1 mg/dL (0.2 - 1)
[2019-03-30 18:23] LABS: ALANINE AMINOTRANSFERASE 11 IU/L (0-55); ALBUMIN 3.5 g/dL (3.5-5.0); ALBUMIN/GLOBULIN RATIO 1.4 (0.8-2.0); ALKALINE PHOSPHATASE 51 IU/L (40-150); ANION GAP 11.5 mmol/L (8-16); BLOOD UREA NITROGEN 12 mg/dL (7-26); BUN/CREATININE RATIO 10 (6-25); CALCIUM 9.9 mg/dL (8.4-10.2); CARBON DIOXIDE 28 mmol/L (22-29); CHLORIDE 101 mmol/L (98-107); CREATINE KINASE 64 IU/L (30-200); CREATININE, SERUM 1.17 mg/dL (0.72-1.25); EST GLOMERULAR FILTRATION RATE > 60 ML/MIN (60-); GLUCOSE 122 mg/dL (74-118); POTASSIUM 3.5 mmol/L (3.5-5.1); SODIUM 137 mmol/L (136-145)
[2019-03-30] MEDS ORDERED: ASPIRIN 81 MG CHEW TAB PO ONE (18:30)
[2019-03-30 18:31] LABS: AMORPHOUS SEDIMENT,URINE MODERATE (FEW); BACTERIA,URINE MODERATE /HPF
--- NOTE | 2019-03-30 18:41 | Diagnostic Imaging Report ---
EXAMINATION: CHEST SINGLE (PORTABLE) INDICATION: ^CHEST PAIN ^[id number] ^1810 ^Y COMPARISON: 02/18/2019 FINDINGS: AP view TUBES and LINES: None. LUNGS: Lungs are well inflated. Minimal left basilar haziness. PLEURA: No pleural effusion or pneumothorax. HEART AND MEDIASTINUM: The cardiomediastinal silhouette is unremarkable. BONES AND SOFT TISSUES: No acute osseous lesion. Soft tissues are unremarkable. UPPER ABDOMEN: No free air under the diaphragm. IMPRESSION: Minimal bibasilar haziness could represent subsegmental atelectasis or mild aspiration. Signed by: Dr. Panfilo Orourke MD on 03/30/2019 6:38 PM
[2019-03-30] MEDS ORDERED: SODIUM CHLORIDE 0.9% 1000ML 1,000 ML IV ONE (18:45)
--- NOTE | 2019-03-30 19:43 | Diagnostic Imaging Report ---
CT BRAIN WO HISTORY: Syncope COMPARISON: Head CT 02/18/2019 TECHNIQUE: Noncontrast axial scans were obtained from skull base to the vertex. Coronal and sagittal reconstructions obtained from the axial data. One or more of the following dose reduction techniques were used: Automated exposure control, adjustment of the mA and/or kV according to patient size, and/or utilization of iterative reconstruction technique. DISCUSSION: Scalp/Skull: Unremarkable. Brain sulci: Mildly prominent. Ventricles: Normal in size and configuration. No hydrocephalus. Extra-axial spaces: No masses or fluid collections. Parenchyma: No abnormal densities. No mass, hemorrhage, or large vascular territory acute infarct. Dural sinuses: No abnormal densities. Sellar/Suprasellar region: Intact. Skull base: Intact. Incidental findings: None. IMPRESSION: 1. No acute intracranial abnormalities. 2. Mild generalized cerebral volume loss. Signed by: Dr. Dontae Munguia M.D. on 03/30/2019 7:39 PM
--- NOTE | 2019-03-30 19:45 | Diagnostic Imaging Report ---
CT CERVICAL SPINE WO HISTORY: Syncope COMPARISON: Cervical spine CT 02/18/2019 TECHNIQUE: CT of the cervical spine without contrast. Sagittal and coronal reformations were created. One or more of the following dose reduction techniques were used: Automated exposure control, adjustment of the mA and/or kV according to patient size, and/or utilization of iterative reconstruction technique. FINDINGS: Cervical lordosis is straightened. There is no scoliosis or subluxation. No fractures, compression deformity, or destructive osseous lesions are seen. The craniocervical junction is intact. No gross spinal canal masses are seen. The paravertebral and paraspinal soft tissues are unremarkable. Minimal spondylosis is most prominent at C5-C6. Mild atlantoaxial arthrosis is present as well. IMPRESSION: No acute osseous abnormalities. Signed by: Dr. Dontae Munguia M.D. on 03/30/2019 7:41 PM
[2019-03-30] MEDS ORDERED: HYDROCODONE/APAP 5MG-325MG TAB PO NR (20:00)
[2019-03-30] MEDS ORDERED: ONDANSETRON HCL INJ 2MG/ML 2ML 2 MG/ML VIAL IV PRN (20:45)
[2019-03-30] MEDS ORDERED: DEXTROSE 50% SYRINGE 50 ML IV PRN (20:45)
[2019-03-30] MEDS ORDERED: SODIUM CHLORIDE FLUSH 10 ML SYR INJ PRN (20:45)
--- OUTSIDE RECORDS SUMMARY | 2019-03-30 20:49 | XMS REPORT | Clinical Summary ---
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 pectoris; Precordial pain 05/29/2018 Emergency Cardiology - 05/31/2018 Mouna Krishna RN Diabetes 05/20/2018 Telephone Cardiology Mouna Krishna RN Diabetes 05/19/2018 Telephone Cardiology Juli Saenz MD Tirukkovalluri, Srilakshmi, MD Agrawal, Neeraj, MD Precordial pain (Primary Dx); Tobacco abuse; History of OK (myocardial infarction); Dizziness; Anxiety; Coronary artery disease involving umkumiut coronary artery of umkumiut heart with unstable angina pectoris (HCC); PTSD (post-traumatic stress disorder); Hyperglycemia; Type 2 diabetes mellitus treated with insulin ([facility]) 05/07/2018 Hospital Cardiology - Encounter 05/11/2018 05/07/2018 [...] 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 05/09/2018 [id number] / / [id number] Closure Sys Perclose Progl 6fr Cardiovasc Right: Groin GARCIA [id number] - [id number] [facility] LAB:VASC Implanted: Qty: 1 on 12/26/2016 [...] ms QTC Calculatio n(Bazett) 418 ms P Columbia 26 degrees R Columbia 90 degrees T Columbia 51 degrees Sinus bradycardi a Rightward axis [...] ms QTC Calculatio n(Bazett) 425 ms P Columbia 17 degrees R Columbia 40 degrees T Columbia 56 degrees Normal sinus rhythm Incomplete right [...] ms QTC Calculatio n(Bazett) 455 ms P Columbia 38 degrees R Columbia 42 degrees T Columbia 42 degrees Sinus rhythm with Possible Premature [...] (H)Comment: TESTED AT 70 - 110 mg/dL [facility] [address] [facility] [address] Specimen Blood Performing Organization Address City/State/Zipcode Phone Number [address] [phone] [facility] * ECHOCARDIOGRAM REPORT - SCAN (11/20/2018 9:21 PM CDT) Narrative Performed At * Rapid drug screen, urine (11/20/2018 8:15 PM CDT) Only the most recent of 2 results within the time period is included. Barbiturate Screen Negative Negative [facility] Benzodiazepine Screen Negative Negative [facility] Cocaine (Metab.) Screen Negative Negative [facility] Methadone Screen Negative Negative [facility] Opiate Screen Positive (A) Negative [facility] Cannabinoid Screen Negative Negative [facility] Amph/Methamph Screen Negative Negative [facility] Phencyclidine Screen Negative Negative [facility] Oxycodone Screen Negative Negative [facility] Specimen Urine Narrative Performed At [facility] Cocaine 300 ng/mL [facility] Cjxqjkkaunq54 ng/mL Dxnczrobpzdfbn326 ng/mL Barbiturate 200 ng/mL Lkjocwkvnmiwd77 ng/mL Trxyod254 ng/mL Methadone 300 ng/mL Amphetamine/ 1000 ng/mL Methamphetamine Oxycodone 300 ng/mL This assay provides an unconfirmed qualitative test result for the clinical management of patients in emergency situations. Chain of custody not maintained. Some ewcc-fba-hcyovxg medications, as well as adulterants, may cause inaccurate results. Clinical correlation should be applied. A more comprehensive drug screen or confirmation of a detected drug may be performed upon request. Performing Organization Address City/State/Zipcode Phone Number [facility] [address] [place] [address] [facility] * Transthoracic 2D echo w/ doppler (cw/pw/color) (11/20/2018 2:13 PM CDT) Ejection Fraction [facility] [facility]KA[facility] Specimen Narrative Performed At Transthoracic Echocardiography Report (TTE) [facility] Demographics [facility] Patient Name Junior SAMUELS of Study 11/20/2018 SAMANTHA [id number] GenderMale Visit Number [id number] RaceUnknown [id number] Number [id number] Number Date of Birth1970 Referring Physician Ayala Teague MD Age48 year(s) Experience Designer Physician SARA Hdez Procedure Type of Study [...] Study 11/20/2018 SAMANTHA Gender Male Visit Number [id number] Race Unknown Room Number 1450 Number Date of 1970 Referring Physician Ayala Teague MD Age 48 year(s) Experience Designer Manuel Schuster Electrolysis Operator Jaki Cole Interpreting Cara Villalobos Physician Procedure [...] City/State/Zipcode Phone Number [facility] * Troponin I (11/20/2018 12:04 PM CDT) Only the most recent of 10 results within the time period is included. Troponin I <0.01 0.00 - 0.03 ng/mL [facility] Specimen Blood Narrative Performed At Troponin I (TnI) levels must be interpreted in the context of the presenting [facility] symptoms and the clinical findings. Elevated TnI levels indicate myocardial [facility] damage, but are not specific for ischemic heart disease. Elevated TnI levels are seen in patients with other cardiac conditions (including myocarditis and congestive heart failure), and slight TnI elevations occur in patients with other conditions, including sepsis, renal failure, acidosis, acute neurological disease, and persistent tachyarrhythmia. Performing Organization Address City/State/Zipcode Phone Number [facility] [address] [place] [address] MED[facility] * ECG 12 lead (11/20/2018 5:54 AM CDT) Only the most recent of 6 results within the time period is included. Specimen Narrative Performed At Ventricular Rate 53 BPM GE MUSE Atrial Rate 53 BPM P-R Interval 206 ms QRS Duration 102 ms Q-T Interval 446 ms QTC Calculation(Bazett) 418 ms P Columbia 26 degrees R Columbia 90 degrees T Columbia 51 degrees Sinus bradycardia Nonspecific T wave [...] 446 ms QTC Calculation(Bazett) 418 ms P Columbia 26 degrees R Columbia 90 degrees T Columbia 51 degrees Sinus bradycardia Nonspecific T wave abnormality Abnormal ECG When compared with ECG of 06-JUN-2018 18:44, Vent. rate has decreased BY 44 BPM Criteria for Inferior infarct are no longer Present Nonspecific T wave abnormality, worse in Anterior leads Confirmed by MD Christy Roberto ([id number]) on 11/20/2018 4:23:20 PM Performing Organization Address City/State/Zipcode Phone Number [employer] * Hemoglobin A1c (11/20/2018 4:07 AM CDT) Only the most recent of 2 results within the time period is included. Hemoglobin A1C 7.7 (H) 4.3 - 6.1 % [facility] Specimen Blood Performing Organization Address [facility] Phone Number [address] [address] [facility] * Lipid panel (11/20/2018 4:07 AM CDT) Only the most recent of 3 results within the time period is included. Triglycerides 110 mg/dL [facility] Cholesterol 162 mg/dL [facility] HDL 42 mg/dL [facility] LDL Calculated 98 mg/dL [facility] Specimen Blood Narrative Performed At Triglyceride Reference Range: [facility] Low Risk <150 [facility] [id number] High Risk 200-499 Very High Risk>=500 Cholesterol Reference Range: Low Risk <200 [id number] High Risk>240 HDL Cholesterol Reference Range: Low Risk >=60 High Risk <40 LDL Cholesterol Reference Range: Optimal<100 Near Dntabcf126-798 Aknpgkqebz094-727 Imuu239-154 Very High >=190 Performing Organization Address City/[facility] Centercode Phone Number [facility] [address] [place] [address] [facility] * Comprehensive metabolic panel (11/20/2018 4:07 AM CDT) Only the most recent of 2 results within the time period is included. Protein, Total 6.3 6.0 - 8.3 gm/dL [facility] Albumin 3.8 3.5 - 5.0 g/dL [facility] Alkaline Phosphatase 60 40 - 150 U/L [facility] Total Bilirubin 0.3 0.2 - 1.2 mg/dL [facility] Sodium 136 136 - 145 meq/L [facility] Potassium 4.0 3.5 - 5.1 meq/L [facility] Chloride 107 98 - 107 meq/L [facility] CO2 23 22 - 29 meq/L [facility] BUN 18 7 - 21 mg/dL [facility] Creatinine 1.17 0.57 - 1.25 mg/dL [facility] Glucose 131 (H) 70 - 105 mg/dL [facility] Calcium 9.2 8.4 - 10.2 mg/dL [facility] AST 23 5 - 34 U/L [facility] ALT 31 6 - 55 U/L [facility] EGFR 67Comment: ESTIMATED GFR IS mL/min/1.73 sq m [facility] NOT ACCURATE CREATININE [facility] CLEARANCE IN PREDICTING GLOMERULAR FILTRATION RATE. ESTIMATED GFR IS NOT APPLICABLE FOR DIALYSIS PATIENTS. Specimen Blood Performing Organization Address City/State/Zipcode Phone Number [facility] [address] [place] [address] [facility] * CBC with platelet count + automated diff (11/20/2018 1:46 AM CDT) Only the most recent of 8 results within the time period is included. WBC 7.7 3.5 - 10.5 K/L [facility] RBC 4.64 4.63 - 6.08 M/L [facility] Hemoglobin 13.8 13.7 - 17.5 GM/DL [facility] Hematocrit 41.4 40.1 - 51.0 % [facility] MCV 89.2 79.0 - 92.2 fL [facility] MCH 29.7 25.7 - 32.2 pg [facility] MCHC 33.3 32.3 - 36.5 GM/DL [facility] RDW 14.6 (H) 11.6 - 14.4 % [facility] Platelets 190 150 - 450 K/CU MM [facility] MPV 8.4 (L) 9.4 - 12.4 fL [facility] nRBC 0 0 - 0 /100 WBC [facility] % Neutros 66 % [facility] % Lymphs 26 % [facility] % Monos 6 % [facility] % Eos 1 % [facility] % Baso 0 % [facility] # Neutros 5.07 1.78 - 5.38 K/L [facility] # Lymphs 2.00 1.32 - 3.57 K/L [facility] # Monos 0.49 0.30 - 0.82 K/L [facility] # Eos 0.04 0.04 - 0.54 K/L [facility] # Baso 0.03 0.01 - 0.08 K/L [facility] Immature 0 0 - 1 % [facility] Granulocytes-[facility] Specimen Blood Performing Organization Address City/[facility]/[place] [address] [phone] [place] [address] * Magnesium (11/20/2018 1:46 AM CDT) Only the most recent of 5 results within the time period is included. Magnesium 2.2 1.6 - 2.6 mg/dL [facility] Specimen Blood Performing Organization Address City/[facility]/Zipcode Phone Number [address] [address] [facility] * Basic Metabolic Panel (11/20/2018 1:46 AM CDT) Only the most recent of 9 results within the time period is included. Sodium 135 (L) 136 - 145 meq/L [facility] Potassium 3.9 3.5 - 5.1 meq/L [facility] Chloride 106 98 - 107 meq/L [facility] CO2 21 (L) 22 - 29 meq/L [facility] BUN 19 7 - 21 mg/dL [facility] Creatinine 1.20 0.57 - 1.25 mg/dL [facility] Glucose 126 (H) 70 - 105 mg/dL [facility] Calcium 9.1 8.4 - 10.2 mg/dL [facility] EGFR 65Comment: ESTIMATED GFR IS mL/min/1.73 sq m [facility] NOT ACCURATE CREATININE [facility] CLEARANCE IN PREDICTING GLOMERULAR FILTRATION RATE. ESTIMATED GFR IS NOT APPLICABLE FOR DIALYSIS PATIENTS. Specimen Blood Performing Organization Address City/State/Zipcode Phone Number [facility] [address] [place] [address] [facility] * XR knee complete 4 views left (11/20/2018 1:22 AM CDT) Specimen Narrative Performed At FINAL REPORT [facility] CLINICAL HISTORY: Pain 4 views of the left knee are submitted without comparison. There is no acute fracture or malalignment. No destructive bony lesion, significant degenerative change or radiopaque foreign body is present. The surrounding soft tissues are normal. IMPRESSION: No acute abnormality. Signed: Christian Anderson MD Report Verified Date/Time:11/20/2018 01:52:22 Reading Location: [address] Reading Room Procedure Note Interface, External [...] Report Verified Date/Time: 11/20/2018 01:52:22 Reading Location: [address] Reading Room Performing Organization Address [facility] Phone Number [facility] * XR chest 1 view portable / bedside (11/20/2018 1:21 AM CDT) Only the most recent of 2 results within the time period is included. Specimen Narrative Performed At FINAL REPORT [facility] History: Shortness of breath. Comparison: 05/07/2018 Findings: A single view of the chest is submitted. The cardiomediastinal contours are unremarkable. There is no focal consolidation, pneumothorax, large pleural effusion or evidence of overt pulmonary edema. There is no acute bony abnormality. Impression: No acute abnormality. Signed: Christian Anderson MD Report Verified Date/Time:11/20/2018 01:59:03 Reading Location: [address] Reading Room Procedure Note Interface, External [...] Report Verified Date/Time: 11/20/2018 01:59:03 Reading Location: [address] Reading Room Performing Organization Address [facility] Phone Number [facility] * ECG/EKG Interpretation [...] PM CDT) Ketones, Blood 0.1 <0.4 mmol/L [facility] Specimen Blood Performing Organization Address [facility] Phone Number [facility] [address] [place] [address] [facility] * PT/aPTT (06/04/2018 9:11 PM CDT) Only the most recent of 3 results within the time period is included. Protime 12.5 11.7 - 14.7 seconds [facility] INR 0.9 <=5.9 [facility] PTT 23.9 22.5 - 36.0 seconds [facility] Specimen Blood Narrative Performed At RECOMMENDED COUMADIN/WARFARIN INR THERAPY RANGES [facility] STANDARD DOSE: 2.0 - 3.0 Includes: PROPHYLAXIS for venous thrombosis, [facility] systemic embolization; TREATMENT for venous thrombosis and/or pulmonary embolus. HIGH RISK: Target INR is 2.5-3.5 for patients with mechanical heart valves. Performing Organization Address [facility] Phone Number [facility] [address] [place] [address] [facility] * CT brain without IV contrast (06/04/2018 7:23 PM CDT) Only the most recent of 2 results within the time period is included. Specimen Narrative Performed At FINAL REPORT [employer] CT head without contrast INDICATION: Ataxia, head [...] MD Report Verified Date/Time:06/04/2018 19:34:16 Reading Location: [facility] Radiology Reading Room Procedure Note Interface, [...] Report Verified Date/Time: 06/04/2018 19:34:16 Reading Location: [facility] Radiology Reading Room Performing Organization Address City/State/Zipcode Phone Number [facility] * Urinalysis w/Microscopic (05/30/2018 8:31 PM CDT) Color, UA Light Yellow [facility] Clarity, UA Clear [facility] Specific Plummer, UA 1.013 1.001 - 1.035 [facility] pH, UA 6.0 5.0 - 8.0 [facility] Protein, UA Negative Negative [facility] Glucose, UA >1000 mg/dL (A) Negative [facility] Ketones, UA Negative Negative [facility] Bilirubin, UA Negative Negative [facility] Blood, UA Negative Negative [facility] Nitrite, UA Negative Negative [facility] Leukocytes, UA Negative Negative [facility] Urobilinogen, UA 0.2 0.2 - 1.0 mg/dL [facility] RBC, UA <1 /HPF [facility] WBC, UA 0 /HPF [facility] Specimen Source Urine, Clean Catch [facility] Specimen Urine Performing Organization Address City/State/Zipcode Phone Number [facility] [address] [phone] MEDICAL CENTER * XR spine lumbar complete 4 views min (05/29/2018 6:38 PM CDT) Specimen Narrative Performed At FINAL REPORT [facility] RAD, SPINE, LUMBAR, COMPLETE (MIN 4 VIEWS) [...] MD Report Verified Date/Time:05/29/2018 19:24:24 Reading Location: [facility] C013Y CT Body Reading Room Procedure Note [...] Report Verified Date/Time: 05/29/2018 19:24:24 Reading Location: [facility] C013Y CT Body Reading Room Performing Organization Address [facility] Phone Number [facility] * XR pelvis [...] MD Report Verified Date/Time:05/29/2018 19:16:28 Reading Location: [address] Reading Room Procedure Note Interface, External [...] Report Verified Date/Time: 05/29/2018 19:16:28 Reading Location: [address] Reading Room Performing Organization Address [facility] Phone Number [facility] * XR ribs with pa chest 3 views min left (05/29/2018 6:33 PM CDT) Specimen Narrative Performed At FINAL REPORT [employer] RAD, RIBS, LEFT \T\ PA CHEST, MIN [...] MD Report Verified Date/Time:05/29/2018 19:12:04 Reading Location: [facility] [address] Body Reading Room Procedure Note Interface, [...] Report Verified Date/Time: 05/29/2018 19:12:04 Reading Location: [facility] C013Y CT Body Reading Room Performing Organization Address [facility] Phone Number [facility] * CT spine cervical without IV contrast (05/29/2018 5:34 PM CDT) Specimen Narrative Performed At FINAL REPORT [employer] CT cervical spine without contrast INDICATION: DIZZINESS [...] MD Report Verified Date/Time:05/29/2018 17:30:29 Reading Location: [address] Neuro Reading Room Procedure Note Interface, [...] Report Verified Date/Time: 05/29/2018 17:30:29 Reading Location: [facility] C0[facility] Neuro Reading Room Performing Organization Address City/[facility] Centercode Phone Number [facility] * Phosphorus (05/29/2018 4:46 PM CDT) Phosphorus 3.4Comment: Specimen markedly 2.3 - 4.7 mg/dL [facility] hemolyzed [facility] Specimen Blood Performing Organization Address [facility] Phone Number [address] [address] [phone] [place] [address] * Creatine Kinase (CK), Total and MB (05/29/2018 4:46 PM CDT) Only the most recent of 2 results within the time period is included. Total CK 199 29 - 200 U/L [facility] CK-MB 4.8 0.0 - 6.6 ng/mL [facility] MB Relative Index 2.4 % [facility] Specimen Blood Narrative Performed At CK-MB Reference Range: [facility] <6.7Normal [facility] 6.7-10.0Borderline >10.0 Abnormal Performing Organization Address [facility] Phone Number [facility] [address] [place] [address] [facility] * MR brain without IV contrast (05/09/2018 12:49 PM CDT) Specimen Narrative Performed At FINAL REPORT [facility] MRI brain without contrast INDICATION: Headache, dizziness. [...] MD Report Verified Date/Time:05/09/2018 11:23:03 Reading Location: [address] Neuro Reading Room Procedure Note Interface, [...] Report Verified Date/Time: 05/09/2018 11:23:03 Reading Location: [address] Neuro Reading Room Performing Organization Address City/State/Zipcode Phone Number [facility] * EEG AWAKE AND DROWSY (05/08/2018 2:27 PM CDT) Specimen Narrative Performed At Neurophysiology Electroencephalogram Report [facility] DATE OF REPORT: 05/08/18 Date(s) of Study: 05/08/2018 ACC: [id number] EE Start time: 05/08/2018 at 13:55 Stop time: 05/08/2018 at 14:16 ICD-10: R56.9 CPT Code: 64997 HISTORY: 47 y old male with h/o [...] REPORT: 05/08/18 Date(s) of Study: 05/08/2018 ACC: [id number] EE Start time: 05/08/2018 at 13:55 Stop time: 05/08/2018 at 14:16 ICD-10: R56.9 CPT Code: 63560 HISTORY: 47 y old male with h/o [...] MS Clinical Neurophysiology/Epilepsy Attending Performing Organization Address City/[facility]/Zipcode Phone Number [facility] * B-type Natriuretic Factor (BNP) (05/07/2018 2:01 PM CDT) BNP 20 0 - 100 pg/mL [facility] Specimen Blood Performing Organization Address [facility]/Zipcode Phone Number [place] [phone] [place] [address] MEDICAL [facility]ENTER after 03/29/2018 Insurance Payer Benefit Subscriber ID Type Phone Address Plan / Group BLUE CROSS/BLUE SHIELD BCBS ADV xxxxxxxxxxxx [phone] [address] [place] [address] EXCHANGE Advance Directives For more information, please contact: [address] [address] Date Inactivated Comments Code Status Date Activated 05/31/2018 2:13 PM Full Code 05/29/2018 8:14 PM This code status was determined by: Patient 05/11/2018 6:00 PM Full Code 05/07/2018 4:35 PM This code status was determined by: Patient 12/27/2016 2:48 PM Full Code 12/25/2016 6:06 AM This code status was determined by: Patient
--- OUTSIDE RECORDS SUMMARY | 2019-03-30 20:49 | XMS REPORT | Clinical Summary ---
Author Author [facility] [employer] [facility] [employer] Address Unknown Phone Unavailable Care Team Providers Care Varnishing Unit Tool Setter Name Role Phone Paula Clay MD PCP [...] mouth every tablet morning. Active AFLURIA QUAD [id number], ADM 0.5ML IM 0 PF, 60 mcg/0.5 [...] Comments Vital Sign 124/78 08/19/2018 12:16 PM PRISON CLASSIFICATION COUNSELOR Blood Pressure 76 08/19/2018 12:16 PM PRISON CLASSIFICATION COUNSELOR Pulse 36.4 C (97.5 F) 08/19/2018 12:16 PM PRISON CLASSIFICATION COUNSELOR Temperature 20 08/19/2018 12:16 PM PRISON CLASSIFICATION COUNSELOR Respiratory Rate 96% 08/19/2018 12:16 PM PRISON CLASSIFICATION COUNSELOR Oxygen Saturation - - Inhaled Oxygen Concentration 140 kg (308 lb 10.3 oz) 08/19/2018 12:18 PM PRISON CLASSIFICATION COUNSELOR Weight 182.9 cm (6') 08/19/2018 12:18 PM PRISON CLASSIFICATION COUNSELOR Height 41.86 08/19/2018 12:18 PM PRISON CLASSIFICATION COUNSELOR Body Mass Index Plan of Treatment Health Maintenance Due Date Last Done Comments DIABETIC RETINAL EYE EXAM 1971 DIABETIC FOOT EXAM 1981 INFLUENZA VACCINE 03/10/2019 Implants Device Identifier Shelf Expiration Date Model / Serial / 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 12/08/2019 [id number] / / [id number] Device Vasclr Clsr Baln Cath 10ml Cardiovasc N/A: N/A CARDINAL Lkng Syr 6fr 7fr [facility] [id number] Implants Implanted: 01/25/2018 at [facility] (Quantity not on file) Metal Description:plates and screws on the left wrist Procedures Comments Procedure Name Priority Date/Time Associated Diagnosis ECG ED PRELIMINARY Routine 08/19/2018 INTERPRETATION 12:32 PM PRISON CLASSIFICATION COUNSELOR ECG 12-LEAD STAT 08/19/2018 12:[address] THORACIC SPINE WO STAT 08/17/2018 CONTRAST 2:19 AM [address] CT HEAD WO CONTRAST STAT 08/17/2018 2:15 AM PRISON CLASSIFICATION COUNSELOR ECG ED PRELIMINARY Routine 08/17/2018 INTERPRETATION 1:51 AM PRISON CLASSIFICATION COUNSELOR ESTIMATED GFR STAT 08/17/2018 1:51 AM PRISON CLASSIFICATION COUNSELOR B NATRIURETIC PEPTIDE STAT 08/17/2018 1:51 AM PRISON CLASSIFICATION COUNSELOR TROPONIN STAT 08/17/2018 1:51 AM PRISON CLASSIFICATION COUNSELOR COMPREHENSIVE METABOLIC STAT 08/17/2018 PANEL 1:51 AM PRISON CLASSIFICATION COUNSELOR HC COMPLETE BLD COUNT STAT 08/17/2018 W/AUTO DIFF 1:51 AM PRISON CLASSIFICATION COUNSELOR ECG 12-LEAD STAT 08/17/2018 12:36 AM PRISON CLASSIFICATION COUNSELOR URINALYSIS SCREEN AND STAT 08/01/2018 MICROSCOPY, WITH REFLEX 11:00 PM PRISON CLASSIFICATION COUNSELOR TO CULTURE URINE DRUGS OF ABUSE STAT 08/01/2018 SCREEN 11:00 PM PRISON CLASSIFICATION COUNSELOR URINE CULTURE STAT 08/01/2018 11:00 PM PRISON CLASSIFICATION COUNSELOR ESTIMATED GFR STAT 08/01/2018 10:28 PM PRISON CLASSIFICATION COUNSELOR CREATINE KINASE, TOTAL STAT 08/01/2018 (CPK) 10:28 PM PRISON CLASSIFICATION COUNSELOR B NATRIURETIC PEPTIDE STAT 08/01/2018 10:28 PM PRISON CLASSIFICATION COUNSELOR TROPONIN STAT 08/01/2018 10:28 PM PRISON CLASSIFICATION COUNSELOR MAGNESIUM LEVEL STAT 08/01/2018 10:28 PM PRISON CLASSIFICATION COUNSELOR PHOSPHORUS LEVEL STAT 08/01/2018 10:28 PM PRISON CLASSIFICATION COUNSELOR COMPREHENSIVE METABOLIC STAT 08/01/2018 PANEL 10:28 PM PRISON CLASSIFICATION COUNSELOR HC COMPLETE BLD COUNT STAT 08/01/2018 W/AUTO DIFF 10:28 PM [address] CERVICAL SPINE WO STAT 08/01/2018 CONTRAST 10:27 PM PRISON CLASSIFICATION COUNSEL[facility] CT HEAD WO CONTRAST STAT 08/01/2018 10:25 PM PRISON CLASSIFICATION COUNSELOR XR FOREARM 2 VW RIGHT STAT 08/01/2018 10:11 PM PRISON CLASSIFICATION COUNSELOR XR WRIST 3+ VW RIGHT STAT 08/01/2018 10:10 PM PRISON CLASSIFICATION COUNSELOR XR CHEST 1 VW PORTABLE STAT 08/01/2018 10:10 PM PRISON CLASSIFICATION COUNSELOR ECG 12-LEAD STAT 08/01/2018 9:48 PM PRISON CLASSIFICATION COUNSELOR ECG ED PRELIMINARY Routine 08/01/2018 INTERPRETATION 9:39 PM PR[facility] CLASS[employer] [facility] CT ABDOMEN PELVIS WO STAT 07/18/2018 CONTRAST 7:42 PM PRISON CLASSIFICATION COUNSELOR CT HEAD WO CONTRAST STAT 07/18/2018 7:42 PM PRISON CLASSIFICATION COUNSELOR XR CHEST 1 VW PORTABLE STAT 07/18/2018 7:22 PM PRISON CLASSIFICATION COUNSELOR POC GLUCOSE Routine 07/18/2018 7:15 PM PRISON CLASSIFICATION COUNSELOR ECG 12-LEAD STAT 07/18/2018 7:07 PM PRISON CLASSIFICATION COUNSELOR ECG ED PRELIMINARY Routine 07/18/2018 INTERPRETATION 6:56 PM PRISON CLASSIFICATION COUNSEL[facility] CT HEAD WO CONTRAST STAT 07/14/2018 8:45 PM PRISON CLASSIFICATION COUNSELOR CT CERVICAL SPINE WO STAT 07/14/2018 CONTRAST 8:44 PM PRISON CLASSIFICATION COUNSELOR ECG ED PRELIMINARY Routine 07/14/2018 INTERPRETATION 1:51 PM PRISON CLASSIFICATION COUNSELOR ECG 12-LEAD STAT 07/14/2018 12:15 PM PRISON CLASSIFICATION COUNSELOR ESTIMATED GFR STAT 07/14/2018 12:00 PM PRISON CLASSIFICATION COUNSELOR PROTHROMBIN TIME WITH INR STAT 07/14/2018 12:00 PM PRISON CLASSIFICATION COUNSELOR PARTIAL THROMBOPLASTIN STAT 07/14/2018 TIME (PTT) 12:00 PM PRISON CLASSIFICATION COUNSELOR B NATRIURETIC PEPTIDE STAT 07/14/2018 12:00 PM PRISON CLASSIFICATION COUNSELOR TROPONIN STAT 07/14/2018 12:00 PM PRISON CLASSIFICATION COUNSELOR COMPREHENSIVE METABOLIC STAT 07/14/2018 PANEL 12:00 PM PRISON CLASSIFICATION COUNSELOR HC COMPLETE BLD COUNT STAT 07/14/2018 W/AUTO DIFF 12:00 PM PRISON CLASSIFICATION COUNSELOR CT THORACIC SPINE WO STAT 07/13/2018 CONTRAST 11:36 PM PRISON CLASSIFICATION COUNSELOR CT CERVICAL SPINE WO STAT 07/13/2018 CONTRAST 11:35 PM PRISON CLASSIFICATION COUNSELOR CT LUMBAR SPINE WO STAT 07/13/2018 CONTRAST 11:35 PM PRISON CLASSIFICATION COUNSELOR CT HEAD WO CONTRAST STAT 07/13/2018 11:34 PM PRISON CLASSIFICATION COUNSELOR ECG 12-LEAD STAT 07/13/2018 10:50 PM PRISON CLASSIFICATION COUNSELOR ECG ED PRELIMINARY Routine 07/13/2018 INTERPRETATION 10:32 PM PRISON CLASSIFICATION COUNSELOR XR CERVICAL SPINE STAT 06/23/2018 COMPLETE 2:42 PM PRISON CLASSIFICATION COUNSELOR XR LUMBAR SPINE 2 OR 3 VW STAT 06/23/2018 2:42 PM PRISON CLASSIFICATION COUNSELOR XR CHEST 2 VW STAT 06/23/2018 2:41 PM PRISON CLASSIFICATION COUNSELOR ECG ED PRELIMINARY Routine 06/23/2018 INTERPRETATION 1:08 PM PRISON CLASSIFICATION COUNSELOR ECG 12-LEAD STAT 06/23/2018 12:54 PM PRISON CLASSIFICATION COUNSELOR TROPONIN Timed 06/04/2018 12:46 AM CDT ECG [...] CDT TROPONIN Timed 04/27/2018 4:42 AM CDT OR CRITICAL CARE, E/M Routine 04/27/2018 30-74 MINUTES [...] - Not an Order (08/19/2018 12:32 PM PRISON CLASSIFICATION COUNSELOR) Only the most recent of 21 results within the time period is included. Narrative Performed At Braxton Ramirez MD 08/20/20186:51 AM ECG ED Preliminary Interpretation - Not an Order Performed by: Braxton Ramirez MD Authorized by: Braxton Ramirez MD ECG reviewed by ED Physician in the absence of a blast furnace helper: yes Rate: ECG rate:77 ECG rate assessment: normal Rhythm: Rhythm: sinus rhythm Ectopy: Ectopy: none QRS: QRS axis:Normal Conduction: Conduction: abnormal Abnormal conduction: incomplete RBBB ST segments: ST segments:Normal T waves: T waves: normal * ECG 12 lead (08/19/2018 12:32 PM PRISON CLASSIFICATION COUNSELOR) Only the most recent of 24 results within the time period is included. Ventricular 77 [facility] MUSE rate Atrial rate 77 [facility] M[facility] OR interval 198 [facility] M[facility] QRSD interval 114 [...] At Performing Organization Address City/State/Zipcode Phone Number [facility] MUSE [address] [place] [address] * CT Thoracic Spine Wo Contrast (08/17/2018 2:19 AM PRISON CLASSIFICATION COUNSELOR) Only the most recent of 2 results [...] acute osseous abnormality of the thoracic spine. [facility]-[id number] Procedure Note Hm Interface, Radiology Results Incoming - 08/17/2018 2:26 AM PRISON CLASSIFICATION COUNSELOR EXAM: CT THORACIC SPINE WO CONTRAST CLINICAL [...] acute osseous abnormality of the thoracic spine. [facility]-[id number] Performing Organization Address City/State/Zipcode Phone Number [facility] [address] [place] [address] * CT Head Wo Contrast (08/17/2018 2:15 AM PRISON CLASSIFICATION COUNSELOR) Only the most recent of 12 results [...] No CT evidence for acute intracranial abnormality. [id number] Procedure Note Interface, Radiology Results Incoming - 08/17/2018 2:24 AM PRISON CLASSIFICATION COUNSELOR EXAM: CT HEAD WO CONTRAST CLINICAL HISTORY: [...] No CT evidence for acute intracranial abnormality. [facility]-[id number] Performing Organization Address City/[facility]/Zipcode Phone Number [facility] [address] [place] [address] * Estimated GFR (08/17/2018 1:51 AM PRISON CLASSIFICATION COUNSELOR) Only the most recent of 16 results within the time period is included. Estimated GFR 80 mL/min/1.73 m2 [facility] Comment: ANASTASIYA QUINN [facility] G1 >=90 Normal or high G2 60-89Mildly decreased [id number] Mildly to moderately decreased [id number] Moderately to severely decreased G4 15-29Severely decreased G5 <15Kidney failure The eGFR was calculated using the Chronic Kidney Disease Epidemiology Collaboration (CKD-EPI) equation. Interpretation is based on recommendations of the National Kidney Foundation-Kidney Disease Outcomes Quality Initiative (NKF-KDOQI) published in 2014. Specimen Plasma specimen Performing Organization Address City/State/Zipcode Phone Number [facility] [address] [place] [address] PATHOLOGY AND GENOMIC MEDICINE [facility] [address] [place], [place] [id number] [place] [address] * Troponin (08/17/2018 1:51 AM PRISON CLASSIFICATION COUNSELOR) Only the most recent of 29 results within the time period is included. Troponin <0.30 0.00 - 0.30 ng/mL [facility] Comment: [facility] 0.11 - 1.49 [facility] indicate increased risk of acute coronary syndrome. >=1.5 ng/ml Consistent with acute myocardial infarction. The diagnostic value of a single normal or non-diagnostic result is questionable.Serial samples at 2-6 hour intervals are required to rule out acute myocardial injury. Specimen Plasma specimen Performing Organization Address City/State/Zipcode Phone Number [facility] DEPARTMENT OF [address] [facility] [place] [address] PATHOLOGY AND GENOMIC MEDICINE [facility] [address] [place], [place] [phone] [place] [address] * CBC with platelet and differential (08/17/2018 1:51 AM PRISON CLASSIFICATION COUNSELOR) Only the most recent of 19 results within the time period is included. [facility] WBC 6.1 4.2 - 11.0 k/uL [facility] RBC 4.39 4.04 - 5.86 m/uL [facility] HGB 12.8 (L) 13.0 - 17.3 g/dL [facility] HCT 39.3 34.0 - 45.0 % [facility] MCV 89.5 80.0 - 98.0 fL [facility] MCH 29.2 27.0 - 34.0 pg [facility] MCHC 32.6 31.5 - 36.5 g/dL [facility] RDW - SD 45.1 37.0 - 51.0 fL [facility] MPV 8.9 7.4 - 10.4 fL [facility] Platelet count 217 150 - 400 k/uL [facility] Nucleated RBC 0.00 /100 WBC [facility] Neutrophils 65.3 36.0 - 66.0 % [facility] Lymphocytes 26.2 24.0 - 44.0 % [facility] Monocytes 6.3 (H) 0.0 - 6.0 % [facility] Eosinophils 1.2 0.0 - 6.0 % [facility] Basophils 0.5 0.0 - 1.2 % [facility] Immature 0.5 0.0 - 1.0 % [facility] granulocytes [facility] Specimen Blood Performing Organization Address City/[facility]/Zipcode Phone Number [facility] [address] [place] [address] PATHOLOGY AND GENOMIC MEDICINE [address] * B natriuretic peptide (08/17/2018 1:51 AM PRISON CLASSIFICATION COUNSELOR) Only the most recent of 15 results within the time period is included. Pathologist [facility] BNP 47 0 - 100 pg/mL [facility] Specimen Blood Performing Organization Address City/[facility] [place] [address] PATHOLOGY AND [facility] MEDICINE [address] * Comprehensive metabolic panel (08/17/2018 1:51 AM PRISON CLASSIFICATION COUNSELOR) Only the most recent of 15 results within the time period is included. Sodium 141 135 - 150 mEq/L [facility] Potassium 3.8 3.5 - 5.0 mEq/L [facility] Chloride 101 98 - 112 mEq/L [facility] CO2 28 24 - 31 mmol/L [facility] Anion gap 12@ANIO 7 - 15 mEq/L [facility] BUN 8 7 - 18 mg/dL [facility] Creatinine 1.10 0.70 - 1.20 mg/dL [facility] Glucose 165 (H) 65 - 100 mg/dL [facility] Calcium 10.1 8.3 - 10.2 mg/dL [facility] Protein 6.9 6.3 - 8.3 g/dL [facility] Albumin 3.6 3.5 - 5.0 g/dL [facility] A/G ratio 1.1 0.7 - 3.8 [facility] Alkaline 76 0 - 129 U/L [facility] phosphatase [facility] AST 17 10 - 50 U/L [facility] ALT 24 5 - 50 U/L [facility] Total bilirubin <0.3 0.2 - 1.2 mg/dL [facility] Specimen Plasma specimen Performing Organization Address City/[facility] Corporationcode Phone Number [facility] DEPARTMENT [address] [facility] [place] [address] PATHOLOGY AND GENOMIC MEDICINE [place] [id number] [place] [id number] [place] [address] * Urinalysis screen and microscopy, with reflex to culture (08/01/2018 11:00 PM PRISON CLASSIFICATION COUNSELOR) Only the most recent of 5 results within the time period is included. Specimen site Clean catch [facility] Color, UA Straw [facility] Appearance, UA Clear [facility] Specific 1.008 1.001 - 1.035 [place] gravity, UA [facility] pH, UA 5.0 5.0 - 8.5 [facility] Protein, UA Negative Negative [facility] Glucose, UA Negative Negative [facility] Ketones, UA Negative Negative [facility] Bilirubin, UA Negative Negative [facility] Blood, UA Negative Negative [facility] Nitrite, UA Negative Negative [facility] Urobilinogen, Negative <2.0 [facility] Leukocyte Negative Negative [facility] esterase, UA [facility] WBC, UA 0-5 0 - 1 /HPF [facility] RBC, UA 0-5 0 - 5 /HPF [facility] Bacteria, UA None seen None seen [facility] Yeast, UA None seen [facility] Yeast with None seen [facility] Specimen Urine Performing Organization Address City/[facility]/Zipcode Phone Number [facility] DEPARTMENT [address] [place] [address] PATHOLOGY AND GENOMIC MEDICINE [address] [place] [address] [facility] * Urine drugs of abuse screen (08/01/2018 11:00 PM PRISON CLASSIFICATION COUNSELOR) Only the most recent of 2 results within the time period is included. Amphetamine Negative [facility] screen, urine [facility] Methamphetamine Negative [facility] screen, urine [facility] Barbiturate Negative [facility] screen, urine [facility] Benzodiazepine Positive (A) [place] screen, urine [facility] Cocaine screen, Negative [place] urine [facility] Methadone Negative [place] screen, urine [facility] Opiates screen, Negative [place] urine [facility] Phencyclidine Negative [place] screen, urine [facility] Cannabinoid Negative [place] screen, urine [facility] Tricyclic Positive (A) [place] screen, urine Comment: [facility] Drug screen [facility] concentration of detectability Amphetamines 1000 ng/mL [...] purposes only. Specimen Urine Performing Organization Address [facility] Phone Number [address] [place] [address] PATHOLOGY AND GENOMIC MEDICINE [address] * Urine culture (08/01/2018 11:00 PM PRISON CLASSIFICATION COUNSELOR) Only the most recent of 5 results within the time period is included. Pathologist [facility] Urine culture SEE COMMENTComment: [facility] Bacteriuria screen negative. [facility] Specimen Urine Performing Organization Address [facility] Phone Number [address] [place] [address] PATHOLOGY AND GENOMIC MEDICINE [address] * Phosphorus level (08/01/2018 10:28 PM PRISON CLASSIFICATION COUNSELOR) Phosphorus 2.7 2.4 - 4.5 mg/dL [facility] Specimen Plasma specimen Performing Organization Address [facility] Phone Number [address] [place] [address] PATHOLOGY AND GENOMIC MEDICINE [address] * Magnesium level (08/01/2018 10:28 PM PRISON CLASSIFICATION COUNSELOR) Only the most recent of 3 results within the time period is included. Magnesium 1.8 1.6 - 2.6 mg/dL [facility] Specimen Plasma specimen Performing Organization Address [facility] Phone Number [address] [place] [address] PATHOLOGY AND GENOMIC MEDICINE [address] * Creatine kinase, total (CPK) (08/01/2018 10:28 PM PRISON CLASSIFICATION COUNSELOR) Only the most recent of 5 results within the time period is included. Creatine kinase 42 39 - 308 U/L [facility] Specimen Plasma specimen Performing Organization Address [facility] Phone Number [address] [place] [address] PATHOLOGY AND GENOMIC MEDICINE [address] * CT Cervical Spine Wo Contrast (08/01/2018 10:27 PM PRISON CLASSIFICATION COUNSELOR) Only the most recent of 4 results [...] acute osseous abnormality of the cervical spine. [facility]-[id number] Procedure Note Hm Interface, Radiology Results Incoming - 08/01/2018 10:40 PM PRISON CLASSIFICATION COUNSELOR EXAMINATION: CT CERVICAL SPINE WO CONTRAST CLINICAL [...] acute osseous abnormality of the cervical spine. [facility]-[id number] Performing Organization Address [facility] Corporationcowa Phone Number [facility] [address] [place] [address] * XR Forearm 2 Vw Right (08/01/2018 10:11 PM PRISON CLASSIFICATION COUNSELOR) Specimen Narrative Performed At EXAMINATION:XR FOREARM 2 VW RIGHT [facility] CLINICAL HISTORY:R forearm pain COMPARISON:None. IMPRESSION: No evidence of acute right forearm fracture or dislocation. Bone mineralization is normal. Forearm soft tissue swelling. [facility]-[id number] Procedure Note Interface, Radiology Results Incoming - 08/01/2018 10:16 PM PRISON CLASSIFICATION COUNSELOR EXAMINATION: XR FOREARM 2 VW RIGHT CLINICAL HISTORY: R forearm pain COMPARISON: None. IMPRESSION: No evidence of acute right forearm fracture or dislocation. Bone mineralization is normal. Forearm soft tissue swelling. [facility]-[id number] Performing Organization Address [facility] Phone Number [employer] [address] [place] [address] * XR Wrist 3+ Vw Right (08/01/2018 10:10 PM PRISON CLASSIFICATION COUNSELOR) Specimen Narrative Performed At EXAMINATION:XR WRIST 3VW RIGHT [facility] CLINICAL HISTORY:right wrist pain COMPARISON:None. IMPRESSION: No evidence of acute right wrist fracture or dislocation. Soft tissues are normal. [facility]-[id number] Procedure Note Interface, Radiology Results Incoming - 08/01/2018 10:16 PM PRISON CLASSIFICATION COUNSELOR EXAMINATION: XR WRIST 3 VW RIGHT CLINICAL HISTORY: right wrist pain COMPARISON: None. IMPRESSION: No evidence of acute right wrist fracture or dislocation. Soft tissues are normal. [facility]-[id number] Performing Organization Address [facility] CorporationcoDIATEM Networks Phone Number [employer] [address] [place] [address] * XR Chest 1 Vw Portable (08/01/2018 10:10 PM PRISON CLASSIFICATION COUNSELOR) Only the most recent of 7 results within the time period is included. Specimen Narrative Performed At EXAMINATION: XR CHEST 1 VW PORTABLE [facility] INDICATION: syncope COMPARISON: 07/18/2018 IMPRESSION: No pulmonary edema or acute airspace disease. No pleural effusion or pneumothorax. Normal cardiomediastinal silhouette for portable technique. [facility]-[id number] Procedure Note Hm Interface, Radiology Results Incoming - 08/01/2018 10:20 PM PRISON CLASSIFICATION COUNSELOR EXAMINATION: XR CHEST 1 VW PORTABLE INDICATION: syncope COMPARISON: 07/18/2018 IMPRESSION: No pulmonary edema or acute airspace disease. No pleural effusion or pneumothorax. Normal cardiomediastinal silhouette for portable technique. [facility]-[id number] Performing Organization Address City/State/Zipcode Phone Number [facility] [address] [place] [address] * CT Abdomen Pelvis Wo Contrast (07/18/2018 7:42 PM PRISON CLASSIFICATION COUNSELOR) Specimen Narrative Performed At EXAMINATION:CT ABDOMEN PELVIS [...] correlate for signs of infection. 2.Hepatic steatosis. [facility]-[id number] Procedure Note Interface, Radiology Results Incoming - 07/18/2018 8:00 PM PRISON CLASSIFICATION COUNSELOR EXAMINATION: CT ABDOMEN PELVIS WO CONTRAST CLINICAL [...] for signs of infection. 2. Hepatic steatosis. [facility]-[id number] Performing Organization Address City/State/Zipcode Phone Number [facility] [address] [place] [address] * POC glucose (07/18/2018 7:15 PM PRISON CLASSIFICATION COUNSELOR) Only the most recent of 32 results within the time period is included. POC glucose 283 (H) 65 - 100 mg/dL [facility] Comment: TAOISM QUINN Meter ID: [id number] [facility] Licensed Embalmer: [facility] Specimen Performing Organization Address City/State/Zipcode Phone Number [facility] DEPARTMENT OF [address] * Partial thromboplastin time, activated (07/14/2018 12:00 PM PRISON CLASSIFICATION COUNSELOR) Only the most recent of 3 results within the time period is included. Pathologist [facility] PTT 31.0 23.0 - 36.0 sec [facility] Comment: TAOISM SAN PTT therapeutic range for [facility] unfractionated heparin is HOSPITAL 61.0-112.0 seconds which corresponds to Anti-Xa 0.3-0.7 U/ml. Note:Change in Panic Value The PTT Panic Value is changing from 110 sec. to 100 sec. due to new instrumentation and reagents. Correlation studies have been performed to validate this result. Specimen Blood Performing Organization Address City/[facility] Corporationcode Phone Number [facility] DEPARTMENT OF [address] * Prothrombin time with INR (07/14/2018 12:00 PM PRISON CLASSIFICATION COUNSELOR) Only the most recent of 5 results within the time period is included. Pathologist [facility] Prothrombin 13.4 11.5 - 14.5 sec [facility] time [facility] INR 1.05 [facility] Comment: ANASTASIYA QUINN For patients on anticoagulant DEREJE therapy, reference ranges HOSPITAL below: Indication: INR Value Treatment of Venous Thrombosis, 2.0-3.0 pulmonary emboli, or prophylaxis of a venous thrombosis, or systemic emboli. High dose, high risk patients 3.0-4.5 with mechanical valves. NOTE:INR values over 3.0 are sometimes associated with gastrointestinal hemorrhage, especially values over 4.0. Specimen Blood Performing Organization Address City/State/Zipcode Phone Number [facility] DEPARTMENT OF [address] * CT Lumbar Spine Wo Contrast (07/13/2018 11:35 PM PRISON CLASSIFICATION COUNSELOR) Only the most recent of 2 results [...] of acute fracture in the lumbar spine. [facility]-[id number] Procedure Note Hm Interface, Radiology Results - 07/13/2018 11:48 PM PRISON CLASSIFICATION COUNSELOR EXAMINATION: CT LUMBAR SPINE WO CONTRAST CLINICAL [...] of acute fracture in the lumbar spine. [id number] Performing Organization Address [facility] Corporationcode Phone Number [employer] [address] [place] [address] * XR Cervical Spine Complete (06/23/2018 2:42 PM PRISON CLASSIFICATION COUNSELOR) Specimen Narrative Performed At EXAMINATION: XR CERVICAL SPINE COMPLETE [facility] CLINICAL HISTORY: Neck paininitial exam COMPARISON:None IMPRESSION: 5 views of the cervical spine are interpreted. Vertebral heights are preserved. No fracture or aggressive bone lesion is seen. No significant spondylosis is seen. No significant spondylotic canal or foraminal stenosis is suggested. The prevertebral soft tissues are unremarkable. [facility]-[id number] Procedure Note Interface, Radiology Results Incoming - 06/23/2018 2:47 PM PRISON CLASSIFICATION COUNSELOR EXAMINATION: XR CERVICAL SPINE COMPLETE CLINICAL HISTORY: Neck pain initial exam COMPARISON: None IMPRESSION: 5 views of the cervical spine are interpreted. Vertebral heights are preserved. No fracture or aggressive bone lesion is seen. No significant spondylosis is seen. No significant spondylotic canal or foraminal stenosis is suggested. The prevertebral soft tissues are unremarkable. [facility]-[id number] Performing Organization Address [facility] Phone Number [employer] [address] [place] [address] * XR Lumbar Spine 2 Or 3 Vw (06/23/2018 2:42 PM PRISON CLASSIFICATION COUNSELOR) Only the most recent of 2 results within the time period is included. Specimen Narrative Performed At EXAMINATION:XR LUMBAR SPINE 2 OR 3 VW [facility] CLINICAL HISTORY:Back [id number] red flagsno prior management COMPARISON:None. IMPRESSION: 3 views of the lumbar spine demonstrate 5 nonrib-bearing lumbar vertebrae with mild disc space narrowing at L4-5 and L5-S1 and moderate disc space narrowing at T11-12 associated with anterior osteophyte formation. There is no definite spondylolysis or spondylolisthesis or compression fracture deformity. [facility]-[id number] Procedure Note Interface, Radiology Results Incoming - 06/23/2018 2:47 PM PRISON CLASSIFICATION COUNSELOR EXAMINATION: XR LUMBAR SPINE 2 OR 3 [...] spondylolysis or spondylolisthesis or compression fracture deformity. [facility]-[id number] Performing Organization Address [facility] Corporation[facility] Phone Number [facility] [address] [place] [address] * XR Chest 2 Vw (06/23/2018 2:41 PM PRISON CLASSIFICATION COUNSELOR) Only the most recent of 5 results within the time period is included. Specimen Narrative Performed At EXAMINATION:XR CHEST 2 VW [facility] CLINICAL HISTORY:Abd traumabluntstable COMPARISON:06/03/2018 IMPRESSION: PA and lateral radiographs of the chest are reviewed. The heart size is normal. Lungs are clear. There is no pleural effusion or pneumothorax. There is no acute osseous abnormality. 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 The heart size is normal. Lungs are clear. There is no pleural effusion or pneumothorax. There is no acute osseous abnormality. [facility]-[id number] Performing Organization Address [facility] Phone Number [facility] [address] [place] [address] * Lipase level (05/20/2018 12:37 AM CDT) Only the most recent of 4 results within the time period is included. Lipase 38 13 - 60 U/L [facility] DEPARTMENT OF PATHOLOGY AND GENOMIC MEDICINE Specimen Plasma specimen Performing Organization Address City/[facility]/Zipcode Phone Number [facility] DEPARTMENT OF [address] [place] [address] PATHOLOGY AND GENOMIC MEDICINE * Lipid panel (05/13/2018 7:28 AM CDT) Only the most recent of 2 results within the time period is included. Cholesterol 168 <200 mg/dL [facility] DEPARTMENT OF PATHOLOGY AND GENOMIC MEDICINE Triglycerides 303 (H) <150 mg/dL [facility] DEPARTMENT OF PATHOLOGY AND GENOMIC MEDICINE HDL cholesterol 34 (L) >40 mg/dL [facility] DEPARTMENT OF PATHOLOGY AND GENOMIC MEDICINE LDL cholesterol 109 (H)Comment: Result <100 mg/dL [facility] obtained by direct LDL DEPARTMENT OF measurement PATHOLOGY AND GENOMIC MEDICINE Lipid panel SeeBelow [facility] interpretation Comment: DEPARTMENT OF Total [...] mg/dL) Specimen Plasma specimen Performing Organization Address City/[facility]/Zipcode Phone Number [facility] [place] [address] [place] [address] PATHOLOGY AND GENOMIC MEDICINE * XR Shoulder 2+ Vw Left (05/02/2018 5:58 PM CDT) Specimen Narrative Performed At EXAMINATION:XR SHOULDER 2VW LEFT HM [facility] CLINICAL HISTORY:Shoulder paininitial exam COMPARISON:None. IMPRESSION: There is no evidence of acute left shoulder fracture or dislocation. [facility]-[id number] Procedure Note Hm Interface, Radiology Results Incoming - 05/02/2018 6:08 PM CDT EXAMINATION: XR SHOULDER 2 VW LEFT CLINICAL HISTORY: Shoulder pain initial exam COMPARISON: None. IMPRESSION: There is no evidence of acute left shoulder fracture or dislocation. [facility]-[id number] Performing Organization Address City/[facility]/Zipcode Phone Number [facility] [address] [place] [address] * T4, free (05/02/2018 5:55 AM CDT) Pathologist [facility] T4, free 0.91 0.90 - 1.70 ng/dL [facility] DEPARTMENT OF PATHOLOGY AND [employer] MEDICINE Specimen Plasma specimen Performing Organization Address [facility] Phone Number [address] [place] [address] PATHOLOGY AND [employer] MEDICINE * Hemoglobin A1c (05/02/2018 5:55 AM CDT) Only the most recent of 2 results within the time period is included. [facility] Hemoglobin A1C 7.2 (H) 4.0 - 6.0 % [facility] DEPARTMENT Comment: OF PATHOLOGY AND GENOMIC MEDICINE Less than 6% - Goal of therapy for Type II Diabetes Less than 7%-Goal of therapy for Type I Diabetes Less than 8%-Accepta ble control for Type I or Type II Diabetes Greater than 8%-Unacceptabl e control; action indicated. ([id number]) Specimen Blood Performing Organization Address [facility] Corporationcode Phone Number [address] [place] [address] PATHOLOGY AND [employer] MEDICINE * Basic metabolic panel (05/02/2018 5:55 AM CDT) Only the most recent of 4 results within the time period is included. Pathologist [facility] Sodium 138 135 - 150 mEq/L [facility] DEPARTMENT OF PATHOLOGY AND GENOMIC MEDICINE Potassium 4.2 3.5 - 5.0 mEq/L [facility] DEPARTMENT OF PATHOLOGY AND GENOMIC MEDICINE Chloride 100 98 - 112 mEq/L [facility] DEPARTMENT OF PATHOLOGY AND GENOMIC MEDICINE CO2 26 24 - 31 mmol/L [facility] DEPARTMENT OF PATHOLOGY AND GENOMIC MEDICINE Anion gap 12@ANIO 7 - 15 mEq/L [facility] DEPARTMENT OF PATHOLOGY AND GENOMIC MEDICINE BUN 11 7 - 18 mg/dL [facility] DEPARTMENT OF PATHOLOGY AND GENOMIC MEDICINE Creatinine 1.10 0.70 - 1.20 mg/dL [facility] DEPARTMENT OF PATHOLOGY AND GENOMIC MEDICINE Glucose 135 (H) 65 - 100 mg/dL [facility] DEPARTMENT OF PATHOLOGY AND GENOMIC MEDICINE Calcium 9.3 8.3 - 10.2 mg/dL [facility] DEPARTMENT OF PATHOLOGY AND GENOMIC MEDICINE Specimen Plasma specimen Performing Organization Address City/State/Zipcode Phone Number [facility] DEPARTMENT [address] [place] [address] PATHOLOGY AND GENOMIC MEDICINE * XR Knee 4+ Vw Left (05/02/2018 12:19 AM CDT) Specimen Narrative Performed At XR KNEE 4VW LEFT [facility]ICAL IND[facility]:left knee injury COMPARISON:None. IMPRESSION: There is no acute fracture or dislocation. There is no knee joint effusion. There is mild osteoarthrosis of the knee. Osseous mineralization is normal. [facility]-[id number] Procedure Note Interface, Radiology Results Incoming - 05/02/2018 12:27 AM CDT XR KNEE 4 VW LEFT CLINICAL INDICATION: left knee injury COMPARISON: None. IMPRESSION: There is no acute fracture or dislocation. There is no knee joint effusion. There is mild osteoarthrosis of the knee. Osseous mineralization is normal. [facility]-[id number] Performing Organization Address City/[facility]/Zipcode Phone Number [facility] [address] [place] [address] * Alcohol level, blood (04/29/2018 9:40 PM CDT) Alcohol None Detected mg/dL [facility] Comment: DEPARTMENT OF Normal PATHOLOGY AND None GENOMIC Detected MEDICINE Legal Intoxication in [place]80 mg/dL (0.08%) - Whole Blood Toxic Concentration 200 mg/dL (0.2%) Potentially Fatal3 50 - 500 mg/dL (0.35 - 0.5%) Alcohol percent None Detected % [facility] DEPARTMENT OF PATHOLOGY AND GENOMIC MEDICINE Specimen Plasma specimen Performing Organization Address City/State/Zipcode Phone Number [facility] [place] [address] [place] [address] PATHOLOGY AND GENOMIC MEDICINE * Valproic acid level (04/28/2018 1:45 PM CDT) Only the most recent of 6 results within the time period is included. Valproic acid <3.1 (L) 50.0 - 100.0 ug/mL [facility] DEPARTMENT Comment: OF PATHOLOGY Therapeutic Range: AND GENOMIC 50 - 100 ug/mL MEDICINE Specimen Blood Performing Organization Address City/[facility]/Zipcode Phone Number [facility] DEPARTMENT OF [address] [place] [address] PATHOLOGY AND GENOMIC MEDICINE * Keppra (Levetiracetam) level (04/27/2018 2:20 PM CDT) Levetiracetam <2 (L) 12 - 46 ug/mL [facility] Comment: INTERPRETIVE INFORMATION: Keppra (Levetiracetam) Therapeutic Range:12-46 ug/mL Toxic: Not well Established Pharmacokinetics of levetiracetam are affected by renal function. Adverse effects may include somnolence, weakness, headache and vomiting. This levetiracetam (Keppra) immunoassay uses the [employer] reagents, which has known cross-reactivity with the drug brivaracetam (Briviact) and may report inaccurate results. Patients transitioning from levetiracetam to brivaracetam or those who are using both medications should not monitor drug concentrations with the [employer] assay. These patients should be monitored using a validated chromatographic methodology that distinguishes between drugs to determine drug concentrations. Performed by [facility], [address] [place] [address] [email or web address], Kevin Herrera MD - Lab. Director Specimen Serum Performing Organization Address City/[facility]/Zipcode Phone Number [facility] [address] [place] [address] * CRITICAL CARE (04/27/2018 4:14 AM CDT) [...] Narrative Performed At CT ANGIOGRAM PE CHEST [facility] CLINICAL INDICATION: r o PE COMPARISON:Chest radiograph [...] confluent airspace consolidation. 3. Hepatic steatosis. Splenomegaly. [facility]-[id number] Procedure Note Interface, Radiology Results Incoming - [...] confluent airspace consolidation. 3. Hepatic steatosis. Splenomegaly. [facility]-[id number] Performing Organization Address City/State/Zipcode Phone Number [facility] [address] [place] [address] * D-dimer (04/27/2018 12:44 AM CDT) D-dimer <0.27 0.00 - 0.40 ug/mL [facility] DEPARTMENT Comment: FEU OF PATHOLOGY Units are [...] Blood Performing Organization Address City/State/Zipcode Phone Number [facility] OF [address] [place] [address] PATHOLOGY AND GENOMIC MEDICINE * Lactic acid level, SEPSIS - Now and repeat 2x every 3 hours (04/22/2018 1:08 AM CDT) Only the most recent of 2 results within the time period is included. Lactic acid 1.7 0.5 - 2.2 mmol/L [facility] DEPARTMENT OF PATHOLOGY AND GENOMIC MEDICINE Specimen Blood Performing Organization Address City/State/Zipcode Phone Number [facility] [address] [place] [address] PATHOLOGY AND GENOMIC MEDICINE * EEG (routine) [...] the neck. Motion mildly degrades the exam. [facility]-[id number] Procedure Note Hm Interface, Radiology Results Incoming [...] the neck. Motion mildly degrades the exam. [id number] Performing Organization Address City/[facility]/Zipcode Phone Number [facility] [address] [place] [address] * MRA Head Wo Contrast (04/13/2018 6:44 PM CDT) Specimen Narrative Performed At EXAMINATION:MRA HEAD WO CONTRAST [facility] CLINICAL HISTORY:possible sz COMPARISON:None. TECHNIQUE: Head MRA using 3D tqwd-py-iggeoy technique with multi-planar MIP and 3D reconstruction. FINDINGS: There is normal flow-related signal with no significant stenosis or occlusion along bilateral intracranial ICAs, ACAs, and MCAs. The anterior communicating artery complex is unremarkable. There is normal flow-related signal with no significant stenosis or occlusion along bilateral vertebral arteries, basilar artery, cerebellar arteries, and healthcare manager. The right vertebral artery is dominant. The posterior communicating arteries are not well visualized. There is no evidence of cerebral aneurysm in the proximal [place] within limits of MRA technique. IMPRESSION: Unremarkable head MRA with no significant stenosis or occlusion in the proximal [place]. [id number] Procedure Note [facility], Radiology Results Incoming - 04/13/2018 7:01 PM CDT EXAMINATION: MRA HEAD WO CONTRAST CLINICAL HISTORY: possible sz COMPARISON: None. TECHNIQUE: Head MRA using 3D kapg-[id number]-wmmexq technique with multi-planar MIP and 3D reconstruction. FINDINGS: There is normal flow-related signal with no significant stenosis or occlusion along bilateral intracranial ICAs, ACAs, and MCAs. The anterior communicating artery complex is unremarkable. There is normal flow-related signal with no significant stenosis or occlusion along bilateral vertebral arteries, basilar artery, cerebellar arteries, and healthcare manager. The right vertebral artery is dominant. The posterior communicating arteries are not well visualized. There is no evidence of cerebral aneurysm in the proximal [place] within limits of MRA technique. IMPRESSION: Unremarkable head MRA with no significant stenosis or occlusion in the proximal [place]. [id number] Performing Organization Address [facility] Corporationcode Phone Number [facility] [address] [place] [address] * MRI Brain Wo Contrast (04/13/2018 6:41 PM CDT) Specimen Narrative Performed At [facility] EXAMINATION:MRI BRAIN WO CONTRAST CLINICAL HISTORY:SZ COMPARISON: [...] preserved. IMPRESSION: Unremarkable MRI of the brain. [facility]-[id number] Procedure Note Interface, Radiology Results Incoming - [...] preserved. IMPRESSION: Unremarkable MRI of the brain. [facility]-[id number] Performing Organization Address [facility] Corporation[facility] Phone Number [facility] [address] [place] [address] * Urinalysis, automated with microscopy (04/13/2018 12:09 AM CDT) Color, UA Straw [facility] DEPARTMENT OF PATHOLOGY AND GENOMIC MEDICINE Appearance, UA Clear [facility] DEPARTMENT OF PATHOLOGY AND GENOMIC MEDICINE Specific 1.007 1.001 - 1.035 [facility] DEPARTMENT gravity, OF PATHOLOGY AND GENOMIC MEDICINE pH, UA 5.0 5.0 - 8.5 [facility] DEPARTMENT OF PATHOLOGY AND GENOMIC MEDICINE Protein, UA Negative Negative [facility] DEPARTMENT OF PATHOLOGY AND GENOMIC MEDICINE Glucose, UA 3+ (A) Negative [facility] DEPARTMENT OF PATHOLOGY AND GENOMIC MEDICINE Ketones, UA Negative Negative [facility] DEPARTMENT OF PATHOLOGY AND GENOMIC MEDICINE Bilirubin, UA Negative Negative [facility] DEPARTMENT OF PATHOLOGY AND GENOMIC MEDICINE Blood, UA Small (A) Negative [facility] DEPARTMENT OF PATHOLOGY AND GENOMIC MEDICINE Nitrite, UA Negative Negative [facility] DEPARTMENT OF PATHOLOGY AND GENOMIC MEDICINE Urobilinogen, Negative <2.0 [facility] DEPARTMENT UA OF PATHOLOGY AND GENOMIC MEDICINE Leukocyte Negative Negative [facility] DEPARTMENT esterase, UA OF PATHOLOGY AND GENOMIC MEDICINE WBC, UA <1 0 - 1 /HPF [facility] DEPARTMENT OF PATHOLOGY AND GENOMIC MEDICINE RBC, UA 1 0 - 5 /HPF [facility] DEPARTMENT OF PATHOLOGY AND GENOMIC MEDICINE Bacteria, UA None seen None seen [facility] DEPARTMENT OF PATHOLOGY AND GENOMIC MEDICINE Yeast, UA None seen [facility] DEPARTMENT OF PATHOLOGY AND GENOMIC MEDICINE Yeast with None seen [facility] DEPARTMENT pseudohyphae, OF PATHOLOGY UA AND GENOMIC MEDICINE Specimen Urine Performing Organization Address City/[facility] Corporationcode Phone Number [address] [place] [address] PATHOLOGY AND [facility] * Estimated GFR (04/12/2018 10:45 PM CDT) Only the most recent of 3 results within the time period is included. Pathologist [facility] GFR Non Af Amer 80 mL/min/1.73 m2 [facility] DEPARTMENT OF PATHOLOGY AND GENOMIC MEDICINE GFR Af Amer >90 mL/min/1.73 m2 [facility] DEPARTMENT Comment: OF PATHOLOGY Chronic kidney disease: [...] specimen Performing Organization Address City/State/Zipcode Phone Number [address] [place] [phone] PATHOLOGY [facility] * Beta hydroxybutyrate (03/29/2018 4:16 PM CDT) Beta 0.27 0.02 - 0.27 mmol/L [facility] DEPARTMENT hydroxybutyrate OF PATHOLOGY AND GENOMIC MEDICINE Specimen Blood Performing Organization Address City/State/Zipcode Phone Number [address] [place] [address] PATHOLOGY AND GENOMIC MEDICINE after 03/29/2018 Insurance Type Payer Benefit Subscriber ID Effective Phone Address Plan / Dates Group Exchange BCBS EXCHANGE BLUE xxxxxxxxxxxx 2018-P ADVANTAGE resent HMO EXCH Advance Directives For more information, please contact: [phone] 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
--- OUTSIDE RECORDS SUMMARY | 2019-03-30 20:51 | XMS REPORT | Continuity of Care Document ---
Author Author [employer] Organization [employer] Address Unknown Phone Unavailable Care Team Providers Care Tentering Machine Off Bearer Name Role Phone [employer] Information [employer] Unavailable Unavailable Problems Problem Status Onset Date Classification Date Reported Comments Source Wrist pain Active 08/25/2018 Diagnosis 09/11/2018 [facility] Dermatitis due to drug reaction Active 07/23/2018 Diagnosis 09/11/2018 [facility] Acute right otitis media Inactive 07/22/2018 Problem 09/11/2018 [facility] Pain in right shoulder Inactive 07/19/2018 Problem 09/11/2018 [facility] Chronic back pain Active 06/23/2018 Diagnosis [...] [facility] 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 [facility], [facility] Inactive 03/26/2018 Problem 09/11/2018 [facility] Diabetes mellitus, type II Inactive 02/18/2018 Problem 09/11/2018 [facility] CHEST PAIN Active 11/30/2016 [facility] Chest pain Active Problem 11/16/2018 [facility] Seizure-like activity Active Problem 11/16/2018 [facility] Hypertension Resolved Problem 12/04/2016 [facility] PTSD (Confirmed) Resolved Problem 12/04/2016 [facility] Medications Medication Details Route Status Patient Instructions Ordering Provider Order Date Source Aspirin 81 Mg Tab.chew, 81 Mg Oral Daily Active 09/20/2018 [facility] Doxazosin Mesylate 1 Mg Tablet, 1 Mg Oral Twice A Day Active 09/20/2018 [facility] Glipizide 10 Mg Tablet, 10 Mg Oral Twice A Day Active 09/20/2018 [facility] Lisinopril 10 Mg Tablet, 10 Mg Oral Daily Active 09/20/2018 [facility] Metoprolol Tartrate 50 Mg Tablet, 50 Mg Oral Twice A Day Active 09/20/2018 [facility] Sitagliptin Phosphate (Januvia) 50 Mg Tablet, 50 Mg Oral Daily Active 09/20/2018 [facility] Tiagabine Hcl (Gabitril) 4 Mg Tablet, 4 Mg Oral Twice A Day Active 09/20/2018 [facility] Trazodone Hcl 300 Mg Tablet, 300 Mg Oral Daily Active 09/20/2018 [facility] LANTUS 100 UNIT/ML SUBCUTANEOUS SOLUTION 42 units [...] Doxazosin Mesylate 1 Mg Tablet, Active 04/15/2018 [facility] Glipizide 10 Mg Tablet, 10 Mg Oral Twice A Day Active 04/15/2018 [facility] Linezolid (Zyvox) 600 Mg Tablet, Active 04/15/2018 [facility] Metformin Hcl 1,000 Mg Tablet, 1 Tab Oral Twice A Day Active 04/15/2018 [facility] Metoprolol Tartrate 50 Mg Tablet, 25 Mg Oral Daily Active 04/15/2018 [facility] Doxazosin Mesylate 1 Mg Tablet, Active 04/15/2018 [facility] Glipizide 10 Mg Tablet, 10 Mg Oral Twice A Day Active 04/15/2018 [facility] Linezolid (Zyvox) 600 Mg Tablet, Active 04/15/2018 [facility] Metformin Hcl 1,000 Mg Tablet, 1 Tab Oral Twice A Day Active 04/15/2018 [facility] Metoprolol Tartrate 50 Mg Tablet, 25 Mg Oral Daily Active 04/15/2018 [facility] JANUVIA 100 MG ORAL TABLET 1 tab [...] 12/31/16 9:00:00 CDT No Longer Active 12/02/2016 [facility] atorvastatin 80 mg oral tablet 80 mg=1 tab, PO, Bedtime, # 30 tab, 0 Refill(s) Active 12/01/2016 [facility] Nitroglycerin 0.4 MG Sublingual Tablet 0.4 mg, 1 tab, Route: SL, Drug form: TAB, PRN, Dosing Weight 112.6, kg, PRN Chest Pain, Start date: 12/01/16 16:53:00 CDT, Duration: 30 day, Stop date: 12/31/16 16:52:00 CDTNotes: (Same as:Nitroquick, Nitrostat) "Do Not Crush" Sublingual tablet Inactive 12/01/2016 [facility] Tylenol 650 mg, 2 tab, Route: PO, Drug form: TAB, Q6H, Dosing Weight 112.6, kg, PRN Pain Score 1-3, Start date: 12/01/16 16:53:00 CDT, Duration: 30 day, Stop date: 12/31/16 16:52:00 CDTNotes: Do not exceed 4 gm/day. (Same as: Tylenol) Inactive 12/01/2016 [facility] pneumococcal capsular polysaccharide type 1 vaccine / pneumococcal capsular polysaccharide type 10A vaccine / pneumococcal capsular polysaccharide type 11A vaccine / pneumococcal capsular polysaccharide type 12F vaccine / pneumococcal capsular polysacchar 0.5 mL, Route: IM, Drug Form: INJ, Daily, Start date: 12/01/16 9:00:00 CDT, Duration: 1 doses or times, Stop date: 12/01/16 9:00:00 CDTNotes: (Same as: Pneumovax 23) Refrigerate Inactive 12/01/2016 [facility] Plavix 75 mg, 1 tab, Route: PO, Drug form: TAB, Daily, Dosing Weight 112.6, kg, Start date: 12/01/16 9:00:00 CDT, Duration: 30 day, Stop date: 12/30/16 9:00:00 CDTNotes: (Same As: Plavix) Inactive 12/01/2016 [facility] metoprolol extended release 25 mg, 1 tab, Route: PO, Drug form: ERTAB, Daily, Start date: 12/01/16 9:00:00 CDT, Duration: 30 day, Stop date: 12/30/16 9:00:00 CDTNotes: (Same as: Toprol XL) Do Not Crush Inactive 12/01/2016 [facility] Lisinopril 10 mg, 1 tab, Route: PO, Drug form: TAB, Daily, Dosing Weight 112.6, kg, Start date: 12/01/16 9:00:00 CDT, Duration: 30 day, Stop date: 12/30/16 9:00:00 CDTNotes: (Same as: Prinivil, Zestril) Inactive 12/01/2016 [facility] Aspirin 81 MG Chewable Tablet 81 mg, 1 tab, Route: PO, Drug form: CHEWTAB, Daily, Dosing Weight 112.6, kg, Start date: 12/01/16 9:00:00 CDT, Duration: 30 day, Stop date: 12/30/16 9:00:00 CDTNotes: Take with food. Inactive 12/01/2016 [facility] atorvastatin 80 mg, 1 tab, Route: PO, Drug form: TAB, Bedtime, Dosing Weight 112.6, kg, Start date: 11/30/16 21:00:00 CDT, Duration: 30 day, Stop date: 12/29/16 21:00:00 CDTNotes: Same as Lipitor No Longer Active 12/01/2016 [facility] Nortriptyline 75 mg, 3 cap, Route: PO, Drug form: CAP, Daily, Dosing Weight 112.6, kg, Start date: 11/30/16 21:00:00 CDT, Duration: 30 day, Stop date: 12/30/16 9:00:00 CDTNotes: (Same as:Pamelor, Aventyl) No Longer Active 12/01/2016 [facility] Tylenol 650 mg, 20.3 mL, Route: PO, Drug form: LIQ, ONCE, Dosing Weight 112.6, kg, Start date: 11/30/16 19:04:00 CDT, Stop date: 11/30/16 19:04:00 CDTNotes: Max [id number]/day (4 gm/day). (Same as: Tylenol) Inactive 12/01/2016 [facility] Lexapro 10 mg, 1 tab, Route: PO, Drug form: TAB, BID, Dosing Weight 112.6, kg, Start date: 11/30/16 17:00:00 CDT, Duration: 30 day, Stop date: 12/30/16 9:00:00 CDTNotes: (Same as: Lexapro) No Longer Active 11/30/2016 [facility] Nitroglycerin 100 mg, 250 mL, Rate: Titrate, Start Dose: 0.25 microgram/kg/min, Titration: 0.2 microgram/kg/min every 5 minutes, Goal(s): Chest pain and SBP between 100 - 150 mmHg, Max Dose: 3 microgram/kg/min, Route: IV, Dosing Weight 112.6 kg, Total Volume: 250,...Notes: (Same as:Tridil) Final conc=0.4 mg/ml. Premix bottle. No Longer Active 11/30/2016 [facility] Morphine 4 mg, 1 mL, Route: IVP, Drug form: INJ, Q6H, Dosing Weight 112.6, kg, PRN Pain Score 7-10, Start date: 11/30/16 15:10:00 CDT, Duration: 30 day, Stop date: 12/30/16 15:09:00 CDTNotes: (Same as:MORPhine Sulfate) No Longer Active 11/30/2016 [facility] Plavix 300 mg, 1 tab, Route: PO, Drug form: TAB, ONCE, Dosing Weight 112.6, kg, Start date: 11/30/16 14:31:00 CDT, Duration: 1 doses or times, Stop date: 11/30/16 14:31:00 CDTNotes: ( Same as: Plavix) Inactive 11/30/2016 [facility] Aspirin 325 mg, Route: PO, ONCE, Dosing Weight 112.6, kg, Start date: 11/30/16 14:22:00 CDT, Stop date: 11/30/16 14:22:00 CDT Inactive 11/30/2016 [facility] Plavix 300 mg, Route: PO, Drug form: TAB, ONCE, Dosing Weight 112.6, kg, Start date: 11/30/16 14:21:00 CDT, Duration: 1 doses or times, Stop date: 11/30/16 14:21:00 CDT Inactive 11/30/2016 [facility] heparin additive 25,000 unit [12 unit/kg/hr] + Premix Diluent Dextrose 5% 500 mL 500 mL, Rate: 21.98 ml/hr, Infuse over: 22.7 hr, Route: IV, Dosing Weight 91.6 kg, Total Volume: 500 mL, Start date: 11/30/16 13:59:00 CDT, Duration: 30 day, Stop date: 12/30/16 13:58:00 CDT No Longer Active 11/30/2016 [facility] Heparin 60 unit/kg Bolus (Heparin Dosing Weight) Route: IVP, PRN, 4,000 unit, 4 mL, Drug form: INJ, PRN, Heparin Protocol, Start date: 11/30/16 13:59:00 CDT Stop date: 12/30/16 13:58:00 CDT, 30 day No Longer Active 11/30/2016 [facility] Heparin 30 unit/kg Bolus (Heparin Dosing Weight) Route: IVP, PRN, 2,700 unit, 2.7 mL, Drug form: INJ, PRN, Heparin Protocol, Start date: 11/30/16 13:59:00 CDT Stop date: 12/30/16 13:58:00 CDT, 30 day No Longer Active 11/30/2016 [facility] Heparin - one time bolus for ACS 4,000 unit, 4 mL, Route: IVP, Drug form: INJ, ONCE, Dosing Weight 112.6, kg, Priority: STAT, Start date: 11/30/16 13:59:00 CDT, Stop date: 11/30/16 13:59:00 CDT Inactive 11/30/2016 [facility] Aspirin 81 MG Chewable Tablet 81 mg=1 tab, PO, Daily, tab, 0 Refill(s) Active 11/30/2016 [facility] Escitalopram 10 MG Oral Tablet [Lexapro] 10 mg=1 tab, PO, BID, 0 Refill(s) Active 11/30/2016 [facility] nortriptyline 75 mg oral capsule 75 mg=1 cap, PO, Daily, # 90 cap, 0 Refill(s) Active 11/30/2016 [facility] lisinopril 10 mg oral tablet 10 mg=1 tab, PO, Daily, # 30 tab, 0 Refill(s) Active 11/30/2016 [facility] metoprolol extended release 25 mg, PO, Daily, 0 Refill(s) Active 11/30/2016 [facility] Acetaminophen With Codeine (Acetaminophen-Cod #4 Tablet) 1 Each Tablet Three Times A Day Active [facility] Acetaminophen/Codeine Phosphate (Tylenol # 3*) 1 Ea Tab Every 6 Hours Active [facility] Atorvastatin Calcium 40 Mg Tablet Bedtime Active [facility] Clopidogrel Bisulfate (Clopidogrel) 75 Mg Tablet Daily Active [facility] Gabapentin 300 Mg Capsule Three Times A Day Active am, noon and bedtime [facility] Hydrocodone Bit/Acetaminophen (Hydrocodon-Acetaminophn 10-325) 1 Each Tablet Every 6 Hours Active [facility] Lisinopril 10 Mg Tablet Daily Active [facility] Metformin Hcl 500 Mg Tablet Twice A Day Active [facility] Metoprolol Tartrate (Lopressor) 25 Mg Tab Bedtime Active Metoprolol ER 25mg PO QHS [facility] Nortriptyline Hcl 50 Mg Capsule Bedtime Active [facility] Paroxetine Hcl 30 Mg Tablet Before Breakfast Active [facility] Prazosin Hcl 2 Mg Capsule Bedtime Active [facility] Trazodone Hcl 100 Mg Tablet Bedtime Active [facility] Atorvastatin Calcium 80 Mg Tablet Daily Active [facility] Clopidogrel Bisulfate (Clopidogrel) 75 Mg Tablet Daily Active [facility] Diazepam 10 Mg Tablet Twice A Day as needed for Anxiety Active [facility] Doxepin Hcl 25 Mg Capsule Bedtime Active [facility] Eloquis Twice A Day Active [facility] Gabapentin 300 Mg Capsule Three Times A Day Active am, noon and bedtime [facility] Insulin Aspart (Novolog) 100 Unit/1 Ml Cartridge Before Meals Active [facility] Insulin Glargine (Lantus 3ML Pen) 100 Units/1 Ml Inj Twice A Day Active [facility] Levetiracetam (Keppra) 500 Mg Tablet Three Times A Day Active [facility] Lisinopril 2.5 Mg Tablet Daily Active [facility] Metformin Hcl 500 Mg Tablet Twice A Day Active [facility] Metoprolol Succinate 25 Mg Tab.er.24h Daily Active [facility] Nitroglycerin 0.4 Mg Tab.subl Every 5 Minutes as needed for Chest Pain Active X3 DOSES [facility] Nortriptyline Hcl 25 Mg Capsule Bedtime Active [facility] Paroxetine Hcl 30 Mg Tablet Before Breakfast Active [facility] Vybrid Daily Active [facility] Aspirin 81 Mg Tab.chew Daily Active [facility] Atorvastatin Calcium 80 Mg Tablet Daily Active [facility] Diazepam 10 Mg Tablet Daily as needed for Anxiety Active [facility] Doxazosin Mesylate 1 Mg Tablet Twice A Day Active [facility] Doxepin Hcl 25 Mg Capsule Bedtime Active [facility] Glipizide 10 Mg Tablet Twice A Day Active [facility] Metoprolol Succinate 25 Mg Tab.er.24h Daily Active [facility] Metoprolol Tartrate 50 Mg Tablet Twice A Day Active [facility] Nitroglycerin 0.4 Mg Tab.subl Every 5 Minutes as needed for Chest Pain Active X3 DOSES [facility] Nortriptyline Hcl 25 Mg Capsule Bedtime Active [facility] Sitagliptin Phosphate (Januvia) 50 Mg Tablet Daily Active [facility] Tiagabine Hcl (Gabitril) 4 Mg Tablet Twice A Day Active [facility] Trazodone Hcl 300 Mg Tablet Daily Active [facility] DIAZEPAM TAKE 1/2 TO 1 TABLET BY [...] Penicillin Severe Allergy to Substance Active 11/16/2018 [facility] Methylprednisolone Unknown Allergy to Substance Active 11/16/2018 [facility] Ketorolac Unknown Allergy to Substance Active 11/16/2018 [facility] Hydrocodone Mild Allergy to Substance Active 11/16/2018 [facility] Tramadol Unknown Allergy to Substance Active 11/16/2018 [facility] penicillins Assertion Drug allergy Active [facility] Toradol Assertion Drug allergy Active [facility] Immunizations Immunization Date Given Site Status Last Updated Comments Source pneumococcal 23-valent vaccine 12/01/2016 Not Given [facility] Results Order Name Results Value Reference Range Date Interpretation Comments Source Blood leukocytes automated count (number/volume) 8.48 4.8 - 10.8 09/20/2018 [facility] Blood erythrocytes automated count (number/volume) 4.83 4.3 - 5.7 09/20/2018 [facility] Blood hemoglobin measurement (moles/volume) 14.2 14.0 - 18.0 09/20/2018 [facility] Automated blood hematocrit (volume fraction) 40.6 38.2 - 49.6 09/20/2018 [facility] Automated erythrocyte mean corpuscular volume 84.1 81 - 99 09/20/2018 [facility] Automated erythrocyte mean corpuscular hemoglobin (mass per erythrocyte) 29.4 28 - 32 09/20/2018 [facility] Automated erythrocyte mean corpuscular hemoglobin concentration measurement (mass/volume) 35.0 31 - 35 09/20/2018 [facility] RDW BldCo-Rto 14.4 11.7 - 14.4 09/20/2018 [facility] Automated blood platelet count (count/volume) 244 140 - 360 09/20/2018 [facility] Automated blood segmented neutrophil count as percentage of total leukocytes 75.2 38.7 - 80.0 09/20/2018 [facility] Automated blood lymphocyte count as percentage ot total leukocytes 17.7 18.0 - 39.1 09/20/2018 [facility] Automated blood monocyte count as percentage of total leukocytes 5.7 4.4 - 11.3 09/20/2018 [facility] Automated blood eosinophil count as percentage of total leukocytes 0.6 0.0 - 6.0 09/20/2018 [facility] Automated blood basophil count as percentage of total leukocytes 0.6 0.0 - 1.0 09/20/2018 [facility] IM GRANULOCYTES % 0.2 0.0 - 1.0 09/20/2018 [facility] Automated blood neutrophil count 6.4 2.1 - 6.9 09/20/2018 [facility] Blood lymphocytes count (number/volume) 1.5 1.0 - 3.2 09/20/2018 [facility] Blood monocytes automated count (number/volume) 0.5 0.2 - 0.8 09/20/2018 [facility] Automated blood eosinophil count 0.1 0.0 - 0.4 09/20/2018 [facility] Automated blood basophil count (count/volume) 0.1 0.0 - 0.1 09/20/2018 [facility] Absolute Immature Granulocyte (auto 0.02 0 - 0.1 09/20/2018 [facility] Prothrombin time (PT) in platelet poor plasma by coagulation assay 13.2 11.9 - 14.5 09/20/2018 [facility] INR in Platelet poor plasma by Coagulation assay 0.92 09/20/2018 [facility] Activated partial thromboplastin time (aPTT) in platelet poor plasma bycoagulation assay 30.7 23.8 - 35.5 09/20/2018 [facility] Serum or plasma sodium measurement (moles/volume) 132 136 - 145 09/20/2018 [facility] Serum or plasma potassium measurement (moles/volume) 4.6 3.5 - 5.1 09/20/2018 [facility] Serum or plasma chloride measurement (moles/volume) 98 98 - 107 09/20/2018 [facility] Serum or plasma carbon dioxide, total measurement (moles/volume) 20 22 - 29 09/20/2018 [facility] Serum or plasma anion gap 18.6 8 - 16 09/20/2018 [facility] Serum or plasma urea nitrogen measurement (mass/volume) 14 7 - 26 09/20/2018 [facility] Serum or plasma creatinine measurement (mass/volume) 1.48 0.72 - 1.25 09/20/2018 [facility] Serum or plasma urea nitrogen/creatinine mass ratio 9 6 - 25 09/20/2018 [facility] Estimated glomerular filtration rate (GFR) determination 51 60 09/20/2018 [facility] Glucose measurement 399 74 - 118 09/20/2018 [facility] Serum or plasma calcium measurement (mass/volume) 9.7 8.4 - 10.2 09/20/2018 [facility] Serum or plasma total bilirubin measurement (mass/volume) 0.5 0.2 - 1.2 09/20/2018 [facility] Aspartate Amino Transf (AST/SGOT) 22 5 - 34 09/20/2018 [facility] Serum or plasma alanine aminotransferase measurement (enzymatic activity/volume) 25 0 - 55 09/20/2018 [facility] Serum or plasma protein measurement (mass/volume) 7.1 6.5 - 8.1 09/20/2018 [facility] Serum or plasma albumin measurement (mass/volume) 3.9 3.5 - 5.0 09/20/2018 [facility] Plasma globulin measurement (mass/volume) 3.2 2.3 - 3.5 09/20/2018 [facility] Serum or plasma albumin/globulin mass ratio 1.2 0.8 - 2.0 09/20/2018 [facility] Serum or plasma alkaline phosphatase measurement (enzymatic activity/volume) 70 40 - 150 09/20/2018 [facility] BNP Bld-mCnc < 10.0 0 - 100 09/20/2018 [facility] Serum or plasma creatine kinase measurement (enzymatic activity/volume) 38 30 - 200 09/20/2018 [facility] Serum or plasma creatine kinase MB measurement (mass/volume) 0.60 0 - 5.0 09/20/2018 [facility] Troponin I measurement by highly sensitive enzyme immunoassay 0.004 0 - 0.300 09/20/2018 [facility] Urine color determination YELLOW YELLOW 09/20/2018 [facility] Urine clarity CLEAR CLEAR 09/20/2018 [facility] Specific gravity of Urine by Test strip 1.010 1.010 - 1.025 09/20/2018 [facility] Urine pH measurement by automated test strip 6 5 - 7 09/20/2018 [facility] Urine leukocyte esterase detection by dipstick NEGATIVE NEGATIVE 09/20/2018 [facility] Urine nitrite detection NEGATIVE NEGATIVE 09/20/2018 [facility] Urine protein measurement by test strip (mass/volume) NEGATIVE NEGATIVE 09/20/2018 [facility] Urine glucose detection 3+ NEGATIVE 09/20/2018 [facility] Urine ketones detection by automated test strip NEGATIVE NEGATIVE 09/20/2018 [facility] Urine urobilinogen measurement by test strip (mass/volume) 0.2 0.2 - 1 09/20/2018 [facility] Urine total bilirubin measurement (mass/volume) NEGATIVE NEGATIVE 09/20/2018 [facility] Urine erythrocytes detection NEGATIVE NEGATIVE 09/20/2018 [facility] Automated urine sediment leukocyte count by microscopy (number/high power field) NONE 0 - 5 09/20/2018 [facility] Erythrocytes detection in urine sediment by light microscopy NONE 0 - 5 09/20/2018 [facility] Bacteria detection in urine sediment by light microscopy NONE NONE 09/20/2018 [facility] Epithelial cells detection in urine sediment by light microscopy NONE NONE 09/20/2018 [facility] blood glucose, fasting 177 09/09/2018 [facility] blood glucose, random 202 08/25/2018 [facility] blood glucose, random 202 08/25/2018 [facility] benzodiazepine screen, urine Positive Xhihyp=100 07/23/2018 [facility] amphetamine screen, urine Negative Wavxnz=[id number] 07/23/2018 [facility] cannabinoid screen, urine Negative Cutoff=50 07/23/2018 [facility] phencyclidine screen, urine Negative Cutoff=25 07/23/2018 [facility] cocaine, urine Negative Jmlizt=820 07/23/2018 [facility] cocaine, urine Negative Bwflof=911 07/23/2018 [facility] opiates, urine, semiquantitative See Final Results Iimvmw=605 07/23/2018 [facility] barbiturates screen, urine Negative Lnynzz=330 07/23/2018 [facility] opiates, urine, semiquantitative See Final Results Fxvyfq=175 07/23/2018 [facility] blood glucose, random 233 07/19/2018 [facility] hemoglobin A1C, blood, as % of total hemoglobin 9.3 07/14/2018 [facility] hemoglobin A1C, blood, as % of total hemoglobin 9.3 07/14/2018 [facility] blood glucose, random 244 06/15/2018 [facility] Serum or plasma magnesium measurement (mass/volume) 2.2 1.3 - 2.1 05/27/2018 [facility] Serum or plasma creatine kinase MB measurement (mass/volume) Serum or plasma creatine kinase MB measurement (mass/volume) 0.40 0 - 5.0 05/06/2018 [facility] Serum or plasma creatine kinase measurement (enzymatic activity/volume) Serum or plasma creatine kinase measurement (enzymatic activity/volume) 58 30 - 200 05/06/2018 [facility] Troponin I measurement by highly sensitive enzyme immunoassay Troponin I measurement by highly sensitive enzyme immunoassay 0.003 0 - 0.300 05/06/2018 [facility] Automated blood basophil count (count/volume) Automated blood basophil count (count/volume) 0.0 0.0 - 0.1 05/06/2018 [facility] Automated blood basophil count as percentage of total leukocytes Automated blood basophil count as percentage of total leukocytes 0.3 0.0 - 1.0 05/06/2018 [facility] Automated blood eosinophil count Automated blood eosinophil count 0.1 0.0 - 0.4 05/06/2018 [facility] Automated blood eosinophil count as percentage of total leukocytes Automated blood eosinophil count as percentage of total leukocytes 0.7 0.0 - 6.0 05/06/2018 [facility] Automated blood hematocrit (volume fraction) Automated blood hematocrit (volume fraction) 33.9 38.2 - 49.6 05/06/2018 [facility] Automated blood lymphocyte count as percentage ot total leukocytes Automated blood lymphocyte count as percentage ot total leukocytes 20.4 18.0 - 39.1 05/06/2018 [facility] Automated blood monocyte count as percentage of total leukocytes Automated blood monocyte count as percentage of total leukocytes 6.0 4.4 - 11.3 05/06/2018 [facility] Automated blood neutrophil count Automated blood neutrophil count 5.0 2.1 - 6.9 05/06/2018 [facility] Automated blood platelet count (count/volume) Automated blood platelet count (count/volume) 154 140 - 360 05/06/2018 [facility] Automated blood segmented neutrophil count as percentage of total leukocytes Automated blood segmented neutrophil count as percentage of total leukocytes 72.2 38.7 - 80.0 05/06/2018 [facility] Automated erythrocyte mean corpuscular hemoglobin (mass per erythrocyte) Automated erythrocyte mean corpuscular hemoglobin (mass per erythrocyte) 32.1 28 - 32 05/06/2018 [facility] Automated erythrocyte mean corpuscular hemoglobin concentration measurement (mass/volume) Automated erythrocyte mean corpuscular hemoglobin concentration measurement (mass/volume) 34.5 31 - 35 05/06/2018 [facility] Automated erythrocyte mean corpuscular volume Automated erythrocyte mean corpuscular volume 92.9 81 - 99 05/06/2018 [facility] Blood erythrocytes automated count (number/volume) Blood erythrocytes automated count (number/volume) 3.65 4.3 - 5.7 05/06/2018 [facility] Blood hemoglobin measurement (moles/volume) Blood hemoglobin measurement (moles/volume) 11.7 14.0 - 18.0 05/06/2018 [facility] Blood leukocytes automated count (number/volume) Blood leukocytes automated count (number/volume) 6.86 4.8 - 10.8 05/06/2018 [facility] Blood lymphocytes count (number/volume) Blood lymphocytes count (number/volume) 1.4 1.0 - 3.2 05/06/2018 [facility] Blood monocytes automated count (number/volume) Blood monocytes automated count (number/volume) 0.4 0.2 - 0.8 05/06/2018 [facility] Estimated glomerular filtration rate (GFR) determination Estimated glomerular filtration rate (GFR) determination >60 60 05/06/2018 [facility] Glucose measurement Glucose measurement 251 74 - 118 05/06/2018 [facility] Plasma globulin measurement (mass/volume) Plasma globulin measurement (mass/volume) 3.0 2.3 - 3.5 05/06/2018 [facility] Serum or plasma alanine aminotransferase measurement (enzymatic activity/volume) Serum or plasma alanine aminotransferase measurement (enzymatic activity/volume) 36 0 - 55 05/06/2018 [facility] Serum or plasma albumin measurement (mass/volume) Serum or plasma albumin measurement (mass/volume) 3.6 3.5 - 5.0 05/06/2018 [facility] Serum or plasma albumin/globulin mass ratio Serum or plasma albumin/globulin mass ratio 1.2 0.8 - 2.0 05/06/2018 [facility] Serum or plasma alkaline phosphatase measurement (enzymatic activity/volume) Serum or plasma alkaline phosphatase measurement (enzymatic activity/volume) 72 40 - 150 05/06/2018 [facility] Serum or plasma anion gap Serum or plasma anion gap 18.0 8 - 16 05/06/2018 [facility] Serum or plasma calcium measurement (mass/volume) Serum or plasma calcium measurement (mass/volume) 9.5 8.4 - 10.2 05/06/2018 [facility] Serum or plasma carbon dioxide, total measurement (moles/volume) Serum or plasma carbon dioxide, total measurement (moles/volume) 21 22 - 29 05/06/2018 [facility] Serum or plasma chloride measurement (moles/volume) Serum or plasma chloride measurement (moles/volume) 100 98 - 107 05/06/2018 [facility] Serum or plasma creatinine measurement (mass/volume) Serum or plasma creatinine measurement (mass/volume) 1.16 0.72 - 1.25 05/06/2018 [facility] Serum or plasma potassium measurement (moles/volume) Serum or plasma potassium measurement (moles/volume) 4.0 3.5 - 5.1 05/06/2018 [facility] Serum or plasma protein measurement (mass/volume) Serum or plasma protein measurement (mass/volume) 6.6 6.5 - 8.1 05/06/2018 [facility] Serum or plasma sodium measurement (moles/volume) Serum or plasma sodium measurement (moles/volume) 135 136 - 145 05/06/2018 [facility] Serum or plasma total bilirubin measurement (mass/volume) Serum or plasma total bilirubin measurement (mass/volume) 0.6 0.2 - 1.2 05/06/2018 [facility] Serum or plasma urea nitrogen measurement (mass/volume) Serum or plasma urea nitrogen measurement (mass/volume) 10 7 - 26 05/06/2018 [facility] Serum or plasma urea nitrogen/creatinine mass ratio Serum or plasma urea nitrogen/creatinine mass ratio 9 6 - 25 05/06/2018 [facility] Red Cell Distribution Width 13.2 11.7 - 14.4 05/06/2018 [facility] IM GRANULOCYTES % 0.4 0.0 - 1.0 05/06/2018 [facility] Absolute Immature Granulocyte (auto 0.03 0 - 0.1 05/06/2018 [facility] Aspartate Amino Transf (AST/SGOT) 27 5 - 34 05/06/2018 [facility] Mucus detection in urine sediment by light microscopy FEW RARE 05/06/2018 [facility] Automated urine sediment leukocyte count by microscopy (number/high power field) Automated urine sediment leukocyte count by microscopy (number/high power field) <5 0 - 5 05/06/2018 [facility] Bacteria detection in urine sediment by light microscopy Bacteria detection in urine sediment by light microscopy NONE NONE 05/06/2018 [facility] Epithelial cells detection in urine sediment by light microscopy Epithelial cells detection in urine sediment by light microscopy NONE NONE 05/06/2018 [facility] Erythrocytes detection in urine sediment by light microscopy Erythrocytes detection in urine sediment by light microscopy <5 0 - 5 05/06/2018 [facility] Mucus detection in urine sediment by light microscopy Mucus detection in urine sediment by light microscopy FEW RARE 05/06/2018 [facility] Specific gravity of Urine by Test strip Specific gravity of Urine by Test strip 1.005 1.010 - 1.025 05/06/2018 [facility] Urine clarity Urine clarity CLEAR CLEAR 05/06/2018 [facility] Urine color determination Urine color determination YELLOW YELLOW 05/06/2018 [facility] Urine erythrocytes detection Urine erythrocytes detection NEGATIVE NEGATIVE 05/06/2018 [facility] Urine glucose detection Urine glucose detection 3+ NEGATIVE 05/06/2018 [facility] Urine ketones detection by automated test strip Urine ketones detection by automated test strip NEGATIVE NEGATIVE 05/06/2018 [facility] Urine leukocyte esterase detection by dipstick Urine leukocyte esterase detection by dipstick NEGATIVE NEGATIVE 05/06/2018 [facility] Urine nitrite detection Urine nitrite detection NEGATIVE NEGATIVE 05/06/2018 [facility] Urine pH measurement by automated test strip Urine pH measurement by automated test strip 6 5 - 7 05/06/2018 [facility] Urine protein measurement by test strip (mass/volume) Urine protein measurement by test strip (mass/volume) NEGATIVE NEGATIVE 05/06/2018 [facility] Urine total bilirubin measurement (mass/volume) Urine total bilirubin measurement (mass/volume) NEGATIVE NEGATIVE 05/06/2018 [facility] Urine urobilinogen measurement by test strip (mass/volume) Urine urobilinogen measurement by test strip (mass/volume) 0.2 0.2 - 1 05/06/2018 [facility] Capillary blood glucose measurement by glucometer (mass/volume) 226 70 - 120 04/16/2018 [facility] Capillary blood glucose measurement by glucometer (mass/volume) Capillary blood glucose measurement by glucometer (mass/volume) 226 70 - 120 04/16/2018 [facility] Capillary blood glucose measurement by glucometer (mass/volume) Capillary blood glucose measurement by glucometer (mass/volume) 226 70 - 120 04/16/2018 [facility] Hemoglobin A1c Percent 7.0 4.0 - 7.0 04/16/2018 [facility] Phosphorus measurement 4.7 2.3 - 4.7 04/16/2018 [facility] Serum or plasma thyrotropin measurement by detection limit <=0.005 miu/l (units/volume) 0.423 0.350 - 4.940 04/16/2018 [facility] Automated blood basophil count (count/volume) Automated blood basophil count (count/volume) 0.0 0.0 - 0.1 04/16/2018 [facility] Automated blood basophil count as percentage of total leukocytes Automated blood basophil count as percentage of total leukocytes 0.5 0.0 - 1.0 04/16/2018 [facility] Automated blood eosinophil count Automated blood eosinophil count 0.1 0.0 - 0.4 04/16/2018 [facility] Automated blood eosinophil count as percentage of total leukocytes Automated blood eosinophil count as percentage of total leukocytes 1.5 0.0 - 6.0 04/16/2018 [facility] Automated blood hematocrit (volume fraction) Automated blood hematocrit (volume fraction) 37.5 38.2 - 49.6 04/16/2018 [facility] Automated blood lymphocyte count as percentage ot total leukocytes Automated blood lymphocyte count as percentage ot total leukocytes 33.5 18.0 - 39.1 04/16/2018 [facility] Automated blood monocyte count as percentage of total leukocytes Automated blood monocyte count as percentage of total leukocytes 6.9 4.4 - 11.3 04/16/2018 [facility] Automated blood neutrophil count Automated blood neutrophil count 3.4 2.1 - 6.9 04/16/2018 [facility] Automated blood platelet count (count/volume) Automated blood platelet count (count/volume) 182 140 - 360 04/16/2018 [facility] Automated blood segmented neutrophil count as percentage of total leukocytes Automated blood segmented neutrophil count as percentage of total leukocytes 57.3 38.7 - 80.0 04/16/2018 [facility] Automated erythrocyte mean corpuscular hemoglobin (mass per erythrocyte) Automated erythrocyte mean corpuscular hemoglobin (mass per erythrocyte) 32.1 28 - 32 04/16/2018 [facility] Automated erythrocyte mean corpuscular hemoglobin concentration measurement (mass/volume) Automated erythrocyte mean corpuscular hemoglobin concentration measurement (mass/volume) 34.1 31 - 35 04/16/2018 [facility] Automated erythrocyte mean corpuscular volume Automated erythrocyte mean corpuscular volume 94.0 81 - 99 04/16/2018 [facility] Blood erythrocytes automated count (number/volume) Blood erythrocytes automated count (number/volume) 3.99 4.3 - 5.7 04/16/2018 [facility] Blood hemoglobin measurement (moles/volume) Blood hemoglobin measurement (moles/volume) 12.8 14.0 - 18.0 04/16/2018 [facility] Blood leukocytes automated count (number/volume) Blood leukocytes automated count (number/volume) 5.94 4.8 - 10.8 04/16/2018 [facility] Blood lymphocytes count (number/volume) Blood lymphocytes count (number/volume) 2.0 1.0 - 3.2 04/16/2018 [facility] Blood monocytes automated count (number/volume) Blood monocytes automated count (number/volume) 0.4 0.2 - 0.8 04/16/2018 [facility] Estimated glomerular filtration rate (GFR) determination Estimated glomerular filtration rate (GFR) determination >60 60 04/16/2018 [facility] Glucose measurement Glucose measurement 205 74 - 118 04/16/2018 [facility] Phosphorus measurement Phosphorus measurement 4.7 2.3 - 4.7 04/16/2018 [facility] Phosphorus measurement Phosphorus measurement 4.7 2.3 - 4.7 04/16/2018 [facility] Plasma globulin measurement (mass/volume) Plasma globulin measurement (mass/volume) 3.1 2.3 - 3.5 04/16/2018 [facility] Serum or plasma alanine aminotransferase measurement (enzymatic activity/volume) Serum or plasma alanine aminotransferase measurement (enzymatic activity/volume) 42 0 - 55 04/16/2018 [facility] Serum or plasma albumin measurement (mass/volume) Serum or plasma albumin measurement (mass/volume) 3.5 3.5 - 5.0 04/16/2018 [facility] Serum or plasma albumin/globulin mass ratio Serum or plasma albumin/globulin mass ratio 1.1 0.8 - 2.0 04/16/2018 [facility] Serum or plasma alkaline phosphatase measurement (enzymatic activity/volume) Serum or plasma alkaline phosphatase measurement (enzymatic activity/volume) 52 40 - 150 04/16/2018 [facility] Serum or plasma anion gap Serum or plasma anion gap 15.4 8 - 16 04/16/2018 [facility] Serum or plasma calcium measurement (mass/volume) Serum or plasma calcium measurement (mass/volume) 9.7 8.4 - 10.2 04/16/2018 [facility] Serum or plasma carbon dioxide, total measurement (moles/volume) Serum or plasma carbon dioxide, total measurement (moles/volume) 25 22 - 29 04/16/2018 [facility] Serum or plasma chloride measurement (moles/volume) Serum or plasma chloride measurement (moles/volume) 101 98 - 107 04/16/2018 [facility] Serum or plasma creatinine measurement (mass/volume) Serum or plasma creatinine measurement (mass/volume) 1.08 0.72 - 1.25 04/16/2018 [facility] Serum or plasma magnesium measurement (mass/volume) Serum or plasma magnesium measurement (mass/volume) 2.2 1.3 - 2.1 04/16/2018 [facility] Serum or plasma magnesium measurement (mass/volume) Serum or plasma magnesium measurement (mass/volume) 2.2 1.3 - 2.1 04/16/2018 [facility] Serum or plasma potassium measurement (moles/volume) Serum or plasma potassium measurement (moles/volume) 4.4 3.5 - 5.1 04/16/2018 [facility] Serum or plasma protein measurement (mass/volume) Serum or plasma protein measurement (mass/volume) 6.6 6.5 - 8.1 04/16/2018 [facility] Serum or plasma sodium measurement (moles/volume) Serum or plasma sodium measurement (moles/volume) 137 136 - 145 04/16/2018 [facility] Serum or plasma thyrotropin measurement by detection limit <=0.005 miu/l (units/volume) Serum or plasma thyrotropin measurement by detection limit <=0.005 miu/l (units/volume) 0.423 0.350 - 4.940 04/16/2018 [facility] Serum or plasma thyrotropin measurement by detection limit <=0.005 miu/l (units/volume) Serum or plasma thyrotropin measurement by detection limit <=0.005 miu/l (units/volume) 0.423 0.350 - 4.940 04/16/2018 [facility] Serum or plasma total bilirubin measurement (mass/volume) Serum or plasma total bilirubin measurement (mass/volume) 0.4 0.2 - 1.2 04/16/2018 [facility] Serum or plasma urea nitrogen measurement (mass/volume) Serum or plasma urea nitrogen measurement (mass/volume) 13 7 - 26 04/16/2018 [facility] Serum or plasma urea nitrogen/creatinine mass ratio Serum or plasma urea nitrogen/creatinine mass ratio 12 6 - 25 04/16/2018 [facility] Red Cell Distribution Width 13.5 11.7 - 14.4 04/16/2018 [facility] IM GRANULOCYTES % 0.3 0.0 - 1.0 04/16/2018 [facility] Absolute Immature Granulocyte (auto 0.02 0 - 0.1 04/16/2018 [facility] Hemoglobin A1c Percent 7.0 4.0 - 7.0 04/16/2018 [facility] Aspartate Amino Transf (AST/SGOT) 22 5 - 34 04/16/2018 [facility] sodium, serum 134 134 - 144 04/16/2018 [...] measurement (mass/volume) 0.40 0 - 5.0 04/15/2018 [facility] Serum or plasma creatine kinase measurement (enzymatic activity/volume) Serum or plasma creatine kinase measurement (enzymatic activity/volume) 35 30 - 200 04/15/2018 [facility] Troponin I measurement by highly sensitive enzyme immunoassay Troponin I measurement by highly sensitive enzyme immunoassay <0.001 0 - 0.300 04/15/2018 [facility] Urine opiates screening test POSITIVE NEGATIVE 04/14/2018 [facility] Barbiturates screen, urine NEGATIVE NEGATIVE 04/14/2018 [facility] Urine phencyclidine detection by screening method NEGATIVE NEGATIVE 04/14/2018 [facility] Urine amphetamines detection by screen method > 1000 ng/mL NEGATIVE NEGATIVE 04/14/2018 [facility] Urine Methamphetamines Screen NEGATIVE NEGATIVE 04/14/2018 [facility] Urine benzodiazepines detection by screening method POSITIVE NEGATIVE 04/14/2018 [facility] Urine cocaine measurement (mass/volume) NEGATIVE NEGATIVE 04/14/2018 [facility] Urine cannabinoids detection by screening method NEGATIVE NEGATIVE 04/14/2018 [facility] Automated urine sediment leukocyte count by microscopy (number/high power field) Automated urine sediment leukocyte count by microscopy (number/high power field) NONE 0 - 5 04/14/2018 [facility] Bacteria detection in urine sediment by light microscopy Bacteria detection in urine sediment by light microscopy NONE NONE 04/14/2018 [facility] Barbiturates screen, urine Barbiturates screen, urine NEGATIVE NEGATIVE 04/14/2018 [facility] Barbiturates screen, urine Barbiturates screen, urine NEGATIVE NEGATIVE 04/14/2018 [facility] Epithelial cells detection in urine sediment by light microscopy Epithelial cells detection in urine sediment by light microscopy NONE NONE 04/14/2018 [facility] Erythrocytes detection in urine sediment by light microscopy Erythrocytes detection in urine sediment by light microscopy NONE 0 - 5 04/14/2018 [facility] Specific gravity of Urine by Test strip Specific gravity of Urine by Test strip 1.005 1.010 - 1.025 04/14/2018 [facility] Urine amphetamines detection by screen method > 1000 ng/mL Urine amphetamines detection by screen method > 1000 ng/mL NEGATIVE NEGATIVE 04/14/2018 [facility] Urine amphetamines detection by screen method > 1000 ng/mL Urine amphetamines detection by screen method > 1000 ng/mL NEGATIVE NEGATIVE 04/14/2018 [facility] Urine benzodiazepines detection by screening method Urine benzodiazepines detection by screening method POSITIVE NEGATIVE 04/14/2018 [facility] Urine benzodiazepines detection by screening method Urine benzodiazepines detection by screening method POSITIVE NEGATIVE 04/14/2018 [facility] Urine cannabinoids detection by screening method Urine cannabinoids detection by screening method NEGATIVE NEGATIVE 04/14/2018 [facility] Urine cannabinoids detection by screening method Urine cannabinoids detection by screening method NEGATIVE NEGATIVE 04/14/2018 [facility] Urine clarity Urine clarity CLEAR CLEAR 04/14/2018 [facility] Urine cocaine measurement (mass/volume) Urine cocaine measurement (mass/volume) NEGATIVE NEGATIVE 04/14/2018 [facility] Urine cocaine measurement (mass/volume) Urine cocaine measurement (mass/volume) NEGATIVE NEGATIVE 04/14/2018 [facility] Urine color determination Urine color determination YELLOW YELLOW 04/14/2018 [facility] Urine erythrocytes detection Urine erythrocytes detection NEGATIVE NEGATIVE 04/14/2018 [facility] Urine glucose detection Urine glucose detection 3+ NEGATIVE 04/14/2018 [facility] Urine ketones detection by automated test strip Urine ketones detection by automated test strip NEGATIVE NEGATIVE 04/14/2018 [facility] Urine leukocyte esterase detection by dipstick Urine leukocyte esterase detection by dipstick NEGATIVE NEGATIVE 04/14/2018 [facility] Urine nitrite detection Urine nitrite detection NEGATIVE NEGATIVE 04/14/2018 [facility] Urine opiates screening test Urine opiates screening test POSITIVE NEGATIVE 04/14/2018 [facility] Urine opiates screening test Urine opiates screening test POSITIVE NEGATIVE 04/14/2018 [facility] Urine pH measurement by automated test strip Urine pH measurement by automated test strip 5 5 - 7 04/14/2018 [facility] Urine phencyclidine detection by screening method Urine phencyclidine detection by screening method NEGATIVE NEGATIVE 04/14/2018 [facility] Urine phencyclidine detection by screening method Urine phencyclidine detection by screening method NEGATIVE NEGATIVE 04/14/2018 [facility] Urine protein measurement by test strip (mass/volume) Urine protein measurement by test strip (mass/volume) NEGATIVE NEGATIVE 04/14/2018 [facility] Urine total bilirubin measurement (mass/volume) Urine total bilirubin measurement (mass/volume) NEGATIVE NEGATIVE 04/14/2018 [facility] Urine urobilinogen measurement by test strip (mass/volume) Urine urobilinogen measurement by test strip (mass/volume) 0.2 0.2 - 1 04/14/2018 [facility] Urine Methamphetamines Screen NEGATIVE NEGATIVE 04/14/2018 [facility] Lactic Acid Level 47.2 4.5 - 19.8 04/14/2018 [facility] Serum or plasma valproate measurement (mass/volume) 2 50 - 100 04/14/2018 [facility] Serum or plasma valproate measurement (mass/volume) Serum or plasma valproate measurement (mass/volume) 2 50 - 100 04/14/2018 [facility] Serum or plasma valproate measurement (mass/volume) Serum or plasma valproate measurement (mass/volume) 2 50 - 100 04/14/2018 [facility] Lactic Acid Level 47.2 4.5 - 19.8 04/14/2018 [facility] B-Type Natriuretic Peptide 10.2 0 - 100 04/14/2018 [facility] 12 LEAD EKG 12 LEAD EKG FOR [facility] Test Date:2017-05-24 Pat Name: DAVID SAMUELS Department: : Gender: MTechnician: [id number] :1970 Requested By: Order Number:Reading MD: Nader Conrad M.D. Measurements IntervalsAxis Rate: 61 P:-10 [place]: 180QRS:38 QRSD: 115T:30 QT: 404 QTc:409 Interpretive Statements SINUS RHYTHM INCOMPLETE RIGHT BUNDLE BRANCH BLOCK Electronically Signed On 05-25-17 05:56:28 CDT by Nader Conrad M.D. 05/25/2017 [facility] TROPONIN I POC Troponin POC 0.00 0 - 0.08 05/25/2017 [facility] POC CO2 POC 29 21 - 32 05/25/2017 [facility] POC Chloride POC 100 98 - 107 05/25/2017 [facility] POC Potassium POC 5.0 3.5 - 5.1 05/25/2017 [facility] POC Sodium POC 137 136 - 145 05/25/2017 [facility] POC Glucose POC 138 74 - 106 05/25/2017 [facility] POC Urea Nitrogen POC 20 7 - 18 05/25/2017 [facility] POC Creatinine POC 1.4 0.6 - 1.3 05/25/2017 [facility] POC Calcium Ionized POC 1.22 1.15 - 1.29 05/25/2017 [facility] POC Hemoglobin POC 15.6 14 - 18 05/25/2017 [facility] POC Hematocrit POC 46.0 40 - 54 05/25/2017 [facility] POC GFR, Estimated 55 mL/min/1.73 m2 05/25/2017 [facility] POC GFR, Estim, Afr-Am >60 mL/min/1.73 m2 05/25/2017 [facility] POC Lab Interpretation Abnormal 05/25/2017 [facility] POC CO2 POC 29 21 - 32 05/24/2017 [facility] POC Chloride POC 100 98 - 107 05/24/2017 [facility] POC Potassium POC 5.0 3.5 - 5.1 05/24/2017 [facility] POC Sodium POC 137 136 - 145 05/24/2017 [facility] POC Glucose POC 138 74 - 106 05/24/[address] [facility] POC Urea Nitrogen POC 20 7 - 18 05/24/[address] [facility] POC Creatinine POC 1.4 0.6 - 1.3 05/24/[address] [facility] POC Calcium Ionized POC 1.22 1.15 - 1.29 05/24/2017 [facility] POC Hemoglobin POC 15.6 14 - 18 05/24/2017 [facility] POC Hematocrit POC 46.0 40 - 54 05/24/2017 [facility] POC GFR, Estimated 55 mL/min/1.73 m2 05/24/2017 [facility] POC GFR, Estim, Afr-Am >60 mL/min/1.73 m2 05/24/2017 [facility] POC Lab Interpretation Abnormal 05/24/2017 [facility] TROPONIN I POC Troponin POC 0.00 0 - 0.08 05/24/2017 [facility] 12 LEAD EKG 12 LEAD EKG FOR [facility] Test Date:2017-05-24 Pat Name: DAVID SAMUELS Department: : Gender: MTechnician: [id number] :1970 Requested By: Order Number:Reading MD: Nader Conrad M.D. Measurements IntervalsAxis Rate: 61 P:-10 [place]: 180QRS:38 QRSD: 115T:30 QT: 404 QTc:409 Interpretive Statements SINUS RHYTHM INCOMPLETE RIGHT BUNDLE BRANCH BLOCK Electronically Signed On 05-25-17 05:56:28 CDT by Nader Conrad M.D. 05/24/2017 [facility] CHEM PANEL Magnesium Lvl 2.2 1.8 - 2.4 12/01/2016 [facility] CHEM PANEL eGFR 79 12/01/2016 Result Comment: [...] should be multiplied by the estimated BMI. [facility] CHEM PANEL Calcium Lvl 8.9 8.5 - 10.5 12/01/2016 [facility] CHEM PANEL CO2 25 24 - 32 12/01/2016 [facility] CHEM PANEL Chloride Lvl 104 95 - 109 12/01/2016 [facility] CHEM PANEL Sodium Lvl 139 135 - 145 12/01/2016 [facility] CHEM PANEL Potassium Lvl 4.1 3.5 - 5.1 12/01/2016 [facility] CHEM PANEL Glucose Lvl 85 70 - 99 12/01/2016 [facility] CHEM PANEL Creatinine Lvl 1.12 0.50 - 1.40 12/01/2016 [facility] CHEM PANEL BUN 15 7 - 22 12/01/2016 [facility] CHEM PANEL AGAP 14.1 10.0 - 20.0 12/01/2016 [facility] HEMATOLOGY Eosinophils 0.6 0.0 - 4.0 12/01/2016 [facility] HEMATOLOGY Basophils 0.6 0.0 - 1.0 12/01/2016 [facility] HEMATOLOGY Monocytes # 0.6 0.0 - 0.8 12/01/2016 [facility] HEMATOLOGY Eosinophils # 0.1 0.0 - 0.5 12/01/2016 [facility] HEMATOLOGY Segs-Bands # 5.9 1.5 - 8.1 12/01/2016 [facility] HEMATOLOGY Lymphocytes # 2.4 1.0 - 5.5 12/01/2016 [facility] HEMATOLOGY Basophils # 0.1 0.0 - 0.2 12/01/2016 [facility] HEMATOLOGY Lymphocytes 27.0 20.0 - 40.0 12/01/2016 [facility] HEMATOLOGY Monocytes 6.3 2.0 - 12.0 12/01/2016 [facility] HEMATOLOGY Segs 65.5 45.0 - 75.0 12/01/2016 [facility] HEMATOLOGY MPV 6.9 7.4 - 10.4 12/01/2016 [facility] HEMATOLOGY Platelet 209 133 - 450 12/01/2016 [facility] HEMATOLOGY MCHC 34.1 32.0 - 36.0 12/01/2016 [facility] HEMATOLOGY RDW 13.7 11.5 - 14.5 12/01/2016 [facility] HEMATOLOGY WBC 9.0 3.7 - 10.4 12/01/2016 [facility] HEMATOLOGY MCH 31.5 27.0 - 31.0 12/01/2016 [facility] HEMATOLOGY MCV 92.5 80.0 - 94.0 12/01/2016 [facility] HEMATOLOGY Hct 43.3 42.0 - 54.0 12/01/2016 [facility] HEMATOLOGY Hgb 14.8 14.0 - 18.0 12/01/2016 [facility] HEMATOLOGY RBC 4.68 4.70 - 6.10 12/01/2016 [facility] HEMATOLOGY PTT 45.0 22.9 - 35.8 12/01/2016 [facility] HEMATOLOGY INR 1.02 0.85 - 1.17 12/01/2016 [facility] HEMATOLOGY PT 13.6 12.0 - 14.7 12/01/2016 [facility] CARDIAC ENZYMES Troponin-I <0.02 0.00 - 0.40 12/01/2016 [facility] CARDIAC ENZYMES Troponin-T <0.010 0.000 - 0.100 12/01/2016 [facility] CARDIAC ENZYMES Total CK 51 12 - 191 12/01/2016 [facility] HEMATOLOGY PTT 46.4 22.9 - 35.8 12/01/2016 [facility] CARDIAC ENZYMES Total CK 47 12 - 191 11/30/2016 [facility] CARDIAC ENZYMES Troponin-I <0.02 0.00 - 0.40 11/30/2016 [facility] CARDIAC ENZYMES Troponin-T <0.010 0.000 - 0.100 11/30/2016 [facility] DRUG SCREEN U Amph Scr Negative *NA* (11/30/16 3:30 PM) Negative 11/30/2016 [facility] DRUG SCREEN U Noemi Scr Negative *NA* (11/30/16 3:30 PM) Negative 11/30/2016 [facility] DRUG SCREEN U Cannab Scr Negative *NA* (11/30/16 3:30 PM) Negative 11/30/2016 [facility] DRUG SCREEN U Phencyc Scr Negative *NA* (11/30/16 3:30 PM) Negative 11/30/2016 [facility] DRUG SCREEN U Opiate Scr Positive *ABN* (11/30/16 3:30 PM) Negative 11/30/2016 [facility] DRUG SCREEN U Benzodia Scr Negative *NA* (11/30/16 3:30 PM) Negative 11/30/2016 [facility] DRUG SCREEN U Cocaine Scr Negative *NA* (11/30/16 3:30 PM) Negative 11/30/2016 [facility] DRUG SCREEN UDS Note See Note (11/30/16 3:30 PM) 11/30/2016 [facility] HEMATOLOGY PT 13.3 12.0 - 14.7 11/30/2016 [facility] HEMATOLOGY INR 0.99 0.85 - 1.17 11/30/2016 [facility] HEMATOLOGY PTT 31.1 22.9 - 35.8 11/30/2016 [facility] CARDIAC ENZYMES Troponin-I <0.02 0.00 - 0.40 11/30/2016 [facility] CARDIAC ENZYMES Total CK 48 12 - 191 11/30/2016 [facility] CARDIAC ENZYMES Troponin-T <0.010 0.000 - 0.100 11/30/2016 [facility] CHEM PANEL eGFR 73 11/30/2016 Result Comment: [...] should be multiplied by the estimated BMI. [facility] CHEM PANEL CO2 29 24 - 32 11/30/2016 [facility] CHEM PANEL Calcium Lvl 9.3 8.5 - 10.5 11/30/2016 [facility] CHEM PANEL BUN 15 7 - 22 11/30/2016 [facility] CHEM PANEL Creatinine Lvl 1.19 0.50 - 1.40 11/30/2016 [facility] CHEM PANEL Glucose Lvl 100 70 - 99 11/30/2016 [facility] CHEM PANEL Chloride Lvl 102 95 - 109 11/30/2016 [facility] CHEM PANEL Potassium Lvl 4.5 3.5 - 5.1 11/30/2016 [facility] CHEM PANEL Sodium Lvl 140 135 - 145 11/30/2016 [facility] CHEM PANEL AGAP 13.5 10.0 - 20.0 11/30/2016 [facility] HEMATOLOGY RBC 4.73 4.70 - 6.10 11/30/2016 [facility] HEMATOLOGY Hgb 14.9 14.0 - 18.0 11/30/2016 [facility] HEMATOLOGY WBC 9.0 3.7 - 10.4 11/30/2016 [facility] HEMATOLOGY MPV 6.9 7.4 - 10.4 11/30/2016 [facility] HEMATOLOGY MCV 92.0 80.0 - 94.0 11/30/2016 [facility] HEMATOLOGY Hct 43.5 42.0 - 54.0 11/30/2016 [facility] HEMATOLOGY MCH 31.6 27.0 - 31.0 11/30/2016 [facility] HEMATOLOGY Platelet 213 133 - 450 11/30/2016 [facility] HEMATOLOGY MCHC 34.3 32.0 - 36.0 11/30/2016 [facility] HEMATOLOGY RDW 13.7 11.5 - 14.5 11/30/2016 [facility] HEMATOLOGY Lymphocytes # 2.0 1.0 - 5.5 11/30/2016 [facility] HEMATOLOGY Monocytes # 0.5 0.0 - 0.8 11/30/2016 [facility] HEMATOLOGY Basophils 0.7 0.0 - 1.0 11/30/2016 [facility] HEMATOLOGY Segs-Bands # 6.4 1.5 - 8.1 11/30/2016 [facility] HEMATOLOGY Basophils # 0.1 0.0 - 0.2 11/30/2016 [facility] HEMATOLOGY Segs 71.4 45.0 - 75.0 11/30/2016 [facility] HEMATOLOGY Lymphocytes 21.8 20.0 - 40.0 11/30/2016 [facility] HEMATOLOGY Monocytes 5.8 2.0 - 12.0 11/30/2016 [facility] HEMATOLOGY Eosinophils 0.3 0.0 - 4.0 11/30/2016 [facility] Pathology Reports No Data Provided for This [...] 02/18/2018 [facility] Systolic (mm Hg) 126 05/25/2017 [facility] Diastolic (mm Hg) 82 05/25/2017 [facility] Heart Rate 66 05/25/2017 [facility] Temperature Oral (F) 36.94 Muna 05/25/2017 [facility] Respitory Rate 18 05/25/2017 [facility] Temperature Oral (F) 98.2 F 12/01/2016 [facility] Respitory Rate 18 12/01/2016 [facility] Systolic (mm Hg) 129 12/01/2016 [facility] Diastolic (mm Hg) 75 12/01/2016 [facility] Systolic (mm Hg) 129 12/01/2016 [facility] Diastolic (mm Hg) 88 12/01/2016 [facility] Respitory Rate 20 12/01/2016 [facility] Respitory Rate 18 12/01/2016 [facility] Systolic (mm Hg) 99 12/01/2016 [facility] Diastolic (mm Hg) 67 12/01/2016 [facility] Temperature Oral (F) 97.9 F 12/01/2016 [facility] Temperature Oral (F) 97.1 F 12/01/2016 [facility] Height 182.88 cm 11/30/2016 [facility] BMI Calculated 33.67 11/30/2016 [facility] Weight 112.6 11/30/2016 [facility] Encounters Location Location Details Encounter Type Encounter Number Reason For Visit Attending Provider ADM Date DC Date Status Source [facility] Inpatient [id number] Parveenerick Johnson 11/30/2016 12/01/2016 [facility] Emergency Center BT Emergency [id number] 05/25/2017 05/25/2017 [facility] New Patient Detailed - [id number] Pepito Boyd [facility]18[facility] Problem - 48660 [id number] Paula Clay MD 03/27/2018 [facility] Est Patient Exp Problem - 79549 [id number] Oscar Nielson MD (res) 04/09/2018 [facility] Discharged Inpatient (obs) [id number] ERIC BRO MD 04/15/2018 04/16/2018 [facility] Est Patient Detailed - 80792 [id number] Paula Clay MD 04/18/2018 [facility] Est Patient Detailed - 67437 [id number] Lele Suárez MD [facility]/23/[facility] [id number] MARGE GREER MD 05/06/2018 05/06/2018 [facility] Departed Emergency Room [id number] BEATRIS DELONG MD 05/27/2018 05/27/2018 [facility] Est Patient Exp Problem - 26888 [id number] Lele Suárez MD 05/28/2018 [facility] Est Patient Exp Problem - 99026 [id number] Juliann Worley MD (res) 06/15/2018 [facility] Est Patient Exp Problem - 07949 [id number] Lele Suárez MD 06/25/2018 [facility] Est Patient Exp Problem - 91182 [id number] Juliann Worley MD (res) 07/14/2018 [facility] Est Patient Exp Problem - 08804 [id number] Bandar Garcia MD R3 07/19/2018 [facility] Est Patient Exp Problem - 60685 [id number] Delicia Meraz MD (res) 07/22/[address] [facility] Est Patient Exp Problem - 75029 [id number] Lele Suárez MD 07/23/2018 [facility] Est Patient Exp Problem - 22813 [id number] Joe Mcmullen MD 07/23/[address] [facility] Est Patient Exp Problem - 37947 [id number] Lele Suárez MD 08/25/2018 [facility] Est Patient Detailed - 61510 [id number] Snehal Gutierrez MD 09/09/2018 [facility] Est Patient Exp Problem - 18717 [id number] Snehal Gutierrez MD 09/09/2018 [facility] [id number] BEATRIS DELONG MD 09/20/2018 09/20/2018 [facility] Departed Emergency Room [id number] LAKSHMI ZIMMER MD 10/04/2018 10/04/2018 [facility] Registered Clinic [id number] PETER REYES MD 10/20/2018 [facility] Departed Emergency Room [id number] BEATRIS DELONG MD 11/16/2018 11/16/2018 [facility] Procedures Procedure Code Date Perfomer Comments Source Psychotherapy 45 (38-52*) min - 73602 (with patient and/or family member) 07908 08/19/2018 Robert LASCAT [facility] INTV Indiv - 34253 08028 07/26/2018 Montanez SHOE ASSOCIATE [facility] HEMOGLOBIN A1C - In House 31130 07/14/2018 Meir RUIZ (res) [facility] Diagnostic evaluation (no medical) - 66583 02551 07/14/2018 Robert CISNEROS-SCAT [facility] Glucose Stick 03458 06/16/2018 Meir RUIZ (res) [facility] evaluation with medical - 12679 85849 04/23/2018 Kamini RUIZ [facility] Magnetic resonance imaging of brain without contrast [id number] 04/15/2018 [facility] CT angiography of chest [id number] 04/14/2018 [facility] Computed tomography of brain without radiopaque contrast [id number] 04/14/2018 [facility] Computed tomography angiography of abdomen and pelvis without then withcontrast [id number] 04/14/2018 [facility] BMP POC 55108 05/25/2017 Unknown [facility] TROPONIN I POC 61443 05/25/2017 Unknown [facility] 12 LEAD EKG 70797 05/25/2017 Rai [facility] Hernia repair [id number] [facility] Knee joint operation [id number] [facility] Wrist reconstruction [id number] [facility] Assessment and Plan Assessment and Plan Date Source Extracted from:Title: CCU Progress Note Author: Perfecto Singh MD Date: 12/01/16 Impression and Plan 46 yo M PMH HTN, HLD, PTSD, anxiety, NV x3 s/p PCI c/o substernal chest pain/pressure, nausea, SOB, L arm numbness. Transferred here from [facility]SH for concern for ACS. CV #Chest pain - Pt still w/ active CP after nitro and morphine at OSH - Given ASA, 100 mg lovenox at OSH - H/o NV, intermittently takes aspirin - TTE pending - Trop neg x 3 - Aspirin/plavix daily starting tomorrow - Stress test today #HTN - Continue home lisinopril, metoprolol Code: Full Diet: NPO for possible cath Dispo: Pending echo and stress Perfecto Singh MD, MPH Emergency Medicine, PGY-1 # [id number] Extracted from:Title: [facility]U History and Physical Author: Jack Núñez MD Date: 11/30/16 Patient: ORIANA MONTILLA## Age: 46 years Sex: Male : 1970 Associated Diagnoses: None Author: Jack Núñez MD Chief Complaint "My chest hurts." History of Present Illness 46 yo M PMH HTN, HLD, PTSD, anxiety, NV x3 s/p PCI c/o substernal chest pain/pressure, [...] get aspirin every day. Last saw his accounting systems analyst > 1 yr ago. Review of Systems [...] available Histories Past Medical History: Resolved Hypertension ([id number]): Resolved. Chest pain (62388807): Resolved. PTSD (post-traumatic stress disorder) (413488243): Resolved. Family History: COPD Mother Heart attack Father Mother Cardiac arrest Father Procedure history: Knee joint operation ([id number]). Wrist reconstruction (930618559). Hernia repair (84985400). Social History Social and Psychosocial Habits Substance [...] Normal range of motion. Integumentary: Warm, Dry, [place], Intact. Neurologic: Alert, Oriented. Cognition and Speech: Oriented, Speech clear and coherent. Psychiatric: Cooperative, Appropriate mood and affect. Review / Management Results review: No qualifying data available. Impression and Plan 46 yo M PMH HTN, HLD, PTSD, anxiety, NV x3 s/p PCI c/o substernal chest pain/pressure, nausea, SOB, L arm numbness. Transferred here from OSH for concern for ACS. CV #Chest pain - Pt still w/ active CP after nitro and morphine at OSH - Given ASA, 100 mg lovenox at OSH - H/o NV, intermittently takes aspirin - TTE pending - [...] prior MIs Please obtain TTE today 12/01/2016 [facility] Plan of Care Plan of Care Date Source Discharge Date 11/16/18 5:07pm Disposition AGAINST MEDICAL ADVICE Condition at Discharge Other Forms Provided Work/School Excuse Prescriptions See Medication Section 11/16/2018 [facility] IMM Influenza Seasonal May to October (>/=19 yrs) 05/10/2018 [facility] Discharge Date 05/06/18 6:33am Disposition HOME, SELF-CARE Condition at Discharge Stable Instructions/Education Provided Abrasion Angina Contusion Fall Prevention Forms Provided Work/School Excuse Prescriptions See Medication Section Referrals PAULA HALE Order Date: Call for an appointment Address: [address] [place] [address] [address] [place] [address] Additional Instructions/Education FOLLOW-UP WITH YOUR CHIEF ENGINEER DRILLING AND RECOVERY 05/06/2018 [facility] Discharge Date 04/16/18 3:13pm Disposition HOME, SELF-CARE Instructions/Education Provided Cardiac Disease Risk Factors Prescriptions See Medication Section Additional Instructions/Education FOLLOW UP WITH PSYCHIATRIST PLANNED DATES OF ADMISSION: 04/15/18 - 04/16/18 04/16/2018 [facility] Social History Social History Date Source No social history information available. 11/16/2018 [facility] Tobacco UseTypesPacks/DayYears UsedDate Never Assessed Sex Assigned at BirthDate Recorded Not on file 05/15/2018 [facility] Social History TypeResponse Substance Abuse Use: Past. [...] Yes; Reg Smoking Cessation Counseling Yes 11/30/2016 [facility] Family History No Data Provided for This Section Advance Directives Order Name Results Value Date Source Advance Directives Advance Directives Directive Response Recorded Date/Time Does the patient have an advance directive? No 04/15/18 7:50am Do you have a Directive to Physician? No 11/16/18 5:22pm Do you have a Medical Power of Contact Center Rep? No 11/16/18 5:22pm Do you have an [...] rights and responsibilities? Yes 11/16/18 5:22pm 11/16/2018 [facility] Advance Directives Advance Directives Directive Response Recorded Date/Time Does the patient have an advance directive? No 04/15/18 7:50am If yes, is advance directive on file with [facility]? No 04/14/18 11:03pm If not on file with [facility] will patient provide a copy? No 04/14/18 11:03pm Do you have a Directive to Physician? No 05/06/18 2:15am Do you have a Medical Power of Contact Center Rep? No 05/06/18 2:15am Do you have an [...] rights and responsibilities? Yes 05/06/18 2:15am 05/06/2018 [facility] Advance Directives Advance Directives Directive Response Recorded Date/Time Does the patient have an advance directive? No 04/15/18 7:50am If yes, is advance directive on file with [facility]? No 04/14/18 11:03pm If not on file with [facility] will patient provide a copy? No 04/14/18 11:03pm Do you have a Directive to Physician? No 04/14/18 11:04pm Do you have a Medical Power of Contact Center Rep? No 04/14/18 11:03pm Do you have an [...] rights and responsibilities? Yes 04/14/18 11:03pm 04/16/2018 [facility] Functional Status No Data Provided for This Section
[2019-03-30] MEDS: INSULIN REGULAR, HUMAN 100 UNIT/1 ML 3ML VIAL SQ SCH (21:06)
[2019-03-30 22:00] VITALS: BP 122/82
--- NOTE | 2019-03-30 22:00 | NUR ---
RECEIVED REPORT FROM KAYLEN SWEENEY NURSE. PATIENT ARRIVED VIA STRETCHER. PATIENT WAS IN NO DISTRESS. CALL LIGHT WITHIN REACH.
[2019-03-30 22:17] VITALS: BP 122/82
--- NOTE | 2019-03-30 23:50 | NUR ---
Called Dr. Clark office and asked for pain medication. Waiting for Dr. Clark to call back.
[2019-03-31] VITALS (9 sets, daily range): BP systolic 104–141; BP diastolic 68–96
[2019-03-31] MEDS ORDERED: OMEPRAZOLE40 MG PO (00:08)
[2019-03-31] MEDS ORDERED: PRAZOSIN HCL1 MG PO (00:08)
[2019-03-31] MEDS ORDERED: FLOMAX0.4 MG PO (00:13)
[2019-03-31] MEDS ORDERED: ALPRAZOLAM ER2 MG (00:13)
[2019-03-31] MEDS ORDERED: TOPIRAMATE100 MG PO (00:13)
[2019-03-31] MEDS ORDERED: MECLIZINE HCL12.5 MG PO (00:13)
--- NOTE | 2019-03-31 01:06 | NUR ---
Called and talked to answering service at Dr. Clark office again. Talked to Breezy and told him that I never received a call back from the doctor and the patient wants something for his pain
[2019-03-31 02:36] LABS: CREATINE KINASE 47 IU/L (30-200)
[2019-03-31 05:28] LABS: BASOPHILS % 0.4 % (0.0-1.0); EOSINOPHILS % 0.9 % (0.0-6.0); HEMATOCRIT 31.2 % (38.2-49.6); HEMOGLOBIN 10.1 g/dL (14.0-18.0); LYMPHOCYTES # (AUTO) 1.4 (1.0-3.2); LYMPHOCYTES % 30.6 % (18.0-39.1); MEAN CORPUSCULAR HEMOGLOBIN 30.2 pg (28-32); MEAN CORPUSCULAR HGB CONC 32.4 g/dL (31-35); MEAN CORPUSCULAR VOLUME 93.4 fL (81-99); MONOCYTES # (AUTO) 0.3 (0.2-0.8); MONOCYTES % 5.7 % (4.4-11.3); NEUTROPHILS # (AUTO) 2.8 (2.1-6.9); NEUTROPHILS % 62.2 % (38.7-80.0); PLATELET COUNT 133 x10e3/uL (140-360); RED BLOOD COUNT 3.34 x10e6/uL (4.3-5.7); RED CELL DISTRIBUTION WIDTH 14.3 % (11.7-14.4)
[2019-03-31 05:49] LABS: CREATINE KINASE 44 IU/L (30-200)
--- NOTE | 2019-03-31 07:25 | NUR ---
GAVE REPORT TO ONCOMING NURSE. CALL LIGHT WITHIN REACH. PATIENT IN BED ASLEEP.
[2019-03-31] MEDS: INSULIN REGULAR, HUMAN 100 UNIT/1 ML 3ML VIAL SQ SCH ×4 (07:30→21:00)
[2019-03-31 07:34] LABS: ALBUMIN 3.2 g/dL (3.5-5.0); ALBUMIN/GLOBULIN RATIO 1.5 (0.8-2.0); ANION GAP 9.7 mmol/L (8-16); CALCIUM 9.2 mg/dL (8.4-10.2); CREATININE, SERUM 1.56 mg/dL (0.72-1.25); POTASSIUM 3.7 mmol/L (3.5-5.1)
[2019-03-31 07:37] LABS: LYMPHOCYTES % (MANUAL) 33 % (19-48); MONOCYTES % (MANUAL) 5 % (3.4-9.0); NEUTROPHILS % (MANUAL) 62 % (40-74); PLATELET ESTIMATE MODERATELY DECREASED; RBC MORPHOLOGY COMMENT NORMAL
[2019-03-31] MEDS ORDERED: TAMSULOSIN HCL 0.4 MG CAP PO SCH (09:00)
[2019-03-31] MEDS: HYDROCODONE/APAP 10MG-325MG TAB PO PRN ×3 (09:25→21:21)
[2019-03-31] MEDS: APIXAB 2.5 MG TABLET PO SCH ×2 (09:25→17:24)
[2019-03-31] MEDS ORDERED: ALBUTEROL/IPRATROPIUM 3 ML NEB NEB PRN (12:15)
--- NOTE | 2019-03-31 13:00 | History and Physical ---
CHIEF COMPLAINT: Recurrent episodes of passing out for more than a year as per the patient. HISTORY OF PRESENT ILLNESS: A 48-year-old pleasant white male with past medical history of multiple medical problems, who was admitted at [facility] last night with above complaints. As per the patient, he had episodes of passing out for few seconds, couple of times last one week. As per the patient, he is having this passing out problems for more than a year now. The patient has had multiple hospitalizations at [facility], where all his routine doctors that including creative technologist, Dr. Triny Pang and Pulmonary, Dr. Bell. As per the patient, he has had detailed workup done in the past for this multiple syncopal episodes. At present, the patient is lying comfortably in bed, in no apparent distress. No chest pain or shortness of breath. No nausea, vomiting, or diarrhea. No abdominal pain. No palpitations. No headaches. No hematemesis. No melena. No hematuria. No dysuria. No fever. No cough. No witnessed seizures. PAST MEDICAL HISTORY: 1. Diabetes mellitus type 2. 2. Hypertension. 3. Hyperlipidemia. 4. Depression with psychosis. 5. CAD, status post PTCA stent. 6. Left atrial thrombus. 7. History of PE in 2018. 8. COPD. 9. Morbid obesity. 10. Chronic low back pain. 11. Recurrent syncope. 12. Possible obstructive sleep apnea. The patient is awaiting sleep study for a long time, ordered by Pulmonary, Dr. Bell. OUTPATIENT PHYSICIANS: 1. Panama Hat Blocker, Dr. Triny Pang. 2. Neurology at [facility]. 3. Pulmonary, Dr. Bell. 4. Endocrine, Dr. Saunders. 5. Pain Management, Dr. Bedolla. 6. Psych, Dr. Lares in [place]. PAST SURGICAL HISTORY: 1. Bilateral knee surgeries. 2. Inguinal hernia surgery. 3. Right wrist surgery. FAMILY HISTORY: Mother with COPD, bipolar disorder, diabetes, hypertension, heart disease. Father diagnosed with hypertension, heart disease. SOCIAL HISTORY: Former smoker. No alcohol. No illicit drug use. ALLERGIES: PENICILLIN, TRAMADOL, MEDROL, CLINDAMYCIN, CODEINE PHOSPHATE, BUT THE PATIENT IS TAKING HYDROCODONE FOR LONG TIME WITH NO PROBLEMS. KETOROLAC, CEFDINIR, AND NAPROXEN. HOSPITALIZATIONS: Multiple hospitalizations at [facility] and at [facility]. REVIEW OF SYSTEMS: As per HPI. PHYSICAL EXAMINATION: GENERAL: The patient is alert, awake, and oriented x3, in no apparent distress, lying in bed. VITAL SIGNS: Temperature is 96, pulse is 60 per minute, respiratory rate is 18 per minute, blood pressure is 118/80, and saturation is 98%. No cyanosis. No icterus. No pallor. HEENT: Normocephalic, atraumatic. PERRLA plus. NECK: Soft and supple. No JVD. No carotid bruit. No lymphadenopathy. LUNGS: Air entry bilaterally equal. HEART: S1 and S2 present. No murmur, gallop, or rub. ABDOMEN: Soft, nontender. Bowel sounds plus. ROLL GRINDER OPERATOR: Alert, awake, and oriented x3. No focal deficits. EXTREMITIES: No cyanosis, no clubbing, no edema. Peripheral pulses palpable. No calf pain. LABORATORY DATA: White count 4.5, hemoglobin 10, hematocrit 31.2, platelets 133. Sodium 135, potassium 3.7, chloride 103, bicarb 26, BUN 14, creatinine on admission was 1.17, this morning is 1.56, glucose 136. LFTs noted. PT 13.6, INR 0.99, PTT 29.9. Urine, no infection. Chest x-ray shows minimal bibasilar haziness, could represent subsegmental atelectasis or mild aspiration. Brain CT shows no acute intracranial abnormalities, mild generalized cerebral volume loss. Cervical spine CT shows no acute osseous abnormality. EKG shows normal sinus rhythm. Incomplete RBBB, possible right ventricular hypertrophy. ASSESSMENT: 1. Recurrent multiple syncopal attacks. 2. History of diabetes mellitus. 3. Hypertension. 4. Coronary artery disease. 5. Pulmonary embolism. 6. Chronic obstructive pulmonary disease. 7. Chronic low back pain. PLAN: Admit the patient to med-tele. Cardiology consultation, Dr. Shine. Neurology consultation, Dr. Wilkinson. We will continue home medications. A 2D echo, carotid Doppler. Further care and treatment as per clinical course of the patient in the hospital. Discussed with the patient in detail. MD LYNDA Haque/BLAKEL /[id number]
[2019-03-31] MEDS: ALPRAZOLAM 1 MG TAB PO PRN ×2 (13:57→21:20)
[2019-03-31 14:43] LABS: ANION GAP 8.7 mmol/L (8-16); BLOOD UREA NITROGEN 12 mg/dL (7-26); BUN/CREATININE RATIO 11 (6-25); CALCIUM 9.3 mg/dL (8.4-10.2); CARBON DIOXIDE 24 mmol/L (22-29); CHLORIDE 105 mmol/L (98-107); CREATININE, SERUM 1.12 mg/dL (0.72-1.25); EST GLOMERULAR FILTRATION RATE > 60 ML/MIN (60-); GLUCOSE 138 mg/dL (74-118); POTASSIUM 3.7 mmol/L (3.5-5.1); SODIUM 134 mmol/L (136-145)
[2019-03-31 15:11] LABS: CREATINE KINASE 49 IU/L (30-200)
--- NOTE | 2019-03-31 15:36 | Consultation ---
DATE OF CONSULTATION: 03/31/2019 Neurology Consult Note HISTORY OF PRESENT ILLNESS: Mr. Welsh is a 48-year-old right-hand dominant man with an extensive past medical history, admitted to [facility] under observation status on March 30, 2019, for syncope. According to Mr. Welsh, he was standing, folding clothes, when he suddenly lost consciousness and fell to the ground. There had been no recent change in position; Mr. Welsh had been standing for approximately 30 minutes when he lost consciousness. The patient does report dizziness which he further describes as a vertiginous sensation, but this occurred 30 to 45 minutes prior to loss of consciousness. There was no chest pain or tightness, palpitations, shortness of breath, nausea, or epigastric rising sensation proceeding loss of consciousness. However, Mr. Welsh does report experiencing palpitations and shortness of breath prior to other syncopal events over the past year. As stated above, the patient suddenly lost consciousness and fell to the floor. Duration of unconsciousness is unknown. Mr. Welsh reports being found by his fiancee. There is no witnessed tonic or tonic-clonic activity, tongue biting, or bladder or bowel incontinence. Mr. Welsh was not postictal once he regained consciousness. Mr. Welsh was brought to the emergency center at [facility] for further evaluation of his symptoms. Upon arrival, the patient was afebrile with a blood pressure of 100/58 mmHg and a pulse of 70 beats per minute. A neurological examination was documented as being nonfocal. A CT of the brain without contrast performed in the emergency center did not show evidence of recent large territorial ischemia or hemorrhage. Mr. Welsh was subsequently admitted to [facility] under observation status for further evaluation and treatment of his symptoms. As alluded to above, Mr. Welsh has experienced multiple similar events over the past year. He has been hospitalized multiple times at [facility] and [facility]. He has undergone numerous diagnostic studies, all of which are reported to be normal/negative. Most recently, Mr. Welsh had a loop recorder implanted sometime within the last four months to evaluate for paroxysmal arrhythmia. It was previously thought the above described events may represent seizures. After one such events, while in the hospital, Mr. Welsh was prescribed Keppra 500 mg by mouth 3 times daily for seizure prophylaxis. However, the patient subsequently underwent neuroimaging studies as well as multiple EEGs, including prolonged video EEG monitoring for one week. All studies were reportedly normal/negative; there was no objective evidence of a seizure disorder. As a result, Mr. Welsh was taken off levetiracetam. The patient does take topiramate for weight loss. Mr. Welsh does not report a known history of febrile seizures. There is no known family history of seizures. There is no known prior head trauma resulting in loss of consciousness. There is no known prior meningitis or encephalitis. Mr. Welsh does report burning pain, tingling, and numbness over his feet and distal forelegs. Despite this, the patient reports he has never been told he has a peripheral neuropathy. However, the patient is taking gabapentin, a medication commonly prescribed for treatment of neuropathic pain. Mr. Welsh was diagnosed with diabetes mellitus approximately 2 years ago. He reports his diabetes mellitus is well controlled. REVIEW OF SYSTEMS: Shortness of breath, dizziness which is further described as a vertiginous sensation, syncope. Otherwise, a 12-point review of systems is negative. PAST MEDICAL HISTORY: Hypertension, hyperlipidemia, diabetes mellitus type 2, coronary artery disease, left atrial thrombus, chronic obstructive pulmonary disease, depression with psychosis, posttraumatic stress disorder, prior pulmonary embolus, morbid obesity, chronic low back pain, recurrent syncope, possible obstructive sleep apnea (sleep study pending). PAST SURGICAL HISTORY: Cardiac catheterization with stent placement, bilateral knee surgeries, inguinal hernia repair, right wrist surgery, loop recorder implantation. PAST HOSPITALIZATIONS: Surgeries/procedures as listed, numerous hospitalizations for syncope over the past one year. FAMILY MEDICAL HISTORY: The patient's father had hypertension and coronary artery disease. His mother had hypertension, diabetes mellitus, coronary artery disease, chronic obstructive pulmonary disease, and bipolar disorder. SOCIAL HISTORY: Mr. Welsh is engaged. He is currently unemployed. Mr. Welsh is a former smoker. The patient does not report current or prior alcohol or recreational drug use. HOME MEDICATIONS: Reviewed. Please see the extensive list of home medications documented in the electronic medical record. HOSPITAL MEDICATIONS: DuoNeb, Xanax, Eliquis, Lipitor, doxepin, [place], Humulin R, nortriptyline, Zofran, prazosin, tamsulosin. ALLERGIES: NSAIDS (SPECIFICALLY NAPROXEN AND KETOROLAC), PENICILLIN, CODEINE, METHYLPREDNISOLONE, TRAMADOL, CLINDAMYCIN, CEFDINIR. NO KNOWN FOOD ALLERGIES. NO KNOWN ALLERGIES TO LATEX. NO KNOWN ALLERGIES TO IODINE OR OTHER CONTRAST MATERIALS. PHYSICAL EXAMINATION: VITAL SIGNS: Height 72 inches, weight 285 pounds, BMI 38.7 kg/m2, blood pressure 140/88 mmHg, pulse 75 beats per minute, respiratory rate 20 breaths per minute, and oxygen saturation 99% on room air. GENERAL: The patient is awake and alert, does not appear distressed. Morbidly obese. HEENT: Normocephalic, atraumatic. Pupils are equal, round, and reactive to light. Moist mucous membranes. NECK: Supple. No appreciable thyromegaly. No appreciable carotid bruits. CARDIOVASCULAR: S1, S2, regular rate and rhythm. No murmurs, rubs, or gallops. RESPIRATORY: Clear to auscultation bilaterally. No wheezes, rhonchi, or rales. EXTREMITIES: The skin is warm and dry. No clubbing, cyanosis, or edema. The posterior tibial and dorsalis pedis pulses are 2+ and symmetric. SKIN: No rashes or lesions. NEUROLOGIC: Memory/Attention: The patient is awake and alert, oriented to person, place, time, and situation. Cranial Nerves: Cranial nerve I - not tested. Cranial nerve II, III, IV, and - pupils are equal and round, reactive briskly to light (from 4 mm to 2 mm). Extraocular movements intact. No nystagmus. Cranial nerve V - sensation to light touch and pinprick is intact in the bilateral V1 through V3 distributions. Strength in the temporalis and masseter muscles is within normal limits. Cranial nerve VII - the face is symmetric as are all facial movements. Strength is within normal limits. Cranial nerve VIII - hearing is intact to finger rub bilaterally. Cranial nerve 9, 10- the soft palate elevates equally and symmetrically. Cranial nerve XI - normal strength of the bilateral sternocleidomastoid and trapezius muscles. Cranial nerve 12-the tongue protrudes midline and moves symmetrically from [id number]. Strength: Bulk is normal. Strength is 5/5 in the bilateral deltoids, biceps, triceps, wrist flexors and extensors, finger flexors and extensors, intrinsic hand muscles, hip flexors, knee flexors and extensors, ankle dorsiflexion and plantar flexion, and intrinsic foot muscles. Tone is normal. DTRs: Deep tendon reflexes are 2+ and symmetric at the triceps, biceps, brachioradialis, and patellas. Deep tendon reflexes are trace and symmetric at the Achilles. Plantar responses are flexor bilaterally. Sensation: Sensation is intact to light touch and pinprick in both arms and both legs. Cerebellar: Vbxlyd-swoq-xipwiy and heel-vaz movements are intact without dysmetria or other impairment. Gait: Deferred. Speech: Spontaneous speech is normal without appreciable dysarthria or aphasia. Repetition is intact. Involuntary movements: None. Pronator Drift: None. LABORATORY DATA: The most recent comprehensive metabolic panel is significant for a creatinine of 1.56, estimated GFR 48, serum glucose of 136, total protein of 5.4, albumin of 3.2, and globulin of 2.2. B-natriuretic peptide 51.4. Cardiac enzymes are negative x3. CBC with differential and platelets reveals a white blood cell count of 4.57 with a normal differential. The hemoglobin and hematocrit are 10.1 and 31.2, respectively. The platelet count is 133. The coagulation profile is within normal limits. Urinalysis revealed slightly cloudy urine with moderate amorphous sediment, and moderate urine bacteria. DIAGNOSTIC STUDIES: Electrocardiogram 03/30/2019: Normal sinus rhythm at 64 beats per minute. Incomplete right bundle-branch block. Chest x-ray on 03/30/2019: Minimal bibasilar haziness could represent subsegmental atelectasis or mild aspiration. CT of the brain without contrast 03/30/2019: On my review, there is no evidence of recent or remote large territorial ischemia, hemorrhage, mass, or mass effect. There is mild diffuse cerebral atrophy, more than expected for the patient's age. There are no findings suggestive of chronic small vessel ischemic disease. Echocardiogram on 03/31/2019: Ejection fraction 60%. Concentric left ventricular hypertrophy. Trace mitral regurgitation. Bilateral carotid artery ultrasound with Doppler 03/31/2019: There is atherosclerosis without hemodynamically significant stenosis in the right external carotid artery. Otherwise, there are no abnormalities in either carotid artery system. Flow is antegrade in the bilateral vertebral arteries. ASSESSMENT AND PLAN: Mr. Welsh is a 48-year-old right-hand dominant man with an extensive past medical history, admitted to [facility] under observation status on March 30, 2019 following a syncopal episode. At present, the patient's neurological examination is nonfocal. His laboratory data and other diagnostic studies have been reviewed and are documented above. Based on the description of the episodes, it is unlikely Mr. Welsh experienced a seizure. Furthermore, the patient has previously undergone extensive neurological evaluation, including prolonged video EEG monitoring for one week. Taking all this into account, it is highly improbable Mr. Welsh has an underlying seizure disorder. By history and neurological examination, there is no evidence of neurodegenerative disorder, neuropathy, or other neurological disease which may be the underlying cause of the patient's multiple syncopal events. Thank you for this consultation. There are no recommendations from the Neurology Service at this time. The patient may be discharged per the primary service. Marion Wilkinson MD CP/BLAKEL /[id number] MTDD
[2019-03-31] MEDS ORDERED: ONDANSETRON HCL 4 MG ORAL DISINTEGRATING TAB PO PRN (16:00)
--- NOTE | 2019-03-31 17:32 | Consultation ---
DATE OF CONSULTATION: 03/31/2019 Cardiology consultation REQUESTING PHYSICIAN: Kendall Calrk MD REASON FOR CONSULTATION: Syncope. HISTORY OF PRESENT ILLNESS: This is a 48-year-old man with history of hypertension, hyperlipidemia, diabetes mellitus, congestive heart failure, prior myocardial infarction, COPD, and PTSD who presents with complaints of recurrent syncope. The patient reports he has been having episodes of syncope for months. He describes these episodes occurring typically at rest while he is either sitting or standing not with exertion. The patient reports he has an episode approximately once a week. The patient stated he had an episode of syncope yesterday. This occurred while he was standing and folding his clothes. He had been upright for approximately 30 minutes. He describes palpitations and lightheadedness prior to his episode, but denies any chest pain or visual changes. He states he found himself waking up on the floor, this was unwitnessed. He denies any tongue biting or bowel or bladder incontinence. He otherwise denies any edema, orthopnea, or PND. Of note, he has had prior workup for these complaints before and has an ILR in place. In addition, the patient reports he did have an episode of shortness of breath earlier today, although denies any other cardiac symptoms. REVIEW OF SYSTEMS: Negative except as per HPI. PAST MEDICAL HISTORY: 1. Hypertension. 2. Hyperlipidemia. 3. Diabetes mellitus. 4. Reported myocardial infarction x2. 5. Congestive heart failure. 6. Chronic obstructive pulmonary disease. 7. PTSD. 8. Obesity. 9. Reported history of pulmonary emboli in 2018. PAST SURGICAL HISTORY: 1. Left knee surgery. 2. Bilateral hernia surgery. 3. Left wrist surgery. ALLERGIES: PLEASE SEE EMR. MEDICATIONS: Please see medication list. SOCIAL HISTORY: He quit smoking, previously smoked one pack a day for six years. Denies any drugs but does drink alcohol on occasion. FAMILY HISTORY: Pertinent for mother who of myocardial infarction at the age of 44. PHYSICAL EXAMINATION: VITAL SIGNS: Temperature 96.2 degrees, pulse 68, respiratory rate 18, blood pressure 140/88, and oxygen saturation 99% on room air. GENERAL: Obese woman, in no acute distress. Awake and alert. HEENT: Normocephalic, atraumatic. Pupils equal. No scleral icterus. NECK: Supple. No thyromegaly or cervical lymphadenopathy. No carotid bruits. LUNGS: Clear to auscultation bilaterally. No wheeze or crackles. CARDIOVASCULAR: Normal rate. Regular rhythm. No murmur. Normal S1 and S2. ABDOMEN: Soft nontender. EXTREMITIES: No edema. NEUROLOGIC: Nonfocal exam. LABORATORY DATA: WBC 4.57, hemoglobin 10.1, hematocrit 31.2, platelets 133. Sodium 134, potassium 3.7 chloride 105, CO2 of 24, BUN 12, creatinine 1.12, troponin less than 0.001. TELEMETRY: Normal sinus rhythm. EKG normal sinus rhythm. Incomplete right bundle-branch block, possible right ventricular hypertrophy. IMPRESSION: 1. Recurrent syncope. 2. Diabetes mellitus. 3. Hypertension. 4. Hyperlipidemia. 5. History of coronary artery disease with myocardial infarction x2. 6. Reported history of congestive heart failure. 7. Chronic obstructive pulmonary disease. 8. Posttraumatic stress disorder. 9. History of pulmonary embolism. RECOMMENDATIONS: The patient has ruled out for myocardial infarction with serial cardiac biomarkers. We will have ILR interrogated. Monitor patient on telemetry while admitted. Carotid Doppler has been ordered for further evaluation. Check orthostatic vitals. Further recommendations pending test results. Thank you for this consult. We will continue to follow. Dolores Hernandez MD ABS/MODL /[id number]
--- NOTE | 2019-03-31 18:02 | Consultation ---
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 He has had multiple episodes of dizziness and passing out. They occurred frequently a year ago then resolved and then again returned. He has had extensive workup apparently at [facility] in the [facility]. He has a history of adult onset diabetes, hypertension, hyperlipidemia, depression, coronary artery disease, pulmonary emboli, on Eliquis in 2018; coronary stent placement, atrial thrombus, and presumed obstructive sleep apnea. ALLERGIES: HE IS ALLERGIC TO PENICILLIN, TORADOL, AND TYLENOL NO.3. MEDICATIONS: Multiple medications includin. Plavix. 2. Neurontin. 3. Insulin. 4. Lisinopril. 5. Meclizine. 6. Metformin. 7. Metoprolol. 8. Prilosec. 9. Nitroglycerin. 10. Topamax. 11. Valium. 12. Paxil. 13. Viibryd. PAST SURGICAL HISTORY: He has had fractures of the wrist and surgery on the knee, and hernia repairs. SOCIAL HISTORY: Nonsmoker. No alcohol. Born in [place], [place]. FAMILY HISTORY: Positive for diabetes mellitus. PHYSICAL EXAMINATION: GENERAL: Dyspneic today. It sounds as though he was breathing very shallowly and unable to control his respirations. He is a really tall, white male, in no acute distress. VITAL SIGNS: Temperature 96.7, pulse 58, and blood pressure 104/68. HEENT: Head, normocephalic and atraumatic. Eyes, extraocular movements intact. LUNGS: Clear. HEART: Regular rhythm. ABDOMEN: Nontender. EXTREMITIES: Not edematous. There are abrasions noted from the knee. Evidence of anemia, normocytic normochromic. He has anemia of chronic disease. Moderately elevated lactic acid, etiology is unclear. Evidence of syncopal episode proceed with orthostatic vital signs, exclude autonomic instability in the phase of diabetes. Neurology evaluation is underway for possibility of seizure disorder. Also recommend a ventilation/perfusion lung scan. CT scans have been negative in the past. Continue to control his diabetes, reassurance, screening spirometry. Asthma seems unlikely. Thank you for this kind referral. MD ALEXANDRA Shelby/MODL /[id number]
--- NOTE | 2019-03-31 19:03 | NUR ---
Received report from previous nurse. call light within reach. patient in bed.
[2019-03-31] MEDS ORDERED: ATORVASTATIN 20 MG TAB PO SCH (21:00)
[2019-03-31] MEDS ORDERED: DOXEPIN HCL 25 MG CAP PO SCH (21:00)
[2019-03-31] MEDS ORDERED: PRAZOSIN HCL 1 MG CAP PO SCH (21:00)
[2019-03-31] MEDS ORDERED: NORTRIPTYLINE HCL 25 MG CAP PO SCH (21:00)
[2019-03-31] MEDS ORDERED: ATORVASTATIN 40 MG TAB PO SCH (21:00)
--- NOTE | 2019-03-31 22:00 | NUR ---
patient left via wheelchair to radiology for VQ lung scan. Patient is A&Ox3.
--- NOTE | 2019-03-31 22:33 | NUR ---
Patient came back from radiology via wheelchair. A&Ox3.
[2019-04-01] VITALS: BP 133/79
--- NOTE | 2019-04-01 00:11 | Diagnostic Imaging Report ---
EXAM: VENTILATION PERFUSION LUNG SCAN INDICATION: Syncope COMPARISON: Chest radiograph 03/30/2019 DISCUSSION: Xenon-133 gas 19 mCi was administered via inhalation. Dynamic images of the lungs in the posterior projection were obtained through single breath and washout phases. Distribution of tracer activity appears diffuse and symmetric throughout the lungs but overall activity is low/noisy possibly due to photon attenuation from patient body habitus. Washout is within normal limits although evaluation of wall sound is limited due to low/noisy initial activity. Perfusion images of the lungs in multiple projections were obtained following intravenous administration of 7 mCi of Tc-99m MAA. Distribution of tracer within normal limits throughout the lungs. There are no segmental perfusion defects of any size. The perfusion images are well matched to the ventilation images, although ventilation images are slightly limited given low/noisy activity. The contours of the lungs are well demarcated. The cardiac silhouette is normal. IMPRESSION: Scan findings represent a LOW probability for acute pulmonary embolic disease based on the PIOPED II criteria. Signed by: Moi Bautista DO on 04/01/2019 12:07 AM
[2019-04-01 04:00] VITALS: BP 115/70
[2019-04-01 05:51] LABS: BASOPHILS % 0.4 % (0.0-1.0); EOSINOPHILS % 0.9 % (0.0-6.0); HEMATOCRIT 32.6 % (38.2-49.6); HEMOGLOBIN 10.6 g/dL (14.0-18.0); LYMPHOCYTES # (AUTO) 1.2 (1.0-3.2); LYMPHOCYTES % 24.7 % (18.0-39.1); MEAN CORPUSCULAR HEMOGLOBIN 30.3 pg (28-32); MEAN CORPUSCULAR HGB CONC 32.5 g/dL (31-35); MEAN CORPUSCULAR VOLUME 93.1 fL (81-99); MONOCYTES # (AUTO) 0.2 (0.2-0.8); MONOCYTES % 5.2 % (4.4-11.3); NEUTROPHILS # (AUTO) 3.2 (2.1-6.9); NEUTROPHILS % 68.6 % (38.7-80.0); PLATELET COUNT 114 x10e3/uL (140-360); RED CELL DISTRIBUTION WIDTH 14.3 % (11.7-14.4)
[2019-04-01] MEDS: HYDROCODONE/APAP 10MG-325MG TAB PO PRN (05:55)
[2019-04-01 06:05] LABS: ALANINE AMINOTRANSFERASE 15 IU/L (0-55); ALBUMIN 3.2 g/dL (3.5-5.0); ALBUMIN/GLOBULIN RATIO 1.3 (0.8-2.0); ALKALINE PHOSPHATASE 48 IU/L (40-150); ANION GAP 12.4 mmol/L (8-16); BLOOD UREA NITROGEN 13 mg/dL (7-26); BUN/CREATININE RATIO 13 (6-25); CARBON DIOXIDE 24 mmol/L (22-29); CHLORIDE 107 mmol/L (98-107); CREATININE, SERUM 0.99 mg/dL (0.72-1.25); EST GLOMERULAR FILTRATION RATE > 60 ML/MIN (60-); GLUCOSE 114 mg/dL (74-118); POTASSIUM 3.4 mmol/L (3.5-5.1); SODIUM 140 mmol/L (136-145)
--- NOTE | 2019-04-01 07:10 | NUR ---
Gave report to oncoming nurse. call light within reach. patient in bed.
[2019-04-01] MEDS: INSULIN REGULAR, HUMAN 100 UNIT/1 ML 3ML VIAL SQ SCH (07:30)
[2019-04-01 08:20] VITALS: BP 151/94
[2019-04-01 08:37] VITALS: BP 100/73
[2019-04-01 08:38] VITALS: BP 112/70
[2019-04-01] MEDS ORDERED: POTASSIUM CHLORIDE 20 MEQ TAB CR PO ONE (09:00)
[2019-04-01] MEDS: APIXAB 2.5 MG TABLET PO SCH (09:11)
[2019-04-01] MEDS: ALPRAZOLAM 1 MG TAB PO PRN (10:12)
[2019-04-01 10:52] VITALS: BP 112/70
--- NOTE | 2019-04-01 11:05 | NUR ---
ORDERS REC;D FOR SPLIT NIGHT STUDY IF NO SLEEP APNEA NOTED TO PROCEED WITH [facility] DEEJAY CALLED [facility] IN [facility] FAXED ORDERS TO [facility] AT [phone] [facility] WILL CALL PT AND SCHEDULE
--- NOTE | 2019-04-01 11:09 | Progress Note ---
DATE: 04/01/2019 Cardiology Progress Note SUBJECTIVE: The patient denies chest pain or shortness of breath. OBJECTIVE: VITAL SIGNS: Temperature 96.5 degrees, pulse 59, respiratory rate 19, blood pressure 100/73, oxygen saturation 98%. GENERAL: Obese gentleman, in no acute distress. Awake and alert. LUNGS: Clear to auscultation bilaterally. No wheezes or crackles. CARDIOVASCULAR: Normal rate, regular rhythm. No murmur. Normal S1, S2. ABDOMEN: Soft, nontender. EXTREMITIES: No edema. CARDIAC MEDICATIONS: Apixaban 2.5 mg p.o. b.i.d., atorvastatin 80 mg p.o. at bedtime. LABORATORY DATA: WBC 4.66, hemoglobin 10.6, hematocrit 32.6, platelets 114. Sodium 140, potassium 3.4, chloride 107, CO2 of 24, BUN 13, creatinine 0.99. TELEMETRY: Normal sinus rhythm. ILR interrogation. No arrhythmia noted. One episode of sinus tachycardia. VQ scan, low probability for acute pulmonary embolic disease. Carotid Doppler, mild atherosclerotic plaque. No hemodynamically significant stenosis. IMPRESSION: 1. Recurrent syncope. 2. Diabetes mellitus. 3. Hypertension. 4. Hyperlipidemia. 5. History of coronary artery disease with myocardial infarction x2. 6. Reported history of congestive heart failure. 7. Chronic obstructive pulmonary disease. 8. Posttraumatic stress disorder. 9. History of pulmonary embolism. RECOMMENDATIONS: The patient has ruled out for myocardial infarction with serial cardiac biomarkers. ILR did not reveal any arrhythmias to explain patient's syncope. Carotid Doppler was likewise unrevealing. Echocardiogram demonstrated normal LV systolic function. No further cardiac evaluation is indicated at this time. 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 Thank you for this consult. We will continue to follow. Dolores Hernandez MD ABS/MODL /[id number]
--- NOTE | 2019-04-01 11:45 | NUR ---
reviewed dc and follow up instructions with pt, verbalized understanding. pt aware of outpatient follow ups. vs stable.
--- NOTE | 2019-04-04 13:05 | Pulmonary Function Test ---
DATE OF STUDY: 03/31/2019 REFERRING PHYSICIAN: NAME OF STUDY: Spirometry Report FINDINGS: Essentially normal study. Forced vital capacity 4.15 L, 81% of predicted, FEV1 of 3.31 L, 82%, FEV1/FVC ratio 80%, FEF 25-75 of 88%. Normal spirometry. MD ALEXANDRA Shelby/MODL /[id number]
== END 2019-04-01 11:45 | disposition home or self-care (01) ==
LOC: ER 15:59 → ERHOLD 20:45 → IMCU 21:59
PROVIDERS: ADMIT Internal Medicine; ATTEND Internal Medicine
DX: R55 Syncope and collapse (principal); E11.9 Type 2 diabetes mellitus without complications; I25.2 Old myocardial infarction; Z88.5 Allergy status to narcotic agent; Z88.0 Allergy status to penicillin; Z88.8 Allergy status to other drugs, medicaments and biological substances; Z83.3 Family history of diabetes mellitus; Z82.49 Family history of ischemic heart disease and other diseases of the circulatory system; I25.10 Atherosclerotic heart disease of native coronary artery without angina pectoris; J44.9 Chronic obstructive pulmonary disease, unspecified; M54.9 Dorsalgia, unspecified; Z87.891 Personal history of nicotine dependence; Z95.5 Presence of coronary angioplasty implant and graft; E78.5 Hyperlipidemia, unspecified; I11.0 Hypertensive heart disease with heart failure; I50.9 Heart failure, unspecified; F43.10 Post-traumatic stress disorder, unspecified; E66.9 Obesity, unspecified; Z68.38 Body mass index [BMI] 38.0-38.9, adult; Z86.711 Personal history of pulmonary embolism; D63.8 Anemia in other chronic diseases classified elsewhere
CPT/HCPCS: 36415 ×2; 70450; 71045; 72125; 78582; 80048; 80053 ×3; 81001; 82550 ×2; 82553 ×2; 82948 ×2; 83605; 83880; 84484 ×2; 85025 ×3; 85610; 85730; 93005; 93306; 93880; 94060; 94660 ×2; 99285; A9540; A9558; G0378 ×3; J7030

== ENCOUNTER → 2021-01-08 | Day surgery (SDC) | payer MEDICARE ==
[2021-01-03 10:20] LABS: BASOPHILS % 0.7 % (0.0-1.0); EOSINOPHILS # (AUTO) 0.1 (0.0-0.4); HEMATOCRIT 40.2 % (38.2-49.6); HEMOGLOBIN 13.6 g/dL (14.0-18.0); LYMPHOCYTES # (AUTO) 1.3 (1.0-3.2); LYMPHOCYTES % 20.8 % (18.0-39.1); MEAN CORPUSCULAR HEMOGLOBIN 30.6 pg (28-32); MEAN CORPUSCULAR HGB CONC 33.8 g/dL (31-35); MEAN CORPUSCULAR VOLUME 90.5 fL (81-99); MONOCYTES # (AUTO) 0.5 (0.2-0.8); MONOCYTES % 7.8 % (4.4-11.3); NEUTROPHILS # (AUTO) 4.3 (2.1-6.9); NEUTROPHILS % 69.4 % (38.7-80.0); PLATELET COUNT 180 x10e3/uL (140-360); RED BLOOD COUNT 4.44 x10e6/uL (4.3-5.7)
[~2021-01-08] MED LIST changes: +ALPRAZOLAM ER2 MG; +FLOMAX0.4 MG PO; +FLUOXETINE HCL20 MG PO; +INVEGA1.5 MG PO; +JANUVIA100 MG PO; +MECLIZINE HCL12.5 MG PO; +METOPROLOL SUCC50 MG PO; +OMEPRAZOLE40 MG PO; +OR PHACO EYE KIT ONE; +PRAZOSIN HCL1 MG PO; +PREOP PHACO EYE KIT ONE; +PROVENTIL HFA6.7 GM INH; +TOPIRAMATE100 MG PO
[2021-01-08 12:45] VITALS: BP 137/95
== END | disposition home or self-care (01) ==
LOC: OR 10:50
PROVIDERS: ATTEND Ophthalmology
DX: H25.11 Age-related nuclear cataract, right eye (principal); G47.33 Obstructive sleep apnea (adult) (pediatric); I25.10 Atherosclerotic heart disease of native coronary artery without angina pectoris; I25.2 Old myocardial infarction; I10 Essential (primary) hypertension; E11.9 Type 2 diabetes mellitus without complications; R00.1 Bradycardia, unspecified; I45.10 Unspecified right bundle-branch block; Z88.6 Allergy status to analgesic agent; Z88.0 Allergy status to penicillin; Z88.8 Allergy status to other drugs, medicaments and biological substances; Z01.810 Encounter for preprocedural cardiovascular examination; Z01.812 Encounter for preprocedural laboratory examination; Z20.822 Contact with and (suspected) exposure to COVID-19; Z79.84 Long term (current) use of oral hypoglycemic drugs
CPT/HCPCS: 36415 ×2; 66984; 82948; 85025; 93005; U0002; V2632

== ENCOUNTER → 2021-02-12 | Day surgery (SDC) | payer MEDICARE ==
[~2021-02-12] MED LIST changes: +FENTANYL CITRATE/PF 100MCG/2 ML INJ ONE; +MIDAZOLAM HCL 2 MG/2 ML VIAL ONE
[2021-02-12 14:30] VITALS: BP 120/78
== END | disposition home or self-care (01) ==
LOC: OR 12:11
PROVIDERS: ATTEND Ophthalmology
DX: H25.12 Age-related nuclear cataract, left eye (principal); G47.33 Obstructive sleep apnea (adult) (pediatric); I25.10 Atherosclerotic heart disease of native coronary artery without angina pectoris; J44.9 Chronic obstructive pulmonary disease, unspecified; I45.10 Unspecified right bundle-branch block; M54.9 Dorsalgia, unspecified; I25.2 Old myocardial infarction; I11.0 Hypertensive heart disease with heart failure; I50.9 Heart failure, unspecified; E66.9 Obesity, unspecified; E11.9 Type 2 diabetes mellitus without complications; F17.200 Nicotine dependence, unspecified, uncomplicated; Z79.84 Long term (current) use of oral hypoglycemic drugs
CPT/HCPCS: 36415; 66984; 82948; J2250; J3010; V2632

== ENCOUNTER 2021-03-31 08:27 | Emergency (ER) | payer MEDICARE ==
[~2021-03-31] VITALS: Ht 182.9 cm; Wt 129.3 kg
[~2021-03-31 08:27] MED LIST changes: -FENTANYL CITRATE/PF 100MCG/2 ML INJ ONE; -MIDAZOLAM HCL 2 MG/2 ML VIAL ONE; -OR PHACO EYE KIT ONE; -PREOP PHACO EYE KIT ONE
[2021-03-31] MEDS ORDERED: SODIUM CHLORIDE 0.9% 1000ML 1,000 ML IV STA (08:52)
[2021-03-31] MEDS ORDERED: HYDROMORPHONE 1MG/1ML INJ IV NR (09:00)
[2021-03-31] MEDS ORDERED: ONDANSETRON HCL INJ 2MG/ML 2ML 2 MG/ML VIAL IV NR (09:00)
[2021-03-31 09:33] LABS: BASOPHILS % 0.4 % (0.0-1.0); EOSINOPHILS # (AUTO) 0.1 (0.0-0.4); EOSINOPHILS % 0.7 % (0.0-6.0); HEMATOCRIT 41.8 % (38.2-49.6); HEMOGLOBIN 14.2 g/dL (14.0-18.0); LYMPHOCYTES # (AUTO) 1.2 (1.0-3.2); LYMPHOCYTES % 17.1 % (18.0-39.1); MEAN CORPUSCULAR HEMOGLOBIN 32.3 pg (28-32); MONOCYTES # (AUTO) 0.3 (0.2-0.8); MONOCYTES % 3.8 % (4.4-11.3); NEUTROPHILS # (AUTO) 5.5 (2.1-6.9); NEUTROPHILS % 77.6 % (38.7-80.0); PLATELET COUNT 164 x10e3/uL (140-360); RED CELL DISTRIBUTION WIDTH 14.3 % (11.7-14.4)
[2021-03-31 09:55] LABS: INR 0.91; PROTHROMBIN TIME 12.5 seconds (11.9-14.5)
[2021-03-31 10:06] LABS: ALANINE AMINOTRANSFERASE 15 IU/L (0-55); ALBUMIN 3.9 g/dL (3.5-5.0); ALBUMIN/GLOBULIN RATIO 1.4 (0.8-2.0); ALKALINE PHOSPHATASE 32 IU/L (40-150); AMYLASE 30 U/L (25-125); BLOOD UREA NITROGEN 12 mg/dL (7-26); BUN/CREATININE RATIO 11 (6-25); CALCIUM 9.2 mg/dL (8.4-10.2); CARBON DIOXIDE 22 mmol/L (22-29); CHLORIDE 107 mmol/L (98-107); CREATINE KINASE 35 IU/L (30-200); CREATININE, SERUM 1.05 mg/dL (0.72-1.25); EST GLOMERULAR FILTRATION RATE 75 ML/MIN (60-); GLUCOSE 97 mg/dL (74-118); LIPASE 42 U/L (8-78); MAGNESIUM 1.9 MG/DL (1.3-2.1); SODIUM 139 mmol/L (136-145)
[2021-03-31] MEDS ORDERED: SODIUM CHLORIDE 0.9% 50ML 50 ML ONE (10:30)
[2021-03-31] MEDS ORDERED: IOPAMIDOL 370 MG/ML 200 ML INFUS..BTL INJ ONE (10:30)
[2021-03-31 10:52] LABS: AMPHETAMINES SCREEN,URINE NEGATIVE (NEGATIVE); PHENCYCLIDINE SCREEN,URINE NEGATIVE (NEGATIVE)
[2021-03-31 10:53] LABS: BENZODIAZEPINES SCREEN,URINE POSITIVE (NEGATIVE)
[2021-03-31 10:54] LABS: CLARITY,URINE CLEAR (CLEAR); COLOR,URINE YELLOW (YELLOW)
[2021-03-31 10:55] LABS: LEUKOCYTE ESTERASE ,URINE NEGATIVE (NEGATIVE); NITRITE,URINE NEGATIVE (NEGATIVE); PROTEIN,URINE DIPSTICK NEGATIVE (NEGATIVE)
[2021-03-31 10:56] LABS: KETONES,URINE NEGATIVE (NEGATIVE); URINE UROBILINOGEN 0.2 mg/dL (0.2 - 1)
[2021-03-31 11:59] LABS: BACTERIA,URINE RARE /HPF; EPITHELIAL CELLS,URINE FEW /LPF; RBC,URINE 0-5 /HPF (0-5); WBC,URINE (MAN) 0-5 /HPF (0-5)
== END 2021-03-31 14:30 | disposition home or self-care (01) ==
LOC: ER 09:00
DX: R10.11 Right upper quadrant pain (principal); R11.0 Nausea; G89.29 Other chronic pain; I10 Essential (primary) hypertension; E11.9 Type 2 diabetes mellitus without complications; J44.9 Chronic obstructive pulmonary disease, unspecified; I50.9 Heart failure, unspecified; E78.5 Hyperlipidemia, unspecified; G40.909 Epilepsy, unspecified, not intractable, without status epilepticus; F43.10 Post-traumatic stress disorder, unspecified; I25.2 Old myocardial infarction; Z20.822 Contact with and (suspected) exposure to COVID-19
CPT/HCPCS: 36415; 71045; 74177; 80053; 80307; 81001; 82150; 82550; 82553; 83690; 83735; 84484; 85025; 85610; 85730; 93005; 99284; C9113; J1170; J2405; J7030; Q9967; U0002